=== PATIENT | male | born 1955 | race Hispanic/Latino ===

== ENCOUNTER 2018-09-14 20:15 | Emergency (ER) | payer OTHER ==
[2018-09-14 21:08] LABS: Absolute Lymphocytes (CBC) 1.1 K/uL (0.7-4.9); Basophils % 2.2 % (0-1.3); Eosinophils % 5.8 % (0-4.4); Hematocrit 33.6 % (39.6-49.0); MPV 9.9 fL (7.6-11.3); Monocytes % 9.2 % (3.3-12.3); Protime INR 1.03; RBC Red Blood Cell Count 3.63 M/uL (4.33-5.43)
[2018-09-14 21:27] LABS: Albumin 3.8 g/dL (3.4-5.0); Bilirubin Direct 0.2 mg/dL (0-0.2); Bilirubin Total 0.5 mg/dL (0.2-1.0); Magnesium 2.3 mg/dL (1.8-2.4); Potassium 3.6 mmol/L (3.5-5.1); Troponin (Emerg Dept Use Only) 0.02 ng/mL (0.0-0.045)
--- NOTE | 2018-09-14 23:00 | ER ---
Nurse's Notes [facility] Name: Alexis Urbano Age: 63 yrs Sex: Male : 1955 Arrival Date: 09/14/2018 Time: 20:16 Bed 2 Private MD: Rajendra Montoya E Diagnosis: Chest pain, unspecified;Weakness;Chronic kidney disease, stage 4 (severe) Presentation: 09/14 20:30 Presenting complaint: Patient states: My blood pressure was running high and my chest tl1 has been feeling heavy for approx 1 week. I took all my blood pressure medications before coming and some hydrocodone. Transition of care: patient was not received from another setting of care. Onset of symptoms was September 14, 2018 at 20:31. Risk Assessment: Do you want to hurt yourself or someone else? Patient reports no desire to harm self or others. Initial Sepsis Screen: Does the patient meet any 2 criteria? No. Patient's initial sepsis screen is negative. Does the patient have a suspected source of infection? No. Patient's initial sepsis screen is negative. Care prior to arrival:. 20:30 Method Of Arrival: Wheelchair tl1 20:30 Acuity: JOEL 2 tl1 Historical: - Allergies: 20:36 No Known Allergies; tl1 - Home Meds: 20:36 clonidine HCl Oral [Active]; Hydralazine Oral [Active]; Hydrocodone-Acetaminophen Oral tl1 [Active]; Zanaflex Oral [Active]; aspirin 81 mg Oral chew 1 tab once daily [Active]; Plavix Oral [Active]; - PMHx: 20:36 Diabetes - IDDM; Dialysis; ESRD; GERD; Hypertension; tl1 - Immunization history:: Adult Immunizations up to date. - Social history:: Smoking status: Patient/guardian denies using tobacco, Patient/guardian denies using alcohol, street drugs. - Ebola Screening: : Patient negative for fever greater than or equal to 101.5 degrees Fahrenheit, and additional compatible Ebola Virus Disease symptoms Patient denies exposure to infectious person Patient denies travel to an Ebola-affected area in the 21 days before illness onset. Screenin:29 Abuse screen: Denies threats or abuse. Denies injuries from another. Nutritional tl1 screening: No deficits noted. Tuberculosis screening: No symptoms or risk factors identified. Fall Risk IV access (20 points). Assessment: 20:45 General: Appears in no apparent distress. Behavior is calm, cooperative, appropriate tl1 for age. Pain: Complains of pain in back Pain does not radiate. Pain currently is 7 out of 10 on a pain scale. Quality of pain is described as aching, pressure, Pain began years ago. Is continuous. Neuro: Level of Consciousness is awake, alert, obeys commands, Oriented to person, place, time, situation. Cardiovascular: Reports chest pressure Capillary refill < 3 seconds JVD is absent Patient's skin is warm and dry. Rhythm is sinus rhythm. Respiratory: Airway is patent Trachea midline Respiratory effort is even, unlabored, Respiratory pattern is regular, Breath sounds are clear bilaterally. GI: Abdomen is non-distended, Bowel sounds present X 4 quads. Abd is soft and non tender X 4 quads. : No signs and/or symptoms were reported regarding the genitourinary system. EENT: No signs and/or symptoms were reported regarding the EENT system. 23:10 Reassessment: Patient appears in no apparent distress at this time. Patient is alert, rr5 oriented x 3, equal unlabored respirations, skin warm/dry/pink. discharge instruction given and explained without complaints made. Patient denies pain at this time. Patient states feeling better. Patient states symptoms have improved. Vital Signs: 20:32 BP 142 / 61; Pulse 51; Resp 17; Temp 98.6; Pulse Ox 97% ; Weight 77.11 kg; Height 5 ft. tl1 6 in. (167.64 cm); Pain 7/10; 21:33 BP 162 / 66; Pulse 55; Resp 14; Pulse Ox 96% on R/A; tl1 22:28 BP 157 / 60; Pulse 53; Resp 17; Pulse Ox 94% on R/A; tl1 22:55 BP 149 / 61; Pulse 53; Resp 16; Pulse Ox 94% on R/A; tl1 23:14 BP 158 / 58; Pulse 53; Resp 13; Temp 98.5; Pulse Ox 98% on R/A; Pain 0/10; rr5 20:32 Body Mass Index 27.44 (77.11 kg, 167.64 cm) tl1 ED Course: 20:16 Patient arrived in ED. do 20:16 Rajendra Montoya MD is Private Physician. do 20:30 Ksenia Nguyen, RN is Primary Nurse. tl1 20:30 Germain Trujillo MD is Attending Physician. gs 20:32 Triage completed. tl1 20:37 Arm band placed on right wrist. EKG completed in triage. Results shown to MD. tl1 20:40 surveillance monitor on. Pulse ox on. NIBP on. rr5 20:40 Patient has correct armband on for positive identification. Placed in gown. Bed in low rr5 position. Call light in reach. Side rails up X2. 20:45 Missed attempt(s): 20 gauge in right forearm. lp1 20:50 Inserted saline lock: 20 gauge in right antecubital area, using aseptic technique. lp1 Blood collected. 21:00 XRAY Chest (1 view) In Process Unspecified. EDMS 22:59 Jimmy Zuniga MD is Referral Physician. gs 23:15 No provider procedures requiring assistance completed. IV discontinued, intact, rr5 bleeding controlled, No redness/swelling at site. Pressure dressing applied. Patient maintains SpO2 saturation greater than 95% on room air. Administered Medications: No medications were administered Outcome: 22:59 Discharge ordered by . gs 23:15 Discharged to home ambulatory, with crutches. rr5 23:15 Condition: stable 23:15 Discharge instructions given to patient, Instructed on discharge instructions, follow up and referral plans. Demonstrated understanding of instructions, follow-up care. 23:18 Patient left the ED. rr5 Signatures: Dispatcher [employer] EDW[place] Wendy Smith, ABBIE LEIVA lp1 Ksenia Nguyen, RN RN tl1 Amy Cutler Gregory, MD MD Ryan Reynolds, RN RN rr5
--- NOTE | 2018-09-14 23:00 | EDPHYS ---
Physician Documentation [facility] Name: Alexis Urbano Age: 63 yrs Sex: Male : 1955 Arrival Date: 09/14/2018 Time: 20:16 Bed 2 Private MD: Rajendra Montoya E ED Physician Germain Trujillo HPI: 09/14 22:31 This 63 yrs old Male presents to ER via Wheelchair with complaints of Chest gs Pain, High Blood Pressure. 22:31 The patient or guardian reports chest pain that is located primarily in the anterior gs chest wall. Onset: gradually, 2 week(s) ago. The pain does not radiate. Associated signs and symptoms: Pertinent negatives: shortness of breath. The chest pain is described as dull. Duration: The patient or guardian reports multiple episodes, that wax and wane, with no pattern. Modifying factors: The symptoms are alleviated by nothing. the symptoms are aggravated by nothing. Severity of pain: At its worst the pain was mild in the emergency department the pain has resolved. The patient has experienced similar episodes in the past, several times. Historical: - Allergies: 20:36 No Known Allergies; tl1 - Home Meds: 20:36 clonidine HCl Oral [Active]; Hydralazine Oral [Active]; Hydrocodone-Acetaminophen Oral tl1 [Active]; Zanaflex Oral [Active]; aspirin 81 mg Oral chew 1 tab once daily [Active]; Plavix Oral [Active]; - PMHx: 20:36 Diabetes - IDDM; Dialysis; ESRD; GERD; Hypertension; tl1 - Immunization history:: Adult Immunizations up to date. - Social history:: Smoking status: Patient/guardian denies using tobacco, Patient/guardian denies using alcohol, street drugs. - Ebola Screening: : Patient negative for fever greater than or equal to 101.5 degrees Fahrenheit, and additional compatible Ebola Virus Disease symptoms Patient denies exposure to infectious person Patient denies travel to an Ebola-affected area in the 21 days before illness onset. ROS: 22:31 All other systems are negative. gs Exam: 22:31 Head/Face: Normocephalic, atraumatic. Eyes: Pupils equal round and reactive to light, gs extra-ocular motions intact. Lids and lashes normal. Conjunctiva and sclera are non-icteric and not injected. Cornea within normal limits. Periorbital areas with no swelling, redness, or edema. ENT: Nares patent. No nasal discharge, no septal abnormalities noted. Tympanic membranes are normal and external auditory canals are clear. Oropharynx with no redness, swelling, or masses, exudates, or evidence of obstruction, uvula midline. Mucous membranes moist. Neck: Trachea midline, no thyromegaly or masses palpated, and no cervical lymphadenopathy. Supple, full range of motion without nuchal rigidity, or vertebral point tenderness. No Meningismus. Chest/axilla: Normal chest wall appearance and motion. Nontender with no deformity. No lesions are appreciated. Cardiovascular: Regular rate and rhythm with a normal S1 and S2. No gallops, murmurs, or rubs. Normal PMI, no JVD. No pulse deficits. Respiratory: Lungs have equal breath sounds bilaterally, clear to auscultation and percussion. No rales, rhonchi or wheezes noted. No increased work of breathing, no retractions or nasal flaring. Abdomen/GI: Soft, non-tender, with normal bowel sounds. No distension or tympany. No guarding or rebound. No evidence of tenderness throughout. Back: No spinal tenderness. No costovertebral tenderness. Full range of motion. Skin: Warm, dry with normal turgor. Normal color with no rashes, no lesions, and no evidence of cellulitis. MS/ Extremity: Pulses equal, no cyanosis. Neurovascular intact. Full, normal range of motion. Neuro: Awake and alert, GCS 15, oriented to person, place, time, and situation. Cranial nerves II-XII grossly intact. Motor strength 5/5 in all extremities. Sensory grossly intact. Cerebellar exam normal. Normal gait. 22:31 Constitutional: The patient appears alert, awake. 22:31 ECG was reviewed by the Attending Physician. Vital Signs: 20:32 BP 142 / 61; Pulse 51; Resp 17; Temp 98.6; Pulse Ox 97% ; Weight 77.11 kg; Height 5 ft. tl1 6 in. (167.64 cm); Pain 7/10; 21:33 BP 162 / 66; Pulse 55; Resp 14; Pulse Ox 96% on R/A; tl1 22:28 BP 157 / 60; Pulse 53; Resp 17; Pulse Ox 94% on R/A; tl1 22:55 BP 149 / 61; Pulse 53; Resp 16; Pulse Ox 94% on R/A; tl1 23:14 BP 158 / 58; Pulse 53; Resp 13; Temp 98.5; Pulse Ox 98% on R/A; Pain 0/10; rr5 20:32 Body Mass Index 27.44 (77.11 kg, 167.64 cm) tl1 MDM: 20:39 Patient medically screened. 22:31 Differential diagnosis: abnormal EKG, acute myocardial infarction, coronary artery gs disease. Data reviewed: vital signs, nurses notes, old medical records, lab test result(s), EKG, radiologic studies. 09/14 20:39 Order name: Basic Metabolic Panel; Complete Time: 22:00 09/14 20:39 Order name: CBC with Diff; Complete Time: 22:00 09/14 20:39 Order name: LFT's; Complete Time: 22:00 09/14 20:39 Order name: Magnesium; Complete Time: 22:00 09/14 20:39 Order name: NT PRO-BNP; Complete Time: 22:00 09/14 20:39 Order name: PT-INR; Complete Time: 22:00 09/14 20:39 Order name: Troponin (emerg Dept Use Only); Complete Time: 22:00 09/14 20:39 Order name: XRAY Chest (1 view) 07 20:39 Order name: EKG; Complete Time: 20:40 09/14 20:39 Order name: Cardiac monitoring; Complete Time: 20:58 09/14 20:39 Order name: EKG - Nurse/Tech; Complete Time: 20:58 09/14 20:39 Order name: IV Saline Lock; Complete Time: 20:58 09/14 20:39 Order name: Labs collected and sent; Complete Time: 20:58 09/14 20:39 Order name: O2 Per Protocol; Complete Time: 20:58 09/14 20:39 Order name: O2 Sat Monitoring; Complete Time: 20:58 gs EC:31 Rate is 52 beats/min. Rhythm is regular. MN interval is normal. QRS interval is normal. T waves are Inverted in leads I, aVL, V6. Clinical impression: Abnormal EKG without significant change. Interpreted by me. Administered Medications: No medications were administered Disposition: 09/14/18 22:59 Discharged to Home. Impression: Chest pain, unspecified, Weakness, Chronic kidney disease, stage 4 (severe). - Condition is Stable. - Discharge Instructions: Nonspecific Chest Pain. - Medication Reconciliation Form, Thank You Letter, Antibiotic Education, Prescription Opioid Use form. - Follow up: Private Physician; When: 2 - 3 days; Reason: Re-evaluation by your physician. Follow up: Jimmy Zuniga MD; When: 2 - 3 days; Reason: Re-evaluation by your physician. Signatures: Dispatcher [employer] EDMS Ksenia Nguyen RN RN tl1 Germain Trujillo MD MD Ryan Reynolds RN RN rr5 Corrections: (The following items were deleted from the chart) 23:18 22:59 09/14/2018 22:59 Discharged to Home. Impression: Chest pain, unspecified; rr5 Weakness; Chronic kidney disease, stage 4 (severe). Condition is Stable. Forms are Medication Reconciliation Form, Thank You Letter, Antibiotic Education, Prescription Opioid Use. Follow up: Private Physician; When: 2 - 3 days; Reason: Re-evaluation by your physician. Follow up: Jimmy Zuniga; When: 2 - 3 days; Reason: Re-evaluation by your physician. john
[2018-09-14 23:29] VITALS: TEMP 98.6
[2018-09-14 23:32] VITALS: O2SAT 94
[2018-09-14 23:35] VITALS: BP 149/61
--- NOTE | 2018-09-15 09:58 | EKG ---
Test Date: 2018-09-14 Test Time: 20:22:58 Rd Project Manager: [place] MEASUREMENT RESULTS: Intervals: Rate: 52 IL: 178 QRSD: 88 QT: 486 QTc: 451 Sawyer: P: 19 IL: 178 QRS: -16 T: 174 INTERPRETIVE STATEMENTS: Sinus bradycardia Possible Left atrial enlargement ST & T wave abnormality, consider lateral ischemia Abnormal ECG Compared to ECG 08/31/2015 16:57:25 ST (T wave) deviation now present Possible ischemia now present Sinus rhythm no longer present Electronically Signed On 09-15-18 09:56:50 CDT by Jimmy Znuiga
--- NOTE | 2018-09-15 11:21 | RAD REPORT ---
EXAM DESCRIPTION: RAD - Chest Single View - 09/14/2018 9:03 pm CLINICAL HISTORY: CHEST PAIN Chest pain. COMPARISON: <Comparisons> FINDINGS: Portable technique limits examination quality. The lungs are grossly clear. The heart is mildly enlarged in size. No displaced fractures. IMPRESSION: No acute intrathoracic process suspected.
== END 2018-09-14 23:18 | disposition home or self-care (01) ==
LOC: ER 20:15
DX: N18.4 Chronic kidney disease, stage 4 (severe) (principal); R53.1 Weakness; E11.9 Type 2 diabetes mellitus without complications; I10 Essential (primary) hypertension; Z99.2 Dependence on renal dialysis
CPT/HCPCS: 36415; 71045; 80048; 80076; 83735; 83880; 84484; 85025; 85610; 93005; 99285

== ENCOUNTER 2018-09-25 19:05 | Observation (INO) | payer OTHER ==
--- OUTSIDE RECORDS SUMMARY | 2018-09-25 19:08 | XMS REPORT | Clinical Summary ---
:1955 Author Organization [facility] Address [address] [place] [address] Care Team Providers Name Role Phone Rajendra Montoya Primary Care Provider Allergies Active Allergy Reactions Severity Noted Date Comments Crab Itching 03/31/2015 Itching in mouth, pt states okay with shrimp/crawfish Medications Medication Sig Dispensed Refills Start Date End Date Status cloNIDine HCl Take 0.2 mg by 0 Active (CATAPRES) 0.2 MG mouth 2 (two) tablet times daily . HYDROcodone-acetaminoph Take 1 tablet by 0 Active en (NORCO 10-325) mouth every 6 10-325 mg per tablet (six) hours as needed for Pain. tiZANidine (ZANAFLEX) 4 Take 4 mg by 0 Active MG tablet mouth 2 (two) times daily. gabapentin (NEURONTIN) Take 100 mg by 0 Active 300 MG capsule mouth 2 (two) times daily . hydrALAZINE Take 2 tablets 0 04/11/2016 Active (APRESOLINE) 25 MG (50 mg total) by tablet mouth 3 (three) times daily. pantoprazole (PROTONIX) Take 1 tablet (40 30 tablet 1 04/11/2016 Active 40 MG tablet mg total) by mouth daily. clopidogrel (PLAVIX) 75 Take 75 mg by 0 Active mg tablet mouth daily. atorvastatin (LIPITOR) Take 20 mg by 0 06/29/2017 Active 20 MG tablet mouth. amLODIPine (NORVASC) 10 Take 10 mg by 0 Active MG tablet mouth. lactulose (CHRONULAC) TAKE 20 GRAM 2 05/29/2018 Active 10 gram/15 mL solution (30ML) BY MOUTH ONCE A DAY NEEDED zolpidem (AMBIEN) 10 mg TAKE 1 TABLET 2 04/26/2018 Active tablet ORALLY AT BEDTIME NEEDED aspirin 81 MG EC tablet Take 81 mg by 0 Active mouth daily. Active Problems Patient Care Coordination Note PCP- Rajendra ALONZO- Dr. Linares [phone] Problem Noted Date Acute respiratory failure with hypoxia 04/03/2016 Pneumonia, unspecified organism 04/03/2016 Uncontrolled hypertension 04/03/2016 Cranial neuropathies, multiple 04/02/2016 Diplopia 03/29/2016 Hypertension 03/29/2016 Type 2 diabetes mellitus with renal complication 03/29/2016 Chronic hepatitis C virus infection 07/23/2015 Last Assessment & Plan: Lab studies confirm that he has hepatitis C. Genotype is unknown and he is treatment-naive. Review of his labs and imaging suggest that he does not have advanced liver disease. Decision to treat will be based on his genotype. Zepatier has been approved for treatment of GT 1 and 4 HCV in patients with ESRD/HD. Will check genotype and NS5A reflex resistance testing today. Will obtain liver biopsy for our review. No further imaging needed at this time. Immunity status testing 07/23/2015 Last Assessment & Plan: CDC recommends that all patients with chronic liver disease, regardless of etiology, should be immunized to prevent hepatitis A and hepatitis B if they are not already immune. This should be done in ad dition to other age-appropriate vaccines. He is not immune to hepatitis B- the complete hepatitis B vaccination series is recommended. Unknown immunity to hepatitis A- will test for immunity today. ESRD (end stage renal disease) 07/23/2015 Last Assessment & Plan: He has ESRD on HD secondary to diabetic nephropathy. He is listed for renal transplant. He does not have findings consistent with advanced liver disease- no indication for dual organ transplant at this time. He continues to follow with nephrology. Metabolic syndrome 07/23/2015 Last Assessment & Plan: With T2DM and hypertension, he meets criteria for metabolic syndrome. Management per his PCP. Encounters Date Type Specialty Care Team Description 08/15/2018 Documentation Transplant Belinda Leal 08/15/2018 Telephone Transplant Belinda Leal Appointment 06/05/2018 Evaluation Transplant Vanessa Tinoco Awaiting transplantation of MD Rayne kidney (Primary Dx) 06/05/2018 Follow-Up Transplant Vanessa Tinoco MD 05/29/2018 Documentation Transplant Sangita Hartman RN 05/10/2018 Telephone Transplant Sangita Hartman RN Waitlist Maintenance 03/10/2018 Orders Only Transplant Sangita Hartman RN Awaiting transplantation of kidney (Primary Dx) 02/16/2018 Documentation Transplant Sangita Hartman RN 01/09/2018 Evaluation Transplant SondraRaymondLazaroSalVanessa ESRD (end stage renal Rayne, disease) (HCC) (Primary Dx) Antoine Garza II, MD 01/07/2018 Orders Only Hepatology Bertha Ramirez PA-C 01/06/2018 Orders Only Hepatology Jak Canales Chronic hepatitis C without hepatic coma (HCC) 01/03/2018 Orders Only Hepatology Bean Morales Chronic hepatitis C without MD hepatic coma (HCC) (Primary Dx) 12/29/2017 Telephone Transplant Sangita Hartman RN Waitlist Maintenance; Appointment 12/20/2017 Telephone Transplant Sangita Hartman RN Waitlist Maintenance 12/19/2017 Documentation Transplant Sangita Hartman RN ESRD (end stage renal disease) (HCC) (Primary Dx); Patient awaiting renal transplant 12/19/2017 Orders Only Transplant Wayne Jhaveri MD 12/19/2017 Telephone Transplant Sangita Hartman RN Waitlist Maintenance 10/23/2017 Telephone Transplant Sangita Hartman RN Waitlist Maintenance 10/17/2017 Telephone Transplant Belinda Leal Appointment after 09/24/2017 Immunizations Name Dates Previously Given Next Due PPD Test 04/03/2016 Social History Tobacco Use Types Packs/Day Years Used Date Former Smoker Tobacco Cessation: Counseling Given: Yes Comments: Quit 2005 Alcohol Use Drinks/Week oz/Week Comments No Quit drinking 2005; social drinker Sex Assigned at Date Recorded Not on file Job Start Date Occupation Industry Not on file Not on file Not on file Travel History Travel Start Travel End No recent travel history available. Last Filed Vital Signs Vital Sign Reading Time Taken Blood Pressure 193/87 06/05/2018 10:08 AM CDT Pulse 72 06/05/2018 10:08 AM CDT Temperature 37.1 C (98.7 F) 06/05/2018 10:08 AM CDT Respiratory Rate 20 06/05/2018 10:08 AM CDT Oxygen Saturation - - Inhaled Oxygen Concentration - - Weight 78.8 kg (173 lb 12.8 oz) 06/05/2018 10:08 AM CDT Height 167.6 cm (5' 6") 06/05/2018 10:08 AM CDT Body Mass Index 28.05 06/05/2018 10:08 AM CDT Plan of Treatment Not on file Procedures Procedure Name Priority Date/Time Associated Diagnosis Comments FLOW PRA CLASS II Routine 06/19/2018 11:17 Awaiting Results for this WITH REFLEX TO AM CDT transplantation of procedure are in ANTIBODY SPECIFICITY kidney the results section. FLOW PRA CLASS I Routine 06/19/2018 11:17 Awaiting Results for this WITH REFLEX TO AM CDT transplantation of procedure are in ANTIBODY SPECIFICITY kidney the results section. BASIC METABOLIC Routine 01/15/2018 12:50 Chronic hepatitis C Results for this PANEL (7) PM SENIOR ELECTRICAL ENGINEER without hepatic coma procedure are in (HCC) the results section. HEPATIC FUNCTION Routine 01/15/2018 12:50 Chronic hepatitis C Results for this PANEL PM SENIOR ELECTRICAL ENGINEER without hepatic coma procedure are in (HCC) the results section. CBC W/PLT COUNT & Routine 01/15/2018 12:50 Chronic hepatitis C Results for this AUTO DIFFERENTIAL PM SENIOR ELECTRICAL ENGINEER without hepatic coma procedure are in (HCC) the results section. PROTHROMBIN TIME/INR Routine 01/15/2018 12:50 Chronic hepatitis C Results for this PM SENIOR ELECTRICAL ENGINEER without hepatic coma procedure are in (HCC) the results section. ALPHA FETOPROTEIN Routine 01/15/2018 12:50 Chronic hepatitis C Results for this (AFP), TUMOR MARKER PM SENIOR ELECTRICAL ENGINEER without hepatic coma procedure are in (HCC) the results section. HEPATITIS C PCR, Routine 01/15/2018 12:50 Chronic hepatitis C Results for this QUANTITATIVE PM SENIOR ELECTRICAL ENGINEER without hepatic coma procedure are in (HCC) the results section. PSA Routine 01/09/2018 2:35 ESRD (end stage renal Results for this PM SENIOR ELECTRICAL ENGINEER disease) (HCC) procedure are in Patient awaiting renal the results transplant section. HEPATITIS B SURFACE Routine 01/09/2018 2:35 ESRD (end stage renal Results for this ANTIBODY PM SENIOR ELECTRICAL ENGINEER disease) (HCC) procedure are in Patient awaiting renal the results transplant section. FLOW PRA CLASS II Routine 12/19/2017 2:22 ESRD (end stage renal Results for this WITH REFLEX TO PM CDT disease) (HCC) procedure are in ANTIBODY SPECIFICITY Patient awaiting renal the results transplant section. FLOW PRA CLASS I Routine 12/19/2017 2:22 ESRD (end stage renal Results for this WITH REFLEX TO PM CDT disease) (HCC) procedure are in ANTIBODY SPECIFICITY Patient awaiting renal the results transplant section. 2D ECHO W/ DOPPLER Routine 11/23/2017 (CW/PW/COLOR) NM MYOCARDIAL Routine 11/23/2017 PERFUSION SPECT, PHARM([facility]) after 09/24/2017 Results FLOW PRA CLASS II WITH REFLEX TO ANTIBODY SPECIFICITY (06/19/2018 11:17 AM CDT) Only the most recent of2 resultswithin the time period is included. Flow Class II Percent Positive 0 [facility] Flow Class Report Comments [facility] Specimen Blood Narrative Performed At Disclaimer: [facility] This test was developed and its performance characteristics determined by the [facility]. It has not been cleared or approved by the U.S. Food and Drug Administration. The FDA has determined that such clearance or approval is not necessary. This test is used for clinical purposes. It should not be regarded as investigational or for research. This laboratory is certified under the Clinical Laboratory Improvement Amendments of 1988 (CLIA-88) as qualified to perform high complexity clinical laboratory testing. Performing Organization Address City/[facility] Phone Number [facility] ONE Tian Bhatt, MS: [place] [address] [id number], CLIA#[id number] CAP#[id number] UNOS#[id number] FLOW PRA CLASS I WITH REFLEX TO ANTIBODY SPECIFICITY (06/19/2018 11:17 AM CDT) Only the most recent of2 resultswithin the time period is included. Flow Class I Percent Positive 0 [facility] Flow Class Report Comments [facility] Specimen Blood Narrative Performed At Disclaimer: [facility] This test was developed and its performance characteristics determined by the [facility]. It has not been cleared or approved by the U.S. Food and Drug Administration. The FDA has determined that such clearance or approval is not necessary. This test is used for clinical purposes. It should not be regarded as investigational or for research. This laboratory is certified under the Clinical Laboratory Improvement Amendments of 1988 (CLIA-88) as qualified to perform high complexity clinical laboratory testing. Performing Organization Address City/State/[facility] Phone Number [facility] ONE Tian Nova, [place]: [place] [address] [id number], CLIA#[id number] CAP#[id number] UNOS#[id number] Alpha fetoprotein (AFP), tumor marker (01/15/2018 12:50 PM SENIOR ELECTRICAL ENGINEER) Alpha-Fetoprotein 3.0 <6.1 ng/mL [facility] Comment: This test was performed using the [place] chemiluminescent method. Values obtained from different assay methods cannot be used interchangeably. AFP levels, regardless of value, should not be interpreted as absolute evidence of the presence or absence of disease. Specimen Blood Narrative Performed At FASTING:NO [facility] FASTING: NO Resulting Agency Comment Performing Organization Information: Site ID: [id number] Name: [facility] Address: [address] [place] [phone] Director: Dr. Stephen Juarez Performing Organization Address [facility] Hospitalconv Phone Number [facility] [address] [place] [address] [facility] Hepatitis C RNA, Quantitative (01/15/2018 12:50 PM SENIOR ELECTRICAL ENGINEER) Hep C Pcr, Quant <15 NOT DETECTED NOT DETECTED IU/mL [facility] HCV RNA, QUANTITATIVE <1.18 NOT DETECTED NOT DETECTED Log [facility] REAL TIME PCR ([facility]) IU/mL Comment: [facility] Comment: This test was performed using Real-Time Polymerase Chain Reaction. Reportable Range: 15 IU/mL to 100,000,000 IU/mL (1.18 Log IU/mL to 8.00 Log IU/mL). The analytical performance characteristics of this assay have been determined by [facility]. The modifications have not been cleared or approved by the FDA. This assay has been validated pursuant to the CLIA regulations and is used for clinical purposes. For more information on this test, go to: http://education.[employer]/faq/UJB14g0 (This link is being provided for informational/ educational purposes only.) Specimen Blood Narrative Performed At FASTING:NO [facility] FASTING: NO Resulting Agency Comment Performing Organization Information: Site ID: [id number] Name: [facility] Address: [address] [place] [phone] Director: Dr. Stephen Juarez Performing Organization Address [facility] Phone Number [facility] [address] [place] [address] [facility] Pro-time/INR (01/15/2018 12:50 PM SENIOR ELECTRICAL ENGINEER) INR 1.0 [facility] Comment: Reference Range 0.9-1.1 Moderate-intensity Warfarin Therapy 2.0-3.0 Higher-intensity Warfarin Therapy 3.0-4.0 PT 10.4 9.0 - 11.5 sec [facility] Comment: For more information on this test, go to: http://education.[employer]/faq/ORS970 Specimen Blood Narrative Performed At FASTING:NO [facility] FASTING: NO Resulting Agency Comment Performing Organization Information: Site ID: [id number] Name: [facility] Address: [address] [place] [phone] Director: Natali Jesus Performing Organization Address City/State/Zipcode Phone Number [facility] [address] [place] [address] [facility] CBC with platelet count + automated diff (01/15/2018 12:50 PM SENIOR ELECTRICAL ENGINEER) WBC 5.2 3.8 - 10.8 Thousand/uL [facility] RBC 3.33 (L) 4.20 - 5.80 Million/uL [facility] Hemoglobin 10.1 (L) 13.2 - 17.1 g/dL [facility] Hematocrit 30.6 (L) 38.5 - 50.0 % [facility] MCV 91.9 80.0 - 100.0 fL [facility] MCH 30.3 27.0 - 33.0 pg [facility] MCHC 33.0 32.0 - 36.0 g/dL [facility] RDW 13.1 11.0 - 15.0 % [facility] Platelets 155 140 - 400 Thousand/uL [facility] MPV 11.8 7.5 - 12.5 fL [facility] # Neutros 3,396 1,500 - 7,800 cells/uL [facility] # Lymphs 1,201 850 - 3,900 cells/uL [facility] # Monos 348 200 - 950 cells/uL [facility] # Eos 198 15 - 500 cells/uL [facility] # Baso 57 0 - 200 cells/uL [facility] % Neutros 65.3 % [facility] % Lymphs 23.1 % [facility] % Monos 6.7 % [facility] % Eos 3.8 % [facility] % Baso 1.1 % [facility] Specimen Blood Narrative Performed At FASTING:NO [facility] FASTING: NO Resulting Agency Comment Performing Organization Information: Site ID: [id number] Name: [facility] Address: [address] [place] [phone] Director: Natali Jesus Performing Organization Address [facility] Phone Number [facility] [address] [place] [address] [facility] Hepatic function panel (01/15/2018 12:50 PM SENIOR ELECTRICAL ENGINEER) Protein, Total, Serum 7.7 6.1 - 8.1 g/dL [facility] Albumin 4.4 3.6 - 5.1 g/dL [facility] GLOBULIN (QUEST) 3.3 1.9 - 3.7 g/dL (calc) [facility] Albumin Globulin Ratio 1.3 1.0 - 2.5 (calc) [facility] Bilirubin, Total 0.5 0.2 - 1.2 mg/dL [facility] Bilirubin, Direct 0.1 < OR=0.2 mg/dL [facility] Bilirubin, Indirect 0.4 0.2 - 1.2 mg/dL (calc) [facility] Alkaline Phosphatase, S 194 (H) 40 - 115 U/L [facility] AST (SGOT) 14 10 - 35 U/L [facility] ALT (SGPT) 14 9 - 46 U/L [facility] Specimen Blood Narrative Performed At FASTING:NO [facility] FASTING: NO Resulting Agency Comment Performing Organization Information: Site ID: [id number] Name: [facility] Address: [address] [place] [phone] Director: Natali Jesus Performing Organization Address [facility] Phone Number [facility] [address] [place] [address] [facility] Basic Metabolic Panel (01/15/2018 12:50 PM SENIOR ELECTRICAL ENGINEER) Glucose 190 (H) 65 - 139 mg/dL [facility] Comment: Non-fasting reference interval BUN 14 7 - 25 mg/dL [facility] Creatinine 3.24 (H) 0.70 - 1.25 mg/dL [facility] Comment: For patients >49 years of age, the reference limit for Creatinine is approximately 13% higher for people identified as -Somali. eGFR If NonAfricn Am 20 (L) > OR=60 mL/min/1.73m2 [facility] eGFR If Africn Am 23 (L) > OR=60 mL/min/1.73m2 [facility] BUN/Creatinine Ratio 4 (L) 6 - 22 (calc) [facility] Sodium 143 135 - 146 mmol/L [facility] Potassium, Serum 4.1 3.5 - 5.3 mmol/L [facility] Chloride 98 98 - 110 mmol/L [facility] Carbon Dioxide, Total 34 (H) 20 - 32 mmol/L [facility] Calcium, Serum 8.8 8.6 - 10.3 mg/dL [facility] Specimen Blood Narrative Performed At FASTING:NO [facility] FASTING: NO Resulting Agency Comment Performing Organization Information: Site ID: [id number] Name: [facility] Address: [address] [place] [phone] Director: Naatli Jesus Performing Organization Address [facility] Phone Number [facility] [address] [place] [address] [facility] Hepatitis B surface antibody (01/09/2018 2:35 PM SENIOR ELECTRICAL ENGINEER) Hep B S Ab 612.9 (H) <8.0 mIU/mL [facility] Specimen Blood Performing Organization Address [facility] Phone Number [address] [address] [place] PSA (01/09/2018 2:35 PM SENIOR ELECTRICAL ENGINEER) PSA 0.8 0.0 - 4.0 ng/mL [facility] Specimen Blood Performing Organization Address [facility] Phone Number [address] [address] [place] 2D Echo W/Doppler(CW/PW/Color) (11/23/2017) Narrative Performed At NM myocardial perfusion SPECT,pharm(LEXISCAN) (11/23/2017) Narrative Performed At after 09/24/2017 Insurance Payer Benefit Plan / Group Subscriber ID Type Phone Address [employer] O ALL xxxxxxxxx Maps Contracted Advance Directives For more information, please contact:[address] [phone] Code Status Date Activated Date Inactivated Comments Full Code 03/30/2016 2:10 AM 04/11/2016 8:24 PM This code status was determined by: Patient Full Code 03/31/2015 10:13 AM 04/01/2015 12:55 AM This code status was determined by: Patient
--- OUTSIDE RECORDS SUMMARY | 2018-09-25 19:08 | XMS REPORT ---
:1955 [facility] Address [address] [place] [address] Care Team Providers Name Role Phone JOHN RUSSELL Unavailable Unavailable GIGI PISANO Unavailable Unavailable ENRRIQUE KHALIL Unavailable Unavailable COLE DANIELSON Unavailable Unavailable BENNY KERN Unavailable Unavailable Problems This patient has no known problems. Allergies, Adverse Reactions, Alerts This patient has no known allergies or adverse reactions. Medications This patient has no known medications. Results Test Description Test Time Test Comments Text Results Atomic Results Result Comments PSA 2018-01-09 17:11:00 Test Item Value Reference Range Comments PROSTATE SPECIFIC ANTIGEN (BEAKER) (test jxzk=011) 0.8 ng/mL 0.0-4.0 HEPATITIS B SURFACE [id number] 17:11:00 Test Item Value Reference Range Comments HEPATITIS B SURFACE ANTIBODY (BEAKER) (test 612.9 mIU/mL <8.0 rftb=209) PROTHROMBIN TIME/[id number] 14:59:00 Test Item Value Reference Range Comments PROTIME (BEAKER) (test ogle=459) 15.6 seconds 11.7-14.7 INR (BEAKER) (test rnvd=870) 1.2 <=5.9 RECOMMENDED COUMADIN/WARFARIN INR THERAPY RANGESSTANDARD DOSE: 2.0 - 3.0 Includes: PROPHYLAXIS forvenous thrombosis, systemic embolization; TREATMENT for venous thrombosis and/or pulmonary embolus.HIGH RISK: Target INR is 2.5-3.5 for patients with mechanical heart valves.BASIC METABOLIC [id number] 14:58: 00 Test Item Value Reference Range Comments SODIUM (BEAKER) (test 137 meq/L 136-145 hwrt=300) POTASSIUM (BEAKER) (test 4.7 meq/L 3.5-5.1 izcr=534) CHLORIDE (BEAKER) (test 97 meq/L 98-107 otxi=899) CO2 (BEAKER) (test 30 meq/L 22-29 wlrh=623) BLOOD UREA NITROGEN 31 mg/dL 7-21 (BEAKER) (test xmbj=110) CREATININE (BEAKER) (test 5.68 mg/dL 0.57-1.25 rhrb=843) GLUCOSE RANDOM (BEAKER) 343 mg/dL 70-105 (test gkjb=363) CALCIUM (BEAKER) (test 8.5 mg/dL 8.4-10.2 nqxg=749) EGFR (BEAKER) (test 10 mL/min/1.73 sq m ESTIMATED GFR IS NOT vngf=3517) ACCURATE CREATININE CLEARANCE IN PREDICTING GLOMERULAR FILTRATION RATE. ESTIMATED GFR IS NOT APPLICABLE FOR DIALYSIS PATIENTS. HEPATIC FUNCTION [id number] 14:53:00 Test Item Value Reference Range Comments TOTAL PROTEIN (BEAKER) (test zsgm=222) 7.1 gm/dL 6.0-8.3 ALBUMIN (BEAKER) (test lync=4489) 3.2 g/dL 3.5-5.0 BILIRUBIN TOTAL (BEAKER) (test vhoi=692) 0.5 mg/dL 0.2-1.2 BILIRUBIN DIRECT (BEAKER) (test oong=159) 0.2 mg/dL 0.1-0.5 ALKALINE PHOSPHATASE (BEAKER) (test gpda=174) 124 U/L 40-150 AST (SGOT) (BEAKER) (test eruv=300) 13 U/L 5-34 ALT (SGPT) (BEAKER) (test xugt=685) 7 U/L 6-55 CBC W/PLT COUNT & AUTO [id number] 14:19:00 Test Item Value Reference Range Comments WHITE BLOOD CELL COUNT (BEAKER) (test qvml=155) 8.1 K/ L 3.5-10.5 RED BLOOD CELL COUNT (BEAKER) (test uxzi=447) 3.54 M/ L 4.63-6.08 HEMOGLOBIN (BEAKER) (test ohuh=293) 10.2 GM/DL 13.7-17.5 HEMATOCRIT (BEAKER) (test vqzf=683) 33.2 % 40.1-51.0 MEAN CORPUSCULAR VOLUME (BEAKER) (test aboh=010) 93.8 fL 79.0-92.2 MEAN CORPUSCULAR HEMOGLOBIN (BEAKER) (test 28.8 pg 25.7-32.2 robp=194) MEAN CORPUSCULAR HEMOGLOBIN CONC (BEAKER) (test 30.7 GM/DL 32.3-36.5 puaz=625) RED CELL DISTRIBUTION WIDTH (BEAKER) (test 14.4 % 11.6-14.4 bjoo=281) PLATELET COUNT (BEAKER) (test axhs=875) 253 K/CU MM 150-450 MEAN PLATELET VOLUME (BEAKER) (test hksc=525) 10.5 fL 9.4-12.4 NUCLEATED RED BLOOD CELLS (BEAKER) (test 0 /100 WBC 0-0 ravq=665) NEUTROPHILS RELATIVE PERCENT (BEAKER) (test 64 % cvbr=831) LYMPHOCYTES RELATIVE PERCENT (BEAKER) (test 25 % vfdd=060) MONOCYTES RELATIVE PERCENT (BEAKER) (test 8 % iysx=479) EOSINOPHILS RELATIVE PERCENT (BEAKER) (test 2 % spaf=516) BASOPHILS RELATIVE PERCENT (BEAKER) (test 1 % rpzd=830) NEUTROPHILS ABSOLUTE COUNT (BEAKER) (test 5.20 K/ L 1.78-5.38 rxpu=175) LYMPHOCYTES ABSOLUTE COUNT (BEAKER) (test 1.98 K/ L 1.32-3.57 otrh=944) MONOCYTES ABSOLUTE COUNT (BEAKER) (test 0.62 K/ L 0.30-0.82 mwue=703) EOSINOPHILS ABSOLUTE COUNT (BEAKER) (test 0.12 K/ L 0.04-0.54 hgbc=170) BASOPHILS ABSOLUTE COUNT (BEAKER) (test 0.11 K/ L 0.01-0.08 wokm=040) IMMATURE GRANULOCYTES-RELATIVE PERCENT (BEAKER) 1 % 0-1 (test inqk=5689) FLOW PRA CLASS I AND [id number] 12:02:00 Test Item Value Reference Range Comments DATE OF SERUM (BEAKER) (test tlby=0837) [id number] SERUM # (BEAKER) (test pkfw=1223) [id number] FLOW PRA CLASS I AND II (test arge=1341) See Scanned Report HEPATITIS B SURFACE [id number] 13:18:00 Test Item Value Reference Range Comments HEPATITIS B SURFACE ANTIBODY (BEAKER) (test < mIU/mL <8.0 bbsn=585) [id number] 13:08:00 Test Item Value Reference Range Comments PROSTATE SPECIFIC ANTIGEN (BEAKER) (test yqae=701) 0.9 ng/mL 0.0-4.0 FLOW PRA CLASS I AND [id number] 16:00:00 Test Item Value Reference Range Comments DATE OF SERUM (BEAKER) (test oprn=3611) [id number] SERUM # (BEAKER) (test oqdu=1130) [id number] FLOW PRA CLASS I AND II (test ozgm=4239) See Scanned Report BASIC METABOLIC [id number] 15:51:00 Test Item Value Reference Range Comments SODIUM (BEAKER) (test 135 meq/L 136-145 sbdq=316) POTASSIUM (BEAKER) (test 4.5 meq/L 3.5-5.1 jfkn=719) CHLORIDE (BEAKER) (test 92 meq/L 98-107 cxvg=995) CO2 (BEAKER) (test 27 meq/L 22-29 slfw=429) BLOOD UREA NITROGEN 26 mg/dL 7-21 (BEAKER) (test kpwl=914) CREATININE (BEAKER) (test 5.08 mg/dL 0.57-1.25 wyhb=253) GLUCOSE RANDOM (BEAKER) 296 mg/dL 70-105 (test sczh=192) CALCIUM (BEAKER) (test 8.7 mg/dL 8.4-10.2 dumg=888) EGFR (BEAKER) (test 12 mL/min/1.73 sq m ESTIMATED GFR IS NOT zhoi=1995) ACCURATE CREATININE CLEARANCE IN PREDICTING GLOMERULAR FILTRATION RATE. ESTIMATED GFR IS NOT APPLICABLE FOR DIALYSIS PATIENTS. HEPATIC FUNCTION [id number] 15:48:00 Test Item Value Reference Range Comments TOTAL PROTEIN (BEAKER) (test hlvr=926) 7.3 gm/dL 6.0-8.3 ALBUMIN (BEAKER) (test uojl=5773) 3.6 g/dL 3.5-5.0 BILIRUBIN TOTAL (BEAKER) (test octm=268) 0.6 mg/dL 0.2-1.2 BILIRUBIN DIRECT (BEAKER) (test mtyb=409) 0.2 mg/dL 0.1-0.5 ALKALINE PHOSPHATASE (BEAKER) (test rozc=084) 203 U/L 40-150 AST (SGOT) (BEAKER) (test jbku=198) 17 U/L 5-34 ALT (SGPT) (BEAKER) (test advh=308) 14 U/L 6-55 CBC W/PLT COUNT & AUTO [id number] 15:11:00 Test Item Value Reference Range Comments WHITE BLOOD CELL COUNT (BEAKER) (test xomq=085) 8.0 K/ L 4.0-10.0 RED BLOOD CELL COUNT (BEAKER) (test laef=784) 3.27 M/ L 4.20-5.80 HEMOGLOBIN (BEAKER) (test clgo=720) 10.2 GM/DL 13.0-16.8 HEMATOCRIT (BEAKER) (test kgip=846) 30.3 % 40.0-50.0 MEAN CORPUSCULAR VOLUME (BEAKER) (test irkp=829) 92.6 fL 82.0-98.0 MEAN CORPUSCULAR HEMOGLOBIN (BEAKER) (test 31.2 pg 27.0-33.0 dflz=776) MEAN CORPUSCULAR HEMOGLOBIN CONC (BEAKER) (test 33.7 GM/DL 32.0-36.0 dwbv=232) RED CELL DISTRIBUTION WIDTH (BEAKER) (test 12.9 % 10.3-14.2 xwyu=290) PLATELET COUNT (BEAKER) (test kwco=507) 248 K/CU MM 150-430 MEAN PLATELET VOLUME (BEAKER) (test tdqf=501) 7.3 fL 6.5-10.5 NUCLEATED RED BLOOD CELLS (BEAKER) (test 0 /100 WBC 0-0 mvqq=031) NEUTROPHILS RELATIVE PERCENT (BEAKER) (test 65 % kyza=962) LYMPHOCYTES RELATIVE PERCENT (BEAKER) (test 24 % wwsc=631) MONOCYTES RELATIVE PERCENT (BEAKER) (test 8 % echz=834) EOSINOPHILS RELATIVE PERCENT (BEAKER) (test 3 % fonp=148) BASOPHILS RELATIVE PERCENT (BEAKER) (test 1 % buxx=609) NEUTROPHILS ABSOLUTE COUNT (BEAKER) (test 5.16 K/ L 1.80-8.00 owvp=049) LYMPHOCYTES ABSOLUTE COUNT (BEAKER) (test 1.89 K/ L 1.48-4.50 ejns=112) MONOCYTES ABSOLUTE COUNT (BEAKER) (test 0.67 K/ L 0.00-1.30 uxhj=333) EOSINOPHILS ABSOLUTE COUNT (BEAKER) (test 0.20 K/ L 0.00-0.50 dext=754) BASOPHILS ABSOLUTE COUNT (BEAKER) (test 0.07 K/ L 0.00-0.20 juts=575) 0.00AFB CULTURE + [id number] 19:58:00 Test Item Value Reference Range Comments CULTURE (BEAKER) (test No acid-fast bacilli isolated thxx=4211) in 42 days AFB SMEAR (BEAKER) (test No acid fast bacilli seen cqrs=011) AFB CULTURE + [id number] 19:58:00 Test Item Value Reference Range Comments CULTURE (BEAKER) (test No acid-fast bacilli isolated jazn=1691) in 42 days AFB SMEAR (BEAKER) (test No acid fast bacilli seen hemw=644) AFB CULTURE + [id number] 18:21:00 Test Item Value Reference Range Comments CULTURE (BEAKER) (test No acid-fast bacilli isolated ljuk=3999) in 42 days AFB SMEAR (BEAKER) (test No acid fast bacilli seen zegb=614) POCT-GLUCOSE [id number] 10:30:00 Test Item Value Reference Range Comments POC-GLUCOSE METER (BEAKER) 468 mg/dL 70-[address] [facility] [address] [facility] (test unld=3390) [facility] [address] CREATINE KINASE (CK), TOTAL AND [id number] 08:31:00 Test Item Value Reference Range Comments CREATINE KINASE TOTAL (BEAKER) (test vpsw=093) 42 U/L 29-200 CREATINE KINASE-MB (BEAKER) (test gflc=025) 2.3 ng/mL 0.0-6.6 CREATINE KINASE-MB INDEX (BEAKER) (test mlmh=695) 5.5 % Effective 01/21/2014: CK-MB Reference Range ChangeNew: 0.0-6.6 Previous: 0.0- 4.9CK-MB Reference Range:<6.7 Normal6.7-10.0 Borderline>10.0 AbnormalTROPONIN [id number] 08:31:00 Test Item Value Reference Range Comments TROPONIN I (BEAKER) (test wouf=367) 0.05 ng/mL 0.00-0.03 Effective 01/21/2014: Reference Range ChangeNew: 0.00-0.03 Previous 0.00- 0.15Troponin I (TnI) levels must be interpreted in the context of the presenting symptoms and the clinical findings. Elevated TnI levels indicate myocardial damage, but are not specific for ischemic heart disease. Elevated TnI levels are seen in patients with other cardiac conditions (including myocarditis and congestive heartfailure), and slight TnI elevations occur in patients with other conditions, including sepsis, renalfailure, acidosis, acute neurological disease, and persistent tachyarrhythmia.BASIC METABOLIC [id number] 08:27:00 Test Item Value Reference Range Comments SODIUM (BEAKER) (test 128 meq/L 136-145 jhmh=969) POTASSIUM (BEAKER) (test 4.2 meq/L 3.5-5.1 qzes=205) CHLORIDE (BEAKER) (test 91 meq/L 98-107 hvqr=906) CO2 (BEAKER) (test 20 meq/L 22-29 yjlr=213) BLOOD UREA NITROGEN 49 mg/dL 7-21 (BEAKER) (test zdkf=256) CREATININE (BEAKER) (test 6.84 mg/dL 0.57-1.25 otdg=208) GLUCOSE RANDOM (BEAKER) 655 mg/dL 70-105 (test jayu=609) CALCIUM (BEAKER) (test 7.7 mg/dL 8.4-10.2 vxhj=620) EGFR (BEAKER) (test 8 mL/min/1.73 sq m ESTIMATED GFR IS NOT pctb=8179) ACCURATE CREATININE CLEARANCE IN PREDICTING GLOMERULAR FILTRATION RATE. ESTIMATED GFR IS NOT APPLICABLE FOR DIALYSIS PATIENTS. [id number] 08:24:00 Test Item Value Reference Range Comments MAGNESIUM (BEAKER) (test txdx=156) 2.4 mg/dL 1.6-2.6 CBC W/PLT COUNT & AUTO [id number] 08:17:00 Test Item Value Reference Range Comments WHITE BLOOD CELL COUNT (BEAKER) (test rvvd=918) 8.9 K/ L 4.0-10.0 RED BLOOD CELL COUNT (BEAKER) (test gnoe=078) 3.08 M/ L 4.20-5.80 HEMOGLOBIN (BEAKER) (test skyo=792) 9.7 GM/DL 13.0-16.8 HEMATOCRIT (BEAKER) (test mcei=313) 28.6 % 40.0-50.0 MEAN CORPUSCULAR VOLUME (BEAKER) (test fdbk=043) 92.9 fL 82.0-98.0 MEAN CORPUSCULAR HEMOGLOBIN (BEAKER) (test 31.5 pg 27.0-33.0 ixev=328) MEAN CORPUSCULAR HEMOGLOBIN CONC (BEAKER) (test 33.9 GM/DL 32.0-36.0 chhd=938) RED CELL DISTRIBUTION WIDTH (BEAKER) (test 14.3 % 10.3-14.2 ngzu=194) PLATELET COUNT (BEAKER) (test auzh=955) 159 K/CU MM 150-430 MEAN PLATELET VOLUME (BEAKER) (test qlws=505) 8.7 fL 6.5-10.5 NUCLEATED RED BLOOD CELLS (BEAKER) (test 0 /100 WBC 0-0 lkls=897) NEUTROPHILS RELATIVE PERCENT (BEAKER) (test 82 % jusq=258) LYMPHOCYTES RELATIVE PERCENT (BEAKER) (test 12 % fidl=174) MONOCYTES RELATIVE PERCENT (BEAKER) (test 6 % zvnb=740) EOSINOPHILS RELATIVE PERCENT (BEAKER) (test 1 % outh=475) BASOPHILS RELATIVE PERCENT (BEAKER) (test 0 % uhse=690) NEUTROPHILS ABSOLUTE COUNT (BEAKER) (test 7.31 K/ L 1.80-8.00 nkvf=984) LYMPHOCYTES ABSOLUTE COUNT (BEAKER) (test 1.06 K/ L 1.48-4.50 esyx=928) MONOCYTES ABSOLUTE COUNT (BEAKER) (test 0.51 K/ L 0.00-1.30 adll=920) EOSINOPHILS ABSOLUTE COUNT (BEAKER) (test 0.05 K/ L 0.00-0.50 fevl=781) BASOPHILS ABSOLUTE COUNT (BEAKER) (test 0.01 K/ L 0.00-0.20 bqmd=835) 0.00
[2018-09-25 20:23] LABS: Absolute Lymphocytes (CBC) 0.8 K/uL (0.7-4.9); Basophils % 1.8 % (0-1.3); Lymphocytes % 12.2 % (15.3-44.8); MPV 9.3 fL (7.6-11.3); RBC Red Blood Cell Count 3.32 M/uL (4.33-5.43)
[2018-09-25 20:27] LABS: Protime INR 1.1
--- NOTE | 2018-09-25 20:45 | RAD REPORT ---
EXAM DESCRIPTION: RAD - Chest Single View - 09/25/2018 7:52 pm CLINICAL HISTORY: Chest pain, shortness of breath COMPARISON: September 14, 2018 TECHNIQUE: AP portable chest image was obtained 1949 hours . FINDINGS: Interstitial opacification is present throughout both lung clark. There is focal airspace disease in the right base with obscuring of the right heart border and right hemidiaphragm. Right ba se pneumonia with concurrent interstitial infiltrate or edema suspected. Upper lobe vasculature withi n normal limits. Cardiomegaly is present, mild. No pneumothorax or large pleural effusion. No acute b annette abnormality seen. No acute aortic findings suspected. IMPRESSION: Right base pneumonia. Interstitial opacification in both lung clark from concurrent interstitial edema or infiltrate. Mild cardiomegaly.
[2018-09-25 21:10] LABS: ALT/SGPT 10 U/L (12-78); AST/SGOT 13 U/L (15-37); Albumin 3.5 g/dL (3.4-5.0); Alkaline Phosphatase 141 U/L (45-117); BUN Blood Urea Nitrogen 43 mg/dL (7-18); Bicarbonate 26 mmol/L (21-32); Bilirubin Direct 0.3 mg/dL (0-0.2); Bilirubin Total 0.6 mg/dL (0.2-1.0); CKMB Creatine Kinase MB 3.2 ng/mL (0.3-3.6); Creatine Phosphokinase 151 U/L (39-308); Glucose Level 105 mg/dL (74-106); Lipase 60 U/L (73-393); Magnesium 2.5 mg/dL (1.8-2.4); NT PRO-BNP > 175000 pg/mL (<125); Potassium 3.7 mmol/L (3.5-5.1); Protein, Total 7.6 g/dL (6.4-8.2); Sodium Level 136 mmol/L (136-145); Troponin (Emerg Dept Use Only) < 0.02 ng/mL (0.0-0.045)
--- NOTE | 2018-09-25 22:01 | EDPHYS ---
Physician Documentation [facility] Name: Alexis Urbano Age: 63 yrs Sex: Male : 1955 Arrival Date: 09/25/2018 Time: 19:08 Bed 7 Private MD: Rajendra Montoya E ED Physician Ronnie Dent HPI: 09/25 20:37 This 63 yrs old Male presents to ER via Ambulatory with complaints of tw4 Breathing Difficulty. 20:37 The patient has shortness of breath at rest. Duration: The symptoms are continuous, and tw4 are unchanged since they started. Severity of symptoms: At their worst the symptoms were moderate in the emergency department the symptoms are unchanged. The patient has not experienced similar symptoms in the past. 20:37 Onset: The symptoms/episode began/occurred 3 day(s) ago. The patient's shortness of tw4 breath is aggravated by exertion, is alleviated by rest. The patient has been recently seen at the [facility] Emergency Department, this week. Historical: - Allergies: 19:15 No Known Allergies; aj - Home Meds: 19:15 amlodipine oral [Active]; aspirin 81 mg Oral chew 1 tab once daily [Active]; clonidine aj HCl Oral [Active]; gerd med [Active]; Hydralazine Oral [Active]; Hydrocodone-Acetaminophen Oral [Active]; levamir [Active]; Metoprolol Tartrate Oral [Active]; Plavix Oral [Active]; Zanaflex Oral [Active]; - PMHx: 19:15 Diabetes - IDDM; Dialysis; ESRD; GERD; Hypertension; aj - Immunization history:: Adult Immunizations up to date. - Social history:: Smoking status: Patient/guardian denies using tobacco. - Ebola Screening: : Patient negative for fever greater than or equal to 101.5 degrees Fahrenheit, and additional compatible Ebola Virus Disease symptoms Patient denies exposure to infectious person Patient denies travel to an Ebola-affected area in the 21 days before illness onset No symptoms or risks identified at this time. ROS: 20:37 Constitutional: Negative for fever, chills, and weight loss, Cardiovascular: Negative tw4 for chest pain, palpitations, and edema, MS/Extremity: Negative for injury and deformity, Skin: Negative for injury, rash, and discoloration. 20:37 Neuro: Negative for headache, weakness, numbness, tingling, and seizure. 20:37 Respiratory: Positive for shortness of breath. Exam: 20:38 Constitutional: This is a well developed, well nourished patient who is awake, alert, tw4 and in no acute distress. Head/Face: Normocephalic, atraumatic. Chest/axilla: Normal chest wall appearance and motion. Nontender with no deformity. No lesions are appreciated. Cardiovascular: Regular rate and rhythm with a normal S1 and S2. No gallops, murmurs, or rubs. Normal PMI, no JVD. No pulse deficits. Respiratory: Lungs have equal breath sounds bilaterally, clear to auscultation and percussion. No rales, rhonchi or wheezes noted. No increased work of breathing, no retractions or nasal flaring. Abdomen/GI: Soft, non-tender, with normal bowel sounds. No distension or tympany. No guarding or rebound. No evidence of tenderness throughout. MS/ Extremity: Pulses equal, no cyanosis. Neurovascular intact. Full, normal range of motion. Neuro: Awake and alert, GCS 15, oriented to person, place, time, and situation. Cranial nerves II-XII grossly intact. Motor strength 5/5 in all extremities. Sensory grossly intact. Cerebellar exam normal. Normal gait. Vital Signs: 19:15 BP 189 / 70; Pulse 67; Resp 20; Temp 98.8; Pulse Ox 94% on R/A; Weight 77.11 kg; Height aj 5 ft. 6 in. (167.64 cm); 20:56 BP 180 / 74; Pulse 62; Resp 22; Pulse Ox 98% on R/A; ao 22:34 BP 174 / 70; Pulse 64; Resp 16; Pulse Ox 98% on R/A; Pain 0/10; ao 19:15 Body Mass Index 27.44 (77.11 kg, 167.64 cm) aj [facility]: 19:22 Patient medically screened. tw4 22:02 Data reviewed: vital signs, nurses notes. 09/25 19:24 Order name: Blood Culture Adult (2) 09/25 19:24 Order name: BMP; Complete Time: 21:49 09/25 21:48 Interpretation: Normal except: BUN 43; GFR 8. 09/25 19:24 Order name: CBC with Diff; Complete Time: 21:50 09/25 21:49 Interpretation: Normal except: WBC 6.8; RBC 3.32; HGB 10.0; HCT 31.0. 09/25 19:24 Order name: Ckmb 09/25 19:24 Order name: CPK 09/25 19:24 Order name: D-Dimer; Complete Time: 21:50 09/25 21:49 Interpretation: Normal except: D-DIMER 2439. 09/25 19:24 Order name: XRAY CXR (1 view); Complete Time: 21:51 09/25 19:24 Order name: Hepatic Function; Complete Time: 21:50 09/25 21:49 Interpretation: Normal except: AST 13; ALT 10; ALK 141; BILID 0.3; GLOB 4.1; A/G 0.9. 09/25 19:24 Order name: Lipase; Complete Time: 21:50 09/25 19:24 Order name: Magnesium 09/25 19:24 Order name: NT PRO-BNP; Complete Time: 21:51 09/25 21:50 Interpretation: Abnormal. 09/25 19:24 Order name: PT-INR; Complete Time: 21:51 09/25 21:50 Interpretation: Abnormal: PT 12.9. 09/25 19:24 Order name: Ptt, Activated 09/25 19:24 Order name: Troponin (emerg Dept Use Only) 09/25 19:24 Order name: Call for Old EKG 09/25 19:24 Order name: EKG; Complete Time: 19:28 09/25 19:24 Order name: Cardiac monitoring; Complete Time: 20:03 09/25 19:24 Order name: EKG - Nurse/Tech; Complete Time: 20:04 09/25 19:24 Order name: IV Saline Lock; Complete Time: 20:04 09/25 19:24 Order name: Labs collected and sent; Complete Time: 20:04 09/25 19:24 Order name: O2 Per Protocol; Complete Time: 20:04 09/25 19:24 Order name: O2 Sat Monitoring; Complete Time: 20:04 tw4 Administered Medications: 22:20 Drug: Rocephin - (cefTRIAXone) 1 grams Route: IVPB; Infused Over: 30 mins; Site: right ao antecubital; 22:49 Follow up: IV Status: Infusion continued upon admission ao 22:27 Drug: AZITHromycin 500 mg Route: IVPB; Infused Over: 1 hrs; Site: right antecubital; ao 22:49 Follow up: IV Status: Completed infusion; IV Intake: 10ml ao Disposition: 09/25/18 22:00 Hospitalization ordered by Yeyo Carreon for Inpatient Admission. Preliminary diagnosis are Pneumonia due to other specified infectious organisms, Hypoxemia. - Bed requested for Telemetry/MedSurg (Inpatient). - Status is Inpatient Admission. ao - Condition is Stable. - Problem is new. - Symptoms have improved. UTI on Admission? No Signatures: Dispatcher [employer] EDMS Lissett Osman RN RN aj Krenek, Amber, RN RN ak1 Hua Sawant RN RN ao Wadley, Terrence, MD MD tw4 Corrections: (The following items were deleted from the chart) 20:38 20:37 Onset: The symptoms/episode began/occurred today, tw4 tw4 22:02 22:00 Hospitalization Ordered by Yeyo Carreon DO for Inpatient Admission. Preliminary ak1 diagnosis is Pneumonia due to other specified infectious organisms; Hypoxemia. Bed requested for Telemetry/MedSurg (Inpatient). Status is Inpatient Admission. Condition is Stable. Problem is new. Symptoms have improved. UTI on Admission? No. tw4 23:10 22:02 09/25/2018 22:00 Hospitalization Ordered by Yeyo Carreon DO for Inpatient ao Admission. Preliminary diagnosis is Pneumonia due to other specified infectious organisms; Hypoxemia. Bed requested for Telemetry/MedSurg (Inpatient). Status is Inpatient Admission. Condition is Stable. Problem is new. Symptoms have improved. UTI on Admission? No. ak1
--- NOTE | 2018-09-25 22:01 | ER ---
Nurse's Notes [facility] Name: Alexis Urbano Age: 63 yrs Sex: Male : 1955 Arrival Date: 09/25/2018 Time: 19:08 Bed 7 Private MD: Rajendra Montoya E Diagnosis: Pneumonia due to other specified infectious organisms;Hypoxemia Presentation: 09/25 19:13 Presenting complaint: Patient states: Reports SOB with exacerbation and bright red aj blood in stool for the past 2 days. Transition of care: patient was not received from another setting of care. Onset of symptoms was September 23, 2018. Risk Assessment: Do you want to hurt yourself or someone else? Patient reports no desire to harm self or others. Initial Sepsis Screen: Does the patient meet any 2 criteria? No. Patient's initial sepsis screen is negative. Does the patient have a suspected source of infection? No. Patient's initial sepsis screen is negative. Care prior to arrival: None. 19:13 Method Of Arrival: Ambulatory aj 19:13 Acuity: JOEL 2 aj Triage Assessment: 19:15 General: Appears in no apparent distress. comfortable, Behavior is calm, cooperative, aj appropriate for age. Pain: Denies pain. Neuro: Level of Consciousness is awake, alert, obeys commands, Oriented to person, place, time, situation, Appropriate for age. Respiratory: Reports shortness of breath on exertion. Respiratory: Airway is patent Respiratory effort is even, unlabored, Respiratory pattern is regular, symmetrical, the patient has mild shortness of breath. GI: Abdomen is non-distended, obese. GI: Reports bloody stool. Derm: Skin is intact, is healthy with good turgor, Skin is pink, warm \T\ dry. normal. 20:05 Respiratory: Onset: The symptoms/episode began/occurred at an unknown time. ao Historical: - Allergies: 19:15 No Known Allergies; aj - Home Meds: 19:15 amlodipine oral [Active]; aspirin 81 mg Oral chew 1 tab once daily [Active]; clonidine aj HCl Oral [Active]; gerd med [Active]; Hydralazine Oral [Active]; Hydrocodone-Acetaminophen Oral [Active]; levamir [Active]; Metoprolol Tartrate Oral [Active]; Plavix Oral [Active]; Zanaflex Oral [Active]; - PMHx: 19:15 Diabetes - IDDM; Dialysis; ESRD; GERD; Hypertension; aj - Immunization history:: Adult Immunizations up to date. - Social history:: Smoking status: Patient/guardian denies using tobacco. - Ebola Screening: : Patient negative for fever greater than or equal to 101.5 degrees Fahrenheit, and additional compatible Ebola Virus Disease symptoms Patient denies exposure to infectious person Patient denies travel to an Ebola-affected area in the 21 days before illness onset No symptoms or risks identified at this time. Screenin:05 Abuse screen: Denies threats or abuse. Denies injuries from another. Nutritional ao screening: No deficits noted. Tuberculosis screening: No symptoms or risk factors identified. Fall Risk None identified. Assessment: 19:31 General: Appears in no apparent distress. comfortable. Pain: Complains of pain in ao chest. Neuro: Level of Consciousness is awake, alert, obeys commands, Oriented to person, place, time, situation, Appropriate for age Moves all extremities. Full function Speech is normal. Cardiovascular: Heart tones S1 S2 Rhythm is sinus bradycardia. Respiratory: Airway is patent Trachea midline Respiratory effort is even, unlabored, Breath sounds are clear bilaterally. GI: Abdomen is round obese. : No signs and/or symptoms were reported regarding the genitourinary system. EENT: No signs and/or symptoms were reported regarding the EENT system. Derm: No signs and/or symptoms reported regarding the dermatologic system. Skin is intact, Skin is pink, warm \T\ dry. normal, Skin temperature is warm. Musculoskeletal: Circulation, motion, and sensation intact. 20:05 Respiratory:. Respiratory: Reports shortness of breath at rest. ao 20:56 Reassessment: Patient appears in no apparent distress at this time. Patient and/or ao family updated on plan of care and expected duration. Pain level reassessed. Patient is alert, oriented x 3, equal unlabored respirations, skin warm/dry/pink. 21:50 Reassessment: Patient appears in no apparent distress at this time. Patient and/or ao family updated on plan of care and expected duration. Pain level reassessed. Patient is alert, oriented x 3, equal unlabored respirations, skin warm/dry/pink. Waiting on Dispo orders. 22:47 Reassessment: Report given to ABBIE Alicea Charge Nurse. Patient to be taken to his room. ao Vital Signs: 19:15 BP 189 / 70; Pulse 67; Resp 20; Temp 98.8; Pulse Ox 94% on R/A; Weight 77.11 kg; Height aj 5 ft. 6 in. (167.64 cm); 20:56 BP 180 / 74; Pulse 62; Resp 22; Pulse Ox 98% on R/A; ao 22:34 BP 174 / 70; Pulse 64; Resp 16; Pulse Ox 98% on R/A; Pain 0/10; ao 19:15 Body Mass Index 27.44 (77.11 kg, 167.64 cm) aj ED Course: 19:08 Patient arrived in ED. dl4 19:08 Rajendra Montoya MD is Private Physician. dl4 19:14 Triage completed. aj 19:15 Arm band placed on left wrist. Patient placed in an exam room. aj 19:22 Ronnie Dent MD is Attending Physician. tw4 19:31 Hua Sawant, ABBIE is Primary Nurse. ao 19:53 XRAY CXR (1 view) In Process Unspecified. EDMS 20:00 First set of blood cultures drawn EKG done, by ED staff, reviewed by Ronnie Dent MD.ao 20:04 Inserted saline lock: 20 gauge in right antecubital area, using aseptic technique. ao Blood collected. 20:05 Patient has correct armband on for positive identification. Placed in gown. Bed in low ao position. Call light in reach. Side rails up X 1. border patrol officer on. Pulse ox on. NIBP on. 20:30 Notified ED physician of a critical lab result(s). d-dimer 2439. ak1 21:11 Notified ED physician of a critical lab result(s). creatinine 7.12. lp1 21:58 Yeyo Carreon DO is Hospitalizing Provider. tw4 22:46 No provider procedures requiring assistance completed. Patient admitted, IV remains in ao place. Administered Medications: 22:20 Drug: Rocephin - (cefTRIAXone) 1 grams Route: IVPB; Infused Over: 30 mins; Site: right ao antecubital; 22:49 Follow up: IV Status: Infusion continued upon admission ao 22:27 Drug: AZITHromycin 500 mg Route: IVPB; Infused Over: 1 hrs; Site: right antecubital; ao 22:49 Follow up: IV Status: Completed infusion; IV Intake: 10ml ao Intake: 22:49 IV: 10ml; Total: 10ml. ao Outcome: 22:00 Decision to Hospitalize by Provider. tw4 22:47 Discharged to home ambulatory. ao 22:47 Condition: stable 22:47 Instructed on the need for admit. 23:10 Patient left the ED. ao Signatures: Dispatcher [employer] EDLissett Malave RN RN aj Pena, Laura, RN RN 1 Karen Vega RN RN ak1 Hua Sawant RN RN ao Wadley, Terrence, MD MD tw4 Manuel Dodd dl4
[2018-09-25] MEDS ORDERED: AZITHROMYCIN 500 MG INJ IVPB ONE (22:23)
[2018-09-25] MEDS ORDERED: CEFTRIAXONE/SWI 1gm 1 GM/10 ML SYR ONE (22:23)
[2018-09-25] MEDS ORDERED: NA CHLORIDE 0.9% 250 ML ONE (22:23)
--- NOTE | 2018-09-25 22:50 | P.HP ---
Certification for Inpatient Patient admitted to: Observation With expected LOS: <2 Midnights Patient will require the following post-hospital care: None Practitioner: I am a practitioner with admitting privileges, knowledge of patient current condition, hospital course, and medical plan of care. Services: Services provided to patient in accordance with Admission requirements found in Title 42 Section 412.3 of the Code of Federal Regulations Patient History Date of Service: 09/25/18 Primary Care Provider: Dr. Montoya; Nephrology-Dr. Rand Reason for admission: Shortness of breath, cough History of Present Illness: 63-year-old male presented to emergency room with increasing shortness of breath and cough over the last 3 days. Patient with multiple medical problems including end-stage renal disease on hemodialysis, chronic back pain, diabetes mellitus type 2, hypertension, chronic anemia, GERD. Over the past several days patient has increasing cough with congestion. He denied any significant fever. Was seen earlier in the week in the emergency room. He came back due to increasing shortness of breath. In the ER patient found to have right base pneumonia on chest x-ray. Hemoglobin 10.0, white count 6.8. Sodium 136, potassium 3.7, BUN of 43, creatinine 7.1 with a GFR of 8. Glucose 105. Patient was admitted for observation due to his chronic medical problems. When I saw the patient the ER, the patient appeared stable. He was not tachypneic. He did report some increasing shortness of breath. Otherwise stable. Patient mentions intermittent rectal bleeding. His last colonoscopy was 4-5 years ago. He has a history of colon polyps. He is seen by GI. He also mentions a history of chronic pain. He is to see chronic pain management later this week. Allergies No Known Drug Allergies Allergy (Mild, Unverified 07/15/16 23:29) Unknown NKDA Allergy (Uncoded 08/05/13 22:22) Unknown No Known Aller Allergy (Uncoded 09/01/15 01:42) Unknown Home medications list reviewed: Yes Home Medications: Tizanidine [Zanaflex*] 4 mg PO BEDTIME 08/02/13 Hydrocodone 10/APAP 325 [Robbins 10/325*] 1 tab PO Q4H PRN #30 tab 08/04/13 cloNIDine HCl [Catapres*] 0.2 mg PO TID #90 tab 08/04/13 Aspirin Chewable [Aspirin Chewable*] 81 mg PO DAILY 11/06/14 Insulin Detemir [Levemir Flextouch] 20 units SUBQ DAILY WITH BREAKFAST 11/06/14 Omeprazole 40 mg PO DAILY 11/06/14 Hydralazine HCl [Apresoline] 100 mg PO TID #90 tablet 11/18/14 Metoclopramide HCl [Reglan] 5 mg PO TID #30 tablet 11/18/14 Metoprolol Tartrate [Lopressor] 100 mg PO BID #60 tablet 11/18/14 Cefdinir [Omnicef] 300 mg PO DAILY #7 capsule 09/02/15 Guaifen W/Codeine Syrup [ROBITUSSIN A-C Syrup] 5 ml PO BID PRN #100 ml 09/02/15 predniSONE [Deltasone] 20 mg PO DAILY #5 tab 09/02/15 - Past Medical/Surgical History Diabetic: Yes -: Hepatitis-C -: HTN -: Hyperlipidemia -: History of atrial flutter in the past -: TENS unit 4 mts ago. turned it off c magnet tues -: End-stage renal disease on hemodialysis -: Diabetes mellitus type 2 -: Chronic pain -: Chronic anemia -: knee replacement 2 years ago -: ankle heel spur removed -: ankle surgery -: toe surgery -: back surgery 2006 from car [employer] Psychosocial/ Personal History: Patient is . He has 2 children - Family History Sister -: Cancer Notes: colon cx Brother -: Diabetes dad -: Hypertension mom -: Hypertension - Social History Smoking Status: Former smoker Alcohol use: No CD- Drugs: No Caffeine use: Yes Place of Residence: Home Review of Systems General: As per HPI Eyes: Unremarkable ENT: Nose Congestion, As per HPI Respiratory: Cough, Shortness of Breath, Sputum, As per HPI Cardiovascular: Unremarkable Gastrointestinal: As per HPI Genitourinary: Unremarkable Musculoskeletal: Unremarkable Integumentary: Unremarkable Neurological: Unremarkable Lymphatics: Unremarkable Physical Examination - Physical Exam General: Alert, In no apparent distress, Oriented x3, Cooperative HEENT: Atraumatic, Normocephalic, PERRLA, Mucous membr. moist/pink Neck: Supple, No Thyromegaly Respiratory: Crackles/rales (To the right base) Cardiovascular: Normal pulses, Regular rate/rhythm Gastrointestinal: Normal bowel sounds, Soft and benign, Non-distended, No tenderness, No masses, No rebound, No guarding Musculoskeletal: No erythema, No tenderness, No warmth Integumentary: No tenderness/swelling, No erythema, No warmth, No cyanosis Neurological: Normal speech, Normal strength at 5/5 x4 extr, Normal tone, Normal affect - Studies Laboratory Data (last 24 hrs) 09/25/18 20:00: PT 12.9 H, INR 1.10, APTT 32.8 09/25/18 20:00: WBC 6.8 D, Hgb 10.0 L, Hct 31.0 L, Plt Count 179 09/25/18 20:00: Sodium 136, Potassium 3.7, BUN 43 H D, Creatinine 7.12 H* D, Glucose 105, Magnesium 2.5 H, Total Bilirubin 0.6, AST 13 L, ALT 10 L, Alkaline Phosphatase 141 H, Lipase 60 L Assessment and Plan - Plan Impression: Shortness of breath, cough secondary to right lower lobe pneumonia End-stage renal disease on hemodialysis Hypertension Diabetes mellitus type 2, [id number] Anemia of chronic disease Intermittent rectal bleeding likely internal hemorrhoids with history of colon polyps Chronic back pain with prior surgeries Plan: Shortness of breath, cough secondary to right lower lobe pneumonia: Patient was admitted for observation due to his multiple medical problems. Will start Rocephin and Zithromax. Will check strep test and influenza test. Will provide medication for cough and congestion. Anticipate discharge tomorrow with clinical improvement. Recommend to recheck chest x-ray in 2-4 weeks to follow up resolution. End-stage renal disease on hemodialysis: Will consult Nephrology so that patient can get dialysis tomorrow. Patient likely to be discharged after dialysis. Hypertension: Will need to obtain and restart home medication. Diabetes mellitus type 2, [id number]: Will provide Accu-Cheks and sliding scale. Anemia of chronic disease: Will check iron and B12 studies. Patient with chronic anemia. Patient mentions history of intermittent rectal bleeding likely from internal hemorrhoids. Patient has had a colonoscopy 4-6 years ago. Will recommend that he follow up with GI as an outpatient to further assess. Will monitor hemoglobin closely. Intermittent rectal bleeding likely internal hemorrhoids with history of colon polyps: Recommend as above. Monitor hemoglobin. Check for iron and B12 studies. Recommend GI evaluation as an outpatient. Chronic back pain with prior surgeries: Will provide medication for pain. Patient to see chronic pain management on . Discharge Plan: Home Plan to discharge in: 24 Hours - Advance Directives Does patient have a Living Will: No Does patient have a Durable POA for Healthcare: No - Code Status/Comfort Care Code Status Assessed: Yes (Patient full code) Time Spent Managing Pts Care (In Minutes): 55
[2018-09-25] MEDS ORDERED: IPRATROPIUM BROM 0.5MG/2.5ML NEB PRN (23:22)
[2018-09-25] MEDS ORDERED: ALBUTEROL 2.5 MG/3 ML NEB SOL NEB PRN (23:22)
[2018-09-25] MEDS ORDERED: ONDANSETRON 4 MG/2 ML VIAL IV PRN (23:22)
[2018-09-25] MEDS ORDERED: HYDRALAZINE HCL 20 MG/ML VIAL IV PRN (23:22)
[2018-09-25] MEDS ORDERED: ACETAMINOPHEN 500 MG TAB PO PRN (23:22)
[2018-09-25 23:34] VITALS: BMI 28.0
[2018-09-26 00:30] LABS: Ferritin 598.7 ng/mL (26-388)
[2018-09-26] MEDS: BENZONATATE 100 MG CAP PO PRN ×2 (00:55→06:48)
[2018-09-26] MEDS: HYDROCODONE/APAP 7.5/325 MG TAB PO PRN ×4 (00:55→17:32)
[2018-09-26 04:41] LABS: Absolute Lymphocytes (CBC) 1.2 K/uL (0.7-4.9); Hematocrit 28.5 % (39.6-49.0); Lymphocytes % 19.4 % (15.3-44.8); RBC Red Blood Cell Count 3.07 M/uL (4.33-5.43)
[2018-09-26 05:21] LABS: Magnesium 2.5 mg/dL (1.8-2.4); Potassium 3.8 mmol/L (3.5-5.1)
[2018-09-26] MEDS: METOPROLOL TAR 25 MG TAB PO SCH ×2 (05:47→17:31)
[2018-09-26] MEDS: INSULIN -REGULAR HUMAN 50 UNIT/0.5 ML ML SQ SCH ×3 (07:30→16:30)
[2018-09-26] MEDS ORDERED: AZITHROMYCIN IV 500 MG in NA CHLORIDE 0.9% 250 ML IVPB SCH (09:00)
[2018-09-26] MEDS ORDERED: CEFTRIAXONE/SWI 1gm 1 GM/10 ML SYR IV SCH (09:00)
[2018-09-26] MEDS ORDERED: AMLODIPINE 5 MG TAB PO SCH (09:00)
[2018-09-26] MEDS ORDERED: CEFTRIAXONE 1 GM/NS 50 ML 1 GM/50 ML BAG IV SCH (09:00)
[2018-09-26] MEDS ORDERED: ASPIRIN EC 81 MG TAB PO SCH (09:00)
[2018-09-26] MEDS ORDERED: CLOPIDOGREL 75 MG TABLET PO SCH (09:00)
[2018-09-26] MEDS ORDERED: HEPARIN 5000 UNIT/ML 1 ML VIAL SQ SCH (09:00)
[2018-09-26 09:25] VITALS: TEMP 98.3
--- NOTE | 2018-09-26 10:36 | EKG ---
Test Date: 2018-09-25 Test Time: 19:35:05 Environmental Lawyer: CHARLOTTE MEASUREMENT RESULTS: Intervals: Rate: 62 [place]: 144 QRSD: 88 QT: 494 QTc: 501 [place]: P: 45 [place]: 144 QRS: 8 T: 138 INTERPRETIVE STATEMENTS: Sinus rhythm with premature atrial complexes Possible Left atrial enlargement Nonspecific ST and T wave abnormality Prolonged QT Abnormal ECG Compared to ECG 09/14/2018 20:22:58 Atrial premature complex(es) now present Prolonged QT interval now present Sinus bradycardia no longer present Possible ischemia no longer present ST (T wave) deviation still present Electronically Signed On 09-26-18 10:35:22 CDT by Jimmy Zuniga
--- NOTE | 2018-09-26 13:22 | P.SSS ---
Patient History Date of Service: 09/26/18 Primary Care Provider: Dr. Montoya; Nephrology-Dr. Rand Reason for admission: Shortness of breath, cough History of Present Illness: 63-year-old male presented to emergency room with increasing shortness of breath and cough over the last 3 days. Patient with multiple medical problems including end-stage renal disease on hemodialysis, chronic back pain, diabetes mellitus type 2, hypertension, chronic anemia, GERD. Over the past several days patient has increasing cough with congestion. He denied any significant fever. Was seen earlier in the week in the emergency room. He came back due to increasing shortness of breath. In the ER patient found to have right base pneumonia on chest x-ray. Hemoglobin 10.0, white count 6.8. Sodium 136, potassium 3.7, BUN of 43, creatinine 7.1 with a GFR of 8. Glucose 105. Patient was admitted for observation due to his chronic medical problems. When I saw the patient the ER, the patient appeared stable. He was not tachypneic. He did report some increasing shortness of breath. Otherwise stable. Patient mentions intermittent rectal bleeding. His last colonoscopy was 4-5 years ago. He has a history of colon polyps. He is seen by GI. He also mentions a history of chronic pain. He is to see chronic pain management later this week. Allergies No Known Drug Allergies Allergy (Mild, Verified 09/26/18 00:15) Unknown Home Medications: Clopidogrel Bisulfate [Plavix*] 1 tab PO DAILY 09/26/18 Gabapentin [Neurontin*] 1 tab PO TID 09/26/18 Hydralazine [Apresoline*] 50 mg PO TID 09/26/18 Hydrocodone Bit/Acetaminophen [Hydrocodon-Acetaminophn 10-325] 1 tab PO Q6HP PRN 09/26/18 Lactulose 30 ml PO DAILY PRN 09/26/18 Lisinopril [Prinivil*] 1 tab PO DAILY 09/26/18 Pravastatin Sodium 1 tab PO BEDTIME 09/26/18 Tizanidine [Zanaflex*] 1 tab PO BID 09/26/18 Tobramycin/Dexamethasone [Tobramycin-Dexameth Ophth Susp] 2 drops OPTH BID 09/26 Zolpidem Tartrate [Ambien*] 1 tab PO BEDTIME PRN 09/26/18 cloNIDine HCl [Clonidine HCl] 1 tab PO TID 09/26/18 - Past Medical/Surgical History Has patient received pneumonia vaccine in the past: Yes Diabetic: Yes -: Hepatitis-C (cured) -: HTN -: Hyperlipidemia -: Chronic pain -: Chronic anemia -: End-stage renal disease on hemodialysis (MWF) -: Diabetes mellitus type 2 -: Chronic pain -: Chronic anemia -: knee replacement -: ankle heel spur removed -: ankle surgery -: toe surgery -: back surgery -: TENS implant Psychosocial/ Personal History: Patient is . He has 2 children - Family History Sister -: Diabetes, Cancer Notes: colon ca Brother -: Hypertension, Diabetes dad -: Hypertension mom -: Hypertension Notes: dementia - Social History Smoking Status: Former smoker Alcohol use: No CD- Drugs: No Caffeine use: Yes Place of Residence: Home Review of Systems 10-point ROS is otherwise unremarkable Physical Examination - Vital Signs Temperature: 98.3 F Blood Pressure: 185/89 Pulse: 61 Respirations: 19 Pulse Ox (%): 92 - Physical Exam General: Alert, In no apparent distress HEENT: Atraumatic, PERRLA, Mucous membr. moist/pink, EOMI, Sclerae nonicteric Neck: Supple, 2+ carotid pulse no bruit, No LAD, Without JVD or thyroid abnormality Respiratory: Clear to auscultation bilaterally, Normal air movement Cardiovascular: Regular rate/rhythm, Normal S1 S2 Gastrointestinal: Normal bowel sounds, No tenderness Musculoskeletal: No tenderness Integumentary: No rashes Neurological: Normal gait, Normal speech, Normal strength at 5/5 x4 extr, Normal tone, Normal affect Lymphatics: No axilla or inguinal lymphadenopathy - Studies Laboratory Data (last 24 hrs) 09/25/18 20:00: PT 12.9 H, INR 1.10, APTT 32.8 09/25/18 20:00: WBC 6.8 D, Hgb 10.0 L, Hct 31.0 L, Plt Count 179 09/25/18 20:00: Sodium 136, Potassium 3.7, BUN 43 H D, Creatinine 7.12 H* D, Glucose 105, Magnesium 2.5 H, Total Bilirubin 0.6, AST 13 L, ALT 10 L, Alkaline Phosphatase 141 H, Lipase 60 L - Diagnosis (Problem(s)) (1) Pneumonia Onset Date: 09/01/15 Current Visit: No Status: Acute Qualifiers: Pneumonia type: aspiration pneumonia (2) End stage renal disease Current Visit: Yes Status: Chronic (3) Hypertension Current Visit: No Status: Chronic Qualifiers: Hypertension type: essential hypertension Qualified Code(s): I10 - Essential (primary) hypertension (4) Uncontrolled diabetes mellitus Current Visit: No Status: Chronic Qualifiers: Diabetes mellitus type: type 2 Treatment Summary: Overall during the hospital stay patient remained stable Patient was initially admitted to the hospital for dyspnea most likely secondary to volume overload versus R lower lobe pneumonia. Patient is end- stage renal disease is nephrology was consulted. Patient missed hemodialysis and thus he was given hemodialysis here in the hospital. Had marked improvement in his dyspnea after hemodialysis and thus was discharged home under stable condition. Patient also was found to have some opacity on the x- ray on the right lower lobe consistent with pneumonia and thus was given a prescription for azithromycin. Once patient was doing well able to be weaned off of oxygen he was discharged home under stable condition - Disposition Disposition: ROUTINE DISCHARGE
[2018-09-26] MEDS ORDERED: ENOXAPARIN 40 MG/0.4 ML SQ SCH (17:00)
[2018-09-26 17:31] VITALS: BP 177/70
[2018-09-26 17:47] VITALS: O2SAT 87
--- NOTE | 2018-09-26 20:38 | CON ---
Date of Consultation: 09/26/2018 Reason For Consultation: Hypertension, over volume. History Of Present Illness: This is a pleasant 63-year-old gentleman well known to me from dialysis with significant past medical history of diabetes complicated with neuropathy and nephropathy; end-st age renal disease, on hemodialysis Monday, Monday, Monday at [facility]; hyper lipidemia. Patient came to the hospital complaining of chest tightness, shortness of breath. He was found to have over volume. For that reason, admitted. We have been consulted. Primary workup show ed over volume. We took the patient for urgent dialysis. Past Medical History: 1.Hypertension. 2.Hyperlipidemia. 3.Diabetes complicated with neuropathy and nephropathy. 4.End-stage renal disease, on hemodialysis Monday, Monday, Monday at [facility] it through the left arm AV fistula. 5.Hepatitis C complicated with cirrhosis. Allergies: NO KNOWN DRUG ALLERGIES. Social History: Active smoker. Denied drinking. Denied drug abuse. Family History: Positive for diabetes and cancer. Past Surgical History: AV fistula, tonsillectomy, multiple orthopedic surgeries. Review of Systems: Head and Neck: No red eye. No ear pain. GI: No nausea, no vomiting. : No polyuria, no dysuria, no hematuria. MANAGER PEOPLE: Not applicable. Respiratory: Has shortness of breath. Cardiovascular: Has chest tightness. Endocrine: No polydipsia. Skin: No rash. Neuro: Has neuropathy. Musculoskeletal: No joint pain. Home Medications: Clonidine 0.1 t.i.d., Ambien, lisinopril, lactulose, hydrocodone, hydralazine, kulwant apentin, and Plavix. Current Medications: In the hospital include amlodipine, aspirin, Zithromax, ceftriaxone, Plavix, Z- Brian, hydralazine, azithromycin, breathing treatment, Zofran. Physical Examination: General: When I saw the patient, the patient was lying in bed, slightly short of breath. Vital Signs: Blood pressure 141/68, pulse of . Chest: Faint crackles, bilateral bases. Heart: S1, S2. Regular. Systolic murmur. Abdomen: Soft, nontender. Extremities: No edema. Neurologic: Alert, oriented x3. Nonfocal. Laboratory Data: WBC 6.1, H and H 9.5/28.5, and platelets 162. Sodium 136, potassium 3.8, bicarb 25 , BUN 47, creatinine 7.5, calcium 7.3. Magnesium 2.5. TSAT of 12. Assessment And Plan: 1.End-stage renal disease, over volume. I the patient for dialysis. We will challenge t he patient, and we will try to do another session of dialysis tomorrow. 2.Hypertension, not controlled. We will utilize the blood pressure for ultrafiltration and challeng ing. Continue current blood pressure medications. 3.Congestive heart failure with over volume as above. We will challenge the patient. 4.Anemia. Continue DEXTER. 5.Diabetes, as by primary. Thank you, Dr. Saenz, for allowing us to participate in the care of your patient. COURTNEY Voice ID: [id number] Report ID: [id number]
[2018-09-27] MEDS ORDERED: AZITHROMYCIN 250 MG TAB PO SCH (09:00)
== END 2018-09-26 18:23 | disposition home or self-care (01) ==
LOC: ER 19:05 → 4TH 22:55
PROVIDERS: ADMIT Family Medicine; ATTEND Family Medicine
DX: J18.9 Pneumonia, unspecified organism (principal); E11.22 Type 2 diabetes mellitus with diabetic chronic kidney disease; I13.2 Hypertensive heart and chronic kidney disease with heart failure and with stage 5 chronic kidney disease, or end stage renal disease; I50.9 Heart failure, unspecified; N18.6 End stage renal disease; Z99.2 Dependence on renal dialysis; D63.1 Anemia in chronic kidney disease; E11.21 Type 2 diabetes mellitus with diabetic nephropathy; E11.40 Type 2 diabetes mellitus with diabetic neuropathy, unspecified; E78.5 Hyperlipidemia, unspecified; K62.5 Hemorrhage of anus and rectum; K74.60 Unspecified cirrhosis of liver; K21.9 Gastro-esophageal reflux disease without esophagitis; G89.29 Other chronic pain; M54.9 Dorsalgia, unspecified; Z79.4 Long term (current) use of insulin; Z79.02 Long term (current) use of antithrombotics/antiplatelets; Z79.82 Long term (current) use of aspirin; Z79.899 Other long term (current) drug therapy; Z87.891 Personal history of nicotine dependence; Z86.19 Personal history of other infectious and parasitic diseases; Z86.010 Personal history of colon polyps
CPT/HCPCS: 96365; 93005; 87040 ×2; 87070 ×2; 85025 ×2; 80048 ×2; 36415; 83735 ×2; 82550; 87205; 85610; 82962 ×4; 85379; 80076; 87081; 85730; 84484; 82553; 82728; 82607; 83690; 83540; 84145; 83880; 84466; 87804 ×2; 71045; 90935; 94640; 99284; J0360; J0456 ×2; J1644; J0696 ×2; J2405; G0378 ×2; 87077; 87186

== ENCOUNTER 2019-01-02 15:24 | Inpatient (IN) | payer OTHER ==
[2019-01-02] MEDS ORDERED: METHYLPREDNISOLONE 125 MG INJ ONE (16:25)
[2019-01-02] MEDS ORDERED: AZITHROMYCIN 250 MG TAB ONE (16:25)
[2019-01-02] MEDS ORDERED: IPRATROPIUM BROM 0.5MG/2.5ML ONE (16:26)
[2019-01-02] MEDS ORDERED: CEFTRIAXONE/SWI 1gm 1 GM/10 ML SYR ONE (16:26)
[2019-01-02] MEDS ORDERED: LEVALBUTEROL 1.25 MG/3 ML NEB ONE (16:26)
--- NOTE | 2019-01-02 16:49 | ER ---
Nurse's Notes [facility] Name: Alexis Urbano Age: 63 yrs Sex: Male : 1955 Arrival Date: 01/02/2019 Time: 15:27 Bed 23 Private MD: Diagnosis: Cough;Hemoptysis;End stage renal disease;Tobacco abuse counseling;Tobacco use;Type 1 diabetes mellitus;Pneumonia due to other specified bacteria Presentation: 01/02 15:32 Presenting complaint: Patient states: productive cough that began yesterday and today aa5 coughing up blood. Pt reports last dialysis was today. Transition of care: patient was not received from another setting of care. Onset of symptoms was December 2018. Risk Assessment: Do you want to hurt yourself or someone else? Patient reports no desire to harm self or others. Initial Sepsis Screen: Does the patient meet any 2 criteria? No. Patient's initial sepsis screen is negative. Does the patient have a suspected source of infection? No. Patient's initial sepsis screen is negative. Care prior to arrival: None. 15:32 Acuity: JOEL 3 aa5 15:32 Method Of Arrival: Ambulatory aa5 Historical: - Allergies: 15:34 No Known Allergies; aa5 - PMHx: 15:34 Diabetes - IDDM; Dialysis; ESRD; GERD; Hypertension; aa5 - Immunization history:: Flu vaccine is up to date. - Social history:: Smoking status: Patient uses tobacco products, smokes one-half pack cigarettes per day. - Ebola Screening: : No symptoms or risks identified at this time. Screenin:39 Abuse screen: Denies threats or abuse. Denies injuries from another. Nutritional mg2 screening: No deficits noted. Tuberculosis screening: No symptoms or risk factors identified. Fall Risk IV access (20 points). Assessment: 16:41 General: Appears in no apparent distress. comfortable, Behavior is calm, cooperative. mg2 Pain: Complains of pain in back Pain does not radiate. Pain currently is 5 out of 10 on a pain scale. Quality of pain is described as aching. Neuro: Level of Consciousness is awake, alert, obeys commands, Oriented to person, place, time, situation. Cardiovascular: Capillary refill < 3 seconds Patient's skin is warm and dry. Respiratory: Airway is patent Respiratory effort is even, unlabored, Respiratory pattern is regular, symmetrical. Respiratory: Reports cough that is. GI: No signs and/or symptoms were reported involving the gastrointestinal system. : No signs and/or symptoms were reported regarding the genitourinary system. EENT: No signs and/or symptoms were reported regarding the EENT system. Derm: Skin is intact, is healthy with good turgor, Skin is pink, warm \T\ dry. normal. Musculoskeletal: Circulation, motion, and sensation intact. Capillary refill < 3 seconds, Reports pain in back. 17:30 Reassessment: Patient appears in no apparent distress at this time. Patient and/or mg2 family updated on plan of care and expected duration. Pain level reassessed. Patient is alert, oriented x 3, equal unlabored respirations, skin warm/dry/pink. dr landry came and advised for admission. Vital Signs: 15:34 BP 179 / 67; Pulse 54; Resp 16 S; Temp 98.1(TE); Pulse Ox 96% on R/A; aa5 16:30 BP 172 / 70; Pulse 62; Resp 18; Temp 98; Pulse Ox 98% on R/A; mg2 18:00 BP 170 / 70; Pulse 78; Resp 18; Temp 98.2(O); Pulse Ox 98% ; mg2 ED Course: 15:27 Patient arrived in ED. rg4 15:32 Arm band placed on. aa5 15:33 Triage completed. aa5 15:37 Jose Lloyd, ABBIE is Primary Nurse. rv 15:40 Homar Munoz MD is Attending Physician. chris 16:29 EKG done, by manufacturing lab technician. reviewed by Homar Munoz MD. sm3 16:40 Patient has correct armband on for positive identification. Pulse ox on. NIBP on. Door mg2 closed. Warm blanket given. 16:40 No provider procedures requiring assistance completed. Inserted saline lock: 20 gauge mg2 in right antecubital area, using aseptic technique. Blood collected. 16:42 Lorena Saenz MD is Hospitalizing Provider. chris 16:47 XRAY Chest (1 view) In Process Unspecified. EDMS 18:09 Patient admitted, IV remains in place. mg2 Administered Medications: 16:36 Drug: SOLU-Medrol 125 mg Route: IVP; Site: right antecubital; mg2 18:05 Follow up: Response: No adverse reaction; Marked relief of symptoms mg2 16:37 Drug: Rocephin 1 grams Route: IV; Rate: per protocol; Site: right antecubital; mg2 18:06 Follow up: Response: No adverse reaction; IV Status: Completed infusion mg2 16:37 Drug: Zithromax 500 mg Route: PO; mg2 18:06 Follow up: Response: No adverse reaction mg2 16:38 Drug: AtroVENT Aerosol 0.5 mg Route: Inhalation; mg2 18:06 Follow up: Response: No adverse reaction mg2 16:39 Drug: Xopenex 2.5 mg Route: Inhalation; mg2 18:07 Follow up: Response: No adverse reaction mg2 Outcome: 16:48 Decision to Hospitalize by Provider. chris 18:09 Admitted to Med/surg accompanied by tech, via wheelchair, room 212, with chart, Report mg2 called to ABBIE López 18:09 Condition: stable 18:09 Instructed on the need for admit, Demonstrated understanding of instructions. 18:09 Patient left the ED. mg2 Signatures: Dispatcher [employer] EDMS Homar Munoz MD MD cha Calderon, Audri, RN RN aa5 Cally Cordova rg4 Maciel High RN RN mg2 Melissa Montague sm3 Jose Lloyd, RN RN rv Corrections: (The following items were deleted from the chart) 15:35 15:34 BP 186 / 63; Pulse 54bpm; Resp 16bpm; Spontaneous; Pulse Ox 96% RA; Temp 98.1F aa5 Temporal; aa5 15:35 15:34 BP 186 / 63; Pulse 54bpm; Resp 16bpm; Spontaneous; Pulse Ox 96% RA; Temp 98.1F aa5 Temporal; aa5
--- NOTE | 2019-01-02 16:49 | EDPHYS ---
Physician Documentation [facility] Name: Alexis Urbano Age: 63 yrs Sex: Male : 1955 Arrival Date: 01/02/2019 Time: 15:27 Bed 23 Private MD: ED Physician Homar Munoz HPI: 01/02 16:14 This 63 yrs old Male presents to ER via Ambulatory with complaints of Cough. chris 16:14 The patient or guardian reports cough, difficulty breathing. Onset: The chris symptoms/episode began/occurred. Severity of symptoms: At their worst the symptoms were mild, in the emergency department the symptoms are unchanged. Modifying factors: The symptoms are alleviated by nothing. Associated signs and symptoms: The patient has no apparent associated signs or symptoms. The patient has not experienced similar symptoms in the past. Historical: - Allergies: 15:34 No Known Allergies; aa5 - PMHx: 15:34 Diabetes - IDDM; Dialysis; ESRD; GERD; Hypertension; aa5 - Immunization history:: Flu vaccine is up to date. - Social history:: Smoking status: Patient uses tobacco products, smokes one-half pack cigarettes per day. - Ebola Screening: : No symptoms or risks identified at this time. ROS: 16:15 Constitutional: Negative for fever, chills, and weight loss, Eyes: Negative for injury, chris pain, redness, and discharge, ENT: Negative for injury, pain, and discharge, Neck: Negative for injury, pain, and swelling, Cardiovascular: Negative for chest pain, palpitations, and edema, Abdomen/GI: Negative for abdominal pain, nausea, vomiting, diarrhea, and constipation, Back: Negative for injury and pain, : Negative for injury, bleeding, discharge, and swelling, MS/Extremity: Negative for injury and deformity, Skin: Negative for injury, rash, and discoloration, Neuro: Negative for headache, weakness, numbness, tingling, and seizure, Psych: Negative for depression, anxiety, suicide ideation, homicidal ideation, and hallucinations, Allergy/Immunology: Negative for hives, rash, and allergies, Endocrine: Negative for neck swelling, polydipsia, polyuria, polyphagia, and marked weight changes. 16:15 Respiratory: Positive for cough, wheezing, inspiratory, expiratory. Exam: 16:15 Constitutional: This is a well developed, well nourished patient who is awake, alert, chris and in no acute distress. Head/Face: Normocephalic, atraumatic. Eyes: Pupils equal round and reactive to light, extra-ocular motions intact. Lids and lashes normal. Conjunctiva and sclera are non-icteric and not injected. Cornea within normal limits. Periorbital areas with no swelling, redness, or edema. ENT: Nares patent. No nasal discharge, no septal abnormalities noted. Tympanic membranes are normal and external auditory canals are clear. Oropharynx with no redness, swelling, or masses, exudates, or evidence of obstruction, uvula midline. Mucous membranes moist. Neck: Trachea midline, no thyromegaly or masses palpated, and no cervical lymphadenopathy. Supple, full range of motion without nuchal rigidity, or vertebral point tenderness. No Meningismus. Chest/axilla: Normal chest wall appearance and motion. Nontender with no deformity. No lesions are appreciated. Cardiovascular: Regular rate and rhythm with a normal S1 and S2. No gallops, murmurs, or rubs. Normal PMI, no JVD. No pulse deficits. Abdomen/GI: Soft, non-tender, with normal bowel sounds. No distension or tympany. No guarding or rebound. No evidence of tenderness throughout. Back: No spinal tenderness. No costovertebral tenderness. Full range of motion. Skin: Warm, dry with normal turgor. Normal color with no rashes, no lesions, and no evidence of cellulitis. MS/ Extremity: Pulses equal, no cyanosis. Neurovascular intact. Full, normal range of motion. Neuro: Awake and alert, GCS 15, oriented to person, place, time, and situation. Cranial nerves II-XII grossly intact. Motor strength 5/5 in all extremities. Sensory grossly intact. Cerebellar exam normal. Normal gait. Psych: Awake, alert, with orientation to person, place and time. Behavior, mood, and affect are within normal limits. 16:15 Respiratory: the patient does not display signs of respiratory distress, Respirations: no acute changes, Breath sounds: decreased breath sounds, that are mild, rhonchi, + upper airway congestion. wheezing: Respiratory rate: 54 Vital Signs: 15:34 BP 179 / 67; Pulse 54; Resp 16 S; Temp 98.1(TE); Pulse Ox 96% on R/A; aa5 16:30 BP 172 / 70; Pulse 62; Resp 18; Temp 98; Pulse Ox 98% on R/A; mg2 18:00 BP 170 / 70; Pulse 78; Resp 18; Temp 98.2(O); Pulse Ox 98% ; mg2 MDM: 15:40 Patient medically screened. [facility] 16:16 Data reviewed: vital signs, nurses notes, lab test result(s), EKG, radiologic studies, chris plain films. 01/02 16:14 Order name: Basic Metabolic Panel; Complete Time: 17:49 [facility] 01/02 16:14 Order name: CBC with Diff; Complete Time: 17:49 [facility] 01/02 16:14 Order name: LFT's; Complete Time: 17:49 [facility] 01/02 16:14 Order name: Magnesium; Complete Time: 17:49 [facility] 01/02 16:14 Order name: NT PRO-BNP; Complete Time: 17:49 [facility] 01/02 16:14 Order name: PT-INR; Complete Time: 17:49 [facility] 01/02 16:14 Order name: Troponin (emerg Dept Use Only); Complete Time: 17:49 [facility] 01/02 16:14 Order name: XRAY Chest (1 view); Complete Time: 17:49 [facility] 01/02 16:14 Order name: Ptt, Activated; Complete Time: 17:49 [facility] 01/02 16:41 Order name: CT Chest Wo Con 01/02 17:45 Order name: CT; Complete Time: 17:49 EDME 01/02 16:14 Order name: EKG; Complete Time: 16:15 [facility] 01/02 16:14 Order name: Cardiac monitoring; Complete Time: 16:38 [facility] 01/02 16:14 Order name: EKG - Nurse/Tech; Complete Time: 16:38 [facility] 01/02 16:14 Order name: IV Saline Lock; Complete Time: 16:38 [facility] 01/02 16:14 Order name: Labs collected and sent; Complete Time: 16:38 [facility] 01/02 16:14 Order name: O2 Per Protocol; Complete Time: 16:38 [facility] 01/02 16:14 Order name: O2 Sat Monitoring; Complete Time: 16:38 [facility] Administered Medications: 16:36 Drug: SOLU-Medrol 125 mg Route: IVP; Site: right antecubital; mg2 18:05 Follow up: Response: No adverse reaction; Marked relief of symptoms mg2 16:37 Drug: Rocephin 1 grams Route: IV; Rate: per protocol; Site: right antecubital; mg2 18:06 Follow up: Response: No adverse reaction; IV Status: Completed infusion mg2 16:37 Drug: Zithromax 500 mg Route: PO; mg2 18:06 Follow up: Response: No adverse reaction mg2 16:38 Drug: AtroVENT Aerosol 0.5 mg Route: Inhalation; mg2 18:06 Follow up: Response: No adverse reaction mg2 16:39 Drug: Xopenex 2.5 mg Route: Inhalation; mg2 18:07 Follow up: Response: No adverse reaction mg2 Disposition: 01/02/19 16:48 Hospitalization ordered by Lorena Saenz for Inpatient Admission. Preliminary diagnosis are Cough, Hemoptysis, End stage renal disease, Tobacco abuse counseling, Tobacco use, Type 1 diabetes mellitus, Pneumonia due to other specified bacteria. - Bed requested for Telemetry/MedSurg (Inpatient). - Status is Inpatient Admission. mg2 - Condition is Stable. - Problem is new. - Symptoms are unchanged. UTI on Admission? No Signatures: Dispatcher [employer] EDME Jeniffer Joseph Corey, MD MD cha Calderon, Audri, RN RN aa5 Maciel High RN RN mg2 Corrections: (The following items were deleted from the chart) 16:44 16:14 Chest Pa And Lat (2 Views)+[email or web address] ordered. [facility] EDME 17:31 16:48 Hospitalization Ordered by Lorena Saenz MD for Inpatient Admission. Preliminary bd diagnosis is Cough; Hemoptysis; End stage renal disease; Tobacco abuse counseling; Tobacco use; Type 1 diabetes mellitus. Bed requested for Telemetry/MedSurg (Inpatient). Status is Inpatient Admission. Condition is Stable. Problem is new. Symptoms are unchanged. UTI on Admission? No. chris 17:50 17:31 01/02/2019 16:48 Hospitalization Ordered by Lorena Saenz MD for Inpatient chris Admission. Preliminary diagnosis is Cough; Hemoptysis; End stage renal disease; Tobacco abuse counseling; Tobacco use; Type 1 diabetes mellitus. Bed requested for Telemetry/MedSurg (Inpatient). Status is Inpatient Admission. Condition is Stable. Problem is new. Symptoms are unchanged. UTI on Admission? No. bd 18:09 17:50 01/02/2019 16:48 Hospitalization Ordered by Lorena Saenz MD for Inpatient mg2 Admission. Preliminary diagnosis is Cough; Hemoptysis; End stage renal disease; Tobacco abuse counseling; Tobacco use; Type 1 diabetes mellitus; Pneumonia due to other specified bacteria. Bed requested for Telemetry/MedSurg (Inpatient). Status is Inpatient Admission. Condition is Stable. Problem is new. Symptoms are unchanged. UTI on Admission? No. chris
[2019-01-02 16:58] LABS: Absolute Lymphocytes (CBC) 0.6 K/uL (0.7-4.9); Basophils % 2.4 % (0-1.3); Hematocrit 34.6 % (39.6-49.0); Lymphocytes % 14.8 % (15.3-44.8); MPV 8.9 fL (7.6-11.3); Protime INR 0.96; RBC Red Blood Cell Count 3.72 M/uL (4.33-5.43)
--- NOTE | 2019-01-02 17:07 | RAD REPORT ---
EXAM DESCRIPTION: RAD - Chest Single View - 01/02/2019 4:47 pm CLINICAL HISTORY: Cough, COPD COMPARISON: September 25 TECHNIQUE: AP portable chest image was obtained 1634 hours . FINDINGS: Focal density has developed in the left midlung field. In the acute clinical setting this is most likely an pneumonia. Mass lesion is unlikely but follow-up is recommended after medical manag ement. Right upper lobe markings are somewhat prominent but not clearly different from comparison. St able cardiomegaly is present. Vasculature is mildly prominent. Significant acute failure is doubtful. No measurable pleural effusion and no pneumothorax. No acute bony abnormality seen. No acute aortic findings suspected. IMPRESSION: Small left midlung field pneumonia. Follow-up 4-6 weeks after medical management recommended to assure complete clearing.
--- NOTE | 2019-01-02 17:41 | RAD REPORT ---
EXAM DESCRIPTION: CT - Thorax Wo Con - 01/02/2019 5:17 pm CLINICAL HISTORY: Hemoptysis, productive cough COMPARISON: Portable chest January 02, 2019, CT chest 2011 TECHNIQUE: Axial 5 mm thick images of the chest were obtained without IV contrast. All CT scans are performed using dose optimization technique as appropriate and may include automated exposure control or mA/KV adjustment according to patient size. FINDINGS: Substernal thyroid tissue is present similar to comparison. In the anterior mid left lung field there is a 4 centimeter area of irregular opacification present. Air bronchograms are present. Bronchial dilatation is seen in this region. This is the correlate to the chest film finding. In the acute clinical setting, pneumonia is still favored. Continued close follow-up is needed to assure remington aring. A 2.5 centimeter fall a cystic cavity is present in the lower left lung field. A few small areas of n odularity are present in the right upper lobe along with calcifications. Scarring changes are present . No pleural thickening or pleural effusion. No pneumothorax. Multiple pretracheal lymph nodes are present. Lymph node is present along the lateral margin of the a ortic arch on the left. No gross aortic or pulmonary artery finding suspected. Assessment is limited in the absence of IV contrast. No pericardial effusion. No chest wall mass or abnormal axillary lymphadenopathy. Limited upper abdomen imaging shows nodularity to the liver capsule with a prominent left lobe. Splee n is prominent. No adrenal abnormality. IMPRESSION: A 4 centimeter area of irregular parenchyma is present in the anterior mid left lung fie ld. In the acute clinical setting, pneumonia remains favored but continued close follow-up is needed to a ssure complete clearing. Mediastinal lymph nodes are probably reactive but can be monitored as well. Repeat CT imaging in 4-6 weeks could be performed to evaluate for any resolution. Cirrhotic liver changes are suspected and can be correlated with liver function.
[2019-01-02 17:46] LABS: ALT/SGPT 12 U/L (12-78); AST/SGOT 13 U/L (15-37); Albumin 3.5 g/dL (3.4-5.0); Alkaline Phosphatase 114 U/L (45-117); BUN Blood Urea Nitrogen 22 mg/dL (7-18); Bicarbonate 28 mmol/L (21-32); Bilirubin Direct 0.2 mg/dL (0-0.2); Bilirubin Total 0.4 mg/dL (0.2-1.0); Glucose Level 152 mg/dL (74-106); Magnesium 2.5 mg/dL (1.8-2.4); NT PRO-BNP > 35000 pg/mL (<125); Potassium 3.8 mmol/L (3.5-5.1); Protein, Total 7.4 g/dL (6.4-8.2); Sodium Level 133 mmol/L (136-145); Troponin (Emerg Dept Use Only) < 0.02 ng/mL (0.0-0.045)
[2019-01-02] MEDS ORDERED: D50W 25 GM/50 ML SYRINGE IV PRN (18:15)
[2019-01-02] MEDS ORDERED: IPRATROPIUM BROM 0.5MG/2.5ML NEB PRN (18:15)
[2019-01-02] MEDS ORDERED: ACETAMINOPHEN 500 MG TAB PO PRN (18:15)
[2019-01-02] MEDS ORDERED: GLUCAGON 1 MG/VIAL IM PRN (18:15)
[2019-01-02] MEDS ORDERED: ALBUTEROL 2.5 MG/3 ML NEB SOL NEB PRN (18:15)
[2019-01-02] MEDS ORDERED: ONDANSETRON 4 MG/2 ML VIAL IV PRN (18:15)
[2019-01-02] MEDS: HYDRALAZINE HCL 20 MG/ML VIAL IV PRN (20:01)
[2019-01-02] MEDS: HYDROCODONE/APAP 10/325 TAB PO PRN (20:26)
[2019-01-02] MEDS: INSULIN -REGULAR HUMAN 50 UNIT/0.5 ML ML SQ SCH (20:28)
[2019-01-02] MEDS ORDERED: CEFTRIAXONE/SWI 1gm 1 GM/10 ML SYR IVP SCH (21:00)
[2019-01-02] MEDS ORDERED: ZOLPIDEM TARTRATE 10 MG TABLET PO PRN (21:24)
[2019-01-02] MEDS: LISINOPRIL 20 MG TAB PO SCH (22:09)
[2019-01-02] MEDS: GABAPENTIN 100 MG CAP PO SCH (22:09)
[2019-01-02] MEDS ORDERED: LACTULOSE 20 GM/30 ML UCUP PO PRN (23:00)
[2019-01-02] MEDS: HYDRALAZINE HCL 25 MG TABLET PO SCH (23:32)
[2019-01-02] MEDS: ATORVASTATIN 10 MG TAB PO SCH (23:33)
[2019-01-02] MEDS: TIZANIDINE 4 MG TABLET PO PRN (23:33)
[2019-01-02] MEDS: cloNIDine HCl 0.1 MG TAB PO SCH (23:33)
[2019-01-03] MEDS: HYDRALAZINE HCL 20 MG/ML VIAL IV PRN (01:38)
[2019-01-03] MEDS: HYDROCODONE/APAP 10/325 TAB PO PRN ×4 (01:39→20:31)
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
[2019-01-03] MEDS ORDERED: HYDRALAZINE HCL 20 MG/ML VIAL IV PRN (04:48)
[2019-01-03 06:47] LABS: Absolute Lymphocytes (CBC) 0.3 K/uL (0.7-4.9); Basophils % 0.2 % (0-1.3); Hematocrit 34.4 % (39.6-49.0); Lymphocytes % 7.5 % (15.3-44.8); MPV 9.2 fL (7.6-11.3)
[2019-01-03 07:03] LABS: Albumin 3.7 g/dL (3.4-5.0); Bilirubin Total 0.4 mg/dL (0.2-1.0); Magnesium 2.5 mg/dL (1.8-2.4); Phosphorus 5.2 mg/dL (2.5-4.9); Potassium 4.6 mmol/L (3.5-5.1); Protein, Total 7.9 g/dL (6.4-8.2)
[2019-01-03] MEDS: INSULIN -REGULAR HUMAN 50 UNIT/0.5 ML ML SQ SCH ×4 (07:30→20:31)
[2019-01-03] MEDS ORDERED: NICARDIPINE HCL 25 MG in NA CHLORIDE 0.9% 240 ML IV PRN (08:17)
[2019-01-03] MEDS: cloNIDine HCl 0.1 MG TAB PO SCH ×2 (08:23→20:28)
[2019-01-03] MEDS: GABAPENTIN 100 MG CAP PO SCH ×3 (08:24→20:30)
[2019-01-03] MEDS: LIDOCAINE 4% PATCH TOP SCH (08:25)
[2019-01-03] MEDS: LISINOPRIL 20 MG TAB PO SCH ×2 (08:25→20:30)
[2019-01-03] MEDS: HYDRALAZINE HCL 25 MG TABLET PO SCH ×3 (08:26→20:30)
[2019-01-03 08:57] LABS: Blood Morphology Comment NOT SEEN (NOT SEEN); Platelet Estimate ADEQ
[2019-01-03] MEDS ORDERED: CEFTRIAXONE/SWI 1gm 1 GM/10 ML SYR IVP SCH (09:00)
[2019-01-03] MEDS: TOBRADEX 0.3-0.1% OPTH SUSP OPTH SCH ×2 (09:00→20:31)
--- NOTE | 2019-01-03 09:59 | EKG ---
Test Date: 2019-01-02 Test Time: 16:21:15 [employer] Salesperson: ALDO MEASUREMENT RESULTS: Intervals: Rate: 52 WI: 164 QRSD: 94 QT: 526 QTc: 489 Crocker: P: 47 WI: 164 QRS: 23 T: 141 INTERPRETIVE STATEMENTS: Sinus bradycardia Possible Left atrial enlargement ST & T wave abnormality, consider inferolateral ischemia Prolonged QT Abnormal ECG Compared to ECG 09/25/2018 19:35:05 Possible ischemia now present Sinus rhythm no longer present Atrial premature complex(es) no longer present ST (T wave) deviation still present Electronically Signed On 01-03-19 09:57:24 CDT by Jose Francisco Mckeon
[2019-01-03] MEDS: AZITHROMYCIN IV 500 MG in NA CHLORIDE 0.9% 250 ML IVPB SCH ×2 (10:09→10:32)
--- NOTE | 2019-01-03 12:33 | RAD REPORT ---
EXAM DESCRIPTION: CT - Head Brain Wo Cont - 01/03/2019 12:26 pm CLINICAL HISTORY: Headache COMPARISON: August 2013 CT head TECHNIQUE: Axial 5 mm thick images of the head were obtained without IV contrast. All CT scans are performed using dose optimization technique as appropriate and may include automated exposure control or mA/KV adjustment according to patient size. FINDINGS: No intracranial hemorrhage, mass, edema or shift of mid-line structures. No acute infarcti on changes seen. No abnormal extra-axial fluid collections. Ventricles are normal. No significant atr ophy changes. Chronic ischemic changes are evident but appear mild. Mastoid air cells and visualized portions of the paranasal sinuses are clear. No acute bony findings. IMPRESSION: Negative non-contrast CT head examination for acute finding.
--- NOTE | 2019-01-03 13:27 | P.CNS ---
Date of Consult: 01/03/19 Chief Complaint: Hemoptysis History of Present Illness: Patient is 63 years of age admitted with acute hemoptysis is an active heavy smoker and stage renal disease found to have a pneumonia in his lungs pleural hypertension still short of breath no prior history of obstructive airways disease denies any fever or weight Allergies No Known Drug Allergies Allergy (Mild, Verified 09/26/18 00:15) Unknown Home Medications: Clonidine HCl [Catapres] 0.2 mg PO BID 01/02/19 Gabapentin [Neurontin] 100 mg PO TID 01/02/19 Hydralazine HCl [Apresoline] 100 mg PO TID 01/02/19 Hydrocodone 10/APAP 325 [[place] 103[address]] 1 tab PO Q6H PRN 01/02/19 Lactulose 20 gm PO DAILYPRN PRN 01/02/19 Lisinopril [Prinivil] 20 mg PO BID 01/02/19 Pravastatin Sodium [Pravachol] 40 mg PO BEDTIME 01/02/19 Tizanidine HCl 4 mg PO BID 01/02/19 Tobramycin/Dexamethasone [Tobramycin-Dexameth Ophth Susp] 2 gtt OP BID 01/02/19 Zolpidem Tartrate [Ambien] 10 mg PO BEDTIME 01/02/19 Fluticasone/Salmeterol [Advair 250-50 Diskus] 1 each IH BID #1 blst.w.dev - Past Medical/Surgical History Diabetic: Yes -: Hepatitis-C (cured) -: HTN -: Hyperlipidemia -: Chronic pain -: Chronic anemia -: End-stage renal disease on hemodialysis (MWF) -: Diabetes mellitus type 2 -: Chronic pain -: Chronic anemia -: knee replacement -: ankle heel spur removed -: ankle surgery -: toe surgery -: back surgery -: TENS implant Psychosocial/ Personal History: Patient is . He has 2 children - Family History Sister Medical History: Diabetes, Cancer Notes: colon ca Brother Medical History: Hypertension, Diabetes dad Medical History: Hypertension mom Medical History: Hypertension Notes: dementia - Social History Smoking Status: Current every day smoker Alcohol use: No CD- Drugs: No Caffeine use: Yes Place of Residence: Home Review of Systems 10-point ROS is otherwise unremarkable General: Weakness Respiratory: Cough, Shortness of Breath, Hemoptysis Physical Examination Temp Pulse Resp BP Pulse Ox 97.4 F 75 15 156/63 H 98 01/03/19 09:05 01/03/19 11:00 01/03/19 11:00 01/03/19 11:00 01/03/19 11:00 General: Alert, In no apparent distress, Oriented x3 Respiratory: Expiratory wheezes Cardiovascular: No edema, Regular rate/rhythm, Normal S1 S2 Gastrointestinal: Normal bowel sounds, Soft and benign Musculoskeletal: No clubbing, No swelling Integumentary: No rashes, No breakdown Neurological: Normal gait, Normal speech, Normal strength at 5/5 x4 extr Laboratory Data (last 24 hrs) 01/02/19 16:30: PT 11.3, INR 0.96, APTT 30.6 01/02/19 16:30: WBC 3.9 L, Hgb 11.4 L, Hct 34.6 L, Plt Count 137 L 01/02/19 16:30: Sodium 133 L, Potassium 3.8, BUN 22 H, Creatinine 4.76 H, Glucose 152 H, Magnesium 2.5 H, Total Bilirubin 0.4, AST 13 L, ALT 12, Alkaline Phosphatase 114 - Problems (1) COPD exacerbation Current Visit: Yes Status: Acute Plan: That the patient has COPD has a pneumonia in the left lung left lower lobe in addition to a very thin wall cavity with no associated inflammatory changes of the left lower lobe CBCs unremarkable he has end-stage renal disease is compliant with his dialysis blood pressure was elevated patient has been console not to smoke he probably has underlying obstructive airways disease E can be discharged home on a cephalosporin and and bronchodilator to follow up with me in 2 weeks will follow up with chest x-ray infiltrate is prominent on the x-ray CT scan reviewed there is known lung mass
[2019-01-03] MEDS: IPRATROPIUM BROM 0.5MG/2.5ML NEB SCH ×2 (14:29→21:00)
[2019-01-03] MEDS: predniSONE 20 MG TAB PO SCH ×2 (14:34→20:30)
[2019-01-03] MEDS: TIZANIDINE 4 MG TABLET PO PRN (14:49)
--- NOTE | 2019-01-03 15:41 | PN ---
Date of Progress Note: 01/03/2019 Subjective: Patient seen and examined. Chart reviewed and case discussed with RN. Medications list reviewed. Patient has uncontrolled blood pressure throughout the night, not responding to IV hydral azine. Case also discussed with Dr. Soler. No need for bronchoscopy as CT scan does not show any mass. Physical Examination: Vital Signs: Temperature 97.6, heart rate 68, blood pressure 230/92, respirations 16, O2 91% on room air. General: Awake, alert and oriented x3, in some mild distress, ill-appearing male. CV: S1, S2. Regular rate and rhythm. Peripheral pulses present. Respiratory: Diminished breath sounds at the bases. No wheezing or stridor. No use of accessory mu scles. Gastrointestinal: Abdomen is soft, nontender, nondistended. Positive bowel sounds. Extremities: No clubbing, cyanosis, pedal edema. Neurologic: Nonfocal. Cranial nerves 2 through 12 intact grossly. Laboratory Data: Sodium 133, potassium 4.6, chloride 97, CO2 26, BUN 31, creatinine 6.53, glucose 18 7, calcium 7.8, phosphorus 5.2, magnesium 2.5. WBC 4, H and H 11.3 and 34.4, platelets 151, neutroph ils 89%. Blood cultures and sputum cultures pending. Assessment/plan: A 63-year-old male with hemoptysis, likely secondary to pneumonia. CT scan of the chest did not show any mass. Appreciate Pulmonology input. Recommend outpatient followup for him. 1.Pneumonia, left middle lobe. We will continue with IV antibiotics. We will follow up with blood cultures and sputum cultures. 2.End-stage renal disease, on hemodialysis. We will continue with dialysis as scheduled. Appreciate Nephrology input. Avoid NSAIDs and nephrotoxins. 3.Leukopenia, stable. No neutropenia. 4.Anemia of chronic disease, likely due to chronic kidney disease. We will monitor H and H, stable. 5.Diabetes mellitus type 2, insulin requiring with hyperglycemia and end-stage renal disease. We wi ll continue sliding scale insulin and monitor Accu-Cheks. 6.Hypermagnesemia, stable. 7.Accelerated hypertension, not well controlled, not responding to IV hydralazine. We will switch t o ICU and start on Cardene drip for systolic between 160-180. Do not want to drop blood pressure acu tely by more than 40. 8.History of hepatitis C, chronic without coma, currently with liver cirrhosis. Patient states, he was treated for hepatitis C in the past. 9.Mixed hyperlipidemia, stable. 10.Chronic back pain, midline, without sciatica. Patient has TENS unit, however does not have a rem ote. We will continue with pain medications orally. 11.Deep venous thrombosis prophylaxis. We will continue with SCDs. No chemical anticoagulation due to hemoptysis. 12.Hyperphosphatemia. Plan, likely discharge in the 24-48 hours depending on clinical response. /DHRUV Voice ID: [id number] Report ID: [id number]
--- NOTE | 2019-01-03 17:48 | CON ---
Date of Consultation: 01/03/2019 Reason Of Consultation: Elevated BUN, creatinine, over volume, uncontrolled hypertension. History Of Present Illness: This is a pleasant 63-year-old gentleman, well known to me from dialysis with significant past medical history of end-stage renal disease, on dialysis Monday, Monday, Mon at [facility], diabetes complicated with neuropathy and nephropathy, hepatitis C c omplicated with cirrhosis, hyperlipidemia, hypertension, patient's poor compliant with fluid restrict ion. Yesterday, came to the dialysis. Apparently during the dialysis, his blood pressure had droppe d down for that reason, could not remove more than 1 L. The patient started complaining of cough wit h think of blood in it. For that reason, he was sent to the emergency room and the emergency room CT show with question of lobe cavitary lesion with pneumonia, over volume, over the night, patient admi tted to the floor apparently. He did receive his blood pressure medication at night. His blood pres sure was elevated above 200. For that reason, he was been receiving hydralazine p.r.n. to control hi s blood pressure, but was not controlled. The patient transferred to the ICU. In the ICU, placed on Cardene drip for 30 minute. His blood pressure started to stabilize on the 150-160. Cardene drip h as been discontinued. The patient complaining from blurry vision and headache with nausea. He still have shortness of breath. Past Medical History: Include, 1.Hypertension. 2.Hyperlipidemia. 3.Diabetes complicated with neuropathy and nephropathy. 4.End-stage renal disease, on hemodialysis, Monday, Monday, Monday at [facility]. 5.Hepatitis C complicated with cirrhosis. Allergies: NO KNOWN DRUG ALLERGIES. Social History: Active smoker. Denied alcohol. Denied drug abuse. Family History: Positive for diabetes and cancer. Past Surgical History: Include, AV fistula creation, tonsillectomy, multiple orthopedic surgeries. Review of Systems: Head and Neck: Has headache, has blurred vision. GI: Has nausea. : No polyuria, no dysuria, no hematuria. EPIC BEACON ANALYST: Not applicable. Respiratory: Has cough, has hemoptysis. Cardiovascular: Has shortness of breath. No edema. Endocrine: No polydipsia. Skin: No rash. Neuro: Has headache. Musculoskeletal: No joint pain. Physical Examination: Vital Signs: When I saw the patient, the patient lying in bed, slightly in pain. Blood pressure 156 /63, pulse of 73, afebrile. Chest: Wheezing bilateral with crackles on the right base. Heart: S1, S2. Systolic murmur. Abdomen: Soft. Nontender. Extremity: No edema. Neuro: Pupil reactive. Eye movement within normal limit. Patient moving 4 extremities without any focal. No neck stiffness. Medications: Home medications include, hydralazine, lisinopril 20 b.i.d., hydrocodone, lactulose, ga bapentin, clonidine 0.2 b.i.d., pravastatin, tizanidine. Current medication in the hospital includes, breathing treatment, Z-Brian, ceftriaxone, gabapentin, lis inopril 20 b.i.d., Cardene drip, Zofran, and Ambien. Laboratory Data: WBC 4, H and H 11.3/34.4, platelet 151. Sodium 133, potassium 4.6, bicarb 26, BUN 31, creatinine 6.1, calcium 7.8, magnesium 2.5. BNP above 35,000. Procalcitonin not done. CT chest done yesterday that showing 4 cm of irregular parenchyma may represent anterior middle left lung fie ld, possible pneumonia, 2 cm cystic cavitary in the lower left lung with nodularity on the right uppe r lung with calcification. Chest x-ray; cardiomegaly with congestion. Assessment And Plan: 1.End-stage renal disease with over volume and hypertension. No hyperkalemia or acidosis. I am goi ng to do 2 hour of dialysis today for sequential to relieve over volume status for the patient. Then , we will do another session of full dialysis tomorrow. 2.I am not going to use any heparin until we clear up the finding on the CT. 3.Urgent hypertension with symptomatic headache. I agree with current treatment. We will hold Card arnel drip, if the blood pressure below 160. I again resume home medication. We will utilize the bloo d pressure for more ultrafiltration today and we will monitor given the headache and uncontrolled blo od pressure over the night. We will go ahead and to rule out any intracranial complication. We will get CT brain. 4.Headache as above. 5.Diabetes as by primary. 6.Cirrhosis, stable. We will follow up with the primary. 7.Over volume. The patient is going to be challenged today. Thank you Dr. Reinoso, for allowing us to participate in the care of your patient. COURTNEY Voice ID: [id number] Report ID: [id number]
[2019-01-03 18:15] VITALS: BMI 27.2
[2019-01-03] MEDS: CEFUROXIME 250 MG TAB PO SCH (20:24)
[2019-01-03] MEDS: ATORVASTATIN 10 MG TAB PO SCH (20:30)
[2019-01-03] MEDS: ARFORMOTEROL TARTRATE 15 MCG/2 ML VIAL.NEB NEB SCH (21:00)
[2019-01-04] MEDS: IPRATROPIUM BROM 0.5MG/2.5ML NEB SCH ×3 (01:55→13:50)
[2019-01-04] MEDS: HYDROCODONE/APAP 10/325 TAB PO PRN ×2 (02:37→14:06)
[2019-01-04] MEDS: TIZANIDINE 4 MG TABLET PO PRN (02:37)
[2019-01-04 05:16] LABS: Absolute Lymphocytes (CBC) 0.1 K/uL (0.7-4.9); Basophils % 0.2 % (0-1.3); Hematocrit 36.2 % (39.6-49.0); Lymphocytes % 1.6 % (15.3-44.8); MPV 9.1 fL (7.6-11.3); RBC Red Blood Cell Count 3.89 M/uL (4.33-5.43)
[2019-01-04 05:43] LABS: Albumin 3.5 g/dL (3.4-5.0); Bilirubin Total 0.4 mg/dL (0.2-1.0); Protein, Total 7.6 g/dL (6.4-8.2)
[2019-01-04] MEDS: INSULIN -REGULAR HUMAN 50 UNIT/0.5 ML ML SQ SCH ×3 (07:30→15:15)
[2019-01-04] MEDS: CEFUROXIME 250 MG TAB PO SCH (08:25)
[2019-01-04] MEDS: HYDRALAZINE HCL 25 MG TABLET PO SCH ×2 (08:25→14:04)
[2019-01-04] MEDS: cloNIDine HCl 0.1 MG TAB PO SCH (08:25)
[2019-01-04] MEDS: predniSONE 20 MG TAB PO SCH (08:25)
[2019-01-04] MEDS: GABAPENTIN 100 MG CAP PO SCH ×2 (08:25→14:05)
[2019-01-04] MEDS: LISINOPRIL 20 MG TAB PO SCH (08:26)
[2019-01-04] MEDS: LIDOCAINE 4% PATCH TOP SCH (08:26)
[2019-01-04] MEDS: TOBRADEX 0.3-0.1% OPTH SUSP OPTH SCH (08:26)
[2019-01-04] MEDS: ARFORMOTEROL TARTRATE 15 MCG/2 ML VIAL.NEB NEB SCH (09:12)
--- NOTE | 2019-01-04 10:52 | P.PN ---
Subjective Date of Service: 01/04/19 Chief Complaint: Hemoptysis Subjective: Improving Pt with ESRD presented with SOB and Hemoptysis Today seen and examined during HD no new complaints feels better Pt can be discharged from nephrology point of view after HD if O2 saturation is good Physical Examination - Vital Signs Temperature: 97.3 F Blood Pressure: 155/57 Pulse: 68 Respirations: 14 Pulse Ox (%): 99 - Physical Exam General: In no apparent distress, Oriented x3 HEENT: Atraumatic Neck: Supple, 2+ carotid pulse no bruit Respiratory: Clear to auscultation bilaterally, Normal air movement Cardiovascular: No edema, Regular rate/rhythm, Normal S1 S2, No gallops, No rubs , No murmurs Gastrointestinal: Soft and benign Assessment And Plan - Plan ESRd on HD MWF HD today renal dose meds Hempoptysisi resolved now F/U with pulmonary as an OP HTN controlled now Anemia of chronic disease nio need for DEXTER at this time
[2019-01-04 11:02] VITALS: O2SAT 96
[2019-01-04 16:07] VITALS: BP 166/62; TEMP 97.9
--- NOTE | 2019-01-04 17:16 | PN ---
Date of Progress Note: 01/04/2019 Subjective: Patient is seen and examined. Chart reviewed and case discussed with RN and Dr. Saida harrington. Patient has been doing well. Requiring supplemental oxygen. States his breathing is better. Medication List: Reviewed. Physical Examination: Vital Signs: Temperature 97.3, heart rate 68, blood pressure 155/57, respirations 14, O2 of 99% on 2 L via nasal cannula. GENERAL: Awake, alert, oriented x3, not in any acute distress. CV: S1, S2. Regular rate and rhythm. Peripheral pulses present. Respiratory: Moving air well bilaterally except at the bases, some diminished breath sounds, worse o n the right. Mild crackles present. Gastrointestinal: Abdomen is soft, nontender, nondistended. Positive bowel sounds. No guarding or rigidity. Extremities: No clubbing, cyanosis, or edema. Neurologic: Nonfocal. Cranial nerves 2 through 12 intact grossly. No focal neurological deficit. Speech is normal. Skin: No rashes. Normal skin turgor. Psych: Mood is okay. Affect is full. Insight and judgment are good. Laboratory Data: Sodium 131, potassium 5, chloride 95, CO2 of 25, BUN 44, creatinine 8, glucose 172, calcium 8. WBC 7.3, H and H 12.2 and 36.2, platelets 146, neutrophils 95%. Blood cultures, no grow th to date. Sputum cultures, no growth to date. Assessment: A 63-year-old male with. 1.Hemoptysis, likely secondary to pneumonia. We will repeat CT scan in 2 to 3 months for resolution . 2.Pneumonia, left middle lobe. We will continue with IV antibiotics. Cultures are negative to date . Appreciate Pulmonology input. 3.End-stage renal disease, on hemodialysis. We will continue dialysis as scheduled. Patient will b e going for session today. We will avoid NSAIDs and nephrotoxins. Monitor creatinine level. Patien t's potassium is somewhat borderline at 5. We will monitor. 4.Leukopenia, improved. 5.Anemia of chronic disease, likely due to chronic kidney disease. We will continue to monitor H an d H, stable. No need for transfusion at this time. 6.Hypermagnesemia, improved. 7.Accelerated hypertension, now off Cardene drip. Blood pressure is stable. Continue to monitor cl osely. 8.History of hepatitis C, chronic without coma with liver cirrhosis, stable. 9.Mixed hyperlipidemia, stable. Continue medications. 10.Chronic back pain, midline, without sciatica. Continue pain medications. 11.Hyperphosphatemia, corrected. 12.Deep venous thrombosis prophylaxis with SCDs. No chemical anticoagulation due to hemoptysis. Li julissa discharge in the next 24 hours depending on clinical response. Patient is requiring oxygenation currently. 13.Acute respiratory distress. SA/MODL Voice ID: [id number] Report ID: [id number]
--- NOTE | 2019-01-05 22:43 | DS ---
Date of Discharge: 01/04/2019 Consultants: Dr. Rand, Nephrology; Dr. Soelr with Pulmonology. Admitting Diagnoses: 1.Hemoptysis. 2.Left middle lobe pneumonia. 3.End-stage renal disease, on hemodialysis. 4.Leukopenia. 5.Anemia of chronic disease secondary to chronic kidney disease. 6.Diabetes mellitus type 2, insulin requiring with hyperglycemia. 7.Hypermagnesemia. 8.Essential hypertension. 9.History of hepatitis C, chronic without coma. 10.Mixed hyperlipidemia. 11.Chronic back pain, midline, without sciatica. Discharge Diagnoses: 1.Hemoptysis, resolved, likely secondary to pneumonia. 2.Left middle lobe pneumonia, improving. 3.End-stage renal disease, on hemodialysis. Stable. 4.Leukopenia, improved. 5.Anemia of chronic disease due to chronic kidney disease, stable. 6.Hypermagnesemia, corrected. 7.Accelerated hypertension, improved. 8.History of hepatitis C, chronic without coma. 9.Mixed hyperlipidemia, stable. 10.Chronic back pain, midline, without sciatica. 11.Hyperphosphatemia, corrected. 12.Acute respiratory distress, resolved. Hospital Course: Patient is a 63-year-old male with end-stage renal disease, diabetes, hypertension, comes in with hemoptysis. Patient was found to have right lower lobe pneumonia. CT scan had shown 4 cm irregular parenchyma in the anterior mid left lung field, favors pneumonia, but will need close followup to ensure complete clearing. Also, showed 2.5 cm area of cystic cavity present in the lower left lung field. Patient was seen by Pulmonology. Pulmonology did not recommend any bronchoscopy. This was not felt to be any mass likely related to the pneumonia. Patient will need outpatient foll owup with Pulmonology and repeat CT scan for resolution of the cystic area. Patient did well. He re sponded well to IV antibiotics and IV fluids. His blood culture showed no growth. His sputum cultur e showed respiratory ghassan. He was not septic, did not have any fevers. He was somewhat leukopenic, but white blood cell count came up to 7.3. He also has low platelets due to his liver disease. Ove rall, patient did well over the course of the hospital stay. He was able to be weaned off supplement al oxygen. His dialysis therapy was resumed as scheduled. He was seen by his editor index. Patient was then cleared for discharge and was sent home to finish up course of antibiotics and steroids. Followup: Patient needs to follow up with his primary care physician in 2 to 3 days. Follow up with director translation, Dr. Soler in 2 weeks. Return to ER for worsening condition. Diet: Renal. Activity: As tolerated. Medications: As per medication reconciliation list. Time Spent: Total time spent discharging the patient was 34 minutes. For physical exam findings, please see progress note dictated on the day of discharge. /DHRUV Voice ID: [id number] Report ID: [id number]
--- OUTSIDE RECORDS SUMMARY | 2019-01-13 17:10 | XMS REPORT ---
:1955 [facility] Address [address] [place] [address] Dr. Meadows [address] [place] [id number] Care Team Providers Name Role Phone JOHN [...] Range Comments PROSTATE SPECIFIC ANTIGEN (BEAKER) (test dqpz=993) 0.8 ng/mL 0.0-4.0 HEPATITIS B SURFACE [id number] 17:11:00 Test Item Value Reference Range Comments HEPATITIS B SURFACE ANTIBODY (BEAKER) (test 612.9 mIU/mL <8.0 muyn=544) PROTHROMBIN [id number] 14:59:00 Test Item Value Reference Range Comments PROTIME (BEAKER) (test gsur=547) 15.6 seconds 11.7-14.7 INR (BEAKER) (test zeuf=490) 1.2 <=5.9 RECOMMENDED COUMADIN/WARFARIN INR THERAPY RANGESSTANDARD DOSE: 2.0 - 3.0 Includes: PROPHYLAXIS forvenous thrombosis, systemic embolization; TREATMENT for venous thrombosis and/or pulmonary embolus.HIGH RISK: Target INR is 2.5-3.5 for patients with mechanical heart valves.BASIC METABOLIC [id number] 14:58: 00 Test Item Value Reference Range Comments SODIUM (BEAKER) (test 137 meq/L 136-145 lovm=791) POTASSIUM (BEAKER) (test 4.7 meq/L 3.5-5.1 kzio=509) CHLORIDE (BEAKER) (test 97 meq/L 98-107 aipl=325) CO2 (BEAKER) (test 30 meq/L 22-29 ddae=958) BLOOD UREA NITROGEN 31 mg/dL 7-21 (BEAKER) (test vphh=626) CREATININE (BEAKER) (test 5.68 mg/dL 0.57-1.25 gupu=090) GLUCOSE RANDOM (BEAKER) 343 mg/dL 70-105 (test wqio=658) CALCIUM (BEAKER) (test 8.5 mg/dL 8.4-10.2 qoas=305) EGFR (BEAKER) (test 10 mL/min/1.73 sq m ESTIMATED GFR IS NOT diou=4887) ACCURATE CREATININE CLEARANCE IN PREDICTING GLOMERULAR FILTRATION RATE. ESTIMATED GFR IS NOT APPLICABLE FOR DIALYSIS PATIENTS. HEPATIC FUNCTION [id number] 14:53:00 Test Item Value Reference Range Comments TOTAL PROTEIN (BEAKER) (test thiy=982) 7.1 gm/dL 6.0-8.3 ALBUMIN (BEAKER) (test uhhs=7039) 3.2 g/dL 3.5-5.0 BILIRUBIN TOTAL (BEAKER) (test gyda=015) 0.5 mg/dL 0.2-1.2 BILIRUBIN DIRECT (BEAKER) (test cuil=832) 0.2 mg/dL 0.1-0.5 ALKALINE PHOSPHATASE (BEAKER) (test xwkt=188) 124 U/L 40-150 AST (SGOT) (BEAKER) (test xojp=142) 13 U/L 5-34 ALT (SGPT) (BEAKER) (test hflf=911) 7 U/L 6-55 CBC W/PLT COUNT & AUTO [id number] 14:19:00 Test Item Value Reference Range Comments WHITE BLOOD CELL COUNT (BEAKER) (test clmm=900) 8.1 K/ L 3.5-10.5 RED BLOOD CELL COUNT (BEAKER) (test ouko=223) 3.54 M/ L 4.63-6.08 HEMOGLOBIN (BEAKER) (test svaf=526) 10.2 GM/DL 13.7-17.5 HEMATOCRIT (BEAKER) (test lasf=286) 33.2 % 40.1-51.0 MEAN CORPUSCULAR VOLUME (BEAKER) (test dekz=416) 93.8 fL 79.0-92.2 MEAN CORPUSCULAR HEMOGLOBIN (BEAKER) (test 28.8 pg 25.7-32.2 szqa=523) MEAN CORPUSCULAR HEMOGLOBIN CONC (BEAKER) (test 30.7 GM/DL 32.3-36.5 pilu=577) RED CELL DISTRIBUTION WIDTH (BEAKER) (test 14.4 % 11.6-14.4 xdvs=956) PLATELET COUNT (BEAKER) (test muhg=369) 253 K/CU MM 150-450 MEAN PLATELET VOLUME (BEAKER) (test tpqc=102) 10.5 fL 9.4-12.4 NUCLEATED RED BLOOD CELLS (BEAKER) (test 0 /100 WBC 0-0 sfyi=933) NEUTROPHILS RELATIVE PERCENT (BEAKER) (test 64 % wupg=416) LYMPHOCYTES RELATIVE PERCENT (BEAKER) (test 25 % nyuv=852) MONOCYTES RELATIVE PERCENT (BEAKER) (test 8 % rqcq=637) EOSINOPHILS RELATIVE PERCENT (BEAKER) (test 2 % jxdv=125) BASOPHILS RELATIVE PERCENT (BEAKER) (test 1 % lpiz=267) NEUTROPHILS ABSOLUTE COUNT (BEAKER) (test 5.20 K/ L 1.78-5.38 rzdi=473) LYMPHOCYTES ABSOLUTE COUNT (BEAKER) (test 1.98 K/ L 1.32-3.57 jibv=499) MONOCYTES ABSOLUTE COUNT (BEAKER) (test 0.62 K/ L 0.30-0.82 pvwe=065) EOSINOPHILS ABSOLUTE COUNT (BEAKER) (test 0.12 K/ L 0.04-0.54 apkh=862) BASOPHILS ABSOLUTE COUNT (BEAKER) (test 0.11 K/ L 0.01-0.08 ilex=065) IMMATURE GRANULOCYTES-RELATIVE PERCENT (BEAKER) 1 % 0-1 (test pmwk=1363) FLOW PRA CLASS I AND [id number] 12:02:00 Test Item Value Reference Range Comments DATE OF SERUM (BEAKER) (test crbq=5717) [id number] SERUM # (BEAKER) (test iexs=3236) 802138 FLOW PRA CLASS I AND II (test ubsa=6221) See Scanned Report HEPATITIS B SURFACE [id number] 13:18:00 Test Item Value Reference Range Comments HEPATITIS B SURFACE ANTIBODY (BEAKER) (test < mIU/mL <8.0 zlhz=188) [id number] 13:08:00 Test Item Value Reference Range Comments PROSTATE SPECIFIC ANTIGEN (BEAKER) (test fadd=065) 0.9 ng/mL 0.0-4.0 FLOW PRA CLASS I AND [id number] 16:00:00 Test Item Value Reference Range Comments DATE OF SERUM (BEAKER) (test egae=2077) [id number] SERUM # (BEAKER) (test ruft=3694) [id number] FLOW PRA CLASS I AND II (test ckyd=7192) See Scanned Report BASIC METABOLIC [id number] 15:51:00 Test Item Value Reference Range Comments SODIUM (BEAKER) (test 135 meq/L 136-145 ogvd=480) POTASSIUM (BEAKER) (test 4.5 meq/L 3.5-5.1 poge=621) CHLORIDE (BEAKER) (test 92 meq/L 98-107 vqku=591) CO2 (BEAKER) (test 27 meq/L 22-29 osso=587) BLOOD UREA NITROGEN 26 mg/dL 7-21 (BEAKER) (test mwas=732) CREATININE (BEAKER) (test 5.08 mg/dL 0.57-1.25 qdna=862) GLUCOSE RANDOM (BEAKER) 296 mg/dL 70-105 (test udkm=010) CALCIUM (BEAKER) (test 8.7 mg/dL 8.4-10.2 tulk=135) EGFR (BEAKER) (test 12 mL/min/1.73 sq m ESTIMATED GFR IS NOT itmb=5296) ACCURATE CREATININE CLEARANCE IN PREDICTING GLOMERULAR FILTRATION RATE. ESTIMATED GFR IS NOT APPLICABLE FOR DIALYSIS PATIENTS. HEPATIC FUNCTION [id number] 15:48:00 Test Item Value Reference Range Comments TOTAL PROTEIN (BEAKER) (test dwlm=970) 7.3 gm/dL 6.0-8.3 ALBUMIN (BEAKER) (test hsxp=1865) 3.6 g/dL 3.5-5.0 BILIRUBIN TOTAL (BEAKER) (test nbaq=569) 0.6 mg/dL 0.2-1.2 BILIRUBIN DIRECT (BEAKER) (test eurw=198) 0.2 mg/dL 0.1-0.5 ALKALINE PHOSPHATASE (BEAKER) (test hnch=246) 203 U/L 40-150 AST (SGOT) (BEAKER) (test fzcu=226) 17 U/L 5-34 ALT (SGPT) (BEAKER) (test bgfu=515) 14 U/L 6-55 CBC W/PLT COUNT & AUTO [id number] 15:11:00 Test Item Value Reference Range Comments WHITE BLOOD CELL COUNT (BEAKER) (test vcsw=039) 8.0 K/ L 4.0-10.0 RED BLOOD CELL COUNT (BEAKER) (test qozg=660) 3.27 M/ L 4.20-5.80 HEMOGLOBIN (BEAKER) (test crjs=921) 10.2 GM/DL 13.0-16.8 HEMATOCRIT (BEAKER) (test ighm=713) 30.3 % 40.0-50.0 MEAN CORPUSCULAR VOLUME (BEAKER) (test quya=022) 92.6 fL 82.0-98.0 MEAN CORPUSCULAR HEMOGLOBIN (BEAKER) (test 31.2 pg 27.0-33.0 erha=729) MEAN CORPUSCULAR HEMOGLOBIN CONC (BEAKER) (test 33.7 GM/DL 32.0-36.0 jfot=250) RED CELL DISTRIBUTION WIDTH (BEAKER) (test 12.9 % 10.3-14.2 flnv=671) PLATELET COUNT (BEAKER) (test aiaf=570) 248 K/CU MM 150-430 MEAN PLATELET VOLUME (BEAKER) (test hpcq=194) 7.3 fL 6.5-10.5 NUCLEATED RED BLOOD CELLS (BEAKER) (test 0 /100 WBC 0-0 vihy=857) NEUTROPHILS RELATIVE PERCENT (BEAKER) (test 65 % osxl=378) LYMPHOCYTES RELATIVE PERCENT (BEAKER) (test 24 % fncj=416) MONOCYTES RELATIVE PERCENT (BEAKER) (test 8 % cytd=913) EOSINOPHILS RELATIVE PERCENT (BEAKER) (test 3 % iebz=002) BASOPHILS RELATIVE PERCENT (BEAKER) (test 1 % xuyz=823) NEUTROPHILS ABSOLUTE COUNT (BEAKER) (test 5.16 K/ L 1.80-8.00 vhin=655) LYMPHOCYTES ABSOLUTE COUNT (BEAKER) (test 1.89 K/ L 1.48-4.50 hthg=371) MONOCYTES ABSOLUTE COUNT (BEAKER) (test 0.67 K/ L 0.00-1.30 yarl=289) EOSINOPHILS ABSOLUTE COUNT (BEAKER) (test 0.20 K/ L 0.00-0.50 pkjz=548) BASOPHILS ABSOLUTE COUNT (BEAKER) (test 0.07 K/ L 0.00-0.20 ylis=958) 0.00AFB CULTURE + [id number] 19:58:00 Test Item Value Reference Range Comments CULTURE (BEAKER) (test No acid-fast bacilli isolated yemf=3799) in 42 days AFB SMEAR (BEAKER) (test No acid fast bacilli seen zyba=943) AFB CULTURE + [id number] 19:58:00 Test Item Value Reference Range Comments CULTURE (BEAKER) (test No acid-fast bacilli isolated bsha=6999) in 42 days AFB SMEAR (BEAKER) (test No acid fast bacilli seen vqfi=574) AFB CULTURE + [id number] 18:21:00 Test Item Value Reference Range Comments CULTURE (BEAKER) (test No acid-fast bacilli isolated rupy=5510) in 42 days AFB SMEAR (BEAKER) (test No acid fast bacilli seen mfjt=242) POCT-GLUCOSE [id number] 10:30:00 Test Item Value Reference Range Comments POC-GLUCOSE METER (BEAKER) 468 mg/dL 70-110 TESTED AT [facility] [address] [facility] (test xasn=8290) [facility] [address] CREATINE KINASE (CK), TOTAL AND [id number] 08:31:00 Test Item Value Reference Range Comments CREATINE KINASE TOTAL (BEAKER) (test hlaz=693) 42 U/L 29-200 CREATINE KINASE-MB (BEAKER) (test zfna=847) 2.3 ng/mL 0.0-6.6 CREATINE KINASE-MB INDEX (BEAKER) (test rsmz=806) 5.5 % Effective 01/21/2014: CK-MB Reference Range ChangeNew: 0.0-6.6 Previous: 0.0- 4.9CK-MB Reference Range:<6.7 Normal6.7-10.0 Borderline>10.0 AbnormalTROPONIN [id number] 08:31:00 Test Item Value Reference Range Comments TROPONIN I (BEAKER) (test fwkd=600) 0.05 ng/mL 0.00-0.03 Effective 01/21/2014: Reference Range [...] acute neurological disease, and persistent tachyarrhythmia.BASIC METABOLIC [id number] 08:27:00 Test Item Value Reference Range Comments SODIUM (BEAKER) (test 128 meq/L 136-145 rpge=725) POTASSIUM (BEAKER) (test 4.2 meq/L 3.5-5.1 vtvu=130) CHLORIDE (BEAKER) (test 91 meq/L 98-107 bkqh=366) CO2 (BEAKER) (test 20 meq/L 22-29 jvod=570) BLOOD UREA NITROGEN 49 mg/dL 7-21 (BEAKER) (test amrc=314) CREATININE (BEAKER) (test 6.84 mg/dL 0.57-1.25 raur=675) GLUCOSE RANDOM (BEAKER) 655 mg/dL 70-105 (test rbfj=483) CALCIUM (BEAKER) (test 7.7 mg/dL 8.4-10.2 xymq=205) EGFR (BEAKER) (test 8 mL/min/1.73 sq m ESTIMATED GFR IS NOT cxqm=0268) ACCURATE CREATININE CLEARANCE IN PREDICTING GLOMERULAR FILTRATION RATE. ESTIMATED GFR IS NOT APPLICABLE FOR DIALYSIS PATIENTS. [id number] 08:24:00 Test Item Value Reference Range Comments MAGNESIUM (BEAKER) (test bywp=577) 2.4 mg/dL 1.6-2.6 CBC W/PLT COUNT & AUTO [id number] 08:17:00 Test Item Value Reference Range Comments WHITE BLOOD CELL COUNT (BEAKER) (test lzrn=361) 8.9 K/ L 4.0-10.0 RED BLOOD CELL COUNT (BEAKER) (test xphj=408) 3.08 M/ L 4.20-5.80 HEMOGLOBIN (BEAKER) (test fhob=031) 9.7 GM/DL 13.0-16.8 HEMATOCRIT (BEAKER) (test uezy=129) 28.6 % 40.0-50.0 MEAN CORPUSCULAR VOLUME (BEAKER) (test qniv=156) 92.9 fL 82.0-98.0 MEAN CORPUSCULAR HEMOGLOBIN (BEAKER) (test 31.5 pg 27.0-33.0 pxqy=312) MEAN CORPUSCULAR HEMOGLOBIN CONC (BEAKER) (test 33.9 GM/DL 32.0-36.0 fujk=041) RED CELL DISTRIBUTION WIDTH (BEAKER) (test 14.3 % 10.3-14.2 vugh=098) PLATELET COUNT (BEAKER) (test zmob=196) 159 K/CU MM 150-430 MEAN PLATELET VOLUME (BEAKER) (test vsaz=382) 8.7 fL 6.5-10.5 NUCLEATED RED BLOOD CELLS (BEAKER) (test 0 /100 WBC 0-0 awer=472) NEUTROPHILS RELATIVE PERCENT (BEAKER) (test 82 % lvlt=625) LYMPHOCYTES RELATIVE PERCENT (BEAKER) (test 12 % fudd=667) MONOCYTES RELATIVE PERCENT (BEAKER) (test 6 % prwz=660) EOSINOPHILS RELATIVE PERCENT (BEAKER) (test 1 % nrfh=285) BASOPHILS RELATIVE PERCENT (BEAKER) (test 0 % ydgd=913) NEUTROPHILS ABSOLUTE COUNT (BEAKER) (test 7.31 K/ L 1.80-8.00 vuou=533) LYMPHOCYTES ABSOLUTE COUNT (BEAKER) (test 1.06 K/ L 1.48-4.50 sizg=792) MONOCYTES ABSOLUTE COUNT (BEAKER) (test 0.51 K/ L 0.00-1.30 idhy=718) EOSINOPHILS ABSOLUTE COUNT (BEAKER) (test 0.05 K/ L 0.00-0.50 izjb=485) BASOPHILS ABSOLUTE COUNT (BEAKER) (test 0.01 K/ L 0.00-0.20 xqlm=422) 0.00
== END 2019-01-04 17:35 | disposition home or self-care (01) | DRG 193 ==
LOC: ER 15:24 → ERHOLD 17:14 → 2ND 17:57 → 3RD-ICU 01-03 09:05 → 4TH 01-04 12:48
PROVIDERS: ADMIT Family Medicine; ATTEND Family Medicine
DX: J18.9 Pneumonia, unspecified organism (principal); N18.6 End stage renal disease; R04.2 Hemoptysis; I12.0 Hypertensive chronic kidney disease with stage 5 chronic kidney disease or end stage renal disease; E11.22 Type 2 diabetes mellitus with diabetic chronic kidney disease; E11.65 Type 2 diabetes mellitus with hyperglycemia; D72.819 Decreased white blood cell count, unspecified; D63.1 Anemia in chronic kidney disease; E83.41 Hypermagnesemia; Z86.19 Personal history of other infectious and parasitic diseases; E78.2 Mixed hyperlipidemia; M54.9 Dorsalgia, unspecified; E83.39 Other disorders of phosphorus metabolism; R06.03 Acute respiratory distress; Z99.2 Dependence on renal dialysis; K74.60 Unspecified cirrhosis of liver; F17.210 Nicotine dependence, cigarettes, uncomplicated; Z96.659 Presence of unspecified artificial knee joint
CPT/HCPCS: 36415; 70450; 71045; 71250; 80048; 80053; 80076; 82947; 83735; 83880; 84100; 84484; 85025; 85610; 85730; 87040; 87070; 87205; 90935; 93005; 94640; 94760; 96365; 96375; 99285; J0360; J0456; J0696; J2405; J2930; J7030; J7512; J7605

== ENCOUNTER 2019-01-07 19:56 | Observation (INO) | payer OTHER ==
[2019-01-07] MEDS ORDERED: ALBUTEROL 2.5 MG/3 ML NEB SOL ONE (20:52)
[2019-01-07] MEDS ORDERED: IPRATROPIUM BROM 0.5MG/2.5ML ONE (20:52)
[2019-01-07 21:14] LABS: Absolute Lymphocytes (CBC) 0.7 K/uL (0.7-4.9); Basophils % 0.4 % (0-1.3); Hematocrit 38.7 % (39.6-49.0); Lymphocytes % 6.6 % (15.3-44.8); RBC Red Blood Cell Count 4.13 M/uL (4.33-5.43)
[2019-01-07 21:19] LABS: Protime INR 1.02
--- NOTE | 2019-01-07 21:20 | RAD REPORT ---
EXAM DESCRIPTION: RAD - Chest Single View - 01/07/2019 8:22 pm CLINICAL HISTORY: Dyspnea COMPARISON: January 02 TECHNIQUE: AP portable chest image was obtained 2017 hours . FINDINGS: No focal consolidation or mass. Interstitial opacification has increased from comparison. Focal infiltrate left midlung field on the prior study has resolved. Heart and vasculature are normal . No measurable pleural effusion and no pneumothorax. No acute bony abnormality seen. No acute aortic findings suspected. IMPRESSION: Suspected interstitial edema or infiltrate. Resolution of the left midlung field pneumonia since January 02.
[2019-01-07 22:07] LABS: ALT/SGPT 14 U/L (12-78); AST/SGOT 14 U/L (15-37); Albumin 3.6 g/dL (3.4-5.0); Alkaline Phosphatase 118 U/L (45-117); BUN Blood Urea Nitrogen 48 mg/dL (7-18); Bicarbonate 26 mmol/L (21-32); Bilirubin Direct 0.2 mg/dL (0-0.2); Bilirubin Total 0.5 mg/dL (0.2-1.0); CKMB Creatine Kinase MB 3.6 ng/mL (0.3-3.6); Creatine Phosphokinase 65 U/L (39-308); Glucose Level 268 mg/dL (74-106); Lipase 106 U/L (73-393); Magnesium 2.6 mg/dL (1.8-2.4); Potassium 4.9 mmol/L (3.5-5.1); Protein, Total 7.8 g/dL (6.4-8.2); Sodium Level 133 mmol/L (136-145); Troponin (Emerg Dept Use Only) 0.03 ng/mL (0.0-0.045)
[2019-01-07 22:08] LABS: NT PRO-BNP > 175000 pg/mL (<125)
[2019-01-07 22:25] LABS: Blood Morphology Comment NOT SEEN (NOT SEEN); Platelet Estimate ADEQ
--- NOTE | 2019-01-07 23:49 | EDPHYS ---
Physician Documentation [facility] Name: Alexis Urbano Age: 63 yrs Sex: Male : 1955 Arrival Date: 01/07/2019 Time: 20:06 Bed 17 Private MD: ED Physician Ronnie Dent HPI: 01/07 20:32 This 63 yrs old Male presents to ER via Wheelchair with complaints of SOB. tw4 20:32 The patient has shortness of breath at rest. Onset: The symptoms/episode began/occurred tw4 today. Duration: The symptoms are continuous, and are unchanged since they started. The patient's shortness of breath is aggravated by coughing. Associated signs and symptoms: Pertinent positives: productive cough, hemoptysis, Pertinent negatives:. Severity of symptoms: At their worst the symptoms were moderate in the emergency department the symptoms are unchanged. The patient has not experienced similar symptoms in the past. Historical: - Allergies: 20:10 No Known Allergies; ak1 - Home Meds: 20:10 amlodipine oral [Active]; aspirin 81 mg Oral chew 1 tab once daily [Active]; clonidine ak1 HCl Oral [Active]; gerd med [Active]; Hydralazine Oral [Active]; Hydrocodone-Acetaminophen Oral [Active]; levamir [Active]; Metoprolol Tartrate Oral [Active]; Plavix Oral [Active]; Unknown blood thinner [Active]; Zanaflex Oral [Active]; - PMHx: 20:10 Diabetes - IDDM; Dialysis; ESRD; GERD; Hypertension; ak1 - PSHx: 20:10 left arm dialysis shunt; ak1 - Immunization history:: Adult Immunizations unknown. - Social history:: Smoking status: Patient uses tobacco products, smokes one-half pack cigarettes per day. - Ebola Screening: : No symptoms or risks identified at this time. ROS: 20:32 Constitutional: Negative for fever, chills, and weight loss, Eyes: Negative for injury, tw4 pain, redness, and discharge, Cardiovascular: Negative for chest pain, palpitations, and edema, Abdomen/GI: Negative for abdominal pain, nausea, vomiting, diarrhea, and constipation. 20:32 Back: Negative for injury and pain, MS/Extremity: Negative for injury and deformity, Skin: Negative for injury, rash, and discoloration, Neuro: Negative for headache, weakness, numbness, tingling, and seizure. 20:32 Respiratory: Positive for cough, hemoptysis, shortness of breath, Negative for dyspnea on exertion, wheezing. Exam: 20:32 Constitutional: This is a well developed, well nourished patient who is awake, alert, tw4 and in no acute distress. Head/Face: Normocephalic, atraumatic. Chest/axilla: Normal chest wall appearance and motion. Nontender with no deformity. No lesions are appreciated. Cardiovascular: Regular rate and rhythm with a normal S1 and S2. No gallops, murmurs, or rubs. Normal PMI, no JVD. No pulse deficits. 20:32 Abdomen/GI: Soft, non-tender, with normal bowel sounds. No distension or tympany. No guarding or rebound. No evidence of tenderness throughout. Back: No spinal tenderness. No costovertebral tenderness. Full range of motion. MS/ Extremity: Pulses equal, no cyanosis. Neurovascular intact. Full, normal range of motion. Neuro: Awake and alert, GCS 15, oriented to person, place, time, and situation. Cranial nerves II-XII grossly intact. Motor strength 5/5 in all extremities. Sensory grossly intact. Cerebellar exam normal. Normal gait. 20:32 Respiratory: the patient does not display signs of respiratory distress, Respirations: normal, Breath sounds: wheezing: is scattered. Vital Signs: 20:10 Pulse 77; Resp 20; Temp 97.8; Pulse Ox 95% on R/A; Weight 77.11 kg (R); Height 5 ft. 6 ak1 in. (167.64 cm) (R); Pain 7/10; 20:10 BP 165 / 69; rr5 21:00 BP 141 / 89; Pulse 85; Resp 17; Temp 97.9; Pulse Ox 95% ; rr5 22:00 BP 122 / 79; Pulse 76; Resp 19; Pulse Ox 96% on R/A; rr5 23:00 BP 105 / 42; Pulse 80; Resp 17; Pulse Ox 93% on 2 lpm NC; rr5 23:10 Pulse Ox 97% on 2 lpm NC; rr5 05 00:00 BP 110 / 51; Pulse 73; Resp 19; Pulse Ox 97% on 2 lpm NC; rr5 01:00 BP 121 / 50; Pulse 75; Resp 19; Pulse Ox 97% on 2 lpm NC; ea 01/07 20:10 Body Mass Index 27.44 (77.11 kg, 167.64 cm) ak1 01/07 23:00 hooked to oxygen rr5 MDM: 20:09 Patient medically screened. tw4 01/08 01:26 Differential diagnosis: Anemia Anxiety Reaction Myocardial Infarction pneumonia, tw4 reactive airway disease, Sepsis. Antibiotic administration: Zithromax is given. Data reviewed: vital signs, nurses notes. Counseling: I had a detailed discussion with the patient and/or guardian regarding: the historical points, exam findings, and any diagnostic results supporting the discharge/admit diagnosis. Physician consultation: Sen Lagos MD regarding admission, to the telemetry unit. and will see patient in inpatient room. 01/07 20:12 Order name: Blood Culture Adult (2) [facility] 01/07 20:12 Order name: BMP [facility] 01/07 20:12 Order name: CBC with Diff [facility] 01/07 20:12 Order name: Ckmb; Complete Time: 22:47 [facility] 01/07 20:12 Order name: CPK; Complete Time: 22:47 [facility] 01/07 20:12 Order name: D-Dimer; Complete Time: 22:47 [facility] 01/07 22:47 Interpretation: Normal except: D-DIMER 701. tw 01/07 20:12 Order name: Hepatic Function; Complete Time: 22:47 [facility] 01/07 22:47 Interpretation: Normal except: AST 14; ALK 118; GLOB 4.2; A/G 0.9. [facility] 01/07 20:12 Order name: Lipase; Complete Time: 22:47 [facility] 01/07 20:12 Order name: Magnesium; Complete Time: 22:47 [facility] 01/07 22:47 Interpretation: Normal except: MG 2.6. [facility] 01/07 20:12 Order name: NT PRO-BNP; Complete Time: 22:47 [facility] 01/07 22:47 Interpretation: Normal except: NT PRO-BNP > [id number]. [facility] 01/07 20:12 Order name: PT-INR; Complete Time: 22:47 [facility] 01/07 20:12 Order name: Ptt, Activated; Complete Time: 22:47 [facility] 01/07 20:12 Order name: Troponin (emerg Dept Use Only); Complete Time: 22:47 tw4 01/07 20:13 Order name: Alcohol Level; Complete Time: 22:47 tw4 01/07 20:12 Order name: XRAY CXR (1 view); Complete Time: 22:47 tw4 01/07 20:13 Order name: Blood Culture [facility] 01/07 20:13 Order name: Urine Drug Screen tw4 01/07 20:13 Order name: Basic Metabolic Panel; Complete Time: 22:47 EDMS 01/07 22:48 Interpretation: Normal except: NA 133; CL 96; GLUC 268; BUN 48; GFR 8. tw4 01/07 20:13 Order name: CBC with Automated Diff; Complete Time: 22:47 EDMS 01/07 22:48 Interpretation: Normal except: WBC 9.9; RBC 4.13; HGB 12.7; HCT 38.7; PLT 145; LYM% tw4 6.6; CELINA% 87.3; NEUT A 8.6. 01/07 21:17 Order name: Manual Differential; Complete Time: 22:47 [facility] 01/07 22:48 Interpretation: Normal except: SEGS 90; LYM 5. tw4 01/07 22:18 Order name: Thorax Wo Con [facility] 01/08 01:06 Order name: CBC with Automated Diff [facility]MS 01/08 01:06 Order name: CBC with Automated Diff [facility]MS 01/08 01:06 Order name: Comprehensive Metabolic Panel [facility] 01/08 01:06 Order name: Comprehensive Metabolic Panel [facility] 01/08 01:06 Order name: Lipid Profile [facility] 01/08 01:06 Order name: Lipid Profile [facility] 01/07 20:12 Order name: EKG; Complete Time: 20:14 tw4 01/07 20:12 Order name: Cardiac monitoring; Complete Time: 21:20 tw4 01/07 20:12 Order name: EKG - Nurse/Tech; Complete Time: 21:49 tw4 01/07 20:12 Order name: IV Saline Lock; Complete Time: 21:20 tw4 01/07 20:12 Order name: Labs collected and sent; Complete Time: 21:20 tw4 01/07 20:12 Order name: O2 Per Protocol; Complete Time: 21:20 tw4 01/07 20:12 Order name: O2 Sat Monitoring; Complete Time: 21:20 tw4 01/08 01:06 Order name: CONS Physician Consult [facility] 01/08 01:06 Order name: Renal [facility] EC:32 Rate is 79 beats/min. Rhythm is regular. QRS [place] is Normal. [place] interval is normal. QT tw4 interval is normal. No Q waves. No ST changes noted. Clinical impression: NSR w/ Non-specific ST/T Changes. Interpreted by me. Reviewed by me. Administered Medications: 01/07 21:00 Drug: DuoNeb (3:1) (2.5 mg - 0.5 mg) 3 ml Route: Nebulizer; rr5 22:00 Follow up: Response: No adverse reaction; Marked relief of symptoms rr5 01/08 01:43 Drug: Zithromax 500 mg Route: IVPB; Infused Over: 1 hrs; Site: right antecubital; ea 01:45 Follow up: Response: No adverse reaction; IV Status: Infusion continued upon admission ea Disposition: 01/07/19 23:48 Hospitalization ordered by Sen Lagos for Inpatient Admission. Preliminary diagnosis are Other specified interstitial pulmonary diseases, Mycobacterial infection, unspecified. - Bed requested for Telemetry/MedSurg (Inpatient). - Status is Inpatient Admission. ea - Condition is Stable. - Problem is new. - Symptoms have improved. UTI on Admission? No Signatures: Dispatcher [employer] [facility] Karen Vega, RN RN ak1 Jean-Pierre [facility] Adeline Rosas RN RN ea Wadley, Terrence, MD MD tw4 Ryan Reynolds RN RN rr5 Corrections: (The following items were deleted from the chart) 01/07 22:18 21:38 Chest For PE Angio+CT.RAD.BRZ ordered. [facility]RI 01/08 01:18 01/07 23:48 Hospitalization Ordered by Sen Lagos MD for Inpatient Admission. nd Preliminary diagnosis is Other specified interstitial pulmonary diseases; Mycobacterial infection, unspecified. Bed requested for Telemetry/MedSurg (Inpatient). Status is Inpatient Admission. Condition is Stable. Problem is new. Symptoms have improved. UTI on Admission? No. tw4 01/08 01:50 01:18 01/07/2019 23:48 Hospitalization Ordered by Sen Lagos MD for Inpatient ea Admission. Preliminary diagnosis is Other specified interstitial pulmonary diseases; Mycobacterial infection, unspecified. Bed requested for Telemetry/MedSurg (Inpatient). Status is Inpatient Admission. Condition is Stable. Problem is new. Symptoms have improved. UTI on Admission? No. mt
--- NOTE | 2019-01-07 23:49 | ER ---
Nurse's Notes [facility] Name: Alexis Urbano Age: 63 yrs Sex: Male : 1955 Arrival Date: 01/07/2019 Time: 20:06 Bed 17 Private MD: Diagnosis: Other specified interstitial pulmonary diseases;Mycobacterial infection, unspecified Presentation: 01/07 20:07 Presenting complaint: Patient states: he was seen on Monday dx pneumonia. pt c/o ak1 coughing up blood and chest pain. pt with left arm shunt for dialysis. Transition of care: patient was not received from another setting of care. Onset of symptoms is unknown. Risk Assessment: Do you want to hurt yourself or someone else? Patient reports no desire to harm self or others. Initial Sepsis Screen: Does the patient meet any 2 criteria? No. Patient's initial sepsis screen is negative. Does the patient have a suspected source of infection? No. Patient's initial sepsis screen is negative. Care prior to arrival: None. 20:07 Method Of Arrival: Wheelchair ak1 20:07 Acuity: JOEL 3 ak1 Triage Assessment: 20:10 General: Appears in no apparent distress. Behavior is calm, cooperative. ak1 Historical: - Allergies: 20:10 No Known Allergies; ak1 - Home Meds: 20:10 amlodipine oral [Active]; aspirin 81 mg Oral chew 1 tab once daily [Active]; clonidine ak1 HCl Oral [Active]; gerd med [Active]; Hydralazine Oral [Active]; Hydrocodone-Acetaminophen Oral [Active]; levamir [Active]; Metoprolol Tartrate Oral [Active]; Plavix Oral [Active]; Unknown blood thinner [Active]; Zanaflex Oral [Active]; - PMHx: 20:10 Diabetes - IDDM; Dialysis; ESRD; GERD; Hypertension; ak1 - PSHx: 20:10 left arm dialysis shunt; ak1 - Immunization history:: Adult Immunizations unknown. - Social history:: Smoking status: Patient uses tobacco products, smokes one-half pack cigarettes per day. - Ebola Screening: : No symptoms or risks identified at this time. Screenin:23 Abuse screen: Denies threats or abuse. Denies injuries from another. Nutritional rr5 screening: No deficits noted. Tuberculosis screening: No symptoms or risk factors identified. Fall Risk IV access (20 points). Total Gray Fall Scale indicates No Risk (0-24 pts). Assessment: 20:10 General: Appears in no apparent distress. comfortable, Behavior is calm, cooperative, rr5 drowsy. 20:10 Pain: Complains of pain in chest Pain does not radiate. Pain currently is 7 out of 10 rr5 on a pain scale. Quality of pain is described as aching, Pain began gradually, Is intermittent. Neuro: Level of Consciousness is awake, alert, obeys commands, Oriented to person, place, time, situation, Appropriate for age. Cardiovascular: Reports chest pain, Capillary refill < 3 seconds Patient's skin is warm and dry. Dialysis shunt: in the left arm, with palpable thrill, with no erythema, with no edema, no bleeding noted. Respiratory: Reports cough that is blood he reported diagnose with pneumonia Airway is patent Respiratory effort is even, unlabored, Respiratory pattern is regular, symmetrical. GI: No signs and/or symptoms were reported involving the gastrointestinal system. : No signs and/or symptoms were reported regarding the genitourinary system. EENT: No signs and/or symptoms were reported regarding the EENT system. Derm: Skin is intact, is healthy with good turgor, Skin temperature is warm. Musculoskeletal: Circulation, motion, and sensation intact. Capillary refill < 3 seconds. 21:00 Reassessment: Patient appears in no apparent distress at this time. No changes from rr5 previously documented assessment. Patient and/or family updated on plan of care and expected duration. Pain level reassessed. Patient states symptoms have improved. 21:20 Reassessment: mel laboratory staff called for the D dimer 701. ED provider aware. rr5 22:00 Reassessment: Patient appears in no apparent distress at this time. Patient and/or rr5 family updated on plan of care and expected duration. Pain level reassessed. no complaints made, awaiting for review. Patient states feeling better. Patient states symptoms have improved. 22:10 Reassessment: creatinine 6.96 laboratory staff called to tessa. ED provider aware. rr5 23:05 Reassessment: Patient appears in no apparent distress at this time. Patient is alert, rr5 oriented x 3, equal unlabored respirations, skin warm/dry/pink. ED provider reassess the patient and advised for admission. patient agreed for the plan of care. Patient states feeling better. Patient states symptoms have improved. 01/08 00:00 Reassessment: Patient appears in no apparent distress at this time. Patient is alert, rr5 oriented x 3, equal unlabored respirations, skin warm/dry/pink. patient verbalized I feel fine now, no more cough. awaiting for room assignment. Patient states feeling better. Patient states symptoms have improved. 01:00 Reassessment: Patient and/or family updated on plan of care and expected duration. Pain ea level reassessed. Patient is alert, oriented x 3, equal unlabored respirations, skin warm/dry/pink. 01:47 Reassessment: Patient and/or family updated on plan of care and expected duration. Pain ea level reassessed. Patient is alert, oriented x 3, equal unlabored respirations, skin warm/dry/pink. Pt admitted to second floor, left ED via wheelchair per tech. Pt tolerating well. Vital Signs: 01/07 20:10 Pulse 77; Resp 20; Temp 97.8; Pulse Ox 95% on R/A; Weight 77.11 kg (R); Height 5 ft. 6 ak1 in. (167.64 cm) (R); Pain 7/10; 20:10 BP 165 / 69; rr5 21:00 BP 141 / 89; Pulse 85; Resp 17; Temp 97.9; Pulse Ox 95% ; rr5 22:00 BP 122 / 79; Pulse 76; Resp 19; Pulse Ox 96% on R/A; rr5 23:00 BP 105 / 42; Pulse 80; Resp 17; Pulse Ox 93% on 2 lpm NC; rr5 23:10 Pulse Ox 97% on 2 lpm NC; rr5 01/08 00:00 BP 110 / 51; Pulse 73; Resp 19; Pulse Ox 97% on 2 lpm NC; rr5 01:00 BP 121 / 50; Pulse 75; Resp 19; Pulse Ox 97% on 2 lpm NC; ea 01/07 20:10 Body Mass Index 27.44 (77.11 kg, 167.64 cm) ak1 01/07 23:00 hooked to oxygen rr5 ED Course: 20:06 Patient arrived in ED. ak1 20:08 Triage completed. ak1 20:09 Ronnie Dent MD is Attending Physician. tw4 20:10 Arm band placed on Patient placed in an exam room, on a stretcher, on pulse oximetry, ak1 Patient notified of wait time. 20:15 Patient has correct armband on for positive identification. Bed in low position. ea 20:23 XRAY CXR (1 view) In Process Unspecified. EDMS 20:47 Ryan Reynolds, RN is Primary Nurse. rr5 21:05 Inserted saline lock: 18 gauge in right forearm, using aseptic technique. Blood rr5 collected. 21:05 First set of blood cultures drawn by me. rr5 21:20 EKG done, by ED staff, reviewed by Ronnie Dent MD. rr5 22:40 Thorax Wo Con In Process Unspecified. EDMS 23:46 Sen Lagos MD is Hospitalizing Provider. tw4 01/08 01:48 No provider procedures requiring assistance completed. Patient admitted, IV remains in ea place. Administered Medications: 01/07 21:00 Drug: DuoNeb (3:1) (2.5 mg - 0.5 mg) 3 ml Route: Nebulizer; rr5 22:00 Follow up: Response: No adverse reaction; Marked relief of symptoms rr5 01/08 01:43 Drug: Zithromax 500 mg Route: IVPB; Infused Over: 1 hrs; Site: right antecubital; ea 01:45 Follow up: Response: No adverse reaction; IV Status: Infusion continued upon admission ea Outcome: 01/07 23:48 Decision to Hospitalize by Provider. tw4 01/08 00:00 Instructed on the need for admit, Demonstrated understanding of instructions. ea 01:49 Admitted to Med/surg accompanied by tech, via wheelchair, room 213, with oxygen, with ea chart, Report called to Patsy LEIVA 01:49 Condition: stable 01:50 Patient left the ED. ea Signatures: Dispatcher [employer] EDMS Karen Vega RN RN ak1 Tessa Rosas, RN Ronnie Gusman ea, MD MD tw4 Ryan Reynolds, RN RN rr5
[2019-01-08] MEDS ORDERED: ONDANSETRON 4 MG/2 ML VIAL IV PRN (00:59)
[2019-01-08] MEDS ORDERED: NA CHLORIDE 0.9% 250 ML ONE (01:39)
[2019-01-08] MEDS ORDERED: AZITHROMYCIN 500 MG INJ IVPB ONE (01:39)
[2019-01-08 02:05] VITALS: BMI 25.4
[2019-01-08] MEDS: ALBUTEROL 2.5 MG/3 ML NEB SOL NEB SCH ×4 (02:30→19:45)
[2019-01-08] MEDS: IPRATROPIUM BROM 0.5MG/2.5ML NEB SCH ×4 (02:30→19:45)
[2019-01-08] MEDS ORDERED: METOPROLOL TARTRATE 5 MG/5 ML INJ IV STA (02:56)
[2019-01-08] MEDS: Levofloxacin 250mg IV 250 MG/50 ML BAG IV SCH ×2 (03:18→23:55)
[2019-01-08] MEDS: METHYLPREDNISOLONE 40 MG INJ IV SCH ×2 (03:18→08:10)
[2019-01-08] MEDS: HYDROCODONE/APAP 10/325 TAB PO PRN ×3 (05:20→20:44)
[2019-01-08] MEDS: TIZANIDINE 4 MG TABLET PO SCH ×2 (05:20→17:29)
[2019-01-08] MEDS ORDERED: CLONIDINE HCL 0.3 MG TAB PO ONE (06:15)
[2019-01-08] MEDS ORDERED: HYDROCODONE/APAP 10/325 TAB PO PRN (06:15)
[2019-01-08] MEDS: HYDRALAZINE HCL 25 MG TABLET PO SCH ×3 (08:06→20:45)
[2019-01-08] MEDS: cloNIDine HCL 0.1 MG TAB PO SCH ×3 (08:07→20:45)
[2019-01-08] MEDS: HEPARIN 5000 UNIT/ML 1 ML VIAL SQ SCH ×2 (08:09→20:46)
[2019-01-08] MEDS: GABAPENTIN 100 MG CAP PO SCH ×3 (08:10→20:44)
[2019-01-08 08:53] LABS: Urine Appearance CLEAR; Urine Bilirubin NEGATIVE (NEG); Urine Blood NEGATIVE (NEG); Urine Color YELLOW; Urine Glucose 1+ (NEG); Urine Protein 3+ (NEG); Urine Urobilinogen 0.2 mg/dL (0.2-1.0); Urine pH 6.5 (5.0-7.0)
--- NOTE | 2019-01-08 08:56 | P.HP ---
Certification for Inpatient Patient admitted to: Observation With expected LOS: <2 Midnights Patient will require the following post-hospital care: None Practitioner: I am a practitioner with admitting privileges, knowledge of patient current condition, hospital course, and medical plan of care. Services: Services provided to patient in accordance with Admission requirements found in Title 42 Section 412.3 of the Code of Federal Regulations Patient History Date of Service: 01/08/19 Reason for admission: Cough and hemoptysis History of Present Illness: Patient is 63-year-old gentleman who has history of end-stage renal disease as well as chronic lung disease, and he returns to the ER with persistent cough and hemoptysis. Patient was discharged recently with a pneumonia. Patient felt like he was doing better so he was discharged home. After getting home he was starting to get worse. Her he was coughing and really congested. He just noted that he had some hemoptysis today. He decided to come into the hospital for further evaluation. In the emergency room he had labs and diagnostic studies. CT scan reveals worsening pneumonia. Patient will be admitted to the hospital for further evaluation. Allergies No Known Drug Allergies Allergy (Mild, Verified 01/08/19 02:05) Unknown Home Medications: Clonidine HCl [Catapres] 0.2 mg PO BID 01/02/19 Gabapentin [Neurontin*] 100 mg PO TID 01/02/19 Hydralazine HCl [Apresoline] 100 mg PO TID 01/02/19 Hydrocodone 10/APAP 325 [[place] 10325*] 1 tab PO Q6H PRN 01/02/19 Lactulose 20 gm PO DAILYPRN PRN 01/02/19 Lisinopril [Prinivil*] 20 mg PO BID 01/02/19 Pravastatin Sodium [Pravachol] 40 mg PO BEDTIME 01/02/19 Tizanidine HCl 4 mg PO BID 01/02/19 Tobramycin/Dexamethasone [Tobramycin-Dexameth Ophth Susp] 2 gtt OP BID 01/02/19 Zolpidem Tartrate [Ambien*] 10 mg PO BEDTIME 01/02/19 Fluticasone/Salmeterol [Advair 250-50 Diskus] 1 each IH BID #1 blst.w.dev Cefuroxime Axetil [Cefuroxime] 500 mg PO BID #10 tab 01/04/19 predniSONE [Deltasone] 10 mg PO BID #14 tab 01/04/19 - Past Medical/Surgical History Has patient received pneumonia vaccine in the past: Yes Diabetic: Yes -: Hepatitis-C (cured) -: HTN -: Hyperlipidemia -: Chronic pain -: Chronic anemia -: End-stage renal disease on hemodialysis (MWF) -: Diabetes mellitus type 2 -: Chronic pain -: Chronic anemia -: knee replacement -: ankle heel spur removed -: ankle surgery -: toe surgery -: back surgery -: TENS implant Psychosocial/ Personal History: Patient is . He has 2 children - Family History Sister Medical History: Diabetes, Cancer Notes: colon ca Brother Medical History: Hypertension, Diabetes dad Medical History: Hypertension mom Medical History: Hypertension Notes: dementia - Social History Smoking Status: Former smoker Alcohol use: No CD- Drugs: No Caffeine use: Yes Place of Residence: Home Review of Systems 10-point ROS is otherwise unremarkable Physical Examination - Vital Signs Temperature: 97.9 F Blood Pressure: 160/90 Pulse: 75 Respirations: 19 Pulse Ox (%): 95 - Physical Exam General: Alert, In no apparent distress, Oriented x3 HEENT: Atraumatic, PERRLA, Mucous membr. moist/pink, EOMI, Sclerae nonicteric Neck: Supple, 2+ carotid pulse no bruit, No LAD, Without JVD or thyroid abnormality Respiratory: Diminished, Expiratory wheezes, Rhonchi/gurgles Cardiovascular: Regular rate/rhythm, Normal S1 S2, Systolic murmur Gastrointestinal: Normal bowel sounds, Soft and benign, Non-distended, No tenderness Musculoskeletal: No clubbing, No swelling, No tenderness Integumentary: No rashes Neurological: Normal gait, Normal speech, Normal strength at 5/5 x4 extr, Normal tone, Sensation intact, Cranial nerves 3-12 intact, Normal affect Lymphatics: No axilla or inguinal lymphadenopathy - Studies Laboratory Data (last 24 hrs) 01/07/19 21:05: PT 12.0, INR 1.02, APTT 30.2 01/07/19 21:05: WBC 9.9 D, Hgb 12.7 L, Hct 38.7 L, Plt Count 145 L 01/07/19 21:05: Sodium 133 L, Potassium 4.9, BUN 48 H, Creatinine 6.96 H* D, Glucose 268 H, Magnesium 2.6 H, Total Bilirubin 0.5, AST 14 L, ALT 14, Alkaline Phosphatase 118 H, Lipase 106 Assessment & Plan - Problems (Diagnosis) (1) Hemoptysis Current Visit: Yes Status: Acute (2) COPD exacerbation Current Visit: No Status: Acute (3) Pneumonia Onset Date: 09/01/15 Current Visit: No Status: Acute Qualifiers: Pneumonia type: due to unspecified organism (4) End stage renal disease Current Visit: No Status: Chronic (5) Hypertension Current Visit: No Status: Chronic Qualifiers: Hypertension type: essential hypertension Qualified Code(s): I10 - Essential (primary) hypertension (6) Uncontrolled diabetes mellitus Current Visit: No Status: Chronic Qualifiers: Diabetes mellitus type: type 2 - Plan Plan: 1. Continue with IV antibiotics 2. Awaiting sputum and blood culture; procalcitonin level 3. Repeat chest x-ray in AM 4. Nephrology consultation for hemodialysis 5. patient may have bronchiectasis and this may be mycobacterium avium. We will discuss with Pulmonary. Patient did recently have Pseudomonas in the sputum 6. Continue with nebs as needed 7. O2 per protocol 8. Hep-Lock IV 9. Repeat labs including CBC and renal function in a.m. 10. Outpt follow-up with Pulmonary 11. GI and DVT prophylaxis Discharge Plan: Home Plan to discharge in: Greater than 2 days - Advance Directives Does patient have a Living Will: No Does patient have a Durable POA for Healthcare: No - Code Status/Comfort Care Code Status Assessed: Yes Code Status: Full Code Critical Care: No Time Spent Managing PTS Care (In Minutes): 45
[2019-01-08] MEDS ORDERED: ENOXAPARIN 40 MG/0.4 ML SQ SCH (09:00)
[2019-01-08] MEDS ORDERED: HOME MED 1 EA UNK (Tizanidine Hcl [Tizanidine Hcl] 4 MG) PO SCH (09:00)
[2019-01-08] MEDS ORDERED: CLONIDINE HCL 0.2 MG PO SCH (09:00)
[2019-01-08] MEDS ORDERED: TOBRADEX 0.3-0.1% OPTH SUSP OPTH SCH (09:00)
[2019-01-08 09:47] LABS: Urine Microscopic Reflex ORDER UMIC
[2019-01-08 09:48] LABS: Urine Amorphous Sediment 1+ /HPF (NONE SEEN); Urine Bacteria <20 /HPF (NONE SEEN); Urine Culture Reflex Order REFLEXED; Urine Sperm PRESENT (NONE SEEN)
[2019-01-08 09:59] LABS: Barbiturates NEGATIVE (NEGATIVE); Benzodiazepines NEGATIVE (NEGATIVE); Cocaine NEGATIVE (NEGATIVE); METHAMPHETAM NEGATIVE (NEGATIVE); Methadone NEGATIVE (NEGATIVE); Opiates NEGATIVE (NEGATIVE); Phencyclidine NEGATIVE (NEGATIVE); THC Cannibis NEGATIVE (NEGATIVE)
--- NOTE | 2019-01-08 10:40 | RAD REPORT ---
EXAM DESCRIPTION: CT - Thorax Wo Con - 01/08/2019 3:38 am CLINICAL HISTORY: Hemoptysis. Chest pain. Shortness of breath. TECHNIQUE: 5 mm axial images of the thorax were obtained without intravenous contrast. Coronal and s agittal reformatted images were obtained. DOSE OPTIMIZATION: This facility uses dose optimization techniques as appropriate to perform exams, including at least one of the following techniques: 1. Automated exposure control. 2. Adjustment of the mA and/or kV according to patient size (this includes techniques or standardized protocols for targeted exams where dose is matched to the indication/reason for exam, i.e. extremiti es or head). 3. Use of iterative reconstructive technique. INTRAVENOUS CONTRAST: None. COMPARISON: None. FINDINGS: Lung Clark: There is moderately severe cylindrical bronchiectasis within the upper and lower lung clark bilatera lly. There are associated mild peribronchial infiltrates demonstrated. There are innumerable small 2 to 3 mm micronodular infiltrates throughout the lung clark bilaterally . Calcified granulomas are noted on the left. Mediastinal Structures: There is extensive atherosclerotic disease about the thoracic aorta and coronary arteries. There is no pericardial effusion. There are prominent mediastinal lymph nodes which may be reactive to the bilateral pulmonary infiltra elton. Pleural Space: Normal. Axillae: Normal. Upper Abdomen: There is evidence of hepatic cirrhosis. Bony Structures: There are prominent Schmorl's node deformities throughout multiple vertebral and low er thoracic spine.. IMPRESSION: 1. Diffuse bilateral pulmonary infiltrates as described above. Mycobacterial pulmonary d isease should be considered. 2. Mildly prominent mediastinal lymph nodes which are likely reactive to the pulmonary infiltrates. 3. Atherosclerotic disease. 4. Hepatic cirrhosis. Electronically signed by: Sujit Flores MD 01/07/2019 10:59 PM LOADER Due to temporary technical issues with the PACS/Fluency reporting system, reports are being signed by the in house radiologist as a courtesy to ensure prompt reporting. The interpreting radiologist is f ully responsible for the content of the report.
--- NOTE | 2019-01-08 11:42 | P.CNS ---
Date of Consult: 01/08/19 Chief Complaint: Cough and hemoptysis History of Present Illness: Patient is 63 years of age was recently discharged 3 admitted again complaining of worsening shortness of breath hemoptysis in the slight fever patient was last discharged on cefuroxime. Failure off outpatient therapy Allergies No Known Drug Allergies Allergy (Mild, Verified 01/08/19 02:05) Unknown Home Medications: Clonidine HCl [Catapres] 0.2 mg PO BID 01/02/19 Gabapentin [Neurontin*] 100 mg PO TID 01/02/19 Hydralazine HCl [Apresoline] 100 mg PO TID 01/02/19 Hydrocodone 10APAP 325 [[place] 10325*] 1 tab PO Q6H PRN 01/02/19 Lactulose 20 gm PO DAILYPRN PRN 01/02/19 Lisinopril [Prinivil*] 20 mg PO BID 01/02/19 Pravastatin Sodium [Pravachol] 40 mg PO BEDTIME 01/02/19 Tizanidine HCl 4 mg PO BID 01/02/19 Tobramycin/Dexamethasone [Tobramycin-Dexameth Ophth Susp] 2 gtt OP BID 01/02/19 Zolpidem Tartrate [Ambien*] 10 mg PO BEDTIME 01/02/19 Fluticasone/Salmeterol [Advair 250-50 Diskus] 1 each IH BID #1 blst.w.dev Cefuroxime Axetil [Cefuroxime] 500 mg PO BID #10 tab 01/04/19 predniSONE [Deltasone] 10 mg PO BID #14 tab 01/04/19 - Past Medical/Surgical History Diabetic: Yes -: Hepatitis-C (cured) -: HTN -: Hyperlipidemia -: Chronic pain -: Chronic anemia -: End-stage renal disease on hemodialysis (MWF) -: Diabetes mellitus type 2 -: Chronic pain -: Chronic anemia -: Cirrhosis of liver on the CT scan -: knee replacement -: ankle heel spur removed -: ankle surgery -: toe surgery -: back surgery -: TENS implant Psychosocial/ Personal History: Patient is . He has 2 children - Family History Sister Medical History: Diabetes, Cancer Notes: colon ca Brother Medical History: Hypertension, Diabetes dad Medical History: Hypertension mom Medical History: Hypertension Notes: dementia - Social History Smoking Status: Current every day smoker Alcohol use: No CD- Drugs: No Caffeine use: Yes Place of Residence: Home Review of Systems 10-point ROS is otherwise unremarkable Respiratory: Cough, Shortness of Breath, Hemoptysis Physical Examination Temp Pulse Resp BP Pulse Ox 97.9 F 75 19 140/60 95 01/08/19 08:56 01/08/19 08:56 01/08/19 08:56 01/08/19 10:35 01/08/19 08:56 General: Alert, Oriented x3, Mild distress Neck: Supple Respiratory: Clear to auscultation bilaterally Cardiovascular: No edema, Regular rate/rhythm, Normal S1 S2 Gastrointestinal: Normal bowel sounds, Soft and benign Laboratory Data (last 24 hrs) 01/07/19 21:05: PT 12.0, INR 1.02, APTT 30.2 01/07/19 21:05: WBC 9.9 D, Hgb 12.7 L, Hct 38.7 L, Plt Count 145 L 01/07/19 21:05: Sodium 133 L, Potassium 4.9, BUN 48 H, Creatinine 6.96 H* D, Glucose 268 H, Magnesium 2.6 H, Total Bilirubin 0.5, AST 14 L, ALT 14, Alkaline Phosphatase 118 H, Lipase 106 - Problems (1) Pneumonia Onset Date: 09/01/15 Current Visit: No Status: Acute Plan: Patient is 63 years of age admitted with cough fever hemoptysis is a CT scan shows bilateral patchy change for trade seems to have improved chronic renal failure vital signs oxygenation satisfactory normal white count evidence of previous bronchiectasis sees as Pseudomonas isolated in the past agree with levofloxacin he will need to be treated with 7-10 days of levofloxacin was 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
[2019-01-08] MEDS: INSULIN -REGULAR HUMAN 50 UNIT/0.5 ML ML SQ SCH ×3 (12:17→20:46)
[2019-01-08] MEDS ORDERED: GLUCAGON 1 MG/VIAL IM PRN (12:17)
[2019-01-08] MEDS ORDERED: D50W 25 GM/50 ML SYRINGE/VIAL IV PRN (12:17)
--- NOTE | 2019-01-08 12:21 | EKG ---
Test Date: 2019-01-07 Test Time: 21:25:59 Master Dyer: LUISANA MEASUREMENT RESULTS: Intervals: Rate: 79 CA: 132 QRSD: 90 QT: 412 QTc: 472 [place]: P: 40 CA: 132 QRS: -6 T: 96 INTERPRETIVE STATEMENTS: Normal sinus rhythm Possible Left atrial enlargement Possible Anterior infarct, age undetermined Abnormal ECG Compared to ECG 01/02/2019 16:21:15 Myocardial infarct finding now present Sinus bradycardia no longer present ST (T wave) deviation no longer present Possible ischemia no longer present Prolonged QT interval no longer present Electronically Signed On 01-08-19 12:19:22 SMALL EQUIPMENT OPERATOR by Jose Francisco Mckeon
[2019-01-08] MEDS: DULERA 200/5 (MOMETASONE/FORMOTEROL) INHALER IH SCH ×2 (12:46→20:44)
--- NOTE | 2019-01-08 15:46 | CON ---
Date of Consultation: 01/08/2019 Reason For Consultation: Elevated BUN and creatinine. End-stage renal disease. Hypertension, uncon trolled. History Of Present Illness: This is a pleasant 63-year-old gentleman, well known to me from dialysis with significant past medical history of end-stage renal disease, on dialysis, Monday, Monday, [facility] at [facility]; hypertension; hyperlipidemia; diabetes, complicated with neur opathy and nephropathy; hep C, complicated with cirrhosis. Patient was in his regular state of healt h, recently admitted to the hospital with hemoptysis treated and discharged. Apparently, patient aft er discharge continued to have hemoptysis. For that reason, came to the hospital. Patient, during t he hospitalization, blood pressure being elevated above 200. Over the night, patient was medicated w ith his clonidine and hydralazine. Blood pressure still elevated. We just started the patient on p. r.n. hydralazine and increase his carvedilol. Past Medical History: 1.Hypertension. 2.Hyperlipidemia. 3.Diabetes, complicated with neuropathy and nephropathy. 4.End-stage renal disease, on hemodialysis, Monday, Monday, Monday at [facility]. 5.Hep C, complicated with cirrhosis. Allergies: NO KNOWN DRUG ALLERGIES. Social History: Active smoker. Denied alcohol. Denied drug abuse. Family History: Positive for diabetes and cancer. Past Surgical History: AV fistula creation, tonsillectomy, multiple orthopedic surgeries. Review of Systems: Head and neck: Headache. GI: No nausea. No vomiting. : No polyuria. No dysuria. No hematuria. FRAMEMAN: Not applicable. Respiratory: Has cough. Has shortness of breath. Has hemoptysis. Cardiovascular: Has no leg swelling. Endocrine: No polydipsia. Skin: No rash. Neurologic: Has neuropathy. Musculoskeletal: No joint pain. Physical Examination: Vital Signs: Blood pressure of 160/90, pulse of 75, afebrile. Chest: Crackles bilateral with wheezing. Heart: S1, S2. Regular. Abdomen: Soft, nontender. Extremities: No edema. Laboratory Data: WBC 9.9, H and H 12.7/38.7, platelet 145. Sodium 133, potassium 4.9, bicarb 26, BU N 48, creatinine 6.9, calcium 8.4, magnesium 2.6. Ferritin 598. BNP 175,000. Medications: Current medications the patient on, its include; 1.Carvedilol. 2.Clonidine 0.3 t.i.d. 3.Hydralazine. 4.Ambien. 5.Gabapentin. 6.Zofran. 7.Hydrocodone. Laboratory Data: As above. Assessment And Plan: 1.End-stage renal disease. Normal volume. I am going to arrange for dialysis tomorrow. We will tr y to challenge the patient. 2.Hypertension. Continue current medication. We will add carvedilol. 3.Anemia of chronic kidney disease. No need for DEXTER. 4.Pneumonia, failed on outpatient treatment. We will consult ID and we will follow up the recommendation of Pulmonary. 5.Diabetes, as by primary. YOUNG/DHRUV Voice ID: [id number] Report ID: [id number]
[2019-01-08] MEDS: carvediloL 6.25 MG TAB PO SCH (20:45)
[2019-01-08] MEDS: ATORVASTATIN 10 MG TAB PO SCH (20:45)
[2019-01-08] MEDS: ZOLPIDEM TARTRATE 10 MG TABLET PO SCH (20:45)
[2019-01-09] MEDS: IPRATROPIUM BROM 0.5MG/2.5ML NEB SCH ×4 (01:35→20:20)
[2019-01-09] MEDS: ALBUTEROL 2.5 MG/3 ML NEB SOL NEB SCH ×4 (01:35→20:20)
[2019-01-09] MEDS: HYDROCODONE/APAP 10/325 TAB PO PRN ×4 (02:06→23:27)
[2019-01-09] MEDS: TIZANIDINE 4 MG TABLET PO SCH ×2 (05:15→17:26)
[2019-01-09 05:39] LABS: Absolute Lymphocytes (CBC) 0.8 K/uL (0.7-4.9); Basophils % 0.1 % (0-1.3); Hematocrit 37.1 % (39.6-49.0); Lymphocytes % 9.6 % (15.3-44.8); MPV 9.2 fL (7.6-11.3); RBC Red Blood Cell Count 3.97 M/uL (4.33-5.43)
[2019-01-09 07:28] LABS: Albumin 3.3 g/dL (3.4-5.0); Bilirubin Total 0.5 mg/dL (0.2-1.0); Phosphorus 6.6 mg/dL (2.5-4.9); Protein, Total 7.8 g/dL (6.4-8.2)
[2019-01-09 08:05] LABS: Potassium 5.9 mmol/L (3.5-5.1)
[2019-01-09] MEDS: INSULIN -REGULAR HUMAN 50 UNIT/0.5 ML ML SQ SCH ×4 (09:02→21:00)
[2019-01-09] MEDS: DULERA 200/5 (MOMETASONE/FORMOTEROL) INHALER IH SCH ×2 (09:02→21:00)
[2019-01-09] MEDS: cloNIDine HCL 0.1 MG TAB PO SCH ×3 (09:03→21:24)
[2019-01-09] MEDS: HYDRALAZINE HCL 25 MG TABLET PO SCH ×3 (09:03→21:23)
[2019-01-09] MEDS: carvediloL 6.25 MG TAB PO SCH ×2 (09:04→21:24)
[2019-01-09] MEDS: GABAPENTIN 100 MG CAP PO SCH ×3 (09:05→21:23)
[2019-01-09] MEDS: HEPARIN 5000 UNIT/ML 1 ML VIAL SQ SCH ×2 (09:05→21:23)
--- NOTE | 2019-01-09 12:31 | P.PN ---
Subjective Date of Service: 01/09/19 Chief Complaint: Cough and hemoptysis Pt with ESRd , HTN , admitted for SOB and hemoptysis recently admitted for similar symptoms , didint improve on Po Abx Today feels better Hemoptysis resolved seen and examined during HD HD better now will aim for 4lietrs fluid removal high k and Low sodium , will normalize with DH Physical Examination - Vital Signs Temperature: 99.1 F Blood Pressure: 201/81 Pulse: 72 Respirations: 18 Pulse Ox (%): 94 - Physical Exam General: In no apparent distress, Oriented x3 HEENT: Atraumatic Neck: Supple, Without JVD or thyroid abnormality Respiratory: Clear to auscultation bilaterally, Normal air movement Cardiovascular: No edema, Regular rate/rhythm, Normal S1 S2, No gallops, No rubs , No murmurs Gastrointestinal: Soft and benign, Non-distended Musculoskeletal: No swelling Integumentary: No rashes Assessment And Plan - Plan ESRD on HD MWF HD today renal dose meds Anemia no need for epogen HTN cont current meds Will aim for 4 liters fluid removal and likely BP will improve after HD Hemoptysis on levaquin Pulmonary on board hyponatremia will correct with HD Hyperkalemia will correct with HD PNA Conrt Levaquin
--- NOTE | 2019-01-09 13:02 | P.PN ---
Subjective Date of Service: 01/09/19 Primary Care Provider: Dr. Montoya; Nephrology-Dr. Rand Chief Complaint: Cough and hemoptysis Subjective: Other (Feeling better. Due to get dialysis.) Physical Examination - Vital Signs Temperature: 99.1 F Blood Pressure: 201/81 Pulse: 72 Respirations: 18 Pulse Ox (%): 94 - Physical Exam General: Alert, In no apparent distress, Oriented x3, Cooperative HEENT: Atraumatic Neck: Supple Respiratory: Crackles/rales (Bilateral), Expiratory wheezes (Bilateral) Cardiovascular: Normal pulses, Regular rate/rhythm Gastrointestinal: Normal bowel sounds, Soft and benign, Non-distended Neurological: Normal speech, Normal strength at 5/5 x4 extr, Normal tone - Studies Medications List Reviewed: Yes Assessment & Plan Discharge Plan: Home Plan to discharge in: 24 Hours Physician Review Additional Text: Impression: Dyspnea secondary to bilateral pneumonia, failed outpatient therapy, complicated with COPD exacerbation Hypertension, uncontrolled End-stage renal disease on hemodialysis with hyperkalemia and hyponatremia Diabetes mellitus type 2, non insulin-dependent with hyperglycemia Hyperlipidemia Plan: Dyspnea secondary to bilateral pneumonia, failed outpatient therapy, complicated with COPD exacerbation: Patient seen by pulmonology. Will continue with antibiotic therapy. Sputum cultures obtained. Will send sputum for AFB. Patient continues on COPD medication. Will need to monitor oxygen level. Patient may require oxygen at discharge. Spoke with nephrology. Anticipate discharge likely tomorrow if clinically stable. Hypertension, uncontrolled: Blood pressures improved. Will continue with medication. Patient to have dialysis again today. Should see some improvement with dialysis. End-stage renal disease on hemodialysis with hyperkalemia and hyponatremia: Case discussed with nephrology. Patient to get dialysis today. Possible removal of 4 L expected. Diabetes mellitus type 2, non insulin-dependent with hyperglycemia: Will check A1c. Will monitor Accu-Cheks and continue sliding scale. Patient may require medication at discharge Hyperlipidemia: Continue home medication. Time Spent Managing Pts Care (In Minutes): 55
[2019-01-09] MEDS ORDERED: BENZONATATE 100 MG CAP PO PRN (13:13)
[2019-01-09] MEDS: ATORVASTATIN 10 MG TAB PO SCH (21:23)
[2019-01-09] MEDS: GUAIFENESIN 600 MG SA TAB PO SCH (21:23)
[2019-01-09] MEDS: ZOLPIDEM TARTRATE 10 MG TABLET PO SCH (21:24)
[2019-01-10] MEDS: IPRATROPIUM BROM 0.5MG/2.5ML NEB SCH ×3 (01:40→15:30)
[2019-01-10] MEDS: ALBUTEROL 2.5 MG/3 ML NEB SOL NEB SCH ×3 (01:40→15:30)
[2019-01-10] MEDS: TIZANIDINE 4 MG TABLET PO SCH ×2 (05:54→17:56)
[2019-01-10] MEDS: INSULIN -REGULAR HUMAN 50 UNIT/0.5 ML ML SQ SCH ×3 (07:30→17:55)
[2019-01-10 07:37] LABS: Potassium 5.8 mmol/L (3.5-5.1)
[2019-01-10] MEDS: cloNIDine HCL 0.1 MG TAB PO SCH ×2 (08:19→15:11)
[2019-01-10] MEDS: GUAIFENESIN 600 MG SA TAB PO SCH (08:20)
[2019-01-10] MEDS: carvediloL 6.25 MG TAB PO SCH (08:20)
[2019-01-10] MEDS: GABAPENTIN 100 MG CAP PO SCH ×2 (08:20→14:38)
[2019-01-10] MEDS: HYDROCODONE/APAP 10/325 TAB PO PRN ×2 (08:20→15:16)
[2019-01-10] MEDS: HYDRALAZINE HCL 25 MG TABLET PO SCH ×2 (08:21→15:11)
[2019-01-10] MEDS: DULERA 200/5 (MOMETASONE/FORMOTEROL) INHALER IH SCH (08:22)
[2019-01-10] MEDS: HEPARIN 5000 UNIT/ML 1 ML VIAL SQ SCH (08:23)
--- NOTE | 2019-01-10 08:40 | P.DS ---
Admission Date: 01/08/19 Discharge Date: 01/10/19 Primary Care Provider: Dr. Montoya; Nephrology-Dr. Rand Disposition: ROUTINE DISCHARGE Discharge Condition: GOOD Reason for Admission: Cough and hemoptysis Consultations: Pulmonary-Dr. Soler Nephrology-Dr. Loaiza Procedures: CT chest: FINDINGS: Lung Strange: There is moderately severe cylindrical bronchiectasis within the upper and lower lung strange bilaterally. There are associated mild peribronchial infiltrates demonstrated. There are innumerable small 2 to 3 mm micronodular infiltrates throughout the lung strange bilaterally. Calcified granulomas are noted on the left. Mediastinal Structures: There is extensive atherosclerotic disease about the thoracic aorta and coronary arteries. There is no pericardial effusion. There are prominent mediastinal lymph nodes which may be reactive to the bilateral pulmonary infiltrates. Pleural Space: Normal. Axillae: Normal. Upper Abdomen: There is evidence of hepatic cirrhosis. Bony Structures: There are prominent Schmorl's node deformities throughout multiple vertebral and lower thoracic spine.. IMPRESSION: 1. Diffuse bilateral pulmonary infiltrates as described above. Mycobacterial pulmonary disease should be considered. 2. Mildly prominent mediastinal lymph nodes which are likely reactive to the pulmonary infiltrates. 3. Atherosclerotic disease. 4. Hepatic cirrhosis. Follow up CXR: COMPARISON: Chest Single View dated 01/07/2019; Chest Single View dated 2018; Chest Single View dated 09/25/2018; Chest Single View dated 09/14/2018; Thorax Wo Con dated 01/07/2019 FINDINGS: The lungs appear mildly emphysematous but clear of acute infiltrate. Previously noted reticular opacities have improved. The heart is normal in size. No displaced fractures. IMPRESSION: Moderate improvement in lung aeration is seen since comparative examination. Medical Problem List: Dyspnea secondary to bilateral pneumonia, failed outpatient therapy, complicated with COPD exacerbation Hypertension, uncontrolled End-stage renal disease on hemodialysis with hyperkalemia and hyponatremia Diabetes mellitus type 2, non insulin-dependent with hyperglycemia Hyperlipidemia Chronic liver cirrhosis Diabetic neuropathy with chronic pain Brief History of Present Illness: 63-year-old male with history of end-stage renal disease on hemodialysis, hypertension. Patient recently evaluated and discharge home for pneumonia. Patient continued to have persistent cough, congestion. Patient returned to the hospital for failed outpatient therapy. CT scan revealed worsening bilateral pneumonia. Patient was admitted for treatment. Hospital Course: Patient presented with shortness of breath secondary to bilateral pneumonia failed outpatient therapy. This was complicated with COPD exacerbation. Patient was admitted and given IV antibiotic therapy. Patient seen and evaluated by pulmonology. Previous sputum culture done in September showed Pseudomonas. Current sputum cultures, blood cultures and urine cultures unremarkable. Culture sent for AFB. Patient has significantly improved. Patient has been weaned off oxygen. At discharge patient will continue with Levaquin 250 mg 1 pill every 48 hr for 3 more doses. Patient will be provided medication-Tessalon Perles 100 mg 3 times a day as needed for cough and Mucinex 600 mg twice daily as needed for congestion. Patient will also continue with prednisone 10 mg 1 pill twice daily for 5 days then 1 pill once daily for 5 days. COPD medication adjusted. Patient will no longer take Advair, this was replaced with Dulera. Patient will continue with COPD medication Dulera 2 puffs twice daily and albuterol 2 puffs 3 times a day as needed for shortness of breath. Recommend follow up with pulmonology in 1-2 weeks to follow up this hospitalization. Patient will follow up with pulmonology and go over sputum results. Recommend recheck chest x-ray in 2-4 weeks to monitor resolution. Patient with hypertension. This improved with dialysis. Medications were adjusted during the course of the stay. Lisinopril was discontinued. Clonidine was increased. New medication includes carvedilol. At discharge he will continue with clonidine 0.2 mg 1 pill 3 times a day, hydralazine 100 mg 3 times a day, and carvedilol 6.25 mg 1 pill twice daily. Recommend to maintain blood pressures less 150/80. Further adjustment can be done of by nephrology. Patient with end-stage renal disease on hemodialysis. Patient presented with hyperkalemia and hyponatremia. This improved. Patient received dialysis during the course of his stay. Patient seen and evaluated by nephrology. Patient will continue with his hemodialysis regimen of every Monday, Monday and Monday. Recommend no further use of nonsteroidal anti-inflammatories. Future medications will need to be renally dosed. Recommend follow up with nephrology in 1-2 weeks. Patient with diabetes mellitus type 2 [id number] with hyperglycemia. This improved during the course of his stay. A1c 5.9. At discharge he will continue with diet control. Will recommend to continue to monitor hemoglobin A1c every 3 months. Recommend to maintain blood sugars less 140 fasting and less than 200 after meals. If blood sugar remains elevated then the patient may require medication in the future. This can be further monitored by his PCP. Patient with diabetic neuropathy and chronic pain. At discharge patient will continue with hydrocodone 10/325 mg every 6 hr as needed for pain and gabapentin 100 mg 3 times a day. Patient would benefit with pain management referral. This can be done with the help of his PCP. Patient with hyperlipidemia. At discharge he will continue with his medication- pravastatin 40 mg daily. Patient with chronic liver cirrhosis. At discharge he will continue with lactulose 20 g daily as needed. Recommend to maintain at least 2-3 bowel movements per day. Recommend follow up with GI to further monitor and address. Vital Signs/Physical Exam: Temp Pulse Resp BP Pulse Ox 98.4 F 62 18 179/76 H 96 01/10/19 04:00 01/10/19 08:20 01/10/19 08:20 01/10/19 08:20 01/10/19 04:00 General: Alert, In no apparent distress, Oriented x3, Cooperative HEENT: Atraumatic Neck: Supple Respiratory: Clear to auscultation bilaterally, Normal air movement Cardiovascular: Normal pulses, Regular rate/rhythm Gastrointestinal: Normal bowel sounds, Soft and benign, Non-distended Neurological: Normal speech, Normal strength at 5/5 x4 extr, Normal tone, Normal affect Laboratory Data at Discharge: WBC 8.8 K/uL (4.3-10.9) 01/09/19 05:12 Hgb 12.3 g/dL (13.6-17.9) L 01/09/19 05:12 Hct 37.1 % (39.6-49.0) L 01/09/19 05:12 Plt Count 182 K/uL (152-406) D 01/09/19 05:12 PT 12.0 SECONDS (9.5-12.5) 01/07/19 21:05 INR 1.02 01/07/19 21:05 APTT 30.2 SECONDS (24.3-36.9) 01/07/19 21:05 Sodium 134 mmol/L (136-145) L 01/10/19 07:08 Potassium 5.8 mmol/L (3.5-5.1) H* 01/10/19 07:08 BUN 58 mg/dL (7-18) H D 01/10/19 07:08 Creatinine 6.92 mg/dL (0.55-1.3) H* D 01/10/19 07:08 Glucose 121 mg/dL (74-106) H 01/10/19 07:08 Phosphorus 6.6 mg/dL (2.5-4.9) H 01/09/19 05:12 Magnesium 2.6 mg/dL (1.8-2.4) H 01/07/19 21:05 Total Bilirubin 0.5 mg/dL (0.2-1.0) 01/09/19 05:12 AST 11 U/L (15-37) L 01/09/19 05:12 ALT 11 U/L (12-78) L 01/09/19 05:12 Alkaline Phosphatase 104 U/L (45-117) 01/09/19 05:12 Triglycerides 89 mg/dL (<150) 01/09/19 05:12 Cholesterol 121 mg/dL (<200) 01/09/19 05:12 HDL Cholesterol 62 mg/dL (40-60) H 01/09/19 05:12 Cholesterol/HDL Ratio 1.95 01/09/19 05:12 Lipase 106 U/L (73-393) 01/07/19 21:05 Home Medications: Gabapentin [Neurontin*] 100 mg PO TID 01/02/19 Hydralazine HCl [Apresoline] 100 mg PO TID 01/02/19 Hydrocodone 10/APAP 325 [[place] 10/325*] 1 tab PO Q6H PRN 01/02/19 Lactulose 20 gm PO DAILYPRN PRN 01/02/19 Pravastatin Sodium [Pravachol] 40 mg PO BEDTIME 01/02/19 Tobramycin/Dexamethasone [Tobramycin-Dexameth Ophth Susp] 2 gtt OP BID 01/02/19 Zolpidem Tartrate [Ambien*] 10 mg PO BEDTIME 01/02/19 Albuterol Sulfate [Proair Hfa] 2 puff IH TID PRN #1 hfa.aer.ad 01/10/19 Benzonatate [Tessalon Perle*] 100 mg PO TID PRN #15 cap 01/10/19 Carvedilol [Coreg*] 6.25 mg PO BID #60 tab 01/10/19 Guaifenesin [Mucinex] 600 mg PO BID #15 tab.er.12h 01/10/19 Mometasone/Formoterol [Dulera 200 Mcg/5 Mcg Inhaler] 2 puff IH BID #1 inhaler cloNIDine HCl [Catapres*] 0.2 mg PO TID #180 tab 01/10/19 levoFLOXacin [Levaquin*] 250 mg PO Q48H #3 tab 01/10/19 predniSONE [Deltasone*] 10 mg PO SEECOM #15 tab 01/10/19 New Medications: Albuterol Sulfate [Proair Hfa] 2 puff IH TID PRN #1 hfa.aer.ad PRN Reason: Shortness Of Breath Benzonatate [Tessalon Perle*] 100 mg PO TID PRN #15 cap PRN Reason: Cough Carvedilol [Coreg*] 6.25 mg PO BID #60 tab cloNIDine HCl [Catapres*] 0.2 mg PO TID #180 tab Guaifenesin [Mucinex] 600 mg PO BID #15 tab.er.12h levoFLOXacin [Levaquin*] 250 mg PO Q48H #3 tab Mometasone/Formoterol [Dulera 200 Mcg/5 Mcg Inhaler] 2 puff IH BID #1 inhaler predniSONE [Deltasone*] 10 mg PO SEECOM #15 tab Patient Discharge Instructions: 1. Recommend follow up with his PCP in 1 week to follow up this hospitalization. 2. Patient presented with shortness of breath secondary to bilateral pneumonia failed outpatient therapy. This was complicated with COPD exacerbation. Patient was admitted and given IV antibiotic therapy. Patient seen and evaluated by pulmonology. Previous sputum culture done in September showed Pseudomonas. Current sputum cultures, blood cultures and urine cultures unremarkable. Culture sent for AFB. Patient has significantly improved. Patient has been weaned off oxygen. At discharge patient will continue with Levaquin 250 mg 1 pill every 48 hr for 3 more doses. Patient will be provided medication-Tessalon Perles 100 mg 3 times a day as needed for cough and Mucinex 600 mg twice daily as needed for congestion. Patient will also continue with prednisone 10 mg 1 pill twice daily for 5 days then 1 pill once daily for 5 days. COPD medication adjusted. Patient will no longer take Advair, this was replaced with Dulera. Patient will continue with COPD medication Dulera 2 puffs twice daily and albuterol 2 puffs 3 times a day as needed for shortness of breath. Recommend follow up with pulmonology in 1-2 weeks to follow up this hospitalization. Patient will follow up with pulmonology and go over sputum results. Recommend recheck chest x-ray in 2-4 weeks to monitor resolution. 3. Patient with hypertension. This improved with dialysis. Medications were adjusted during the course of the stay. Lisinopril was discontinued. Clonidine was increased. New medication includes carvedilol. At discharge he will continue with clonidine 0.2 mg 1 pill 3 times a day, hydralazine 100 mg 3 times a day, and carvedilol 6.25 mg 1 pill twice daily. Recommend to maintain blood pressures less 150/80. Further adjustment can be done of by nephrology. 4. Patient with end-stage renal disease on hemodialysis. Patient presented with hyperkalemia and hyponatremia. This improved. Patient received dialysis during the course of his stay. Patient seen and evaluated by nephrology. Patient will continue with his hemodialysis regimen of every Monday, Monday and Monday. Recommend no further use of nonsteroidal anti-inflammatories. Future medications will need to be renally dosed. Recommend follow up with nephrology in 1-2 weeks. 5. Patient with diabetes mellitus type 2 [id number] with hyperglycemia. This improved during the course of his stay. A1c 5.9. At discharge he will continue with diet control. Will recommend to continue to monitor hemoglobin A1c every 3 months. Recommend to maintain blood sugars less 140 fasting and less than 200 after meals. If blood sugar remains elevated then the patient may require medication in the future. This can be further monitored by his PCP. 6. Patient with diabetic neuropathy and chronic pain. At discharge patient will continue with hydrocodone 10/325 mg every 6 hr as needed for pain and gabapentin 100 mg 3 times a day. Patient would benefit with pain management referral. This can be done with the help of his PCP. 7. Patient with hyperlipidemia. At discharge he will continue with his medication- pravastatin 40 mg daily. 8. Patient with chronic liver cirrhosis. At discharge he will continue with lactulose 20 g daily as needed. Recommend to maintain at least 2-3 bowel movements per day. Recommend follow up with GI to further monitor and address. Diet: ADA Activity: Ad wu Time spent managing pt's care (in minutes): 55
[2019-01-10] MEDS ORDERED: levoFLOXacin 250 MG TAB PO SCH (09:00)
--- NOTE | 2019-01-10 09:28 | RAD REPORT ---
EXAM DESCRIPTION: RAD - Chest Pa And Lat (2 Views) - 01/10/2019 9:14 am CLINICAL HISTORY: Follow up pneumonia Chest pain. COMPARISON: Chest Single View dated 01/07/2019; Chest Single View dated 01/02/2019; Chest Single View dated 09/25/2018; Chest Single View dated 09/14/2018; Thorax Wo Con dated 01/07/2019 FINDINGS: The lungs appear mildly emphysematous but clear of acute infiltrate. Previously noted reti cular opacities have improved. The heart is normal in size. No displaced fractures. IMPRESSION: Moderate improvement in lung aeration is seen since comparative examination.
[2019-01-10 14:59] LABS: Potassium 4.5 mmol/L (3.5-5.1)
[2019-01-10] MEDS ORDERED: LACTULOSE 20 GM/30 ML UCUP PO ONE (15:05)
[2019-01-10 15:52] VITALS: O2SAT 95
[2019-01-10 17:53] VITALS: BP 181/77; TEMP 97.8
--- NOTE | 2019-01-11 01:58 | PN ---
Date of Progress Note: 01/10/2019 Chief Complaint: End-stage renal disease, hyperkalemia. History Of Present Illness: Patient has end-stage renal disease. He received dialysis yesterday. D espite dialysis, potassium level today was elevated and the patient underwent additional dialysis ses robina. After dialysis, potassium level improved, normalized. Patient was instructed about low-potass ium diet. Patient presented to the hospital because of dyspnea and he was found to have bilateral pneumonia. Kareem castellanos has history of COPD and was found to have COPD exacerbation and he was treated for uncontrolled hyp ertension. Review of Systems: Denies PND, orthopnea. Physical Examination: Lungs: Coarse breath sounds bilaterally at bases. Heart: S1, S2. Abdomen: Soft, benign. Extremities: No edema. Impression And Plan: 1.End-stage renal disease. Continue p.o. fluid restriction. Monitor fluid balance. Advance ultraf iltration to treat fluid overload. 2.Hyperkalemia, resolved. Dialysis was ordered with urgent procedure to treat hyperkalemia. 3.Diabetes mellitus. Continue insulin. 4.Anemia, chronic kidney disease, continue DEXTER. 5.Renal osteodystrophy, continue renal diet. EB/MODL Voice ID: [id number] Report ID: [id number]
[2019-01-12] MEDS ORDERED: levoFLOXacin 250 MG TAB PO SCH (09:00)
--- OUTSIDE RECORDS SUMMARY | 2019-01-13 21:52 | XMS REPORT ---
:1955 [facility] Address [address] [place] [address] Dr. Meadows [address] [place] [address] Care Team Providers Name Role Phone JOHN [...] Range Comments PROSTATE SPECIFIC ANTIGEN (BEAKER) (test zajr=727) 0.8 ng/mL 0.0-4.0 HEPATITIS B SURFACE [id number] 17:11:00 Test Item Value Reference Range Comments HEPATITIS B SURFACE ANTIBODY (BEAKER) (test 612.9 mIU/mL <8.0 reky=933) PROTHROMBIN [id number] 14:59:00 Test Item Value Reference Range Comments PROTIME (BEAKER) (test mhod=189) 15.6 seconds 11.7-14.7 INR (BEAKER) (test xtni=323) 1.2 <=5.9 RECOMMENDED COUMADIN/WARFARIN INR THERAPY RANGESSTANDARD DOSE: 2.0 - 3.0 Includes: PROPHYLAXIS forvenous thrombosis, systemic embolization; TREATMENT for venous thrombosis and/or pulmonary embolus.HIGH RISK: Target INR is 2.5-3.5 for patients with mechanical heart valves.BASIC METABOLIC [id number] 14:58: 00 Test Item Value Reference Range Comments SODIUM (BEAKER) (test 137 meq/L 136-145 zwgw=159) POTASSIUM (BEAKER) (test 4.7 meq/L 3.5-5.1 tvtp=340) CHLORIDE (BEAKER) (test 97 meq/L 98-107 nurp=717) CO2 (BEAKER) (test 30 meq/L 22-29 xwxv=112) BLOOD UREA NITROGEN 31 mg/dL 7-21 (BEAKER) (test ivqf=365) CREATININE (BEAKER) (test 5.68 mg/dL 0.57-1.25 euum=151) GLUCOSE RANDOM (BEAKER) 343 mg/dL 70-105 (test jjjj=992) CALCIUM (BEAKER) (test 8.5 mg/dL 8.4-10.2 qnmp=972) EGFR (BEAKER) (test 10 mL/min/1.73 sq m ESTIMATED GFR IS NOT oirj=9804) ACCURATE CREATININE CLEARANCE IN PREDICTING GLOMERULAR FILTRATION RATE. ESTIMATED GFR IS NOT APPLICABLE FOR DIALYSIS PATIENTS. HEPATIC FUNCTION [id number] 14:53:00 Test Item Value Reference Range Comments TOTAL PROTEIN (BEAKER) (test tejs=865) 7.1 gm/dL 6.0-8.3 ALBUMIN (BEAKER) (test cosa=7417) 3.2 g/dL 3.5-5.0 BILIRUBIN TOTAL (BEAKER) (test iztv=062) 0.5 mg/dL 0.2-1.2 BILIRUBIN DIRECT (BEAKER) (test jutu=212) 0.2 mg/dL 0.1-0.5 ALKALINE PHOSPHATASE (BEAKER) (test tewo=997) 124 U/L 40-150 AST (SGOT) (BEAKER) (test baju=147) 13 U/L 5-34 ALT (SGPT) (BEAKER) (test wunr=242) 7 U/L 6-55 CBC W/PLT COUNT & AUTO [id number] 14:19:00 Test Item Value Reference Range Comments WHITE BLOOD CELL COUNT (BEAKER) (test rrtf=255) 8.1 K/ L 3.5-10.5 RED BLOOD CELL COUNT (BEAKER) (test nedv=853) 3.54 M/ L 4.63-6.08 HEMOGLOBIN (BEAKER) (test zbzn=179) 10.2 GM/DL 13.7-17.5 HEMATOCRIT (BEAKER) (test tznv=170) 33.2 % 40.1-51.0 MEAN CORPUSCULAR VOLUME (BEAKER) (test rwce=572) 93.8 fL 79.0-92.2 MEAN CORPUSCULAR HEMOGLOBIN (BEAKER) (test 28.8 pg 25.7-32.2 zanp=123) MEAN CORPUSCULAR HEMOGLOBIN CONC (BEAKER) (test 30.7 GM/DL 32.3-36.5 zqpn=185) RED CELL DISTRIBUTION WIDTH (BEAKER) (test 14.4 % 11.6-14.4 zuhr=113) PLATELET COUNT (BEAKER) (test bwzy=076) 253 K/CU MM 150-450 MEAN PLATELET VOLUME (BEAKER) (test whxs=639) 10.5 fL 9.4-12.4 NUCLEATED RED BLOOD CELLS (BEAKER) (test 0 /100 WBC 0-0 xvrl=126) NEUTROPHILS RELATIVE PERCENT (BEAKER) (test 64 % prjz=408) LYMPHOCYTES RELATIVE PERCENT (BEAKER) (test 25 % naut=613) MONOCYTES RELATIVE PERCENT (BEAKER) (test 8 % tcne=512) EOSINOPHILS RELATIVE PERCENT (BEAKER) (test 2 % flog=848) BASOPHILS RELATIVE PERCENT (BEAKER) (test 1 % wqlw=591) NEUTROPHILS ABSOLUTE COUNT (BEAKER) (test 5.20 K/ L 1.78-5.38 bodt=509) LYMPHOCYTES ABSOLUTE COUNT (BEAKER) (test 1.98 K/ L 1.32-3.57 ltvi=579) MONOCYTES ABSOLUTE COUNT (BEAKER) (test 0.62 K/ L 0.30-0.82 nuxp=845) EOSINOPHILS ABSOLUTE COUNT (BEAKER) (test 0.12 K/ L 0.04-0.54 icga=792) BASOPHILS ABSOLUTE COUNT (BEAKER) (test 0.11 K/ L 0.01-0.08 knet=323) IMMATURE GRANULOCYTES-RELATIVE PERCENT (BEAKER) 1 % 0-1 (test cefq=4756) FLOW PRA CLASS I AND [id number] 12:02:00 Test Item Value Reference Range Comments DATE OF SERUM (BEAKER) (test jowd=3085) [id number] SERUM # (BEAKER) (test zncu=7325) [id number] FLOW PRA CLASS I AND II (test wvpm=9173) See Scanned Report HEPATITIS B SURFACE [id number] 13:18:00 Test Item Value Reference Range Comments HEPATITIS B SURFACE ANTIBODY (BEAKER) (test < mIU/mL <8.0 hweh=496) [id number] 13:08:00 Test Item Value Reference Range Comments PROSTATE SPECIFIC ANTIGEN (BEAKER) (test zteb=831) 0.9 ng/mL 0.0-4.0 FLOW PRA CLASS I AND [id number] 16:00:00 Test Item Value Reference Range Comments DATE OF SERUM (BEAKER) (test xsls=4260) [id number] SERUM # (BEAKER) (test iotg=0200) [id number] FLOW PRA CLASS I AND II (test glaw=8439) See Scanned Report BASIC METABOLIC [id number] 15:51:00 Test Item Value Reference Range Comments SODIUM (BEAKER) (test 135 meq/L 136-145 lejp=761) POTASSIUM (BEAKER) (test 4.5 meq/L 3.5-5.1 exix=752) CHLORIDE (BEAKER) (test 92 meq/L 98-107 lniu=165) CO2 (BEAKER) (test 27 meq/L 22-29 lvse=602) BLOOD UREA NITROGEN 26 mg/dL 7-21 (BEAKER) (test xmpl=603) CREATININE (BEAKER) (test 5.08 mg/dL 0.57-1.25 vvmi=564) GLUCOSE RANDOM (BEAKER) 296 mg/dL 70-105 (test ktxp=241) CALCIUM (BEAKER) (test 8.7 mg/dL 8.4-10.2 xvco=020) EGFR (BEAKER) (test 12 mL/min/1.73 sq m ESTIMATED GFR IS NOT hgvp=1170) ACCURATE CREATININE CLEARANCE IN PREDICTING GLOMERULAR FILTRATION RATE. ESTIMATED GFR IS NOT APPLICABLE FOR DIALYSIS PATIENTS. HEPATIC FUNCTION [id number] 15:48:00 Test Item Value Reference Range Comments TOTAL PROTEIN (BEAKER) (test comg=665) 7.3 gm/dL 6.0-8.3 ALBUMIN (BEAKER) (test lgds=9381) 3.6 g/dL 3.5-5.0 BILIRUBIN TOTAL (BEAKER) (test rdtb=863) 0.6 mg/dL 0.2-1.2 BILIRUBIN DIRECT (BEAKER) (test hisn=019) 0.2 mg/dL 0.1-0.5 ALKALINE PHOSPHATASE (BEAKER) (test lyph=203) 203 U/L 40-150 AST (SGOT) (BEAKER) (test ilwb=753) 17 U/L 5-34 ALT (SGPT) (BEAKER) (test wiwc=401) 14 U/L 6-55 CBC W/PLT COUNT & AUTO [id number] 15:11:00 Test Item Value Reference Range Comments WHITE BLOOD CELL COUNT (BEAKER) (test kkrl=038) 8.0 K/ L 4.0-10.0 RED BLOOD CELL COUNT (BEAKER) (test shju=825) 3.27 M/ L 4.20-5.80 HEMOGLOBIN (BEAKER) (test oqlv=887) 10.2 GM/DL 13.0-16.8 HEMATOCRIT (BEAKER) (test jwlc=598) 30.3 % 40.0-50.0 MEAN CORPUSCULAR VOLUME (BEAKER) (test upzp=164) 92.6 fL 82.0-98.0 MEAN CORPUSCULAR HEMOGLOBIN (BEAKER) (test 31.2 pg 27.0-33.0 czpx=972) MEAN CORPUSCULAR HEMOGLOBIN CONC (BEAKER) (test 33.7 GM/DL 32.0-36.0 xnfz=504) RED CELL DISTRIBUTION WIDTH (BEAKER) (test 12.9 % 10.3-14.2 onfz=607) PLATELET COUNT (BEAKER) (test imxs=278) 248 K/CU MM 150-430 MEAN PLATELET VOLUME (BEAKER) (test xbkg=946) 7.3 fL 6.5-10.5 NUCLEATED RED BLOOD CELLS (BEAKER) (test 0 /100 WBC 0-0 njvt=164) NEUTROPHILS RELATIVE PERCENT (BEAKER) (test 65 % dsau=191) LYMPHOCYTES RELATIVE PERCENT (BEAKER) (test 24 % brvb=501) MONOCYTES RELATIVE PERCENT (BEAKER) (test 8 % wvne=027) EOSINOPHILS RELATIVE PERCENT (BEAKER) (test 3 % qmts=218) BASOPHILS RELATIVE PERCENT (BEAKER) (test 1 % diyr=071) NEUTROPHILS ABSOLUTE COUNT (BEAKER) (test 5.16 K/ L 1.80-8.00 yolq=771) LYMPHOCYTES ABSOLUTE COUNT (BEAKER) (test 1.89 K/ L 1.48-4.50 wbpp=339) MONOCYTES ABSOLUTE COUNT (BEAKER) (test 0.67 K/ L 0.00-1.30 jouk=796) EOSINOPHILS ABSOLUTE COUNT (BEAKER) (test 0.20 K/ L 0.00-0.50 haga=787) BASOPHILS ABSOLUTE COUNT (BEAKER) (test 0.07 K/ L 0.00-0.20 dcdz=876) 0.00AFB CULTURE + [id number] 19:58:00 Test Item Value Reference Range Comments CULTURE (BEAKER) (test No acid-fast bacilli isolated wtpo=0536) in 42 days AFB SMEAR (BEAKER) (test No acid fast bacilli seen vkrx=069) AFB CULTURE + [id number] 19:58:00 Test Item Value Reference Range Comments CULTURE (BEAKER) (test No acid-fast bacilli isolated tiok=7684) in 42 days AFB SMEAR (BEAKER) (test No acid fast bacilli seen fsdi=078) AFB CULTURE + [id number] 18:21:00 Test Item Value Reference Range Comments CULTURE (BEAKER) (test No acid-fast bacilli isolated vseu=9202) in 42 days AFB SMEAR (BEAKER) (test No acid fast bacilli seen dgep=083) POCT-GLUCOSE [id number] 10:30:00 Test Item Value Reference Range Comments POC-GLUCOSE METER (BEAKER) 468 mg/dL 70-110 TESTED AT [facility] [address] [facility] (test clfj=3950) [facility] [address] CREATINE KINASE (CK), TOTAL AND [id number] 08:31:00 Test Item Value Reference Range Comments CREATINE KINASE TOTAL (BEAKER) (test waqf=149) 42 U/L 29-200 CREATINE KINASE-MB (BEAKER) (test ssqb=798) 2.3 ng/mL 0.0-6.6 CREATINE KINASE-MB INDEX (BEAKER) (test newn=547) 5.5 % Effective 01/21/2014: CK-MB Reference Range ChangeNew: 0.0-6.6 Previous: 0.0- 4.9CK-MB Reference Range:<6.7 Normal6.7-10.0 Borderline>10.0 AbnormalTROPONIN [id number] 08:31:00 Test Item Value Reference Range Comments TROPONIN I (BEAKER) (test ybda=837) 0.05 ng/mL 0.00-0.03 Effective 01/21/2014: Reference Range [...] acute neurological disease, and persistent tachyarrhythmia.BASIC METABOLIC [id number] 08:27:00 Test Item Value Reference Range Comments SODIUM (BEAKER) (test 128 meq/L 136-145 rztc=647) POTASSIUM (BEAKER) (test 4.2 meq/L 3.5-5.1 utth=439) CHLORIDE (BEAKER) (test 91 meq/L 98-107 clxu=088) CO2 (BEAKER) (test 20 meq/L 22-29 hsgy=177) BLOOD UREA NITROGEN 49 mg/dL 7-21 (BEAKER) (test eyfu=277) CREATININE (BEAKER) (test 6.84 mg/dL 0.57-1.25 vcfj=858) GLUCOSE RANDOM (BEAKER) 655 mg/dL 70-105 (test clnc=685) CALCIUM (BEAKER) (test 7.7 mg/dL 8.4-10.2 bubj=084) EGFR (BEAKER) (test 8 mL/min/1.73 sq m ESTIMATED GFR IS NOT xewq=3106) ACCURATE CREATININE CLEARANCE IN PREDICTING GLOMERULAR FILTRATION RATE. ESTIMATED GFR IS NOT APPLICABLE FOR DIALYSIS PATIENTS. [id number] 08:24:00 Test Item Value Reference Range Comments MAGNESIUM (BEAKER) (test ukni=135) 2.4 mg/dL 1.6-2.6 CBC W/PLT COUNT & AUTO [id number] 08:17:00 Test Item Value Reference Range Comments WHITE BLOOD CELL COUNT (BEAKER) (test nymn=912) 8.9 K/ L 4.0-10.0 RED BLOOD CELL COUNT (BEAKER) (test gwmv=458) 3.08 M/ L 4.20-5.80 HEMOGLOBIN (BEAKER) (test mydn=517) 9.7 GM/DL 13.0-16.8 HEMATOCRIT (BEAKER) (test ramt=682) 28.6 % 40.0-50.0 MEAN CORPUSCULAR VOLUME (BEAKER) (test poao=232) 92.9 fL 82.0-98.0 MEAN CORPUSCULAR HEMOGLOBIN (BEAKER) (test 31.5 pg 27.0-33.0 uqls=361) MEAN CORPUSCULAR HEMOGLOBIN CONC (BEAKER) (test 33.9 GM/DL 32.0-36.0 dadd=504) RED CELL DISTRIBUTION WIDTH (BEAKER) (test 14.3 % 10.3-14.2 bhiy=739) PLATELET COUNT (BEAKER) (test mtmo=259) 159 K/CU MM 150-430 MEAN PLATELET VOLUME (BEAKER) (test ejet=030) 8.7 fL 6.5-10.5 NUCLEATED RED BLOOD CELLS (BEAKER) (test 0 /100 WBC 0-0 hoxb=338) NEUTROPHILS RELATIVE PERCENT (BEAKER) (test 82 % litf=908) LYMPHOCYTES RELATIVE PERCENT (BEAKER) (test 12 % fbpo=566) MONOCYTES RELATIVE PERCENT (BEAKER) (test 6 % wysx=274) EOSINOPHILS RELATIVE PERCENT (BEAKER) (test 1 % xajr=068) BASOPHILS RELATIVE PERCENT (BEAKER) (test 0 % soxs=108) NEUTROPHILS ABSOLUTE COUNT (BEAKER) (test 7.31 K/ L 1.80-8.00 bpyt=518) LYMPHOCYTES ABSOLUTE COUNT (BEAKER) (test 1.06 K/ L 1.48-4.50 yrdj=935) MONOCYTES ABSOLUTE COUNT (BEAKER) (test 0.51 K/ L 0.00-1.30 gkrn=232) EOSINOPHILS ABSOLUTE COUNT (BEAKER) (test 0.05 K/ L 0.00-0.50 iydc=310) BASOPHILS ABSOLUTE COUNT (BEAKER) (test 0.01 K/ L 0.00-0.20 hytw=773) 0.00
== END 2019-01-10 18:16 | disposition home or self-care (01) ==
LOC: ER 19:56 → ERHOLD 01-08 01:05 → 2ND 01-08 01:35
PROVIDERS: ADMIT Hospitalist; ATTEND Family Medicine
PROC: 5A1D70Z Performance of Urinary Filtration, Intermittent, Less than 6 Hours Per Day (ICD-10-PCS; principal; 2019-01-09)
PROC: 5A1D70Z Performance of Urinary Filtration, Intermittent, Less than 6 Hours Per Day (ICD-10-PCS; 2019-01-10)
DX: J18.9 Pneumonia, unspecified organism (principal); J44.1 Chronic obstructive pulmonary disease with (acute) exacerbation; E11.22 Type 2 diabetes mellitus with diabetic chronic kidney disease; I12.0 Hypertensive chronic kidney disease with stage 5 chronic kidney disease or end stage renal disease; N18.6 End stage renal disease; E87.5 Hyperkalemia; E87.1 Hypo-osmolality and hyponatremia; E78.5 Hyperlipidemia, unspecified; G89.29 Other chronic pain; J44.0 Chronic obstructive pulmonary disease with (acute) lower respiratory infection; N25.0 Renal osteodystrophy; D63.1 Anemia in chronic kidney disease; E11.65 Type 2 diabetes mellitus with hyperglycemia; E11.40 Type 2 diabetes mellitus with diabetic neuropathy, unspecified; Z87.891 Personal history of nicotine dependence; Z99.2 Dependence on renal dialysis
CPT/HCPCS: 93005; 87040 ×2; 87088; 85025 ×2; 80048 ×3; 36415 ×3; 80320; 83735; 82550; 87205; 84100; 85610; 80061; 82947 ×12; 85379; 80076; 80307 ×8; 85730; 83036; 84484; 82553; 83690; 80053; 83880; 71250; 71045; 71046; 90935 ×2; 97116; 97161; 94640 ×2; 94760 ×8; 96374; 99285; J1644 ×7; J0456; G0378 ×5; J7030; J2405; J2920 ×2; G0257; 81003; 81015; 87086; J7606

== ENCOUNTER 2019-09-30 12:56 | Observation (INO) | payer OTHER ==
[2019-09-30 13:54] LABS: Absolute Lymphocytes (CBC) 0.8 K/uL (0.7-4.9); Lymphocytes % 10.7 % (15.3-44.8); MPV 9.5 fL (7.6-11.3)
[2019-09-30 14:00] LABS: Basophils % 1.4 % (0-1.3); RBC Red Blood Cell Count 3.19 M/uL (4.33-5.43)
[2019-09-30 14:01] LABS: Protime INR 1.33
[2019-09-30 14:28] LABS: ALT/SGPT 289 U/L (12-78); Albumin 3.2 g/dL (3.4-5.0); Alkaline Phosphatase 158 U/L (45-117); BUN Blood Urea Nitrogen 21 mg/dL (7-18); Bicarbonate 29 mmol/L (21-32); Bilirubin Direct 0.7 mg/dL (0-0.2); Bilirubin Total 1.3 mg/dL (0.2-1.0); Glucose Level 176 mg/dL (74-106); Magnesium 2.2 mg/dL (1.8-2.4); Potassium 3.1 mmol/L (3.5-5.1); Protein, Total 7.2 g/dL (6.4-8.2); Sodium Level 135 mmol/L (136-145); Troponin (Emerg Dept Use Only) 0.07 ng/mL (0.0-0.045)
[2019-09-30 14:29] LABS: NT PRO-BNP > 175000 pg/mL (<125)
[2019-09-30 14:31] LABS: AST/SGOT 429 U/L (15-37)
[2019-09-30] MEDS ORDERED: ALBUTEROL INHALER 60 PUFF/8 GM IH ONE (15:41)
[2019-09-30] MEDS ORDERED: HYDROCODONE/APAP 10/325 TAB ONE (16:40)
[2019-09-30] MEDS: INSULIN -REGULAR HUMAN 50 UNIT/0.5 ML ML SQ SCH ×2 (19:56→21:00)
[2019-09-30] MEDS ORDERED: ONDANSETRON 4 MG/2 ML VIAL IV PRN (19:56)
[2019-09-30] MEDS: DULERA 100/5 (MOMETASONE/FORMOTEROL) INHALER IH SCH (21:00)
--- NOTE | 2019-09-30 21:11 | P.HP ---
Certification for Inpatient Patient admitted to: Observation With expected LOS: <2 Midnights Patient will require the following post-hospital care: None Practitioner: I am a practitioner with admitting privileges, knowledge of patient current condition, hospital course, and medical plan of care. Services: Services provided to patient in accordance with Admission requirements found in Title 42 Section 412.3 of the Code of Federal Regulations Patient History Date of Service: 09/30/19 Primary Care Provider: dmitriy Reason for admission: Chest pain, shortness of breath History of Present Illness: 64-year-old male with history of diabetes mellitus type 2, hypertension, chronic pain, end-stage renal disease on chronic hemodialysis, tobacco abuse presents emergency department for shortness of breath and chest pain from approximately 2 weeks. Patient reports he sees a astronomy professor in [place] is unsure the name of the doctor. Patient reports that he thinks he may have an echocardiogram earlier this year but cannot be completely sure. Patient does report that he failed a stress test approximately 6 months ago. Patient has not since been re-evaluated. Patient states he has never had a heart catheterization. During his evaluation in the emergency department was found to have a slightly elevated troponin 0.05, BNP is extremely elevated. Patient also is a heavy smoker and does sound like he is having some expiratory wheezing. Also possible he has underlying COPD undiagnosed. ED provider wishes to admit patient for further evaluation management. When I saw the patient in the emergency department he appeared stable, respirations even and labored. Will admit for further evaluation management. Allergies No Known Drug Allergies Allergy (Mild, Verified 01/08/19 02:05) Unknown Home Medications: Gabapentin [Neurontin*] 100 mg PO TID 01/02/19 Hydralazine HCl [Apresoline] 100 mg PO TID 01/02/19 Hydrocodone 10/APAP 325 [[place] 10/325*] 1 tab PO Q6H PRN 01/02/19 Lactulose 20 gm PO DAILYPRN PRN 01/02/19 Pravastatin Sodium [Pravachol] 40 mg PO BEDTIME 01/02/19 Tobramycin/Dexamethasone [Tobramycin-Dexameth Ophth Susp] 2 gtt OP BID 01/02/19 Zolpidem Tartrate [Ambien*] 10 mg PO BEDTIME 01/02/19 Albuterol Sulfate [Proair Hfa] 2 puff IH TID PRN #1 hfa.aer.ad 01/10/19 Benzonatate [Tessalon Perle*] 100 mg PO TID PRN #15 cap 01/10/19 Guaifenesin [Mucinex] 600 mg PO BID #15 tab.er.12h 01/10/19 Levofloxacin [Levaquin] 250 mg PO SEECOM #6 tablet 01/10/19 Mometasone/Formoterol [Dulera 200 Mcg/5 Mcg Inhaler] 2 puff IH BID #1 inhaler 01/10/19 carvediloL [Coreg*] 6.25 mg PO BID #60 tab 01/10/19 cloNIDine HCL [Catapres*] 0.2 mg PO TID #180 tab 01/10/19 predniSONE [Deltasone*] 10 mg PO SEECOM #15 tab 01/10/19 - Past Medical/Surgical History Diabetic: Yes -: Hepatitis-C (cured) -: HTN -: Hyperlipidemia -: Chronic pain -: Chronic anemia -: End-stage renal disease on hemodialysis (MWF) -: Diabetes mellitus type 2 -: Chronic pain -: Chronic anemia -: Cirrhosis of liver on the CT scan -: knee replacement -: ankle heel spur removed -: ankle surgery -: toe surgery -: back surgery -: TENS implant Psychosocial/ Personal History: Patient is . He has 2 children - Family History Sister -: Diabetes, Cancer Notes: colon ca Brother -: Hypertension, Diabetes dad -: Hypertension mom -: Hypertension Notes: dementia - Social History Smoking Status: Former smoker Alcohol use: No CD- Drugs: No Caffeine use: Yes Place of Residence: Home Review of Systems 10-point ROS is otherwise unremarkable Respiratory: Cough, Shortness of Breath Cardiovascular: Chest Pain Physical Examination - Physical Exam General: Alert, In no apparent distress HEENT: Atraumatic, PERRLA, Mucous membr. moist/pink, EOMI, Sclerae nonicteric Neck: Supple, 2+ carotid pulse no bruit, No LAD, Without JVD or thyroid abnormality Respiratory: Normal air movement, Crackles/rales, Expiratory wheezes Cardiovascular: Regular rate/rhythm, Normal S1 S2 Capillary refill: <2 Seconds Gastrointestinal: Normal bowel sounds, No tenderness Musculoskeletal: No tenderness Integumentary: No rashes Neurological: Normal gait, Normal speech, Normal strength at 5/5 x4 extr, Normal tone, Normal affect Lymphatics: No axilla or inguinal lymphadenopathy - Studies Laboratory Data (last 24 hrs) 09/30/19 13:40: PT 15.6 H, INR 1.33 09/30/19 13:40: WBC 7.4, Hgb 10.0 L, Hct 30.0 L, Plt Count 158 09/30/19 13:40: Sodium 135 L, Potassium 3.1 L, BUN 21 H, Creatinine 4.61 H, Glucose 176 H, Magnesium 2.2, Total Bilirubin 1.3 H, AST 429 H*, ALT 289 H, Alkaline Phosphatase 158 H Assessment and Plan - Plan Assessment Chest pain and shortness of breath with slightly elevated troponin complicated with end-stage renal disease on chronic hemodialysis End-stage renal disease on chronic hemodialysis Diabetes mellitus type 3-[id number] Hypertension Elevated liver enzymes likely secondary to cirrhosis, history of hepatitis-C Chronic pain Plan Chest pain and shortness of breath with slightly elevated troponin complicated with end-stage renal disease on chronic hemodialysis: Cardiology has been consulted on this case. Will trend troponins, echocardiogram ordered. Patient reports that he had a stress test that he was told he flunked approximately 6 months ago. Patient has not had further workup from that time. Patient states he may have had echocardiogram within the past year but he is not sure. Appreciate further input from cardiology. End-stage renal disease on chronic hemodialysis: Have consulted Nephrology. Patient is a Monday dialysis patient and he did complete dialysis today. Diabetes mellitus type 0-[id number]: Patient is diet controlled. Will still continue a.c. HS Accuchecks and mild sliding scale insulin therapy. Will also obtain A1c level. Hypertension: Will obtain and continue patient's home medications. In the meantime p.r.n. orders for blood pressure medication placed. Elevated liver enzymes likely secondary to cirrhosis, history of hepatitis-C: Will repeat liver enzymes with morning labs. Ultrasound of the liver also order. This can be further evaluated on an outpatient basis as patient is asymptomatic. Chronic pain: Had continue patient's home medications for pain. Discharge Plan: Home Plan to discharge in: 24 Hours - Advance Directives Does patient have a Living Will: No Does patient have a Durable POA for Healthcare: No - Code Status/Comfort Care Code Status Assessed: Yes (Patient is full code) Critical Care: No Time Spent Managing Pts Care (In Minutes): 55
--- NOTE | 2019-09-30 21:32 | ER ---
Nurse's Notes [facility] Name: Alexis Urbano Age: 64 yrs Sex: Male : 1955 Arrival Date: 09/30/2019 Time: 13:03 Bed 5 Private MD: Diagnosis: Acute upper respiratory infection, unspecified;Shortness of breath;Elevated troponin Presentation: 09/29 13:14 Chief complaint: Patient states: Cough and SOB with exertion for 5-6 days. No known ll1 fever. Had covid test at dialysis today, result pending. Coronavirus screen: Patient reports a cough. Patient reports shortness of breath or difficulty breathing. Patient denies measured and/or subjective temperature greater than 100.4F prior to today's visit. Patient denies travel on a cruise ship or to a country the [facility] currently lists as an affected area. Patient denies contact with known and/or suspected case of COVID-19. Patient instructed to continue to wear a mask when interacting with others. Patient moved to private room, placed in contact and droplet isolation with eye protection until further assessment. Ebola Screen: Patient denies travel to an Ebola-affected area in the 21 days before illness onset. Initial Sepsis Screen: Does the patient meet any 2 criteria? No. Patient's initial sepsis screen is negative. Risk Assessment: Do you want to hurt yourself or someone else? Patient reports no desire to harm self or others. Onset of symptoms was September 24, 2019. 13:14 Method Of Arrival: Wheelchair ll1 13:14 Acuity: JOEL 3 ll1 15:00 Initial Sepsis Screen: Does the patient have a suspected source of infection? No. vc Patient's initial sepsis screen is negative. Triage Assessment: 15:00 General: Appears in no apparent distress. uncomfortable, ill, obese, Behavior is calm, vc cooperative, appropriate for age. Respiratory: Onset: The symptoms/episode began/occurred 4-5 days ago, the patient has mild shortness of breath. Historical: - Allergies: 13:16 No Known Drug Allergies; ll1 - Home Meds: 20:29 amlodipine oral [Active]; aspirin 81 mg Oral chew 1 tab once daily [Active]; clonidine lp1 HCl Oral [Active]; Hydralazine Oral [Active]; Hydrocodone-Acetaminophen Oral [Active]; levamir [Active]; Metoprolol Tartrate Oral [Active]; Plavix Oral [Active]; Zanaflex Oral [Active]; Unknown blood thinner [Active]; - PMHx: 13:16 ESRD; Diabetes - IDDM; Hypertension; Dialysis; GERD; ll1 - PSHx: 13:16 left arm dialysis shunt; ll1 - Immunization history:: Adult Immunizations up to date. - Social history:: Smoking status: Patient/guardian denies using tobacco, Stopped _ months ago 1 Patient/guardian denies using street drugs. Screenin:37 Abuse screen: Denies threats or abuse. Denies injuries from another. Nutritional iw screening: No deficits noted. Tuberculosis screening: No symptoms or risk factors identified. Fall Risk IV access (20 points). Assessment: 13:35 General: Appears in no apparent distress. Behavior is calm, cooperative. General: iw Denies fever, feeling ill. Pain: Complains of pain in back. Neuro: Level of Consciousness is awake, alert, obeys commands, Oriented to person, place, time, situation, Moves all extremities. Full function. Cardiovascular: Rhythm is regular. Cardiovascular: Dialysis shunt: in the left bicep, with palpable thrill, with no erythema, with no edema, no bleeding noted. Respiratory: Reports shortness of breath on exertion cough that is non-productive, Airway is patent Respiratory effort is even, unlabored, Breath sounds are clear bilaterally. GI: Abdomen is flat, non-distended. Derm: Skin is intact, is healthy with good turgor. Musculoskeletal: Range of motion: intact in all extremities. 14:40 Reassessment: Assumed care of patient from ABBIE Peres. vc 14:41 Reassessment: Patient appears in no apparent distress at this time. Patient states he vc is having trouble breathing, Oxygen Saturation at 97%, patient placed on 2L O2 for comfort. Will continue to monitor. 15:00 Reassessment: Patient appears in no apparent distress at this time. Patient and/or vc family updated on plan of care and expected duration. Pain level reassessed. 16:00 Reassessment: Patient appears in no apparent distress at this time. Patient and/or vc family updated on plan of care and expected duration. Pain level reassessed. Patient states feeling better. 16:00 Respiratory: Reports cough that is productive, Sputum is thick, green. vc 17:00 Reassessment: Patient appears in no apparent distress at this time. Patient and/or vc family updated on plan of care and expected duration. Pain level reassessed. Patient is alert, oriented x 3, equal unlabored respirations, skin warm/dry/pink. 18:00 Reassessment: Patient appears in no apparent distress at this time. Patient and/or vc family updated on plan of care and expected duration. Pain level reassessed. Patient is alert, oriented x 3, equal unlabored respirations, skin warm/dry/pink. 19:00 Reassessment: Patient appears in no apparent distress at this time. Patient and/or vc family updated on plan of care and expected duration. Pain level reassessed. Patient is alert, oriented x 3, equal unlabored respirations, skin warm/dry/pink. 20:00 Reassessment: Patient appears in no apparent distress at this time. Patient aware of lp1 pending admission; states feeling short of breath; O2 at 96% on 2L. Respiratory: Airway is patent Respiratory effort is even. 20:53 Reassessment: report called to Deanne LEIVA for room 405. bb Vital Signs: 13:14 BP 154 / 55; Pulse 71; Resp 18; Temp 97.8; Pain 0/10; ll1 13:16 Pulse Ox 96% on R/A; ll1 15:12 BP 185 / 59; Pulse 70; Resp 18; Pulse Ox 99% on 2 lpm NC; sv 16:15 BP 184 / 56; Pulse 65; Resp 19; Pulse Ox 98% on 2 lpm NC; vc 18:30 BP 196 / 73; Pulse 59; Resp 16; Pulse Ox 96% on R/A; vc 20:00 BP 189 / 62; Pulse 60; Resp 17; Pulse Ox 96% on 2 lpm NC; lp1 21:06 BP 186 / 60; Pulse 58; Resp 18 S; Temp 97.9; Pulse Ox 98% on 2 lpm NC; bb ED Course: 13:03 Patient arrived in ED. mr 13:13 Jefferson Vasquez, MILTON is PHCP. pm1 13:13 Fito Ward MD is Attending Physician. pm1 13:15 Triage completed. ll1 13:16 Arm band placed on Patient placed in an exam room, on a stretcher. ll1 13:42 Larisa Walker, RN is Primary Nurse. iw 13:43 Initial lab(s) drawn, by me, sent to lab. Inserted saline lock: 20 gauge in right iw antecubital area, using aseptic technique. Blood collected. 13:58 XRAY Chest (1 view) In Process Unspecified. EDMS 14:53 Primary Nurse role handed off by Larisa Walker, ABBIE vc 14:53 Krupa Boyle, RN is Primary Nurse. vc 15:00 Patient has correct armband on for positive identification. Bed in low position. Call vc light in reach. Side rails up X2. dry goods inspector on. Pulse ox on. NIBP on. 15:29 Nicolas Farr MD is Hospitalizing Provider. pm1 19:30 No provider procedures requiring assistance completed. Patient admitted, IV remains in lp1 place. Administered Medications: 15:40 Drug: Albuterol HFA Inhaler 2 puffs Route: Inhalation; vc 16:41 Drug: [place] 10 mg-325 mg 1 tabs Route: PO; vc 19:03 Follow up: Response: No adverse reaction vc Outcome: 15:31 Decision to Hospitalize by Provider. pm1 20:00 Condition: stable lp1 20:00 Instructed on the need for admit. 21:07 Admitted to Tele accompanied by tech, via stretcher, room 405, with oxygen, with chart, bb Report called to Deanne LEIVA 21:07 Patient left the ED. bb Signatures: Dispatcher [employer] EDMS Ban Acevedo, RN Virginia Samaniego mr Chen, ABBIE Cade RN bb Larisa Walker, ABBIE LEIVA iw Wendy Smith, RN RN lp1 Jefferson Vasquez, BLOW MOLD TECHNICIAN BLOW MOLD TECHNICIAN pm1 Krupa Boyle RN RN vc Lewis, Lynsay, RN RN ll1
--- NOTE | 2019-09-30 21:32 | EDPHYS ---
Physician Documentation [facility] Name: Alexis Urbano Age: 64 yrs Sex: Male : 1955 Arrival Date: 09/30/2019 Time: 13:03 Bed 5 Private MD: ED Physician Fito Ward HPI: 09/29 13:26 This 64 yrs old Male presents to ER via Wheelchair with complaints of pm1 Breathing Difficulty. 13:26 The patient has shortness of breath at rest. Onset: The symptoms/episode began/occurred pm1 6 day(s) ago, chest pain for 2 weeks. Duration: The symptoms are continuous. The patient's shortness of breath is aggravated by smoking, is alleviated by nothing. Associated signs and symptoms: Pertinent positives: productive cough, Pertinent negatives: fever, nausea, vomiting. Severity of symptoms: in the emergency department the symptoms are worse. Patient with dialysis treatment today. Patient was screened for covid today at the dialysis center. Patient is a chain smoker, smoking more than 1 pack per day. He has not smoked in 6 days because he gets too short of breath with smoking. Starting 2 weeks ago, he has had chest pain that has been worsened with smoking. Historical: - Allergies: 13:16 No Known Drug Allergies; ll1 - Home Meds: 20:29 amlodipine oral [Active]; aspirin 81 mg Oral chew 1 tab once daily [Active]; clonidine lp1 HCl Oral [Active]; Hydralazine Oral [Active]; Hydrocodone-Acetaminophen Oral [Active]; levamir [Active]; Metoprolol Tartrate Oral [Active]; Plavix Oral [Active]; Zanaflex Oral [Active]; Unknown blood thinner [Active]; - PMHx: 13:16 ESRD; Diabetes - IDDM; Hypertension; Dialysis; GERD; ll1 - PSHx: 13:16 left arm dialysis shunt; ll1 - Immunization history:: Adult Immunizations up to date. - Social history:: Smoking status: Patient/guardian denies using tobacco, Stopped _ months ago 1 Patient/guardian denies using street drugs. ROS: 13:26 Constitutional: Negative for fever, chills, and weight loss. pm1 13:26 Abdomen/GI: Negative for abdominal pain, nausea, vomiting, diarrhea, and constipation, Back: Negative for injury and pain, : Negative for injury, bleeding, discharge, and swelling, MS/Extremity: Negative for injury and deformity, Skin: Negative for injury, rash, and discoloration, Neuro: Negative for headache, weakness, numbness, tingling, and seizure. 13:26 Cardiovascular: Positive for chest pain, Negative for edema, palpitations. 13:26 Respiratory: Positive for cough, with white sputum, shortness of breath. Exam: 13:26 Constitutional: This is a well developed, well nourished patient who is awake, alert, pm1 and in no acute distress. Head/Face: Normocephalic, atraumatic. Neck: Trachea midline, no thyromegaly or masses palpated, and no cervical lymphadenopathy. Supple, full range of motion without nuchal rigidity, or vertebral point tenderness. No Meningismus. 13:26 Back: No spinal tenderness. No costovertebral tenderness. Full range of motion. Skin: Warm, dry with normal turgor. Normal color with no rashes, no lesions, and no evidence of cellulitis. MS/ Extremity: Pulses equal, no cyanosis. Neurovascular intact. Full, normal range of motion. 13:26 Chest/axilla: Exam negative for acute changes, Inspection: normal, Palpation: is normal. 13:26 Cardiovascular: Exam negative for acute changes, Rate: normal, Rhythm: regular, Pulses: no pulse deficits are appreciated, Edema: is not appreciated. 13:26 Respiratory: the patient does not display signs of respiratory distress, Respirations: normal. 13:26 Abdomen/GI: Inspection: abdomen appears normal, Palpation: abdomen is soft and non-tender, in all quadrants. 13:26 Neuro: Orientation: is normal, Mentation: is normal, Motor: moves all fours. Vital Signs: 13:14 BP 154 / 55; Pulse 71; Resp 18; Temp 97.8; Pain 0/10; ll1 13:16 Pulse Ox 96% on R/A; ll1 15:12 BP 185 / 59; Pulse 70; Resp 18; Pulse Ox 99% on 2 lpm NC; sv 16:15 BP 184 / 56; Pulse 65; Resp 19; Pulse Ox 98% on 2 lpm NC; vc 18:30 BP 196 / 73; Pulse 59; Resp 16; Pulse Ox 96% on R/A; vc 20:00 BP 189 / 62; Pulse 60; Resp 17; Pulse Ox 96% on 2 lpm NC; lp1 21:06 BP 186 / 60; Pulse 58; Resp 18 S; Temp 97.9; Pulse Ox 98% on 2 lpm NC; bb MDM: 13:14 Patient medically screened. pm1 13:59 ED course: No ECG changes from 01/07/2019. pm1 15:25 Data reviewed: vital signs. pm1 15:25 Data interpreted: Pulse oximetry: on room air is 99 %. Interpretation: normal. pm1 Counseling: I had a detailed discussion with the patient and/or guardian regarding: the historical points, exam findings, and any diagnostic results supporting the discharge/admit diagnosis, lab results, radiology results, the need for further work-up and treatment in the hospital. 15:48 Physician consultation: Sixto MATHIS was called at 15:48, was contacted at 15:48, pm1 regarding admission, patient's condition, and will see patient in ED. 09/29 13:23 Order name: Basic Metabolic Panel; Complete Time: 14:54 pm1 09/29 13:23 Order name: CBC with Diff; Complete Time: 14:15 pm1 09/29 13:23 Order name: LFT's; Complete Time: 14:54 pm1 09/29 13:23 Order name: Magnesium; Complete Time: 14:54 pm1 09/29 13:23 Order name: NT PRO-BNP; Complete Time: 14:54 pm1 09/29 13:23 Order name: PT-INR; Complete Time: 14:15 pm1 09/29 13:23 Order name: Troponin (emerg Dept Use Only); Complete Time: 14:54 pm1 09/29 13:23 Order name: XRAY Chest (1 view) pm1 09/29 13:23 Order name: EKG; Complete Time: 13:24 pm1 09/29 13:23 Order name: Cardiac monitoring; Complete Time: 13:43 pm1 09/29 20:29 Order name: Glucose, Ancillary Testing; Complete Time: 15:33 EDMS 09/29 21:07 Order name: Troponin I; Complete Time: 15:33 EDMS 09/29 13:23 Order name: EKG - Nurse/Tech; Complete Time: 13:43 pm1 09/29 13:23 Order name: IV Saline Lock; Complete Time: 13:43 pm1 09/29 13:23 Order name: Labs collected and sent; Complete Time: 13:43 pm1 09/29 13:23 Order name: O2 Per Protocol; Complete Time: 13:43 pm1 09/29 13:23 Order name: O2 Sat Monitoring; Complete Time: 13:43 pm1 Administered Medications: 15:40 Drug: Albuterol HFA Inhaler 2 puffs Route: Inhalation; vc 16:41 Drug: [place] 10 mg-325 mg 1 tabs Route: PO; vc 19:03 Follow up: Response: No adverse reaction vc Disposition: 09/30/19 15:31 Hospitalization ordered by Nicolas Farr for Observation. Preliminary diagnosis are Elevated troponin, Acute upper respiratory infection, unspecified, Shortness of breath. - Bed requested for Telemetry/MedSurg (observation). - Status is Observation. bb - Condition is Stable. - Problem is new. - Symptoms have improved. Addendum: 10/02/2019 23:06 Co-signature as Attending Physician, Fito Ward MD. r n Signatures: Dispatcher [employer] EDMS Alyssia Chen RN RN Fito Osborne MD MD rn Pena, Laura RN RN lp1 Stacia Cordova RN RN cg Jefferson Vasquez, MILTON CLOUD SOFTWARE ENGINEER pm1 Krupa Boyle RN RN vc Lewis, Lynsay RN RN ll1 Corrections: (The following items were deleted from the chart) 09/29 15:31 15:31 Hospitalization Ordered by Nicolas Farr MD for Observation. Preliminary pm1 diagnosis is Acute upper respiratory infection, unspecified; Shortness of breath; Elevated troponin. Bed requested for Telemetry/MedSurg (observation). Status is Observation. Condition is Stable. Problem is new. Symptoms have improved. pm1 20:11 15:31 09/30/2019 15:31 Hospitalization Ordered by Nicolas Farr MD for Observation. cg Preliminary diagnosis is Elevated troponinAcute upper respiratory infection, unspecified; Shortness of breath. Bed requested for Telemetry/MedSurg (observation). Status is Observation. Condition is Stable. Problem is new. Symptoms have improved. pm1 21:07 20:11 09/30/2019 15:31 Hospitalization Ordered by Nicolas Farr MD for Observation. bb Preliminary diagnosis is Elevated troponinAcute upper respiratory infection, unspecified; Shortness of breath. Bed requested for Telemetry/MedSurg (observation). Status is Observation. Condition is Stable. Problem is new. Symptoms have improved. cg
--- OUTSIDE RECORDS SUMMARY | 2019-09-30 21:39 | XMS REPORT | Clinical Summary ---
:1955 Author Organization [facility] Address [address] [place] [address] Care Team Providers Name Role Phone Moiz Montoya MD Primary Care Provider Allergies Active Allergy Reactions Severity Noted Date Comments Crab Itching 03/31/2015 Itching in mout h, pt states okay with shrimp/crawfish Medications Medication Sig Dispensed Refills Start Date End Date Status cloNIDine HCl Take 0.2 mg by 0 A ctive (CATAPRES) 0.2 MG mouth 2 (two) tablet [...] . hydrALAZINE Take 2 tablets 0 04/11/2016 Ac tive (APRESOLINE) 25 MG (50 mg total) by tablet mouth 3 (three) times daily. pantoprazole (PROTONIX) Take 1 tablet (40 30 tablet 1 04/11/19 17 Active 40 MG tablet mg total) by [...] Coordination Note PCP- Rajendra ALONZO- Dr. Linares [phone] Problem Noted Date Acute respiratory failure with hypoxia 04/03/2016 Pneumonia, unspecified organism 04/03/2016 Uncontrolled hypertension 04/03/2016 Cranial neuropathies, multiple 04/02/2016 Diplopia 03/29/2016 Hypertension 03/29/2016 Type 2 diabetes mellitus with renal complication 03/29 Chronic hepatitis C virus infection 07/23/2015 Last Assessment & Plan: Lab studies confirm that he has hepatiti s C. Genotype is unknown and he is treatment-naive. Review of his labs and imaging suggest that he does not have advanced liver disease. Decision to keena t will be based on his genotype. Zepatier has been approved for treatment of GT 1 and 4 HCV in patients with ESRD/HD. Will check genotype and NS5A reflex resistance test ing today. Will obtain liver biopsy for our review. No further imaging needed at thi s time. Immunity status testing 07/23/2015 Last Assessment & Plan: CDC recommends that all patients with chronic liver disease, regardless of etiology, should be immunized to prevent hepatitis A and hepatitis B if they are not already immune. This should be done in ad dition to other age-appropriate vaccines . He is not immune to hepatitis B- the complete hepatitis B vaccination series is recommended. Unknown immunity to hepatitis A- will test for immunity today. ESRD (end stage renal disease) 07/23/2015 Last Assessment & Plan: He has ESRD on HD secondary to diabetic nephropathy. He is listed for renal transplant. He does not have findings co nsistent with advanced liver disease- no indication for dual organ transplant at this time. He continues to follow with nephrology. Metabolic syndrome 07/23/2015 Last Assessment & Plan: With T2DM and hypertension, he meets mainor wilks for metabolic syndrome. Management per his PCP. Encounters Date Type Specialty Care Team Description 05/22/2019 Documentation Transplant Sangita Hartman, ABBIE 04/24/2019 Telephone Transplant Sangita Hartman, Waitlist Maint young LEIVA 04/15/2019 Telephone Transplant Belinda Leal Appointment 04/15/2019 Telephone Central Scheduling Belinda Leal other 04/12/2019 Social Work Transplant Marian Faust, MEDICAL LAB SCIENTIST 04/08/2019 Telephone Transplant Belinda Leal Appointment 03/22/2019 Telephone Transplant Belinda Leal Appointment (reschedule mis sed apt. on 03/21/19 , annual updates) 03/20/2019 Outside Orders Radiology Rajendra Montoya Jr., MD 03/20/2019 Orders Only Transplant Sangita Hartman, Awaiting RN transplantation of kidney (Primary Dx) 02/25/2019 Telephone Transplant Belinda Leal Appointment 02/25/2019 Documentation Transplant Sangita Hartman, RN 02/25/2019 Telephone Transplant Belinda Leal Appointment 02/21/2019 Hospital Encounter Radiology Wayne Jhaveri, Pre-silva splant evaluation for ESRD (end stage renal disease); Essential hyper tension; Bilateral carot id artery occlusion; Diastolic dysfu nction, left ventricle 02/21/2019 Hospital Encounter Cardiology Wayne Jhaveri, Pre-silva splant evaluation for ESRD (end stage renal disease); Essential hyper tension; Bilateral carot id artery occlusion; Diastolic dysfu nction, left ventricle 02/21/2019 Hospital Encounter Cardiology Wayne Jhaveri, Pre-silva splant evaluation for ESRD (end stage renal disease); Essential hyper tension; Bilateral carot id artery occlusion; Diastolic dysfu nction, left ventricle 02/21/2019 Orders Only General Internal Medicine 02/20/2019 Telephone Transplant Belinda Leal Appointment 02/13/2019 Documentation Transplant Sangita Hartman, ABBIE 01/08/2019 Telephone Transplant Belinda Leal Appointment 01/07/2019 Telephone Transplant LealBelinda salgado Appointment 01/04/2019 Telephone Transplant LealBelinda salgado Appointment 01/02/2019 Orders Only Cardiology Wayne Jhaveri, Pre-transplant evaluation for ESRD (end stage renal disease) (Primary Dx); Essential hyper tension; Bilateral carot id artery occlusion; Diastolic dysfu nction, left ventricle 01/01/2019 Documentation Transplant Sangita Hartman, Awaiting silva splantation of kidney (Primary Dx); RN History of hepa titis C virus infection after 09/29/2018 Immunizations Name Dates Previously Given Next Due PPD Test 04/03/2016 Social History Tobacco Use Types Packs/Day Years Used Date Former Smoker Tobacco Cessation: Counseling Given: Yes Comments: Quit 2006 Alcohol Use Drinks/Week oz/Week Comments No Quit drinking 20 06; social drinker Sex Assigned at Date Recorded Not on file Job Start Date Occupation Industry Not on file Not on file Not on file Travel History Travel Start Travel End No recent travel history available. Last Filed Vital Signs Vital Sign Reading Time Taken Blood Pressure 140/42 02/21/2019 1:35 PM [employer] Pulse 74 02/21/2019 1:35 PM IND[employer]RIAL [employer]IGER[employer] MECH[employer]IC Temperature - - Respiratory Rate 20 02/21/2019 1:35 PM [employer]IGERATION MECH[employer]IC Oxygen Saturation - - Inhaled Oxygen Concentration - - Weight 74.8 kg (165 lb) 02/21/2019 11:19 AM IND[employer]RIAL RE[employer]IGERATION MECH[employer]IC Height 167.6 cm (5' 6") 02/21/2019 11:19 AM IND[employer]RIAL RE[employer]IGERATION ME[employer]IC Body Mass Index 26.63 02/21/2019 11:19 AM INDUSTRIAL REFRIGERATION MECHANIC Plan of Treatment Health Maintenance Due Date Last Done Comments PNEUMOCOCCAL VACCINE 2-64 YEARS AT RISK (1 08/29/1963 of 3 - PCV13) DIABETIC EYE EXAM 08/29/1967 DIABETIC FOOT EXAM 08/29/1967 URINE MICROALBUMIN 08/29/1967 MEDICARE ANNUAL WELLNESS (YEAR 2 or FIRST 03/07/2015 YEAR if no IPPE) COLON CANCER SCREENING ANNUAL FOBT 06/11/2016 06/12/2015, 0 06/12/2015 HEMOGLOBIN A1C 09/27/2016 03/30/2016, 01/20/2015 INFLUENZA VACCINE (#1) 2019 Procedures Procedure Name Priority Date/Time Associated Comments Diagnosis PERIPHERAL VASCULAR 02/22/2019 9:22 REPORT - SCAN PM [employer]IC ECHOCARDIOGRAM REPORT - 02/21/2019 9:21 SCAN PM [employer]IGERATION MECH[employer]IC NM MYOCARDIAL PERFUSION Routine 02/21/2019 2:47 Pre-transplan t Results for this SPECT, PHARM(LEXISCAN) PM IND[employer]ERATION MECH[employer]IC evaluation for pro cedure are in ESRD (end stage the results renal disease) section. Essential hypertension Bilateral carotid artery occlusion Diastolic dysfunction, left ventricle TREADMILL Routine 02/21/2019 1:28 Results for this TOLERANCE(NON-NUCLEAR PM IND[employer]AL [employer]IGER[employer] MECH[employer]IC proced ure are in TREADMILL) the results section. ECG 12-LEAD Routine 02/21/2019 1:04 Results for this PM [employer]CH[employer]IC procedure are i n the results section. ECG 12-LEAD Routine 02/21/2019 1:04 PM INDUSTRIAL REFRIGERATION MECH[employer]IC Procedure Note - Interface, External Ris In - 02/21/2019 1:56 PM INDUSTRIAL REFRIGERATION MECH[employer]IC Ventricular Rate 60 BPM Atrial Rate 60 BPM P-R Interval 158 ms QRS Duration 92 ms Q-T Interval 474 ms QTC Calculation(Bazett) 474 ms P [place] 54 degrees R [place] 24 degrees T [place] -74 degrees Normal sinus rhythm Possible Left atrial enlarge ment T wave abnormality, consider inferolateral ischemia Prolonged QT Abnormal ECG ECG 12-LEAD Routine 02/21/2019 1:03 PM IND[employer]RIAL RE[employer]IGERATION MECH[employer]IC Resu lts for this procedure are in the results section . ECG 12-LEAD Routine 02/21/2019 1:03 PM IND[employer]RIAL RE[employer]IGERATION MECH[employer]IC Procedure Note - Interface, External Ris In - 02/21/2019 1:56 PM INDUSTRIAL RE[employer]IGERATION MECH[employer]IC Ventricular Rate 61 BPM Atrial Rate 61 BPM P-R Interval 156 ms QRS Duration 100 ms Q-T Interval 478 ms QTC Calculation(Bazett) 481 ms P [place] 59 degrees R [place] 33 degrees T [place] -80 degrees Normal sinus rhythm Possible Left atrial enlarge ment T wave abnormality, consider inferolateral ischemia Prolonged QT Abnormal ECG 2D ECHO W/ DOPPLER Routine 02/21/2019 10:02 Pre-transplant britany luation Results for (CW/PW/COLOR) AM IND[employer]IC for ESRD (end stage renal t his procedure disease) are in the Essential hypert ension results Bilateral carotid artery sec tion. occlusion Diastolic dysfunction, left ventricle CAROTID DOPPLER Routine 02/21/2019 9:30 Pre-transplant evalua tion Results for BILATERAL AM IND[employer]ER[employer] MECH[employer]IC for ESRD (end stage renal th is procedure disease) are in the Essential hypert ension results Bilateral carotid artery sec tion. occlusion Diastolic dysfunction, left ventricle after 09/29/2018 Results PERIPHERAL VASCULAR REPORT - SCAN (02/22/2019 9:22 PM INDUSTRIAL REFRIGERATION MECH[employer]IC) Narrative Performed At This result has an attachment that is no t available. ECHOCARDIOGRAM REPORT - SCAN (02/21/2019 9:21 PM INDUSTRIAL REFRIGERATION MECHANIC) Narrative Performed At This result has an attachment that is no t available. NM myocardial perfusion SPECT,pharm(Lexiscan) (02/21/2019 2:47 PM INDUSTRIAL REFRIGERATION MECHANIC) Specimen Narrative Performed At FINAL REPORT [facility] PROCEDURE: MYOCARDIAL PERFUSION SPECT IM AGING (Rest/Stress) CPT CODE: 51650 INDICATION: Renal transplant evaluation, hypertension, shortness of breath CARDIOVASCULAR PROFILE: CAD History: Known CAD Symptoms: Shortness of breath Risk Factors: Diabetes, hypertension, dy slipidemia, tobacco use, early family history CAD BMI: 27.9 Medications: Hydralazine, clonidine, Cor eg, pravastatin, lisinopril STRESS PROTOCOL: Pharmacologic stress was achieved with a 10-second intravenous infusion of regadenoson 0.4 mg. The radi opharmaceutical was administered 30 seconds after the start of the regadenoson infusion. IMAGING PROTOCOL: 10.2 mCi of Tc-99m sestamibi was injecte d intravenously at rest, and non-gated SPECT images were obtained. Th en, 32.7 mCi of Tc-99m sestamibi was injected intravenously at peak stress, and gated SPECT images were obtained. Image quality is g ood. REST FINDINGS: HR: 60/min BP: 171/70 mmHg Prelim. EKG: Normal sinus rhythm. Perfusion: Mild inferior wall perfusion defect. LV Volume: Normal. RV Volume: Normal. STRESS FINDINGS: HR: 65/min (65% of MPHR) BP: 154/38 mmHg Prelim. EKG: No ischemic changes. Symptoms: Dyspnea, nausea and vomiting, headache, flushing, dry mouth (treatment not required). Perfusion: Mild, fixed inferior wall per fusion defect. Wall Motion: Normal LV Volume: Not significantly changed fro m rest. IMPRESSION: 1. Abnormal study. 2. Abnormal myocardial perfusion. Mild, fixed inferior wall perfusion defect. 3. Normal stress LVEF. 4. Normal extracardiac tracer distributi on. 5. There is no prior study for compariso n. Signed: Jefferson Darnell MD Report Verified Date/Time:02/21/2019 15:54:30 Reading Location: [address] Reading Room Procedure Note Interface, External Ris In - 02/21/2019 3:56 PM INDUSTRIAL RE[employer]IGERATION MECH[employer]IC FINAL REPORT PROCEDURE: MYOCARDIAL PERFUSION SPECT IM AGING (Rest/Stress) CPT CODE: 41178 INDICATION: Renal transplant evaluation, hypertension, shortness of breath CARDIOVASCULAR PROFILE: CAD History: Known CAD Symptoms: Shortness of breath Risk Factors: Diabetes, hypertension, dy slipidemia, tobacco use, early family history CAD BMI: 27.9 Medications: Hydralazine, clonidine, Cor eg, pravastatin, lisinopril STRESS PROTOCOL: Pharmacologic stress was achieved with a 10-second intravenous infusion of regadenoson 0.4 mg. The radi opharmaceutical was administered 30 seconds after the start of the regadenoson infusion. IMAGING PROTOCOL: 10.2 mCi of Tc-99m sestamibi was injecte d intravenously at rest, and non-gated SPECT images were obtained. Th en, 32.7 mCi of Tc-99m sestamibi was injected intravenously at peak stress, and gated SPECT images were obtained. Image quality is g ood. REST FINDINGS: HR: 60/min BP: 171/70 mmHg Prelim. EKG: Normal sinus rhythm. Perfusion: Mild inferior wall perfusion defect. LV Volume: Normal. RV Volume: Normal. STRESS FINDINGS: HR: 65/min (65% of MPHR) BP: 154/38 mmHg Prelim. EKG: No ischemic changes. Symptoms: Dyspnea, nausea and vomiting, headache, flushing, dry mouth (treatment not required). Perfusion: Mild, fixed inferior wall per fusion defect. Wall Motion: Normal LV Volume: Not significantly changed fro m rest. IMPRESSION: 1. Abnormal study. 2. Abnormal myocardial perfusion. Mild, fixed inferior wall perfusion defect. 3. Normal stress LVEF. 4. Normal extracardiac tracer distributi on. 5. There is no prior study for compariso n. Signed: Jefferson Darnell MD Report Verified Date/Time: 02/21/2019 1 5:54:30 Reading Location: [address] Reading Room Performing Organization Address City/State/Zipcode Phone Number [employer] Treadmill tolerance(Non-Nuclear Treadmill) (02/21/2019 1:28 PM INDUSTRIAL REFRIGERATION MECHANIC) Specimen Narrative Performed At Protocol Name CM [place] Time In Exercise Phase 00:01:00 Max. Systolic BP 154 mmHg Max Diastolic BP 38 mmHg Max Heart Rate 65 BPM Max Predicted Heart Rate 159 BPM Reason For Termination Predetermined end point Reason for Test RENAL TRANSPLANT EVAL Target HR Formula (220 - Age)*100% Arrhythmias none Resting ECG Normal sinus rhythm ST Changes Inferior Lateral ST Depressio n ST Depression 1mm Overall Impression Abnormal stress ECG Chest Pain 6/10 HR Response To Exercise BP Response To Exercise Hydralazine, Clonidine, Coreg, Pravastatin, Lisinopri Confirmed by fellow Dario Helton ([id number] ) on 02/21/2019 2:42:47 PM Confirmed by MD GONZALEZ JORGE ([id number]) on 03/18/2019 12: 21:22 PM Procedure Note Interface, External Ris In - 03/18/2019 12:21 PM INDUSTRIAL RE[employer]IGERATION MECH[employer]IC Protocol Name CM Time In Exercise Phase 00:01:00 Max. Systolic BP 154 mmHg Max Diastolic BP 38 mmHg Max Heart Rate 65 BPM Max Predicted Heart Rate 159 BPM Reason For Termination Predetermined end point Reason for Test RENAL TRANSPLANT EVAL Target HR Formula (220 - Age)*100% Arrhythmias none Resting ECG Normal sinus rhythm ST Changes Inferior Lateral ST Depressio n ST Depression 1mm Overall Impression Abnormal stress ECG Chest Pain 6/10 HR Response To Exercise BP Response To Exercise Hydralazine, Clonidine, Coreg, Pravastatin, Lisinopri Confirmed by fellow Dario Helton ([id number] ) on 02/21/2019 2:42:47 PM Confirmed by MD GONZALEZ JORGE ([id number]) on 03/18/2019 12:21:22 PM Performing Organization Address City/State/[facility] Phone Number GE MUSE ECG 12 lead (02/21/2019 1:04 PM INDUSTRIAL REFRIGERATION MECHANIC)Only the most recent of2 resultswithin the time period is included. Specimen Narrative Performed At Ventricular Rate 60 BPM GE MUSE Atrial Rate 60 BPM P-R Interval 158 ms QRS Duration 92 ms Q-T Interval 474 ms QTC Calculation(Bazett) 474 ms P [place] 54 degrees R [place] 24 degrees T [place] -74 degrees Normal sinus rhythm Left atrial enlargement T wave abnormality, consider inferolater al ischemia Prolonged QT Abnormal ECG Confirmed by MD Lyons Roberto ([id number]) on 02/03 2:27:14 PM Procedure Note Interface, External Ris In - 02/21/2019 2:27 PM INDUSTRIAL REFRIGERATION MECHANIC Ventricular Rate 60 BPM Atrial Rate 60 BPM P-R Interval 158 ms QRS Duration 92 ms Q-T Interval 474 ms QTC Calculation(Bazett) 474 ms P [place] 54 degrees R [place] 24 degrees T [place] -74 degrees Normal sinus rhythm Left atrial enlargement T wave abnormality, consider inferolater al ischemia Prolonged QT Abnormal ECG Confirmed by MD Lyons Roberto ([id number]) on 02/21/2019 2:27:14 PM Performing Organization Address [facility]/State[facility] Phone Number [employer] MUSE 2D Echo W/Doppler(CW/PW/Color) (02/21/2019 10:02 AM INDUSTRIAL REFRIGERATION MECHANIC) Ejection Fraction SLEH ECHO HEAR TLAB MKCKESSON CPACS Specimen Narrative Performed At Transthoracic Echocardiography Report (T TE) [facility] ECHO HEARTLAB MKCKESSON [facility] Demographics Patient Name Maury URBANO of Study 02/21/2019 SHO [id number] Gender Male Visit Number [id number] Marissa sy [id number] Room Number Number Date of Birth1955 Referring Physician Emilio Black MD Age63 year(s) Partner Cco Dariel Patel [facility] InterpretingBry issa MD Physician Procedure Type of Study TTE procedure:2DECHO W DOPPLER(CW/PW/COLOR) (Routine) Indications:Pre-surgical evaluation of organ transplant. Clinical History AOV CALCIFICATION DM ESRD HLD HEPATITIS C PNEUMONIA Height: 66 inches Weight: 74.84 kg (165 lbs) BSA: 1.84 m^2 BMI: 26.63 kg/m^2 HR: 65 bpm BP: 177/74 mmHg Summary 1. The left ventricle is chamber size (by vol index) is mildly enlarged. No evidence of LV hypertrophy. All of the LV segments contract normally. LVEF by Jhaveri's method of disk assessment is normal (>60%). Grade 1 diastolic dysfunction (impaired relaxation and low-normal LA pressure). LA size is moderately enlarged (42-48 ml/m 2) . 2. The right ventricular chamber size and systolic function are within normal limits. RA size is normal. Unable to estimate peak systolic PA pressure; inadequate TR velocity signal . 3. Bicuspid aortic valve with fusion of right and left coronary cusps. There is mild to moderate calcification of the cusp. Mild aortic regurgitation. AoV area at rest by continuity equation is in the range of 1.72 cm2. Previous Study In comparison with the prior exam on 03/30/2016 there are no significant changes. Signature Findings Technical Quality: Technically adequate exam. Left Ventricle The left ventricle is chamber size (by vol index) is mildly enlarged (male - LVED 75-89ml/m2) . No ev idence of LV hypertrophy. All of the LV segments co ntract normally . Global LV systolic fun ction no rmal . LVEF by Jhaveri's method of disk as sessment is normal (>60%) . Grade 1 lr tolic dy sfunction (impaired relaxation and low-n ormal LA pr essure). Left AtriumLA size is moderately enlarged (42-48 ml/m2) . Right VentricleThe right ventricular chamber size and systolic fu nction are within normal limits. Right Atrium RA size is normal. Aortic Valve Bicuspid aortic valve with fusion of right and left co ronary cusps. There is mild to moderate ca lcification of the cusp. Mild aortic re gurgitation. Ao V area at rest by continuity equation is in the ra nge of 1.72 cm2. Mitral Valve Mild MV leaflet thickening. Tr rui mitral regurgitation. Tricuspid ValveTV structure is normal. A trace of tricuspid regurgitation. Un able to estimate peak systolic PA pressu re; in adequate TR velocity signal. Pulmonic Valve Normal PV structure and function by limited views an d Doppler. AortaAortic root size (SInus of Valsalva diameter) i s no rmal. Proximal ascending aorta size norm al . 3.6 cm PericardiumNo pericardial effusion is visualized. IVC/SVC/PA/PV/PleuralThe estimated RA pressure by IVC dynamics 5-10mmHg . Chambers/Structures Left Atrium LA Volume: 82.04 ml LA Area: 22.92 cm^2 LA Vol. Index: 45 ml/m^2 Left Ventricle LVIDd: 5.03 cm LV Septum Diastolic: 1.03 cm LV Septum Systolic: 1.4 cm LV PW Diastolic: 1.02 cm LV PW Systolic: 1.46 cm LVEDV Jhaveri's:148.09 ml LVEDVI: 80 ml/m^2 LVESV Jhaveri's:47.32 mlLVESVI: 26 ml/m^2 LVEF Jhaveri's: 68 % LVOT Diameter: 2.44 cm Aorta Ao Root S of Phyllis.: 3.73 cmAscending Aorta: 3.02 cm Doppler/Quantitative Measurements Mitral Valve MV Peak E-Wave: 0.85 m/sMV Peak A-Wave: 1.23 m/s E/A Ratio: 0. 69 Peak Gradient: 2.87 mmHg Deceleration Time: 302.9 msec MV Jordin. Peak: Tissue Doppler E' Lateral Velocity: 0.07 m/s E/E': 12 Aortic Valve Peak Velocity: 1.91 m/sMean Velocity: 1.24 m/s Peak Gradient: 14.57 mmHgMean Gradient: 7.06 mmHg AV Area (continuity): 1.74 cm^2 AV VTI: 53.04 cm AV DVI: 0.37 LVOT Peak Velocity: 0.83 m/s Peak Gradient: 2.76 mmHg Mean Velocity: 0.51 m/s Mean Gradient: 1.26 mmHg LVOT Diameter: 2.44 cmLVOT VTI: 19.71 cm LVOT Area: 4.68 cm^2LVOT SV:92.12 ml LVOT CO: 5.99 l/min LVOT CI: 3.26 l/min/m^2 Procedure Note Interface, External Ris In - 02/21/2019 12:49 PM INDUSTRIAL REFRIGERATION MECHANIC Transthoracic Echocardiography Report (TTE) Demographics Patient Name FIDEL URBANO Date of Study 02/21/2019 SHO Gende r Male Visit Number [id number] Race Other Room Number Number Date of 1955 Refer ring Physician Emilio Black MD Age 63 year(s) Sonog paramjit [facility] Falguni Patel RDCS [facility] Bry Pendleton MD Physi joshua Procedure Type of Study TTE procedure:2DECHO W DOPPLE R(CW/PW/COLOR) (Routine) Indications:Pre-surgical evaluation of o rgan transplant. Clinical History AOV CALCIFICATION DM ESRD HLD HEPATITIS C PNEUMONIA Height: 66 inches Weight: 74.84 kg (165 lbs) BSA: 1.84 m^2 BMI: 26.63 kg/m^2 HR: 65 bpm BP: 177/74 mmHg Summary 1. The left ventricle is chamber size ( by vol index) is mildly enlarged. No evidence of LV hypertrophy. All of t he LV segments contract normally. LVEF by Jhaveri's method of disk assess ment is normal (>60%). Grade 1 diastolic dysfunction (impaired relaxat ion and low-normal LA pressure). LA size is moderately enlarged (42-48 ml/m 2) . 2. The right ventricular chamber size a nd systolic function are within normal limits. RA size is normal. Unabl e to estimate peak systolic PA pressure; inadequate TR velocity signal . 3. Bicuspid aortic valve with fusion of right and left coronary cusps. There is mild to moderate calcification of the cusp. Mild aortic regurgitation. AoV area at rest by cont inuity equation is in the range of 1.72 cm2. Previous Study In comparison with the prior exam on there are no significant changes. Signature Findings Technical Quality: Technically adequate exam. Left Ventricle The left ventric le is chamber size (by vol index) is mildly enlarg ed (male - LVED 75-89ml/m2). No evidence of LV h ypertrophy. All of the LV segments contract normall y . Global LV systolic function normal . LVEF by Jhaveri's method of disk assessment is no rmal (>60%) . Grade 1 diastolic dysfunction (imp aired relaxation and low-normal LA pressure). Left Atrium LA size is moder ately enlarged (42-48 ml/m2) . Right Ventricle The right ventri cular chamber size and systolic function are wit hin normal limits. Right Atrium RA size is liya l. Aortic Valve Bicuspid aortic valve with fusion of right and left coronary cusps. There is mild to moderate calcification of the cusp. Mild aortic regurgitation. AoV area at rest by continuity equation is in the range of 1.72 cm 2. Mitral Valve Mild MV leaflet thickening. Trace mitral reg urgitation. Tricuspid Valve TV structure is normal. A trace of tricu spid regurgitation. Unable to estima te peak systolic PA pressure; inadequate TR ve locity signal. Pulmonic Valve Normal PV struct ure and function by limited views and Doppler. Aorta Aortic root size (SInus of Valsalva diameter) is normal. Proximal ascending aorta size normal . 3.6 cm Pericardium No pericardial e ffusion is visualized. IVC/SVC/PA/PV/Pleural The estimated RA pressure by IVC dynamics 5-10mmHg . Chambers/Structures Left Atrium LA Volume: 82.04 ml LA Area: 22.92 cm^2 LA Vol. Index: 45 ml/m^2 Left Ventricle LVIDd: 5.03 cm LV Septum Diastolic: 1.03 cm LV Septum Systolic: 1.4 cm LV PW Diastolic: 1.02 cm LV PW Systolic: 1.46 cm LVEDV Jhaveri's:148.09 ml LVEDVI: 80 ml/m^2 LVESV Jhaveri's:47.32 ml LVESVI: 26 ml/m^2 LVEF Jhaveri's: 68 % LVOT Diameter: 2.44 cm Aorta Ao Root S of Phyllis.: 3.73 cm Ascending Aorta: 3.02 cm Doppler/Quantitative Measurements Mitral Valve MV Peak E-Wave: 0.85 m/s M V Peak A-Wave: 1.23 m/s E /A Ratio: 0.69 P eak Gradient: 2.87 mmHg D eceleration Time: 302.9 msec MV Jordin. Peak: Tissue Doppler E' Lateral Velocity: 0.07 m/s E /E': 12 Aortic Valve Peak Velocity: 1.91 m/s Mean Velocity: 1.24 m/s Peak Gradient: 14.57 mmHg Mean Gradient: 7.06 mmHg AV Area (continuity): 1.74 cm^2 AV VTI: 53.04 cm AV DVI: 0.37 LVOT Peak Velocity: 0.83 m/s Pea k Gradient: 2.76 mmHg Mean Velocity: 0.51 m/s Jeri n Gradient: 1.26 mmHg LVOT Diameter: 2.44 cm LVO T VTI: 19.71 cm LVOT Area: 4.68 cm^2 LVO T SV:92.12 ml LVOT CO: 5.99 l/min LVO T CI: 3.26 l/min/m^2 Performing Organization Address City/State/Zipcode Phone Number [facility] Carotid doppler bilateral (02/21/2019 9:30 AM 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 There is <50% diameter reduction (approximately 21% by 2-D measurement) in the internal carotid artery with a peak velocity of 116/21 cm/sec and heterogeneous plaque. 2. There is no stenosis in the external carotid artery. 3. There is non-occluding plaque in the common carotid artery. 4. The vertebral artery flow is antegrad e . 5. The subclavian artery is within normal limits where visualized. Left Impression 1. There is 50% or greater diameter reduction (approximately 40% by 2-D measurement) in the internal carotid artery with a peak velocity of 192/52 cm/sec and heterogeneous plaque. 2. Technically difficult to measure plaque due to calcification however velocity measurements suggest a 50-69% diameter reduction. 3. There is no stenosis in the external carotid artery. 3. There is non-occluding plaque in the common carotid artery. 4. The vertebral artery flow is antegrad e . 5. The subclavian artery is within normal limits where visualized. Conclusions Summary Carotid duplex scanning and color flow imaging were performed bilaterally. The arteries were adequately visualized. The right internal carotid artery had <50% hemodynamically insignificant stenosis (approximately 21% by 2-D measurement) with heterogeneous plaque. The left internal carotid artery had 50% or greater diameter reduction with calcified plaque. The velocity measurement indicates a 50-69% diameter reduction. The vertebral artery flow was antegrade bilaterally. Signature Velocities are measured in cm/s ; Diameters are measured in cm Carotid Right Measurements + +----+----+-----+ +---- + + !Location !PSV !EDV !Angle!%Stenosis 2D!%Stenosis Doppler!Tortuosity ! + +----+----+-----+ +---- + + !Prox CCA !83.8!16.4!60 !! ! ! + +----+----+-----+ +---- + + !Dist CCA !94.4!21.1!60 !! ! ! + +----+----+-----+ +---- + + !Prox ICA !116 !21.2!60 !% !<50% ! ! + +----+----+-----+ +---- + + !Dist ICA !154 !36.9!36 !! ! ! + +----+----+-----+ +---- + + !Prox ECA !219 !48.5!60 !! ! ! + +----+----+-----+ +---- + + !Vertebral!45.1!12.3!48 !! ! ! + +----+----+-----+ +---- + + !Prox Subclavian!145 !21.5!48 !! ! ! + +----+----+-----+ +---- + + - There is antegrade vertebral flow noted on the right side. - Additional Measurements:ICAPSV/CCAPSV 1.63.ICAEDV/CCAEDV 2.25. Carotid Left Measurements + +----+----+-----+ +---- + + !Location !PSV !EDV !Angle!%Stenosis 2D!%Stenosis Doppler!Tortuosity ! + +----+----+-----+ +---- + + !Prox CCA !96.1!17.6!48 !! ! ! + +----+----+-----+ +---- + + !Dist CCA !126 !26.5!60 !! ! ! + +----+----+-----+ +---- + + !Prox ICA !191 !55!60 !40% !50-69% ! ! + +----+----+-----+ +---- + + !Dist ICA !128 !39.3!60 !! ! ! + +----+----+-----+ +---- + + !Prox ECA !165 !33.4!60 !! ! ! + +----+----+-----+ +---- + + !Vertebral!48.3!16.1!60 !! ! ! + +----+----+-----+ +---- + + !Prox Subclavian!170 !54.8!48 !! ! ! + +----+----+-----+ +---- + + - There is antegrade vertebral flow noted on the left side. - Additional Measurements:ICAPSV/CCAPSV 1.52.ICAEDV/CCAEDV 3.12. Narrative Performed At [facility] - Carotid Duplex Study [facility] Demographics Patient Name Maury URBANO of Study02/21/2019 ULYSSES STEWART [id number] Visit Number [id number] Gender Male Accession Number [id number] Date of Birth1955 Jason Black MD Room Number Physician SonographerKatelyn Morejon Interpreting Savanah Vegas RN, Kelli CABALLERO Procedure Type of Study: Cerebral: Carotid, CAROTID DOPPLER, NOHEMI ATERAL. Indications for Study:Pre-op for renal t ransplant. Patient Status:Routine. Study Location:Vascular Lab. Technical Quality:Adequate visualization . Risk Factors History of Disease +---------+----+ + !Diagnosis!Date!Comments ! +---------+----+ + !Other!!Former Smoker, Chronic HEP-C, ESRD, HTN, DM! +---------+----+ + !Other!!Left Arm AVF ! 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 Indications for Study:Pre-op for renal t ransplant. Patient Status:Routine. Study Location:Vascular Lab. Technical Quality:Adequate visualization . Risk Factors History of Disease +---------+----+ + !Diagnosis!Date!Comments ! +---------+----+ + !Other ! !Former Smoker, Chronic H EP-C, ESRD, HTN, DM ! +---------+----+ + !Other ! !Left Arm AVF ! +---------+----+ + Impressions Right Impression 1. There is <50% diameter reduction (yon roximately 21% by 2-D measurement) in the internal carotid artery with a pe ak velocity of 116/21 cm/sec and heterogeneous plaque. 2. There is no stenosis in the external carotid artery. 3. There is non-occluding plaque in the common carotid artery. 4. The vertebral artery flow is antegrad e . 5. The subclavian artery is within liya l limits where visualized. Left Impression 1. There is 50% or greater diameter redu ction (approximately 40% by 2-D measurement) in the internal carotid art [place] with a peak velocity of 192/52 cm/sec and heterogeneous plaque. 2. Technically difficult to measure plaq ue due to calcification however velocity measurements suggest a 50-69% d iameter reduction. 3. There is no stenosis in the external carotid artery. 3. There is non-occluding plaque in the common carotid artery. 4. The vertebral artery flow is antegrad e . 5. The subclavian artery is within liya l limits where visualized. Conclusions Summary Carotid duplex scanning and color flow imaging were performed bilaterally. The arteries were adequately visualized . The right internal carotid artery had <50% hemodynamically insignificant stenosis (approximately 21% by 2-D measurement) with heterogeneous plaque. The left internal carotid artery had 50% or greater diameter reduction w ith calcified plaque. The velocity measurement indicates a 50-69% diameter reduction. The vertebral artery flow was antegrade bilaterally. Signature Velocities are measured in cm/s ; Diamet ers are measured in cm Carotid Right Measurements + +----+----+-----+------- -----+ + + !Location !PSV !EDV !Angle!%Stenos is 2D!%Stenosis Doppler!Tortuosity ! + +----+----+-----+------- -----+ + + !Prox CCA !83.8!16.4!60 ! ! ! ! + +----+----+-----+------- -----+ + + !Dist CCA !94.4!21.1!60 ! ! ! ! + +----+----+-----+------- -----+ + + !Prox ICA !116 !21.2!60 !% !<50% ! ! + +----+----+-----+------- -----+ + + !Dist ICA !154 !36.9!36 ! ! ! ! + +----+----+-----+------- -----+ + + !Prox ECA !219 !48.5!60 ! ! ! ! + +----+----+-----+------- -----+ + + !Vertebral !45.1!12.3!48 ! ! ! ! + +----+----+-----+------- -----+ + + !Prox Subclavian!145 !21.5!48 ! ! ! ! + +----+----+-----+------- -----+ + + - There is antegrade vertebral flow no svetlana on the right side. - Additional Measurements:ICAPSV/CCAPS V 1.63.ICAEDV/CCAEDV 2.25. Carotid Left Measurements + +----+----+-----+------- -----+ + + !Location !PSV !EDV !Angle!%Stenos is 2D!%Stenosis Doppler!Tortuosity ! + +----+----+-----+------- -----+ + + !Prox CCA !96.1!17.6!48 ! ! ! ! + +----+----+-----+------- -----+ + + !Dist CCA !126 !26.5!60 ! ! ! ! + +----+----+-----+------- -----+ + + !Prox ICA !191 !55 !60 !40% !50-69% ! ! + +----+----+-----+------- -----+ + + !Dist ICA !128 !39.3!60 ! ! ! ! + +----+----+-----+------- -----+ + + !Prox ECA !165 !33.4!60 ! ! ! ! + +----+----+-----+------- -----+ + + !Vertebral !48.3!16.1!60 ! ! ! ! + +----+----+-----+------- -----+ + + !Prox Subclavian!170 !54.8!48 ! ! ! ! + +----+----+-----+------- -----+ + + - There is antegrade vertebral flow no svetlana on the left side. - Additional Measurements:ICAPSV/CCAPS V 1.52.ICAEDV/CCAEDV 3.12. Performing Organization Address City/State/Zipcode Phone Number [facility] after 09/29/2018 Insurance Payer Benefit Plan / Group Subscriber ID Type Phone A ddress [employer] NON-UNITED MCR xxxxxxxxx Transplants [facility] - MEDICARE MGD REPL CARE [employer] HMO ALL xxxxxxxxx Maps Contracted [employer] MEDICARE MGD [employer] MAPS xxxxxxxxx CARE (Home) [place] [address] Advance Directives For more information, please contact:[address] [phone] Code Status Date Activated Date Inactivated Comments Full Code 03/30/2016 2:10 AM 04/11/2016 8:24 PM This code status was determined by: Patient Full Code 03/31/2015 10:13 AM 04/01/2015 12:55 AM This code status was determined by: Patient
--- OUTSIDE RECORDS SUMMARY | 2019-09-30 21:39 | XMS REPORT | Continuity of Care Document ---
:1955 Author Organization [facility] t Address [address] [place] [address] Care Team Providers Name Role Phone Moiz Montoya MD Primary Care Physician Minnie LEIVA Attending Clinician Unavailable Elvis Attending Clinician Unavailable Christianne BOYD Attending Clinician Unavailable Moiz Montoya MD Attending Clinician Emilio CABALLERO Attending Clinician SALENA RUSSELL Attending Clinician Unavailable SWETHA PISANO Attending Clinician Unavailable LEANA KHALIL Attending Clinician Unavailable INGRIS DANIELSON Attending Clinician Unavailable ESMER KERN Attending Clinician Unavailable THEODORE WEIR Admitting Clinician Unavailable Payers Payer Name Policy Policy Effective Expiration Source Type Number Date Date [facility] - xxxxxxxxx [facility] MEDICARE MGD CAREOPTUM [facility] NON-[facility] Medical REPLxxxxxxxxxTransplants Center TEX[facility]USTEXAN[facility]US [facility] xxxxxxxxx I St ALLxxxxxxxxxMaps Contracted [facility] WELLCARE MEDICARE MGD [facility] Problems Condition Condition Condition Status Onset Resolution Last Treating Co mments Source Name Details Category Date Date Treatment Clinician Date Arterioven Arterioven Problem Active [facility] ous shunt ous Shunt 09-01 Fami ly in situ in Situ 00:00: Practic 00 e Hypertensi Hypertensi Problem Active [facility] ve heart ve Heart -19 Family AND renal and Renal 00:00: Prac tic disease Disease 00 e Diabetic Diabetic Problem Active Dorsey ge neuropathy Neuropathy 5-18 Fa alexia 00:00: Practic 00 e Overweight Overweight Problem Active [facility] 5-18 Family 00:00: Practic 00 e Body mass Body Mass Problem Active Milo tiffanie index Index 5-18 Family 25-29 - 25-29 - 00:00: Practic overweight Overweight 00 e Iron Iron Problem Active [facility] deficiency Deficiency 5-18 Fa alexia anemia Anemia 00:00: Practic 00 e Insomnia Insomnia Problem Active Dorsey ge 5-18 Family 00:00: Practic 00 e Itching of Itching of Problem Active [facility] eye Eye 5-18 Family 00:00: Practic 00 e Constipati Constipati Problem Active [facility] on on 5-18 Family 00:00: Practic 00 e End stage End Stage Problem Active Milo tiffanie renal Renal 5-18 Family failure on Failure on 00:00: Pr actic dialysis Dialysis 00 e Hyperparat Hyperparat Problem Active [facility] hyroidism hyroidism -18 Fami ly due to Due to 00:00: Practic renal Renal 00 e insufficie Insufficie ncy ncy Osteoarthr Osteoarthr Problem Active [facility] itis itis 5-18 Family 00:00: Practic 00 e Low back Low Back Problem Active Dorsey ge pain Pain 5-18 Family 00:00: Practic 00 e Type 2 Type 2 Problem Active [facility] diabetes Diabetes 5-18 Family mellitus Mellitus 00:00: Practi c with with 00 e multiple Multiple complicati Complicati ons ons Chronic Chronic Problem Active [facility] hepatitis Hepatitis 07 Fami ly C C 00:00: Practic 00 e 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 Renal -07 Family disease Disease 00:00: Practic 00 e Acute Acute Disease Active [facility] respirator respirator 04-03 Lucia kes - y failure y failure 00:00: Medi nataly with with 00 Center hypoxia hypoxia Pneumonia, Pneumonia, Disease Active [facility] unspecifie unspecifie 04-03 Lucia kes - d organism d organism 00:00: Me dical 00 Center Uncontroll Uncontroll Disease Active [facility] ed ed 04-03 [facility] hypertensi hypertensi 00:00: Me dical on on 00 Center Cranial Cranial Disease Active [facility] neuropathi neuropathi 04-02 Lucia kes - es, es, 00:00: Medical multiple multiple 00 Center Diplopia Diplopia Disease Active [facility] 03[facility]29 [facility] - 00:00: Medical 00 Center Hypertensi Hypertensi Disease Active [facility] on on 03-29 [facility] - 00:00: Medical 00 Center Type 2 Type [address] [facility] diabetes diabetes 03-29 [facility] - mellitus mellitus 00:00: Medica l with renal with renal 00 Ce nter complicati complicati on on Chronic Chronic Disease Active [facility] hepatitis hepatitis 5-19 Assessguillaume Moreno ukes - C virus C virus 00:00: t & Plan: Medic al infection infection 00 Lab Cent er studies confirm that he has hepatitis C. Genotype is unknown and he is treatment -naive. Review of his labs and imaging suggest that he does not have advanced liver disease. Decision to treat will be based on his genotype. Zepatier has been approved for treatment of GT 1 and 4 HCV in patients with ESRD/HD. Will check genotype and NS5A reflex resistanc e testing today. Will obtain liver biopsy for our review. No further imaging needed at this time. Immunity Immunity Disease Active [facility] S t status status 5-19 Assessguillaume Muñiz - testing testing 00:00: t & Plan: Medic al 00 CDC Center recommend s that all patients with chronic liver disease, regardles s of etiology, should be immunized to prevent hepatitis A and hepatitis B if they are not already immune. This should be done in addition to other age-appro priate vaccines. He is not immune to hepatitis B- the complete hepatitis B vaccinati on series is recommend ed. Unknown immunity to hepatitis A- will test for immunity today. 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 He is listed for renal transplan t. He does not have findings consisten t with advanced liver disease- no indicatio n for dual organ transplan t at this time. He continues to follow with nephrolog y. Metabolic Metabolic Disease Active Last [facility] syndrome syndrome 5-19 Assessmen Susei es - 00:00: t & Plan: Medical 00 With T2DM Center and hypertens ion, he meets criteria for metabolic syndrome. Managemen t per his PCP. Allergies, Adverse Reactions, Alerts Allergy Allergy Status Severity Reaction(s) Onset Inactive Treating Comm ents Source Name Type Date Date Clinician Crab Drug Active Itching Itching [facility] Allergy - in mouth, [facility] - 00:00: [facility] Medical 00 okay with Center shrimp/cr awfish Social History Social Habit Start Date Stop Date Quantity Comments Source Sex Assigned At [facility] Alcohol Comment 2015-07-23 2015-07-23 Quit drinking [facility] - 00:00:00 00:00:00 2005; social Medical [facility] er drinker Tobacco Comment 2015-03-31 2015-03-31 Quit 2006 [facility] - 00:00:00 00:00:00 [facility] Smoking Status Start Date Stop Date Source Light Tobacco Smoker [facility] Practice Former smoker 2018-06-05 00:00:00 2018-06-05 00:00:00 [facility] Medications Ordered Filled Start Stop Current Ordering Indication Dosage Frequency Signature Comments Components Source Medication Medication Date Date Medication? Clinician (SIG) Name Name aspirin 81 Yes 81mg QD Take [address] MG EC -02 by mouth [facility] - tablet 10:20: daily. Medical 33 [place] amLODIPine Yes 10mg Take [address] (NORVASC) 402 by mouth. [facility] - 10 MG 10:19: Medical tablet 56 [place] lactulose Yes TAKE 20 [facility] (CHRONULAC) 3-26 GRAM [facility] - 10 gram/15 00:00: (30ML) BY Or dical mL solution 00 MOUTH ONCE Ce nter A DAY NEEDED zolpidem Yes TAKE [address] (AMBIEN) 10 2-21 TABLET [facility] - mg tablet 00:00: ORALLY AT Med ical 00 BEDTIME Center NEEDED clopidogrel 2017-03 Yes 75mg QD Take [address] (PLAVIX) 75 06 by mouth Luke s - mg tablet 15:17: daily. Medica l 31 [place] gabapentin 2017-03 Yes 100mg Q.5D Take [address] (NEURONTIN) 1-06 mg by [facility] - 300 MG 15:14: mouth 2 Medical capsule 37 (two) Center times daily . atorvastati 2017-0 Yes 20mg Take [address] n (LIPITOR) 4-26 by mouth. Susie es - 20 MG 00:00: Medical tablet 00 Center hydrALAZINE 2016-0 Yes 50mg Q.[id number] Take [address] (APRESOLINE 2-06 [id number] tablets [facility] - ) 25 MG 00:00: 3D (50 mg Medical tablet 00 total) by Center mouth 3 (three) times daily. pantoprazol Yes 40mg QD Take [address] e 2-06 tablet (40 [facility] - (PROTONIX) 00:00: mg total) Me dical 40 MG 00 by mouth Center tablet daily. cloNIDine 2015- Yes .2mg Q.5D Take 0.[address] HCl 3-10 mg by [facility] - (CATAPRES) 14:06: mouth 2 Medi nataly 0.2 MG 28 (two) Center tablet times daily . tiZANidine 0 Yes 4mg Q.5D Take [address] (ZANAFLEX) 1-26 by mouth 2 Susie es - 4 MG tablet 13:32: (two) Medic al 46 times Center daily. HYDROcodone Yes 1{tbl} Take [address] -acetaminop 1-26 tablet by Susie es - hen (NORCO 13:32: mouth Medica l 10-325) 45 every 6 Center 10-325 mg (six) per tablet hours as needed for Pain. Aspir-81 mg Aspir-81 mg No 1 Q1D Aspir-81 [place] tablet,divina tablet,divina mg F amily yed release yed release tablet,del Practic Take 1 Take 1 ayed e tablet tablet release every day every day Take 1 by oral by oral tablet route. route. every day by oral route. Auryxia 210 Auryxia 210 No 2 TID Auryxia [place] mg iron mg iron 210 mg Family tablet Take tablet Take iron P ractic 2 tablets 3 2 tablets 3 tablet e times a day times a day Take 2 by oral by oral tablets 3 route. route. times a day by oral route. carvedilol carvedilol No 1 BID carvedilol [facility] 6.25 mg 6.25 mg 6.25 mg Family tablet Take tablet Take tablet Practic 1 tablet 1 tablet Take 1 e twice a day twice a day tablet by oral by oral twice a route. route. day by oral route. clonidine clonidine No 1 BID clonidine [facility] HCl 0.2 mg HCl 0.2 mg HCl 0.2 mg Family tablet Take tablet Take tablet Practic 1 tablet 1 tablet Take 1 e twice a day twice a day tablet by oral by oral twice a route. route. day by oral route. gabapentin gabapentin No 1capsul TID gabapentin [facility] 100 mg 100 mg e(s) 100 mg Family capsule capsule capsule Practi c Take 1 Take 1 Take 1 e capsule 3 capsule 3 capsule 3 times a day times a day times a by oral by oral day by route. route. oral route. lactulose lactulose No 15mL Q1D lactulose [facility] 10 gram/15 10 gram/15 10 gram/15 Family mL (15 mL) mL (15 mL) mL (15 mL) Practic oral oral oral e solution solution solution Take 15 mL Take 15 mL Take 15 mL every day every day every day by oral by oral by oral route as route as route as directed. directed. directed. Pelion 10 Pelion 10 No 1 Q4H [place] 10 Milo tiffanie mg-325 mg mg-325 mg mg-325 mg Family tablet Take tablet Take tablet Practic 1 tablet 1 tablet Take 1 e every 4 every 4 tablet hours by hours by every 4 oral route oral route hours by as needed. as needed. oral route as needed. pravastatin pravastatin No 1 Q1D pravastati [facility] 40 mg 40 mg n 40 mg Family tablet Take tablet Take tablet Practic 1 tablet 1 tablet Take 1 e every day every day tablet by oral by oral every day route. route. by oral route. Renvela 800 Renvela 800 No 1 TID Renvela [facility] mg tablet mg tablet 800 mg Fam traci Take 1 Take 1 tablet Practic tablet 3 tablet 3 Take 1 e times a day times a day tablet 3 by oral by oral times a route. route. day by oral route. Sensipar 30 Sensipar 30 No 1 Q1D Sensipar [facility] mg tablet mg tablet 30 mg Fami ly Take 1 Take 1 tablet Practic tablet tablet Take 1 e every day every day tablet by oral by oral every day route. route. by oral route. sildenafil sildenafil No 1 Q1D sildenafil [facility] 100 mg 100 mg 100 mg Family tablet Take tablet Take tablet Practic 1 tablet 1 tablet Take 1 e every day every day tablet by oral by oral every day route. route. by oral route. tizanidine tizanidine No 1 Q6H tizanidine [facility] 4 mg tablet 4 mg tablet 4 mg F amily Take 1 Take 1 tablet Practic tablet tablet Take 1 e every 6 every 6 tablet hours by hours by every 6 oral route oral route hours by as as oral route directed. directed. as directed. zolpidem 10 zolpidem 10 No 1 Q1D zolpidem [place] mg tablet mg tablet 10 mg Fami ly Take 1 Take 1 tablet Practic tablet tablet Take 1 e every day every day tablet by oral by oral every day route at route at by oral bedtime. bedtime. route at bedtime. Immunizations Ordered Immunization Filled Immunization Date Status Commen ts Source Name Name pneumococcal pneumococcal 2019-01-04 Completed [facility] alexia conjugate PCV 13 conjugate PCV 13 00:00:00 Pr actice influenza, influenza, 2019-01-04 Completed [facility] injectable, injectable, 00:00:00 Practice quadrivalent quadrivalent PPD Test 2016-04-03 Completed [facility] - 00:00:00 [facility] Vital Signs Vital Name Observation Time Observation Value Comments Source Height 2019-09-03 00:00:00 66 [in_i] [facility] Height 2019-07-23 00:00:00 66 [in_i] [facility] BMI (Body Mass Index) 2019-07-23 00:00:00 25.8 kg/m2 [facility] Body Weight 2019-07-23 00:00:00 160 [lb_av] [facility] Systolic blood 2019-02-21 13:35:00 140 mm[Hg] [facility] Diastolic blood 2019-02-21 13:35:00 42 mm[Hg] [facility] S [facility] Heart rate 2019-02-21 13:35:00 74 /min [facility] Respiratory rate 2019-02-21 13:35:00 20 /min [facility] Body height 2019-02-21 11:19:00 167.6 cm [facility] Body weight Measured 2019-02-21 11:19:00 74.844 kg [facility] BMI 2019-02-21 11:19:00 26.63 kg/m2 [facility] St Tiffanie kike [facility] Procedures Procedure Date / Time Performing Clinician Source Performed PERIPHERAL VASCULAR REPORT 2019-02-22 21:22:39 Provider, Default IRMA St Muñiz - - SCAN Scanning [facility] ECHOCARDIOGRAM REPORT - 2019-02-21 21:21:31 Provider, Default PATTIE I St Lumaurizio - SCAN Scanning [facility] NM MYOCARDIAL PERFUSION 2019-02-21 14:47:[address] [address] [facility] - SPECT, PHARM(LEXISCAN) Medical C enter TREADMILL 2019-02-21 13:28:08 Unknown, Hl7 Doctor [facility] Tiffanie [facility] - TOLERANCE(NON-NUCLEAR Medical Ce nter TREADMILL) ECG 12-LEAD 2019-02-21 13:04:33 Unknown, Hl7 Doctor [facility] St L kike [facility] ECG 12-LEAD 2019-02-21 13:03:22 Unknown, 7 [facility] [address] L kike [facility] 2D ECHO W/ DOPPLER 2019-02-21 10:02:[address] [facility] (CW/PW/COLOR) [facility] CAROTID DOPPLER BILATERAL 2019-02-21 09:30:00 Wayne Jhaveri I [facility] Plan of Care Planned Activity Planned Date Details Comments Source Future Scheduled Test 2019-11-[address] [facility] - 00:00:00 (#1) [code = [facility] INFLUENZA VACCINE (#1)] Future Scheduled Test 2016-09-[address] [facility] - 00:00:00 measurement [facility] Center (procedure) [code = 91957590] Future Scheduled Test 2016-06-11 [facility] - 00[facility] colon (procedure) [code = 987882165] Future Scheduled Test 2015-03-[address] [facility] - 00:00:00 WELLNESS (YEAR 2 or Medical Center FIRST YEAR if no IPPE) [code = MEDICARE ANNUAL WELLNESS (YEAR 2 or FIRST YEAR if no IPPE)] Future Scheduled Test 1967-08-29 DIABETIC EYE EXAM [facility] - 00:00:00 [code = DIABETIC EYE Medical Center EXAM] Future Scheduled Test 1967-08-29 Diabetic foot [facility] - 00:[facility]:00 examination Medical Center (regime/therapy) [code = 010599777] Future Scheduled Test 1967-08-29 Urine screening for IRMA Sanchez - 00:00:00 protein (procedure) Medical Center [code = 645974175] Future Scheduled Test 1963-08-29 PNEUMOCOCCAL VACCINE IRMA Sanchez - 00:00:00 2-64 YEARS AT RISK (1 Medica l Center of 3 - PCV13) [code = PNEUMOCOCCAL VACCINE 2-64 YEARS AT RISK (1 of 3 - PCV13)] Future Appointment 2019-11-03 Veronica Bigg, [facility] ill[facility] Family 00:00:00 [address]; [address] [place] [id number] Encounters Start End Encounter Admission Attending Care Care Encounter Source Date/Time Date/Time Type Type Clinicians Facility Department ID 2019-09-03 2019-09-03 Veronica [facility] [place] - [id number] V illage 00:00:00 00:00:00 Bigg Rachael elkins 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 2019-07-23 2019-07-23 Veronica [facility] [place] - [id number] V illage 00:00:00 00:00:00 BriseydaPriscilatha Rachael elkins BENCH SHEAR OPERATOR: Medical - Pracjonathan crowley [email or web address], [address] [place] [address], [place] [address] , Ph. Results Test Test Test Results Result Source Description Time Comments Comments Treadmill 2019-03 Interface, External Ris In - [facility] tolerance(Non- -13 03/18/2019 12:21 PM CSTProtocol [facility] - Nuclear 12:21:2 Name REGADENOSON Time In Exercise Medical Treadmill) 7 Phase 00:01:00 Max. Systolic BP Center 154 mmHgMax Diastolic BP 38 mmHgMax Heart Rate 65 BPMMax Predicted Heart Rate 159 BPMReason For Termination Predetermined end point Reason for Test RENAL TRANSPLANT EVAL Target HR Formula (220 - Age)*100% Arrhythmias none Resting ECG Normal sinus rhythm ST Changes Inferior Lateral ST Depression ST Depression 1mmOverall Impression Abnormal stress ECG Chest Pain 6/10 HR Response To Exercise BP Response To Exercise Hydralazine, Clonidine, Coreg,Pravastatin, LisinopriConfirmed by fellow Dario Helton ([id number]) on 02/21/2019 2:42:47 PMConfirmed by MD GONZALEZ JORGE ([id number]) on 03/18/2019 12:21:22 PM Carotid 2019-02 E[address] F[address]SLEH ECHO [facility] doppler -20 [facility] MKCKETHAN [facility] - bilateral 11:08:1 Impression1. There is <50% Medical 8 diameter reduction (approximately Center 21% by 2-D measurement)in the internal carotid artery with a peak velocity of 116/21 cm/sec andheterogeneous plaque.2. There is no stenosis in the external carotid artery.3. There is non-occluding plaque in the common carotid artery.4. The vertebral artery flow is antegrade .5. The subclavian artery is within normal limits where visualized.Left Impression1. There is 50% or greater diameter reduction (approximately 40% by 2-Dmeasurement) in the internal carotid artery with a peak velocity of 192/52cm/sec and heterogeneous plaque.2. Technically difficult to measure plaque due to calcification howevervelocity measurements suggest a 50-69% diameter reduction.3. There is no stenosis in the external carotid artery.3. There is non-occluding plaque in the common carotid artery.4. The vertebral artery flow is antegrade .5. The subclavian artery is within normal limits [...] Diameters are measured in cm Carotid Right Measurements+ +---- +----+-----+ +-------- ---------+ +!Location !PSV !EDV !Angle!%Stenosis 2D!%Stenosis Doppler!Tortuosity !+ +----+----+----- + + +- +!Prox CCA !83.8!16.4!60 ! ! ! !+ +----+----+----- + + +- +!Dist CCA !94.4!21.1!60 ! ! ! !+ +----+----+----- + + +- +!Prox ICA !116 !21.2!60 !% !<50% ! !+ +----+----+----- + + +- +!Dist ICA !154 !36.9!36 ! ! ! !+ +----+----+----- + + +- +!Prox ECA !219 !48.5!60 ! ! ! !+ +----+----+----- + + +- +!Vertebral !45.1!12.3!48 ! ! ! !+ +----+----+----- + + +- +!Prox Subclavian!145 !21.5!48 ! ! ! !+ +----+----+----- + + +- + - There is antegrade vertebral flow noted on the right side. - Additional Measurements:ICAPSV/CCAPSV 1.63.ICAEDV/CCAEDV 2.25. Carotid Left Measurements+ +---- +----+-----+ +-------- ---------+ +!Location !PSV !EDV !Angle!%Stenosis 2D!%Stenosis Doppler!Tortuosity !+ +----+----+----- + + +- +!Prox CCA !96.1!17.6!48 ! ! ! !+ +----+----+----- + + +- +!Dist CCA !126 !26.5!60 ! ! ! !+ +----+----+----- + + +- +!Prox ICA !191 !55 !60 !40% !50-69% ! !+ +----+----+----- + + +- +!Dist ICA !128 !39.3!60 ! ! ! !+ +----+----+----- + + +- +!Prox ECA !165 !33.4!60 ! ! ! !+ +----+----+----- + + +- +!Vertebral !48.3!16.1!60 ! ! ! !+ +----+----+----- + + +- +!Prox Subclavian!170 !54.8!48 ! ! ! !+ +----+----+----- + + +- + - There is antegrade vertebral flow noted on the left side. - Additional Measurements:ICAPSV/CCAPSV 1.52.ICAEDV/CCAEDV 3.12. 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 Indications for Study:Pre-op for renal transplant.Patient Status:Routine.Study Location:Vascular Lab.Technical Quality:Adequate visualization.Risk FactorsHistory of Disease+---------+----+ +!Diagnosis!Date! Comments !+---------+----+ +!Other ! !Former Smoker, Chronic HEP-C, ESRD, HTN, DM !+---------+----+ +!Other ! !Left Arm AVF !+---------+----+ +ImpressionsRight Impression1. There is <50% diameter reduction (approximately 21% by 2-D measurement)in the internal carotid artery with a peak velocity of 116/21 cm/sec andheterogeneous plaque.2. There is no stenosis in the external carotid artery.3. There is non-occluding plaque in the common carotid artery.4. The vertebral artery flow is antegrade .5. The subclavian artery is within normal limits where visualized.Left Impression1. There is 50% or greater diameter reduction (approximately 40% by 2-Dmeasurement) in the internal carotid artery with a peak velocity of 192/52cm/sec and heterogeneous plaque.2. Technically difficult to measure plaque due to calcification howevervelocity measurements suggest a 50-69% diameter reduction.3. There is no stenosis in the external carotid artery.3. There is non-occluding plaque in the common carotid artery.4. The vertebral artery flow is antegrade .5. The subclavian artery is within normal limits [...] in cm/s ; Diameters are measured in cmCarotid Right Measurements+ +---- +----+-----+ +-------- ---------+ +!Location !PSV !EDV !Angle!%Stenosis 2D!%Stenosis Doppler!Tortuosity !+ +----+----+----- + + +- +!Prox CCA !83.8!16.4!60 ! ! ! !+ +----+----+----- + + +- +!Dist CCA !94.4!21.1!60 ! ! ! !+ +----+----+----- + + +- +!Prox ICA !116 !21.2!60 !% !<50% ! !+ +----+----+----- + + +- +!Dist ICA !154 !36.9!36 ! ! ! !+ +----+----+----- + + +- +!Prox ECA !219 !48.5!60 ! ! ! !+ +----+----+----- + + +- +!Vertebral !45.1!12.3!48 ! ! ! !+ +----+----+----- + + +- +!Prox Subclavian!145 !21.5!48 ! ! ! !+ +----+----+----- + + +- + - There is antegrade vertebral flow noted on the right side. - Additional Measurements:ICAPSV/CCAPSV 1.63.ICAEDV/CCAEDV 2.25.Carotid Left Measurements+ +---- +----+-----+ +-------- ---------+ +!Location !PSV !EDV !Angle!%Stenosis 2D!%Stenosis Doppler!Tortuosity !+ +----+----+----- + + +- +!Prox CCA !96.1!17.6!48 ! ! ! !+ +----+----+----- + + +- +!Dist CCA !126 !26.5!60 ! ! ! !+ +----+----+----- + + +- +!Prox ICA !191 !55 !60 !40% !50-69% ! !+ +----+----+----- + + +- +!Dist ICA !128 !39.3!60 ! ! ! !+ +----+----+----- + + +- +!Prox ECA !165 !33.4!60 ! ! ! !+ +----+----+----- + + +- +!Vertebral !48.3!16.1!60 ! ! ! !+ +----+----+----- + + +- +!Prox Subclavian!170 !54.8!48 ! ! ! !+ +----+----+----- + + +- + - There is antegrade vertebral flow noted on the left side. - Additional Measurements:ICAPSV/CCAPSV 1.52.ICAEDV/CCAEDV 3.12. MYOCARD 2019-02 Referring: FINAL REPORT PATIENT ID: IMAGING, -19 Dr. Schultz [id number] PROCEDURE: MYOCARDIAL MULTI, PHARM, 15:54:0 Kayla PERFUSION SPECT IMAGING SPECT 0 (Rest/Stress)CPT CODE: [id number] INDICATION: Renal transplant evaluation, hypertension, shortness of breath CARDIOVASCULAR PROFILE:CAD History: Known CADSymptoms: Shortness of breathRisk Factors: Diabetes, hypertension, dyslipidemia, tobacco use, early family history CADBMI: 27.9Medications: Hydralazine, clonidine, Coreg, pravastatin, lisinopril STRESS PROTOCOL:Pharmacologic stress was achieved with a 10-second intravenous infusion of regadenoson 0.4 mg. The radiopharmaceutical was administered 30 seconds after the start of the regadenoson infusion. IMAGING PROTOCOL:10.2 mCi of Tc-99m sestamibi was injected intravenously at rest, and non-gated SPECT images were obtained. Then, 32.7 mCi of Tc-99m sestamibi was injected intravenously at peak stress, and gated SPECT images were obtained. Image quality is good. REST FINDINGS:HR: 60/minBP: 171/70 mmHgPrelim. EKG: Normal sinus rhythm.Perfusion: Mild inferior wall perfusion defect.LV Volume: Normal.RV Volume: Normal. STRESS FINDINGS:HR: 65/min (65% of MPHR)BP: 154/38 mmHgPrelim. EKG: No ischemic changes.Symptoms: Dyspnea, nausea and vomiting, headache, flushing, dry mouth (treatment not required).Perfusion: Mild, fixed inferior wall perfusion defect.Wall Motion: Normal LV Volume: Not significantly changed from rest. IMPRESSION:1. Abnormal study.2. Abnormal myocardial perfusion. Mild, fixed inferior wall perfusion defect.3. Normal stress LVEF.4. Normal extracardiac tracer distribution.5. There is no prior study for comparison. Signed: Jefferson Darnell MDReport Verified Date/Time: 02/21/2019 15:54:30 Reading Location: [address] Reading Room myocardial 2019-02 Interface, External Ris In - [facility] perfusion -02/21/2019 3:56 PM CSTFINAL [facility] - SPECT,pharm(Le 15:54:0 REPORT [facility]) 0 PROCEDURE: MYOCARDIAL PERFUSION Center SPECT IMAGING (Rest/Stress)CPT CODE: 10903 INDICATION: Renal transplant evaluation, hypertension, shortness of breath CARDIOVASCULAR PROFILE:CAD History: Known CADSymptoms: Shortness of breathRisk Factors: Diabetes, hypertension, dyslipidemia, tobacco use, early family history CADBMI: 27.9Medications: Hydralazine, clonidine, Coreg, pravastatin, lisinopril STRESS PROTOCOL:Pharmacologic stress was achieved with a 10-second intravenous infusion of regadenoson 0.4 mg. The radiopharmaceutical was administered 30 seconds after the start of the regadenoson infusion. IMAGING PROTOCOL:10.2 mCi of Tc-99m sestamibi was injected intravenously at rest, and non-gated SPECT images were obtained. Then, 32.7 mCi of Tc-99m sestamibi was injected intravenously at peak stress, and gated SPECT images were obtained. Image quality is good. REST FINDINGS:HR: 60/minBP: 171/70 mmHgPrelim. EKG: Normal sinus rhythm.Perfusion: Mild inferior wall perfusion defect.LV Volume: Normal.RV Volume: Normal. STRESS FINDINGS:HR: 65/min (65% of MPHR)BP: 154/38 mmHgPrelim. EKG: No ischemic changes.Symptoms: Dyspnea, nausea and vomiting, headache, flushing, dry mouth (treatment not required).Perfusion: Mild, fixed inferior wall perfusion defect.Wall Motion: Normal LV Volume: Not significantly changed from rest. IMPRESSION:1. Abnormal study.2. Abnormal myocardial perfusion. Mild, fixed inferior wall perfusion defect.3. Normal stress LVEF.4. Normal extracardiac tracer distribution.5. There is no prior study for comparison. Signed: Jefferson Darnell MDReport Verified Date/Time: 02/21/2019 15:54:30 Reading Location: [address] Reading Room 12 lead 2019-02 Interface, External Ris In - [facility] St -02/21/2019 2:27 PM [facility] - 14:27:1 CSTVentricular Rate 60 BPMAtrial Medical 5 Rate 60 BPMP-R Interval 158 msQRS Center Duration 92 msQ-T Interval 474 msQTC Calculation(Bazett) 474 msP Butler 54 degreesR Butler 24 degreesT Butler -74 degreesNormal sinus rhythmLeft atrial enlargementT wave abnormality, consider inferolateral ischemiaProlonged QTAbnormal ECGConfirmed by MD Serena, Ronni ([id number]) on 02/21/2019 2:27:14 PM 2D Echo 2018- Ejection FractionSLEH ECHO [facility] W/Doppler(CW/P -19 HEART[facility] MKCKESSON Lucia kes - W/Color) 12:49:0 CPACSInterface, External Ris In - Medical 6 02/21/2019 12:49 PM Cente r CSTTransthoracic Echocardiography Report (TTE) Demographics Patient Name FIDEL LYNCH Date of Study 02/21/2019 SHO Gender Male Visit Number [id number] Race Other Room Number Number Date of 1955 Referring Physician Emilio Black MD Age 63 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 The left ventricle is chamber size (by vol index) is mildly enlarged. No evidence of LV hypertrophy. All of the LV segments contract normally. LVEF by Jhaveri's method of disk assessment is normal (>60%). Grade 1 diastolic dysfunction (impaired relaxation and low-normal LA pressure). LA size is moderately enlarged (42-48 ml/m2) . 2. The right ventricular chamber size and systolic function are within normal limits. RA size is normal. Unable to estimate peak systolic PA pressure; inadequate TR velocity signal. 3. Bicuspid aortic valve with fusion of [...] index) is mildly enlarged (male - LVED 75-89ml/m2). No evidence of LV hypertrophy. All of the LV segments contract normally . Global LV systolic function normal . LVEF by Jhaveri's method of disk assessment is normal (>60%) . Grade 1 diastolic dysfunction (impaired relaxation and low-normal LA pressure). Left Atrium LA size is moderately enlarged (42-48 ml/m2) . Right Ventricle The right ventricular chamber size and systolic function are within normal limits. Right Atrium RA size is normal. Aortic Valve Bicuspid aortic valve with fusion of right and left coronary cusps. There is mild to moderate calcification of the cusp. Mild aortic regurgitation. AoV area at rest by continuity equation is in the range of 1.72 cm2. Mitral Valve Mild MV leaflet thickening. Trace mitral regurgitation. Tricuspid Valve TV structure is normal. A trace of tricuspid regurgitation. Unable to estimate peak systolic PA pressure; inadequate TR velocity signal. Pulmonic Valve Normal PV structure and function by limited views and Doppler. Aorta Aortic root size (SInus of Valsalva diameter) is normal. Proximal ascending aorta size normal . 3.6 cm Pericardium No pericardial effusion is visualized. IVC/SVC/PA/PV/Pleural The estimated RA pressure [...] Mitral Valve MV Peak E-Wave: 0.85 m/s MV Peak A-Wave: 1.23 m/s E/A Ratio: 0.69 Peak Gradient: 2.87 mmHg Deceleration Time: 302.9 msec MV Jordin. Peak: Tissue Doppler E' Lateral Velocity: 0.07 m/s E/E': 12 Aortic Valve Peak Velocity: 1.91 m/s Mean Velocity: 1.24 m/s Peak Gradient: 14.57 mmHg Mean Gradient: 7.06 mmHg AV Area (continuity): 1.74 cm^2 AV VTI: 53.04 cm AV DVI: 0.37 LVOT Peak Velocity: 0.83 m/s Peak Gradient: 2.76 mmHg Mean Velocity: 0.51 m/s Mean Gradient: 1.26 mmHg LVOT Diameter: 2.44 cm LVOT VTI: 19.71 cm LVOT Area: 4.68 cm^2 LVOT SV:92.12 ml LVOT CO: 5.99 l/min LVOT CI: 3.26 l/min/m^2 PSA 2018-01-09 17:11:00 Test Item Value Reference Range Interpretation Comme nts PROSTATE SPECIFIC ANTIGEN ([employer]AKER) (test code = 844) 0.8 ng/mL 0 .0-4.0 HEPATITIS B SURFACE [id number] 17:11:00 Test Item Value Reference Range Interpretation Comments HEPATITIS B SURFACE ANTIBODY 612.9 mIU/mL <8.0 H (BEAKER) (test code = 647) PROTHROMBIN TIME/[id number] 14:59:00 Test Item Value Reference Range Interpretation Comments PROTIME (BEAKER) (test code = 15.6 seconds 11.7-14.7 H 759) INR (BEAKER) (test code = 370) 1.2 <=5.9 RECOMMENDED COUMADIN/WARFARIN INR THERAPY RANGESSTANDARD DOSE: 2.0 - 3.0 Includes: PROPHYLAXIS forvenous thrombosis, systemic embolization; TREATMENT for venous thrombosis and/or pulmonary embolus.HIGH RISK: Target INR is 2.5-3.5 for patients with mechanical heart valves.BASIC METABOLIC [id number] 14:58:00 Test Item Value Reference Range Interpretation Comments SODIUM (BEAKER) 137 meq/L 136-145 (test code = 381) POTASSIUM (BEAKER) 4.7 meq/L 3.5-5.1 (test code = 379) CHLORIDE (BEAKER) 97 meq/L 98-107 L (test code = 382) CO2 (BEAKER) (test 30 meq/L 22-29 H code = 355) BLOOD UREA NITROGEN 31 mg/dL 7-21 H (BEAKER) (test code = 354) CREATININE (BEAKER) 5.68 mg/dL 0.57-1.25 H (test code = 358) GLUCOSE RANDOM 343 mg/dL 70-105 H (BEAKER) (test code = 652) CALCIUM (BEAKER) 8.5 mg/dL 8.4-10.2 (test code = 697) EGFR (BEAKER) (test 10 mL/min/1.73 ESTIMA TORI GFR IS code = 1092) sq m NOT ACCURATE CREATININE CLEARANCE IN PREDICTING GLOMERULAR FILTRATION RATE . ESTIMATED GFR I S NOT APPLICABLE FOR DIALYSIS PATIEN TS. HEPATIC FUNCTION [id number] 14:53:00 Test Item Value Reference Range Interpretation Comments TOTAL PROTEIN (BEAKER) (test code = 7.1 gm/dL 6.0-8.3 770) ALBUMIN (BEAKER) (test code = 1145) 3.2 g/dL 3.5-5.0 L BILIRUBIN TOTAL (BEAKER) (test code 0.5 mg/dL 0.2-1.2 = 377) BILIRUBIN DIRECT (BEAKER) (test 0.2 mg/dL 0.1-0.5 code = 706) ALKALINE PHOSPHATASE (BEAKER) (test 124 U/L 40-150 code = 346) AST (SGOT) (BEAKER) (test code = 13 U/L 5-34 353) ALT (SGPT) (BEAKER) (test code = 7 U/L 6-55 347) CBC W/PLT COUNT & AUTO [id number] 14:19:00 Test Item Value Reference Range Interpretation Comments WHITE BLOOD CELL COUNT (BEAKER) 8.1 K/ L 3.5-10.5 (test code = 775) RED BLOOD CELL COUNT (BEAKER) 3.54 M/ L 4.63-6.08 L (test code = 761) HEMOGLOBIN (BEAKER) (test code = 10.2 GM/DL 13.7-17.5 L 410) HEMATOCRIT (BEAKER) (test code = 33.2 % 40.1-51.0 L 411) MEAN CORPUSCULAR VOLUME (BEAKER) 93.8 fL 79.0-92.2 H (test code = 753) MEAN CORPUSCULAR HEMOGLOBIN 28.8 pg 25.7-32.2 (BEAKER) (test code = 751) MEAN CORPUSCULAR HEMOGLOBIN CONC 30.7 GM/DL 32.3-36.5 L (BEAKER) (test code = 752) RED CELL DISTRIBUTION WIDTH 14.4 % 11.6-14.4 (BEAKER) (test code = 412) PLATELET COUNT (BEAKER) (test 253 K/CU MM 150-450 code = 756) MEAN PLATELET VOLUME (BEAKER) 10.5 fL 9.4-12.4 (test code = 754) NUCLEATED RED BLOOD CELLS 0 /100 WBC 0-0 (BEAKER) (test code = 413) NEUTROPHILS RELATIVE PERCENT 64 % (BEAKER) (test code = 429) LYMPHOCYTES RELATIVE PERCENT 25 % (BEAKER) (test code = 430) MONOCYTES RELATIVE PERCENT 8 % (BEAKER) (test code = 431) EOSINOPHILS RELATIVE PERCENT 2 % (BEAKER) (test code = 432) BASOPHILS RELATIVE PERCENT 1 % (BEAKER) (test code = 437) NEUTROPHILS ABSOLUTE COUNT 5.20 K/ L 1.78-5.38 (BEAKER) (test code = 670) LYMPHOCYTES ABSOLUTE COUNT 1.98 K/ L 1.32-3.57 (BEAKER) (test code = 414) MONOCYTES ABSOLUTE COUNT (BEAKER) 0.62 K/ L 0.30-0.82 (test code = 415) EOSINOPHILS ABSOLUTE COUNT 0.12 K/ L 0.04-0.54 (BEAKER) (test code = 416) BASOPHILS ABSOLUTE COUNT (BEAKER) 0.11 K/ L 0.01-0.08 H (test code = 417) IMMATURE GRANULOCYTES-RELATIVE 1 % 0-1 PERCENT (BEAKER) (test code = 2801) FLOW PRA CLASS I AND [id number] 12:02:00 Test Item Value Reference Range Interpretation Comments DATE OF SERUM (BEAKER) 698952 (test code = 2289) SERUM # (BEAKER) (test 488507 code = 2290) FLOW PRA CLASS I AND II See Scanned Report (test code = 2421) HEPATITIS B SURFACE [id number] 13:18:00 Test Item Value Reference Range Interpretation Comments HEPATITIS B SURFACE ANTIBODY < mIU/mL <8.0 (BEAKER) (test code = 647) [id number] 13:08:00 Test Item Value Reference Range Interpretation Comments PROSTATE SPECIFIC ANTIGEN (BEAKER) 0.9 ng/mL 0.0-4.0 (test code = 844) FLOW PRA CLASS I AND [id number] 16:00:00 Test Item Value Reference Range Interpretation Comments DATE OF SERUM (BEAKER) 958855 (test code = 2289) SERUM # (BEAKER) (test 467359 code = 2290) FLOW PRA CLASS I AND II See Scanned Report (test code = 2421) BASIC METABOLIC [id number] 15:51:00 Test Item Value Reference Range Interpretation Comments SODIUM (BEAKER) 135 meq/L 136-145 L (test code = 381) POTASSIUM (BEAKER) 4.5 meq/L 3.5-5.1 (test code = 379) CHLORIDE (BEAKER) 92 meq/L 98-107 L (test code = 382) CO2 (BEAKER) (test 27 meq/L 22-29 code = 355) BLOOD UREA NITROGEN 26 mg/dL 7-21 H (BEAKER) (test code = 354) CREATININE (BEAKER) 5.08 mg/dL 0.57-1.25 H (test code = 358) GLUCOSE RANDOM 296 mg/dL 70-105 H (BEAKER) (test code = 652) CALCIUM (BEAKER) 8.7 mg/dL 8.4-10.2 (test code = 697) EGFR (BEAKER) (test 12 mL/min/1.73 ESTIMA TORI GFR IS code = 1092) sq m NOT ACCURATE CREATININE CLEARANCE IN PREDICTING GLOMERULAR FILTRATION RATE . ESTIMATED GFR I S NOT APPLICABLE FOR DIALYSIS PATIEN TS. HEPATIC FUNCTION [id number] 15:48:00 Test Item Value Reference Range Interpretation Comments TOTAL PROTEIN (BEAKER) (test code = 7.3 gm/dL 6.0-8.3 770) ALBUMIN (BEAKER) (test code = 1145) 3.6 g/dL 3.5-5.0 BILIRUBIN TOTAL (BEAKER) (test code 0.6 mg/dL 0.2-1.2 = 377) BILIRUBIN DIRECT (BEAKER) (test 0.2 mg/dL 0.1-0.5 code = 706) ALKALINE PHOSPHATASE (BEAKER) (test 203 U/L 40-150 H code = 346) AST (SGOT) (BEAKER) (test code = 17 U/L 5-34 353) ALT (SGPT) (BEAKER) (test code = 14 U/L 6-55 347) CBC W/PLT COUNT & AUTO [id number] 15:11:00 Test Item Value Reference Range Interpretation Comments WHITE BLOOD CELL COUNT (BEAKER) 8.0 K/ L 4.0-10.0 (test code = 775) RED BLOOD CELL COUNT (BEAKER) 3.27 M/ L 4.20-5.80 L (test code = 761) HEMOGLOBIN (BEAKER) (test code = 10.2 GM/DL 13.0-16.8 L 410) HEMATOCRIT (BEAKER) (test code = 30.3 % 40.0-50.0 L 411) MEAN CORPUSCULAR VOLUME (BEAKER) 92.6 fL 82.0-98.0 (test code = 753) MEAN CORPUSCULAR HEMOGLOBIN 31.2 pg 27.0-33.0 (BEAKER) (test code = 751) MEAN CORPUSCULAR HEMOGLOBIN CONC 33.7 GM/DL 32.0-36.0 (BEAKER) (test code = 752) RED CELL DISTRIBUTION WIDTH 12.9 % 10.3-14.2 (BEAKER) (test code = 412) PLATELET COUNT (BEAKER) (test 248 K/CU MM 150-430 code = 756) MEAN PLATELET VOLUME (BEAKER) 7.3 fL 6.5-10.5 (test code = 754) NUCLEATED RED BLOOD CELLS 0 /100 WBC 0-0 (BEAKER) (test code = 413) NEUTROPHILS RELATIVE PERCENT 65 % (BEAKER) (test code = 429) LYMPHOCYTES RELATIVE PERCENT 24 % (BEAKER) (test code = 430) MONOCYTES RELATIVE PERCENT 8 % (BEAKER) (test code = 431) EOSINOPHILS RELATIVE PERCENT 3 % (BEAKER) (test code = 432) BASOPHILS RELATIVE PERCENT 1 % (BEAKER) (test code = 437) NEUTROPHILS ABSOLUTE COUNT 5.16 K/ L 1.80-8.00 (BEAKER) (test code = 670) LYMPHOCYTES ABSOLUTE COUNT 1.89 K/ L 1.48-4.50 (BEAKER) (test code = 414) MONOCYTES ABSOLUTE COUNT (BEAKER) 0.67 K/ L 0.00-1.30 (test code = 415) EOSINOPHILS ABSOLUTE COUNT 0.20 K/ L 0.00-0.50 (BEAKER) (test code = 416) BASOPHILS ABSOLUTE COUNT (BEAKER) 0.07 K/ L 0.00-0.20 (test code = 417) 0.00AFB CULTURE + [id number] 19:58:00 Test Item Value Reference Range Interpretation Comments CULTURE (BEAKER) (test No acid-fast bacilli code = 1095) isolated in 42 days AFB SMEAR (BEAKER) No acid fast bacilli (test code = 994) seen AFB CULTURE + [id number] 19:58:00 Test Item Value Reference Range Interpretation Comments CULTURE (BEAKER) (test No acid-fast bacilli code = 1095) isolated in 42 days AFB SMEAR (BEAKER) No acid fast bacilli (test code = 994) seen AFB CULTURE + [id number] 18:21:00 Test Item Value Reference Range Interpretation Comments CULTURE (BEAKER) (test No acid-fast bacilli code = 1095) isolated in 42 days AFB SMEAR (BEAKER) No acid fast bacilli (test code = 994) seen POCT-GLUCOSE [id number] 10:30:00 Test Item Value Reference Range Interpretation Comments POC-GLUCOSE METER 468 mg/dL 70-110 HH TESTED AT [facility] 6720 (BEAKER) (test code = JANICE STATON 1538) [address] CREATINE KINASE (CK), TOTAL AND [id number] 08:31:00 Test Item Value Reference Range Interpretation Comments CREATINE KINASE TOTAL (BEAKER) 42 U/L 29-200 (test code = 380) CREATINE KINASE-MB (BEAKER) (test 2.3 ng/mL 0.0-6.6 code = 750) CREATINE KINASE-MB INDEX (BEAKER) 5.5 % (test code = 395) Effective 01/21/2014: CK-MB Reference Range ChangeNew: 0.0-6.6 Previous: 0.0-4.9CK-MB Reference Range:<6.7 Normal6.7-10.0 Borderline>10.0 AbnormalTROPONIN [id number] 08:31:00 Test Item Value Reference Range Interpretation Comments TROPONIN I (BEAKER) (test code = 0.05 ng/mL 0.00-0.03 H 397) Effective 01/21/2014: Reference Range ChangeNew: 0.00-0.03 Previous [...] acute neurological disease, and persistent tachyarrhythmia.BASIC METABOLIC [id number] 08:27:00 Test Item Value Reference Range Interpretation Comments SODIUM (BEAKER) 128 meq/L 136-145 L (test code = 381) POTASSIUM (BEAKER) 4.2 meq/L 3.5-5.1 (test code = 379) CHLORIDE (BEAKER) 91 meq/L 98-107 L (test code = 382) CO2 (BEAKER) (test 20 meq/L 22-29 L code = 355) BLOOD UREA NITROGEN 49 mg/dL 7-21 H (BEAKER) (test code = 354) CREATININE (BEAKER) 6.84 mg/dL 0.57-1.25 H (test code = 358) GLUCOSE RANDOM 655 mg/dL 70-105 HH (BEAKER) (test code = 652) CALCIUM (BEAKER) 7.7 mg/dL 8.4-10.2 L (test code = 697) EGFR (BEAKER) (test 8 mL/min/1.73 ESTIMAT ED GFR IS code = 1092) sq m NOT ACCURATE CREATININE CLEARANCE IN PREDICTING GLOMERULAR FILTRATION RATE . ESTIMATED GFR I S NOT APPLICABLE FOR DIALYSIS PATIEN TS. [id number] 08:24:00 Test Item Value Reference Range Interpretation Comments MAGNESIUM (BEAKER) (test code = 2.4 mg/dL 1.6-2.6 627) CBC W/PLT COUNT & AUTO [id number] 08:17:00 Test Item Value Reference Range Interpretation Comments WHITE BLOOD CELL COUNT (BEAKER) 8.9 K/ L 4.0-10.0 (test code = 775) RED BLOOD CELL COUNT (BEAKER) 3.08 M/ L 4.20-5.80 L (test code = 761) HEMOGLOBIN (BEAKER) (test code = 9.7 GM/DL 13.0-16.8 L 410) HEMATOCRIT (BEAKER) (test code = 28.6 % 40.0-50.0 L 411) MEAN CORPUSCULAR VOLUME (BEAKER) 92.9 fL 82.0-98.0 (test code = 753) MEAN CORPUSCULAR HEMOGLOBIN 31.5 pg 27.0-33.0 (BEAKER) (test code = 751) MEAN CORPUSCULAR HEMOGLOBIN CONC 33.9 GM/DL 32.0-36.0 (BEAKER) (test code = 752) RED CELL DISTRIBUTION WIDTH 14.3 % 10.3-14.2 H (BEAKER) (test code = 412) PLATELET COUNT (BEAKER) (test 159 K/CU MM 150-430 code = 756) MEAN PLATELET VOLUME (BEAKER) 8.7 fL 6.5-10.5 (test code = 754) NUCLEATED RED BLOOD CELLS 0 /100 WBC 0-0 (BEAKER) (test code = 413) NEUTROPHILS RELATIVE PERCENT 82 % (BEAKER) (test code = 429) LYMPHOCYTES RELATIVE PERCENT 12 % (BEAKER) (test code = 430) MONOCYTES RELATIVE PERCENT 6 % (BEAKER) (test code = 431) EOSINOPHILS RELATIVE PERCENT 1 % (BEAKER) (test code = 432) BASOPHILS RELATIVE PERCENT 0 % (BEAKER) (test code = 437) NEUTROPHILS ABSOLUTE COUNT 7.31 K/ L 1.80-8.00 (BEAKER) (test code = 670) LYMPHOCYTES ABSOLUTE COUNT 1.06 K/ L 1.48-4.50 L (BEAKER) (test code = 414) MONOCYTES ABSOLUTE COUNT (BEAKER) 0.51 K/ L 0.00-1.30 (test code = 415) EOSINOPHILS ABSOLUTE COUNT 0.05 K/ L 0.00-0.50 (BEAKER) (test code = 416) BASOPHILS ABSOLUTE COUNT (BEAKER) 0.01 K/ L 0.00-0.20 (test code = 417) 0.00
--- OUTSIDE RECORDS SUMMARY | 2019-09-30 21:40 | XMS REPORT | Encounter Summary ---
:1955 Author Care Team Providers Name Role Phone Dr. Philippe Paez Primary Care Provider Unavailable Rajendra Montoya Jr, MD Primary Care Provider [phone] Sen James MD Primary Care Provider [phone] Reason for Visit Constipation; Low back pain; Hypertensiv e heart AND renal disease; Type 2 diabetes mellitus with multiple complications; Te lemedicine Visit Instructions 1. Hypertensive heart AND renal disease 2. Constipation 3. Type 2 diabetes mellitus with multiple complications 4. Low back pain Discussion Note Completed a telephone visit with ramiro bales. Patient c/o of pain and generalized weakness after dialysis. Patient report he lives by himself. Will call Dr Montoya office and see if pateint can get a homehealth services in place. Patient report he has enough meds curre ntly and does not need any refills. Patient encouraged to wash hands frequently for 20 seconds, practice social distancing by stay home and maintaining physical s pace in public. Patient encouraged to se ek medical care if he starts having continues cough, fever and sob. Patient verbalized understanding. Patient educational handouts: No information available. Plan of Care Reminders Provider Appointments Telemedicine on or around 11/03/2019 [facility] None recorded. Referral None recorded. Procedures None recorded. Surgeries None recorded. Imaging None recorded. Medications Name Start Date Aspir-81 mg tablet,delayed release Take 1 tablet every day by oral route. Auryxia 210 mg iron tablet Take 2 tablets 3 times a day by oral route. carvedilol 6.25 mg tablet Take 1 tablet twice a day by oral route. clonidine HCl 0.2 mg tablet Take 1 tablet twice a day by oral route. gabapentin 100 mg capsule Take 1 capsule 3 times a day by oral route. lactulose 10 gram/15 mL (15 mL) oral solution Take 15 mL every day by oral route as directed. [place] 10 mg-325 mg tablet Take 1 tablet every 4 hours by oral route as needed. pravastatin 40 mg tablet Take 1 tablet every day by oral route. Renvela 800 mg tablet Take 1 tablet 3 times a day by oral route. Sensipar 30 mg tablet Take 1 tablet every day by oral route. sildenafil 100 mg tablet Take 1 tablet every day by oral route. tizanidine 4 mg tablet Take 1 tablet every 6 hours by oral route as directed . zolpidem 10 mg tablet Take 1 tablet every day by oral route at bedtime. Medications Administered None recorded. Vitals Height 5 ft 6 in Results Lab Results None recorded. Allergies Code Code System Name Reaction Severity Status Onset NKDA Problems Name Status Onset Date Source Chronic Hepatitis C Active 03/12/2019 End-stage Renal Disease Active 03/12/2019 Diabetic Neuropathy Active 07/22/2019 Overweight Active 07/22/2019 Body Mass Index 25-29 - Overweight Active 07/22/2019 Iron Deficiency Anemia Active 07/22/2019 Insomnia Active 07/22/2019 Itching of Eye Active 07/22/2019 Constipation Active 07/22/2019 End Stage Renal Failure on Dialysis Active 07/22/2019 Hyperparathyroidism Due to Renal Insufficiency Active 0 07/22/2019 Osteoarthritis Active 07/22/2019 Low Back Pain Active 07/22/2019 Type 2 Diabetes Mellitus with Multiple Active 0 Complications Hypertensive Heart and Renal Disease Active 07/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 History of Present Illness Diabetes F/U Reported By: Patient HPI: Review finger sticks: monito ring glucose 2 times per day. Context: seeing eye doctor regularly, checking feet regularly. Associated Symptoms: no weight gain, no weight loss, no dizziness, no sweats, no headaches Tobacco Cessation Reported By: Patient HPI: Duration: 15 years. Timing: intermittent thorughout the day. Context: during stress. Associated Sy mptoms: no weight loss, no fatigue, no hoarseness or change in voic e, no throat pain, no pain or difficulty swallowing, no cough. Treatm ents tried: none Note: I confirm that I received verbal consent from the patient for the virtual visit.
This telemedicine encounter was performed using live {{video and audio|audio only because either patient did not have technology or unable to connect due to technical problems*}}.
<strong>(for a udio only)</strong> Total time spent with patient: {{30#| }} minutes. Review of Systems Comprehensive General Adult ROS Reported By: Patient Constitutional: Constitutional: no fever, no night sweats, no significant weight gain, no significant weight loss, no exercise intolerance Eyes: Eyes: no dry eyes, no vision change, no irritation ENMT: Ears: no difficulty hearing, no ear pain. Nose: no frequent nosebleeds, no nose problems , no sinus problems. Mouth/Throat: no sore throat, no bleeding gums, no snoring, no dry mouth, no mouth ulcers, no oral abnorm alities, no teeth problems Cardiovascular: Cardiovascular: no chest yue n, no arm pain on exertion, no shortness of breath when wal beatriz, no shortness of breath when lying down, no palpitations, no known heart murmur, no lightheadedness Respiratory: Respiratory: no cough, no wh eezing, no shortness of breath, no coughing up blood, no sleep apnea Gastrointestinal: Gastrointestinal: no abdomin al pain, no nausea, no vomiting, no constipation, normal appe tite, no diarrhea, not vomiting blood, no dyspepsia, no GERD Genitourinary: Genitourinary: no incontinen ce, no difficulty urinating, no hematuria, no increased freq uency Musculoskeletal: Musculoskeletal: no muscle a ches, no muscle weakness, no arthralgias/joint pain, no b ack pain, no swelling in the extremities Integumentary: Skin: no abnormal mole, no j aundice, no rashes, no laceration Neurologic: Neurologic: no loss of consc iousness, no weakness, no numbness, no seizures, no di zziness, no migraines, no headaches, no tremor Psychiatric: Psych: no depression, no sle ep disturbances, feeling safe in a relationship, no alcohol abu se, no anxiety, no hallucinations, no suicidal thoughts Endocrine: Endocrine: no fatigue Hematologic/Lymphatic: Hematologic/Lymphatic no swo llen glands, no bruising, no excessive bleeding Allergic/Immunologic: Allergy/Immunologic: no runn y nose, no sinus pressure, no itching, no hives, no freque nt sneezing Physical Exam Telemedicine/Virtual Visit Reported By: Patient Constitutional: Level of Distress: NAD Psychiatric: Insight: good judgement. Men mónica Status: active and alert, normal mood, normal affect. Orienta tion: to time, to place, to person. Memory: recent memory normal"
[2019-09-30] MEDS: HEPARIN 5000 UNIT/ML 1 ML VIAL SQ SCH (22:10)
[2019-09-30] MEDS: HYDRALAZINE HCL 20 MG/ML VIAL IV PRN (22:10)
[2019-09-30] MEDS: predniSONE 20 MG TAB PO SCH (22:11)
[2019-09-30] MEDS: TIZANIDINE 4 MG TABLET PO SCH (22:11)
[2019-09-30] MEDS: HYDROCODONE/APAP 10/325 TAB PO PRN (22:37)
[2019-09-30] MEDS: ALBUTEROL INHALER 60 PUFF/8 GM IH PRN (22:51)
[2019-10-01] MEDS ORDERED: cloNIDine HCL 0.1 MG TAB PO ONE (00:59)
[2019-10-01] MEDS ORDERED: NITROGLYCERIN 1 GM PKT TD ONE (00:59)
[2019-10-01 03:21] VITALS: BMI 26.2
[2019-10-01] MEDS: HYDROCODONE/APAP 10/325 TAB PO PRN ×2 (04:21→12:15)
[2019-10-01] MEDS: HYDRALAZINE HCL 20 MG/ML VIAL IV PRN ×2 (04:40→12:16)
[2019-10-01] MEDS: ALBUTEROL INHALER 60 PUFF/8 GM IH PRN (04:49)
[2019-10-01 07:00] LABS: Absolute Lymphocytes (CBC) 0.3 K/uL (0.7-4.9); Basophils % 0.6 % (0-1.3); Hematocrit 31.1 % (39.6-49.0); Lymphocytes % 4.7 % (15.3-44.8); MPV 9.6 fL (7.6-11.3); RBC Red Blood Cell Count 3.21 M/uL (4.33-5.43)
[2019-10-01 07:04] LABS: Albumin 3.3 g/dL (3.4-5.0); Bilirubin Total 1.4 mg/dL (0.2-1.0); Potassium 3.9 mmol/L (3.5-5.1); Protein, Total 7.1 g/dL (6.4-8.2); Troponin I 0.05 ng/mL (0.0-0.045)
[2019-10-01] MEDS: INSULIN -REGULAR HUMAN 50 UNIT/0.5 ML ML SQ SCH ×2 (07:30→12:36)
[2019-10-01 07:58] VITALS: O2SAT 99
[2019-10-01] MEDS: TIZANIDINE 4 MG TABLET PO SCH (08:02)
[2019-10-01] MEDS: cloNIDine HCL 0.1 MG TAB PO SCH ×2 (08:02→14:16)
[2019-10-01] MEDS: predniSONE 20 MG TAB PO SCH (08:02)
[2019-10-01] MEDS: HEPARIN 5000 UNIT/ML 1 ML VIAL SQ SCH (08:02)
[2019-10-01] MEDS: DULERA 100/5 (MOMETASONE/FORMOTEROL) INHALER IH SCH (09:00)
[2019-10-01] MEDS ORDERED: LABETALOL 20 MG/4ML SYRINGE IV ONE (09:14)
--- NOTE | 2019-10-01 10:47 | RAD REPORT ---
EXAM DESCRIPTION: US - Abdomen Exam Limited - 10/01/2019 9:49 am CLINICAL HISTORY: Elevated LTS's Abdominal pain COMPARISON: BIOPSY RENAL dated 11/12/2014; Abdomen Angio dated 08/15/2019 FINDINGS: The gallbladder demonstrates no gallstones. No pericholecystic fluid or gallbladder wall t hickening. The common bile duct is mildly enlarged measuring 8 mm. The liver demonstrates no findings of intrahepatic biliary dilatation. IMPRESSION: No gallstones are identified. Mildly prominent common bile duct noted measuring 8 mm.
[2019-10-01 10:54] LABS: Anisocytosis 1+; Blood Morphology Comment NOTED (NOT SEEN); Platelet Estimate ADEQ; White Blood Cell Scan OK
[2019-10-01 11:54] VITALS: TEMP 96.6
--- NOTE | 2019-10-01 12:15 | ECHO ---
HEIGHT: 5 ft 6 in WEIGHT: 159 lb 12.8 oz DATE OF STUDY: 10/01/[address]: Sixto Kramer NP 2-DIMENSIONAL: YES M.MODE: YES DOPPLER: YES COLOR FLOW: YES TDS: NO PORTABLE: NO DEFINITY: NO BUBBLE STUDY: NO DIAGNOSIS: CHEST PAIN CARDIAC HISTORY: CATHERIZATION: NO SURGERY: NO PROSTHETIC VALVE: NO PACEMAKER: NO MEASUREMENTS (cm) DIASTOLIC (NORMALS) SYSTOLIC (NORMALS) IVSd 1.4 (0.6-1.2) LA Diam 4.5 (1.9-4.0) LVEF 54% LVIDd 5.0 (3.5-5.7) LVIDs 3.6 (2.0-3.5) %FS 28% LVPWd 1.5 (0.6-1.2) Ao Diam 2.9 (2.0-3.7) 2 DIMENSIONAL ASSESSMENT: RIGHT ATRIUM: NORMAL LEFT ATRIUM: DILATED RIGHT VENTRICLE: NORMAL LEFT VENTRICLE: LEFT VENTRICULAR HYPERTROPHY TRICUSPID VALVE: NORMAL MITRAL VALVE: MITRAL ANNULAR CALCIFICATION PULMONIC VALVE: NORMAL AORTIC VALVE: SCLEROSIS PERICARDIAL EFFUSION: NONE AORTIC ROOT: NORMAL LEFT VENTRICULAR WALL MOTION: NORMAL. DOPPLER/COLOR FLOW: MILD TRICUSPID AND AORTIC REGURGITATION. COMMENTS: LEFT VENTRICULAR HYPERTROPHY - NORMAL EJECTION FRACTION. MITRAL ANNULAR CALCIFICATION. MILD TRICUSPID REGURGITATION. AORTIC SCLEROSIS - NO STENOSIS. NO WALL MOTION ABNORMALITY. TECHNOLOGIST: DUONG OROURKE
[2019-10-01 12:50] VITALS: BP 150/70
--- NOTE | 2019-10-01 13:02 | P.DS ---
Admission Date: 09/30/19 Discharge Date: 10/02/19 Primary Care Provider: dmitriy Disposition: ROUTINE DISCHARGE Discharge Condition: GOOD Reason for Admission: Chest pain, shortness of breath Brief History of Present Illness: 64-year-old male with history of diabetes mellitus type 2, hypertension, chronic pain, end-stage renal disease on chronic hemodialysis, tobacco abuse presents emergency department for shortness of breath and chest pain from approximately 2 weeks. Patient reports he sees a technical designer in [place] is unsure the name of the doctor. Patient reports that he thinks he may have an echocardiogram earlier this year but cannot be completely sure. Patient does report that he failed a stress test approximately 6 months ago. Patient has not since been re-evaluated. Patient states he has never had a heart catheterization. During his evaluation in the emergency department was found to have a slightly elevated troponin 0.05, BNP is extremely elevated. Patient also is a heavy smoker and does sound like he is having some expiratory wheezing. Also possible he has underlying COPD undiagnosed. ED provider wishes to admit patient for further evaluation management.. Hospital Course: Chest pain and shortness of breath with slightly elevated troponin complicated with end-stage renal disease on chronic hemodialysis End-stage renal disease on chronic hemodialysis Diabetes mellitus type [id number] Hypertension Elevated liver enzymes likely secondary to cirrhosis, history of hepatitis-C Chronic pain Course Chest pain and shortness of breath with slightly elevated troponin complicated with end-stage renal disease on chronic hemodialysis: Cardiology has been consulted on this case. Will trend troponins, echocardiogram ordered. Patient reports that he had a stress test that he was told he flunked approximately 6 months ago. Patient has not had further workup from that time. Patient states he may have had echocardiogram within the past year but he is not sure. Appreciate further input from cardiology. End-stage renal disease on chronic hemodialysis: Have consulted Nephrology. Patient is a Monday dialysis patient and he did complete dialysis today. Diabetes mellitus type [id number]: Patient is diet controlled. Will still continue a.c. HS Accuchecks and mild sliding scale insulin therapy. Will also obtain A1c level. Hypertension: Will obtain and continue patient's home medications. In the meantime p.r.n. orders for blood pressure medication placed. Elevated liver enzymes likely secondary to cirrhosis, history of hepatitis-C: Will repeat liver enzymes with morning labs. Ultrasound of the liver also order. This can be further evaluated on an outpatient basis as patient is asymptomatic. Chronic pain: Had continue patient's home medications for pain. He was monitored under telemetry and troponins were monitored and trended. patient was chest pain-free, she wanted to go home and wanted to follow up as an outpatient for further workup from a technical designer. The patient is being discharged home today in a stable condition with advice to follow up with PCP in 1 week and also with nephrology and cardiology in 1-2 weeks Vital Signs/Physical Exam: Temp Pulse Resp BP Pulse Ox 96.6 F L 63 16 150/70 H 94 10/01/19 11:53 10/01/19 11:53 10/01/19 11:53 10/01/19 12:49 10/01/19 11:53 General: Alert, In no apparent distress HEENT: Atraumatic, Normocephalic Neck: Supple Respiratory: Normal air movement Cardiovascular: Regular rate/rhythm, Normal S1 S2 Capillary refill: <2 Seconds Gastrointestinal: Soft and benign, W/out hepatosplenomegaly Musculoskeletal: No clubbing Integumentary: No rashes Neurological: Other (Alert, Awake ) Laboratory Data at Discharge: WBC 5.7 K/uL (4.3-10.9) D 10/01/19 06:00 Hgb 10.3 g/dL (13.6-17.9) L 10/01/19 06:00 Hct 31.1 % (39.6-49.0) L 10/01/19 06:00 Plt Count 159 K/uL (152-406) 10/01/19 06:00 PT 15.6 SECONDS (9.5-12.5) H 09/30/19 13:40 INR 1.33 09/30/19 13:40 Sodium 135 mmol/L (136-145) L 10/01/19 06:00 Potassium 3.9 mmol/L (3.5-5.1) 10/01/19 06:00 BUN 33 mg/dL (7-18) H 10/01/19 06:00 Creatinine 6.02 mg/dL (0.55-1.3) H* D 10/01/19 06:00 Glucose 165 mg/dL (74-106) H 10/01/19 06:00 Magnesium 2.2 mg/dL (1.8-2.4) 09/30/19 13:40 Total Bilirubin 1.4 mg/dL (0.2-1.0) H 10/01/19 06:00 AST 235 U/L (15-37) H D 10/01/19 06:00 ALT 241 U/L (12-78) H 10/01/19 06:00 Alkaline Phosphatase 140 U/L (45-117) H 10/01/19 06:00 Troponin I 0.05 ng/mL (0.0-0.045) H 10/01/19 06:00 Home Medications: Gabapentin [Neurontin*] 100 mg PO TID 01/02/19 Hydralazine HCl [Apresoline] 100 mg PO TID 01/02/19 Hydrocodone 10/APAP 325 [[place] *] 1 tab PO Q6H PRN 01/02/19 Lactulose 20 gm PO DAILYPRN PRN 01/02/19 Pravastatin Sodium [Pravachol] 40 mg PO BEDTIME 01/02/19 Tobramycin/Dexamethasone [Tobramycin-Dexameth Ophth Susp] 2 gtt OP BID 01/02/19 Zolpidem Tartrate [Ambien*] 10 mg PO BEDTIME 01/02/19 Albuterol Sulfate [Proair Hfa] 2 puff IH TID PRN #1 hfa.aer.ad 01/10/19 Benzonatate [Tessalon Perle*] 100 mg PO TID PRN #15 cap 01/10/19 Guaifenesin [Mucinex] 600 mg PO BID #15 tab.er.12h 01/10/19 Mometasone/Formoterol [Dulera 200 Mcg/5 Mcg Inhaler] 2 puff IH BID #1 inhaler 01/10/19 carvediloL [Coreg*] 6.25 mg PO BID #60 tab 01/10/19 cloNIDine HCL [Catapres*] 0.2 mg PO TID #180 tab 01/10/19 predniSONE [Deltasone*] 10 mg PO SEECOM #15 tab 01/10/19 Mometasone/Formoterol [Dulera 100 Mcg/5 Mcg Inhaler] 2 puff IH BID #1 inhaler 10/01/19 predniSONE [Prednisone*] 20 mg PO BID #14 tab 10/01/19 New Medications: Mometasone/Formoterol [Dulera 100 Mcg/5 Mcg Inhaler] 2 puff IH BID #1 inhaler predniSONE [Prednisone*] 20 mg PO BID #14 tab Followup: Jose Francisco Mckeon MD [ACTIVE - CAN ADMIT] - Time spent managing pt's care (in minutes): 40
--- NOTE | 2019-10-02 01:23 | PN ---
Date of Progress Note: 10/01/2019 Subjective: The patient was admitted with chest pain, atypical and COPD exacerbation. The patient h ad dialysis yesterday. Physical Examination: Vital Signs: Blood pressure 150/70, pulse of 63. Chest: Clear on the upper zone. Mild rales on the right lower. Heart: S1, S2. Systolic murmur. Abdomen: Soft, nontender. Extremities: No edema. Laboratory Data: H and H 10.3/31.1. Sodium 135, potassium 3.9, bicarb 25, BUN 33, creatinine 6, nataly cium 8.2. Current Medications: The patient on include clonidine, labetalol, hydralazine, Zofran, nitroglycerin , Zanaflex. Assessment And Plan: 1.End-stage renal disease, mild over volume, renal artery stenosis. We will arrange for dialysis to [facility]. 2.Hyperkalemia, resolved. 3.Over volume, status post dialysis, recovered. 4.Renal artery stenosis. Plan for outpatient surgery. 5.Diabetes as by primary. 6.Chronic obstructive pulmonary disease exacerbation as by Pulmonary and Primary. The patient is cl eared from the renal standpoint for discharge planning. YOUNG/DHRUV Voice ID: [id number] Report ID: [id number]
--- NOTE | 2019-10-02 01:37 | CON ---
Date of Consultation: 10/01/2019 Reason For Consultation: Shortness of breath. History Of Present Illness: Mr. Urbano is a 64-year-old male, who came into the emergency ro om complaining of shortness of breath. He does have a history of end-stage renal disease. He is on hemodialysis. He has diabetes, hypertension, gastroesophageal reflux disease. He came in with chest pain, shortness of breath, irregular heartbeat, palpitation. He was found to have a troponin of 0.0 5. He had an echocardiogram when I saw him, that was basically normal with a normal ejection fractio n and no pericardial effusion. His chest pain was atypical, it was sharp. His palpitations were eloy rt lasting without any syncope. He denied nausea, vomiting, diaphoresis, PND, orthopnea. Denied any fever or chills. Apparently at one point, he was on the transplant list for kidney, has had a negat davin cardiac workup including catheterization. Apparently, there was an attempt to do a stent of his renal artery, but that did not work out. I do not have the details for that. He does have nephrolog ist in the [place] area. He is also followed here by Dr. Rand. Past Medical History: As stated above. Allergies: NONE. Review of Systems: Negative. Social History: Negative. Family History: Negative. Medications: At home include Norvasc, clonidine, hydralazine, metoprolol, and Zanaflex as well as Pl avix. Physical Examination: Vital Signs: Stable. He was afebrile. HEENT: Negative. Neck: Supple without any bruit, lymphadenopathy, JVD, or thyromegaly. Chest: Clear to auscultation and percussion. Cardiac: Regular rhythm and rate. No murmurs, gallops, or rubs. Abdomen: Benign. Extremities: No clubbing, cyanosis, or edema. Diagnostic Data: Basically, his last blood pressure is 150/70. He had an O2 saturation of 99% on ro om air. His creatinine was 6, hemoglobin of 10.3, his white count was 5.7. His glucose was 278. Hi s AST and ALT were elevated. His troponin was 0.05. His BNP was more than 175,000. Impression And Plan: Atypical chest pain. Normal echocardiogram. Troponin elevation and BNP elevat ion are secondary to renal failure. The patient has had negative cardiac workup in the past when the y were trying to do a kidney transplantation and listing. Apparently, he has a renal artery stenosis with unsuccessful stent. Followed by network services project manager locally and out of town. I am comfortable with Natacha Urbano going home and follow up with his network services project manager as usual. His blood pressure may need to be addressed down the road as it is borderline controlled. His diabetes is borderline controlled. I am not so sure what to make out of his elevated liver function tests, but those should be definitely fo llowed as an outpatient as well. ALEJANDRO/MODL Voice ID: [id number] Report ID: [id number]
--- NOTE | 2019-10-05 22:41 | CON ---
Date of Consultation: 09/30/2019 Chief Complaint: End-stage renal dialysis, on dialysis. History Of Present Illness: The patient has history of end-stage renal disease due to the diabetes and hypertension. He came to the emergency room because of shortness of breath and chest pain. He is 64-year-old man with history of diabetes mellitus, hypertension, chronic pain. The patient has been dialysis dependent, has been dialyzed 3 times per week. He came to the hospital because of shortness of breath and chest pain. Cardiology consultation is requested for a possible acute coronary syndrome. Previous echo did not show significant systolic dysfunction. The patient was admitted to the hospital for possible cardiac catheterization and management of chest pain. BNP was extremely elevated and concern was that the patient has fluid overload and dialysis will be requested as soon as possible. Review of Systems: Constitutional: Denies fever, chills. Respiratory: Is complaining of shortness of breath. Denies PND or orthopnea. Has shortness of breath with light activity. GI: Denies nausea or vomiting. : Denies dysuria or hematuria. Musculoskeletal: Denies muscle aches or joint swelling. All other systems reviewed and all are negative. Past Medical History: Hepatitis C, cured; hypertension; hyperlipidemia; chronic pain; chronic anemia; end-stage renal disease, on hemodialysis on Monday, Monday, Monday; diabetes mellitus with renal manifestations; peripheral neuropathy; liver cirrhosis visualized on CT scan; knee replacement; ankle heel spur removal; ankle surgery; back surgery. Family History: Sister, diabetes, cancer. Brother, hypertension, diabetes. Father, hypertension and mother, dementia, hypertension. Physical Examination: General: Not in acute distress. Eyes: Anicteric sclerae. EOMI. Ears, Nose, Mouth, and Throat: Oral mucosa moist. No pallor. Neck: Supple. No bruits. Lungs: Crackles few at bases, expiratory wheezes. Cardiovascular: Regular rate and there is no pericardial friction rub. Abdomen: Soft, benign. No rebound. No guarding. Extremities: Normal strength and normal tone. No tremor. Laboratory Work: Potassium 3.1, sodium 135, BUN 21, creatinine 4.61, glucose 176, magnesium 2.2. Total bilirubin 1.3. AST 429, ALT 289. Impression And Plan: 1. Shortness of breath, likely cardiorenal syndrome. The patient has end- stage renal disease. We will have dialysis with daily treatment to control volemia. Advance fluid removal. Obtain negative fluid balance. Monitor fluid intake and continue p.o. fluid restriction. 2. Hypertension. Continue blood pressure medication. 3. Chest pain. The patient may need cardiac catheterization and dialysis will be done after catheterization to alleviate potassium drip and control hyperkalemia, which might occur secondary to IV contrast. 4. Chronic pain. Continue pain medication. Avoid nonsteroidal anti- inflammatory medication due to high risk of gastrointestinal bleeding. 5. Diabetes mellitus. Continue insulin. 6. Anemia due to chronic kidney disease. Monitor hemoglobin level. Adjust DEXTER. CYNDI/DHRUV Voice ID: [id number] Report ID: [id number]
--- NOTE | 2019-10-18 09:20 | RAD REPORT ---
EXAM DESCRIPTION: RAD - Chest Single View - 09/30/2019 1:58 pm CLINICAL HISTORY: Chest pain;SOB Chest pain. COMPARISON: Chest Pa And Lat (2 Views) dated 01/10/2019; Chest Single View dated 01/07/2019; Chest Single View dated 01/02/2019; Chest Single View dated 09/25/2018 FINDINGS: Portable technique limits examination quality. Interstitial lung markings are mildly prominent likely representing mild interstitial pneumonia. Heart is mildly to moderately enlarged. No displaced fractures.
== END 2019-10-01 14:29 | disposition home or self-care (01) ==
LOC: ER 12:56 → ERHOLD 16:24 → 4TH 20:55 → 2ND 10-01 09:07
PROVIDERS: ADMIT Family Medicine; ATTEND Family Medicine
DX: R07.89 Other chest pain (principal); E87.5 Hyperkalemia; I70.1 Atherosclerosis of renal artery; J44.1 Chronic obstructive pulmonary disease with (acute) exacerbation; E11.22 Type 2 diabetes mellitus with diabetic chronic kidney disease; I12.0 Hypertensive chronic kidney disease with stage 5 chronic kidney disease or end stage renal disease; N18.6 End stage renal disease; D63.1 Anemia in chronic kidney disease; R74.8 Abnormal levels of other serum enzymes; G89.29 Other chronic pain; R06.02 Shortness of breath; R05 Cough; Z20.828 Contact with and (suspected) exposure to other viral communicable diseases; I07.1 Rheumatic tricuspid insufficiency; I35.1 Nonrheumatic aortic (valve) insufficiency; I70.0 Atherosclerosis of aorta; E78.5 Hyperlipidemia, unspecified; K21.9 Gastro-esophageal reflux disease without esophagitis; Z79.4 Long term (current) use of insulin; Z79.82 Long term (current) use of aspirin; Z79.02 Long term (current) use of antithrombotics/antiplatelets; Z79.899 Other long term (current) drug therapy; Z99.2 Dependence on renal dialysis; Z86.19 Personal history of other infectious and parasitic diseases; Z87.891 Personal history of nicotine dependence
CPT/HCPCS: 93005; 93306; 85025 ×2; 80048; 36415; 83735; 85610; 82947 ×4; 80076; 83036; 84484 ×3; 80053; 83880; 71045; 76705; 99285; U0002; J0360 ×3; J1644 ×2; G0378 ×3; J7512; J7606

== ENCOUNTER 2019-10-04 09:11 | Observation (INO) | payer OTHER ==
[2019-10-04 10:17] LABS: Absolute Lymphocytes (CBC) 0.2 K/uL (0.7-4.9); Basophils % 0.1 % (0-1.3); Hematocrit 27.8 % (39.6-49.0); Lymphocytes % 3.9 % (15.3-44.8); MPV 9.1 fL (7.6-11.3); RBC Red Blood Cell Count 2.58 M/uL (4.33-5.43)
--- NOTE | 2019-10-04 10:18 | RAD REPORT ---
EXAM DESCRIPTION: Krissyt Single View10/04/2019 10:09 am CLINICAL HISTORY: Cough COMPARISON: September 29 FINDINGS: Patchy opacities are present within the upper lobes and right lung base The heart is mildly enlarged IMPRESSION: Bilateral patchy lung opacities probably pneumonia
--- OUTSIDE RECORDS SUMMARY | 2019-10-04 10:23 | XMS REPORT | Clinical Summary ---
:1955 Author Organization [facility] Address [address] [place] [address] Care Team Providers Name Role Phone Moiz [...] Coordination Note PCP- Rajendra ALONZO- Dr. Linares [phone] Problem Noted Date Acute respiratory failure with [...] Encounters Date Type Specialty Care Team Description 10/01/2019 Lab Requisition Lab 05/22/2019 Documentation Transplant Sangita Hartman RN 04/24/2019 Telephone Transplant Sangita Hartman, Waitlist Maint young LEIVA 04/15/2019 Telephone Transplant Belinda Leal Appointment 04/15/2019 Telephone Central Scheduling Belinda Leal other 04/12/2019 Social Work Transplant Marian Faust, SENIOR ELECTRICAL ENGINEER 04/08/2019 Telephone Transplant LealBelinda salgado Appointment 03/22/2019 Telephone Transplant LealBelinda salgado Appointment (reschedule mis sed apt. on 03/21/19 , annual updates) 03/20/2019 Outside Orders Radiology Rajendra Montoya Jr., MD 03/20/2019 Orders Only Transplant Sangita Hartman, Awaiting RN transplantation of kidney (Primary Dx) 02/25/2019 Telephone Transplant Belinda Leal Appointment 02/25/2019 Documentation Transplant Sangita Hartman RN 02/25/2019 Telephone Transplant LealBelinda salgado Appointment 02/21/2019 Hospital Encounter Radiology Wayne Jhaveri, [...] Leal Appointment 02/13/2019 Documentation Transplant Sangita Hartman, RN 01/08/2019 Telephone Transplant Belinda Leal Appointment 01/07/2019 Telephone Transplant LealBelinda salgado Appointment 01/04/2019 Telephone Transplant LealMax salgadom Appointment 01/02/2019 Orders Only Cardiology Wayne Jhaveri, Pre-transplant evaluation for ESRD (end stage renal disease) (Primary Dx); Essential hyper tension; Bilateral carot id artery occlusion; Diastolic dysfu nction, left ventricle 01/01/2019 Documentation Transplant Sangita Hartman, Awaiting silva splantation of kidney (Primary Dx); RN History of hepa titis C virus infection after 10/03/2018 Immunizations Name Dates Previously Given Next Due PPD Test 04/03/2016 Social History Tobacco Use Types Packs/Day Years Used Date Former Smoker Tobacco Cessation: Counseling Given: Yes Comments: Quit 2006 Alcohol Use Drinks/Week oz/Week Comments No Quit drinking 23 08; social drinker Sex Assigned at Date Recorded Not on file Job Start Date Occupation Industry Not on file Not on file Not on file Travel History Travel Start Travel End No recent travel history available. Last Filed Vital Signs Vital Sign Reading Time Taken Blood Pressure 140/42 02/21/2019 1:35 PM [employer]AX SENIOR ASSOCIATE Pulse 74 02/21/2019 1:35 PM TAX SENIOR ASSOCIATE Temperature - - Respiratory Rate 20 02/21/2019 1:35 PM TAX SENIOR ASSOCIATE Oxygen Saturation - - Inhaled Oxygen Concentration - - Weight 74.8 kg (165 lb) 02/21/2019 11:19 AM TAX SENIOR ASSOCIATE Height 167.6 cm (5' 6") 02/21/2019 11:19 AM TAX SENIOR ASSOCIATE Body Mass Index 26.63 02/21/2019 11:19 AM TAX SENIOR ASSOCIATE Plan of Treatment Health Maintenance Due Date Last Done Comments PNEUMOCOCCAL VACCINE 2-64 YEARS AT RISK (1 08/29/1963 of 3 - PCV13) DIABETIC EYE EXAM 08/29/1967 DIABETIC FOOT EXAM 08/29/1967 URINE MICROALBUMIN 08/29/1967 MEDICARE ANNUAL WELLNESS (YEAR 2 or FIRST 03/07/2015 YEAR if no IPPE) COLON CANCER SCREENING ANNUAL FOBT 06/11/2016 06/12/2015, 0 06/12/2015 HEMOGLOBIN A1C 09/27/2016 03/30/2016, 01/20/2015 LIPID PANEL 03/30/2019 03/30/2016, 04/30/2015 INFLUENZA VACCINE (#1) 2019 Procedures Procedure Name Priority Date/Time Associated Comments Diagnosis SARS-COV2/RT-PCR ([facility] Routine 09/30/2019 8:00 R esults for this & REF LABS) PM CDT procedure are i n the results section. PERIPHERAL VASCULAR 02/22/2019 9:22 REPORT - SCAN PM TAX SENIOR ASSOCIATE ECHOCARDIOGRAM REPORT - 02/21/2019 9:21 SCAN PM TAX SENIOR ASSOCIATE NM MYOCARDIAL PERFUSION Routine 02/21/2019 2:47 Pre-transplan t Results for this SPECT, PHARM(LEXISCAN) PM TAX SENIOR ASSOCIATE evaluation for pro cedure are in ESRD (end stage the results renal disease) section. Essential hypertension Bilateral carotid artery occlusion Diastolic dysfunction, left ventricle TREADMILL Routine 02/21/2019 1:28 Results for this TOLERANCE(NON-NUCLEAR PM TAX SENIOR ASSOCIATE proced ure are in TREADMILL) the results section. ECG 12-LEAD Routine 02/21/2019 1:04 Results for this PM [employer]AX SENIOR ASSOCIATE procedure are i n the results section. ECG 12-LEAD Routine 02/21/2019 1:04 PM TAX SENIOR ASSOCIATE Procedure Note - Interface, External Ris In - 02/21/2019 1:56 PM TAX SENIOR ASSOCIATE Ventricular Rate 60 BPM Atrial Rate 60 BPM P-R Interval 158 ms QRS Duration 92 ms Q-T Interval 474 ms QTC Calculation(Bazett) 474 ms P [place] 54 degrees R [place] 24 degrees T [place] -74 degrees Normal sinus rhythm Possible Left atrial enlarge ment T wave abnormality, consider inferolateral ischemia Prolonged QT Abnormal ECG ECG 12-LEAD Routine 02/21/2019 1:03 PM TAX SENIOR ASSOCIATE Resu lts for this procedure are in the results section . ECG 12-LEAD Routine 02/21/2019 1:03 PM TAX SENIOR ASSOCIATE Procedure Note - Interface, External Ris In - 02/21/2019 1:56 PM TAX SENIOR ASSOCIATE Ventricular Rate 61 BPM Atrial Rate 61 BPM P-R Interval 156 ms QRS Duration 100 ms Q-T Interval 478 ms QTC Calculation(Bazett) 481 ms P [place] 59 degrees R [place] 33 degrees T [place] -80 degrees Normal sinus rhythm Possible Left atrial enlarge ment T wave abnormality, consider inferolateral ischemia Prolonged QT Abnormal ECG 2D ECHO W/ DOPPLER Routine 02/21/2019 10:02 Pre-transplant britany luation Results for (CW/PW/COLOR) AM TAX SENIOR ASSOCIATE for ESRD (end stage renal t his procedure disease) are in the Essential hypert ension results Bilateral carotid artery sec tion. occlusion Diastolic dysfunction, left ventricle CAROTID DOPPLER Routine 02/21/2019 9:30 Pre-transplant evalua tion Results for BILATERAL AM [employer]AX SENIOR ASSOCIATE for ESRD (end stage renal th is procedure disease) are in the Essential hypert ension results Bilateral carotid artery sec tion. occlusion Diastolic dysfunction, left ventricle after 10/03/2018 Results SARS-CoV2/RT-PCR ([facility] & Ref Labs) (09/30/2019 8:00 PM CDT) SARS-COV2/RT-PCR Negative Not Detected, Negative, [facility] See external report for MEDICAL CENTER linked test SARS-COV-2 PERFORMING LAB [facility] Specimen Other Narrative Performed At Negative results do not preclude SARS-CoV-2 [facility] infection and should not be used as the sole basis for patient management decisions. Negative results must be combined with clinical observations, patient history, and epidemiological information. A false negative result may occur if a specimen is improperly collected, transported or handled. The limit of detection for this assay is 250 copies/mL. This SARS CoV-2 test is a rapid, real-time RT-PCR test intended for the qualitative detection of nucleic acid from SARS-CoV-2 in a nasopharyngeal swab specimen collected from individuals suspected of COVID-19 by their healthcare provider. This test has not been Food and Drug Administration (FDA) cleared or approved and has been authorized by FDA under an Emergency Use Authorization (EUA). This EUA will be effective until the declaration that circumstances exist justifying the authorization of the emergency use of in vitro diagnostic tests for detection and/or diagnosis of COVID-19 is terminated under Section 564(b)(2) of the Act or the EUA is revoked under Section 564(g) of the Act. Fact Sheet for Healthcare Providers: https://www.[employer].com/Documents/Xpert%20Xpre ss%20SARS%20CoV-2/Fact%20Sheets/3023802%20SAR S-COV-2%20HEALTHCARE%20PROVIDERS%20FACT%20SHEE T.pdf Fact Sheet for Healthcare Patients: https://www.[employer]Now.com/Documents/Xpert%20Xpre ss%20SARS%20CoV-2/Fact%20Sheets/3023801%20SAR S-COV-2%20PATIENT%20FACT%20SHEET.pdf Performing Laboratory: [address] [place] [address] Performing Organization Address City/State/Zipcode Phone Number [facility] [address] [place] [address] CENTER PERIPHERAL VASCULAR REPORT - SCAN (02/22/2019 9:22 PM TAX SENIOR ASSOCIATE) Narrative Performed At This result has an attachment that is no t available. ECHOCARDIOGRAM REPORT - SCAN (02/21/2019 9:21 PM TAX SENIOR ASSOCIATE) Narrative Performed At This result has an attachment that is no t available. NM myocardial perfusion SPECT,pharm(Lexiscan) (02/21/2019 2:47 PM TAX SENIOR ASSOCIATE) Specimen Narrative Performed At FINAL REPORT GE RIS PROCEDURE: MYOCARDIAL PERFUSION SPECT IM AGING (Rest/Stress) CPT CODE: 40599 INDICATION: Renal transplant evaluation, hypertension, shortness of [...] prior study for compariso n. Signed: Jefferson aDrnell MD Report Verified Date/Time:02/21/2019 15:54:30 Reading Location: [address] Reading Room Procedure Note Interface, External Ris In - 02/21/2019 3:56 PM TAX SENIOR ASSOCIATE FINAL REPORT PROCEDURE: MYOCARDIAL PERFUSION SPECT IM AGING (Rest/Stress) CPT CODE: 31487 INDICATION: Renal transplant evaluation, hypertension, shortness of [...] Verified Date/Time: 02/21/2019 1 5:54:30 Reading Location: [address] Reading Room Performing Organization Address City/State/Zipcode Phone Number [facility] Treadmill tolerance(Non-Nuclear Treadmill) (02/21/2019 1:28 PM TAX SENIOR ASSOCIATE) Specimen Narrative Performed At Protocol Name CM GORDILLO Time In Exercise Phase 00:01:00 Max. Systolic [...] 2:42:47 PM Confirmed by MD GONZALEZ JORGE ([id number]) on 03/18/2019 12: 21:22 PM Procedure Note Interface, External Ris In - 03/18/2019 12:21 PM TAX SENIOR ASSOCIATE Protocol Name CM Time In Exercise Phase [...] 2:42:47 PM Confirmed by MD GONZALEZ JORGE ([id number]) on 03/18/2019 12:21:22 PM Performing Organization Address City/State/[facility] Phone Number GE MUSE ECG 12 lead (02/21/2019 1:04 PM TAX SENIOR ASSOCIATE)Only the most recent of2 resultswithin the time period is included. Specimen Narrative Performed At Ventricular Rate 60 BPM GE MUSE Atrial Rate 60 BPM P-R Interval 158 ms QRS Duration 92 ms Q-T Interval 474 ms QTC Calculation(Bazett) 474 ms P [place] 54 degrees R [place] 24 degrees T [place] -74 degrees Normal sinus rhythm Left atrial enlargement T wave abnormality, consider inferolater al ischemia Prolonged QT Abnormal ECG Confirmed by MD Lyons Roberto ([id number]) on 02/03 2:27:14 PM Procedure Note Interface, External Ris In - 02/21/2019 2:27 PM TAX SENIOR ASSOCIATE Ventricular Rate 60 BPM Atrial Rate 60 BPM P-R Interval 158 ms QRS Duration 92 ms Q-T Interval 474 ms QTC Calculation(Bazett) 474 ms P [place] 54 degrees R [place] 24 degrees T [place] -74 degrees Normal sinus rhythm Left atrial enlargement T wave abnormality, consider inferolater al ischemia Prolonged QT Abnormal ECG Confirmed by MD Serena, Ronni ([id number]) on 02/21/2019 2:27:14 PM Performing Organization Address City/State/Zipcode Phone Number [facility] 2D Echo W/Doppler(CW/PW/Color) (02/21/2019 10:02 AM TAX SENIOR ASSOCIATE) Ejection Fraction [facility] ECHO HEAR TLAB [facility] Specimen Narrative Performed At Transthoracic Echocardiography Report (T TE) [facility] Demographics Patient Name Maury URBANO of Study 02/21/2019 SHO [id number] Gender Male Visit Number [id number] Marissa sy [id number] Room Number Number Date of Birth1955 Referring Physician Emilio Black MD Age63 year(s) Biomedical Engineering Internship Dariel Patel, CS Savanna issa MD Physician Procedure Type of Study [...] External Ris In - 02/21/2019 12:49 PM TAX SENIOR ASSOCIATE Transthoracic Echocardiography Report (TTE) Demographics Patient Name FIDEL URBANO Date of Study 02/21/2019 SHO Gende r Male Visit Number [id number] Race Other Room Number Number Date of 1955 Refer ring Physician Emilio Black MD Age 63 year(s) Sonog paramjit Avila Quality Assurance Project Manager Falguni Patel, GISSELLE Inter arpan Pendleton MD Physi joshua Procedure Type of [...] l/min/m^2 Performing Organization Address City/State/Zipcode Phone Number [facility] ECHO HEARTLAB [facility] Carotid doppler bilateral (02/21/2019 9:30 AM TAX SENIOR ASSOCIATE) Ejection Fraction [facility] ECHO HEAR TLAB [facility] Specimen Impressions Performed At Right Impression [facility] ECHO HEARTLAB [facility] 1. There is <50% diameter reduction (approximately [...] Additional Measurements:ICAPSV/CCAPSV 1.52.ICAEDV/CCAEDV 3.12. Narrative Performed At LAB - Carotid Duplex Study [facility] ECHO HEARTLAB [facility] Demographics Patient Name Maury URBANO of Study02/21/2019 ULYSSES STEWART [id number] Visit Number [id number] Gender Male Accession Number [id number] Date of Birth1955 Jason Black MD Room Number Physician SonographerKatelyn Morejon Interpreting Savanah Vegas , RN, Kelli CABALLERO Procedure Type of Study: [...] External Ris In - 02/22/2019 11:08 AM TAX SENIOR ASSOCIATE PV LAB - Carotid Duplex Study Demographics Patient Name FIDEL URBANO ate of Study 02/21/2019 SHO A ge 63 Visit Number [id number] G moira Male Accession Number [id number] D ate of 1955 Referring Emilio Black MD R olexie Number Physician Biomedical Engineering Internship Katelyn Morejon I nterpreting Savanah Vegas, RN, RVT Vianey del real MD Procedure Type of Study: Cerebral: Carotid, CAROTID [...] Measurements:ICAPSV/CCAPS V 1.52.ICAEDV/CCAEDV 3.12. Performing Organization Address City/State/[facility] Phone Number [facility] ECHO HEARTLAB [facility] after 10/03/2018 Insurance Payer Benefit Plan / Group Subscriber ID Type Phone A ddress [employer] NON-UNITED [facility] xxxxxxxxx Transplants NETWK - MEDICARE MGD REPL CARE TEXANPLUS TEXANPLUS HMO ALL xxxxxxxxx Maps Contracted [employer] MEDICARE MGD WELL[employer] MAPS xxxxxxxxx CARE (Home) [place] [address] Advance Directives For more information, please contact:[address] [phone] Code Status Date Activated Date Inactivated Comments Full Code 03/30/2016 2:10 AM 04/11/2016 8:24 PM This code status was determined by: Patient Full Code 03/31/2015 10:13 AM 04/01/2015 12:55 AM This code status was determined by: Patient
--- OUTSIDE RECORDS SUMMARY | 2019-10-04 10:25 | XMS REPORT | Continuity of Care Document ---
:1955 Author Organization [facility] t Address [address] [place] [address] Care Team Providers Name Role Phone Moiz [...] Effective Expiration Source Type Number Date Date [facility] NETWK - xxxxxxxxx [facility] MEDICARE MGD CAREOPTUM [facility] Medical REPLxxxxxxxxxTransplants Center TEXANPLUSTEXANPLUS [facility] xxxxxxxxx I St ALLxxxxxxxxxMaps Contracted [facility] WELLCARE MEDICARE MGD xxxxxxxxx [facility] Problems Condition Condition Condition Status Onset Resolution [...] Overweight 00 e Iron Iron Problem Active [facility] deficiency Deficiency 5-18 Fa alexia anemia [...] e Type 2 Type 2 Problem Active [facility] diabetes Diabetes 5-18 Family mellitus Mellitus 00:00: Practi c with with 00 e multiple Multiple complicati Complicati ons ons Chronic Chronic Problem Active [facility] hepatitis Hepatitis 07 Fami ly C [...] Disease Active [facility] diabetes diabetes 03-29 [facility] - mellitus mellitus 00:00: Medica l with renal with renal 00 Ce nter complicati complicati on on Chronic Chronic Disease Active [facility] hepatitis hepatitis 5-19 Assessguillaume Moreno ukes - [...] at this time. Immunity Immunity Disease Active [facility] S t status status 5-19 Assessguillaume Muñiz [...] today. ESRD (end ESRD (end Disease Active [facility] stage stage 5-19 Assessmen Mary Kay [...] Last [facility] syndrome syndrome 5-19 Assessmen Susie es - 00:00: t & Plan: Medical 00 With T2DM Center and hypertens ion, he meets criteria for metabolic syndrome. Managemen t per his PCP. Allergies, Adverse Reactions, Alerts Allergy Allergy Status Severity Reaction(s) Onset Inactive Treating Comm ents Source Name Type Date Date Clinician Crab Drug Active Itching Itching [facility] Allergy - [facility] mouth, [facility] - 00:00: [facility] Medical 00 okay with Center shrimp/cr awfish Social History Social Habit Start Date Stop Date Quantity Comments Source Sex Assigned At [facility] Alcohol Comment 2015-07-23 2015-07-23 Quit drinking [facility] - 00:00:00 00:00:00 2005; social Medical [facility] er drinker Tobacco Comment 2015-03-31 2015-03-31 Quit 2006 [facility] - 00:00:00 00:00:00 [facility] Smoking Status Start Date Stop Date Source Light Tobacco Smoker [facility] Practice Former smoker 2018-06-05 00:00:00 2018-06-05 00:00:00 [facility] Medications Ordered Filled Start Stop Current Ordering Indication Dosage Frequency Signature Comments Components Source Medication Medication Date Date Medication? Clinician (SIG) Name Name aspirin 81 Yes 81mg QD Take [address] MG EC -02 by mouth [facility] - tablet 10:20: daily. Medical [address] [place] amLODIPine Yes 10mg Take [address] (NORVASC) 402 by mouth. [facility] - 10 MG 10:19: Medical tablet [place] lactulose Yes TAKE 20 [facility] t (CHRONULAC) 3-26 GRAM [facility] - 10 gram/15 00:00: (30ML) BY Tn dical mL solution 00 MOUTH ONCE Ce nter A DAY NEEDED zolpidem Yes TAKE [address] (AMBIEN) 10 2-21 TABLET [facility] - mg tablet 00:00: ORALLY AT Med ical 00 BEDTIME Center NEEDED clopidogrel 2017-03 Yes 75mg QD Take [address] (PLAVIX) 75 06 by mouth Luke s - mg tablet 15:17: daily. Medica l [address] [place] gabapentin 2017-03 Yes 100mg Q.5D Take [address] (NEURONTIN) 1-06 mg by [facility] - 300 MG 15:14: mouth 2 Medical capsule 37 (two) Center times daily . atorvastati 2017-0 Yes 20mg Take [address] n (LIPITOR) 4-26 by mouth. Susie es - 20 MG 00:00: Medical tablet 00 Center hydrALAZINE 2016-0 Yes 50mg Q.[id number] Take [address] (APRESOLINE 2-06 [id number] tablets [facility] - ) 25 MG 00:00: [...] route. carvedilol carvedilol No 1 BID carvedilol [facility] 6.25 mg 6.25 mg 6.25 mg Family tablet Take tablet Take tablet Practic 1 tablet 1 tablet Take 1 e twice a day twice a day tablet by oral by oral twice a route. route. day by oral route. clonidine clonidine No 1 BID clonidine [facility] HCl 0.2 mg HCl 0.2 mg HCl 0.2 mg Family tablet Take tablet Take tablet Practic 1 tablet 1 tablet Take 1 e twice a day twice a day tablet by oral by oral twice a route. route. day by oral route. gabapentin gabapentin No 1capsul TID gabapentin [facility] 100 mg 100 mg e(s) 100 mg Family capsule capsule capsule Practi c Take 1 Take 1 Take 1 e capsule 3 capsule 3 capsule 3 times a day times a day times a by oral by oral day by route. route. oral route. lactulose lactulose No 15mL Q1D lactulose [facility] 10 gram/15 10 gram/15 10 gram/15 Family mL (15 mL) mL (15 mL) mL (15 mL) Practic oral oral oral e solution solution solution Take 15 mL Take 15 mL Take 15 mL every day every day every day by oral by oral by oral route as route as route as directed. directed. directed. Raysal 10 Raysal 10 No 1 Q4H Raysal 10 Milo tiffanie mg-325 mg mg-325 mg mg-325 mg Family tablet Take tablet Take tablet Practic 1 tablet 1 tablet Take 1 e every 4 every 4 tablet hours by hours by every 4 oral route oral route hours by as needed. as needed. oral route as needed. pravastatin pravastatin No 1 Q1D pravastati [facility] 40 mg 40 mg n 40 mg Family tablet Take tablet Take tablet Practic 1 tablet 1 tablet Take 1 e every day every day tablet by oral by oral every day route. route. by oral route. Renvela 800 Renvela 800 No 1 TID Renvela [facility] mg tablet mg tablet 800 mg Fam traci Take 1 Take 1 tablet Practic tablet 3 tablet 3 Take 1 e times a day times a day tablet 3 by oral by oral times a route. route. day by oral route. Sensipar 30 Sensipar 30 No 1 Q1D Sensipar [facility] mg tablet mg tablet 30 mg Fami ly Take 1 Take 1 tablet Practic tablet tablet Take 1 e every day every day tablet by oral by oral every day route. route. by oral route. sildenafil sildenafil No 1 Q1D sildenafil [facility] 100 mg 100 mg 100 mg Family tablet Take tablet Take tablet Practic 1 tablet 1 tablet Take 1 e every day every day tablet by oral by oral every day route. route. by oral route. tizanidine tizanidine No 1 Q6H tizanidine [facility] 4 mg tablet 4 mg tablet [...] Source Name Name pneumococcal pneumococcal 2019-01-04 Completed [facility] alexia conjugate PCV 13 conjugate PCV 13 00:00:00 Pr actice influenza, influenza, 2019-01-04 Completed [facility] injectable, injectable, 00:00:00 Practice quadrivalent quadrivalent PPD Test 2016-04-03 Completed [facility] - 00:00:00 [facility] Vital Signs Vital Name Observation Time Observation Value Comments Source Height 2019-09-03 00:00:00 66 [in_i] [facility] Height 2019-07-23 00:00:00 66 [in_i] [facility] BMI (Body Mass Index) 2019-07-23 00:00:00 25.8 kg/m2 [facility] Body Weight 2019-07-23 00:00:00 160 [lb_av] [facility] Systolic blood 2019-02-21 13:35:00 140 mm[Hg] [facility] Diastolic blood 2019-02-21 13:35:00 42 mm[Hg] [facility] Heart rate 2019-02-21 13:35:00 74 /min [facility] Respiratory rate 2019-02-21 13:35:00 20 /min [facility] Body height 2019-02-21 11:19:00 167.6 cm [facility] Body weight Measured 2019-02-21 11:19:00 74.844 kg [facility] BMI 2019-02-21 11:19:00 26.63 kg/m2 [facility] St Tiffanie kike [facility] Procedures Procedure Date / Time Performing Clinician Source Performed SARS-COV2/RT-PCR ([facility] & 2019-09-30 20:00:[address] Lumaurizio - REF LABS) [facility] PERIPHERAL VASCULAR REPORT 2019-02-22 21:22:39 Provider, Default IRMA Valdes Luciakes - - SCAN Scanning [facility] ECHOCARDIOGRAM REPORT - 2019-02-21 21:21:31 Provider, Default [facility] - SCAN Scanning [facility] NM MYOCARDIAL PERFUSION 2019-02-21 14:47:[address] [facility] - SPECT, PHARM(LEXISCAN) Medical C enter TREADMILL 2019-02-21 13:28:08 Unknown, Hl7 Doctor [facility] Tiffanie rust - TOLERANCE(NON-NUCLEAR Medical Ce nter TREADMILL) ECG 12-LEAD 2019-02-21 13:04:33 Unknown, 7 Doctor [facility] St L kike - [facility] ECG 12-LEAD 2019-02-21 13:03:22 Unknown, 7 [facility] [address] L [facility] 2D ECHO W/ DOPPLER 2019-02-21 10:02:[address] [facility] - (CW/PW/COLOR) [facility] CAROTID DOPPLER BILATERAL 2019-02-21 09:30:00 Wayne Jhaveri [facility] maurizio [facility] Plan of Care Planned Activity Planned Date Details Comments Source Future Scheduled Test 2019-11-[address] [facility] - 00:00:00 (#1) [code = [facility] INFLUENZA VACCINE (#1)] Future Scheduled Test 2019-03-30 Lipid panel [facility] - 00:00:00 (procedure) [code = [facility] 42270537] Future Scheduled Test 2016-09-[address] [facility] - 00:00:00 [facility] (procedure) [code = 26880498] Future Scheduled Test 2016-06-11 [facility] - 00[facility]00 [facility] colon (procedure) [code = 473866864] Future Scheduled Test 2015-03-[address] [facility] - 00:00:00 WELLNESS (YEAR 2 or Medical Center FIRST YEAR if no IPPE) [code = MEDICARE ANNUAL WELLNESS (YEAR 2 or FIRST YEAR if no IPPE)] Future Scheduled Test 1967-08-29 DIABETIC EYE EXAM [facility] - 00:00:00 [code = DIABETIC EYE Medical Center EXAM] Future Scheduled Test 1967-08-29 Diabetic foot IRMA S milan Muñiz - 00:00:00 examination Medical Center (regime/therapy) [code = 740423750] Future Scheduled Test 1967-08-29 Urine screening for IRMA Sanchez - 00:00:00 protein (procedure) Medical Center [code = 486482766] Future Scheduled Test 1963-08-29 PNEUMOCOCCAL VACCINE IRMA Sanchez - 00:00:00 2-64 YEARS AT RISK (1 Medica l Center of 3 - PCV13) [code = PNEUMOCOCCAL VACCINE 2-64 YEARS AT RISK (1 of 3 - PCV13)] Future Appointment 2019-11-03 Veronica RosaJoe, V illage Family 00:00:00 Sj Madera; [address] [address] Encounters Start End Encounter Admission Attending Care Care Encounter Source Date/Time Date/Time Type Type Clinicians Facility Department ID 2019-09-03 2019-09-03 Veronica [facility] [place] - [id number] V illage 00:00:00 00:00:00 BriseydaEvette [facility] Clayton elkins POOLROOM/POOLHALL MANAGER: Medical - Pracjonathan crowley 92Sarah [email or web address] e [facility], [place] [address], [place] [address] , Ph. 2019-07-23 2019-07-23 Veronica [facility] [place] - [id number] V illage 00:00:00 00:00:00 BriseydaJoe [facility] POOLROOM/POOLHALL MANAGER: Medical - Practi keo [address]Sarah [email or web address], [place] [address], [place] [address] , Ph. Results Test Description Test Time Test Comments Results Result Comments Source SARS-CoV2/RT-PCR ([facility] & Ref Labs) 2019-10-01 04:23:00 Test Item Value Reference Range Interpretation Comme nts SARS-COV2/RT-PCR (test code = Negative Not Detected, 52322-0) Negative, See external report for linked test SARS-COV-2 [facility] (test code = 48831-8) STEVEN (test code = STEVEN) Negative results do not preclude SARS-CoV-2 infection and should not be used as [...] of the Act. Fact Sheet for Healthcare Providers:https://www.[employer]/Documents/Xpert%20Xpress %20SARS%20CoV-2/Fact%20Sheets /302-3802%54POGN-ZXD-5%20HEAL THCARE%20PROVIDERS%20FACT%20S HEET.pdf Fact Sheet for Healthcare Patients:https://www.[employer]/Documents/Xpert%20Xpress% 20SARS%20CoV-2/Fact%20Sheets/ 302-3801%71RNNK-JOQ-3%20PATIE NT%20FACT%20SHEET.pdf Performing Laboratory:[facility], [place] [address] [place], [place] [address]ARS-COV2/RT-PCR ([facility] & REF LABS)2019-10-01 04:23:00 Test Item Value Reference Range Interpretation Comments SARS-COV2/RT-PCR (test code Negative Not Detected, Negative, = [id number]) See external report for linked test SARS-COV-[address] [facility] (test code = 9304952) Negative results do not preclude SARS-CoV-2 infection and should not be used as the sole basis for patient management decisions. Negative results must be combined with clinical observations, patient history, and epidemiological information. A false negative result may occur if a specimen is improperly collected, transported or handled.The limit of detection for this assay is 250 copies/mL.This SARS CoV-2 test is a rapid, real-time RT-PCR test intended for the qualitative detection of nucleic acid from SARS-CoV-2 in a nasopharyngeal swab specimen collected from individuals suspected of COVID-19 by their healthcare provider.This test has not been Food and Drug [...] is revoked under Section 564(g) of the Act.Fact Sheet for Healthcare Pro viders:https://www.[employer]/Documents/Xpert%20Xpress%20SARS%20CoV-2/Fact%20Sh eets/3023802%65WMFF-JTS-6%20HEALTHCARE%20PROVIDERS%20FACT%20SHEET.pdfFact Sheet for Healthcare Patients:https://www.[employer]/Documents/Xpert%20Xpress%20SARS%20CoV-2/Fact%20Sheets/3023801%20SARS-COV -2%20PATIENT%20FACT%20SHEET.pdfPerforming Laboratory:[facility] [place], [place] [address]Edhyjlovx tolerance(Non-Nuclear Treadmill)2019-03-18 12:21:27Interface, External Ris In - 03/18/2019 12:21 PM CSTProtocol Name REGADENOSON Time In Exercise Phase00:01:00 Max. Systolic BP 154 mmHgMax Diastolic BP 38 mmHgMax Heart [...] MD GONZALEZ JORGE ([id number]) on 03/18/2019 12:21:22 [facility] [id number] 11:08:18Ejection FractionSLEH ECHO HEARTLAB MKCKESSON CPACSRight Impression1. There is <50% diameter reduc tion (approximately 21% by 2-D measurement)in the internal carotid artery with a peak velocity of 116/21 cm/sec andheterogeneous plaque.2. There is no stenosis in the external carotid artery.3. There is non-occluding plaque in the common carotid artery.4. The vertebral artery flow is antegrade .5. Thesubclavian artery is within normal limits where visualized.Left Impression1. There is 50% or greaterdiameter reduction (approximately 40% by 2-Dmeasurement) in the internal carotid artery with a peak velocity of 192/52cm/sec and heterogeneous plaque.2. Technically difficult to measure plaque due to calcification howevervelocity measurements suggest a 50-69% diameter reduction.3. There is no stenosisin the external carotid artery.3. There is non-occluding plaque in the common carotid artery.4. The vertebral artery flow is antegrade .5. The subclavian artery is within normal limits where visualized. Conclusions Summary Carotid duplex scanning and color flow imaging were performed bilaterally. The arteries were adequately visualized. The right internal carotid artery had <50% hemodynamicallyinsignificant stenosis (approximately 21% by 2-D measurement) with heterogeneous plaque. The left internal carotid artery had 50% or greater diameter reduction with calcified plaque. The velocity measur ement indicates a 50-69% diameter reduction. The vertebral artery flow was antegrade bilaterally. Signature Velocities are measured in cm/s ; Diameters are measured in cm Carotid Right Measurements+ +----+----+-----+ + +---- -------+!Location !PSV !EDV !Angle!%Stenosis 2D!%Stenosis Doppler!Tortuosity !+ +----+----+-----+ + + +!Prox CCA !83.8!16.4!60 ! ! ! !+ +----+----+-----+ + + +!Di st CCA !94.4!21.1!60 ! ! ! !+ +----+----+----- + + + +!Prox ICA !116 !21.2!60 !% !<50% ! !+ +----+----+-----+ + + +!Di st ICA !154 !36.9!36 ! ! ! !+ +----+----+- ----+ + + +!Prox ECA !219 !48.5!60 ! ! ! !+ +----+----+-----+ + + +!V ertebral !45.1!12.3!48 ! ! ! !+ +----+----+ -----+ + + +!Prox Subclavian!145 !21.5!48 ! ! ! !+ +----+----+-----+ + + + - There is antegrade vertebral flow noted on the right side. - Additional Measurements:ICAPSV/CCAPSV 1.63.ICAEDV/CCAEDV 2.25. Carotid Left Measurements+ +----+----+-----+ +- + +!Location !PSV !EDV !Angle!%Stenosis 2D!%Stenosis Doppler!Tortuosity !+ +----+----+-----+ + + +!Pr ox CCA !96.1!17.6!48 ! ! ! !+ +----+----+-----+ + + +!Dist CCA !126 !26.5!60 ! ! ! !+ +----+----+-----+ + + +!Pr ox ICA !191 !55 !60 !40% !50-69% ! !+ +----+----+-----+ + + +!Dist ICA !128 !39.3!60 ! ! ! !+ +----+----+-----+ + + +!Pr ox ECA !165 !33.4!60 ! ! ! !+ +----+----+-----+ -+ + +!Vertebral !48.3!16.1!60 ! ! ! !+ +----+----+-----+ + + +!Pr ox Subclavian!170 !54.8!48 ! ! ! !+ +----+----+-----+ + + + - There is antegrade vertebral flow noted on the left side. - Additional Measurements:ICAPSV/CCAPSV 1.52.ICAEDV/CCAEDV 3.12. Interface, External Ris In - 02/22/2019 11:08 AM CSTPV LAB - Carotid Duplex Study Demographics Patient Name FIDEL LYNCH Date of Study 02/21/2019 SHO Age 63 Visit Number [id number] Gender Male Accession Number [id number] Date of 1955 Referring Emilio Black MD Room Number Physician Shank Cutter Katelyn Morejon Interpreting Savanah Vegas, RN, RVT Physician ProcedureType of Study: Cerebral: Carotid, CAROTID DOPPLER, BILATERAL. Indications for Study:Pre-op for renal transplant.Patient Status:Routine.Study Location:Vascular Lab.Technical Quality:Adequate visualization.Risk FactorsHistory of Disease+---------+----+--------- +!Diagnosis!Date!Comments !+---------+----+ +!Other ! !Former Smoker, Chronic HEP-C, ESRD, HTN, DM !+---------+----+-------- +!Other ! !Left Arm AVF !+---------+----+ +ImpressionsRight Impression1. There is <50% diameter reduction (approximately 21% by 2-D measurement)in the internal carotid artery with a peak velocity of 116/21 cm/sec andheterogeneous plaque.2.There is no stenosis in the external carotid artery.3. There is non-occluding plaque in the common carotid artery.4. The vertebral artery flow is antegrade .5. The subclavian artery is within normal limits where visualized.Left Impression1. There is 50% or greater diameter reduction (approximately 40%by 2-Dmeasurement) in the internal carotid artery with a peak velocity of 192/52cm/sec and heterogeneous plaque.2. Technically difficult to measure plaque due to calcification howevervelocity measurements suggest a 50-69% diameter reduction.3. There is no stenosis in the external carotid artery.3. There is non-occluding plaque in the common carotid artery.4. The vertebral artery flow is antegrade .5.The subclavian artery is within normal limits where visualized. Conclusions Summary Carotid duplex scanning and color flow imaging were performed bilaterally. The arteries were adequately visualized.The right internal carotid artery had <50% hemodynamically insignificant stenosis (approximately 21% by 2-D measurement) with heterogeneous plaque. The left internal carotid artery had 50% or greater diameter reduction with calcified plaque. The velocity measurement indicates a 50-69% diameter reduction. The vertebral artery flow was antegrade bilaterally. Signature Velocities are measured in cm/s ; Diameters are measured in cmCarotid Right Measurements+ +----+- ---+-----+ + + +!Location !PSV !EDV !Angle!%Stenosis 2D!%Stenosis Doppler!Tortuosity !+ +----+----+-----+ + +--------- --+!Prox CCA !83.8!16.4!60 ! ! ! !+ +----+ ----+-----+ + + +!Dist CCA !94.4!21.1!60 ! ! ! !+ +----+----+-----+ + +-------- ---+!Prox ICA !116 !21.2!60 !% !<50% ! !+ +- ---+----+-----+ + + +!Dist ICA !154 !36.9!36 ! ! ! !+ +----+----+-----+ + +---- -------+!Prox ECA !219 !48.5!60 ! ! ! !+ + ----+----+-----+ + + +!Vertebral !45.1!12.3!48 ! ! ! !+ +----+----+-----+ + +--- --------+!Prox Subclavian!145 !21.5!48 ! ! ! !+ +----+----+-----+ + + + - There is antegrade vertebral flow noted on the right side. - Additional Measurements:ICAPSV/CCAPSV 1.63.ICAEDV/CCAEDV 2.25.Carotid Left M easurements+ +----+----+-----+ + +----- ------+!Location !PSV !EDV !Angle!%Stenosis 2D!%Stenosis Doppler!Tortuosity !+ +----+----+-----+------ ------+ + +!Prox CCA !96.1!17.6!48 ! ! ! !+ +----+----+-----+ + + +!Di st CCA !126 !26.5!60 ! ! ! !+ +----+----+-----+----- -------+ + +!Prox ICA !191 !55 !60 !40% !50-69%! !+ +----+----+-----+ + + +!Di st ICA !128 !39.3!60 ! ! ! !+ +----+----+-----+---- --------+ + +!Prox ECA !165 !33.4!60 ! ! ! !+ +----+----+-----+ + + +!Ve rtebral !48.3!16.1!60 ! ! ! !+ +----+----+-----+--- ---------+ + +!Prox Subclavian!170 !54.8!48 ! ! ! !+ +----+----+-----+ + + + - Thereis antegrade vertebral flow noted on the left side. - Additional Measurements:ICAPSV/CCAPSV 1.52.ICAEDV/CCAEDV 3.12.[facility] MYOCARD IMAGING, MULTI, PHARM, [id number] 15:54:00Referring: Dr. Schultz [facility]EDURE: MYOCARDIAL PERFUSION SPECT IMAGING (Rest/Stress)CPT CODE: 97994 INDICATION: Renal transplant evaluation, hypertension, shortness of breath CARDIOVASCULAR PROFILE:CAD History: Known CADSymptoms: Shortness of breathRisk Factors: Diabetes, hypertension, dyslipidemia, tobacco use, early family history CADBMI: 27.9Medications: Hydralazine, clonidine, Coreg, pravastatin, lisinopril STRESS PROTOCOL:Pharmacologic stress was achieved with a 10-second intravenousinfusion of regadenoson 0.4 mg. The radiopharmaceutical was administered 30 seconds after the start of the regadenoson infusion. IMAGING PROTOCOL:10.2 mCi of Tc-99m sestamibi was injected intravenouslyat rest, and non-gated SPECT images were obtained. [...] nausea and vomiting, headache, flushing, dry mouth ( treatment not required).Perfusion: Mild, fixed inferior wall perfusion defect.Wall Motion: Normal LVVolume: Not significantly changed from rest. IMPRESSION:1. Abnormal study.2. Abnormal myocardial perfusion. Mild, fixed inferior wall perfusion defect.3. Normal stress LVEF.4. Normal extracardiac tracer distribution.5. There is no prior study for comparison. Signed: Jefferson Darnell Verified Date/Time: 02/21/2019 15:54:30 Reading Location: [address] Reading Room NM myocardial perfusion SPECT,pharm(Lexiscan) 2019-02-21 15:54:00Interface, External Ris In - 02/21/2019 3:56 PM CSTFINAL REPORT PROCEDURE: MYOCARDIAL PERFUSION SPECT IMAGING (Rest/Stress)CPT CODE: 75327 INDICATION: Renal transplant evaluation, hypertension, shortness of breath CARDIOVASCULAR PROFILE:CAD History: Known CADSymptoms: Shortnessof breathRisk Factors: Diabetes, hypertension, dyslipidemia, tobacco use, [...] MPHR)BP: 154/38 mmHgPrelim. EKG: No ischemic changes.Symptoms: Dyspnea,nausea and vomiting, headache, flushing, dry mouth (treatment not required).Perfusion: Mild, fixed inferior wall perfusion defect.Wall Motion: Normal LV Volume: Not significantly changed from rest. IMPR ESSION:1. Abnormal study.2. Abnormal myocardial perfusion. Mild, fixed inferior wall perfusion defect.3. Normal stress LVEF.4. Normal extracardiac tracer distribution.5. There is no prior study for comparison. Signed: Jefferson Darnell Verified Date/Time: 02/21/2019 15:54:30 Reading Location: [address] Reading Room [facility] 12 [id number] 14:27:15Interface, External Ris In - 02/21/2019 2:27 PM CSTVentricular Rate 60 BPMAtrial Rate 60 BPMP-R Interval 158 msQRS Duration 92 msQ-T Interval 474 msQTC Calculation(Bazett) 474 msP [place] 54 degreesR [place] 24 degreesT [place] -74 degreesNormal sinus rhythmLeft atrial enlargementT wave abnormality, consider i nferolateral ischemiaProlonged QTAbnormal ECGConfirmed by MD Serena, Ronni ([id number]) on 02/21/2019 2:27:14 [facility] W/Doppler(CW/PW/Color)2019-02-21 12:49:06Ejection FractionSLEH ECHO HEARTLAB MKCKESSON CPACSInterface, External Ris In - 02/21/2019 12:49 PM CSTTransthoracic Echocardiography Report (TTE) Demographics Patient Name FIDEL LYNCH Date of Study 02/21/2019 SHO Gender Male Visit Number [id number] Race Other Room Number Number Date of 1955 Referring Physician Emilio Black MD Age 63 year(s) Shank Cutter Dariel Avila Para Operator Falguni Patel, [facility] Interpreting Bry Pendleton MD Physician Procedure Type [...] chamber size and systolic function are within normallimits. RA size is normal. Unable to estimate [...] left ventricle is chamber size (by vol index)is mildly enlarged (male - LVED 75- 89ml/m2). No evidence of LV hypertrophy. All of [...] of right and left coronary cusps. There ismild to moderate calcification of the cusp. Mild [...] LVOT CO: 5.99 l/min LVOT CI: 3.26 l/min/m^2[id number]:11:00 Test Item Value Reference Range Interpretation Comments PROSTATE SPECIFIC ANTIGEN (BEAKER) 0.8 ng/mL 0.0-4.0 (test code = 844) HEPATITIS B SURFACE [id number] 17:11:00 Test Item Value Reference Range Interpretation Comments HEPATITIS B SURFACE ANTIBODY 612.9 mIU/mL <8.0 H (BEAKER) (test code = 647) PROTHROMBIN [id number] 14:59:00 Test Item Value Reference Range Interpretation Comments PROTIME (BEAKER) (test code = 15.6 seconds 11.7-14.7 H 759) INR (BEAKER) (test code = 370) 1.2 <=5.9 RECOMMENDED COUMADIN/WARFARIN INR THERAPY RANGESSTANDARD DOSE: 2.0 - 3.0 Includes: PROPHYLAXIS forvenous thrombosis, systemic embolization; TREATMENT for venous thrombosis and/or pulmonary embolus.HIGH RISK: Target INR is 2.5-3.5 for patients with mechanical heart valves.BASIC METABOLIC [id number] 14:58:00 Test Item Value Reference Range Interpretation [...] APPLICABLE FOR DIALYSIS PATIEN TS. HEPATIC FUNCTION [id number] 14:53:00 Test Item Value Reference Range Interpretation [...] 6-55 347) CBC W/PLT COUNT & AUTO [id number] 14:19:00 Test Item Value Reference Range Interpretation [...] = 2801) FLOW PRA CLASS I AND [id number] 12:02:00 Test Item Value Reference Range Interpretation Comments DATE OF SERUM (BEAKER) 9110312 (test code = 2289) SERUM # (BEAKER) (test 237396 code = 2290) FLOW PRA CLASS I AND II See Scanned Report (test code = 2421) HEPATITIS B SURFACE [id number] 13:18:00 Test Item Value Reference Range Interpretation Comments HEPATITIS B SURFACE ANTIBODY < mIU/mL <8.0 (BEAKER) (test code = 647) [id number] 13:08:00 Test Item Value Reference Range Interpretation Comments PROSTATE SPECIFIC ANTIGEN (BEAKER) 0.9 ng/mL 0.0-4.0 (test code = 844) FLOW PRA CLASS I AND [id number] 16:00:00 Test Item Value Reference Range Interpretation Comments DATE OF SERUM (BEAKER) 507699 (test code = 2289) SERUM # (BEAKER) (test 352516 code = 2290) FLOW PRA CLASS I AND II See Scanned Report (test code = 2421) BASIC METABOLIC [id number] 15:51:00 Test Item Value Reference Range Interpretation [...] APPLICABLE FOR DIALYSIS PATIEN TS. HEPATIC FUNCTION [id number] 15:48:00 Test Item Value Reference Range Interpretation [...] 6-55 347) CBC W/PLT COUNT & AUTO [id number] 15:11:00 Test Item Value Reference Range Interpretation [...] (test code = 417) 0.00AFB CULTURE + [id number] 19:58:00 Test Item Value Reference Range Interpretation Comments CULTURE (BEAKER) (test No acid-fast bacilli code = 1095) isolated in 42 days AFB SMEAR (BEAKER) No acid fast bacilli (test code = 994) seen AFB CULTURE + [id number] 19:58:00 Test Item Value Reference Range Interpretation Comments CULTURE (BEAKER) (test No acid-fast bacilli code = 1095) isolated in 42 days AFB SMEAR (BEAKER) No acid fast bacilli (test code = 994) seen AFB CULTURE + [id number] 18:21:00 Test Item Value Reference Range Interpretation Comments CULTURE (BEAKER) (test No acid-fast bacilli code = 1095) isolated in 42 days AFB SMEAR (BEAKER) No acid fast bacilli (test code = 994) seen POCT-GLUCOSE [id number] 10:30:00 Test Item Value Reference Range Interpretation Comments POC-GLUCOSE METER 468 mg/dL 70-110 HH TESTED AT [place] [address] (BEAKER) (test code = [place] 1538) [address] CREATINE KINASE (CK), TOTAL AND [id number] 08:31:00 Test Item Value Reference Range Interpretation Comments CREATINE KINASE TOTAL (BEAKER) 42 U/L 29-200 (test code = 380) CREATINE KINASE-MB (BEAKER) (test 2.3 ng/mL 0.0-6.6 code = 750) CREATINE KINASE-MB INDEX (BEAKER) 5.5 % (test code = 395) Effective 01/21/2014: CK-MB Reference Range ChangeNew: 0.0-6.6 Previous: 0.0-4.9CK-MB Reference Range:<6.7 Normal6.7-10.0 Borderline>10.0 AbnormalTROPONIN [id number] 08:31:00 Test Item Value Reference Range Interpretation [...] acute neurological disease, and persistent tachyarrhythmia.BASIC METABOLIC [id number] 08:27:00 Test Item Value Reference Range Interpretation [...] S NOT APPLICABLE FOR DIALYSIS PATIEN TS. [id number] 08:24:00 Test Item Value Reference Range Interpretation Comments MAGNESIUM (BEAKER) (test code = 2.4 mg/dL 1.6-2.6 627) CBC W/PLT COUNT & AUTO [id number] 08:17:00 Test Item Value Reference Range Interpretation [...]
--- NOTE | 2019-10-04 10:31 | ER ---
Nurse's Notes [facility] Name: Alexis Urbano Age: 64 yrs Sex: Male : 1955 Arrival Date: 10/04/2019 Time: 09:12 Bed 5 Private MD: Diagnosis: Pneumonia due to other specified bacteria-bilateral;Dyspnea;Chest pain on breathing;End stage renal disease- on HD M,W, F;Type 1 diabetes mellitus;Anemia, unspecified;Hypokalemia Presentation: 10/03 09:24 Chief complaint: Patient states: has been SOB since being d/c from hospital earlier iw this week, was at dialysis today and had increasing SOB and chest pain , pt also has a cough, denies fever, tested negative for COVID when admitted, states he still felt very SOB when he was d/c, pt has been sleeping sitting up, had half od his dialysis today, staff stated pt did not have a lot of fluid to take off. Coronavirus screen: Client denies travel out of the [place] in the last 14 days. cough unrelated to allergies, shortness of breath, The client reports previous COVID testing was negative. Ebola Screen: Patient negative for fever greater than or equal to 101.5 degrees Fahrenheit, and additional compatible Ebola Virus Disease symptoms Patient denies exposure to infectious person. Patient denies travel to an Ebola-affected area in the 21 days before illness onset. No symptoms or risks identified at this time. Initial Sepsis Screen: Does the patient meet any 2 criteria? No. Patient's initial sepsis screen is negative. Does the patient have a suspected source of infection? No. Patient's initial sepsis screen is negative. Risk Assessment: Do you want to hurt yourself or someone else? Patient reports no desire to harm self or others. Onset of symptoms was October 04, 2019. 09:24 Method Of Arrival: EMS: [facility] iw 09:24 Acuity: JOEL 3 iw Triage Assessment: 10:20 Respiratory: Reports shortness of breath cough that is Onset: The symptoms/episode iw began/occurred the patient has moderate shortness of breath. Historical: - Allergies: 09:30 No Known Allergies; iw - Home Meds: 10:16 gabapentin 100 mg oral cap 3 times per day [Active]; pravastatin 40 mg oral tab 1 tab iw once daily [Active]; bumetanide 2 mg Oral tab 1 tab once daily [Active]; hydrocodone-acetaminophen 10-325 mg oral tab every 6 hours [Active]; doxazosin 2 mg oral tab 1 tab once daily [Active]; hydralazine 100 mg oral tab 3 times per day [Active]; clonidine HCl 0.2 mg oral tab 2 times per day [Active]; tizanidine 4 mg oral tab twice a day [Active]; 10:20 Albuterol Inhl every 4-6 hours [Active]; iw - PMHx: 09:29 Dialysis; ESRD; GERD; Hypertension; iw - PSHx: 09:29 left arm dialysis shunt; iw - Immunization history:: Adult Immunizations up to date. - Social history:: Smoking status: Patient/guardian denies using tobacco. Screenin:18 Abuse screen: Denies threats or abuse. Denies injuries from another. Nutritional iw screening: No deficits noted. Tuberculosis screening: No symptoms or risk factors identified. Fall Risk None identified. Assessment: 10:16 General: Appears in no apparent distress. Behavior is calm. Pain: Complains of pain in iw left breast. Neuro: Level of Consciousness is awake, alert, obeys commands, Oriented to person, place, time, situation, Moves all extremities. Full function. Cardiovascular: Patient's skin is warm and dry. Rhythm is regular. Cardiovascular: Reports chest pain, nausea, shortness of breath. Cardiovascular: Dialysis shunt: in the left bicep, with palpable thrill, with no erythema, with no edema, no bleeding noted. Respiratory: Airway is patent Respiratory effort is even, unlabored, Breath sounds are diminished in right upper lobe, right middle lobe, right posterior upper lobe and right posterior middle lobe. GI: Abdomen is flat, non-distended. Derm: Skin is intact, is healthy with good turgor. Musculoskeletal: Range of motion: intact in all extremities. 10:51 Reassessment: Patient appears in no apparent distress at this time. Patient and/or iw family updated on plan of care and expected duration. Pain level reassessed. Patient is alert, oriented x 3, equal unlabored respirations, skin warm/dry/pink. pt c/o chest pain, Dr. Munoz notified, order for morphine 2 mg, pt medicated, requesting something to eat and a blanket. 12:17 Reassessment: Patient appears in no apparent distress at this time. pt given second iw dose of morphine 2 mg, pt states he is still nauseous, hydralazine 50 mg PO given, BP down to 168/68. Vital Signs: 09:27 BP 182 / 61; Pulse 70; Resp 20 S; Temp 98.3; Pulse Ox 98% on R/A; Weight 76 kg; iw 10:51 BP 181 / 68; Pulse 62; Resp 20 S; Pulse Ox 97% on R/A; Pain 7/10; iw 12:19 BP 168 / 68; Pulse 62; Resp 16; Pulse Ox 98% on 2 lpm NC; iw 13:01 BP 136 / 60; Pulse 62; Resp 18 S; Pulse Ox 98% on 2 lpm NC; iw ED Course: 09:12 Patient arrived in ED. iw 09:17 Homar Munoz MD is Attending Physician. chris 09:27 Triage completed. iw 09:28 Arm band placed on. iw 09:37 Larisa Walker, ABBIE is Primary Nurse. iw 09:58 Initial lab(s) drawn, by co, sent to lab. First set of blood cultures drawn. Inserted iw saline lock: 20 gauge in right antecubital area, using aseptic technique. 10:00 Flu and/or RSV swab sent to lab. COVID swab sent to lab. iw 10:09 XRAY Chest (1 view) In Process Unspecified. EDMS 10:15 Patient has correct armband on for positive identification. compliance monitor on. Pulse iw ox on. NIBP on. 10:29 Yeyo Carreon DO is Hospitalizing Provider. chris 10:50 Nicolas Farr MD is Hospitalizing Provider. chris 12:19 No provider procedures requiring assistance completed. Patient admitted, IV remains in iw place. Administered Medications: 10:38 Not Given (given STONE ROUGHER): Aspirin 162 mg PO once iw 10:42 Drug: Decadron - Dexamethasone 6 mg Route: IVP; Site: right antecubital; iw 13:01 Follow up: Response: No adverse reaction iw 10:45 Drug: Rocephin 1 grams Route: IV; Rate: per protocol; Site: right antecubital; iw 10:50 Follow up: IV Status: Completed infusion iw 10:45 Drug: Pepcid 20 mg Route: IVP; Site: right antecubital; iw 13:02 Follow up: Response: No adverse reaction iw 10:50 Drug: morphine 2 mg Route: IVP; Site: right antecubital; iw 10:50 Drug: Zofran (Ondansetron) 4 mg Route: IVP; Site: right antecubital; iw 13:01 Follow up: Response: No adverse reaction iw 11:18 Drug: Zithromax 500 mg Route: IVPB; Infused Over: 1 hrs; Site: right antecubital; iw 12:20 Follow up: IV Status: Completed infusion iw 12:18 Drug: morphine 2 mg Route: IVP; Site: right antecubital; iw 13:01 Follow up: Response: No adverse reaction; Pain is decreased iw 12:19 Drug: HydrALAZINE 50 mg Route: PO; iw 13:01 Follow up: Response: No adverse reaction; Blood pressure is lowered iw 12:50 Not Given (Hemodynamic Parameters): cloNIDine 0.2 mg PO once iw Outcome: 10:31 Decision to Hospitalize by Provider. chris 13:00 Admitted to Med/surg accompanied by tech, via wheelchair, room 429, with oxygen, with iw chart, Report called to ABBIE Scott 13:00 Condition: good 13:00 Discharge instructions given to patient, Instructed on the need for admit, Demonstrated understanding of instructions. 13:22 Patient left the ED. hb Signatures: Dispatcher [employer] EDMS Homar Munoz MD MD cha Williams, Irene, ABBIE LEIVA Renay Arvizu RN RN hb Corrections: (The following items were deleted from the chart) 10:12 09:27 BP 182 / 61; Pulse 70bpm; Resp 20bpm; Spontaneous; Pulse Ox 98% RA; iw iw 10:54 09:29 PMHx: Diabetes - IDDM; iw iw
--- NOTE | 2019-10-04 10:31 | EDPHYS ---
Physician Documentation [facility] Name: Alexis Urbano Age: 64 yrs Sex: Male : 1955 Arrival Date: 10/04/2019 Time: 09:12 Bed 5 Private MD: ED Physician Homar Munoz HPI: 10/03 09:35 This 64 yrs old Male presents to ER via EMS with complaints of Shortness Of chris Breath, Chest Pain. 09:35 The patient has shortness of breath at rest, with light activity. Onset: The chris symptoms/episode began/occurred 4 day(s) ago. Duration: The symptoms are continuous, and are steadily getting worse. The patient's shortness of breath is aggravated by nothing, is alleviated by nothing. Associated signs and symptoms: Pertinent positives: non-productive cough. Severity of symptoms: At their worst the symptoms were moderate in the emergency department the symptoms are unchanged. The patient has experienced similar episodes in the past, a few times. Historical: - Allergies: 09:30 No Known Allergies; iw - Home Meds: 10:16 gabapentin 100 mg oral cap 3 times per day [Active]; pravastatin 40 mg oral tab 1 tab iw once daily [Active]; bumetanide 2 mg Oral tab 1 tab once daily [Active]; hydrocodone-acetaminophen 10-325 mg oral tab every 6 hours [Active]; doxazosin 2 mg oral tab 1 tab once daily [Active]; hydralazine 100 mg oral tab 3 times per day [Active]; clonidine HCl 0.2 mg oral tab 2 times per day [Active]; tizanidine 4 mg oral tab twice a day [Active]; 10:20 Albuterol Inhl every 4-6 hours [Active]; iw - PMHx: 09:29 Dialysis; ESRD; GERD; Hypertension; iw - PSHx: 09:29 left arm dialysis shunt; iw - Immunization history:: Adult Immunizations up to date. - Social history:: Smoking status: Patient/guardian denies using tobacco. ROS: 09:36 Constitutional: Negative for fever, chills, and weight loss, Eyes: Negative for injury, chris pain, redness, and discharge, ENT: Negative for injury, pain, and discharge, Neck: Negative for injury, pain, and swelling, Abdomen/GI: Negative for abdominal pain, nausea, vomiting, diarrhea, and constipation, Back: Negative for injury and pain, : Negative for injury, bleeding, discharge, and swelling, MS/Extremity: Negative for injury and deformity, Skin: Negative for injury, rash, and discoloration, Neuro: Negative for headache, weakness, numbness, tingling, and seizure, Psych: Negative for depression, anxiety, suicide ideation, homicidal ideation, and hallucinations, Allergy/Immunology: Negative for hives, rash, and allergies, Endocrine: Negative for neck swelling, polydipsia, polyuria, polyphagia, and marked weight changes, Hematologic/Lymphatic: Negative for swollen nodes, abnormal bleeding, and unusual bruising. 09:36 Cardiovascular: Positive for chest pain. 09:36 Respiratory: Positive for cough, shortness of breath, wheezing, expiratory. Exam: 09:36 Constitutional: This is a well developed, well nourished patient who is awake, alert, chris and in no acute distress. Head/Face: Normocephalic, atraumatic. Eyes: Pupils equal round and reactive to light, extra-ocular motions intact. Lids and lashes normal. Conjunctiva and sclera are non-icteric and not injected. Cornea within normal limits. Periorbital areas with no swelling, redness, or edema. ENT: Nares patent. No nasal discharge, no septal abnormalities noted. Tympanic membranes are normal and external auditory canals are clear. Oropharynx with no redness, swelling, or masses, exudates, or evidence of obstruction, uvula midline. Mucous membranes moist. Neck: Trachea midline, no thyromegaly or masses palpated, and no cervical lymphadenopathy. Supple, full range of motion without nuchal rigidity, or vertebral point tenderness. No Meningismus. Chest/axilla: Normal chest wall appearance and motion. Nontender with no deformity. No lesions are appreciated. Cardiovascular: Regular rate and rhythm with a normal S1 and S2. No gallops, murmurs, or rubs. Normal PMI, no JVD. No pulse deficits. Abdomen/GI: Soft, non-tender, with normal bowel sounds. No distension or tympany. No guarding or rebound. No evidence of tenderness throughout. Back: No spinal tenderness. No costovertebral tenderness. Full range of motion. Male : Normal genitalia with no discharge or lesions. Skin: Warm, dry with normal turgor. Normal color with no rashes, no lesions, and no evidence of cellulitis. Neuro: Awake and alert, GCS 15, oriented to person, place, time, and situation. Cranial nerves II-XII grossly intact. Motor strength 5/5 in all extremities. Sensory grossly intact. Cerebellar exam normal. Normal gait. Psych: Awake, alert, with orientation to person, place and time. Behavior, mood, and affect are within normal limits. 09:36 Cardiovascular: Rate: normal, Rhythm: regular, Pulses: Pulses are 4+ in bilateral radial, brachial, femoral, popliteal, posterior tibial and and dorsalis pedis arteries.. Heart sounds: normal, normal S1and S2, no S3 or S4, no murmur, no rub, no gallop, Edema: 1+ edema to level of left midcalf and right midcalf, JVD: is noted bilaterally, to 3 cm. 09:36 Respiratory: mild respiratory distress is noted, Respirations: labored breathing, that is mild, Breath sounds: bronchial sounds, decreased breath sounds, rhonchi, wheezing: expiratory right sided bs diminished, exp wheezing. 09:36 Musculoskeletal/extremity: Extremities: pain, swelling, 1 plus edema, bilaterally, Circulation is intact in all extremities. Sensation intact. Compartment Syndrome exam of affected extremity: is normal. Joints: All joints appear normal with full range of motion. Weight bearing: able to fully bear weight, without difficulty, DVT Exam: negative Homans' sign noted on exam, no appreciated bluish discoloration, no erythema, no increased warmth, pain, swelling, tenderness. 10:27 ECG was reviewed by the Attending Physician. chris Vital Signs: 09:27 BP 182 / 61; Pulse 70; Resp 20 S; Temp 98.3; Pulse Ox 98% on R/A; Weight 76 kg; iw 10:51 BP 181 / 68; Pulse 62; Resp 20 S; Pulse Ox 97% on R/A; Pain 7/10; iw 12:19 BP 168 / 68; Pulse 62; Resp 16; Pulse Ox 98% on 2 lpm NC; iw 13:01 BP 136 / 60; Pulse 62; Resp 18 S; Pulse Ox 98% on 2 lpm NC; iw MDM: 09:17 Patient medically screened. chris 09:39 Differential diagnosis: CHF exacerbation, Chronic Obstructive Pulmonary Disease chris reactive airway, CHF, URI, pulmonary edema, Sepsis. Data reviewed: vital signs, nurses notes, lab test result(s), EKG, radiologic studies, plain films. 10:16 Antibiotic administration: Rocephin and Zithromax given. HEART Score: History: chris Moderately Suspicious (1), ECG: Non specific repolarization disturbance / LBTB / PM (1), Age: > 45 and < 65 years (1), Risk Factors: > or = 3 Risk factors for atherosclerotic disease (2), [Hypercholesterolemia] [Hypertension] [DM] [+ Family HX]. The patient was given aspirin in the Emergency Department. The patient's Wells Deep Vein Thrombosis Score was calculated as follows: Total Score: 0. This patient was found to be at low risk for a deep vein thrombosis by using the Well's assessment criteria Total Score: 0-2 Pts- Low Risk. The patient's pulmonary embolism risk score was calculated as follows: Total Score: 0-2 points. This patient was found to be at low risk for a pulmonary embolism by using the Well's assessment criteria Total Score: 0-2 points. This patient was found to be at low risk for a pulmonary embolism by using the Well's assessment criteria. RAHEL Risk Score: 1 - Three or more CAD risk factors, 1- Known CAD, 1 - Recent [<24hrs] Severe Angina, TOTAL SCORE = 3. 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 Test interpretation: by ED physician or midlevel provider: ECG, plain radiologic studies. Counseling: I had a detailed discussion with the patient and/or guardian regarding: the historical points, exam findings, and any diagnostic results supporting the discharge/admit diagnosis, the presence of at least one elevated blood pressure reading (>120/80) during this emergency department visit, lab results, radiology results, the need for further work-up and treatment in the hospital. ED course: chest xray with progressive pna changes, right greater than left. ED course: worsening of pna, chest pain , pna bilaterally, will admit and treat, dr nichols and dr dennis involved. 10/03 09:35 Order name: Basic Metabolic Panel [facility] 10/03 09:35 Order name: CBC with Diff [facility] 10/03 09:35 Order name: LFT's; Complete Time: 10:[address] [facility] 10/03 09:35 Order name: Magnesium; Complete Time: 10:[address] [facility] 10/03 09:35 Order name: NT PRO-BNP; Complete Time: 10:[address] [facility] 10/03 09:35 Order name: Troponin (emerg Dept Use Only); Complete Time: 10:[address] [facility] 10/03 09:35 Order name: Flu; Complete Time: 10:[address] [facility] 10/03 09:35 Order name: COVID-[address] [facility] 10/03 09:35 Order name: Blood Culture Adult (2) [facility] 10/03 09:35 Order name: Lactate; Complete Time: 10:[address] [facility] 10/03 09:36 Order name: Basic Metabolic Panel; Complete Time: 10:51 [facility] 10/03 09:36 Order name: CBC with Automated Diff [facility] 10/03 10:19 Order name: CBC Smear Scan [facility] 10/03 11:31 Order name: D-Dimer [facility] 10/03 09:35 Order name: XRAY Chest (1 view); Complete Time: 10:[address] [facility] 10/03 09:35 Order name: EKG; Complete Time: 09:[address] [facility] 10/03 09:35 Order name: Cardiac monitoring; Complete Time: 10:[address] [facility] 10/03 09:35 Order name: EKG - Nurse/Tech; Complete Time: 10:[address] [facility] 10/03 11:02 Order name: Diet Renal; Complete Time: 11:03 10/03 11:31 Order name: CRP [facility] 10/03 11:59 Order name: CONS Physician Consult [facility] 10/03 09:35 Order name: IV Saline Lock; Complete Time: 10:[address] [facility] 10/03 09:35 Order name: Labs collected and sent; Complete Time: 10:[address] [facility] 10/03 09:35 Order name: O2 Per Protocol; Complete Time: 10:[address] [facility] 10/03 09:35 Order name: O2 Sat Monitoring; Complete Time: 10:[address] [facility] EC:27 Rate is 69 beats/min. Rhythm is regular. QRS Star is Normal. WV interval is normal. QRS chris interval is normal. QT interval is normal. No Q waves. T waves are Normal. ST Segment is depressed in leads V5, V6. Clinical impression: Abnormal EKG without significant change. Interpreted by me. Reviewed by me. :31 Rate is 69 beats/min. Rhythm is regular. QRS Star is Normal. WV interval is normal. QRS chris interval is normal. QT interval is normal. No Q waves. T waves are Normal. Clinical impression: Abnormal EKG without significant change. Interpreted by me. Reviewed by me. 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 PROFESSOR): Aspirin 162 mg PO once iw 10:42 Drug: Decadron - Dexamethasone 6 mg Route: IVP; Site: right antecubital; iw 13:01 Follow up: Response: No adverse reaction iw 10:45 Drug: Rocephin 1 grams Route: IV; Rate: per protocol; Site: right antecubital; iw 10:50 Follow up: IV Status: Completed infusion iw 10:45 Drug: Pepcid 20 mg Route: IVP; Site: right antecubital; iw 13:02 Follow up: Response: No adverse reaction iw 10:50 Drug: morphine 2 mg Route: IVP; Site: right antecubital; iw 10:50 Drug: Zofran (Ondansetron) 4 mg Route: IVP; Site: right antecubital; iw 13:01 Follow up: Response: No adverse reaction iw 11:18 Drug: Zithromax 500 mg Route: IVPB; Infused Over: 1 hrs; Site: right antecubital; iw 12:20 Follow up: IV Status: Completed infusion iw 12:18 Drug: morphine 2 mg Route: IVP; Site: right antecubital; iw 13:01 Follow up: Response: No adverse reaction; Pain is decreased iw 12:19 Drug: HydrALAZINE 50 mg Route: PO; iw 13:01 Follow up: Response: No adverse reaction; Blood pressure is lowered iw 12:50 Not Given (Hemodynamic Parameters): cloNIDine 0.2 mg PO once iw Disposition: Critical Care:. chris Disposition: 10/04/19 10:31 Hospitalization ordered by Nicolas Farr for Inpatient Admission. Preliminary diagnosis are Pneumonia due to other specified bacteria - bilateral, Dyspnea, Chest pain on breathing, End stage renal disease - on HD M,W, F, Type 1 diabetes mellitus, Anemia, unspecified, Hypokalemia. - Bed requested for Telemetry/MedSurg (Inpatient). - Status is Inpatient Admission. hb - Condition is Fair. - Problem is new. - Symptoms have improved. Critical care time excluding procedures: : Critical care time: Bedside Care: 20 minutes, Consultation: 5 minutes. Total time: 25 chris minutes Signatures: Dispatcher [employer] EDDeanne Enrique RN RN dw Anderson, Corey, MD MD cha Williams, Irene, RN RN iw Baxter, Heather, RN RN hb Corrections: (The following items were deleted from the chart) 10:32 10:31 Hospitalization Ordered by Yeyo Nichols DO for Inpatient Admission. Preliminary chris diagnosis is Pneumonia due to other specified bacteria - bilateral; Dyspnea; Chest pain on breathing; End stage renal disease - on HD M,W, F. Bed requested for Telemetry/MedSurg (Inpatient). Status is Inpatient Admission. Condition is Fair. Problem is new. Symptoms have improved. chris 10:50 10:32 10/04/2019 10:31 Hospitalization Ordered by Yeyo Nichols DO for Inpatient chris Admission. Preliminary diagnosis is Pneumonia due to other specified bacteria - bilateral; Dyspnea; Chest pain on breathing; End stage renal disease - on HD M,W, F; Type 1 diabetes mellitus. Bed requested for Telemetry/MedSurg (Inpatient). Status is Inpatient Admission. Condition is Fair. Problem is new. Symptoms have improved. chris 10:54 09:29 PMHx: Diabetes - IDDM; iw iw 10:56 10:50 10/04/2019 10:31 Hospitalization Ordered by Nicolas Farr MD for Inpatient chris Admission. Preliminary diagnosis is Pneumonia due to other specified bacteria - bilateral; Dyspnea; Chest pain on breathing; End stage renal disease - on HD M,W, F; Type 1 diabetes mellitus. Bed requested for Telemetry/MedSurg (Inpatient). Status is Inpatient Admission. Condition is Fair. Problem is new. Symptoms have improved. chris 10:57 10:56 10/04/2019 10:31 Hospitalization Ordered by Nicolas Farr MD for Inpatient chris Admission. Preliminary diagnosis is Pneumonia due to other specified bacteria - bilateral; Dyspnea; Chest pain on breathing; End stage renal disease - on HD M,W, F; Type 1 diabetes mellitus; Anemia, unspecified. Bed requested for Telemetry/MedSurg (Inpatient). Status is Inpatient Admission. Condition is Fair. Problem is new. Symptoms have improved. chris 12:08 10:57 10/04/2019 10:31 Hospitalization Ordered by Nicolas Farr MD for Inpatient dw Admission. Preliminary diagnosis is Pneumonia due to other specified bacteria - bilateral; Dyspnea; Chest pain on breathing; End stage renal disease - on HD M,W, F; Type 1 diabetes mellitus; Anemia, unspecified; Hypokalemia. Bed requested for Telemetry/MedSurg (Inpatient). Status is Inpatient Admission. Condition is Fair. Problem is new. Symptoms have improved. chris 13:22 12:08 10/04/2019 10:31 Hospitalization Ordered by Nicolas Farr MD for Inpatient hb Admission. Preliminary diagnosis is Pneumonia due to other specified bacteria - bilateral; Dyspnea; Chest pain on breathing; End stage renal disease - on HD M,W, F; Type 1 diabetes mellitus; Anemia, unspecified; Hypokalemia. Bed requested for Telemetry/MedSurg (Inpatient). Status is Inpatient Admission. Condition is Fair. Problem is new. Symptoms have improved. dw
[2019-10-04] MEDS ORDERED: ONDANSETRON 4 MG/2 ML VIAL ONE (10:44)
[2019-10-04] MEDS ORDERED: MORPHINE 2 MG/ML SYR ONE ×2 (10:44→11:36)
[2019-10-04] MEDS ORDERED: dexAMETHasone 10 MG/ML VIAL ONE (10:44)
[2019-10-04] MEDS ORDERED: CEFTRIAXONE/SWI 1gm 1 GM/10 ML SYR ONE (10:44)
[2019-10-04] MEDS ORDERED: FAMOTIDINE 20 MG/2 ML VIAL IV ONE (10:44)
[2019-10-04 10:50] LABS: ALT/SGPT 121 U/L (12-78); AST/SGOT 44 U/L (15-37); Albumin 3.4 g/dL (3.4-5.0); Alkaline Phosphatase 136 U/L (45-117); BUN Blood Urea Nitrogen 28 mg/dL (7-18); Bicarbonate 27 mmol/L (21-32); Bilirubin Direct 0.9 mg/dL (0-0.2); Bilirubin Total 1.5 mg/dL (0.2-1.0); Glucose Level 232 mg/dL (74-106); Magnesium 2.6 mg/dL (1.8-2.4); NT PRO-BNP > 175000 pg/mL (<125); Potassium 3.3 mmol/L (3.5-5.1); Protein, Total 7.5 g/dL (6.4-8.2); Sodium Level 133 mmol/L (136-145); Troponin (Emerg Dept Use Only) 0.04 ng/mL (0.0-0.045)
[2019-10-04] MEDS ORDERED: AZITHROMYCIN IV 500 MG in NA CHLORIDE 0.9% 250 ML IVPB ONE (11:00)
[2019-10-04 11:32] LABS: Blood Morphology Comment NOTED (NOT SEEN); Macrocytosis 1+; Platelet Estimate ADEQ; Urine White Blood Cell Casts OK
[2019-10-04 11:33] LABS: Rouleau NOTED
[2019-10-04] MEDS ORDERED: cloNIDine HCL 0.1 MG TAB ONE (11:36)
[2019-10-04] MEDS ORDERED: HYDRALAZINE HCL 10 MG TABLET ONE ×2 (11:36)
--- NOTE | 2019-10-04 11:54 | P.HP ---
Certification for Inpatient With expected LOS: <2 Midnights Patient will require the following post-hospital care: None Practitioner: I am a practitioner with admitting privileges, knowledge of patient current condition, hospital course, and medical plan of care. Services: Services provided to patient in accordance with Admission requirements found in Title 42 Section 412.3 of the Code of Federal Regulations <Radu Benton - Last Filed: 10/04/19 11:49> Patient History Date of Service: 10/04/19 Reason for admission: COPD Exacerbation History of Present Illness: 64-year-old male with a past medical history of COPD, end-stage renal disease on dialysis MWF, hypertension and type 2 diabetes mellitus who was recently discharged from the hospital 2 days ago presents back to the emergency room complaining of worsening shortness of breath, labored breathing and dyspnea on exertion. Patient states that since discharge on Monday patient has progressively had more difficulty breathing. Patient states that he gets winded with any minimal effort and it takes him a long time to recover were he is not having labored breathing. Today patient feels his symptoms are worsened and came to the ER. In the emergency room CRP is pending, D-dimer pending. Chest x-ray shows worsening infiltrate. Patient was negative for Covid on prior admission. Has been Re screened again. Denies being around any positive family members. States he has been isolated since discharge. His pro BNP is 175,000 that has a chronic history of high BNP being back to 09/2018. Patient had an echocardiogram on 09/30 which showed a normal EF. His white cell count is normal, troponin negative x1 and his vitals are normal. His room air saturations are 95%. On physical exam patient is sitting straight up. He has mildly labored breathing. Despite having normal oxygen concentrations at room air. He is somewhat wheezy. States that he has only tolerated an hr and a half of dialysis before having chest pain that he describes as a pressure in the midsternum. States he has had chest pain in the past but adding the difficulty breathing he was concerned came to ED. Hospitalist will place in observation and further evaluate P Home medications list reviewed: Yes - Past Medical/Surgical History Has patient received pneumonia vaccine in the past: No Diabetic: Yes -: Hepatitis-C (cured) -: HTN -: Hyperlipidemia -: Chronic pain -: Chronic anemia -: End-stage renal disease on hemodialysis (MWF) -: Diabetes mellitus type 2 -: Chronic pain -: Chronic anemia -: Cirrhosis of liver on the CT scan -: Left knee replacement -: ankle heel spur removed -: Leftankle surgery -: toe surgery -: back surgery -: TENS implant Psychosocial/ Personal History: Patient is . He has 2 children - Family History Sister -: Diabetes, Cancer Notes: colon ca Brother -: Hypertension, Diabetes dad -: Hypertension Notes: Colostomy mom -: Hypertension, Cancer Notes: dementia, Breast Cancer - Social History Smoking Status: Current every day smoker Counseled patient to stop smoking for: more than 10 minutes Smoking therapy provided: No (Refused) Alcohol use: No CD- Drugs: No Caffeine use: Yes Place of Residence: Home <Radu Benton - Last Filed: 10/04/19 11:49> Date of Service: 10/04/19 <Amor Farr - Last Filed: 10/04/19 12:46> Allergies No Known Drug Allergies Allergy (Mild, Verified 01/08/19 02:05) Unknown Home Medications: Gabapentin [Neurontin*] 100 mg PO TID 01/02/19 Hydralazine HCl [Apresoline] 100 mg PO TID 01/02/19 Hydrocodone 10/APAP 325 [[place] 103[address]*] 1 tab PO Q6H PRN 01/02/19 Lactulose 20 gm PO DAILYPRN PRN 01/02/19 Pravastatin Sodium [Pravachol] 40 mg PO BEDTIME 01/02/19 Tobramycin/Dexamethasone [Tobramycin-Dexameth Ophth Susp] 2 gtt OP BID 01/02/19 Zolpidem Tartrate [Ambien*] 10 mg PO BEDTIME 01/02/19 Albuterol Sulfate [Proair Hfa] 2 puff IH TID PRN #1 hfa.aer.ad 01/10/19 Benzonatate [Tessalon Perle*] 100 mg PO TID PRN #15 cap 01/10/19 Guaifenesin [Mucinex] 600 mg PO BID #15 tab.er.12h 01/10/19 Mometasone/Formoterol [Dulera 200 Mcg/5 Mcg Inhaler] 2 puff IH BID #1 inhaler 01/10/19 carvediloL [Coreg*] 6.25 mg PO BID #60 tab 01/10/19 cloNIDine HCL [Catapres*] 0.2 mg PO TID #180 tab 01/10/19 predniSONE [Deltasone*] 10 mg PO SEECOM #15 tab 01/10/19 Mometasone/Formoterol [Dulera 100 Mcg/5 Mcg Inhaler] 2 puff IH BID #1 inhaler 10/01/19 predniSONE [Prednisone*] 20 mg PO BID #14 tab 10/01/19 Review of Systems General: As per HPI Eyes: Unremarkable ENT: Unremarkable Respiratory: Shortness of Breath, SOB with Excertion, Wheezing Cardiovascular: Chest Pain Gastrointestinal: Unremarkable Genitourinary: Unremarkable Musculoskeletal: Unremarkable Integumentary: Unremarkable Neurological: Unremarkable <Radu Benton - Last Filed: 10/04/19 11:49> Physical Examination - Vital Signs Temperature: 98.3 F Blood Pressure: 182/61 Pulse: 70 Respirations: 20 Pulse Ox (%): 98 (RA) - Physical Exam General: Alert, Oriented x3, Mild distress HEENT: Atraumatic, Normocephalic, PERRLA Neck: Supple, No Thyromegaly Respiratory: Clear to auscultation bilaterally, Diminished, Expiratory wheezes, Other (Mildly labored breathing) Capillary refill: <2 Seconds Gastrointestinal: Normal bowel sounds, Soft and benign, Non-distended Musculoskeletal: No swelling, No contractures, No erythema Integumentary: No breakdown, No tenderness/swelling, No erythema Neurological: Normal gait, Normal speech, Normal strength at 5/5 x4 extr, Normal tone - Studies Laboratory Data (last 24 hrs) 10/04/19 09:58: WBC 5.9, Hgb 9.9 L, Hct 27.8 L, Plt Count 149 L 10/04/19 09:58: Sodium 133 L, Potassium 3.3 L, BUN 28 H, Creatinine 4.98 H D, Glucose 232 H, Magnesium 2.6 H, Total Bilirubin 1.5 H, AST 44 H D, ALT 121 H D, Alkaline Phosphatase 136 H Microbiology Data (last 24 hrs): 10/04/19 09:58 Nasopharnyx Coronavirus COVID-19 PCR - Final 10/04/19 09:58 Nasopharnyx Influenza Type A Antigen Screen - Final 10/04/19 09:58 Nasopharnyx Influenza Type B Antigen Screen - Final <Radu Benton - Last Filed: 10/04/19 11:49> - Studies Laboratory Data (last 24 hrs) 10/04/19 09:58: WBC 5.9, Hgb 9.9 L, Hct 27.8 L, Plt Count 149 L 10/04/19 09:58: Sodium 133 L, Potassium 3.3 L, BUN 28 H, Creatinine 4.98 H D, Glucose 232 H, Magnesium 2.6 H, Total Bilirubin 1.5 H, AST 44 H D, ALT 121 H D, Alkaline Phosphatase 136 H Microbiology Data (last 24 hrs): 10/04/19 09:58 Nasopharnyx Coronavirus COVID-19 PCR - Final 10/04/19 09:58 Nasopharnyx Influenza Type A Antigen Screen - Final 10/04/19 09:58 Nasopharnyx Influenza Type B Antigen Screen - Final <Amor Farr - Last Filed: 10/04/19 12:46> Assessment and Plan - Plan Impression: COPD exacerbation with mildly labored breathing and room air saturations of 95% on admission: Possible developing pneumonia: Chest pain: End-stage renal disease on dialysis Monday: Type 2 diabetes mellitus: Essential hypertension: Nicotine abuse without dependence: Plan: COPD exacerbation with mildly labored breathing and room air saturations of 95% on admission: Patient was recently discharged on Monday10/01/19 from the hospital. He tested negative for Covid at that time. He has been Re screened in the ED. Patient has a history of a pack-a-day smoker for many years. States he quit smoking 2 weeks ago. He has mild liver breathing on admission and expiratory wheezing. Patient be started on Atrovent, Brovana, O2 support if necessary. Pulmonology consulted. Will also start patient on methylprednisone 40 mg q.8 hr. CRP is order an D-dimer is ordered both results pending. Patient has an elevated pro BNP but his proBNP has been in the same range since 09/2018. Echocardiogram from 10/01/2019 shows a normal ejection fraction, left ventricular hypertrophy and normal wall motion. No significant valvular stenosis or regurgitation. Possible developing pneumonia: Chest x-ray on admission when compared to prior chest x-ray from 3 days ago shows worsening infiltrations. Patient does have a normal white cell count, vitals did not show fever. Patient received 1 dose of azithromycin in the ED. Will continue to monitor daily labs and vitals. If necessary will continue antibiotic therapy. Will discuss with pulmonology as well. Chest pain: Emergency room troponins negative x1. Will continue trending. Will place patient on telemetry and monitor. Reason echocardiogram showed normal EF, normal wall motion and no significant valvular abnormalities. End-stage renal disease on dialysis Monday: Patient only tolerated 1 1/2 hrs of dialysis before having significant shortness of breath and chest pain. Will continue dialysis if necessary on this admission. Creatinine is 4.98 on admission. Type 2 diabetes mellitus: Will place patient on sliding scale insulin. Will continue ADA diet. Will monitor blood glucose daily. Accu-Cheks a.c. HS. Essential hypertension: Will resume home medications once verified. Nicotine abuse without dependence: Patient refused nicotine patch. States he quit smoking 2 weeks ago and does not plan to smoke again. Discharge Plan: Home Plan to discharge in: 48 Hours - Advance Directives Does patient have a Living Will: No Does patient have a Durable POA for Healthcare: Yes - Code Status/Comfort Care Code Status Assessed: Yes Time Spent Managing Pts Care (In Minutes): 55 <Radu Benton - Last Filed: 10/04/19 11:49> Physician Review: Patient Assessed, Agree with Above Assessment and Plan Physician Review Additional Text: Patient was seen and examined and findings were discussed Agree with the assessment and plan as documented by the YVONNE <Amor Farr - Last Filed: 10/04/19 12:46>
[2019-10-04] MEDS ORDERED: ONDANSETRON 4 MG/2 ML VIAL IV PRN (12:00)
[2019-10-04] MEDS ORDERED: ACETAMINOPHEN 500 MG TAB PO PRN (12:00)
[2019-10-04] MEDS ORDERED: POTASSIUM 25 MEQ EFFERV TAB PO ONE (12:57)
[2019-10-04] MEDS ORDERED: HYDRALAZINE HCL 20 MG/ML VIAL IV PRN (13:23)
[2019-10-04] MEDS ORDERED: HYDROCODONE/APAP 10/325 TAB PO PRN (13:24)
[2019-10-04] MEDS ORDERED: LACTULOSE 20 GM PO PRN (13:24)
[2019-10-04] MEDS ORDERED: BENZONATATE 100 MG CAP PO PRN (13:24)
[2019-10-04] MEDS ORDERED: LACTULOSE 20 GM/30 ML UCUP PO PRN (13:49)
[2019-10-04 13:54] VITALS: BMI 26.6
[2019-10-04] MEDS: HYDRALAZINE HCL 25 MG TABLET PO SCH ×2 (14:00→21:02)
[2019-10-04] MEDS ORDERED: HOME MED 1 EA UNK (Hydralazine Hcl [Apresoline] 100 MG) PO SCH (14:00)
[2019-10-04] MEDS: cloNIDine HCL 0.1 MG TAB PO SCH ×2 (14:26→21:03)
[2019-10-04] MEDS: GABAPENTIN 100 MG CAP PO SCH ×2 (14:26→21:01)
[2019-10-04] MEDS: IPRATROPIUM BROM 0.5MG/2.5ML NEB SCH ×2 (14:55→20:20)
[2019-10-04] MEDS: INSULIN -REGULAR HUMAN 50 UNIT/0.5 ML ML SQ SCH ×2 (16:00→21:00)
[2019-10-04] MEDS: FUROSEMIDE 40 MG/4 ML VIAL IV SCH (16:00)
[2019-10-04] MEDS: HEPARIN 5000 UNIT/ML 1 ML VIAL SQ SCH (16:00)
[2019-10-04] MEDS: METHYLPREDNISOLONE 40 MG INJ IV SCH (16:01)
[2019-10-04] MEDS: ARFORMOTEROL TARTRATE 15 MCG/2 ML VIAL.NEB NEB SCH (20:20)
[2019-10-04] MEDS ORDERED: MOMETASONE IH SCH (21:00)
[2019-10-04] MEDS ORDERED: HOME MED 1 EA UNK (Pravastatin Sodium [Pravachol] 40 MG) PO SCH (21:00)
[2019-10-04] MEDS ORDERED: ATORVASTATIN 10 MG TAB PO SCH (21:00)
[2019-10-04] MEDS ORDERED: FORMOTEROL IH SCH (21:00)
[2019-10-04] MEDS ORDERED: DULERA IH SCH (21:00)
[2019-10-04] MEDS ORDERED: ZOLPIDEM TARTRATE 10 MG TABLET PO SCH (21:00)
[2019-10-04] MEDS ORDERED: DULERA 200/5 (MOMETASONE/FORMOTEROL) INHALER IH SCH (21:00)
[2019-10-04] MEDS: GUAIFENESIN 600 MG SA TAB PO SCH (21:01)
[2019-10-04] MEDS: carvediloL 6.25 MG TAB PO SCH (21:01)
[2019-10-04] MEDS: HYDROCODONE/APAP 10/325 TAB PO PRN (21:04)
[2019-10-05] MEDS: METHYLPREDNISOLONE 40 MG INJ IV SCH ×3 (00:08→17:00)
[2019-10-05] MEDS: HEPARIN 5000 UNIT/ML 1 ML VIAL SQ SCH ×3 (00:08→17:00)
[2019-10-05] MEDS: HYDROCODONE/APAP 10/325 TAB PO PRN ×3 (00:35→14:30)
[2019-10-05] MEDS: IPRATROPIUM BROM 0.5MG/2.5ML NEB SCH ×3 (02:20→14:00)
[2019-10-05] MEDS: ARFORMOTEROL TARTRATE 15 MCG/2 ML VIAL.NEB NEB SCH (07:49)
[2019-10-05] MEDS: INSULIN -REGULAR HUMAN 50 UNIT/0.5 ML ML SQ SCH ×3 (08:18→16:30)
[2019-10-05] MEDS: HYDRALAZINE HCL 25 MG TABLET PO SCH ×2 (08:19→14:00)
[2019-10-05] MEDS: GUAIFENESIN 600 MG SA TAB PO SCH (08:20)
[2019-10-05] MEDS: cloNIDine HCL 0.1 MG TAB PO SCH ×2 (08:20→14:00)
[2019-10-05] MEDS: carvediloL 6.25 MG TAB PO SCH (08:22)
[2019-10-05] MEDS: GABAPENTIN 100 MG CAP PO SCH ×2 (08:22→14:00)
[2019-10-05] MEDS: FUROSEMIDE 40 MG/4 ML VIAL IV SCH ×2 (08:23→17:00)
[2019-10-05] MEDS ORDERED: CEFTRIAXONE 1 GM/NS 50 ML 1 GM/50 ML BAG IV SCH (09:00)
[2019-10-05] MEDS ORDERED: CEFTRIAXONE/SWI 1gm 1 GM/10 ML SYR IV SCH (09:00)
--- NOTE | 2019-10-05 13:05 | P.DS ---
Admission Date: 10/05/19 Discharge Date: 10/05/19 Reason for Admission: COPD Exacerbation Procedures: Chest x-ray Brief History of Present Illness: 64-year-old male with a past medical history of COPD, end-stage renal disease on dialysis MWF, hypertension and type 2 diabetes mellitus who was recently discharged from the hospital 2 days ago presents back to the emergency room complaining of worsening shortness of breath, labored breathing and dyspnea on exertion. Patient states that since discharge on Monday patient has progressively had more difficulty breathing. Patient states that he gets winded with any minimal effort and it takes him a long time to recover were he is not having labored breathing. Today patient feels his symptoms are worsened and came to the ER. In the emergency room CRP is pending, D-dimer pending. Chest x-ray shows worsening infiltrate. Patient was negative for Covid on prior admission. Has been Re screened again. Denies being around any positive family members. States he has been isolated since discharge. His pro BNP is 175,000 that has a chronic history of high BNP being back to 09/2018. Patient had an echocardiogram on 09/30 which showed a normal EF. His white cell count is normal, troponin negative x1 and his vitals are normal. His room air saturations are 95%. On physical exam patient is sitting straight up. He has mildly labored breathing. Despite having normal oxygen concentrations at room air. He is somewhat wheezy. States that he has only tolerated an hr and a half of dialysis before having chest pain that he describes as a pressure in the midsternum. States he has had chest pain in the past but adding the difficulty breathing he was concerned came to ED. Hospitalist will place in observation and further evaluate P Hospital Course: During this hospital course patient was admitted for complaints of shortness of breath and chest pain. Patient was placed on telemetry and no acute rhythms were noted Overnite. His shortness of breath is likely a COPD exacerbation but was not requiring O2 support. Troponin was negative. An patient is not complaining of chest pain any more. He is at his baseline with breathing. Patient has a history of noncompliance with medications including his inhalers for COPD. Patient was started on his of Brovana, Lasix, IV steroids and Coreg. Patient tolerated therapy well and at this time is at his baseline. Discussed extensively with patient the need for compliance with his home medications. Patient verbalized understanding but states that he still smokes a pack of cigarettes a day and does not plan on quitting. He was also instructed to be compliant with drinking 1-1/2 L of fluid at home. Patient had an echocardiogram on 10/01/2019 which showed left ventricular hypertrophy, normal ejection fraction and no wall motion abnormality. Patient had been recently discharged on 10/01/2019 with similar complaints. At the time he was instructed to follow up with his medical administrative specialist and carton lettering machine operator as an outpatient. Patient was agreeable. Discussed with patient following up with his carton lettering machine operator in [place] if he continues having chest pain. CT of the abdomen pelvis shows extensive cardiovascular disease. Would recommend if patient continues with similar symptoms that he be transferred to [facility] were he can follow up with his multiple specialists including Cardiology to address his multiple needs for possible renal stents and CAD. <Radu Benton - Last Filed: 10/05/19 13:17> Admission Date: 10/04/19 Discharge Date: 10/05/19 Hospital Course: Patient seen and examined. Agree with evaluation, assessment and plan of care by physician health education assistant. Case also discuss with pulmonology. Patient likely with COPD exacerbation. Recommend prednisone at discharge. Will also start Symbicort 2 puffs 3 times a day for COPD and add albuterol 2 puffs 3 times a day as needed for shortness of breath. Patient was given steroids and Dulera at the last visit. There may be some indication of noncompliance. Compliance was addressed in detail. Patient also with underlying CAD and CHF. Fluid restric tion address in detail. Recommend follow up with his multiple specialists at [facility]. Patient needs follow up with cardiovascular surgery to address multiple issues. <Yeyo Carreon - Last Filed: 10/05/19 17:17> Discharge Condition: GOOD Vital Signs/Physical Exam: Temp Pulse Resp BP Pulse Ox 97.9 F 58 16 184/84 H 99 10/05/19 08:00 10/05/19 08:20 10/05/19 08:00 10/05/19 08:20 10/05/19 08:00 General: Alert, In no apparent distress, Oriented x3 HEENT: Atraumatic, Normocephalic, PERRLA Neck: Supple, No Thyromegaly Respiratory: Clear to auscultation bilaterally, Normal air movement Cardiovascular: Normal pulses, Normal S1 S2, No murmurs Capillary refill: <2 Seconds Gastrointestinal: Normal bowel sounds, Soft and benign, Non-distended Musculoskeletal: No clubbing, No swelling, No erythema, No tenderness Integumentary: No rashes, No tenderness/swelling, No erythema Neurological: Normal gait, Normal speech, Normal strength at 5/5 x4 extr, Normal tone Laboratory Data at Discharge: WBC 5.9 K/uL (4.3-10.9) 10/04/19 09:58 Hgb 9.9 g/dL (13.6-17.9) L 10/04/19 09:58 Hct 27.8 % (39.6-49.0) L 10/04/19 09:58 Plt Count 149 K/uL (152-406) L 10/04/19 09:58 Sodium 133 mmol/L (136-145) L 10/04/19 09:58 Potassium 4.2 mmol/L (3.5-5.1) 10/04/19 19:40 BUN 28 mg/dL (7-18) H 10/04/19 09:58 Creatinine 4.98 mg/dL (0.55-1.3) H D 10/04/19 09:58 Glucose 232 mg/dL (74-106) H 10/04/19 09:58 Magnesium 2.6 mg/dL (1.8-2.4) H 10/04/19 09:58 Total Bilirubin 1.5 mg/dL (0.2-1.0) H 10/04/19 09:58 AST 44 U/L (15-37) H D 10/04/19 09:58 ALT 121 U/L (12-78) H D 10/04/19 09:58 Alkaline Phosphatase 136 U/L (45-117) H 10/04/19 09:58 Troponin I Cancelled 10/05/19 01:58 <Radu Benton - Last Filed: 10/05/19 13:17> Vital Signs/Physical Exam: Temp Pulse Resp BP Pulse Ox 97.7 F 58 16 169/73 H 98 10/05/19 12:00 10/05/19 14:00 10/05/19 14:30 10/05/19 14:00 10/05/19 14:30 Laboratory Data at Discharge: WBC 5.9 K/uL (4.3-10.9) 10/04/19 09:58 Hgb 9.9 g/dL (13.6-17.9) L 10/04/19 09:58 Hct 27.8 % (39.6-49.0) L 10/04/19 09:58 Plt Count 149 K/uL (152-406) L 10/04/19 09:58 Sodium 133 mmol/L (136-145) L 10/04/19 09:58 Potassium 4.2 mmol/L (3.5-5.1) 10/04/19 19:40 BUN 28 mg/dL (7-18) H 10/04/19 09:58 Creatinine 4.98 mg/dL (0.55-1.3) H D 10/04/19 09:58 Glucose 232 mg/dL (74-106) H 10/04/19 09:58 Magnesium 2.6 mg/dL (1.8-2.4) H 10/04/19 09:58 Total Bilirubin 1.5 mg/dL (0.2-1.0) H 10/04/19 09:58 AST 44 U/L (15-37) H D 10/04/19 09:58 ALT 121 U/L (12-78) H D 10/04/19 09:58 Alkaline Phosphatase 136 U/L (45-117) H 10/04/19 09:58 Troponin I Cancelled 10/05/19 01:58 <Yeyo Carreon - Last Filed: 10/05/19 17:17> Diet: ADA Activity: Ad wu Time spent managing pt's care (in minutes): 55 <Radu Benton - Last Filed: 10/05/19 13:17> <Yeyo Carreon - Last Filed: 10/05/19 17:17> Home Medications: Gabapentin [Neurontin*] 100 mg PO TID 01/02/19 Hydrocodone 10/APAP 325 [[place] 103[address]*] 1 tab PO QID 01/02/19 Lactulose 20 gm PO DAILYPRN PRN 01/02/19 Tobramycin/Dexamethasone [Tobramycin-Dexameth Ophth Susp] 2 gtt OP BID 01/02/19 Zolpidem Tartrate [Ambien*] 10 mg PO BEDTIME 01/02/19 Guaifenesin [Mucinex] 600 mg PO BID #15 tab.er.12h 01/10/19 cloNIDine HCL [Catapres*] 0.2 mg PO TID #180 tab 01/10/19 Tizanidine [Zanaflex*] 1 tab PO BID 10/04/19 Albuterol Sulfate [Proair Hfa] 2 puff IH TID PRN #1 hfa.aer.ad 10/05/19 Arformoterol Tartrate [Brovana] 15 mcg NEB BIDRESP 30 Days #30 vial.neb 10/05/19 Benzonatate [Tessalon Perle*] 100 mg PO TID PRN 5 Days #15 cap 10/05/19 Doxazosin [Cardura*] 1 tab PO DAILY 30 Days #30 tab 10/05/19 Hydralazine HCl [Apresoline] 100 mg PO TID 30 Days #90 tablet 10/05/19 Ipratropium Neb [Atrovent*] 0.5 mg NEB [id number] 30 Days #1 box 10/05/19 Mometasone/Formoterol [Dulera 100 Mcg/5 Mcg Inhaler] 2 puff IH BID #1 inhaler 10/05/19 Mometasone/Formoterol [Dulera 200 Mcg/5 Mcg Inhaler] 2 puff IH BID #1 inhaler 10/05/19 Pravastatin Sodium [Pravachol] 40 mg PO BEDTIME 30 Days #30 tablet 10/05/19 carvediloL [Coreg*] 6.25 mg PO BID 30 Days #60 tab 10/05/19 predniSONE [Prednisone*] 20 mg PO BID #14 tab 10/05/19 New Medications: Hydralazine HCl [Apresoline] 100 mg PO TID 30 Days #90 tablet Ipratropium Neb [Atrovent*] 0.5 mg NEB [id number] 30 Days #1 box Arformoterol Tartrate [Brovana] 15 mcg NEB BIDRESP 30 Days #30 vial.neb Doxazosin [Cardura*] 1 tab PO DAILY 30 Days #30 tab carvediloL [Coreg*] 6.25 mg PO BID 30 Days #60 tab Mometasone/Formoterol [Dulera 100 Mcg/5 Mcg Inhaler] 2 puff IH BID #1 inhaler Mometasone/Formoterol [Dulera 200 Mcg/5 Mcg Inhaler] 2 puff IH BID #1 inhaler Pravastatin Sodium [Pravachol] 40 mg PO BEDTIME 30 Days #30 tablet predniSONE [Prednisone*] 20 mg PO BID #14 tab Albuterol Sulfate [Proair Hfa] 2 puff IH TID PRN #1 hfa.aer.ad PRN Reason: Shortness Of Breath Benzonatate [Tessalon Perle*] 100 mg PO TID PRN 5 Days #15 cap PRN Reason: Cough Followup: Jose Francisco Mckeon MD [ACTIVE - CAN ADMIT] - (Call to make an appointment. )
[2019-10-05 13:06] VITALS: BP 169/73; TEMP 97.7
[2019-10-05 19:28] VITALS: O2SAT 98
== END 2019-10-05 17:15 | disposition home or self-care (01) ==
LOC: ER 09:11 → ERHOLD 12:02 → 4TH 12:51 → INTOOBSV 10-05 10:32 → OBSVTOIN 10-05 10:32
PROVIDERS: ADMIT Family Medicine; ATTEND Family Medicine
DX: J44.1 Chronic obstructive pulmonary disease with (acute) exacerbation (principal); R07.9 Chest pain, unspecified; I13.2 Hypertensive heart and chronic kidney disease with heart failure and with stage 5 chronic kidney disease, or end stage renal disease; I50.9 Heart failure, unspecified; N18.6 End stage renal disease; E11.22 Type 2 diabetes mellitus with diabetic chronic kidney disease; Z99.2 Dependence on renal dialysis; B96.20 Unspecified Escherichia coli [E. coli] as the cause of diseases classified elsewhere; G89.29 Other chronic pain; E78.5 Hyperlipidemia, unspecified; D64.9 Anemia, unspecified; E87.6 Hypokalemia; I25.10 Atherosclerotic heart disease of native coronary artery without angina pectoris; K74.60 Unspecified cirrhosis of liver; Z20.828 Contact with and (suspected) exposure to other viral communicable diseases; F17.210 Nicotine dependence, cigarettes, uncomplicated; Z71.6 Tobacco abuse counseling; Z91.19 Patient's noncompliance with other medical treatment and regimen; Z86.19 Personal history of other infectious and parasitic diseases; Z83.3 Family history of diabetes mellitus; Z82.49 Family history of ischemic heart disease and other diseases of the circulatory system; Z80.0 Family history of malignant neoplasm of digestive organs; Z80.3 Family history of malignant neoplasm of breast
CPT/HCPCS: 96365; 93005; 87040 ×2; 87070; 85025; 80048; 36415; 83735; 87205; 84132; 82947 ×4; 85379; 80076; 83605; 87077; 87186; 84484; 83880; 86140; 87804 ×2; 71045; 94760 ×4; 96375; 99285; U0002; J0360; J1940; J1644 ×3; J0456; J1100; J2270 ×2; J7605 ×2; J0696 ×2; J7050; J2405 ×2; J2920 ×3; G0378 ×3

== ENCOUNTER 2019-10-27 23:19 | Emergency (ER) | payer OTHER ==
--- OUTSIDE RECORDS SUMMARY | 2019-10-27 23:21 | XMS REPORT | Clinical Summary ---
:1955 Author Organization [facility] Address [address] [place] [address] Care Team Providers Name Role Phone Moiz [...] Coordination Note PCP- Rajendra ALONZO- Dr. Linares [phone] Problem Noted Date Acute respiratory failure with [...] Plan: With T2DM and hypertension, he meets aminor wilks for metabolic syndrome. Management per his PCP. Encounters Date Type Specialty Care Team Description 10/04/2019 Lab Requisition Lab 10/01/2019 Lab Requisition Lab 05/22/2019 Documentation Transplant Sangita Hartman RN 04/24/2019 Telephone Transplant Sangita Hartman, Waitlist Maint young LEIVA 04/15/2019 Telephone Transplant Leal, Meriam Appointment 04/15/2019 Telephone Central Scheduling LealMinalshinem other 04/12/2019 Social Work Transplant Marian Faust, OLIVER 04/08/2019 Telephone Transplant Leal, Meriam Appointment 03/22/2019 Telephone Transplant Leal, Meriam Appointment (reschedule mis sed apt. on 03/21/19 , annual updates) 03/20/2019 Outside Orders Radiology Rajendra Montoya Jr., MD 03/20/2019 Orders Only Transplant Sangita Hartman, Awaiting RN transplantation of kidney (Primary Dx) 02/25/2019 Telephone Transplant Leal Meriam Appointment 02/25/2019 Documentation Transplant Sangita Hartman RN 02/25/2019 Telephone Transplant Leal, Meriam Appointment 02/21/2019 Hospital Encounter Radiology Wayne Jhaveri, [...] Only General Internal Medicine 02/20/2019 Telephone Transplant Leal, Minaliam Appointment 02/13/2019 Documentation Transplant Sangita Hartman RN 01/08/2019 Telephone Transplant Leal, Meriam Appointment 01/07/2019 Telephone Transplant Leal, Meriam Appointment 01/04/2019 Telephone Transplant Leal, Meriam Appointment 01/02/2019 Orders Only Cardiology Wayne Jhaveri, Pre-transplant evaluation for ESRD (end stage renal disease) (Primary Dx); Essential hyper tension; Bilateral carot id artery occlusion; Diastolic dysfu nction, left ventricle 01/01/2019 Documentation Transplant Sangita Hartman, Awaiting silva splantation of kidney (Primary Dx); RN History of hepa titis C virus infection after 10/26/2018 Immunizations Name Dates Previously Given Next Due [...] Taken Blood Pressure 140/42 02/21/2019 1:35 PM SHIPPING AND RECEIVING ASSOCIATE Pulse 74 02/21/2019 1:35 PM SHIPPING AND RECEIVING ASSOCIATE Temperature - - Respiratory Rate 20 02/21/2019 1:35 PM SHIPPING AND RECEIVING ASSOCIATE Oxygen Saturation - - Inhaled Oxygen Concentration - - Weight 74.8 kg (165 lb) 02/21/2019 11:19 AM SHIPPING AND RECEIVING ASSOCIATE Height 167.6 cm (5' 6") 02/21/2019 11:19 AM SHIPPING AND RECEIVING ASSOCIATE Body Mass Index 26.63 02/21/2019 11:19 AM SHIPPING AND RECEIVING ASSOCIATE Plan of Treatment Health Maintenance Due [...] Name Priority Date/Time Associated Comments Diagnosis SARS-COV2/RT-PCR ([facility] Routine 10/04/2019 9:58 R esults for this & REF LABS) AM CDT procedure are i n the results section. SARS-COV2/RT-PCR ([facility] Routine 09/30/2019 8:00 R esults for this & REF LABS) PM CDT procedure are i n the results section. PERIPHERAL VASCULAR 02/22/2019 9:22 REPORT - SCAN PM SHIPPING AND RECEIVING ASSOCIATE ECHOCARDIOGRAM REPORT - 02/21/2019 9:21 SCAN PM SHIPPING AND RECEIVING ASSOCIATE NM MYOCARDIAL PERFUSION Routine 02/21/2019 2:47 Pre-transplan t Results for this SPECT, PHARM(LEXISCAN) PM SHIPPING AND RECEIVING ASSOCIATE evaluation for pro cedure are in ESRD (end stage the results renal disease) section. Essential hypertension Bilateral carotid artery occlusion Diastolic dysfunction, left ventricle TREADMILL Routine 02/21/2019 1:28 Results for this TOLERANCE(NON-NUCLEAR PM SHIPPING AND RECEIVING ASSOCIATE proced ure are in TREADMILL) the results section. ECG 12-LEAD Routine 02/21/2019 1:04 Results for this PM SHIPPING AND RECEIVING ASSOCIATE procedure are i n the results section. ECG 12-LEAD Routine 02/21/2019 1:04 PM SHIPPING AND RECEIVING ASSOCIATE Procedure Note - Interface, External Ris In - 02/21/2019 1:56 PM SHIPPING AND RECEIVING ASSOCIATE Ventricular Rate 60 BPM Atrial Rate 60 BPM P-R Interval 158 ms QRS Duration 92 ms Q-T Interval 474 ms QTC Calculation(Bazett) 474 ms P [place] 54 degrees R [place] 24 degrees T [place] -74 degrees Normal sinus rhythm Possible Left atrial enlarge ment T wave abnormality, consider inferolateral ischemia Prolonged QT Abnormal ECG ECG 12-LEAD Routine 02/21/2019 1:03 PM SHIPPING AND RECEIVING ASSOCIATE Resu lts for this procedure are in the results section . ECG 12-LEAD Routine 02/21/2019 1:03 PM SHIPPING AND RECEIVING ASSOCIATE Procedure Note - Interface, External Ris In - 02/21/2019 1:56 PM SHIPPING AND RECEIVING ASSOCIATE Ventricular Rate 61 BPM Atrial Rate 61 BPM P-R Interval 156 ms QRS Duration 100 ms Q-T Interval 478 ms QTC Calculation(Bazett) 481 ms P [place] 59 degrees R [place] 33 degrees T [place] -80 degrees Normal sinus rhythm Possible Left atrial enlarge ment T wave abnormality, consider inferolateral ischemia Prolonged QT Abnormal ECG 2D ECHO W/ DOPPLER Routine 02/21/2019 10:02 Pre-transplant britany luation Results for (CW/PW/COLOR) AM SHIPPING AND RECEIVING ASSOCIATE for ESRD (end stage renal t his procedure disease) are in the Essential hypert ension results Bilateral carotid artery sec tion. occlusion Diastolic dysfunction, left ventricle CAROTID DOPPLER Routine 02/21/2019 9:30 Pre-transplant evalua tion Results for BILATERAL AM SHIPPING AND RECEIVING ASSOCIATE for ESRD (end stage renal th is procedure disease) are in the Essential hypert ension results Bilateral carotid artery sec tion. occlusion Diastolic dysfunction, left ventricle after 10/26/2018 Results SARS-CoV2/RT-PCR ([facility] & Ref Labs) (10/04/2019 9:58 AM CDT)Only the most recent of2 resultswithin the time period is included. SARS-COV2/RT-PCR Negative Not Detected, Negative, [facility] See external report for MEDICAL CENTER linked test SARS-COV-2 PERFORMING LAB [facility] Specimen Other Narrative Performed At Negative result for this test determines that [facility] SARS-CoV-2 RNA was not present in the specimen above the Limit of Detection (LOD).However, Negative results do not preclude SARS-CoV-2 infection and should not be used as the sole basis for treatment or patient management decisions. Negative results must be combined with clinical observations, patient history, and epidemiological information. A false negative result may occur if a specimen is improperly collected, transported or handled.A false negative result should be considered if patient's recent exposures or clinical presentation indicate that COVID-19 (SARS-CoV-2) is likely and diagnostic tests for other causes of illness are negative.Re-testing should be considered in cases of suspected false negatives. The limit of detection for this assay is 800 copies/mL. This SARS CoV-2 test is a real-time RT-PCR test intended for the qualitative detection of nucleic acid from SARS-CoV-2 in a nasopharyngeal swab specimen collected from individuals suspected of COVID-19 by their healthcare provider. This test has not been Food and Drug Administration (FDA) cleared or approved.This is a modified version of an approved Emergency Use Authorization (EUA) and is in the process of review by the FDA. Once authorized by the FDA, the issued EUA will be effective until the declaration that circumstances exist justifying the authorization of the emergency use of in vitro diagnostic tests for detection and/or diagnosis of COVID-19 is terminated under Section 564(b)(2) of the Act or the EUA is revoked under Section 564(g) of the Act. Fact Sheet for Healthcare Providers: https://www.eASIC.com/sites/default/files/pro duct/documents/Fact_Sheet_HC_Providers_Lyra_SA RS-CoV-2.pdf Fact Sheet for Healthcare Patients: https://www.eASIC.com/sites/default/files/pro duct/documents/Fact_Sheet_Patients_Lyra_SARS-C oV-2.pdf Performing Laboratory: [facility] [address] [place] [address] Performing Organization Address City/State/Zipcode Phone Number [facility] [address] [place] [address] CENTER PERIPHERAL VASCULAR REPORT - SCAN (02/22/2019 9:22 PM SHIPPING AND RECEIVING ASSOCIATE) Narrative Performed At This result has an attachment that is no t available. ECHOCARDIOGRAM REPORT - SCAN (02/21/2019 9:21 PM SHIPPING AND RECEIVING ASSOCIATE) Narrative Performed At This result has an attachment that is no t available. NM myocardial perfusion SPECT,pharm(Lexiscan) (02/21/2019 2:47 PM SHIPPING AND RECEIVING ASSOCIATE) Specimen Narrative Performed At FINAL REPORT [facility] PROCEDURE: MYOCARDIAL PERFUSION SPECT IM AGING (Rest/Stress) CPT CODE: 73176 INDICATION: Renal transplant evaluation, hypertension, shortness of [...] MD Report Verified Date/Time:02/21/2019 15:54:30 Reading Location: [address] Nuc Med Reading Room Procedure Note Interface, External Ris In - 02/21/2019 3:56 PM SHIPPING AND RECEIVING ASSOCIATE FINAL REPORT PROCEDURE: MYOCARDIAL PERFUSION SPECT IM AGING (Rest/Stress) CPT CODE: 83137 INDICATION: Renal transplant evaluation, hypertension, shortness of [...] Verified Date/Time: 02/21/2019 1 5:54:30 Reading Location: [address] Nuc Med Reading Room Performing Organization Address City/State/Zipcode Phone Number GE RIS Treadmill tolerance(Non-Nuclear Treadmill) (02/21/2019 1:28 PM SHIPPING AND RECEIVING ASSOCIATE) Specimen Narrative Performed At Protocol Name REGADENOSON GE MUSE Time In Exercise Phase 00:01:00 Max. Systolic [...] 2:42:47 PM Confirmed by MD GONZALEZ JORGE ([id number]) on 03/18/2019 12: 21:22 PM Procedure Note Interface, External Ris In - 03/18/2019 12:21 PM SHIPPING AND RECEIVING ASSOCIATE Protocol Name REGADENOSON Time In Exercise Phase 00:01:00 Max. Systolic [...] 2:42:47 PM Confirmed by MD GONZALEZ JORGE ([id number]) on 03/18/2019 12:21:22 PM Performing Organization Address City/State/Zipcode Phone Number GE MUSE ECG 12 lead (02/21/2019 1:04 PM SHIPPING AND RECEIVING ASSOCIATE)Only the most recent of2 resultswithin the time period is included. Specimen Narrative Performed At Ventricular Rate 60 BPM GE MUSE Atrial Rate 60 BPM P-R Interval 158 ms QRS Duration 92 ms Q-T Interval 474 ms QTC Calculation(Bazett) 474 ms P Dallas 54 degrees R [place] 24 degrees T Dallas -74 degrees Normal sinus rhythm Left atrial enlargement T wave abnormality, consider inferolater al ischemia Prolonged QT Abnormal ECG Confirmed by MD Lyons Roberto ([id number]) on 02/03 2:27:14 PM Procedure Note Interface, External Ris In - 02/21/2019 2:27 PM SHIPPING AND RECEIVING ASSOCIATE Ventricular Rate 60 BPM Atrial Rate 60 BPM P-R Interval 158 ms QRS Duration 92 ms Q-T Interval 474 ms QTC Calculation(Bazett) 474 ms P [place] 54 degrees R [place] 24 degrees T [place] -74 degrees Normal sinus rhythm Left atrial enlargement T wave abnormality, consider inferolater al ischemia Prolonged QT Abnormal ECG Confirmed by MD Lyons Roberto ([id number]) on 02/21/2019 2:27:14 PM Performing Organization Address City/State/Zipcode Phone Number [employer] 2D Echo W/Doppler(CW/PW/Color) (02/21/2019 10:02 AM SHIPPING AND RECEIVING ASSOCIATE) Ejection Fraction [facility] [employer] Specimen Narrative Performed At Transthoracic Echocardiography Report (T TE) [facility] [employer] [facility] Demographics Patient Name Maury URBANO of Study 02/21/2019 SHO [id number] Gender Male Visit Number [id number] Marissa [id number] Room Number Number Date of Birth1955 Referring Physician Emilio Black MD Age63 year(s) International Trade Teacher Dariel Patel CS Savanna issa MD Physician Procedure Type [...] External Ris In - 02/21/2019 12:49 PM SHIPPING AND RECEIVING ASSOCIATE Transthoracic Echocardiography Report (TTE) Demographics Patient Name FIDEL URBANO Date of Study 02/21/2019 SHO Genjúnior r Male Visit Number [id number] Race Other Room Number Number Date of 1955 Refer ring Physician Emilio Black MD Age 63 year(s) Sonog paramjit Avila International Trade Teacher Falguni Patel, [facility] Inter [facility] Bry Pendleton MD Physi joshua Procedure Type [...] mmHg D eceleration Time: 302.9 msec MV Jordni. Peak: Tissue Doppler E' Lateral Velocity: 0.07 [...] l/min/m^2 Performing Organization Address City/State/Zipcode Phone Number [facility] [employer] [facility] Carotid doppler bilateral (02/21/2019 9:30 AM SHIPPING AND RECEIVING ASSOCIATE) Ejection Fraction [facility] [employer] [facility] Specimen Impressions Performed At Right Impression [facility] [employer] [facility] 1. There is <50% diameter reduction [...] At PV LAB - Carotid Duplex Study [facility] [employer] [facility] Demographics Patient Name Maury URBANO of Study02/21/2019 ULYSSES STEWART [id number] Visit Number [id number] Gender Male Accession Number [id number] Date of Birth1955 Jason Black MD Room [...] External Ris In - 02/22/2019 11:08 AM SHIPPING AND RECEIVING ASSOCIATE PV LAB - Carotid Duplex Study Demographics Patient Name FIDEL URBANO ate of Study 02/21/2019 SHO A ge 63 Visit Number [id number] G moira Male Accession Number [id number] D ate of 1955 Referring Emilio Black MD R oom Number Physician International Trade Teacher Katelyn Morejon I nterpreting [place]ah [place], RN, [...] Measurements:ICAPSV/CCAPS V 1.52.ICAEDV/CCAEDV 3.12. Performing Organization Address [facility] Phone Number [facility] [employer] after 10/26/2018 Insurance Payer Benefit Plan / Group Subscriber ID Type Phone A ddress [employer]UM NON-UNITED MCR xxxxxxxxx [facility] NETWK - MEDICARE MGD REPL CARE TEXANPLUS TEXANPLUS HMO ALL xxxxxxxxx Maps Contracted WELLCARE MEDICARE MGD WELLCARE MAPS xxxxxxxxx CARE (Home) [place] [address] Advance Directives For more information, please contact:[address] [phone] Code Status Date Activated Date Inactivated Comments Full Code 03/30/2016 2:10 AM 04/11/2016 8:24 PM This code status was determined by: Patient Full Code 03/31/2015 10:13 AM 04/01/2015 12:55 AM This code status was determined by: Patient
--- OUTSIDE RECORDS SUMMARY | 2019-10-27 23:22 | XMS REPORT | Continuity of Care Document ---
:1955 Author Organization [facility] t Address [address] [place] [address] [address] [place] [address] Care Team Providers Name Role Phone Moiz Montoya MD Primary Care Physician Radiology Attending Clinician Unavailable Pob, Lab Main Attending Clinician Unavailable Minnie LEIVA Attending Clinician Unavailable Elvis Attending Clinician Unavailable Christianne PURSE FRAMER Attending Clinician Unavailable Moiz Montoya MD Attending Clinician Emilio CABALLERO Attending Clinician SALENA RUSSELL Attending Clinician Unavailable SWETHA PISANO Attending Clinician Unavailable LEANA KHALIL Attending Clinician Unavailable INGRIS DANIELSON Attending Clinician Unavailable ESMER KERN Attending Clinician Unavailable THEODORE WEIR Admitting Clinician Unavailable Payers Payer Name Policy Policy Effective Expiration Source Type Number Date Date [facility] NETWK - xxxxxxxxx [facility] MEDICARE MGD CAREOPTUM [facility] NON-[facility] Medical REPLxxxxxxxxxTransplants Center TEXANPLUSTEXANPLUS O xxxxxxxxx [facility] ALLxxxxxxxxxMaps Contracted [facility] WELLCARE MEDICARE MGD xxxxxxxxx [facility] MAPSxxxxxxxxx [facility] Problems Condition Condition Condition Status Onset Resolution Last Treating Co mments Source Name Details Category Date Date Treatment Clinician Date Arterioven Arterioven Problem Active [facility] ous shunt ous Shunt 6-29 Fami ly in situ in Situ 00:00: Practic 00 e Hypertensi Hypertensi Problem Active [facility] ve heart ve Heart 5-19 Family AND renal and Renal 00:00: Prac [...] Overweight 00 e Iron Iron Problem Active [facility] deficiency Deficiency 5-18 Fa alexia anemia Anemia [...] e Type 2 Type 2 Problem Active [facility] diabetes Diabetes 5-18 Family mellitus Mellitus 00:00: Practi c with with 00 e multiple Multiple complicati Complicati ons ons Chronic Chronic Problem Active [facility] hepatitis Hepatitis -07 Fami ly C C 00:00: Practic 00 [...] Active C [facility] ed ed 04-03 [facility] - hypertensi hypertensi 00:00: Me dical on on 00 Center Cranial Cranial Disease Active [facility] St neuropathi neuropathi 04-02 Lucia kes - es, es, 00:00: Medical multiple multiple 00 Center Diplopia Diplopia Disease [facility] Center Hypertensi Hypertensi Disease Active C [facility] on on 03-29 [facility] - 00:[facility]: Medical 00 Center Type 2 Type 2 Disease Active [facility] diabetes diabetes 03-29 [facility] - mellitus mellitus 00:00: Medica l with renal with renal 00 Ce nter complicati complicati on on Chronic Chronic Disease Active [facility] hepatitis hepatitis 5-19 Assessmen Tiffanie ukes - C virus C virus 00:00: [...] at this time. Immunity Immunity Disease Active [facility] t status status 5-19 [facility] - testing testing 00:00: t & Plan: [...] today. ESRD (end ESRD (end Disease Active [facility] stage stage 5-19 [facility] - renal renal 00:00: t & Plan: [...] Drug Active Itching Itching [facility] Allergy -26 in mouth, [facility] - 00:00: states Medical 00 okay with Center shrimp/cr awfish Social History Social Habit Start Date Stop Date Quantity Comments Source Sex Assigned At [facility] Alcohol Comment 2015-07-23 2015-07-23 Quit drinking [facility] - 00:00:00 00:00:00 2005; social Medical [facility] er drinker Tobacco Comment 2015-03-31 2015-03-31 Quit 2006 [facility] - 00:00:00 00:00:00 [facility] Smoking Status Start Date Stop Date Source Light Tobacco Smoker [facility] Practice Former smoker 2018-06-05 00:00:00 2018-06-05 00:00:00 [facility] Medications Ordered Filled Start Stop Current Ordering Indication Dosage Frequency Signature Comments Components Source Medication Medication Date Date Medication? Clinician (SIG) Name Name aspirin 81 Yes 81mg QD Take [address] MG EC 4-02 by mouth [facility] - tablet 10:20: daily. Medical 33 Delta amLODIPine Yes 10mg Take [address] (NORVASC) 4-02 by mouth. [facility] - 10 MG 10:19: Medical tablet 56 Delta lactulose Yes TAKE 20 [facility] (CHRONULAC) 3-26 GRAM [facility] - 10 gram/15 00:00: (30ML) BY Al dical mL solution 00 MOUTH ONCE Ce nter A DAY NEEDED zolpidem Yes TAKE [address] (AMBIEN) 10 2-21 TABLET [facility] - mg tablet 00:00: ORALLY AT Med ical 00 BEDTIME Center NEEDED clopidogrel 2017-03 Yes 75mg QD Take [address] (PLAVIX) 75 1-06 by mouth Luke s - mg tablet 15:17: daily. Medica l 31 Delta gabapentin 2017-03 Yes 100mg Q.5D Take [address] (NEURONTIN) 1-06 mg by [facility] - 300 MG 15:14: mouth 2 Medical capsule 37 (two) Center times daily . atorvastati Yes 20mg Take [address] n (LIPITOR) 4-26 by mouth. Susie es - 20 MG 00:00: Medical tablet 00 Center hydrALAZINE 2016- Yes 50mg Q.[id number] Take [address] (APRESOLINE 2-06 [id number] tablets [facility] - ) 25 MG 00:00: [...] (two) Center tablet times daily . tiZANidine Yes 4mg Q.5D Take [address] (ZANAFLEX) 1-26 by mouth 2 Susie es - 4 MG tablet 13:32: (two) Medic al 46 times Center daily. HYDROcodone 2015- Yes 1{tbl} Take [address] [...] route. carvedilol carvedilol No 1 BID carvedilol [facility] 6.25 mg 6.25 mg 6.25 mg Family tablet Take tablet Take tablet Practic 1 tablet 1 tablet Take 1 e twice a day twice a day tablet by oral by oral twice a route. route. day by oral route. clonidine clonidine No 1 BID clonidine [facility] HCl 0.2 mg HCl 0.2 mg HCl 0.2 mg Family tablet Take tablet Take tablet Practic 1 tablet 1 tablet Take 1 e twice a day twice a day tablet by oral by oral twice a route. route. day by oral route. gabapentin gabapentin No 1capsul TID gabapentin [facility] 100 mg 100 mg e(s) 100 mg Family capsule capsule capsule Practi c Take 1 Take 1 Take 1 e capsule 3 capsule 3 capsule 3 times a day times a day times a by oral by oral day by route. route. oral route. lactulose lactulose No 15mL Q1D lactulose [facility] 10 gram/15 10 gram/15 10 gram/15 Family mL (15 mL) mL (15 mL) mL (15 mL) Practic oral oral oral e solution solution solution Take 15 mL Take 15 mL Take 15 mL every day every day every day by oral by oral by oral route as route as route as directed. directed. directed. [place] 10 Denver 10 No 1 Q4H [place] 10 Milo tiffanie mg-325 mg mg-325 mg mg-325 mg Family tablet Take tablet Take tablet Practic 1 tablet 1 tablet Take 1 e every 4 every 4 tablet hours by hours by every 4 oral route oral route hours by as needed. as needed. oral route as needed. pravastatin pravastatin No 1 Q1D pravastati [facility] 40 mg 40 mg n 40 mg Family tablet Take tablet Take tablet Practic 1 tablet 1 tablet Take 1 e every day every day tablet by oral by oral every day route. route. by oral route. Renvela 800 Renvela 800 No 1 TID Renvela [facility] mg tablet mg tablet 800 mg Fam traci Take 1 Take 1 tablet Practic tablet 3 tablet 3 Take 1 e times a day times a day tablet 3 by oral by oral times a route. route. day by oral route. Sensipar 30 Sensipar 30 No 1 Q1D Sensipar [facility] mg tablet mg tablet 30 mg Fami ly Take 1 Take 1 tablet Practic tablet tablet Take 1 e every day every day tablet by oral by oral every day route. route. by oral route. sildenafil sildenafil No 1 Q1D sildenafil [facility] 100 mg 100 mg 100 mg Family tablet Take tablet Take tablet Practic 1 tablet 1 tablet Take 1 e every day every day tablet by oral by oral every day route. route. by oral route. tizanidine tizanidine No 1 Q6H tizanidine [facility] 4 mg tablet 4 mg tablet 4 mg F amily Take 1 Take 1 tablet Practic tablet tablet Take 1 e every 6 every 6 tablet hours by hours by every 6 oral route oral route hours by as as oral route directed. directed. as directed. zolpidem 10 zolpidem 10 No 1 Q1D zolpidem [facility] mg tablet mg tablet 10 mg Fami ly Take 1 Take 1 tablet Practic tablet tablet Take 1 e every day every day tablet by oral by oral every day route at route at by oral bedtime. bedtime. route at bedtime. Immunizations Ordered Immunization Filled Immunization Date Status Commen ts Source Name Name pneumococcal pneumococcal 2019-01-04 Completed [facility] alexia conjugate PCV 13 conjugate PCV 13 00:00:00 Pr actice influenza, influenza, 2019-01-04 [facility] injectable, injectable, 00:00:00 Practice quadrivalent quadrivalent PPD Test 2016-04-03 [address]pleted [facility] 00:00:00 [facility] Vital Signs Vital Name Observation Time Observation Value Comments Source Height 2019-09-03 00:00:00 66 [in_i] [facility] Height 2019-07-23 00:00:00 66 [in_i] [facility] BMI (Body Mass Index) 2019-07-23 00:00:00 25.8 kg/m2 [facility] Body Weight 2019-07-23 00:00:00 160 [lb_av] [facility] Systolic blood 2019-02-21 13:35:00 140 mm[Hg] [facility] Diastolic blood 2019-02-21 13:35:00 42 mm[Hg] [facility] S t [facility] Heart rate 2019-02-21 13:35:00 74 /min [facility] Respiratory rate 2019-02-21 13:35:00 20 /min [facility] Body height 2019-02-21 11:19:00 167.6 cm [facility] Body weight Measured 2019-02-21 11:19:00 74.844 kg [facility] BMI 2019-02-21 11:19:00 26.63 kg/m2 [facility] Procedures Procedure Date / Time Performing Clinician Source Performed SARS-COV2/RT-PCR ([facility] & 2019-10-04 09:58:[address] [facility] SARS-COV2/RT-PCR ([facility] & 2019-09-30 20:00:[address] [facility] PERIPHERAL VASCULAR REPORT 2019-02-22 21:22:39 Provider, Default [facility] - - SCAN Scanning [facility] ECHOCARDIOGRAM REPORT - 2019-02-21 21:21:31 Provider, Default [facility] SCAN Scanning [facility] NM MYOCARDIAL PERFUSION 2019-02-21 14:47:00 Wayne Jhvaeri [facility] - SPECT, PHARM(LEXISCAN) Medical C enter TREADMILL 2019-02-21 13:28:08 Unknown, 7 Doctor [facility] TOLERANCE(NON-NUCLEAR Medical Ce nter TREADMILL) ECG 12-LEAD 2019-02-21 13:04:33 Unknown, 7 Doctor [facility] ECG 12-LEAD 2019-02-21 13:03:22 Unknown, [address] [facility] [address] [facility] 2D ECHO W/ DOPPLER 2019-02-21 10:02:[address] [facility] (CW/PW/COLOR) [facility] CAROTID DOPPLER BILATERAL 2019-02-21 09:30:00 Wayne Jhaveri [facility] Plan of Care Planned Activity Planned Date Details Comments Source Future Scheduled Test 2019-11-[address] [facility] - 00:00:00 (#1) [code = [facility] INFLUENZA VACCINE (#1)] Future Scheduled Test 2019-03-30 Lipid panel [facility] - 00:00:00 (procedure) [code = [facility] 72019332] Future Scheduled Test 2016-09-[address] [facility] - 00:00:00 measurement [facility] (procedure) [code = 33051706] Future Scheduled Test 2016-06-11 [facility] - 00:[facility]00 malignant neoplasm of [facility] colon (procedure) [code = 708080598] Future Scheduled Test 2015-03-07 MEDICARE ANNUAL [facility] [...] 00:00:00 examination Medical Center (regime/therapy) [code = 980277579] Future Scheduled Test 1967-08-29 Urine screening for [facility] - 00:00:00 protein (procedure) Medical Center [code = 403496542] Future Scheduled Test 1963-08-[address] [facility] - 00:00:00 2-64 YEARS AT RISK (1 Medica l Center of 3 - PCV13) [code = PNEUMOCOCCAL VACCINE 2-64 YEARS AT RISK (1 of 3 - PCV13)] Future Appointment 2019-11-03 Veronica Trimble, V illage Family 00:00:00 [address]; [address] [address], [place] [address] Encounters Start End Encounter Admission Attending Care Care Encounter Source Date/Time Date/Time Type Type Clinicians Facility Department ID 2019-10-10 2019-10-10 Hospital Radiology [facility] [id number] 12:34:44 23:59:00 Encounter [place] [id number] [place] [id number] [place] [id number] 2019-10-10 2019-10-10 Academic Interventionist Rodney Steen [facility] [id number] 12:38:05 12:53:05 Visit Lab Main [place] [id number] [place] [id number] Professio [id number] nal 353 Building 2019-09-03 2019-09-03 Veronica [facility] - [id number] V illage 00:00:00 00:00:00 Bigg elkins HYDROBLASTER: Medical - Practi keo [address] VM_HOU_V@ e [facility], [address] [address], [place] [address] , Ph. 2019-07-23 2019-07-23 [facility] [place] - [id number] V illage 00:00:00 00:00:00 [facility] traci elkins HYDROBLASTER: Medical - Practi c [address]_V@_ e [facility], [address], [place] [address] , Ph. Results Test Description Test Time Test Comments Results Result Comments Source SARS-CoV2/RT-PCR ([facility] & Ref Labs) 2019-10-04 22:28:00 Test Item Value Reference Range Interpretation Comme nts SARS-COV2/RT-PCR (test code = Negative Not Detected, 39423-4) Negative, See external report for linked test SARS-COV-2 PERFORMING LAB [facility] SUZI (test code = 53080-9) STEVEN (test code = STEVEN) Negative result for this test determines that SARS-CoV-2 RNA was not present in the specimen above the Limit of Detection (LOD). However, Negative results do not preclude SARS-CoV-2 infection and should not be used as the sole basis for treatment or patient management decisions. Negative results must be combined with clinical observations, patient history, and epidemiological information. A false negative result may occur if a specimen is improperly collected, transported or handled. A false negative result should be considered if patient's recent exposures or clinical presentation indicate that COVID-19 (SARS-CoV-2) is likely and diagnostic tests for other causes of illness are negative. Re-testing should be considered in cases of suspected [...] Food and Drug Administration (FDA) cleared or approved. This is a modified version of an approved [...] of the Act. Fact Sheet for Healthcare Providers:https://www.Veosearch. com/sites/default/files/produ ct/documents/Fact_Sheet_HC_Danny bradshawfauklph_Kcqr_PMNX-PjG-2.pdf Fact Sheet for Healthcare Patients:https://www.Veosearch.PrestaShop om/sites/default/files/produc t/documents/Fact_Sheet_Hayden bm_Bodu_ZNYX-IyW-7.pdf Performing Laboratory:[facility] [place] [address] [facility] & REF LABS)2019-10-04 22:28:00 Test Item Value Reference Range Interpretation Comments SARS-COV2/RT-PCR (test Negative Not Detected, Negative, code = 8158003) See external report for linked test SARS-COV-2 PERFORMING LAB [facility] SUZI (test code = 7757553) Negative result for this test determines that SARS-CoV-2 RNA was not present in the specimen above the Limit of Detection (LOD). However, Negative results do not preclude SARS-CoV-2 infection and should not be used as the sole basis for treatment or patient management decisions. Negative results mustbe combined with clinical observations, patient history, and epidemiological information. A false negative result may occur if a specimen is improperly collected, transported or handled. A false negative result should be considered if patient's recent exposures or clinical presentation indicate that COVID-19 (SARS-CoV-2) is likely and diagnostic tests for other causes of illness are negative. Re-testing should be considered in cases of suspected false negatives.The limit of detection for this assay is 800 copies/mL.This SARS CoV-2 test is a real-time RT-PCR test intended for the qualitative detection of nucleic acid from SARS-CoV-2 in a nasopharyngeal swab specimen collected from individuals susp ected of COVID-19 by their healthcare provider.This test has not been Food and Drug Administration (FDA) cleared or approved. This is a modified version of an approved [...] 564(g) of the Act.Fact Sheet for Healthcare Providers:https://www.Moment.me/sites/default/files/product/documents/Fact_Shee p_GP_Tfmhjfebc_Onlj_MGJS-VpT-4.pdfFact Sheet for Healthcare Patients:https://www.Moment.me/sites/default/files/product/ documents/Seel_Gkvek_Gasfacce_Zykb_FJMX-CaQ-1.pdfPerforming Laboratory:[facility], [place] [address]TPFY-VPP2/RT-PCR ([facility] & REF LABS)2019-10-01 04:23:00 Test Item Value Reference Range Interpretation Comments SARS-COV2/RT-PCR (test code Negative Not Detected, Negative, = 3055462) See external report for linked test SARS-COV-2 PERFORMING LAB [facility] (test code = 1323291) Negative results do not preclude SARS-CoV-2 infection [...] of the Act.Fact Sheet for Healthcare Pro viders:https://www.SeptRx/Documents/Xpert%20Xpress%20SARS%20CoV-2/Fact%20Sh eets/302-3802%74GHUF-BIB-0%20HEALTHCARE%20PROVIDERS%20FACT%20SHEET.pdfFact Sheet for Healthcare Patients:https://www.Geewa/Documents/Xpert%20Xpress%20SARS%20CoV-2/Fact%20Sheets/302-3801%20SARS-COV -2%20PATIENT%20FACT%20SHEET.pdfPerforming Laboratory:[facility], [place] [address]Hohjvoybe tolerance(Non-Nuclear Treadmill)2019-03-18 12:21:27Interface, External Ris In - [...] MD GONZALEZ JORGE ([id number]) on 03/18/2019 12:21:22 [facility] Center[facility]otid doppler [id number] 11:08:18Ejection FractionSLEH ECHO HEARTLAB MKCKESSON CPACSRight Impression1. [...] Study 02/21/2019 SHO Age 63 Visit Number [id number] Gender Male Accession Number [id number] Date of 1955 Referring Emilio Black MD Room Number Physician Youth Pastor Katelyn Morejon Interpreting Savanah Vegas RN, RVT Physician ProcedureType of Study: Cerebral: [...] the left side. - Additional Measurements:ICAPSV/CCAPSV 1.52.ICAEDV/CCAEDV 3.12.[facility] MYOCARD IMAGING, MULTI, PHARM, [id number] 15:54:00Referring: Dr. Schultz EtheridgeFINAL REPORT PROCEDURE: MYOCARDIAL PERFUSION SPECT IMAGING (Rest/Stress)CPT CODE: 45764 INDICATION: Renal transplant evaluation, hypertension, shortness of [...] MDReport Verified Date/Time: 02/21/2019 15:54:30 Reading Location: [place] [id number] Reading Room NM myocardial perfusion SPECT,pharm(Lexiscan) 2019-02-21 15:54:00Interface, External Ris In - 02/21/2019 3:56 PM CSTFINAL REPORT PROCEDURE: MYOCARDIAL PERFUSION SPECT IMAGING (Rest/Stress)CPT CODE: 24126 INDICATION: Renal transplant evaluation, hypertension, shortness of [...] Darnell Verified Date/Time: 02/21/2019 15:54:30 Reading Location: [address] Reading Room [facility] Center[facility] 12 [id number] 14:27:15Interface, External Ris In - 02/21/2019 2:27 PM CSTVentricular Rate 60 BPMAtrial Rate 60 BPMP-R Interval 158 msQRS Duration 92 msQ-T Interval 474 msQTC Calculation(Bazett) 474 msP Stearns 54 degreesR Stearns 24 degreesT Stearns -74 degreesNormal sinus rhythmLeft atrial enlargementT wave abnormality, consider i nferolateral ischemiaProlonged QTAbnormal ECGConfirmed by MD Lyons Roberto ([id number]) on 02/21/2019 2:27:14 [facility]2D Echo W/Doppler(CW/PW/Color)2019-02-21 12:49:06Ejection FractionSLEH ECHO HEARTLAB MKCKESSON CPACSInterface, External Ris In - 02/21/2019 12:49 PM CSTTransthoracic Echocardiography Report (TTE) Demographics Patient Name FIDEL LYNCH Date of Study 02/21/2019 SHO Gender Male Visit Number [id number] Race Other Room Number Number Date of 1955 Referring Physician Emilio Black MD Age 63 year(s) Youth Pastor Dariel Avila Agile Developer Falguni Patel [facility] Interpreting Bry Pendleton MD Physician Procedure Type [...] CO: 5.99 l/min LVOT CI: 3.26 l/min/m^2[facility]2018-[facility] 17:11:00 Test Item Value Reference Range Interpretation Comments PROSTATE SPECIFIC ANTIGEN (BEAKER) 0.8 ng/mL 0.0-4.0 (test code = 844) HEPATITIS B SURFACE [id number] 17:11:00 Test Item Value Reference Range Interpretation Comments HEPATITIS B SURFACE ANTIBODY 612.9 mIU/mL <8.0 H (BEAKER) (test code = 647) PROTHROMBIN [id number] 14:59:00 Test Item Value Reference Range Interpretation Comments PROTIME (BEAKER) (test code = 15.6 seconds 11.7-14.7 H 759) INR (BEAKER) (test code = 370) 1.2 <=5.9 RECOMMENDED COUMADIN/WARFARIN INR THERAPY RANGESSTANDARD DOSE: 2.0 - 3.0 Includes: PROPHYLAXIS forvenous thrombosis, systemic embolization; TREATMENT for venous thrombosis and/or pulmonary embolus.HIGH RISK: Target INR is 2.5-3.5 for patients with mechanical heart valves.BASIC METABOLIC [id number] 14:58:00 Test Item Value Reference Range Interpretation [...] APPLICABLE FOR DIALYSIS PATIEN TS. HEPATIC FUNCTION [id number] 14:53:00 Test Item Value Reference Range Interpretation [...] 6-55 347) CBC W/PLT COUNT & AUTO [id number] 14:19:00 Test Item Value Reference Range Interpretation [...] = 2801) FLOW PRA CLASS I AND [id number] 12:02:00 Test Item Value Reference Range Interpretation Comments DATE OF SERUM (BEAKER) 526343 (test code = 2289) SERUM # (BEAKER) (test 067219 code = 2290) FLOW PRA CLASS I AND II See Scanned Report (test code = 2421) HEPATITIS B SURFACE [id number] 13:18:00 Test Item Value Reference Range Interpretation Comments HEPATITIS B SURFACE ANTIBODY < mIU/mL <8.0 (BEAKER) (test code = 647) [id number] 13:08:00 Test Item Value Reference Range Interpretation Comments PROSTATE SPECIFIC ANTIGEN (BEAKER) 0.9 ng/mL 0.0-4.0 (test code = 844) FLOW PRA CLASS I AND [id number] 16:00:00 Test Item Value Reference Range Interpretation Comments DATE OF SERUM (BEAKER) 6040312 (test code = 2289) SERUM # (BEAKER) (test 10290705 code = 2290) FLOW PRA CLASS I AND II See Scanned Report (test code = 2421) BASIC METABOLIC [id number] 15:51:00 Test Item Value Reference Range Interpretation [...] APPLICABLE FOR DIALYSIS PATIEN TS. HEPATIC FUNCTION [id number] 15:48:00 Test Item Value Reference Range Interpretation [...] 6-55 347) CBC W/PLT COUNT & AUTO [id number] 15:11:00 Test Item Value Reference Range Interpretation [...] (test code = 417) 0.00AFB CULTURE + [id number] 19:58:00 Test Item Value Reference Range Interpretation Comments CULTURE (BEAKER) (test No acid-fast bacilli code = 1095) isolated in 42 days AFB SMEAR (BEAKER) No acid fast bacilli (test code = 994) seen AFB CULTURE + [id number] 19:58:00 Test Item Value Reference Range Interpretation Comments CULTURE (BEAKER) (test No acid-fast bacilli code = 1095) isolated in 42 days AFB SMEAR (BEAKER) No acid fast bacilli (test code = 994) seen AFB CULTURE + [id number] 18:21:00 Test Item Value Reference Range Interpretation Comments CULTURE (BEAKER) (test No acid-fast bacilli code = 1095) isolated in 42 days AFB SMEAR (BEAKER) No acid fast bacilli (test code = 994) seen POCT-GLUCOSE [id number] 10:30:00 Test Item Value Reference Range Interpretation Comments POC-GLUCOSE METER 468 mg/dL 70-110 HH TESTED AT [facility] 6720 ([facility]) (test code = SHELTONCONY NUÑEZ SC 1538) [address] CREATINE KINASE (CK), TOTAL AND [id number] 08:31:00 Test Item Value Reference Range Interpretation Comments CREATINE KINASE TOTAL (BEAKER) 42 U/L 29-200 (test code = 380) CREATINE KINASE-MB (BEAKER) (test 2.3 ng/mL 0.0-6.6 code = 750) CREATINE KINASE-MB INDEX (BEAKER) 5.5 % (test code = 395) Effective 01/21/2014: CK-MB Reference Range ChangeNew: 0.0-6.6 Previous: 0.0-4.9CK-MB Reference Range:<6.7 Normal6.7-10.0 Borderline>10.0 AbnormalTROPONIN [id number] 08:31:00 Test Item Value Reference Range Interpretation [...] acute neurological disease, and persistent tachyarrhythmia.BASIC METABOLIC [id number] 08:27:00 Test Item Value Reference Range Interpretation [...] S NOT APPLICABLE FOR DIALYSIS PATIEN TS. [id number] 08:24:00 Test Item Value Reference Range Interpretation Comments MAGNESIUM (BEAKER) (test code = 2.4 mg/dL 1.6-2.6 627) CBC W/PLT COUNT & AUTO [id number] 08:17:00 Test Item Value Reference Range Interpretation [...]
[2019-10-27] MEDS ORDERED: FENTANYL CITR 100 MCG/2 ML ONE (23:33)
[2019-10-27] MEDS ORDERED: DIAZEPAM 10 MG/2 ML INJ SYRINGE ONE (23:34)
--- NOTE | 2019-10-28 00:33 | EDPHYS ---
Physician Documentation [facility] Name: Alexis Urbano Age: 64 yrs Sex: Male : 1955 Arrival Date: 10/27/2019 Time: 23:20 Bed 8 Private MD: ED Physician Fito Ward HPI: 10/27 00:02 This 64 yrs old Male presents to ER via Ambulatory with complaints of left jmm knee pain. 00:02 Details of fall: The patient fell from an upright position, while walking. Onset: The jmm symptoms/episode began/occurred acutely, just prior to arrival. This is a 64 year old male with a history of htn, ESRD, GERD that presents to the ED with complaints of left knee pain which radiates up and down his left leg. Patient states he slipped, hyperflexing his left knee and landing directly on his left knee. Patient states he felt a pop. . Historical: - Allergies: 10/26 23:28 No Known Allergies; jd3 - Home Meds: 23:28 Albuterol Inhl every 4-6 hours [Active]; amlodipine oral [Active]; aspirin 81 mg Oral jd3 chew 1 tab once daily [Active]; bumetanide 2 mg Oral tab 1 tab once daily [Active]; clonidine HCl 0.2 mg Oral tab 2 times per day [Active]; doxazosin 2 mg Oral tab 1 tab once daily [Active]; gabapentin 100 mg Oral cap 3 times per day [Active]; hydralazine 100 mg Oral tab 3 times per day [Active]; hydrocodone-acetaminophen 10-325 mg Oral tab every 6 hours [Active]; levamir [Active]; Metoprolol Tartrate Oral [Active]; Plavix Oral [Active]; pravastatin 40 mg Oral tab 1 tab once daily [Active]; tizanidine 4 mg Oral tab twice a day [Active]; Unknown blood thinner [Active]; Zanaflex Oral [Active]; - PMHx: 23:28 Hypertension; ESRD; Dialysis; M,W,F; GERD; jd3 - PSHx: 23:28 left arm dialysis shunt; jd3 - Immunization history:: Adult Immunizations unknown. - Social history:: Smoking status: unknown. ROS: 10/27 00:02 Constitutional: Negative for fever, chills, and weight loss, Cardiovascular: Negative [facility] for chest pain, palpitations, and edema, Respiratory: Negative for shortness of breath, cough, wheezing, and pleuritic chest pain. MS/extremity: Positive for injury or acute deformity, pain. All other systems are negative. Exam: 00:02 Constitutional: This is a well developed, well nourished patient who is awake, alert, jmm and in no acute distress. Head/Face: atraumatic. Eyes: EOMI, no conjunctival erythema appreciated ENT: Moist Mucus Membranes Neck: Trachea midline, Supple Chest/axilla: Normal chest wall appearance and motion. Cardiovascular: Regular rate and rhythm. No edema appreciated Respiratory: Normal respirations, no respiratory distress appreciated Abdomen/GI: Non distended, soft Back: Normal ROM Skin: General appearance color normal 00:02 Musculoskeletal/extremity: left anterior knee pain on palpation, compartments are soft, full dorsalis pulse, NVI. 00:02 Skin: Appearance: Color: normal in color. 00:02 Neuro: Orientation: is normal, Mentation: is normal, Memory: is normal. 00:02 Psych: Behavior/mood is pleasant, cooperative. Vital Signs: 10/26 23:28 Temp 98.2; mg2 23:28 BP 153 / 68; Pulse 57; Resp 17 S; Temp 98.2(O); Pulse Ox 98% on R/A; Weight 78.02 kg jd3 (R); Height 5 ft. 6 in. (167.64 cm) (R); Pain 10/10; 08 00:53 BP 157 / 63; Pulse 60; Resp 18; Pulse Ox 98% on R/A; ea 01:30 BP 162 / 77; Pulse 64; Resp 19; Pulse Ox 100% on R/A; ea 02:00 BP 180 / 76; Pulse 65; Resp 19; Temp 98.6; Pulse Ox 100% on R/A; ea 10/26 23:28 Body Mass Index 27.76 (78.02 kg, 167.64 cm) jd3 MDM: 10/26 23:25 Patient medically screened. [facility] 10/27 00:28 ED course: Unable to contact Dr. Pierre whom performed original total knee jmm replacement. I discussed the patient with Dr. Gary whom advised to transfer the patient.. 00:31 Data reviewed: vital signs, nurses notes. Counseling: I had a detailed discussion with vicki the patient and/or guardian regarding: the historical points, exam findings, and any diagnostic results supporting the discharge/admit diagnosis, radiology results, the need to transfer to another facility. 10/26 23:22 Order name: Knee Left 3 View XRAY [facility] 10/26 23:22 Order name: Femur Left XRAY [facility] 10/26 23:22 Order name: Tib Fib Left XRAY [facility] 10/26 23:24 Order name: Saline Lock; Complete Time: 23:28 [facility] 10/27 02:12 Order name: Knee Immobilizer; Complete Time: 02:12 ea Administered Medications: 10/26 23:30 Drug: fentaNYL (PF) 50 mcg {Note: RASS 1 .} Route: IVP; Site: right antecubital; ea 10/27 00:49 Follow up: Response: No adverse reaction; RASS: Alert and Calm (0) [facility] 10/26 23:30 Drug: Valium 2 mg Route: IVP; Site: right antecubital; ea 10/27 00:49 Follow up: Response: No adverse reaction [facility] 10/26 23:54 Drug: Dilaudid 1 mg {Note: RASS 0.} Route: IVP; Site: right antecubital; bb 10/27 00:49 Follow up: Response: No adverse reaction; Pain is unchanged, physician notified mg2 00:50 Drug: Dilaudid 1 mg Route: IVP; Site: right antecubital; mg2 01:09 Follow up: Response: Pain is decreased; RASS: Alert and Calm (0) mg2 02:10 Drug: Dilaudid 1 mg {Note: RASS 1.} Route: IVP; Site: right antecubital; ea 02:12 Follow up: Response: medication adminsitered at transfer ea Disposition: 03:36 Co-signature as Attending Physician, Fito Ward MD. rn Disposition: 10/28/19 00:33 Transfer ordered to [facility]. Diagnosis is Distal Femur Fracture. - Reason for transfer: Higher level of care. - Accepting physician is Betsy. - Condition is Stable. - Problem is new. - Symptoms are unchanged. Signatures: Dispatcher [employer] EDJim Barrios PA PA jmm Ballard, Brenda RN RN Fito Osborne MD MD rn Antunez, Elena RN RN Bright Archer RN RN jd3 Maciel High RN RN mg2 Corrections: (The following items were deleted from the chart) 02:15 00:33 10/28/2019 00:33 Transfer ordered to [facility]. Diagnosis is Distal ea Femur Fracture. Reason for transfer: Higher level of care. Accepting physician is Betsy. Condition is Stable. Problem is new. Symptoms are unchanged. [facility]
--- NOTE | 2019-10-28 00:33 | ER ---
Nurse's Notes [facility] Name: Aelxis Urbano Age: 64 yrs Sex: Male : 1955 Arrival Date: 10/27/2019 Time: 23:20 Bed 8 Private MD: Diagnosis: Distal Femur Fracture Presentation: 10/26 23:21 Chief complaint: EMS states: "He slipped on his drink that he dropped. no LOC, but he jd3 heard a pop.". Coronavirus screen: At this time, the client does not indicate any symptoms associated with coronavirus-19. Ebola Screen: Patient negative for fever greater than or equal to 101.5 degrees Fahrenheit, and additional compatible Ebola Virus Disease symptoms. Initial Sepsis Screen: Does the patient meet any 2 criteria? No. Patient's initial sepsis screen is negative. Does the patient have a suspected source of infection? No. Patient's initial sepsis screen is negative. Risk Assessment: Do you want to hurt yourself or someone else? Patient reports no desire to harm self or others. Onset of symptoms was October 27, 2019. 23:21 Method Of Arrival: Ambulatory jd3 23:21 Acuity: JOEL 3 jd3 Historical: - Allergies: 23:28 No Known Allergies; jd3 - Home Meds: 23:28 Albuterol Inhl every 4-6 hours [Active]; amlodipine oral [Active]; aspirin 81 mg Oral jd3 chew 1 tab once daily [Active]; bumetanide 2 mg Oral tab 1 tab once daily [Active]; clonidine HCl 0.2 mg Oral tab 2 times per day [Active]; doxazosin 2 mg Oral tab 1 tab once daily [Active]; gabapentin 100 mg Oral cap 3 times per day [Active]; hydralazine 100 mg Oral tab 3 times per day [Active]; hydrocodone-acetaminophen 10-325 mg Oral tab every 6 hours [Active]; levamir [Active]; Metoprolol Tartrate Oral [Active]; Plavix Oral [Active]; pravastatin 40 mg Oral tab 1 tab once daily [Active]; tizanidine 4 mg Oral tab twice a day [Active]; Unknown blood thinner [Active]; Zanaflex Oral [Active]; - PMHx: 23:28 Hypertension; ESRD; Dialysis; M,W,F; GERD; jd3 - PSHx: 23:28 left arm dialysis shunt; jd3 - Immunization history:: Adult Immunizations unknown. - Social history:: Smoking status: unknown. Screenin:29 Abuse screen: Denies threats or abuse. Denies injuries from another. Nutritional mg2 screening: No deficits noted. Tuberculosis screening: No symptoms or risk factors identified. Fall Risk IV access (20 points). Assessment: 23:28 General: Appears uncomfortable, Behavior is cooperative. Pain: Complains of pain in mg2 left leg. Neuro: Level of Consciousness is awake, alert, obeys commands, Oriented to person, place, time, situation. Cardiovascular: Capillary refill < 3 seconds Patient's skin is warm and dry. Respiratory: Airway is patent Respiratory effort is even, unlabored, Respiratory pattern is regular, symmetrical. GI: No signs and/or symptoms were reported involving the gastrointestinal system. : No signs and/or symptoms were reported regarding the genitourinary system. EENT: No signs and/or symptoms were reported regarding the EENT system. Derm: Skin is intact, is healthy with good turgor, Skin is pink, warm \\T\\ dry. normal. Musculoskeletal: Circulation, motion, and sensation intact. Capillary refill < 3 seconds, Reports pain in left leg. 23:53 Reassessment: X-ray at bedside pt groaning loudly states pain medication is not working bb notified Jim ROSA new orders received pt medicated see MAY. 10/27 00:50 Reassessment: patient in pain. medication given. mg2 00:55 Reassessment: report given to ABBIE Jackson of [facility] ED. mg2 01:08 Reassessment: Lulu Mata (sister) [phone]. mg2 02:13 Reassessment: Patient and/or family updated on plan of care and expected duration. Pain ea level reassessed. Patient is alert, oriented x 3, equal unlabored respirations, skin warm/dry/pink. [facility] at facility for transfer. Report given to EMS. PT left ED via stretcher per EMS. Pt tolerating well. Vital Signs: 10/26 23:28 Temp 98.2; mg2 23:28 BP 153 / 68; Pulse 57; Resp 17 S; Temp 98.2(O); Pulse Ox 98% on R/A; Weight 78.02 kg jd3 (R); Height 5 ft. 6 in. (167.64 cm) (R); Pain 10/10; 10/27 00:53 BP 157 / 63; Pulse 60; Resp 18; Pulse Ox 98% on R/A; ea 01:30 BP 162 / 77; Pulse 64; Resp 19; Pulse Ox 100% on R/A; ea 02:00 BP 180 / 76; Pulse 65; Resp 19; Temp 98.6; Pulse Ox 100% on R/A; ea 10/26 23:28 Body Mass Index 27.76 (78.02 kg, 167.64 cm) jd3 ED Course: 10/26 23:20 Patient arrived in ED. jd3 23:21 Jim Fuentes PA is PHCP. [facility] 23:21 Fito Ward MD is Attending Physician. [facility] 23:23 Maciel High, ABBIE is Primary Nurse. mg2 23:23 No provider procedures requiring assistance completed. Inserted saline lock: 20 gauge mg2 in right antecubital area, using aseptic technique. 23:24 Triage completed. jd3 23:28 Arm band placed on. mg2 23:29 Patient has correct armband on for positive identification. Pulse ox on. NIBP on. Door mg2 closed. Warm blanket given. 10/27 00:13 called [facility] and left a voicemail for Dr. Jin Sanchez MD. mw2 00:48 called [facility] spoke to [place] ETA will be 1 hour to 1 hour 30 minutes. mw2 00:53 Knee Left 3 View XRAY In Process Unspecified. EDMS 00:55 Femur Left XRAY In Process Unspecified. EDMS 00:55 Tib Fib Left XRAY In Process Unspecified. EDMS 02:13 Patient transferred, IV remains in place. ea Administered Medications: 10/26 23:30 Drug: fentaNYL (PF) 50 mcg {Note: RASS 1 .} Route: IVP; Site: right antecubital; ea 10/27 00:49 Follow up: Response: No adverse reaction; RASS: Alert and Calm (0) mg2 10/26 23:30 Drug: Valium 2 mg Route: IVP; Site: right antecubital; ea 10/27 00:49 Follow up: Response: No adverse reaction mg2 10/26 23:54 Drug: Dilaudid 1 mg {Note: RASS 0.} Route: IVP; Site: right antecubital; bb 10/27 00:49 Follow up: Response: No adverse reaction; Pain is unchanged, physician notified mg2 00:50 Drug: Dilaudid 1 mg Route: IVP; Site: right antecubital; mg2 01:09 Follow up: Response: Pain is decreased; RASS: Alert and Calm (0) mg2 02:10 Drug: Dilaudid 1 mg {Note: RASS 1.} Route: IVP; Site: right antecubital; ea 02:12 Follow up: Response: medication adminsitered at transfer ea Outcome: 00:33 ER care complete, transfer ordered by . vicki 02:13 Transferred by ground EMS to [facility]. ea 02:13 Condition: stable 02:13 Instructed on the need for transfer. 02:15 Patient left the ED. ea Signatures: Dispatcher [employer] EDMS Jim Fuentes PA PA jmm Ballard, Brenda RN RN Adeline Adrian RN RN ea Davies, Jonathon, RN RN Kourtney Ferrell [facility] Maciel High RN RN mg2
[2019-10-28] MEDS ORDERED: HYDROMORPHONE HCL 1 MG/ML INJ ONE ×3 (01:00→02:14)
--- NOTE | 2019-10-28 08:33 | RAD REPORT ---
EXAM DESCRIPTION: RAD - Femur Left - 10/28/2019 12:54 am CLINICAL HISTORY: fall Fall, pain COMPARISON: Knee Left 3 View dated 10/28/2019; Tib Fib Left dated 10/28/2019 FINDINGS: Left femur, knee and tibia/ fibula- multiple projections are submitted The bones are osteopenic. Oblique fracture of the distal fibula is seen proximal to femoral total kne e arthroplasty component. Moderate soft tissue swelling. Prominent vascular calcifications seen.
--- NOTE | 2019-10-29 09:45 | RAD REPORT ---
EXAM DESCRIPTION: RAD - Knee Left 3 View - 10/28/2019 12:53 am CLINICAL HISTORY: Fall Fall, pain COMPARISON: Knee Left 3 View dated 10/28/2019; Tib Fib Left dated 10/28/2019 FINDINGS: Left femur, knee and tibia/ fibula- multiple projections are submitted The bones are osteopenic. Oblique fracture of the distal fibula is seen proximal to femoral total kne e arthroplasty component. Moderate soft tissue swelling. Prominent vascular calcifications seen.
--- NOTE | 2019-10-29 09:46 | RAD REPORT ---
EXAM DESCRIPTION: RAD - Tib Fib Left - 10/28/2019 12:55 am CLINICAL HISTORY: Fall Fall, pain COMPARISON: Knee Left 3 View dated 10/28/2019; Tib Fib Left dated 10/28/2019 FINDINGS: Left femur, knee and tibia/ fibula- multiple projections are submitted The bones are osteopenic. Oblique fracture of the distal fibula is seen proximal to femoral total kne e arthroplasty component. Moderate soft tissue swelling. Prominent vascular calcifications seen.
[2019-11-01 20:59] VITALS: TEMP 98.2; O2SAT 98
[2019-11-01 21:00] VITALS: BP 157/63
== END 2019-10-28 02:15 | disposition short-term general hospital (02) ==
LOC: ER 23:19
DX: S72.402A Unspecified fracture of lower end of left femur, initial encounter for closed fracture (principal); W01.0XXA Fall on same level from slipping, tripping and stumbling without subsequent striking against object, initial encounter; Y93.01 Activity, walking, marching and hiking; Y92.9 Unspecified place or not applicable; I12.0 Hypertensive chronic kidney disease with stage 5 chronic kidney disease or end stage renal disease; N18.6 End stage renal disease; Z79.01 Long term (current) use of anticoagulants; Z79.82 Long term (current) use of aspirin; Z99.2 Dependence on renal dialysis
CPT/HCPCS: 73562; 73552; 73590; 96375; 96374; 99285; J3360; J3010; J1170 ×2

== ENCOUNTER 2019-11-08 19:29 | Inpatient (IN) | payer OTHER ==
--- OUTSIDE RECORDS SUMMARY | 2019-11-08 19:32 | XMS REPORT | Clinical Summary ---
:1955 Author Organization [facility] Address [address] [place] [address] Care Team Providers Name Role Phone Moiz [...] Coordination Note PCP- Rajendra ALONZO- Dr. Linares [phone] Problem Noted Date Acute respiratory failure with [...] of hepa titis C virus infection after 11/07/2018 Immunizations Name Dates Previously Given Next Due [...] Taken Blood Pressure 140/42 02/21/2019 1:35 PM MAKING MACHINE OPERATOR Pulse 74 02/21/2019 1:35 PM MAKING MACHINE OPERATOR Temperature - - Respiratory Rate 20 02/21/2019 1:35 PM MAKING MACHINE OPERATOR Oxygen Saturation - - Inhaled Oxygen Concentration - - Weight 74.8 kg (165 lb) 02/21/2019 11:19 AM MAKING MACHINE OPERATOR Height 167.6 cm (5' 6") 02/21/2019 11:19 AM MAKING MACHINE OPERATOR Body Mass Index 26.63 02/21/2019 11:19 AM MAKING MACHINE OPERATOR Plan of Treatment Health Maintenance Due Date [...] Name Priority Date/Time Associated Comments Diagnosis SARS-COV2/RT-PCR ([facility] Routine 10/04/2019 9:58 R esults for this & REF LABS) AM CDT procedure are i n the results section. SARS-COV2/RT-PCR ([facility] Routine 09/30/2019 8:00 R esults for this & REF LABS) PM CDT procedure are i n the results section. PERIPHERAL VASCULAR 02/22/2019 9:22 REPORT - SCAN PM MAKING MACHINE OPERATOR ECHOCARDIOGRAM REPORT - 02/21/2019 9:21 SCAN PM MAKING MACHINE OPERATOR NM MYOCARDIAL PERFUSION Routine 02/21/2019 2:47 Pre-transplan t Results for this SPECT, PHARM(LEXISCAN) PM MAKING MACHINE OPERATOR evaluation for pro cedure are in ESRD (end stage the results renal disease) section. Essential hypertension Bilateral carotid artery occlusion Diastolic dysfunction, left ventricle TREADMILL Routine 02/21/2019 1:28 Results for this TOLERANCE(NON-NUCLEAR PM MAKING MACHINE OPERATOR proced ure are in TREADMILL) the results section. ECG 12-LEAD Routine 02/21/2019 1:04 Results for this PM MAKING MACHINE OPERATOR procedure are i n the results section. ECG 12-LEAD Routine 02/21/2019 1:04 PM MAKING MACHINE OPERATOR Procedure Note - Interface, External Ris In - 02/21/2019 1:56 PM MAKING MACHINE OPERATOR Ventricular Rate 60 BPM Atrial Rate 60 BPM P-R Interval 158 ms QRS Duration 92 ms Q-T Interval 474 ms QTC Calculation(Bazett) 474 ms P [place] 54 degrees R [place] 24 degrees T [place] -74 degrees Normal sinus rhythm Possible Left atrial enlarge ment T wave abnormality, consider inferolateral ischemia Prolonged QT Abnormal ECG ECG 12-LEAD Routine 02/21/2019 1:03 PM MAKING MACHINE OPERATOR Resu lts for this procedure are in the results section . ECG 12-LEAD Routine 02/21/2019 1:03 PM MAKING MACHINE OPERATOR Procedure Note - Interface, External Ris In - 02/21/2019 1:56 PM MAKING MACHINE OPERATOR Ventricular Rate 61 BPM Atrial Rate 61 BPM P-R Interval 156 ms QRS Duration 100 ms Q-T Interval 478 ms QTC Calculation(Bazett) 481 ms P [place] 59 degrees R [place] 33 degrees T [place] -80 degrees Normal sinus rhythm Possible Left atrial enlarge ment T wave abnormality, consider inferolateral ischemia Prolonged QT Abnormal ECG 2D ECHO W/ DOPPLER Routine 02/21/2019 10:02 Pre-transplant britany luation Results for (CW/PW/COLOR) AM MAKING MACHINE OPERATOR for ESRD (end stage renal t his procedure disease) are in the Essential hypert ension results Bilateral carotid artery sec tion. occlusion Diastolic dysfunction, left ventricle CAROTID DOPPLER Routine 02/21/2019 9:30 Pre-transplant evalua tion Results for BILATERAL AM MAKING MACHINE OPERATOR for ESRD (end stage renal th is procedure disease) are in the Essential hypert ension results Bilateral carotid artery sec tion. occlusion Diastolic dysfunction, left ventricle after 11/07/2018 Results SARS-CoV2/RT-PCR ([facility] & Ref Labs) (10/04/2019 9:58 AM CDT)Only the most recent of2 resultswithin the time period is included. SARS-COV2/RT-PCR Negative Not Detected, Negative, [facility] See external report for MEDICAL CENTER linked test SARS-COV-2 PERFORMING LAB [facility] SUZI [facility] Specimen Other Narrative Performed At Negative result for this test determines that [facility] [place] SARS-CoV-2 RNA was not present in the [...] the Act. Fact Sheet for Healthcare Providers: https://www.[employer].com/sites/default/files/pro duct/documents/Fact_Sheet_HC_Providers_Lyra_SA RS-CoV-2.pdf Fact Sheet for Healthcare Patients: https://www.[employer].com/sites/default/files/pro duct/documents/Fact_Sheet_Patients_Lyra_SARS-C oV-2.pdf Performing Laboratory: [facility] [address] [place] [address] Performing Organization Address City/State/Zipcode Phone Number [facility] MEDICAL [address] [place] [address] CENTER PERIPHERAL VASCULAR REPORT - SCAN (02/22/2019 9:22 PM MAKING MACHINE OPERATOR) Narrative Performed At This result has an attachment that is no t available. ECHOCARDIOGRAM REPORT - SCAN (02/21/2019 9:21 PM MAKING MACHINE OPERATOR) Narrative Performed At This result has an attachment that is no t available. NM myocardial perfusion SPECT,pharm(Lexiscan) (02/21/2019 2:47 PM MAKING MACHINE OPERATOR) Specimen Narrative Performed At FINAL REPORT [employer] PROCEDURE: MYOCARDIAL PERFUSION SPECT IM AGING (Rest/Stress) CPT CODE: 91462 INDICATION: Renal transplant evaluation, hypertension, shortness of [...] MD Report Verified Date/Time:02/21/2019 15:54:30 Reading Location: [address] Nuc Med Reading Room Procedure Note Interface, External Ris In - 02/21/2019 3:56 PM MAKING MACHINE OPERATOR FINAL REPORT PROCEDURE: MYOCARDIAL PERFUSION SPECT IM AGING (Rest/Stress) CPT CODE: 18108 INDICATION: Renal transplant evaluation, hypertension, shortness of [...] Verified Date/Time: 02/21/2019 1 5:54:30 Reading Location: [address] Nuc Med Reading Room Performing Organization Address City/State/Zipcode Phone Number GE RIS Treadmill tolerance(Non-Nuclear Treadmill) (02/21/2019 1:28 PM MAKING MACHINE OPERATOR) Specimen Narrative Performed At Protocol Name REGADENOSON [...] 2:42:47 PM Confirmed by MD GONZALEZ JORGE ([id number]) on 03/18/2019 12: 21:22 PM Procedure Note Interface, External Ris In - 03/18/2019 12:21 PM MAKING MACHINE OPERATOR Protocol Name REGADENOSON Time In Exercise Phase [...] 2:42:47 PM Confirmed by MD GONZALEZ JORGE ([id number]) on 03/18/2019 12:21:22 PM Performing Organization Address City/State/Zipcode Phone Number GE MUSE ECG 12 lead (02/21/2019 1:04 PM MAKING MACHINE OPERATOR)Only the most recent of2 resultswithin the time period is included. Specimen Narrative Performed At Ventricular Rate 60 BPM GE MUSE Atrial Rate 60 BPM P-R Interval 158 ms QRS Duration 92 ms Q-T Interval 474 ms QTC Calculation(Bazett) 474 ms P [place] 54 degrees R [place] 24 degrees T [place] -74 degrees Normal sinus rhythm Left atrial enlargement T wave abnormality, consider inferolater al ischemia Prolonged QT Abnormal ECG Confirmed by MD Lyons Roberto ([id number]) on 02/03 2:27:14 PM Procedure Note Interface, External Ris In - 02/21/2019 2:27 PM MAKING MACHINE OPERATOR Ventricular Rate 60 BPM Atrial Rate 60 BPM P-R Interval 158 ms QRS Duration 92 ms Q-T Interval 474 ms QTC Calculation(Bazett) 474 ms P [place] 54 degrees R [place] 24 degrees T [place] -74 degrees Normal sinus rhythm Left atrial enlargement T wave abnormality, consider inferolater al ischemia Prolonged QT Abnormal ECG Confirmed by MD Lyons Roberto ([id number]) on 02/21/2019 2:27:14 PM Performing Organization Address City/State/Zipcode Phone Number Retrace 2D Echo W/Doppler(CW/PW/Color) (02/21/2019 10:02 AM MAKING MACHINE OPERATOR) Ejection Fraction [facility] TLAB Tus reQRdosON [facility] Specimen Narrative Performed At Transthoracic Echocardiography Report (T TE) [facility]ART[facility] Tangler [facility] Demographics Patient Name Maury URBANO of Study 02/21/2019 SHO [id number] Gender Male Visit Number [id number] Marissa [id number] Room Number Number Date of Birth1955 Referring Physician Emilio Black MD Age63 year(s) Linoleum Layer Helper Dariel Patel CS Savanna issa MD Physician [...] External Ris In - 02/21/2019 12:49 PM MAKING MACHINE OPERATOR Transthoracic Echocardiography Report (TTE) Demographics Patient Name FIDEL URBANO Date of Study 02/21/2019 SHO Genjúnior r Male Visit Number [id number] Race Other Room Number Number Date of 1955 Refer ring Physician Emilio Black MD Age 63 year(s) Sonog paramjit [employer]ila Storage Administrator Falguni Patel, [facility] Bry Pendleton MD Physi joshua Procedure Type [...] l/min/m^2 Performing Organization Address City/State/Zipcode Phone Number [facility]ART[facility] BetKlubESSON [facility] Carotid doppler bilateral (02/21/2019 9:30 AM MAKING MACHINE OPERATOR) Ejection Fraction [facility] TLAB MKCKESSON [facility] Specimen Impressions Performed At Right Impression [facility] MKCKESSON [facility] 1. There is <50% diameter reduction [...] At PV LAB - Carotid Duplex Study [facility] MKCKESSON [facility] Demographics Patient Name Maury URBANO of Study02/21/2019 ULYSSES STEWART [id number] Visit Number [id number] Gender Male Accession Number [id number] Date of Birth1955 Jason Black MD Room [...] External Ris In - 02/22/2019 11:08 AM MAKING MACHINE OPERATOR PV LAB - Carotid Duplex Study Demographics Patient Name FIDEL URBANO ate of Study 02/21/2019 SHO A ge 63 Visit Number [id number] G moira Male Accession Number [id number] D ate of 1955 Referring Emilio Black MD R oom Number Physician Linoleum Layer Helper Katelyn Morejon I nterpreting Savanah [place], RN, [...] V 1.52.ICAEDV/CCAEDV 3.12. Performing Organization Address City[facility] Phone Number [facility] E[facility]ART[facility] MKCKESSON [facility] after 11/07/2018 Insurance Payer Benefit Plan / Group Subscriber ID Type Phone A ddress [employer] OPTUM NON-UNITED MCR xxxxxxxxx [facility] NETWK - MEDICARE MGD REPL CARE TEXANPLUS TEXANPLUS HMO ALL xxxxxxxxx Maps Contracted WELL[employer]ARE MEDICARE MGD WELLCARE MAPS xxxxxxxxx CARE (Home) [place] [address] Advance Directives For more information, please contact:[address] [phone] Code Status Date Activated Date Inactivated Comments Full Code 03/30/2016 2:10 AM 04/11/2016 8:24 PM This code status was determined by: Patient Full Code 03/31/2015 10:13 AM 04/01/2015 12:55 AM This code status was determined by: Patient
--- OUTSIDE RECORDS SUMMARY | 2019-11-08 19:33 | XMS REPORT | Continuity of Care Document ---
:1955 Author Organization [facility] t Address [address] [place] [address] [address] [place] [address] Care Team Providers Name Role Phone Moiz Montoya MD Primary Care Physician Radiology Attending Clinician Unavailable Pob, Lab Main Attending Clinician Unavailable Minnie LEIVA Attending Clinician Unavailable Elvis Attending Clinician Unavailable Christianne BLOCKMAN Attending Clinician Unavailable Moiz Montoya MD Attending Clinician Emilio CABALLERO Attending Clinician SALENA RUSSELL Attending Clinician Unavailable SWETHA PISANO Attending Clinician Unavailable LEANA KHALIL Attending Clinician Unavailable INGRIS DANIELSON Attending Clinician Unavailable ESMER KERN Attending Clinician Unavailable THEODORE WEIR Admitting Clinician Unavailable Payers Payer Name Policy Policy Effective Expiration Source Type Number Date Date [facility] NETWK - xxxxxxxxx [facility] MEDICARE MGD CAREOPTUM [facility] Medical REPLxxxxxxxxxTransplants Center TEXANPLUSTEXANPLUS O xxxxxxxxx [facility] ALLxxxxxxxxxMaps Contracted [facility] WELLCARE MEDICARE MGD xxxxxxxxx [facility] MAPSxxxxxxxxx [facility] Problems Condition Condition Condition Status Onset Resolution [...] Overweight 00 e Iron Iron Problem Active [facility] deficiency Deficiency 5-18 Fa alexia anemia [...] e Type 2 Type 2 Problem Active [facility] diabetes Diabetes 5-18 Family mellitus Mellitus 00:00: Practi c with with 00 e multiple Multiple complicati Complicati ons ons Chronic Chronic Problem Active [facility] hepatitis Hepatitis -07 Fami ly C C [...] Active [facility] hypert[facility]i 00:00: Me dical on on 00 Center Cranial Cranial Disease Active [facility] St neuropathi neuropathi 04-02 Lucia kes - es, es, 00:00: Medical multiple multiple 00 Center Diplopia Diplopia Disease [facility] Center Hypertensi Hypertensi Disease Active [facility] - 00[facility] Medical 00 Center Type 2 Type 2 Disease Active [facility] diabetes diabetes 03-29 [facility] - mellitus mellitus 00:00: Medica l with renal with renal 00 Ce nter complicati complicati on on Chronic Chronic Disease Active [facility] hepatitis hepatitis 5-19 Assessmen Tiffanie ukes - [...] at this time. Immunity Immunity Disease Active [facility] t status [facility] 5[facility] - testing testing 00:00: t [...] today. ESRD (end ESRD (end Disease Active [facility] stage stage 5-19 [facility] renal 00:00: t [...] Date Quantity Comments Source Sex Assigned At [facility] Alcohol Comment 2015-07-23 2015-07-23 Quit drinking [facility] - 00:00:00 00:00:00 2005; social Medical [facility] er drinker Tobacco Comment 2015-03-31 2015-03-31 Quit 2006 [facility] - 00:00:00 00:00:00 [facility] Smoking Status Start Date Stop Date Source Light Tobacco Smoker [facility] Practice Former smoker 2018-06-05 00:00:00 2018-06-05 00:00:00 [facility] Medications Ordered Filled Start Stop Current Ordering Indication Dosage Frequency Signature Comments Components Source Medication Medication Date Date Medication? Clinician (SIG) Name Name aspirin 81 Yes 81mg QD Take [address] MG EC 4-02 by mouth [facility] - tablet 10:20: daily. Medical [place] amLODIPine Yes 10mg Take [address] (NORVASC) 4-02 by mouth. [facility] - 10 MG 10:19: Medical tablet 56 [place] lactulose Yes TAKE 20 [facility] (CHRONULAC) 3-26 GRAM [facility] - 10 gram/15 00:00: (30ML) BY Wi dical mL solution 00 MOUTH ONCE Ce nter A DAY NEEDED zolpidem Yes TAKE [address] (AMBIEN) 10 2-21 TABLET [facility] - mg tablet 00:00: ORALLY AT Med ical 00 BEDTIME Center NEEDED clopidogrel 2017-03 Yes 75mg QD Take [address] (PLAVIX) 75 1-06 by mouth Luke s - mg tablet 15:17: daily. Medica l [address] [place] gabapentin 2017-03 Yes 100mg Q.5D Take [address] (NEURONTIN) 1-06 mg by [facility] - 300 MG 15:14: mouth 2 Medical capsule 37 (two) Center times daily . atorvastati Yes 20mg Take [address] n (LIPITOR) 4-26 by mouth. Susie es - 20 MG 00:00: Medical tablet 00 Center hydrALAZINE 2016- Yes 50mg [id number] Take [address] (APRESOLINE 2-06 [id number] tablets [facility] - ) 25 MG 00:00: [...] route. carvedilol carvedilol No 1 BID carvedilol [facility] 6.25 mg 6.25 mg 6.25 mg Family tablet Take tablet Take tablet Practic 1 tablet 1 tablet Take 1 e twice a day twice a day tablet by oral by oral twice a route. route. day by oral route. clonidine clonidine No 1 BID clonidine [facility] HCl 0.2 mg HCl 0.2 mg HCl 0.2 mg Family tablet Take tablet Take tablet Practic 1 tablet 1 tablet Take 1 e twice a day twice a day tablet by oral by oral twice a route. route. day by oral route. gabapentin gabapentin No 1capsul TID gabapentin [facility] 100 mg 100 mg e(s) 100 mg Family capsule capsule capsule Practi c Take 1 Take 1 Take 1 e capsule 3 capsule 3 capsule 3 times a day times a day times a by oral by oral day by route. route. oral route. lactulose lactulose No 15mL Q1D lactulose [facility] 10 gram/15 10 gram/15 10 gram/15 Family mL (15 mL) mL (15 mL) mL (15 mL) Practic oral oral oral e solution solution solution Take 15 mL Take 15 mL Take 15 mL every day every day every day by oral by oral by oral route as route as route as directed. directed. directed. [place] 10 [place] 10 No 1 Q4H [place] 10 Milo tiffanie mg-325 mg mg-325 mg mg-325 mg Family tablet Take tablet Take tablet Practic 1 tablet 1 tablet Take 1 e every 4 every 4 tablet hours by hours by every 4 oral route oral route hours by as needed. as needed. oral route as needed. pravastatin pravastatin No 1 Q1D pravastati [facility] 40 mg 40 mg n 40 mg Family tablet Take tablet Take tablet Practic 1 tablet 1 tablet Take 1 e every day every day tablet by oral by oral every day route. route. by oral route. Renvela 800 Renvela 800 No 1 TID Renvela [facility] mg tablet mg tablet 800 mg Fam traci Take 1 Take 1 tablet Practic tablet 3 tablet 3 Take 1 e times a day times a day tablet 3 by oral by oral times a route. route. day by oral route. Sensipar 30 Sensipar 30 No 1 Q1D Sensipar [facility] mg tablet mg tablet 30 mg Fami ly Take 1 Take 1 tablet Practic tablet tablet Take 1 e every day every day tablet by oral by oral every day route. route. by oral route. sildenafil sildenafil No 1 Q1D sildenafil [facility] 100 mg 100 mg 100 mg Family tablet Take tablet Take tablet Practic 1 tablet 1 tablet Take 1 e every day every day tablet by oral by oral every day route. route. by oral route. tizanidine tizanidine No 1 Q6H tizanidine [facility] 4 mg tablet 4 mg tablet 4 mg F amily Take 1 Take 1 tablet Practic tablet tablet Take 1 e every 6 every 6 tablet hours by hours by every 6 oral route oral route hours by as as oral route directed. directed. as directed. zolpidem 10 zolpidem 10 No 1 Q1D zolpidem [facility] mg tablet mg tablet 10 mg Fami ly Take 1 Take 1 tablet Practic tablet tablet Take 1 e every day every day tablet by oral by oral every day route at route at by oral bedtime. bedtime. route at bedtime. Immunizations Ordered Immunization Filled Immunization Date Status Commen ts Source Name Name pneumococcal pneumococcal 2019-01-04 Completed [facility] alexia conjugate PCV 13 conjugate PCV 13 00:00:00 Pr actice influenza, influenza, 2019-01-04 [facility] injectable, injectable, 00:00:00 Practice quadrivalent quadrivalent PPD Test 2016-04-[address] [facility] 00:00:00 [facility] Vital Signs Vital Name Observation Time Observation Value Comments Source Height 2019-09-03 00:00:00 66 [in_i] [facility] Height 2019-07-23 00:00:00 66 [in_i] [facility] BMI (Body Mass Index) 2019-07-23 00:00:00 25.8 kg/m2 [facility] Body Weight 2019-07-23 00:00:00 160 [lb_av] [facility] Systolic blood 2019-02-21 13:35:00 140 mm[Hg] [facility] Diastolic blood 2019-02-21 13:35:00 42 mm[Hg] [facility] S t [facility] Heart rate 2019-02-21 13:35:00 74 /min [facility] Respiratory rate 2019-02-21 13:35:00 20 /min [facility] Body height 2019-02-21 11:19:00 167.6 cm [facility] Body weight Measured 2019-02-21 11:19:00 74.844 kg [facility] Center BMI 2019-02-21 11:19:00 26.63 kg/m2 [facility] Procedures Procedure Date / Time Performing Clinician Source Performed SARS-COV2/RT-PCR ([facility] & 2019-10-04 09:58:[address] [facility] SARS-COV2/RT-PCR ([facility] & 2019-09-30 20:00:[address] [facility] PERIPHERAL VASCULAR REPORT 2019-02-22 21:22:39 Provider, Default [facility] - - SCAN Scanning [facility] ECHOCARDIOGRAM REPORT - 2019-02-21 21:21:31 Provider, Default [facility] - SCAN Scanning [facility] NM MYOCARDIAL PERFUSION 2019-02-21 14:47:00 Wayne Jhaveri [facility] - SPECT, PHARM(LEXISCAN) Medical C enter TREADMILL 2019-02-21 13:28:08 Unknown, 7 Doctor [facility] St L es TOLERANCE(NON-NUCLEAR Medical Ce nter T[place]MI[place]) ECG 12-LEAD 2019-02-21 13:04:33 Unknown, 7 Doctor [facility] St L es [facility] ECG 12-LEAD 2019-02-21 13:03:22 Unknown, 7 [facility] St L ukes [facility] 2D ECHO W/ DOPPLER 2019-02-21 10:02:56 Wayne Jhaveri [facility] St Lucia kes (CW/PW/COLOR) [facility] CAROTID DOPPLER BILATERAL 2019-02-21 09:30:00 Wayne Jhaveri [facility] Plan of Care Planned Activity Planned Date Details Comments Source Future Scheduled 2019-11-05 INFLUENZA VACCINE (#1) [facility] - Test 00:00:00 [code = INFLUENZA Medical Ce nter VACCINE (#1)] Future Scheduled 2019-03-[address] [facility] - Test 00:00:00 (procedure) [code = Medical Center 18260130] Future Scheduled 2016-09-[address] Lucia kes - Test 00:00:00 measurement [facility] (procedure) [code = 32167552] Future Scheduled 2016-06-[address] Susie es - Test 00:00:00 malignant neoplasm of [facility] colon (procedure) [code = 956464338] Future Scheduled 2015-03-[address] [facility] - Test 00:00:00 WELLNESS (YEAR 2 or Medical Center FIRST YEAR if no IPPE) [code = MEDICARE ANNUAL WELLNESS (YEAR 2 or FIRST YEAR if no IPPE)] Future Scheduled 1967-08-29 DIABETIC EYE EXAM [facility] - Test 00:00:00 [code = DIABETIC EYE Medical Center EXAM] Future Scheduled 1967-08-[address] Susie es - Test 00:00:00 examination Medical Center (regime/therapy) [code = 923380384] Future Scheduled 1967-08-29 Urine screening for [facility] - Test 00:00:00 protein (procedure) Medical Center [code = 795134623] Future Scheduled 1963-08-[address] [facility] - Test 00:00:00 2-64 YEARS AT RISK (1 Medica l Center of 3 - PCV13) [code = PNEUMOCOCCAL VACCINE 2-64 YEARS AT RISK (1 of 3 - PCV13)] Encounters Start End Encounter Admission Attending Care Care Encounter Source Date/Time Date/Time Type Type Clinicians Facility Department ID 2019-10-10 2019-10-10 Hospital Radiology [facility] [id number] 12:34:44 23:59:00 Encounter [place] [id number] [place] [id number] [place] [id number] 2019-10-10 2019-10-10 Graduate 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 2019-07-23 2019-07-23 Veronica [facility] [place] - [id number] V ill[place] 00:00:00 00:00:00 [facility] Clayton elkins DEFLECTOR OPERATOR: Medical - Practi c [address] [email or web address] [facility], [address], [place] [address] , Ph. Results Test Description Test Time Test Comments Results Result Comments Source SARS-CoV2/RT-PCR ([facility] & Ref Labs) 2019-10-04 22:28:00 Test Item Value Reference Range Interpretation Comme nts SARS-COV2/RT-PCR (test code = Negative Not Detected, 10021-9) Negative, See external report for linked test SARS-COV-2 PERFORMING LAB [facility] SUZI (test code = 66028-3) STEVEN (test code = STEVEN) Negative result [...] of the Act. Fact Sheet for Healthcare Providers:https://www.XGIMI. com/sites/default/files/produ ct/documents/Fact_Sheet_HC_Pr jrcsmfk_Ofbi_NOPE-BvV-5.pdf Fact Sheet for Healthcare Patients:https://www.quidel.c om/sites/default/files/produc t/documents/Fact_Sheet_Hayden adamsonmd_Vfaa_WJLD-HjD-7.pdf Performing Laboratory:[facility] [place] [address] [facility] ([facility] REF LABS)2019-10-04 22:28:00 Test Item Value Reference Range Interpretation Comments SARS-COV2/RT-PCR (test Negative Not Detected, Negative, code = 6238572) See external report for linked test SARS-COV-2 PERFORMING LAB [facility] SUZI (test code = 5344291) Negative result for this test determines that [...] 564(g) of the Act.Fact Sheet for Healthcare Providers:https://www.gifted2you/sites/default/files/product/documents/Fact_Shejasmin yatesc_XV_Bvonocqmj_Ideg_FMXN-FwI-7.pdfFact Sheet for Healthcare Patients:https://www.gifted2you/sites/default/files/product/ documents/Zxat_Nlsbu_Djzrdusg_Eqwl_LGIV-DlX-4.pdfPerforming Laboratory:[facility], [place] [address]LSIT-VRH3/RT-PCR ([facility] & REF LABS)2019-10-01 04:23:00 Test Item Value Reference Range Interpretation Comments SARS-COV2/RT-PCR (test code Negative Not Detected, Negative, = 3775244) See external report for linked test SARS-COV-2 PERFORMING LAB [facility] (test code = 7685302) Negative results do not preclude SARS-CoV-2 infection [...] of the Act.Fact Sheet for Healthcare Pro viders:https://www.Quividi.ClearAccess/Documents/Xpert%20Xpress%20SARS%20CoV-2/Fact%20Sh eets/302-3802%82OXYZ-ESA-3%20HEALTHCARE%20PROVIDERS%20FACT%20SHEET.pdfFact Sheet for Healthcare Patients:https://www.JAB Broadband.com/Documents/Xpert%20Xpress%20SARS%20CoV-2/Fact%20Sheets/3023801%20SARS-COV -2%20PATIENT%20FACT%20SHEET.pdfPerforming Laboratory:[facility] Christie[place], [place] [address]Zxyewdjsq tolerance(Non-Nuclear Treadmill)2019-03-18 12:21:27Interface, External Ris In - [...] MD GONZALEZ JORGE ([id number]) on 03/18/2019 12:21:22 [facility] doppler [id number] 11:08:18Ejection FractionSLEH ECHO HEARTLAB MKCKESSON CPACSRight Impression1. 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 - Additional Measurements:ICAPSV/CCAPSV 1.52.ICAEDV/CCAEDV 3.12.[facility] MYOCARD IMAGING, MULTI, PHARM, [id number] 15:54:00Referring: Dr. Schultz [facility] PROCEDURE: MYOCARDIAL PERFUSION SPECT IMAGING (Rest/Stress)CPT CODE: 18521 INDICATION: Renal transplant evaluation, hypertension, shortness of [...] Verified Date/Time: 02/21/2019 15:54:30 Reading Location: [address] Reading Room NM myocardial perfusion SPECT,pharm(Lexiscan) 2019-02-21 15:54:00Interface, External Ris In - 02/21/2019 3:56 PM CSTFINAL REPORT PROCEDURE: MYOCARDIAL PERFUSION SPECT IMAGING (Rest/Stress)CPT CODE: 06437 INDICATION: Renal transplant evaluation, hypertension, shortness of [...] MDReport Verified Date/Time: 02/21/2019 15:54:30 Reading Location: [address] Reading Room [facility] CenterECG 12 [id number] 14:27:15Interface, External Ris In - 02/21/2019 2:27 PM CSTVentricular Rate 60 BPMAtrial Rate 60 BPMP-R Interval 158 msQRS Duration 92 msQ-T Interval 474 msQTC Calculation(Bazett) 474 msP [place] 54 degreesR [place] 24 degreesT [place] -74 degreesNormal sinus rhythmLeft atrial enlargementT wave abnormality, consider i nferolateral ischemiaProlonged QTAbnormal ECGConfirmed by MD Lyons Roberto ([id number]) on 02/21/2019 2:27:14 [facility]2D Echo W/Doppler(CW/PW/Color)2019-02-21 12:49:06Ejection FractionSLEH ECHO HEARTLAB MKCKESSON CPACSInterface, External Ris In - 02/21/2019 12:49 PM CSTTransthoracic Echocardiography Report (TTE) Demographics Patient Name FIDEL LYNCH Date of Study 02/21/2019 SHO Gender Male Visit Number [id number] Race Other Room Number Number Date of 1955 Referring Physician Emilio Black MD Age 63 year(s) Octave Board Assembler Dariel Avila Waist Presser Falguni Patel [facility] Interpreting Bry Pendleton MD Physician Procedure Type [...] CO: 5.99 l/min LVOT CI: 3.26 l/min/m^2[facility]2018-[facility] 17:11:00 Test Item Value Reference Range Interpretation Comments PROSTATE SPECIFIC ANTIGEN (BEAKER) 0.8 ng/mL 0.0-4.0 (test code = 844) HEPATITIS B SURFACE [id number] 17:11:00 Test Item Value Reference Range Interpretation Comments HEPATITIS B SURFACE ANTIBODY 612.9 mIU/mL <8.0 H (BEAKER) (test code = 647) PROTHROMBIN TIME/[id number] 14:59:00 Test Item Value Reference Range Interpretation Comments PROTIME (BEAKER) (test code = 15.6 seconds 11.7-14.7 H 759) INR (BEAKER) (test code = 370) 1.2 <=5.9 RECOMMENDED COUMADIN/WARFARIN INR THERAPY RANGESSTANDARD DOSE: 2.0 - 3.0 Includes: PROPHYLAXIS forvenous thrombosis, systemic embolization; TREATMENT for venous thrombosis and/or pulmonary embolus.HIGH RISK: Target INR is 2.5-3.5 for patients with mechanical heart valves.BASIC METABOLIC [id number] 14:58:00 Test Item Value Reference Range Interpretation [...] APPLICABLE FOR DIALYSIS PATIEN TS. HEPATIC FUNCTION [id number] 14:53:00 Test Item Value Reference Range Interpretation [...] 6-55 347) CBC W/PLT COUNT & AUTO [id number] 14:19:00 Test Item Value Reference Range Interpretation [...] = 2801) FLOW PRA CLASS I AND [id number] 12:02:00 Test Item Value Reference Range Interpretation Comments DATE OF SERUM (BEAKER) 9110312 (test code = 2289) SERUM # (BEAKER) (test 943150 code = 2290) FLOW PRA CLASS I AND II See Scanned Report (test code = 2421) HEPATITIS B SURFACE [id number] 13:18:00 Test Item Value Reference Range Interpretation Comments HEPATITIS B SURFACE ANTIBODY < mIU/mL <8.0 (BEAKER) (test code = 647) [id number] 13:08:00 Test Item Value Reference Range Interpretation Comments PROSTATE SPECIFIC ANTIGEN (BEAKER) 0.9 ng/mL 0.0-4.0 (test code = 844) FLOW PRA CLASS I AND [id number] 16:00:00 Test Item Value Reference Range Interpretation Comments DATE OF SERUM (BEAKER) 6040312 (test code = 2289) SERUM # (BEAKER) (test 10290705 code = 2290) FLOW PRA CLASS I AND II See Scanned Report (test code = 2421) BASIC METABOLIC [id number] 15:51:00 Test Item Value Reference Range Interpretation [...] APPLICABLE FOR DIALYSIS PATIEN TS. HEPATIC FUNCTION [id number] 15:48:00 Test Item Value Reference Range Interpretation [...] 6-55 347) CBC W/PLT COUNT & AUTO [id number] 15:11:00 Test Item Value Reference Range Interpretation [...] (test code = 417) 0.00AFB CULTURE + [id number] 19:58:00 Test Item Value Reference Range Interpretation Comments CULTURE (BEAKER) (test No acid-fast bacilli code = 1095) isolated in 42 days AFB SMEAR (BEAKER) No acid fast bacilli (test code = 994) seen AFB CULTURE + [id number] 19:58:00 Test Item Value Reference Range Interpretation Comments CULTURE (BEAKER) (test No acid-fast bacilli code = 1095) isolated in 42 days [facility] No acid fast bacilli (test code = 994) seen AFB CULTURE + [id number] 18:21:00 Test Item Value Reference Range Interpretation Comments CULTURE (BEAKER) (test No acid-fast bacilli code = 1095) isolated in 42 days AFB SMEAR ([facility]) No acid fast bacilli (test code = 994) seen POCT-GLUCOSE [id number] 10:30:00 Test Item Value Reference Range Interpretation Comments POC-GLUCOSE METER 468 mg/dL 70-110 HH TESTED AT [facility] 67 ([facility]) (test code = JANICE NUÑEZ [place] 1538) [address] CREATINE KINASE (CK), TOTAL AND [id number] 08:31:00 Test Item Value Reference Range Interpretation Comments CREATINE KINASE TOTAL ([facility]) 42 U/L 29-200 (test code = 380) CREATINE KINASE-MB ([facility]) (test 2.3 ng/mL 0.0-6.6 code = 750) CREATINE KINASE-MB INDEX ([facility]) 5.5 % (test code = 395) Effective 01/21/2014: CK-MB Reference Range ChangeNew: 0.0-6.6 Previous: 0.0-4.9CK-MB Reference Range:<6.7 Normal6.7-10.0 Borderline>10.0 AbnormalTROPONIN [id number] 08:31:00 Test Item Value Reference Range Interpretation [...] acute neurological disease, and persistent tachyarrhythmia.BASIC METABOLIC [id number] 08:27:00 Test Item Value Reference Range Interpretation [...] S NOT APPLICABLE FOR DIALYSIS PATIEN TS. [id number] 08:24:00 Test Item Value Reference Range Interpretation Comments MAGNESIUM (BEAKER) (test code = 2.4 mg/dL 1.6-2.6 627) CBC W/PLT COUNT & AUTO [id number] 08:17:00 Test Item Value Reference Range Interpretation [...]
--- NOTE | 2019-11-08 20:40 | RAD REPORT ---
EXAM DESCRIPTION: Kiana Single View11/08/2019 8:10 pm CLINICAL HISTORY: Cough COMPARISON: October 2019 FINDINGS: Upper lobe vessels are prominent indicative of pulmonary venous hypertension The lungs appear clear of acute infiltrate. The heart is borderline enlarged
[2019-11-08 21:01] LABS: Absolute Lymphocytes (CBC) 0.8 K/uL (0.7-4.9); Basophils % 0.9 % (0-1.3); Hematocrit 24.9 % (39.6-49.0); Lymphocytes % 12.6 % (15.3-44.8); MPV 9.3 fL (7.6-11.3); RBC Red Blood Cell Count 2.62 M/uL (4.33-5.43)
[2019-11-08 21:02] LABS: Protime INR 1.05
[2019-11-08] MEDS ORDERED: MORPHINE 2 MG/ML SYR ONE (21:29)
--- NOTE | 2019-11-08 23:08 | ER ---
Nurse's Notes [facility] Name: Alexis Urbano Age: 64 yrs Sex: Male : 1955 Arrival Date: 11/08/2019 Time: 19:31 Bed 14 Private MD: Diagnosis: Low back pain-from fall;Pain in left leg;Fall on same level from slipping, tripping and stumbling Presentation: 11/07 19:31 Chief complaint: Patient states: "I fell out of my wheel chair on my tailbone and it vc hurts really bad." EMS states: "Patient fell out of his wheelchair and hit his tailbone, he also fell yesterday and hit his head.". Care prior to arrival: None. Care prior to arrival: Glucose check: 233. Mechanism of Injury: Fall out of chair. 19:31 Acuity: JOEL 3 vc 19:31 Method Of Arrival: EMS: [facility] vc 19:34 Coronavirus screen: Client denies travel out of the [place] in the last 14 days. At this vc time, the client does not indicate any symptoms associated with coronavirus-19. Ebola Screen: No symptoms or risks identified at this time. Initial Sepsis Screen: Does the patient meet any 2 criteria? No. Patient's initial sepsis screen is negative. Does the patient have a suspected source of infection? No. Patient's initial sepsis screen is negative. Risk Assessment: Do you want to hurt yourself or someone else? Patient reports no desire to harm self or others. Onset of symptoms was November 08, 2019. Historical: - Allergies: 19:43 No Known Allergies; vc - Home Meds: 19:43 tizanidine 4 mg oral cap bid [Active]; aspirin 81 mg Oral chew 1 tab once daily vc [Active]; gabapentin 100 mg oral cap 1 caps 3 times per day [Active]; doxazosin 2 mg oral tab [Active]; pravastatin 40 mg oral tab 1 tab once daily [Active]; DIALYVITE 800 0.8 mg oral tab daily [Active]; clonidine HCl 0.2 mg Oral tab 1 tab 2 times per day [Active]; hydralazine 100 mg Oral tab 1 tab 3 times per day [Active]; carvedilol 6.25 mg oral tab 1 tab 2 times per day [Active]; hydrocodone-acetaminophen 10-325 mg Oral tab 1 tab every 4-6 hours [Active]; bumetanide 2 mg Oral tab 1 tab once daily [Active]; tobramycin 0.3 % Opht drop 1 drop every 4 hours [Active]; - PMHx: 19:43 Hypertension; Dialysis; ESRD; Hyperlipidemia; fractured left femur; vc - Immunization history:: Adult Immunizations up to date. - Social history:: Smoking status: Patient/guardian denies using tobacco, but has a distant history of tobacco abuse. Screenin:35 Abuse screen: Denies threats or abuse. Nutritional screening: No deficits noted. vc Tuberculosis screening: No symptoms or risk factors identified. Fall Risk None identified. Assessment: 20:18 General: Appears in no apparent distress. uncomfortable, Behavior is cooperative. Pain: vc Complains of pain in "tail bone" Pain does not radiate. Pain currently is 10 out of 10 on a pain scale. Quality of pain is described as sharp, Pain began suddenly, Is continuous. Neuro: Level of Consciousness is awake, alert, obeys commands, Oriented to person, place, time, situation, Appropriate for age. Cardiovascular: Capillary refill < 3 seconds Patient's skin is warm and dry. Respiratory: No deficits noted. GI: No signs and/or symptoms were reported involving the gastrointestinal system. : No signs and/or symptoms were reported regarding the genitourinary system. Derm: Bruising that is dark purple, on left leg. Musculoskeletal: Range of motion: limited in left knee. 21:00 Reassessment: Pillow placed under left leg. vc 22:00 Reassessment: Patient and/or family updated on plan of care and expected duration. Pain vc level reassessed. Patient is alert, oriented x 3, equal unlabored respirations, skin warm/dry/pink. 23:20 Reassessment: Provider at bedside. vc 11/08 00:00 Reassessment: Patient and/or family updated on plan of care and expected duration. Pain vc level reassessed. Patient is alert, oriented x 3, equal unlabored respirations, skin warm/dry/pink. Patient states symptoms have improved. 01:00 Reassessment: Patient and/or family updated on plan of care and expected duration. Pain vc level reassessed. Patient is alert, oriented x 3, equal unlabored respirations, skin warm/dry/pink. Patient states feeling better. Vital Signs: 11/07 19:34 BP 157 / 31; Pulse 77; Resp 17; Temp 99.3; Pulse Ox 100% on R/A; Weight 77.56 kg; vc Height 5 ft. 6 in. (167.64 cm); Pain 10/10; 20:30 BP 167 / 52; Pulse 65; Resp 14; Pulse Ox 100% on R/A; vc 22:00 BP 171 / 50; Pulse 64; Resp 15; Pulse Ox 99% on R/A; vc 23:00 BP 179 / 55; Pulse 64; Resp 16; Pulse Ox 99% on R/A; vc 11/08 00:32 BP 150 / 55; Pulse 68; Resp 13; Temp 98.0(O); Pulse Ox 100% on R/A; vc 11/07 19:34 Body Mass Index 27.60 (77.56 kg, 167.64 cm) vc ED Course: 11/07 19:31 Patient arrived in ED. vc 19:32 Homar Beck PA is PHCP. cp 19:33 Ronnie Dent MD is Attending Physician. cp 19:34 Triage completed. vc 19:35 Arm band placed on right wrist. vc 19:44 Krupa Boyle, RN is Primary Nurse. vc 20:21 Patient has correct armband on for positive identification. Bed in low position. Call vc light in reach. nurse ob on. Pulse ox on. NIBP on. 20:39 Inserted saline lock: 20 gauge in right forearm, using aseptic technique. lp1 22:23 Extrem Venous W Compress Fer In Process Unspecified. EDMS 22:23 Pelvis In Process Unspecified. EDMS 22:23 Lumbar Spine 3 Views In Process Unspecified. EDMS 22:27 Femur Left In Process Unspecified. EDMS 22:28 US Extremity Venous W Compression Fer In Process Unspecified. EDMS 23:06 Yeyo Carreon DO is Hospitalizing Provider. cp 11/08 01:01 No provider procedures requiring assistance completed. Patient admitted, IV remains in vc place. 01:02 Nick Ayala MD is Hospitalizing Provider. cp Administered Medications: 11/07 21:41 Drug: morphine 2 mg {Note: RASS-1.} Route: IVP; Site: right forearm; vc 11/08 01:00 Follow up: Response: No adverse reaction; Pain is decreased vc Outcome: 11/07 23:08 Decision to Hospitalize by Provider. rita 11/08 01:02 Admitted to Med/surg accompanied by nurse, via stretcher, room 217, with chart, Report vc called to ABBIE Malcolm Condition: good Instructed on the need for admit. 01:08 Patient left the ED. vc Signatures: Dispatcher [employer] EDMS Wendy Smith RN RN lp1 Homar Beck PA PA Krupa Conklin RN RN vc
--- NOTE | 2019-11-08 23:08 | EDPHYS ---
Physician Documentation [facility] Name: Alexis Urbano Age: 64 yrs Sex: Male : 1955 Arrival Date: 11/08/2019 Time: 19:31 Bed 14 Private MD: ED Physician Ronnie Dent HPI: 11/07 19:50 This 64 yrs old Male presents to ER via EMS with complaints of Fall Injury. cp 19:50 Details of fall: The patient fell from an upright position, while walking. cp 19:50 Onset: The symptoms/episode began/occurred 2 day(s) ago. Associated injuries: The cp patient sustained injury to the low back, pain. Patient reports recent discharge from [facility] after having intermedullary radha placed for left distal femur fracture sustained from fall last month. Patient reports he lives by himself and unable to care for himself. Patient reports several fall, with most recent 2 days ago in home while attempting to get to restroom. Reports no family to assist. Historical: - Allergies: 19:43 No Known Allergies; vc - Home Meds: 19:43 tizanidine 4 mg oral cap bid [Active]; aspirin 81 mg Oral chew 1 tab once daily vc [Active]; gabapentin 100 mg oral cap 1 caps 3 times per day [Active]; doxazosin 2 mg oral tab [Active]; pravastatin 40 mg oral tab 1 tab once daily [Active]; DIALYVITE 800 0.8 mg oral tab daily [Active]; clonidine HCl 0.2 mg Oral tab 1 tab 2 times per day [Active]; hydralazine 100 mg Oral tab 1 tab 3 times per day [Active]; carvedilol 6.25 mg oral tab 1 tab 2 times per day [Active]; hydrocodone-acetaminophen 10-325 mg Oral tab 1 tab every 4-6 hours [Active]; bumetanide 2 mg Oral tab 1 tab once daily [Active]; tobramycin 0.3 % Opht drop 1 drop every 4 hours [Active]; - PMHx: 19:43 Hypertension; Dialysis; ESRD; Hyperlipidemia; fractured left femur; vc - Immunization history:: Adult Immunizations up to date. - Social history:: Smoking status: Patient/guardian denies using tobacco, but has a distant history of tobacco abuse. ROS: 19:55 Constitutional: Negative for body aches, chills, fever, poor PO intake. cp 19:55 Neck: Negative for pain with movement, pain at rest, stiffness. cp 19:55 Cardiovascular: Negative for chest pain. 19:55 Respiratory: Negative for cough, shortness of breath, wheezing. 19:55 Abdomen/GI: Negative for abdominal pain, nausea, vomiting, and diarrhea. 19:55 Back: Positive for pain at rest, pain with movement. 19:55 MS/extremity: Positive for pain, swelling, tenderness, of the left leg. 19:55 Neuro: Negative for altered mental status, headache, loss of consciousness, syncope, weakness. 19:55 All other systems are negative. Exam: 20:00 Constitutional: The patient appears in no acute distress, alert, awake, cp non-diaphoretic, non-toxic, well developed, well nourished. 20:00 Head/Face: Normocephalic, atraumatic. cp 20:00 Chest/axilla: Inspection: normal, Palpation: is normal, no crepitus, no tenderness. 20:00 Cardiovascular: Rate: normal, Rhythm: regular, Edema: ankle edema, that is moderate, worse left lower extremity than right, JVD: is not appreciated. 20:00 Respiratory: the patient does not display signs of respiratory distress, Respirations: normal, no use of accessory muscles, no retractions, labored breathing, is not present, Breath sounds: decreased breath sounds, are not appreciated, stridor, is not appreciated, wheezing: is not appreciated. 20:00 Abdomen/GI: Inspection: abdomen appears normal, Palpation: abdomen is soft and non-tender, in all quadrants. 20:00 Back: pain, that is moderate, of the lumbar area and sacrum, ROM is painful. 20:00 Skin: cellulitis, is not appreciated, no rash present. 20:00 Neuro: Orientation: to person, place \T\ time. Mentation: is normal, Motor: moves all fours, strength is normal. 20:00 Musculoskeletal/extremity: Extremities: noted in the left leg: pain, swelling, cp tenderness, sutures intact, no signs of cellulitis. 20:25 ECG was reviewed by the Attending Physician. cp Vital Signs: 19:34 BP 157 / 31; Pulse 77; Resp 17; Temp 99.3; Pulse Ox 100% on R/A; Weight 77.56 kg; vc Height 5 ft. 6 in. (167.64 cm); Pain 10/10; 20:30 BP 167 / 52; Pulse 65; Resp 14; Pulse Ox 100% on R/A; vc 22:00 BP 171 / 50; Pulse 64; Resp 15; Pulse Ox 99% on R/A; vc 23:00 BP 179 / 55; Pulse 64; Resp 16; Pulse Ox 99% on R/A; vc 11/08 00:32 BP 150 / 55; Pulse 68; Resp 13; Temp 98.0(O); Pulse Ox 100% on R/A; vc 11/07 19:34 Body Mass Index 27.60 (77.56 kg, 167.64 cm) vc MDM: 11/07 19:40 Patient medically screened. cp 21:16 ED course: US tech reports patient negative for DVT. cp 23:00 Data reviewed: vital signs, nurses notes, lab test result(s), radiologic studies, plain cp films, I have discussed the patient's presentation/case with the attending Emergency Department Physician; and as a result, I will admit patient. 23:00 Test interpretation: by ED physician or midlevel provider: xrays of lumbar spine cp negative for acute fracture, xrays of pelvis negative for fracture and xrays of left femur show left femur intermedullary hardware intact. Physician consultation: Sixto MATHIS was called at 23:00, was contacted at 23:00, regarding patient's condition, need for medical social consultant, and will see patient in ED, shortly. 11/07 22:21 Order name: Basic Metabolic Panel EDMS 11/07 22:21 Order name: CBC with Automated Diff EDMS 11/07 22:21 Order name: Protime (+INR) EDMS 11/07 19:40 Order name: US Extremity Venous W Compression Fer cp 11/07 19:42 Order name: XRAY Chest (1 view) cp 11/07 20:37 Order name: XRAY Pelvis cp 11/07 20:37 Order name: XRAY Lumbar Spine (3 Views) cp 11/07 20:42 Order name: XRAY Femur LEFT cp 11/07 22:15 Order name: RAD; Complete Time: 22:55 EDMS 11/07 22:20 Order name: Extrem Venous W Compress Fer EDMS 11/07 22:20 Order name: Pelvis EDMS 11/07 19:42 Order name: EKG; Complete Time: 22:16 cp 11/07 19:42 Order name: Cardiac monitoring; Complete Time: 20:17 cp 11/07 19:42 Order name: EKG - Nurse/Tech; Complete Time: 20:17 cp 11/07 19:42 Order name: IV Saline Lock; Complete Time: 20:39 cp 11/07 19:42 Order name: Labs collected and sent; Complete Time: 20:39 cp 11/07 19:42 Order name: O2 Per Protocol; Complete Time: 20:17 cp 11/07 19:42 Order name: O2 Sat Monitoring; Complete Time: 20:17 cp 11/07 22:20 Order name: Lumbar Spine 3 Views EDDC 11/07 22:26 Order name: Femur Left EDDC 11/07 23:56 Order name: CONS Physician Consult EDMS EC:25 Rate is 65 beats/min. Rhythm is regular. NH interval is normal. QRS interval is normal. cp QT interval is normal. Interpreted by me. Reviewed by me. Administered Medications: 21:41 Drug: morphine 2 mg {Note: RASS-1.} Route: IVP; Site: right forearm; vc 11/08 01:00 Follow up: Response: No adverse reaction; Pain is decreased vc Disposition: 11/07 23:20 Chart complete. 11/08 06:07 Co-signature as Attending Physician, Ronnie Dent MD I agree with the assessment and tw4 plan of care. Disposition: 11/08/19 23:08 Hospitalization ordered by Nick Ayala for Observation. Preliminary diagnosis are Low back pain - from fall, Pain in left leg, Fall on same level from slipping, tripping and stumbling. - Bed requested for Telemetry/MedSurg (observation). - Status is Observation. vc - Condition is Stable. - Problem is new. - Symptoms have improved. Signatures: Dispatcher [employer] EDDC Sixto Kramer FNP-C DREDGE PUMP OPERATOR-Cla1 Homar Beck PA PA cp Garcia, Cindy, Ronnie Marr RN, MD MD tw4 Krupa Boyle RN RN vc Corrections: (The following items were deleted from the chart) 11/07 22:37 22:16 BASIC METABOLIC PANEL+C.LAB.BRZ ordered. EDDC EDMS 22:37 22:16 CBC+H.LAB.BRZ ordered. EDDC EDMS 22:37 22:16 PROTIME (+INR)+COAG.LAB.BRZ ordered. EDDC EDMS 11/08 00:23 09 23:08 Hospitalization Ordered by Yeyo Carreon DO for Observation. Preliminary cg diagnosis is Low back pain - from fall; Pain in left leg; Fall on same level from slipping, tripping and stumbling. Bed requested for Telemetry/MedSurg (observation). Status is Observation. Condition is Stable. Problem is new. Symptoms have improved. cp 11/08 01:02 00:23 11/08/2019 23:08 Hospitalization Ordered by Yeyo Carreon DO for Observation. cp Preliminary diagnosis is Low back pain - from fall; Pain in left leg; Fall on same level from slipping, tripping and stumbling. Bed requested for Telemetry/MedSurg (observation). Status is Observation. Condition is Stable. Problem is new. Symptoms have improved. cg 01:08 01:02 11/08/2019 23:08 Hospitalization Ordered by Nick Ayala MD for Observation. vc Preliminary diagnosis is Low back pain - from fall; Pain in left leg; Fall on same level from slipping, tripping and stumbling. Bed requested for Telemetry/MedSurg (observation). Status is Observation. Condition is Stable. Problem is new. Symptoms have improved. cp
--- NOTE | 2019-11-09 00:07 | P.HP ---
Certification for Inpatient Patient admitted to: Observation With expected LOS: <2 Midnights Patient will require the following post-hospital care: Home Health Services Practitioner: I am a practitioner with admitting privileges, knowledge of patient current condition, hospital course, and medical plan of care. Services: Services provided to patient in accordance with Admission requirements found in Title 42 Section 412.3 of the Code of Federal Regulations Patient History Date of Service: 11/08/19 Primary Care Provider: Dr. Montoya, nephrology Dr. Mera Reason for admission: Multiple falls History of Present Illness: 64-year-old male presents emergency department with chief complaint of left leg pain and tailbone pain after falling today. Approximately 2 weeks ago patient was transferred to [facility] after having a fall which caused a distal left femur fracture. Patient was admitted at [facility] and had surgical fixation of distal left femur fracture. Patient stayed in the hospital approximately 3 days and worked with physical therapy at that time. Patient was discharged and supposed to have home health and physical therapy at home but he was discharged last week and and has yet to have somebody come out his house to provide him with assistance. Patient reports that he has also a Monday dialysis patient he has been unable to arrange for transportation to get to dialysis. Patient was evaluated in the emergency department and ED provider wishes to admit patient for observation due to high risk of repeated falls and inability to take care of himself and gain transport to dialysis. Allergies No Known Drug Allergies Allergy (Mild, Verified 01/08/19 02:05) Unknown Home Medications: Gabapentin [Neurontin*] 100 mg PO TID 01/02/19 Hydrocodone 10/APAP 325 [[place] 10/325*] 1 tab PO QID 01/02/19 Lactulose 20 gm PO DAILYPRN PRN 01/02/19 Tobramycin/Dexamethasone [Tobramycin-Dexameth Ophth Susp] 2 gtt OP BID 01/02/19 Zolpidem Tartrate [Ambien*] 10 mg PO BEDTIME 01/02/19 Guaifenesin [Mucinex] 600 mg PO BID #15 tab.er.12h 01/10/19 cloNIDine HCL [Catapres*] 0.2 mg PO TID #180 tab 01/10/19 Tizanidine [Zanaflex*] 1 tab PO BID 10/04/19 Albuterol Sulfate [Proair Hfa] 2 puff IH TID PRN #1 hfa.aer.ad 10/05/19 Arformoterol Tartrate [Brovana] 15 mcg NEB BIDRESP 30 Days #30 vial.neb 10/05/19 Benzonatate [Tessalon Perle*] 100 mg PO TID PRN 5 Days #15 cap 10/05/19 Doxazosin [Cardura*] 1 tab PO DAILY 30 Days #30 tab 10/05/19 Hydralazine HCl [Apresoline] 100 mg PO TID 30 Days #90 tablet 10/05/19 Ipratropium Neb [Atrovent*] 0.5 mg NEB [id number] 30 Days #1 box 10/05/19 Mometasone/Formoterol [Dulera 100 Mcg/5 Mcg Inhaler] 2 puff IH BID #1 inhaler 10/05/19 Mometasone/Formoterol [Dulera 200 Mcg/5 Mcg Inhaler] 2 puff IH BID #1 inhaler 10/05/19 Pravastatin Sodium [Pravachol] 40 mg PO BEDTIME 30 Days #30 tablet 10/05/19 carvediloL [Coreg*] 6.25 mg PO BID 30 Days #60 tab 10/05/19 predniSONE [Prednisone*] 20 mg PO BID #14 tab 10/05/19 Levofloxacin [Levaquin] 250 mg PO Q48H #4 tablet 10/06/19 - Past Medical/Surgical History Diabetic: Yes -: Hepatitis-C (cured) -: HTN -: Hyperlipidemia -: Chronic pain -: Chronic anemia -: End-stage renal disease on hemodialysis (MWF) -: Diabetes mellitus type 2 -: Chronic pain -: Chronic anemia -: Cirrhosis of liver on the CT scan -: Left knee replacement -: ankle heel spur removed -: Leftankle surgery -: toe surgery -: back surgery -: TENS implant -: Left femur Psychosocial/ Personal History: Patient is . He has 2 children - Family History Sister -: Diabetes, Cancer Notes: colon ca Brother -: Hypertension, Diabetes dad -: Hypertension Notes: Colostomy mom -: Hypertension, Cancer Notes: dementia, Breast Cancer - Social History Alcohol use: No CD- Drugs: No Caffeine use: Yes Place of Residence: Home Review of Systems 10-point ROS is otherwise unremarkable General: Weakness Musculoskeletal: Leg Pain, As per HPI Physical Examination - Physical Exam General: Alert, In no apparent distress HEENT: Atraumatic, PERRLA, Mucous membr. moist/pink Neck: Supple, 2+ carotid pulse no bruit, Without JVD or thyroid abnormality Respiratory: Clear to auscultation bilaterally, Normal air movement Cardiovascular: Regular rate/rhythm, Normal S1 S2 Gastrointestinal: Normal bowel sounds, No tenderness Musculoskeletal: No tenderness Integumentary: No rashes Neurological: Normal gait, Normal speech, Normal strength at 5/5 x4 extr, Normal tone, Normal affect Lymphatics: No axilla or inguinal lymphadenopathy - Studies Laboratory Data (last 24 hrs) 11/08/19 20:37: PT 12.4, INR 1.05 11/08/19 20:37: WBC 6.2, Hgb 8.3 L, Hct 24.9 L, Plt Count 169 11/08/19 20:37: Sodium 135 L, Potassium 4.0, BUN 36 H, Creatinine 5.69 H*, Glucose 282 H 11/08/19 19:42: PT Cancelled, INR Cancelled 11/08/19 19:42: WBC Cancelled, Hgb Cancelled, Hct Cancelled, Plt Count Cancelled 11/08/19 19:42: Sodium Cancelled, Potassium Cancelled, BUN Cancelled, Creatinine Cancelled, Glucose Cancelled Assessment and Plan - Plan Assessment Generalized weakness, multiple falls, high fall risk: Status post surgical intervention left distal femur fracture End-stage renal disease on hemodialysis Diabetes mellitus type 2 Hypertension Hyperlipidemia Anemia of chronic disease Plan Generalized weakness, multiple falls, high fall risk: Patient reports he is unable to take care of himself at home without assistance. Patient reports that he is supposed to have home health physical therapy set up from [facility] but this has not been set up yet, he reports he has was supposed to receive a phone call on Monday of next week to have this set up. Patient reports multiple falls since he has been home last weekend after his admission for distal left femur fracture. Patient reports his family is unwilling and unable to assist in taking care of him. Has walker and wheelchair at home but having difficulty getting around the following and also cannot drive and having difficulty arranging for transportation to dialysis. Patient admitted under observation, will have physical therapy see patient tomorrow. If physical therapy can offer patient some advice to decrease fall risk patient could potentially be discharged tomorrow as it is unlikely he will be able to speak with social organization professor given that it is the weekend. DVT prophylaxis. Heparin 5000 units subcutaneous twice daily. Status post surgical intervention left distal femur fracture: Physical therapy consult in place, pain medication as needed. End-stage renal disease on hemodialysis: Nephrology consult in place. Patient did miss dialysis yesterday and will likely need additional support arranging for transportation to and from dialysis due to his current inability to drive. Diabetes mellitus type 2: A.c. HS Accu-Cheks, sliding scale insulin therapy. Hypertension: Obtain and continue patient's home medications. P.r.n. medicatio ns in the meantime Hyperlipidemia: Obtain and continue patient's home medications. Anemia of chronic disease: Hemoglobin currently greater than 8, will continue to monitor. Transfuse as necessary. No signs of active bleeding. Discharge Plan: Home Plan to discharge in: 24 Hours - Advance Directives Does patient have a Living Will: No Does patient have a Durable POA for Healthcare: Yes - Code Status/Comfort Care Code Status Assessed: Yes (Patient is full code) Critical Care: No Time Spent Managing Pts Care (In Minutes): 55
[2019-11-09] MEDS ORDERED: MORPHINE 2 MG/ML SYR ONE (00:18)
[2019-11-09] MEDS ORDERED: ACETAMINOPHEN 500 MG TAB PO PRN (00:41)
[2019-11-09] MEDS ORDERED: ONDANSETRON 4 MG/2 ML VIAL IV PRN (00:41)
[2019-11-09] MEDS: HYDROCODONE/APAP 7.5/325 MG TAB PO PRN ×3 (01:46→14:11)
[2019-11-09 05:40] LABS: Absolute Lymphocytes (CBC) 1.1 K/uL (0.7-4.9); Basophils % 0.8 % (0-1.3); MPV 8.9 fL (7.6-11.3); RBC Red Blood Cell Count 2.52 M/uL (4.33-5.43)
--- NOTE | 2019-11-09 09:00 | EKG ---
Test Date: 2019-11-08 Test Time: 20:15:18 Php Architect: LEX MEASUREMENT RESULTS: Intervals: Rate: 65 NH: 144 QRSD: 92 QT: 432 QTc: 449 [place]: P: 57 NH: 144 QRS: 12 T: 98 INTERPRETIVE STATEMENTS: Normal sinus rhythm Possible Left atrial enlargement Nonspecific ST and T wave abnormality Abnormal ECG Compared to ECG 10/04/2019 09:24:29 Left-axis deviation no longer present Prolonged QT interval no longer present ST (T wave) deviation still present Electronically Signed On 11-09-19 08:59:55 CDT by Jose Francisco Mckeon
--- NOTE | 2019-11-09 09:15 | RAD REPORT ---
EXAM DESCRIPTION: US - Extrem Venous W Compress Fer - 11/08/2019 9:23 pm CLINICAL HISTORY: PAIN, SWELLILNG Bilateral leg edema and swelling. COMPARISON: EXT VENOUS UNI LTD dated 11/17/2014 TECHNIQUE: Real-time sonographic interrogation of the left and right lower extremity deep venous sys tems was performed. FINDINGS: Normal compressibility, flow augmentation, phasic flow and spontaneous flow is identified in both the left and right lower extremity deep venous systems. IMPRESSION: No sonographic evidence of left or right lower extremity deep venous thrombosis.
--- NOTE | 2019-11-09 09:16 | RAD REPORT ---
EXAM DESCRIPTION: RAD - Pelvis - 11/08/2019 9:26 pm CLINICAL HISTORY: PAIN COMPARISON: No comparisons FINDINGS: Surgical hardware is present in the lower lumbar spine. Bones are osteopenic. 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 Hardware is noted proximal left femur.
--- NOTE | 2019-11-09 09:17 | RAD REPORT ---
EXAM DESCRIPTION: RAD - Lumbar Spine 3 Views - 11/08/2019 9:28 pm CLINICAL HISTORY: PAIN Radiculopathy COMPARISON: No comparisons FINDINGS: Advanced degenerative change with postsurgical hardware in place in the lumbar spine. Dege nerative changes most notable at L2-3. Heavy aortic atherosclerosis. No acute fracture or subluxation seen.
--- NOTE | 2019-11-09 09:18 | RAD REPORT ---
EXAM DESCRIPTION: RAD - Femur Left - 11/08/2019 10:25 pm CLINICAL HISTORY: PAIN COMPARISON: Femur Left dated 10/27/2019 FINDINGS: Intramedullary radha with multiple screws is present within the left femur. Distal femoral s haft fracture lucency persists. Left total knee arthroplasty hardware is present. Moderate soft tissu e swelling is seen about the knee. Mild atherosclerosis.
[2019-11-09] MEDS: carvediloL 6.25 MG TAB PO SCH ×2 (09:29→17:00)
[2019-11-09] MEDS: DOXAZOSIN 2 MG TAB PO SCH (09:29)
[2019-11-09] MEDS: cloNIDine HCL 0.1 MG TAB PO SCH ×2 (09:29→21:00)
[2019-11-09] MEDS: HYDRALAZINE HCL 25 MG TABLET PO SCH ×4 (09:29→21:00)
[2019-11-09] MEDS: BUMETANIDE 1 MG TABLET PO SCH (09:30)
[2019-11-09] MEDS: HEPARIN 5000 UNIT/ML 1 ML VIAL SQ SCH ×2 (09:30→21:08)
[2019-11-09] MEDS: ASPIRIN 81 MG CHEWABLE TABLET PO SCH (09:30)
[2019-11-09] MEDS: INSULIN -REGULAR HUMAN 50 UNIT/0.5 ML ML SQ SCH ×4 (09:36→21:00)
--- NOTE | 2019-11-09 11:00 | P.PN ---
Subjective Date of Service: 11/09/19 Primary Care Provider: Dr. Montoya, nephrology Dr. Mera Chief Complaint: Multiple falls Subjective: No new changes, C/O voiced (-complain of pain over the lower back and over the left lower extremity -State poor mobility of the left lower extremity post surgery due to pain -admits to following with pain clinic as outpatient prior to fall and fracture -patient requesting inpatient SNF if possible) Physical Examination - Vital Signs Temperature: 97.4 F Blood Pressure: 197/60 Pulse: 60 Respirations: 20 Pulse Ox (%): 96 - Physical Exam General: Alert, In no apparent distress, Oriented x3 HEENT: Atraumatic, Normocephalic, PERRLA, Mucous membr. moist/pink Neck: Supple, 2+ carotid pulse no bruit, JVD not distended Respiratory: Clear to auscultation bilaterally, Normal air movement Cardiovascular: No edema, Normal pulses, Regular rate/rhythm, Normal S1 S2, Other (left AVF ), Edema Gastrointestinal: Normal bowel sounds, Soft and benign, Non-distended, No tenderness Musculoskeletal: Swelling Integumentary: No erythema, No warmth, Rash(es), Other (sutures over distal left thigh , mutiple post surgery ecchymosis , circular ulcer over anterior foot ) Neurological: Normal speech, Normal strength at 5/5 x4 extr, Normal tone - Studies Laboratory Data (last 24 hrs) 11/08/19 20:37: PT 12.4, INR 1.05 11/08/19 20:37: WBC 6.2, Hgb 8.3 L, Hct 24.9 L, Plt Count 169 11/08/19 20:37: Sodium 135 L, Potassium 4.0, BUN 36 H, Creatinine 5.69 H*, Glucose 282 H 11/08/19 19:42: PT Cancelled, INR Cancelled 11/08/19 19:42: WBC Cancelled, Hgb Cancelled, Hct Cancelled, Plt Count Cancelled 11/08/19 19:42: Sodium Cancelled, Potassium Cancelled, BUN Cancelled, Creatinine Cancelled, Glucose Cancelled Assessment & Plan - Problems (Diagnosis) (1) Foot ulcer, left Current Visit: Yes Status: Acute (2) Closed left femoral fracture Current Visit: Yes Status: Acute (3) Asthenia Current Visit: Yes Status: Acute (4) Diabetes Current Visit: No Status: Acute (5) Renal failure Onset Date: 11/12/14 Current Visit: No Status: Acute (6) End stage renal disease Current Visit: No Status: Chronic (7) Hypertension Current Visit: No Status: Chronic Qualifiers: Hypertension type: essential hypertension Qualified Code(s): I10 - Essential (primary) hypertension (8) Uncontrolled diabetes mellitus Current Visit: No Status: Chronic Qualifiers: Diabetes mellitus type: type 2 Physician Review: Patient Assessed, Agree with Above Assessment and Plan Physician Review Additional Text: Generalized weakness/Asthenia - due to post op status and muscle weakness Recurrent falls s/p Recent left distal femoral fracture ORIF Missed HD sessions End-stage renal disease on hemodialysis Diabetes mellitus type 2 Hypertension Hyperlipidemia Anemia of chronic disease Chronic pain syndrome Plan Generalized weakness, multiple falls, high fall risk: with progressive debility post surgery in with chronic back pain Follow PT and OT evaluation today As per patient request will consult social Work for possibility of acute rehab placement Continue pain medication with p.r.n. hydroxycodone-APAP while inpatient Patient follows at pain clinic in the outpatient c/w Heparin 5000 units subcutaneous twice daily. Status post surgical intervention left distal femur fracture: c/w pain meds prn End-stage renal disease on hemodialysis: s/p missed HD , follow with renal team for HD today Diabetes mellitus type 2: A.c. HS Accu-Cheks, sliding scale insulin therapy. Hypertension: uncontrolled , restart home meds, follow post dialysis Hyperlipidemia: Obtain and continue patient's home medications. Anemia of chronic disease: still low but stable h/h , c/w Epogen Discharge Plan: Home Time Spent Managing Pts Care (In Minutes): 30
[2019-11-09] MEDS: LIDOCAINE 4% PATCH TOP SCH (11:18)
[2019-11-09] MEDS: HYDRALAZINE HCL 20 MG/ML VIAL IV PRN (11:19)
[2019-11-09] MEDS: GABAPENTIN 100 MG CAP PO SCH ×2 (14:11→21:00)
--- NOTE | 2019-11-09 15:40 | P.CNS ---
Date of Consult: 11/09/19 Reason for Consult: ESRD , fluid and electrolytes managment Primary Care Provider: Dr. Montoya, nephrology Dr. Mera Chief Complaint: Multiple falls History of Present Illness: 64-year-old gentleman, past medical history of end-stage renal disease, on dialysis Monday, Monday, Monday at [place] hemodialysis via Lt AVF , diabetes complicated with neuropathy and nephropathy, hepatitis C pt presneted for Leg pain and falls pt was recently discharged from [facility] for Lt leg fracture required ORIF, now presented for recurrent falls deneid chest pain, palpitation, fever , chills nausea or vomiting pt missed HD on Monday Physical exam general: AAOX3, NAD , obese Neck; Supple, No elevated JVD hear: RRR, normal S1,2 no murmur or rub Chest: CTAB, no rlaes or wheezes Abdomen: Soft , Nt Extremities Lt leg edema, with bruising and ankle pressure ulcer, Rt leg edema ESRD on HD MWF HD today then MWF renal dose meds Anemia of chronic disease will start epogen will send for anemia W/U MBD jeevan lcheck PTH and Phos level HTN cont current meds hyponatremia will correct with HD recurrent falls S/p recet lt lower extremity ORIF PT/OT will hold on heparin with HD Allergies No Known Drug Allergies Allergy (Mild, Verified 01/08/19 02:05) Unknown Home Medications: Aspirin Chewable [Aspirin Chewable*] 81 mg PO DAILY 11/09/19 Bumetanide [Bumex] 2 mg PO DAILY 11/09/19 Clonidine HCl [Catapres*] 0.2 mg PO BID 11/09/19 Doxazosin Mesylate [Cardura] 2 mg PO DAILY 11/09/19 Folic Acid/Vit B Complex and C [Dialyvite 800 Chewable Wafer] 800 mcg PO DAILY 11/09/19 Gabapentin [Neurontin*] 100 mg PO TID 11/09/19 Hydralazine [Apresoline] 100 mg PO QID 11/09/19 Hydrocodone Bit/Acetaminophen [Hydrocodon-Acetaminophn 10-325] 1 tab PO QIDP PRN 11/09/19 Pravastatin Sodium [Pravachol] 40 mg PO DAILY 11/09/19 Tizanidine HCl [Zanaflex] 4 mg PO BID 11/09/19 carvediloL [Coreg] 6.25 mg PO BID 11/09/19 - Past Medical/Surgical History Diabetic: Yes -: Hepatitis-C (cured) -: HTN -: Hyperlipidemia -: Chronic pain -: Chronic anemia -: End-stage renal disease on hemodialysis (MWF) -: Diabetes mellitus type 2 -: Chronic pain -: Chronic anemia -: Cirrhosis of liver on the CT scan -: Left knee replacement -: ankle heel spur removed -: Leftankle surgery -: toe surgery -: back surgery -: TENS implant -: Left femur Psychosocial/ Personal History: Patient is . He has 2 children - Family History Sister Medical History: Diabetes, Cancer Notes: colon ca Brother Medical History: Hypertension, Diabetes dad Medical History: Hypertension Notes: Colostomy mom Medical History: Hypertension, Cancer Notes: dementia, Breast Cancer - Social History Smoking Status: Unknown if ever smoked Alcohol use: No CD- Drugs: No Caffeine use: Yes Place of Residence: Home Physical Examination Temp Pulse Resp BP Pulse Ox 97.7 F 56 19 165/70 H 95 11/09/19 12:00 11/09/19 12:00 11/09/19 14:11 11/09/19 12:00 11/09/19 14:11 Laboratory Data (last 24 hrs) 11/08/19 20:37: PT 12.4, INR 1.05 11/08/19 20:37: WBC 6.2, Hgb 8.3 L, Hct 24.9 L, Plt Count 169 11/08/19 20:37: Sodium 135 L, Potassium 4.0, BUN 36 H, Creatinine 5.69 H*, Glucose 282 H 11/08/19 19:42: PT Cancelled, INR Cancelled 11/08/19 19:42: WBC Cancelled, Hgb Cancelled, Hct Cancelled, Plt Count Cancelled 11/08/19 19:42: Sodium Cancelled, Potassium Cancelled, BUN Cancelled, Creatinine Cancelled, Glucose Cancelled
[2019-11-09] MEDS ORDERED: EPOETIN 4,000 UNIT/ML VIAL IV SCH (15:45)
[2019-11-09] MEDS ORDERED: HYDROCODONE/APAP 7.5/325 MG TAB PO ONE (16:54)
[2019-11-09] MEDS: ATORVASTATIN 10 MG TAB PO SCH (21:00)
[2019-11-09] MEDS: TIZANIDINE 4 MG TABLET PO SCH (21:00)
[2019-11-10] MEDS: HYDROCODONE/APAP 7.5/325 MG TAB PO PRN ×4 (03:04→16:39)
[2019-11-10] MEDS: HYDRALAZINE HCL 20 MG/ML VIAL IV PRN (04:35)
[2019-11-10] MEDS: INSULIN -REGULAR HUMAN 50 UNIT/0.5 ML ML SQ SCH ×4 (07:30→20:26)
[2019-11-10 08:36] LABS: Ferritin 864.9 ng/mL (26-388); Folic Acid, (Folate) 12.3 ng/mL (3.1-17.5); Phosphorus 3.6 mg/dL (2.5-4.9)
[2019-11-10] MEDS: GABAPENTIN 100 MG CAP PO SCH ×3 (08:36→20:24)
[2019-11-10] MEDS: HYDRALAZINE HCL 25 MG TABLET PO SCH ×4 (08:36→21:13)
[2019-11-10] MEDS: cloNIDine HCL 0.1 MG TAB PO SCH ×2 (08:37→20:24)
[2019-11-10] MEDS: DOXAZOSIN 2 MG TAB PO SCH (08:37)
[2019-11-10] MEDS: BUMETANIDE 1 MG TABLET PO SCH (08:38)
[2019-11-10] MEDS: ASPIRIN 81 MG CHEWABLE TABLET PO SCH (08:38)
[2019-11-10] MEDS: TIZANIDINE 4 MG TABLET PO SCH ×2 (08:38→20:24)
[2019-11-10] MEDS: carvediloL 6.25 MG TAB PO SCH ×2 (08:38→16:27)
[2019-11-10] MEDS: LIDOCAINE 4% PATCH TOP SCH (08:39)
[2019-11-10] MEDS: HEPARIN 5000 UNIT/ML 1 ML VIAL SQ SCH ×2 (08:39→20:23)
--- NOTE | 2019-11-10 10:17 | P.PN ---
Subjective Date of Service: 11/10/19 Primary Care Provider: Dr. Montoya, nephrology Dr. Mera Chief Complaint: Multiple falls Subjective: No new changes, No C/O voiced (- states still pain with moving left lower extremity - worreid about lack of care at home s/p tolerated dialysis well yesterday) Physical Examination - Vital Signs Temperature: 97.5 F Blood Pressure: 181/85 Pulse: 66 Respirations: 16 Pulse Ox (%): 96 - Physical Exam General: Alert, In no apparent distress HEENT: Atraumatic, Normocephalic, PERRLA Neck: Supple, 2+ carotid pulse no bruit Respiratory: Clear to auscultation bilaterally, Normal air movement, Diminished Cardiovascular: Normal pulses, Regular rate/rhythm, Normal S1 S2 Gastrointestinal: Normal bowel sounds, Soft and benign, Non-distended Musculoskeletal: No clubbing, No swelling, No contractures, Swelling, Erythema (sutures over left knee ) Neurological: Normal speech, Normal tone Assessment & Plan - Problems (Diagnosis) (1) Foot ulcer, left Current Visit: Yes Status: Acute (2) Closed left femoral fracture Current Visit: Yes Status: Acute (3) Asthenia Current Visit: Yes Status: Acute (4) Diabetes Current Visit: No Status: Acute (5) Renal failure Onset Date: 11/12/14 Current Visit: No Status: Acute (6) End stage renal disease Current Visit: No Status: Chronic (7) Hypertension Current Visit: No Status: Chronic Qualifiers: Hypertension type: essential hypertension Qualified Code(s): I10 - Essential (primary) hypertension (8) Uncontrolled diabetes mellitus Current Visit: No Status: Chronic Qualifiers: Diabetes mellitus type: type 2 Physician Review: Patient Assessed, Agree with Above Assessment and Plan Physician Review Additional Text: Generalized weakness/Asthenia - due to post op status and muscle weakness Recurrent falls s/p Recent left distal femoral fracture ORIF Missed HD sessions End-stage renal disease on hemodialysis Diabetes mellitus type 2 Hypertension Hyperlipidemia Anemia of chronic disease Chronic pain syndrome Plan Generalized weakness, multiple falls, high fall risk: with progressive debility post surgery in with chronic back pain awaiting PT and OT evaluation Patienty requesting for SNF or acute rehab , follow case mgt and social work Continue pain medication with p.r.n. hydroxycodone-APAP while inpatient Patient follows at pain clinic in the outpatient c/w Heparin sq for DVT prop Status post surgical intervention left distal femur fracture: c/w pain meds prn End-stage renal disease on hemodialysis: s/p missed HD , restarted on MWF -follow with renal team Diabetes mellitus type 2: Mark JAVIER Accu-Cheks, sliding scale insulin therapy. Hypertension: uncontrolled , adjust Cardura to 4 mg bid , c/w clonidine /hydralazine/coreg Hyperlipidemia: Obtain and continue patient's home medications. Anemia of chronic disease: still low at 8.1 but stable h/h , c/w Epogen Discharge Plan: Home Time Spent Managing Pts Care (In Minutes): 35
--- NOTE | 2019-11-10 11:40 | P.PN ---
Subjective Date of Service: 11/10/19 Primary Care Provider: Dr. Montoya, nephrology Dr. Mera Chief Complaint: Multiple falls Subjective 64-year-old gentleman, past medical history of end-stage renal disease, on dialysis Monday, Monday, Monday at [place] hemodialysis via Lt AVF , diabetes complicated with neuropathy and nephropathy, hepatitis C pt presented for Leg pain and falls, had recent ORIF today no overnight events BP elevated , will add nifedipine HD tomorrow PT/OT Physical exam general: AAOX3, NAD , obese Neck; Supple, No elevated JVD hear: RRR, normal S1,2 no murmur or rub Chest: CTAB, no rlaes or wheezes Abdomen: Soft , Nt Extremities Lt leg edema, with bruising and ankle pressure ulcer, Rt leg edema ESRD on HD MWF HD today then MWF renal dose meds Anemia of chronic disease cont epogen will start IV dejon MBD Phos controlled HTN cont current meds will add nifedipine hyponatremia will correct with HD recurrent falls S/p recet lt lower extremity ORIF PT/OT will hold on heparin with HD Physical Examination - Vital Signs Temperature: 97.5 F Blood Pressure: 181/85 Pulse: 66 Respirations: 16 Pulse Ox (%): 96 Assessment And Plan Physician Review: Patient Assessed, Agree with Above Assessment and Plan
[2019-11-10] MEDS: NIFEDIPINE XL 30 MG TABLET PO SCH (12:56)
[2019-11-10] MEDS: DOXAZOSIN 4 MG TAB PO SCH (20:23)
[2019-11-10] MEDS: ATORVASTATIN 10 MG TAB PO SCH (20:24)
[2019-11-11] MEDS: HYDROCODONE/APAP 7.5/325 MG TAB PO PRN ×4 (00:41→21:09)
[2019-11-11 05:38] LABS: Absolute Lymphocytes (CBC) 1.2 K/uL (0.7-4.9); Basophils % 1.1 % (0-1.3); Hematocrit 23.7 % (39.6-49.0); Lymphocytes % 15.9 % (15.3-44.8); MPV 9.1 fL (7.6-11.3); RBC Red Blood Cell Count 2.46 M/uL (4.33-5.43)
[2019-11-11 05:54] LABS: ALT/SGPT < 6 U/L (12-78); AST/SGOT 15 U/L (15-37); Albumin 2.4 g/dL (3.4-5.0); Alkaline Phosphatase 136 U/L (45-117); BUN Blood Urea Nitrogen 39 mg/dL (7-18); Bicarbonate 28 mmol/L (21-32); Bilirubin Total 1.2 mg/dL (0.2-1.0); Glucose Level 137 mg/dL (74-106); Potassium 5.5 mmol/L (3.5-5.1); Protein, Total 5.7 g/dL (6.4-8.2); Sodium Level 134 mmol/L (136-145)
[2019-11-11] MEDS: INSULIN -REGULAR HUMAN 50 UNIT/0.5 ML ML SQ SCH ×4 (07:30→21:00)
[2019-11-11] MEDS ORDERED: DOXAZOSIN 2 MG TAB ONE (07:47)
[2019-11-11] MEDS: HEPARIN 5000 UNIT/ML 1 ML VIAL SQ SCH ×2 (08:39→21:00)
[2019-11-11] MEDS: LIDOCAINE 4% PATCH TOP SCH (08:39)
[2019-11-11] MEDS: carvediloL 6.25 MG TAB PO SCH ×2 (08:40→16:09)
[2019-11-11] MEDS: HYDRALAZINE HCL 25 MG TABLET PO SCH ×3 (08:40→16:08)
[2019-11-11] MEDS: BUMETANIDE 1 MG TABLET PO SCH (08:41)
[2019-11-11] MEDS: ASPIRIN 81 MG CHEWABLE TABLET PO SCH (08:41)
[2019-11-11] MEDS: TIZANIDINE 4 MG TABLET PO SCH ×2 (08:41→21:19)
[2019-11-11] MEDS: cloNIDine HCL 0.1 MG TAB PO SCH (08:42)
[2019-11-11] MEDS: GABAPENTIN 100 MG CAP PO SCH ×2 (08:42→13:29)
[2019-11-11] MEDS: DOXAZOSIN 4 MG TAB PO SCH ×2 (08:43→21:00)
[2019-11-11] MEDS: NIFEDIPINE XL 30 MG TABLET PO SCH (08:44)
[2019-11-11] MEDS: IRON SUCROSE 100 MG in NA CHLORIDE 0.9% 100 ML IV SCH (08:58)
[2019-11-11] MEDS ORDERED: SOD FERRIC GLUC COMPLX/SUCROSE 125 MG in NA CHLORIDE 0.9% 100 ML IV SCH (09:00)
[2019-11-11] MEDS ORDERED: EPOETIN ALFA 10,000 UNIT/ML VIAL IV SCH (11:00)
--- NOTE | 2019-11-11 14:15 | P.PN ---
Subjective Date of Service: 11/11/19 Patient presents after knee replacement surgery a week and half ago. Patient is having severe pain in that leg. Patient also has a necrotic wound on the left ankle over the medial malleolus. This looks like it needs to be debrided as there are areas of erythema around the necrotic ulcer. Patient is having numbness and tingling and has significant neuropathy. Patient has severe peripheral arterial disease and has been told that he will need stents placed in the left common femoral as well as 1 of his renal arteries. Patient would benefit from inpatient rehab or senior care facility placement. He has had a hard time recovering after his knee replacement surgery. His strength is still has not improved adequately. Patient also has severe anemia which is probably making it harder for the wounds to heal. Continue iron transfusions. Will have wound healing consultation performed and patient may need general surgery consultation as well. Review of Systems 10-point ROS is otherwise unremarkable Physical Examination - Vital Signs Temperature: 97.8 F Blood Pressure: 135/62 Pulse: 50 Respirations: 16 Pulse Ox (%): 97 - Physical Exam General: Alert, In no apparent distress, Oriented x3 Respiratory: Clear to auscultation bilaterally, Normal air movement Cardiovascular: Regular rate/rhythm, Normal S1 S2, Systolic murmur Gastrointestinal: Normal bowel sounds, No tenderness Musculoskeletal: Swelling, Tenderness Integumentary: Tenderness/swelling, Erythema, Warmth, Arterial ulcer, Other (eschar over the left medial malleolus) Neurological: Normal speech, Normal tone, Normal affect Lymphatics: No axilla or inguinal lymphadenopathy - Studies Medications List Reviewed: Yes Assessment & Plan - Problems (Diagnosis) (1) Status post left knee replacement Current Visit: Yes Status: Acute (2) Necrotic eschar Current Visit: Yes Status: Acute (3) Wound of left ankle Current Visit: Yes Status: Acute (4) Peripheral arterial disease Current Visit: Yes Status: Acute (5) Neuropathy Current Visit: No Status: Acute (6) COPD exacerbation Current Visit: No Status: Acute (7) CVA (cerebrovascular accident) Current Visit: No Status: Acute (8) Diabetes Current Visit: No Status: Acute (9) COPD (chronic obstructive pulmonary disease) Current Visit: No Status: Chronic (10) End stage renal disease Current Visit: No Status: Chronic (11) Hypertension Current Visit: No Status: Chronic Qualifiers: Hypertension type: essential hypertension Qualified Code(s): I10 - Essential (primary) hypertension - Plan Plan: 1. Surgery consultation 2. IV antibiotic therapy 3. Wound healing consultation 4. Monitor H&H as patient may need blood transfusion; currently getting iron transfusion 5. Hemodialysis per Nephrology on Monday 6. Strict blood pressure and blood sugar control; patient w/ neuropathy and needs to be monitor 7. Continue with physical therapy evaluation 8. Generalized weakness and patient may benefit from senior care as patient with wound on the same side as the left knee replacement; patient has a eschar and wound that looks necrotic. General surgery has been consulted. 9. GI and DVT prophylaxis Discharge Plan: Home Plan to discharge in: Greater than 2 days - Advance Directives Does patient have a Living Will: No Does patient have a Durable POA for Healthcare: No - Code Status/Comfort Care Code Status Assessed: Yes Code Status: Full Code Physician Review: Patient Assessed, Agree with Above Assessment and Plan Critical Care: No Time Spent Managing PTS Care (In Minutes): 35
[2019-11-11] MEDS: PIPER/TAZO/NS 2.25gm 2.25 GM/50 ML BAG IVPB SCH (16:08)
[2019-11-11] MEDS: JUVEN PACKET PO SCH (21:00)
[2019-11-12] MEDS: cloNIDine HCL 0.1 MG TAB PO SCH ×3 (02:19→21:34)
[2019-11-12] MEDS: ATORVASTATIN 10 MG TAB PO SCH ×2 (02:20→21:36)
[2019-11-12] MEDS: HYDRALAZINE HCL 25 MG TABLET PO SCH ×5 (02:21→21:35)
[2019-11-12] MEDS: HYDROCODONE/APAP 7.5/325 MG TAB PO PRN ×3 (02:22→16:47)
[2019-11-12] MEDS: PIPER/TAZO/NS 2.25gm 2.25 GM/50 ML BAG IVPB SCH ×3 (02:22→16:00)
[2019-11-12] MEDS: GABAPENTIN 100 MG CAP PO SCH ×5 (02:22→21:36)
[2019-11-12] MEDS ORDERED: DOXAZOSIN 2 MG TAB ONE ×3 (02:30→20:16)
[2019-11-12 05:47] LABS: AST/SGOT 14 U/L (15-37); Albumin 2.3 g/dL (3.4-5.0); Alkaline Phosphatase 146 U/L (45-117); BUN Blood Urea Nitrogen 27 mg/dL (7-18); Bicarbonate 32 mmol/L (21-32); Bilirubin Total 1.1 mg/dL (0.2-1.0); Glucose Level 116 mg/dL (74-106); Potassium 4.4 mmol/L (3.5-5.1); Protein, Total 5.9 g/dL (6.4-8.2); Sodium Level 135 mmol/L (136-145)
[2019-11-12 05:50] LABS: Absolute Lymphocytes (CBC) 1.1 K/uL (0.7-4.9); Basophils % 1.2 % (0-1.3); Hematocrit 23.8 % (39.6-49.0); Lymphocytes % 18.7 % (15.3-44.8)
[2019-11-12 05:58] LABS: ALT/SGPT < 6 U/L (12-78)
[2019-11-12] MEDS: INSULIN -REGULAR HUMAN 50 UNIT/0.5 ML ML SQ SCH ×4 (07:30→21:00)
[2019-11-12] MEDS: IRON SUCROSE 100 MG in NA CHLORIDE 0.9% 100 ML IV SCH (08:00)
[2019-11-12] MEDS: carvediloL 6.25 MG TAB PO SCH ×2 (08:00→16:36)
[2019-11-12] MEDS: ASPIRIN 81 MG CHEWABLE TABLET PO SCH (09:00)
[2019-11-12] MEDS: JUVEN PACKET PO SCH ×2 (09:00→21:40)
[2019-11-12] MEDS: HEPARIN 5000 UNIT/ML 1 ML VIAL SQ SCH ×3 (09:00→21:00)
[2019-11-12] MEDS: DOXAZOSIN 4 MG TAB PO SCH ×2 (09:00→21:00)
[2019-11-12] MEDS: NIFEDIPINE XL 30 MG TABLET PO SCH (09:13)
[2019-11-12] MEDS: LIDOCAINE 4% PATCH TOP SCH (09:16)
--- NOTE | 2019-11-12 09:17 | RAD REPORT ---
EXAM DESCRIPTION: RAD - Foot Left 3 View - 11/12/2019 9:06 am CLINICAL HISTORY: cellulitis Pain and swelling COMPARISON: FOOT AP LAT dated 06/11/2011; Chest Single View dated 11/08/2019 FINDINGS: Heavy vascular atherosclerotic calcification noted. No soft tissue gas. Moderate soft tiss ue swelling is seen about the foot. Small calcaneal spur is present. No plain radiographic evidence o f osteomyelitis identified. If osteomyelitis remains a clinical concern, follow-up MR imaging could b e performed.
--- NOTE | 2019-11-12 09:40 | PN ---
Date of Progress Note: 11/11/2019 Chief Complaint: End-stage renal disease, on dialysis. History Of Present Illness: The patient has history of end-stage renal disease, on dialysis Monday, Monday, Monday via the left upper extremity AV fistula, has history of diabetes mellitus, complicated by diabetic nephropathy, neuropathy as well as hepatitis C. The patient underwent ORIF, fracture of the femur. Today, he denies PND or orthopnea. Physical Examination: LUNGS: Diminished breath bases at bases. HEART: S1 and S2. ABDOMEN: Soft, benign. EXTREMITIES: Slight edema. Laboratory Data: Hemoglobin 7.6, WBC 7.3, platelet count 200,000. Chemistry show sodium 134, potassium 5.5, chloride 99, CO2 29, BUN 39, creatinine 6.18, glucose 137, calcium 7.9, albumin 2.4. Impression And Plan: 1. End-stage renal disease. Dialysis will be done today with ultrafiltration. Monitor electrolytes, adjust dialysis parameters. 2. Hyperkalemia, mild. The patient will have dialysis with 2 potassium dialysate. 3. Hyponatremia due to fluid overload. Dilutional effect of volume overload causing the hyponatremia. Continue low-sodium diet and p.o. fluid restriction. The patient will have dialysis with ultrafiltration today. 4. Hypertension. Blood pressure controlled. 5. Renal osteodystrophy. Continue renal diet and binders. 6. The patient will be evaluated by Ortho Service. Further recommendation appreciated. EFRAIN Voice ID: [id number] Report ID: [id number] [email or web address]
[2019-11-12] MEDS: TIZANIDINE 4 MG TABLET PO SCH ×2 (10:00→21:36)
[2019-11-12] MEDS: FOLIC ACID 1 MG TABLET PO SCH (10:00)
[2019-11-12] MEDS: BUMETANIDE 1 MG TABLET PO SCH (10:00)
[2019-11-12] MEDS ORDERED: VANCOMYCIN 1 GM in NA CHLORIDE 0.9% 250 ML IVPB ONE (11:00)
[2019-11-12] MEDS: MUPIROCIN 2% OINT 22GM TUBE TOP SCH (11:16)
[2019-11-12] MEDS ORDERED: EPOETIN 4,000 UNIT/ML VIAL IV SCH (14:15)
--- NOTE | 2019-11-12 14:52 | PN ---
Date of Progress Note: 11/12/2019 Subjective: The patient was admitted with recurrent fall. The patient feeling okay. Physical Examination: Vital Signs: Blood pressure 154/59, pulse of 60, afebrile. Chest: Clear to auscultation. Heart: S1, S2 regular. Abdomen: Soft, nontender. Extremity: No edema. Neurologic: Alert. Nonfocal. Laboratory Data: H and H 7.9/23.8. Sodium 135, potassium 4.4, bicarb 32, BUN 27, creatinine 4.5, calcium 8.2. Current Medications: The patient on its include; 1. Zosyn. 2. Vancomycin. 3. Zanaflex. 4. IV iron. 5. Epogen. 6. Carvedilol 6.25 b.i.d. 7. Clonidine 0.2 b.i.d. 8. Hydralazine. 9. Nifedipine. 10. Bumex. 11. Morphine. Assessment And Plan: 1. End-stage renal disease. We will continue the patient on dialysis Monday, Monday, Monday. The patient is scheduled for dialysis tomorrow. 2. Hypertension, controlled, optimal. Continue current treatment. 3. Secondary hyperparathyroidism. We will continue the patient on his binder. 4. Anemia of chronic kidney disease. I am going to resume DEXTER. 5. Renal artery stenosis. We will follow up with Vascular. 6. Recurrent fall as by primary. Continue PT, OT. 7. Diabetes as by primary. time spend to coordinate the care , speaking with other Physician and team staff , face to face with the patient and placing order 35 min COURTNEY Voice ID: [id number] Report ID: [id number] [email or web address]
--- NOTE | 2019-11-12 16:31 | CON ---
Date of Consultation: 11/12/2019 Brief History Of Present Illness: The patient is a 64-year-old male, who presented to the e mergency department on 11/08/2019 after having multiple falls. His chief complaint was leg pain on t he left side and tailbone pain after falling earlier in the day. Two weeks ago, the patient was silva sferred to [facility] after having a fall, which caused a distal femur fraction. He at [facility] has surgical fixation of his distal left femur fracture. At that point, he stayed in the ospital for 3 days and worked with Physical Therapy. He was discharged and was supposed to have home health and physical therapy at home, but had not had any followup with any assistance as an outpatie nt. He has been getting Monday, Monday, Monday dialysis and unable to arrange for transportation to get dialysis and he was evaluated in the emergency department and he was brought in to evaluate hi s recent history of falls as well as his dialysis, which has not been completed recently. Past Medical History: Significant for hypertension; hepatitis C; hyperlipidemia; chronic pain; chron ic anemia; end-stage renal disease, on hemodialysis Monday, Monday, Monday; diabetes type 2; cirrh osis of the liver. Past Surgical History: Includes a left knee replacement, ankle heel spur removed, left ankle surgery , toe surgery, back surgery, TENS implant, and left femur repair. Social History: The patient is . He has 2 children. He denies smoking, alcohol, or recreat ional drug use. Family History: His sister had diabetes and colon cancer. His stepbrother had hypertension and diab etes. His father had hypertension. Allergies: NO KNOWN DRUG ALLERGIES. Home Medications: Include Neurontin, hydrocodone, lactulose, tobramycin/dexamethasone ophthalmic joanne ution, Ambien, Mucinex, Catapres, Zanaflex, ProAir, , Tessalon Perles, Cardura, hydralazine , Atrovent, Dulera, Pravachol, Coreg, prednisone, Levaquin. Review of Systems: Ten-point review of systems other than HPI, denies. Physical Examination: Vital Signs: During my exam, his BMI was 28.3. His vital signs were a temperature of 97.5, respirat ory rate 16, pulse 60, blood pressure 154/57, SpO2 95% on room air. General: He is awake, alert, oriented. Psychiatric: Appropriate, conversive. HEENT: Normocephalic. Sclerae anicteric. Mucous membranes are moist. Oropharynx is clear. Neck: Supple. No JVD. Chest: Normal expansion and excursion. Cardiovascular: Regular rate and rhythm. Pulmonary: Clear to auscultation bilaterally. Abdomen: Soft. Extremities: Focal examination of the extremities; his left ankle area has a large dark eschar overl giorgi with a small rim of hyperemia. It is not tender to palpation. There is no ascending cellulitic changes or streaking, although the left lower extremity appears more swollen than the right. Laboratory Data: Reveals a white blood cell count of 5.8, hemoglobin 7.9, hematocrit 23.8, his plate let count was 192. His sodium was 135, potassium 4.4, chloride 98, carbon dioxide 32, BUN 27, creati nine 4.5, his glucose is 116. Total bilirubin 1.1, AST 14, ALT less than 6, alkaline phosphatase 146 . He had some imaging performed, which included a foot x-ray performed today, officially read as lef t foot three-view x-ray shows heavy vascular atherosclerotic calcification noted. No soft tissue gas . Moderate soft tissue swelling is seen about the foot. Small calcaneal spur is present. No radiog raphic evidence of osteomyelitis identified. He additionally had an extremity venous study on 11/07, which was officially read as no sonographic evidence of left or right lower extremity DVT. Assessment And Plan: This is a 64-year-old male, who comes in with cellulitis and eschar and signifi cant atherosclerotic changes to the lower extremities with dark eschar on the left foot as described. 1.Place Xeroform and Bactroban ointment about the wound and wrap, elevate the wound, and serial exam s. 2.Continue antibiotic coverage. 3.Continue medical management. 4.The patient would likely benefit from an arterial endovascular examination to see if flow can be i mproved to this lower extremity and as such give significant improvement in his healing. As such, I recommend Endovascular consultation as soon as possible. The patient does not require surgical debri anne this time; however, we will re-evaluate in the a.m. to see if any change should the wound occu rs or this can be treated as an outpatient. I have explained the risks, benefits, and alternatives o f the above stated plan. The patient agrees to proceed as indicated. Thank you for this interesting consult. CESIA/DHRUV Voice ID: [id number] Report ID: [id number]
[2019-11-12] MEDS: DOCUSATE NA 100 MG CAP PO SCH (21:36)
[2019-11-13] MEDS: PIPER/TAZO/NS 2.25gm 2.25 GM/50 ML BAG IVPB SCH ×4 (01:05→17:43)
[2019-11-13] MEDS: MUPIROCIN 2% OINT 22GM TUBE TOP SCH ×3 (01:06→21:23)
[2019-11-13] MEDS ORDERED: NA CHLORIDE 0.9% 250 ML ONE (01:28)
[2019-11-13 06:18] LABS: Basophils % 1.3 % (0-1.3); Hematocrit 24.4 % (39.6-49.0); Lymphocytes % 14.9 % (15.3-44.8); MPV 8.8 fL (7.6-11.3); RBC Red Blood Cell Count 2.56 M/uL (4.33-5.43)
[2019-11-13 06:30] LABS: AST/SGOT 13 U/L (15-37); Albumin 2.3 g/dL (3.4-5.0); Alkaline Phosphatase 134 U/L (45-117); BUN Blood Urea Nitrogen 44 mg/dL (7-18); Bicarbonate 26 mmol/L (21-32); Bilirubin Total 1.3 mg/dL (0.2-1.0); Glucose Level 102 mg/dL (74-106); Potassium 4.9 mmol/L (3.5-5.1); Protein, Total 5.9 g/dL (6.4-8.2); Sodium Level 131 mmol/L (136-145)
[2019-11-13 06:32] LABS: ALT/SGPT < 6 U/L (12-78)
[2019-11-13] MEDS: INSULIN -REGULAR HUMAN 50 UNIT/0.5 ML ML SQ SCH ×4 (07:30→21:00)
[2019-11-13] MEDS: HYDROCODONE/APAP 7.5/325 MG TAB PO PRN ×3 (07:31→21:22)
--- NOTE | 2019-11-13 09:43 | P.PN ---
Subjective Date of Service: 11/12/19 THE PATIENT WAS SEEN BY GENERAL SURGERY. PATIENT WILL NEED DEBRIDEMENT IN THE MORNING. X-RAYS ARE PENDING. CONTINUE WITH IV ANTIBIOTIC THERAPY. ALSO CONTINUE WITH PHYSICAL THERAPY. PATIENT IS VERY WEAK AND WITH HIS NEUROPATHY HE HAS A HARD TIME AMBULATING. NO NEED CONTINUED INPATIENT FOR ASSISTED FACILITY PLACEMENT. Review of Systems 10-point ROS is otherwise unremarkable Physical Examination - Vital Signs Temperature: 98.3 F Blood Pressure: 188/78 Pulse: 64 Respirations: 18 Pulse Ox (%): 97 - Physical Exam General: Alert, In no apparent distress, Oriented x3 Respiratory: Clear to auscultation bilaterally, Normal air movement Cardiovascular: Regular rate/rhythm, Normal S1 S2, No murmurs Gastrointestinal: Normal bowel sounds, Soft and benign, Non-distended, No tenderness Musculoskeletal: No clubbing, No swelling, No tenderness Neurological: Normal tone, Sensation intact, Cranial nerves 3-12 intact - Studies Laboratory Data (last 24 hrs) 11/13/19 05:18: Sodium 131 L, Potassium 4.9, BUN 44 H, Creatinine 6.56 H* D, Glucose 102, Total Bilirubin 1.3 H, AST 13 L, ALT < 6 L, Alkaline Phosphatase 134 H 11/13/19 05:18: WBC 6.8 D, Hgb 8.1 L, Hct 24.4 L, Plt Count 190 Medications List Reviewed: Yes Assessment & Plan - Problems (Diagnosis) (1) Status post left knee replacement Current Visit: Yes Status: Acute (2) Necrotic eschar Current Visit: Yes Status: Acute (3) Wound of left ankle Current Visit: Yes Status: Acute (4) Peripheral arterial disease Current Visit: Yes Status: Acute (5) Neuropathy Current Visit: No Status: Acute (6) COPD exacerbation Current Visit: No Status: Acute (7) CVA (cerebrovascular accident) Current Visit: No Status: Acute (8) Diabetes Current Visit: No Status: Acute (9) COPD (chronic obstructive pulmonary disease) Current Visit: No Status: Chronic (10) End stage renal disease Current Visit: No Status: Chronic (11) Hypertension Current Visit: No Status: Chronic Qualifiers: Hypertension type: essential hypertension Qualified Code(s): I10 - Essential (primary) hypertension - Plan Plan: Continue with plan of care as mentioned below 1. Surgery consultation appreciated 2. IV antibiotic therapy 3. Wound healing consultation 4. Monitor H&H as patient may need blood transfusion; currently getting iron transfusion 5. Hemodialysis per Nephrology on Monday 6. Strict blood pressure and blood sugar control; patient w/ neuropathy and needs to be monitor 7. Continue with physical therapy evaluation 8. Generalized weakness; continue with physical therapy;patient may benefit from correction as patient with wound on the same side as the left knee replacement; patient has a eschar and wound that looks necrotic. This is most likely related to severe PAD as patient was told by his clerk guide he needs a stent placed in his common femoral per his clerk guide. 9. GI and DVT prophylaxis Discharge Plan: Home Plan to discharge in: Greater than 2 days - Advance Directives Does patient have a Living Will: No Does patient have a Durable POA for Healthcare: No - Code Status/Comfort Care Code Status: Full Code Physician Review: Patient Assessed, Agree with Above Assessment and Plan Critical Care: No Time Spent Managing PTS Care (In Minutes): 35
[2019-11-13] MEDS: NIFEDIPINE XL 30 MG TABLET PO SCH (12:36)
[2019-11-13] MEDS: GABAPENTIN 100 MG CAP PO SCH ×3 (12:36→21:22)
[2019-11-13] MEDS: DOXAZOSIN 4 MG TAB PO SCH ×2 (12:37→21:00)
[2019-11-13] MEDS: FOLIC ACID 1 MG TABLET PO SCH (12:37)
[2019-11-13] MEDS: BUMETANIDE 1 MG TABLET PO SCH (12:37)
[2019-11-13] MEDS: HYDRALAZINE HCL 25 MG TABLET PO SCH ×4 (12:37→21:23)
[2019-11-13] MEDS: TIZANIDINE 4 MG TABLET PO SCH ×2 (12:37→21:23)
[2019-11-13] MEDS: cloNIDine HCL 0.1 MG TAB PO SCH ×2 (12:38→21:23)
[2019-11-13] MEDS: ASPIRIN 81 MG CHEWABLE TABLET PO SCH (12:38)
[2019-11-13] MEDS: HEPARIN 5000 UNIT/ML 1 ML VIAL SQ SCH ×2 (12:39→21:00)
[2019-11-13] MEDS: JUVEN PACKET PO SCH ×2 (12:41→21:00)
[2019-11-13] MEDS: DOCUSATE NA 100 MG CAP PO SCH ×2 (12:48→21:22)
[2019-11-13] MEDS: carvediloL 6.25 MG TAB PO SCH ×3 (12:48→17:42)
[2019-11-13] MEDS: LIDOCAINE 4% PATCH TOP SCH (12:49)
[2019-11-13] MEDS: IRON SUCROSE 100 MG in NA CHLORIDE 0.9% 100 ML IV SCH (12:51)
--- NOTE | 2019-11-13 13:46 | P.PN ---
Subjective Date of Service: 11/13/19 Primary Care Provider: Dr. Montoya, nephrology Dr. Mera Chief Complaint: Multiple falls Subjective 64-year-old gentleman, past medical history of end-stage renal disease, on dialysis Monday, Monday, Monday at [place] hemodialysis via Lt AVF , diabetes complicated with neuropathy and nephropathy, hepatitis C pt presented for Leg pain and falls, had recent ORIF today no overnight events seen and examined during HD PT/OT discharge plan as per primary team Physical exam general: AAOX3, NAD , obese Neck; Supple, No elevated JVD hear: RRR, normal S1,2 no murmur or rub Chest: CTAB, no rlaes or wheezes Abdomen: Soft , Nt Extremities Lt leg edema, with bruising and ankle pressure ulcer, Rt leg edema ESRD on HD MWF HD today then MWF renal dose meds Anemia of chronic disease cont epogen and IV iron MBD Phos controlled HTN cont current meds hyponatremia will correct with HD recurrent falls S/p recent lt lower extremity ORIF PT/OT Physical Examination - Vital Signs Temperature: 98.3 F Blood Pressure: 189/62 Pulse: 83 Respirations: 18 Pulse Ox (%): 95 - Studies Laboratory Data (last 24 hrs) 11/13/19 05:18: Sodium 131 L, Potassium 4.9, BUN 44 H, Creatinine 6.56 H* D, Glucose 102, Total Bilirubin 1.3 H, AST 13 L, ALT < 6 L, Alkaline Phosphatase 134 H 11/13/19 05:18: WBC 6.8 D, Hgb 8.1 L, Hct 24.4 L, Plt Count 190 Medications List Reviewed: Yes Assessment And Plan Physician Review: Patient Assessed, Agree with Above Assessment and Plan
[2019-11-13] MEDS: ATORVASTATIN 10 MG TAB PO SCH (21:23)
[2019-11-14] MEDS: PIPER/TAZO/NS 2.25gm 2.25 GM/50 ML BAG IVPB SCH ×3 (01:09→17:36)
[2019-11-14 05:31] LABS: Basophils % 1.3 % (0-1.3); Hematocrit 23.6 % (39.6-49.0); Lymphocytes % 16.4 % (15.3-44.8); MPV 8.7 fL (7.6-11.3); RBC Red Blood Cell Count 2.51 M/uL (4.33-5.43)
[2019-11-14 05:41] LABS: Albumin 2.2 g/dL (3.4-5.0); Bilirubin Total 1.1 mg/dL (0.2-1.0); Potassium 5.1 mmol/L (3.5-5.1); Protein, Total 5.8 g/dL (6.4-8.2)
[2019-11-14] MEDS: INSULIN -REGULAR HUMAN 50 UNIT/0.5 ML ML SQ SCH ×4 (07:30→22:33)
[2019-11-14] MEDS ORDERED: DOXAZOSIN 2 MG TAB ONE (08:16)
[2019-11-14] MEDS: NIFEDIPINE XL 30 MG TABLET PO SCH (08:45)
[2019-11-14] MEDS: LIDOCAINE 4% PATCH TOP SCH (08:46)
[2019-11-14] MEDS: cloNIDine HCL 0.1 MG TAB PO SCH ×2 (08:47→20:48)
[2019-11-14] MEDS: ASPIRIN 81 MG CHEWABLE TABLET PO SCH (08:47)
[2019-11-14] MEDS: BUMETANIDE 1 MG TABLET PO SCH (08:47)
[2019-11-14] MEDS: MUPIROCIN 2% OINT 22GM TUBE TOP SCH ×2 (08:48→21:00)
[2019-11-14] MEDS: HYDRALAZINE HCL 25 MG TABLET PO SCH ×4 (08:48→20:49)
[2019-11-14] MEDS: carvediloL 6.25 MG TAB PO SCH ×2 (08:48→17:36)
[2019-11-14] MEDS: TIZANIDINE 4 MG TABLET PO SCH ×2 (08:49→20:49)
[2019-11-14] MEDS: GABAPENTIN 100 MG CAP PO SCH ×3 (08:49→20:47)
[2019-11-14] MEDS: DOXAZOSIN 4 MG TAB PO SCH ×2 (08:50→20:49)
[2019-11-14] MEDS: HEPARIN 5000 UNIT/ML 1 ML VIAL SQ SCH ×3 (08:50→21:00)
[2019-11-14] MEDS: HYDROCODONE/APAP 7.5/325 MG TAB PO PRN ×2 (08:53→14:59)
[2019-11-14] MEDS: IRON SUCROSE 100 MG in NA CHLORIDE 0.9% 100 ML IV SCH (10:59)
--- NOTE | 2019-11-14 11:07 | PN ---
Date of Progress Note: 11/14/2019 Subjective: The patient was admitted with fall. The patient had a laceration and ulcer on his left ankle. Physical Examination: Vital Signs: Blood pressure 171/79, pulse of 62. Chest: Clear to auscultation. Heart: S1, S2. Systolic murmur. Abdomen: Soft, nontender. Extremities: No edema. Stitch on the left knee and ulcer, grade 1 with good granulation on the left ankle medial aspect. Neurologic: Alert and oriented x3. Nonfocal. Laboratory Data: WBC 6.3, H and H 7.9/23.6, platelets 155. Sodium 135, potassium 5.1, bicarb 30, BU N 37, creatinine 4.9, calcium of 8. Current Medications: The patient on its include; 1.Aspirin. 2.Zosyn 2.25 every 8. 3.Zanaflex. 4.IV iron. 5.Epogen. 6.Atorvastatin. 7.Carvedilol 6.25. 8.Clonidine 0.2 b.i.d. 9.Cardura 4 mg b.i.d. 10.Hydralazine 100 q.i.d. 11.Nifedipine 30 daily. 12.Gabapentin. 13.Folic acid. 14.Insulin. Assessment And Plan: 1.End-stage renal disease. Normal volume. I am going to continue the patient on dialysis Monday, W , Monday. The patient is going to be due for dialysis tomorrow. 2.Secondary hyperparathyroidism. Continue current binder regimen. 3.Anemia of chronic kidney disease. Continue DEXTER. 4.Fall. Follow up with primary. 5.Ulcer on the leg. Continue current wound care. 6.Hyperkalemia. The patient is going to be dialyzed on low-potassium bath. 7.Renal artery stenosis with hypertension, not controlled. We will increase nifedipine to 60. The patient had workup as outpatient. Could not angioplasty the renal artery. We will follow up with Yuli drake as outpatient. 8.Recurrent fall. Continue PT/OT. YOUNG/DHRUV Voice ID: [id number] Report ID: [id number]
[2019-11-14] MEDS ORDERED: NA CHLORIDE 0.9% 500 ML ONE (11:23)
[2019-11-14] MEDS ORDERED: BUPIVACAINE 0.25% PF 10 ML VIAL ONE (12:32)
[2019-11-14] MEDS ORDERED: FENTANYL CITR 100 MCG/2 ML ONE (12:33)
[2019-11-14] MEDS ORDERED: propofoL 200 MG/20 ML VIAL IV ONE (12:33)
[2019-11-14] MEDS ORDERED: LIDOCAINE 1% MPF 5 ML VIAL ONE (12:34)
[2019-11-14] MEDS: BUPIVACA 0.25%/EPI 0.0005%/PF 30 ML VIAL ONE ×2 (12:57→12:58)
--- NOTE | 2019-11-14 13:04 | P.OP ---
Preoperative diagnosis: LEFT Medial Ankle Necrotic Wound Postoperative diagnosis: LEFT Medial Ankle Necrotic Wound Primary procedure: Excisional Debridement of LEFT Medial Ankle Necrotic Wound Anesthesia: GETA + Local Estimated blood loss: <10cc Specimen: Debridement tissue Findings: 7cm round wound Complications: None Transferred to: Recovery Room Condition: Good
[2019-11-14] MEDS ORDERED: dexAMETHasone 10 MG/ML VIAL ONE (13:05)
[2019-11-14] MEDS ORDERED: ONDANSETRON 4 MG/2 ML VIAL ONE ×2 (13:14→13:55)
--- NOTE | 2019-11-14 13:37 | OP ---
Date of Procedure: 11/14/2019 Surgeon: Kenji Clarke MD, Preoperative Diagnosis: Left medial ankle necrotic wound. Postoperative Diagnosis: Left medial ankle necrotic wound. Procedure Performed: Incisional debridement of left medial ankle necrotic wound. Anesthesia: General endotracheal plus local with 0.25% Marcaine. Estimated Blood Loss: Less than 10 mL. Specimen: Debridement tissue. Findings: A 7 cm round wound, left medial ankle. Complications: None. Transferred to the recovery room in good condition. Procedure In Detail: After informed was obtained, the patient was brought to the operating room, pre pped and draped in the usual sterile fashion. After adequate anesthesia was achieved, a 15 blade was used to dissect down through subcutaneous tissues in a circumferential area of approximately 7 cm ro und around the medial aspect of the left ankle where a necrotic wound was appreciated. This extended to the full layer of the dermis down to subcutaneous fat. This whole area was unroofed and removed in its entirety and sent off for pathologic examination. The area was copiously irrigated. Hemostas is was achieved with electrocautery. The wound was then packed with Adaptic dry dressings and a ster ile dressing placed over top. The patient tolerated the procedure well without evidence of complicat ions and transparent to PACU in good condition. All counts were correct at the end of the case. CESIA/DHRUV Voice ID: [id number] Report ID: [id number]
[2019-11-14] MEDS: HYDROMORPHONE HCL 1 MG/ML INJ ONE ×2 (13:40→13:46)
[2019-11-14] MEDS: JUVEN PACKET PO SCH ×2 (14:43→23:05)
[2019-11-14] MEDS: FOLIC ACID 1 MG TABLET PO SCH (14:44)
[2019-11-14] MEDS: DOCUSATE NA 100 MG CAP PO SCH ×2 (14:44→20:48)
--- NOTE | 2019-11-14 15:14 | P.PN ---
Subjective Date of Service: 11/13/19 Patient had a necrotic wounds that needed to be debrided. However, patient had to be dialyzed. Unable to these surgical debridement today. Will schedule it for in the morning. Review of Systems 10-point ROS is otherwise unremarkable Physical Examination - Vital Signs Temperature: 97.2 F Blood Pressure: 139/45 Pulse: 54 Respirations: 18 Pulse Ox (%): 98 - Physical Exam General: Alert, In no apparent distress, Oriented x3 Respiratory: Clear to auscultation bilaterally, Normal air movement Cardiovascular: Regular rate/rhythm, Normal S1 S2, No murmurs Gastrointestinal: Normal bowel sounds, Soft and benign, Non-distended, No tenderness Musculoskeletal: No clubbing, No swelling, No tenderness Integumentary: Tenderness/swelling, Erythema, Other (Necrotic skin ulcer) Neurological: Sensation intact, Cranial nerves 3-12 intact - Studies Medications List Reviewed: Yes Assessment & Plan - Problems (Diagnosis) (1) Status post left knee replacement Current Visit: Yes Status: Acute (2) Necrotic eschar Current Visit: Yes Status: Acute (3) Wound of left ankle Current Visit: Yes Status: Acute (4) Peripheral arterial disease Current Visit: Yes Status: Acute (5) Neuropathy Current Visit: No Status: Acute (6) COPD exacerbation Current Visit: No Status: Acute (7) CVA (cerebrovascular accident) Current Visit: No Status: Acute (8) Diabetes Current Visit: No Status: Acute (9) COPD (chronic obstructive pulmonary disease) Current Visit: No Status: Chronic (10) End stage renal disease Current Visit: No Status: Chronic (11) Hypertension Current Visit: No Status: Chronic Qualifiers: Hypertension type: essential hypertension Qualified Code(s): I10 - Essential (primary) hypertension - Plan Plan: Continue with plan of care as mentioned below 1. Surgery consultation appreciated-surgery in the morning 2. IV antibiotic therapy; continuing therapy at this time 3. Wound healing consultation appreciated 4. Monitor H&H; hemoglobin remaining stable 5. Hemodialysis per Nephrology on Monday 6. Strict blood pressure and blood sugar control; patient w/ neuropathy and needs to be monitor 7. Continue with physical therapy 8. Generalized weakness; awaiting assisted facility placement 9. GI and DVT prophylaxis Discharge Plan: Home Plan to discharge in: Greater than 2 days - Advance Directives Does patient have a Living Will: No Does patient have a Durable POA for Healthcare: No - Code Status/Comfort Care Code Status: Full Code Physician Review: Patient Assessed, Agree with Above Assessment and Plan Critical Care: No Time Spent Managing PTS Care (In Minutes): 35
--- NOTE | 2019-11-14 15:23 | P.PN ---
Subjective Date of Service: 11/14/19 The patient taken to the operating room today. The patient had debridement of the necrotic wound. Continue with wound care and awaiting placement. Review of Systems 10-point ROS is otherwise unremarkable Physical Examination - Vital Signs Temperature: 97.2 F Blood Pressure: 139/45 Pulse: 54 Respirations: 18 Pulse Ox (%): 98 - Physical Exam General: Alert, In no apparent distress, Oriented x3 Respiratory: Clear to auscultation bilaterally, Normal air movement Cardiovascular: Regular rate/rhythm, Normal S1 S2, No murmurs Gastrointestinal: Normal bowel sounds, Soft and benign, Non-distended, No t enderness, No rebound, No guarding Musculoskeletal: No clubbing, No swelling Integumentary: Tenderness/swelling, Erythema, Warmth, Other (wound on left medial malleolus) - Studies Medications List Reviewed: Yes Assessment & Plan - Problems (Diagnosis) (1) Status post left knee replacement Current Visit: Yes Status: Acute (2) Necrotic eschar Current Visit: Yes Status: Acute (3) Wound of left ankle Current Visit: Yes Status: Acute (4) Peripheral arterial disease Current Visit: Yes Status: Acute (5) Neuropathy Current Visit: No Status: Acute (6) COPD exacerbation Current Visit: No Status: Acute (7) CVA (cerebrovascular accident) Current Visit: No Status: Acute (8) Diabetes Current Visit: No Status: Acute (9) COPD (chronic obstructive pulmonary disease) Current Visit: No Status: Chronic (10) End stage renal disease Current Visit: No Status: Chronic (11) Hypertension Current Visit: No Status: Chronic Qualifiers: Hypertension type: essential hypertension Qualified Code(s): I10 - Essential (primary) hypertension - Plan Plan: Continue with plan of care as mentioned below 1. Status post surgery. Patient clinically improving somewhat. Still very weak and physical therapy recommended halfway facility placement as well. 2. IV antibiotic therapy; continuing therapy at this time 3. Wound healing consultation appreciated 4. Monitor H&H; hemoglobin remaining stable 5. Hemodialysis per Nephrology on Monday 6. Strict blood pressure and blood sugar control; patient w/ neuropathy and needs to be monitor 7. Continue with physical therapy 8. Generalized weakness; awaiting halfway facility placement 9. GI and DVT prophylaxis - Advance Directives Does patient have a Living Will: No Does patient have a Durable POA for Healthcare: No - Code Status/Comfort Care Code Status: Full Code Physician Review: Patient Assessed, Agree with Above Assessment and Plan
[2019-11-14] MEDS: MORPHINE 2 MG/ML SYR IV PRN (19:56)
[2019-11-14] MEDS: ATORVASTATIN 10 MG TAB PO SCH (20:47)
[2019-11-14] MEDS: HYDROCODONE/APAP 10/325 TAB PO PRN (20:48)
[2019-11-15] MEDS: MORPHINE 2 MG/ML SYR IV PRN ×2 (01:29→08:13)
[2019-11-15] MEDS: PIPER/TAZO/NS 2.25gm 2.25 GM/50 ML BAG IVPB SCH ×2 (01:29→08:12)
[2019-11-15] MEDS: HYDROCODONE/APAP 10/325 TAB PO PRN ×2 (02:27→09:20)
[2019-11-15 06:05] LABS: Absolute Lymphocytes (CBC) 0.9 K/uL (0.7-4.9); Basophils % 0.2 % (0-1.3); Hematocrit 21.3 % (39.6-49.0); Lymphocytes % 17.5 % (15.3-44.8); MPV 8.7 fL (7.6-11.3)
[2019-11-15 06:13] LABS: Potassium 5.4 mmol/L (3.5-5.1)
[2019-11-15 06:22] VITALS: BMI 28.0
[2019-11-15] MEDS: INSULIN -REGULAR HUMAN 50 UNIT/0.5 ML ML SQ SCH ×2 (07:30→11:30)
[2019-11-15] MEDS: carvediloL 6.25 MG TAB PO SCH (08:00)
[2019-11-15] MEDS: FOLIC ACID 1 MG TABLET PO SCH (08:11)
[2019-11-15] MEDS: DOCUSATE NA 100 MG CAP PO SCH (08:11)
[2019-11-15] MEDS: GABAPENTIN 100 MG CAP PO SCH ×2 (08:11→14:52)
[2019-11-15] MEDS: ASPIRIN 81 MG CHEWABLE TABLET PO SCH (08:12)
[2019-11-15] MEDS: MUPIROCIN 2% OINT 22GM TUBE TOP SCH (08:12)
[2019-11-15] MEDS: JUVEN PACKET PO SCH (08:12)
[2019-11-15] MEDS: TIZANIDINE 4 MG TABLET PO SCH (08:26)
[2019-11-15] MEDS: LIDOCAINE 4% PATCH TOP SCH (08:27)
[2019-11-15] MEDS: IRON SUCROSE 100 MG in NA CHLORIDE 0.9% 100 ML IV SCH (08:27)
--- NOTE | 2019-11-15 08:29 | P.PN ---
Subjective Date of Service: 11/15/19 Primary Care Provider: Dr. Montoya, nephrology Dr. Mera Chief Complaint: Multiple falls Subjective: Improving (minimal skin bleeding with dressing changes) Physical Examination - Vital Signs Temperature: 97.8 F Blood Pressure: 191/77 Pulse: 62 Respirations: 17 Pulse Ox (%): 96 - Physical Exam General: Alert, In no apparent distress, Cooperative HEENT: Mucous membr. moist/pink Integumentary: Other (wound is clean and dry, minimal skin level bleeding with dressing change, easily controlled wtih pressure) - Studies Medications List Reviewed: Yes Assessment And Plan - Current Problems (Diagnosis) (1) Wound of left ankle Current Visit: Yes Status: Acute - Plan - daily wound care with damp to dry dressings,santyl saline - wrap and elevate Physician Review: Patient Assessed, Agree with Above Assessment and Plan Physician Review Additional Text: Generalized weakness/Asthenia - due to post op status and muscle weakness Recurrent falls s/p Recent left distal femoral fracture ORIF Missed HD sessions End-stage renal disease on hemodialysis Diabetes mellitus type 2 Hypertension Hyperlipidemia Anemia of chronic disease Chronic pain syndrome Plan Generalized weakness, multiple falls, high fall risk: with progressive debility post surgery in with chronic back pain awaiting PT and OT evaluation Patienty requesting for SNF or acute rehab , follow case mgt and social work Continue pain medication with p.r.n. hydroxycodone-APAP while inpatient Patient follows at pain clinic in the outpatient c/w Heparin sq for DVT prop Status post surgical intervention left distal femur fracture: c/w pain meds prn End-stage renal disease on hemodialysis: s/p missed HD , restarted on MWF -follow with renal team Diabetes mellitus type 2: A.c. HS Accu-Cheks, sliding scale insulin therapy. Hypertension: uncontrolled , adjust Cardura to 4 mg bid , c/w clonidine /hydralazine/coreg Hyperlipidemia: Obtain and continue patient's home medications. Anemia of chronic disease: still low at 8.1 but stable h/h , c/w Epogen Discharge Plan: Home
[2019-11-15] MEDS ORDERED: NIFEDIPINE XL 60 MG TABLET PO SCH (09:00)
[2019-11-15] MEDS: DOXAZOSIN 4 MG TAB PO SCH (09:00)
[2019-11-15] MEDS: HEPARIN 5000 UNIT/ML 1 ML VIAL SQ SCH (09:00)
[2019-11-15] MEDS ORDERED: EPOETIN ALFA 10,000 UNIT/ML VIAL IV SCH (09:15)
[2019-11-15 09:43] VITALS: O2SAT 96
[2019-11-15] MEDS: HYDRALAZINE HCL 25 MG TABLET PO SCH ×3 (11:59→15:22)
[2019-11-15] MEDS: cloNIDine HCL 0.1 MG TAB PO SCH (12:00)
[2019-11-15] MEDS: BUMETANIDE 1 MG TABLET PO SCH (12:00)
[2019-11-15] MEDS ORDERED: DOXAZOSIN 2 MG TAB ONE (12:06)
--- NOTE | 2019-11-15 12:33 | P.PN ---
Subjective Date of Service: 11/15/19 Primary Care Provider: Dr. Montoya, nephrology Dr. Mera Chief Complaint: Multiple falls Subjective 64-year-old gentleman, past medical history of end-stage renal disease, on dialysis Monday, Monday, Monday at [place] hemodialysis via Lt AVF , diabetes complicated with neuropathy and nephropathy, hepatitis C pt presented for Leg pain and falls, had recent ORIF today no overnight events seen and examined during HD refusing rehab placement , stated that he will be missing his pain management and [facility] appointment , I counseled pt about risk of falls if gping home discharge plan as per primary team Physical exam general: AAOX3, NAD , obese Neck; Supple, No elevated JVD hear: RRR, normal S1,2 no murmur or rub Chest: CTAB, no rlaes or wheezes Abdomen: Soft , Nt Extremities Lt leg edema, with bruising and ankle pressure ulcer, Rt leg edema ESRD on HD MWF HD MWF renal dose meds Anemia of chronic disease cont epogen and IV iron MBD Phos controlled HTN cont current meds hyponatremia will correct with HD recurrent falls S/p recent lt lower extremity ORIF PT/OT Physical Examination - Vital Signs Temperature: 97.8 F Blood Pressure: 193/78 Pulse: 67 Respirations: 17 Pulse Ox (%): 96 - Studies Medications List Reviewed: Yes Assessment And Plan Physician Review: Patient Assessed, Agree with Above Assessment and Plan
[2019-11-15 15:44] LABS: Hematocrit 25.2 % (39.6-49.0)
[2019-11-21 15:49] VITALS: BP 139/45; TEMP 97.2
--- NOTE | 2019-11-21 15:51 | P.DS ---
Discharge Date: 11/15/19 Primary Care Provider: Dr. Montoya, nephrology Dr. Mera Disposition: DC HOME/HOME HEALTH CARE Discharge Condition: GOOD Reason for Admission: Multiple falls Consultations: Nephrology General surgery - Problems (1) Status post left knee replacement Status: Acute (2) Necrotic eschar Status: Acute (3) Wound of left ankle Status: Acute (4) Peripheral arterial disease Status: Acute (5) Neuropathy Status: Acute (6) COPD exacerbation Status: Acute (7) CVA (cerebrovascular accident) Status: Acute (8) Diabetes Status: Acute (9) COPD (chronic obstructive pulmonary disease) Status: Chronic (10) End stage renal disease Status: Chronic (11) Hypertension Status: Chronic Qualifiers: Hypertension type: essential hypertension Qualified Code(s): I10 - Essential (primary) hypertension Brief History of Present Illness: Patient is a 64-year-old male presents emergency department with chief complaint of left leg pain and tailbone pain after falling today. Approximately 2 weeks ago patient was transferred to [facility] after having a fall which caused a distal left femur fracture. Patient was admitted at [facility] and had surgical fixation of distal left femur fracture. Patient stayed in the hospital approximately 3 days and worked with physical therapy at that time. Patient was discharged and supposed to have home health and physical therapy at home but he was discharged last week and and has yet to have somebody come out his house to provide him with assistance. Patient reports that he has also a Monday dialysis patient he has been unable to arrange for transportation to get to dialysis. Patient was evaluated in the emergency department and ED provider wishes to admit patient for observation due to high risk of repeated falls and inability to take care of himself and gain transport to dialysis. Hospital Course: Clinically, the patient has done well. Patient had debridement is clinically doing okay for discharge with followup with home health Wound Care nurse as well as general surgeon as an outpatient. Continue outpatient follow up with nephrology. At this time: Patient is stable for discharge to home per his request with continued outpatient follow up. Vital Signs/Physical Exam: Temp Pulse Resp BP Pulse Ox 97.2 F 54 18 139/45 L 98 11/21/19 15:49 11/21/19 15:49 11/21/19 15:49 11/21/19 15:49 11/21/19 15:49 General: Alert, In no apparent distress, Oriented x3 Laboratory Data at Discharge: WBC 5.0 K/uL (4.3-10.9) D 11/15/19 05:31 Hgb 8.4 g/dL (13.6-17.9) L 11/15/19 15:25 Hct 25.2 % (39.6-49.0) L D 11/15/19 15:25 Plt Count 152 K/uL (152-406) 11/15/19 05:31 PT 12.4 SECONDS (9.5-12.5) 11/08/19 20:37 INR 1.05 11/08/19 20:37 Sodium 134 mmol/L (136-145) L 11/15/19 05:31 Potassium 5.4 mmol/L (3.5-5.1) H 11/15/19 05:31 BUN 62 mg/dL (7-18) H D 11/15/19 05:31 Creatinine 6.46 mg/dL (0.55-1.3) H* D 11/15/19 05:31 Glucose 205 mg/dL (74-106) H 11/15/19 05:31 Phosphorus 3.6 mg/dL (2.5-4.9) 11/10/19 07:20 Total Bilirubin 1.1 mg/dL (0.2-1.0) H 11/14/19 04:45 AST 14 U/L (15-37) L 11/14/19 04:45 ALT 7 U/L (12-78) L 11/14/19 04:45 Alkaline Phosphatase 184 U/L (45-117) H 11/14/19 04:45 Home Medications: Aspirin Chewable [Aspirin Chewable*] 81 mg PO DAILY 11/09/19 Bumetanide [Bumex*] 2 mg PO DAILY 11/09/19 Clonidine HCl [Catapres*] 0.2 mg PO BID 11/09/19 Doxazosin Mesylate [Cardura] 2 mg PO DAILY 11/09/19 Folic Acid/Vit B Complex and C [Dialyvite 800 Chewable Wafer] 800 mcg PO DAILY 11/09/19 Gabapentin [Neurontin*] 100 mg PO TID 11/09/19 Hydralazine [Apresoline*] 100 mg PO QID 11/09/19 Hydrocodone Bit/Acetaminophen [Hydrocodon-Acetaminophn 10-325] 1 tab PO QIDP PRN 11/09/19 Pravastatin Sodium [Pravachol] 40 mg PO DAILY 11/09/19 Tizanidine HCl [Zanaflex] 4 mg PO BID 11/09/19 carvediloL [Coreg*] 6.25 mg PO BID 11/09/19 Amoxicillin/Potassium Clav [Augmentin 500-125 Tablet] 1 each PO BID #14 tablet 11/15/19 Jarrett [Jarrett*] 1 pkt PO BID #60 powd.pack 11/15/19 New Medications: Amoxicillin/Potassium Clav [Augmentin 500-125 Tablet] 1 each PO BID #14 tablet Jarrett [Jarrett*] 1 pkt PO BID #60 powd.pack Patient Discharge Instructions: -OK TO DC IV AND DC HOME; PATIENT IS A FALL RISK AND WAS ADVISED THAT HE WOULD BE BEST SUITED TO GO TO A LONGTERM FACILITY. HOWEVER, HE HAS REFUSED. -FOLLOW-UP WITH PRIMARY CARE PROVIDER IN 1- 2 WEEKS. -FOLLOW-UP WITH NEPHROLOGY IN 1-2 WEEKS. -RETURN TO THE ER IF SYMPTOMS WORSEN. -CALL or TEXT DR. HAND AT [phone] IF ANY QUESTIONS REGARDING HOSPITAL STAY. -PLEASE CALL THE FLOOR AT [phone] IF ANY MEDICATION OR NURSING QUESTIONS. -PLEASE HAVE HOME HEALTH PROVIDE WOUND CARE AT DISCHARGE Diet: Renal Activity: Fall precautions Followup: Skyler Rand MD [ACTIVE - CAN ADMIT] - Time spent managing pt's care (in minutes): 35
== END 2019-11-15 17:17 | disposition home health service (06) | DRG 264 ==
LOC: ER 19:29 → ERHOLD 23:57 → 2ND 11-09 00:40 → OBSVTOIN 11-13 08:59
PROVIDERS: ADMIT Internal Medicine; ATTEND Hospitalist
PROC: 5A1D70Z Performance of Urinary Filtration, Intermittent, Less than 6 Hours Per Day (ICD-10-PCS; 2019-11-11)
PROC: 0JBR0ZZ Excision of Left Foot Subcutaneous Tissue and Fascia, Open Approach (ICD-10-PCS; principal; 2019-11-14 14:15)
PROC: 30233N1 Transfusion of Nonautologous Red Blood Cells into Peripheral Vein, Percutaneous Approach (ICD-10-PCS; 2019-11-15)
DX: E11.52 Type 2 diabetes mellitus with diabetic peripheral angiopathy with gangrene (principal); N18.6 End stage renal disease; I12.0 Hypertensive chronic kidney disease with stage 5 chronic kidney disease or end stage renal disease; E44.1 Mild protein-calorie malnutrition; N17.9 Acute kidney failure, unspecified; E87.1 Hypo-osmolality and hyponatremia; J44.1 Chronic obstructive pulmonary disease with (acute) exacerbation; L03.116 Cellulitis of left lower limb; I70.262 Atherosclerosis of native arteries of extremities with gangrene, left leg; L97.929 Non-pressure chronic ulcer of unspecified part of left lower leg with unspecified severity; Z99.2 Dependence on renal dialysis; Z91.15 Patient's noncompliance with renal dialysis; Z79.899 Other long term (current) drug therapy; Z79.52 Long term (current) use of systemic steroids; E78.5 Hyperlipidemia, unspecified; E11.22 Type 2 diabetes mellitus with diabetic chronic kidney disease; Z96.652 Presence of left artificial knee joint; K74.60 Unspecified cirrhosis of liver; Z91.81 History of falling; D63.8 Anemia in other chronic diseases classified elsewhere; W18.30XA Fall on same level, unspecified, initial encounter; E11.621 Type 2 diabetes mellitus with foot ulcer; L97.529 Non-pressure chronic ulcer of other part of left foot with unspecified severity; Z68.28 Body mass index [BMI] 28.0-28.9, adult; R53.1 Weakness; G89.4 Chronic pain syndrome; M54.9 Dorsalgia, unspecified; Z79.82 Long term (current) use of aspirin; E87.5 Hyperkalemia; E87.70 Fluid overload, unspecified; N25.0 Renal osteodystrophy; D63.1 Anemia in chronic kidney disease; I70.1 Atherosclerosis of renal artery; S72.402D Unspecified fracture of lower end of left femur, subsequent encounter for closed fracture with routine healing; E11.40 Type 2 diabetes mellitus with diabetic neuropathy, unspecified; Z20.828 Contact with and (suspected) exposure to other viral communicable diseases
CPT/HCPCS: 36415; 71045; 72100; 72170; 80048; 80053; 82607; 82728; 82746; 82947; 83540; 83970; 84100; 84466; 85014; 85018; 85025; 85610; 86850; 86900; 86901; 88304; 90935; 93005; 93970; 96374; 97110; 97116; 97161; 97530; 99285; G0378; J0360; J1100; J1170; J1644; J2270; J2405; J2704; J2916; J3010; J3370; J7040; J7050; P9016; Q5105; U0002

== ENCOUNTER 2020-02-24 23:44 | Observation (INO) | payer OTHER ==
--- OUTSIDE RECORDS SUMMARY | 2020-02-24 23:48 | XMS REPORT | Clinical Summary ---
:1955 Author Organization [facility] Address [address] [place] [address] Care Team Providers Name Role Phone Asked, Pcp Primary Care Provider Unavailable Allergies No Known Active Allergies Medications Medication Sig Dispensed Refills Start Date End Date Status HYDROcodone-acetam Take 1 tablet 0 Active inophen (NORCO) by mouth every 10-325 mg per 6 (six) hours tabletIndications: as needed for acute pain moderate pain .acute pain. ferric citrate Take by mouth. 0 Active (AURYXIA ORAL) doxazosin Take 2 mg by 0 Active (CARDURA) 2 MG mouth nightly. tablet carvediloL (COREG) Take 6.25 mg by 0 Active 6.25 MG tablet mouth 2 (two) times a day with meals. cinacalcet Take 30 mg by 0 Activ e (SENSIPAR) 30 MG mouth daily. tablet clonIDINE HCl Take 0.2 mg by 0 A ctive (CATAPRES) 0.2 MG mouth 2 (two) tablet times a day. gabapentin Take 100 mg by 0 Acti ve (NEURONTIN) 100 mg mouth 3 (three) capsule times a day. calcium acetate Take by mouth. 0 Active (PHOSLO ORAL) pravastatin Take 40 mg by 0 Acti ve (PRAVACHOL) 40 mg mouth daily. tablet folic acid/vit B Take by mouth. 0 Active complex and C (CORAL-HAMIDA ORAL) tiZANidine Take 4 mg by 0 Active (ZANAFLEX) 4 MG mouth every 8 tablet (eight) hours as needed for muscle spasms. calcium carbonate Take by mouth. 0 Active (TUMS ORAL) zolpidem (AMBIEN) Take 10 mg by 0 Active 10 mg tablet mouth nightly as needed for sleep. tiZANidine Take 2 mg by 0 12/05/2019 Disco ntinued (ZANAFLEX) 2 MG mouth every 8 tablet (eight) hours as needed for muscle spasms. tamsulosin Take 0.4 mg by 0 12/05/2019 Dis continued (FLOMAX) 0.4 mg mouth daily. capsule finasteride Take 5 mg by 0 12/05/2019 Disc ontinued (PROSCAR) 5 mg mouth daily. tablet aspirin 81 mg Chew 1 tablet 30 tablet 0 12/11/2019 01/10/2020 chewable tablet (81 mg total) daily for 30 days. clopidogreL Take 1 tablet 30 tablet 0 12/11/2019 12/10/2019 Di scontinued (PLAVIX) 75 mg (75 mg total) tablet by mouth daily for 30 days. clopidogreL Take 1 tablet 30 tablet 0 12/11/2019 01/10/2020 Ex pired (PLAVIX) 75 mg (75 mg total) tablet by mouth daily for 30 days. Active Problems Problem Noted Date PVD (peripheral vascular disease) 12/10/2019 Bilateral atherosclerotic renal artery stenosis 2019 Encounters Date Type Specialty Care Team Description 12/09/2019 Anesthesia Event General Surgery Sameer Donohue MD Cheema, Ivelisse, MANAGER SIX SIGMA 12/09/2019 Surgery General Surgery Shayna, AORTOGRAM, L EFT RENAL MD Martita ARTERY STENT PL ACEMENT AND BALLOON ANGIOPLASTY. 12/09/2019 - Hospital Encounter General Internal Lamberto Corral 12/10/2019 Medicine MD Martita atherosclerotic renal Kayode, Sallinda artery stenosis (HCC) MD Chiara (Primary Dx) 12/05/2019 Hospital Encounter Radiology Shayna, Pre-op te sting MD Martita 12/05/2019 Pre-Admission Pre-Admission Shayna, Pre-op testin g (Primary Testing Testing MD Martita Dx) 12/05/2019 Travel 11/29/2019 Travel 11/05/2019 Travel 10/25/2019 Travel 10/21/2019 Travel 10/17/2019 Transcribe Orders Access Shayna, Hypertensi ve chronic kidney disease with stage 1 through stage 4 chronic kidney disease, or unspecified chronic kidney disease (Primary Dx); MD Martita End stage renal disease (HCC) after 02/23/2019 Surgical History Surgery Date Site/Laterality Comments CREATION, AV FISTULA Left BACK SURGERY ANKLE SURGERY Left JOINT REPLACEMENT Left TKA LEFT FEMUR SURGERY Left SPINAL CORD STIMULATOR IMPLANT COLONOSCOPY AORTOGRAPHY, POSSIBLE 12/09/2019 Left Procedure: AORTOGRAM, LEFT ANGIOPLASTY RENAL ARTERY SHAYNA NT PLACEMENT AND BALLOON DAKSHA OPLASTY.; Surgeon: Martita Head MD; Location: [facility] Main OR; Service: Cardio thoracic; Laterality: Left ; Medical devices from this surgery are in t he Implants section. Medical History Medical History Date Comments ESRD (end stage renal disease) ([facility]) Prediabetes Hypercholesteremia Hypertension Dialysis patient ([facility]) MWF FISTULA L-ARM Limb alert care status LEFT ARM PER PT Need for immunization follow-up NEED NEW FLU SHOT PER PT Exercise tolerance finding NO FORMAL EXE RCISE WALKS AROUND THE HOUSE DENIES CP OR SOB DOES PT FOR BROKEN FEMUR PER PT COPD (chronic obstructive pulmonary disease) (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 made a gonzalez PM CDT Pulse 69 12/10/2019 2:40 PM CDT Temperature 37.1 C (98.8 F) 12/10/2019 12:15 PM CDT Respiratory Rate 16 12/10/2019 12:15 PM CDT Oxygen Saturation 96% 12/10/2019 12:15 PM CDT Inhaled Oxygen - - Concentration Weight 72.8 kg (160 lb 9.6 12/10/2019 6:00 oz) AM CDT Height 167.6 cm (5' 6") 12/09/2019 4:00 PM CDT Body Mass Index 25.92 12/09/2019 4:00 PM CDT Plan of Treatment Health Maintenance Due Date Last Done Comments DIABETES: RETINAL EYE EXAM 08/29/1967 DIABETIC FOOT EXAM 08/29/1967 COVID-19 VACCINE (#1) 1973 COLONOSCOPY SCREENING 08/29/2007 SHINGLES VACCINES (#1) 08/29/2007 INFLUENZA VACCINE 10/05/2019 Implants Implanted Type Area Manufactured Buildings Repairer Device Shelf Model / Identifier Expiration Serial / Date Lot Stent Renal Express Sd Prmntd Андрей 5x15mm Metal - [id number] Amy pheral or Left: BSC PERIPHERAL 01/13/2022 [id number] / Implanted: Qty: 1 on 12/09/2019 by Martita Corral MD at [facility] Biliary Artery, INTERVENTION / Stents Renal VASCULAR DRISS [id number] Device Vascular Closure Vascade 6/7fr - [id number] Surgical N/A: N/A [employer] 09/02/2021 [id number] / Implanted: Qty: 1 on 12/09/2019 at [facility] Implants; I NC / Expanders; [id number] Extenders; Surgical Wires Procedures Procedure Name Priority Date/Time Associated Comments Diagnosis ECG 12-LEAD STAT 12/10/2019 2:01 Results for this PM CDT procedure are i n the results section. TROPONIN STAT 12/10/2019 12:50 Results for this PM CDT procedure are i n the results section. ESTIMATED GFR Routine 12/10/2019 5:33 Results fo r this AM CDT procedure are i n the results section. BASIC METABOLIC PANEL Routine 12/10/2019 5:33 Re sults for this AM CDT procedure are i n the results section. HEMODIALYSIS Routine 12/09/2019 8:17 PM CDT OR FL < 1 HOUR Routine 12/09/2019 7:26 Results f or this PM CDT procedure are i n the results section. HEPATITIS B SURFACE Routine 12/09/2019 7:13 Resu lts for this ANTIBODY PM CDT procedure are i n the results section. HEPATITIS B SURFACE AB, Routine 12/09/2019 7:13 Results for this QUANTITATIVE PM CDT procedure are i n the results section. HEPATITIS B SURFACE Routine 12/09/2019 7:13 Resu lts for this ANTIGEN PM CDT procedure are i n the results section. HEMODIALYSIS Routine 12/09/2019 4:51 PM CDT HEMODIALYSIS Routine 12/09/2019 4:09 PM CDT POC GLUCOSE Routine 12/09/2019 4:02 Results for this PM CDT procedure are i n the results section. NM AN ELECTIVE Routine 12/09/2019 1:56 Results f or this SUPRAGLOTTIC AIRWAY PM CDT procedur e are in the results section. POC GLUCOSE Routine 12/09/2019 12:42 Results for this PM CDT procedure are i n the results section. POC PANEL Routine 12/09/2019 10:37 Results for this AM CDT procedure are i n the results section. ESTIMATED GFR STAT 12/09/2019 10:32 Results fo r this AM CDT procedure are i n the results section. TYPE AND SCREEN STAT 12/09/2019 10:32 Results for this AM CDT procedure are i n the results section. COMPREHENSIVE METABOLIC STAT 12/09/2019 10:32 Results for this PANEL AM CDT procedure are i n the results section. XR CHEST 2 VW Routine 12/05/2019 1:38 Pre-op testing Results for this PM CDT procedure are i n the results section. ECG PRE/POST OP Routine 12/05/2019 1:07 Pre-op testing Result s for this PM CDT procedure are i n the results section. PARTIAL THROMBOPLASTIN Routine 12/05/2019 12:45 Pre-op testing Results for this TIME (PTT) PM CDT procedure are i n the results section. PROTHROMBIN TIME WITH Routine 12/05/2019 12:45 Pre-op testing Results for this INR PM CDT procedure are i n the results section. COVID-19 QUALITATIVE Routine 12/05/2019 12:37 Pre-op testing R esults for this PCR PM CDT procedure are i n the results section. HEMOGLOBIN A1C Routine 12/05/2019 12:36 Pre-op testing Results for this PM CDT procedure are i n the results section. HC COMPLETE BLD COUNT Routine 12/05/2019 12:36 Pre-op testing Results for this W/AUTO DIFF PM CDT procedure are i n the results section. after 02/23/2019 Results ECG 12 lead (12/10/2019 2:01 PM CDT) Pathologist Sig nature Ventricular rate 70 [facility] Atrial rate 70 [facility] NM interval 144 [facility] QRSD interval 92 [facility] QT interval 450 [facility] QTC interval 486 [facility] P axis 1 47 [facility] QRS axis 1 -10 [facility] T wave axis 147 [facility] EKG impression Normal sinus rhythm-Nonspeci fic ST and T wave abnormality- Prolonged QT-Abnormal ECG-In automated comparison with ECG of 05-DEC-2019 13:07,-Nonspecific T wave abnormality, worse in Lateral leads-Electronically Signed By Ector Alatorre MD (2016) on [facility] MUSE 12/10/2019 4:17:44 PM Specimen Narrative Performed At This result has an attachment that is no t available. Performing Organization Address City/State/ZIP Code Phon e Number [facility] MUSE [address] [place] [address] Troponin (12/10/2019 12:50 PM CDT) Troponin 0.045 (H) 0.000 - 0.040 [facility] Comment: ng/mL [facility] In patients suspected of having a myocardial infarctio n, along with all other appropriate clinical measures and actions includ ing ECG and other diagnostics as appropriate, measure Ultra TnI at 0 hrs and at 3 hrs. Myocardial infarction VERY LIKELY The 0 hr TnI level is > 0.10 ng/mL Myocardial infarction LIKELY The 0 hr TnI level is > 0.04 ng/mL and 3 hr level is i ncreased or decreased by at least 0.020 ng/mL Myocardial infarction VERY UNLIKELY Both the 0 hr and 3 hr TnI levels <= 0.04 ng/mL(within normal limits) OR 0 hr is > 0.04 ng/mL and 3 hr is increased OR decreased by less than 0.020 ng/mL Specimen Blood Performing Organization Address City/State/ZIP Code Phon e Number [facility] DEPARTMENT OF PATHOLOGY [address] [facility], [place] [address] AND GENOMIC MEDICINE [facility] [address] [facility] [place] [address] HOSPITAL Estimated GFR (12/10/2019 5:33 AM CDT)Only the most recent of2 resultswithin the time period is included. Pathologist [facility] Estimated GFR 10 (A) mL/min/1.73 [facility] Comment: m2 [facility] Catergory Units Interpretation HOS PITAL G1 >=90 Normal or high G2 60-89 Mildly decreased G3a 45-59 Mildly to moderately decreas ed G3b 30-44 Moderately to severely decre ased G4 15-29 Severely decreased G5 <15 Kidney failure The eGFR was calculated using the Chronic Kidney Disea se Epidemiology Collaboration (CKD-EPI) equation. Interpretation is based on recommendations of the National Kidney Foundation-Kidney Disease Outcomes Hector lity Initiative (NKF-KDOQI) published in 2014. Specimen Performing Organization Address [facility] Phon e Number [facility] DEPARTMENT OF PATHOLOGY [address] [facility] [address] AND [facility] [id number] [place] [address] Basic metabolic panel (12/10/2019 5:33 AM CDT) Pathologist Sig nature Sodium 135 135 - 148 mEq/L [facility] Potassium 4.6 3.5 - 5.0 mEq/L [facility] Chloride 97 (L) 98 - 112 mEq/L [facility] CO2 25 24 - 31 mEq/L [facility] Anion gap 13@ANIO 7 - 15 mEq/L [facility] BUN 33 (H) 8 - 23 mg/dL [facility] Creatinine 5.39 (H) 0.70 - 1.20 mg/dL [facility] Glucose 182 (H) 65 - 99 mg/dL [facility] Calcium 9.0 8.8 - 10.2 mg/dL [facility] Specimen Blood Performing Organization Address [facility] Phon e Number [facility] DEPARTMENT OF PATHOLOGY [address] [facility] [address] AND [facility] [id number] [place] [address] HOSPITAL OR [place] < 1 Hour (12/09/2019 7:26 PM CDT) Specimen Narrative Performed At EXAMINATION: OR FL < 1 HOUR [facility] CLINICAL HISTORY: None provided. IMPRESSION: 1. Fluoroscopy was provided in the operating. I was no t present during the procedure. 2. Please refer to the operative report for findings. 3. Total Dose: 114 fluoroscopic images. 27.1 minutes of fluoroscopy time. Procedure Note Interface, Radiology Results Incoming - 12/09/2019 7:41 PM CDT EXAMINATION: OR FL < 1 HOUR CLINICAL HISTORY: None provided. IMPRESSION: 1. Fluoroscopy was provided in the opera ting. I was not present during the procedure. 2. Please refer to the operative report for findings. 3. Total Dose: 114 fluoroscopic images. 27.1 minutes of fluoroscopy time. Performing Organization Address City/State/ZIP Code Phon e Number [facility] [address] [place] [address] Hepatitis B surface Ab, quantitative (12/09/2019 7:13 PM CDT) Hepatitis B 49.10 IU/L [facility] surface Ab Comment: The anti-HBs is greater than or equal to 10 IU/L. This patient has either had an antibody response to HBV vaccination, re ceived a transfusion, or has recovered from HBV infection. This patient should be considered immune to hepatitis B. An anti-HBs result greater than or equal to 10 IU/L im plies immunity. For post-vaccination antibody testing guidel ruchi for the general public refer to MMWR February 25, 2005/Vol. 54 (No. 16);03-28, and for healthcare workers refer to MMWR Feb/Vol. 62(No. 10);-. Reference Interval: anti-HBs 9.99 IU/L or less ....... Negative 10.00 IU/L or greater .... Positive Results greater than 1,000.00 IU/L are reported as gre ater than 1,000.00 IU/L. This assay should not be used for blood donor screenin g, associated re-entry protocols, or for screening Human Cell, Tissues and Cellular and Tissue-Based Products (HCT/P) . Performed By: [facility] [address] [place] [address] [employer]x Visual Designer: Tania Raymond MD Specimen Serum Performing Organization Address City/[facility]/ZIP Code Phon e Number [facility] [address] [place] [address] [facility] [address] [place] [address] Hepatitis B surface antibody (12/09/2019 7:13 PM CDT) Pathologist Sig nature Hepatitis B surface Reactive (A) Non-reactive [facility] Specimen Performing Organization Address City/[facility]/ZIP Code Phon e Number [facility] DEPARTMENT OF PATHOLOGY AND [address] [place], [place] [address] [facility] [address] [place] [address] Hepatitis B surface antigen (12/09/2019 7:13 PM CDT) Pathologist Sig nature Hepatitis B surface Non-reactive Non-reactive [facility] Ag [facility] Specimen Blood Performing Organization Address City/[facility] Phon e Number [facility] DEPARTMENT OF PATHOLOGY [id number] [place] [address] AND [facility] [address] [place] [address] X [address] [facility] POC glucose (12/09/2019 4:02 PM CDT)Only the most recent of2 resultswithin the time period is included. Pathologist Sig nature POC glucose 128 (H) 65 - 99 mg/dL [facility] Comment: [facility] Environmental Sampling Technician Name: Rovillos Ray Device ID: [id number] Specimen Blood Performing Organization Address [facility] Phon e Number [facility] DEPARTMENT OF PATHOLOGY [address] [place] [address] AND [facility] [id number] [place] [address] X [address] [facility] Airway (12/09/2019 1:56 PM CDT) Narrative Performed At Antonieta [place] CRNA 12/09/2019 1:57 PM Airway Date/Time: 12/09/2019 1:57 PM Performed by: Antonieta [place] CRNA Authorized by: Sameer Donohue MD Location: OR Urgency: Elective Difficult Airway: No Anesthesiologist: Sameer Donohue MD Resident/HOST/AA: Antonieta [place] CRNA Performed by: resident/HOST/AA Preoxygenated with 100% O2: Yes C-spine Precautions Maintained Throughou t: Yes Mask Ventilation: Not attempted Final Airway Type: Supraglottic airway Final LMA: I-Gel LMA Size: 4 Number of Attempts at Approach: 1 POC panel (12/09/2019 10:37 AM CDT) POC sodium 134 (L) 135 - 148 [facility] mmol/L [facility] POC potassium 5.7 (H) 3.5 - 5.0 [facility] mmol/L [facility] POC glucose 121 (H) 65 - 99 mg/dL [facility] Comment: [facility] Environmental Sampling Technician Name: [facility] Device ID: [id number] POC hemoglobin 10.2 (L) 14.0 - 18.0 [facility] g/dL [facility] POC hematocrit 30 (L) 41 - 51 % [facility] Specimen Blood Performing Organization Address City/[facility] Code Phon e Number [facility] DEPARTMENT OF PATHOLOGY [address] [place] [address] [address] [place] [address] HOSPITAL Type and screen (12/09/2019 10:32 AM CDT) Pathologist Sig nature ABO grouping O [facility] Rh type POS [facility] Antibody screen (gel) NEG [facility] Specimen Blood Performing Organization Address [facility] Phon e Number [facility] DEPARTMENT OF PATHOLOGY [address] [place] [address] [address] [place] [address] [facility] Comprehensive metabolic panel (12/09/2019 10:32 AM CDT) Sodium 134 (L) 135 - 148 [facility] mEq/L [facility] Potassium 6.0 (HH) 3.5 - 5.0 [facility] Comment: mEq/L [facility] Final results called to and read back by Albin Mason o/RIGO. [facility] 12/09/2019 11:07 CBJ No hemolysis. Chloride 97 (L) 98 - 112 [facility] mEq/L [facility] CO2 22 (L) 24 - 31 mEq/L [facility] Anion gap 15@ANIO 7 - 15 mEq/L [facility] BUN 56 (H) 8 - 23 mg/dL [facility] Creatinine 8.57 (H) 0.70 - 1.20 [facility] mg/dL [facility] Glucose 130 (H) 65 - 99 mg/dL [facility] Calcium 9.0 8.8 - 10.2 [facility] mg/dL [facility] Protein 6.7 6.3 - 8.3 [facility] g/dL [facility] Albumin 3.7 3.5 - 5.0 [facility] g/dL [facility] A/G ratio 1.2 0.7 - 3.8 [facility] Alkaline phosphatase 215 (H) 40 - 129 U/L [facility] AST 25 10 - 50 U/L [facility] ALT 13 5 - 50 U/L [facility] Total bilirubin 0.8 0.2 - 1.2 [facility] mg/dL [facility] Specimen Blood Performing Organization Address City/State/ZIP Code Phon e Number [facility] DEPARTMENT OF PATHOLOGY [address] [facility] [address] AND [facility]OM[facility]IC[facility] [address] [facility] [place] [address] HOSPITAL XR Chest 2 Vw (12/05/2019 1:38 PM CDT) Specimen Narrative Performed At EXAMINATION: XR CHEST 2 VW [facility] CLINICAL HISTORY: Z01.818 Encounter for other prepro cedural examination, PRE OP COMPARISON: None. IMPRESSION: Heart and mediastinum: Cardiomediastinal silhouette is prominent. Atherosclerotic calcifications of the ao rtic arch. Lungs and pleura: There is no focal airspace disease, pleural effusion or pneumothorax. Bones: No acute abnormality. Spinal cord stimulator device seen overl giorgi the thoracic spine. [facility]-[id number] Dictated and approved by regional vice president life sales/fellow: Geovanny Malik M.D. I, Daniel Abbott, personally reviewed the images and res ident's/fellow's findings and agree with the final report. Procedure Note Interface, Radiology Results Incoming - 12/05/2019 4:59 PM CDT EXAMINATION: XR CHEST 2 VW CLINICAL HISTORY: Z01.818 Encounter for other preprocedural examination, PRE OP COMPARISON: None. IMPRESSION: Heart and mediastinum: Cardiomediastinal silhouette is prominent. Atherosclerotic calcifications of the aortic arch. Lungs and pleura: There is no focal airs pace disease, pleural effusion or pneumothorax. Bones: No acute abnormality. Spinal cord stimulator device seen overl giorgi the thoracic spine. [facility]-[id number] Dictated and approved by radiology resid ent/fellow: Joseph Malik M.D. I, Daniel Abbott, personally reviewed the images and resident's/fellow's findings and agree with the final report. Performing Organization Address [facility] Phon e Number [facility] [address] [place] [address] ECG Pre/Post Op (12/05/2019 1:07 PM CDT) Pathologist Sig nature Ventricular rate 70 [facility] Atrial rate 70 [facility] NM interval 136 [facility] QRSD interval 88 [facility] QT interval 434 [facility] QTC interval 468 [facility] P axis 1 29 [facility] QRS axis 1 -31 [facility] T wave axis 135 [facility] EKG impression Normal sinus [facility] rhythm-Possible Left atrial enlargement-Left axis deviation-Anterior infarct , age undetermined-Abnormal ECG-No previous ECGs available-Electronicall y Signed By Samuel CABALLERO, Httatyana ([id number]) on 12/06/2019 12:44:11 AM Specimen Narrative Performed At This result has an attachment that is no t available. Performing Organization Address [facility] Phon e Number [facility] MUSE [address] [place] [address] Partial thromboplastin time, activated (12/05/2019 12:45 PM CDT) PTT 31.4 23.0 - 36.0 [facility] Comment: [facility] PTT therapeutic range for unfractionated heparin is HOSPITAL 61.0-112.0 seconds which corresponds to Anti-Xa 0.3-0.7 U/ml. Specimen Blood Performing Organization Address [facility] Phon e Number [facility] DEPARTMENT OF PATHOLOGY [address] [place] [address], [place] [address] [place] [address] HOSPITAL Prothrombin time with INR (12/05/2019 12:45 PM CDT) Prothrombin time 14.5 11.5 - 14.5 [facility] sec [facility] INR 1.1 [facility] Comment: [facility] International Normalized Ratio (INR) is a therapeu [facility] monitoring tool for patients who are stable on oral anticoagulant therapy. An INR of 2.0-3.0 is suggested for deep vein thrombosis/pulmonary embolism. Specimen Blood Performing Organization Address City/[facility] Phon e Number [facility] DEPARTMENT OF PATHOLOGY [address] [place] [address], [place] [address] [place] [address] [facility] COVID-19 qualitative PCR (12/05/2019 12:37 PM CDT) Interpretation Negative results do not prec lude 2019-nCoV infection and should not be used as the sole basis for treatment or other patient management decisions. Negative results must be combined with clinical observations, patient history, and epidemiological [facility] information. [facility] COVID-19 qualitative Not-Detected Not-Detecte [facility] PCR result d [facility] COVID-19 qualitative See link below for [facility] PCR PDF Lab [facility] ReportComment: Case HOSPITAL Number: [id number] Specimen Nasopharyngeal swab Performing Organization Address City/State/ZIP Code Phon e Number [facility] DEPARTMENT OF PATHOLOGY AND [address] [place], [place] [address] [facility] [address] [place] [address] [facility] CBC with platelet and differential (12/05/2019 12:36 PM CDT) WBC 6.3 4.5 - 11.0 k/uL [facility] RBC 2.77 (L) 4.40 - 6.00 [facility] m/uL [facility] HGB 8.6 (L) 14.0 - 18.0 [facility] g/dL [facility] HCT 27.9 (L) 41.0 - 51.0 % [facility] MCV 100.7 (H) 82.0 - 100.0 fL [facility] MCH 31.0 27.0 - 34.0 pg [facility] MCHC 30.8 (L) 31.0 - 37.0 [facility] g/dL [facility] RDW - SD 56.1 (H) 37.0 - 55.0 fL [facility] MPV 10.0 6.9 - 11.0 fL [facility] Platelet count 165 150 - 400 K/uL [facility] Nucleated RBC 0.00 /100 WBC [facility] Neutrophils 59.6 39.0 - 69.0 % [facility] Lymphocytes 21.4 (L) 25.0 - 45.0 % [facility] Monocytes 8.7 0.0 - 10.0 % [facility] Eosinophils 8.5 (H) 0.0 - 5.0 % [facility] Basophils 1.3 (H) 0.0 - 1.0 % [facility] Immature granulocytes 0.5 0.0 - 1.0 % [facility] Specimen Blood Performing Organization Address City/State/ZIP Code Phon e Number [facility] DEPARTMENT OF PATHOLOGY [address] [facility] [address] AND [facility] [id number] [place] [address] Hemoglobin A1c (12/05/2019 12:36 PM CDT) Hemoglobin A1C 5.6 4.0 - 5.6 % [facility] Comment: [facility] HbA1c cutoffs for diagnosing diabetes: [facility]ITAL 4.0% - 5.6% = normal 5.7% - 6.4% = increased risk for diabetes (prediabetes )9 >=6.5% = diabetes9 Goals for glycemic control (ADA 2016) < 7.0% Target for non adults with diabetes. More or less stringent targets may be appropriate for individual patients. <7.5% Target for Children and adolescents with type 1 diabetes. Specimen Blood Performing Organization Address City/State/ZIP Code Phon e Number [facility] DEPARTMENT OF PATHOLOGY [address] [facility] [address] AND [facility] [id number] [place] [id number] HOSPITAL after 02/23/2019 Advance Directives For more information, please contact: [phone] Type Date Recorded Patient Guest Service Aide Explanati on Advance Directives, Living Will 12/05/2019 11:57 AM and Medical Power of Shoemaker Custom
--- OUTSIDE RECORDS SUMMARY | 2020-02-24 23:48 | XMS REPORT | Clinical Summary ---
:1955 Author Organization [facility] Address [address] [place] [address] Care Team Providers Name Role Phone Moiz [...] Coordination Note PCP- Rajendra ALONZO- Dr. Linares [phone] Problem Noted Date Acute respiratory failure with [...] Sangita Hartman RN 04/24/2019 Telephone Transplant Sangita Hartman RN Waitlist Nikhil toledo 04/15/2019 Telephone Transplant Belinda Leal Appointment 04/15/2019 Telephone Central Scheduling Belinda Leal other 04/12/2019 Social Work Transplant Marian Faust, [place] 04/08/2019 Telephone Transplant Belinda Leal Appointment 03/22/2019 Telephone Transplant Belinda Leal Appointment (r eschedule missed apt. on 03/21/19, annual updates) 03/20/2019 Outside Orders Radiology Rajendra Montoya Jr., MD 03/20/2019 Orders Only Transplant Sangita Hartman RN Awaiting transplantation of kidney (Primary Dx) 02/25/2019 Telephone Transplant Belinda Leal Appointment 02/25/2019 Documentation Transplant Sangita Hartman RN 02/25/2019 Telephone Transplant Belinda Leal Appointment after 02/23/2019 Immunizations Name Administration Dates Next Due PPD Test 04/03/2016 Social History Tobacco Use Types Packs/Day Years Used Date Former Smoker Tobacco Cessation: Counseling Given: Yes Comments: Quit 2005 Alcohol Use Drinks/Week oz/Week Comments No Quit drinking 23 08; social drinker Sex Assigned at Date Recorded Not on file Last Filed Vital Signs Not on file Plan of Treatment Health Maintenance Due Date Last Done Comments PNEUMOCOCCAL VACCINE 0-64 YRS (1 of 1 - 08[birth year]29/1963 PPSV23) DIABETIC EYE EXAM 08/29/1967 DIABETIC FOOT EXAM 08/29/1967 URINE MICROALBUMIN 08/29/1967 MEDICARE ANNUAL WELLNESS (YEAR 2 or FIRST 03/07/2015 YEAR if no IPPE) COLON CANCER SCREENING ANNUAL FOBT 06/11/2016 06/12/2015, 0 06/12/2015 HEMOGLOBIN A1C 09/27/2016 03/30/2016, 01/20/2015 DEPRESSION SCREENING (12+) 03/06/2019 LIPID PANEL 03/30/2019 03/30/2016, 04/30/2015 INFLUENZA VACCINE (#1) 2019 Procedures Procedure Name Priority Date/Time Associated Diagnosis Comme nts SARS-COV2/RT-PCR Routine 10/04/2019 9:58 AM Resu lts for this ([facility] & REF LABS) CDT procedure are in the results section. SARS-COV2/RT-PCR Routine 09/30/2019 8:00 PM Resu lts for this (HS & REF LABS) CDT procedure are in the results section. after 02/23/2019 Results SARS-CoV2/RT-PCR ([facility]) (10/04/2019 9:58 AM CDT)Only the most recent of2 resultswithin the time period is included. SARS-COV2/RT-PCR Negative Not Detected, [facility] Negative, See [facility] external report CENTER for linked test SARS-COV-2 [facility] PERFORMING LAB [facility] Specimen Other - Nasopharyngeal wall structure (b lexus structure) Narrative Performed At Negative result for this test determines that [facility]ONZALEZK[facility] SARS-CoV-2 RNA was not present in the [...] the Act. Fact Sheet for Healthcare Providers: https://www.Practice Management e-Tools.vArmour/sites/default/files/pro duct/documents/Fact_Sheet_HC_Providers_Suzi_SA RS-CoV-2.pdf Fact Sheet for Healthcare Patients: https://www.Practice Management e-Tools.com/sites/default/files/pro duct/documents/Fact_Sheet_Patients_Lyra_SARS-C oV-2.pdf Performing Laboratory: [facility] [address] [facility] [place] [address] Performing Organization Address City/State/Zipcode Phone Number [facility] [address] [place], [place] [phone] CENTER after 02/23/2019 Insurance Payer Benefit Plan / Subscriber ID Effective Phone Address T ype Group Dates UNITED OPT[employer] [id number] Effective for Transp [facility] RESOURCES NON-UNITED MCR all dates NETWK - REPL MEDICARE MGD CARE TEXANPLUS TEXANPLUS HMO [id number] 2014-Prese M aps Contracted ALL nt WELLCARE WELLCARE MAPS [id number] 2018-Prese MEDICARE MGD nt CARE (Home) [place] [address] Advance Directives For more information, please contact: [phone] Code Status Date Activated Date Inactivated Comments Full Code 03/30/2016 2:10 AM 04/11/2016 8:24 PM This code status was determined by: Patient Full Code 03/31/2015 10:13 AM 04/01/2015 12:55 AM This code status was determined by: Patient
--- OUTSIDE RECORDS SUMMARY | 2020-02-24 23:49 | XMS REPORT | Continuity of Care Document ---
:1955 Author Organization [facility] t Address [address] [place] [address] Care Team Providers Name Role Phone Moiz Montoya MD Primary Care Physician Jeannine CABALLERO Attending Clinician Kayode CABALLERO, Chiara Attending Clinician Chetan Donohue MD Attending Clinician Trae BERNAL Attending Clinician Radiology Attending Clinician Unavailable Pob, Lab Main Attending Clinician Unavailable Minnie LEIVA Attending Clinician Unavailable Elvis Attending Clinician Unavailable Christianne BOYD Attending Clinician Unavailable Moiz Montoya MD Attending Clinician SALENA RUSSELL Attending Clinician Unavailable SWETHA PISANO Attending Clinician Unavailable LEANA KHALIL Attending Clinician Unavailable INGRIS DANIELSON Attending Clinician Unavailable ESMER KERN Attending Clinician Unavailable KAYODE Admitting Clinician Unavailable THEODORE WEIR Admitting Clinician Unavailable Payers Payer Name Policy Type Policy Effective Expiration Source Number Date Date TEXANPLUSTEXANPLUS [id number] 2019 Chriss n [id number] 2020-Pr 00:00:00 M ethodist esentHMO [place] [employer] NETWK [id number] [facility] MGD - Medical CAREOPTUM NON-[facility] er MCR [id number] for all datesTransplants TEXANPLUSTEXANPLUS HMO [id number] [facility] [id number] 2015-Pr 00:00:00 - Medical esentMaps Contracted [facility] er WELLCARE MEDICARE MGD [id number] [address] [facility] [address] [facility] CAREWELLCARE 00:00:00 - Medical [id number] 2019-P C enter resent Problems Condition Condition Condition Status Onset Resolution Last Treating Co mments Source Name Details Category Date Date Treatment Clinician Date PVD PVD Disease Active 2019-03 Lange (periphera (periphera 0-06 Me thodi l vascular l vascular 00:00: st disease) disease) 00 Bilateral Bilateral Disease Active 2019-03 Willie ston atheroscle atheroscle 0-05 Me thodi rotic rotic 00:00: st renal renal 00 artery artery stenosis stenosis Arterioven Arterioven Problem Active [facility] ous [...] Overweight 00 e [place] Problem Active [place] deficiency Deficiency 5-18 Fa alexia anemia Anemia [...] Hyperparat Problem Active [facility] hyroidism hyroidism 5-18 Fami ly due to Due to 00:00: Practic renal Renal 00 e insufficie Insufficie ncy ncy Osteoarthr Osteoarthr Problem Active [facility] itis itis 5-18 Family 00:00: Practic 00 e Low back Low Back Problem Active Willian ge pain Pain 5-18 Family 00:00: Practic 00 e Type 2 Type 2 Problem Active [facility] diabetes Diabetes 5-18 Family mellitus Mellitus 00:00: Practi c with with 00 e multiple Multiple complicati Complicati ons ons Chronic Chronic Problem Active [facility] hepatitis Hepatitis 03-12 Fami ly C C 00:00: Practic 00 e 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 Renal 03-12 Family disease Disease 00:00: Practic 00 e [...] Disease Active [facility] diabetes diabetes 03-29 [facility] - mellitus mellitus 00:00: Medica l with renal with renal 00 Ce nter complicati complicati on on Chronic Chronic Disease Active Last [facility] hepatitis hepatitis 19 Assessmen L ukes - C virus C virus 00:00: t & Plan: Medic al infection infection 00 Lab Cent er studies confirm that he has hepatitis C. Genotype is unknown and he is treatment -naive. Review of his labs and imaging suggest that he does not have advanced liver disease. Decision to treat will be based on his genotype. Dottieer has been approved for treatment of GT 1 and 4 HCV in patients with ESRD/HD. Will check genotype and NS5A reflex resistanc e testing today. Will obtain liver biopsy for our review. No further imaging needed at this time. Immunity Immunity Disease Active Last [facility] status status 5-19 [facility] - testing testing 00:00: t & [...] today. ESRD (end ESRD (end Disease Active Last [facility] stage stage 5-19 [facility] - renal renal 00:00: t & Plan: [...] Disease Active Last [facility] syndrome syndrome - Assessguillaume Richards es - 00:00: t & Plan: Medical 00 With T2DM Center and hypertens ion, he meets criteria for metabolic syndrome. Managemen t per his PCP. Allergies, Adverse Reactions, Alerts Allergy Allergy Status Severity Reaction(s) Onset Inactive Treating Comm ents Source Name Type Date Date Clinician Crab Drug Active Itching Itching [facility] Allergy 1-26 in mouth, [facility] - 00:00: [facility] Medical 00 okay with Center shrimp/cr awfish Family History Family Member Diagnosis Comments Start Date Stop Date Source Natural father Other [place] [facility] Natural mother Dementia [place] [facility] Social History Social Habit Start Date Stop Date Quantity Comments Source History of tobacco Cigarette Smoker [place] use [facility] Sex Assigned At [place] [facility] Cigarettes smoked 2019-12-10 2019-12-10 [place] current (pack per 00:00:00 00:00:[address] day) - Reported Tobacco use and 2019-12-10 2019-12-10 Never used [place] exposure 00:00:00 00:00:00 [facility] Alcohol intake 2019-12-10 2019-12-10 Ex-drinker [place] 00:00:00 00:00:00 (finding) [facility] Alcohol Comment 2015-07-23 2015-07-23 Quit drinking [facility] Mazakes - 00:00:00 00:00:00 2005; social Medical Cent er drinker Tobacco Comment 2015-03-31 2015-03-31 Quit 2006 [facility] Maza kes - 00:00:00 00:00:00 [facility] Smoking Status Start Date Stop Date Source Light Tobacco Smoker [facility] Current every day 2019-12-10 00:00:00 [place] [facility] smoker Former smoker 2018-06-05 00:00:00 2018-06-05 00:00:00 [facility] Medications Ordered Filled Start Stop Current Ordering Indication Dosage Frequency Signature Comments Components Source Medication Medication Date Date Medication? Clinician (SIG) Name Name aspirin 81 2019-03- No 81mg QD Chew 1 [place] mg chewable 0-07 11-06 tablet (81 M ethodi tablet 00:00: 23:59 mg total) st 00 :00 daily for 30 days. clopidogreL 2019-03 2020- No 75mg QD Take 1 Willie ston (PLAVIX) 75 0-07 11-06 tablet (75 M ethodi mg tablet 00:00: 23:59 mg total) st 00 :00 by mouth daily for 30 days. clopidogreL 2019-03 2020- No 75mg QD Take 1 Willie ston (PLAVIX) 75 0-07 10-06 tablet (75 M ethodi mg tablet 00:00: 00:00 mg total) st 00 :00 by mouth daily for 30 days. HYDROcodone 2019-03 Yes acute pain 1{tbl} Q6H Take 1 Lange -acetaminop 0-06 tablet by Met salo martínez (NORCO) 16:07: mouth st 10-325 mg 01 every 6 per tablet (six) hours as needed for moderate pain .acute pain. ferric 2019-03 Yes Take by [facility] citrate 0-06 mouth. Methodi (AURYXIA 16:07: st ORAL) 01 doxazosin 2019-03 Yes 2mg QD Take 2 mg Willie ston (CARDURA) 2 0-06 by mouth Meth michelle MG tablet 16:07: nightly. st 01 carvediloL 2019-03 Yes 6.25mg Q.5D Take 6.25 [facility] (COREG) 0-06 mg by Methodi 6.25 MG 16:07: mouth 2 st tablet 01 (two) times a day with meals. cinacalcet 2019-03 Yes 30mg QD Take 30 mg [place] (SENSIPAR) 0-06 by mouth Metho di 30 MG 16:07: daily. st tablet clonIDINE 2019-03 Yes .2mg Q.5D Take 0.2 [place] HCl 0-06 mg by Methodi (CATAPRES) 16:07: mouth 2 st 0.2 MG 01 (two) tablet times a day. gabapentin 2019-03 Yes 100mg Q.[id number] Take 100 [facility] (NEURONTIN) 0-06 [id number] mg by Harriet ethodi 100 mg 16:07: 3D mouth 3 st capsule 01 (three) times a day. calcium 2019-03 Yes Take by Lange acetate 0-06 mouth. Methodi (PHOSLO 16:07: st ORAL) 01 pravastatin 2019-03 Yes 40mg QD Take 40 mg Nazario (PRAVACHOL) 0-06 by mouth Meth michelle 40 mg 16:07: daily. st tablet folic 2019-03 Yes Take by Lange acid/vit B 0-06 mouth. Methodi complex and 16:07: st C 01 (CORAL-HAMIDA ORAL) tiZANidine 2019-03 Yes 4mg Q8H Take 4 mg [place] (ZANAFLEX) 0-06 by mouth Metho di 4 MG tablet 16:07: every 8 st 01 (eight) hours as needed for muscle spasms. calcium 2019-03 Yes Take by Lange carbonate 0-06 mouth. Methodi (TUMS ORAL) 16:07: st 01 zolpidem 2019-03 Yes 10mg QD Take 10 mg Willie ston (AMBIEN) 10 0-06 by mouth Meth michelle mg tablet 16:07: nightly as st 01 needed for sleep. tamsulosin 2019-03 2020- No .4mg QD Take 0.4 [place] (FLOMAX) 0-01 10-01 mg by Methodi 0.4 mg 12:44: 00:[address] capsule 24 :00 daily. finasteride 2019- 2020- No 5mg QD Take 5 mg Lange (PROSCAR) 5 0-01 10-01 by mouth Met hodi mg tablet 12:44: 00:[address] 21 :00 tiZANidine 2019-03 2020- No 2mg Q8H Take 2 mg [place] (ZANAFLEX) 0-01 10-01 by mouth Meth michelle 2 MG tablet 12:43: 00:[address] 54 :00 (eight) hours as needed for muscle spasms. aspirin 81 2019- Yes 81mg QD Take [address] MG EC 4-02 by mouth [facility] - tablet 10:20: daily. Medical 33 Center amLODIPine 2019-0 Yes 10mg Take [address] (NORVASC) 4-02 by mouth. [facility] - 10 MG 10:19: Medical tablet 56 Center cloNIDine 2019-0 Yes .2mg Q.5D Take 0.[address] HCl 4-02 mg by [facility] - (CATAPRES) 10:18: mouth 2 Medi nataly 0.2 MG 27 (two) Center tablet times daily . HYDROcodone 2018- Yes 1{tbl} Take [address] -acetaminop 4-02 tablet by Susie es - hen (NORCO 10:18: mouth Medica l 10-325) 27 every 6 Center 10-325 mg (six) per tablet hours as needed for Pain. tiZANidine 2019- Yes 4mg Q.5D Take [address] (ZANAFLEX) 4-02 by mouth 2 Susie es - 4 MG tablet 10:18: (two) Medic al 27 times Center daily. gabapentin 2019-0 Yes 100mg Q.5D Take [address] (NEURONTIN) 4-02 mg by [facility] - 300 MG 10:18: mouth 2 Medical capsule 27 (two) Center times daily . clopidogrel 2019- Yes 75mg QD Take [address] (PLAVIX) 75 4-02 by mouth Luke s - mg tablet 10:18: daily. Medica l 27 Center lactulose 2018-0 Yes TAKE 20 [facility] (CHRONULAC) 3-26 GRAM [facility] - 10 gram/15 00:00: (30ML) BY Me dical mL solution 00 MOUTH ONCE Ce nter A DAY NEEDED zolpidem 2018-0 Yes TAKE [address] (AMBIEN) 10 2-21 TABLET [facility] - mg tablet 00:00: ORALLY AT Med ical 00 BEDTIME Center NEEDED atorvastati 2017-0 Yes 20mg Take [address] n (LIPITOR) 4-26 by mouth. Susie es - 20 MG 00:00: Medical tablet 00 Center hydrALAZINE 2017-0 Yes 50mg Q.[id number] Take [address] (APRESOLINE 2-06 [id number] tablets [facility] - ) 25 MG 00:00: 3D (50 mg Medical tablet 00 total) by Center mouth 3 (three) times daily. pantoprazol 2017-0 Yes 40mg QD Take [address] e 2-06 tablet (40 [facility] - (PROTONIX) 00:00: mg total) Me dical 40 MG 00 by mouth Center tablet daily. Aspir-81 mg Aspir-81 mg No 1 Q1D [...] route. carvedilol carvedilol No 1 BID carvedilol [facility] 6.25 mg 6.25 mg 6.25 mg Family tablet Take tablet Take tablet Practic 1 tablet 1 tablet Take 1 e twice a day twice a day tablet by oral by oral twice a route. route. day by oral route. clonidine clonidine No 1 BID clonidine [facility] HCl 0.2 mg HCl 0.2 mg HCl 0.2 mg Family tablet Take tablet Take tablet Practic 1 tablet 1 tablet Take 1 e twice a day twice a day tablet by oral by oral twice a route. route. day by oral route. gabapentin gabapentin No 1capsul TID gabapentin [facility] 100 mg 100 mg e(s) 100 mg Family capsule capsule capsule Practi c Take 1 Take 1 Take 1 e capsule 3 capsule 3 capsule 3 times a day times a day times a by oral by oral day by route. route. oral route. lactulose lactulose No 15mL Q1D lactulose [facility] 10 gram/15 10 gram/15 10 gram/15 Family mL (15 mL) mL (15 mL) mL (15 mL) Practic oral oral oral e solution solution solution Take 15 mL Take 15 mL Take 15 mL every day every day every day by oral by oral by oral route as route as route as directed. directed. directed. [place] 10 [place] 10 No 1 Q4H [place] 10 Milo tiffanie mg-325 mg mg-325 mg mg-325 mg Family tablet Take tablet Take tablet Practic 1 tablet 1 tablet Take 1 e every 4 every 4 tablet hours by hours by every 4 oral route oral route hours by as needed. as needed. oral route as needed. pravastatin pravastatin No 1 Q1D pravastati [facility] 40 mg 40 mg n 40 mg Family tablet Take tablet Take tablet Practic 1 tablet 1 tablet Take 1 e every day every day tablet by oral by oral every day route. route. by oral route. Renvela 800 Renvela 800 No 1 TID Renvela [place] mg tablet mg tablet 800 mg Fam traci Take 1 Take 1 tablet Practic tablet 3 tablet 3 Take 1 e times a day times a day tablet 3 by oral by oral times a route. route. day by oral route. Sensipar 30 Sensipar 30 No 1 Q1D Sensipar [facility] mg tablet mg tablet 30 mg Fami ly Take 1 Take 1 tablet Practic tablet tablet Take 1 e every day every day tablet by oral by oral every day route. route. by oral route. sildenafil sildenafil No 1 Q1D sildenafil [facility] 100 mg 100 mg 100 mg Family tablet Take tablet Take tablet Practic 1 tablet 1 tablet Take 1 e every day every day tablet by oral by oral every day route. route. by oral route. tizanidine tizanidine No 1 Q6H tizanidine [facility] 4 mg tablet 4 mg tablet 4 mg F amily Take 1 Take 1 tablet Practic tablet tablet Take 1 e every 6 every 6 tablet hours by hours by every 6 oral route oral route hours by as as oral route directed. directed. as directed. zolpidem 10 zolpidem 10 No 1 Q1D zolpidem [facility] mg tablet mg tablet 10 mg Fami ly Take 1 Take 1 tablet Practic tablet tablet Take 1 e every day every day tablet by oral by oral every day route at route at by oral bedtime. bedtime. route at bedtime. Immunizations Ordered Immunization Filled Immunization Date Status Commen ts Source Name Name pneumococcal pneumococcal 2019-01-04 [facility] Fa alexia conjugate PCV 13 conjugate PCV 13 00:00:00 Pr actice influenza, influenza, 2019-01-04 [facility] Family injectable, injectable, 00:00:00 Practice quadrivalent quadrivalent PPD Test 2016-04-[address] [facility] - 00:[facility] Center Vital Signs Vital Name Observation Time Observation Value Comments Source Height 2019-09-03 66 [in_i] [place] [facility] 00:00:00 Practice Height 2019-07-23 66 [in_i] [place] [facility] 00:00:00 Practice BMI (Body Mass 2019-07-23 25.8 kg/m2 [place] Famil y Index) 00:00:00 Practice Body Weight 2019-07-23 160 [lb_av] [place] [facility] 00:00:00 Practice Systolic blood 2019-12-10 206 mm[Hg] CHECK WEIGHER Thaooliver leigha [place] pressure 14:40:00 aware [facility] Diastolic blood 2019-12-10 88 mm[Hg] CHECK WEIGHER Clarkeoliver ahuja [place] pressure 14:40:00 aware [facility] Heart rate 2019-12-10 69 /min [place] 14:40:00 [facility] Body temperature 2019-12-10 37.11 Idalia [place] 12:15:24 [facility] Respiratory rate 2019-12-10 16 /min [place] 12:15:24 [facility] Oxygen saturation 2019-12-10 96 /min [place] in Arterial blood 12:15:24 [facility] by Pulse oximetry Body weight 2019-12-10 72.848 kg [place] 06:00:00 [facility] BMI 2019-12-10 25.92 kg/m2 [place] 06:00:00 [facility] Body height 2019-12-09 167.6 cm [place] 16:00:00 [facility] Procedures Procedure Date / Time Performing Clinician Source Performed ECG 12-LEAD 2019-12-10 14:01:00 Lisandro Romo [facility] TROPONIN 2019-12-10 12:50:00 Lisandro Romo [facility] BASIC METABOLIC PANEL 2019-12-10 05:33:00 Natalie Headley ton [facility] ESTIMATED GFR 2019-12-10 05:33:00 Natalie Headley Me thodist HEMODIALYSIS 2019-12-09 20:17:14 Skyler Rand Meth odist OR [place] < 1 HOUR 2019-12-09 19:26:47 JeannnieMartita todd Meth odist HEPATITIS B SURFACE 2019-12-09 19:13:00 Skyler Rand [facility] ANTIGEN HEPATITIS B SURFACE 2019-12-09 19:13:00 Skyler Rand [facility] ANTIBODY HEMODIALYSIS 2019-12-09 16:51:41 Skyler Rand Meth odist HEMODIALYSIS 2019-12-09 16:09:37 Skyler Rand Meth odist POC GLUCOSE 2019-12-09 16:02:00 Martita Corral Meth odist [place] AN ELECTIVE 2019-12-09 13:56:58 Antonieta Lawrence Nazario Harriet ethodist SUPRAGLOTTIC AIRWAY POC GLUCOSE 2019-12-09 12:42:00 Martita Corral odist POC PANEL 2019-12-09 10:37:00 Martita Corral odist COMPREHENSIVE METABOLIC 2019-12-09 10:32:00 Jeannine Nazmachelle bailey [facility] PANEL TYPE AND SCREEN 2019-12-09 10:32:00 Nazario Wilson odist Behzad Christine ESTIMATED GFR 2019-12-09 10:32:00 JeannineMartita odist XR CHEST 2 VW 2019-12-05 13:38:59 JeannineMartita Meth odist ECG PRE/POST OP 2019-12-05 13:07:15 JeannineMartita Meth odist PROTHROMBIN TIME WITH INR 2019-12-05 12:45:00 Jeannine Martita Junior ngton [facility]ism PARTIAL THROMBOPLASTIN 2019-12-05 12:45:00 Jeannine Nazmachelle Rehman on [facility]ism TIME (PTT) COVID-19 QUALITATIVE PCR 2019-12-05 12:37:00 Jeannine Nazethanharriet Willie haney [facility] HC COMPLETE BLD COUNT 2019-12-05 12:36:00 Martita Corral n [facility] W/AUTO DIFF HEMOGLOBIN A1C 2019-12-05 12:36:00 Nazario Wilson odist Behzad Christine SARS-COV2/RT-PCR ([facility] & 2019-10-04 09:58:[address] [facility]F [facility] SARS-COV2/RT-PCR ([facility] & 2019-09-30 20:00:[address] [facility] Plan of Care Planned Activity Planned Date Details Comments Source Future Scheduled 2019-11-05 INFLUENZA VACCINE (#1) [facility] Test 00:00:00 [code = INFLUENZA Medical Ce nter VACCINE (#1)] Future Scheduled 2019-10-05 INFLUENZA VACCINE [place] [facility] Test 00:00:00 [code = INFLUENZA VACCINE] Future Scheduled 2019-03-[address] - Test 00:00:00 (procedure) [code = Medical Center 46515799] Future Scheduled 2019-03-[address] [facility] - Test 00:00:00 (12+) [code = Medical Center DEPRESSION SCREENING (12+)] Future Scheduled 2016-09-[address] [facility] - Test 00:00:00 measurement Medical Center (procedure) [code = 05263465] Future Scheduled 2016-06-[address] [facility] - Test 00:00:00 malignant neoplasm of Medica Center colon (procedure) [code = 982423696] Future Scheduled 2015-03-[address] [facility] - Test 00:00:00 WELLNESS (YEAR 2 or Medical Center FIRST YEAR if no IPPE) [code = MEDICARE ANNUAL WELLNESS (YEAR 2 or FIRST YEAR if no IPPE)] Future Scheduled 2007-08-29 COLONOSCOPY SCREENING [place] [facility] Test 00:00:00 [code = COLONOSCOPY SCREENING] Future Scheduled 2007-08-29 SHINGLES VACCINES (#1) [place] [facility] Test 00:00:00 [code = SHINGLES VACCINES (#1)] Future Scheduled 1973 COVID-19 VACCINE (#1) [place] [facility] Test 00:00:00 [code = COVID-19 VACCINE (#1)] Future Scheduled 1967-08-[address] E[address] EXAM [facility] - Test 00:00:00 [code = DIABETIC EYE Medical Center EXAM] Future Scheduled 1967-08-[address] [facility] - Test 00:00:00 examination Medical Center (regime/therapy) [code = 581400099] Future Scheduled 1967-08-29 Urine screening for [facility] - Test 00:00:00 protein (procedure) Medical Center [code = 833096803] Future Scheduled 1967-08-29 DIABETES: RETINAL EYE [place] [facility] Test 00:00:00 EXAM [code = DIABETES: RETINAL EYE EXAM] Future Scheduled 1967-08-29 DIABETIC FOOT EXAM [place] [facility] Test 00:00:00 [code = DIABETIC FOOT EXAM] Future Scheduled 1963-08-[address] [facility] - Test 00:00:00 0-64 YRS (1 of 1 - Medical C enter PPSV23) [code = PNEUMOCOCCAL VACCINE 0-64 YRS (1 of 1 - PPSV23)] Encounters Start End Encounter Admission Attending Care Care Encounter Source Date/Time Date/Time Type Type Clinicians Facility Department ID 2019-12-09 2019-12-10 Outpatient NATALIE HEADLEY [facility] [id number] [place] 00:00:00 00:00:00 276 Method i 2019-12-05 2019-12-05 Outpatient JEANNINE, [facility] [id number] [place] 00:00:00 00:00:00 UTTAM 188 Method i 2019-12-05 2019-12-05 Outpatient JEANNINE, [facility] [id number] [place] 00:00:00 00:00:00 UTTAM 476 Method i 2019-10-10 2019-10-10 Hospital Radiology [facility] [id number] 12:34:44 23:59:00 Encounter [place] [id number] [place] [id number] [place] [id number] 2019-10-10 2019-10-10 Case Supervisor Rodney Steen [facility] [id number] 12:38:05 12:53:05 Visit Lab Main [place] [id number] [place] [id number] Professio [id number] [address] 2019-09-03 2019-09-03 Veronica VFP [place] - [id number] [place] 00:00:00 00:00:00 [facility] [place] [facility] CHECK WEIGHER: Medical - Pracjonathan crowley [address] [email or web address], [email or web address] [address], [place] [address] , Ph. 2019-07-23 2019-07-23 Veronica VFP [place] - [id number] V illage 00:00:00 00:00:00 [facility] [place] [facility] CHECK WEIGHER: Medical - Practi c [address] [email or web address], [address], [place] [address] , Ph. Results Test Description Test Time Test Comments Results Result Comments Source Hepatitis B surface Ab, quantitative 2019-12-12 08:49:45 Test Item Value Reference Range Interpretation Comme nts Hepatitis B surface Ab (test 49.10 IU/L The anti-HBs is greater than or equal to code = 5193-8) 10 IU/L. This patient has either had an antibody respon se to HBV vaccination, received a silva sfusion, or has recovered from HBV infect ion. This patient should be considered i mmune to hepatitis B.An anti-HBs result greater than or equal to 10 IU/L implies immunity. For post-vaccinatio n antibody testing guidelines for the general public refer to MMWR Decembe r 2004/Vol. 54(No. 16);1-, and f or healthcare workers refer to MMWR D ec2012/Vol. 62(No. 10);1-19 .Reference Interval: anti-HBs 9.99 I U/L or less ....... Twskkcph70.00 I U/L or greater .... PositiveResults greater than 1,000.00 IU/L are report ed as greater than 1,000.00 IU/L. This assay should not be used for blood donor screening, associated re-e ntry protocols, or for screening Human Cell, Tissues and Cellular and Ti ssue-Based Products (HCT/P).Perform ed By: [employer] [place] [id number] aboratory Director: Tania Raymond MD [place] [facility] 12 [id number] 16:17:46 Test Item Value Reference Range Interpretation Comments Ventricular rate (test 70 code = 253) Atrial rate (test code 70 = 255) [place] interval (test code 144 = 266) QRSD interval (test 92 code = 260) QT interval (test code 450 = 264) QTC interval (test code 486 = 265) P axis 1 (test code = 47 267) QRS axis 1 (test code = -10 268) T wave axis (test code 147 = 270) EKG impression (test Normal sinus code = 273) rhythm-Nonspecific ST and T wave abnormality-Prolonged QT-Abnormal ECG-In automated comparison with ECG of 05-DEC-2019 13:07,-Nonspecific T wave abnormality, worse in Lateral leads- Nazario [id number] 13:27:03 Test Item Value Reference Range Interpretation Comments Troponin (test code = 0.045 ng/mL 0-0.04 H In pat ients 23248-7) suspected of orozco ving a myocardial infarction, topher ng with all other appropriate cli nical measures and ac tions including ECG a nd other diagnosti cs as appropriate, me asure Ultra TnI at 0 hrs and at 3 hrs.Myocardial infarction VERY LIKELYThe 0 hr TnI level is > 0.10 ng/mL ----- ----- ----- --Vipul cardial infarct ion LIKELYThe 0 hr TnI level is > 0.04 ng/mL and 3 hr level is increased or decreased by at least 0.020 ng/ mL ----- ----- ----- Vipul cardi al infarction V GINNA UNLIKELYBoth th e 0 hr and 3 hr TnI levels <= 0.04 ng/mL(within no rmal limits) OR 0 hr is > 0.04 ng/mL and 3 hr is increased OR decreased by le ss than 0.020 ng/m L Lab Interpretation Abnormal (test code = 75460-5) Nazario [facility] [id number] 07:02:28 Test Item Value Reference Range Interpretation Comments Sodium (test code = 2951-2) 135 135- 148 mEq/L Potassium (test code = 2823-3) 4.6 3.5- 5.0 mEq/L Chloride (test code = 2075-0) 97 98- 112 mEq/L L CO2 (test code = 2027-9) 25 24- 31 mEq/L Anion gap (test code = 47709-2) 13@ANIO 7- 15 mEq/L BUN (test code = 3094-0) 33 mg/dL 8-23 H Creatinine (test code = 2160-0) 5.39 mg/dL 0.7-1.2 H Glucose (test code = 2345-7) 182 mg/dL 65-99 H Calcium (test code = 47306-5) 9.0 mg/dL 8.8-10.2 Lab Interpretation (test code = Abnormal 45187-8) Nazario MethodistEstimated [id number] 07:02:28 Test Item Value Reference Range Interpretation Comments Estimated GFR (test 10 mL/min/1.73 m2 A Timoteo reidissac Units code = 5488) InterpretationG 1 >=90 Sheri l or highG2 60-89 Mildly decrease dG3a 45-59 Mil dly to moderately decr crujoV5g 30-44 Moderately to s everely decreasedG4 15-29 Severe ly decreasedG5 <15 Kidney elizabeth lureThe eGFR was calcul ated using the Chron ic Kidney Disease Epidemiology Collaboration ( CKD-EPI) equation. Interpretation is based on recommendati ons of the National Ki dney Foundation-Kidn ey Disease Outcome s Quality Initiat davin (NKF-KDOQI) pub lished in 2013. Lab Interpretation Abnormal (test code = 89545-9) [facility] MethodistHepatitis B surface [id number] 22:55:46 Test Item Value Reference Range Interpretation Comments Hepatitis B surface Ab (test code = Reactive Non-reactive A 24144-6) Lab Interpretation (test code = Abnormal 85378-1) [facility] MethodistHepatitis B surface [id number] 20:22:34 Test Item Value Reference Range Interpretation Comments Hepatitis B surface Ag (test Non-reactive Non-reactive code = 5195-3) Nazario MethodistOR [place] < 1 [id number] 19:38:18Hm Interface, Radiology Results - 12/09/2019 7:41 PM CDTEXAMINATION: OR [place] < 1 HOURCLIN ICAL HISTORY: None provided.IMPRESSION:1. Fluoroscopy was provided in the operating. I was not present during the procedure.2. Please refer to the operative report for findings.3. Total Dose: 114 fluoroscopic images. 27.1 minutes of fluoroscopy time.[facility] [id number] 16:09:09 Test Item Value Reference Range Interpretation Comments POC glucose (test code = 128 mg/dL 65-99 H Ope rator Name: 24625-0) Gwendolyn Oviedo ice ID: [id number] Lab Interpretation (test Abnormal code = 02630-2) [facility] [id number] 15:33:52 Test Item Value Reference Range Interpretation Comments POC sodium (test code = 134 mmol/L 135-148 L 2947-0) POC potassium (test 5.7 mmol/L 3.5-5 H code = 6298-4) POC glucose (test code 121 mg/dL 65-99 H Opera tor Name: = 2339-0) Papa Baileyice ID : [id number] POC hemoglobin (test 10.2 g/dL 14-18 L code = 718-7) POC hematocrit (test 30 % 41-51 L code = 4544-3) Lab Interpretation Abnormal (test code = 36662-1) [facility]398[facility]-10 13:56:58Antonieta Lawrence CRNA 12/09/2019 1:57 PMAirway Date/Time: 12/09/2019 1:57 PMPerformed by: Antonieta Lawrence CRNAAuthorized by: Sameer Donohue MD Location: ORUrgency: ElectiveDifficult Airway: No Anesthesiologist: Sameer Donohue MDResident/AVTAR/AA: Antonieta Lawrence CRNAPerformed by: resident/BEAN SORTER/AAPreoxygenated with 100% O2: Yes C-spine Precautions Maintained Throughout: Yes Mask Ventilation: Not attemptedFinal Airway Type: Supraglottic airwayFinal LMA: I-GelLMA Size: 4Number of Attempts at Approach: 1Houston MethodistType and [id number] 12:06:00 Test Item Value Reference Range Interpretation Comments ABO grouping (test code = 883-9) O Rh type (test code = 28796-6) POS Antibody screen (gel) (test code = NEG 890-4) Lange MethodistComprehensive metabolic [id number] 11:08:24 Test Item Value Reference Range Interpretation Comments Sodium (test code = 134 135- 148 mEq/L L 2951-2) Potassium (test code = 6.0 3.5- 5.0 mEq/L HH Fin al results 2823-3) called to and r ead back by Albin Carney/RIGO. 12/09/2019 11:0 7 CBJ No hemolysi s. Chloride (test code = 97 98- 112 mEq/L L 2075-0) CO2 (test code = 2027-9) 22 24- 31 mEq/L L Anion gap (test code = 15@ANIO 7- 15 mEq/L 57193-3) BUN (test code = 3094-0) 56 mg/dL 8-23 H Creatinine (test code = 8.57 mg/dL 0.7-1.2 H 2160-0) Glucose (test code = 130 mg/dL 65-99 H 2345-7) Calcium (test code = 9.0 mg/dL 8.8-10.2 73840-9) Protein (test code = 6.7 g/dL 6.3-8.3 2885-2) Albumin (test code = 3.7 g/dL 3.5-5 1751-7) A/G ratio (test code = 1.2 0.7-3.8 1759-0) Alkaline phosphatase 215 U/L 40-129 H (test code = 6768-6) AST (test code = 1920-8) 25 U/L 10-50 ALT (test code = 1742-6) 13 U/L 5-50 Total bilirubin (test 0.8 mg/dL 0.2-1.2 code = 1975-2) Lab Interpretation (test Abnormal code = 22843-9) Nazario Torres Pre/Post [id number] 00:44:14 Test Item Value Reference Range Interpretation Comments Ventricular rate (test 70 code = 253) Atrial rate (test code = 70 255) [place] interval (test code = 136 266) QRSD interval (test code 88 = 260) QT interval (test code = 434 264) QTC interval (test code 468 = 265) P axis 1 (test code = 29 267) QRS axis 1 (test code = -31 268) T wave axis (test code = 135 270) EKG impression (test Normal sinus code = 273) rhythm-Possible Left atrial enlargement-Left axis deviation-Anterior infarct , age undetermined-Abnormal ECG-No previous ECGs available-Electronica lly Signed By Evelyn Baker MD ([id number]) on 12/06/2019 12:44:11 AM Nazario SchmidCOVID-19 qualitative [id number] 21:14:16 Test Item Value Reference Range Interpretation Comments Interpretation (test Negative results do code = 7210672) not preclude 2019-nCoV infection and should not be used as the sole basis for treatment or other patient management decisions. Negative results must be combined with clinical observations, patient history, and epidemiological information. COVID-19 qualitative Not-Detected Not-Detected PCR result (test code = 67331-1) COVID-19 qualitative See link below for C ase Number: PCR (test code = PDF Lab Report [id number]) Nazario SchmidXR Chest 2 [id number] 16:56:18Hm Interface, Radiology Results Incoming - 12/05/2019 4:59 PM CDTEXAMINATION: XR CHEST 2 VWCLINICAL HISTORY: Z01.818 Encounter for other preprocedural examination, PRE OPCOMPARISON: None.IMPRESSION:Heart and mediastinum: Cardiomediastinal silhouette is prominent. Atherosclerotic calcifications of the aortic arch.Lungs and pleura: There is no focal airspace disease, pleural effusion or pneumothorax.Bones: No acute abnormality.Spinal cord stimulator device seen overlying the thoracic spine.[facility]-[id number] and approved by college president/fellow: Joseph Malik M.D.I, Daniel Abbott, personally reviewed the images and resident's/fellow's findings and agree with the final report.Nazario Schmid Hemoglobin [id number] 13:43:59 Test Item Value Reference Range Interpretation Comments Hemoglobin A1C (test 5.6 % 4-5.6 HbA1c c utoffs for code = 73159-0) diagnosing d iabetes:4.0% - 5.6% = normal 5.7% - 6.4% = increase d risk for diabetes (prediabetes)9> =6.5% = rwagljqu9Zzbid for glycemic contro l (ADA 2016)< 7.0% Ta rget for non susie lts with diabetes. More or less stringent targe ts may be appropriate for individual shashi ents. <7.5% Target for Children and ad olescents with type 1 aryan betes. Lange MethodistPartial thromboplastin time, [id number] 13:35:33 Test Item Value Reference Range Interpretation Comments PTT (test code = 31.4 23.0- 36.0 sec PTT thera peutic range for 3173-2) unfractionated heparin is61.0-112.0 se conds which corresponds to Anti-Xa0.3-0.7 U/ml. [place] MethodistProthrombin time with [id number] 13:34:44 Test Item Value Reference Range Interpretation Comments Prothrombin time (test 14.5 11.5- 14.5 sec code = 5902-2) INR (test code = 1.1 [facility] Normalized Rati o (INR) is a therapeutic m onitoring tool for patien ts who are stable on oral anticoagulant t herapy. An INR of 2.0-3.0 is suggested for d eep vein thrombosis/pulm onary embolism. [place] MethodistCBC with platelet and [id number] 13:28:57 Test Item Value Reference Range Interpretation Comments WBC (test code = 26729-9) 6.3 4.5- 11.0 k/uL RBC (test code = 81408-8) 2.77 m/uL 4.4-6 L HGB (test code = 718-7) 8.6 g/dL 14-18 L HCT (test code = 4544-3) 27.9 % 41-51 L MCV (test code = 787-2) 100.7 fL 82-100 H MCH (test code = 785-6) 31.0 pg 27-34 MCHC (test code = 786-4) 30.8 g/dL 31-37 L RDW - SD (test code = 71302-3) 56.1 fL 37-55 H MPV (test code = 03430-7) 10.0 fL 6.9-11 Platelet count (test code = 165 K/uL 150-400 28796-2) Nucleated RBC (test code = 93305-4) 0.00 /100 WBC Neutrophils (test code = 88638-6) 59.6 % 39-69 Lymphocytes (test code = 82579-9) 21.4 % 25-45 L Monocytes (test code = 79716-2) 8.7 % 0-10 Eosinophils (test code = 97983-8) 8.5 % 0-5 H Basophils (test code = 78624-9) 1.3 % 0-1 H Immature granulocytes (test code = 0.5 % 0-1 53154-8) Lab Interpretation (test code = Abnormal 86770-2) Nazario ShahARS-CoV2/RT-PCR ([facility])2019-10-04 22:28:00 Test Item Value Reference Range Interpretation Comments SARS-COV2/RT-PCR Negative Not Detected, (test code = Negative, See 49866-5) external report for linked test SARS-COV-2 [facility] PERFORMING LAB (test code = 59678-8) STEVEN (test code = Negative result for this STEVEN) test determines that SARS-CoV-2 RNA was not [...] of the Act. Fact Sheet for Healthcare Providers:https://www.SecureAuth/sites/default/f eunice/product/documents/F act_Sheet_HC_Providers_L has_PEGB-AwD-1.pdf Fact Sheet for Healthcare Patients:https://www.Rewind Me/sites/default/fi les/product/documents/Fa ct_Sheet_Patients_Lyra_S ARS-CoV-2.pdf Performing Laboratory:[facility], [place] [id number] [place], [place] [address]ARS-COV2/RT-PCR ([facility])2019-10-04 22:28:00 Test Item Value Reference Range Interpretation Comments SARS-COV2/RT-PCR (test Negative Not Detected, Negative, code = 6334868) See external report for linked test SARS-COV-2 PERFORMING LAB [facility] (test code = 9758601) Negative result for this test determines that [...] 564(g) of the Act.Fact Sheet for Healthcare Providers:https://www.SocialStay/sites/default/files/product/documents/Fact_Shee s_OW_Xnxpdnwlc_Xjei_LUJC-CtJ-3.pdfFact Sheet for Healthcare Patients:https://www.SocialStay/sites/default/files/product/ documents/Bdrh_Capwr_Vmeffzlk_Kwec_ALWT-FjC-2.pdfPerforming Laboratory:[facility], [place] [address]CUMT-SKZ1/RT-PCR ([facility])2019-10-01 04:23:00 Test Item Value Reference Range Interpretation Comments SARS-COV2/RT-PCR (test code Negative Not Detected, Negative, = 8825117) See external report for linked test SARS-COV-2 PERFORMING LAB [facility] (test code = 4584713) Negative results do not preclude SARS-CoV-2 infection [...] of the Act.Fact Sheet for Healthcare Pro viders:https://www.Tapgage/Documents/Xpert%20Xpress%20SARS%20CoV-2/Fact%20Sh eets/302-3802%22KHSM-ASL-9%20HEALTHCARE%20PROVIDERS%20FACT%20SHEET.pdfFact Sheet for Healthcare Patients:https://www.Modern Boutique/Documents/Xpert%20Xpress%20SARS%20CoV-2/Fact%20Sheets/302-3801%20SARS-COV -2%20PATIENT%20FACT%20SHEET.pdfPerforming Laboratory:[facility], [place] [address]SIGDJLL IMAGING, MULTI, PHARM, SPECT 2019-02-21 15:54:00Referring: Dr. Schultz EtheridgeFINAL REPORT PROCEDURE: MYOCARDIAL PERFUSION SPECT IMAGING (Rest/Stress)CPT CODE: 19986 INDICATION: Renal transplant evaluation, hypertension, shortness of [...] 32.7 mCi of Tc-99m sestamibi was injected in travenously at peak stress, and gated SPECT images [...] is no prior study for comparison. Signed: Romie Darnell MDReport Verified Date/Time: 02/21/2019 15:54:30 Reading Location: [address] Reading Room [id number] 17:11:00 Test Item Value Reference Range Interpretation Comments PROSTATE SPECIFIC ANTIGEN (BEAKER) 0.8 ng/mL 0.0-4.0 (test code = 844) HEPATITIS B SURFACE [id number] 17:11:00 Test Item Value Reference Range Interpretation Comments HEPATITIS B SURFACE ANTIBODY 612.9 mIU/mL <8.0 H (BEAKER) (test code = 647) PROTHROMBIN TIME/[id number] 14:59:00 Test Item Value Reference Range Interpretation Comments PROTIME (BEAKER) (test code = 15.6 seconds 11.7-14.7 H 759) INR (BEAKER) (test code = 370) 1.2 <=5.9 RECOMMENDED COUMADIN/WARFARIN INR THERAPY RANGESSTANDARD DOSE: 2.0 - 3.0 Includes: PROPHYLAXIS forvenous thrombosis, systemic embolization; TREATMENT for venous thrombosis and/or pulmonary embolus.HIGH RISK: Target INR is 2.5-3.5 for patients with mechanical heart valves.BASIC METABOLIC [id number] 14:58:00 Test Item Value Reference Range Interpretation [...] APPLICABLE FOR DIALYSIS PATIEN TS. HEPATIC FUNCTION [id number] 14:53:00 Test Item Value Reference Range Interpretation [...] 6-55 347) CBC W/PLT COUNT & AUTO [id number] 14:19:00 Test Item Value Reference Range Interpretation [...] = 2801) FLOW PRA CLASS I AND [id number] 12:02:00 Test Item Value Reference Range Interpretation Comments DATE OF SERUM (BEAKER) 001090 (test code = 2289) SERUM # (BEAKER) (test 068706 code = 2290) FLOW PRA CLASS I AND II See Scanned Report (test code = 2421) HEPATITIS B SURFACE [id number] 13:18:00 Test Item Value Reference Range Interpretation Comments HEPATITIS B SURFACE ANTIBODY < mIU/mL <8.0 (BEAKER) (test code = 647) [id number] 13:08:00 Test Item Value Reference Range Interpretation Comments PROSTATE SPECIFIC ANTIGEN (BEAKER) 0.9 ng/mL 0.0-4.0 (test code = 844) FLOW PRA CLASS I AND [id number] 16:00:00 Test Item Value Reference Range Interpretation Comments DATE OF SERUM (BEAKER) 6040312 (test code = 2289) SERUM # (BEAKER) (test 10290705 code = 2290) FLOW PRA CLASS I AND II See Scanned Report (test code = 2421) BASIC METABOLIC [id number] 15:51:00 Test Item Value Reference Range Interpretation [...] APPLICABLE FOR DIALYSIS PATIEN TS. HEPATIC FUNCTION [id number] 15:48:00 Test Item Value Reference Range Interpretation [...] 6-55 347) CBC W/PLT COUNT & AUTO [id number] 15:11:00 Test Item Value Reference Range Interpretation [...] (test code = 417) 0.00AFB CULTURE + [id number] 19:58:00 Test Item Value Reference Range Interpretation Comments CULTURE (BEAKER) (test No acid-fast bacilli code = 1095) isolated in 42 days AFB SMEAR (BEAKER) No acid fast bacilli (test code = 994) seen AFB CULTURE + [id number] 19:58:00 Test Item Value Reference Range Interpretation Comments CULTURE (BEAKER) (test No acid-fast bacilli code = 1095) isolated in 42 days AFB SMEAR (BEAKER) No acid fast bacilli (test code = 994) seen AFB CULTURE + [id number] 18:21:00 Test Item Value Reference Range Interpretation Comments CULTURE (BEAKER) (test No acid-fast bacilli code = 1095) isolated in 42 days AFB SMEAR (BEAKER) No acid fast bacilli (test code = 994) seen POCT-GLUCOSE [id number] 10:30:00 Test Item Value Reference Range Interpretation Comments POC-GLUCOSE METER 468 mg/dL 70-110 HH TESTED AT [facility] [address] ([facility]) (test code = [place] [address]) [address] CREATINE KINASE (CK), TOTAL AND [id number] 08:31:00 Test Item Value Reference Range Interpretation Comments CREATINE KINASE TOTAL (BEAKER) 42 U/L 29-200 (test code = 380) CREATINE KINASE-MB (BEAKER) (test 2.3 ng/mL 0.0-6.6 code = 750) CREATINE KINASE-MB INDEX (BEAKER) 5.5 % (test code = 395) Effective 01/21/2014: CK-MB Reference Range ChangeNew: 0.0-6.6 Previous: 0.0-4.9CK-MB Reference Range:<6.7 Normal6.7-10.0 Borderline>10.0 AbnormalTROPONIN [id number] 08:31:00 Test Item Value Reference Range Interpretation [...] acute neurological disease, and persistent tachyarrhythmia.BASIC METABOLIC [id number] 08:27:00 Test Item Value Reference Range Interpretation [...] S NOT APPLICABLE FOR DIALYSIS PATIEN TS. [id number] 08:24:00 Test Item Value Reference Range Interpretation Comments MAGNESIUM (BEAKER) (test code = 2.4 mg/dL 1.6-2.6 627) CBC W/PLT COUNT & AUTO [id number] 08:17:00 Test Item Value Reference Range Interpretation [...]
[2020-02-25 00:56] LABS: Absolute Lymphocytes (CBC) 0.9 K/uL (0.7-4.9); Basophils % 1.3 % (0-1.3); Hematocrit 33.9 % (39.6-49.0); Lymphocytes % 12.4 % (15.3-44.8); MPV 9.1 fL (7.6-11.3); RBC Red Blood Cell Count 3.65 M/uL (4.33-5.43)
[2020-02-25] MEDS ORDERED: LABETALOL 20 MG/4ML SYRINGE IV ONE (00:56)
[2020-02-25 00:57] LABS: Protime INR 0.97
[2020-02-25 01:24] LABS: Potassium 6.3 mmol/L (3.5-5.1)
--- NOTE | 2020-02-25 01:48 | EDPHYS ---
Physician Documentation [facility] Name: Alexis Urbano Age: 64 yrs Sex: Male : 1955 Arrival Date: 02/24/2020 Time: 23:46 Bed 17 Private MD: Rajendra Montoya E ED Physician Sen Bear HPI: 02/24 00:44 This 64 yrs old Male presents to ER via Ambulatory with complaints of ma2 Breathing Difficulty, Cough, poss fluid overload. 00:44 The patient has shortness of breath at rest. Onset: The symptoms/episode began/occurred ma2 gradually, 1 day(s) ago. Associated signs and symptoms: Pertinent negatives: non-productive cough, diaphoresis, fever, loss of consciousness, nausea. Severity of symptoms: At their worst the symptoms were moderate in the emergency department the symptoms are unchanged. The patient has experienced similar episodes in the past. he missed his HD today.. . Historical: - PMHx: 00:16 Hypertension; Diabetes - NIDDM; Dialysis; rv - PSHx: 00:16 None; rv - Immunization history:: Adult Immunizations up to date. - Social history:: Smoking status: Patient reports the use of cigarette tobacco products, smokes one-half pack cigarettes per day, Patient/guardian denies using alcohol, street drugs, The patient lives with family. - Family history:: not pertinent. ROS: 00:44 Constitutional: Negative for fever, chills, and weight loss. ma2 00:44 All other systems are negative. Exam: 00:44 Constitutional: This is a well developed, well nourished patient who is awake, alert, ma2 and in no acute distress. Eyes: Pupils equal round and reactive to light, extra-ocular motions intact. Lids and lashes normal. Conjunctiva and sclera are non-icteric and not injected. Cornea within normal limits. Periorbital areas with no swelling, redness, or edema. ENT: Nares patent. No nasal discharge, no septal abnormalities noted. Tympanic membranes are normal and external auditory canals are clear. Oropharynx with no redness, swelling, or masses, exudates, or evidence of obstruction, uvula midline. Mucous membranes moist. Neck: Trachea midline, no thyromegaly or masses palpated, and no cervical lymphadenopathy. Supple, full range of motion without nuchal rigidity, or vertebral point tenderness. No Meningismus. Chest/axilla: Normal chest wall appearance and motion. Nontender with no deformity. No lesions are appreciated. Cardiovascular: Regular rate and rhythm with a normal S1 and S2. No gallops, murmurs, or rubs. Normal PMI, no JVD. No pulse deficits. Abdomen/GI: Soft, non-tender, with normal bowel sounds. No distension or tympany. No guarding or rebound. No evidence of tenderness throughout. Skin: Warm, dry with normal turgor. Normal color with no rashes, no lesions, and no evidence of cellulitis. MS/ Extremity: Pulses equal, no cyanosis. Neurovascular intact. Full, normal range of motion. Psych: Awake, alert, with orientation to person, place and time. Behavior, mood, and affect are within normal limits. 00:44 Respiratory: moderate respiratory distress is noted, Respirations: labored breathing, Breath sounds: rales, that are moderate, are located in both bases. Vital Signs: 00:13 BP 228 / 96; Pulse 87; Resp 21; Temp 98.2; Pulse Ox 97% on R/A; Weight 76 kg; rv 03:41 BP 198 / 85; Pulse 74; Resp 18; Pulse Ox 99% on R/A; rv 04:00 BP 221 / 92; Pulse 80; Resp 17; Pulse Ox 96% on R/A; rv 05:00 BP 198 / 77; Pulse 76; Resp 20; Pulse Ox 95% on R/A; rv 05:30 BP 201 / 75; Pulse 74; Resp 20; Pulse Ox 96% on R/A; rv 06:01 BP 188 / 75; Pulse 73; Resp 20; Pulse Ox 96% on R/A; rv MDM: 00:12 Patient medically screened. ma2 00:44 Differential diagnosis: Anemia Anxiety Reaction asthma, Chronic Obstructive Pulmonary ma2 Disease pulmonary edema, reactive airway disease. Data reviewed: vital signs, nurses notes, EMS record, skilled nursing records. 01:45 ED course: discussed with dr. corrigan recommends emergent hd. ma2 02/24 00:15 Order name: COVID-19 ma2 02/24 00:15 Order name: Basic Metabolic Panel ma2 02/24 00:15 Order name: CBC with Diff ma2 02/24 00:15 Order name: PT-INR [facility] 02/24 00:58 Order name: CBC with Automated Diff; Complete Time: 01:04 EDMS 02/24 01:16 Interpretation: Abnormal. la1 02/24 00:58 Order name: Protime (+INR); Complete Time: 01:04 EDMS 02/24 00:15 Order name: XRAY Chest (1 view) nh2 02/24 01:25 Order name: Basic Metabolic Panel; Complete Time: 01:34 EDMS 02/24 02:15 Order name: CORONAVIRUS EDMS 02/24 02:23 Order name: SARS-COV-2 RT PCR; Complete Time: 03:39 EDMS 02/24 00:15 Order name: EKG; Complete Time: 02:04 nh2 02/24 00:15 Order name: Cardiac monitoring; Complete Time: 00:44 ma2 02/24 00:15 Order name: EKG - Nurse/Tech; Complete Time: 00:45 ma2 02/24 00:15 Order name: IV Saline Lock; Complete Time: 00:45 ma2 02/24 00:15 Order name: Labs collected and sent; Complete Time: 00:45 ma2 02/24 00:15 Order name: O2 Per Protocol; Complete Time: 00:45 ma2 02/24 00:15 Order name: O2 Sat Monitoring; Complete Time: 00:45 ma2 Administered Medications: 00:44 Drug: Labetalol 10 mg Route: IVP; Infused Over: 2 mins; Site: right forearm; rv 04:13 Follow up: Response: Blood pressure is unchanged rv 01:46 CANCELLED (Physician Discretion): Albuterol 2.5 mg Inhalation every 20 minutes x3 rv 01:58 Drug: Lyman 10 mg-325 mg 1 tabs Route: PO; rv 04:14 Follow up: Response: No adverse reaction rv 01:59 Drug: Calcium Gluconate 1 grams Route: IVPB; Infused Over: 60 mins; Site: right forearm;rv 02:30 Follow up: IV Status: Completed infusion; IV Intake: 100ml rv 01:59 Drug: Gabapentin 300 mg Route: PO; rv 04:13 Follow up: Response: No adverse reaction rv 02:30 Drug: Insulin Regular Human 10 units {Co-Signature: ovidio (Adeline Rosas RN).} Route: IVP; rv Site: right forearm; 04:13 Follow up: Response: No adverse reaction rv 02:30 Drug: D50W 50 ml Route: IVP; Site: right forearm; rv 04:13 Follow up: Response: No adverse reaction rv 02:44 Drug: Kayexalate 45 grams Route: PO; rv 04:13 Follow up: Response: No adverse reaction rv 03:41 Drug: hydrALAZINE 10 mg Route: IV; Rate: calculated rate; Site: right forearm; rv 06:03 Follow up: Response: Blood pressure is lowered; IV Status: Completed infusion rv 05:03 Drug: cloNIDine 0.2 mg Route: PO; rv 06:03 Follow up: Response: Blood pressure is lowered rv 05:04 Drug: carvedilol 6.25 mg Route: PO; rv 06:03 Follow up: Response: Blood pressure is lowered rv Disposition: 02/25/20 01:46 Hospitalization ordered by Ryan Ward for Inpatient Admission. Preliminary diagnosis are Hyperkalemia, Hypertension secondary to other renal disorders. - Bed requested for Telemetry/MedSurg (Inpatient). - Status is Inpatient Admission. rv - Condition is Stable. - Problem is new. - Symptoms are unchanged. Signatures: Dispatcher [employer] EDMS Priscilla Lawrence RN RN Sixto Kramer, CARE MANAGER CNA-C CARE MANAGER CNA-Cla1 Sen Bear MD MD ma2 Vicente, Ronaldo, RN RN Adeline Rosas RN, ea Corrections: (The following items were deleted from the chart) 01:46 01:34 Albuterol 2.5 mg Inhalation every 20 minutes x3 ordered. la1 rv 02:31 01:46 Hospitalization Ordered by Ryan Ward MD for Inpatient Admission. Preliminary mw diagnosis is Hyperkalemia; Hypertension secondary to other renal disorders. Bed requested for Telemetry/MedSurg (Inpatient). Status is Inpatient Admission. Condition is Stable. Problem is new. Symptoms are unchanged. ma2 06:03 02:31 02/25/2020 01:46 Hospitalization Ordered by Ryan Ward MD for Inpatient rv Admission. Preliminary diagnosis is Hyperkalemia; Hypertension secondary to other renal disorders. Bed requested for Telemetry/MedSurg (Inpatient). Status is Inpatient Admission. Condition is Stable. Problem is new. Symptoms are unchanged. mw
--- NOTE | 2020-02-25 01:48 | ER ---
Nurse's Notes [facility] Name: Alexis Urbano Age: 64 yrs Sex: Male : 1955 Arrival Date: 02/24/2020 Time: 23:46 Bed 17 Private MD: Rajendra Montoya E Diagnosis: Hyperkalemia;Hypertension secondary to other renal disorders Presentation: 02/24 00:13 Chief complaint: Patient states: I FEEL LIKE I HAVE FLUID OVERLOAD. THEY ONLY TOOK 1 rv KILO FROM MY DIALYSIS. Coronavirus screen: Client presents with at least one sign or symptom that may indicate coronavirus-19. Standard/surgical mask placed on the client. Provider contacted for isolation considerations. Client reports previous positive COVID test result. TEST ONE WEEK AGO. Ebola Screen: No symptoms or risks identified at this time. Initial Sepsis Screen: Does the patient meet any 2 criteria? No. Patient's initial sepsis screen is negative. Does the patient have a suspected source of infection? No. Patient's initial sepsis screen is negative. Risk Assessment: Do you want to hurt yourself or someone else? Patient reports no desire to harm self or others. Onset of symptoms is unknown. 00:13 Method Of Arrival: Ambulatory rv 00:13 Acuity: JOEL 3 rv Triage Assessment: 00:16 General: Appears uncomfortable, Behavior is calm, cooperative. Pain: Denies pain. EENT: rv No signs and/or symptoms were reported regarding the EENT system. Neuro: Level of Consciousness is awake, alert, obeys commands, Oriented to person, place, time, situation. Cardiovascular: Patient's skin is warm and dry. Respiratory: Reports shortness of breath on exertion Airway is patent Onset: The symptoms/episode began/occurred gradually, the patient has mild shortness of breath. Respiratory: Breath sounds are coarse bilaterally. Derm: Skin is intact. Historical: - PMHx: 00:16 Hypertension; Diabetes - NIDDM; Dialysis; rv - PSHx: 00:16 None; rv - Immunization history:: Adult Immunizations up to date. - Social history:: Smoking status: Patient reports the use of cigarette tobacco products, smokes one-half pack cigarettes per day, Patient/guardian denies using alcohol, street drugs, The patient lives with family. - Family history:: not pertinent. Screenin:17 Abuse screen: Denies threats or abuse. Denies injuries from another. Nutritional rv screening: No deficits noted. Tuberculosis screening: No symptoms or risk factors identified. Fall Risk None identified. Assessment: 00:18 Respiratory: Respiratory effort is even, unlabored. rv 06:02 Cardiovascular: Rhythm is regular. rv Vital Signs: 00:13 BP 228 / 96; Pulse 87; Resp 21; Temp 98.2; Pulse Ox 97% on R/A; Weight 76 kg; rv 03:41 BP 198 / 85; Pulse 74; Resp 18; Pulse Ox 99% on R/A; rv 04:00 BP 221 / 92; Pulse 80; Resp 17; Pulse Ox 96% on R/A; rv 05:00 BP 198 / 77; Pulse 76; Resp 20; Pulse Ox 95% on R/A; rv 05:30 BP 201 / 75; Pulse 74; Resp 20; Pulse Ox 96% on R/A; rv 06:01 BP 188 / 75; Pulse 73; Resp 20; Pulse Ox 96% on R/A; rv ED Course: 02/23 23:46 Patient arrived in ED. am2 23:46 Rajendra Montoya MD is Private Physician. am2 23:48 Jose Lloyd RN is Primary Nurse. rv 12 00:12 Sen Bear MD is Attending Physician. ma2 00:15 Triage completed. rv 00:17 Arm band placed on right wrist. Patient placed in the treatment room, on a stretcher, rv Patient notified of wait time. 00:18 Patient has correct armband on for positive identification. Pulse ox on. NIBP on. rv 00:38 Initial lab(s) drawn, by tx, sent to lab. Inserted saline lock: 20 gauge in right rv forearm, using aseptic technique. Blood collected. 01:46 Ryan Ward MD is Hospitalizing Provider. ma2 05:59 No provider procedures requiring assistance completed. IV is patent, with fluids rv infusing freely, Patient admitted, IV remains in place. Administered Medications: 00:44 Drug: Labetalol 10 mg Route: IVP; Infused Over: 2 mins; Site: right forearm; rv 04:13 Follow up: Response: Blood pressure is unchanged rv 01:46 CANCELLED (Physician Discretion): Albuterol 2.5 mg Inhalation every 20 minutes x3 rv 01:58 Drug: Dodge 10 mg-325 mg 1 tabs Route: PO; rv 04:14 Follow up: Response: No adverse reaction rv 01:59 Drug: Calcium Gluconate 1 grams Route: IVPB; Infused Over: 60 mins; Site: right forearm;rv 02:30 Follow up: IV Status: Completed infusion; IV Intake: 100ml rv 01:59 Drug: Gabapentin 300 mg Route: PO; rv 04:13 Follow up: Response: No adverse reaction rv 02:30 Drug: Insulin Regular Human 10 units {Co-Signature: ovidio (Adeline Rosas RN).} Route: IVP; rv Site: right forearm; 04:13 Follow up: Response: No adverse reaction rv 02:30 Drug: D50W 50 ml Route: IVP; Site: right forearm; rv 04:13 Follow up: Response: No adverse reaction rv 02:44 Drug: Kayexalate 45 grams Route: PO; rv 04:13 Follow up: Response: No adverse reaction rv 03:41 Drug: hydrALAZINE 10 mg Route: IV; Rate: calculated rate; Site: right forearm; rv 06:03 Follow up: Response: Blood pressure is lowered; IV Status: Completed infusion rv 05:03 Drug: cloNIDine 0.2 mg Route: PO; rv 06:03 Follow up: Response: Blood pressure is lowered rv 05:04 Drug: carvedilol 6.25 mg Route: PO; rv 06:03 Follow up: Response: Blood pressure is lowered rv Intake: 02:30 IV: 100ml; Total: 100ml. rv Outcome: 01:46 Decision to Hospitalize by Provider. ma2 06:02 Admitted to Tele accompanied by nurse, via wheelchair, room 407, Other sbar, ekg rv 06:02 Condition: good 06:02 Instructed on the need for admit, Demonstrated understanding of instructions. 06:03 Patient left the ED. rv Signatures: Lissett Car Mohammad, MD MD ma2 Vicente, Ronaldo, RN RN rv Adeline Rosas RN, ea
[2020-02-25] MEDS ORDERED: HYDROCODONE/APAP 10/325 TAB ONE (02:03)
[2020-02-25] MEDS ORDERED: INSULIN -REGULAR HUMAN 50 UNIT/0.5 ML ML ONE (02:04)
[2020-02-25] MEDS ORDERED: GABAPENTIN 300 MG CAP ONE (02:04)
[2020-02-25] MEDS ORDERED: D50W 50 ML IV ONE (02:05)
[2020-02-25] MEDS ORDERED: CALCIUM GLUCONATE 1 GM IVPB 1 GM/50 ML BAG IV ONE (02:05)
[2020-02-25] MEDS ORDERED: SOD POLYSTYREN SUL 15 GM/60 ML UCUP ONE (02:05)
--- NOTE | 2020-02-25 02:36 | P.HP ---
Certification for Inpatient Patient admitted to: Observation With expected LOS: <2 Midnights Patient will require the following post-hospital care: None Practitioner: I am a practitioner with admitting privileges, knowledge of patient current condition, hospital course, and medical plan of care. Services: Services provided to patient in accordance with Admission requirements found in Title 42 Section 412.3 of the Code of Federal Regulations <Sixto Kramer - Last Filed: 02/25/20 02:37> Patient History Date of Service: 02/25/20 Primary Care Provider: Dr. Montoya, Dr. Rand Reason for admission: Hyperkalemia History of Present Illness: 64-year-old male with history of end-stage renal disease on hemodialysis Monday, diabetes mellitus type 2, hypertension, COPD presents the emergency department for shortness of breath and hypertension. Patient reports that he has recently switched to Monday dialysis and when he went on Monday he only completed 1 hour or due to having restless legs. Patient was initially hypertensive with blood pressure systolic greater than 200 and tachypneic, serum potassium also noted to be elevated at 6.3. ED provider called nephrology Dr. Frank will arrange for patient to receive dialysis in the morning. Patient not hypoxic or requiring oxygen at this time. Hemoglobin 10.9 hematocrit 33.9 potassium 6.3 no significant EKG changes noted patient given Kayexalate, insulin, dextrose, calcium in the emergency department . Albuterol was deferred due to patient's positive COVID status. Patient reports that he had routine screening testing performed approximately 1 week prior in tested positive for COVID at that time. Patient denies any symptoms of COVID. Patient also noted to have diabetic ulcer to the left medial ankle that is being followed by wound healing Center. When I saw the patient in the ER he was awake, alert, oriented x3. Mildly tachypneic but much more concerned with his back and leg pain at this time. Patient was hypertensive even after labetalol that he received a blood pressure around 180 systolic. Patient will be admitted for further evaluation and management. - Past Medical/Surgical History Diabetic: Yes -: Hepatitis-C (cured) -: HTN -: Hyperlipidemia -: Chronic pain -: Chronic anemia -: End-stage renal disease on hemodialysis (TTS) -: Diabetes mellitus type 2 -: Left knee replacement -: ankle heel spur removed -: Leftankle surgery -: toe surgery -: back surgery -: TENS implant -: Left femur Psychosocial/ Personal History: Patient is . He has 2 children - Family History Sister -: Diabetes, Cancer Notes: colon ca Brother -: Hypertension, Diabetes dad -: Hypertension Notes: Colostomy mom -: Hypertension, Cancer Notes: dementia, Breast Cancer - Social History Smoking Status: Current every day smoker Counseled patient to stop smoking for: less than 10 minutes Smoking therapy provided: Yes Alcohol use: No CD- Drugs: No Caffeine use: Yes <Sixto Kramer - Last Filed: 02/25/20 02:37> Date of Service: 02/25/20 <Ryan Ward - Last Filed: 02/25/20 21:11> Allergies No Known Drug Allergies Allergy (Mild, Verified 02/25/20 07:41) Unknown Home Medications: RX: Aspirin Chewable [Aspirin Chewable*] 81 mg PO DAILY 11/09/19 RX: Bumetanide [Bumex*] 2 mg PO DAILY 11/09/19 RX: Clonidine HCl [Catapres*] 0.2 mg PO BID 11/09/19 RX: Doxazosin Mesylate [Cardura] 2 mg PO DAILY 11/09/19 RX: Gabapentin [Neurontin*] 300 mg PO DAILY 11/09/19 RX: Hydrocodone Bit/Acetaminophen [Hydrocodon-Acetaminophn 10-325] 1 tab PO QIDP PRN 11/09/19 RX: Pravastatin Sodium [Pravachol] 40 mg PO DAILY 11/09/19 RX: Tizanidine HCl [Zanaflex] 4 mg PO BID 11/09/19 RX: carvediloL [Coreg*] 6.25 mg PO BID 11/09/19 RX: Clopidogrel Bisulfate [Plavix*] 1 tab PO DAILY 02/25/20 RX: Lactulose [Cephulac*] 20 ml PO DAILY 02/25/20 RX: levoFLOXacin [Levofloxacin] 1 tab PO SEECOM 02/25/20 Review of Systems 10-point ROS is otherwise unremarkable Respiratory: Cough, Shortness of Breath Musculoskeletal: Leg Pain <Sixto Kramer - Last Filed: 02/25/20 02:37> Physical Examination - Physical Exam General: Alert, In no apparent distress, Oriented x3 HEENT: Atraumatic, Normocephalic, Mucous membr. moist/pink Neck: Supple Respiratory: Crackles/rales Cardiovascular: Normal pulses, Regular rate/rhythm, Normal S1 S2 Capillary refill: <2 Seconds Gastrointestinal: Normal bowel sounds, No ascites, No tenderness, No masses Musculoskeletal: No contractures, No erythema, No tenderness Integumentary: Diabetic ulcer (Left medial ankle) Neurological: Normal speech, Normal strength at 5/5 x4 extr, Normal tone, Sensation intact - Studies Laboratory Data (last 24 hrs) 02/25/20 00:38: PT 11.5, INR 0.97 02/25/20 00:38: WBC 7.3, Hgb 10.9 L, Hct 33.9 L, Plt Count 179 02/25/20 00:38: Sodium 138, Potassium 6.3 H*, BUN 76 H, Creatinine 10.60 H*, Glucose 142 H 02/25/20 00:15: PT Cancelled, INR Cancelled 02/25/20 00:15: WBC Cancelled, Hgb Cancelled, Hct Cancelled, Plt Count Cancelled 02/25/20 00:15: Sodium Cancelled, Potassium Cancelled, BUN Cancelled, Creatinine Cancelled, Glucose Cancelled <Sixto Kramer - Last Filed: 02/25/20 02:37> - Studies Laboratory Data (last 24 hrs) 02/25/20 00:38: PT 11.5, INR 0.97 02/25/20 00:38: WBC 7.3, Hgb 10.9 L, Hct 33.9 L, Plt Count 179 02/25/20 00:38: Sodium 138, Potassium 6.3 H*, BUN 76 H, Creatinine 10.60 H*, Glucose 142 H 02/25/20 00:15: PT Cancelled, INR Cancelled 02/25/20 00:15: WBC Cancelled, Hgb Cancelled, Hct Cancelled, Plt Count Cancelled 02/25/20 00:15: Sodium Cancelled, Potassium Cancelled, BUN Cancelled, Creatinine Cancelled, Glucose Cancelled <Ryan Ward - Last Filed: 02/25/20 21:11> Assessment and Plan - Plan Assessment Hyperkalemia and volume overload secondary to ESRD on HD TTS with noncompliance Hypertension-uncontrolled Diabetes mellitus type 2 COPD Chronic pain Diabetic ulcer left medial ankle COVID + Plan Hyperkalemia and volume overload secondary to ESRD on HD TTS with noncompliance: Nephrology contacted while patient was in the emergency department, potassium 6.3 patient given potassium cocktail. Plan for dialysis in the morning. Cat santos does not make urine and therefore cannot be diuresed. Appreciate further input from nephrology. Repeat BMP with morning labs. Hypertension-uncontrolled: Obtain and continue home medications, p.r.n. medications at this time. Diabetes mellitus type 2: A.c. HS Accu-Cheks, sliding scale insulin therapy. COPD: Obtain and continue home medications. Patient is COVID positive at this time so no nebulizers. Chronic pain: Home medication hydrocodone continued. Diabetic ulcer left medial ankle: Nothing acute, continue to follow with wound healing. COVID +: Appears to be in still finding during routine screening. Patient without any COVID symptoms at this time. Continue to monitor. Place on 4th floor. Patient already has arrangements with dialysis. Discharge Plan: Home Plan to discharge in: 24 Hours - Advance Directives Does patient have a Living Will: No Does patient have a Durable POA for Healthcare: No - Code Status/Comfort Care Code Status Assessed: Yes (Full code) Critical Care: No Time Spent Managing Pts Care (In Minutes): 55 <Sixto Kramer - Last Filed: 02/25/20 02:37> - Plan Plan of care reviewed and agree with plan as noted by Sixto Kramer above. Likely dc after dialysis, nephrology consulted SW/ CM consulted to ensure COVID+ chair time for patient <Ryan Ward - Last Filed: 02/25/20 21:11>
[2020-02-25] MEDS ORDERED: cloNIDine HCL 0.1 MG TAB ONE (05:11)
[2020-02-25] MEDS ORDERED: carvediloL 6.25 MG TAB ONE (05:11)
[2020-02-25] MEDS ORDERED: HYDRALAZINE HCL 25 MG TABLET ONE (05:19)
[2020-02-25] MEDS ORDERED: ONDANSETRON 4 MG/2 ML VIAL IV PRN (06:27)
[2020-02-25] MEDS ORDERED: TIZANIDINE 4 MG TABLET PO PRN (06:27)
[2020-02-25] MEDS ORDERED: HYDROCODONE/APAP 10/325 TAB PO PRN (06:27)
[2020-02-25] MEDS ORDERED: SOD POLYSTYREN SUL 15 GM/60 ML UCUP PO ONE (06:28)
[2020-02-25 06:37] VITALS: BMI 28.7
[2020-02-25] MEDS: INSULIN -REGULAR HUMAN 50 UNIT/0.5 ML ML SQ SCH ×3 (07:30→16:14)
--- NOTE | 2020-02-25 07:55 | RAD REPORT ---
EXAM DESCRIPTION: Kiana Single View02/25/2020 2:58 am CLINICAL HISTORY: Congestion COMPARISON: November 2019 FINDINGS: The lungs appear clear of acute infiltrate. The heart is mildly to moderately enlarged. Upper lobe vessels are prominent indicative of pulmonary venous hypertension
[2020-02-25 08:12] LABS: Potassium 5.4 mmol/L (3.5-5.1)
[2020-02-25] MEDS ORDERED: GABAPENTIN 300 MG CAP PO SCH (09:00)
[2020-02-25] MEDS: HYDRALAZINE HCL 20 MG/ML VIAL IV PRN ×2 (11:59→12:44)
--- NOTE | 2020-02-25 12:04 | P.CNS ---
Date of Consult: 02/25/20 Reason for Consult: ESRD , hyperkalemia Primary Care Provider: Dr. Montoya, Dr. Rand Chief Complaint: Hyperkalemia History of Present Illness: 64-year-old gentleman, past medical history of end-stage renal disease, on dialysis Monday, Monday, Monday at [facility] hemod[facility] via Lt AVF , diabetes complicated with neuropathy and nephropathy, hepatitis C pt presneted for SOB pt was recently diagnosed with COVID change his schedule to TTSat last HD , he did treatment for only one hour and left AMA due to leg pain Review of Systems: Head and Neck: No red eye. No ear pain. GI: No nausea, no vomiting. : No polyuria, no dysuria, no hematuria. Ditch Rider: Not applicable. Respiratory: No shortness of breath. Cardiovascular: No chest pain. Endocrine: No polydipsia. Skin: No rash. Neuro: Has neuropathy. Musculoskeletal: chronic back pain . Physical exam general: AAOX3, NAD , obese Neck; Supple, No elevated JVD hear: RRR, normal S1,2 no murmur or rub Chest: CTAB, no raaes or wheezes Abdomen: Soft , Nt Extremities trace edema A/P ESRD on HD MWF HD today then MWF renal dose meds fluid overload HD today not on oxygen Anemia of chronic disease no need for epogen HTN cont current meds hypernatremia JOHNNIE today total time spent 35min Allergies No Known Drug Allergies Allergy (Mild, Verified 02/25/20 07:41) Unknown Home Medications: Aspirin Chewable [Aspirin Chewable*] 81 mg PO DAILY 11/09/19 Bumetanide [Bumex*] 2 mg PO DAILY 11/09/19 Clonidine HCl [Catapres*] 0.2 mg PO BID 11/09/19 Doxazosin Mesylate [Cardura] 2 mg PO DAILY 11/09/19 Gabapentin [Neurontin*] 300 mg PO DAILY 11/09/19 Hydrocodone Bit/Acetaminophen [Hydrocodon-Acetaminophn 10-325] 1 tab PO QIDP PRN 11/09/19 Pravastatin Sodium [Pravachol] 40 mg PO DAILY 11/09/19 Tizanidine HCl [Zanaflex] 4 mg PO BID 11/09/19 carvediloL [Coreg*] 6.25 mg PO BID 11/09/19 Clopidogrel Bisulfate [Plavix*] 1 tab PO DAILY 02/25/20 Lactulose [Cephulac] 20 ml PO DAILY 02/25/20 levoFLOXacin [Levofloxacin] 1 tab PO SEECOM 02/25/20 - Past Medical/Surgical History Diabetic: Yes -: Hepatitis-C (cured) -: HTN -: Hyperlipidemia -: Chronic pain -: Chronic anemia -: End-stage renal disease on hemodialysis (TTS) -: Diabetes mellitus type 2 -: Left knee replacement -: ankle heel spur removed -: Leftankle surgery -: toe surgery -: back surgery -: TENS implant -: Left femur Psychosocial/ Personal History: Patient is . He has 2 children - Family History Sister Medical History: Diabetes, Cancer Notes: colon ca Brother Medical History: Hypertension, Diabetes dad Medical History: Hypertension Notes: Colostomy mom Medical History: Hypertension, Cancer Notes: dementia, Breast Cancer - Social History Smoking Status: Unknown if ever smoked Alcohol use: No CD- Drugs: No Caffeine use: No Place of Residence: Home Physical Examination Temp Pulse Resp BP Pulse Ox 97.1 F 74 16 138/65 93 02/25/20 08:00 02/25/20 08:00 02/25/20 08:00 02/25/20 08:00 02/25/20 08:00 Laboratory Data (last 24 hrs) 02/25/20 00:38: PT 11.5, INR 0.97 02/25/20 00:38: WBC 7.3, Hgb 10.9 L, Hct 33.9 L, Plt Count 179 02/25/20 00:38: Sodium 138, Potassium 6.3 H*, BUN 76 H, Creatinine 10.60 H*, Glucose 142 H 02/25/20 00:15: PT Cancelled, INR Cancelled 02/25/20 00:15: WBC Cancelled, Hgb Cancelled, Hct Cancelled, Plt Count Cancelled 02/25/20 00:15: Sodium Cancelled, Potassium Cancelled, BUN Cancelled, Creatinine Cancelled, Glucose Cancelled
--- NOTE | 2020-02-25 12:41 | EKG ---
Test Date: 2020-02-25 Test Time: 00:27:11 Repairer Pump: RV MEASUREMENT RESULTS: Intervals: Rate: 81 MN: 144 QRSD: 94 QT: 412 QTc: 478 [place]: P: 63 MN: 144 QRS: -23 T: 104 INTERPRETIVE STATEMENTS: Sinus rhythm with premature atrial complexes Nonspecific ST and T wave abnormality Prolonged QT Abnormal ECG Compared to ECG 11/08/2019 20:15:18 Atrial premature complex(es) now present Prolonged QT interval now present ST (T wave) deviation still present Electronically Signed On 02-25-20 12:39:30 MID TEACHER by Jose Francisco Mckeon
[2020-02-25 12:43] VITALS: O2SAT 96
[2020-02-25 16:45] VITALS: BP 158/67; TEMP 97.6
--- NOTE | 2020-03-02 06:09 | PN ---
Date of Progress Note: 01/16/2020 The patient returned to wound clinic for evaluation of the left medial ankle grade 4 diabetic ulcer, which measures 3.9 x 3.6 x 0.2 cm, actually had decreased slightly in size from his last visit. He a lso had a grade 2 diabetic ulcer of the left lateral great toe, which has now healed. His left media l ankle wound was debrided using a curette down to subcutaneous tissue. Bleeding was moderate, contr olled with pressure, he tolerated it well, and a bioengineered skin substitute TheraSkin was applied, anticipate using 10 applications. This was the first one, amount used is 23 mm, amount wasted was 1 6. The treatment to be accompanied by adjunctive wound care including dressing changes and compressi on dressings and TheraSkin remains in place for a week, covered by foam, Kerlix, and Coban, and he is to return to clinic for evaluation in 1 week. HR/MODL Voice ID: [id number] Report ID: [id number]
== END 2020-02-25 17:43 | disposition home or self-care (01) ==
LOC: ER 23:44 → ERHOLD 02-25 02:06 → 4TH 02-25 05:41
PROVIDERS: ADMIT Hospitalist; ATTEND Hospitalist
DX: U07.1 COVID-19 (principal); E11.22 Type 2 diabetes mellitus with diabetic chronic kidney disease; N18.6 End stage renal disease; Z99.2 Dependence on renal dialysis; E11.40 Type 2 diabetes mellitus with diabetic neuropathy, unspecified; E87.5 Hyperkalemia; D63.1 Anemia in chronic kidney disease; I12.0 Hypertensive chronic kidney disease with stage 5 chronic kidney disease or end stage renal disease; E87.0 Hyperosmolality and hypernatremia; Z79.02 Long term (current) use of antithrombotics/antiplatelets; E78.5 Hyperlipidemia, unspecified; G89.29 Other chronic pain; Z96.652 Presence of left artificial knee joint; E11.621 Type 2 diabetes mellitus with foot ulcer; E11.622 Type 2 diabetes mellitus with other skin ulcer; L97.329 Non-pressure chronic ulcer of left ankle with unspecified severity; L97.529 Non-pressure chronic ulcer of other part of left foot with unspecified severity; E66.9 Obesity, unspecified; J44.9 Chronic obstructive pulmonary disease, unspecified; Z91.19 Patient's noncompliance with other medical treatment and regimen; F17.210 Nicotine dependence, cigarettes, uncomplicated; R94.31 Abnormal electrocardiogram [ECG] [EKG]
CPT/HCPCS: 96365; 96367; 93005; 87070; 85025; 80048 ×2; 36415; 87205; 85610; 82947 ×3; 71045; 90935; 96375; 99285; 96366; U0003; J0360; J0610

== ENCOUNTER 2020-03-23 14:36 | Emergency (ER) | payer OTHER ==
--- OUTSIDE RECORDS SUMMARY | 2020-03-23 14:48 | XMS REPORT | Clinical Summary ---
:1955 Author Organization [facility] Address [address] [place] [address] Care Team Providers Name Role Phone Asked, [...] General Surgery Sameer Donohue MD Cheema, Ivelisse, OFFICE MANAGER EXECUTIVE ASSISTANT 12/09/2019 Surgery General Surgery Shayna, AORTOGRAM, L EFT RENAL MD Martita ARTERY STENT PL ACEMENT AND BALLOON ANGIOPLASTY. 12/09/2019 - Hospital Encounter General Internal Lamberto Corral 12/10/2019 Medicine MD Martita atherosclerotic renal Kayode Sallinda artery stenosis (HCC) MD Chiara (Primary [...] Martita End stage renal disease (HCC) after 03/23/2019 Surgical History Surgery Date Site/Laterality Comments CREATION, AV FISTULA Left BACK SURGERY ANKLE SURGERY Left JOINT REPLACEMENT Left TKA LEFT FEMUR SURGERY Left SPINAL CORD STIMULATOR IMPLANT COLONOSCOPY AORTOGRAPHY, POSSIBLE 12/09/2019 Left Procedure: AORTOGRAM, LEFT ANGIOPLASTY RENAL ARTERY SHAYNA NT PLACEMENT AND BALLOON DAKSHA OPLASTY.; Surgeon: Martita Head MD; Location: [facility] Main OR; Service: Cardio thoracic; Laterality: Left ; Medical devices from this surgery are in t he Implants section. Medical History Medical History Date Comments ESRD (end stage renal disease) ([facility]) Prediabetes Hypercholesteremia Hypertension Dialysis patient ([facility]) MWF FISTULA L-ARM Limb alert care status LEFT ARM PER PT Need for immunization follow-up NEED NEW FLU SHOT PER PT Exercise tolerance finding NO FORMAL EXE RCISE WALKS AROUND THE HOUSE DENIES CP OR SOB DOES PT FOR BROKEN FEMUR PER PT COPD (chronic obstructive pulmonary disease) (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 gonzalez PM CDT Pulse 69 [...] 08/29/1967 DIABETIC FOOT EXAM 08/29/1967 COVID-19 VACCINE (1 of 2) 1973 COLONOSCOPY SCREENING 08/29/2007 SHINGLES VACCINES (#1) 08/29/2007 INFLUENZA VACCINE 10/05/2019 Implants Implanted Type Area [employer] Justice Device Shelf Model / Identifier Expiration Serial / Date Lot Stent Renal Express Sd Prmntd Андрей 5x15mm Metal - [id number] Amy pheral or Left: BSC PERIPHERAL 01/13/2022 [id number] / Implanted: Qty: 1 on 12/09/2019 by Martita Corral MD at [facility] Biliary Artery, INTERVENTION / Stents Renal VASCULAR DRISS [id number] Device Vascular Closure Vascade 6/7fr - [id number] Surgical N/A: N/A [employer] 09/02/2021 [id number] / Implanted: Qty: 1 on 12/09/2019 at [facility] Implants; I NC / Expanders; [id number] Extenders; Surgical Wires Procedures Procedure Name [...] procedure are i n the results section. OR AN ELECTIVE Routine 12/09/2019 1:56 Results f [...] are i n the results section. after 03/23/2019 Results ECG 12 lead (12/10/2019 2:01 PM CDT) Pathologist Sig nature Ventricular rate 70 [facility] Atrial rate 70 [facility] M[facility] OR interval 144 [facility] QRSD interval 92 [...] Signed By Ector Alatorre MD ([id number]) on H MUSE 12/10/2019 4:17:44 PM Specimen Narrative Performed At This result has an attachment that is no t available. Performing Organization Address City/State/ZIP Code Phon e Number [facility] MUSE [address] [place] [address] Troponin (12/10/2019 12:50 PM CDT) Troponin 0.045 (H) 0.000 - 0.040 [facility] Comment: ng/mL [facility] In patients suspected of having a [...] Organization Address City/State/ZIP Code Phon e Number [facility] DEPARTMENT OF PATHOLOGY [address] [facility] [address] AND GENOMIC MEDICINE [facility] [address] [facility] [address] HOSPITAL Estimated GFR (12/10/2019 5:33 AM CDT)Only the most recent of2 resultswithin the time period is included. Estimated GFR 10 (A) mL/min/1.73 [facility] Comment: m2 [place] Catergory Units Interpretation HOS PITAL G1 >=90 [...] published in 2014. Specimen Performing Organization Address [facility] Phon e Number [facility] DEPARTMENT OF PATHOLOGY [address] [facility] [address] [address] [facility] [id number] [place] [id number] [place] [address] Basic metabolic panel (12/10/2019 5:33 AM CDT) Pathologist Sig nature Sodium 135 135 - 148 mEq/L [facility] Potassium 4.6 3.5 - 5.0 mEq/L [facility] Chloride 97 (L) 98 - 112 mEq/L [facility] CO2 25 24 - 31 mEq/L [facility] Anion gap 13@ANIO 7 - 15 mEq/L [facility] BUN 33 (H) 8 - 23 mg/dL [facility] Creatinine 5.39 (H) 0.70 - 1.20 mg/dL [facility] Glucose 182 (H) 65 - 99 mg/dL [facility] Calcium 9.0 8.8 - 10.2 mg/dL [facility] Specimen Blood Performing Organization Address [facility] Phon e Number [facility] DEPARTMENT OF PATHOLOGY [address] [facility] [address] AND [facility] [address] [facility] [address] HOSPITAL [place] < 1 Hour (12/09/2019 [...] Address City/State/ZIP Code Phon e Number [facility] [address] [place] [address] Hepatitis B surface Ab, quantitative (12/09/2019 7:13 [...] to MMWR February 25, 2005/Vol. 54 (No. 16);-, and for healthcare workers refer to MMWR [...] and Tissue-Based Products (HCT/P) . Performed By: [employer] [address] [place] [address] Certified Lactation Counselor: Tania Raymond MD Specimen Serum Performing Organization Address City/[facility]/ZIP Code Phon e Number [facility] [address] [place] [address] [facility] [address] [place] [address] Hepatitis B surface antibody (12/09/2019 7:13 PM CDT) Pathologist Sig nature Hepatitis B surface Reactive (A) Non-reactive [facility] Specimen Performing Organization Address City/[facility]/ZIP Code Phon e Number [facility] DEPARTMENT OF PATHOLOGY AND [address] [place], [place] [address] [facility] [address] [place] [address] Hepatitis B surface antigen (12/09/2019 7:13 PM CDT) Pathologist Sig nature Hepatitis B surface Non-reactive Non-reactive [facility] Ag [facility] Specimen Blood Performing Organization Address City/[facility]/ZIP [facility] Phon e Number [facility] DEPARTMENT OF PATHOLOGY [id number] [place] [address] AND [facility] [id number] [place] [address] X [address] [facility] POC glucose (12/09/2019 4:02 PM CDT)Only the most recent of2 resultswithin the time period is included. Pathologist Sig nature POC glucose 128 (H) 65 - 99 mg/dL [facility] Comment: [facility] Insurance Biller Name: [employer]ovill[employer] Ray Device ID: [id number] Specimen Blood Performing Organization Address [facility] Phon e Number [facility] DEPARTMENT OF PATHOLOGY [id number] [place] [address] AND [facility] [address] [place] [address] [facility] Airway (12/09/2019 1:56 PM CDT) Narrative Performed At Antonieta Lawrence CRNA 12/09/2019 1:57 PM Airway Date/Time: 12/09/2019 1:57 PM Performed by: Antonieta Lawrence CRNA Authorized by: Sameer Donohue MD Location: OR Urgency: Elective Difficult Airway: No Anesthesiologist: Sameer Donohue MD Resident/SIGN LANGUAGE INTERPRETER/AA: Antonieta Lawrence CRNA Performed by: resident/SIGN LANGUAGE INTERPRETER/AA Preoxygenated with 100% O2: Yes C-spine Precautions Maintained Throughou t: Yes Mask Ventilation: Not attempted Final Airway Type: Supraglottic airway Final LMA: I-Gel LMA Size: 4 Number of Attempts at Approach: 1 POC panel (12/09/2019 10:37 AM CDT) POC sodium 134 (L) 135 - 148 [facility] mmol/L [facility] POC potassium 5.7 (H) 3.5 - 5.0 [facility] mmol/L [facility] POC glucose 121 (H) 65 - 99 mg/dL [facility] Comment: [place] Insurance Biller Name: [facility] Device ID: [id number] POC hemoglobin 10.2 (L) 14.0 - 18.0 [facility] g/dL [facility] POC hematocrit 30 (L) 41 - 51 % [facility] Specimen Blood Performing Organization Address City/[facility] Code Phon e Number [facility] DEPARTMENT OF PATHOLOGY [id number] [place] [address] [place] [address] HOSPITAL Type and screen (12/09/2019 10:32 AM CDT) Pathologist Sig nature ABO grouping O [facility] Rh type POS [facility] Antibody screen (gel) NEG [facility] Specimen Blood Performing Organization Address [facility] Phon e Number [facility] DEPARTMENT OF PATHOLOGY [address] [place] [address] [address] [place] [address] [facility] Comprehensive metabolic panel (12/09/2019 10:32 AM CDT) Sodium 134 (L) 135 - 148 [facility] mEq/L [facility] Potassium 6.0 (HH) 3.5 - 5.0 [facility] Comment: mEq/L [place] Final results called to and read back by Albin Mason o/RIGO. [facility] 12/09/2019 11:07 CBJ No hemolysis. Chloride 97 (L) 98 - 112 [facility] mEq/L [facility] CO2 22 (L) 24 - 31 mEq/L [facility] Anion gap 15@ANIO 7 - 15 mEq/L [facility] BUN 56 (H) 8 - 23 mg/dL [facility] Creatinine 8.57 (H) 0.70 - 1.20 [facility] mg/dL [facility] Glucose 130 (H) 65 - 99 mg/dL [facility] Calcium 9.0 8.8 - 10.2 [facility] mg/dL [facility] Protein 6.7 6.3 - 8.3 [facility] g/dL [facility] Albumin 3.7 3.5 - 5.0 [facility] g/dL [facility] A/G ratio 1.2 0.7 - 3.8 [facility] Alkaline phosphatase 215 (H) 40 - 129 U/L [facility] AST 25 10 - 50 U/L [facility] ALT 13 5 - 50 U/L [facility] Total bilirubin 0.8 0.2 - 1.2 [facility] mg/dL [facility] Specimen Blood Performing Organization Address City/State/ZIP Code Phon e Number [facility] DEPARTMENT OF PATHOLOGY [address] [facility] [address] AND GENOMIC MEDICINE [facility] [address] [facility] [place] [address] HOSPITAL XR Chest 2 Vw (12/05/2019 1:38 [...] device seen overl giorgi the thoracic spine. [facility]-[id number] Dictated and approved by residential pest control technician/fellow: Geovanny Malik M.D. I, Daniel Abbott, personally [...] device seen overl giorgi the thoracic spine. [facility]-[id number] Dictated and approved by radiology resid ent/fellow: Joseph Malik M.D. I, Daniel Abbott, personally reviewed the images and resident's/fellow's findings and agree with the final report. Performing Organization Address [facility]/ZIP Code Phon e Number [facility] [address] [place] [address] ECG Pre/Post Op (12/05/2019 1:07 PM CDT) Pathologist Sig nature Ventricular rate 70 [facility] Atrial rate 70 [facility] M[facility] OR interval 136 [facility] QRSD interval 88 [facility] QT interval 434 [facility] QTC interval 468 [facility] P axis 1 29 [facility] QRS axis 1 -31 [facility] T wave axis 135 [facility] EKG impression Normal sinus [facility] rhythm-Possible Left atrial enlargement-Left axis deviation-Anterior infarct , age undetermined-Abnormal ECG-No previous ECGs available-Electronicall y Signed By Evelny Baker MD ([id number]) on 12/06/2019 12:44:11 AM Specimen Narrative Performed At This result has an attachment that is no t available. Performing Organization Address [facility] Phon e Number [facility] MUSE [address] [place] [address] Partial thromboplastin time, activated (12/05/2019 12:45 PM CDT) PTT 31.4 23.0 - 36.0 [facility] Comment: [facility] PTT therapeutic range for unfractionated heparin is HOSPITAL 61.0-112.0 seconds which corresponds to Anti-Xa 0.3-0.7 U/ml. Specimen Blood Performing Organization Address [facility] Phon e Number [facility] DEPARTMENT OF PATHOLOGY [address] [place] [address], X [address] AND [facility] [address] [facility] [place] [address] HOSPITAL Prothrombin time with INR (12/05/2019 12:45 PM CDT) Prothrombin time 14.5 11.5 - 14.5 [facility] sec [facility] INR 1.1 [facility] Comment: [facility] International Normalized Ratio (INR) is a therapeu [facility] monitoring tool for patients who are stable on oral anticoagulant therapy. An INR of 2.0-3.0 is suggested for deep vein thrombosis/pulmonary embolism. Specimen Blood Performing Organization Address [facility] Phon e Number [facility] DEPARTMENT OF PATHOLOGY [address] [place] [address], X [address] AND [facility] [address] [facility] [place] [address] [facility] COVID-19 qualitative PCR (12/05/2019 12:37 PM CDT) Interpretation Negative results do not prec lude 2019-nCoV infection and should not be used as the sole basis for treatment or other patient management decisions. Negative results must be combined with clinical observations, patient history, and epidemiological [facility] information. [facility] COVID-19 qualitative Not-Detected Not-Detecte [facility] PCR result d [facility] COVID-19 qualitative See link below for [facility] PCR PDF Lab [facility] ReportComment: Case HOSPITAL Number: [id number] Specimen Nasopharyngeal swab Performing Organization Address City/State/ZIP Code Phon e Number [facility] DEPARTMENT OF PATHOLOGY AND [address] [place] [address] [facility] [address] [place] [address] [facility] CBC with platelet and differential (12/05/2019 12:36 PM CDT) WBC 6.3 4.5 - 11.0 k/uL [facility] RBC 2.77 (L) 4.40 - 6.00 [facility] m/uL [facility] HGB 8.6 (L) 14.0 - 18.0 [facility] g/dL [facility] HCT 27.9 (L) 41.0 - 51.0 % [facility] MCV 100.7 (H) 82.0 - 100.0 fL [facility] MCH 31.0 27.0 - 34.0 pg [facility] MCHC 30.8 (L) 31.0 - 37.0 [facility] g/dL [facility] RDW - SD 56.1 (H) 37.0 - 55.0 fL [facility] MPV 10.0 6.9 - 11.0 fL [facility] Platelet count 165 150 - 400 K/uL [facility] Nucleated RBC 0.00 /100 WBC [facility] Neutrophils 59.6 39.0 - 69.0 % [facility] Lymphocytes 21.4 (L) 25.0 - 45.0 % [facility] Monocytes 8.7 0.0 - 10.0 % [facility] Eosinophils 8.5 (H) 0.0 - 5.0 % [facility] Basophils 1.3 (H) 0.0 - 1.0 % [facility] Immature granulocytes 0.5 0.0 - 1.0 % [facility] Specimen Blood Performing Organization Address City/State/ZIP Code Phon e Number [facility] DEPARTMENT OF PATHOLOGY [address] [facility] [address] AND [facility] [id number] [place] [id number] [place] [address] Hemoglobin A1c (12/05/2019 12:36 PM CDT) Hemoglobin A1C 5.6 4.0 - 5.6 % [facility] Comment: [place] HbA1c cutoffs for diagnosing diabetes: HO SPITAL [...] 1 diabetes. 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
--- OUTSIDE RECORDS SUMMARY | 2020-03-23 14:48 | XMS REPORT | Clinical Summary ---
:1955 Author Organization [facility] Address [address] [place] [address] Care Team Providers Name Role Phone Moiz [...] Coordination Note PCP- Rajendra ALONZO- Dr. Linares [phone] Problem Noted Date Acute respiratory failure with [...] OLIVER 04/08/2019 Telephone Transplant Belinda Leal Appointment after 03/23/2019 Immunizations Name Administration Dates Next Due PPD [...] Comments PNEUMOCOCCAL VACCINE 0-64 YRS (1 of - 08/29/1961 PPSV23) DIABETIC EYE EXAM 08/29/1967 DIABETIC FOOT EXAM 08/29/1967 URINE MICROALBUMIN 08/29/1967 MEDICARE ANNUAL WELLNESS (YEAR 2 or FIRST 03/07/2015 YEAR if no IPPE) COLON CANCER SCREENING ANNUAL FOBT 06/11/2016 06/12/2015, 0 06/12/2015 HEMOGLOBIN A1C 09/27/2016 03/30/2016, 01/20/2015 LIPID PANEL 03/30/2019 03/30/2016, 04/30/2015 INFLUENZA VACCINE (#1) 2019 DEPRESSION SCREENING (12+) 03/06/2020 Procedures Procedure Name Priority Date/Time Associated Diagnosis Comme nts SARS-COV2/RT-PCR Routine 10/04/2019 9:58 AM Resu lts for this ([facility]) CDT procedure are in the results section. SARS-COV2/RT-PCR Routine 09/30/2019 8:00 PM Resu lts for this ([facility]) CDT procedure are in the results section. after 03/23/2019 Results SARS-CoV2/RT-PCR ([facility]) (10/04/2019 9:58 AM CDT)Only the most recent of2 resultswithin the time period is included. SARS-COV2/RT-PCR Negative Not Detected, [facility] Negative, See [facility] external report CENTER for linked test SARS-COV-2 [facility] SUZI SENIOR PERFORMING LAB [facility] CENTER Specimen Other - Nasopharyngeal wall structure (b lexus structure) Narrative Performed At Negative result for this test determines that [facility] SARS-CoV-2 RNA was not present in the [...] the Act. Fact Sheet for Healthcare Providers: https://www.[employer].com/sites/default/files/pro duct/documents/Fact_Sheet_HC_Providers_Lyra_SA RS-CoV-2.pdf Fact Sheet for Healthcare Patients: https://www.[employer].com/sites/default/files/pro duct/documents/Fact_Sheet_Patients_Lyra_SARS-C oV-2.pdf Performing Laboratory: [address] [place] [address] Performing Organization Address City/State/Zipcode Phone Number [address] [address] CENTER after 03/23/2019 Insurance Payer Benefit Plan / Subscriber ID Effective Phone Address T ype Group Dates UNITED OPTUM [id number] Effective for Transp lants [facility] RESOURCES NON-UNITED MCR all dates NETWK - REPL MEDICARE MGD CARE TEXANPLUS TEXANPLUS HMO [id number] 2014-Cheo M viri Contracted ALL nt WELLCARE WELLCARE MAPS [id number] 2018-Prese MEDICARE MGD nt CARE (Home) [place] [address] Advance Directives For more information, please contact: [phone] Code Status Date Activated Date Inactivated Comments Full Code 03/30/2016 2:10 AM 04/11/2016 8:24 PM This code status was determined by: Patient Full Code 03/31/2015 10:13 AM 04/01/2015 12:55 AM This code status was determined by: Patient
--- OUTSIDE RECORDS SUMMARY | 2020-03-23 14:49 | XMS REPORT | Continuity of Care Document ---
:1955 Author Organization [facility] t Address [address] [place] [address] Care Team Providers Name Role Phone Moiz Montoya MD Primary Care Physician Jeannine CABALLERO Attending Clinician Chiara Headley MD Attending Clinician Chetan Donohue MD Attending Clinician Trae BERNAL Attending Clinician Radiology Attending Clinician Unavailable Pob, Lab Main Attending Clinician Unavailable Minnie LEIVA Attending Clinician Unavailable Elvis Attending Clinician Unavailable Christianne BOYD Attending Clinician Unavailable SALENA RUSSELL Attending Clinician Unavailable SWETHA PISANO Attending Clinician Unavailable LEANA KHALIL Attending Clinician Unavailable INGRIS DANIELSON Attending Clinician Unavailable ESMER KERN Attending Clinician Unavailable AIMEE Admitting Clinician Unavailable THEODORE WEIR Admitting Clinician Unavailable Payers Payer Name Policy Type Policy Effective Expiration Source Number Date Date TEXANPLUSTEXANPLUS [id number] 2019 [place] [id number] 2020-Pr 00:00:00 M ethodist esentHMO [facility] NETWK [id number] [facility] - MEDICARE MGD - Medical CAREOPTUM NON-[facility] MCR [id number] for all datesTransplants TEXANPLUSTEXANPLUS O [id number] [facility] [id number] 2015-Pr 00:00:00 - Medical esentMaps Contracted Cent er WELLCARE MEDICARE MGD [id number] [facility] CAREWELLCARE 00:00:00 - Medical [id number] 2019-P C enter resent Problems Condition Condition [...] ge pain Pain 5-18 Family 00:00: Practic e Type 2 Type 2 Problem Active [facility] diabetes Diabetes 5-18 Family mellitus Mellitus 00:00: Practi c with with 00 e multiple Multiple complicati Complicati ons ons Chronic Chronic Problem Active [facility] hepatitis Hepatitis 07 Fami ly C C 00:00: Practic 00 e 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 Renal - Family disease Disease 00:00: Practic 00 e [...] Disease Active Last [facility] hepatitis hepatitis -19 Assessmen L ukes - C virus C [...] Active Last [facility] syndrome syndrome 5-19 Assessguillaume Richards es - 00:00: t & Plan: Medical 00 With T2DM Center and hypertens ion, he meets criteria for metabolic syndrome. Managemen t per his PCP. Allergies, Adverse Reactions, Alerts Allergy Allergy Status Severity Reaction(s) Onset Inactive Treating Comm ents Source Name Type Date Date Clinician Crab Drug Active Itching Itching [facility] 1-26 [facility] mouth, [facility] - 00:[facility]: [facility] Medical 00 okay with Center shrimp/cr awfish Family History Family Member Diagnosis Comments Start Date Stop Date Source Natural father Other [place] [facility] Natural mother Dementia [place] [facility] Social History Social Habit Start Date Stop Date Quantity Comments Source History of tobacco Cigarette Smoker [place] use [facility] Sex Assigned At [place] [facility] Cigarettes smoked 2019-12-10 2019-12-10 [place] current (pack per 00:00:00 00:00:[address] day) - Reported Tobacco use and 2019-12-10 2019-12-10 Never used [place] exposure 00:00:00 00:00:00 [facility] Alcohol intake 2019-12-10 2019-12-10 Ex-drinker [place] 00:00:00 00:00:00 (finding) [facility] Alcohol Comment 2015-07-23 2015-07-23 Quit drinking [facility] Mazakes - 00:00:00 00:00:00 2005; social Medical Cent er drinker Tobacco Comment 2015-03-31 2015-03-31 Quit 2006 [facility] Maza kes - 00:00:00 00:00:00 [facility] Smoking Status Start Date Stop Date Source Light Tobacco Smoker R[facility] Current every day 2019-12-10 00:00:00 [facility] thodist smoker Former smoker 2018-06-05 00:00:00 2018-06-05 00:00:00 [facility] Tiffanie [facility] Medications Ordered Filled Start Stop Current [...] .acute pain. ferric 2019-03 Yes Take by Nazario citrate 0-06 mouth. Methodi (AURYXIA 16:07: st [...] 30 MG 16:07: daily. st tablet clonIDINE 2019- Yes .2mg Q.5D Take 0.2 [place] HCl 0-06 mg by Methodi (CATAPRES) 16:07: mouth 2 st 0.2 MG 01 (two) tablet times a day. gabapentin 2019-03 Yes 100mg Q.[id number] Take 100 Lange (NEURONTIN) 0-06 [id number] mg by Harriet ethodi 100 mg 16:07: 3D mouth 3 st capsule 01 (three) times a day. calcium 2019-03 Yes Take by Nazario acetate 0-06 mouth. Methodi (PHOSLO 16:07: st ORAL) 01 pravastatin 2019-03 Yes 40mg QD Take 40 mg Nazario (PRAVACHOL) 0-06 by mouth Meth michelle 40 mg 16:07: daily. st tablet folic 2019-03 Yes Take by Nazario acid/vit B 0-06 mouth. Methodi complex and 16:07: st C 01 (CORAL-HAMIDA ORAL) tiZANidine 2019-03 Yes 4mg Q8H Take 4 mg [place] (ZANAFLEX) 0-06 by mouth Metho di 4 MG tablet 16:07: every 8 st 01 (eight) hours as needed for muscle spasms. calcium 2019-03 Yes Take by Nazario carbonate 0-06 mouth. Methodi (TUMS ORAL) 16:07: st 01 zolpidem 2019-03 Yes 10mg QD Take 10 mg Willie ston (AMBIEN) 10 0-06 by mouth Meth michelle mg tablet 16:07: nightly as st 01 needed for sleep. tamsulosin 2019-03 2020- No .4mg QD Take 0.4 [place] (FLOMAX) 0-01 10-01 mg by Methodi 0.4 mg 12:44: 00:[address] capsule 24 :00 daily. finasteride 2019-03 2020- No 5mg QD Take 5 mg Nazario (PROSCAR) 5 0-01 10-01 by mouth Met hodi mg tablet 12:44: 00:[address] 21 :00 tiZANidine 2019-03 2020- No 2mg Q8H Take 2 mg [place] (ZANAFLEX) 0-01 10-01 by mouth Meth michelle 2 MG tablet 12:43: 00:[address] 54 :00 (eight) hours as needed for muscle spasms. aspirin 81 2018- Yes 81mg QD Take [address] MG EC 4-02 by mouth [facility] - tablet 10:20: daily. Medical 33 Center amLODIPine Yes 10mg Take 10 mg C [...] tablet hours as needed for Pain. tiZANidine Yes 4mg Q.5D Take [address] (ZANAFLEX) 4-02 by mouth 2 Susie es - 4 MG tablet 10:18: (two) Medic al 27 times Center daily. gabapentin Yes 100mg Q.5D Take [address] (NEURONTIN) 4-02 mg by [facility] - 300 MG 10:18: mouth 2 Medical capsule 27 (two) Center times daily . clopidogrel Yes 75mg QD Take [address] (PLAVIX) 75 4-02 by mouth Luke s - mg tablet 10:18: daily. Medica l 27 Center lactulose Yes TAKE 20 [facility] (CHRONULAC) 3-26 GRAM [facility] - 10 gram/15 00:00: (30ML) BY Me dical mL solution 00 MOUTH ONCE Ce nter A DAY NEEDED zolpidem 0 Yes TAKE [address] [facility] (AMBIEN) 10 2-21 TABLET [facility] - mg tablet 00:00: ORALLY AT Med ical 00 BEDTIME Center NEEDED atorvastati Yes 20mg Take [address] n (LIPITOR) 4-26 by mouth. Susie es - 20 MG 00:00: Medical tablet 00 Center hydrALAZINE 2017-0 Yes 50mg Q.[id number] Take [address] (APRESOLINE 2-06 [id number] tablets [facility] - ) 25 MG 00:00: [...] route. carvedilol carvedilol No 1 BID carvedilol [facility] 6.25 mg 6.25 mg 6.25 mg Family tablet Take tablet Take tablet Practic 1 tablet 1 tablet Take 1 e twice a day twice a day tablet by oral by oral twice a route. route. day by oral route. clonidine clonidine No 1 BID clonidine [facility] HCl 0.2 mg HCl 0.2 mg HCl 0.2 mg Family tablet Take tablet Take tablet Practic 1 tablet 1 tablet Take 1 e twice a day twice a day tablet by oral by oral twice a route. route. day by oral route. gabapentin gabapentin No 1capsul TID gabapentin [facility] 100 mg 100 mg e(s) 100 mg Family capsule capsule capsule Practi c Take 1 Take 1 Take 1 e capsule 3 capsule 3 capsule 3 times a day times a day times a by oral by oral day by route. route. oral route. lactulose lactulose No 15mL Q1D lactulose [facility] 10 gram/15 10 gram/15 10 gram/15 Family mL (15 mL) mL (15 mL) mL (15 mL) Practic oral oral oral e solution solution solution Take 15 mL Take 15 mL Take 15 mL every day every day every day by oral by oral by oral route as route as route as directed. directed. directed. [place] 10 [place] 10 No 1 Q4H [place] 10 Milo tiffanie mg-325 mg mg-325 mg mg-325 mg Family tablet Take tablet Take tablet Practic 1 tablet 1 tablet Take 1 e every 4 every 4 tablet hours by hours by every 4 oral route oral route hours by as needed. as needed. oral route as needed. pravastatin pravastatin No 1 Q1D pravastati [facility] 40 mg 40 mg n 40 mg Family tablet Take tablet Take tablet Practic 1 tablet 1 tablet Take 1 e every day every day tablet by oral by oral every day route. route. by oral route. Renvela 800 Renvela 800 No 1 TID [place]a [place] mg tablet mg tablet 800 mg Fam traic Take 1 Take 1 tablet Practic tablet 3 tablet 3 Take 1 e times a day times a day tablet 3 by oral by oral times a route. route. day by oral route. Sensipar 30 Sensipar 30 No 1 Q1D Sensipar [facility] mg tablet mg tablet 30 mg Fami ly Take 1 Take 1 tablet Practic tablet tablet Take 1 e every day every day tablet by oral by oral every day route. route. by oral route. sildenafil sildenafil No 1 Q1D sildenafil [facility] 100 mg 100 mg 100 mg Family tablet Take tablet Take tablet Practic 1 tablet 1 tablet Take 1 e every day every day tablet by oral by oral every day route. route. by oral route. tizanidine tizanidine No 1 Q6H tizanidine [facility] 4 mg tablet 4 mg tablet 4 mg F amily Take 1 Take 1 tablet Practic tablet tablet Take 1 e every 6 every 6 tablet hours by hours by every 6 oral route oral route hours by as as oral route directed. directed. as directed. zolpidem 10 zolpidem 10 No 1 Q1D zolpidem [facility] mg tablet mg tablet 10 mg Fami ly Take 1 Take 1 tablet Practic tablet tablet Take 1 e every day every day tablet by oral by oral every day route at route at by oral bedtime. bedtime. route at bedtime. Immunizations Ordered Immunization Filled Immunization Date Status Commen ts Source Name Name pneumococcal pneumococcal 2019-01-04 Completed [facility] Fa alexia conjugate PCV 13 conjugate PCV 13 00:00:00 Pr actice influenza, influenza, 2019-01-04 [facility] Family injectable, injectable, 00:00:00 Practice quadrivalent quadrivalent PPD Test 2016-04-[address] [facility] 00:[facility] Center Vital Signs Vital Name Observation Time Observation Value Comments Source Height 2019-09-03 66 [in_i] [place] [facility] 00:00:00 Practice Height 2019-07-23 66 [in_i] [place] [facility] 00:00:00 Practice BMI (Body Mass 2019-07-23 25.8 kg/m2 [place] Famil y Index) 00:00:00 Practice Body Weight 2019-07-23 160 [lb_av] [place] [facility] 00:00:00 Practice Systolic blood 2019-12-10 206 mm[Hg] 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 Lisandro Lange pressure 14:40:00 aware [facility] Diastolic blood 2019-12-10 88 mm[Hg] 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 Thaoa leigha Lange pressure 14:40:00 aware [facility] Heart rate 2019-12-10 69 /min [place] 14:40:00 [facility] Body temperature 2019-12-10 37.11 Idalia [place] 12:15:24 [facility] Respiratory rate 2019-12-10 16 /min [place] 12:15:24 [facility] Oxygen saturation 2019-12-10 96 /min [place] in Arterial blood 12:15:24 [facility] by Pulse oximetry Body weight 2019-12-10 72.848 kg [place] 06:00:00 [facility] BMI 2019-12-10 25.92 kg/m2 [place] 06:00:00 [facility] Body height 2019-12-09 167.6 cm [place] 16:00:00 [facility] Procedures Procedure Date / Time Performing Clinician Source Performed ECG 12-LEAD 2019-12-10 14:01:00 Lisandro Romo [facility] TROPONIN 2019-12-10 12:50:00 Lisandro Romo [facility] BASIC METABOLIC PANEL 2019-12-10 05:33:00 Natalie Headley ton [facility] ESTIMATED GFR 2019-12-10 05:33:00 Natalie Headley [facility]odist HEMODIALYSIS 2019-12-09 20:17:14 Skyler Rand Meth odist [place] < 1 HOUR 2019-12-09 19:26:47 Martita Corral Meth odist HEPATITIS B SURFACE 2019-12-09 19:13:00 Skyler Rand [facility] ANTIGEN HEPATITIS B SURFACE 2019-12-09 19:13:00 Skyler Rand [facility] ANTIBODY HEMODIALYSIS 2019-12-09 16:51:41 Skyler Rand Meth odist HEMODIALYSIS 2019-12-09 16:09:37 Skyler Rand Meth odist POC GLUCOSE 2019-12-09 16:02:00 Martita Corral odist OR AN ELECTIVE 2019-12-09 13:56:58 Antonieta Lawrence Lange Harriet ethodist SUPRAGLOTTIC AIRWAY POC GLUCOSE 2019-12-09 12:42:00 Martita Corral odist POC PANEL 2019-12-09 10:37:00 Martita Corral Meth odist COMPREHENSIVE METABOLIC 2019-12-09 10:32:00 Jeannine Nazmachelle bailey [facility] PANEL TYPE AND SCREEN 2019-12-09 10:32:00 Nazario Wilson odist Behzad Christine ESTIMATED GFR 2019-12-09 10:32:00 JeannineMartita odist XR CHEST 2 VW 2019-12-05 13:38:59 Jeannine Martita Lange Meth odist ECG PRE/POST OP 2019-12-05 13:07:15 JeannineMartita odist PROTHROMBIN TIME WITH INR 2019-12-05 12:45:00 Jeannine Martita Junior ngton [facility] PARTIAL THROMBOPLASTIN 2019-12-05 12:45:00 Jeannine Nazmachelle Rehman on [facility] TIME (PTT) COVID-19 QUALITATIVE PCR 2019-12-05 12:37:00 Jeannine Nazethanharriet Willie haney [facility] HC COMPLETE BLD COUNT 2019-12-05 12:36:00 Martita Corral n [facility] W/AUTO DIFF HEMOGLOBIN A1C 2019-12-05 12:36:00 Nazario Wilson SARS-COV2/RT-PCR ([facility] & 2019-10-04 09:58:[address] [facility] - REF LABS) [facility] SARS-COV2/RT-PCR ([facility] & 2019-09-30 20:00:[address] [facility] REF LAB[facility]) [facility] Plan of Care Planned Activity Planned Date Details Comments Source Future Scheduled 2020-03-[address] [facility] - Test 00:00:00 (12+) [code = Medical Center DEPRESSION SCREENING (12+)] Future Scheduled 2019-11-05 INFLUENZA VACCINE (#1) [facility] Test 00:00:00 [code = INFLUENZA Medical Ce nter VACCINE (#1)] Future Scheduled 2019-10-05 INFLUENZA VACCINE [place] [facility] Test 00:00:00 [code = INFLUENZA VACCINE] Future Scheduled 2019-03-[address] [facility] - Test 00:00:00 (procedure) [code = Medical Center 37515166] Future Scheduled 2016-09-[address] [facility] - Test 00:00:00 measurement Medical Center (procedure) [code = 00344712] Future Scheduled 2016-06-[address] Susie es - Test 00:00:00 [facility] colon (procedure) [code = 641836600] Future Scheduled 2015-03-[address] [facility] - Test 00:00:00 WELLNESS (YEAR 2 or Medical Center FIRST YEAR if no IPPE) [code = MEDICARE ANNUAL WELLNESS (YEAR 2 or FIRST YEAR if no IPPE)] Future Scheduled 2007-08-29 COLONOSCOPY SCREENING [place] [facility] Test 00:00:00 [code = COLONOSCOPY SCREENING] Future Scheduled 2007-08-29 SHINGLES VACCINES (#1) [place] [facility] Test 00:00:00 [code = SHINGLES VACCINES (#1)] Future Scheduled 1973 COVID-19 VACCINE (1 of [place] [facility] Test 00:00:00 2) [code = COVID-19 VACCINE (1 of 2)] Future Scheduled 1967-08-[address] EXAM [facility] - Test 00:00:00 [code = DIABETIC EYE Medical Center EXAM] Future Scheduled 1967-08-[address] Sus[facility] - Test 00:00:00 examination Medical Center (regime/therapy) [code = 958151320] Future Scheduled 1967-08-29 Urine screening for [facility] - Test 00:00:00 protein (procedure) Medical Center [code = 991230040] Future Scheduled 1967-08-29 DIABETES: RETINAL EYE [place] [facility] Test 00:00:00 EXAM [code = DIABETES: RETINAL EYE EXAM] Future Scheduled 1967-08-29 DIABETIC FOOT EXAM [place] [facility] Test 00:00:00 [code = DIABETIC FOOT EXAM] Future Scheduled 1963-08-[address] [facility] - Test 00:00:00 0-64 YRS (1 of 1 - Medical C enter PPSV23) [code = PNEUMOCOCCAL VACCINE 0-64 YRS (1 of 1 - PPSV23)] Encounters Start End Encounter Admission Attending Care Care Encounter Source Date/Time Date/Time Type Type Clinicians Facility Department ID 2019-12-09 2019-12-10 Outpatient NATALIE HEADLEY [facility] [id number] [place] 00:00:00 00:00:00 276 Method i 2019-12-05 2019-12-05 Outpatient JEANNINE, [facility] [id number] [place] 00:00:00 00:00:00 UTTAM 188 Method i 2019-12-05 2019-12-05 Outpatient JEANNINE, [facility] [id number] [place] 00:00:00 00:00:00 UTTAM 476 Method i 2019-10-10 2019-10-10 Hospital Radiology [facility] [id number] 12:34:44 23:59:00 Encounter Melvin [id number] [place] [id number] [place] [id number] 2019-10-10 2019-10-10 Animal Nutritionist Rodney Steen [facility] [id number] 12:38:05 12:53:05 Visit Lab Main Melvin [id number] [place] [id number] Professio [id number] [address] 2019-09-03 2019-09-03 Veronica V[facility] [place] - [id number] [place] 00:00:00 00:00:00 [facility] Clayton elkins 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: Medical - Practi c [address] VM_[email or web address]_V@_ [facility], [place] [address] [address], [place] [address] , Ph. 2019-07-23 2019-07-23 Veronica [facility] [place] - [id number] [place] ill[place] 00:00:00 00:00:00 [facility] Fam traci o, 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: Medical - Practi c [address] VM_[email or web address]_V@_ e [facility], [address], [place] [address] , Ph. Results Test Description Test Time [...] refer to MMWR Decembe r 2004/Vol. 54(No. 16);1-23, and f or healthcare workers refer to MMWR D ec2012/Vol. 62(No. 10);1-19 .Reference Interval: anti-HBs 9.99 I U/L or less ....... Tpnodhlm86.00 I U/L or greater .... PositiveResults greater than 1,000.00 IU/L are report ed as greater than 1,000.00 IU/L. This assay should not be used for blood donor screening, associated re-e ntry protocols, or for screening Human Cell, Tissues and Cellular and Ti ssue-Based Products (HCT/P).Perform ed By: [address] [address]T aboratory Director: Tania Raymond MD [place] [facility] 12 [id number] 16:17:46 Test Item Value Reference Range Interpretation Comments Ventricular rate (test 70 code = 253) Atrial rate (test code 70 = 255) OR interval (test code 144 = 266) QRSD [...] wave abnormality, worse in Lateral leads- Nazario SchmidGahjeeurtIoxdgokc6666-31-13 13:27:03 Test Item Value Reference Range Interpretation Comments Troponin (test code = 0.045 ng/mL 0-0.04 H In pat ients 77887-8) suspected of orozco ving a myocardial infarction, topher ng with all other appropriate cli nical measures and ac tions including ECG a nd other diagnosti cs as appropriate, sc asure Ultra TnI at 0 hrs and [...] L Lab Interpretation Abnormal (test code = 38838-0) Nazario MethodistBasic metabolic [id number] 07:02:28 Test Item Value Reference Range Interpretation Comments Sodium (test code = 2951-2) 135 135- 148 mEq/L Potassium (test code = 2823-3) 4.6 3.5- 5.0 mEq/L Chloride (test code = 2075-0) 97 98- 112 mEq/L L CO2 (test code = 2027-9) 25 24- 31 mEq/L Anion gap (test code = 33696-5) 13@ANIO 7- 15 mEq/L BUN (test code = 3094-0) 33 mg/dL 8-23 H Creatinine (test code = 2160-0) 5.39 mg/dL 0.7-1.2 H Glucose (test code = 2345-7) 182 mg/dL 65-99 H Calcium (test code = 63766-7) 9.0 mg/dL 8.8-10.2 Lab Interpretation (test code = Abnormal 90872-3) Nazario MethodistEstimated [id number] 07:02:28 Test Item Value Reference Range Interpretation Comments Estimated GFR (test 10 mL/min/1.73 m2 Sara Mahmood franklinissac Units code = 5488) InterpretationG 1 >=90 Sheri l or highG2 60-89 Mildly decrease dG3a 45-59 Mil dly to moderately decr wpmcuH0m 30-44 Moderately to s everely decreasedG4 15-29 Severe ly decreasedG5 <15 Kidney elizabeth lureThe eGFR was calcul ated using the Chron ic Kidney Disease Epidemiology Collaboration ( CKD-EPI) equation. Interpretation is based on recommendati ons of the National Ki dney Foundation-Kidn ey Disease Outcome s Quality Initiat davin (NKF-KDOQI) pub lished in 2013. Lab Interpretation Abnormal (test code = 31712-8) Nazario MethodistHepatitis B surface [id number] 22:55:46 Test Item Value Reference Range Interpretation Comments Hepatitis B surface Ab (test code = Reactive Non-reactive A 40134-9) Lab Interpretation (test code = Abnormal 80776-7) Nazario MethodistHepatitis B surface [id number] 20:22:34 Test Item Value Reference Range Interpretation Comments Hepatitis B surface Ag (test Non-reactive Non-reactive code = 5195-3) Nazario MethodistOR [place] < 1 [id number] 19:38:18Hm Interface, Radiology Results - 12/09/2019 7:41 PM CDTEXAMINATION: OR [place] < 1 HOURCLIN ICAL HISTORY: None provided.IMPRESSION:1. Fluoroscopy was provided in the operating. I was not present during the procedure.2. Please refer to the operative report for findings.3. Total Dose: 114 fluoroscopic images. 27.1 minutes of fluoroscopy time.[facility] [id number] 16:09:09 Test Item Value Reference Range Interpretation Comments POC glucose (test code = 128 mg/dL 65-99 H Ope rator Name: 76139-6) Gwendolyn Oviedo ice ID: [id number] Lab Interpretation (test Abnormal code = 84399-1) [facility] [id number] 15:33:52 Test Item Value Reference Range Interpretation Comments POC sodium (test code = 134 mmol/L 135-148 L 2947-0) POC potassium (test 5.7 mmol/L 3.5-5 H code = 6298-4) POC glucose (test code 121 mg/dL 65-99 H Opera tor Name: = 2339-0) Papa Salazarice ID : [id number] POC hemoglobin (test 10.2 g/dL 14-18 L code = 718-7) POC hematocrit (test 30 % 41-51 L code = 4544-3) Lab Interpretation Abnormal (test code = 89336-0) [place] [id number] 13:56:58Antonieta Lawrence CRNA 12/09/2019 1:57 PMAirway Date/Time: 12/09/2019 1:57 PMPerformed by: Antonieta Lawrence CRNAAuthorized by: Sameer Donohue MD Location: ORUrgency: ElectiveDifficult Airway: No Anesthesiologist: Sameer Donohue MDResident/AVTAR/AA: Antonieta Lawrence CRNAPerformed by: resident/AVTAR/AAPreoxygenated with 100% O2: Yes C-spine Precautions Maintained Throughout: Yes Mask Ventilation: Not attemptedFinal Airway Type: Supraglottic airwayFinal LMA: I-GelLMA Size: 4Number of Attempts at Approach: 1Houston MethodistType and [id number] 12:06:00 Test Item Value Reference Range Interpretation Comments ABO grouping (test code = 883-9) O Rh type (test code = 13564-4) POS Antibody screen (gel) (test code = NEG 890-4) [place] MethodistComprehensive metabolic [id number] 11:08:24 Test Item Value Reference Range Interpretation Comments Sodium (test code = 134 135- 148 mEq/L L 2951-2) Potassium (test code = 6.0 3.5- 5.0 mEq/L HH Fin al results 2823-3) called to and r ead back by Albin Carney/RIGO. 12/09/2019 11:0 7 CBJ No hemolysi s. Chloride (test code = 97 98- 112 mEq/L L 5-0) CO2 (test code = 2027-9) 22 24- 31 mEq/L L Anion gap (test code = 15@ANIO 7- 15 mEq/L 87294-1) BUN (test code = 3094-0) 56 mg/dL 8-23 H Creatinine (test code = 8.57 mg/dL 0.7-1.2 H 2160-0) Glucose (test code = 130 mg/dL 65-99 H 2345-7) Calcium (test code = 9.0 mg/dL 8.8-10.2 02133-1) Protein (test code = 6.7 g/dL 6.3-8.3 [...] 1975-2) Lab Interpretation (test Abnormal code = 71741-0) Nazario MethodistECG Pre/Post [id number] 00:44:14 Test Item Value Reference Range Interpretation Comments Ventricular rate (test 70 code = 253) Atrial rate (test code = 70 255) OR interval (test code = 136 266) QRSD [...] on 12/06/2019 12:44:11 AM Nazario SchmidCOVID-19 qualitative [id number] 21:14:16 Test Item Value Reference Range Interpretation Comments Interpretation (test Negative results do code = 5367466) not preclude 2019-nCoV infection and should not be used as the sole basis for treatment or other patient management decisions. Negative results must be combined with clinical observations, patient history, and epidemiological information. COVID-19 qualitative Not-Detected Not-Detected PCR result (test code = 51029-0) COVID-19 qualitative See link below for C ase Number: PCR (test code = PDF Lab Report [id number]) Nazario SchmidXR Chest 2 [id number] 16:56:18Hm Interface, Radiology Results Incoming - 12/05/2019 4:59 PM CDTEXAMINATION: XR CHEST 2 VWCLINICAL HISTORY: Z01.818 Encounter for other preprocedural examination, PRE OPCOMPARISON: None.IMPRESSION:Heart and mediastinum: Cardiomediastinal silhouette is prominent. Atherosclerotic calcifications of the aortic arch.Lungs and pleura: There is no focal airspace disease, pleural effusion or pneumothorax.Bones: No acute abnormality.Spinal cord stimulator device seen overlying the thoracic spine.[facility]-[id number] and approved by dental resident/fellow: Nate Schmitz, Daniel Abbott, personally reviewed the images and resident's/fellow's findings and agree with the final report.Nazario Schmid Hemoglobin [id number] 13:43:59 Test Item Value Reference Range Interpretation Comments Hemoglobin A1C (test 5.6 % 4-5.6 HbA1c c utoffs for code = 88681-5) diagnosing d iabetes:4.0% - 5.6% = normal 5.7% - 6.4% = increase d risk for diabetes (prediabetes)9> =6.5% = muwwseul2Asuos for glycemic contro l (ADA 2016)< 7.0% Ta rget for non susie lts with diabetes. More or less stringent targe ts may be appropriate for individual shashi ents. <7.5% Target for Children and ad olescents with type 1 aryan betes. [facility] MethodistPartial thromboplastin time, [id number] 13:35:33 Test Item Value Reference Range Interpretation Comments PTT (test code = 31.4 23.0- 36.0 sec PTT thera peutic range for 3173-2) unfractionated heparin is61.0-112.0 se conds which corresponds to Anti-Xa0.3-0.7 U/ml. [place] MethodistProthrombin time with [id number] 13:34:44 Test Item Value Reference Range Interpretation Comments Prothrombin time (test 14.5 11.5- 14.5 sec code = 5902-2) INR (test code = 1.1 [facility] 45386-9) Normalized Rati o (INR) is a therapeutic m onitoring tool for patien ts who are stable on oral anticoagulant t herapy. An INR of 2.0-3.0 is suggested for d eep vein thrombosis/pulm onary embolism. [place] MethodistCBC with platelet and [id number] 13:28:57 Test Item Value Reference Range Interpretation Comments WBC (test code = 47922-7) 6.3 4.5- 11.0 k/uL RBC (test code = 36157-6) 2.77 m/uL 4.4-6 L HGB (test code = 718-7) 8.6 g/dL 14-18 L HCT (test code = 4544-3) 27.9 % 41-51 L MCV (test code = 787-2) 100.7 fL 82-100 H MCH (test code = 785-6) 31.0 pg 27-34 MCHC (test code = 786-4) 30.8 g/dL 31-37 L RDW - SD (test code = 27744-8) 56.1 fL 37-55 H MPV (test code = 69096-6) 10.0 fL 6.9-11 Platelet count (test code = 165 K/uL 150-400 37208-7) Nucleated RBC (test code = 83564-5) 0.00 /100 WBC Neutrophils (test code = 08662-9) 59.6 % 39-69 Lymphocytes (test code = 15931-4) 21.4 % 25-45 L Monocytes (test code = 71390-8) 8.7 % 0-10 Eosinophils (test code = 48197-1) 8.5 % 0-5 H Basophils (test code = 28779-2) 1.3 % 0-1 H Immature granulocytes (test code = 0.5 % 0-1 07928-5) Lab Interpretation (test code = Abnormal 01535-4) Nazario ShahARS-CoV2/RT-PCR ([facility])2019-10-04 22:28:00 Test Item Value Reference Range Interpretation Comments SARS-COV2/RT-PCR Negative Not Detected, (test code = Negative, See 56632-4) external report for linked test SARS-COV-2 [facility] PERFORMING LAB (test code = 29820-5) STEVEN (test code = Negative result for [...] of the Act. Fact Sheet for Healthcare Providers:https://www.[employer]/sites/default/f eunice/product/documents/F act_Sheet_HC_Providers_L plo_VQFF-DgZ-1.pdf Fact Sheet for Healthcare Patients:https://www.[employer]/sites/default/fi les/product/documents/Fa ct_Sheet_Patients_Lyra_S ARS-CoV-2.pdf Performing Laboratory:[facility], [place] [id number] [place], [place] [address]ARS-COV2/RT-PCR ([facility])2019-10-04 22:28:00 Test Item Value Reference Range Interpretation Comments SARS-COV2/RT-PCR (test Negative Not Detected, Negative, code = 8902224) See external report for linked test SARS-COV-2 PERFORMING LAB [facility] (test code = 6405001) Negative result for this test determines that [...] 564(g) of the Act.Fact Sheet for Healthcare Providers:https://www.[employer]/sites/default/files/product/documents/Fact_Shee y_LW_Wtrlbwxaq_Kzrq_YFVU-XdA-5.pdfFact Sheet for Healthcare Patients:https://www.[employer]/sites/default/files/product/ documents/Kebn_Ztplh_Ddjqeqhg_Ovjx_JAJA-UdC-2.pdfPerforming Laboratory:[facility], [place] [address]BADF-YEX7/RT-PCR ([facility])2019-10-01 04:23:00 Test Item Value Reference Range Interpretation Comments SARS-COV2/RT-PCR (test code Negative Not Detected, Negative, = 8151417) See external report for linked test SARS-COV-2 PERFORMING LAB [facility] (test code = 2367155) Negative results do not preclude SARS-CoV-2 infection [...] of the Act.Fact Sheet for Healthcare Pro viders:https://www.[employer]/Documents/Xpert%20Xpress%20SARS%20CoV-2/Fact%20Sh eets/302-3802%71EEDO-JZO-0%20HEALTHCARE%20PROVIDERS%20FACT%20SHEET.pdfFact Sheet for Healthcare Patients:https://www.[employer]/Documents/Xpert%20Xpress%20SARS%20CoV-2/Fact%20Sheets/302-3801%20SARS-COV -2%20PATIENT%20FACT%20SHEET.pdfPerforming Laboratory:[facility], [place] [address]GAJROZG IMAGING, MULTI, PHARM, SPECT 2019-02-21 15:54:00Referring: Dr. Schultz [facility] HealthFINAL REPORT PROCEDURE: MYOCARDIAL PERFUSION SPECT IMAGING (Rest/Stress)CPT CODE: 37777 INDICATION: Renal transplant evaluation, hypertension, shortness of [...] MDReport Verified Date/Time: 02/21/2019 15:54:30 Reading Location: [place] [id number] Reading Room [id number] 17:11:00 Test Item Value Reference Range Interpretation Comments PROSTATE SPECIFIC ANTIGEN (BEAKER) 0.8 ng/mL 0.0-4.0 (test code = 844) HEPATITIS B SURFACE [id number] 17:11:00 Test Item Value Reference Range Interpretation Comments HEPATITIS B SURFACE ANTIBODY 612.9 mIU/mL <8.0 H (BEAKER) (test code = 647) PROTHROMBIN TIME/[id number] 14:59:00 Test Item Value Reference Range Interpretation Comments PROTIME (BEAKER) (test code = 15.6 seconds 11.7-14.7 H 759) INR (BEAKER) (test code = 370) 1.2 <=5.9 RECOMMENDED COUMADIN/WARFARIN INR THERAPY RANGESSTANDARD DOSE: 2.0 - 3.0 Includes: PROPHYLAXIS forvenous thrombosis, systemic embolization; TREATMENT for venous thrombosis and/or pulmonary embolus.HIGH RISK: Target INR is 2.5-3.5 for patients with mechanical heart valves.BASIC METABOLIC [id number] 14:58:00 Test Item Value Reference Range Interpretation [...] APPLICABLE FOR DIALYSIS PATIEN TS. HEPATIC FUNCTION [id number] 14:53:00 Test Item Value Reference Range Interpretation [...] 6-55 347) CBC W/PLT COUNT & AUTO [id number] 14:19:00 Test Item Value Reference Range Interpretation [...] = 2801) FLOW PRA CLASS I AND [id number] 12:02:00 Test Item Value Reference Range Interpretation Comments DATE OF SERUM (BEAKER) 388432 (test code = 2289) SERUM # (BEAKER) (test 435564 code = 2293) FLOW PRA CLASS I AND II See Scanned Report (test code = 2421) HEPATITIS B SURFACE [id number] 13:18:00 Test Item Value Reference Range Interpretation Comments HEPATITIS B SURFACE ANTIBODY < mIU/mL <8.0 (BEAKER) (test code = 647) [id number] 13:08:00 Test Item Value Reference Range Interpretation Comments PROSTATE SPECIFIC ANTIGEN (BEAKER) 0.9 ng/mL 0.0-4.0 (test code = 844) FLOW PRA CLASS I AND [id number] 16:00:00 Test Item Value Reference Range Interpretation Comments DATE OF SERUM (BEAKER) 6040312 (test code = 2289) SERUM # (BEAKER) (test 10290705 code = 2290) FLOW PRA CLASS I AND II See Scanned Report (test code = 2421) BASIC METABOLIC [id number] 15:51:00 Test Item Value Reference Range Interpretation [...] APPLICABLE FOR DIALYSIS PATIEN TS. HEPATIC FUNCTION [id number] 15:48:00 Test Item Value Reference Range Interpretation [...] 6-55 347) CBC W/PLT COUNT & AUTO [id number] 15:11:00 Test Item Value Reference Range Interpretation [...] (test code = 417) 0.00AFB CULTURE + [id number] 19:58:00 Test Item Value Reference Range Interpretation Comments CULTURE (BEAKER) (test No acid-fast bacilli code = 1095) isolated in 42 days AFB SMEAR (BEAKER) No acid fast bacilli (test code = 994) seen AFB CULTURE + [id number] 19:58:00 Test Item Value Reference Range Interpretation Comments CULTURE (BEAKER) (test No acid-fast bacilli code = 1095) isolated in 42 days AFB SMEAR (BEAKER) No acid fast bacilli (test code = 994) seen AFB CULTURE + [id number] 18:21:00 Test Item Value Reference Range Interpretation Comments CULTURE (BEAKER) (test No acid-fast bacilli code = 1095) isolated in 42 days AFB SMEAR (BEAKER) No acid fast bacilli (test code = 994) seen POCT-GLUCOSE [id number] 10:30:00 Test Item Value Reference Range Interpretation Comments POC-GLUCOSE METER 468 mg/dL 70-110 HH TESTED AT [facility] [address] ([facility]) (test code = JANICE LANGE BRIONNA 1538) [address] CREATINE KINASE (CK), TOTAL AND [id number] 08:31:00 Test Item Value Reference Range Interpretation Comments CREATINE KINASE TOTAL (BEAKER) 42 U/L 29-200 (test code = 380) CREATINE KINASE-MB (BEAKER) (test 2.3 ng/mL 0.0-6.6 code = 750) CREATINE KINASE-MB INDEX (BEAKER) 5.5 % (test code = 395) Effective 01/21/2014: CK-MB Reference Range ChangeNew: 0.0-6.6 Previous: 0.0-4.9CK-MB Reference Range:<6.7 Normal6.7-10.0 Borderline>10.0 AbnormalTROPONIN [id number] 08:31:00 Test Item Value Reference Range Interpretation [...] acute neurological disease, and persistent tachyarrhythmia.BASIC METABOLIC [id number] 08:27:00 Test Item Value Reference Range Interpretation [...] S NOT APPLICABLE FOR DIALYSIS PATIEN TS. [id number] 08:24:00 Test Item Value Reference Range Interpretation Comments MAGNESIUM (BEAKER) (test code = 2.4 mg/dL 1.6-2.6 627) CBC W/PLT COUNT & AUTO [id number] 08:17:00 Test Item Value Reference Range Interpretation [...]
--- NOTE | 2020-03-23 16:49 | RAD REPORT ---
EXAM DESCRIPTION: CT - Stone Protocol - 03/23/2020 4:29 pm CLINICAL HISTORY: Abdominal pain. COMPARISON: August 2019 TECHNIQUE: Computed axial tomography of the abdomen pelvis was obtained without oral or IV contrast. Lack of IV and oral contrast limits evaluation of solid organs, bowel, and vessels. Coronal reformat svetlana images were obtained and reviewed. All CT scans are performed using dose optimization technique as appropriate and may include automated exposure control or mA/KV adjustment according to patient size. FINDINGS: A renal calculus is not seen. An ureteral calculus is not noted. A bladder calculus is not present. Renal vascular calcifications. No hydronephrosis Cirrhotic liver. Extensive vascular calcifications are present. The spleen, pancreas and adrenals yon ear grossly normal There is no evidence of diverticulitis. A neurostimulator device in place Postsurgical changes involve the spine. Disc space narrowing and cortical regularity involves L2-3. L 3-4 disc is obliterated. Posterior subluxation L3 on L4 is present. Anterior subluxation L5 on S1. Ne urostimulator device in place Asymmetric prostatic tissue abuts the right posterior aspect of the bladder IMPRESSION: Negative for a genitourinary calculus Asymmetric prostatic tissue abuts the right posterior aspect of the bladder. This could indicate pros tatic neoplasm or hypertrophy
[2020-03-23 16:56] LABS: Absolute Lymphocytes (CBC) 0.8 K/uL (0.7-4.9); Basophils % 1.3 % (0-1.3); Hematocrit 36.4 % (39.6-49.0); MPV 8.9 fL (7.6-11.3); RBC Red Blood Cell Count 3.91 M/uL (4.33-5.43)
[2020-03-23] MEDS ORDERED: MORPHINE 4 MG/ML SYR ONE (17:04)
[2020-03-23] MEDS ORDERED: ONDANSETRON 4 MG/2 ML VIAL ONE (17:05)
[2020-03-23 17:09] LABS: Potassium 4.4 mmol/L (3.5-5.1)
--- NOTE | 2020-03-23 18:13 | RAD REPORT ---
EXAM DESCRIPTION: US - Scrotum Testicles - 03/23/2020 5:15 pm CLINICAL HISTORY: Testicular pain COMPARISON: None FINDINGS: Right testicle measures 4.1 x 1.6 x 2 point centimeters. Echotexture is mildly inhomogeneo us. Normal blood flow Left testicle measures 4.4 x 1.7 x 2.8 centimeters. Echotexture is mildly inhomogeneous. Normal blood flow The epididymides are normal in size and echotexture. Normal blood flow is seen. Left varicocele IMPRESSION: Left varicocele
--- NOTE | 2020-03-23 19:01 | ER ---
Nurse's Notes [facility] Name: Alexis Urbano Age: 64 yrs Sex: Male : 1955 Arrival Date: 03/23/2020 Time: 14:39 Bed 19 Private MD: Diagnosis: Scrotal varices;Low back pain Presentation: 03/23 15:02 Chief complaint: Patient states: Bilateral flank pain, worse on the L since a month ca1 ago. Comes and goes, some days worse than the others. Been getting worse since last week. Also has pain on the L side scrotum, denies swelling. Coronavirus screen: Client denies travel out of the [place] in the last 14 days. At this time, the client does not indicate any symptoms associated with coronavirus-19. Ebola Screen: Patient negative for fever greater than or equal to 101.5 degrees Fahrenheit, and additional compatible Ebola Virus Disease symptoms Patient denies exposure to infectious person. Patient denies travel to an Ebola-affected area in the 21 days before illness onset. No symptoms or risks identified at this time. Initial Sepsis Screen: Does the patient meet any 2 criteria? No. Patient's initial sepsis screen is negative. Does the patient have a suspected source of infection? No. Patient's initial sepsis screen is negative. Risk Assessment: Do you want to hurt yourself or someone else? Patient reports no desire to harm self or others. Onset of symptoms was March 23, 2020. 15:02 Method Of Arrival: Wheelchair ca1 15:02 Acuity: JOEL 3 ca1 Historical: - Allergies: 15:07 No Known Allergies; ca1 - PMHx: 15:07 Diabetes - NIDDM; Dialysis; M,W,F; ESRD; GERD; Hypertension; ca1 - PSHx: 15:07 back surgery; ca1 15:07 Knee surgery; ca1 - Immunization history:: Pneumococcal vaccine is up to date, Flu vaccine is not up to date. - Social history:: Smoking status: Patient reports the use of cigarette tobacco products, denies chronic smoking, but will smoke occasionally. Screenin:45 Abuse screen: Denies threats or abuse. Denies injuries from another. Nutritional ss screening: No deficits noted. Tuberculosis screening: Never had TB. Fall Risk None identified. Assessment: 16:00 General: Appears in no apparent distress. comfortable, Behavior is calm, cooperative, ss Denies fever, feeling ill, fatigue, chills. Pain: Complains of pain in right flank and left flank Pain currently is 9 out of 10 on a pain scale. Quality of pain is described as aching, Pain began 1 month ago Is continuous. Neuro: Level of Consciousness is awake, alert, obeys commands, Oriented to person, place, time, situation, Speech is normal, Facial symmetry appears normal. Cardiovascular: Chest pain is denied Dialysis shunt: in the left bicep, with palpable thrill, with auscultated bruit, with no erythema, with no edema, no bleeding noted. Respiratory: Airway is patent Respiratory effort is even, unlabored, Respiratory pattern is regular, symmetrical. GI: Patient currently denies diarrhea, nausea, vomiting. : Reports Pt reports he only produces very scant amount of urine in the mornings. Squeezing pain to L testicle that began "a while ago". EENT: Oral mucosa is moist. Throat is clear. Derm: Skin is intact, is healthy with good turgor, Skin is dry, Skin is pink, warm \\T\\ dry. normal. 17:07 Reassessment: ultrasound at bedside. ss 17:33 Reassessment: Patient appears in no apparent distress at this time. Patient and/or ss family updated on plan of care and expected duration. Pain level reassessed. Patient is alert, oriented x 3, equal unlabored respirations, skin warm/dry/pink. 6/10 Patient states feeling better. Patient states symptoms have improved. 17:47 Reassessment: Pt is resting at this time. Eyes closed. Respirations remain even and ss unlabored. Call light within reach. 19:15 Reassessment: Patient appears in no apparent distress at this time. Patient and/or iw family updated on plan of care and expected duration. Pain level reassessed. Patient is alert, oriented x 3, equal unlabored respirations, skin warm/dry/pink. pt does not have a ride at this time, has to drive himself home, will wait for 4 hours after IV pain med to discharge home. 20:05 Reassessment: Patient appears in no apparent distress at this time. Patient and/or iw family updated on plan of care and expected duration. Pain level reassessed. Patient is alert, oriented x 3, equal unlabored respirations, skin warm/dry/pink. pt given sandwich and diet soda while he waits. 20:30 Reassessment: Patient appears in no apparent distress at this time. Patient and/or jb4 family updated on plan of care and expected duration. Pain level reassessed. Patient is alert, oriented x 3, equal unlabored respirations, skin warm/dry/pink. Report received form ABBIE Peres. 21:25 Reassessment: Patient appears in no apparent distress at this time. Patient and/or jb4 family updated on plan of care and expected duration. Pain level reassessed. Patient is alert, oriented x 3, equal unlabored respirations, skin warm/dry/pink. Vital Signs: 15:02 BP 154 / 45; Pulse 58; Resp 18 S; Temp 97.6(TE); Pulse Ox 98% on R/A; Weight 81.65 kg ca1 (R); Height 5 ft. 6 in. (167.64 cm) (R); Pain 9/10; 17:31 BP 151 / 51; Pulse 53; Resp 15; Pulse Ox 98% on R/A; Pain 6/10; ss 19:16 BP 165 / 52; Pulse 60; Resp 16; Pulse Ox 97% on R/A; iw 21:15 BP 163 / 58; Pulse 58; Resp 16; Pulse Ox 99% on R/A; jb4 15:02 Body Mass Index 29.05 (81.65 kg, 167.64 cm) ca1 ED Course: 14:39 Patient arrived in ED. as 15:05 Triage completed. ca1 15:07 Arm band placed on right wrist. ca1 15:39 Anabell Schneider RN is Primary Nurse. ss 15:45 Patient has correct armband on for positive identification. Bed in low position. Call ss light in reach. 15:56 Jim Fuentes PA is PHCP. jmm 15:56 Homar Munoz MD is Attending Physician. jmm 16:28 CT Stone Protocol In Process Unspecified. EDMS 16:45 Inserted saline lock: 20 gauge in right antecubital area, using aseptic technique. ss Blood collected. 17:16 US Scrotum Testicles In Process Unspecified. EDMS 18:57 Elijah Anderson MD is Referral Physician. jmm 19:15 Primary Nurse role handed off by Anabell Schneider, ABBIE iw 19:15 Larisa Walker, RN is Primary Nurse. iw 20:06 No provider procedures requiring assistance completed. IV discontinued, intact, iw bleeding controlled, No redness/swelling at site. Pressure dressing applied. 20:25 Primary Nurse role handed off by Larisa Walker RN jb4 20:25 Finesse Malave, RN is Primary Nurse. jb4 Administered Medications: 16:56 Drug: morphine 4 mg Route: IVP; Site: right antecubital; ss 16:56 Drug: Zofran (Ondansetron) 4 mg Route: IVP; Site: right antecubital; ss Outcome: 18:59 Discharge ordered by MD. vicki 21:25 Discharged to home via wheelchair. carmela 21:25 Condition: stable 21:25 Discharge instructions given to patient, Instructed on discharge instructions, follow up and referral plans. Demonstrated understanding of instructions, follow-up care. 21:28 Patient left the ED. [email or web address] Signatures: Dispatcher [employer] EDMS Jim Fuentes PA PA jmm Martinez, Amelia as Larisa Walker RN RN Anabell Schneider RN RN Finesse Malave RN RN [facility] Madie Carrillo RN RN ca1 Corrections: (The following items were deleted from the chart) 18:18 16:00 : No signs and/or symptoms were reported regarding the genitourinary system. ss Reports Pt reports he only produces very scant amount of urine in the mornings ss
--- NOTE | 2020-03-23 19:01 | EDPHYS ---
Physician Documentation [facility] Name: Alexis Urbano Age: 64 yrs Sex: Male : 1955 Arrival Date: 03/23/2020 Time: 14:39 Bed 19 Private MD: ED Physician Homar Munoz HPI: 03/23 16:10 This 64 yrs old Male presents to ER via Wheelchair with complaints of Flank jmm Pain. 16:10 The patient complains of pain in the left flank and right flank. Onset: The jmm symptoms/episode began/occurred gradually, 1 month(s) ago. Modifying factors: The symptoms are alleviated by nothing. the symptoms are aggravated by movement. Associated signs and symptoms: Pertinent negatives: dysuria, fever. This is a 64 year old male with a history of DM, ESRD, GERD, HTN that presents to the ED with complaints of ongoing bilateral flank pain beginning approx 1 month ago along with left sided scrotal pain. Denies fever. Last dialysis was today. . Historical: - Allergies: 15:07 No Known Allergies; ca1 - PMHx: 15:07 Diabetes - NIDDM; Dialysis; M,W,F; ESRD; GERD; Hypertension; ca1 - PSHx: 15:07 back surgery; ca1 15:07 Knee surgery; ca1 - Immunization history:: Pneumococcal vaccine is up to date, Flu vaccine is not up to date. - Social history:: Smoking status: Patient reports the use of cigarette tobacco products, denies chronic smoking, but will smoke occasionally. ROS: 16:10 Constitutional: Negative for fever, chills, and weight loss, Cardiovascular: Negative jmm for chest pain, palpitations, and edema, Respiratory: Negative for shortness of breath, cough, wheezing, and pleuritic chest pain. 16:10 Back: Positive for flank pain. 16:10 : Positive for testicular pain 16:10 All other systems are negative. Exam: 16:10 Constitutional: This is a well developed, well nourished patient who is awake, alert, jmm and in no acute distress. Head/Face: atraumatic. Eyes: EOMI, no conjunctival erythema appreciated ENT: Moist Mucus Membranes Neck: Trachea midline, Supple Chest/axilla: Normal chest wall appearance and motion. Cardiovascular: Regular rate and rhythm. No edema appreciated Respiratory: Normal respirations, no respiratory distress appreciated Abdomen/GI: Non distended, soft Back: Normal ROM Skin: General appearance color normal MS/ Extremity: Moves all extremities, no obvious deformities appreciated, no edema noted to the lower extremities Neuro: Awake and alert, normal gait Psych: Behavior is normal, Mood is normal, Patient is cooperative and pleasant Vital Signs: 15:02 BP 154 / 45; Pulse 58; Resp 18 S; Temp 97.6(TE); Pulse Ox 98% on R/A; Weight 81.65 kg ca1 (R); Height 5 ft. 6 in. (167.64 cm) (R); Pain 9/10; 17:31 BP 151 / 51; Pulse 53; Resp 15; Pulse Ox 98% on R/A; Pain 6/10; ss 19:16 BP 165 / 52; Pulse 60; Resp 16; Pulse Ox 97% on R/A; iw 21:15 BP 163 / 58; Pulse 58; Resp 16; Pulse Ox 99% on R/A; jb4 15:02 Body Mass Index 29.05 (81.65 kg, 167.64 cm) ca1 MDM: 15:59 Patient medically screened. chris 18:50 Data reviewed: vital signs, nurses notes. Counseling: I had a detailed discussion with [facility] the patient and/or guardian regarding: the historical points, exam findings, and any diagnostic results supporting the discharge/admit diagnosis, the need for outpatient follow up, to return to the emergency department if symptoms worsen or persist or if there are any questions or concerns that arise at home. 03/23 16:10 Order name: CBC with Diff; Complete Time: 17:03 [facility] 03/23 16:10 Order name: BMP; Complete Time: 17:24 [facility] 03/23 16:10 Order name: CT Stone Protocol; Complete Time: 17:02 [facility] 03/23 16:10 Order name: US Scrotum Testicles; Complete Time: 18:17 [facility] 03/23 16:10 Order name: Saline Lock; Complete Time: 16:46 [facility] Administered Medications: 16:56 Drug: morphine 4 mg Route: IVP; Site: right antecubital; ss 16:56 Drug: Zofran (Ondansetron) 4 mg Route: IVP; Site: right antecubital; ss Disposition: 03/24 06:38 Co-signature as Attending Physician, Homar Munoz MD I agree with the assessment and chris plan of care. Disposition: 03/23/20 18:59 Discharged to Home. Impression: Scrotal varices, Low back pain. - Condition is Stable. - Discharge Instructions: Back Pain, Adult, Varicocele. - Medication Reconciliation Form, Thank You Letter, Antibiotic Education, Prescription Opioid Use form. - Follow up: Elijah Anderson MD; When: 2 - 3 days; Reason: Recheck today's complaints, Continuance of care, Re-evaluation by your physician. Signatures: Dispatcher [employer] EDHomar Mukherjee MD MD cha Mickail, Joel, PA PA jmm Smirch, Shelby, RN RN Finesse Malave RN RN jb4 Madie Carrillo RN RN ca1 Corrections: (The following items were deleted from the chart) 03/23 21:28 18:59 03/23/2020 18:59 Discharged to Home. Impression: Scrotal varices; Low back pain. jb4 Condition is Stable. Forms are Medication Reconciliation Form, Thank You Letter, Antibiotic Education, Prescription Opioid Use. Follow up: Elijah Anderson; When: 2 - 3 days; Reason: Recheck today's complaints, Continuance of care, Re-evaluation by your physician. vicki
[2020-03-23 21:47] VITALS: TEMP 97.6
[2020-03-23 21:50] VITALS: BP 165/52; O2SAT 97
== END 2020-03-23 21:28 | disposition home or self-care (01) ==
LOC: ER 14:36
DX: I86.1 Scrotal varices (principal); M54.5 Low back pain; E11.22 Type 2 diabetes mellitus with diabetic chronic kidney disease; I12.0 Hypertensive chronic kidney disease with stage 5 chronic kidney disease or end stage renal disease; N18.6 End stage renal disease; Z99.2 Dependence on renal dialysis; F17.210 Nicotine dependence, cigarettes, uncomplicated
CPT/HCPCS: 85025; 80048; 36415; 76377; 74176; 76870; 96375; 96374; 99284; J2405

== ENCOUNTER 2020-04-22 01:53 | Emergency (ER) | payer OTHER ==
[2020-04-22] MEDS ORDERED: HYDROCODONE/APAP 10/325 TAB ONE (02:26)
--- NOTE | 2020-04-22 03:33 | ER ---
Nurse's Notes [facility] Name: Alexis Urbano Age: 64 yrs Sex: Male : 1955 Arrival Date: 04/22/2020 Time: 01:58 Bed 19 Private MD: Diagnosis: Nondisplaced fracture of lateral malleolus of right fibula Presentation: 04/22 02:01 Chief complaint: EMS states: EMS toned out for a fall, states he slipped on ice, fell ll2 and landed on his back and hurt RT ankle. Coronavirus screen: Client denies travel out of the [place] in the last 14 days. At this time, the client does not indicate any symptoms associated with coronavirus-19. Ebola Screen: Patient negative for fever greater than or equal to 101.5 degrees Fahrenheit, and additional compatible Ebola Virus Disease symptoms. Initial Sepsis Screen: Does the patient meet any 2 criteria? No. Patient's initial sepsis screen is negative. Does the patient have a suspected source of infection? No. Patient's initial sepsis screen is negative. Risk Assessment: Do you want to hurt yourself or someone else? Patient reports no desire to harm self or others. Onset of symptoms was April 22, 2020. 02:01 Acuity: JOEL 3 ll2 02:01 Method Of Arrival: EMS: [facility] ll2 Triage Assessment: 02:06 General: Appears in no apparent distress. uncomfortable, Behavior is calm, cooperative, ll2 appropriate for age. Pain: Complains of pain in back and right leg. EENT: No signs and/or symptoms were reported regarding the EENT system. Neuro: Level of Consciousness is awake, alert, obeys commands, Oriented to person, place, time, situation. Cardiovascular: Patient's skin is warm and dry. Respiratory: Airway is patent Respiratory effort is even, unlabored, Respiratory pattern is regular, symmetrical. Derm: Skin is intact, is healthy with good turgor, Skin is dry, Skin is pink, warm \T\ dry. Musculoskeletal: Circulation, motion, and sensation intact. Range of motion: limited in back and right leg. Historical: - Home Meds: 02:06 Albuterol Inhl every 4-6 hours [Active]; amlodipine oral [Active]; aspirin 81 mg Oral ll2 chew 1 tab once daily [Active]; bumetanide 2 mg Oral tab 1 tab once daily [Active]; clonidine HCl 0.2 mg Oral tab 2 times per day [Active]; doxazosin 2 mg Oral tab 1 tab once daily [Active]; gabapentin 100 mg Oral cap 3 times per day [Active]; hydralazine 100 mg Oral tab 3 times per day [Active]; hydrocodone-acetaminophen 10-325 mg Oral tab every 6 hours [Active]; levamir [Active]; Metoprolol Tartrate Oral [Active]; Plavix Oral [Active]; pravastatin 40 mg Oral tab 1 tab once daily [Active]; tizanidine 4 mg Oral tab twice a day [Active]; Zanaflex Oral [Active]; - PMHx: 02:06 Diabetes - NIDDM; Dialysis; M,W,F; ESRD; Hypertension; GERD; ll2 - Immunization history:: Adult Immunizations unknown. - Social history:: Smoking status: unknown. - Family history:: not pertinent. - Hospitalizations: : No recent hospitalization is reported. Screenin:08 Abuse screen: Denies threats or abuse. Nutritional screening: No deficits noted. ll2 Tuberculosis screening: No symptoms or risk factors identified. Fall Risk Fall in past 12 months (25 points). Assessment: 02:08 Reassessment: see triage assessment. ll2 03:30 Reassessment: Patient and/or family updated on plan of care and expected duration. Pain ll2 level reassessed. Patient is alert, oriented x 3, equal unlabored respirations, skin warm/dry/pink. Vital Signs: 02:01 BP 145 / 47; Pulse 55; Resp 20; Temp 98.5; Pulse Ox 97% ; Weight 74.84 kg; Height 5 ft. ll2 6 in. (167.64 cm); 02:15 BP 137 / 68; Pulse 55; Resp 20; Pulse Ox 98% on R/A; ll2 02:01 Body Mass Index 26.63 (74.84 kg, 167.64 cm) ll2 ED Course: 01:58 Patient arrived in ED. rn 01:58 Fito Ward MD is Attending Physician. rn 02:01 Sara Samuels RN is Primary Nurse. ll2 02:03 Triage completed. ll2 02:32 XRAY Ankle RIGHT 3 view In Process Unspecified. EDMS 02:36 XRAY Tib Fib RIGHT In Process Unspecified. EDMS 03:53 Patient has correct armband on for positive identification. Bed in low position. Call ll2 light in reach. Side rails up X2. surveillance monitor on. Pulse ox on. NIBP on. Administered Medications: 02:13 Drug: [place] 10 mg-325 mg 1 tabs Route: PO; ll2 03:52 Follow up: Response: No adverse reaction ll2 Outcome: 03:32 Discharge ordered by . rn 03:57 Patient left the ED. ll2 Signatures: Dispatcher [employer] EDMS Fiot Ward MD MD rn Sara Samuels, RN RN ll2
--- NOTE | 2020-04-22 03:33 | EDPHYS ---
Physician Documentation [facility] Name: Alexis Urbano Age: 64 yrs Sex: Male : 1955 Arrival Date: 04/22/2020 Time: 01:58 Bed 19 Private MD: ED Physician Fito Ward HPI: 04/22 02:07 This 64 yrs old Male presents to ER via EMS with complaints of fall, ankle rn injury. 02:07 The patient presents with decreased range of motion, an injury, pain. The complaints rn affect the right ankle. Onset: The symptoms/episode began/occurred yesterday. Context: The problem was sustained at home, The mechanism of injury involved eversion of the affected ankle. The patient can partially bear weight on the affected extremity. can ambulate using a cane. Modifying factors: The symptoms are alleviated by nothing, the symptoms are aggravated by weight bearing, movement. Severity of symptoms: At their worst the symptoms were moderate, in the emergency department the symptoms are unchanged. The patient has not experienced similar symptoms in the past. Reports slipped on ice, hurt right ankle with eversion injury, reports chronic back pain but does not feel like new injury to back from fall. Reports pain below right knee and right ankle. Took norco at home and didn't take pain away. . Historical: - Home Meds: 02:06 Albuterol Inhl every 4-6 hours [Active]; amlodipine oral [Active]; aspirin 81 mg Oral ll2 chew 1 tab once daily [Active]; bumetanide 2 mg Oral tab 1 tab once daily [Active]; clonidine HCl 0.2 mg Oral tab 2 times per day [Active]; doxazosin 2 mg Oral tab 1 tab once daily [Active]; gabapentin 100 mg Oral cap 3 times per day [Active]; hydralazine 100 mg Oral tab 3 times per day [Active]; hydrocodone-acetaminophen 10-325 mg Oral tab every 6 hours [Active]; levamir [Active]; Metoprolol Tartrate Oral [Active]; Plavix Oral [Active]; pravastatin 40 mg Oral tab 1 tab once daily [Active]; tizanidine 4 mg Oral tab twice a day [Active]; Zanaflex Oral [Active]; - PMHx: 02:06 Diabetes - NIDDM; Dialysis; M,W,F; ESRD; Hypertension; GERD; ll2 - Immunization history:: Adult Immunizations unknown. - Social history:: Smoking status: unknown. - Family history:: not pertinent. - Hospitalizations: : No recent hospitalization is reported. ROS: 02:07 Constitutional: Negative for fever, chills, and weight loss, Eyes: Negative for injury, rn pain, redness, and discharge, Neck: Negative for injury, pain, and swelling, Cardiovascular: Negative for chest pain, palpitations, and edema, Respiratory: Negative for shortness of breath, cough, wheezing, and pleuritic chest pain, Abdomen/GI: Negative for abdominal pain, nausea, vomiting, diarrhea, and constipation, Back: + chronic back pain MS/Extremity: + right ankle pain and injury Skin: Negative for injury, rash, and discoloration, Neuro: Negative for headache, weakness, numbness, tingling, and seizure. Exam: 02:07 Constitutional: This is a well developed, well nourished patient who is awake, alert, rn appears in pain. Head/Face: Normocephalic, atraumatic. Cardiovascular: Bradycardic, regular Respiratory: No increased work of breathing, no retractions or nasal flaring. Abdomen/GI: soft, non-tender Back: No spinal tenderness. MS/ Extremity: Pulses equal, no cyanosis. NV intact, moving ankle back and forth, mild tenderness lateral malleolus and proximal tib-fib region. No knee tenderness or swelling. Neuro: Awake and alert, GCS 15 Vital Signs: 02:01 BP 145 / 47; Pulse 55; Resp 20; Temp 98.5; Pulse Ox 97% ; Weight 74.84 kg; Height 5 ft. ll2 6 in. (167.64 cm); 02:15 BP 137 / 68; Pulse 55; Resp 20; Pulse Ox 98% on R/A; ll2 02:01 Body Mass Index 26.63 (74.84 kg, 167.64 cm) ll2 MDM: 01:58 Patient medically screened. rn 03:30 Differential diagnosis: fracture, sprain, arthritis. Data reviewed: vital signs, nurses rn notes, radiologic studies, plain films, and as a result, I will discharge patient. Counseling: I had a detailed discussion with the patient and/or guardian regarding: the historical points, exam findings, and any diagnostic results supporting the discharge/admit diagnosis, radiology results, the need for outpatient follow up, to return to the emergency department if symptoms worsen or persist or if there are any questions or concerns that arise at home. Response to treatment: the patient's symptoms have mildly improved after treatment, and as a result, I will discharge patient. Special discussion: I discussed with the patient/guardian in detail that at this point there is no indication for admission to the hospital. It is understood, however, that if the symptoms persist or worsen the patient needs to return immediately for re-evaluation. Based on the history and exam findings, there is no indication for further emergent testing or inpatient evaluation. I discussed with the patient/guardian the need to see the orthopedic surgeon for further evaluation of the symptoms. ED course: Pt with stable non-operative distal right fibular fracture, will put in walking boot as pt does not want splint, and dc home with ortho f/u. Has hydrocodone at home.. 04/22 01:59 Order name: XRAY Ankle RIGHT 3 view rn 04/22 01:59 Order name: XRAY Tib Fib RIGHT rn 04/22 03:27 Order name: Splint: walking boot; Complete Time: 03:52 rn Administered Medications: 02:13 Drug: [place] 10 mg-325 mg 1 tabs Route: PO; ll2 03:52 Follow up: Response: No adverse reaction ll2 Disposition: 04/22/20 03:32 Discharged to Home. Impression: Nondisplaced fracture of lateral malleolus of right fibula. - Condition is Stable. - Discharge Instructions: Ankle Fracture, Undisplaced Fibular Ankle Fracture Treated With Immobilization, Adult. - Medication Reconciliation Form, Thank You Letter, Antibiotic Education, Prescription Opioid Use form. - Follow up: Private Physician; When: As needed; Reason: Recheck today's complaints, Re-evaluation by your physician. - Problem is new. - Symptoms have improved. Signatures: Dispatcher [employer] EDFito St MD MD rn [place], Lacie, RN RN ll2 Corrections: (The following items were deleted from the chart) 03:57 03:32 04/22/2020 03:32 Discharged to Home. Impression: Nondisplaced fracture of lateral ll2 malleolus of right fibula. Condition is Stable. Forms are Medication Reconciliation Form, Thank You Letter, Antibiotic Education, Prescription Opioid Use. Follow up: Private Physician; When: As needed; Reason: Recheck today's complaints, Re-evaluation by your physician. Problem is new. Symptoms have improved. rn
[2020-04-22 04:02] VITALS: TEMP 98.5
[2020-04-22 04:03] VITALS: BP 137/68; O2SAT 98
--- NOTE | 2020-04-22 09:23 | RAD REPORT ---
EXAM DESCRIPTION: RAD - Ankle Right 3 View - 04/22/2020 2:32 am CLINICAL HISTORY: PAIN COMPARISON: None. TECHNIQUE: XR ANKLE 3 OR MORE VIEWS 04/22/2020 1:59 AM SENIOR ENGINEERING MANAGER FINDINGS: There is a suspected fracture of the distal tip of the fibula. Joint spaces are preserved. There is moderate lateral soft tissue swelling. There are heavy vascular calcifications throughout the ankle. IMPRESSION: Suspected distal fibular fracture. Electronically signed by: Rey Rea MD 04/22/2020 3:09 AM SENIOR ENGINEERING MANAGER Due to temporary technical issues with the PACS/Fluency reporting system, reports are being signed b y the in house radiologists without review as a courtesy to insure prompt reporting. The interpreting radiologist is fully responsible for the content of the report.
--- NOTE | 2020-04-22 09:48 | RAD REPORT ---
EXAM DESCRIPTION: RAD - Tib Fib Right - 04/22/2020 2:36 am CLINICAL HISTORY: PAIN COMPARISON: None. TECHNIQUE: XR TIBIA FIBULA 04/22/2020 1:59 AM ELA TEACHER FINDINGS: There is an old proximal fibular fracture. Joint spaces are preserved. There are heavy v ascular calcifications throughout. IMPRESSION: No acute osseous findings. Electronically signed by: Rey Rea MD 04/22/2020 3:09 AM ELA TEACHER Due to temporary technical issues with the PACS/Fluency reporting system, reports are being signed by the in house radiologists without review as a courtesy to insure prompt reporting. The interpreting radiologist is fully responsible for the content of the report.
== END 2020-04-22 03:57 | disposition home or self-care (01) ==
LOC: ER 01:53
DX: S82.64XA Nondisplaced fracture of lateral malleolus of right fibula, initial encounter for closed fracture (principal); W00.0XXA Fall on same level due to ice and snow, initial encounter; Y93.9 Activity, unspecified; Y92.9 Unspecified place or not applicable
CPT/HCPCS: 99284

== ENCOUNTER 2020-07-05 22:49 | Emergency (ER) | payer OTHER ==
--- OUTSIDE RECORDS SUMMARY | 2020-07-05 22:52 | XMS REPORT | Continuity of Care Document ---
:1955 Author Organization [facility] t Address [address] [place] [address] Care Team Providers Name Role Phone Moiz Montoya MD Primary Care Physician Brian Vega MD Attending Clinician Shayna CABALLERO Attending Clinician Kayode CABALLERO, Sirahenri Attending Clinician Chetan Donohue MD Attending Clinician Trae BERNAL Attending Clinician Radiology Attending Clinician Unavailable Pob, Lab Main Attending Clinician Unavailable SALENA RUSSELL Attending Clinician Unavailable SWETHA PISANO Attending Clinician Unavailable LEANA KHALIL Attending Clinician Unavailable INGRIS DANIELSON Attending Clinician Unavailable ESMER KERN Attending Clinician Unavailable KAYODE Admitting Clinician Unavailable THEODORE WEIR Admitting Clinician Unavailable Payers Payer Name Policy Type Policy Effective Expiration Source Number Date Date TEXANPLUSTEXANPLUS [id number] 2019 Rachelto n [id number] 2020-Pr 00:00:00 M ethodist esentHMO [facility] NETWK [id number] I [facility] - MEDICARE MGD - Medical CAREOPTUM NON-[facility] MCR [id number] for all datesTransplants TEXANPLUSTEXANPLUS O [id number] 2014 [facility] I [facility] [id number] 2015-Pr 00:00:00 - Medical esentMaps Contracted Cent er WELLCARE MEDICARE MGD [id number] [address] [facility] 00:00:00 - Medical [id number] 2019-P C enter resent Problems Condition Condition [...] ncy ncy Osteoarthr Osteoarthr Problem Active V waqarage itis itis 5-18 Family 00:00: Practic 00 e Low back Low Back Problem Active Willian ge pain Pain 5-18 Family 00:00: Practic e Type 2 Type 2 Problem Active [facility] diabetes Diabetes -18 Family mellitus Mellitus 00:00: Practi c with with 00 e multiple Multiple complicati Complicati ons ons Chronic Chronic Problem Active [facility] hepatitis Hepatitis 03-12 Fami ly C [...] Allergy 1-26 in mouth, [facility] - 00:[facility]: [facility] Medical 00 okay with Center shrimp/cr awfish Family History Family Member Diagnosis Comments Start Date Stop Date Source Natural father Other [place] [facility] Natural mother Dementia [place] [facility] Social History Social Habit Start Date Stop Date Quantity Comments Source History of tobacco Cigarette Smoker [place] use [facility] Cigarettes smoked 2019-12-10 2019-12-10 [place] current (pack per 00:00:00 00:00:[address] day) - Reported Tobacco use and 2019-12-10 2019-12-10 Never used [place] exposure 00:00:00 00:00:00 [facility] Alcohol intake 2019-12-10 2019-12-10 Ex-drinker [place] 00:00:00 00:00:00 (finding) [facility] Alcohol Comment 2015-07-23 2015-07-23 Quit drinking IRMA Mazakes - 00:00:00 00:00:00 2005; social Medical [facility] er drinker Tobacco Comment 2015-03-31 2015-03-[address] [facility] kes - 00:00:00 00:00:00 [facility] Sex Ass[birth year] At [birth year] [place] 00:00:00 00:00:00 [facility] Smoking Status Start Date Stop Date Source Light Tobacco Smoker [facility] Current every day 2019-12-10 00:00:00 [place] [facility] smoker Former smoker 2018-06-05 00:00:00 2018-06-05 00:00:00 [facility] Medications Ordered Filled Start Stop [...] by mouth daily for 30 days. clopidogreL 2019- 2020- No 75mg QD Take 1 Willie [...] times a day. gabapentin 2019-03 Yes 100mg [id number] Take 100 [facility] (NEURONTIN) 0-06 [id number] mg by Natacha virk 100 mg 16:07: 3D mouth 3 st capsule 01 (three) times a day. calcium 2019-03 Yes Take by [place] acetate 0-06 mouth. Methodi (PHOSLO 16:07: st ORAL) 01 pravastatin 2019-03 Yes 40mg QD Take 40 mg [place] (PRAVACHOL) 0-06 by mouth Meth michelle 40 [...] 12:44: 00:[address] 21 :00 tiZANidine 2019- 2020- No 2mg Q8H Take 2 mg [place] (ZANAFLEX) 0-01 01 by mouth Meth michelle 2 MG tablet 12:43: 00:[address] 54 :00 (eight) hours as needed for muscle spasms. aspirin 81 2019-0 Yes 81mg QD Take 81 mg C [...] (two) Center tablet times daily . HYDROcodone 2019-0 Yes 1{tbl} Take [address] -acetaminop 4-02 tablet by Susie es - hen (NORCO 10:18: mouth Medica l 10-325) 27 every 6 Center 10-325 mg (six) per tablet hours as needed for Pain. tiZANidine 2019-0 Yes 4mg Q.5D Take [address] (ZANAFLEX) 4-02 by mouth 2 Susie es - 4 MG tablet 10:18: (two) Medic al 27 times Center daily. gabapentin 2019-0 Yes 100mg Q.5D Take [address] (NEURONTIN) 4-02 mg by [facility] - 300 MG 10:18: mouth 2 Medical capsule 27 (two) Center times daily . clopidogrel 2019-0 Yes 75mg QD Take [address] (PLAVIX) 75 4-02 by mouth Luke s - mg tablet 10:18: daily. Medica l 27 Center lactulose 2018-0 Yes TAKE 20 [facility] (CHRONULAC) 3-26 GRAM [facility] - 10 gram/15 00:00: (30ML) BY Wy dical mL solution 00 MOUTH ONCE Ce nter A DAY NEEDED zolpidem 2019-0 Yes TAKE [address] (AMBIEN) 10 2-21 TABLET [facility] - mg tablet 00:00: ORALLY AT Med ical 00 BEDTIME Center NEEDED atorvastati 2018-0 Yes 20mg Take [address] n (LIPITOR) 4-26 by mouth. Susie es - 20 MG 00:00: Medical tablet 00 Center hydrALAZINE 2017-0 Yes 50mg Q.[id number] Take [address] (APRESOLINE 2-06 [id number] tablets [facility] - ) 25 MG 00:00: [...] route. carvedilol carvedilol No 1 BID carvedilol [facility] 6.25 mg 6.25 mg 6.25 mg Family tablet Take tablet Take tablet Practic 1 tablet 1 tablet Take 1 e twice a day twice a day tablet by oral by oral twice a route. route. day by oral route. clonidine clonidine No 1 BID clonidine [facility] HCl 0.2 mg HCl 0.2 mg HCl 0.2 mg Family tablet Take tablet Take tablet Practic 1 tablet 1 tablet Take 1 e twice a day twice a day tablet by oral by oral twice a route. route. day by oral route. gabapentin gabapentin No 1capsul TID gabapentin [facility] 100 mg 100 mg e(s) 100 mg Family capsule capsule capsule Practi c Take 1 Take 1 Take 1 e capsule 3 capsule 3 capsule 3 times a day times a day times a by oral by oral day by route. route. oral route. lactulose lactulose No 15mL Q1D lactulose [facility] 10 gram/15 10 gram/15 10 gram/15 Family mL (15 mL) mL (15 mL) mL (15 mL) Practic oral oral oral e solution solution solution Take 15 mL Take 15 mL Take 15 mL every day every day every day by oral by oral by oral route as route as route as directed. directed. directed. [place] 10 [place] 10 No 1 Q4H [place] 10 Milo tiffanie mg-325 mg mg-325 mg mg-325 mg Family tablet Take tablet Take tablet Practic 1 tablet 1 tablet Take 1 e every 4 every 4 tablet hours by hours by every 4 oral route oral route hours by as needed. as needed. oral route as needed. pravastatin pravastatin No 1 Q1D pravastati [facility] 40 mg 40 mg n 40 [...] 30 Sensipar 30 No 1 Q1D Sensipar [facility] mg tablet mg tablet 30 mg Fami ly Take 1 Take 1 tablet Practic tablet tablet Take 1 e every day every day tablet by oral by oral every day route. route. by oral route. sildenafil sildenafil No 1 Q1D sildenafil [facility] 100 mg 100 mg 100 mg Family tablet Take tablet Take tablet Practic 1 tablet 1 tablet Take 1 e every day every day tablet by oral by oral every day route. route. by oral route. tizanidine tizanidine No 1 Q6H tizanidine [facility] 4 mg tablet 4 mg tablet [...] Date Status Commen ts Source Name Name influenza, influenza, 2019-01-04 Completed [facility] injectable, injectable, 00:00:00 Practice quadrivalent quadrivalent pneumococcal pneumococcal 2019-01-04 Completed [facility] Chris hale conjugate PCV 13 conjugate PCV 13 00:00:00 Pr actice PPD Test 2016-04-03 Completed [facility] - 00:[facility]:00 Medical Center Vital Signs Vital Name Observation Time Observation Value Comments Source Height 2019-09-03 66 [in_i] [facility] Family 00:00:00 Practice Height 2019-07-23 66 [in_i] [facility] 00:00:00 Practice BMI (Body Mass 2019-07-23 25.8 kg/m2 [facility] Famil y Index) 00:00:00 Practice Body Weight 2019-07-23 160 [lb_av] [facility] Family 00:00:00 Practice Systolic blood 2019-12-10 206 mm[Hg] CARE ADVOCATE Lisandro ahuja [place] pressure 14:40:00 aware [facility] Diastolic blood 2019-12-10 88 mm[Hg] CARE ADVOCATE Lisandro ahuja [place] pressure 14:40:00 aware [facility] Heart rate 2019-12-10 69 /min [place] 14:40:00 [facility] Body temperature 2019-12-10 37.11 Idalia [place] 12:15:24 [facility] Respiratory rate 2019-12-10 16 /min [place] 12:15:24 [facility] Oxygen saturation 2019-12-10 96 /min [place] in Arterial blood 12:15:24 [facility] by Pulse oximetry Body weight 2019-12-10 72.848 kg [place] 06:00:00 [facility] BMI 2019-12-10 25.92 kg/m2 [place] 06:00:00 [facility] Body height 2019-12-09 167.6 cm [place] 16:00:00 [facility] Procedures Procedure Date / Time Performing Clinician Source Performed ECG 12-LEAD 2019-12-10 14:01:00 Lisandro Romo [facility] TROPONIN 2019-12-10 12:50:00 Lisandro Romo [facility] BASIC METABOLIC PANEL 2019-12-10 05:33:00 Solange Headley [facility] ESTIMATED GFR 2019-12-10 05:33:00 Solange Headley [facility]odist HEMODIALYSIS 2019-12-09 20:17:14 Skyler Rand Meth odist [place] < 1 HOUR 2019-12-09 19:26:47 Martita Corral Meth odist HEPATITIS B SURFACE 2019-12-09 19:13:00 Skyler Rand [facility] ANTIGEN HEPATITIS B SURFACE AB, 2019-12-09 19:13:00 Skyler Rand [facility] QUANTITATIVE HEMODIALYSIS 2019-12-09 16:51:41 Skyler Rand Meth odist HEMODIALYSIS 2019-12-09 16:09:37 Skyler Rand Meth odist POC GLUCOSE 2019-12-09 16:02:00 ShaynaMartita odist UT AN ELECTIVE 2019-12-09 13:56:58 LawrenceAntonieta finn Nazario Natacha ethodist SUPRAGLOTTIC AIRWAY AORTOGRAPHY, POSSIBLE 2019-12-09 13:47:00 Martita Corral [facility] ANGIOPLASTY POC GLUCOSE 2019-12-09 12:42:00 ShaynaMartita Meth odist POC PANEL 2019-12-09 10:37:00 ShaynaMartita odist COMPREHENSIVE METABOLIC 2019-12-09 10:32:00 Martita Corral [facility] PANEL TYPE AND SCREEN 2019-12-09 10:32:00 Nazario Wilson ESTIMATED GFR 2019-12-09 10:32:00 ShaynaMartita odist XR CHEST 2 VW 2019-12-05 13:38:59 ShaynaMartita Meth odist ECG PRE/POST OP 2019-12-05 13:07:15 ShaynaMartita odist PROTHROMBIN TIME WITH INR 2019-12-05 12:45:00 Shayna Nazmachelle chaparro [facility] PARTIAL THROMBOPLASTIN 2019-12-05 12:45:00 Martita Corral on [facility] TIME (PTT) COVID-19 QUALITATIVE PCR 2019-12-05 12:37:00 Martita Corral [facility] HC COMPLETE BLD COUNT 2019-12-05 12:36:00 Martita Corral [facility] W/AUTO DIFF HEMOGLOBIN A1C 2019-12-05 12:36:00 Nazario Wilson odist Behzad Christine SARS-COV2/RT-PCR ([facility] & 2019-10-04 09:58:[address] [facility] Medical Center SARS-COV2/RT-PCR ([facility] & 2019-09-30 20:00:[address] [facility] Plan of Care Planned Activity Planned Date Details Comments Source Future Scheduled 2020-10-04 INFLUENZA VACCINE [place] [facility] Test 00:00:00 [code = INFLUENZA VACCINE] Future Scheduled 2020-03-[address] [facility] - Test 00:00:00 (12+) [code = Medical Center DEPRESSION SCREENING (12+)] Future Scheduled 2019-11-05 INFLUENZA VACCINE (#1) [facility] Test 00:00:00 [code = INFLUENZA Medical Ce nter VACCINE (#1)] Future Scheduled 2019-03-[address] [facility] - Test 00:00:00 (procedure) [code = [facility] 83347709] Future Scheduled 2016-09-[address] [facility] - Test 00:00:00 measurement [facility] (procedure) [code = 51256238] Future Scheduled 2016-06-[address] [facility] - Test 00:00:00 malignant neoplasm of Medica Center colon (procedure) [code = 434320592] Future Scheduled 2015-03-[address] [facility] - Test 00:00:00 WELLNESS (YEAR 2 or Medical Center FIRST YEAR if no IPPE) [code = MEDICARE ANNUAL WELLNESS (YEAR 2 or FIRST YEAR if no IPPE)] Future Scheduled 2007-08-29 COLONOSCOPY SCREENING [place] [facility] Test 00:00:00 [code = COLONOSCOPY SCREENING] Future Scheduled 2007-08-29 SHINGLES VACCINES (#1) [place] [facility] Test 00:00:00 [code = SHINGLES VACCINES (#1)] Future Scheduled 1973 COVID-19 VACCINE (1) [place] [facility] Test 00:00:00 [code = COVID-19 VACCINE (1)] Future Scheduled 1967-08-[address] DI[address] EYE EXAM [facility] - Test 00:00:00 [code = DIABETIC EYE Medical Center EXAM] Future Scheduled 1967-08-[address] [facility] - Test 00:00:00 examination Medical Center (regime/therapy) [code = 316762605] Future Scheduled 1967-08-29 Urine screening for [facility] - Test 00:00:00 protein (procedure) [facility] [code = 192421025] Future Scheduled 1967-08-29 DIABETES: RETINAL EYE [place] [facility] Test 00:00:00 EXAM [code = DIABETES: RETINAL EYE EXAM] Future Scheduled 1967-08-29 DIABETIC FOOT EXAM [place] [facility] Test 00:00:00 [code = DIABETIC FOOT EXAM] Future Scheduled 1963-08-[address] [facility] - Test 00:00:00 0-64 YRS (1 of 1 - Medical C enter PPSV23) [code = PNEUMOCOCCAL VACCINE 0-64 YRS (1 of 1 - PPSV23)] Encounters Start End Encounter Admission Attending Care Care Encounter Source Date/Time Date/Time Type Type Clinicians Facility Department ID 2019-12-09 2019-12-10 Outpatient SOLANGE HEADLEY [facility] [id number] [place] 00:00:00 00:00:00 276 Method i 2019-12-05 2019-12-05 Outpatient SHAYNA, [facility] [id number] [place] 00:00:00 00:00:00 UTTAM 188 Method i 2019-12-05 2019-12-05 Outpatient SHAYNA, [facility] [id number] [place] 00:00:00 00:00:00 UTTAM 476 Method i 2019-10-10 2019-10-10 Hospital Radiology [facility] [id number] 12:34:44 23:59:00 Encounter [place] [id number] [place] [id number] [place] [id number] 2019-10-10 2019-10-10 [place] [address] Cutter Rodney Steen [facility] [id number] 12:38:05 12:53:05 Visit Lab Main [place] [id number] [place] [id number] Professio [id number] [address] 2019-09-03 2019-09-03 Veronica [facility] [place] - [id number] [place] 00:00:00 00:00:00 [facility] traci elkins, CARE ADVOCATE: Medical - Practi c [address] [email or web address]_V@H_ e [facility], [address] [address], [place] [address] , Ph. 2019-07-23 2019-07-23 Veronica [facility] [place] - [id number] [place] 00:00:00 00:00:00 [facility] traci elkins, CARE ADVOCATE: Medical - Practi c [address]_[email or web address]_V@H_ e [facility], [address], [place] [address] , Ph. Results Test Description Test Time Test Comments Results Result Comments Source ECG 12 lead 2019-12-10 16:17:46 Test Item Value Reference Range Interpretation Comme nts Ventricular rate (test code = 253) 70 Atrial rate (test code = 255) 70 UT interval (test code = 266) 144 QRSD interval (test code = 260) 92 QT interval (test code = 264) 450 QTC interval (test code = 265) 486 P axis 1 (test code = 267) 47 QRS axis 1 (test code = 268) -10 T wave axis (test code = 270) 147 EKG impression (test code = 273) Normal sinus rhythm-Nonspecific ST and T wave abnormality-Prolonged QT-Abnormal ECG-In automated comparison with ECG of 05-DEC-2019 13:07,-Nonspecific T wave abnormality, worse in Lateral leads- Nazario Methodist[facility] [place] < 1 [id number] 19:38:18Hm Interface, Radiology Results Incoming - 12/09/2019 7:41 PM CDTFormatting of this note might be di fferent from the original.EXAMINATION: [place] < 1 HOURCLINICAL HISTORY: None provided.IMPRESSION:1. Fluoroscopy was provided in the operating. I was not present during the procedure.2. Please refer to the operative report for findings.3. Total Dose: 114 fluoroscopic images. 27.1 minutes of fluoroscopy time.Nazario [id number] 13:56:58WeAntonieta kingsley CRNA 12/09/2019 1:57 PMAirway Date/Time: 12/09/2019 1:57 PMPerformed by: Antonieta Lawrence CRNAAuthorized by: Sameer Donohue MD Location: ORUrgency: ElectiveDifficult Airway: No Anesthesiologist: Sameer Donohue MDResident/AIRCRAFT ASSEMBLER/AA: Antonieta Lawrence, CRNAPerformed by: resident/AIRCRAFT ASSEMBLER/AAPreoxygenated with 100% O2: Yes C-spine Precautions Maintained Throughout: Yes Mask Ventilation: Not attemptedFinal Airway Type: Supraglottic airwayFinal LMA: I-GelLMA Size: 4Number of Attempts at Approach: 1[facility] MethodistECG Pre/Post [id number] 00:44:14 Test Item Value Reference Range Interpretation Comments Ventricular rate (test 70 code = 253) Atrial rate (test code = 70 255) UT interval (test code = 136 266) QRSD [...] ECG-No previous ECGs available-Electronica lly Signed By Samuel CABALLERO, Htut ([id number]) on 12/06/2019 12:44:11 AM Nazario SchmidXR Chest 2 [id number] 16:56:18Hm Interface, Radiology Results Incoming - 12/05/2019 4:59 PM CDT EXAMINATION: XR CHEST 2 VWCLINICAL HISTORY: Z01.818 Encounter for other preprocedural examination, PRE OPCOMPARISON: None.IMPRESSION:Heart and mediastinum: Cardiomediastinal silhouette is prominent. Atherosclerotic calcifications of the aortic arch.Lungs and pleura: There is no focal airspace disease, pleural effusion or pneumothorax.Bones: No acute abnormality.Spinal cord stimulator device seen overlying the thoracic spine.[facility]-[id number] and approved by resident surgeon/fellow: Nate Schmitz, Daniel Abbott, personally reviewed the images and resident's/ fellow's findings and agree with the final report.Nazario Schmid SARS-CoV2/RT-PCR ([facility] Ref Labs)2019-10-04 22:28:00 Test Item Value Reference Range Interpretation Comments SARS-COV2/RT-PCR Negative Not Detected, (test code = Negative, See 26535-2) external report for linked test SARS-COV-2 [facility] PERFORMING LAB (test code = 84023-5) STEVEN (test code = Negative result for [...] of the Act. Fact Sheet for Healthcare Providers:https://www.[employer] idel.[facility]/sites/default/f eunice/product/documents/F act_Sheet_HC_Providers_L mmz_TNYX-XiV-0.pdf Fact Sheet for Healthcare Patients:https://www.CodeHS.[facility]/sites/default/fi les/product/documents/Fa ct_Sheet_Patients_Lyra_S ARS-CoV-2.pdf Performing Laboratory:[facility] [place] [address] [facility])2019-10-04 22:28:00 Test Item Value Reference Range Interpretation Comments SARS-COV2/RT-PCR (test Negative Not Detected, Negative, code = 7540615) See external report for linked test SARS-COV-2 PERFORMING LAB [facility] (test code = 7668153) Negative result for this test determines that [...] 564(g) of the Act.Fact Sheet for Healthcare Providers:https://www.[employer].[facility]/sites/default/files/product/documents/Fact_Shee u_WO_Xtzmchbom_Puem_MYXK-DfZ-4.pdfFact Sheet for Healthcare Patients:https://www.quidel.com/sites/default/files/product/ documents/Etlg_Fjzsg_Ggtrkeyr_Lukr_UPCA-EnH-2.pdfPerforming Laboratory:[facility], [place] [address]CMGW-NJH4/RT-PCR ([facility])2019-10-01 04:23:00 Test Item Value Reference Range Interpretation Comments SARS-COV2/RT-PCR (test code Negative Not Detected, Negative, = 7474027) See external report for linked test SARS-COV-2 PERFORMING LAB [facility] (test code = 7480600) Negative results do not preclude SARS-CoV-2 infection [...] of the Act.Fact Sheet for Healthcare Pro viders:https://www.[employer].[facility]/Documents/Xpert%20Xpress%20SARS%20CoV-2/Fact%20Sh eets/823-1842%86VZYN-YSU-4%20HEALTHCARE%20PROVIDERS%20FACT%20SHEET.pdfFact Sheet for Healthcare Patients:https://www.[employer].[facility]/Documents/Xpert%20Xpress%20SARS%20CoV-2/Fact%20Sheets/210-3801%20SARS-COV -2%20PATIENT%20FACT%20SHEET.pdfPerforming Laboratory:[facility], [place] [address]OXSPMHE IMAGING, MULTI, PHARM, SPECT 2019-02-21 15:54:00Referring: Dr. Schultz [facility] PROCEDURE: MYOCARDIAL PERFUSION SPECT IMAGING (Rest/Stress)CPT CODE: 66914 INDICATION: Renal transplant evaluation, hypertension, shortness of [...] Darnell Verified Date/Time: 02/21/2019 15:54:30 Reading Location: [address] Reading Room [id number] 17:11:00 Test Item Value Reference Range Interpretation Comments PROSTATE SPECIFIC ANTIGEN (BEAKER) 0.8 ng/mL 0.0-4.0 (test code = 844) HEPATITIS B SURFACE [id number] 17:11:00 Test Item Value Reference Range Interpretation Comments HEPATITIS B SURFACE ANTIBODY 612.9 mIU/mL <8.0 H (BEAKER) (test code = 647) PROTHROMBIN TIME/[id number] 14:59:00 Test Item Value Reference Range Interpretation Comments PROTIME (BEAKER) (test code = 15.6 seconds 11.7-14.7 H 759) INR (BEAKER) (test code = 370) 1.2 <=5.9 RECOMMENDED COUMADIN/WARFARIN INR THERAPY RANGESSTANDARD DOSE: 2.0 - 3.0 Includes: PROPHYLAXIS forvenous thrombosis, systemic embolization; TREATMENT for venous thrombosis and/or pulmonary embolus.HIGH RISK: Target INR is 2.5-3.5 for patients with mechanical heart valves.BASIC METABOLIC [id number] 14:58:00 Test Item Value Reference Range Interpretation [...] APPLICABLE FOR DIALYSIS PATIEN TS. HEPATIC FUNCTION [id number] 14:53:00 Test Item Value Reference Range Interpretation [...] 6-55 347) CBC W/PLT COUNT & AUTO [id number] 14:19:00 Test Item Value Reference Range Interpretation [...] = 2801) FLOW PRA CLASS I AND [id number] 12:02:00 Test Item Value Reference Range Interpretation Comments DATE OF SERUM (BEAKER) 9110312 (test code = 228) SERUM # (BEAKER) (test 866079 code = 2290) FLOW PRA CLASS I AND II See Scanned Report (test code = 2421) HEPATITIS B SURFACE [id number] 13:18:00 Test Item Value Reference Range Interpretation Comments HEPATITIS B SURFACE ANTIBODY < mIU/mL <8.0 (BEAKER) (test code = 647) [id number] 13:08:00 Test Item Value Reference Range Interpretation Comments PROSTATE SPECIFIC ANTIGEN (BEAKER) 0.9 ng/mL 0.0-4.0 (test code = 844) FLOW PRA CLASS I AND [id number] 16:00:00 Test Item Value Reference Range Interpretation Comments DATE OF SERUM (BEAKER) 225964 (test code = 2289) SERUM # (BEAKER) (test 321080 code = 2290) FLOW PRA CLASS I AND II See Scanned Report (test code = 2421) BASIC METABOLIC [id number] 15:51:00 Test Item Value Reference Range Interpretation [...] APPLICABLE FOR DIALYSIS PATIEN TS. HEPATIC FUNCTION [id number] 15:48:00 Test Item Value Reference Range Interpretation [...] 6-55 347) CBC W/PLT COUNT & AUTO [id number] 15:11:00 Test Item Value Reference Range Interpretation [...] (test code = 417) 0.00AFB CULTURE + [id number] 19:58:00 Test Item Value Reference Range Interpretation Comments CULTURE (BEAKER) (test No acid-fast bacilli code = 1095) isolated in 42 days AFB SMEAR (BEAKER) No acid fast bacilli (test code = 994) seen AFB CULTURE + [id number] 19:58:00 Test Item Value Reference Range Interpretation Comments CULTURE (BEAKER) (test No acid-fast bacilli code = 1095) isolated in 42 days AFB SMEAR (BEAKER) No acid fast bacilli (test code = 994) seen AFB CULTURE + [id number] 18:21:00 Test Item Value Reference Range Interpretation Comments CULTURE ([facility]) (test No acid-fast bacilli code = 1095) isolated in 42 days AFB SMEAR ([facility]) No acid fast bacilli (test code = 994) seen POCT-GLUCOSE [id number] 10:30:00 Test Item Value Reference Range Interpretation Comments POC-GLUCOSE METER 468 mg/dL 70-110 HH TESTED AT [facility] 6720 ([facility]) (test code = JANICE [place] 1538) [address] CREATINE KINASE (CK), TOTAL AND [id number] 08:31:00 Test Item Value Reference Range Interpretation Comments CREATINE KINASE TOTAL ([facility]) 42 U/L 29-200 (test code = 380) CREATINE KINASE-MB ([facility]) (test 2.3 ng/mL 0.0-6.6 code = 750) CREATINE KINASE-MB INDEX ([facility]) 5.5 % (test code = 395) Effective 01/21/2014: CK-MB Reference Range ChangeNew: 0.0-6.6 Previous: 0.0-4.9CK-MB Reference Range:<6.7 Normal6.7-10.0 Borderline>10.0 AbnormalTROPONIN [id number] 08:31:00 Test Item Value Reference Range Interpretation Comments TROPONIN I (AKER) (test code = 0.05 ng/mL 0.00-0.03 H [...] acute neurological disease, and persistent tachyarrhythmia.BASIC METABOLIC [id number] 08:27:00 Test Item Value Reference Range Interpretation [...] S NOT APPLICABLE FOR DIALYSIS PATIEN TS. [id number] 08:24:00 Test Item Value Reference Range Interpretation Comments MAGNESIUM (BEAKER) (test code = 2.4 mg/dL 1.6-2.6 627) CBC W/PLT COUNT & AUTO [id number] 08:17:00 Test Item Value Reference Range Interpretation [...]
[2020-07-06] MEDS ORDERED: ONDANSETRON 4 MG/2 ML VIAL ONE (01:05)
[2020-07-06] MEDS ORDERED: FUROSEMIDE 40 MG/4 ML VIAL ONE (01:05)
[2020-07-06] MEDS ORDERED: MORPHINE 2 MG/ML SYR ONE ×2 (01:05→03:33)
[2020-07-06] MEDS ORDERED: FUROSEMIDE 20 MG/ 2ML VIAL ONE (01:05)
[2020-07-06 01:50] LABS: Absolute Lymphocytes (CBC) 0.9 K/uL (0.7-4.9); Hematocrit 37.5 % (39.6-49.0); Lymphocytes % 15.1 % (15.3-44.8); MPV 9.5 fL (7.6-11.3); RBC Red Blood Cell Count 3.92 M/uL (4.33-5.43)
[2020-07-06 02:01] LABS: Protime INR 1.04
[2020-07-06 02:37] LABS: ALT/SGPT 28 U/L (12-78); AST/SGOT 33 U/L (15-37); Albumin 3.7 g/dL (3.4-5.0); Alkaline Phosphatase 204 U/L (45-117); BUN Blood Urea Nitrogen 66 mg/dL (7-18); Bicarbonate 21 mmol/L (21-32); Bilirubin Direct 0.5 mg/dL (0-0.2); Bilirubin Total 0.8 mg/dL (0.2-1.0); Glucose Level 127 mg/dL (74-106); Magnesium 2.7 mg/dL (1.8-2.4); Potassium 5.5 mmol/L (3.5-5.1); Protein, Total 7.8 g/dL (6.4-8.2); Sodium Level 131 mmol/L (136-145); Troponin (Emerg Dept Use Only) < 0.02 ng/mL (0.0-0.045)
[2020-07-06 02:38] LABS: NT PRO-BNP > 175000 pg/mL (<125)
--- NOTE | 2020-07-06 04:37 | EDPHYS ---
Physician Documentation [facility] Name: Alexis Urbano Age: 64 yrs Sex: Male : 1955 Arrival Date: 07/05/2020 Time: 22:50 Bed 13 Private MD: ED Physician Hardik Flannery HPI: 07/06 01:32 This 64 yrs old Male presents to ER via Wheelchair with complaints of mh7 Breathing Difficulty. 01:32 The patient has shortness of breath at rest, with light activity. Onset: The mh7 symptoms/episode began/occurred yesterday. Duration: The symptoms are continuous, and are unchanged since they started. The patient's shortness of breath is aggravated by light activity, is alleviated by nothing. Associated signs and symptoms: Pertinent positives: nausea, Pertinent negatives: chest pain, non-productive cough, productive cough, diaphoresis, dizziness, fever, hemoptysis, loss of consciousness, numbness in extremities, visual changes, vomiting. Severity of symptoms: At their worst the symptoms were moderate yesterday, in the emergency department the symptoms are unchanged. Historical: - Allergies: 07/05 23:02 No Known Allergies; iw - Home Meds: 23:02 Albuterol Inhl every 4-6 hours [Active]; amlodipine oral [Active]; aspirin 81 mg Oral iw chew 1 tab once daily [Active]; bumetanide 2 mg Oral tab 1 tab once daily [Active]; clonidine HCl 0.2 mg Oral tab 2 times per day [Active]; doxazosin 2 mg Oral tab 1 tab once daily [Active]; gabapentin 100 mg Oral cap 3 times per day [Active]; hydralazine 100 mg Oral tab 3 times per day [Active]; hydrocodone-acetaminophen 10-325 mg Oral tab every 6 hours [Active]; Metoprolol Tartrate Oral [Active]; Plavix Oral [Active]; pravastatin 40 mg Oral tab 1 tab once daily [Active]; tizanidine 4 mg Oral tab twice a day [Active]; Zanaflex Oral [Active]; levamir [Active]; Plavix 75 mg Oral tab 1 tab once daily [Active]; - PMHx: 22:59 Diabetes - NIDDM; Dialysis; M,W,F; ESRD; Hypertension; iw - PSHx: 23:02 back; nerve stimulator in back; femur; iw - Immunization history:: Client reports receiving the 2nd dose of the Covid vaccine. - Social history:: Smoking status: Patient reports the use of cigarette tobacco products, smokes one-half pack cigarettes per day. ROS: 07/06 01:32 Constitutional: Negative for fever, chills, and weight loss, Eyes: Negative for injury, mh7 pain, redness, and discharge, ENT: Negative for injury, pain, and discharge, Neck: Negative for injury, pain, and swelling, Cardiovascular: Negative for chest pain, palpitations, and edema, Abdomen/GI: Negative for abdominal pain, nausea, vomiting, diarrhea, and constipation, : Negative for injury, bleeding, discharge, and swelling, MS/Extremity: Negative for injury and deformity, Skin: Negative for injury, rash, and discoloration, Neuro: Negative for headache, weakness, numbness, tingling, and seizure, Psych: Negative for depression, anxiety, suicide ideation, homicidal ideation, and hallucinations, Allergy/Immunology: Negative for hives, rash, and allergies, Endocrine: Negative for neck swelling, polydipsia, polyuria, polyphagia, and marked weight changes, Hematologic/Lymphatic: Negative for swollen nodes, abnormal bleeding, and unusual bruising. Back: Positive for chronic low back pain. Exam: 01:36 Constitutional: This is a well developed, well nourished patient who is awake, alert, mh7 and in no acute distress. Head/Face: Normocephalic, atraumatic. Eyes: Pupils equal round and reactive to light, extra-ocular motions intact. Lids and lashes normal. Conjunctiva and sclera are non-icteric and not injected. Cornea within normal limits. Periorbital areas with no swelling, redness, or edema. Neck: Trachea midline, no thyromegaly or masses palpated, and no cervical lymphadenopathy. Supple, full range of motion without nuchal rigidity, or vertebral point tenderness. No Meningismus. Chest/axilla: Normal chest wall appearance and motion. Nontender with no deformity. No lesions are appreciated. 01:36 Abdomen/GI: Soft, non-tender, with normal bowel sounds. No distension or tympany. No guarding or rebound. No evidence of tenderness throughout. 01:36 Skin: Warm, dry with normal turgor. Normal color with no rashes, no lesions, and no evidence of cellulitis. MS/ Extremity: Pulses equal, no cyanosis. Neurovascular intact. Full, normal range of motion. Neuro: Awake and alert, GCS 15, oriented to person, place, time, and situation. Cranial nerves II-XII grossly intact. Motor strength 5/5 in all extremities. Sensory grossly intact. Cerebellar exam normal. Normal gait. Psych: Awake, alert, with orientation to person, place and time. Behavior, mood, and affect are within normal limits. 01:36 Cardiovascular: Rate: bradycardic, Rhythm: regular, Pulses: no pulse deficits are appreciated, Heart sounds: normal, normal S1and S2, Edema: pedal edema, that is mild, JVD: is not appreciated. 01:36 Respiratory: the patient does not display signs of respiratory distress, Respirations: normal, Breath sounds: rales, that are mild, are scattered, rhonchi, that are mild, are scattered, Respiratory rate: 16 01:36 Back: pain, that is moderate, of the lumbar area, ROM is normal, normal spinal alignment noted, CVA tenderness, is absent, vertebral tenderness, is not appreciated, muscle spasm, is not present, Straight leg raises: of both lower extremities does not illicit pain. Vital Signs: 07/05 22:56 BP 165 / 55; Pulse 51; Resp 16 S; Temp 98.4; Pulse Ox 100% on R/A; Weight 77.11 kg; iw Height 5 ft. 6 in. (167.64 cm); 07/06 01:20 BP 191 / 64; Pulse 56; Resp 17; Pulse Ox 98% on R/A; Pain 9/10; lp1 01:56 BP 167 / 61; Pulse 54; Resp 14; Pulse Ox 97% on R/A; lp1 02:22 BP 181 / 60; Pulse 56; Resp 19; Pulse Ox 98% ; rr5 03:30 BP 165 / 89; Pulse 53; Resp 16; Pulse Ox 99% ; rr5 04:42 BP 171 / 85; Pulse 59; Resp 16; Pulse Ox 98% ; rr5 07/05 22:56 Body Mass Index 27.44 (77.11 kg, 167.64 cm) iw MDM: 04:32 Differential diagnosis: Anemia Anxiety Reaction asthma, Bronchitis CHF exacerbation, mh7 Chronic Obstructive Pulmonary Disease Myocardial Infarction pneumonia, Pneumothorax Psychogenic pulmonary edema. Data reviewed: vital signs, nurses notes, lab test result(s), cardiac enzymes, CBC, electrolytes, EKG, radiologic studies, plain films. Data interpreted: Pulse oximetry: on room air is 98 %. Interpretation: normal. Counseling: I had a detailed discussion with the patient and/or guardian regarding: the historical points, exam findings, and any diagnostic results supporting the discharge/admit diagnosis, the presence of at least one elevated blood pressure reading (>120/80) during this emergency department visit, lab results, radiology results. Response to treatment: the patient's symptoms have markedly improved after treatment. 04:36 Patient medically screened. [facility] 07/06 00:37 Order name: Basic Metabolic Panel [facility] 07/06 00:37 Order name: CBC with Diff; Complete Time: 02:07 [facility] 07/06 00:37 Order name: LFT's; Complete Time: 02:54 [facility] 07/06 00:37 Order name: Magnesium; Complete Time: 02:54 [facility] 07/06 00:37 Order name: NT PRO-BNP; Complete Time: 02:54 [facility] 07/06 00:37 Order name: PT-INR; Complete Time: 02:54 [facility] 07/06 00:37 Order name: Troponin (emerg Dept Use Only); Complete Time: 02:54 [facility] 07/06 00:37 Order name: XRAY Chest (1 view) [facility] 07/06 00:37 Order name: Basic Metabolic Panel; Complete Time: 02:54 [facility] 07/06 04:18 Order name: SARS-COV-2 RT PCR; Complete Time: 04:31 [facility] 07/06 00:37 Order name: EKG; Complete Time: 00:38 07/06 00:37 Order name: Cardiac monitoring; Complete Time: 01:35 [facility] 07/06 00:37 Order name: EKG - Nurse/Tech; Complete Time: 01:55 [facility] 07/06 00:37 Order name: IV Saline Lock; Complete Time: 01:35 [facility] 07/06 00:37 Order name: Labs collected and sent; Complete Time: 01:35 [facility] 07/06 00:37 Order name: O2 Per Protocol; Complete Time: 01:35 [facility] 07/06 00:37 Order name: O2 Sat Monitoring; Complete Time: 01:35 [facility] Administered Medications: 01:30 Drug: morphine 2 mg {Note: RASS 0.} Route: IVP; Site: right forearm; lp1 01:30 Drug: Zofran (Ondansetron) 4 mg Route: IVP; Site: right forearm; lp1 02:30 Follow up: Response: No adverse reaction rr5 01:45 Drug: Lasix (furosemide) 60 mg Route: IVP; Site: right forearm; lp1 02:45 Follow up: Response: No adverse reaction rr5 03:18 Drug: morphine 2 mg {Note: rass 0.} Route: IVP; Site: right forearm; rr5 04:18 Follow up: Response: No adverse reaction; RASS: Alert and Calm (0) rr5 Disposition: 07/06/20 04:36 Patient has left against medical advice. Impression: ESRD on Hemodialysis, Mild Pulmonary Edema. - Patients states they are going to Home. - Condition is Stable. - Discharge Instructions: Chronic Kidney Disease, Adult, Xkur-rh-Kiqo, Pulmonary Edema, Ommw-Dc-Cgip. Follow up: Private Physician; When: 1 - 2 days; Reason: Worsening of condition, Recheck today's complaints, Continuance of care, Re-evaluation by your physician. - Problem is an acute exacerbation. - Symptoms have improved. Signatures: Dispatcher [employer] [facility] Larisa Walker RN RN Wendy Smith RN RN lp1 Sixto Kramer, ELECTRONIC TECH-C ELECTRONIC TECH-Cla1 Ryan Reynolds RN RN rr5 Hardik Flannery MD MD 7 Corrections: (The following items were deleted from the chart) 03:13 02:58 CORONAVIRUS+MR.LAB.BRZ ordered. [facility] 04:44 04:36 07/06/2020 04:36 Patients has left against medical advice. Impression: ESRD on rr5 Hemodialysis, Mild Pulmonary Edema. Patient states they are going to Home. Condition is Stable. Follow up: Private Physician; When: 1 - 2 days; Reason: Worsening of condition, Recheck today's complaints, Continuance of care, Re-evaluation by your physician. Problem is an acute exacerbation. Symptoms have improved. [facility]
--- NOTE | 2020-07-06 04:37 | ER ---
Nurse's Notes [facility] Name: Alexis Urbano Age: 64 yrs Sex: Male : 1955 Arrival Date: 07/05/2020 Time: 22:50 Bed 13 Private MD: Diagnosis: ESRD on Hemodialysis, Mild Pulmonary Edema Presentation: 07/05 22:56 Chief complaint: EMS states: pt c/o difficulty , had dialysis on Monday but feels like iw they didn't take off enough fluid, is due for dialysis tomorrow , pt states he felt like he was going to pass out earlier , also is having a lot of low back pain, did not take his home pain medication because he didn't want to drink more fluid and he was nauseous. Coronavirus screen: At this time, the client does not indicate any symptoms associated with coronavirus-19. Ebola Screen: Patient negative for fever greater than or equal to 101.5 degrees Fahrenheit, and additional compatible Ebola Virus Disease symptoms Patient denies exposure to infectious person. Patient denies travel to an Ebola-affected area in the 21 days before illness onset. No symptoms or risks identified at this time. Initial Sepsis Screen: Does the patient meet any 2 criteria? No. Patient's initial sepsis screen is negative. Does the patient have a suspected source of infection? No. Patient's initial sepsis screen is negative. Risk Assessment: Do you want to hurt yourself or someone else? Patient reports no desire to harm self or others. Onset of symptoms was July 05, 2020. 22:56 Method Of Arrival: Wheelchair iw 22:56 Acuity: JOEL 3 iw Historical: - Allergies: 23:02 No Known Allergies; iw - Home Meds: 23:02 Albuterol Inhl every 4-6 hours [Active]; amlodipine oral [Active]; aspirin 81 mg Oral iw chew 1 tab once daily [Active]; bumetanide 2 mg Oral tab 1 tab once daily [Active]; clonidine HCl 0.2 mg Oral tab 2 times per day [Active]; doxazosin 2 mg Oral tab 1 tab once daily [Active]; gabapentin 100 mg Oral cap 3 times per day [Active]; hydralazine 100 mg Oral tab 3 times per day [Active]; hydrocodone-acetaminophen 10-325 mg Oral tab every 6 hours [Active]; Metoprolol Tartrate Oral [Active]; Plavix Oral [Active]; pravastatin 40 mg Oral tab 1 tab once daily [Active]; tizanidine 4 mg Oral tab twice a day [Active]; Zanaflex Oral [Active]; levamir [Active]; Plavix 75 mg Oral tab 1 tab once daily [Active]; - PMHx: 22:59 Diabetes - NIDDM; Dialysis; M,W,F; ESRD; Hypertension; iw - PSHx: 23:02 back; nerve stimulator in back; femur; iw - Immunization history:: Client reports receiving the 2nd dose of the Covid vaccine. - Social history:: Smoking status: Patient reports the use of cigarette tobacco products, smokes one-half pack cigarettes per day. Screenin/03 00:30 Abuse screen: Denies threats or abuse. Denies injuries from another. Nutritional rr5 screening: No deficits noted. Tuberculosis screening: No symptoms or risk factors identified. Fall Risk IV access (20 points). Total Gray Fall Scale indicates No Risk (0-24 pts). Assessment: 01:15 General: Appears uncomfortable, Behavior is restless. Pain: Complains of pain in lumbar lp1 area Pain currently is 9 out of 10 on a pain scale. Quality of pain is described as stabbing. Neuro: Level of Consciousness is awake, alert, obeys commands, Oriented to person, place, time, situation, Gait is steady, Intact. Cardiovascular: Patient's skin is warm and dry. Rhythm is sinus bradycardia Dialysis shunt: in the left bicep. Respiratory: Reports shortness of breath when lying flat Airway is patent Respiratory effort is even, unlabored, Breath sounds are diminished bilaterally. GI: Abdomen is non-distended. : No signs and/or symptoms were reported regarding the genitourinary system. EENT: No signs and/or symptoms were reported regarding the EENT system. Derm: Skin is intact, Skin is dry, Skin is normal. Musculoskeletal: No deficits noted. 02:22 Reassessment: Patient appears in no apparent distress at this time. Patient is alert, rr5 oriented x 3, equal unlabored respirations, skin warm/dry/pink. awaiting for results. 03:47 Reassessment: Patient appears in no apparent distress at this time. hospitalist at rr5 bedside. 04:15 Reassessment: Patient reports readiness for discharge due to ride home arriving soon; lp1 Provider notified; Patient agrees to wait for COVID result; Requesting to have IV removed. 04:42 Reassessment: Patient appears in no apparent distress at this time. Patient is alert, rr5 oriented x 3, equal unlabored respirations, skin warm/dry/pink. discharge instruction given and explained without complaints made Patient states symptoms have improved. Vital Signs: 07/05 22:56 BP 165 / 55; Pulse 51; Resp 16 S; Temp 98.4; Pulse Ox 100% on R/A; Weight 77.11 kg; iw Height 5 ft. 6 in. (167.64 cm); 07/06 01:20 BP 191 / 64; Pulse 56; Resp 17; Pulse Ox 98% on R/A; Pain 9/10; lp1 01:56 BP 167 / 61; Pulse 54; Resp 14; Pulse Ox 97% on R/A; lp1 02:22 BP 181 / 60; Pulse 56; Resp 19; Pulse Ox 98% ; rr5 03:30 BP 165 / 89; Pulse 53; Resp 16; Pulse Ox 99% ; rr5 04:42 BP 171 / 85; Pulse 59; Resp 16; Pulse Ox 98% ; rr5 07/05 22:56 Body Mass Index 27.44 (77.11 kg, 167.64 cm) iw ED Course: 07/05 22:50 Patient arrived in ED. am4 22:58 Triage completed. iw 23:02 Arm band placed on. iw 23:38 Ryan Reynolds RN is Primary Nurse. rr5 07/06 00:08 Hardik Flannery MD is Attending Physician. mh7 00:30 Patient has correct armband on for positive identification. Bed in low position. Call rr5 light in reach. Pulse ox on. NIBP on. 01:30 Inserted saline lock: 20 gauge in right forearm, using aseptic technique. Blood lp1 collected. 02:24 XRAY Chest (1 view) In Process Unspecified. EDMS 03:02 COVID swab sent to lab. rr5 04:22 IV discontinued, No redness/swelling at site. Pressure dressing applied. lp1 04:43 No provider procedures requiring assistance completed. rr5 Administered Medications: 01:30 Drug: morphine 2 mg {Note: RASS 0.} Route: IVP; Site: right forearm; lp1 01:30 Drug: Zofran (Ondansetron) 4 mg Route: IVP; Site: right forearm; lp1 02:30 Follow up: Response: No adverse reaction rr5 01:45 Drug: Lasix (furosemide) 60 mg Route: IVP; Site: right forearm; lp1 02:45 Follow up: Response: No adverse reaction rr5 03:18 Drug: morphine 2 mg {Note: rass 0.} Route: IVP; Site: right forearm; rr5 04:18 Follow up: Response: No adverse reaction; RASS: Alert and Calm (0) rr5 Outcome: 04:43 AMA AMA form signed rr5 04:43 Condition: stable 04:43 Discharge instructions given to patient, Instructed on discharge instructions, follow up and referral plans. Demonstrated understanding of instructions, follow-up care. 04:44 Patient left the ED. rr5 Signatures: Dispatcher [employer] ED[facility] Larisa Walker RN RN iw Wendy Smith RN RN lp1 Ryan Reynolds RN RN rr5 Hardik Flannery MD MD 7 Leanne Newton am4 Corrections: (The following items were deleted from the chart) 07/05 23:00 22:56 Chief complaint: EMS states: pt c/o difficulty , had dialysis on Monday but feels iw like they didn't take off enough fluid, is due for dialysis tomorrow , pt states he felt like he was going to pass out earlier iw 07/06 04:44 04:43 Discharged to home via wheelchair, with family, rr5 rr5
[2020-07-06 04:52] VITALS: TEMP 98.4
[2020-07-06 04:59] VITALS: BP 171/85; O2SAT 98
--- NOTE | 2020-07-06 09:17 | EKG ---
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
--- NOTE | 2020-07-06 16:12 | RAD REPORT ---
EXAM DESCRIPTION: Chest Radiography COMPARISON: Chest radiograph February 25, 2020 report only CLINICAL HISTORY: [facility] MA[facility] SOB FINDINGS: A single AP view of the chest demonstrates a mildly enlarged cardiomediastinal silhouette. No pneumothorax or pleural effusion. Mild bilateral groundglass opacities are present. Scattered calc ified granulomas are noted. Osseous structures are intact. Spinal stimulator leads project over the mediastinum. IMPRESSION: Mild bilateral groundglass opacities may represent edema or pneumonia. Electronically signed by: Sree Duncan MD 07/06/2020 2:29 AM CDT Due to temporary technical issues with the PACS/Fluency reporting system, reports are being signed by the in house radiologists without review as a courtesy to insure prompt reporting. The interpreting radiologist is fully responsible for the content of the report.
== END 2020-07-06 04:44 | disposition left against medical advice (07) ==
LOC: ER 22:49
DX: J81.1 Chronic pulmonary edema (principal); E11.22 Type 2 diabetes mellitus with diabetic chronic kidney disease; I12.0 Hypertensive chronic kidney disease with stage 5 chronic kidney disease or end stage renal disease; N18.6 End stage renal disease; F17.210 Nicotine dependence, cigarettes, uncomplicated; Z99.2 Dependence on renal dialysis; Z20.822 Contact with and (suspected) exposure to COVID-19; Z79.01 Long term (current) use of anticoagulants; Z79.82 Long term (current) use of aspirin
CPT/HCPCS: 93005; 85025; 80048; 36415; 83735; 85610; 80076; 84484; 83880; 71045; U0003; J1940 ×2; J2270 ×2; J2405; 96374; 96375; 99284

== ENCOUNTER 2020-07-11 00:15 | Emergency (ER) | payer OTHER ==
--- OUTSIDE RECORDS SUMMARY | 2020-07-11 00:21 | XMS REPORT | Continuity of Care Document ---
:1955 Author Organization [facility] t Address [address] [place] [address] Care Team Providers Name Role Phone Moiz Montoya MD Primary Care Physician Brian Vega MD Attending Clinician Shayna CABALLERO Attending Clinician Kayode CABALLERO, Siraj Attending Clinician Chetan Donohue MD Attending Clinician [...] Effective Expiration Source Number Date Date TEXANPLUSTEXANPLUS [id number] 2019 [place] [id number]/1/2020-Pr 00:00:00 M ethodist esentHMO [facility] NETWK [id number] [facility] - MEDICARE MGD - Medical CAREOPTUM NON-[facility] MCR [id number] for all datesTransplants TEXANPLUSTEXANPLUS O [id number] [address] [facility] [address] [facility] [id number] 2015-Pr 00:00:00 - Medical esentMaps Contracted Cent er WELLCARE MEDICARE MGD [id number] [address] [facility] [facility] - Medical [id number] 2019-P C enter resent Problems Condition Condition [...] e Type 2 Type 2 Problem Active [facility] diabetes Diabetes 5-18 Family mellitus Mellitus 00:00: Practi c with with 00 e multiple Multiple complicati Complicati ons ons Chronic Chronic Problem Active [facility] hepatitis Hepatitis -07 Fami ly [...] Last [facility] status status 5-19 Assessguillaume Muñiz [...] Active Last [facility] stage stage 5-19 Assessguillaume Muñiz - renal renal 00:00: t & [...] Allergy 1-26 in mouth, [facility] - 00:[facility]: [facility] Medical 00 okay with Center shrimp/cr awfish Family History Family Member Diagnosis Comments Start Date Stop Date Source Natural father Other [facility] Natural mother Dementia [facility] thodist Social History Social Habit Start Date Stop Date Quantity Comments Source History of tobacco Cigarette Smoker [facility] use [facility] Cigarettes smoked 2019-12-10 2019-12-10 [facility] current (pack per 00:00:00 00:00:[address] day) - Reported Tobacco use and 2019-12-10 2019-12-10 Never used [facility] exposure 00:00:00 00:00:00 [facility] Alcohol intake 2019-12-10 2019-12-10 Ex-drinker [facility] 00:00:00 00:00:00 (finding) [facility] Alcohol Comment 2015-07-23 2015-07-23 Quit drinking IRMA Mazakes - 00:00:00 00:00:00 2005; social Medical [facility] er drinker Tobacco Comment 2015-03-31 2015-03-31 Quit 2006 IRMA Maza kes - 00:00:00 00:00:00 [facility] Sex Ass[birth year] At [birth year] [place] 00:00:00 00:00:00 [facility] Smoking Status Start Date Stop Date Source Light Tobacco Smoker [place] [facility] Current every day 2019-12-10 00:00:00 [facility] smoker Former smoker 2018-06-05 00:00:00 2018-06-05 00:00:00 IRMA Galdamez [facility] Medications Ordered Filled Start Stop Current [...] di 30 MG 16:07: daily. st tablet 01 clonIDINE 2019- Yes .2mg Q.5D Take 0.2 [place] HCl 0-06 mg by Methodi (CATAPRES) 16:07: mouth 2 st 0.2 MG 01 (two) tablet times a day. gabapentin 2019-03 Yes 100mg Q.[id number] Take 100 [place] (NEURONTIN) 0-06 [id number] mg by M ethodi 100 mg 16:07: 3D mouth 3 st capsule 01 (three) times a day. calcium 2019-03 Yes Take by [place] acetate 0-06 mouth. Methodi (PHOSLO 16:07: st ORAL) 01 pravastatin 2019-03 Yes 40mg QD Take 40 mg Nazario (PRAVACHOL) 0-06 by mouth Meth michelle 40 mg 16:07: daily. st tablet folic 2019-03 Yes Take by [facility] acid/vit B 0-06 mouth. Methodi complex and [...] mouth st capsule 24 :00 daily. finasteride 2020- 2020- No 5mg QD Take 5 mg [...] (two) Center tablet times daily . HYDROcodone 2018-0 Yes 1{tbl} Take [address] [...] 10:18: daily. Medica l 27 Center lactulose 2018- Yes TAKE 20 [facility] (CHRONULAC) 3-26 GRAM [facility] - 10 gram/15 00:00: (30ML) BY Me dical mL solution 00 MOUTH ONCE Ce nter A DAY NEEDED zolpidem 2018-0 Yes TAKE [address] [facility] (AMBIEN) 10 2-21 TABLET [facility] - mg tablet 00:00: ORALLY AT Med ical 00 BEDTIME Center NEEDED atorvastati 2017- Yes 20mg Take [address] n (LIPITOR) 4-26 by mouth. Susie es - 20 MG 00:00: Medical tablet 00 Center hydrALAZINE 2017-0 Yes 50mg Q.[id number] Take [address] (APRESOLINE 2-06 [id number] tablets [facility] - ) 25 MG 00:00: [...] route. carvedilol carvedilol No 1 BID carvedilol [facility] 6.25 mg 6.25 mg 6.25 mg Family tablet Take tablet Take tablet Practic 1 tablet 1 tablet Take 1 e twice a day twice a day tablet by oral by oral twice a route. route. day by oral route. clonidine clonidine No 1 BID clonidine [facility] HCl 0.2 mg HCl 0.2 mg HCl 0.2 mg Family tablet Take tablet Take tablet Practic 1 tablet 1 tablet Take 1 e twice a day twice a day tablet by oral by oral twice a route. route. day by oral route. gabapentin gabapentin No 1capsul TID gabapentin [facility] 100 mg 100 mg e(s) 100 mg Family capsule capsule capsule Practi c Take 1 Take 1 Take 1 e capsule 3 capsule 3 capsule 3 times a day times a day times a by oral by oral day by route. route. oral route. lactulose lactulose No 15mL Q1D lactulose [facility] 10 gram/15 10 gram/15 10 gram/15 Family mL (15 mL) mL (15 mL) mL (15 mL) Practic oral oral oral e solution solution solution Take 15 mL Take 15 mL Take 15 mL every day every day every day by oral by oral by oral route as route as route as directed. directed. directed. [place] 10 [place] 10 No 1 Q4H [place] 10 Milo tiffanie mg-325 mg mg-325 mg mg-325 mg Family tablet Take tablet Take tablet Practic 1 tablet 1 tablet Take 1 e every 4 every 4 tablet hours by hours by every 4 oral route oral route hours by as needed. as needed. oral route as needed. pravastatin pravastatin No 1 Q1D pravastati [facility] 40 mg 40 mg n [...] 30 Sensipar 30 No 1 Q1D Sensipar [facility] mg tablet mg tablet 30 mg Fami ly Take 1 Take 1 tablet Practic tablet tablet Take 1 e every day every day tablet by oral by oral every day route. route. by oral route. sildenafil sildenafil No 1 Q1D sildenafil [facility] 100 mg 100 mg 100 mg Family tablet Take tablet Take tablet Practic 1 tablet 1 tablet Take 1 e every day every day tablet by oral by oral every day route. route. by oral route. tizanidine tizanidine No 1 Q6H tizanidine [facility] 4 mg tablet 4 mg tablet 4 mg F amily Take 1 Take 1 tablet Practic tablet tablet Take 1 e every 6 every 6 tablet hours by hours by every 6 oral route oral route hours by as as oral route directed. directed. as directed. zolpidem 10 zolpidem 10 No 1 Q1D zolpidem [facility] mg tablet mg tablet 10 mg Fami ly Take 1 Take 1 tablet Practic tablet tablet Take 1 e every day every day tablet by oral by oral every day route at route at by oral bedtime. bedtime. route at bedtime. Immunizations Ordered Immunization Filled Immunization Date Status Commen ts Source Name Name influenza, influenza, 2019-01-04 Completed [facility] Family injectable, injectable, 00:00:00 Practice quadrivalent quadrivalent pneumococcal pneumococcal 2019-01-04 [facility] conjugate PCV 13 conjugate PCV 13 00:00:00 Pr actice PPD Test 2016-04-[address] [facility] Vital Signs Vital Name Observation Time Observation Value Comments Source Height 2019-09-03 66 [in_i] [facility] 00:00:00 Practice Height 2019-07-23 66 [in_i] [facility] 00:00:00 Practice BMI (Body Mass 2019-07-23 25.8 kg/m2 [facility] Famil y Index) 00:00:00 Practice Body Weight 2019-07-23 160 [lb_av] [facility] 00:00:00 Practice Systolic blood 2019-12-10 206 mm[Hg] SHEET ROCKER Thaoa leigha [facility] pressure 14:40:00 aware [facility] Diastolic blood 2019-12-10 88 mm[Hg] SHEET ROCKER Thaoa leigha [facility] pressure 14:40:00 aware [facility] Heart rate 2019-12-10 69 /min [facility] 14:40:00 [facility] Body temperature 2019-12-10 37.11 Idalia [facility] 12:15:24 [facility] Respiratory rate 2019-12-10 16 /min [facility] 12:15:24 [facility] Oxygen saturation 2019-12-10 96 /min [facility] in Arterial blood 12:15:24 [facility] by Pulse oximetry Body weight 2019-12-10 72.848 kg [facility] 06:00:00 [facility] BMI 2019-12-10 25.92 kg/m2 [facility] 06:00:00 [facility] Body height 2019-12-09 167.6 cm [facility] 16:00:00 [facility] Procedures Procedure Date / Time Performing Clinician Source Performed ECG 12-LEAD 2019-12-10 14:01:00 Lisandro Romo [facility] TROPONIN 2019-12-10 12:50:00 Lisandro Romo [facility] BASIC METABOLIC PANEL 2019-12-10 05:33:00 Solange Headley ton [facility] ESTIMATED GFR 2019-12-10 05:33:00 Solange Headley Me thodist HEMODIALYSIS 2019-12-09 20:17:14 Skyler Rand Meth odist [place] < 1 HOUR 2019-12-09 19:26:47 ShaynaMartita todd Meth odist HEPATITIS B SURFACE 2019-12-09 19:13:00 Skyler Rand [facility] ANTIGEN HEPATITIS B SURFACE AB, 2019-12-09 19:13:00 Skyler Rand [facility] QUANTITATIVE HEMODIALYSIS 2019-12-09 16:51:41 Skyler Rand Meth odist HEMODIALYSIS 2019-12-09 16:09:37 Skyler Rand Meth odist POC GLUCOSE 2019-12-09 16:02:00 ShaynaMartita todd odist [place] AN ELECTIVE 2019-12-09 13:56:58 Antonieta Lawrence ethodist SUPRAGLOTTIC AIRWAY AORTOGRAPHY, POSSIBLE 2019-12-09 13:47:00 Martita Corral n [facility] ANGIOPLASTY POC GLUCOSE 2019-12-09 12:42:00 Martita Corral Meth odist POC PANEL 2019-12-09 10:37:00 ShaynaLiliana Lange Meth odist COMPREHENSIVE METABOLIC 2019-12-09 10:32:00 Martita Corral [facility] PANEL TYPE AND SCREEN 2019-12-09 10:32:00 Nazario Wilson Meth odist Behzad Christine ESTIMATED GFR 2019-12-09 10:32:00 ShaynaLiliana Lange Meth odist XR CHEST 2 VW 2019-12-05 13:38:59 Liliana Corral [place] Meth odist ECG PRE/POST OP 2019-12-05 13:07:15 Shayna Liliana Lange Meth odist PROTHROMBIN TIME WITH INR 2019-12-05 12:45:00 Shayna Nazethanharriet Junior chaparro [facility] PARTIAL THROMBOPLASTIN 2019-12-05 12:45:00 Shayna Nazethanharriet Ori on [facility] TIME (PTT) COVID-19 QUALITATIVE PCR 2019-12-05 12:37:00 Shayna Nazethanharriet Willie haney [facility] HC COMPLETE BLD COUNT 2019-12-05 12:36:00 Martita Corral n [facility] W/AUTO DIFF HEMOGLOBIN A1C 2019-12-05 12:36:00 Nazario Wilson Meth odist Behzad Christine SARS-COV2/RT-PCR ([facility] & 2019-10-04 09:58:00 [facility] SARS-COV2/RT-PCR ([facility] & 2019-09-30 20:00:[address] [facility] - REF LABS[facility] Medical Center Plan of Care Planned Activity Planned Date Details Comments Source Future Scheduled 2020-10-04 INFLUENZA VACCINE [place] [facility] Test 00:00:00 [code = INFLUENZA VACCINE] Future Scheduled 2020-03-[address] [facility] - Test 00:00:00 (12+) [code = Medical Center DEPRESSION SCREENING (12+)] Future Scheduled 2019-11-05 INFLUENZA VACCINE (#1) [facility] Test 00:00:00 [code = INFLUENZA Medical Ce nter VACCINE (#1)] Future Scheduled 2019-03-[address] [facility] - Test 00:00:00 (procedure) [code = [facility] 70400860] Future Scheduled 2016-09-[address] [facility] - Test 00:00:00 measurement [facility] (procedure) [code = 67633043] Future Scheduled 2016-06-[address] [facility] - Test 00:00:00 malignant neoplasm of Medica l Center colon (procedure) [code = 007085533] Future Scheduled 2015-03-[address] [facility] - Test 00:00:00 WELLNESS (YEAR 2 or Medical Center FIRST YEAR if no IPPE) [code = MEDICARE ANNUAL WELLNESS (YEAR 2 or FIRST YEAR if no IPPE)] Future Scheduled 2007-08-29 COLONOSCOPY SCREENING [place] [facility] Test 00:00:00 [code = COLONOSCOPY SCREENING] Future Scheduled 2007-08-29 SHINGLES VACCINES (#1) [place] [facility] Test 00:00:00 [code = SHINGLES VACCINES (#1)] Future Scheduled 1973 COVID-19 VACCINE (1) [place] [facility] Test 00:00:00 [code = COVID-19 VACCINE (1)] Future Scheduled 1967-08-[address] EXAM [facility] - Test 00:00:00 [code = DIABETIC EYE Medical Center EXAM] Future Scheduled 1967-08-[address] [facility] - Test 00:00:00 examination Medical Center (regime/therapy) [code = 493783932] Future Scheduled 1967-08-29 Urine screening for [facility] - Test 00:00:00 protein (procedure) Medical Center [code = 818807185] Future Scheduled 1967-08-29 DIABETES: RETINAL EYE [place] [facility] Test 00:00:00 EXAM [code = DIABETES: RETINAL EYE EXAM] Future Scheduled 1967-08-29 DIABETIC FOOT EXAM [place] [facility] Test 00:00:00 [code = DIABETIC FOOT EXAM] Future Scheduled 1963-08-[address] [facility] - Test 00:00:00 0-64 YRS (1 of 1 - Medical C enter PPSV23) [code = PNEUMOCOCCAL VACCINE 0-64 YRS (1 of 1 - PPSV23)] Encounters Start End Encounter Admission Attending Care Care Encounter Source Date/Time Date/Time Type Type Clinicians Facility Department ID 2019-12-09 2019-12-10 Outpatient SOLANGE HEADLEY [facility] 021 [id number] [place] 00:00:00 00:00:00 276 Method i 2019-12-05 2019-12-05 Outpatient SHAYNA, [facility] [id number] [place] 00:00:00 00:00:00 UTTAM 188 Method i 2019-12-05 2019-12-05 Outpatient SHAYNA, [facility] [id number] [place] 00:00:00 00:00:00 UTTAM 476 Method i 2019-10-10 2019-10-10 Hospital Radiology [facility] [id number] 12:34:44 23:59:00 Encounter [place] [id number] [place] [id number] [place] [id number] 2019-10-10 2019-10-10 Polisher Dial Rodney Steen [facility] [id number] 12:38:05 12:53:05 Visit Lab Main [place] [id number] [place] [id number] Professio [id number] [address] 2019-09-03 2019-09-03 Veronica [facility] [place] - [id number] V illage 00:00:00 00:00:00 [facility] traci elkins SHEET ROCKER: Medical - Practi keo [email or web address]_V@H_ e [facility], [address] [address], [place] [address] , Ph. 2019-07-23 2019-07-23 Veronica [facility] [place] - [id number] V illage 00:00:00 00:00:00 [facility] traci o, SHEET ROCKER: Medical - Practi c [email or web address]_V@H_ e [facility], [address], [place] [address] , Ph. Results Test Description Test Time Test Comments Results Result Comments Source ECG 12 lead 2019-12-10 16:17:46 Test Item Value Reference Range Interpretation Comme nts Ventricular rate (test code = 253) 70 Atrial rate (test code = 255) 70 [place] interval (test code = 266) 144 QRSD [...] Lateral leads- [facility] [place] < 1 [id number] 19:38:18Hm Interface, Radiology Results Incoming - 12/09/2019 7:41 PM CDTFormatting of this note might be di fferent from the original.EXAMINATION: [place] < 1 HOURCLINICAL HISTORY: None provided.IMPRESSION:1. Fluoroscopy was provided in the operating. I was not present during the procedure.2. Please refer to the operative report for findings.3. Total Dose: 114 fluoroscopic images. 27.1 minutes of fluoroscopy time.Nazario BlakePmhcgmkguDeynsm4836-28-95 13:56:58Antonieta Lawrence CRNA 12/09/2019 1:57 PMAirway Date/Time: 12/09/2019 1:57 PMPerformed by: Antonieta Lawrence CRNAAuthorized by: Sameer Donohue MD Location: ORUrgency: ElectiveDifficult Airway: No Anesthesiologist: Sameer Donohue, SKYesident/LAMP SHADE ASSEMBLER/AA: Antonieta Lawrence, CRNAPerformed by: resident/LAMP SHADE ASSEMBLER/AAPreoxygenated with 100% O2: Yes C-spine Precautions Maintained Throughout: Yes Mask Ventilation: Not attemptedFinal Airway Type: Supraglottic airwayFinal LMA: I-GelLMA Size: 4Number of Attempts at Approach: 1[facility] [id number] 00:44:14 Test Item Value Reference Range Interpretation Comments Ventricular rate (test 70 code = 253) Atrial rate (test code = 70 255) [place] interval (test code = 136 266) QRSD [...] MD (2056) on 12/06/2019 12:44:11 AM Nazario SchmidXR Chest 2 [id number] 16:56:18Hm Interface, Radiology Results - 12/05/2019 4:59 PM CDT EXAMINATION: XR CHEST 2 VWCLINICAL HISTORY: Z01.818 Encounter for other preprocedural examination, PRE OPCOMPARISON: None.IMPRESSION:Heart and mediastinum: Cardiomediastinal silhouette is prominent. Atherosclerotic calcifications of the aortic arch.Lungs and pleura: There is no focal airspace disease, pleural effusion or pneumothorax.Bones: No acute abnormality.Spinal cord stimulator device seen overlying the thoracic spine.[facility]-[id number] and approved by vice president financial/fellow: Joseph Malik M.D.I, Daniel Abbott, personally reviewed the images and resident's/ fellow's findings and agree with the final report.Nazario Schmid SARS-CoV2/RT-PCR ([facility] & Ref Labs)2019-10-04 22:28:00 Test Item Value Reference Range Interpretation Comments SARS-COV2/RT-PCR Negative Not Detected, (test code = Negative, See 62741-6) external report for linked test SARS-COV-2 [facility] PERFORMING LAB (test code = 69933-9) STEVEN (test code = Negative result for [...] of the Act. Fact Sheet for Healthcare Providers:https://www.NakedRoom idel.TwoFish/sites/default/f eunice/product/documents/F act_Sheet_HC_Providers_L gbx_PKTJ-OkD-0.pdf Fact Sheet for Healthcare Patients:https://www.[employer].TwoFish/sites/default/fi les/product/documents/Fa ct_Sheet_Patients_Lyra_S ARS-CoV-2.pdf Performing Laboratory:[place] [address] [place] [address] [facility] & REF LABS)2019-10-04 22:28:00 Test Item Value Reference Range Interpretation Comments SARS-COV2/RT-PCR (test Negative Not Detected, Negative, code = 2911968) See external report for linked test SARS-COV-2 PERFORMING LAB [facility]I (test code = 3291091) Negative result for this test determines that [...] 564(g) of the Act.Fact Sheet for Healthcare Providers:https://www.Kickserv.TwoFish/sites/default/files/product/documents/Fact_Shee l_ZD_Yqdxbeqbk_Xjmw_KFUP-DsK-1.pdfFact Sheet for Healthcare Patients:https://www.Kickserv.com/sites/default/files/product/ documents/Cpel_Fosct_Xjrvajxb_Nvrx_ZYPI-MbC-2.pdfPerforming Laboratory:[facility], [place] [address]URDT-BAM5/RT-PCR ([facility] & REF LABS)2019-10-01 04:23:00 Test Item Value Reference Range Interpretation Comments SARS-COV2/RT-PCR (test code Negative Not Detected, Negative, = 8504070) See external report for linked test SARS-COV-2 PERFORMING LAB [facility] (test code = 9042856) Negative results do not preclude SARS-CoV-2 infection [...] of the Act.Fact Sheet for Healthcare Pro viders:https://www.Trust Mico.TwoFish/Documents/Xpert%20Xpress%20SARS%20CoV-2/Fact%20Sh eets/3023802%20PFPX-ANG-7%20HEALTHCARE%20PROVIDERS%20FACT%20SHEET.pdfFact Sheet for Healthcare Patients:https://www.Everypoint id.TwoFish/Documents/Xpert%20Xpress%20SARS%20CoV-2/Fact%20Sheets/3023801%20SARS-COV -2%20PATIENT%20FACT%20SHEET.pdfPerforming Laboratory:[facility], [place] [address]DNYZEXZ IMAGING, MULTI, PHARM, SPECT 2019-02-21 15:54:00Referring: Dr. Schultz [facility]ED[facility]: MYOCARDIAL PERFUSION SPECT IMAGING (Rest/Stress)CPT CODE: 64876 INDICATION: Renal transplant evaluation, hypertension, shortness of [...] Darnell Verified Date/Time: 02/21/2019 15:54:30 Reading Location: [address] P327[facility] [id number] 17:11:00 Test Item Value Reference Range Interpretation Comments PROSTATE SPECIFIC ANTIGEN (BEAKER) 0.8 ng/mL 0.0-4.0 (test code = 844) HEPATITIS B SURFACE [id number] 17:11:00 Test Item Value Reference Range Interpretation Comments HEPATITIS B SURFACE ANTIBODY 612.9 mIU/mL <8.0 H (BEAKER) (test code = 647) PROTHROMBIN TIME/[id number] 14:59:00 Test Item Value Reference Range Interpretation Comments PROTIME (BEAKER) (test code = 15.6 seconds 11.7-14.7 H 759) INR (BEAKER) (test code = 370) 1.2 <=5.9 RECOMMENDED COUMADIN/WARFARIN INR THERAPY RANGESSTANDARD DOSE: 2.0 - 3.0 Includes: PROPHYLAXIS forvenous thrombosis, systemic embolization; TREATMENT for venous thrombosis and/or pulmonary embolus.HIGH RISK: Target INR is 2.5-3.5 for patients with mechanical heart valves.BASIC METABOLIC [id number] 14:58:00 Test Item Value Reference Range Interpretation [...] APPLICABLE FOR DIALYSIS PATIEN TS. HEPATIC FUNCTION [id number] 14:53:00 Test Item Value Reference Range Interpretation [...] 6-55 347) CBC W/PLT COUNT & AUTO [id number] 14:19:00 Test Item Value Reference Range Interpretation [...] = 2801) FLOW PRA CLASS I AND [id number] 12:02:00 Test Item Value Reference Range Interpretation Comments DATE OF SERUM (BEAKER) 9110312 (test code = 228) SERUM # (BEAKER) (test 446128 code = 2290) FLOW PRA CLASS I AND II See Scanned Report (test code = 2421) HEPATITIS B SURFACE [id number] 13:18:00 Test Item Value Reference Range Interpretation Comments HEPATITIS B SURFACE ANTIBODY < mIU/mL <8.0 (BEAKER) (test code = 647) [id number] 13:08:00 Test Item Value Reference Range Interpretation Comments PROSTATE SPECIFIC ANTIGEN (BEAKER) 0.9 ng/mL 0.0-4.0 (test code = 844) FLOW PRA CLASS I AND [id number] 16:00:00 Test Item Value Reference Range Interpretation Comments DATE OF SERUM (BEAKER) 6040312 (test code = 228) SERUM # (BEAKER) (test 624372 code = 2290) FLOW PRA CLASS I AND II See Scanned Report (test code = 2421) BASIC METABOLIC [id number] 15:51:00 Test Item Value Reference Range Interpretation [...] APPLICABLE FOR DIALYSIS PATIEN TS. HEPATIC FUNCTION [id number] 15:48:00 Test Item Value Reference Range Interpretation [...] 6-55 347) CBC W/PLT COUNT & AUTO [id number] 15:11:00 Test Item Value Reference Range Interpretation [...] (test code = 417) 0.00AFB CULTURE + [id number] 19:58:00 Test Item Value Reference Range Interpretation Comments CULTURE (BEAKER) (test No acid-fast bacilli code = 1095) isolated in 42 days AFB SMEAR (BEAKER) No acid fast bacilli (test code = 994) seen AFB CULTURE + [id number] 19:58:00 Test Item Value Reference Range Interpretation Comments CULTURE (BEAKER) (test No acid-fast bacilli code = 1095) isolated in 42 days AFB SMEAR (BEAKER) No acid fast bacilli (test code = 994) seen AFB CULTURE + [id number] 18:21:00 Test Item Value Reference Range Interpretation Comments CULTURE (BEAKER) (test No acid-fast bacilli code = 1095) isolated in 42 days AFB SMEAR (BEAKER) No acid fast bacilli (test code = 994) seen POCT-GLUCOSE [id number] 10:30:00 Test Item Value Reference Range Interpretation Comments POC-GLUCOSE METER 468 mg/dL 70-110 HH TESTED AT [facility] 6720 ([facility]) (test code = [place] 1538) [address] CREATINE KINASE (CK), TOTAL AND [id number] 08:31:00 Test Item Value Reference Range Interpretation Comments CREATINE KINASE TOTAL (BEAKER) 42 U/L 29-200 (test code = 380) CREATINE KINASE-MB (BEAKER) (test 2.3 ng/mL 0.0-6.6 code = 750) CREATINE KINASE-MB INDEX (BEAKER) 5.5 % (test code = 395) Effective 01/21/2014: CK-MB Reference Range ChangeNew: 0.0-6.6 Previous: 0.0-4.9CK-MB Reference Range:<6.7 Normal6.7-10.0 Borderline>10.0 AbnormalTROPONIN [id number] 08:31:00 Test Item Value Reference Range Interpretation [...] acute neurological disease, and persistent tachyarrhythmia.BASIC METABOLIC [id number] 08:27:00 Test Item Value Reference Range Interpretation [...] S NOT APPLICABLE FOR DIALYSIS PATIEN TS. [id number] 08:24:00 Test Item Value Reference Range Interpretation Comments MAGNESIUM (BEAKER) (test code = 2.4 mg/dL 1.6-2.6 627) CBC W/PLT COUNT & AUTO [id number] 08:17:00 Test Item Value Reference Range Interpretation [...]
[2020-07-11] MEDS ORDERED: MORPHINE 4 MG/ML SYR ONE ×2 (01:55→03:41)
[2020-07-11] MEDS ORDERED: ONDANSETRON 4 MG/2 ML VIAL ONE (01:55)
[2020-07-11 02:18] LABS: Absolute Lymphocytes (CBC) 0.9 K/uL (0.7-4.9); Basophils % 1.2 % (0-1.3); Hematocrit 35.6 % (39.6-49.0); Lymphocytes % 15.3 % (15.3-44.8); MPV 9.3 fL (7.6-11.3); RBC Red Blood Cell Count 3.77 M/uL (4.33-5.43)
[2020-07-11 02:33] LABS: Albumin 3.6 g/dL (3.4-5.0); Bilirubin Direct 0.5 mg/dL (0-0.2); Bilirubin Total 0.9 mg/dL (0.2-1.0); Potassium 4.5 mmol/L (3.5-5.1); Protein, Total 7.5 g/dL (6.4-8.2)
--- NOTE | 2020-07-11 03:37 | ER ---
Nurse's Notes [facility] Name: Alexis Urbano Age: 64 yrs Sex: Male : 1955 Arrival Date: 07/11/2020 Time: : Bed 6 Private MD: Diagnosis: Flank Pain Presentation: 07/11 01:26 Chief complaint: Patient states: Reports he started having kidney pain Monday in the AM ea in Dialysis , reports he was prescribed an antibiotic and went home. Pt states the pain has become unbearable. Coronavirus screen: At this time, the client does not indicate any symptoms associated with coronavirus-19. Ebola Screen: No symptoms or risks identified at this time. Initial Sepsis Screen: Does the patient meet any 2 criteria? No. Patient's initial sepsis screen is negative. Does the patient have a suspected source of infection? No. Patient's initial sepsis screen is negative. Risk Assessment: Do you want to hurt yourself or someone else? Patient reports no desire to harm self or others. Onset of symptoms was July 11, 2020. 01:26 Method Of Arrival: Wheelchair ea 01:26 Acuity: JOEL 3 ea Triage Assessment: 01:32 General: Appears uncomfortable, Behavior is appropriate for age. Pain: Complains of ea pain in right flank. Historical: - Home Meds: : Albuterol Inhl every 4-6 hours [Active]; amlodipine oral [Active]; aspirin 81 mg Oral ea chew 1 tab once daily [Active]; bumetanide 2 mg Oral tab 1 tab once daily [Active]; clonidine HCl 0.2 mg Oral tab 2 times per day [Active]; doxazosin 2 mg Oral tab 1 tab once daily [Active]; gabapentin 100 mg Oral cap 3 times per day [Active]; hydralazine 100 mg Oral tab 3 times per day [Active]; hydrocodone-acetaminophen 10-325 mg Oral tab every 6 hours [Active]; levamir [Active]; Plavix Oral [Active]; Metoprolol Tartrate Oral [Active]; pravastatin 40 mg Oral tab 1 tab once daily [Active]; tizanidine 4 mg Oral tab twice a day [Active]; Plavix 75 mg Oral tab 1 tab once daily [Active]; Unknown blood thinner [Active]; Zanaflex Oral [Active]; - PMHx: 01:31 Hypertension; GERD; ESRD; Dialysis; Diabetes - NIDDM; ea - PSHx: 01:31 femur; nerve stimulator in back; back; ea - Immunization history:: Adult Immunizations unknown. - Social history:: Smoking status: Patient denies any tobacco usage or history of. Screenin:28 Abuse screen: Denies threats or abuse. Nutritional screening: No deficits noted. ea Tuberculosis screening: No symptoms or risk factors identified. Fall Risk None identified. Assessment: 01:32 General: Appears uncomfortable, Behavior is appropriate for age. Pain: Complains of ea pain in right flank. Neuro: Level of Consciousness is awake, alert, obeys commands, Oriented to person, place, time. Cardiovascular: Patient's skin is warm and dry. Respiratory: Airway is patent Respiratory effort is even, unlabored, Respiratory pattern is regular, symmetrical. Derm: Skin is dry, Skin is jaundiced, Skin temperature is warm. 03:26 Reassessment: Patient and/or family updated on plan of care and expected duration. Pain ea level reassessed. Pt alert and oriented x 3. Respirations even and unlabored, chest expansions even and symmetrical. Awaiting on CT results. 03:37 Reassessment: Patient and/or family updated on plan of care and expected duration. Pain ea level reassessed. Pt awaiting on ride home. 04:04 Reassessment: Patient and/or family updated on plan of care and expected duration. Pain ea level reassessed. Discharge instruction given to patient verbalized the understanding of instruction. Vital Signs: 01:26 BP 180 / 75; Pulse 51; Resp 18; Temp 98.4; Pulse Ox 98% ; Weight 73 kg; Height 5 ft. 6 ea in. (167.64 cm); 03:29 BP 174 / 53; Pulse 51; Resp 16; Pulse Ox 97% ; ea 01:26 Body Mass Index 25.98 (73.00 kg, 167.64 cm) ED Course: 01:01 Patient arrived in ED. cf2 01:18 Hardik Flannery MD is Attending Physician. mh7 01:26 Adeline Rosas, ABBIE is Primary Nurse. ea :28 Triage completed. ea 01:28 Arm band placed on right wrist. Patient placed in an exam room, on a stretcher, on ea pulse oximetry. 01:28 Patient has correct armband on for positive identification. Bed in low position. Call ea light in reach. Side rails up X2. 01:56 CT Stone Protocol In Process Unspecified. EDMS 02:05 Inserted saline lock: 22 gauge in right forearm, using aseptic technique. Blood ea collected. 03:37 No provider procedures requiring assistance completed. IV discontinued, intact, ea bleeding controlled, No redness/swelling at site. Pressure dressing applied. Administered Medications: 02:04 Drug: morphine 4 mg Route: IVP; Site: right forearm; ea 03:00 Follow up: Response: No adverse reaction; Pain is decreased ea 02:04 Drug: Zofran (Ondansetron) 4 mg Route: IVP; Site: right forearm; ea 03:26 Follow up: Response: No adverse reaction ea 03:25 Drug: morphine 4 mg Route: IVP; Site: right forearm; ea 03:55 Follow up: Response: No adverse reaction ea Outcome: 03:36 Discharge ordered by mhEstefani 04:03 Discharged to home via wheelchair, with family. ea 04:03 Condition: stable 04:03 Discharge instructions given to patient, Instructed on discharge instructions, follow up and referral plans. Demonstrated understanding of instructions, follow-up care. 04:04 Patient left the ED. ea Signatures: Dispatcher [employer] Adeline Hastings RN RN Samy Olivares cf2 Hardik Flannery MD MD mh7
--- NOTE | 2020-07-11 03:37 | EDPHYS ---
Physician Documentation [facility] Name: Alexis Urbano Age: 64 yrs Sex: Male : 1955 Arrival Date: 07/11/2020 Time: : Bed 6 Private MD: ED Physician Hardik Flannery HPI: 07/11 01:29 This 64 yrs old Male presents to ER via Wheelchair with complaints of kidney mh7 pain. 01:29 The patient complains of pain in the right flank. The pain does not radiate. Onset: The mh7 symptoms/episode began/occurred yesterday. Modifying factors: The symptoms are alleviated by nothing. the symptoms are aggravated by movement, palpation/percussion. 01:30 Associated signs and symptoms: Pertinent positives: nausea, vomiting, Pertinent mh7 negatives: diarrhea, dizziness, dysuria, fever, urinary frequency, headache, hematuria, pain radiating to the lower extremities. Severity of pain: At its worst the pain was moderate last night, in the emergency department the pain is unchanged. Historical: - Home Meds: 01:31 Albuterol Inhl every 4-6 hours [Active]; amlodipine oral [Active]; aspirin 81 mg Oral ea chew 1 tab once daily [Active]; bumetanide 2 mg Oral tab 1 tab once daily [Active]; clonidine HCl 0.2 mg Oral tab 2 times per day [Active]; doxazosin 2 mg Oral tab 1 tab once daily [Active]; gabapentin 100 mg Oral cap 3 times per day [Active]; hydralazine 100 mg Oral tab 3 times per day [Active]; hydrocodone-acetaminophen 10-325 mg Oral tab every 6 hours [Active]; levamir [Active]; Plavix Oral [Active]; Metoprolol Tartrate Oral [Active]; pravastatin 40 mg Oral tab 1 tab once daily [Active]; tizanidine 4 mg Oral tab twice a day [Active]; Plavix 75 mg Oral tab 1 tab once daily [Active]; Unknown blood thinner [Active]; Zanaflex Oral [Active]; - PMHx: 01:31 Hypertension; GERD; ESRD; Dialysis; Diabetes - NIDDM; ea - PSHx: 01:31 femur; nerve stimulator in back; back; ea - Immunization history:: Adult Immunizations unknown. - Social history:: Smoking status: Patient denies any tobacco usage or history of. ROS: 01:30 Constitutional: Negative for fever, chills, and weight loss, Eyes: Negative for injury, mh7 pain, redness, and discharge, ENT: Negative for injury, pain, and discharge, Neck: Negative for injury, pain, and swelling, Cardiovascular: Negative for chest pain, palpitations, and edema, Respiratory: Negative for shortness of breath, cough, wheezing, and pleuritic chest pain, : Negative for injury, bleeding, discharge, and swelling, MS/Extremity: Negative for injury and deformity, Skin: Negative for injury, rash, and discoloration, Neuro: Negative for headache, weakness, numbness, tingling, and seizure, Psych: Negative for depression, anxiety, suicide ideation, homicidal ideation, and hallucinations, Allergy/Immunology: Negative for hives, rash, and allergies, Endocrine: Negative for neck swelling, polydipsia, polyuria, polyphagia, and marked weight changes, Hematologic/Lymphatic: Negative for swollen nodes, abnormal bleeding, and unusual bruising. Exam: 01:30 Head/Face: Normocephalic, atraumatic. Eyes: Pupils equal round and reactive to light, mh7 extra-ocular motions intact. Lids and lashes normal. Conjunctiva and sclera are non-icteric and not injected. Cornea within normal limits. Periorbital areas with no swelling, redness, or edema. Neck: Trachea midline, no thyromegaly or masses palpated, and no cervical lymphadenopathy. Supple, full range of motion without nuchal rigidity, or vertebral point tenderness. No Meningismus. Chest/axilla: Normal chest wall appearance and motion. Nontender with no deformity. No lesions are appreciated. Cardiovascular: Regular rate and rhythm with a normal S1 and S2. No gallops, murmurs, or rubs. Normal PMI, no JVD. No pulse deficits. Respiratory: Lungs have equal breath sounds bilaterally, clear to auscultation and percussion. No rales, rhonchi or wheezes noted. No increased work of breathing, no retractions or nasal flaring. Abdomen/GI: Soft, non-tender, with normal bowel sounds. No distension or tympany. No guarding or rebound. No evidence of tenderness throughout. Skin: Warm, dry with normal turgor. Normal color with no rashes, no lesions, and no evidence of cellulitis. MS/ Extremity: Pulses equal, no cyanosis. Neurovascular intact. Full, normal range of motion. Neuro: Awake and alert, GCS 15, oriented to person, place, time, and situation. Cranial nerves II-XII grossly intact. Motor strength 5/5 in all extremities. Sensory grossly intact. Cerebellar exam normal. Normal gait. Psych: Awake, alert, with orientation to person, place and time. Behavior, mood, and affect are within normal limits. 01:30 Constitutional: The patient appears in no acute distress, alert, awake, uncomfortable. 03:48 Back: normal spinal alignment noted, CVA tenderness, that is moderate, is noted on the [facility] right, vertebral tenderness, is not appreciated, muscle spasm, is not present. Vital Signs: 01:26 BP 180 / 75; Pulse 51; Resp 18; Temp 98.4; Pulse Ox 98% ; Weight 73 kg; Height 5 ft. 6 ea in. (167.64 cm); 03:29 BP 174 / 53; Pulse 51; Resp 16; Pulse Ox 97% ; ea 01:26 Body Mass Index 25.98 (73.00 kg, 167.64 cm) ea MDM: 03:34 Differential diagnosis: nephrolithiasis, pyelonephritis, Flank pain. Data reviewed: [facility] vital signs, nurses notes, old medical records, lab test result(s), CBC, electrolytes, radiologic studies, CT scan. Data interpreted: Pulse oximetry: on room air is 97 %. Interpretation: normal. Counseling: I had a detailed discussion with the patient and/or guardian regarding: the historical points, exam findings, and any diagnostic results supporting the discharge/admit diagnosis, the presence of at least one elevated blood pressure reading (>120/80) during this emergency department visit, lab results, radiology results, the need for outpatient follow up, to return to the emergency department if symptoms worsen or persist or if there are any questions or concerns that arise at home. Response to treatment: the patient's symptoms have markedly improved after treatment. 03:36 Patient medically screened. [facility] 07/11 01:28 Order name: Basic Metabolic Panel; Complete Time: 02:38 [facility] 07/11 01:28 Order name: CBC with Diff; Complete Time: 38 [facility] 07/11 01:28 Order name: Hepatic Function; Complete Time: 02:38 [facility] 07/11 01:28 Order name: Lipase; Complete Time: 02:38 [facility] 07/11 01:28 Order name: CT Stone Protocol [facility] 07/11 01:28 Order name: IV Saline Lock; Complete Time: 02:05 [facility] 07/11 01:28 Order name: Labs collected and sent; Complete Time: 02:05 [facility] Administered Medications: 02:04 Drug: morphine 4 mg Route: IVP; Site: right forearm; ea 03:00 Follow up: Response: No adverse reaction; Pain is decreased ea 02:04 Drug: Zofran (Ondansetron) 4 mg Route: IVP; Site: right forearm; ea 03:26 Follow up: Response: No adverse reaction ea 03:25 Drug: morphine 4 mg Route: IVP; Site: right forearm; ea 03:55 Follow up: Response: No adverse reaction ea Disposition: 07/11/20 03:36 Discharged to Home. Impression: Flank Pain. - Condition is Stable. - Discharge Instructions: Flank Pain, [id number]. - Medication Reconciliation Form, Thank You Letter, Antibiotic Education, Prescription Opioid Use form. - Follow up: Private Physician; When: 1 - 2 days; Reason: Worsening of condition, Recheck today's complaints, Continuance of care, Re-evaluation by your physician. - Problem is an acute exacerbation. - Symptoms have improved. Signatures: Dispatcher [employer] EDMS Adeline Rosas RN RN ea Holmes, Maurice, MD MD mh7 Corrections: (The following items were deleted from the chart) 04:04 03:36 07/11/2020 03:36 Discharged to Home. Impression: Flank Pain. Condition is Stable. ea Forms are Medication Reconciliation Form, Thank You Letter, Antibiotic Education, Prescription Opioid Use. Follow up: Private Physician; When: 1 - 2 days; Reason: Worsening of condition, Recheck today's complaints, Continuance of care, Re-evaluation by your physician. Problem is an acute exacerbation. Symptoms have improved. [facility]
[2020-07-11 04:11] VITALS: TEMP 98.4
[2020-07-11 04:13] VITALS: BP 174/53; O2SAT 97
--- NOTE | 2020-07-11 14:53 | RAD REPORT ---
EXAM DESCRIPTION: CT Abdomen and Pelvis Without Intravenous Contrast CLINICAL HISTORY: The patient is 64 years old and is Male; FLANK PAIN TECHNIQUE: Axial computed tomography images of the abdomen and pelvis without intravenous contrast. Sagittal and coronal reformatted images were created and reviewed. This CT exam was performed usi ng one or more of the following dose reduction techniques: automated exposure control, adjustment o f the mA and/or kV according to patient size, and/or use of iterative reconstruction technique. COMPARISON: CT abdomen and pelvis 03/23/2020. FINDINGS: Lung bases: Unremarkable. No mass. No consolidation. ABDOMEN: Liver: Cirrhotic appearance to the liver. Gallbladder and bile ducts: Unremarkable. No calcified stones. No ductal dilation. Pancreas: Unremarkable. No ductal dilation. Spleen: Unremarkable. No splenomegaly. Adrenals: Unremarkable. No mass. Kidneys and ureters: Unremarkable. No obstructing stones. No hydronephrosis. Stomach and bowel: Unremarkable. No obstruction. No mucosal thickening. PELVIS: Appendix: No findings to suggest acute appendicitis. Bladder: Unremarkable. No stones. Reproductive: Unremarkable as visualized. ABDOMEN and PELVIS: Intraperitoneal space: Unremarkable. No free air. No significant fluid collection. Bones/joints: Postsurgical changes to the spine. 8 mm of anterolisthesis of L5 on S1. Disc space narrowing with degenerative endplate changes at L2-3 and L3-4. Obliteration of the L3-4 disc. Retrolisthesis of L3 on L4. Intramedullary nail in the left proximal femur. No acute fracture. No dislocation. Soft tissues: Unremarkable. Vasculature: Extensive atherosclerotic vascular calcifications. No abdominal aortic aneurysm. Lymph nodes: Unremarkable. No enlarged lymph nodes. Tubes, lines and devices: Spinal stimulator in place. IMPRESSION: No acute findings in the abdomen or pelvis. Electronically signed by: Dario Salazar MD 07/11/2020 2:39 AM CDT Due to temporary technical issues with the PACS/Fluency reporting system, reports are being signed by the in house radiologists without review as a courtesy to insure prompt reporting. The interpreting radiologist is fully responsible for the content of the report.
== END 2020-07-11 04:04 | disposition home or self-care (01) ==
LOC: ER 00:15
DX: R10.9 Unspecified abdominal pain (principal); I12.0 Hypertensive chronic kidney disease with stage 5 chronic kidney disease or end stage renal disease; E11.22 Type 2 diabetes mellitus with diabetic chronic kidney disease; N18.6 End stage renal disease; Z99.2 Dependence on renal dialysis; K21.9 Gastro-esophageal reflux disease without esophagitis
CPT/HCPCS: 85025; 80048; 36415; 80076; 83690; 76377; 74176; 96375; 96374; 99284; J2405

== ENCOUNTER 2020-08-28 13:06 | Observation (INO) | payer OTHER ==
--- OUTSIDE RECORDS SUMMARY | 2020-08-28 13:10 | XMS REPORT | Continuity of Care Document ---
:1955 Author Organization [facility] t Address [address] [place] [address] Care Team Providers Name Role Phone Moiz Montoya MD Primary Care Physician Brian Vega MD Attending Clinician Shayna CABALLERO Attending Clinician Kayode CABALLERO, Sira Attending Clinician Chetan Donohue MD Attending Clinician Trae BERNAL Attending Clinician MD SHAYNA Attending Clinician Unavailable Radiology Attending Clinician Unavailable Pob, Lab Main Attending Clinician Unavailable SALENA RUSSELL Attending Clinician Unavailable SWETHA PISANO Attending Clinician Unavailable LEANA KHALIL Attending Clinician Unavailable INGRIS DANIELSON Attending Clinician Unavailable ESMER KERN Attending Clinician Unavailable KAYODE Admitting Clinician Unavailable MD SHAYNA Admitting Clinician Unavailable THEODORE WEIR Admitting Clinician Unavailable Payers Payer Name Policy Type Policy Effective Expiration Source Number Date Date TEXANPLUSTEXANPLUS [id number] 2019 [place] [id number] 2020-Pr 00:00:00 M ethodist esentHMO UNITED RES[employer] NETWK [id number] [facility] - MEDICARE MGD - Medical CAREOPTUM NON-[facility] er MCR [id number] for all datesTransplants TEXANPLUSTEXANPLUS HMO [id number] [facility] [id number] 2015-Pr 00:00:00 - Medical esentMaps Contracted Cent er WELLCARE MEDICARE MGD [id number] [facility] CAREWELLCARE 00:00:00 - Medical [id number] 2019-P C enter resent Problems Condition Condition [...] e Type 2 Type 2 Problem Active [facility] diabetes Diabetes -18 Family mellitus Mellitus 00:00: Practi c with with 00 e multiple Multiple complicati Complicati ons ons Chronic Chronic Problem Active [facility] hepatitis Hepatitis 03-12 Fami ly C C 00:00: Practic 00 e 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 Renal 03-12 Family disease Disease 00:00: Practic e Acute Acute Disease Active [facility] [...] Allergy 1-26 in mouth, [facility] 00:[facility] Medical 00 okay with Center shrimp/cr awfish Family History Family Member Diagnosis Comments Start Date Stop Date Source Natural father Other [facility] Natural mother Dementia [facility] Social History Social Habit Start Date Stop Date Quantity Comments Source History of tobacco Cigarette Smoker [place] use [facility] Cigarettes smoked 2019-12-10 2019-12-10 [place] current (pack per 00:00:00 00:00:[address] day) - Reported Tobacco use and 2019-12-10 2019-12-10 Never used [place] exposure 00:00:00 00:00:00 [facility] Alcohol intake 2019-12-10 2019-12-10 Ex-drinker [place] 00:00:00 00:00:00 (finding) [facility] Alcohol Comment 2015-07-23 2015-07-23 Quit drinking [facility] - 00:00:00 00:00:00 2005; social [facility] er drinker Tobacco Comment 2015-03-31 2015-03-[address] [facility] kes - 00:00:00 00:00:00 [facility] Sex Assigned At [birth year] [place] 00:00:00 00:00:00 [facility] Smoking Status Start Date Stop Date Source Light Tobacco Smoker [facility] Current every day 2019-12-10 00:00:00 [facility] smoker Former smoker 2018-06-05 00:00:00 2018-06-05 00:00:00 [facility] Medications Ordered Filled Start Stop Current Ordering Indication Dosage Frequency Signature Comments Components Source Medication Medication Date Date Medication? Clinician (SIG) Name Name aspirin 81 2019-03 2020- No 81mg QD Chew 1 [place] [...] MG 16:07: daily. st tablet 01 clonIDINE 2019-03 Yes .2mg Q.5D Take 0.2 [place] HCl 0-06 mg by Methodi (CATAPRES) 16:07: mouth 2 st 0.2 MG 01 (two) tablet times a day. gabapentin 2019-03 Yes 100mg Q.[id number] Take 100 Lange (NEURONTIN) 0-06 [id number] mg by Natacha virk 100 mg 16:07: [...] tablet 00 Center hydrALAZINE 2016-0 Yes 50mg Q.16394842 Take [address] (APRESOLINE 2-06 [id number] tablets [facility] - ) 25 MG 00:00: 3D (50 mg Medical tablet 00 total) by Center mouth 3 (three) times daily. pantoprazol 2016-0 Yes 40mg QD Take [address] [...] 210 Auryxia 210 No 2 TID Auryxia [facility] mg iron mg iron 210 mg Family tablet Take tablet Take iron P ractic 2 tablets 3 2 tablets 3 tablet e times a day times a day Take 2 by oral by oral tablets 3 route. route. times a day by oral route. carvedilol carvedilol No 1 BID carvedilol [facility] 6.25 mg 6.25 mg 6.25 mg Family tablet Take tablet Take tablet Practic 1 tablet 1 tablet Take 1 e twice a day twice a day tablet by oral by oral twice a route. route. day by oral route. clonidine clonidine No 1 BID clonidine [facility] HCl 0.2 mg HCl 0.2 mg HCl 0.2 mg Family tablet Take tablet Take tablet Practic 1 tablet 1 tablet Take 1 e twice a day twice a day tablet by oral by oral twice a route. route. day by oral route. gabapentin gabapentin No 1capsul TID gabapentin [facility] 100 mg 100 mg e(s) 100 mg Family capsule capsule capsule Practi c Take 1 Take 1 Take 1 e capsule 3 capsule 3 capsule 3 times a day times a day times a by oral by oral day by route. route. oral route. lactulose lactulose No 15mL Q1D lactulose [facility] 10 gram/15 10 gram/15 10 gram/15 Family mL (15 mL) mL (15 mL) mL (15 mL) Practic oral oral oral e solution solution solution Take 15 mL Take 15 mL Take 15 mL every day every day every day by oral by oral by oral route as route as route as directed. directed. directed. Economy 10 Economy 10 No 1 Q4H Economy 10 [place]anie mg-325 mg mg-325 mg mg-325 mg Family tablet Take tablet Take tablet Practic 1 tablet 1 tablet Take 1 e every 4 every 4 tablet hours by hours by every 4 oral route oral route hours by as needed. as needed. oral route as needed. pravastatin pravastatin No 1 Q1D pravastati [facility] 40 mg 40 mg n [...] 30 Sensipar 30 No 1 Q1D Sensipar [facility] mg tablet mg tablet 30 mg Fami ly Take 1 Take 1 tablet Practic tablet tablet Take 1 e every day every day tablet by oral by oral every day route. route. by oral route. sildenafil sildenafil No 1 Q1D sildenafil [facility] 100 mg 100 mg 100 mg Family tablet Take tablet Take tablet Practic 1 tablet 1 tablet Take 1 e every day every day tablet by oral by oral every day route. route. by oral route. tizanidine tizanidine No 1 Q6H tizanidine [facility] 4 mg tablet 4 mg [...] Source Name Name pneumococcal pneumococcal 2019-01-04 Completed [facility] a[facility] conjugate PCV 13 conjugate PCV 13 00:00:00 Pr actice influenza, influenza, 2019-01-04 Completed [facility] injectable, injectable, 00:00:00 Practice quadrivalent quadrivalent PPD Test 2016-04-03 Completed [facility] - 00:00:00 Medical Center Vital Signs Vital Name Observation Time Observation Value Comments Source Height 2019-09-03 66 [in_i] [facility] 00:00:00 Practice Height 2019-07-23 66 [in_i] [facility] 00:00:00 Practice BMI (Body Mass 2019-07-23 25.8 kg/m2 [facility]amil y Index) 00:00:00 Practice Body Weight 2019-07-23 160 [lb_av] [facility] 00:00:00 Practice Systolic blood 2019-12-10 206 mm[Hg] PASTORAL WORKER Lisandro ahuja [place] pressure 14:40:00 aware [facility] Diastolic blood 2019-12-10 88 mm[Hg] PASTORAL WORKER Lisandro ahuja [place] pressure 14:40:00 aware [facility] Heart rate 2019-12-10 69 /min [place] 14:40:00 [facility] Body temperature 2019-12-10 37.11 Idalia [place] 12:15:24 [facility] Respiratory rate 2019-12-10 16 /min [place] 12:15:24 [facility] Oxygen saturation 2019-12-10 96 /min [place] in Arterial blood 12:15:24 [facility] by Pulse oximetry Body weight 2019-12-10 72.848 kg [place] 06:00:00 [facility] BMI 2019-12-10 25.92 kg/m2 [place] 06:00:00 [facility] Body height 2019-12-09 167.6 cm [place] 16:00:00 [facility] Procedures Procedure Date / Time Performing Clinician Source Performed ECG 12-LEAD 2019-12-10 14:01:00 Lisandro Romo [facility] TROPONIN 2019-12-10 12:50:00 Lisandro Romo [facility] BASIC METABOLIC PANEL 2019-12-10 05:33:00 Solange Headley [facility] ESTIMATED GFR 2019-12-10 05:33:00 Solange Headley [facility] HEMODIALYSIS 2019-12-09 20:17:14 Carlos EnriqueroumohSkyler Meth odist [place] < 1 HOUR 2019-12-09 19:26:47 ShaynaMartita todd Meth odist HEPATITIS B SURFACE 2019-12-09 19:13:00 Skyler Rand [facility] ANTIGEN HEPATITIS B SURFACE AB, 2019-12-09 19:13:00 Skyler Rand [facility] QUANTITATIVE HEMODIALYSIS 2019-12-09 16:51:41 Skyler Rand Meth odist HEMODIALYSIS 2019-12-09 16:09:37 Skyler Rand Meth odist POC GLUCOSE 2019-12-09 16:02:00 ShaynaMartita Meth odist [place] AN ELECTIVE 2019-12-09 13:56:58 Antonieta Lawrence Lange Natacha ethodist SUPRAGLOTTIC AIRWAY AORTOGRAPHY, POSSIBLE 2019-12-09 13:47:00 Martita Corral [facility] ANGIOPLASTY POC GLUCOSE 2019-12-09 12:42:00 ShaynaMartita Wei odist POC PANEL 2019-12-09 10:37:00 ShaynaLiliana Nazario Carvajal odist COMPREHENSIVE METABOLIC 2019-12-09 10:32:00 Shayna Nazmachelle bailey [facility] PANEL TYPE AND SCREEN 2019-12-09 10:32:00 Nazario Wilson odist Behzad Christine ESTIMATED GFR 2019-12-09 10:32:00 ShaynaMartita odist XR CHEST 2 VW 2019-12-05 13:38:59 ShaynaMartita Wei odist ECG PRE/POST OP 2019-12-05 13:07:15 Shayna Liliana Nazario Carvajal odist PROTHROMBIN TIME WITH INR 2019-12-05 12:45:00 Martita Corral [facility] PARTIAL THROMBOPLASTIN 2019-12-05 12:45:00 Martita Corral on [facility] TIME (PTT) COVID-19 QUALITATIVE PCR 2019-12-05 12:37:00 Shayna Nazmachelle haney [facility] HC COMPLETE BLD COUNT 2019-12-05 12:36:00 Martita Corral [facility] W/AUTO DIFF HEMOGLOBIN A1C 2019-12-05 12:36:00 Nazario Wilson odist Behzad Christine SARS-COV2/RT-PCR ([facility] & 2019-10-04 09:58:[address] [facility] Medical Center SARS-COV2/RT-PCR ([facility] & 2019-09-30 20:00:[address] [facility] Medical Center Plan of Care Planned Activity Planned Date Details Comments Source Future Scheduled 2020-11-[address] [facility] - Test 00:00:00 (Season Ended) [code = Medic al Center INFLUENZA VACCINE (Season Ended)] Future Scheduled 2020-10-04 INFLUENZA VACCINE [place] [facility] Test 00:00:00 [code = INFLUENZA VACCINE] Future Scheduled 2020-03-[address] [facility] - Test 00:00:00 (12+) [code = [facility] Center DEPRESSION SCREENING (12+)] Future Scheduled 2019-03-[address] [facility] - Test 00:00:00 (procedure) [code = [facility] Center 75952398] Future Scheduled 2016-09-[address] [facility] - Test 00:00:00 measurement [facility] (procedure) [code = 86027019] Future Scheduled 2016-06-[address] [facility] - Test 00:00:00 malignant neoplasm of [facility] colon (procedure) [code = 059335296] Future Scheduled 2015-03-[address] [facility] - Test 00:00:00 WELLNESS (YEAR 2 or Medical Center FIRST YEAR if no IPPE) [code = MEDICARE ANNUAL WELLNESS (YEAR 2 or FIRST YEAR if no IPPE)] Future Scheduled 2007-08-29 SHINGLES VACCINES ([address] [facility] - Test 00:00:00 of 2) [code = SHINGLES [facility] al Center VACCINES (1 of 2)] Future Scheduled 2007-08-29 COLONOSCOPY SCREENING [place] [facility] Test 00:00:00 [code = COLONOSCOPY SCREENING] Future Scheduled 2007-08-29 SHINGLES VACCINES (#1) [place] [facility] Test 00:00:00 [code = SHINGLES VACCINES (#1)] Future Scheduled 1976 DTAP/TDAP/TD VACCINES [facility] Test 00:00:00 (1 - Tdap) [code = Medical C enter DTAP/TDAP/TD VACCINES (1 - Tdap)] Future Scheduled 1969 COVID-19 VACCINE (1) [facility] - Test 00:00:00 [code = COVID-[address] VACCINE (1)] Future Scheduled 1969 COVID-19 VACCINE (1) [place] [facility] Test 00:00:00 [code = COVID-19 VACCINE (1)] Future Scheduled 1967-08-[address] DI[address] EYE EXAM [facility] - Test 00:00:00 [code = DIABETIC EYE Medical Center EXAM] Future Scheduled 1967-08-[address] [facility] - Test 00:00:00 examination Medical Center (regime/therapy) [code = 895602303] Future Scheduled 1967-08-29 Urine screening for [facility] - Test 00:00:00 protein (procedure) Medical Center [code = 914278487] Future Scheduled 1967-08-29 DIABETES: RETINAL EYE [place] [facility] Test 00:00:00 EXAM [code = DIABETES: RETINAL EYE EXAM] Future Scheduled 1967-08-29 DIABETIC FOOT EXAM [place] [facility] Test 00:00:00 [code = DIABETIC FOOT EXAM] [...] 2019-12-09 2019-12-10 Outpatient SOLANGE HEADLEY [facility] [id number] [place] 00:00:00 00:00:[address] 2019-12-05 2019-12-05 Outpatient SHAYNA, [facility] [id number] [place] 00:00:00 00:00:00 UTTAM [address] 2019-12-05 2019-12-05 Outpatient SHAYNA, [facility] [id number] [place] 00:00:00 00:00:00 UTTAM [address] 2019-10-10 2019-10-[address] [facility] [id number] 12:34:44 23:59:00 Encounter [place] [id number] [place] [id number] [place] [id number] 2019-10-10 2019-10-10 French Drawer Rodney Steen [facility] [id number] 12:38:05 12:53:05 Visit Lab Main [place] [id number] [place] [id number] leandro [id number] formerly [facility] 353 [facility] 2019-09-03 2019-09-03 Veronica [facility] [place] - [id number] V ill[place] 00:00:00 00:00:00 [facility] traci elkins, PASTORAL WORKER: Medical - Practi c [email or web address]_V@H_ e [facility], [place] [address], [place] [address] , Ph. 2019-07-23 2019-07-23 Veronica [facility] [place] - [id number] V illage 00:00:00 00:00:00 [facility] traci elkins, PASTORAL WORKER: Medical - Practi c [address] VM_[email or web address]_V@H_ e [facility], [place] [address], [place] [address] , Ph. Results Test Description Test Time Test Comments Results Result Comments Source ECG 12 lead 2019-12-10 16:17:46 Test Item Value Reference Range Interpretation Comme nts Ventricular rate (test code = 253) 70 Atrial rate (test code = 255) 70 WI interval (test code = 266) 144 QRSD [...] Lateral leads- [facility] [place] < 1 [id number] 19:38:18Hm Interface, Radiology Results Incoming - 12/09/2019 7:41 PM CDTFormatting of this note might be di fferent from the original.EXAMINATION: [place] < 1 HOURCLINICAL HISTORY: None provided.IMPRESSION:1. Fluoroscopy was provided in the operating. I was not present during the procedure.2. Please refer to the operative report for findings.3. Total Dose: 114 fluoroscopic images. 27.1 minutes of fluoroscopy time.Nazario BlakeDrrtfgyrzRofwxg3759-30-87 13:56:58WeAntonieta kingsley CRNA 12/09/2019 1:57 PMAirway Date/Time: 12/09/2019 1:57 PMPerformed by: Antonieta Lawrence CRNAAuthorized by: Sameer Donohue MD Location: ORUrgency: ElectiveDifficult Airway: No Anesthesiologist: Sameer Donohue MDResident/TRANSPORTATION ENGINEERING TECHNICIAN/AA: Antonieta Lawrence CRNAPerformed by: resident/TRANSPORTATION ENGINEERING TECHNICIAN/AAPreoxygenated with 100% O2: Yes C-spine Precautions Maintained Throughout: Yes Mask Ventilation: Not attemptedFinal Airway Type: Supraglottic airwayFinal LMA: I-GelLMA Size: 4Number of Attempts at Approach: 1[facility] MethodistEC[facility] Pre/Post [id number] 00:44:14 Test Item Value Reference Range Interpretation Comments Ventricular rate (test 70 code = 253) Atrial rate (test code = 70 255) WI interval (test code = 136 266) QRSD [...] ECGs available-Electronica lly Signed By Samuel CABALLERO, Evelyn ([id number]) on 12/06/2019 12:44:11 AM Nazario ShahLjqdwtpreACUN-TdJ-2 (COVID-19) RNA [Presence] in Respiratory specimen by DELMI with probe [id number] 21:13:34 Test Item Value Reference Range Interpretation Comments SARS-CoV-2 (COVID-19) RNA Not detected Not-Detected [Presence] in Respiratory specimen by DELMI with probe detection (test code = 54758-4) XR Chest 2 [id number] 16:56:18Hm Interface, Radiology Results - 12/05/2019 4:59 PM CDT EXAMINATION: XR CHEST 2 VWCLINICAL HISTORY: Z01.818 Encounter for other preprocedural examination, PRE OPCOMPARISON: None.IMPRESSION:Heart and mediastinum: Cardiomediastinal silhouette is prominent. Atherosclerotic calcifications of the aortic arch.Lungs and pleura: There is no focal airspace disease, pleural effusion or pneumothorax.Bones: No acute abnormality.Spinal cord stimulator device seen overlying the thoracic spine.[facility]-[id number] and approved by vice president lending/fellow: Joseph Malik M.D.I, Daniel Abbott, personally reviewed the images and resident's/fellow's findings and agree with the final report.Nazario ShahARS-CoV2/RT-PCR ([facility]) 2019-10-04 22:28:00 Test Item Value Reference Range Interpretation Comments SARS-COV2/RT-PCR Negative Not Detected, (test code = Negative, See 60430-2) external report for linked test SARS-COV-2 [facility] SUZI PERFORMING LAB (test code = 49158-9) STEVEN (test code = Negative result for [...] of the Act. Fact Sheet for Healthcare Providers:https://www.[employer]/sites/default/f eunice/product/documents/F act_Sheet_HC_Providers_L zbg_CMUF-SlY-7.pdf Fact Sheet for Healthcare Patients:https://www.Prism [employer]/sites/default/fi les/product/documents/Fa ct_Sheet_Patients_Lyra_S ARS-CoV-2.pdf Performing Laboratory:[place] [address] [address] Chandra.[address]ARS-COV2/RT-PCR ([facility])2019-10-04 22:28:00 Test Item Value Reference Range Interpretation Comments SARS-COV2/RT-PCR (test Negative Not Detected, Negative, code = 4121026) See external report for linked test SARS-COV-[address] [facility] SUZI (test code = 4289320) Negative result for this test determines that [...] 564(g) of the Act.Fact Sheet for Healthcare Providers:https://www.[employer]/sites/default/files/product/documents/Fact_Shee k_UX_Gnjymlopr_Xnjy_RAJL-EvO-8.pdfFact Sheet for Healthcare Patients:https://www.[employer]/sites/default/files/product/ documents/Qinx_Qmgpd_Nljabpfd_Omdn_PMIU-QcQ-4.pdfPerforming Laboratory:[facility], [place] [address]RQKF-ANB4/RT-PCR ([facility])2019-10-01 04:23:00 Test Item Value Reference Range Interpretation Comments SARS-COV2/RT-PCR (test code Negative Not Detected, Negative, = 9401761) See external report for linked test SARS-COV-[address] [facility] (test code = 0252949) Negative results do not preclude SARS-CoV-2 infection [...] of the Act.Fact Sheet for Healthcare Pro viders:https://www.Kyield/Documents/Xpert%20Xpress%20SARS%20CoV-2/Fact%20Sh eets/302-3802%78SIRL-BBO-4%20HEALTHCARE%20PROVIDERS%20FACT%20SHEET.pdfFact Sheet for Healthcare Patients:https://www.Healcerion/Documents/Xpert%20Xpress%20SARS%20CoV-2/Fact%20Sheets/302-3801%20SARS-COV -2%20PATIENT%20FACT%20SHEET.pdfPerforming Laboratory:[address]pamela [place], [place] [address]LQIXHHP IMAGING, MULTI, PHARM, SPECT 2019-02-21 15:54:00Referring: Dr. Schultz EtheridgeFINAL REPORT PROCEDURE: MYOCARDIAL PERFUSION SPECT IMAGING (Rest/Stress)CPT CODE: 70359 INDICATION: Renal transplant evaluation, hypertension, shortness of [...] MDReport Verified Date/Time: 02/21/2019 15:54:30 Reading Location: [address] Reading Room [id number] 17:11:00 Test Item Value Reference Range Interpretation Comments PROSTATE SPECIFIC ANTIGEN (BEAKER) 0.8 ng/mL 0.0-4.0 (test code = 844) HEPATITIS B SURFACE [id number] 17:11:00 Test Item Value Reference Range Interpretation Comments HEPATITIS B SURFACE ANTIBODY 612.9 mIU/mL <8.0 H (BEAKER) (test code = 647) PROTHROMBIN [id number] 14:59:00 Test Item Value Reference Range Interpretation Comments PROTIME (BEAKER) (test code = 15.6 seconds 11.7-14.7 H 759) INR (BEAKER) (test code = 370) 1.2 <=5.9 RECOMMENDED COUMADIN/WARFARIN INR THERAPY RANGESSTANDARD DOSE: 2.0 - 3.0 Includes: PROPHYLAXIS forvenous thrombosis, systemic embolization; TREATMENT for venous thrombosis and/or pulmonary embolus.HIGH RISK: Target INR is 2.5-3.5 for patients with mechanical heart valves.BASIC METABOLIC [id number] 14:58:00 Test Item Value Reference Range Interpretation [...] APPLICABLE FOR DIALYSIS PATIEN TS. HEPATIC FUNCTION [id number] 14:53:00 Test Item Value Reference Range Interpretation [...] 6-55 347) CBC W/PLT COUNT & AUTO [id number] 14:19:00 Test Item Value Reference Range Interpretation [...] = 2801) FLOW PRA CLASS I AND [id number] 12:02:00 Test Item Value Reference Range Interpretation Comments DATE OF SERUM (BEAKER) 9110312 (test code = 2289) SERUM # (BEAKER) (test 299648 code = 7814) FLOW PRA CLASS I AND II See Scanned Report (test code = 2421) HEPATITIS B SURFACE [id number] 13:18:00 Test Item Value Reference Range Interpretation Comments HEPATITIS B SURFACE ANTIBODY < mIU/mL <8.0 (BEAKER) (test code = 647) [id number] 13:08:00 Test Item Value Reference Range Interpretation Comments PROSTATE SPECIFIC ANTIGEN (BEAKER) 0.9 ng/mL 0.0-4.0 (test code = 844) FLOW PRA CLASS I AND [id number] 16:00:00 Test Item Value Reference Range Interpretation Comments DATE OF SERUM (BEAKER) 6040312 (test code = 2289) SERUM # (BEAKER) (test 10290705 code = 2290) FLOW PRA CLASS I AND II See Scanned Report (test code = 2421) BASIC METABOLIC [id number] 15:51:00 Test Item Value Reference Range Interpretation [...] APPLICABLE FOR DIALYSIS PATIEN TS. HEPATIC FUNCTION [id number] 15:48:00 Test Item Value Reference Range Interpretation [...] 6-55 347) CBC W/PLT COUNT & AUTO [id number] 15:11:00 Test Item Value Reference Range Interpretation [...] (test code = 417) 0.00AFB CULTURE + [id number] 19:58:00 Test Item Value Reference Range Interpretation Comments CULTURE (BEAKER) (test No acid-fast bacilli code = 1095) isolated in 42 days AFB SMEAR (BEAKER) No acid fast bacilli (test code = 994) seen AFB CULTURE + [id number] 19:58:00 Test Item Value Reference Range Interpretation Comments CULTURE (BEAKER) (test No acid-fast bacilli code = 1095) isolated in 42 days AFB SMEAR (BEAKER) No acid fast bacilli (test code = 994) seen AFB CULTURE + [id number] 18:21:00 Test Item Value Reference Range Interpretation Comments CULTURE (BEAKER) (test No acid-fast bacilli code = 1095) isolated in 42 days AFB SMEAR (BEAKER) No acid fast bacilli (test code = 994) seen POCT-GLUCOSE [id number] 10:30:00 Test Item Value Reference Range Interpretation Comments POC-GLUCOSE METER 468 mg/dL 70-[address] [facility] 6720 ([facility]) (test code = [place] 1538) [address] CREATINE KINASE (CK), TOTAL AND [id number] 08:31:00 Test Item Value Reference Range Interpretation Comments CREATINE KINASE TOTAL (BEAKER) 42 U/L 29-200 (test code = 380) CREATINE KINASE-MB (BEAKER) (test 2.3 ng/mL 0.0-6.6 code = 750) CREATINE KINASE-MB INDEX (BEAKER) 5.5 % (test code = 395) Effective 01/21/2014: CK-MB Reference Range ChangeNew: 0.0-6.6 Previous: 0.0-4.9CK-MB Reference Range:<6.7 Normal6.7-10.0 Borderline>10.0 AbnormalTROPONIN [id number] 08:31:00 Test Item Value Reference Range Interpretation [...] acute neurological disease, and persistent tachyarrhythmia.BASIC METABOLIC [id number] 08:27:00 Test Item Value Reference Range Interpretation [...] S NOT APPLICABLE FOR DIALYSIS PATIEN TS. [id number] 08:24:00 Test Item Value Reference Range Interpretation Comments MAGNESIUM (BEAKER) (test code = 2.4 mg/dL 1.6-2.6 627) CBC W/PLT COUNT & AUTO [id number] 08:17:00 Test Item Value Reference Range Interpretation [...]
--- NOTE | 2020-08-28 17:41 | RAD REPORT ---
EXAM DESCRIPTION: RAD - Chest Single View - 08/28/2020 5:33 pm CLINICAL HISTORY: left side rib pain Chest pain. COMPARISON: Chest Single View dated 07/06/2020; Chest Single View dated 02/25/2020; Chest Single View dated 11/08/2019; Chest Single View dated 10/04/2019; CHEST SINGLE VIEW dated 11/14/2014; Stone Protocol dated 07/11/2020 FINDINGS: Portable technique limits examination quality. Mild interstitial pulmonary edema is noted. The heart is mildly to moderately enlarged. No displaced fractures. IMPRESSION: Mild CHF versus volume overload pattern.
[2020-08-28] MEDS ORDERED: FENTANYL CITR 100 MCG/2 ML ONE ×2 (17:42→19:01)
[2020-08-28 18:00] LABS: Basophils % 1.2 % (0-1.3); Hematocrit 33.2 % (39.6-49.0); Lymphocytes % 16.1 % (15.3-44.8); MPV 9.5 fL (7.6-11.3); RBC Red Blood Cell Count 3.43 M/uL (4.33-5.43)
[2020-08-28 18:07] LABS: Protime INR 1.09
[2020-08-28 18:29] LABS: ALT/SGPT 37 U/L (12-78); AST/SGOT 48 U/L (15-37); Albumin 3.3 g/dL (3.4-5.0); Alkaline Phosphatase 261 U/L (45-117); BUN Blood Urea Nitrogen 60 mg/dL (7-18); Bicarbonate 22 mmol/L (21-32); Bilirubin Direct 0.9 mg/dL (0-0.2); Bilirubin Total 1.3 mg/dL (0.2-1.0); Glucose Level 227 mg/dL (74-106); Magnesium 2.7 mg/dL (1.8-2.4); Potassium 4.6 mmol/L (3.5-5.1); Protein, Total 7.3 g/dL (6.4-8.2); Sodium Level 134 mmol/L (136-145); Troponin (Emerg Dept Use Only) 0.25 ng/mL (0.0-0.045)
[2020-08-28 18:38] LABS: NT PRO-BNP > 175000 pg/mL (<125)
--- NOTE | 2020-08-28 18:50 | RAD REPORT ---
EXAM DESCRIPTION: CT - Chest Abd Pelvis Wo Con - 08/28/2020 5:58 pm CLINICAL HISTORY: Chest and abdomen pain. fall COMPARISON: Thorax Wo Con dated 01/07/2019 TECHNIQUE: A limited noncontrast study was performed. All CT scans are performed using dose optimization technique as appropriate and may include automated exposure control or mA/KV adjustment according to patient size. FINDINGS: 12-13 mm noncalcified pulmonary nodule has developed in the left upper lobe since 2019 com parative study. A few small adjacent nodules are also present. .Trace right pleural effusion.Mildly e nlarged lymph nodes are seen in the mediastinum, including AP window measuring 13 mm and pretracheal space measuring 12 mm. Liver size is prominent with mild liver contour nodularity suggesting mild cirrhosis. The spleen, adr enal glands are normal. [place] kidneys appear small in size. No gross acute pancreatic finding. No bowel obstruction, free air, free fluid or abscess. Prominent stool is present throughout the colo n. Aortoiliac atherosclerosis. No pathologic lymphadenopathy in the abdomen or pelvis. Degenerative change with extensive postsurgical change of the lumbar spine. Minimally displaced fract ure of the left lateral eighth, ninth and tenth rib suspected. IMPRESSION: Several minimally displaced left lateral inferior rib fractures without pneumothorax or evidence of solid organ injury. 12-13 mm noncalcified pulmonary nodule has developed in the left upper lobe since 2019. Recommend fol low-up interval CT chest in 3 months or PET-CT follow-up. Liver size is prominent with mild cirrhotic pattern suspected.
--- NOTE | 2020-08-28 20:10 | EDPHYS ---
Physician Documentation [facility] Name: Alexis Urbano Age: 65 yrs Sex: Male : 1955 Arrival Date: 08/28/2020 Time: 13:12 Bed 13 Private MD: ED Physician Homar Munoz HPI: 08/28 17:20 This 65 yrs old Male presents to ER via EMS with complaints of Fall Injury, cp Hand Pain - twitching. 17:20 Details of fall: The patient fell from an upright position, while standing, and struck cp a tile surface. Onset: The symptoms/episode began/occurred yesterday. 17:20 Associated injuries: The patient sustained injury to the chest, specifically the left cp lateral rib area, pain with breathing, pain with movement. Severity of symptoms: in the emergency department the symptoms are unchanged, despite home interventions. Patient also c/o bilateral hand tremor, ankle swelling. Patient reports missing dialysis today and last appointment for dialysis was Monday. Historical: - Allergies: 13:51 No Known Allergies; kg - Home Meds: 13:51 Albuterol Inhl [Active]; Bumetanide Oral [Active]; carvedilol oral oral [Active]; kg Clonidine Oral [Active]; doxazosin oral oral [Active]; gabapentin oral oral [Active]; Hydralazine Oral [Active]; Plavix Oral [Active]; pravastatin oral oral [Active]; - PMHx: 13:53 Diabetes - NIDDM; ESRD; Hypertension; Dialysis; M/W/F; COPD; High Cholesterol; kg - PSHx: 13:53 Cage in back placed in 06; kg - Immunization history:: Adult Immunizations up to date. - Social history:: Smoking status: unknown. ROS: 17:25 Constitutional: Negative for body aches, chills, fever, poor PO intake. cp 17:25 Eyes: Negative for injury, pain, redness, and discharge. cp 17:25 Cardiovascular: Positive for chest pain, of the left lateral rib area, edema. 17:25 Respiratory: Negative for shortness of breath, wheezing. 17:25 Abdomen/GI: Negative for vomiting, diarrhea, constipation. 17:25 Back: Negative for radiated pain. 17:25 Neuro: Positive for tremor, Negative for altered mental status, dizziness, headache, loss of consciousness, syncope. 17:25 All other systems are negative. Exam: 17:30 Constitutional: The patient appears in no acute distress, alert, awake, cp non-diaphoretic, non-toxic, well developed, well nourished, uncomfortable. 17:30 Head/Face: Normocephalic, atraumatic. cp 17:30 Eyes: Periorbital structures: appear normal, Conjunctiva: normal, no exudate, no injection, Sclera: no appreciated abnormality, Lids and lashes: appear normal, bilaterally. 17:30 ENT: External ear(s): are unremarkable, Nose: is normal, Posterior pharynx: Airway: no evidence of obstruction, patent. 17:30 Neck: C-spine: vertebral tenderness, is not appreciated, crepitus, is not appreciated. 17:30 Chest/axilla: Inspection: normal, Palpation: crepitus, is not appreciated, tenderness, that is severe, of the left lateral anterior chest and left lateral posterior chest. 17:30 Cardiovascular: Rate: bradycardic, Rhythm: regular, Edema: ankle edema, that is mild, JVD: is not appreciated. 17:30 Respiratory: the patient does not display signs of respiratory distress, Respirations: shallow respirations, that is mild, Breath sounds: bronchial sounds, that are mild, are heard diffusely. 17:30 Abdomen/GI: Inspection: bruising, left lower flank, distension, is not seen, Bowel sounds: active, all quadrants, Palpation: soft, in all quadrants, moderate abdominal tenderness, in the left lower flank, rebound tenderness, is not appreciated, involuntary guarding, is not appreciated. 17:30 Back: vertebral tenderness, is not appreciated. 17:30 Musculoskeletal/extremity: Exam is negative for decreased range of motion, deformity, injury. 17:30 Neuro: Orientation: to person, place \T\ time. Mentation: is normal, Motor: moves all fours, strength is normal. 18:22 ECG was reviewed by the Attending Physician. cp Vital Signs: 16:08 BP 161 / 63; Pulse 53; Resp 20; Temp 97.7(TE); Pulse Ox 97% on R/A; Weight 77.11 kg kg (R); Height 5 ft. 6 in. (167.64 cm) (R); Pain 9/10; 18:30 BP 158 / 62; Pulse 48; Resp 18; Pulse Ox 100% on R/A; zb 19:30 BP 162 / 62; Pulse 47; Resp 18; Pulse Ox 97% on R/A; zb 20:30 BP 163 / 86; Pulse 46; Resp 18; Pulse Ox 96% on R/A; zb 21:00 BP 166 / 70; Pulse 46; Resp 16; Pulse Ox 97% on R/A; zb 22:44 BP 163 / 56; Pulse 45; Resp 16; Pulse Ox 97% on R/A; zb 16:08 Body Mass Index 27.44 (77.11 kg, 167.64 cm) kg MDM: 17:05 Patient medically screened. [facility] 19:00 Data reviewed: vital signs, nurses notes, lab test result(s), EKG, radiologic studies, cp CT scan. 19:00 Test interpretation: by ED physician or midlevel provider: ECG, plain radiologic cp studies. 20:00 Physician consultation: Sixto MATHIS was called at 20:00, was contacted at 20:00, regarding admission, to the telemetry unit. patient's condition. 08/28 17:15 Order name: Basic Metabolic Panel; Complete Time: 18:39 08/28 18:39 Interpretation: Normal except: NA 134; GLUC 227; BUN 60; CRE 8.06; GFR 7; CA 6.7. cp 08/28 17:15 Order name: CBC with Diff; Complete Time: 18:33 08/28 18:33 Interpretation: Normal except: RBC 3.43; HGB 10.6; HCT 33.2; PLT 125; RDW 15.8. 08/28 17:15 Order name: LFT's; Complete Time: 18:39 cp 08/28 18:40 Interpretation: Normal except: AST 48; ALK 261; BILIT 1.3; BILID 0.9; ALB 3.3; GLOB cp 4.0; A/G 0.8. 08/28 17:15 Order name: Magnesium; Complete Time: 18:39 cp 08/28 18:40 Interpretation: Abnormal: MG 2.7. 08/28 17:15 Order name: NT PRO-BNP; Complete Time: 18:39 cp 08/28 18:40 Interpretation: Abnormal: NT PRO-BNP > [id number]. cp / 17:15 Order name: PT-INR; Complete Time: 18:33 cp 08/28 17:15 Order name: Troponin (emerg Dept Use Only); Complete Time: 18:39 cp 08/28 18:40 Interpretation: Abnormal: TROPED 0.25. cp / 17:15 Order name: XRAY Chest (1 view); Complete Time: 18:33 cp 08/28 17:15 Order name: CT Chest Abdomen Pelvis W/O Contrast; Complete Time: 18:51 cp 08/28 18:53 Order name: INCENTIVE SPIROMETRY cp 08/28 17:15 Order name: EKG; Complete Time: 17:16 cp 08/28 17:15 Order name: Cardiac monitoring; Complete Time: 18:48 cp 08/28 17:15 Order name: EKG - Nurse/Tech; Complete Time: 18:48 cp 08/28 17:15 Order name: IV Saline Lock; Complete Time: 17:52 cp 08/28 17:15 Order name: Labs collected and sent; Complete Time: 17:19 cp 08/28 17:15 Order name: O2 Per Protocol; Complete Time: 17:53 cp 08/28 17:15 Order name: O2 Sat Monitoring; Complete Time: 17:53 cp EC:22 Rate is 51 beats/min. Rhythm is regular. NM interval is normal. QRS interval is normal. cp QT interval is prolonged at 564 msec. T waves are Inverted in lead aVR. Interpreted by me. Reviewed by me. Administered Medications: 17:53 Drug: fentaNYL (PF) 25 mcg {Note: RASS +1.} Route: IVP; Site: right antecubital; zb 18:20 Follow up: Response: No adverse reaction; No change in condition; Pain is unchanged, zb physician notified; RASS: Alert and Calm (0) 18:47 Drug: fentaNYL (PF) 25 mcg Route: IVP; Site: right forearm; zb 19:20 Follow up: Response: No adverse reaction; Pain is unchanged, physician notified; RASS: zb Alert and Calm (0) 20:10 Drug: morphine 4 mg {Note: RASS 1.} Route: IVP; Site: right antecubital; zb 20:30 Follow up: Response: No adverse reaction; Pain is decreased; RASS: Alert and Calm (0) zb 22:43 Drug: morphine 2 mg Route: IVP; Site: right forearm; zb 22:48 Follow up: Response: No adverse reaction; Marked relief of symptoms; Pain is decreased; zb RASS: Alert and Calm (0) Disposition: 08/29 21:14 Co-signature as Attending Physician, Homar CABALLERO I agree with the assessment and chris plan of care. Disposition: 08/28/20 20:10 Hospitalization ordered by Yeyo Carreon for Inpatient Admission. Preliminary diagnosis are End stage renal disease, Fall on same level from slipping, tripping and stumbling, Elevated Troponin, Multiple fractures of ribs, left side. - Bed requested for Telemetry/MedSurg (Inpatient). - Status is Inpatient Admission. zb - Condition is Stable. - Problem is new. - Symptoms have improved. Signatures: Dispatcher [employer] EDHomar Mukherjee MD MD cha Page, Corey, [place] cp, RN RN rd1 Candice Nixon RN RN zNadya Saldivar RN RN kg Corrections: (The following items were deleted from the chart) 08/28 18:39 18:39 Normal except: NA 134; GLUC 227; BUN 60; CRE 8.06; GFR 7. cp cp 18:40 18:39 Normal except: AST 48; ALK 261; BILIT 1.3; BILID 0.9; ALB 3.3; GLOB 4.0. cp cp 21:00 20:10 Hospitalization Ordered by Yeyo Carreon DO for Inpatient Admission. Preliminary rd1 diagnosis is End stage renal disease; Fall on same level from slipping, tripping and stumbling; Elevated Troponin; Multiple fractures of ribs, left side. Bed requested for Telemetry/MedSurg (Inpatient). Status is Inpatient Admission. Condition is Stable. Problem is new. Symptoms have improved. cp 22:49 21:00 08/28/2020 20:10 Hospitalization Ordered by Yeyo Carreon DO for Inpatient zb Admission. Preliminary diagnosis is End stage renal disease; Fall on same level from slipping, tripping and stumbling; Elevated Troponin; Multiple fractures of ribs, left side. Bed requested for Telemetry/MedSurg (Inpatient). Status is Inpatient Admission. Condition is Stable. Problem is new. Symptoms have improved. rd1
--- NOTE | 2020-08-28 20:10 | ER ---
Nurse's Notes [facility] Name: Alexis Urbano Age: 65 yrs Sex: Male : 1955 Arrival Date: 08/28/2020 Time: 13:12 Bed 13 Private MD: Diagnosis: End stage renal disease;Fall on same level from slipping, tripping and stumbling;Elevated Troponin;Multiple fractures of ribs, left side Presentation: 08/28 13:41 Chief complaint: EMS states: Pt stated he fell yesterday 08/27 and broke two ribs, also kg complaining of hand twitching which his dialysis Dr. stated he wanted him to get checked out to make sure he isnt having a heart attack. Coronavirus screen: Client denies travel out of the [place] in the last 14 days. At this time, unable to obtain information related to travel outside the [place] At this time, the client does not indicate any symptoms associated with coronavirus-19. Ebola Screen: Patient negative for fever greater than or equal to 101.5 degrees Fahrenheit, and additional compatible Ebola Virus Disease symptoms Patient denies exposure to infectious person. Patient denies travel to an Ebola-affected area in the 21 days before illness onset. Initial Sepsis Screen:. Onset of symptoms was August 27, 2020. 13:41 Method Of Arrival: EMS: [facility] kg 13:41 Acuity: JOEL 3 kg 17:56 Initial Sepsis Screen: Does the patient meet any 2 criteria? No. Patient's initial zb sepsis screen is negative. Does the patient have a suspected source of infection? No. Patient's initial sepsis screen is negative. Risk Assessment: Do you want to hurt yourself or someone else? Patient reports no desire to harm self or others. Triage Assessment: 13:54 General: Appears in no apparent distress. Behavior is calm, cooperative, appropriate kg for age, quiet. 17:30 General: Appears in no apparent distress. Behavior is calm, cooperative, appropriate zb for age. Pain: Complains of pain in chest. EENT: No deficits noted. Neuro: Level of Consciousness is awake, alert, obeys commands, Oriented to person, place, time, situation. Cardiovascular: Patient's skin is warm and dry. Respiratory: Airway is patent Respiratory effort is even, unlabored, Respiratory pattern is regular, symmetrical. GI: Abdomen is flat. Derm: Skin is intact, is healthy with good turgor, Skin is normal. Musculoskeletal: Range of motion: intact in all extremities. Historical: - Allergies: 13:51 No Known Allergies; kg - Home Meds: 13:51 Albuterol Inhl [Active]; Bumetanide Oral [Active]; carvedilol oral oral [Active]; kg Clonidine Oral [Active]; doxazosin oral oral [Active]; gabapentin oral oral [Active]; Hydralazine Oral [Active]; Plavix Oral [Active]; pravastatin oral oral [Active]; - PMHx: 13:53 Diabetes - NIDDM; ESRD; Hypertension; Dialysis; M/W/F; COPD; High Cholesterol; kg - PSHx: 13:53 Cage in back placed in 06; kg - Immunization history:: Adult Immunizations up to date. - Social history:: Smoking status: unknown. Screenin:53 Abuse screen: Denies threats or abuse. Denies injuries from another. Nutritional kg screening: No deficits noted. Tuberculosis screening: No symptoms or risk factors identified. Fall Risk Fall in past 12 months (25 points). No secondary diagnosis (0 pts). IV access (20 points). Ambulatory Aid- Crutches/Cane/Walker (15 pts). Gait- Weak (10 pts.). Mental Status- Oriented to own ability (0 pts). Total Gray Fall Scale indicates Low Risk Score (25-44 pts). Fall prevention measures have been instituted. Side Rails Up X 2 Placed close to Nursing Station Frequent Obs/Assesments occuring As available Patient and Family Educated on Fall Prevention Program and strategies. Primary Survey: 13:54 NO uncontrolled hemorrhage observed. A: The patient is alert. Airway: patent. kg Breathing/Chest: Respiratory pattern: regular, Respiratory effort: spontaneous, unlabored, Breath sounds: clear, bilaterally. Chest inspection: symmetrical rise and fall of the chest. Circulation: Cardiac rhythm: sinus rhythm Heart tones present. Pulses: palpable right radial artery and left radial artery. Skin color: pink, Skin temperature: warm. Disability Alert. Assessment: 18:30 General: Appears in no apparent distress. uncomfortable, Behavior is calm, cooperative, zb anxious. Pain: Complains of pain in diaphragm, left breast, left hip and back Pain does not radiate. Pain currently is 9 out of 10 on a pain scale. Quality of pain is described as aching, sharp, Pain began 1 day ago. Is continuous, Alleviated by nothing. Aggravated by increased activity, repositioning, weight bearing. Neuro: Level of Consciousness is awake, alert, obeys commands, Oriented to person, place, time, situation. Cardiovascular: Capillary refill < 3 seconds Patient's skin is warm and dry. Cardiovascular: Rhythm is sinus bradycardia. Respiratory: Airway is patent Respiratory effort is even, unlabored, Respiratory pattern is regular, symmetrical. GI: No signs and/or symptoms were reported involving the gastrointestinal system. Derm: Skin is intact, is healthy with good turgor. Musculoskeletal: Range of motion: intact in all extremities. 20:00 Reassessment: Patient appears in no apparent distress at this time. Patient and/or zb family updated on plan of care and expected duration. Pain level reassessed. Patient is alert, oriented x 3, equal unlabored respirations, skin warm/dry/pink. c/o pain notified ecp medication ordered. 21:30 Reassessment: Patient appears in no apparent distress at this time. Patient and/or zb family updated on plan of care and expected duration. Pain level reassessed. Patient is alert, oriented x 3, equal unlabored respirations, skin warm/dry/pink. pain decreased. 21:54 Reassessment: attempted to call report. RN will call back. Vital Signs: 16:08 BP 161 / 63; Pulse 53; Resp 20; Temp 97.7(TE); Pulse Ox 97% on R/A; Weight 77.11 kg kg (R); Height 5 ft. 6 in. (167.64 cm) (R); Pain 9/10; 18:30 BP 158 / 62; Pulse 48; Resp 18; Pulse Ox 100% on R/A; zb 19:30 BP 162 / 62; Pulse 47; Resp 18; Pulse Ox 97% on R/A; zb 20:30 BP 163 / 86; Pulse 46; Resp 18; Pulse Ox 96% on R/A; zb 21:00 BP 166 / 70; Pulse 46; Resp 16; Pulse Ox 97% on R/A; zb 22:44 BP 163 / 56; Pulse 45; Resp 16; Pulse Ox 97% on R/A; zb 16:08 Body Mass Index 27.44 (77.11 kg, 167.64 cm) kg ED Course: 13:12 Patient arrived in ED. am2 13:48 Triage completed. kg 17:05 Homar Beck PA is PHCP. cp 17:05 Homar Munoz MD is Attending Physician. cp 17:18 Candice Nxion, RN is Primary Nurse. zb 17:33 XRAY Chest (1 view) In Process Unspecified. EDMS 17:53 Initial lab(s) drawn, by me, sent to lab. Inserted saline lock: 20 gauge in right em1 antecubital area, using aseptic technique. Blood collected. 17:58 CT Chest Abdomen Pelvis W/O Contrast In Process Unspecified. EDMS 18:30 Patient has correct armband on for positive identification. Placed in gown. Bed in low zb position. Call light in reach. monitoring engineer on. Pulse ox on. NIBP on. 18:50 Arm band placed on. zb 20:08 Yeyo Carreon DO is Hospitalizing Provider. cp 22:31 INCENTIVE SPIROMETRY Sent. zb 22:40 No provider procedures requiring assistance completed. Patient admitted, IV remains in zb place. Administered Medications: 17:53 Drug: fentaNYL (PF) 25 mcg {Note: RASS +1.} Route: IVP; Site: right antecubital; zb 18:20 Follow up: Response: No adverse reaction; No change in condition; Pain is unchanged, zb physician notified; RASS: Alert and Calm (0) 18:47 Drug: fentaNYL (PF) 25 mcg Route: IVP; Site: right forearm; zb 19:20 Follow up: Response: No adverse reaction; Pain is unchanged, physician notified; RASS: zb Alert and Calm (0) 20:10 Drug: morphine 4 mg {Note: RASS 1.} Route: IVP; Site: right antecubital; zb 20:30 Follow up: Response: No adverse reaction; Pain is decreased; RASS: Alert and Calm (0) zb 22:43 Drug: morphine 2 mg Route: IVP; Site: right forearm; zb 22:48 Follow up: Response: No adverse reaction; Marked relief of symptoms; Pain is decreased; zb RASS: Alert and Calm (0) Outcome: 20:10 Decision to Hospitalize by Provider. cp 22:40 Admitted to Med/surg accompanied by tech, room 231, with chart, Report called to seble Mock RN 22:40 Condition: stable 22:40 Instructed on the need for admit. 22:49 Patient left the ED. seble Signatures: Dispatcher [employer] EDKannan Oliver em1 Homar Beck PA PA rita Car, Lissett am2 Candice Nixon RN RN zb Graham, Kristen, RN RN kg Corrections: (The following items were deleted from the chart) 21:56 20:00 Reassessment: Patient appears in no apparent distress at this time. Patient zb and/or family updated on plan of care and expected duration. Pain level reassessed. Patient is alert, oriented x 3, equal unlabored respirations, skin warm/dry/pink. c/o pain notified ecp seble
[2020-08-28] MEDS ORDERED: MORPHINE 4 MG/ML SYR ONE (20:17)
--- NOTE | 2020-08-28 20:59 | P.HP ---
Certification for Inpatient Patient admitted to: Inpatient With expected LOS: >2 Midnights Patient will require the following post-hospital care: None Practitioner: I am a practitioner with admitting privileges, knowledge of patient current condition, hospital course, and medical plan of care. Services: Services provided to patient in accordance with Admission requirements found in Title 42 Section 412.3 of the Code of Federal Regulations Patient History Date of Service: 08/28/20 Primary Care Provider: Dr. izaguirre Reason for admission: NSTEMI, ESRD/HD History of Present Illness: 65-year-old male with history of ESRD on HD MWF, diabetes mellitus type 2, hypertension, COPD presents emergency department for shortness of breath, lower extremity edema. Patient reports that he did not go to dialysis today and only partially completed dialysis on Monday. Patient also reports that he had a mechanical fall yesterday with injury to the left side/fractured ribs. 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 Patient evaluated in the emergency department, labs significant for sodium 134 creatinine 8.06 GFR 7 glucose 227 calcium 6.7 magnesium 2.7 troponin 0.25 BNP greater than 175,000 albumin 3.3, EKG without acute changes, chest x-ray shows mild overload pattern, CT chest abdomen pelvis not contrast demonstrates several minimally displaced left lateral inferior rib fractures without pneumothorax or evidence of solid organ injury, 12-13 mm noncalcified pulmonary nodule has developed in left upper lobe since [address] in 3 months or PET, liver with prominent/chronic pattern. ED provider wishes to admit for further evaluation and management. Allergies No Known Drug Allergies Allergy (Mild, Verified 02/25/20 07:41) Unknown Home Medications: Aspirin Chewable [Aspirin Chewable*] 81 mg PO DAILY 11/09/19 Bumetanide [Bumex*] 2 mg PO DAILY 11/09/19 Clonidine HCl [Catapres*] 0.2 mg PO BID 11/09/19 Doxazosin Mesylate [Cardura] 2 mg PO DAILY 11/09/19 Gabapentin [Neurontin*] 300 mg PO DAILY 11/09/19 Hydrocodone Bit/Acetaminophen [Hydrocodon-Acetaminophn 10-325] 1 tab PO QIDP PRN 11/09/19 Pravastatin Sodium [Pravachol] 40 mg PO DAILY 11/09/19 Tizanidine HCl [Zanaflex] 4 mg PO BID 11/09/19 carvediloL [Coreg*] 6.25 mg PO BID 11/09/19 Clopidogrel Bisulfate [Plavix*] 1 tab PO DAILY 02/25/20 Lactulose [Cephulac*] 20 ml PO DAILY 02/25/20 levoFLOXacin [Levofloxacin] 1 tab PO SEECOM 02/25/20 - Past Medical/Surgical History Diabetic: Yes -: Hepatitis-C (cured) -: HTN -: Hyperlipidemia -: Chronic pain -: Chronic anemia -: End-stage renal disease on hemodialysis (MWF) -: Diabetes mellitus type 2 -: Cirrhosis of liver on the CT scan -: COPD -: Left knee replacement -: ankle heel spur removed -: Leftankle surgery -: toe surgery -: back surgery -: TENS implant -: Left femur Psychosocial/ Personal History: Patient is . He has 2 children - Family History Sister -: Diabetes, Cancer Notes: colon ca Brother -: Hypertension, Diabetes dad -: Hypertension Notes: Colostomy mom -: Hypertension, Cancer Notes: dementia, Breast Cancer - Social History Smoking Status: Current every day smoker Alcohol use: No CD- Drugs: No Caffeine use: No Place of Residence: Home Review of Systems 10-point ROS is otherwise unremarkable Respiratory: Cough, Shortness of Breath, SOB with Excertion, Wheezing Physical Examination - Physical Exam General: Alert, In no apparent distress, Oriented x3 HEENT: Atraumatic, PERRLA, Mucous membr. moist/pink Neck: Supple, 2+ carotid pulse no bruit, No LAD Respiratory: Clear to auscultation bilaterally, Crackles/rales (Bibasal) Cardiovascular: Regular rate/rhythm, Normal S1 S2, Edema (Lower extremity edema) Capillary refill: <2 Seconds Gastrointestinal: Normal bowel sounds, No tenderness Musculoskeletal: No tenderness Integumentary: No rashes Neurological: Normal speech, Normal strength at 5/5 x4 extr, Normal tone, Normal affect Lymphatics: No axilla or inguinal lymphadenopathy - Studies Laboratory Data (last 24 hrs) 08/28/20 17:45: PT 12.5, INR 1.09 08/28/20 17:45: WBC 5.90, Hgb 10.6 L, Hct 33.2 L, Plt Count 125 L 08/28/20 17:45: Sodium 134 L, Potassium 4.6, BUN 60 H, Creatinine 8.06 H*, G lucose 227 H, Magnesium 2.7 H, Total Bilirubin 1.3 H, AST 48 H, ALT 37, Alkaline Phosphatase 261 H Assessment and Plan - Plan Assessment NSTEMI likely demand ischemia related to ESRD on HD MWF with noncompliance and volume overload Diabetes mellitus type 2 COPD Hypertension Anemia of chronic disease 12-13 mm noncalcified pulmonary nodule Tobacco abuse Plan NSTEMI likely demand ischemia related to ESRD on HD MWF with noncompliance and volume overload: Cardiology, nephrology consulted. EKG without acute changes, will trend troponin. Patient with recent trauma/rib fractures and elevated troponin likely related to demand ischemia. Patient without chest pain at this time. Will hold off on full anticoagulation therapy at this time. Continue heparin 5000 subcutaneous twice daily for DVT prophylaxis. Aspirin, statin therapy. Obtain and continue home medications. Diabetes mellitus type 2: A.c. HS Accu-Cheks, sliding scale insulin therapy. A1c with morning lab. COPD: P.r.n. nebs, continue home meds. Stable. Hypertension: Continue medications adjust as necessary Anemia of chronic disease: Stable, monitor daily. Transfuse to maintain hemoglobin greater than 7. 12-13 mm noncalcified pulmonary nodule : Recommend follow CT in 3 months or PET scan. This was discussed with patient. Tobacco abuse: Counseled on need for tobacco cessation, will provide with Nicoderm patch. Discharge Plan: Home Plan to discharge in: 48 Hours - Advance Directives Does patient have a Living Will: No Does patient have a Durable POA for Healthcare: No - Code Status/Comfort Care Code Status Assessed: Yes (Full code) Critical Care: No Time Spent Managing Pts Care (In Minutes): 55
[2020-08-28] MEDS: INSULIN -REGULAR HUMAN 50 UNIT/0.5 ML ML SQ SCH (22:21)
[2020-08-28] MEDS ORDERED: ALBUTEROL 2.5 MG/3 ML NEB SOL NEB PRN (22:21)
[2020-08-28] MEDS: HEPARIN 5000 UNIT/ML 1 ML VIAL SQ SCH ×2 (22:21→23:38)
[2020-08-28] MEDS ORDERED: ONDANSETRON 4 MG/2 ML VIAL IV PRN (22:21)
[2020-08-28] MEDS ORDERED: ATORVASTATIN 20 MG TAB PO SCH (22:21)
[2020-08-28] MEDS ORDERED: IPRATROPIUM BROM 0.5MG/2.5ML NEB PRN (22:21)
[2020-08-28] MEDS ORDERED: MORPHINE 2 MG/ML SYR ONE (22:56)
[2020-08-28 23:33] VITALS: BMI 24.3
[2020-08-29] MEDS: MORPHINE 2 MG/ML SYR IV PRN ×4 (00:05→16:54)
[2020-08-29] MEDS: HYDROCODONE/APAP 5/325 MG TAB PO PRN ×2 (02:15→12:37)
[2020-08-29] MEDS: HYDRALAZINE HCL 20 MG/ML VIAL IV PRN ×3 (02:15→16:56)
[2020-08-29 05:38] LABS: Absolute Lymphocytes (CBC) 0.9 K/uL (0.7-4.9); Basophils % 1.4 % (0-1.3); Hematocrit 33.6 % (39.6-49.0); Lymphocytes % 15.6 % (15.3-44.8); MPV 9.7 fL (7.6-11.3); RBC Red Blood Cell Count 3.46 M/uL (4.33-5.43)
[2020-08-29 06:02] LABS: Albumin 3.3 g/dL (3.4-5.0); Bilirubin Total 1.3 mg/dL (0.2-1.0); Magnesium 2.8 mg/dL (1.8-2.4); Potassium 5.5 mmol/L (3.5-5.1); Protein, Total 7.4 g/dL (6.4-8.2); Thyroid Stimulating Hormone 1.89 uIU/mL (0.360-3.740); Troponin I 0.12 ng/mL (0.0-0.045)
--- NOTE | 2020-08-29 06:15 | P.PN ---
Subjective Date of Service: 08/29/20 Primary Care Provider: Dr. izaguirre Chief Complaint: NSTEMI, ESRD/HD Subjective: Other (Missed dialysis on Monday due to truck being down. He had arranged for transportation but they did not arrive. He wants to go home.) Physical Examination - Vital Signs Temperature: 97.9 F Blood Pressure: 171/76 Pulse: 46 Respirations: 16 Pulse Ox (%): 92 - Studies Laboratory Data (last 24 hrs) 08/28/20 17:45: PT 12.5, INR 1.09 08/28/20 17:45: WBC 5.90, Hgb 10.6 L, Hct 33.2 L, Plt Count 125 L 08/28/20 17:45: Sodium 134 L, Potassium 4.6, BUN 60 H, Creatinine 8.06 H*, Glucose 227 H, Magnesium 2.7 H, Total Bilirubin 1.3 H, AST 48 H, ALT 37, Alkaline Phosphatase 261 H Assessment & Plan Discharge Plan: Home Plan to discharge in: 24 Hours Physician Review Additional Text: Physical exam: General: Alert, In no apparent distress, Oriented x3 HEENT: Atraumatic, PERRLA, Mucous membr. moist/pink Neck: Supple, 2+ carotid pulse no bruit, No LAD Respiratory: Clear to auscultation bilaterally, Crackles/rales (Bibasal) Cardiovascular: Regular rate/rhythm, Normal S1 S2, Edema (Lower extremity edema) Capillary refill: <2 Seconds Gastrointestinal: Normal bowel sounds, No tenderness Musculoskeletal: No tenderness Integumentary: No rashes Neurological: Normal speech, Normal strength at 5/5 x4 extr, Normal tone, Normal affect Lymphatics: No axilla or inguinal lymphadenopathy Impression: Elevated Troponin likely demand ischemia related to ESRD on HD MWF with noncompliance and volume overload likely with acute on chronic diastolic CHF Diabetes mellitus type 2 COPD Hypertension Anemia of chronic disease 12-13 mm noncalcified pulmonary nodule Tobacco abuse Plan Elevated Troponin likely demand ischemia related to ESRD on HD MWF with noncompliance and volume overload likely with acute on chronic diastolic CHF: Did not have transportation yesterday for dialysis. Will need dialysis today. Desires to go home today after dialysis. Will check room air sats before and after dialysis. May need home oxygen at [place]. Respiratory consulted to obtain possible need for home oxygen. Spoke with cardiology. No intervention planned at this time. Patient should have outpatient cardiac stress test and ec hocardiogram as an outpatient. Will discuss with nephrology today. Likely discharge after dialysis as the patient is desiring to go home. But will need to determine if patient requires home oxygen at discharge. Will discuss further with nephrology. Patient remains on DVT prophylaxis. Need to obtain and verify home medication. Diabetes mellitus type 2: Continue Accu-Cheks. Sliding scale in place. A1c 5.8. Diabetes well controlled. COPD: Continue with COPD medication. Hypertension: Continue medications adjust as necessary Anemia of chronic disease: Stable, monitor daily. Transfuse to maintain hemoglobin greater than 7. 12-13 mm noncalcified pulmonary nodule : Patient will benefit with pulmonology evaluation as an outpatient to follow this nodule. Recommend recheck CT scan as an outpatient to further monitor stability. Tobacco abuse: Tobacco cessation provided Code Status: Full code DVT prophylaxis: Heparin Advanced care planning: Home at [place] Time Spent Managing Pts Care (In Minutes): 55
--- NOTE | 2020-08-29 06:57 | EKG ---
Test Date: 2020-08-28 Test Time: 18:14:41 Director Of Business Systems: SUSHMA MEASUREMENT RESULTS: Intervals: Rate: 51 AL: 166 QRSD: 86 QT: 564 QTc: 519 [place]: P: 36 AL: 166 QRS: -10 T: 86 INTERPRETIVE STATEMENTS: Sinus bradycardia Cannot rule out Anterior infarct, age undetermined Prolonged QT Abnormal ECG Compared to ECG 07/06/2020 01:47:40 Myocardial infarct finding now present ST (T wave) deviation no longer present Possible ischemia no longer present Electronically Signed On 08-29-20 06:56:18 CDT by Jose Francisco Mckeon
[2020-08-29] MEDS: INSULIN -REGULAR HUMAN 50 UNIT/0.5 ML ML SQ SCH ×3 (07:30→16:30)
[2020-08-29] MEDS: HEPARIN 5000 UNIT/ML 1 ML VIAL SQ SCH (07:44)
[2020-08-29] MEDS ORDERED: ASPIRIN EC 81 MG TAB PO SCH (09:00)
[2020-08-29] MEDS ORDERED: NICOTINE 14 MG/PAT TD SCH (09:00)
[2020-08-29 10:15] VITALS: O2SAT 92
[2020-08-29] MEDS ORDERED: CALCITROL 0.25 MCG CAP PO SCH (11:00)
[2020-08-29] MEDS: CALCIUM CARBONATE CHEW 500MG TAB PO SCH ×2 (12:36→16:41)
--- NOTE | 2020-08-29 13:02 | CON ---
Date of Consultation: 08/29/2020 Reason For Consultation: Elevated BUN and creatinine over volume. History Of Present Illness: This is a pleasant 65-year-old gentleman, well known to me from dialysis with significant past medical history of end-stage renal disease on hemodialysis Monday, Monday, Monday, last dialysis was Monday. Apparently, the patient had full. Missed dialysis on Monday. The patient came complaining from back pain and shortness of breath, found to be over volume. For th at reason, we have been consulted to maintain his dialysis. Past Medical History: Include, 1.Hypertension. 2.Hyperlipidemia. 3.Hep C complicated with cirrhosis. 4.End-stage renal disease on Monday, Monday, Monday. 5.Diabetes complicated with neuropathy and nephropathy. 6.Peripheral vascular disease with ischemia. 7.Renal artery stenosis. 8.Low back pain. Allergies: NO KNOWN DRUG ALLERGIES. Social History: Denies smoking. Denies drinking. Denied drugs abuse. Family History: Positive for diabetes and cancer. Home Medications: Include, 1.Aspirin. 2.Bumex 2 mg daily. 3.Clonidine. 4.Cardura. 5.Gabapentin. 6.Hydrocodone. 7.Pravastatin. 8.Carvedilol 6.25. 9.Plavix. 10.Levaquin. Past Surgical History: Include left femoral surgery, low back injection and surgery, AV fistula crea tion, and tonsillectomy. Review of Systems: Head and Neck: No red eye. No ear pain. GI: No nausea. No vomiting. : No polyuria. No dysuria. No hematuria. 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 Respiratory: Has shortness of breath. Cardiovascular: No chest pain. Endocrine: No polydipsia. Skin: No rash. Neuro: Has neuropathy, has low back pain. Musculoskeletal: Low back pain. Endocrine: No polydipsia. Physical Examination: Vital Signs: When I saw the patient, blood pressure of 137/65, pulse of 48, afebrile. Chest: Crackles bilateral. Heart: S1, S2. Systolic murmur. Abdomen: Soft, nontender. Extremities: Trace edema. Neurologic: Alert. No focality. Laboratory Data: WBC of 6, H and H 11/33.6. Sodium 134, potassium 5.5, bicarb 25, BUN 66, creatinin e 8.6, calcium 6.9, magnesium 2.8, albumin 3.3, corrected calcium is 7.4. Chest x-ray; cardiomegaly with congestion. CT abdomen and chest showing severe minimal displaced left lateral inferior rib fra cture, 13 mm non classify pulmonary nodules. Cirrhotic change. Assessment And Plan: 1.End-stage renal disease with hyperkalemia and over volume. We will arrange for the patient to hav e dialysis today. We will dialyze the patient on low-potassium bath and high calcium bath given the hypocalcemia and hyperkalemia and we will monitor the patient. 2.Hypertension. Keep holding blood pressure medication. We will try to utilize the blood pressure for more ultrafiltration. 3.Anemia of chronic kidney disease. I do not see the need for any DEXTER for the time being as hemoglo bin is 11. 4.Hyperkalemia. The patient is going to be dialyzed on low-potassium bath. 5.Hypocalcemia, possible secondary to hyperparathyroidism. I am going to send for PTH, vitamin D. The patient is going to be dialyzed on high calcium bath and we will monitor. No need for supplement for the time being except I am going to start the patient on oral calcium carbonate and calcitriol. We will follow up lab. 6.Fall and rib fracture as by primary. 7.Diabetes as by primary. 8.Renal artery stenosis. The patient is going to need workup as outpatient. The patient was schedu led for angioplasty. The patient still need to make it to the vascular surgeon. COURTNEY Voice ID: [id number] Report ID: [id number]
--- NOTE | 2020-08-29 15:08 | P.DS ---
Admission Date: 08/28/20 Discharge Date: 08/29/20 Primary Care Provider: Dr. Montoya; Nephrology-Dr. Rand Disposition: ROUTINE DISCHARGE Discharge Condition: GOOD Reason for Admission: Shortness of breath Consultations: Nephrology-Dr. Rand Procedures: CT Scan: FINDINGS: 12-13 mm noncalcified pulmonary nodule has developed in the left upp er lobe since 2019 comparative study. A few small adjacent nodules are also present. .Trace right pleural effusion.Mildly enlarged lymph nodes are seen in the mediastinum, including AP window measuring 13 mm and pretracheal space measuring 12 mm. Liver size is prominent with mild liver contour nodularity suggesting mild cirrhosis. The spleen, adrenal glands are normal. [place] kidneys appear small in size. No gross acute pancreatic finding. No bowel obstruction, free air, free fluid or abscess. Prominent stool is present throughout the colon. Aortoiliac atherosclerosis. No pathologic lymphad enopathy in the abdomen or pelvis. Degenerative change with extensive postsurgical change of the lumbar spine. Minimally displaced fracture of the left lateral eighth, ninth and tenth rib suspected. IMPRESSION: Several minimally displaced left lateral inferior rib fractures without pneumothorax or evidence of solid organ injury. 12-13 mm noncalcified pulmonary nodule has developed in the left upper lobe since 2019. Recommend follow-up interval CT chest in 3 months or PET-CT follow- up. Liver size is prominent with mild cirrhotic pattern suspected. CXR: COMPARISON: Chest Single View dated 07/06/2020; Chest Single View dated 02/25/2020; Chest Single View dated 11/08/2019; Chest Single View dated 10/04/2019; CHEST SINGLE VIEW dated 11/14/2014; [place] Protocol dated 07/11/2020 FINDINGS: Portable technique limits examination quality. Mild interstitial pulmonary edema is noted. The heart is mildly to moderately enlarged. No displaced fractures. IMPRESSION: Mild CHF versus volume overload pattern. Medical Problem List: Dyspnea secondary to pulmonary edema with Elevated Troponin likely demand ischemia related to ESRD on HD MWF with noncompliance and acute on chronic diastolic CHF Recent fall with noted several minimally displaced left lateral inferior rib fractures without pneumothorax COPD Hypertension Anemia of chronic disease Hyperlipidemia 12-13 mm noncalcified pulmonary nodule new since 2019 Chronic cirrhosis Chronic pain Tobacco abuse Brief History of Present Illness: 65-year-old male with history of ESRD on HD MWF, hypertension, CHF presents emergency department for shortness of breath, lower extremity edema. Patient reports that he did not go to dialysis today and only partially completed dialysis on Monday. Patient also reports that he had a mechanical fall yesterday with injury to the left side/fractured ribs. Patient reports that he told his primary care doctor and robotics technician about the spasms in his hands and was told that they could be related to his electrolytes which why he came to the emergency department. Patient evaluated in the emergency department, labs significant for sodium 134 creatinine 8.06 GFR 7 glucose 227 calcium 6.7 magnesium 2.7 troponin 0.25 BNP greater than 175,000 albumin 3.3, EKG without acute changes, chest x-ray shows mild overload pattern, CT chest abdomen pelvis not contrast demonstrates several minimally displaced left lateral inferior rib fractures without pneumothorax or evidence of solid organ injury, 12-13 mm noncalcified pulmonary nodule has developed in left upper lobe since [address] in 3 months or PET, liver with prominent/chronic pattern. Patient was admitted for further evaluation and treatment. Hospital Course: Patient presented with dyspnea. Patient also of failed to get dialysis yesterday due to lack of transportation. Patient found to have pulmonary edema with elevated troponin likely ischemic demand related to end-stage renal disease and acute on chronic diastolic CHF. The patient was admitted for further evaluation and treatment. Patient received dialysis with improvement. Patient qualified for home oxygen. Patient was seen and evaluated by nephrology and cardiology. Cardiology recommends no intervention at this time. Cardiology recommends outpatient cardiac stress tests and echocardiogram. Patient should follow up with cardiology in one to this done. Patient will continue with oxygen to maintain sats above 93%. Currently on 2 L. Patient will continue with a 1500 cc per day fluid restriction and low-salt diet. Recommend to monitor his weight daily. If his weight increases by more than five nephrology for further recommendation. At discharge patient will continue with Bumex 2 mg daily. Patient will continue with dialysis every Monday, Monday and Monday. Transportation is to be arranged to prevent noncompliance. Further adjustment in medication can be done by nephrology. Patient will continue with his dialysis medications including ran fell a a hundred mg three pills three times a day, calcitriol 0.25 mcg every 48 hours and vitamin-D as directed. Recommend follow up with nephrology within 1 week. Patient reports recent fall. Several minimally displaced left lateral in fear rib fractures noted patient will continue with fall precautions. Patient may benefit with home health and physical therapy as an outpatient. This can be done with the help of his PCP or nephrology. Patient with CAD and hypertension. This appears stable. At discharge patient will continue with current medications-clonidine 0.2 mg 1 pill twice daily and Plavix 75 mg daily. Recommend to maintain blood pressure less than 130/80. Further adjustment in medication can be done by his PCP. If weight increases by more than 5 lb he is to contact nephrology or his PCP for recommendations. Patient with COPD. At discharge, he will continue with COPD medication-Symbicort 2 puffs twice daily and albuterol two puffs three times a day as needed for shortness of breath. He will continue with home oxygen to maintain sats above 93%. Recommend follow up with pulmonary as outpatient to further address. Patient with anemia chronic disease. This appears stable. This can be followed by nephrology as an outpatient. Patient with hyperlipidemia. At discharge patient will continue with pravastatin 40 mg daily. Patient with chronic pain. At discharge patient will continue Neurontin 300 mg at bedtime and [place] as directed. Patient with chronic cirrhosis. At discharge patient will continue with lactulose once daily. Continue with 1500 cc per day fluid restriction. Continue with Bumex as directed above. Recommend follow up with GI to further monitor and address. Patient with 12-13 mm noncalcified pulmonary nodule. This is new since 2019. Recommend to follow up with pulmonology for further recommendation. May need to repeat in 3-6 months to monitor stability. Patient with tobacco abuse. Tobacco cessation addressed in detail. Vital Signs/Physical Exam: Temp Pulse Resp BP Pulse Ox 97.9 F 48 L 95 H 137/65 18 L 08/29/20 08:59 08/29/20 09:38 08/29/20 12:37 08/29/20 09:38 08/29/20 12:37 General: Alert, In no apparent distress, Oriented x3, Cooperative HEENT: Atraumatic Neck: Supple Respiratory: Clear to auscultation bilaterally, Normal air movement Cardiovascular: Normal pulses, Regular rate/rhythm Gastrointestinal: Normal bowel sounds, No tenderness, No masses, No rebound, No guarding Musculoskeletal: No erythema, No tenderness, No warmth Integumentary: No tenderness/swelling Neurological: Normal speech, Normal strength at 5/5 x4 extr, Normal tone Laboratory Data at Discharge: WBC 6.00 K/uL (4.3-10.9) 08/29/20 04:37 Hgb 11.0 g/dL (13.6-17.9) L 08/29/20 04:37 Hct 33.6 % (39.6-49.0) L 08/29/20 04:37 Plt Count 123 K/uL (152-406) L 08/29/20 04:37 PT 12.5 SECONDS (9.5-12.5) 08/28/20 17:45 INR 1.09 08/28/20 17:45 Sodium 134 mmol/L (136-145) L 08/29/20 04:37 Potassium 5.5 mmol/L (3.5-5.1) H 08/29/20 04:37 BUN 66 mg/dL (7-18) H 08/29/20 04:37 Creatinine 8.64 mg/dL (0.55-1.3) H* 08/29/20 04:37 Glucose 108 mg/dL (74-106) H 08/29/20 04:37 Magnesium 2.8 mg/dL (1.8-2.4) H 08/29/20 04:37 Total Bilirubin 1.3 mg/dL (0.2-1.0) H 08/29/20 04:37 AST 38 U/L (15-37) H 08/29/20 04:37 ALT 34 U/L (12-78) 08/29/20 04:37 Alkaline Phosphatase 244 U/L (45-117) H 08/29/20 04:37 Troponin I 0.12 ng/mL (0.0-0.045) H 08/29/20 04:37 Triglycerides 65 mg/dL (<150) 08/29/20 04:37 Cholesterol 135 mg/dL (<200) 08/29/20 04:37 HDL Cholesterol 40 mg/dL (40-60) 08/29/20 04:37 Cholesterol/HDL Ratio 3.38 08/29/20 04:37 Home Medications: Bumetanide [Bumex*] 2 mg PO DAILY 11/09/19 Clonidine HCl [Catapres*] 0.2 mg PO BID 11/09/19 Gabapentin [Neurontin*] 300 mg PO BEDTIME 11/09/19 Hydrocodone Bit/Acetaminophen [Hydrocodon-Acetaminophn 10-325] 1 tab PO QIDP PRN 11/09/19 Pravastatin Sodium [Pravachol] 40 mg PO BEDTIME 11/09/19 Clopidogrel Bisulfate [Plavix*] 1 tab PO DAILY 02/25/20 Lactulose [Cephulac*] 20 ml PO DAILY 02/25/20 Albuterol Sulfate [Proair Hfa] 2 puff IH Q6H PRN #1 08/29/20 Budesonide/Formoterol Fumarate [Symbicort 160-4.5 Mcg Inhaler] 2 puff IH BID #1 hfa.aer.ad 08/29/20 Calcitrol [Rocaltrol*] 0.25 mcg PO Q48H #30 cap 08/29/20 Calcium Carbonate [Tums Regular*] 1,000 mg PO AC #120 tab 08/29/20 Nicotine [Nicoderm*] 14 mg TD DAILY #30 patch.td24 08/29/20 Sevelamer Carbonate [Renvela*] 3 tab PO TID 08/29/20 New Medications: Nicotine [Nicoderm*] 14 mg TD DAILY #30 patch.td24 Albuterol Sulfate [Proair Hfa] 2 puff IH Q6H PRN #1 PRN Reason: Shortness Of Breath Calcitrol [Rocaltrol*] 0.25 mcg PO Q48H #30 cap Budesonide/Formoterol Fumarate [Symbicort 160-4.5 Mcg Inhaler] 2 puff IH BID #1 hfa.aer.ad Calcium Carbonate [Tums Regular*] 1,000 mg PO AC #120 tab Physician Discharge Instructions: Patient presented with dyspnea. Patient also of failed to get dialysis yester day due to lack of transportation. Patient found to have pulmonary edema with elevated troponin likely ischemic demand related to end-stage renal disease and acute on chronic diastolic CHF. The patient was admitted for further evaluation and treatment. Patient received dialysis with improvement. Patient qualified for home oxygen. Patient was seen and evaluated by nephrology and cardiology. Cardiology recommends no intervention at this time. Cardiology recommends outpatient cardiac stress tests and echocardiogram. Patient should follow up with cardiology in one to this done. Patient will continue with oxygen to maintain sats above 93%. Currently on 2 L. Patient will continue with a 1500 cc per day fluid restriction and low-salt diet. Recommend to monitor his weight daily. If his weight increases by more than five nephrology for further recommendation. At discharge patient will continue with Bumex 2 mg daily. Patient will continue with dialysis every Monday, Monday and Monday. Transportation is to be arranged to prevent noncompliance. Further adjustment in medication can be done by nephrology. Patient will continue with his dialysis medications including ran fell a a hundred mg three pills three times a day, calcitriol 0.25 mcg every 48 hours and vitamin-D as directed. Recommend follow up with nephrology within 1 week. Patient reports recent fall. Several minimally displaced left lateral in fear rib fractures noted patient will continue with fall precautions. Patient may benefit with home health and physical therapy as an outpatient. This can be done with the help of his PCP or nephrology. Patient with CAD and hypertension. This appears stable. At discharge patient will continue with current medications-clonidine 0.2 mg 1 pill twice daily and P lavix 75 mg daily. Recommend to maintain blood pressure less than 130/80. Further adjustment in medication can be done by his PCP. If weight increases by more than 5 lb he is to contact nephrology or his PCP for recommendations. Patient with COPD. At discharge, he will continue with COPD medication-Symbicort 2 puffs twice daily and albuterol two puffs three times a day as needed for shortness of breath. He will continue with home oxygen to maintain sats above 93%. Recommend follow up with pulmonary as outpatient to further address. Patient with anemia chronic disease. This appears stable. This can be followed by nephrology as an outpatient. Patient with hyperlipidemia. At discharge patient will continue with pravastatin 40 mg daily. Patient with chronic pain. At discharge patient will continue Neurontin 300 mg at bedtime and [place] as directed. Patient with chronic cirrhosis. At discharge patient will continue with lactulose once daily. Continue with 1500 cc per day fluid restriction. Continue with Bumex as directed above. Recommend follow up with GI to further monitor and address. Patient with 12-13 mm noncalcified pulmonary nodule. This is new since 2019. Recommend to follow up with pulmonology for further recommendation. May need to repeat in 3-6 months to monitor stability. Patient with tobacco abuse. Tobacco cessation addressed in detail. Diet: Renal Activity: Fall precautions Followup: NONE,NONE [Primary Care Provider] - Time spent managing pt's care (in minutes): 55
[2020-08-29] MEDS ORDERED: SEVELAMER CARBONATE 800 MG TABLET PO SCH (17:00)
[2020-08-29 17:57] VITALS: TEMP 98.3
[2020-08-29 18:06] VITALS: BP 181/79
[2020-08-29] MEDS ORDERED: cloNIDine HCL 0.1 MG TAB PO SCH (21:00)
[2020-08-29] MEDS ORDERED: GABAPENTIN 300 MG CAP PO SCH (21:00)
[2020-08-29] MEDS ORDERED: ATORVASTATIN 10 MG TAB PO SCH (21:00)
[2020-08-30] MEDS ORDERED: BUMETANIDE 1 MG TABLET PO SCH (09:00)
[2020-08-30] MEDS ORDERED: CLOPIDOGREL 75 MG TABLET PO SCH (09:00)
[2020-08-30] MEDS ORDERED: LACTULOSE 20 GM/30 ML UCUP PO SCH (09:00)
--- NOTE | 2020-08-31 10:37 | CON ---
Date of Consultation: 08/28/2020 History Of Present Illness: Shortness of breath and fall. History Of Present Illness: Mr. Urbano is a 65-year-old patient, who has end-stage renal disease, on hemodialysis. He had missed 1 session. He has a history of diabetes, hypertension, dyslipidemia. Kareem castellanos came in with an episode of fall, hand injury, shortness of breath. He was found to have volume ove rload. Denied any nausea, vomiting, diaphoresis, PND, orthopnea, pedal edema, chest pain, or syncope . Denied any fever, chills, or cough. Past Medical History: As stated above. Allergies: NONE. Review of Systems: Negative. Social History: Negative. Family History: Noncontributory. Medications: At home include aspirin, Plavix, Bumex, clonidine, Cardura, Neurontin, Coreg, and Prava chol. Physical Examination: Vital Signs: Stable. He was afebrile. He was in a sinus rhythm. HEENT: Negative. Neck: Supple without any lymphadenopathy, JVD, thyromegaly, or bruit. Chest: Some rales at both bases. Cardiac: Regular rhythm and rate with S4 gallops. No murmurs or rubs. Abdomen: Benign. Extremities: 2+ edema. Pulses were present distally bilaterally. Neurologic: He was nonfocal. Skin: Dry and intact. Diagnostic Data: EKG showed left ventricular hypertrophy. Troponin was 0.12. BNP was 17,5000. Cre atinine is 8.6. Chest x-ray shows CHF. CT of the chest, abdomen, and pelvis showed a pulmonary nodu le that needs to be followed up in 6 months. Impression And Plan: 1.Acute diastolic congestive heart failure. 2.Renal failure, on hemodialysis. 3.Hypertension. 4.Dyslipidemia. 5.Diabetes. 6.Elevated troponin and BNP secondary to renal failure and congestive heart failure. 7.Left ventricular hypertrophy. 8.Pulmonary nodule that needs to be followed up. I agree with the patient's present regimen including his aspirin, Plavix, Bumex, clonidine, Cardura, Neurontin, Coreg, and Pravachol. I think he needs to have an outpatient Lexiscan eventually. I will make an arrangement for that. I think he needs to be dialyzed. I will continue to follow him. ALEJANDRO/TESSL Voice ID: [id number] Report ID: [id number]
--- NOTE | 2020-08-31 11:15 | PN ---
Date of Progress Note: 08/29/2020 Mr. Urbano is 65 with a history of hemodialysis, diabetes, hypertension, dyslipidemia. He came in wit h volume overload, congestive heart failure by x-ray, elevated troponin, BNP and creatinine. He had missed a session of hemodialysis. Yesterday, he was diuresed and received hemodialysis and this morn ing he is feeling much better. He still had a CT scan that showed a pulmonary nodule that need to be followed up in 6 months. He is not having any further chest pain. His vital signs are stable. He is afebrile. His chest is clear this morning, still have trace edema. Nevertheless, I am comfortable with him going home whenever i t is okay with Dr. Carreon. He will need an outpatient echocardiogram and Lexiscan. I will make arra ngements for that in the near future. ALEJANDRO/DHRUV Voice ID: [id number] Report ID: [id number]
== END 2020-08-29 18:25 | disposition home or self-care (01) ==
LOC: ER 13:06 → INTOOBSV 20:31 → ERHOLD 20:31 → 4TH 22:35
PROVIDERS: ADMIT Family Medicine; ATTEND Family Medicine
DX: I13.2 Hypertensive heart and chronic kidney disease with heart failure and with stage 5 chronic kidney disease, or end stage renal disease (principal); I50.33 Acute on chronic diastolic (congestive) heart failure; N18.6 End stage renal disease; Z99.2 Dependence on renal dialysis; E78.5 Hyperlipidemia, unspecified; E11.22 Type 2 diabetes mellitus with diabetic chronic kidney disease; R91.1 Solitary pulmonary nodule; S22.42XA Multiple fractures of ribs, left side, initial encounter for closed fracture; W19.XXXA Unspecified fall, initial encounter; J44.9 Chronic obstructive pulmonary disease, unspecified; D63.1 Anemia in chronic kidney disease; K74.60 Unspecified cirrhosis of liver; G89.29 Other chronic pain; Z91.15 Patient's noncompliance with renal dialysis; E11.40 Type 2 diabetes mellitus with diabetic neuropathy, unspecified; E11.51 Type 2 diabetes mellitus with diabetic peripheral angiopathy without gangrene; B19.20 Unspecified viral hepatitis C without hepatic coma; E87.5 Hyperkalemia; E83.51 Hypocalcemia; I70.1 Atherosclerosis of renal artery; F17.200 Nicotine dependence, unspecified, uncomplicated
CPT/HCPCS: 93005; 85025 ×2; 80048; 36415; 83735 ×2; 85610; 80061; 82947 ×4; 80076; 84443; 83036; 84484 ×3; 84439; 80053; 83880; 71250; 74176; 71045; 90935; 94010; 99285; J0360 ×3; J1644 ×2; J3010 ×2; J2270 ×5; G0378 ×3

== ENCOUNTER 2020-08-31 20:42 | Inpatient (IN) | payer OTHER ==
--- OUTSIDE RECORDS SUMMARY | 2020-08-31 20:46 | XMS REPORT | Continuity of Care Document ---
:1955 Author Organization [facility] t Address [address] [place] [address] Care Team Providers Name Role Phone Moiz Montoya MD Primary Care Physician Brian Vega MD Attending Clinician Jeannine CABALLERO Attending Clinician Kayode CABALLERO, Sira Attending Clinician Chetan Donohue MD Attending Clinician Trae BERNAL Attending Clinician MD JEANNINE Attending Clinician Unavailable Radiology Attending Clinician Unavailable Pob, Lab Main Attending Clinician Unavailable SALENA RUSSELL Attending Clinician Unavailable SWETHA PISANO Attending Clinician Unavailable LEANA KHALIL Attending Clinician Unavailable INGRIS DANIELSON Attending Clinician Unavailable ESMER KERN Attending Clinician Unavailable KAYODE Admitting Clinician Unavailable MD JEANNINE Admitting Clinician Unavailable THEODORE WEIR Admitting Clinician Unavailable Payers Payer Name Policy Type Policy Effective Expiration Source Number Date Date TEXANPLUSTEXANPLUS [id number] 2019 [place] [id number] 2020-Pr 00:00:00 M ethodist esentHMO [employer] NETWK [id number] [facility] - MEDICARE MGD - Medical CAREOPTUM NON-[facility] er MCR [id number] for all datesTransplants TEXANPLUSTEXANPLUS HMO [id number] [facility] [id number] 2015-Pr 00:00:00 - Medical esentMaps Contracted Cent er WELLCARE MEDICARE MGD [id number] [address] [facility] [facility] CAREWELLCARE 00:00:00 - Medical [id number] 2019-P C enter resent Problems Condition Condition [...] e Type 2 Type 2 Problem Active [facility] diabetes Diabetes -18 Family mellitus Mellitus 00:00: Practi c with with 00 e multiple Multiple complicati Complicati ons ons Chronic Chronic Problem Active [facility] hepatitis Hepatitis 03-12 Fami ly C [...] Allergy 1-26 in mouth, [facility] - 00:[facility]: [facility] Medical 00 okay with Center shrimp/cr awfish Family History Family Member Diagnosis Comments Start Date Stop Date Source Natural father Other [facility] Natural mother Dementia [facility] Social History Social Habit Start Date Stop Date Quantity Comments Source History of tobacco Cigarette Smoker [place] use [facility] Cigarettes smoked 2019-12-10 2019-12-10 [place] current (pack per 00:00:00 00:00:[address] day) - Reported Tobacco use and 2019-12-10 2019-12-10 Never used [place] exposure 00:00:00 00:00:00 [facility] Alcohol intake 2019-12-10 2019-12-10 Ex-drinker [place] 00:00:00 00:00:00 (finding) [facility] Alcohol Comment 2015-07-23 2015-07-23 Quit drinking [facility] - 00:00:00 00:00:00 2005; [facility] drinker Tobacco Comment 2015-03-31 2015-03-[address] [facility] [address] [facility] - 00:00:00 00:00:00 [facility] Sex Ass[birth year] At [birth year] [place] 00:00:00 00:00:00 [facility] Smoking Status Start Date Stop Date Source Light Tobacco Smoker [facility] Current every day 2019-12-10 00:00:00 [facility] smoker Former smoker 2018-06-05 00:00:00 2018-06-05 00:00:00 [facility] Medications Ordered Filled Start Stop Current Ordering [...] ston (CARDURA) 2 0-06 by mouth Meth michelel MG tablet 16:07: nightly. st 01 carvediloL [...] times a day. gabapentin 2019-03 Yes 100mg Q.[id number] Take 100 [facility] (NEURONTIN) 0-06 [id number] mg by Harriet virk 100 mg 16:07: 3D mouth 3 [...] [facility] - 10 gram/15 00:00: (30ML) BY Dc dical mL solution 00 MOUTH ONCE Ce nter A DAY NEEDED zolpidem 2019-0 Yes TAKE [address] [facility] (AMBIEN) 10 2-21 TABLET [facility] - mg tablet 00:00: ORALLY AT Med ical 00 BEDTIME Center NEEDED atorvastati 2018-0 Yes 20mg Take [address] [facility] (LIPITOR) 4-26 by mouth. Susie es - 20 MG 00:00: Medical tablet 00 Center hydrALAZINE 2016-0 Yes 50mg Q.[id number] Take [address] (APRESOLINE 2-06 [id number] tablets [facility] - ) 25 MG 00:00: [...] 210 Auryxia 210 No 2 TID Auryxia [facility] mg iron mg iron 210 mg Family tablet Take tablet Take iron P ractic 2 tablets 3 2 tablets 3 tablet e times a day times a day Take 2 by oral by oral tablets 3 route. route. times a day by oral route. carvedilol carvedilol No 1 BID carvedilol [facility] 6.25 mg 6.25 mg 6.25 mg Family tablet Take tablet Take tablet Practic 1 tablet 1 tablet Take 1 e twice a day twice a day tablet by oral by oral twice a route. route. day by oral route. clonidine clonidine No 1 BID clonidine [facility] HCl 0.2 mg HCl 0.2 mg HCl 0.2 mg Family tablet Take tablet Take tablet Practic 1 tablet 1 tablet Take 1 e twice a day twice a day tablet by oral by oral twice a route. route. day by oral route. gabapentin gabapentin No 1capsul TID gabapentin [facility] 100 mg 100 mg e(s) 100 mg Family capsule capsule capsule Practi c Take 1 Take 1 Take 1 e capsule 3 capsule 3 capsule 3 times a day times a day times a by oral by oral day by route. route. oral route. lactulose lactulose No 15mL Q1D lactulose [facility] 10 gram/15 10 gram/15 10 gram/15 Family mL (15 mL) mL (15 mL) mL (15 mL) Practic oral oral oral e solution solution solution Take 15 mL Take 15 mL Take 15 mL every day every day every day by oral by oral by oral route as route as route as directed. directed. directed. [place] 10 [place] 10 No 1 Q4H [place] 10 Milo tiffanie mg-325 mg mg-325 mg mg-325 mg Family tablet Take tablet Take tablet Practic 1 tablet 1 tablet Take 1 e every 4 every 4 tablet hours by hours by every 4 oral route oral route hours by as needed. as needed. oral route as needed. pravastatin pravastatin No 1 Q1D pravastati [facility] 40 mg 40 mg n 40 [...] 30 Sensipar 30 No 1 Q1D Sensipar [facility] mg tablet mg tablet 30 mg Fami ly Take 1 Take 1 tablet Practic tablet tablet Take 1 e every day every day tablet by oral by oral every day route. route. by oral route. sildenafil sildenafil No 1 Q1D sildenafil [facility] 100 mg 100 mg 100 mg Family tablet Take tablet Take tablet Practic 1 tablet 1 tablet Take 1 e every day every day tablet by oral by oral every day route. route. by oral route. tizanidine tizanidine No 1 Q6H tizanidine [facility] 4 mg tablet 4 mg tablet [...] quadrivalent quadrivalent PPD Test 2016-04-[address] [facility] Vital Signs Vital Name Observation Time Observation Value Comments Source Height 2019-09-03 66 [in_i] [facility] 00:[facility]00 Practice Height 2019-07-23 66 [in_i] [facility] 00:[facility]:00 Practice BMI (Body Mass 2019-07-23 25.8 kg/m2 [facility]amil y Index) 00:00:00 Practice Body Weight 2019-07-23 160 [lb_av] [facility] 00:00:00 Practice Systolic blood 2019-12-10 206 mm[Hg] TELECOM ANALYST Lisandro ahuja [place] pressure 14:40:00 aware [facility] Diastolic blood 2019-12-10 88 mm[Hg] TELECOM ANALYST Lisandro ahuja [place] pressure 14:40:00 aware [facility] Heart rate 2019-12-10 69 /min [place] 14:40:00 [facility] Body temperature 2019-12-10 37.11 Idalia [place] 12:15:24 [facility] Respiratory rate 2019-12-10 16 /min [place] 12:15:24 [facility] Oxygen saturation 2019-12-10 96 /min [place] in Arterial blood 12:15:24 [facility] by Pulse oximetry Body weight 2019-12-10 72.848 kg [place] 06:00:00 [facility] BMI 2019-12-10 25.92 kg/m2 [place] 06:00:00 [facility] Body height 2019-12-09 167.6 cm [place] 16:00:00 [facility] Procedures Procedure Date / Time Performing Clinician Source Performed ECG 12-LEAD 2019-12-10 14:01:00 Lisandro Romo [facility] TROPONIN 2019-12-10 12:50:00 Lisandro Romo [facility] BASIC METABOLIC PANEL 2019-12-10 05:33:00 Natalie Headley [facility] ESTIMATED GFR 2019-12-10 05:33:00 Natalie Headley [facility] HEMODIALYSIS 2019-12-09 20:17:14 Carlos EnriqueroumohSkyler Meth odist [place] < 1 HOUR 2019-12-09 19:26:47 JeannineMartita todd Meth odist HEPATITIS B SURFACE 2019-12-09 19:13:00 Skyler Rand [facility] ANTIGEN HEPATITIS B SURFACE AB, 2019-12-09 19:13:00 Skyler Rand [facility] QUANTITATIVE HEMODIALYSIS 2019-12-09 16:51:41 Skyler Rand Meth odist HEMODIALYSIS 2019-12-09 16:09:37 Skyler Rand Meth odist POC GLUCOSE 2019-12-09 16:02:00 Martita Corral Meth odist OR AN ELECTIVE 2019-12-09 13:56:58 Antonieta Lawrence [place] Harriet ethodist SUPRAGLOTTIC AIRWAY AORTOGRAPHY, POSSIBLE 2019-12-09 13:47:00 Jeannine Nazmachelle rosas [facility] ANGIOPLASTY POC GLUCOSE 2019-12-09 12:42:00 JeannineMartita Wei odist POC PANEL 2019-12-09 10:37:00 JeannineMartita odist COMPREHENSIVE METABOLIC 2019-12-09 10:32:00 Jeannine Nazethanharriet Rachel bailey [facility] PANEL TYPE AND SCREEN 2019-12-09 10:32:00 Nazario Wilson odist Behzad Christine ESTIMATED GFR 2019-12-09 10:32:00 JeannineMartita odist XR CHEST 2 VW 2019-12-05 13:38:59 JeannineMartita Wei odist ECG PRE/POST OP 2019-12-05 13:07:15 JeannineLiliana Nazario Carvajal odist PROTHROMBIN TIME WITH INR 2019-12-05 12:45:00 Jeannine Martita Junior chaparro [facility] PARTIAL THROMBOPLASTIN 2019-12-05 12:45:00 Jeannine Nazmachelle Rehman on [facility] TIME (PTT) COVID-19 QUALITATIVE 2019-12-05 12:37:00 JeannineMartita Nazario Schmid RT-PCR HC COMPLETE BLD COUNT 2019-12-05 12:36:00 Martita Corral [facility] W/AUTO DIFF HEMOGLOBIN A1C 2019-12-05 12:36:00 Nazario Wilson odist Behzad Christine SARS-COV2/RT-PCR ([facility] & 2019-10-04 09:58:[address] [facility] Center SARS-COV2/RT-PCR ([facility] & 2019-09-30 20:00:[address] [facility] Center Plan of Care Planned Activity Planned Date Details Comments Source Future Scheduled 2020-11-[address] [facility] - Test 00:00:00 (Season Ended) [code = Medic al Center INFLUENZA VACCINE (Season Ended)] Future Scheduled 2020-10-04 INFLUENZA VACCINE [place] [facility] Test 00:00:00 [code = INFLUENZA VACCINE] Future Scheduled 2020-03-[address] [facility] - Test 00:00:00 (12+) [code = [facility] Center DEPRESSION SCREENING (12+)] Future Scheduled 2019-03-[address] [facility] - Test 00:00:00 (procedure) [code = [facility] Center 21367564] Future Scheduled 2016-09-[address] [facility] - Test 00:00:00 measurement [facility] (procedure) [code = 02126666] Future Scheduled 2016-06-[address] [facility] - Test 00:00:00 [facility] colon (procedure) [code = 225258719] Future Scheduled 2015-03-[address] [facility] - Test 00:00:00 WELLNESS (YEAR 2 or Medical Center FIRST YEAR if no IPPE) [code = MEDICARE ANNUAL WELLNESS (YEAR 2 or FIRST YEAR if no IPPE)] Future Scheduled 2007-08-29 SHINGLES VACCINES ([address] [facility] - Test 00:00:00 of 2) [code = SHINGLES [facility] VACCINES (1 of 2)] Future Scheduled 2007-08-29 COLONOSCOPY SCREENING [place] [facility] Test 00:00:00 [code = COLONOSCOPY SCREENING] Future Scheduled 2007-08-29 SHINGLES VACCINES (#1) [place] [facility] Test 00:00:00 [code = SHINGLES VACCINES (#1)] Future Scheduled 1976 DTAP/TDAP/TD VACCINES [facility] Test 00:00:00 (1 - Tdap) [code = Medical C enter DTAP/TDAP/TD VACCINES (1 - Tdap)] Future Scheduled 1969 COVID-19 VACCINE (1) [facility] - Test 00:00:00 [code = COVID-[address] VACCINE (1)] Future Scheduled 1969 COVID-19 VACCINE (1) [facility] Test 00:00:00 [code = COVID-19 VACCINE (1)] Future Scheduled 1967-08-[address] DI[address] EYE EXAM [facility] - Test 00:00:00 [code = DIABETIC EYE Medical Center EXAM] Future Scheduled 1967-08-[address] [facility] - Test 00:00:00 examination Medical Center (regime/therapy) [code = 687437331] Future Scheduled 1967-08-29 Urine screening for [facility] - Test 00:00:00 protein (procedure) Medical Center [code = 681301009] Future Scheduled 1967-08-29 DIABETES: RETINAL EYE [place] [facility] Test 00:00:00 EXAM [code = DIABETES: RETINAL EYE EXAM] Future Scheduled 1967-08-29 DIABETIC FOOT EXAM [place] [facility] Test 00:00:00 [code = DIABETIC FOOT EXAM] Future Scheduled 1963-08-[address] [facility] - Test 00:00:00 0-64 YRS (1 of 1 - Medical C enter PPSV23) [code = PNEUMOCOCCAL VACCINE 0-64 YRS (1 of 1 - PPSV23)] Encounters Start End Encounter Admission Attending Care Care Encounter Source Date/Time Date/Time Type Type Clinicians Facility Department ID 2019-12-09 2019-12-10 Outpatient NATALIE HEADLEY [facility] [id number] [place] 00:00:00 00:00:00 276 Method i 2019-12-05 2019-12-05 Outpatient JEANNINE, [facility] [id number] [place] 00:00:00 00:00:00 UTTAM 188 Method i 2019-12-05 2019-12-05 Outpatient JEANNINE, [facility] [id number] [place] 00:00:00 00:00:00 UTTAM [address] 2019-10-10 2019-10-10 Hospital Radiology [facility] [id number] 12:34:44 23:59:00 Encounter [place] [id number] [place] [id number] [place] [id number] 2019-10-10 2019-10-10 Air Hammer Stripper Rodney Steen [facility] [id number] 12:38:05 12:53:05 Visit Lab Main [place] [id number] [place] [id number] leandro [id number] [facility] 2019-09-03 2019-09-03 Veronica VFP [place] - [id number] [place] 00:00:00 00:00:00 [facility] traci elkins, TELECOM ANALYST: Medical - Practi c [address]_[email or web address]_V@H_ e [facility], [place] [address], [place] [address] , Ph. 2019-07-23 2019-07-23 Veronica VFP [place] - [id number] [place] 00:00:00 00:00:00 [facility] traci elkins, TELECOM ANALYST: Medical - Practi c [email or web address]_V@H_ e [facility], [place] [address], [place] [address] , Ph. Results Test Description Test Time Test Comments Results Result Comments Source ECG 12 lead 2019-12-10 16:17:46 Test Item Value Reference Range Interpretation Comme nts Ventricular rate (test code = 253) 70 Atrial rate (test code = 255) 70 OR interval (test code = 266) 144 QRSD [...] Lateral leads- Nazario Methodist[facility] [place] < 1 [id number] 19:38:18Hm Interface, Radiology Results - 12/09/2019 7:41 PM CDTFormatting of this note might be di fferent from the original.EXAMINATION: [place] < 1 HOURCLINICAL HISTORY: None provided.IMPRESSION:1. Fluoroscopy was provided in the operating. I was not present during the procedure.2. Please refer to the operative report for findings.3. Total Dose: 114 fluoroscopic images. 27.1 minutes of fluoroscopy time.Nazario BlakeIzhnhjqndCpblhv7586-78-58 13:56:58WeAntonieta kingsley CRNA 12/09/2019 1:57 PMAirway Date/Time: 12/09/2019 1:57 PMPerformed by: Antonieta Lawrence CRNAAuthorized by: Sameer Donohue MD Location: ORUrgency: ElectiveDifficult Airway: No Anesthesiologist: Sameer Donohue MDResident/SLAB CONDITIONER SUPERVISOR/AA: Antonieta Lawrence CRNAPerformed by: resident/SLAB CONDITIONER SUPERVISOR/AAPreoxygenated with 100% O2: Yes C-spine Precautions Maintained Throughout: Yes Mask Ventilation: Not attemptedFinal Airway Type: Supraglottic airwayFinal LMA: I-GelLMA Size: 4Number of Attempts at Approach: 1[facility] MethodistEC[facility] Pre/Post [id number] 00:44:14 Test Item Value Reference Range Interpretation [...] Evelyn (2056) on 12/06/2019 12:44:11 AM Nazario ShahXjdjyjgofVTEN-KjB-1 (COVID-19) RNA [Presence] in Respiratory specimen by DELMI with probe [id number] 21:13:34 Test Item Value Reference Range Interpretation Comments SARS-CoV-2 (COVID-19) RNA Not detected Not-Detected [Presence] in Respiratory specimen by DELMI with probe detection (test code = 77000-9) XR Chest 2 [id number] 16:56:18Hm Interface, Radiology Results - 12/05/2019 4:59 PM CDT EXAMINATION: XR CHEST 2 VWCLINICAL HISTORY: Z01.818 Encounter for other preprocedural examination, PRE OPCOMPARISON: None.IMPRESSION:Heart and mediastinum: Cardiomediastinal silhouette is prominent. Atherosclerotic calcifications of the aortic arch.Lungs and pleura: There is no focal airspace disease, pleural effusion or pneumothorax.Bones: No acute abnormality.Spinal cord stimulator device seen overlying the thoracic spine.[facility]-[id number] and approved by chief radiology/fellow: Joseph Malik M.D.I, Daniel Abbott, personally reviewed the images and resident's/fellow's findings and agree with the final report.Nazario ShahARS-CoV2/RT-PCR ([facility] & Ref Labs) 2019-10-04 22:28:00 Test Item Value Reference Range Interpretation Comments SARS-COV2/RT-PCR Negative Not Detected, (test code = Negative, See 39028-9) external report for linked test SARS-COV-2 [facility] SUZI PERFORMING LAB (test code = 44123-6) STEVEN (test code = Negative result for [...] of the Act. Fact Sheet for Healthcare Providers:https://www.[employer]/sites/default/f eunice/product/documents/F act_Sheet_HC_Providers_L png_WZJW-EcZ-8.pdf Fact Sheet for Healthcare Patients:https://www.YOUnite/sites/default/fi les/product/documents/Fa ct_Sheet_Patients_Lyra_S ARS-CoV-2.pdf Performing Laboratory:[place] [address] [address] Chandra[address]ARS-COV2/RT-PCR ([facility] REF LABS)2019-10-04 22:28:00 Test Item Value Reference Range Interpretation Comments SARS-COV2/RT-PCR (test Negative Not Detected, Negative, code = 0411053) See external report for linked test SARS-COV-2 PERFORMING LAB [facility] SUZI (test code = 1011947) Negative result for this test determines that [...] 564(g) of the Act.Fact Sheet for Healthcare Providers:https://www.[employer]/sites/default/files/product/documents/Fact_Shee q_JE_Gdbfnwqax_Idux_PZUO-GbY-0.pdfFact Sheet for Healthcare Patients:https://www.[employer]/sites/default/files/product/ documents/Knif_Ivdaw_Uxrotabc_Qgzr_IAJO-JhU-6.pdfPerforming Laboratory:[facility].[place], [place] [address]NGHB-DKJ3/RT-PCR ([facility] & REF LABS)2019-10-01 04:23:00 Test Item Value Reference Range Interpretation Comments SARS-COV2/RT-PCR (test code Negative Not Detected, Negative, = 5908123) See external report for linked test SARS-COV-2 PERFORMING LAB [facility] (test code = 3439586) Negative results do not preclude SARS-CoV-2 infection [...] of the Act.Fact Sheet for Healthcare Pro viders:https://www.Sumavision/Documents/Xpert%20Xpress%20SARS%20CoV-2/Fact%20Sh eets/302-3802%85QOGJ-BVF-7%20HEALTHCARE%20PROVIDERS%20FACT%20SHEET.pdfFact Sheet for Healthcare Patients:https://www.Dropmysite/Documents/Xpert%20Xpress%20SARS%20CoV-2/Fact%20Sheets/302-3801%20SARS-COV -2%20PATIENT%20FACT%20SHEET.pdfPerforming Laboratory:[place] [address] [address] [place], [place] [address]CBLULJK IMAGING, MULTI, PHARM, SPECT 2019-02-21 15:54:00Referring: Dr. Schultz [facility] HospitalFINAL REPORT PROCEDURE: MYOCARDIAL PERFUSION SPECT IMAGING (Rest/Stress)CPT CODE: 87898 INDICATION: Renal transplant evaluation, hypertension, shortness of [...] MDReport Verified Date/Time: 02/21/2019 15:54:30 Reading Location: [address] Reading Room [id number] 17:11:00 Test Item Value Reference Range Interpretation Comments PROSTATE SPECIFIC ANTIGEN (BEAKER) 0.8 ng/mL 0.0-4.0 (test code = 844) HEPATITIS B SURFACE [id number] 17:11:00 Test Item Value Reference Range Interpretation Comments HEPATITIS B SURFACE ANTIBODY 612.9 mIU/mL <8.0 H (BEAKER) (test code = 647) PROTHROMBIN TIME/[id number] 14:59:00 Test Item Value Reference Range Interpretation Comments PROTIME (BEAKER) (test code = 15.6 seconds 11.7-14.7 H 759) INR (BEAKER) (test code = 370) 1.2 <=5.9 RECOMMENDED COUMADIN/WARFARIN INR THERAPY RANGESSTANDARD DOSE: 2.0 - 3.0 Includes: PROPHYLAXIS forvenous thrombosis, systemic embolization; TREATMENT for venous thrombosis and/or pulmonary embolus.HIGH RISK: Target INR is 2.5-3.5 for patients with mechanical heart valves.BASIC METABOLIC [id number] 14:58:00 Test Item Value Reference Range Interpretation [...] APPLICABLE FOR DIALYSIS PATIEN TS. HEPATIC FUNCTION [id number] 14:53:00 Test Item Value Reference Range Interpretation [...] 6-55 347) CBC W/PLT COUNT & AUTO [id number] 14:19:00 Test Item Value Reference Range Interpretation [...] = 2801) FLOW PRA CLASS I AND [id number] 12:02:00 Test Item Value Reference Range Interpretation Comments DATE OF SERUM (BEAKER) 9110312 (test code = 2289) SERUM # (BEAKER) (test 830184 code = 6790) FLOW PRA CLASS I AND II See Scanned Report (test code = 2421) HEPATITIS B SURFACE [id number] 13:18:00 Test Item Value Reference Range Interpretation Comments HEPATITIS B SURFACE ANTIBODY < mIU/mL <8.0 (BEAKER) (test code = 647) [id number] 13:08:00 Test Item Value Reference Range Interpretation Comments PROSTATE SPECIFIC ANTIGEN (BEAKER) 0.9 ng/mL 0.0-4.0 (test code = 844) FLOW PRA CLASS I AND [id number] 16:00:00 Test Item Value Reference Range Interpretation Comments DATE OF SERUM (BEAKER) 6040312 (test code = 2289) SERUM # (BEAKER) (test 10290705 code = 2290) FLOW PRA CLASS I AND II See Scanned Report (test code = 2421) BASIC METABOLIC [id number] 15:51:00 Test Item Value Reference Range Interpretation [...] APPLICABLE FOR DIALYSIS PATIEN TS. HEPATIC FUNCTION [id number] 15:48:00 Test Item Value Reference Range Interpretation [...] 6-55 347) CBC W/PLT COUNT & AUTO [id number] 15:11:00 Test Item Value Reference Range Interpretation [...] (test code = 417) 0.00AFB CULTURE + [id number] 19:58:00 Test Item Value Reference Range Interpretation Comments CULTURE (BEAKER) (test No acid-fast bacilli code = 1095) isolated in 42 days AFB SMEAR (BEAKER) No acid fast bacilli (test code = 994) seen AFB CULTURE + [id number] 19:58:00 Test Item Value Reference Range Interpretation Comments CULTURE (BEAKER) (test No acid-fast bacilli code = 1095) isolated in 42 days AFB SMEAR (BEAKER) No acid fast bacilli (test code = 994) seen AFB CULTURE + [id number] 18:21:00 Test Item Value Reference Range Interpretation Comments CULTURE (BEAKER) (test No acid-fast bacilli code = 1095) isolated in 42 days AFB SMEAR (BEAKER) No acid fast bacilli (test code = 994) seen POCT-GLUCOSE [id number] 10:30:00 Test Item Value Reference Range Interpretation Comments POC-GLUCOSE METER 468 mg/dL 70-110 HH TESTED AT [facility] 6720 ([facility]) (test code = JANICE LANGE ID 1538) [address] CREATINE KINASE (CK), TOTAL AND [id number] 08:31:00 Test Item Value Reference Range Interpretation Comments CREATINE KINASE TOTAL (BEAKER) 42 U/L 29-200 (test code = 380) CREATINE KINASE-MB (BEAKER) (test 2.3 ng/mL 0.0-6.6 code = 750) CREATINE KINASE-MB INDEX (BEAKER) 5.5 % (test code = 395) Effective 01/21/2014: CK-MB Reference Range ChangeNew: 0.0-6.6 Previous: 0.0-4.9CK-MB Reference Range:<6.7 Normal6.7-10.0 Borderline>10.0 AbnormalTROPONIN [id number] 08:31:00 Test Item Value Reference Range Interpretation [...] acute neurological disease, and persistent tachyarrhythmia.BASIC METABOLIC [id number] 08:27:00 Test Item Value Reference Range Interpretation [...] S NOT APPLICABLE FOR DIALYSIS PATIEN TS. [id number] 08:24:00 Test Item Value Reference Range Interpretation Comments MAGNESIUM (BEAKER) (test code = 2.4 mg/dL 1.6-2.6 627) CBC W/PLT COUNT & AUTO [id number] 08:17:00 Test Item Value Reference Range Interpretation [...]
[2020-08-31 22:51] LABS: Arterial Blood Carboxyhemoglob 1.3 % (0-1.5); Blood Gas Oxyhemoglobin 95.7 % (94-97); Blood O2 Saturation 98.3 % (92-98.5)
[2020-08-31 23:00] LABS: Protime INR 1.28
[2020-08-31 23:02] LABS: Absolute Lymphocytes (CBC) 0.5 K/uL (0.7-4.9); Basophils % 0.3 % (0-1.3); Hematocrit 31.2 % (39.6-49.0); Lymphocytes % 6.2 % (15.3-44.8); MPV 9.3 fL (7.6-11.3); RBC Red Blood Cell Count 3.28 M/uL (4.33-5.43)
[2020-08-31 23:35] LABS: ALT/SGPT 23 U/L (12-78); AST/SGOT 28 U/L (15-37); Albumin 3.3 g/dL (3.4-5.0); Alkaline Phosphatase 237 U/L (45-117); BUN Blood Urea Nitrogen 73 mg/dL (7-18); Bicarbonate 21 mmol/L (21-32); Bilirubin Direct 1.5 mg/dL (0-0.2); Glucose Level 216 mg/dL (74-106); Magnesium 2.6 mg/dL (1.8-2.4); NT PRO-BNP > 175000 pg/mL (<125); Potassium 4.6 mmol/L (3.5-5.1); Protein, Total 7.6 g/dL (6.4-8.2); Sodium Level 134 mmol/L (136-145); Troponin (Emerg Dept Use Only) 0.16 ng/mL (0.0-0.045)
[2020-09-01 00:11] LABS: Blood Morphology Comment NOT SEEN (NOT SEEN); Platelet Estimate ADEQ
--- NOTE | 2020-09-01 00:40 | EDPHYS ---
Physician Documentation [facility] Name: Alexis Urbano Age: 65 yrs Sex: Male : 1955 Arrival Date: 08/31/2020 Time: 20:56 Bed 6 Private MD: ED Physician Torrey Storey HPI: 08/31 22:27 This 65 yrs old Male presents to ER via Wheelchair with complaints of pkl Breathing Difficulty. 22:27 The patient has shortness of breath at rest. Onset: The symptoms/episode began/occurred pkl last night. Associated signs and symptoms: Pertinent positives: chest pain. Patient fell 3 days ago and sustained several minimally displaced left lateral inferior rib fractures. Historical: - Allergies: 21:10 No Known Allergies; em - PMHx: 21:10 COPD; Diabetes - NIDDM; Dialysis; M,W,F; ESRD; GERD; High Cholesterol; Hypertension; em - PSHx: 21:10 Cage in back placed in 06; em - Immunization history:: Adult Immunizations up to date, Client reports receiving the 2nd dose of the Covid vaccine. - Social history:: Smoking status: Patient reports the use of cigarette tobacco products, smokes one-half pack cigarettes per day. ROS: 22:27 Eyes: Negative for injury, pain, redness, and discharge, ENT: Negative for injury, pkl pain, and discharge, Neck: Negative for injury, pain, and swelling. 22:27 Cardiovascular: Positive for chest pain. 22:27 Respiratory: Positive for cough, with no reported sputum, shortness of breath. 22:27 Abdomen/GI: Negative for abdominal pain, nausea, vomiting, and diarrhea. 22:27 Back: Negative for acute changes. 22:27 : Negative for urinary symptoms. 22:27 MS/extremity: Negative for acute changes. 22:27 Skin: Negative for rash. 22:27 Neuro: Negative for altered mental status, loss of consciousness. Exam: 22:27 Head/Face: Normocephalic, atraumatic. Eyes: Pupils equal round and reactive to light, pkl extra-ocular motions intact. Lids and lashes normal. Conjunctiva and sclera are non-icteric and not injected. Cornea within normal limits. Periorbital areas with no swelling, redness, or edema. ENT: Nares patent. No nasal discharge, no septal abnormalities noted. Tympanic membranes are normal and external auditory canals are clear. Oropharynx with no redness, swelling, or masses, exudates, or evidence of obstruction, uvula midline. Mucous membranes moist. Neck: Trachea midline, no thyromegaly or masses palpated, and no cervical lymphadenopathy. Supple, full range of motion without nuchal rigidity, or vertebral point tenderness. No Meningismus. Chest/axilla: Normal chest wall appearance and motion. Nontender with no deformity. No lesions are appreciated. 22:27 Cardiovascular: Rate: normal, Rhythm: regular. 22:27 Respiratory: mild respiratory distress is noted, Respirations: labored breathing, Breath sounds: rales, that are mild, are scattered. 22:27 Abdomen/GI: Exam negative for acute changes. 22:27 Back: Exam negative for acute changes. 22:27 : Exam negative for acute changes. 22:27 Musculoskeletal/extremity: Exam is negative for acute changes. 22:27 Skin: Exam negative for rash. 22:27 Neuro: Orientation: is normal, Mentation: is normal, Cranial nerves: grossly normal, Motor: is normal. Vital Signs: 21:07 BP 149 / 59; Pulse 54; Resp 18; Temp 98.6; Pulse Ox 99% on R/A; Weight 68.04 kg; Height em 5 ft. 6 in. (167.64 cm); Pain 8/10; 23:08 BP 146 / 56; Pulse 55; Resp 21 S; Pulse Ox 96% ; ad5 23:56 BP 133 / 98; Pulse 55; Resp 22 S; Pulse Ox 99% ; ad5 21:07 Body Mass Index 24.21 (68.04 kg, 167.64 cm) em MDM: 21:58 Patient medically screened. pkl 09/01 00:35 Data reviewed: vital signs, nurses notes, lab test result(s), EKG, radiologic studies, pkl CT scan, plain films. ED course: Talked to Mark ROSA ) Admit to Dr. Mix. 08/31 22:03 Order name: Basic Metabolic Panel pkl 08/31 22:03 Order name: CBC with Diff; Complete Time: 00:22 pkl 08/31 22:03 Order name: LFT's; Complete Time: 00:22 pkl 08/31 22:03 Order name: Magnesium; Complete Time: 00:22 pkl 08/31 22:03 Order name: NT PRO-BNP; Complete Time: 00:22 pkl 08/31 22:03 Order name: PT-INR; Complete Time: 00:22 pkl 08/31 22:03 Order name: Troponin (emerg Dept Use Only); Complete Time: 00:22 pkl 08/31 22:05 Order name: Blood Culture Adult (2) pkl 08/31 22:05 Order name: Lactate; Complete Time: 00:22 pkl 08/31 22:05 Order name: Procalcitonin; Complete Time: 00:22 pkl 08/31 22:07 Order name: Basic Metabolic Panel; Complete Time: 00:22 EDMS 08/31 22:07 Order name: ABG; Complete Time: 00: pkl 08/31 23:04 Order name: Manual Differential; Complete Time: 00:22 EDMS 08/31 21:50 Order name: XRAY Chest (1 view) 08/31 22:03 Order name: EKG; Complete Time: 22:07 pk 08/31 22:03 Order name: Cardiac monitoring; Complete Time: 22:31 pkl 08/31 22:03 Order name: EKG - Nurse/Tech; Complete Time: 22:31 pkl 08/31 22:03 Order name: IV Saline Lock; Complete Time: 22:37 pkl 08/31 22:03 Order name: Labs collected and sent; Complete Time: 22:37 pkl 08/31 22:03 Order name: O2 Per Protocol; Complete Time: 22:37 pkl 08/31 22:03 Order name: O2 Sat Monitoring; Complete Time: 22:37 pkl 08/31 22:07 Order name: CT Chest Wo Con pkl Administered Medications: 01:02 Drug: morphine 4 mg Route: IVP; Site: right antecubital; ea 01:03 Drug: Zofran (Ondansetron) 4 mg Route: IVP; Site: right antecubital; ea Disposition: 09/01/20 00:40 Hospitalization ordered by Maycol Mix for Inpatient Admission. Diagnosis is Acute dyspnea. Multifocal pneuminia within the right middle lobe and upper lobes. Chronic renal disease. Multiple left rib fractures. S/P Fall. Missed dialysis. - Bed requested for Telemetry/MedSurg (Inpatient). - Status is Inpatient Admission. ea - Condition is Stable. - Problem is new. - Symptoms are unchanged. Signatures: Dispatcher [employer] [facility] Torrey Storey MD MD pkl Pradip Crowell, RN RN Adeline Rosas RN RN ea Corrections: (The following items were deleted from the chart) 00:06 08/31 22:07 CORONAVIRUS+MR.LAB.BRZ ordered. [facility] 09/01 00:58 00:40 Hospitalization Ordered by Maycol Mix for Inpatient Admission. Preliminary ea diagnosis is Acute dyspnea. Multifocal pneuminia within the right middle lobe and upper lobes. Chronic renal disease. Multiple left rib fractures. S/P Fall. Missed dialysis. Bed requested for Telemetry/MedSurg (Inpatient). Status is Inpatient Admission. Condition is Stable. Problem is new. Symptoms are unchanged. pkl 01:03 00:58 09/01/2020 00:40 Hospitalization Ordered by Maycol Mix for Inpatient ea Admission. Preliminary diagnosis is Acute dyspnea. Multifocal pneuminia within the right middle lobe and upper lobes. Chronic renal disease. Multiple left rib fractures. S/P Fall. Missed dialysis. Bed requested for Telemetry/MedSurg (Inpatient). Status is Inpatient Admission. Condition is Stable. Problem is new. Symptoms are unchanged. ea
--- NOTE | 2020-09-01 00:40 | ER ---
Nurse's Notes [facility] Name: Alexis Urbano Age: 65 yrs Sex: Male : 1955 Arrival Date: 08/31/2020 Time: 20:56 Bed 6 Private MD: Diagnosis: Acute dyspnea. Multifocal pneuminia within the right middle lobe and upper lobes. Chronic renal disease. Multiple left rib fractures. S/P Fall. Missed dialysis Presentation: 08/31 21:07 Chief complaint: Patient states: cough, subjective fever, and shortness of breath that em started last night, reports chest pain. Coronavirus screen: Client denies travel out of the [place] in the last 14 days. Ebola Screen: Patient negative for fever greater than or equal to 101.5 degrees Fahrenheit, and additional compatible Ebola Virus Disease symptoms Patient denies exposure to infectious person. Patient denies travel to an Ebola-affected area in the 21 days before illness onset. No symptoms or risks identified at this time. Initial Sepsis Screen: Does the patient meet any 2 criteria? No. Patient's initial sepsis screen is negative. Does the patient have a suspected source of infection? No. Patient's initial sepsis screen is negative. Risk Assessment: Do you want to hurt yourself or someone else? Patient reports no desire to harm self or others. Onset of symptoms was August 31, 2020. 21:07 Method Of Arrival: Wheelchair em 21:07 Acuity: JOEL 3 em Triage Assessment: 22:38 General: Appears uncomfortable, Behavior is appropriate for age. Pain: Denies pain. ea Neuro: Level of Consciousness is awake, alert, obeys commands, Oriented to person, place, time. Respiratory: Reports shortness of breath Onset: The symptoms/episode began/occurred yesterday, the patient has mild shortness of breath. Derm: Skin is jaundiced. Historical: - Allergies: 21:10 No Known Allergies; em - PMHx: 21:10 COPD; Diabetes - NIDDM; Dialysis; M,W,F; ESRD; GERD; High Cholesterol; Hypertension; em - PSHx: 21:10 Cage in back placed in 06; em - Immunization history:: Adult Immunizations up to date, Client reports receiving the 2nd dose of the Covid vaccine. - Social history:: Smoking status: Patient reports the use of cigarette tobacco products, smokes one-half pack cigarettes per day. Screenin:37 Abuse screen: Denies threats or abuse. Nutritional screening: No deficits noted. ea Tuberculosis screening: No symptoms or risk factors identified. Fall Risk IV access (20 points). Assessment: 22:38 Reassessment: see triage assessment. ea 23:55 Reassessment: Patient appears in no apparent distress at this time. Patient and/or ad5 family updated on plan of care and expected duration. Pain level reassessed. Patient is alert, oriented x 3, equal unlabored respirations, skin warm/dry/pink. Vital Signs: 21:07 BP 149 / 59; Pulse 54; Resp 18; Temp 98.6; Pulse Ox 99% on R/A; Weight 68.04 kg; Height em 5 ft. 6 in. (167.64 cm); Pain 8/10; 23:08 BP 146 / 56; Pulse 55; Resp 21 S; Pulse Ox 96% ; ad5 23:56 BP 133 / 98; Pulse 55; Resp 22 S; Pulse Ox 99% ; ad5 21:07 Body Mass Index 24.21 (68.04 kg, 167.64 cm) em ED Course: 20:56 Patient arrived in ED. cf2 21:09 Triage completed. em 21:10 Arm band placed on. em 21:38 Nico Siddiqui is Primary Nurse. ad5 21:58 Torrey Storey MD is Attending Physician. pkl 22:37 Inserted saline lock: 22 gauge in right antecubital area, using aseptic technique. ea Blood collected. 22:38 Patient has correct armband on for positive identification. Bed in low position. Call ea light in reach. Side rails up X2. potline monitor on. Pulse ox on. NIBP on. 22:50 XRAY Chest (1 view) In Process Unspecified. EDMS 23:08 CT Chest Wo Con Sent. ad5 23:19 CT Chest Wo Con In Process Unspecified. EDMS 09/01 00:36 Maycol Mix is Hospitalizing Provider. pkl Administered Medications: 01:02 Drug: morphine 4 mg Route: IVP; Site: right antecubital; ea 01:03 Drug: Zofran (Ondansetron) 4 mg Route: IVP; Site: right antecubital; ea Outcome: 00:40 Decision to Hospitalize by Provider. pkl 00:59 Admitted to Med/surg ovidio 00:59 Condition: stable 00:59 Instructed on the need for admit. 01:03 Patient left the ED. ovidio Signatures: Dispatcher [employer] Torrey Casillas MD MD pkl Munoz, Edgar, RN RN Adeline Burks RN RN Samy Olivares 2 Nico Siddiqui [facility]
[2020-09-01] MEDS ORDERED: MORPHINE 4 MG/ML SYR ONE (01:22)
[2020-09-01] MEDS ORDERED: ONDANSETRON 4 MG/2 ML VIAL ONE (01:22)
[2020-09-01] MEDS ORDERED: CEFTRIAXONE 1 GM/NS 50 ML 1 GM/50 ML BAG IV SCH (03:00)
[2020-09-01] MEDS ORDERED: ONDANSETRON 4 MG/2 ML VIAL IV PRN (03:00)
[2020-09-01] MEDS ORDERED: AZITHROMYCIN IV 500 MG in NA CHLORIDE 0.9% 250 ML IVPB SCH (03:00)
[2020-09-01] MEDS ORDERED: ACETAMINOPHEN 500 MG TAB PO PRN (03:00)
[2020-09-01] MEDS ORDERED: CEFTRIAXONE/SWI 1gm 1 GM/10 ML SYR IVP SCH (04:00)
[2020-09-01] MEDS ORDERED: AZITHROMYCIN 500 MG INJ IVPB ONE (04:11)
[2020-09-01] MEDS ORDERED: CEFTRIAXONE 1000 MG/VIAL ONE (04:23)
[2020-09-01] MEDS ORDERED: NA CHLORIDE 0.9% 100 ML ONE (04:23)
[2020-09-01] MEDS: BENZONATATE 100 MG CAP PO PRN ×3 (04:23→22:04)
[2020-09-01] MEDS ORDERED: NA CHLORIDE 0.9% 250 ML ONE ×2 (04:24→23:13)
[2020-09-01] MEDS: MORPHINE 2 MG/ML SYR IV PRN ×3 (04:28→17:33)
[2020-09-01 04:38] LABS: Absolute Lymphocytes (CBC) 0.7 K/uL (0.7-4.9); Basophils % 0.6 % (0-1.3); Hematocrit 31.6 % (39.6-49.0); Lymphocytes % 7.3 % (15.3-44.8); MPV 9.7 fL (7.6-11.3); RBC Red Blood Cell Count 3.29 M/uL (4.33-5.43)
--- NOTE | 2020-09-01 04:55 | P.HP ---
Certification for Inpatient Patient admitted to: Inpatient With expected LOS: >2 Midnights Patient will require the following post-hospital care: None Practitioner: I am a practitioner with admitting privileges, knowledge of patient current condition, hospital course, and medical plan of care. Services: Services provided to patient in accordance with Admission requirements found in Title 42 Section 412.3 of the Code of Federal Regulations Patient History Date of Service: 09/01/20 Reason for admission: pneumonia History of Present Illness: Mr. Urbano is a 65 yo M with COPD on 2L Home O2, ESRD on HD MWF, CHF, AoCD, HLD, HTN, cirrhosis and chornic pain here today with cough, SOB, and BOSE for the past 5 days. He reports cough productive of green sputum, wheezing, pleurtic pain, night sweats, chills and nausea. Denies vomiting, hemoptysis. He says he missed dialysis today. Glu 216. Trop 0.16. Tbili 2, Dbili 1.5. Procal 1.13. Pneumonia on CT scan. Allergies No Known Drug Allergies Allergy (Mild, Verified 02/25/20 07:41) Unknown Home Medications: Bumetanide [Bumex*] 2 mg PO DAILY 11/09/19 Clonidine HCl [Catapres*] 0.2 mg PO BID 11/09/19 Gabapentin [Neurontin*] 300 mg PO BEDTIME 11/09/19 Hydrocodone Bit/Acetaminophen [Hydrocodon-Acetaminophn 10-325] 1 tab PO QIDP PRN 11/09/19 Pravastatin Sodium [Pravachol] 40 mg PO BEDTIME 11/09/19 Clopidogrel Bisulfate [Plavix*] 1 tab PO DAILY 02/25/20 Lactulose [Cephulac*] 20 ml PO DAILY 02/25/20 Albuterol Sulfate [Proair Hfa] 2 puff IH Q6H PRN #1 08/29/20 Budesonide/Formoterol Fumarate [Symbicort 160-4.5 Mcg Inhaler] 2 puff IH BID #1 hfa.aer.ad 08/29/20 Calcitrol [Rocaltrol*] 0.25 mcg PO Q48H #30 cap 08/29/20 Calcium Carbonate [Tums Regular*] 1,000 mg PO AC #120 tab 08/29/20 Nicotine [Nicoderm*] 14 mg TD DAILY #30 patch.td24 08/29/20 Sevelamer Carbonate [Renvela*] 3 tab PO TID 08/29/20 - Past Medical/Surgical History Diabetic: Yes -: Hepatitis-C (cured) -: HTN -: Hyperlipidemia -: Chronic pain -: Chronic anemia -: End-stage renal disease on hemodialysis (MWF) -: Diabetes mellitus type 2 -: Chronic pain -: Chronic anemia -: Cirrhosis of liver on the CT scan -: COPD -: Left knee replacement -: ankle heel spur removed -: Leftankle surgery -: toe surgery -: back surgery -: TENS implant -: Left femur Psychosocial/ Personal History: Patient is . He has 2 children - Family History Sister -: Diabetes, Cancer Notes: colon ca Brother -: Hypertension, Diabetes dad -: Hypertension Notes: Colostomy mom -: Hypertension, Cancer Notes: dementia, Breast Cancer - Social History Smoking Status: Current every day smoker Alcohol use: No CD- Drugs: No Caffeine use: Yes Place of Residence: Home Review of Systems 10-point ROS is otherwise unremarkable General: Chills, Sweats Respiratory: Cough, Shortness of Breath, SOB with Excertion, Pleuritic Pain, Sputum, Wheezing, As per HPI Gastrointestinal: Nausea Physical Examination - Vital Signs Temperature: 98.6 F Blood Pressure: 133/98 Pulse: 55 Respirations: 22 - Physical Exam General: Alert, In no apparent distress HEENT: Atraumatic, PERRLA, Mucous membr. moist/pink, EOMI, Sclerae nonicteric Neck: Supple, 2+ carotid pulse no bruit, No LAD, Without JVD or thyroid abnormality Respiratory: Diminished, Rhonchi/gurgles Cardiovascular: Regular rate/rhythm, Normal S1 S2 Gastrointestinal: Normal bowel sounds, No tenderness Musculoskeletal: No tenderness Integumentary: No rashes Neurological: Normal speech, Normal strength at 5/5 x4 extr, Normal tone, Normal affect Lymphatics: No axilla or inguinal lymphadenopathy - Studies Laboratory Data (last 24 hrs) 08/31/20 22:27: PT 14.8 H, INR 1.28 08/31/20 22:27: WBC 8.40 D, Hgb 10.6 L, Hct 31.2 L, Plt Count 114 L 08/31/20 22:27: Sodium 134 L, Potassium 4.6, BUN 73 H, Creatinine 9.11 H*, Glucose 216 H, Magnesium 2.6 H, Total Bilirubin 2.0 H, AST 28, ALT 23, Alkaline Phosphatase 237 H Assessment and Plan - Problems (Diagnosis) (1) Cirrhosis Current Visit: Yes Status: Chronic Qualifiers: Hepatic cirrhosis type: unspecified hepatic cirrhosis Ascites presence: without ascites Qualified Code(s): K74.60 - Unspecified cirrhosis of liver (2) Chronic pain Current Visit: Yes Status: Chronic Qualifiers: Chronic pain type: other chronic pain Qualified Code(s): G89.29 - Other chronic pain (3) HLD (hyperlipidemia) Current Visit: Yes Status: Chronic Qualifiers: Hyperlipidemia type: unspecified Qualified Code(s): E78.5 - Hyperlipidemia, unspecified (4) CHF (congestive heart failure) Current Visit: Yes Status: Chronic Qualifiers: Heart failure type: unspecified Heart failure chronicity: chronic Qualified Code(s): I50.9 - Heart failure, unspecified (5) COPD exacerbation Current Visit: No Status: Acute (6) Pneumonia Onset Date: 09/01/15 Current Visit: No Status: Acute Qualifiers: Pneumonia type: due to unspecified organism Laterality: right Lung location: upper lobe of lung Qualified Code(s): J18.9 - Pneumonia, unspecified organism (7) Renal failure Onset Date: 11/12/14 Current Visit: No Status: Chronic Qualifiers: Renal failure chronicity: chronic Chronic kidney disease stage: on chronic dialysis Qualified Code(s): N18.6 - End stage renal disease; Z99.2 - Dependence on renal dialysis (8) Diabetes Current Visit: No Status: Chronic Qualifiers: Diabetes mellitus type: type 2 Diabetes mellitus nursing home insulin use: unspecified 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 insulin use status Diabetes mellitus complication status: with kidney complications Chronic kidney disease stage: on chronic dialysis (9) End stage renal disease Current Visit: No Status: Chronic (10) Hypertension Current Visit: No Status: Chronic Qualifiers: Hypertension type: essential hypertension Qualified Code(s): I10 - Essential (primary) hypertension - Plan pulmonology consulted, nephrology consulted for dialysis IV ceftriaxone and azithromycin continue O2, breathing treatments, RT consulted blood and sputum cultures pending ECHO ordered for the AM for assessment of CHF fluid restrict, low salt diet, daily weights nicotine patch pain and cough medication PRN continue to monitor rib fractures reconcile and continue other home medications SCDs Discharge Plan: Home Plan to discharge in: 72 Hours - Advance Directives Does patient have a Living Will: No Does patient have a Durable POA for Healthcare: No - Code Status/Comfort Care Code Status Assessed: Yes (full code ) Critical Care: No Time Spent Managing Pts Care (In Minutes): 70
[2020-09-01 05:00] LABS: Albumin 3.3 g/dL (3.4-5.0); Bilirubin Total 1.9 mg/dL (0.2-1.0); Magnesium 2.7 mg/dL (1.8-2.4); Potassium 4.9 mmol/L (3.5-5.1); Protein, Total 7.6 g/dL (6.4-8.2); Troponin I 0.15 ng/mL (0.0-0.045)
[2020-09-01 05:03] LABS: Phosphorus 8.8 mg/dL (2.5-4.9)
[2020-09-01 05:09] VITALS: BMI 24.2
--- NOTE | 2020-09-01 07:02 | RAD REPORT ---
EXAM DESCRIPTION: RAD - Chest Single View - 08/31/2020 10:50 pm CLINICAL HISTORY: CONGESTION COMPARISON: Portable August 28 TECHNIQUE: AP portable chest image was obtained 08/31/2020 10:50 pm . FINDINGS: Increasing airspace opacification in the right lung base. This partially obscures the righ t heart border. Patchy interstitial and alveolar opacities in the upper lung clark are not significa ntly different. Cardiomegaly remains. Vasculature is mildly prominent. Trachea remains midline. No measurable pleura l effusion and no pneumothorax. No acute bony abnormality seen. No acute aortic findings suspected. IMPRESSION: Right middle lobe pneumonia new or progressive from August 28 imaging. Cardiomegaly and prominent lung parenchyma may indicate a component of failure or volume overload.
[2020-09-01] MEDS: INSULIN -REGULAR HUMAN 50 UNIT/0.5 ML ML SQ SCH ×4 (07:30→21:00)
[2020-09-01] MEDS: NICOTINE 14 MG/PAT TD SCH (08:23)
[2020-09-01] MEDS: predniSONE 20 MG TAB PO SCH ×2 (08:24→21:58)
[2020-09-01] MEDS: IPRATROPIUM BROM 0.5MG/2.5ML NEB SCH ×3 (08:53→20:20)
[2020-09-01] MEDS: ALBUTEROL 2.5 MG/3 ML NEB SOL NEB PRN ×3 (08:53→20:20)
[2020-09-01] MEDS ORDERED: VANCOMYCIN/NS 1 gm 1 GM/250 ML BAG IVPB SCH (10:00)
--- NOTE | 2020-09-01 12:25 | P.CNS ---
Date of Consult: 09/01/20 Reason for Consult: Pneumonia Chief Complaint: pneumonia History of Present Illness: Patient is 65 years of age in metabolic syndrome end-stage renal disease cirrhosis admitted with shortness of breath and cough productive cough he has some chest pain chills admitted with right lower lobe pneumonia Allergies No Known Drug Allergies Allergy (Mild, Verified 02/25/20 07:41) Unknown Home Medications: Albuterol Inhaler [Ventolin Inhaler*] 2 puff IN QID PRN 09/01/20 Clonidine HCl [Catapres*] 0.2 mg PO BID 09/01/20 Clopidogrel Bisulfate [Plavix*] 75 mg PO DAILY 09/01/20 Gabapentin 300 mg PO BID 09/01/20 Hydralazine HCl 50 mg PO TID 09/01/20 Hydrocodone Bit/Acetaminophen [Platte 10-325 Tablet] 1 tab PO QID PRN 09/01/20 Lactulose 10 gm PO DAILY 09/01/20 Ropinirole HCl 0.5 mg PO BEDTIME 09/01/20 Sevelamer Carbonate [Renvela*] 800 mg PO TID 09/01/20 Tizanidine [Zanaflex*] 4 mg PO BID 09/01/20 - Past Medical/Surgical History Diabetic: Yes -: Hepatitis-C (cured) -: HTN -: Hyperlipidemia -: Chronic pain -: Chronic anemia -: End-stage renal disease on hemodialysis (MWF) -: Diabetes mellitus type 2 -: Chronic pain -: Chronic anemia -: Cirrhosis of liver on the CT scan -: COPD -: Left knee replacement -: ankle heel spur removed -: Leftankle surgery -: toe surgery -: back surgery -: TENS implant -: Left femur Psychosocial/ Personal History: Patient is . He has 2 children - Family History Sister Medical History: Diabetes, Cancer Notes: colon ca Brother Medical History: Hypertension, Diabetes dad Medical History: Hypertension Notes: Colostomy mom Medical History: Hypertension, Cancer Notes: dementia, Breast Cancer - Social History Smoking Status: Current every day smoker Alcohol use: No CD- Drugs: No Caffeine use: Yes Place of Residence: Home Review of Systems General: Weakness Respiratory: Cough, Shortness of Breath Gastrointestinal: Nausea Physical Examination Temp Pulse Resp BP Pulse Ox 97.1 F 49 L 20 154/67 H 98 09/01/20 12:00 09/01/20 12:00 09/01/20 12:00 09/01/20 12:00 09/01/20 12:00 General: Alert, In no apparent distress, Oriented x3 HEENT: Atraumatic Neck: Supple Respiratory: Clear to auscultation bilaterally Cardiovascular: No edema, Regular rate/rhythm, Normal S1 S2 Gastrointestinal: Normal bowel sounds, Soft and benign Laboratory Data (last 24 hrs) 08/31/20 22:27: PT 14.8 H, INR 1.28 08/31/20 22:27: WBC 8.40 D, Hgb 10.6 L, Hct 31.2 L, Plt Count 114 L 08/31/20 22:27: Sodium 134 L, Potassium 4.6, BUN 73 H, Creatinine 9.11 H*, Glucose 216 H, Magnesium 2.6 H, Total Bilirubin 2.0 H, AST 28, ALT 23, Alkaline Phosphatase 237 H - Problems (1) Pneumonia Current Visit: Yes Status: Acute Plan: Patient is 65 years of age admitted with right lower lobe pneumonia cut end stage renal disease high risk for resistant infection chronic renal failure elevated alkaline phosphatase elevated pro calcitonin white count is normal mildly anemic he is a smoker most likely has underlying significant COPD patient was started on vancomycin change to p.o. levofloxacin is very hemodynamically stable no clinical evidence of active ongoing sepsis probably has underlying COPD had a bronchodilator continue with steroid oxygenation satisfactory possible discharge on a bronchodilator Advair for a trilogy in addition to low- dose prednisone Qualifiers: Pneumonia type: due to unspecified organism Laterality: right
--- NOTE | 2020-09-01 12:56 | EKG ---
Test Date: 2020-08-31 Test Time: 22:25:44 Carton Counter Feeder: DRE MEASUREMENT RESULTS: Intervals: Rate: 56 MD: 146 QRSD: 84 QT: 520 QTc: 501 Hurley: P: 42 MD: 146 QRS: 45 T: -27 INTERPRETIVE STATEMENTS: Sinus bradycardia Possible Anterior infarct, age undetermined Abnormal ECG Compared to ECG 08/28/2020 18:14:41 Prolonged QT interval no longer present Myocardial infarct finding still present Electronically Signed On 09-01-20 12:53:49 CDT by Jose Francisco Mckeon
--- NOTE | 2020-09-01 13:07 | ECHO ---
HEIGHT: 5 ft 6 in WEIGHT: 142 lb 14.4 oz DATE OF STUDY: 09/01/[address]: Mark Fleming 2-DIMENSIONAL: YES M.MODE: YES DOPPLER: YES COLOR FLOW: YES TDS: NO PORTABLE: NO DEFINITY: NO BUBBLE STUDY: NO DIAGNOSIS: CONGESTIVE HEART FAILURE CARDIAC HISTORY: CATHERIZATION: YES SURGERY: NO PROSTHETIC VALVE: NO PACEMAKER: NO MEASUREMENTS (cm) DIASTOLIC (NORMALS) SYSTOLIC (NORMALS) IVSd 1.3 (0.6-1.2) LA Diam 4.2 (1.9-4.0) LVEF 49% LVIDd 4.7 (3.5-5.7) LVIDs 3.6 (2.0-3.5) %FS 25% LVPWd 1.4 (0.6-1.2) Ao Diam 3.0 (2.0-3.7) 2 DIMENSIONAL ASSESSMENT: RIGHT ATRIUM: NORMAL LEFT ATRIUM: DILATED RIGHT VENTRICLE: NORMAL LEFT VENTRICLE: LEFT VENTRICULAR HYPERTROPHY TRICUSPID VALVE: NORMAL MITRAL VALVE: NORMAL PULMONIC VALVE: NORMAL AORTIC VALVE: SCLEROSIS PERICARDIAL EFFUSION: NONE AORTIC ROOT: NORMAL LEFT VENTRICULAR WALL MOTION: MILD GLOBAL HYPOKINESIS. DOPPLER/COLOR FLOW: MILD AORTIC AND TRICUSPID REGURGITATION. COMMENTS: MILD GLOBAL HYPOKINESIS. LEFT VENTRICULAR EJECTION FRACTION 45-49%. MILD AORTIC AND TRICUSPID REGURGITATION. LEFT ATRIAL ENLARGEMENT. LEFT VENTRICULAR HYPERTROPHY. AORTIC SCLEROSIS WITH NO STENOSIS. TECHNOLOGIST: Park QUEVEDO
[2020-09-01] MEDS ORDERED: EPOETIN 4,000 UNIT/ML VIAL IV SCH (14:00)
--- NOTE | 2020-09-01 14:38 | RAD REPORT ---
EXAM DESCRIPTION: CT - Thorax Wo Fortino - 09/01/2020 6:49 am CLINICAL HISTORY: Cough, pain. Fever, shortness of breath. Diabetes dialysis. Gastroesophageal reflu x cholesterol, hypertension. COMPARISON: None. TECHNIQUE: Axial CT imaging of the chest performed. Reformatted coronal and sagittal images obtained . This exam was performed according to our departmental dose-optimization program which includes automa svetlana exposure control, adjustment of the mA and/or kV according to patient size and/or use of iterativ e reconstruction technique FINDINGS: HEART/VESSELS: Moderate heart enlargement. No pericardial fluid. Significant thoracic aort a atherosclerosis. Significant atherosclerosis within the origin of the right and left subclavian art [place]. Normal caliber main pulmonary artery. There are significant coronary artery calcifications. MEDIASTINUM AND ADITYA: Mildly enlarged pretracheal lymph node up to 1.5 x 1.1 x 1.9 cm. Enlarged subca rinal node is 2.7 x 1.6 x 3.1 cm. Normal appearance of the trachea and main bronchi. Normal esophagus . LUNGS/PLEURA: There are peribronchial nodular centrilobular opacities within the right middle lobe co mpatible with pneumonia. There are a few scattered faint centrilobular densities within the right upp er lobe, left upper lobe compatible with multifocal pneumonia. Several scattered calcified nodules th roughout the right and left upper lobe due to remote granulomatous disease. There is a 2.9 cm cystic collection within the left lower lobe with the cyst wall calcification compatible with a chronic pneu matocele. There is no pneumothorax. There is trace right pleural fluid. No edema. CHEST WALL/SOFT TISSUES: Unremarkable thyroid. Mild chest wall subcutaneous edema. Intact sternum. Th ere is an intrathecal catheter within the thoracic spine. Large Schmorl's nodes are present in the lo wer thoracic vertebral endplates. UPPER ABDOMEN: Unremarkable spleen. Slightly nodular liver due to cirrhosis. Included stomach appears normal. IMPRESSION: 1. Multifocal pneumonia within the right middle lobe and upper lobes. Mild associated me diastinal lymphadenopathy and trace right pleural fluid. 2. Old granulomatous disease. 3. Cardiomegaly with significant vascular disease. 4. Hepatic cirrhosis. Electronically signed by: Frannie Maya DO 08/31/2020 11:40 PM CDT Due to temporary technical issues with the PACS/Fluency reporting system, reports are being signed by the in house radiologists without review as a courtesy to insure prompt reporting. The interpreting radiologist is fully responsible for the content of the report.
--- NOTE | 2020-09-01 15:35 | CON ---
Reason For Consultation: Elevated BUN and creatinine, fluid management. History Of Present Illness: This is a 65-year-old gentleman, well known to me from dialysis with sig nificant past medical history of end-stage renal disease, on dialysis TTS at [facility], hep C, hyperlipidemia, hypertension, diabetes complicated with neuropathy and nephropathy, pe ripheral vascular disease, renal artery stenosis. The patient recently admitted to the hospital with over volume, treated and discharged. Apparently, the patient started having cough and shortness of breath, for that reason he reported back to the hospital. Primary workup including CT show right-alisha ed pneumonia. For that reason, the patient was admitted to the hospital. The patient had history of COPD, active smoker. Past Medical History: Include; 1.End-stage renal disease, on hemodialysis, TTS. 2.Secondary hyperparathyroidism. 3.Hypertension. 4.Diabetes complicated with neuropathy and nephropathy. 5.Chronic obstructive pulmonary disease. 6.Renal artery stenosis. 7.Peripheral vascular disease. 8.Hep C with cirrhosis. Allergies: NO KNOWN DRUG ALLERGIES. Social History: Active smoker. Denied alcohol. Denied drug abuse. Family History: Positive for diabetes and cancer. Home Medications: Include aspirin, Bumex, clonidine, Cardura, gabapentin, hydrocodone, pravastatin, carvedilol, Levaquin, and Plavix. Past Surgical History: Include left femoral surgery, low back injection, AV fistula creation, tonsil lectomy. Review of Systems: Head and Neck: No red eye. No ear pain. GI: Decreased intake. : No polyuria, no dysuria, no hematuria. 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 Respiratory: Has shortness of breath, has cough. Cardiovascular: Has chest tightness. Endocrine: No polydipsia. Skin: No rash. Neuro: Has neuropathy. Musculoskeletal: Has low back pain. Physical Examination: Vital Signs: When I saw the patient; blood pressure of 154/67, pulse of 49, afebrile. Chest: Crackles bilateral base, more prominent right base. Heart: S1, S2. Systolic murmur. Abdomen: Soft, nontender. Extremity: No edema. Neurologic: Alert. No focality. Laboratory Data: WBC 9.2, H and H 10.5/31.6. Sodium 135, potassium 4.9, bicarb 23, BUN 74, creatini ne 9.1, calcium 6.9, magnesium 2.7, 1.9 phosphorus 8.8. Assessment And Plan: 1.End-stage renal disease. Normal volume. We will arrange for the patient for his dialysis today a nd we will monitor the patient. 2.Hypertension, controlled, optimal. Continue current medication. We will utilize blood pressure f or more ultrafiltration. 3.Renal artery stenosis, stable. Blood pressure, acceptable control. No resistant pulmonary edema, we will continue current treatment. 4.Anemia of chronic kidney disease. We will resume DEXTER. 5.Healthcare associated pneumonia. I going to go ahead and add vancomycin and we will follow up wit h Pulmonary. 6.Secondary hyperparathyroidism. I will start the patient on Renvela and we will follow up the shashi ent. 7.Diabetes as by primary. 8.Hipatitis C, stable. Thank you Dr. Mix for allowing us to participate in the care of your patient. COURTNEY Voice ID: [id number] Report ID: [id number]
[2020-09-01] MEDS: HYDRALAZINE HCL 20 MG/ML VIAL IV PRN (15:48)
--- NOTE | 2020-09-01 16:27 | P.PN ---
Date of Service: 09/01/20 Patient seen and examined. He reports cough productive of greenish sputum and shortness of breath. CT chest shows multifocal pneumonia in the right lung. Diagnosis. Pneumonia End-stage renal disease on hemodialysis. COPD Plan: Pulmonary input appreciated. Antibiotics changed to oral Levaquin and IV vancomycin. Nephrology input appreciated. Patient to do hemodialysis today. Supportive measures. Bronchodilators and oral steroid.
[2020-09-01] MEDS: SEVELAMER CARBONATE 800 MG TABLET PO SCH (17:33)
[2020-09-01] MEDS ORDERED: HYDRALAZINE HCL 20 MG/ML VIAL IV ONE (19:15)
[2020-09-01] MEDS: GABAPENTIN 300 MG CAP PO SCH (21:58)
[2020-09-01] MEDS: DULERA 200/5 (MOMETASONE/FORMOTEROL) INHALER IH SCH (21:58)
[2020-09-01] MEDS: HYDRALAZINE HCL 25 MG TABLET PO SCH (21:58)
[2020-09-01] MEDS: cloNIDine HCL 0.1 MG TAB PO SCH (21:59)
[2020-09-01] MEDS: ROPINIROLE HCL 0.25 MG TAB PO SCH (21:59)
[2020-09-01] MEDS: HYDROCODONE/APAP 10/325 TAB PO PRN (22:10)
[2020-09-01] MEDS ORDERED: VANCOMYCIN 1 GM/VIAL ONE (23:13)
[2020-09-02] MEDS: IPRATROPIUM BROM 0.5MG/2.5ML NEB SCH ×4 (01:25→19:40)
[2020-09-02 04:26] LABS: Absolute Lymphocytes (CBC) 0.2 K/uL (0.7-4.9); Basophils % 0.5 % (0-1.3); Hematocrit 30.4 % (39.6-49.0); Lymphocytes % 4.6 % (15.3-44.8); MPV 9.3 fL (7.6-11.3)
[2020-09-02 05:04] LABS: Bilirubin Total 1.5 mg/dL (0.2-1.0); Magnesium 2.5 mg/dL (1.8-2.4); Phosphorus 7.1 mg/dL (2.5-4.9); Potassium 4.6 mmol/L (3.5-5.1); Protein, Total 7.2 g/dL (6.4-8.2); Thyroid Stimulating Hormone 0.766 uIU/mL (0.360-3.740)
[2020-09-02] MEDS: ALBUTEROL 2.5 MG/3 ML NEB SOL NEB PRN ×2 (07:50→14:25)
[2020-09-02] MEDS: NICOTINE 14 MG/PAT TD SCH (08:39)
[2020-09-02] MEDS: LACTULOSE 20 GM/30 ML UCUP PO SCH (08:39)
[2020-09-02] MEDS: SEVELAMER CARBONATE 800 MG TABLET PO SCH ×3 (08:39→16:35)
[2020-09-02] MEDS: CLOPIDOGREL 75 MG TABLET PO SCH (08:40)
[2020-09-02] MEDS: HYDRALAZINE HCL 25 MG TABLET PO SCH ×3 (08:40→20:55)
[2020-09-02] MEDS: levoFLOXacin 250 MG TAB PO SCH (08:40)
[2020-09-02] MEDS: GABAPENTIN 300 MG CAP PO SCH ×2 (08:40→20:55)
[2020-09-02] MEDS: HYDROCODONE/APAP 10/325 TAB PO PRN ×2 (08:40→20:53)
[2020-09-02] MEDS: cloNIDine HCL 0.1 MG TAB PO SCH ×2 (08:42→20:57)
[2020-09-02] MEDS: predniSONE 20 MG TAB PO SCH ×2 (08:42→20:55)
[2020-09-02] MEDS: INSULIN -REGULAR HUMAN 50 UNIT/0.5 ML ML SQ SCH ×4 (08:43→20:56)
[2020-09-02] MEDS: DULERA 200/5 (MOMETASONE/FORMOTEROL) INHALER IH SCH ×2 (08:43→20:55)
[2020-09-02] MEDS ORDERED: FENTANYL 25 MCG/PATCH TD SCH (10:30)
[2020-09-02] MEDS: MORPHINE 2 MG/ML SYR IV PRN ×2 (10:57→16:36)
--- NOTE | 2020-09-02 11:48 | PN ---
Date of Progress Note: 09/02/2020 Subjective: The patient was admitted with healthcare-associated pneumonia. The patient was started on vancomycin with breathing treatment. The patient had dialysis yesterday, tolerated the dialysis v [place] well. Physical Examination: Vital Signs: When I saw the patient; blood pressure 118/52, pulse of 68, afebrile. Chest: Faint crackles on the right base. Heart: S1, S2. Systolic murmur. Abdomen: Soft, nontender. Extremity: No edema. Vascular: Has AV fistula, brachiocephalic, good flow, good bruit. Neurologic: Alert, oriented x3. No focal. Laboratory Data: WBC 4.6, H and H 10.3/30.4. Sodium 136, potassium 4.6, bicarb 29, BUN 47, creatini ne 6.7, calcium 7.5, phosphorus 7.1 and trending down, magnesium 2.5. Current Medications: The patient on include Levaquin 250, vancomycin, breathing treatment, Plavix, c lonidine 0.2 b.i.d., hydralazine 50 t.i.d., gabapentin, fentanyl, Renvela 2400. Assessment And Plan: 1.End-stage renal disease, normal volume currently. I am going to continue the patient on dialysis. The patient is going to be scheduled for dialysis tomorrow and we will follow up. 2.Hypertension. I am going to go ahead and decrease his hydralazine to 25 mg to avoid low blood pre ssure on dialysis tomorrow as blood pressure today on the lower side. 3.Secondary hyperparathyroidism. Continue Renvela. We will follow up level. 4.Severe neuropathy with low back pain. I am going to start the patient on fentanyl patch and we wi ll continue p.r.n. pain medication. 5.Anemia of chronic kidney disease. No need for DEXTER for the time being. We will follow up. 6.Pneumonia. We will follow up culture. Continue vancomycin and Levaquin. YOUNG/DHRUV Voice ID: [id number] Report ID: [id number]
[2020-09-02] MEDS: HYDRALAZINE HCL 20 MG/ML VIAL IV PRN (12:01)
--- NOTE | 2020-09-02 14:45 | P.PN ---
Subjective Date of Service: 09/02/20 Chief Complaint: pneumonia Patient states he feels much better today. He is still requiring 3 L of oxygen. Physical Examination - Vital Signs Temperature: 98.2 F Blood Pressure: 204/88 Pulse: 66 Respirations: 18 Pulse Ox (%): 99 - Physical Exam General: Alert, In no apparent distress HEENT: Mucous membr. moist/pink Neck: JVD not distended Respiratory: Normal air movement, Crackles/rales (Bilateral) Cardiovascular: Regular rate/rhythm, Normal S1 S2 Gastrointestinal: Normal bowel sounds, Soft and benign, Non-distended, No tenderness Musculoskeletal: No swelling Integumentary: No rashes Assessment And Plan - Current Problems (Diagnosis) (1) Acute respiratory failure with hypoxia Status: Acute (2) COPD exacerbation Status: Acute (3) DM type 2 (diabetes mellitus, type 2) Status: Acute (4) Dependence on renal dialysis Status: Acute (5) Pneumonia Status: Acute Qualifiers: Pneumonia type: due to unspecified organism Laterality: right Lung location: lower lobe of lung Qualified Code(s): J18.9 - Pneumonia, unspecified organism (6) End stage renal disease Status: Chronic - Plan Continue antibiotics. Continue bronchodilators. Hemodialysis per nephrology. Wean oxygen as tolerated. Increase activity as tolerated. Follow cultures. Insulin sliding scale for glucose management.
[2020-09-02] MEDS: BENZONATATE 100 MG CAP PO PRN (16:35)
[2020-09-02] MEDS ORDERED: ALBUTEROL 2.5 MG/3 ML NEB SOL NEB PRN (17:00)
[2020-09-02] MEDS: ROPINIROLE HCL 0.25 MG TAB PO SCH (20:54)
[2020-09-02] MEDS: NEPRO SHAKE 237 ML CAN PO SCH (20:57)
[2020-09-02 23:50] VITALS: O2SAT 94
[2020-09-03] MEDS: HYDRALAZINE HCL 20 MG/ML VIAL IV PRN (00:24)
[2020-09-03] MEDS: MORPHINE 2 MG/ML SYR IV PRN ×2 (00:30→11:43)
[2020-09-03] MEDS: IPRATROPIUM BROM 0.5MG/2.5ML NEB SCH ×3 (01:40→13:47)
[2020-09-03 05:08] LABS: Albumin 3.1 g/dL (3.4-5.0); Potassium 4.9 mmol/L (3.5-5.1)
[2020-09-03] MEDS: HYDROCODONE/APAP 10/325 TAB PO PRN (06:36)
[2020-09-03] MEDS: INSULIN -REGULAR HUMAN 50 UNIT/0.5 ML ML SQ SCH ×2 (07:30→11:26)
[2020-09-03] MEDS: SEVELAMER CARBONATE 800 MG TABLET PO SCH ×2 (08:21→11:42)
[2020-09-03] MEDS: cloNIDine HCL 0.1 MG TAB PO SCH (08:22)
[2020-09-03] MEDS: predniSONE 20 MG TAB PO SCH (08:22)
[2020-09-03] MEDS: HYDRALAZINE HCL 25 MG TABLET PO SCH ×2 (08:23→13:12)
[2020-09-03] MEDS: levoFLOXacin 250 MG TAB PO SCH (08:23)
[2020-09-03] MEDS: CLOPIDOGREL 75 MG TABLET PO SCH (08:23)
[2020-09-03] MEDS: GABAPENTIN 300 MG CAP PO SCH (08:23)
[2020-09-03] MEDS: NICOTINE 14 MG/PAT TD SCH (08:24)
[2020-09-03] MEDS: BENZONATATE 100 MG CAP PO PRN (08:25)
[2020-09-03] MEDS: DULERA 200/5 (MOMETASONE/FORMOTEROL) INHALER IH SCH (08:25)
[2020-09-03] MEDS: LACTULOSE 20 GM/30 ML UCUP PO SCH (08:25)
[2020-09-03] MEDS: NEPRO SHAKE 237 ML CAN PO SCH (08:26)
--- NOTE | 2020-09-03 08:42 | P.PN ---
Subjective Date of Service: 09/03/20 Chief Complaint: pneumonia Subjective: Improving (Patient doing well no new complaints has some mild coughing) Review of Systems 10-point ROS is otherwise unremarkable Respiratory: Cough Physical Examination - Vital Signs Temperature: 98.2 F Blood Pressure: 140/80 Pulse: 69 Respirations: 16 Pulse Ox (%): 96 - Physical Exam General: Alert, In no apparent distress, Oriented x3 Respiratory: Clear to auscultation bilaterally Cardiovascular: No edema, Regular rate/rhythm Assessment & Plan - Problems (Diagnosis) (1) Pneumonia Current Visit: Yes Status: Acute Plan: Patient admitted with right lower lobe pneumonia clinically doing much better Dc vancomycin the patient on levofloxacin 250 mg dose adjusted for renal function vital signs all stable no evidence of sepsis cultures negative labs reviewed plan for discharge continue with levofloxacin for at least 10 days Qualifiers: Pneumonia type: due to unspecified organism Laterality: right Lung location: lower lobe of lung Qualified Code(s): J18.9 - Pneumonia, unspecified organism
[2020-09-03 13:16] VITALS: BP 204/88
--- NOTE | 2020-09-03 14:00 | P.DS ---
Admission Date: 09/01/20 Discharge Date: 09/03/20 Disposition: ROUTINE DISCHARGE Discharge Condition: FAIR Reason for Admission: pneumonia - Problems (1) Dependence on renal dialysis Current Visit: Yes Status: Acute (2) DM type 2 (diabetes mellitus, type 2) Current Visit: Yes Status: Acute (3) Pneumonia Current Visit: Yes Status: Acute Qualifiers: Pneumonia type: due to unspecified organism Laterality: right Lung location: lower lobe of lung Qualified Code(s): J18.9 - Pneumonia, unspecified organism (4) Cirrhosis Current Visit: Yes Status: Chronic Qualifiers: Hepatic cirrhosis type: unspecified hepatic cirrhosis Ascites presence: without ascites Qualified Code(s): K74.60 - Unspecified cirrhosis of liver (5) End stage renal disease Current Visit: No Status: Chronic (6) Hypertension Current Visit: No Status: Chronic Qualifiers: Hypertension type: essential hypertension Qualified Code(s): I10 - Essential (primary) hypertension (7) Acute respiratory failure with hypoxia Current Visit: Yes Status: Acute Brief History of Present Illness: 65 yo M with COPD on 2L Home O2, ESRD on HD MWF, CHF, AoCD, HLD, HTN, cirrhosis and chronic back pain presented to the emergency department with with cough, SOB, and BOSE of 5 days duration. Chest x-ray done in the emergency department demonstrated multifocal pneumonia in the right lung. Patient not septic. He was requiring more oxygen after 3-4 L. Patient admitted for further management. Hospital Course: Patient admitted to the medical floor and treated for pneumonia with broad- spectrum antibiotics-Rocephin and Zithromax. He was seen in consultation by pulmonary-Dr. Soler was switched his antibiotics to oral Levaquin.. He was also seen by nephrology Dr. Rand and he underwent dialysis.. He clinically improved with treatment. Oxygen has been weaned down to baseline. Patient ambulatory and now improved to baseline. Patient is clinically stable for discharge. Vital Signs/Physical Exam: Temp Pulse Resp BP Pulse Ox 97 F 70 16 204/88 H 96 09/03/20 12:00 09/03/20 12:00 09/03/20 12:13 09/03/20 12:00 09/03/20 12:13 General: Alert, In no apparent distress HEENT: Mucous membr. moist/pink Neck: JVD not distended Respiratory: Crackles/rales (Mild crackles right lower lobe) Cardiovascular: Regular rate/rhythm, Normal S1 S2 Gastrointestinal: Soft and benign, Non-distended, No tenderness Musculoskeletal: No swelling Neurological: Normal strength at 5/5 x4 extr Laboratory Data at Discharge: WBC 4.60 K/uL (4.3-10.9) D 09/02/20 03:50 Hgb 10.3 g/dL (13.6-17.9) L 09/02/20 03:50 Hct 30.4 % (39.6-49.0) L 09/02/20 03:50 Plt Count 113 K/uL (152-406) L 09/02/20 03:50 PT 14.8 SECONDS (9.5-12.5) H 08/31/20 22:27 INR 1.28 08/31/20 22:27 Sodium 134 mmol/L (136-145) L 09/03/20 03:52 Potassium 4.9 mmol/L (3.5-5.1) 09/03/20 03:52 BUN 70 mg/dL (7-18) H D 09/03/20 03:52 Creatinine 7.98 mg/dL (0.55-1.3) H* D 09/03/20 03:52 Glucose 182 mg/dL (74-106) H 09/03/20 03:52 Phosphorus 8.0 mg/dL (2.5-4.9) H 09/03/20 03:52 Magnesium 2.5 mg/dL (1.8-2.4) H 09/02/20 03:50 Total Bilirubin 1.5 mg/dL (0.2-1.0) H 09/02/20 03:50 AST 19 U/L (15-37) 09/02/20 03:50 ALT 20 U/L (12-78) 09/02/20 03:50 Alkaline Phosphatase 209 U/L (45-117) H 09/02/20 03:50 Troponin I 0.10 ng/mL (0.0-0.045) H 09/01/20 12:27 Home Medications: Albuterol Inhaler [Ventolin Inhaler*] 2 puff IN QID PRN 09/01/20 Clonidine HCl [Catapres*] 0.2 mg PO BID 09/01/20 Clopidogrel Bisulfate [Plavix*] 75 mg PO DAILY 09/01/20 Gabapentin 300 mg PO BID 09/01/20 Hydralazine HCl 50 mg PO TID 09/01/20 Hydrocodone Bit/Acetaminophen [Inlet 10-325 Tablet] 1 tab PO QID PRN 09/01/20 Lactulose 10 gm PO DAILY 09/01/20 Ropinirole HCl 0.5 mg PO BEDTIME 09/01/20 Sevelamer Carbonate [Renvela*] 800 mg PO TID 09/01/20 Benzonatate [Tessalon Perle*] 100 mg PO TID PRN #30 cap 09/03/20 Epoetin [Retacrit] 4,000 unit IV EVERY HD vial 09/03/20 Heparin [Heparin 1,000 units/mL *] 2,000 unit IV EVERY HD PRN vial 09/03/20 Mometasone/Formoterol [Dulera 200 Mcg/5 Mcg Inhaler] 2 puff IH BID #1 inhaler 09/03/20 Nepro Shake [Nepro*] 237 ml PO BID #60 can 09/03/20 Sevelamer Carbonate [Renvela*] 2,400 mg PO TIDWM #270 tablet 09/03/20 levoFLOXacin [Levaquin*] 250 mg PO DAILY #8 tab 09/03/20 predniSONE [Prednisone*] 20 mg PO BID #6 tab 09/03/20 New Medications: Mometasone/Formoterol [Dulera 200 Mcg/5 Mcg Inhaler] 2 puff IH BID #1 inhaler levoFLOXacin [Levaquin*] 250 mg PO DAILY #8 tab Nepro Shake [Nepro*] 237 ml PO BID #60 can predniSONE [Prednisone*] 20 mg PO BID #6 tab Sevelamer Carbonate [Renvela*] 2,400 mg PO TIDWM #270 tablet Benzonatate [Tessalon Perle*] 100 mg PO TID PRN #30 cap PRN Reason: Cough Diet: AHA Activity: Ad wu Followup: Rajendra Montoya MD [Primary Care Provider] - 1-2 Weeks Time spent managing pt's care (in minutes): 32
[2020-09-04 19:33] VITALS: TEMP 98.2
== END 2020-09-03 18:19 | disposition home health service (06) | DRG 871 ==
LOC: ER 20:42 → ERHOLD 09-01 01:22 → 2ND 09-01 02:48
PROVIDERS: ADMIT Internal Medicine; ATTEND Internal Medicine
PROC: 5A1D70Z Performance of Urinary Filtration, Intermittent, Less than 6 Hours Per Day (ICD-10-PCS; principal; 2020-09-01)
PROC: 5A1D70Z Performance of Urinary Filtration, Intermittent, Less than 6 Hours Per Day (ICD-10-PCS; 2020-09-03)
DX: A41.9 Sepsis, unspecified organism (principal); J96.01 Acute respiratory failure with hypoxia; N18.6 End stage renal disease; J18.9 Pneumonia, unspecified organism; I12.0 Hypertensive chronic kidney disease with stage 5 chronic kidney disease or end stage renal disease; J44.0 Chronic obstructive pulmonary disease with (acute) lower respiratory infection; E11.22 Type 2 diabetes mellitus with diabetic chronic kidney disease; K74.60 Unspecified cirrhosis of liver; R01.1 Cardiac murmur, unspecified; D63.8 Anemia in other chronic diseases classified elsewhere; E11.40 Type 2 diabetes mellitus with diabetic neuropathy, unspecified; E11.21 Type 2 diabetes mellitus with diabetic nephropathy; I70.1 Atherosclerosis of renal artery; Z99.2 Dependence on renal dialysis; Z99.81 Dependence on supplemental oxygen; Z96.652 Presence of left artificial knee joint; Z20.822 Contact with and (suspected) exposure to COVID-19
CPT/HCPCS: 36415; 71045; 71250; 80048; 80053; 80069; 80076; 80202; 82805; 82947; 83605; 83735; 83880; 84100; 84145; 84439; 84443; 84484; 85025; 85610; 85652; 87040; 90935; 93005; 93306; 94640; 94760; 96374; 96375; 99285; J0360; J0456; J1644; J2270; J2405; J3370; J7050; J7512; J7606; Q5105; U0003

== ENCOUNTER 2020-09-29 19:15 | Emergency (ER) | payer OTHER ==
--- OUTSIDE RECORDS SUMMARY | 2020-09-29 19:20 | XMS REPORT | Continuity of Care Document ---
:1955 Author Organization [facility] t Address [address] [place] [address] Care Team Providers Name Role Phone Natacha Lee DO Primary Care Physician Gary CABALLERO, Brian Attending Clinician Shayna CABALLERO Attending Clinician Chiara Headley MD Attending Clinician Chetan Dnoohue MD Attending Clinician Trae BERNAL Attending Clinician MD SHAYNA Attending Clinician Unavailable Radiology Attending Clinician Unavailable Pob, Lab Main Attending Clinician Unavailable SALENA RUSSELL Attending Clinician Unavailable SWETHA PISANO Attending Clinician Unavailable LEANA KHALIL Attending Clinician Unavailable INGRIS DANIELSON Attending Clinician Unavailable ESMER KERN Attending Clinician Unavailable AIMEE Admitting Clinician Unavailable MD SHAYNA Admitting Clinician Unavailable THEODORE WEIR Admitting Clinician Unavailable Payers Payer Name Policy Type Policy Effective Expiration Source Number Date Date TEXANPLUSTEXANPLUS [id number] 2019 [place] [id number]/1/2020-Pr 00:00:00 M ethodist esentHMO Problems Condition Condition Condition Status Onset Resolution Last Treating Co mments Source Name Details Category Date Date Treatment Clinician Date PVD PVD Disease Active 2019-03 [place] (periphera (periphera 0-06 Me thodi l vascular [...] Active Dorsey ge 5-18 Family 00:00: Practic e Itching of Itching of Problem Active [...] Type 2 Type 2 Problem Active [facility] diabetes Diabetes 5-18 Family mellitus Mellitus 00:00: Practi c with with 00 e multiple Multiple complicati Complicati ons ons Chronic Chronic Problem Active [facility] hepatitis Hepatitis 1-07 Fami ly C C 00:00: Practic 00 e 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 Family History Family Member Diagnosis Comments Start Date Stop Date Source Natural father Other [place] [facility] Natural mother Dementia [place] [facility] Social History Social Habit Start Date Stop Date Quantity Comments Source History of tobacco Cigarette Smoker [place] use [facility] Cigarettes smoked 2019-12-10 2019-12-10 [place] current (pack per 00:00:00 00:00:00 [facility] ) - Reported Tobacco use and 2019-12-10 2019-12-10 Never used [facility] exposure 00:00:00 00:00:00 [facility] Alcohol intake 2019-12-10 2019-12-10 Ex-drinker [place] 00:00:00 00:00:00 (finding) [facility] Sex [birth year] At [birth year] [place] 00:00:00 00:00:00 [facility] Smoking Status Start Date Stop Date Source Light Tobacco Smoker [facility] Current every day smoker 2019-12-10 00:00:00 [place] [facility] Medications Ordered Filled Start Stop Current Ordering Indication Dosage Frequency Signature Comments Components Source Medication Medication Date Date Medication? Clinician (SIG) Name Name aspirin 81 2019-03 2020- No 81mg QD Chew 1 [place] mg chewable 0-07 -06 tablet (81 M ethodi tablet 00:00: 23:59 [...] Yes acute pain 1{tbl} Q6H Take 1 Nazario -acetaminop 0-06 tablet by Met salo martínez [...] times a day. gabapentin 2019-03 Yes 100mg [id number] Take 100 [facility] (NEURONTIN) 0-06 [id number] mg by Natacha ethodi 100 mg 16:07: 3D mouth 3 st capsule 01 (three) times a day. calcium 2019-03 Yes Take by [place] acetate 0-06 mouth. [facility] (PHOSLO 16:07: st ORAL) 01 pravastatin 2019-03 Yes 40mg QD Take 40 mg [facility] (PRAVACHOL) 0-06 by mouth Meth michelle 40 mg 16:07: daily. st tablet folic 2019-03 Yes Take by [place] acid/vit B 0-06 mouth. [facility] complex and 16:07: st C 01 (CORAL-HAMIDA ORAL) tiZANidine 2019-03 Yes 4mg Q8H Take 4 mg [place] (ZANAFLEX) 0-06 by mouth Metho di 4 MG tablet 16:07: every 8 st 01 (eight) hours as needed for muscle spasms. calcium 2019-03 Yes Take by [place] carbonate 0-06 mouth. Methodi (TUMS ORAL) 16:07: st 01 zolpidem 2019- Yes 10mg QD Take 10 mg [place] st[place] (AMBIEN) 10 0-06 by mouth Meth michelle mg tablet 16:07: nightly as st 01 needed for sleep. tamsulosin 2019-03 2020- No .4mg QD Take 0.4 [place] (FLOMAX) 0-01 10-01 mg by Methodi 0.4 mg 12:44: 00:[address] capsule 24 :00 daily. finasteride 2019-03- No 5mg QD Take 5 mg [facility] (PROSCAR) 5 12-04 by mouth Met hodi mg tablet 12:44: 00:[address] 21 :00 tiZANidine 2019-03- No 2mg Q8H Take 2 mg H [place] (ZANAFLEX) 12-04 by mouth Meth michelle 2 MG tablet 12:43: 00:[address] 54 :00 (eight) hours as needed for muscle spasms. Aspir-81 mg Aspir-81 mg No 1 Q1D [...] carvedilol carvedilol No 1 BID carvedilol [facility] 6.25 mg 6.25 mg 6.25 mg Family tablet Take tablet Take tablet Practic 1 tablet 1 tablet Take 1 e twice a day twice a day tablet by oral by oral twice a route. route. day by oral route. clonidine clonidine No 1 BID clonidine [facility] HCl 0.2 mg HCl 0.2 mg HCl 0.2 mg Family tablet Take tablet Take tablet Practic 1 tablet 1 tablet Take 1 e twice a day twice a day tablet by oral by oral twice a route. route. day by oral route. gabapentin gabapentin No 1capsul TID gabapentin [facility] 100 mg 100 mg e(s) 100 mg Family capsule capsule capsule Practi c Take 1 Take 1 Take 1 e capsule 3 capsule 3 capsule 3 times a day times a day times a by oral by oral day by route. route. oral route. lactulose lactulose No 15mL Q1D lactulose [facility] 10 gram/15 10 gram/15 10 gram/15 Family mL (15 mL) mL (15 mL) mL (15 mL) Practic oral oral oral e solution solution solution Take 15 mL Take 15 mL Take 15 mL every day every day every day by oral by oral by oral route as route as route as directed. directed. directed. [place] 10 Al[place] 10 No 1 Q4H [place] 10 Milo tiffanie mg-325 mg mg-325 mg mg-325 mg Family tablet Take tablet Take tablet Practic 1 tablet 1 tablet Take 1 e every 4 every 4 tablet hours by hours by every 4 oral route oral route hours by as needed. as needed. oral route as needed. pravastatin pravastatin No 1 Q1D pravastati [facility] 40 mg 40 mg n 40 [...] Sensipar 30 No 1 Q1D Sensipar [facility] mg tablet mg tablet 30 mg Fami ly Take 1 Take 1 tablet Practic tablet tablet Take 1 e every day every day tablet by oral by oral every day route. route. by oral route. sildenafil sildenafil No 1 Q1D sildenafil [facility] 100 mg 100 mg 100 mg Family tablet Take tablet Take tablet Practic 1 tablet 1 tablet Take 1 e every day every day tablet by oral by oral every day route. route. by oral route. tizanidine tizanidine No 1 Q6H tizanidine [facility] 4 mg tablet 4 mg tablet 4 mg F amily Take 1 Take 1 tablet Practic tablet tablet Take 1 e every 6 every 6 tablet hours by hours by every 6 oral route oral route hours by as as oral route directed. directed. as directed. zolpidem 10 zolpidem 10 No 1 Q1D zolpidem [facility] mg tablet mg tablet 10 mg Fami ly Take 1 Take 1 tablet Practic tablet tablet Take 1 e every day every day tablet by oral by oral every day route at route at by oral bedtime. bedtime. route at bedtime. Immunizations Ordered Immunization Filled Immunization Date Status Commen ts Source Name Name pneumococcal pneumococcal 2019-01-04 [facility] Fa alexia conjugate PCV 13 conjugate PCV 13 00:00:00 Pr actice influenza, influenza, 2019-01-04 Completed [facility] injectable, injectable, 00:00:00 Practice quadrivalent quadrivalent Vital Signs Vital Name Observation Time Observation Value Comments Source Height 2019-09-03 66 [in_i] [facility] 00:00:00 Practice Height 2019-07-23 66 [in_i] [facility] 00:00:00 Practice BMI (Body Mass 2019-07-23 25.8 kg/m2 [facility] Index) 00:00:00 Practice Body Weight 2019-07-23 160 [lb_av] [facility] 00:00:00 Practice Systolic blood 2019-12-10 206 mm[Hg] STANDPIPE TENDER Thaoa made [place] pressure 14:40:00 aware [facility] Diastolic blood 2019-12-10 88 mm[Hg] STANDPIPE TENDER Clarkesha made [place] pressure 14:40:00 aware [facility] Heart rate 2019-12-10 69 /min [place] 14:40:00 [facility] Body temperature 2019-12-10 37.11 Idalia [place] 12:15:24 [facility] Respiratory rate 2019-12-10 16 /min [place] 12:15:24 [facility] Oxygen saturation 2019-12-10 96 /min [place] in Arterial blood 12:15:24 [facility] by Pulse oximetry Body weight 2019-12-10 72.848 kg [place] 06:00:00 [facility] BMI 2019-12-10 25.92 kg/m2 [place] 06:00:00 [facility] Body height 2019-12-09 167.6 cm [place] 16:00:00 [facility] Procedures Procedure Date / Time Performing Clinician Source Performed ECG 12-LEAD 2019-12-10 14:01:00 Lisandro Romo [facility] TROPONIN 2019-12-10 12:50:00 Lisandro Romo [facility] BASIC METABOLIC PANEL 2019-12-10 05:33:00 Natalie Headley ton [facility] ESTIMATED GFR 2019-12-10 05:33:00 Natalie Headley Me thodist HEMODIALYSIS 2019-12-09 20:17:14 Skyler Rand Meth odist [place] < 1 HOUR 2019-12-09 19:26:47 Martita Corral Meth odist HEPATITIS B SURFACE 2019-12-09 19:13:00 Skyler Rand [facility] ANTIGEN HEPATITIS B SURFACE AB, 2019-12-09 19:13:00 Skyler Rand ton [facility] QUANTITATIVE HEMODIALYSIS 2019-12-09 16:51:41 Skyler Rand Meth odist HEMODIALYSIS 2019-12-09 16:09:37 Skyler Rand Meth odist POC GLUCOSE 2019-12-09 16:02:00 Martita Corral odist CO AN ELECTIVE 2019-12-09 13:56:58 Lawrence, Antonieta Girish Lange Natacha ethodist SUPRAGLOTTIC AIRWAY AORTOGRAPHY, POSSIBLE 2019-12-09 13:47:00 Martita Corral n Orthodox ANGIOPLASTY POC GLUCOSE 2019-12-09 12:42:00 ShaynaMartita Meth odist POC PANEL 2019-12-09 10:37:00 Shayna Martita Carvajal odist COMPREHENSIVE METABOLIC 2019-12-09 10:32:00 Shayna Nazmachelle bailey [facility] PANEL TYPE AND SCREEN 2019-12-09 10:32:00 Nazario Wilson ESTIMATED GFR 2019-12-09 10:32:00 Shayna Martita Lange Wei oddestini XR CHEST 2 VW 2019-12-05 13:38:59 Shayna Martita Lange Wei odist ECG PRE/POST OP 2019-12-05 13:07:15 Shayna Liliana Nazario Carvajal oddestini PROTHROMBIN TIME WITH INR 2019-12-05 12:45:00 Shayna Martita Pacheco krysta Schmid PARTIAL THROMBOPLASTIN 2019-12-05 12:45:00 Shayna Nazmachelle Rehman on [facility] TIME (PTT) COVID-19 QUALITATIVE 2019-12-05 12:37:00 Shayna Martita Nazario Schmid RT-PCR HC COMPLETE BLD COUNT 2019-12-05 12:36:00 Shayna Nazmachelle rosas [facility] W/AUTO DIFF HEMOGLOBIN A1C 2019-12-05 12:36:00 Nazario Wilson Plan of Care Planned Activity Planned Date Details Comments Source Future Scheduled 2020-10-04 INFLUENZA VACCINE [facility] Test 00:00:00 [code = INFLUENZA VACCINE] Future Scheduled 2007-08-29 COLONOSCOPY SCREENING [place] [facility] Test 00:00:00 [code = COLONOSCOPY SCREENING] Future Scheduled 2007-08-29 SHINGLES VACCINES [place] [facility] Test 00:00:00 (#1) [code = SHINGLES VACCINES (#1)] Future Scheduled 1969 COVID-19 VACCINE (1) [place] [facility] Test 00:00:00 [code = COVID-19 VACCINE (1)] Future Scheduled 1967-08-29 DIABETES: RETINAL EYE [place] [facility] Test 00:00:00 EXAM [code = DIABETES: RETINAL EYE EXAM] Future Scheduled 1967-08-29 DIABETIC FOOT EXAM [place] [facility] Test 00:00:00 [code = DIABETIC FOOT EXAM] Encounters Start End Encounter Admission Attending Care Care Encounter Source Date/Time Date/Time Type Type Clinicians Facility Department ID 2019-12-09 2019-12-10 Outpatient MIKA HEADLEYCAITLYN [facility] [id number] [place] 00:00:00 00:00:00 276 Method i 2019-12-05 2019-12-05 Outpatient SHAYNA, [facility] [id number] [place] 00:00:00 00:00:00 UTTAM 188 Method i 2019-12-05 2019-12-05 Outpatient SHAYNA, [facility] [id number] [place] 00:00:00 00:00:00 UTTAM 476 Method i 2019-10-10 2019-10-10 Hospital Radiology [facility] [id number] 12:34:44 23:59:00 Encounter [place] [id number] [place] [id number] [place] [id number] 2019-10-10 2019-10-10 Dentist Private Practice Rodney Steen [facility] [id number] 12:38:05 12:53:05 Visit Lab Main [place] [id number] [place] [id number] Professio [id number] [address] 2019-09-03 2019-09-03 Veronica [facility] [place] - [id number] V illage 00:00:00 00:00:00 [facility] traci o, STANDPIPE TENDER: Medical - Practi c [address] [email or web address]_V@H_ e [facility], [address], [place] [address] , Ph. 2019-07-23 2019-07-23 Veronica [facility] [place] - [id number] [place] 00:00:00 00:00:00 [facility] traci brittni, STANDPIPE TENDER: Medical - Practi c [address] [email or web address]@H_ e [facility], [address], [place] [address] , Ph. Results Test Description Test Time Test Comments Results Result Comments Source ECG 12 lead 2019-12-10 16:17:46 Test Item Value Reference Range Interpretation Comme nts Ventricular rate (test code = 253) 70 Atrial rate (test code = 255) 70 CO interval (test code = 266) 144 QRSD [...] Lateral leads- [facility] [place] < 1 [id number] 19:38:18Hm Interface, Radiology Results - 12/09/2019 7:41 PM CDTFormatting of this note might be di fferent from the original.EXAMINATION: [place] < 1 HOURCLINICAL HISTORY: None provided.IMPRESSION:1. Fluoroscopy was provided in the operating. I was not present during the procedure.2. Please refer to the operative report for findings.3. Total Dose: 114 fluoroscopic images. 27.1 minutes of fluoroscopy time.Nazario [id number] 13:56:58Antonieta Lawrence CRNA 12/09/2019 1:57 PMAirway Date/Time: 12/09/2019 1:57 PMPerformed by: Antonieta Lawrence CRNAAuthorized by: Sameer Donohue MD Location: ORUrgency: ElectiveDifficult Airway: No Anesthesiologist: Sameer Donohue, SKYesident/SPEECH PATHOLOGIST/AA: Antonieta Lawrence CRNAPerformed by: resident/SPEECH PATHOLOGIST/AAPreoxygenated with 100% O2: Yes C-spine Precautions Maintained Throughout: Yes Mask Ventilation: Not attemptedFinal Airway Type: Supraglottic airwayFinal LMA: I-GelLMA Size: 4Number of Attempts at Approach: 1[facility] Pre/Post [id number] 00:44:14 Test Item Value Reference Range Interpretation Comments Ventricular rate (test 70 code = 253) Atrial rate (test code = 70 255) CO interval (test code = 136 266) QRSD [...] Htut (2056) on 12/06/2019 12:44:11 AM Nazario ShahMtoaklfcaJTZH-MlY-3 (COVID-19) RNA [Presence] in Respiratory specimen by DELMI with probe [id number] 21:13:34 Test Item Value Reference Range Interpretation Comments SARS-CoV-2 (COVID-19) RNA Not detected Not-Detected [Presence] in Respiratory specimen by DELMI with probe detection (test code = 23010-0) XR Chest 2 [id number] 16:56:18Hm Interface, Radiology Results Incoming - 12/05/2019 4:59 PM CDT EXAMINATION: XR CHEST 2 VWCLINICAL HISTORY: Z01.818 Encounter for other preprocedural examination, PRE OPCOMPARISON: None.IMPRESSION:Heart and mediastinum: Cardiomediastinal silhouette is prominent. Atherosclerotic calcifications of the aortic arch.Lungs and pleura: There is no focal airspace disease, pleural effusion or pneumothorax.Bones: No acute abnormality.Spinal cord stimulator device seen overlying the thoracic spine.[facility]-[id number] and approved by residential advisor/fellow: Joseph Malik M.D.I, Daniel Abbott, personally reviewed the images and resident's/fellow's findings and agree with the final report.Nazario ShahARS-COV2/RT-PCR (HS & REF LABS) 2019-10-04 22:28:00 Test Item Value Reference Range Interpretation Comments SARS-COV2/RT-PCR (test Negative Not Detected, Negative, code = 8457763) See external report for linked test SARS-COV-2 PERFORMING LAB [facility] SUZI (test code = 6034754) Negative result for this test determines that [...] 564(g) of the Act.Fact Sheet for Healthcare Providers:https://www.Donay.com/sites/default/files/product/documents/Fact_Shee s_VF_Enuvdioev_Ctvm_PRCT-WhN-9.pdfFact Sheet for Healthcare Patients:https://www.Donay.com/sites/default/files/product/ documents/Bzjs_Jkjpv_Pntvasif_Cuts_WHZF-MmW-8.pdfPerforming Laboratory:[facility], [place] [address]EKGQ-PUR7/RT-PCR ([facility] & REF LABS)2019-10-01 04:23:00 Test Item Value Reference Range Interpretation Comments SARS-COV2/RT-PCR (test code Negative Not Detected, Negative, = 4557278) See external report for linked test SARS-COV-2 PERFORMING LAB [facility] (test code = 7223302) Negative results do not preclude SARS-CoV-2 infection [...] of the Act.Fact Sheet for Healthcare Pro viders:https://www.g2One.PathDrugomics/Documents/Xpert%20Xpress%20SARS%20CoV-2/Fact%20Sh eets/302-0492%27QFJO-UKM-6%20HEALTHCARE%20PROVIDERS%20FACT%20SHEET.pdfFact Sheet for Healthcare Patients:https://www.MedCity News id.[employer]/Documents/Xpert%20Xpress%20SARS%20CoV-2/Fact%20Sheets/302-3801%20SARS-COV -2%20PATIENT%20FACT%20SHEET.pdfPerforming Laboratory:[facility], [place] [address]GJCYPHK IMAGING, MULTI, PHARM, SPECT 2019-02-21 15:54:00Referring: Dr. Schultz EtheridgeFINAL REPORT PROCEDURE: MYOCARDIAL PERFUSION SPECT IMAGING (Rest/Stress)CPT CODE: 13162 INDICATION: Renal transplant evaluation, hypertension, shortness of [...] Darnell Verified Date/Time: 02/21/2019 15:54:30 Reading Location: [address] Reading Room [id number] 17:11:00 Test Item Value Reference Range Interpretation Comments PROSTATE SPECIFIC ANTIGEN (BEAKER) 0.8 ng/mL 0.0-4.0 (test code = 844) HEPATITIS B SURFACE [id number] 17:11:00 Test Item Value Reference Range Interpretation Comments HEPATITIS B SURFACE ANTIBODY 612.9 mIU/mL <8.0 H (BEAKER) (test code = 647) PROTHROMBIN TIME/[id number] 14:59:00 Test Item Value Reference Range Interpretation Comments PROTIME (BEAKER) (test code = 15.6 seconds 11.7-14.7 H 759) INR (BEAKER) (test code = 370) 1.2 <=5.9 RECOMMENDED COUMADIN/WARFARIN INR THERAPY RANGESSTANDARD DOSE: 2.0 - 3.0 Includes: PROPHYLAXIS forvenous thrombosis, systemic embolization; TREATMENT for venous thrombosis and/or pulmonary embolus.HIGH RISK: Target INR is 2.5-3.5 for patients with mechanical heart valves.BASIC METABOLIC [id number] 14:58:00 Test Item Value Reference Range Interpretation [...] APPLICABLE FOR DIALYSIS PATIEN TS. HEPATIC FUNCTION [id number] 14:53:00 Test Item Value Reference Range Interpretation [...] 6-55 347) CBC W/PLT COUNT & AUTO [id number] 14:19:00 Test Item Value Reference Range Interpretation [...] = 2801) FLOW PRA CLASS I AND [id number] 12:02:00 Test Item Value Reference Range Interpretation Comments DATE OF SERUM (BEAKER) 9110312 (test code = 2289) SERUM # (BEAKER) (test 429723 code = 2290) FLOW PRA CLASS I AND II See Scanned Report (test code = 2421) HEPATITIS B SURFACE [id number] 13:18:00 Test Item Value Reference Range Interpretation Comments HEPATITIS B SURFACE ANTIBODY < mIU/mL <8.0 (BEAKER) (test code = 647) [id number] 13:08:00 Test Item Value Reference Range Interpretation Comments PROSTATE SPECIFIC ANTIGEN (BEAKER) 0.9 ng/mL 0.0-4.0 (test code = 844) FLOW PRA CLASS I AND [id number] 16:00:00 Test Item Value Reference Range Interpretation Comments DATE OF SERUM (BEAKER) 024856 (test code = 2289) SERUM # (BEAKER) (test 029199 code = 2290) FLOW PRA CLASS I AND II See Scanned Report (test code = 2421) BASIC METABOLIC [id number] 15:51:00 Test Item Value Reference Range Interpretation [...] APPLICABLE FOR DIALYSIS PATIEN TS. HEPATIC FUNCTION [id number] 15:48:00 Test Item Value Reference Range Interpretation [...] 6-55 347) CBC W/PLT COUNT & AUTO [id number] 15:11:00 Test Item Value Reference Range Interpretation [...] (test code = 417) 0.00AFB CULTURE + [id number] 19:58:00 Test Item Value Reference Range Interpretation Comments CULTURE (BEAKER) (test No acid-fast bacilli code = 1095) isolated in 42 days AFB SMEAR (BEAKER) No acid fast bacilli (test code = 994) seen AFB CULTURE + [id number] 19:58:00 Test Item Value Reference Range Interpretation Comments CULTURE (BEAKER) (test No acid-fast bacilli code = 1095) isolated in 42 days AFB SMEAR (BEAKER) No acid fast bacilli (test code = 994) seen AFB CULTURE + [id number] 18:21:00 Test Item Value Reference Range Interpretation Comments CULTURE (BEAKER) (test No acid-fast bacilli code = 1095) isolated in 42 days AFB SMEAR ([facility]) No acid fast bacilli (test code = 994) seen POCT-GLUCOSE [id number] 10:30:00 Test Item Value Reference Range Interpretation Comments POC-GLUCOSE METER 468 mg/dL 70-110 HH TESTED AT [facility] 6720 ([facility]) (test code = [place] 1538) [address] CREATINE KINASE (CK), TOTAL AND [id number] 08:31:00 Test Item Value Reference Range Interpretation Comments CREATINE KINASE TOTAL (AKER) 42 U/L 29-200 (test code = 380) CREATINE KINASE-MB ([facility]) (test 2.3 ng/mL 0.0-6.6 code = 750) CREATINE KINASE-MB INDEX ([facility]) 5.5 % (test code = 395) Effective 01/21/2014: CK-MB Reference Range ChangeNew: 0.0-6.6 Previous: 0.0-4.9CK-MB Reference Range:<6.7 Normal6.7-10.0 Borderline>10.0 AbnormalTROPONIN [id number] 08:31:00 Test Item Value Reference Range Interpretation [...] acute neurological disease, and persistent tachyarrhythmia.BASIC METABOLIC [id number] 08:27:00 Test Item Value Reference Range Interpretation [...] S NOT APPLICABLE FOR DIALYSIS PATIEN TS. [id number] 08:24:00 Test Item Value Reference Range Interpretation Comments MAGNESIUM (BEAKER) (test code = 2.4 mg/dL 1.6-2.6 627) CBC W/PLT COUNT & AUTO [id number] 08:17:00 Test Item Value Reference Range Interpretation [...]
--- NOTE | 2020-09-29 20:51 | RAD REPORT ---
EXAM DESCRIPTION: RAD - Shoulder Right 2 View - 09/29/2020 8:31 pm CLINICAL HISTORY: PAIN COMPARISON: Chest Single View dated 08/31/2020; Chest Single View dated 08/28/2020; Chest Single View dated 07/06/2020; Chest Single View dated 02/25/2020No comparisons FINDINGS: Mild AC joint and glenohumeral joint arthritic changes are present. Small acromial osteoph yte is seen. No acute fracture or dislocation evident.
--- NOTE | 2020-09-29 20:51 | RAD REPORT ---
EXAM DESCRIPTION: RAD - Chest Single View - 09/29/2020 8:31 pm CLINICAL HISTORY: CHEST PAIN Chest pain. COMPARISON: <Comparisons> FINDINGS: Portable technique limits examination quality. Mild to moderate pulmonary edema suspected. The heart is moderately enlarged in size. No displaced fr actures. IMPRESSION: Mild to moderate CHF.
--- NOTE | 2020-09-29 22:05 | RAD REPORT ---
EXAM DESCRIPTION: CT - Head C Spine Cap Wo Con - 09/29/2020 9:48 pm CLINICAL HISTORY: Trauma, head and neck injury. Chest, abdomen and pelvis pain. right chest pain and abdominal pain;Pain COMPARISON: Thorax Wo Con dated 08/31/2020 TECHNIQUE: CT head without contrast. CT cervical spine without contrast with coronal and sagittal reformatted images. CT chest, abdomen and pelvis without contrast with coronal and sagittal reformatted images of the spi ne. All CT scans are performed using dose optimization technique as appropriate and may include automated exposure control or mA/KV adjustment according to patient size. FINDINGS: CT HEAD WITHOUT CONTRAST: No intracranial hemorrhage, hydrocephalus or extra-axial fluid collection. Mild generalized brain atr ophy is present. No areas of brain edema or midline shift. Mild vertebral atherosclerosis. The paranasal sinuses and mastoids are clear. The calvarium is intact. CT CERVICAL SPINE WITHOUT CONTRAST: No fracture or subluxation. The prevertebral soft tissues are normal in thickness. CT CHEST, ABDOMEN, PELVIS WITHOUT CONTRAST: NOTE: Lack of contrast is a significant limitation in the assessment of trauma related findings. Spec ifically, solid organ, vascular and bowel evaluation is significantly limited. Areas of scarring seen in both upper lobes.No focal infiltrate is detected.Trace right pleural fluid is seen. No pneumothorax is present. The liver is mildly prominent in size. The spleen is also mildly prominent. The pancreas and adrenal glands are within normal limits. Atrophy of both kidneys is present. No bowel obstruction is present. No free fluid or free air seen. The skin and subcutaneous tissues of the left abdomen somewhat edematous which may represent anasarca. Moderate stool is seen retained th roughout the colon. Hardware is present in the lumbar spine with postsurgical changes present. . No acute fractures seen. Heavy atherosclerosis IMPRESSION: Mild hepatosplenomegaly. Mild anasarca. Moderate lumbar degenerative changes with hardware in place. Renal atrophy.
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
[2020-10-01 03:53] VITALS: BP 145/53; TEMP 98.1; O2SAT 96
== END 2020-09-29 22:48 | disposition home or self-care (01) ==
LOC: ER 19:15
DX: M25.511 Pain in right shoulder (principal); R07.89 Other chest pain; V53.5XXA Driver of pick-up truck or van injured in collision with car, pick-up truck or van in traffic accident, initial encounter; I12.0 Hypertensive chronic kidney disease with stage 5 chronic kidney disease or end stage renal disease; E11.22 Type 2 diabetes mellitus with diabetic chronic kidney disease; N18.6 End stage renal disease; Z99.2 Dependence on renal dialysis; J44.9 Chronic obstructive pulmonary disease, unspecified; K21.9 Gastro-esophageal reflux disease without esophagitis; E78.00 Pure hypercholesterolemia, unspecified; F17.210 Nicotine dependence, cigarettes, uncomplicated
CPT/HCPCS: 70450; 71045; 71250; 72125; 99283

== ENCOUNTER 2020-10-07 14:34 | Emergency (ER) | payer OTHER ==
--- OUTSIDE RECORDS SUMMARY | 2020-10-07 14:39 | XMS REPORT | Continuity of Care Document ---
:1955 Author Organization [facility] t Address [address] [place] [address] Care Team Providers Name Role Phone Moiz Montoya MD Primary Care Physician AIMEE Attending Clinician Unavailable MD JEANNINE Attending Clinician Unavailable JEANNINE Attending Clinician Unavailable Radiology Attending Clinician Unavailable Pob, Lab Main Attending Clinician Unavailable SALENA RUSSELL Attending Clinician Unavailable SWETHA PISANO Attending Clinician Unavailable LEANA KHALIL Attending Clinician Unavailable INGRIS DANIELSON Attending Clinician Unavailable ESMER KERN Attending Clinician Unavailable AIMEE Admitting Clinician Unavailable MD JEANNINE Admitting Clinician Unavailable THEODORE WEIR Admitting Clinician Unavailable Problems Condition Condition Condition Status Onset Resolution Last Treating Co mments Source Name Details Category Date Date Treatment Clinician Date Arterioven Arterioven Problem Active [facility] ous shunt ous Shunt 09-01 Fami ly in situ in Situ 00:00: Practic 00 e Hypertensi Hypertensi Problem Active [facility] ve heart ve Heart 07-22 Family AND renal and Renal 00:00: Prac tic disease Disease 00 e Diabetic Diabetic Problem Active Dorsey ge neuropathy Neuropathy 5-18 Fa alexia 00:00: Practic 00 e Overweight Overweight Problem Active [facility] 5-18 Family 00:00: Practic 00 e Body mass Body Mass Problem Active Milo tiffanie index Index -18 Family 25-29 - 25-29 - 00:00: Practic overweight Overweight 00 e Iron Iron Problem Active [place] deficiency Deficiency 18 Fa alexia anemia Anemia 00:00: Practic 00 e Insomnia Insomnia Problem Active Dorsey ge 5-18 Family 00:00: Practic 00 e Itching of Itching of Problem Active [facility] eye Eye 5-18 Family 00:00: Practic e Constipati Constipati Problem Active [facility] on on 5-18 Family 00:00: Practic e End stage End Stage Problem Active Milo tiffanie renal Renal 5-18 Family failure on Failure on 00:00: Pr actic dialysis Dialysis 00 e Hyperparat Hyperparat Problem Active [facility] hyroidism hyroidism 18 Fami ly due to Due to 00:00: Practic renal Renal 00 e insufficie Insufficie ncy ncy Osteoarthr Osteoarthr Problem Active [facility] itis itis -18 Family 00:00: Practic e Low back Low Back Problem Active [place] ge pain Pain 5-18 Family 00:00: Practic e Type 2 Type 2 Problem Active [facility] diabetes Diabetes 18 Family mellitus Mellitus 00:00: Practi c with with 00 e multiple Multiple complicati Complicati ons ons Chronic Chronic Problem Active [facility] hepatitis Hepatitis 1-07 Fami ly C C 00:00: Practic 00 e 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 Renal 1-07 Family disease Disease 00:00: Practic e Acute [...] hypertensi hypertensi 00:00: Me dical on on Center Cranial Cranial Disease Active [facility] neuropath[facility] neuropathi 04-02 [facility] kes - es, es, 00:00: Medical multiple multiple 00 Center Diplopia Diplopia Disease [facility] Center Hypertensi Hypertensi Disease Active [facility] on on 03-29 [facility] - 00:[facility]: Medical 00 Center Type 2 Type 2 Disease Active [facility] diabetes diabetes 1-24 Lumaurizio - mellitus mellitus 00:00: Medica l with renal with renal 00 Ce nter complicati complicati on on Immunity Immunity Disease Active Last [facility] S t status status 07-22 Assessguillaume Muñiz - testing testing 00:00: t [...] today. ESRD (end ESRD (end Disease Active [facility] St stage stage - Assessguillaume Muñiz - renal renal 00:00: t [...] with nephrolog y. Metabolic Metabolic Disease Active [facility] St syndrome syndrome 07-22 Assessguillaume Richards es - 00:00: t & Plan: Medical 00 With T2DM Center and hypertens ion, he meets criteria for metabolic syndrome. Managemen t per his PCP. Chronic Chronic Disease Active [facility] St hepatitis hepatitis 07-22 Assessguillaume Moreno ukes - C virus C [...] No further imaging needed at this time. Allergies, Adverse Reactions, Alerts Allergy Allergy Status Severity Reaction(s) Onset Inactive Treating Comm ents Source Name Type Date Date Clinician Crab Drug Active Itching Itching [facility] Allergy 1-26 in mouth, [facility] - 00:00: pt states Medical 00 okay with Center shrimp/cr awfish Social History Social Habit Start Date Stop Date Quantity Comments Source Sex Assigned At [facility] Alcohol intake 2018-06-05 2018-06-05 Current [facility] Susie es - 00:00:00 00:00:00 non-drinker of Medical Ce nter alcohol (finding) Alcohol Comment 2015-07-23 2015-07-23 [facility]; social Medical Cent er drinker Tobacco Comment 2015-03-31 2015-03-31 Quit 2006 [facility] Lucia kes - 00:00:00 00:00:00 [facility] Center Smoking Status Start Date Stop Date Source Light Tobacco Smoker [place] [facility] Practice Former smoker 2018-06-05 00:00:00 2018-06-05 00:00:00 [facility] Medications Ordered Filled Start Stop Current Ordering Indication Dosage Frequency Signature Comments Components Source Medication Medication Date Date Medication? Clinician (SIG) Name Name aspirin 81 2018- Yes 81mg QD Take [address] MG EC 4-02 by mouth [facility] - tablet 10:20: daily. [facility] 33 Center amLODIPine Yes 10mg Take [address] (NORVASC) 4-02 by mouth. [facility] - 10 MG 10:19: Medical tablet 56 Center cloNIDine 2018- Yes .2mg Q.5D Take 0.[address] [facility] [...] tablet hours as needed for Pain. tiZANidine 2018- Yes 4mg Q.5D Take [address] (ZANAFLEX) 4-02 by mouth 2 Susie es - 4 MG tablet 10:18: (two) Medic al 27 times Center daily. gabapentin 2018- Yes 100mg Q.5D Take [address] (NEURONTIN) 4-02 mg by [facility] - 300 MG 10:18: mouth 2 Medical capsule 27 (two) Center times daily . clopidogrel Yes 75mg QD Take [address] (PLAVIX) 75 4-02 by mouth Luke s - mg tablet 10:18: daily. Medica l 27 [place] lactulose Yes TAKE 20 [facility] (CHRONULAC) 3-26 GRAM [facility] - 10 gram/15 00:00: (30ML) BY Co dical mL solution 00 MOUTH ONCE Ce nter A DAY NEEDED zolpidem Yes TAKE [address] (AMBIEN) 10 2-21 TABLET [facility] - mg tablet 00:00: ORALLY AT Med ical 00 BEDTIME Center NEEDED atorvastati Yes 20mg Take [address] n (LIPITOR) 4-26 by mouth. Susie es - 20 MG 00:00: Medical tablet 00 [place] hydrALAZINE Yes 50mg Q.[id number] Take [address] (APRESOLINE 2-06 [id number] tablets [facility] - ) 25 MG 00:00: 3D (50 mg Medical tablet 00 total) by Center mouth 3 (three) times daily. pantoprazol Yes 40mg QD Take [address] e 2-06 tablet (40 [facility] - (PROTONIX) 00:00: mg total) Co dical 40 MG 00 by mouth Center [...] route. carvedilol carvedilol No 1 BID carvedilol [place] 6.25 mg 6.25 mg 6.25 mg Family tablet Take tablet Take tablet Practic 1 tablet 1 tablet Take 1 e twice a day twice a day tablet by oral by oral twice a route. route. day by oral route. clonidine clonidine No 1 BID clonidine [facility] HCl 0.2 mg HCl 0.2 mg HCl 0.2 mg Family tablet Take tablet Take tablet Practic 1 tablet 1 tablet Take 1 e twice a day twice a day tablet by oral by oral twice a route. route. day by oral route. gabapentin gabapentin No 1capsul TID gabapentin [facility] 100 mg 100 mg e(s) 100 mg Family capsule capsule capsule Practi c Take 1 Take 1 Take 1 e capsule 3 capsule 3 capsule 3 times a day times a day times a by oral by oral day by route. route. oral route. lactulose lactulose No 15mL Q1D lactulose [facility] 10 gram/15 10 gram/15 10 gram/15 Family mL (15 mL) mL (15 mL) mL (15 mL) Practic oral oral oral e solution solution solution Take 15 mL Take 15 mL Take 15 mL every day every day every day by oral by oral by oral route as route as route as directed. directed. directed. [place] 10 [place] 10 No 1 Q4H [place] 10 Milo tiffanie mg-325 mg mg-325 mg mg-325 mg Family tablet Take tablet Take tablet Practic 1 tablet 1 tablet Take 1 e every 4 every 4 tablet hours by hours by every 4 oral route oral route hours by as needed. as needed. oral route as needed. pravastatin pravastatin No 1 Q1D pravastati [facility] 40 mg 40 mg n 40 mg Family tablet Take tablet Take tablet Practic 1 tablet 1 tablet Take 1 e every day every day tablet by oral by oral every day route. route. by oral route. Renvela 800 Renvela 800 No 1 TID Renvela [facility] mg tablet mg tablet 800 mg Fam traci Take 1 Take 1 tablet Practic tablet 3 tablet 3 Take 1 e times a day times a day tablet 3 by oral by oral times a route. route. day by oral route. Sensipar 30 Sensipar 30 No 1 Q1D Sensipar [facility] mg tablet mg tablet 30 mg Fami ly Take 1 Take 1 tablet Practic tablet tablet Take 1 e every day every day tablet by oral by oral every day route. route. by oral route. sildenafil sildenafil No 1 Q1D sildenafil [facility] 100 mg 100 mg 100 mg Family tablet Take tablet Take tablet Practic 1 tablet 1 tablet Take 1 e every day every day tablet by oral by oral every day route. route. by oral route. tizanidine tizanidine No 1 Q6H tizanidine [facility] 4 mg tablet 4 mg tablet 4 [...] Source Name Name pneumococcal pneumococcal 2019-01-04 Completed [facility] Fa alexia conjugate PCV 13 conjugate PCV 13 00:00:00 Pr actice influenza, influenza, 2019-01-04 Completed [facility] injectable, injectable, 00:00:00 Practice quadrivalent quadrivalent PPD Test 2016-04-[address] [facility] - 00:00:00 [facility] Vital Signs Vital Name Observation Time Observation Value Comments Source Height 2019-09-03 00:00:00 66 [in_i] [facility] Height 2019-07-23 00:00:00 66 [in_i] [facility] BMI (Body Mass 2019-07-23 00:00:00 25.8 kg/m2 [facility] Family Index) Practice Body Weight 2019-07-23 00:00:00 160 [lb_av] [facility] Procedures This patient has no known procedures. Plan of Care Planned Activity Planned Date Details Comments Source Future Scheduled 2020-11-[address] [facility] - Test 00:00:00 (Season Ended) [code = [facility] INFLUENZA VACCINE (Season Ended)] Future Scheduled 2020-03-[address] [facility] - Test 00:00:00 (12+) [code = [facility] Center DEPRESSION SCREENING (12+)] Future Scheduled 2019-03-[address] [facility] - Test 00:00:00 (procedure) [code = [facility] 64438470] Future Scheduled 2016-09-[address] Lucia kes - Test 00:00:[address] [facility] (procedure) [code = 34870170] Future Scheduled 2016-06-[address] Susie es - Test 00:00:00 malignant neoplasm of [facility] colon (procedure) [code = 157082118] Future Scheduled 2015-03-[address] [facility] - Test 00:00:00 WELLNESS (YEAR 2 or Medical Center FIRST YEAR if no IPPE) [code = MEDICARE ANNUAL WELLNESS (YEAR 2 or FIRST YEAR if no IPPE)] Future Scheduled 2007-08-29 SHINGLES VACCINES ([address] [facility] - Test 00:00:00 of 2) [code = SHINGLES Medic al Center VACCINES (1 of 2)] Future Scheduled 1976 DTAP/TDAP/TD VACCINES [facility] - Test 00:00:00 (1 - Tdap) [code = Medical C enter DTAP/TDAP/TD VACCINES (1 - Tdap)] Future Scheduled 1969 COVID-19 VACCINE (1) [facility] - Test 00:00:00 [code = COVID-[address] VACCINE (1)] Future Scheduled 1967-08-29 DIABETIC EYE EXAM [facility] - Test 00:00:00 [code = DIABETIC EYE Medical Center EXAM] Future Scheduled 1967-08-[address] [facility] - Test 00:00:00 examination Medical Center (regime/therapy) [code = 466482988] Future Scheduled 1967-08-29 Urine screening for [facility] - Test 00:00:00 protein (procedure) Medical Center [code = 843245927] Future Scheduled 1963-08-[address] [facility] - Test 00:00:00 0-64 YRS (1 of 1 - Medical C enter PPSV23) [code = PNEUMOCOCCAL VACCINE 0-64 YRS (1 of 1 - PPSV23)] Encounters Start End Encounter Admission Attending Care Care Encounter Source Date/Time Date/Time Type Type Clinicians Facility Department ID 2019-12-09 2019-12-10 [facility] [id number] [place] 00:00:00 00:00:[address] 2019-12-05 2019-12-05 Outpatient JEANNINE, [facility] [id number] [place] 00:00:00 00:00:00 UTTAM [address] 2019-12-05 2019-12-05 Outpatient JEANNINE, [facility] [id number] [place] 00:00:00 00:00:00 UTTAM [address] 2019-10-10 2019-10-10 Hospital Radiology [facility] [id number] 12:34:44 23:59:00 Encounter Raza [id number] [place] [id number] [place] [id number] 2019-10-10 2019-10-10 Wood [employer] Rodney Steen [facility] [id number] 12:38:05 12:53:05 Visit Lab Main [place] [id number] [place] [id number] [facility] [phone] [address] 2019-09-03 2019-09-03 [facility] [place] - [id number] [place] 00:00:00 00:00:00 [facility] traci elkins, ALUMINUM MOLDER: Medical - Practi c [address] [email or web address] e [facility], [place] [address], [place] [address] , Ph. 2019-07-23 2019-07-23 [facility] [place] - [id number] [place] 00:00:00 00:00:00 [facility] traci elkins, ALUMINUM MOLDER: Medical - Practi c [address] [email or web address] e [facility], [place] [address], [place] [address] , Ph. Results Test Description Test Time Test Comments Results Result Comments Source SARS-CoV-2 (COVID-19) RNA [Presence] in Respiratory sp ecimen by 2019-12-05 21:13:34 DELMI with probe detection Test Item Value Reference Range Interpretation Comme nts SARS-CoV-2 (COVID-19) RNA [Presence] in Respiratory Not detected No t-Detected specimen by DELMI with probe detection (test code = 95419-7) SARS-COV2/RT-PCR ([facility])2019-10-04 22:28:00 Test Item Value Reference Range Interpretation Comments SARS-COV2/RT-PCR (test Negative Not Detected, Negative, code = 9428337) See external report for linked test SARS-COV-2 PERFORMING LAB [facility] SUZI (test code = 6247639) Negative result for this test determines that [...] 564(g) of the Act.Fact Sheet for Healthcare Providers:https://www.Xdynia.Embedly/sites/default/files/product/documents/Fact_Shee k_UX_Iwiulrkmn_Duji_DAGI-KtA-9.pdfFact Sheet for Healthcare Patients:https://www.Xdynia.com/sites/default/files/product/ documents/Yywr_Zobhr_Lszbeklw_Jpjx_RGNV-QeL-6.pdfPerforming Laboratory:[facility], [place] [address]DRSJ-CDS6/RT-PCR ([facility])2019-10-01 04:23:00 Test Item Value Reference Range Interpretation Comments SARS-COV2/RT-PCR (test code Negative Not Detected, Negative, = 4744479) See external report for linked test SARS-COV-2 PERFORMING LAB [facility] (test code = 2618199) Negative results do not preclude SARS-CoV-2 infection [...] of the Act.Fact Sheet for Healthcare Pro viders:https://www.IntuiLab/Documents/Xpert%20Xpress%20SARS%20CoV-2/Fact%20Sh eets/302-3802%12ZUZF-JSA-1%20HEALTHCARE%20PROVIDERS%20FACT%20SHEET.pdfFact Sheet for Healthcare Patients:https://www.fflap/Documents/Xpert%20Xpress%20SARS%20CoV-2/Fact%20Sheets/302-3801%20SARS-COV -2%20PATIENT%20FACT%20SHEET.pdfPerforming Laboratory:[facility] [place], [place] [address]pamela Chandra.[place], [place] [address]GAMYBUW IMAGING, MULTI, PHARM, SPECT 2019-02-21 15:54:00Referring: Dr. Schultz [facility]mort[facility] hospitalFINAL REPORT PROCEDURE: MYOCARDIAL PERFUSION SPECT IMAGING (Rest/Stress)CPT CODE: 01810 INDICATION: Renal transplant evaluation, hypertension, shortness of [...] MDReport Verified Date/Time: 02/21/2019 15:54:30 Reading Location: [address] Reading Room [id number] 17:11:00 Test Item Value Reference Range Interpretation Comments PROSTATE SPECIFIC ANTIGEN (BEAKER) 0.8 ng/mL 0.0-4.0 (test code = 844) HEPATITIS B SURFACE [id number] 17:11:00 Test Item Value Reference Range Interpretation Comments HEPATITIS B SURFACE ANTIBODY 612.9 mIU/mL <8.0 H (BEAKER) (test code = 647) PROTHROMBIN TIME/[id number] 14:59:00 Test Item Value Reference Range Interpretation Comments PROTIME (BEAKER) (test code = 15.6 seconds 11.7-14.7 H 759) INR (BEAKER) (test code = 370) 1.2 <=5.9 RECOMMENDED COUMADIN/WARFARIN INR THERAPY RANGESSTANDARD DOSE: 2.0 - 3.0 Includes: PROPHYLAXIS forvenous thrombosis, systemic embolization; TREATMENT for venous thrombosis and/or pulmonary embolus.HIGH RISK: Target INR is 2.5-3.5 for patients with mechanical heart valves.BASIC METABOLIC [id number] 14:58:00 Test Item Value Reference Range Interpretation [...] APPLICABLE FOR DIALYSIS PATIEN TS. HEPATIC FUNCTION [id number] 14:53:00 Test Item Value Reference Range Interpretation [...] 6-55 347) CBC W/PLT COUNT & AUTO [id number] 14:19:00 Test Item Value Reference Range Interpretation [...] = 2801) FLOW PRA CLASS I AND [id number] 12:02:00 Test Item Value Reference Range Interpretation Comments DATE OF SERUM (BEAKER) 381437 (test code = 2289) SERUM # (BEAKER) (test 307381 code = 2290) FLOW PRA CLASS I AND II See Scanned Report (test code = 2421) HEPATITIS B SURFACE [id number] 13:18:00 Test Item Value Reference Range Interpretation Comments HEPATITIS B SURFACE ANTIBODY < mIU/mL <8.0 (BEAKER) (test code = 647) [id number] 13:08:00 Test Item Value Reference Range Interpretation Comments PROSTATE SPECIFIC ANTIGEN (BEAKER) 0.9 ng/mL 0.0-4.0 (test code = 844) FLOW PRA CLASS I AND [id number] 16:00:00 Test Item Value Reference Range Interpretation Comments DATE OF SERUM (BEAKER) 476495 (test code = 2289) SERUM # (BEAKER) (test 230814 code = 2290) FLOW PRA CLASS I AND II See Scanned Report (test code = 2421) BASIC METABOLIC [id number] 15:51:00 Test Item Value Reference Range Interpretation [...] APPLICABLE FOR DIALYSIS PATIEN TS. HEPATIC FUNCTION [id number] 15:48:00 Test Item Value Reference Range Interpretation [...] 6-55 347) CBC W/PLT COUNT & AUTO [id number] 15:11:00 Test Item Value Reference Range Interpretation [...] (test code = 417) 0.00AFB CULTURE + [id number] 19:58:00 Test Item Value Reference Range Interpretation Comments CULTURE (BEAKER) (test No acid-fast bacilli code = 1095) isolated in 42 days AFB SMEAR (BEAKER) No acid fast bacilli (test code = 994) seen AFB CULTURE + [id number] 19:58:00 Test Item Value Reference Range Interpretation Comments CULTURE (BEAKER) (test No acid-fast bacilli code = 1095) isolated in 42 days AFB SMEAR (BEAKER) No acid fast bacilli (test code = 994) seen AFB CULTURE + [id number] 18:21:00 Test Item Value Reference Range Interpretation Comments CULTURE (BEAKER) (test No acid-fast bacilli code = 1095) isolated in 42 days AFB SMEAR (BEAKER) No acid fast bacilli (test code = 994) seen POCT-GLUCOSE [id number] 10:30:00 Test Item Value Reference Range Interpretation Comments POC-GLUCOSE METER 468 mg/dL 70-110 HH TESTED AT [facility] 6720 (BEAKER) (test code = JANICE STATON 1538) [address] CREATINE KINASE (CK), TOTAL AND [id number] 08:31:00 Test Item Value Reference Range Interpretation Comments CREATINE KINASE TOTAL (BEAKER) 42 U/L 29-200 (test code = 380) CREATINE KINASE-MB (BEAKER) (test 2.3 ng/mL 0.0-6.6 code = 750) CREATINE KINASE-MB INDEX (BEAKER) 5.5 % (test code = 395) Effective 01/21/2014: CK-MB Reference Range ChangeNew: 0.0-6.6 Previous: 0.0-4.9CK-MB Reference Range:<6.7 Normal6.7-10.0 Borderline>10.0 AbnormalTROPONIN [id number] 08:31:00 Test Item Value Reference Range Interpretation [...] acute neurological disease, and persistent tachyarrhythmia.BASIC METABOLIC [id number] 08:27:00 Test Item Value Reference Range Interpretation [...] S NOT APPLICABLE FOR DIALYSIS PATIEN TS. [id number] 08:24:00 Test Item Value Reference Range Interpretation Comments MAGNESIUM (BEAKER) (test code = 2.4 mg/dL 1.6-2.6 627) CBC W/PLT COUNT & AUTO [id number] 08:17:00 Test Item Value Reference Range Interpretation [...]
--- NOTE | 2020-10-07 19:14 | RAD REPORT ---
EXAM DESCRIPTION: RAD - Chest Single View - 10/07/2020 6:57 pm CLINICAL HISTORY: COUGH COMPARISON: Chest Single View dated 09/29/2020; Chest Single View dated 08/31/2020; Chest Single View dated 08/28/2020; Chest Single View dated 07/06/2020 FINDINGS: Vascular congestion suspected. No evidence of edema or pneumonia. The heart size is within normal limits.No acute osseous abnormality. No significant pleural effusions or pneumothorax. Spinal stimulator. IMPRESSION: Vascular congestion without alveolar edema.
[2020-10-07 19:18] LABS: Absolute Lymphocytes (CBC) 0.5 K/uL (0.7-4.9); Basophils % 1.2 % (0-1.3); Hematocrit 30.9 % (39.6-49.0); Lymphocytes % 10.6 % (15.3-44.8); MPV 8.9 fL (7.6-11.3); Protime INR 1.05; RBC Red Blood Cell Count 3.15 M/uL (4.33-5.43)
[2020-10-07 20:34] LABS: ALT/SGPT 20 U/L (12-78); AST/SGOT 19 U/L (15-37); Albumin 3.2 g/dL (3.4-5.0); Alkaline Phosphatase 334 U/L (45-117); BUN Blood Urea Nitrogen 26 mg/dL (7-18); Bicarbonate 27 mmol/L (21-32); Bilirubin Total 1.3 mg/dL (0.2-1.0); Glucose Level 138 mg/dL (74-106); Magnesium 2.4 mg/dL (1.8-2.4); Potassium 3.9 mmol/L (3.5-5.1); Protein, Total 7.6 g/dL (6.4-8.2); Sodium Level 137 mmol/L (136-145); Troponin (Emerg Dept Use Only) 0.03 ng/mL (0.0-0.045)
[2020-10-07 20:35] LABS: NT PRO-BNP > 175000 pg/mL (<125)
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
[2020-10-07] MEDS ORDERED: HYDRALAZINE HCL 20 MG/ML VIAL ONE (22:32)
[2020-10-07] MEDS ORDERED: HYDROCODONE/APAP 7.5/325 MG TAB ONE (22:32)
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
[2020-10-07] MEDS ORDERED: MORPHINE 4 MG/ML SYR ONE (23:26)
[2020-10-07] MEDS ORDERED: ONDANSETRON 4 MG/2 ML VIAL ONE (23:26)
[2020-10-08 01:15] VITALS: TEMP 97.2
[2020-10-08 01:19] VITALS: BP 199/84; O2SAT 95
== END 2020-10-07 23:12 | disposition home or self-care (01) ==
LOC: ER 14:34
DX: S30.1XXA Contusion of abdominal wall, initial encounter (principal); Z20.822 Contact with and (suspected) exposure to COVID-19; V49.49XA Driver injured in collision with other motor vehicles in traffic accident, initial encounter; E11.22 Type 2 diabetes mellitus with diabetic chronic kidney disease; I12.0 Hypertensive chronic kidney disease with stage 5 chronic kidney disease or end stage renal disease; N18.6 End stage renal disease; Z99.2 Dependence on renal dialysis
CPT/HCPCS: 93005; 85025; 80048; 36415; 83735; 85610; 80076; 84484; 83880; 70450; 72125; 71260; 74177; 71045; 96375; 96374; 99284; U0003; Q9967; J0360; J2405

== ENCOUNTER 2020-10-20 14:40 | Emergency (ER) | payer OTHER ==
--- OUTSIDE RECORDS SUMMARY | 2020-10-20 14:44 | XMS REPORT | Continuity of Care Document ---
:1955 Author Organization [facility] t Address [address] [place] [address] Care Team Providers Name Role Phone Moiz [...] Effective Expiration Source Number Date Date TEXANPLUSTEXANPLUS [id number] 2019 Method ist [id number] 2020-Pr 00:00:00 H ospital esentHMO Problems Condition Condition Condition Status Onset Resolution Last Treating Co mments Source Name Details Category Date Date Treatment Clinician Date PVD PVD Disease Active 2019-03 Methodi (periphera (periphera 0-06 st l vascular l vascular 00:00: Ho spita disease) disease) 00 l Bilateral Bilateral Disease Active 2019-03 Met [facility]odi atheroscle atheroscle 0-05 st rotic rotic 00:00: Hospita renal renal 00 l artery artery stenosis stenosis Arterioven Arterioven Problem [...] e Type 2 Type 2 Problem Active [facility] diabetes Diabetes 5-18 Family mellitus Mellitus 00:00: Practi c with with 00 e multiple Multiple complicati Complicati ons ons Chronic Chronic Problem Active [facility] hepatitis Hepatitis 1-07 Fami ly C [...] d organism d organism 00:00: Me dical Center Uncontroll Uncontroll Disease Active C HI [...] on on Immunity Immunity Disease [facility] [...] Active [facility] stage stage 5-19 Assessmen Mary Kay [...] per his PCP. Chronic Chronic Disease Active Last [facility] hepatitis hepatitis - Assessmen Tiffanie hernandez - C virus C virus 00:00: t [...] Drug Active Itching Itching [facility]31 [facility] Medical 00 okay with Center shrimp/cr awfish Family History Family Member Diagnosis Comments Start Date Stop Date Source Natural father Other [facility] Natural mother Dementia [facility] Social History Social Habit Start Date Stop Date Quantity Comments Source History of tobacco Cigarette Smoker [facility] Cigarettes smoked 2019-12-10 2019-12-[address] current [facility] - Reported Tobacco use and 2019-12-10 2019-12-10 Never used [facility] 00:00:00 00:00:00 Hospital Alcohol intake 2019-12-10 2019-12-10 Ex-drinker [facility] 00:00:00 00:00:00 (finding) Hospital Alcohol Comment 2015-07-23 2015-07-[address] [facility] - 00:[facility]:00 00:00:00 2005; [facility] er drinker Tobacco Comment 2015-03-31 2015-03-31 Quit 2006 [facility] 00[facility]00 [facility] Center Sex Ass[birth year] At [birth year] [facility] 00:[facility] 00:[facility]:00 Hospital Smoking Status Start Date Stop Date Source Light Tobacco [facility] Current every day 2019-12-10 00:00:00 [facility] smoker Former smoker 2018-06-05 00:00:00 2018-06-05 00:00:00 [facility] Medications Ordered Filled Start Stop Current Ordering Indication Dosage Frequency Signature Comments Components Source Medication Medication Date Date Medication? Clinician (SIG) Name Name aspirin 81 2019-03- No 81mg QD Chew 1 Meth michelle mg chewable 0-07 11-07 tablet (81 s t tablet 00:00: 05:59 mg total) Hospi ta 00 :00 daily for l 30 days. clopidogreL 2019-03- No 75mg QD Take 1 Met hodi (PLAVIX) 75 0-07 11-07 tablet (75 s t mg tablet 00:00: 05:59 mg total) Ho spita 00 :00 by mouth l daily for 30 days. clopidogreL 2019-03- No 75mg QD Take 1 Met hodi (PLAVIX) 75 0-07 10-06 tablet (75 s t mg tablet 00:00: 00:00 mg total) Ho spita 00 :00 by mouth l daily for 30 days. HYDROcodone 2019-03 Yes [id number] 1{tbl} Q6H Take 1 M ethodi -acetaminop 0-[address] hen (NORCO) 21:07: mouth Hospi ta 10-325 mg 01 every 6 l per tablet (six) hours as needed for moderate pain .acute pain. ferric 2019-03 Yes Take by Methodi citrate 0-[address] (AURYXIA 21:07: Hospita ORAL) 01 l doxazosin 2019-03 Yes 2mg QD Take 2 mg Met hodi (CARDURA) 2 0-[address] MG tablet 21:07: nightly. Hosp hector 01 l carvediloL 2019-03 Yes 6.25mg Q.5D Take 6.25 Methodi (COREG) 0-[address] 6.25 MG 21:07: mouth 2 Hospita tablet 01 (two) l times a day with meals. cinacalcet 2019-03 Yes 30mg QD Take 30 mg M ethodi (SENSIPAR) 0-[address] 30 MG 21:07: daily. Hospita tablet 01 l clonIDINE 2019-03 Yes .2mg Q.5D Take 0.2 Meth michelle HCl 0-[address] (CATAPRES) 21:07: mouth 2 Hosp hector 0.2 MG 01 (two) l tablet times a day. gabapentin 2019-03 Yes 100mg Q.[id number] Take 100 Methodi (NEURONTIN) 0-06 [id number] mg by s t 100 mg 21:07: 3D mouth 3 Hospita capsule 01 (three) l times a day. calcium 2019-03 Yes Take by Method[facility] acetate 0-[address] (PHOSLO 21:07: Hospita ORAL) 01 l pravastatin 2019-03 Yes 40mg QD Take 40 mg Methodi (PRAVACHOL) 0-[address] 40 mg 21:07: daily. Hospita tablet 01 l folic 2019-03 Yes Take by Methodi acid/vit B 0-[address] complex and 21:07: Hospit a C 01 l (CORAL-HAMIDA ORAL) tiZANidine 2019-03 Yes 4mg Q8H Take 4 mg Me thodi (ZANAFLEX) 0-[address] 4 MG tablet 21:07: every 8 Hos john 01 (eight) l hours as needed for muscle spasms. calcium 2019-03 Yes Take by Methodi carbonate 0-[address] (TUMS ORAL) 21:07: Hospit a 01 l zolpidem 2019-03 Yes 10mg QD Take 10 mg Met hodi (AMBIEN) 10 0-[address] mg tablet 21:07: nightly as Ho spita 01 needed for l sleep. tamsulosin 2019-03- No .4mg QD Take 0.4 Me thodi (FLOMAX) 0-01 10-[address] 0.4 mg 17:44: 00:00 mouth Hospita capsule 24 :00 daily. l finasteride 2019-03 2020- No 5mg QD Take 5 mg Methodi (PROSCAR) 5 0- 10- by mouth st mg tablet 17:44: 00:00 daily. Hospi ta 21 :00 l tiZANidine 2019-03 2020- No 2mg Q8H Take 2 mg M ethodi (ZANAFLEX) 0-01 10-[address] 2 MG tablet 17:43: 00:00 every 8 Ho spita 54 :00 (eight) l hours as needed for muscle spasms. aspirin 81 2018- Yes 81mg QD Take [address] MG EC 4-02 by mouth [facility] - tablet 10:20: daily. Medical 33 Center amLODIPine 2019- Yes 10mg Take [address] (NORVASC) 4-02 by mouth. [facility] - 10 MG 10:19: Medical tablet 56 Center cloNIDine 2019-0 Yes .2mg Q.5D Take 0.[address] HCl 4-02 mg by [facility] - (CATAPRES) 10:18: mouth 2 Medi nataly 0.2 MG 27 (two) Center tablet times daily . HYDROcodone 2019- Yes 1{tbl} Take [address] [...] ONCE Ce nter A DAY NEEDED zolpidem 2018- Yes TAKE [address] (AMBIEN) 10 2-21 TABLET [facility] - mg tablet 00:00: ORALLY AT Med ical 00 BEDTIME Center NEEDED atorvastati Yes 20mg Take [address] n (LIPITOR) 4-26 by mouth. Susie es - 20 MG 00:00: Medical tablet 00 Center hydrALAZINE Yes 50mg Q.[id number] Take [address] (APRESOLINE 2-06 [id number] tablets [facility] - ) 25 MG 00:00: [...] route. carvedilol carvedilol No 1 BID carvedilol [facility] 6.25 mg 6.25 mg 6.25 mg Family tablet Take tablet Take tablet Practic 1 tablet 1 tablet Take 1 e twice a day twice a day tablet by oral by oral twice a route. route. day by oral route. clonidine clonidine No 1 BID clonidine [facility] HCl 0.2 mg HCl 0.2 mg HCl 0.2 mg Family tablet Take tablet Take tablet Practic 1 tablet 1 tablet Take 1 e twice a day twice a day tablet by oral by oral twice a route. route. day by oral route. gabapentin gabapentin No 1capsul TID gabapentin [facility] 100 mg 100 mg e(s) 100 mg Family capsule capsule capsule Practi c Take 1 Take 1 Take 1 e capsule 3 capsule 3 capsule 3 times a day times a day times a by oral by oral day by route. route. oral route. lactulose lactulose No 15mL Q1D lactulose [facility] 10 gram/15 10 gram/15 10 gram/15 Family mL (15 mL) mL (15 mL) mL (15 mL) Practic oral oral oral e solution solution solution Take 15 mL Take 15 mL Take 15 mL every day every day every day by oral by oral by oral route as route as route as directed. directed. directed. Drury 10 Drury 10 No 1 Q4H Drury 10 [place] tiffanie mg-325 mg mg-325 mg mg-325 mg Family tablet Take tablet Take tablet Practic 1 tablet 1 tablet Take 1 e every 4 every 4 tablet hours by hours by every 4 oral route oral route hours by as needed. as needed. oral route as needed. pravastatin pravastatin No 1 Q1D pravastati [facility] 40 mg 40 mg n 40 mg Family tablet Take tablet Take tablet Practic 1 tablet 1 tablet Take 1 e every day every day tablet by oral by oral every day route. route. by oral route. Renvela 800 Renvela 800 No 1 TID Renvela [facility] mg tablet mg tablet 800 mg Fam traci Take 1 Take 1 tablet Practic tablet 3 tablet 3 Take 1 e times a day times a day tablet 3 by oral by oral times a route. route. day by oral route. Sensipar 30 Sensipar 30 No 1 Q1D Sensipar [facility] mg tablet mg tablet 30 mg Fami ly Take 1 Take 1 tablet Practic tablet tablet Take 1 e every day every day tablet by oral by oral every day route. route. by oral route. sildenafil sildenafil No 1 Q1D sildenafil [facility] 100 mg 100 mg 100 mg Family tablet Take tablet Take tablet Practic 1 tablet 1 tablet Take 1 e every day every day tablet by oral by oral every day route. route. by oral route. tizanidine tizanidine No 1 Q6H tizanidine [facility] 4 mg tablet 4 mg tablet 4 mg F amily Take 1 Take 1 tablet Practic tablet tablet Take 1 e every 6 every 6 tablet hours by hours by every 6 oral route oral route hours by as as oral route directed. directed. as directed. zolpidem 10 zolpidem 10 No 1 Q1D zolpidem [facility] mg tablet mg tablet 10 mg Fami ly Take 1 Take 1 tablet Practic tablet tablet Take 1 e every day every day tablet by oral by oral every day route at route at by oral bedtime. bedtime. route at bedtime. Immunizations Ordered Immunization Filled Immunization Date Status Commen ts Source Name Name pneumococcal pneumococcal 2019-01-04 Completed [facility] Fa alexia conjugate PCV 13 conjugate PCV 13 00:00:00 Pr actice influenza, influenza, 2019-01-04 Completed [facility] Family injectable, injectable, 00:00:00 Practice quadrivalent quadrivalent PPD Test 2016-04-03 Completed [facility] - 00:00:00 Medical Center Vital Signs Vital Name Observation Time Observation Value Comments Source Height 2019-09-03 00:00:00 66 [in_i] [facility] Height 2019-07-23 00:00:00 66 [in_i] [facility] BMI (Body Mass 2019-07-23 00:00:00 25.8 kg/m2 [facility]) Practice Body Weight 2019-07-23 00:00:00 160 [lb_av] [facility] Systolic blood 2019-12-10 19:40:00 206 mm[Hg] [facility] pressure Diastolic blood 2019-12-10 19:40:00 88 mm[Hg] [facility] pressure Heart rate 2019-12-10 19:40:00 69 /min [facility] Body temperature 2019-12-10 17:15:24 37.11 Idalia [facility] Respiratory rate 2019-12-10 17:15:24 16 /min [facility] Oxygen saturation in 2019-12-10 17:15:24 96 /min [facility] Arterial blood by Pulse oximetry Body weight 2019-12-10 11:00:00 72.848 kg [facility] BMI 2019-12-10 11:00:00 25.92 kg/m2 [facility] Body height 2019-12-09 21:00:00 167.6 cm [facility] Procedures Procedure Date / Time Performing Clinician Source Performed ECG 12-LEAD 2019-12-10 19:01:00 [facility] TROPONIN 2019-12-10 17:50:00 [facility] BASIC METABOLIC PANEL 2019-12-10 10:33:00 [facility] ESTIMATED GFR 2019-12-10 10:33:00 [facility] HEMODIALYSIS 2019-12-10 01:17:14 Skyler Rand Ho spital OR FL < 1 HOUR 2019-12-10 00:26:47 Martita Corral spital HEPATITIS B SURFACE 2019-12-10 00:13:00 [facility] ANTIGEN HEPATITIS B SURFACE AB, 2019-12-10 00:13:00 Skyler Rand [facility] QUANTITATIVE HEMODIALYSIS 2019-12-09 21:51:41 Skyler Rand Ho spital HEMODIALYSIS 2019-12-09 21:09:37 Skyler Rand spital POC GLUCOSE 2019-12-09 21:02:00 [facility] spital [place] AN ELECTIVE 2019-12-09 18:56:58 Antonieta Lawrence [facility] SUPRAGLOTTIC AIRWAY AORTOGRAPHY, POSSIBLE 2019-12-09 18:47:00 [facility] ANGIOPLASTY POC GLUCOSE 2019-12-09 17:42:00 Shayna Ksethan [facility] POC PANEL 2019-12-09 15:37:00 [facility] Ho spital COMPREHENSIVE METABOLIC 2019-12-09 15:32:00 [facility] PANEL TYPE AND SCREEN 2019-12-09 15:32:00 Binu Wilson ESTIMATED GFR 2019-12-09 15:32:00 [facility] XR CHEST 2 VW 2019-12-05 18:38:59 [facility] Ho spital ECG PRE/POST OP 2019-12-05 18:07:15 [facility] Ho spital PROTHROMBIN TIME WITH INR 2019-12-05 17:45:00 [facility] PARTIAL THROMBOPLASTIN 2019-12-05 17:45:00 [facility] TIME (PTT) COVID-19 QUALITATIVE 2019-12-05 17:37:00 [facility] RT-PCR HC COMPLETE BLD COUNT 2019-12-05 17:36:00 [facility] W/AUTO DIFF HEMOGLOBIN A1C 2019-12-05 17:36:00 Binu Wilson Plan of Care Planned Activity Planned Date Details Comments Source Future Scheduled 2020-11-[address] [facility] - Test 00:00:00 (Season Ended) [code = [facility] INFLUENZA VACCINE (Season Ended)] Future Scheduled 2020-03-[address] [facility] - Test 00:00:00 (12+) [code = Medical Center DEPRESSION SCREENING (12+)] Future Scheduled 2019-03-[address] [facility] - Test 00:00:00 (procedure) [code = [facility] 35665460] Future Scheduled 2016-09-[address] [facility] - Test 00:00:00 measurement Medical Center (procedure) [code = 71589418] Future Scheduled 2016-06-[address] [facility] - Test 00:00[facility]00 [facility] colon (procedure) [code = 813056163] Future Scheduled 2015-03-[address] [...] 00:00:00 examination Medical Center (regime/therapy) [code = 893042756] Future Scheduled 1967-08-29 Urine screening for [facility] - Test 00:00:00 protein (procedure) Medical Center [code = 786407292] Future Scheduled 1961-08-[address] [facility] - Test 00:00:00 0-64 YRS (1 of 1 - Medical C enter PPSV23) [code = PNEUMOCOCCAL VACCINE 0-64 YRS (1 of 1 - PPSV23)] Future Scheduled DIABETES: RETINAL EYE [facility] Test EXAM [code = DIABETES: RETINAL EYE EXAM] Future Scheduled DIABETIC FOOT EXAM [facility] Test [code = DIABETIC FOOT EXAM] Future Scheduled COVID-19 VACCINE (1) [facility] Test [code = COVID-19 VACCINE (1)] Future Scheduled COLONOSCOPY SCREENING [facility] Test [code = COLONOSCOPY SCREENING] Future Scheduled SHINGLES VACCINES (#1) [facility] [code = SHINGLES VACCINES (#1)] Future Scheduled INFLUENZA VACCINE [facility] Test [code = INFLUENZA VACCINE] Encounters Start End Encounter Admission Attending Care Care Encounter Source Date/Time Date/Time Type Type Clinicians Facility Department ID 2020-05-21 2020-05-21 Telephone Gary, 1.2.840.1 [id number] Methodi 00:00:00 00:00:[address] Brian 3.430.2.7 Hospi ta .3.175660 l .8 2019-12-09 2019-12-10 [facility] 1.2.840.1 [id number] Methodi 09:56:00 16:06:00 Encounter Solange Headley [facility] [address]7865.1.[address] 3.430.2.7 Hospit a .3.262287 l .8 2019-12-09 2019-12-10 Outpatient SOLANGE HEADLEY [facility] [id number] [place] 00:00:00 00:00:[address] 2019-12-09 2019-12-09 Anesthesia Sameer Donohue 1.2.840.1 [id number] Methodi 13:47:00 16:02:00 Event Elvie Larkin 94921.1.[address] 3.430.2.7 Hospit a .3.749064 l .8 2019-12-09 2019-12-09 Surgery [facility] 1.2.840.1 [id number] Methodi 13:10:00 14:55:[address] 3.430.2.7 Hospit a .3.281380 l .8 2019-12-05 2019-12-05 [place] [address].2.840.1 [id number] Methodi 13:17:37 23:59:00 Encounter Ksta 42038.1.[address] 3.430.2.7 Hospit a .3.451432 l .8 2019-12-05 2019-12-05 Pre-Admiss Shayna, 1.2.840.1 [id number] 2 [id number] Methodi 12:02:21 13:02:21 ion Uttam 13012.1.[address] Testing 3.430.2.7 Hospit a .3.103218 l .8 2019-12-05 2019-12-05 Outpatient SHAYNA, [facility] [id number] [place] 00:00:00 00:00:00 UTTAM [address] 2019-12-05 2019-12-05 Outpatient SHAYNA, [facility] [id number] [place] 00:00:00 00:00:00 UTTAM [address] 2019-12-05 2019-12-05 Travel 1.2.840.1 1.2.372.345 [id number] Methodi 00:00:00 00:00:[address] 3.430.2.7 0.2.7.3.698 Ho spita .3.929880 084.8 l .8 2019-11-29 2019-11-29 Travel 1.2.840.1 1.2.312.699 [id number] Methodi 00:00:00 00:00:[address] 3.430.2.7 0.2.7.3.698 Ho spita .3.055782 084.8 l .8 2019-11-05 2019-11-05 Travel 1.2.840.1 1.2.285.361 2041 [id number] Methodi 00:00:00 00:00:[address] 3.430.2.7 0.2.7.3.698 Ho spita .3.621879 084.8 l .8 2019-10-25 2019-10-25 Travel 1.2.840.1 1.2.751.998 [id number] Methodi 00:00:00 00:00:[address] 3.430.2.7 0.2.7.3.698 Ho spita .3.966350 084.8 l .8 2019-10-21 2019-10-21 Travel 1.2.840.1 1.2.953.137 [id number] Methodi 00:00:00 00:00:[address] 3.430.2.7 0.2.7.3.698 Ho spita .3.851164 084.8 l .8 2019-10-10 2019-10-10 Hospital Radiology [facility] 1.2.840.114 [id number] 12:34:44 23:59:00 Encounter Raza 350.1.13.10 [place] 4.2.7.2.686 [place] [id number] 2019-10-10 2019-10-10 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 2019-07-23 2019-07-23 Veronica [facility] [place] - [id number] [place] 00:00:00 00:00:00 [facility] traci elkins FURNITURE UPHOLSTERER: Steven crowley [email or web address] [address], [place] [address] , Ph. Results Test Description Test Time Test Comments Results Result Comments Source ECG 12 lead 2019-12-10 21:17:46 Test Item Value Reference Range Interpretation Comme nts Ventricular rate (test code = 253) Atrial rate (test code = 255) WV interval (test code = 266) QRSD interval (test code = 260) QT interval (test code = 264) QTC interval (test code = 265) P axis 1 (test code = 267) QRS axis 1 (test code = 268) T wave axis (test code = 270) EKG impression (test code = 273) [facility] 1 [id number] 00:38:18EXAMINATION: OR FL < 1 HOUR CLINICAL HISTORY: None provided. IMPRESSION: 1. Fluoroscopy was provided in the operating. I was not present during the procedure.2. Please refer to the operative reportfor findings.3. Total Dose: 114 fluoroscopic images. 27.1 minutes of fluoroscopy time. Interface,Radiology Results Incoming - 12/09/2019 7:41 PM CDT EXAMINATION: OR FL < 1 HOURCLINICAL HISTORY: None provided.IMPRESSION:1. Fluoroscopywas provided in the operating. I was not present during the procedure.2. Please refer to the operative report for findings.3. Total Dose: 114 fluoroscopic images. 27.1 minutes of fluoroscopy time.[facility]2020-10-05 18:56:58WeAntonieta kingsley CRNA 12/09/2019 1:57 PMAirway Date/Time: 12/09/2019 1:57 PMPerformed by: Antonieta Lawrence CRNAAuthorized by: Sameer Donohue MD Location: ORUrgency: ElectiveDifficult Airway: No Anesthesiologist: Sameer Donohue MDResident/GRANITE CHIP TERRAZZO FINISHER/AA: Antonieta Lawrence CRNAPerformed by: resident/GRANITE CHIP TERRAZZO FINISHER/AAPreoxygenated with 100% O2: Yes C-spine Precautions Maintained Throughout: Yes Mask Ventilation: Not attemptedFinal Airway Type: Supraglottic airwayFinal LMA: I-GelLMA Size: 4Number of Attempts at Approach: 1[facility] Pre/Post [id number] 05:44:14 Test Item Value Reference Range Interpretation Comments Ventricular rate (test code = 253) Atrial rate (test code = 255) WV interval (test code = 266) QRSD interval (test code = 260) QT interval (test code = 264) QTC interval (test code = 265) P axis 1 (test code = 267) QRS axis 1 (test code = 268) T wave axis (test code = 270) EKG impression (test Normal sinus code = 273) rhythm-Possible Left atrial enlargement-Left axis deviation-Anterior infarct , age undetermined-Abnormal ECG-No previous ECGs available-Electronica lly Signed By Evelyn Baker MD ([id number]) on 12/06/2019 12:44:11 AM [facility] 2 [id number] 21:56:18EXAMINATION: XR CHEST 2 VW CLINICAL HISTORY: Z01.818 Encounter for other preprocedural examination, PRE OP COMPARISON: None. IMPRESSION: Heart and mediastinum: Cardiomediastinal silhouette is prominent. Atherosclerotic calcifications of the aortic arch. Lungs and pleura: There is no focal airspace disease, pleural effusion or pneumothorax. Bones: No acute abnormality. Spinal cord stimulator deviceseen overlying the thoracic spine. [facility]-[id number] Dictated and approved by vice president pharmacy/fellow: Joseph Malik M.D. I, Daniel Abbott, personally reviewed the images and resident's/fellow's findings and agree with the final report.[facility], Radiology Results Incoming - 12/05/2019 4:59 PM CDT EXAMINATION: XR CHEST 2 VWCLINICAL HISTORY: Z01.818 Encounter for other preprocedural examination, PRE OPCOMPARISON: None.IMPRESSION:Heart and mediastinum: Cardiomediastinal silhouette is prominent. Atherosclerotic calcifications of the aortic arch.Lungs and pleura: There is no focal airspace disease, pleural effusion or pneumothorax.Bones: No acute abnormality.Spinal cord stimulator device seen overlying the thoracic spine.[facility]-[id number] and approved by vice president pharmacy/fellow: Nate Schmitz, Daniel Abbott, personallyreviewed the images and resident's/fellow's findings and agree with the final report. [facility] [Presence] in Respiratory specimen by DELMI with probe [id number] 21:13:34 Test Item Value Reference Range Interpretation Comments SARS-CoV-2 (COVID-19) RNA Not detected Not-Detected [Presence] in Respiratory specimen by DELMI with probe detection (test code = 92232-8) SARS-COV2/RT-PCR ([facility])2019-10-04 22:28:00 Test Item Value Reference Range Interpretation Comments SARS-COV2/RT-PCR (test Negative Not Detected, Negative, code = 6713188) See external report for linked test SARS-COV-2 PERFORMING LAB [facility] SUZI (test code = 9809695) Negative result for this test determines that [...] 564(g) of the Act.Fact Sheet for Healthcare Providers:https://www.Embrane.Click Bus/sites/default/files/product/documents/Fact_Shee i_ZL_Ntwwvzobk_Otbr_SKDR-UhH-8.pdfFact Sheet for Healthcare Patients:https://www.Embrane.Click Bus/sites/default/files/product/ documents/Kkuy_Edcgq_Oubudyid_Eqle_VWIT-AsF-3.pdfPerforming Laboratory:[facility], [place] [address]LPWN-NCM2/RT-PCR ([facility])2019-10-01 04:23:00 Test Item Value Reference Range Interpretation Comments SARS-COV2/RT-PCR (test code Negative Not Detected, Negative, = 9738609) See external report for linked test SARS-COV-2 PERFORMING LAB [facility] (test code = 2990512) Negative results do not preclude SARS-CoV-2 infection [...] of the Act.Fact Sheet for Healthcare Pro viders:https://www.HealthTeacher / GoNoodle.Click Bus/Documents/Xpert%20Xpress%20SARS%20CoV-2/Fact%20Sh eets/3023802%26TFEC-XWC-1%20HEALTHCARE%20PROVIDERS%20FACT%20SHEET.pdfFact Sheet for Healthcare Patients:https://www.QBuy id.Click Bus/Documents/Xpert%20Xpress%20SARS%20CoV-2/Fact%20Sheets/3023801%20SARS-COV -2%20PATIENT%20FACT%20SHEET.pdfPerforming Laboratory:[facility], [place] [address]HXEGDYH IMAGING, MULTI, PHARM, SPECT 2019-02-21 15:54:00Referring: [facility]. Schultz [facility]EDURE: MYOCARDIAL PERFUSION SPECT IMAGING (Rest/Stress)CPT CODE: 00747 INDICATION: Renal transplant evaluation, hypertension, shortness of [...] Darnell Verified Date/Time: 02/21/2019 15:54:30 Reading Location: [address] Reading Room [id number] 17:11:00 Test Item Value Reference Range Interpretation Comments PROSTATE SPECIFIC ANTIGEN (BEAKER) 0.8 ng/mL 0.0-4.0 (test code = 844) HEPATITIS B SURFACE [id number] 17:11:00 Test Item Value Reference Range Interpretation Comments HEPATITIS B SURFACE ANTIBODY 612.9 mIU/mL <8.0 H (BEAKER) (test code = 647) PROTHROMBIN TIME/[id number] 14:59:00 Test Item Value Reference Range Interpretation Comments PROTIME (BEAKER) (test code = 15.6 seconds 11.7-14.7 H 759) INR (BEAKER) (test code = 370) 1.2 <=5.9 RECOMMENDED COUMADIN/WARFARIN INR THERAPY RANGESSTANDARD DOSE: 2.0 - 3.0 Includes: PROPHYLAXIS forvenous thrombosis, systemic embolization; TREATMENT for venous thrombosis and/or pulmonary embolus.HIGH RISK: Target INR is 2.5-3.5 for patients with mechanical heart valves.BASIC METABOLIC [id number] 14:58:00 Test Item Value Reference Range Interpretation [...] APPLICABLE FOR DIALYSIS PATIEN TS. HEPATIC FUNCTION [id number] 14:53:00 Test Item Value Reference Range Interpretation [...] 6-55 347) CBC W/PLT COUNT & AUTO [id number] 14:19:00 Test Item Value Reference Range Interpretation [...] = 2801) FLOW PRA CLASS I AND [id number] 12:02:00 Test Item Value Reference Range Interpretation Comments DATE OF SERUM (BEAKER) 9110312 (test code = 2288) SERUM # (BEAKER) (test 426576 code = 2290) FLOW PRA CLASS I AND II See Scanned Report (test code = 2421) HEPATITIS B SURFACE [id number] 13:18:00 Test Item Value Reference Range Interpretation Comments HEPATITIS B SURFACE ANTIBODY < mIU/mL <8.0 (BEAKER) (test code = 647) [id number] 13:08:00 Test Item Value Reference Range Interpretation Comments PROSTATE SPECIFIC ANTIGEN (BEAKER) 0.9 ng/mL 0.0-4.0 (test code = 844) FLOW PRA CLASS I AND [id number] 16:00:00 Test Item Value Reference Range Interpretation Comments DATE OF SERUM (BEAKER) 6040312 (test code = 228) SERUM # (BEAKER) (test 856205 code = 2290) FLOW PRA CLASS I AND II See Scanned Report (test code = 2421) BASIC METABOLIC [id number] 15:51:00 Test Item Value Reference Range Interpretation [...] APPLICABLE FOR DIALYSIS PATIEN TS. HEPATIC FUNCTION [id number] 15:48:00 Test Item Value Reference Range Interpretation [...] 6-55 347) CBC W/PLT COUNT & AUTO [id number] 15:11:00 Test Item Value Reference Range Interpretation [...] (test code = 417) 0.00AFB CULTURE + [id number] 19:58:00 Test Item Value Reference Range Interpretation Comments CULTURE (BEAKER) (test No acid-fast bacilli code = 1095) isolated in 42 days AFB SMEAR (BEAKER) No acid fast bacilli (test code = 994) seen AFB CULTURE + [id number] 19:58:00 Test Item Value Reference Range Interpretation Comments CULTURE (BEAKER) (test No acid-fast bacilli code = 1095) isolated in 42 days AFB SMEAR (BEAKER) No acid fast bacilli (test code = 994) seen AFB CULTURE + [id number] 18:21:00 Test Item Value Reference Range Interpretation Comments CULTURE (BEAKER) (test No acid-fast bacilli code = 1095) isolated in 42 days AFB SMEAR (BEAKER) No acid fast bacilli (test code = 994) seen POCT-GLUCOSE [id number] 10:30:00 Test Item Value Reference Range Interpretation Comments POC-GLUCOSE METER 468 mg/dL 70-110 HH TESTED AT [facility] [address] ([facility]) (test code = [place] 1538) [address] CREATINE KINASE (CK), TOTAL AND [id number] 08:31:00 Test Item Value Reference Range Interpretation Comments CREATINE KINASE TOTAL (BEAKER) 42 U/L 29-200 (test code = 380) CREATINE KINASE-MB (BEAKER) (test 2.3 ng/mL 0.0-6.6 code = 750) CREATINE KINASE-MB INDEX (BEAKER) 5.5 % (test code = 395) Effective 01/21/2014: CK-MB Reference Range ChangeNew: 0.0-6.6 Previous: 0.0-4.9CK-MB Reference Range:<6.7 Normal6.7-10.0 Borderline>10.0 AbnormalTROPONIN [id number] 08:31:00 Test Item Value Reference Range Interpretation [...] acute neurological disease, and persistent tachyarrhythmia.BASIC METABOLIC [id number] 08:27:00 Test Item Value Reference Range Interpretation [...] S NOT APPLICABLE FOR DIALYSIS PATIEN TS. [id number] 08:24:00 Test Item Value Reference Range Interpretation Comments MAGNESIUM (BEAKER) (test code = 2.4 mg/dL 1.6-2.6 627) CBC W/PLT COUNT & AUTO [id number] 08:17:00 Test Item Value Reference Range Interpretation [...]
--- NOTE | 2020-10-20 20:27 | RAD REPORT ---
EXAM DESCRIPTION: RAD - Chest Single View - 10/20/2020 8:12 pm CLINICAL HISTORY: COUGH COMPARISON: Abdomen Pelvis W Contrast dated 03/23/2020; Abdomen Pelvis W Contrast dated 0; CT ABD PELVIS W CONTRAST dated 10/23/2008Chest Single View dated 10/07/2020; Chest Single View dated 09/29/2020; Chest Single View dated 08/31/2020; Chest Single View dated 08/28/2020 FINDINGS: Vascular congestion without consolidative airspace disease Similar cardiomegaly.No acute o sseous abnormality. No significant pleural effusions or pneumothorax. Spinal stimulator per IMPRESSION: Vascular congestion but no alveolar edema. No significant change compared with
[2020-10-20 20:33] LABS: Absolute Lymphocytes (CBC) 0.5 K/uL (0.7-4.9); Basophils % 1.2 % (0-1.3); Hematocrit 28.7 % (39.6-49.0); Lymphocytes % 12.7 % (15.3-44.8); MPV 9.6 fL (7.6-11.3); RBC Red Blood Cell Count 2.92 M/uL (4.33-5.43)
[2020-10-20 20:34] LABS: Protime INR 1.07
[2020-10-20 21:09] LABS: ALT/SGPT 14 U/L (12-78); AST/SGOT 20 U/L (15-37); Albumin 2.9 g/dL (3.4-5.0); Alkaline Phosphatase 290 U/L (45-117); BUN Blood Urea Nitrogen 54 mg/dL (7-18); Bicarbonate 24 mmol/L (21-32); Bilirubin Direct 1.1 mg/dL (0-0.2); Bilirubin Total 1.4 mg/dL (0.2-1.0); Glucose Level 160 mg/dL (74-106); Lipase 66 U/L (73-393); Magnesium 2.6 mg/dL (1.8-2.4); Potassium 4.1 mmol/L (3.5-5.1); Protein, Total 6.8 g/dL (6.4-8.2); Sodium Level 135 mmol/L (136-145); Troponin (Emerg Dept Use Only) 0.03 ng/mL (0.0-0.045)
[2020-10-20 21:11] LABS: NT PRO-BNP > 175000 pg/mL (<125)
--- NOTE | 2020-10-20 21:12 | RAD REPORT ---
EXAM DESCRIPTION: CT - Head C Spine Cap Wo Con - 10/20/2020 8:54 pm CLINICAL HISTORY: Trauma, head and neck injury. Chest, abdomen and pelvis pain. PAIN COMPARISON: Head C Spine Cap W Con dated 10/07/2020; Head C Spine Cap Wo Con dated 09/29/2020 TECHNIQUE: CT head without contrast. CT cervical spine without contrast with coronal and sagittal reformatted images. CT chest, abdomen and pelvis without contrast with coronal and sagittal reformatted images of the spi ne. All CT scans are performed using dose optimization technique as appropriate and may include automated exposure control or mA/KV adjustment according to patient size. FINDINGS: CT HEAD WITHOUT CONTRAST: No intracranial hemorrhage, hydrocephalus or extra-axial fluid collection. No areas of brain edema o r midline shift. The paranasal sinus thickening to The calvarium is intact. CT CERVICAL SPINE WITHOUT CONTRAST: No fracture or subluxation. The prevertebral soft tissues are normal in thickness. CT CHEST, ABDOMEN, PELVIS WITHOUT CONTRAST: NOTE: Lack of contrast is a significant limitation in the assessment of trauma related findings. Spec ifically, solid organ, vascular and bowel evaluation is significantly limited. There are some chronic calcified and non calcified pulmonary nodules which are most certainly benign. Unchanged small right pleural effusion perNo pneumothorax or pericardial/pleural fluid. Coronary [place] calcifications. Cirrhosis with ascites. Atrophic kidneys bilaterally. Gallbladder wall thickening which is presumably related underlying liver disease. Spleen is unremarkable. The pancreas is unremarkable. No bowel obs truction is seen. Bladder wall thickening is present which is chronic and nonspecific. Abdominal aort ic atherosclerosis. No concerning pelvic findings. No fractures. Intramedullary radha in left femur. Fusion hardware in the lower spine. Spinal stimulator . Remote left-sided rib fractures are identified. No acute fractures seen. Sequela of avascular necro sis in the right femoral head. Re- demonstrated degenerative changes at the L2-3 level. Schmorl's nod es noted. IMPRESSION: Negative for acute traumatic findings within the above detailed limitations.
[2020-10-20] MEDS ORDERED: NA CHLORIDE 0.9% 1,000 ML ONE (21:25)
--- NOTE | 2020-10-20 21:42 | ER ---
Nurse's Notes [facility] Name: Alexis Urbano Age: 65 yrs Sex: Male : 1955 Arrival Date: 10/20/2020 Time: 14:44 Bed 9 Private MD: Diagnosis: Weakness;End stage renal disease;Type 2 diabetes mellitus with hyperglycemia;Fall due to bumping against object;Anemia, unspecified;Other chronic pain Presentation: 10/20 15:45 Chief complaint: Patient states: I've been in here for this before and y'all don't ever [facility] do anything about it. Hands start twitching and body like jerks and twitches since Monday. Missed dialysis Monday and Monday. Coronavirus screen: Client denies travel out of the [place] in the last 14 days. At this time, the client does not indicate any symptoms associated with coronavirus-19. Ebola Screen: No symptoms or risks identified at this time. Initial Sepsis Screen: Does the patient meet any 2 criteria? No. Patient's initial sepsis screen is negative. Does the patient have a suspected source of infection? No. Patient's initial sepsis screen is negative. Risk Assessment: Do you want to hurt yourself or someone else? Patient reports no desire to harm self or others. Onset of symptoms was October 17, 2020. 15:45 Method Of Arrival: Wheelchair [facility] 15:45 Acuity: JOEL 3 jl7 Triage Assessment: 19:35 General: Appears in no apparent distress. Behavior is calm, cooperative, appropriate lh3 for age. Pain: Complains of pain in back, abdomen and pelvis. Historical: - Allergies: 15:49 No Known Allergies; jl7 - PMHx: 15:49 COPD; Diabetes - NIDDM; Dialysis; M/W/F; ESRD; GERD; High Cholesterol; Hypertension; jl7 - Immunization history:: Client reports receiving the 2nd dose of the Covid vaccine, Pfizer. - Social history:: Smoking status: Patient reports the use of cigarette tobacco products. Screenin:35 Abuse screen: Denies threats or abuse. Nutritional screening: No deficits noted. lh3 Tuberculosis screening: No symptoms or risk factors identified. Fall Risk None identified. Fall in past 12 months (25 points). Secondary diagnosis (15 points) impaired mobility, Ambulatory Aid- Crutches/Cane/Walker (15 pts). Gait- Weak (10 pts.). Mental Status- Oriented to own ability (0 pts). Assessment: 19:35 Reassessment: Patient appears in no apparent distress at this time. General: Appears in lh3 no apparent distress. Musculoskeletal: Reports weakness in right leg and left leg since Yesterday. Pain is 8 out of 10 on a pain scale. Vital Signs: 15:45 BP 155 / 52; Pulse 51; Resp 17; Temp 97.5; Pulse Ox 99% ; Weight 74.84 kg; Height 5 ft. jl7 6 in. (167.64 cm); Pain 7/10; 19:35 BP 161 / 51; Pulse 50; Resp 18; Pulse Ox 98% on R/A; lh3 15:45 Body Mass Index 26.63 (74.84 kg, 167.64 cm) jl7 ED Course: 14:44 Patient arrived in ED. mr 15:49 Triage completed. jl7 15:49 Arm band placed on right wrist. Patient placed in waiting room, Patient notified of jl7 wait time. 19:24 Homar Munoz MD is Attending Physician. chris 19:29 Larisa Walker, ABBIE is Primary Nurse. iw 19:35 No apparent distress. lh3 19:35 Patient has correct armband on for positive identification. Bed in low position. Side lh3 rails up X2. 19:35 No provider procedures requiring assistance completed. lh3 20:12 XRAY Chest (1 view) In Process Unspecified. EDMS 20:54 CT Traumagram (Head C Spine CAP wo con) In Process Unspecified. EDMS 21:53 Skyler Rand MD is Referral Physician. chris 22:22 IV discontinued, intact, bleeding controlled, No redness/swelling at site. ld1 Administered Medications: 21:00 Drug: NS 0.9% 1000 ml Route: IV; Rate: 75 ml/hr; Site: right antecubital; 3 22:22 Follow up: Response: No adverse reaction; IV Status: Completed infusion; IV Intake: lh3 1000ml 22:11 Drug: [place] (HYDROcodone-acetaminophen) 10 mg-325 mg 1 tabs Route: PO; 3 Intake: 22:22 IV: 1000ml; Total: 1000ml. 3 Outcome: 21:42 Discharge ordered by . chris 22:22 Discharged to home via wheelchair. ld1 22:22 Condition: stable 22:22 Discharge instructions given to patient, Instructed on discharge instructions, follow up and referral plans. Demonstrated understanding of instructions, follow-up care. 22:23 Patient left the ED. ld1 Signatures: Dispatcher [employer] EDWI Homar Munoz MD MD cha Rivera, [place] russo Larisa Walker, RN ABBIE iw Daniel Rahman RN RN jl7 Patti Valdivia RN RN ld1 Kindra Albright RN RN lh3 Corrections: (The following items were deleted from the chart) 15:50 15:49 PMHx: Dialysis; M,W,F; jl7 jl7 15:50 15:49 PMHx: Hypertension; jl7 jl7
--- NOTE | 2020-10-20 21:43 | EDPHYS ---
Physician Documentation [facility] Name: Alexis Urbano Age: 65 yrs Sex: Male : 1955 Arrival Date: 10/20/2020 Time: 14:44 Bed 9 Private MD: ED Physician Homar Munoz HPI: 10/20 20:06 This 65 yrs old Male presents to ER via Wheelchair with complaints of Leg hand chris weakness. 20:06 weak and falls. Onset: The symptoms/episode began/occurred 2 day(s) ago. Severity of chirs symptoms: At their worst the symptoms were mild this morning, in the emergency department the symptoms are unchanged. The patient has experienced similar episodes in the past, a few times. Historical: - Allergies: 15:49 No Known Allergies; jl7 - PMHx: 15:49 COPD; Diabetes - NIDDM; Dialysis; M/W/F; ESRD; GERD; High Cholesterol; Hypertension; jl7 - Immunization history:: Client reports receiving the 2nd dose of the Covid vaccine, Pfizer. - Social history:: Smoking status: Patient reports the use of cigarette tobacco products. ROS: 20:08 Constitutional: Negative for fever, chills, and weight loss, Eyes: Negative for injury, chris pain, redness, and discharge, ENT: Negative for injury, pain, and discharge, Neck: Negative for injury, pain, and swelling, Cardiovascular: Negative for chest pain, palpitations, and edema, Respiratory: Negative for shortness of breath, cough, wheezing, and pleuritic chest pain, Abdomen/GI: Negative for abdominal pain, nausea, vomiting, diarrhea, and constipation, : Negative for injury, bleeding, discharge, and swelling, MS/Extremity: Negative for injury and deformity, Skin: Negative for injury, rash, and discoloration, Psych: Negative for depression, anxiety, suicide ideation, homicidal ideation, and hallucinations, Allergy/Immunology: Negative for hives, rash, and allergies, Endocrine: Negative for neck swelling, polydipsia, polyuria, polyphagia, and marked weight changes, Hematologic/Lymphatic: Negative for swollen nodes, abnormal bleeding, and unusual bruising. 20:08 Back: Positive for decreased range of motion, pain with movement. Exam: 20:08 Constitutional: This is a well developed, well nourished patient who is awake, alert, chris and in no acute distress. Head/Face: Normocephalic, atraumatic. Eyes: Pupils equal round and reactive to light, extra-ocular motions intact. Lids and lashes normal. Conjunctiva and sclera are non-icteric and not injected. Cornea within normal limits. Periorbital areas with no swelling, redness, or edema. ENT: Nares patent. No nasal discharge, no septal abnormalities noted. Tympanic membranes are normal and external auditory canals are clear. Oropharynx with no redness, swelling, or masses, exudates, or evidence of obstruction, uvula midline. Mucous membranes moist. Neck: Trachea midline, no thyromegaly or masses palpated, and no cervical lymphadenopathy. Supple, full range of motion without nuchal rigidity, or vertebral point tenderness. No Meningismus. Chest/axilla: Normal chest wall appearance and motion. Nontender with no deformity. No lesions are appreciated. Cardiovascular: Regular rate and rhythm with a normal S1 and S2. No gallops, murmurs, or rubs. Normal PMI, no JVD. No pulse deficits. Respiratory: Lungs have equal breath sounds bilaterally, clear to auscultation and percussion. No rales, rhonchi or wheezes noted. No increased work of breathing, no retractions or nasal flaring. Abdomen/GI: Soft, non-tender, with normal bowel sounds. No distension or tympany. No guarding or rebound. No evidence of tenderness throughout. Male : Normal genitalia with no discharge or lesions. Skin: Warm, dry with normal turgor. Normal color with no rashes, no lesions, and no evidence of cellulitis. MS/ Extremity: Pulses equal, no cyanosis. Neurovascular intact. Full, normal range of motion. Psych: Awake, alert, with orientation to person, place and time. Behavior, mood, and affect are within normal limits. 20:08 Back: pain, that is mild, ROM is painful, normal spinal alignment noted, CVA tenderness, is absent. 21:50 ECG was reviewed by the Attending Physician. [facility] Vital Signs: 15:45 BP 155 / 52; Pulse 51; Resp 17; Temp 97.5; Pulse Ox 99% ; Weight 74.84 kg; Height 5 ft. jl7 6 in. (167.64 cm); Pain 7/10; 19:35 BP 161 / 51; Pulse 50; Resp 18; Pulse Ox 98% on R/A; lh3 15:45 Body Mass Index 26.63 (74.84 kg, 167.64 cm) jl7 MDM: 19:24 Patient medically screened. [facility] 21:40 Data reviewed: vital signs, nurses notes, lab test result(s), EKG, radiologic studies, chris CT scan, plain films. Data interpreted: monitoring specialist: rate is 50 beats/min, rhythm is regular, Pulse oximetry: on room air is 98 %. Test interpretation: by ED physician or midlevel provider: ECG, plain radiologic studies. Counseling: I had a detailed discussion with the patient and/or guardian regarding: the historical points, exam findings, and any diagnostic results supporting the discharge/admit diagnosis, lab results, radiology results, the need for outpatient follow up, for definitive care, 10/20 20:00 Order name: Basic Metabolic Panel; Complete Time: 21:12 [facility] 10/20 20:00 Order name: CBC with Diff; Complete Time: 21:08 [facility] 10/20 20:00 Order name: LFT's; Complete Time: 21:39 [facility] 10/20 20:00 Order name: Magnesium; Complete Time: 21:39 [facility] 10/20 20:00 Order name: NT PRO-BNP; Complete Time: 21:39 [facility] 10/20 20:00 Order name: PT-INR; Complete Time: 21:08 [facility] 10/20 20:00 Order name: Troponin (emerg Dept Use Only); Complete Time: 21:39 [facility] 10/20 20:00 Order name: XRAY Chest (1 view); Complete Time: 20:33 [facility] 10/20 20:00 Order name: EKG; Complete Time: 20:01 [facility] 10/20 20:00 Order name: CT Traumagram (Head C Spine CAP wo con); Complete Time: 21:39 [facility] 10/20 20:00 Order name: Lipase; Complete Time: 21:39 [facility] 10/20 20:00 Order name: Cardiac monitoring; Complete Time: 20:31 [facility] 10/20 20:00 Order name: EKG - Nurse/Tech; Complete Time: 20:31 [facility] 10/20 20:00 Order name: IV Saline Lock; Complete Time: 20:31 [facility] 10/20 20:00 Order name: Labs collected and sent; Complete Time: 20:31 [facility] 10/20 20:00 Order name: O2 Per Protocol; Complete Time: : chris 10/20 20:00 Order name: O2 Sat Monitoring; Complete Time: : chris EC:50 Rate is 51 beats/min. Rhythm is regular. QRS [place] is Normal. SC interval is normal. QRS chris interval is normal. QT interval is prolonged at [address] Q waves. [address] Segment is depressed in leads I, aVL, V5, V6. Clinical impression: Abnormal EKG without significant change and No evidence of ischemia. Interpreted by me. Reviewed by me. Administered Medications: 21:00 Drug: NS 0.9% 1000 ml Route: IV; Rate: 75 ml/hr; Site: right antecubital; 3 22:22 Follow up: Response: No adverse reaction; IV Status: Completed infusion; IV Intake: lh3 1000ml 22:11 Drug: [place] (HYDROcodone-acetaminophen) 10 mg-325 mg 1 tabs Route: PO; 3 Disposition Summary: 10/20/20 21:42 Discharge Ordered Location: Home chris Problem: new chris Symptoms: have improved chris Condition: Stable chris Diagnosis - Weakness chris - End stage renal disease chris - Type 2 diabetes mellitus with hyperglycemia chris - Fall due to bumping against object chris - Anemia, unspecified chris - Other chronic pain chris Followup: chris - With: Private Physician - When: 2 - 3 days - Reason: Recheck today's complaints, Continuance of care, Re-evaluation by your physician Followup: chris - With: Skyler Rand MD - When: Tomorrow - Reason: Recheck today's complaints, Continuance of care, Re-evaluation by your physician Discharge Instructions: - Discharge Summary Sheet chris - Anemia chris - Chronic Pain, Adult chris - Type 2 Diabetes Mellitus, Diagnosis, Adult chris - Hyperglycemia chris - Weakness chris - Fatigue chris - Dialysis chris - Blood Glucose Monitoring, Adult chris - Weakness, Zlmc-ex-Dwxi chris Forms: - Medication Reconciliation Form chris - Thank You Letter chris - Antibiotic Education chris - Prescription Opioid Use chris Signatures: Dispatcher [employer] Homar Mccain MD MD cha Attema, Lee, PRACTICE DIRECTOR-C PRACTICE DIRECTOR-Cla1 Daniel Rahman RN RN jl7 Kindra Albright RN RN lh3 Corrections: (The following items were deleted from the chart) 15:50 15:49 PMHx: Dialysis; M,W,F; jl7 jl7 15:50 15:49 PMHx: Hypertension; jl7 jl7 20:24 20:06 CORONAVIRUS+BRZ ordered. EDMS EDMS
[2020-10-20 22:28] VITALS: TEMP 97.5
[2020-10-20 22:31] VITALS: BP 161/51; O2SAT 98
[2020-10-20] MEDS ORDERED: HYDROCODONE/APAP 10/325 TAB ONE (22:33)
--- NOTE | 2020-10-21 16:27 | EKG ---
Test Date: 2020-10-20 Test Time: 20:25:23 Clergy Member: LEX MEASUREMENT RESULTS: Intervals: Rate: 51 AR: 144 QRSD: 94 QT: 532 QTc: 490 Clay: P: 36 AR: 144 QRS: -2 T: 189 INTERPRETIVE STATEMENTS: Sinus bradycardia ST & T wave abnormality, consider lateral ischemia Prolonged QT Abnormal ECG Compared to ECG 10/07/2020 18:57:26 Prolonged QT interval now present ST (T wave) deviation still present Possible ischemia still present Electronically Signed On 10-21-20 16:24:03 CDT by Jose Francisco Mckeon
== END 2020-10-20 22:23 | disposition home or self-care (01) ==
LOC: ER 14:40
DX: R53.1 Weakness (principal); E11.22 Type 2 diabetes mellitus with diabetic chronic kidney disease; E11.65 Type 2 diabetes mellitus with hyperglycemia; I12.0 Hypertensive chronic kidney disease with stage 5 chronic kidney disease or end stage renal disease; N18.6 End stage renal disease; D64.9 Anemia, unspecified; G89.29 Other chronic pain; F17.210 Nicotine dependence, cigarettes, uncomplicated; W18.00XA Striking against unspecified object with subsequent fall, initial encounter; Z99.2 Dependence on renal dialysis
CPT/HCPCS: 93005; 85025; 80048; 36415; 83735; 85610; 80076; 84484; 83690; 83880; 70450; 71250; 72125; 71045; 96360; 99283; J7030

== ENCOUNTER 2020-11-10 07:47 | Inpatient (IN) | payer OTHER ==
--- OUTSIDE RECORDS SUMMARY | 2020-11-10 07:52 | XMS REPORT | Continuity of Care Document ---
:1955 Author Organization [facility] t Address [address] [place] [address] Care Team Providers Name Role Phone Natacha Lee DO Primary Care Physician Brian Vega MD Attending Clinician Shayna CABALLERO Attending Clinician Kayode CABALLERO, Siroliverj Attending Clinician Chetan Donohue MD Attending Clinician [...] Effective Expiration Source Number Date Date TEXANPLUSTEXANPLUS [id number] 2019 Method ist [id number] 2020-Pr 00:00:00 H ospital esentHMO Problems Condition [...] e Type 2 Type [address] [facility] diabetes Diabetes 5-18 Family mellitus Mellitus 00:00: Practi c with with 00 e multiple Multiple complicati Complicati ons ons Chronic Chronic Problem Active [facility] hepatitis Hepatitis 1-07 Fami ly C [...] Active Last [facility] status status -19 Assessguillaume Muñiz - testing testing 00:00: t [...] Disease Active Last [facility] syndrome syndrome -19 Assessmen Susie es - 00:00: t & Plan: Medical 00 With T2DM Center and hypertens ion, he meets criteria for metabolic syndrome. Managemen t per his PCP. Chronic Chronic Disease Active Last [facility] hepatitis hepatitis 5-19 Assessguillaume hernandez - C virus C virus 00:00: [...] Allergy 03-31 in mouth, [facility]: [facility] Medical 00 okay with Center shrimp/cr awfish Family History Family Member Diagnosis Comments Start Date Stop Date Source Natural father Other [facility] Natural mother Dementia [facility] Social History Social Habit Start Date Stop Date Quantity Comments Source History of tobacco Cigarette Smoker Religion use [facility] Cigarettes smoked 2019-12-10 2019-12-[address] current (pack per 00:00:00 00:00:00 [facility] l ) - Reported Tobacco use and 2019-12-10 2019-12-10 Never used Religion exposure 00:00:00 00:00:00 Hospital Alcohol intake 2019-12-10 2019-12-10 Ex-drinker Religion 00:00:00 00:00:00 (finding) Hospital Alcohol Comment 2015-07-23 2015-07-[address] [facility] - 00:00:00 00:00:00 2005[facility] drink[facility] Tobacco Comment 2015-03-31 2015-03-31 [address] [facility] - 00:00[facility]00 00[facility]:00 Medical Center Sex Ass[birth year] At [birth year] Religion 00:00:00 00:00:00 Hospital Smoking Status Start Date Stop Date Source Light Tobacco Smoker [facility] Current every day 2019-12-10 00:00:00 [facility] smoker Former smoker 2018-06-05 00:00:00 2018-06-05 00:00:00 [facility] Medications Ordered Filled Start Stop Current Ordering Indication Dosage Frequency Signature Comments Components Source Medication Medication Date Date Medication? Clinician (SIG) Name Name aspirin 81 2019-03- No 81mg QD Chew 1 Meth michelle mg chewable 0-07 11-07 tablet (81 s t tablet 00:00: 05:59 mg total) Hospi ta 00 :00 daily for l 30 days. clopidogreL 2019-03 2020- No 75mg QD Take 1 Met hodi (PLAVIX) 75 0-07 11-07 tablet (75 s t mg tablet 00:00: 05:59 mg total) Ho spita 00 :00 by mouth l daily for 30 days. aspirin 81 2019-03- No 81mg QD Chew [...] mouth l daily for 30 days. clopidogreL 2019-03 2020- No 75mg QD Take 1 Met hodi [...] daily for 30 days. HYDROcodone 2019-03 Yes [id number] 1{tbl} Q6H Take 1 M ethodi -acetaminop [...] 21:07: daily. Hospita tablet 01 l clonIDINE 2020- Yes .2mg Q.5D Take 0.2 Meth michelle HCl 0-[address] (CATAPRES) 21:07: mouth 2 Hosp hector 0.2 MG 01 (two) l tablet times a day. gabapentin 2019-03 Yes 100mg Q.[id number] Take 100 Methodi (NEURONTIN) 0-06 [id number] mg by s t 100 mg 21:07: [...] hours as needed for muscle spasms. calcium 2019- Yes Take by Methodi carbonate 0-[address] (TUMS ORAL) 21:07: Hospit a 01 l zolpidem 2019-03 Yes 10mg QD Take 10 mg Met hodi (AMBIEN) 10 0-[address] mg tablet 21:07: nightly as Ho spita 01 needed for l sleep. HYDROcodone 2019-03 Yes [id number] 1{tbl} Q6H Take 1 M ethodi -acetaminop 0-[address] hen (NORCO) 21:07: mouth Hospi ta 10-325 mg 01 every 6 l per tablet (six) hours as needed for moderate pain .acute pain. ferric 2019- Yes Take by Methodi citrate 0-06 mouth. [...] 21:07: daily. Hospita tablet 01 l clonIDINE 2019- Yes .2mg Q.5D Take 0.2 Meth michelle HCl 0-[address] (CATAPRES) 21:07: mouth 2 Hosp hector 0.2 MG 01 (two) l tablet times a day. gabapentin 2019-03 Yes 100mg Q.[id number] Take 100 Methodi (NEURONTIN) 0-06 [id number] mg by s t 100 mg 21:07: 3D mouth 3 Hospita capsule 01 (three) l times a day. calcium 2019-03 Yes Take by Methodi acetate 0-[address] (PHOSLO 21:07: Hospita ORAL) 01 l pravastatin 2019-03 Yes 40mg QD Take 40 mg Methodi (PRAVACHOL) 0-[address] 40 mg 21:07: daily. Hospita tablet 01 l folic 2019- Yes Take by Methodi acid/vit B 0-[address] complex and 21:07: Hospit a C 01 l (CORAL-HAMIDA ORAL) tiZANidine 2019-03 Yes 4mg Q8H Take 4 mg Me thodi (ZANAFLEX) 0-[address] 4 MG tablet 21:07: every 8 Hos john 01 (eight) l hours as needed for muscle spasms. calcium 2019- Yes Take by Methodi carbonate 0-06 mouth. [...] mouth Hospita capsule 24 :00 daily. l tamsulosin 2019-03- No .4mg QD Take 0.4 Me thodi (FLOMAX) 0-01 10-[address] 0.4 mg 17:44: 00:00 mouth Hospita capsule 24 :00 daily. l finasteride 2019-03- No 5mg QD Take 5 mg Methodi (PROSCAR) 5 0- 10- by mouth st mg tablet 17:44: 00:00 daily. Hospi ta 21 :00 l finasteride 2019-03- No 5mg QD Take 5 mg Methodi (PROSCAR) 5 0-12-[address] mg tablet 17:44: 00:00 daily. Hospi ta 21 :00 l tiZANidine 2019-03- No 2mg Q8H Take 2 mg M ethodi (ZANAFLEX) 0-12-[address] 2 MG tablet 17:43: 00:00 every 8 Ho spita 54 :00 (eight) l hours as needed for muscle spasms. tiZANidine 2019-03- No 2mg Q8H Take 2 mg M ethodi (ZANAFLEX) 0-12-[address] 2 MG tablet 17:43: 00:00 every 8 Ho spita 54 :00 (eight) l hours as needed for muscle spasms. aspirin 81 2018- Yes 81mg QD Take [address] MG EC 4-02 by mouth [facility] - tablet 10:20: daily. [address] aspirin 81 2018-0 Yes 81mg QD Take [address] MG EC 4-02 by mouth [facility] - tablet 10:20: daily. [address] aspirin 81 2018-0 Yes 81mg QD Take [address] MG EC 4-02 by mouth [facility] - tablet 10:20: daily. [address] amLODIPine 2018- Yes 10mg Take [address] (NORVASC) 4-02 by mouth. [facility] - 10 MG 10:19: Medical tablet 56 Center amLODIPine 2019-0 Yes 10mg Take [address] (NORVASC) 4-02 by mouth. [facility] - 10 MG 10:19: Medical tablet 56 Center amLODIPine 2019-0 Yes 10mg Take 10 [...] tablet 10:18: daily. Medica l 27 Center cloNIDine 2019-0 Yes .2mg Q.5D Take [...] tablet 10:18: daily. Medica l 27 Center cloNIDine 2019-0 Yes .2mg Q.5D Take [...] 10:18: daily. Medica l 27 Center lactulose 0 Yes TAKE 20 [facility] (CHRONULAC) 3-26 GRAM [facility] - 10 gram/15 00:00: (30ML) BY Me dical mL solution 00 MOUTH ONCE Ce nter A DAY NEEDED lactulose 0 Yes TAKE 20 [facility] (CHRONULAC) 3-26 GRAM [facility] - 10 gram/15 00:00: (30ML) BY Me dical mL solution 00 MOUTH ONCE Ce nter A DAY NEEDED lactulose Yes TAKE 20 [facility] (CHRONULAC) 3-26 GRAM [facility] - 10 gram/15 00:00: (30ML) BY Me dical mL solution 00 MOUTH ONCE Ce nter A DAY NEEDED zolpidem 2019-0 Yes TAKE [address] [facility] (AMBIEN) 10 2-21 TABLET [facility] - mg tablet 00:00: ORALLY AT Med ical 00 BEDTIME Center NEEDED zolpidem 2019-0 Yes TAKE [address] (AMBIEN) 10 2-21 TABLET [facility] - mg tablet 00:00: ORALLY AT Med ical 00 BEDTIME Center NEEDED zolpidem 2019-0 Yes TAKE [address] (AMBIEN) 10 2-21 TABLET [facility] - mg tablet 00:00: ORALLY AT Med ical 00 BEDTIME Center NEEDED atorvastati 20180 Yes 20mg Take [address] n (LIPITOR) 4-26 by mouth. Susie es - 20 MG 00:00: Medical tablet [place] atorvastati 201[address] Yes 20mg Take [address] n (LIPITOR) 4-26 by mouth. Susie es - 20 MG 00:00: Medical tablet 00 [place] atorvastati 20180 Yes 20mg Take [address] n (LIPITOR) 4-26 by mouth. Susie es - 20 MG 00:00: Medical tablet [place] hydrALAZINE 2017-0 Yes 50mg Q.[id number] Take [address] (APRESOLINE 2-06 [id number] tablets [facility] - ) 25 MG 00:00: 3D (50 mg Medical tablet total) by Center mouth 3 (three) times daily. pantoprazol 2017-0 Yes 40mg QD Take [address] e 2-06 tablet (40 [facility] - (PROTONIX) 00:00: mg total) Me dical 40 MG 00 by mouth Center tablet daily. hydrALAZINE 2017-0 Yes 50mg Q.[id number] Take [address] (APRESOLINE 2-06 [id number] tablets [facility] - ) 25 MG 00:00: 3D (50 mg Medical tablet 00 total) by Center mouth 3 (three) times daily. pantoprazol 2017-0 Yes 40mg QD Take [address] e 2-06 tablet (40 [facility] - (PROTONIX) 00:00: mg total) Me dical 40 MG 00 by mouth Center tablet daily. hydrALAZINE 2017-0 Yes 50mg Q.[id number] Take [address] (APRESOLINE 2-06 [id number] tablets [facility] - ) 25 MG 00:00: [...] route. carvedilol carvedilol No [address] [facility] 6.25 mg 6.25 mg 6.25 mg Family tablet Take tablet Take tablet Practic 1 tablet 1 tablet Take 1 e twice a day twice a day tablet by oral by oral twice a route. route. day by oral route. clonidine clonidine No [address] [facility] HCl 0.2 mg HCl 0.2 mg HCl 0.2 mg Family tablet Take tablet Take tablet Practic 1 tablet 1 tablet Take 1 e twice a day twice a day tablet by oral by oral twice a route. route. day by oral route. gabapentin gabapentin No 1capsul TID gabapentin [facility] 100 mg 100 mg e(s) 100 mg Family capsule capsule capsule Practi c Take 1 Take 1 Take 1 e capsule 3 capsule 3 capsule 3 times a day times a day times a by oral by oral day by route. route. oral route. lactulose lactulose No 15mL Q1D lactulose [facility] 10 gram/15 10 gram/15 10 gram/15 Family mL (15 mL) mL (15 mL) mL (15 mL) Practic oral oral oral e solution solution solution Take 15 mL Take 15 mL Take 15 mL every day every day every day by oral by oral by oral route as route as route as directed. directed. directed. [place] 10 [place] 10 No 1 Q4H [place] 10 Milo tiffanie mg-325 mg mg-325 mg mg-325 mg Family tablet Take tablet Take tablet Practic 1 tablet 1 tablet Take 1 e every 4 every 4 tablet hours by hours by every 4 oral route oral route hours by as needed. as needed. oral route as needed. pravastatin pravastatin No [address] [facility] 40 mg 40 mg n 40 [...] 30 Sensipar 30 No [address] [facility] mg tablet mg tablet 30 mg Fami ly Take 1 Take 1 tablet Practic tablet tablet Take 1 e every day every day tablet by oral by oral every day route. route. by oral route. sildenafil sildenafil No [address] [facility] 100 mg 100 mg 100 mg Family tablet Take tablet Take tablet Practic 1 tablet 1 tablet Take 1 e every day every day tablet by oral by oral every day route. route. by oral route. tizanidine tizanidine No [address] [facility] 4 mg tablet 4 mg tablet 4 mg F amily Take 1 Take 1 tablet Practic tablet tablet Take 1 e every 6 every 6 tablet hours by hours by every 6 oral route oral route hours by as as oral route directed. directed. as directed. zolpidem 10 zolpidem 10 No [address] [facility] mg tablet mg tablet 10 mg Fami ly Take 1 Take 1 tablet Practic tablet tablet Take 1 e every day every day tablet by oral by oral every day route at route at by oral bedtime. bedtime. route at bedtime. Immunizations Ordered Immunization Filled Immunization Date Status Commen ts Source Name Name pneumococcal pneumococcal 2019-01-[address] [facility] Chris hale conjugate PCV 13 conjugate PCV 13 00:00:00 Pr actice influenza, influenza, 2019-01-[address] [facility] Family injectable, injectable, 00:00:00 Practice quadrivalent quadrivalent PPD Test 2016-04-03 Completed [facility] - 00:00:00 [facility] PPD Test 2016-04-03 Completed [facility] - 00:00:00 Medical Center PPD Test 2016-04-[address] [facility] - 00:00:00 [facility] Center Vital Signs Vital Name Observation Time Observation Value Comments Source Height 2019-09-03 66 [in_i] [facility] 00:[facility]:00 Practice Height 2019-07-23 66 [in_i] [facility] 00:[facility]:00 Practice BMI (Body Mass 2019-07-23 25.8 kg/m2 [facility] Index) 00:00:00 Practice Body Weight 2019-07-23 160 [lb_av] [facility] 00:[facility]:00 Practice Systolic blood 2019-12-10 206 mm[Hg] [facility] 19:40[facility] Diastolic blood 2019-12-10 88 mm[Hg] [facility]COTHEQUE D[facility] pressure 19:40[facility] Heart rate 2019-12-10 69 /min Religion 19:40:00 Hospital Body temperature 2019-12-10 37.11 Id[place] Religion 17:15:24 Hospital Respiratory rate 2019-12-10 16 /min Religion 17:15:24 Hospital Oxygen saturation 2019-12-10 96 /min Religion in Arterial blood 17:15:24 Hospital by Pulse oximetry Body weight 2019-12-10 72.848 kg Religion 11:00:00 Hospital BMI 2019-12-10 25.92 kg/m2 Religion 11:00:00 Hospital Body height 2019-12-09 167.6 cm Religion 21:00:00 Hospital Procedures Procedure Date / Time Performing Clinician Source Performed ECG 12-LEAD 2019-12-10 19:01:00 [facility] TROPONIN 2019-12-10 17:50:00 [facility] BASIC METABOLIC PANEL 2019-12-10 10:33:00 [facility] ESTIMATED GFR 2019-12-10 10:33:00 KayodeNatalie davenport [facility] HEMODIALYSIS 2019-12-10 01:17:14 Skyler Rand Ho spital OR FL < 1 HOUR 2019-12-10 00:26:47 Shayna, Martita Schmid Ho spital HEPATITIS B SURFACE 2019-12-10 00:13:00 [facility] SURFACE AB, 2019-12-10 00:13:00 [facility] QUANTITATIVE HEMODIALYSIS 2019-12-09 21:51:41 TanjamsSkyler fine [facility] Ho spital HEMODIALYSIS 2019-12-09 21:09:37 DoronSkyler fine [facility] Ho spital POC GLUCOSE 2019-12-09 21:02:00 Shayna Wyethan [facility] Ho spital MD AN ELECTIVE 2019-12-09 18:56:58 Antonieta Lawrence [facility] SUPRAGLOTTIC AIRWAY AORTOGRAPHY, POSSIBLE 2019-12-09 18:47:00 Shayna [facility] ANGIOPLASTY POC GLUCOSE 2019-12-09 17:42:00 Shayna Wyethan [facility] spital POC PANEL 2019-12-09 15:37:00 Shayna Wyethan [facility] COMPREHENSIVE METABOLIC 2019-12-09 15:32:00 Shayna [facility] PANEL TYPE AND SCREEN 2019-12-09 15:32:00 Binu Wilson ESTIMATED GFR 2019-12-09 15:32:00 Shayna Wyethan [facility] spital XR CHEST 2 VW 2019-12-05 18:38:59 Shayna Wyethan [facility] Ho spital ECG PRE/POST OP 2019-12-05 18:07:15 Shayna [facility] Bin[facility] P[facility]co spital PROTHROMBIN TIME WITH INR 2019-12-05 17:45:00 [facility] PARTIAL THROMBOPLASTIN 2019-12-05 17:45:00 Shayna [facility] TIME (PTT) COVID-19 QUALITATIVE 2019-12-05 17:37:00 Shayna [facility] RT-PCR HC COMPLETE BLD COUNT 2019-12-05 17:36:00 [facility] W/AUTO DIFF HEMOGLOBIN A1C 2019-12-05 17:36:00 Binu Wilson Plan of Care Planned Activity Planned Date Details Comments Source Future Scheduled 2020-11-[address] [facility] - Test 00:00:00 (Season Ended) [code = Medic pr Center INFLUENZA VACCINE (Season Ended)] Future Scheduled 2020-11-[address] [facility] - Test 00:00:00 (Season Ended) [code = Medic al Center INFLUENZA VACCINE (Season Ended)] Future Scheduled 2020-11-[address] [facility] - Test 00:00:00 (Season Ended) [code = Medic al Center INFLUENZA VACCINE (Season Ended)] Future Scheduled 2020-03-[address] [facility] - Test 00:00:00 (12+) [code = Medical Center DEPRESSION SCREENING (12+)] Future Scheduled 2020-03-[address] [facility] - Test 00:00:00 (12+) [code = Medical Center DEPRESSION SCREENING (12+)] Future Scheduled 2020-03-[address] [facility] - Test 00:00:00 (12+) [code = Medical Center DEPRESSION SCREENING (12+)] Future Scheduled 2019-03-[address] [facility] - Test 00:00:00 (procedure) [code = [facility] 75909647] Future Scheduled 2019-03-[address] [facility] - Test 00:00:00 (procedure) [code = [facility] 25990071] Future Scheduled 2019-03-[address] - Test 00:00:00 (procedure) [code = [facility] 92062732] Future Scheduled 2016-09-[address] [facility] - Test 00:00:00 measurement Medical Center (procedure) [code = 56484874] Future Scheduled 2016-09-[address] [facility] - Test 00:00:00 measurement Medical Center (procedure) [code = 21130490] Future Scheduled 2016-09-[address] - Test 00:00:00 measurement Medical Center (procedure) [code = 04403708] Future Scheduled 2016-06-[address] [facility] - Test 00:00:00 malignant neoplasm of Medica l Center colon (procedure) [code = 092475178] Future Scheduled 2016-06-[address] [facility] - Test 00:00:00 malignant neoplasm of Medica l Center colon (procedure) [code = 575580680] Future Scheduled 2016-06-[address] [facility] - Test 00:00:00 malignant neoplasm of Medica l Center colon (procedure) [code = 999146335] Future Scheduled 2015-03-[address] [facility] - Test 00:00:00 WELLNESS (YEAR 2 or Medical Center FIRST YEAR if no IPPE) [code = MEDICARE ANNUAL WELLNESS (YEAR 2 or FIRST YEAR if no IPPE)] Future Scheduled 2015-03-[address] [facility] - Test 00:00:00 WELLNESS (YEAR 2 or Medical Center FIRST YEAR if no IPPE) [code = MEDICARE ANNUAL WELLNESS (YEAR 2 or FIRST YEAR if no IPPE)] Future Scheduled 2015-03-[address] [facility] - Test 00:00:00 WELLNESS (YEAR 2 or Medical Center FIRST YEAR if no IPPE) [code = MEDICARE ANNUAL WELLNESS (YEAR 2 or FIRST YEAR if no IPPE)] Future Scheduled 2007-08-29 SHINGLES VACCINES ([address] [facility] - Test 00:00:00 of 2) [code = SHINGLES Medic al Center VACCINES (1 of 2)] Future Scheduled 2007-08-29 SHINGLES VACCINES ([address] [facility] - Test 00:00:00 of 2) [code = SHINGLES Medic al Center VACCINES (1 of 2)] Future Scheduled 2007-08-29 SHINGLES VACCINES ([address] [facility] - Test 00:00:00 of 2) [code = SHINGLES Medic al Center VACCINES (1 of 2)] Future Scheduled 1976 DTAP/TDAP/TD [facility]ACCINES [facility] Test 00:00:00 (1 - Tdap) [code = Medical C enter DTAP/TDAP/TD VACCINES (1 - Tdap)] Future Scheduled 1976 DTAP/TDAP/TD VACCINES [facility] Test 00:00:00 (1 - Tdap) [code = Medical C enter DTAP/TDAP/TD VACCINES (1 - Tdap)] Future Scheduled 1976 DTAP/TDAP/TD VACCINES [facility] Test 00:00:00 (1 - Tdap) [code = Medical C enter DTAP/TDAP/TD VACCINES (1 - Tdap)] Future Scheduled 1969 COVID-19 VACCINE (1) [facility] Test 00:00:00 [code = COVID-[address] VACCINE (1)] Future Scheduled 1969 COVID-19 VACCINE (1) [facility] Test 00:00:00 [code = COVID-[address] VACCINE (1)] Future Scheduled 1969 COVID-19 VACCINE (1) [facility] Test 00:00:00 [code = COVID-[address] VACCINE (1)] Future Scheduled 1967-08-[address] DI[address] EYE EXAM [facility] - Test 00:00:00 [code = DIABETIC EYE Medical Center EXAM] Future Scheduled 1967-08-[address] [facility] - Test 00:00:00 examination Medical Center (regime/therapy) [code = 901747452] Future Scheduled 1967-08-29 Urine screening for [facility] - Test 00:00:00 protein (procedure) Medical Center [code = 601168750] Future Scheduled 1967-08-29 DIABETIC EYE EXAM [facility] Test 00:00:00 [code = DIABETIC EYE Medical Center EXAM] Future Scheduled 1967-08-[address] [facility] - Test 00:00:00 examination Medical Center (regime/therapy) [code = 083774878] Future Scheduled 1967-08-29 Urine screening for [facility] Test 00:00:00 protein (procedure) Medical Center [code = 486379966] Future Scheduled 1967-08-29 DIABETIC EYE EXAM [facility] Test 00:00:00 [code = DIABETIC EYE Medical Center EXAM] Future Scheduled 1967-08-[address] [facility] - Test 00:00:00 examination Medical Center (regime/therapy) [code = 280039898] Future Scheduled 1967-08-29 Urine screening for [facility] Test 00:00:00 protein (procedure) Medical Center [code = 807040007] Future Scheduled 1961-08-[address] [facility] - Test 00:00:00 0-64 YRS (1 of 1 - Medical C enter PPSV23) [code = PNEUMOCOCCAL VACCINE 0-64 YRS (1 of 1 - PPSV23)] Future Scheduled 1963-08-[address] [facility] - Test 00:00:00 0-64 YRS (1 of 1 - Medical C enter PPSV23) [code = PNEUMOCOCCAL VACCINE 0-64 YRS (1 of 1 - PPSV23)] Future Scheduled 1963-08-[address] [facility] - Test 00:00:00 0-64 YRS (1 of 1 - Medical C enter PPSV23) [code = PNEUMOCOCCAL VACCINE 0-64 YRS (1 of 1 - PPSV23)] Future Scheduled DIABETES: RETINAL EYE [facility] [code = DIABETES: RETINAL EYE EXAM] Future Scheduled DIABETIC FOOT EX[facility] Test [code = DIABETIC FOOT EXAM] Future Scheduled [facility] [[facility] = [facility]-19 VACCINE (1)] Future Scheduled [facility] [code = COLONOSCOPY SCREENING] Future Scheduled SHINGLES VACCINES (#1) [facility] Test [code = SHINGLES VACCINES (#1)] Future Scheduled INFLUENZA VACCINE [facility] Test [code = INFLUENZA VACCINE] Future Scheduled [facility] [code = DIABETES: RETINAL EYE EXAM] Future Scheduled DIABETIC FOOT EXAM [facility] Test [code = DIABETIC FOOT EXAM] Future Scheduled COVID[facility]19 [facility] [code = COVID-19 VACCINE (1)] Future Sched[facility] [code = COLONOSCOPY SCREENING] Future Scheduled SHINGLES VACCINES (#1) [facility] Test [code = SHINGLES VACCINES (#1)] Future Scheduled INFLUENZA VACCINE [facility] Hospital Test [code = INFLUENZA VACCINE] Encounters Start End Encounter Admission Attending Care Care Encounter Source Date/Time Date/Time Type Type Clinicians Facility Department ID 2020-05-21 2020-05-[address]1 [id number] Methodi 00:00:00 00:00:[id number] [facility] 3.430.2.7 Hospi ta .3.584801 l .8 2020-05-21 2020-05-[address]1 [id number] Methodi 00:00:00 00:00:[id number] [facility] 3.430.2.7 Hospi ta .3.021226 l .8 2019-12-09 2019-12-[address]1 [id number] Methodi 09:56:00 16:06:00 Encounter Natalie Headley [id number] 3.430.2.7 Hospit a .3.558368 l .8 2019-12-09 2019-12-10 [facility] 1.2.840.1 [id number] Methodi 09:56:00 16:06:00 Encounter Natalie Headley [id number] 3.430.2.7 Hospit a .3.863631 l .8 2019-12-09 2019-12-09 Anesthesia Sameer Donohue 1.2.840.1 [id number] Methodi 13:47:00 16:02:00 Event Elvie Larkin [id number] 3.430.2.7 Hospit a .3.322487 l .8 2019-12-09 2019-12-09 Anesthesia Sameer Donohue 1.2.840.1 [id number] Methodi 13:47:00 16:02:00 Event Elvie Larkin [id number] 3.430.2.7 Hospit a .3.427492 l .8 2019-12-09 2019-12-09 Surgery Shayna, 1.2.840.1 [id number] Methodi 13:10:00 14:55:[address] 3.430.2.7 Hospit a .3.773990 l .8 2019-12-09 2019-12-09 Surgery Shayna, 1.2.840.1 [id number] Methodi 13:10:00 14:55:[id number] 3.430.2.7 Hospit a .3.694483 l .8 2019-12-05 2019-12-05 Hospital Shayna, 1.2.840.1 [id number] Methodi 13:17:37 23:59:00 Encounter Uttam [id number] 3.430.2.7 Hospit a .3.223441 l .8 2019-12-05 2019-12-05 Hospital Shayna, 1.2.840.1 [id number] Methodi 13:17:37 23:59:00 Encounter Uttam [id number] 3.430.2.7 Hospit a .3.720809 l .8 2019-12-05 2019-12-05 Pre-Admiss Shayna, 1.2.840.1 [id number] Methodi 12:02:21 13:02:21 ion Uttam [id number] Testing 3.430.2.7 Hospit a .3.936367 l .8 2019-12-05 2019-12-05 Pre-Admiss Shayna, 1.2.840.1 [id number] 2 [id number] Methodi 12:02:21 13:02:21 ion Uttam 33238.1.[address] Testing 3.430.2.7 Hospit a .3.151541 l .8 2019-12-05 2019-12-05 Travel 1.2.840.1 1.2.961.682 4518 434141 Methodi 00:00:00 00:00:[address] 3.430.2.7 0.2.7.3.698 Ho spita .3.171063 084.8 l .8 2019-12-05 2019-12-05 Travel 1.2.840.1 1.2.871.684 7888 867997 Methodi 00:00:00 00:00:[address] 3.430.2.7 0.2.7.3.698 Ho spita .3.174403 084.8 l .8 2019-11-29 2019-11-29 Travel 1.2.840.1 1.2.282.662 3664 626129 Methodi 00:00:00 00:00:[address] 3.430.2.7 0.2.7.3.698 Ho spita .3.603658 084.8 l .8 2019-11-29 2019-11-29 Travel 1.2.840.1 1.2.147.804 9234 597298 Methodi 00:00:00 00:00:[address] 3.430.2.7 0.2.7.3.698 Ho spita .3.702141 084.8 l .8 2019-11-05 2019-11-05 Travel 1.2.840.1 1.2.182.898 7897 392130 Methodi 00:00:00 00:00:[address] 3.430.2.7 0.2.7.3.698 Ho spita .3.938204 084.8 l .8 2019-10-25 2019-10-25 Travel 1.2.840.1 1.2.049.545 1403 574629 Methodi 00:00:00 00:00:[address] 3.430.2.7 0.2.7.3.698 Ho spita .3.397162 084.8 l .8 2019-10-21 2019-10-21 Travel 1.2.840.1 1.2.642.589 7469 863778 Methodi 00:00:00 00:00:[address] 3.430.2.7 0.2.7.3.698 Ho spita .3.823794 084.8 l .8 2019-10-10 2019-10-10 [place] 1.2.840.114 [id number] 12:34:44 23:59:00 Encounter [place] 350.1.13.10 [place] 4.2.7.2.686 [place] [id number] [id number] 2019-10-10 2019-10-10 Referral Clerk Rodney Steen [place] 1.2.840.114 [id number] 12:38:05 12:53:05 Visit Lab Main [place] 350.1.13.10 [place] 4.2.7.2.686 [place] [id number] [address] 2019-09-03 2019-09-03 Veronica [facility] [place] - [id number] V illage 00:00:00 00:00:00 [facility] traci o, DISCOTHEQUE DANCER: Medical - Practi c [address] VM_HOU_V@H_ e [facility], [place] [address], [place] [address] , Ph. 2019-07-23 2019-07-23 Veronica [facility] [place] - [id number] V illage 00:00:00 00:00:00 [facility] traci elkins, DISCOTHEQUE DANCER: Medical - Practi c [address]_HOU_V@H_ e [facility], [place] [address], [place] [address] , Ph. Results Test Description Test Time Test Comments Results Result Comments Source ECG 12 lead 2019-12-10 21:17:46 Test Item Value Reference Range Interpretation Comme nts Ventricular rate (test code = 253) Atrial rate (test code = 255) MD interval (test code = 266) QRSD interval (test code = 260) QT interval (test code = 264) QTC interval (test code = 265) P axis 1 (test code = 267) QRS axis 1 (test code = 268) T wave axis (test code = 270) EKG impression (test code = 273) Normal sinus rhythm-Nonspecific ST and T wave abnormality-Prolonged QT-Abnormal ECG-In automated comparison with ECG of 05-DEC-2019 13:07,-Nonspecific T wave abnormality, worse in Lateral leads[facility] [id number] 21:17:46 Test Item Value Reference Range Interpretation Comments Ventricular rate (test code = 253) Atrial rate (test code = 255) MD interval (test code = 266) QRSD interval (test code = 260) QT interval (test code = 264) QTC interval (test code = 265) P axis 1 (test code = 267) QRS axis 1 (test code = 268) T wave axis (test code = 270) EKG impression (test code = 273) [facility] [id number] 00:38:18EXAMINATION: OR FL < 1 HOUR CLINICAL HISTORY: None provided. IMPRESSION: 1. Fluoroscopy was provided in the operating. I was not present during the procedure.2. Please refer to the operative reportfor findings.3. Total Dose: 114 fluoroscopic images. 27.1 minutes of fluoroscopy time. Interface,Radiology Results 12/09/2019 7:41 PM CDT EXAMINATION: OR FL < 1 HOURCLINICAL HISTORY: None provided.IMPRESSION:1. Fluoroscopywas provided in the operating. I was not present during the procedure.2. Please refer to the operative report for findings.3. Total Dose: 114 fluoroscopic images. 27.1 minutes of fluoroscopy time.[facility] [place] [facility] [id number] 00:38:18EXAMINATION: OR FL < 1 HOUR CLINICAL HISTORY: None provided. IMPRESSION: 1. Fluoroscopy was provided in the operating. I was not present during the procedure.2. Please refer to the operative reportfor findings.3. Total Dose: 114 fluoroscopic images. 27.1 minutes of fluoroscopy time.[facility],Radiology Results 12/09/2019 7:41 PM CDT EXAMINATION: OR FL < 1 HOURCLINICAL HISTORY: None provided.IMPRESSION:1. Fluoroscopywas provided in the operating. I was not present during the procedure.2. Please refer to the operative report for findings.3. Total Dose: 114 fluoroscopic images. 27.1 minutes of fluoroscopy time.[facility]2020-10-05 18:56:58WeAntonieta kingsley CRNA 12/09/2019 1:57 PMAirway Date/Time: 12/09/2019 1:57 PMPerformed by: Antonieta Lawrence CRNAAuthorized by: Sameer Donohue MD Location: ORUrgency: ElectiveDifficult Airway: No Anesthesiologist: Sameer Donohue MDResident/SUPERVISOR COMPUTER OPERATIONS/AA: Antonieta Lawrence CRNAPerformed by: resident/SUPERVISOR COMPUTER OPERATIONS/AAPreoxygenated with 100% O2: Yes C-spine Precautions Maintained Throughout: Yes Mask Ventilation: Not attemptedFinal Airway Type: Supraglottic airwayFinal LMA: I-GelLMA Size: 4Number of Attempts at Approach: [address] [place], [place] [address]20-10-05 18:56:58WeAntonieta kingsley CRNA 12/09/2019 1:57 PMAirway Date/Time: 12/09/2019 1:57 PMPerformed by: Antonieta Lawrence CRNAAuthorized by: Sameer Donohue MD Location: ORUrgency: ElectiveDiffselect specialty [facility] Airway: No Anesthesiologist: Sameer Donohue, SKYesident/SUPERVISOR COMPUTER OPERATIONS/AA: Antonieta Lawrence CRNAPerformed by: resident/SUPERVISOR COMPUTER OPERATIONS/AAPreoxygenated with 100% O2: Yes C-spine Precautions Maintained Throughout: Yes Mask Ventilation: Not attemptedFinal Airway Type: Supraglottic airwayFinal LMA: I-GelLMA Size: 4Number of Attempts at Approach: [address] [place] [address] Pre/Post [id number] 05:44:14 Test Item Value Reference Range Interpretation Comments Ventricular rate (test code = 253) Atrial rate (test code = 255) MD interval (test code = 266) QRSD interval [...] CABALLERO, Htut (2056) on 12/06/2019 12:44:11 AM [facility] Pre/Post [id number] 05:44:14 Test Item Value Reference Range Interpretation Comments Ventricular rate (test code = 253) Atrial rate (test code = 255) MD interval (test code = 266) QRSD interval [...] Baker MD ([id number]) on 12/06/2019 12:44:11 AM [facility] Chest 2 [id number] 21:56:18EXAMINATION: XR CHEST 2 VW CLINICAL HISTORY: Z01.818 Encounter for other preprocedural examination, PRE OP COMPARISON: None. IMPRESSION: Heart and mediastinum: Cardiomediastinal silhouette is prominent. Atherosclerotic calcifications of the aortic arch. Lungs and pleura: There is no focal airspace disease, pleural effusion or pneumothorax. Bones: No acute abnormality. Spinal cord stimulator deviceseen overlying the thoracic spine. [facility]-[id number] Dictated and approved by residential gas heat technician/fellow: Joseph Malik M.D. I, Daniel Abbott, personally reviewed the images and resident's/fellow's findings and agree with the final report.[facility], Radiology Results Incoming - 12/05/2019 4:59 PM CDT EXAMINATION: XR CHEST 2 VWCLINICAL HISTORY: Z01.818 Encounter for other preprocedural examination, PRE OPCOMPARISON: None.IMPRESSION:Heart and mediastinum: Cardiomediastinal silhouette is prominent. Atherosclerotic calcifications of the aortic arch.Lungs and pleura: There is no focal airspace disease, pleural effusion or pneumothorax.Bones: No acute abnormality.Spinal cord stimulator device seen overlying the thoracic spine.[facility]-[id number] and approved by residential gas heat technician/fellow: Nate Schmitz, Daniel Abbott, personallyreviewed the images and resident's/fellow's findings and agree with the final report. [facility] Chest 2 [id number] 21:56:18EXAMINATION: XR CHEST 2 VW CLINICAL HISTORY: Z01.818 Encounter for other preprocedural examination, PRE OP COMPARISON: None. IMPRESSION: Heart and mediastinum: Cardiomediastinal silhouette is prominent. Atherosclerotic calcifications of the aortic arch. Lungs and pleura: There is no focal airspace disease, pleural effusion or pneumothorax. Bones: No acute abnormality. Spinal cord stimulator deviceseen overlying the thoracic spine. [facility]-[id number] Dictated and approved by residential gas heat technician/fellow: Joseph Malik M.D. I, Daniel Abbott, personally reviewed the images and resident's/fellow's findings and agree with the final report.[facility], Radiology Results Incoming - 12/05/2019 4:59 PM CDT EXAMINATION: XR CHEST 2 VWCLINICAL HISTORY: Z01.818 Encounter for other preprocedural examination, PRE OPCOMPARISON: None.IMPRESSION:Heart and mediastinum: Cardiomediastinal silhouette is prominent. Atherosclerotic calcifications of the aortic arch.Lungs and pleura: There is no focal airspace disease, pleural effusion or pneumothorax.Bones: No acute abnormality.Spinal cord stimulator device seen overlying the thoracic spine.[facility]-[id number] and approved by residential gas heat technician/fellow: Nate Schmitz, Daniel Abbott, personallyreviewed the images and resident's/fellow's findings and agree with the final report. [facility] ([facility])2019-10-04 22:28:00 Test Item Value Reference Range Interpretation Comments SARS-COV2/RT-PCR (test Negative Not Detected, Negative, code = 0150213) See external report for linked test SARS-COV-2 PERFORMING LAB [facility] (test code = 3903076) Negative result for this test determines that [...] 564(g) of the Act.Fact Sheet for Healthcare Providers:https://www.Tesaris/sites/default/files/product/documents/Fact_Shee h_OP_Syzqzxpce_Cqdj_DXAA-RxS-7.pdfFact Sheet for Healthcare Patients:https://www.Tesaris/sites/default/files/product/ documents/Qwaw_Mtjil_Avljbyfe_Gdkj_HZYS-TmM-7.pdfPerforming Laboratory:[facility], [place] [address]DJRK-AFD2/RT-PCR ([facility])2019-10-01 04:23:00 Test Item Value Reference Range Interpretation Comments SARS-COV2/RT-PCR (test code Negative Not Detected, Negative, = 6361275) See external report for linked test SARS-COV-2 PERFORMING LAB [facility] (test code = 8838278) Negative results do not preclude SARS-CoV-2 infection [...] of the Act.Fact Sheet for Healthcare Pro viders:https://www.GridBridge/Documents/Xpert%20Xpress%20SARS%20CoV-2/Fact%20Sh eets/302-3802%20KVLO-VEA-3%20HEALTHCARE%20PROVIDERS%20FACT%20SHEET.pdfFact Sheet for Healthcare Patients:https://www.DTVCast/Documents/Xpert%20Xpress%20SARS%20CoV-2/Fact%20Sheets/302-3801%20SARS-COV -2%20PATIENT%20FACT%20SHEET.pdfPerforming Laboratory:[address].[place], [place] [address]CDQXMOT IMAGING, MULTI, PHARM, SPECT 2019-02-21 15:54:00Referring: Dr. Schultz [facility]: MYOCARDIAL PERFUSION SPECT IMAGING (Rest/Stress)CPT CODE: 23968 INDICATION: Renal transplant evaluation, hypertension, shortness of [...] MDReport Verified Date/Time: 02/21/2019 15:54:30 Reading Location: [address] Reading Room [id number] 17:11:00 Test Item Value Reference Range Interpretation Comments PROSTATE SPECIFIC ANTIGEN (BEAKER) 0.8 ng/mL 0.0-4.0 (test code = 844) HEPATITIS B SURFACE [id number] 17:11:00 Test Item Value Reference Range Interpretation Comments HEPATITIS B SURFACE ANTIBODY 612.9 mIU/mL <8.0 H (BEAKER) (test code = 647) PROTHROMBIN TIME/[id number] 14:59:00 Test Item Value Reference Range Interpretation Comments PROTIME (BEAKER) (test code = 15.6 seconds 11.7-14.7 H 759) INR (BEAKER) (test code = 370) 1.2 <=5.9 RECOMMENDED COUMADIN/WARFARIN INR THERAPY RANGESSTANDARD DOSE: 2.0 - 3.0 Includes: PROPHYLAXIS forvenous thrombosis, systemic embolization; TREATMENT for venous thrombosis and/or pulmonary embolus.HIGH RISK: Target INR is 2.5-3.5 for patients with mechanical heart valves.BASIC METABOLIC [id number] 14:58:00 Test Item Value Reference Range Interpretation [...] APPLICABLE FOR DIALYSIS PATIEN TS. HEPATIC FUNCTION [id number] 14:53:00 Test Item Value Reference Range Interpretation [...] 6-55 347) CBC W/PLT COUNT & AUTO [id number] 14:19:00 Test Item Value Reference Range Interpretation [...] = 2801) FLOW PRA CLASS I AND [id number] 12:02:00 Test Item Value Reference Range Interpretation Comments DATE OF SERUM (BEAKER) 9110312 (test code = 2289) SERUM # (BEAKER) (test 970163 code = 2290) FLOW PRA CLASS I AND II See Scanned Report (test code = 2421) HEPATITIS B SURFACE [id number] 13:18:00 Test Item Value Reference Range Interpretation Comments HEPATITIS B SURFACE ANTIBODY < mIU/mL <8.0 (BEAKER) (test code = 647) [id number] 13:08:00 Test Item Value Reference Range Interpretation Comments PROSTATE SPECIFIC ANTIGEN (BEAKER) 0.9 ng/mL 0.0-4.0 (test code = 844) FLOW PRA CLASS I AND [id number] 16:00:00 Test Item Value Reference Range Interpretation Comments DATE OF SERUM (BEAKER) 6040312 (test code = 2289) SERUM # (BEAKER) (test 10290705 code = 2290) FLOW PRA CLASS I AND II See Scanned Report (test code = 2421) BASIC METABOLIC [id number] 15:51:00 Test Item Value Reference Range Interpretation [...] APPLICABLE FOR DIALYSIS PATIEN TS. HEPATIC FUNCTION [id number] 15:48:00 Test Item Value Reference Range Interpretation [...] 6-55 347) CBC W/PLT COUNT & AUTO [id number] 15:11:00 Test Item Value Reference Range Interpretation [...] (test code = 417) 0.00AFB CULTURE + [id number] 19:58:00 Test Item Value Reference Range Interpretation Comments CULTURE (BEAKER) (test No acid-fast bacilli code = 1095) isolated in 42 days AFB SMEAR (BEAKER) No acid fast bacilli (test code = 994) seen AFB CULTURE + [id number] 19:58:00 Test Item Value Reference Range Interpretation Comments CULTURE (BEAKER) (test No acid-fast bacilli code = 1095) isolated in 42 days AFB SMEAR (BEAKER) No acid fast bacilli (test code = 994) seen AFB CULTURE + [id number] 18:21:00 Test Item Value Reference Range Interpretation Comments CULTURE (BEAKER) (test No acid-fast bacilli code = 1095) isolated in 42 days AFB SMEAR (BEAKER) No acid fast bacilli (test code = 994) seen POCT-GLUCOSE [id number] 10:30:00 Test Item Value Reference Range Interpretation Comments POC-GLUCOSE METER 468 mg/dL 70-110 HH TESTED AT [facility] [address] ([facility]) (test code = JANICE NUÑEZ [place] 1538) [address] CREATINE KINASE (CK), TOTAL AND [id number] 08:31:00 Test Item Value Reference Range Interpretation Comments CREATINE KINASE TOTAL (AKER) 42 U/L 29-200 (test code = 380) CREATINE KINASE-MB (BEAKER) (test 2.3 ng/mL 0.0-6.6 code = 750) CREATINE KINASE-MB INDEX (AKER) 5.5 % (test code = 395) Effective 01/21/2014: CK-MB Reference Range ChangeNew: 0.0-6.6 Previous: 0.0-4.9CK-MB Reference Range:<6.7 Normal6.7-10.0 Borderline>10.0 AbnormalTROPONIN [id number] 08:31:00 Test Item Value Reference Range Interpretation [...] acute neurological disease, and persistent tachyarrhythmia.BASIC METABOLIC [id number] 08:27:00 Test Item Value Reference Range Interpretation [...] S NOT APPLICABLE FOR DIALYSIS PATIEN TS. [id number] 08:24:00 Test Item Value Reference Range Interpretation Comments MAGNESIUM (BEAKER) (test code = 2.4 mg/dL 1.6-2.6 627) CBC W/PLT COUNT & AUTO [id number] 08:17:00 Test Item Value Reference Range Interpretation [...]
[2020-11-10 08:21] LABS: Absolute Lymphocytes (CBC) 0.8 K/uL (0.7-4.9); Hematocrit 26.5 % (39.6-49.0); Lymphocytes % 9.4 % (15.3-44.8); MPV 8.8 fL (7.6-11.3); RBC Red Blood Cell Count 2.74 M/uL (4.33-5.43)
[2020-11-10 08:23] LABS: Protime INR 1.28
--- NOTE | 2020-11-10 08:24 | RAD REPORT ---
EXAM DESCRIPTION: RAD - Chest Single View - 11/10/2020 8:17 am CLINICAL HISTORY: PAIN COMPARISON: Chest Single View dated 10/20/2020; Chest Single View dated 10/07/2020; Chest Single View d ated 09/29/2020; Chest Single View dated 08/31/2020 FINDINGS: Lines: None. Lungs: No evidence of edema or pneumonia. Pleural: No significant pleural effusions or pneumothorax. Cardiac: Cardiomegaly. Bones: No acute fractures. Other: Spinal stimulator. IMPRESSION: No acute cardiopulmonary disease.
[2020-11-10] MEDS ORDERED: ONDANSETRON 4 MG/2 ML VIAL ONE (08:49)
[2020-11-10] MEDS ORDERED: MORPHINE 2 MG/ML SYR ONE ×2 (08:49→11:04)
[2020-11-10 08:50] LABS: ALT/SGPT 11 U/L (12-78); AST/SGOT 12 U/L (15-37); Albumin 2.8 g/dL (3.4-5.0); Alkaline Phosphatase 287 U/L (45-117); BUN Blood Urea Nitrogen 96 mg/dL (7-18); Bicarbonate 18 mmol/L (21-32); Bilirubin Direct 1.5 mg/dL (0-0.2); Bilirubin Total 1.9 mg/dL (0.2-1.0); Glucose Level 106 mg/dL (74-106); Magnesium 2.6 mg/dL (1.8-2.4); Potassium 4.5 mmol/L (3.5-5.1); Protein, Total 6.6 g/dL (6.4-8.2); Sodium Level 131 mmol/L (136-145); Troponin (Emerg Dept Use Only) < 0.02 ng/mL (0.0-0.045)
--- NOTE | 2020-11-10 08:52 | RAD REPORT ---
EXAM DESCRIPTION: CT - Spine Lumbar Wo Con - 11/10/2020 8:36 am CLINICAL HISTORY: LOWER BACK PAIN COMPARISON: [place] Protocol dated 07/11/2020 TECHNIQUE: Axial noncontrast CT imaging of the lumbar spine was performed with coronal and sagittal re-formatted images. All CT scans are performed using dose optimization technique as appropriate and may include automated exposure control or mA/KV adjustment according to patient size. FINDINGS: Status post posterior laminectomy and L4 through S1 fusion with interbody spacers. There i s similar anterolisthesis of L5 on S1. There is similar retrolisthesis of approximately 6 millimeters of L3 with respect L4. Similar advanced degenerative changes at L3-4 and even more severe degenerati ve changes are present at L2-3 where there is pronounced endplate irregularity and vacuum disc phenom enon. Spinal stimulator noted. No acute fractures identified. Severe atherosclerosis. There is free f luid in the pelvis which is nonspecific. This may be related to cirrhosis. IMPRESSION: No acute fracture of the lumbar spine. No significant change since 07/11/2020. Re- demon strated similar chronic malalignment as noted above with pronounced endplate irregularity and degener ative changes at the L2-3 level. New small volume of ascites
--- NOTE | 2020-11-10 09:22 | EDPHYS ---
Physician Documentation [facility] Name: Alexis Urbano Age: 65 yrs Sex: Male : 1955 Arrival Date: 11/10/2020 Time: 07:49 Bed 26 Private MD: ED Physician Homar Munoz HPI: 11/10 09:11 This 65 yrs old Male presents to ER via EMS with complaints of Missed Dialysis.chris 09:11 The patient has shortness of breath at rest, with light activity. Onset: The chris symptoms/episode began/occurred 2 day(s) ago. Duration: The symptoms are continuous, and are steadily getting worse. The patient's shortness of breath is aggravated by exertion, light activity, supine position, walking. missed dialysis x 2 episodes. Associated signs and symptoms: Pertinent positives: non-productive cough. Severity of symptoms: At their worst the symptoms were moderate in the emergency department the symptoms are unchanged. The patient has experienced similar episodes in the past, multiple times. Historical: - Allergies: 07:55 No Known Drug Allergies; hb - PMHx: 07:55 Diabetes - NIDDM; ESRD; Dialysis; M/W/F; COPD; GERD; High Cholesterol; Hypertension; hb - PSHx: 07:55 Fistula placed on left arm; hb - Immunization history:: Adult Immunizations up to date. - Social history:: Smoking status: Patient denies any tobacco usage or history of. - Family history:: not pertinent. ROS: 09:11 Constitutional: Negative for fever, chills, and weight loss, Eyes: Negative for injury, chris pain, redness, and discharge, ENT: Negative for injury, pain, and discharge, Neck: Negative for injury, pain, and swelling, Cardiovascular: Negative for chest pain, palpitations, and edema, Abdomen/GI: Negative for abdominal pain, nausea, vomiting, diarrhea, and constipation, : Negative for injury, bleeding, discharge, and swelling, MS/Extremity: Negative for injury and deformity, Skin: Negative for injury, rash, and discoloration, Neuro: Negative for headache, weakness, numbness, tingling, and seizure, Psych: Negative for depression, anxiety, suicide ideation, homicidal ideation, and hallucinations, Allergy/Immunology: Negative for hives, rash, and allergies, Endocrine: Negative for neck swelling, polydipsia, polyuria, polyphagia, and marked weight changes. 09:11 Respiratory: Positive for cough, with no reported sputum. 09:11 Back: Positive for decreased range of motion, pain at rest, pain with movement, of the lumbar area. Exam: 09:11 Constitutional: This is a well developed, well nourished patient who is awake, alert, chris and in no acute distress. Head/Face: Normocephalic, atraumatic. Eyes: Pupils equal round and reactive to light, extra-ocular motions intact. Lids and lashes normal. Conjunctiva and sclera are non-icteric and not injected. Cornea within normal limits. Periorbital areas with no swelling, redness, or edema. ENT: Nares patent. No nasal discharge, no septal abnormalities noted. Tympanic membranes are normal and external auditory canals are clear. Oropharynx with no redness, swelling, or masses, exudates, or evidence of obstruction, uvula midline. Mucous membranes moist. Neck: Trachea midline, no thyromegaly or masses palpated, and no cervical lymphadenopathy. Supple, full range of motion without nuchal rigidity, or vertebral point tenderness. No Meningismus. Chest/axilla: Normal chest wall appearance and motion. Nontender with no deformity. No lesions are appreciated. Respiratory: Lungs have equal breath sounds bilaterally, clear to auscultation and percussion. No rales, rhonchi or wheezes noted. No increased work of breathing, no retractions or nasal flaring. Abdomen/GI: Soft, non-tender, with normal bowel sounds. No distension or tympany. No guarding or rebound. No evidence of tenderness throughout. Back: No spinal tenderness. No costovertebral tenderness. Full range of motion. Male : Normal genitalia with no discharge or lesions. Skin: Warm, dry with normal turgor. Normal color with no rashes, no lesions, and no evidence of cellulitis. MS/ Extremity: Pulses equal, no cyanosis. Neurovascular intact. Full, normal range of motion. Neuro: Awake and alert, GCS 15, oriented to person, place, time, and situation. Cranial nerves II-XII grossly intact. Motor strength 5/5 in all extremities. Sensory grossly intact. Cerebellar exam normal. Normal gait. Psych: Awake, alert, with orientation to person, place and time. Behavior, mood, and affect are within normal limits. 09:11 Cardiovascular: Rate: normal, Rhythm: regular, Pulses: Pulses are 4+ in bilateral radial, brachial, femoral, popliteal, posterior tibial and and dorsalis pedis arteries.. Heart sounds: normal, Edema: is not appreciated, JVD: is noted bilaterally, to 3 cm. 09:22 ECG was reviewed by the Attending Physician. [facility] Vital Signs: 07:52 BP 156 / 46; Pulse 78; Resp 16; Temp 98.2; Pulse Ox 97% on R/A; Weight 74.84 kg; Height hb 5 ft. 8 in. (172.72 cm); Pain 10/10; 09:00 BP 160 / 58; Pulse 74; Resp 17; Pulse Ox 96% ; hb 07:52 Body Mass Index 25.09 (74.84 kg, 172.72 cm) hb MDM: 07:57 Patient medically screened. [facility] 09:16 Differential diagnosis: Anemia Bronchitis CHF exacerbation, Chronic Obstructive chris Pulmonary Disease pneumonia, Pneumothorax pulmonary edema, reactive airway disease. Antibiotic administration: Not indicated. The patient's Wells Deep Vein Thrombosis Score was calculated as follows: Total Score: 0-2 Pts- Low Risk. The patient's pulmonary embolism risk score was calculated as follows: Total Score: 0-2 points. This patient was found to be at low risk for a pulmonary embolism by using the Well's assessment criteria. Immunization status: Influenza vaccine:. Data reviewed: vital signs, nurses notes, lab test result(s), EKG, radiologic studies, CT scan, plain films. Data interpreted: machine tender: rate is 78 beats/min, Pulse oximetry: on room air. Test interpretation: by ED physician or midlevel provider: ECG, plain radiologic studies. Counseling: I had a detailed discussion with the patient and/or guardian regarding: the historical points, exam findings, and any diagnostic results supporting the discharge/admit diagnosis, lab results. 11/10 08:05 Order name: Basic Metabolic Panel hb 11/10 08:05 Order name: CBC with Diff; Complete Time: 08:42 hb 11/10 08:05 Order name: LFT's hb 11/10 08:05 Order name: Magnesium hb 11/10 08:05 Order name: NT PRO-BNP hb 11/10 08:05 Order name: PT-INR; Complete Time: 08:42 hb 11/10 08:05 Order name: Troponin (emerg Dept Use Only) hb 11/10 08:06 Order name: Basic Metabolic Panel EDMS 11/10 08:06 Order name: Liver (Hepatic) Function EDMS 11/10 08:06 Order name: Magnesium EDMS 11/10 09:54 Order name: SARS-COV-2 RT PCR EDMS 11/10 18:25 Order name: Glucose, Ancillary Testing EDMS 11/10 18:38 Order name: Phosphorus EDMS 11/10 08:05 Order name: XRAY Chest (1 view); Complete Time: 08:42 hb 11/10 08:05 Order name: EKG; Complete Time: 08:06 hb 11/10 08:05 Order name: EKG - Nurse/Tech; Complete Time: 08:28 hb 11/10 08:05 Order name: IV Saline Lock; Complete Time: 08:28 hb 11/10 08:23 Order name: CT Lumbar Spine Wo Con; Complete Time: 09:09 chris 11/10 18:38 Order name: Magnesium EDMS 11/10 21:15 Order name: Glucose, Ancillary Testing EDMS 11/11 02:44 Order name: CBC with Automated Diff EDMS 11/11 03:00 Order name: Renal Panel EDMS 11/11 08:37 Order name: Glucose, Ancillary Testing EDMS 11/11 09:49 Order name: Glucose, Ancillary Testing EDMS 11/11 11:52 Order name: Glucose, Ancillary Testing EDMS 11/11 16:34 Order name: Glucose, Ancillary Testing EDMS 11/10 08:05 Order name: Labs collected and sent; Complete Time: 08:28 hb 11/10 08:05 Order name: O2 Per Protocol; Complete Time: 08:05 hb 11/10 08:05 Order name: O2 Sat Monitoring; Complete Time: 08:05 hb EC:22 Rate is 50 beats/min. Rhythm is regular. QRS [place] is Normal. TN interval is normal. QRS chris interval is normal. QT interval is normal. No Q waves. T waves are Normal. ST Segment is depressed in leads I, aVL, V3, V4, V5, V6. Clinical impression: NSR w/ Non-specific ST/T Changes and Sinus bradycardia. Interpreted by me. Reviewed by me. Administered Medications: 08:29 Drug: morphine 2 mg Route: IVP; Site: right antecubital; hb 08:29 Drug: Zofran (Ondansetron) 4 mg Route: IVP; Site: right antecubital; hb 10:41 Drug: morphine 2 mg Route: IVP; Site: right antecubital; hb Disposition Summary: 11/10/20 09:20 Hospitalization Ordered Hospitalization Status: Observation chris Provider: Sen Lagos cha Condition: Stable chris Problem: new chris Symptoms: are unchanged chris Bed/Room Type: Standard chris Location: [facility] ER HOLD(11/10/20 16:15) sv Room Assignment: ERHOLD-(11/10/20 16:15) sv Diagnosis - Dyspnea, unspecified chris - End stage renal disease - on HD chris - Low back pain chris Forms: - Medication Reconciliation Form chris - SBAR form chris Signatures: Dispatcher [employer] EDMS Jeniffer Joseph Stephanie, RN RN sv Homar Munoz MD MD cha Baxter, Heather, RN RN hb Corrections: (The following items were deleted from the chart) 09:03 08:26 CORONAVIRUS+MR.LAB.BRZ ordered. EDMS EDMS 13:08 09:20 Telemetry/MedSurg (observation) chris sv 13:08 09:20 chris sv 15:23 13:08 [facility] ER HOLD sv bd 15:23 13:08 ERHOLD- sv bd 15:35 15:23 Telemetry/MedSurg (observation) bd bd 15:35 15:23 210 bd bd 15:39 15:35 [facility] ER HOLD bd sv 15:39 15:35 bd sv 15:41 15:39 210 sv sv 16:15 15:39 Telemetry/MedSurg (Inpatient) sv sv 16:15 15:41 sv sv
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
[2020-11-10 09:48] LABS: NT PRO-BNP > 175000 pg/mL (<125)
[2020-11-10] MEDS ORDERED: HYDRALAZINE HCL 20 MG/ML VIAL IV PRN (12:20)
[2020-11-10] MEDS ORDERED: ONDANSETRON 4 MG/2 ML VIAL IV PRN (12:29)
[2020-11-10] MEDS ORDERED: ACETAMINOPHEN 500 MG TAB PO PRN (12:29)
[2020-11-10] MEDS ORDERED: HYDROCODONE/APAP 5/325 MG TAB PO PRN (12:34)
--- NOTE | 2020-11-10 12:36 | P.HP ---
Certification for Inpatient Patient admitted to: Inpatient With expected LOS: >2 Midnights Patient will require the following post-hospital care: None Practitioner: I am a practitioner with admitting privileges, knowledge of patient current condition, hospital course, and medical plan of care. Services: Services provided to patient in accordance with Admission requirements found in Title 42 Section 412.3 of the Code of Federal Regulations Patient History Date of Service: 11/10/20 Reason for admission: Volume overlaod History of Present Illness: Patient is a 65-year-old male with a past medical history significant for DM 2, ESRD on MWF, COPD, GERD, HLD and hypertension who presents with complaint of shortness of breath that has been ongoing for the past 2 days. Patient reported that his last dialysis was last Monday. Patient indicated that he has not been able to go to dialysis due to worsening chronic back pain and neuropathy. Patient reports associated signs and symptoms of cough. Patient denies any other signs and symptoms. Symptoms are aggravated by exertion and relieved by nothing. Patient decided to present to the hospital due to worsening symptoms. Allergies No Known Drug Allergies Allergy (Mild, Verified 02/25/20 07:41) Unknown Home Medications: Albuterol Inhaler [Ventolin Inhaler*] 2 puff IN QID PRN 09/01/20 Clonidine HCl [Catapres*] 0.2 mg PO BID 09/01/20 Clopidogrel Bisulfate [Plavix*] 75 mg PO DAILY 09/01/20 Gabapentin 300 mg PO BID 09/01/20 Hydralazine HCl 50 mg PO TID 09/01/20 Hydrocodone Bit/Acetaminophen [[place] 10-325 Tablet] 1 tab PO QID PRN 09/01/20 Lactulose 10 gm PO DAILY 09/01/20 Ropinirole HCl 0.5 mg PO BEDTIME 09/01/20 Sevelamer Carbonate [Renvela*] 800 mg PO TID 09/01/20 Benzonatate [Tessalon Perle*] 100 mg PO TID PRN #30 cap 09/03/20 Epoetin [Retacrit] 4,000 unit IV EVERY HD vial 09/03/20 Heparin [Heparin 1,000 units/mL *] 2,000 unit IV EVERY HD PRN vial 09/03/20 Mometasone/Formoterol [Dulera 200 Mcg/5 Mcg Inhaler] 2 puff IH BID #1 inhaler 09/03/20 Nepro Shake [Nepro*] 237 ml PO BID #60 can 09/03/20 Sevelamer Carbonate [Renvela*] 2,400 mg PO TIDWM #270 tablet 09/03/20 levoFLOXacin [Levaquin*] 250 mg PO DAILY #8 tab 09/03/20 predniSONE [Prednisone*] 20 mg PO BID #6 tab 09/03/20 - Past Medical/Surgical History Diabetic: Yes -: Hepatitis-C (cured) -: HTN -: Hyperlipidemia -: Chronic pain -: Chronic anemia -: End-stage renal disease on hemodialysis (MWF) -: Diabetes mellitus type 2 -: Chronic pain -: Chronic anemia -: Cirrhosis of liver on the CT scan -: COPD -: Left knee replacement -: ankle heel spur removed -: Leftankle surgery -: toe surgery -: back surgery -: TENS implant -: Left femur Psychosocial/ Personal History: Patient is . He has 2 children - Family History Sister -: Diabetes, Cancer Notes: colon ca Brother -: Hypertension, Diabetes dad -: Hypertension Notes: Colostomy mom -: Hypertension, Cancer Notes: dementia, Breast Cancer - Social History Smoking Status: Former smoker Alcohol use: No CD- Drugs: No Caffeine use: Yes Review of Systems General: Unremarkable Eyes: Unremarkable ENT: Unremarkable Respiratory: Shortness of Breath, SOB with Excertion Cardiovascular: Unremarkable Gastrointestinal: Unremarkable Musculoskeletal: Back Pain Integumentary: Unremarkable Neurological: Other (Neuropathy ) Lymphatics: Unremarkable Physical Examination - Physical Exam General: Alert, In no apparent distress, Oriented x3 HEENT: Atraumatic, PERRLA, Mucous membr. moist/pink, EOMI, Sclerae nonicteric Neck: Supple, 2+ carotid pulse no bruit, No LAD, Without JVD or thyroid abnormality Respiratory: Diminished Cardiovascular: Regular rate/rhythm, Normal S1 S2 Capillary refill: <2 Seconds Gastrointestinal: Normal bowel sounds, No tenderness Musculoskeletal: No tenderness Integumentary: No rashes Neurological: Normal gait, Normal speech, Normal tone, Normal affect Lymphatics: No axilla or inguinal lymphadenopathy External genitalia: Deferred Rectal: Deferred - Studies Laboratory Data (last 24 hrs) 11/10/20 08:10: PT 14.7 H, INR 1.28 11/10/20 08:10: WBC 8.70, Hgb 8.8 L, Hct 26.5 L, Plt Count 116 L 11/10/20 08:10: Sodium 131 L, Potassium 4.5, BUN 96 H, Creatinine 11.10 H*, Glucose 106, Magnesium 2.6 H, Total Bilirubin 1.9 H, AST 12 L, ALT 11 L, Alkaline Phosphatase 287 H Assessment and Plan - Plan Volume overload. Secondary to missed dialysis. Nephrology consulted. Patient currently having dialysis. Will await further recommendation from scene painter. --ESRD. Patient on MWF schedule. Further management per scene painter. --Acute on chronic back pain. CT spine does not indicate any acute changes. We will manage pain with current pain medication regimen. --DM2 with neuropathy. BS monitoring with sliding scale insulin. Continue gabapentin for his neuropathy. --Acute on chronic COPD exacerbation. Continue O2 therapy, neb treatment with Atrovent\albuterol. Continue home medication. --History of PAD. Continue aspirin. --History of hep C with cirrhosis. Continue supportive care. --Thrombocytopenia. Likely secondary to liver disease. Continue supportive care. --DVT prophylaxis with SCDs. I have had discussion about advanced directives with the patient during this hospital admission. Addressed code status and /or goals of care. Spent more than 15 minutes. Case discussed withpatient and nurse. The following document was completed using voice recognition software. This can produce personnel training officer errors that can at times significantly distort words and phrases. Please interpret any aspect of the note that is nonsensical in light of this fact. Discharge Plan: Home Plan to discharge in: 24 Hours - Advance Directives Does patient have a Living Will: No Does patient have a Durable POA for Healthcare: No - Code Status/Comfort Care Code Status Assessed: Yes Code Status: Full Code Physician Review: Patient Assessed, Agree with Above Assessment and Plan Critical Care: No
[2020-11-10 12:54] VITALS: BMI 25.0
[2020-11-10] MEDS: HYDRALAZINE HCL 25 MG TABLET PO SCH ×3 (14:00→21:00)
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
[2020-11-10] MEDS: SEVELAMER CARBONATE 800 MG TABLET PO SCH (17:00)
[2020-11-10] MEDS ORDERED: GLUCAGON 1 MG/VIAL IM PRN (17:18)
[2020-11-10] MEDS ORDERED: D50W 25 GM/50 ML SYRINGE IV PRN (17:18)
[2020-11-10] MEDS: HYDROCODONE/APAP 10/325 TAB PO PRN (18:25)
[2020-11-10 18:37] LABS: Magnesium 2.4 mg/dL (1.8-2.4)
[2020-11-10] MEDS: ALBUTEROL 2.5 MG/3 ML NEB SOL NEB SCH (20:00)
[2020-11-10] MEDS: IPRATROPIUM BROM 0.5MG/2.5ML NEB SCH (20:00)
[2020-11-10] MEDS: GABAPENTIN 300 MG CAP PO SCH (21:00)
[2020-11-10] MEDS: INSULIN -REGULAR HUMAN 50 UNIT/0.5 ML ML SQ SCH (21:00)
[2020-11-10] MEDS ORDERED: GABAPENTIN 300 MG CAP ONE (21:30)
[2020-11-10] MEDS ORDERED: HYDRALAZINE HCL 25 MG TABLET ONE (23:48)
[2020-11-11] MEDS: HYDROCODONE/APAP 10/325 TAB PO PRN ×2 (01:12→06:41)
[2020-11-11] MEDS ORDERED: HYDROCODONE/APAP 10/325 TAB ONE ×3 (01:36→12:51)
[2020-11-11] MEDS: ALBUTEROL 2.5 MG/3 ML NEB SOL NEB SCH ×3 (02:00→14:00)
[2020-11-11] MEDS: IPRATROPIUM BROM 0.5MG/2.5ML NEB SCH ×3 (02:00→14:00)
[2020-11-11 02:42] LABS: Absolute Lymphocytes (CBC) 0.6 K/uL (0.7-4.9); Basophils % 0.4 % (0-1.3); Hematocrit 26.5 % (39.6-49.0); Lymphocytes % 6.1 % (15.3-44.8); MPV 8.8 fL (7.6-11.3); RBC Red Blood Cell Count 2.75 M/uL (4.33-5.43)
[2020-11-11 02:59] LABS: Albumin 2.6 g/dL (3.4-5.0); Phosphorus 8.2 mg/dL (2.5-4.9)
[2020-11-11 04:22] VITALS: TEMP 97.9
[2020-11-11] MEDS: INSULIN -REGULAR HUMAN 50 UNIT/0.5 ML ML SQ SCH ×3 (07:30→16:30)
[2020-11-11] MEDS: SEVELAMER CARBONATE 800 MG TABLET PO SCH ×2 (08:00→12:00)
[2020-11-11] MEDS ORDERED: HYDRALAZINE HCL 25 MG TABLET ONE ×2 (08:01→17:34)
[2020-11-11] MEDS ORDERED: ASPIRIN EC 81 MG TAB PO ONE (08:01)
[2020-11-11] MEDS ORDERED: GABAPENTIN 300 MG CAP ONE (08:01)
[2020-11-11] MEDS ORDERED: IPRATROPIUM BROM 0.5MG/2.5ML ONE ×2 (08:12→16:00)
[2020-11-11] MEDS ORDERED: ALBUTEROL 2.5 MG/3 ML NEB SOL ONE ×2 (08:12→16:00)
[2020-11-11] MEDS: GABAPENTIN 300 MG CAP PO SCH ×2 (08:22→14:00)
[2020-11-11] MEDS ORDERED: ASPIRIN 81 MG CHEWABLE TABLET ONE (08:44)
[2020-11-11] MEDS: HYDRALAZINE HCL 25 MG TABLET PO SCH ×2 (09:00→14:00)
[2020-11-11] MEDS ORDERED: ASPIRIN 81 MG CHEWABLE TABLET PO SCH (09:00)
[2020-11-11] MEDS ORDERED: D50W 25 GM/50 ML SYRINGE IV ONE (09:03)
[2020-11-11] MEDS ORDERED: D50W 50 ML IV ONE (09:15)
[2020-11-11 09:48] VITALS: O2SAT 92
--- NOTE | 2020-11-11 11:31 | EKG ---
Test Date: 2020-11-10 Test Time: 09:19:16 Electronic Wirer: SAM MEASUREMENT RESULTS: Intervals: Rate: 50 AR: 158 QRSD: 90 QT: 506 QTc: 461 [place]: P: 61 AR: 158 QRS: 21 T: 170 INTERPRETIVE STATEMENTS: Sinus bradycardia ST & T wave abnormality, consider lateral ischemia Prolonged QT Abnormal ECG Compared to ECG 10/20/2020 20:25:23 No significant changes Electronically Signed On 11-11-20 11:27:08 CDT by Jose Francisco Mckeon
--- NOTE | 2020-11-11 15:46 | PN ---
Date of Progress Note: 11/11/2020 Subjective: The patient missed his dialysis for a week. The patient had dialysis yesterday because of over volume and hypertension. Today, feeling slightly better. Physical Examination: Vital Signs: Blood pressure of 156/52, pulse of 60, afebrile. Chest: Crackles bilateral base. Heart: S1, S2. Systolic murmur. Abdomen: Soft, nontender. Extremities: No edema. Neuro: Alert. No focality. Laboratory Data: H and H 11/29.5. Sodium 136, potassium 4, bicarb 27, BUN 55, creatinine 7, calcium of 8, phosphorus 8.2. Current Medications: The patient on include; 1.Aspirin. 2.Albuterol. 3.Hydralazine 50 t.i.d. 4.Gabapentin 300 t.i.d. 5.Tylenol. 6.Renvela. 7.Ipratropium. Assessment And Plan: 1.End-stage renal disease, over volume. We will do another session of dialysis today. Then, the pa amairani can be discharged after. 2.Hypertension, better controlled. Continue current treatment. We will utilize the blood pressure for more ultrafiltration. 3.Secondary hyperparathyroidism, stable. Continue Renvela. 4.Anemia of chronic kidney disease, stable. 5.Low back pain. We will follow up with the primary. 6.Over volume. We will challenge the patient again with another session today. COURTNEY Voice ID: [id number] Report ID: [id number]
[2020-11-11] MEDS ORDERED: hydroCHLOROthiazide 25 MG TAB ONE (17:30)
--- NOTE | 2020-11-11 17:41 | P.DS ---
Admission Date: 11/10/20 Discharge Date: 11/11/20 Reason for Admission: Volume overlaod Consultations: Linux Admin Engineer. Procedures: None. Brief History of Present Illness: Patient is a 65-year-old male with a past medical history significant for DM 2, ESRD on MWF, COPD, GERD, HLD and hypertension who presents with complaint of shortness of breath that has been ongoing for the past 2 days. Patient reported that his last dialysis was last Monday. Patient indicated that he has not been able to go to dialysis due to worsening chronic back pain and neuropathy. Patient reports associated signs and symptoms of cough. Patient denies any other signs and symptoms. Symptoms are aggravated by exertion and relieved by nothing. Patient decided to present to the hospital due to worsening symptoms. Hospital Course: Patient is a 65-year-old male with a past medical history significant for DM 2, ESRD on MWF, COPD, GERD, HLD and hypertension who presents with complaint of eloy rtness of breath that has been ongoing for the past 2 days. Patient missed a couple of episodes of hemodialysis because of chronic back pain and diabetic neuropathy. Nephrology was consulted. Patient had dialysis yesterday and today. Patient's pain was well managed with pain medication. Patient was placed on gabapentin for his diabetic neuropathy. Patient verbalizes improvement in his chronic back pain as well as his diabetic neuropathy. Patient instructed to follow-up with his PCP as well as lens shaper grinder. Patient was cleared for discharge by lens shaper grinder after patient has completed his dialysis today. Patient verbalized understanding of discharge instructions and patient was discharged in stable condition. <Hussain Acosta - Last Filed: 11/11/20 17:41> Admission Date: 11/10/20 Discharge Date: 11/11/20 - Problems (1) DM type 2 (diabetes mellitus, type 2) Status: Acute (2) Dependence on renal dialysis Status: Acute (3) End stage renal disease Status: Chronic (4) Hypertension Status: Chronic Qualifiers: Hypertension type: essential hypertension Qualified Code(s): I10 - Essential (primary) hypertension <justine reyes - Last Filed: 11/11/20 18:23> Disposition: ROUTINE DISCHARGE Discharge Condition: GOOD Vital Signs/Physical Exam: Temp Pulse Resp BP Pulse Ox 97.9 F 60 10 L 156/52 H 94 11/11/20 04:00 11/11/20 04:00 11/11/20 06:41 11/11/20 04:00 11/11/20 06:41 Laboratory Data at Discharge: WBC 9.80 K/uL (4.3-10.9) 11/11/20 02:14 Hgb 9.0 g/dL (13.6-17.9) L 11/11/20 02:14 Hct 26.5 % (39.6-49.0) L 11/11/20 02:14 Plt Count 111 K/uL (152-406) L 11/11/20 02:14 PT 14.7 SECONDS (9.5-12.5) H 11/10/20 08:10 INR 1.28 11/10/20 08:10 Sodium 136 mmol/L (136-145) 11/11/20 02:14 Potassium 4.0 mmol/L (3.5-5.1) 11/11/20 02:14 BUN 55 mg/dL (7-18) H D 11/11/20 02:14 Creatinine 7.03 mg/dL (0.55-1.3) H* D 11/11/20 02:14 Glucose 98 mg/dL (74-106) 11/11/20 02:14 Phosphorus 8.2 mg/dL (2.5-4.9) H 11/11/20 02:14 Magnesium 2.4 mg/dL (1.8-2.4) 11/10/20 18:10 Total Bilirubin 1.9 mg/dL (0.2-1.0) H 11/10/20 08:10 AST 12 U/L (15-37) L 11/10/20 08:10 ALT 11 U/L (12-78) L 11/10/20 08:10 Alkaline Phosphatase 287 U/L (45-117) H 11/10/20 08:10 <Hussain Acosta E - Last Filed: 11/11/20 17:41> Vital Signs/Physical Exam: Temp Pulse Resp BP Pulse Ox 97.9 F 74 24 H 165/57 H 97 11/11/20 04:00 11/11/20 17:56 11/11/20 17:56 11/11/20 17:56 11/11/20 17:56 Laboratory Data at Discharge: WBC 9.80 K/uL (4.3-10.9) 11/11/20 02:14 Hgb 9.0 g/dL (13.6-17.9) L 11/11/20 02:14 Hct 26.5 % (39.6-49.0) L 11/11/20 02:14 Plt Count 111 K/uL (152-406) L 11/11/20 02:14 PT 14.7 SECONDS (9.5-12.5) H 11/10/20 08:10 INR 1.28 11/10/20 08:10 Sodium 136 mmol/L (136-145) 11/11/20 02:14 Potassium 4.0 mmol/L (3.5-5.1) 11/11/20 02:14 BUN 55 mg/dL (7-18) H D 11/11/20 02:14 Creatinine 7.03 mg/dL (0.55-1.3) H* D 11/11/20 02:14 Glucose 98 mg/dL (74-106) 11/11/20 02:14 Phosphorus 8.2 mg/dL (2.5-4.9) H 11/11/20 02:14 Magnesium 2.4 mg/dL (1.8-2.4) 11/10/20 18:10 Total Bilirubin 1.9 mg/dL (0.2-1.0) H 11/10/20 08:10 AST 12 U/L (15-37) L 11/10/20 08:10 ALT 11 U/L (12-78) L 11/10/20 08:10 Alkaline Phosphatase 287 U/L (45-117) H 11/10/20 08:10 <justine reyes - Last Filed: 11/11/20 18:23> Diet: Renal Activity: Ad wu <Hussain Acosta - Last Filed: 11/11/20 17:41> <justine reyes - Last Filed: 11/11/20 18:23> Home Medications: Albuterol Inhaler [Ventolin Inhaler*] 2 puff IN QID PRN 09/01/20 Clonidine HCl [Catapres*] 0.2 mg PO BID 09/01/20 Clopidogrel Bisulfate [Plavix*] 75 mg PO DAILY 09/01/20 Gabapentin 300 mg PO BID 09/01/20 Hydralazine HCl 50 mg PO TID 09/01/20 Hydrocodone Bit/Acetaminophen [Seneca 10-325 Tablet] 1 tab PO QID PRN 09/01/20 Lactulose 10 gm PO DAILY 09/01/20 Ropinirole HCl 0.5 mg PO BEDTIME 09/01/20 Benzonatate [Tessalon Perle*] 100 mg PO TID PRN #30 cap 09/03/20 Epoetin [Retacrit] 4,000 unit IV EVERY HD vial 09/03/20 Heparin [Heparin 1,000 units/mL *] 2,000 unit IV EVERY HD PRN vial 09/03/20 Mometasone/Formoterol [Dulera 200 Mcg/5 Mcg Inhaler] 2 puff IH BID #1 inhaler 09/03/20 Nepro Shake [Nepro*] 237 ml PO BID #60 can 09/03/20 Sevelamer Carbonate [Renvela*] 2,400 mg PO TIDWM #270 tablet 09/03/20 levoFLOXacin [Levaquin*] 250 mg PO DAILY #8 tab 09/03/20 predniSONE [Prednisone*] 20 mg PO BID #6 tab 09/03/20 Physician Discharge Instructions: F/U with PCP in 1 week and Linux Admin Engineer in 2 days Followup: NONE,NONE [Primary Care Provider] -
[2020-11-11 17:58] VITALS: BP 165/57
== END 2020-11-11 17:58 | disposition home or self-care (01) | DRG 640 ==
LOC: ER 07:47 → ERHOLD 12:11
PROVIDERS: ADMIT Internal Medicine; ATTEND Internal Medicine
PROC: 5A1D70Z Performance of Urinary Filtration, Intermittent, Less than 6 Hours Per Day (ICD-10-PCS; principal; 2020-11-10)
DX: E87.70 Fluid overload, unspecified (principal); N18.6 End stage renal disease; I12.0 Hypertensive chronic kidney disease with stage 5 chronic kidney disease or end stage renal disease; N25.81 Secondary hyperparathyroidism of renal origin; E11.22 Type 2 diabetes mellitus with diabetic chronic kidney disease; I25.10 Atherosclerotic heart disease of native coronary artery without angina pectoris; M54.5 Low back pain; G25.81 Restless legs syndrome; K74.60 Unspecified cirrhosis of liver; E11.40 Type 2 diabetes mellitus with diabetic neuropathy, unspecified; E11.21 Type 2 diabetes mellitus with diabetic nephropathy; I73.9 Peripheral vascular disease, unspecified; B19.20 Unspecified viral hepatitis C without hepatic coma; I70.1 Atherosclerosis of renal artery; J44.9 Chronic obstructive pulmonary disease, unspecified; D63.1 Anemia in chronic kidney disease; K21.9 Gastro-esophageal reflux disease without esophagitis; E78.5 Hyperlipidemia, unspecified; Z99.2 Dependence on renal dialysis; Z20.822 Contact with and (suspected) exposure to COVID-19
CPT/HCPCS: 36415; 71045; 72131; 80048; 80069; 80076; 82947; 83735; 83880; 84100; 84484; 85025; 85610; 90935; 93005; 94640; 96374; 96375; 99283; J2270; J2405; U0003

== ENCOUNTER 2020-11-25 12:06 | Emergency (ER) | payer OTHER ==
[2020-11-25 12:49] LABS: Absolute Lymphocytes (CBC) 0.6 K/uL (0.7-4.9); Hematocrit 29.6 % (39.6-49.0); Lymphocytes % 7.6 % (15.3-44.8); MPV 7.9 fL (7.6-11.3); RBC Red Blood Cell Count 3.14 M/uL (4.33-5.43)
[2020-11-25 12:53] LABS: Potassium 3.3 mmol/L (3.5-5.1)
--- NOTE | 2020-11-25 12:58 | EDPHYS ---
Physician Documentation [facility] Name: Alexis Urbano Age: 65 yrs Sex: Male : 1955 Arrival Date: 11/25/2020 Time: 12:07 Bed 2 Private MD: ED Physician Sen Bear HPI: 11/25 15:00 This 65 yrs old Male presents to ER via EMS with complaints of General jr8 Weakness. 15:00 Is a 65-year-old male patient that was brought in for general weakness after he had jr8 dialysis. Patient stated that he normally feels very fatigued and sleepy postdialysis. No other complaints at this time. Dialysis team stated that he was very hard to arouse initially which is why he was transported for further evaluation.. Severity of symptoms: At their worst the symptoms were mild in the emergency department the symptoms have resolved. The patient has experienced similar episodes in the past, a few times. The patient has not recently seen a physician. Historical: - Allergies: 12:25 No Known Drug Allergies; bp - Home Meds: 12:34 Bumetanide Oral [Active]; clonidine HCl 0.2 mg Oral tab 2 times per day [Active]; oh bumetanide 2 mg Oral tab 1 tab once daily [Active]; pravastatin Oral [Active]; Clonidine Oral [Active]; Albuterol Inhl [Active]; carvedilol Oral [Active]; doxazosin Oral [Active]; gabapentin Oral [Active]; Hydralazine Oral [Active]; Plavix Oral [Active]; 12:25 Albuterol Inhl [Active]; aspirin 81 mg Oral chew 1 tab once daily [Active]; bumetanide bp 2 mg Oral tab 1 tab once daily [Active]; amlodipine oral [Active]; hydralazine 100 mg Oral tab 3 times per day [Active]; doxazosin 2 mg Oral tab 1 tab once daily [Active]; clonidine HCl 0.2 mg Oral tab 2 times per day [Active]; tizanidine 4 mg Oral tab twice a day [Active]; hydrocodone-acetaminophen 10-325 mg Oral tab every 6 hours [Active]; gabapentin 100 mg Oral cap 3 times per day [Active]; Plavix 75 mg Oral tab 1 tab once daily [Active]; pravastatin 40 mg Oral tab 1 tab once daily [Active]; - PMHx: 12:34 COPD; Diabetes - NIDDM; Dialysis; M/W/F; ESRD; GERD; High Cholesterol; Hypertension; oh 12:25 COPD; Hypertension; High Cholesterol; GERD; ESRD; Diabetes - NIDDM; Dialysis; M/W/F; bp - PSHx: 12:34 Fistula placed on left arm; oh 12:25 Fistula placed on left arm; bp - Immunization history:: Adult Immunizations unknown. - Social history:: Smoking status: Patient denies any tobacco usage or history of. ROS: 15:00 Eyes: Negative for injury, pain, redness, and discharge, ENT: Negative for injury, jr8 pain, and discharge, Neck: Negative for injury, pain, and swelling, Cardiovascular: Negative for chest pain, palpitations, and edema, Respiratory: Negative for shortness of breath, cough, wheezing, and pleuritic chest pain, Abdomen/GI: Negative for abdominal pain, nausea, vomiting, diarrhea, and constipation, Back: Negative for injury and pain, MS/Extremity: Negative for injury and deformity, Skin: Negative for injury, rash, and discoloration, Neuro: Negative for headache, weakness, numbness, tingling, and seizure. 15:00 Constitutional: Positive for fatigue, malaise. Exam: 15:00 Constitutional: This is a well developed, well nourished patient who is awake, alert, jr8 and in no acute distress. Cardiovascular: Regular rate and rhythm with a normal S1 and S2. No gallops, murmurs, or rubs. Normal PMI, no JVD. No pulse deficits. Respiratory: Lungs have equal breath sounds bilaterally, clear to auscultation and percussion. No rales, rhonchi or wheezes noted. No increased work of breathing, no retractions or nasal flaring. Abdomen/GI: Soft, non-tender, with normal bowel sounds. No distension or tympany. No guarding or rebound. No evidence of tenderness throughout. Back: No spinal tenderness. No costovertebral tenderness. Full range of motion. Skin: Warm, dry with normal turgor. Normal color with no rashes, no lesions, and no evidence of cellulitis. MS/ Extremity: Pulses equal, no cyanosis. Neurovascular intact. Full, normal range of motion. Neuro: Awake and alert, GCS 15, oriented to person, place, time, and situation. Cranial nerves II-XII grossly intact. Motor strength 5/5 in all extremities. Sensory grossly intact. Vital Signs: 12:17 BP 183 / 60; Pulse 57; Resp 19; Temp 97.5; Pulse Ox 96% ; bp 12:41 BP 185 / 53; Pulse 55; Resp 17; Temp 97.5; Pulse Ox 98% on R/A; oh 14:24 BP 175 / 66; Pulse 55; Resp 17; Pulse Ox 97% on R/A; oh MDM: 12:08 Patient medically screened. jr8 12:56 Data reviewed: vital signs, nurses notes, lab test result(s), EKG, and as a result, I jr8 will discharge patient. Data interpreted: Pulse oximetry: on room air is 98 %. Interpretation: normal. Counseling: I had a detailed discussion with the patient and/or guardian regarding: the historical points, exam findings, and any diagnostic results supporting the discharge/admit diagnosis, lab results, the need for outpatient follow up, a family practitioner, to return to the emergency department if symptoms worsen or persist or if there are any questions or concerns that arise at home. Response to treatment: the patient's symptoms have resolved after treatment. 11/25 12:13 Order name: CBC with Diff; Complete Time: 12:51 jr8 11/25 12:13 Order name: Basic Metabolic Panel; Complete Time: 12:56 jr8 11/25 12:13 Order name: EKG - Nurse/Tech; Complete Time: 12:30 jr8 11/25 12:13 Order name: EKG; Complete Time: 12:13 jr8 Administered Medications: No medications were administered Disposition Summary: 11/25/20 12:57 Discharge Ordered Location: Home jr8 Problem: new jr8 Symptoms: have improved jr8 Condition: Stable jr8 Diagnosis - Muscle weakness (generalized) jr8 - Other malaise and fatigue jr8 Followup: jr8 - With: Private Physician - When: 1 - 2 days - Reason: Recheck today's complaints, Continuance of care, Re-evaluation by your physician Discharge Instructions: - Discharge Summary Sheet jr8 - Weakness jr8 Forms: - Medication Reconciliation Form jr8 - Thank You Letter jr8 - Antibiotic Education jr8 - Prescription Opioid Use jr8 Addendum: 11/28/2020 17:40 Co-signature as Attending Physician, Sen Bear MD. m a2 Signatures: Dispatcher [employer] Dante Ghotra PA PA jr8 Raman Espinoza, ABBIE RN Sen Avelar MD MD ma2 Herminio Calles RN RN de
--- NOTE | 2020-11-25 12:58 | ER ---
Nurse's Notes [facility] Name: Alexis Urbano Age: 65 yrs Sex: Male : 1955 Arrival Date: 11/25/2020 Time: 12:07 Bed 2 Private MD: Diagnosis: Muscle weakness (generalized);Other malaise and fatigue Presentation: 11/25 12:17 Chief complaint: EMS states: BECAME SLEEPY AT DIALYSIS, BUT DIALYSIS COMPLETED. bp Coronavirus screen: At this time, the client does not indicate any symptoms associated with coronavirus-19. Ebola Screen: No symptoms or risks identified at this time. Initial Sepsis Screen: Does the patient meet any 2 criteria? No. Patient's initial sepsis screen is negative. Does the patient have a suspected source of infection? No. Patient's initial sepsis screen is negative. Risk Assessment: Do you want to hurt yourself or someone else?. Onset of symptoms was November 25, 2020 at 11:45. Care prior to arrival: Glucose check: 130. 12:17 Method Of Arrival: EMS: [facility] bp 12:17 Acuity: JOEL 3 bp Triage Assessment: 12:20 General: Appears in no apparent distress. comfortable, Behavior is cooperative, bp appropriate for age, drowsy. Pain: Complains of pain in back. EENT: No deficits noted. Neuro: No deficits noted. Cardiovascular: No deficits noted. Respiratory: No deficits noted. GI: No signs and/or symptoms were reported involving the gastrointestinal system. : No signs and/or symptoms were reported regarding the genitourinary system. Derm: No deficits noted. Musculoskeletal: No deficits noted. Historical: - Allergies: 12:25 No Known Drug Allergies; bp - Home Meds: 12:34 Bumetanide Oral [Active]; clonidine HCl 0.2 mg Oral tab 2 times per day [Active]; oh bumetanide 2 mg Oral tab 1 tab once daily [Active]; pravastatin Oral [Active]; Clonidine Oral [Active]; Albuterol Inhl [Active]; carvedilol Oral [Active]; doxazosin Oral [Active]; gabapentin Oral [Active]; Hydralazine Oral [Active]; Plavix Oral [Active]; 12:25 Albuterol Inhl [Active]; aspirin 81 mg Oral chew 1 tab once daily [Active]; bumetanide bp 2 mg Oral tab 1 tab once daily [Active]; amlodipine oral [Active]; hydralazine 100 mg Oral tab 3 times per day [Active]; doxazosin 2 mg Oral tab 1 tab once daily [Active]; clonidine HCl 0.2 mg Oral tab 2 times per day [Active]; tizanidine 4 mg Oral tab twice a day [Active]; hydrocodone-acetaminophen 10-325 mg Oral tab every 6 hours [Active]; gabapentin 100 mg Oral cap 3 times per day [Active]; Plavix 75 mg Oral tab 1 tab once daily [Active]; pravastatin 40 mg Oral tab 1 tab once daily [Active]; - PMHx: 12:34 COPD; Diabetes - NIDDM; Dialysis; M/W/F; ESRD; GERD; High Cholesterol; Hypertension; oh 12:25 COPD; Hypertension; High Cholesterol; GERD; ESRD; Diabetes - NIDDM; Dialysis; M/W/F; bp - PSHx: 12:34 Fistula placed on left arm; oh 12:25 Fistula placed on left arm; bp - Immunization history:: Adult Immunizations unknown. - Social history:: Smoking status: Patient denies any tobacco usage or history of. Screenin:41 Abuse screen: Denies threats or abuse. Nutritional screening: No deficits noted. oh Tuberculosis screening: No symptoms or risk factors identified. Fall Risk Gait- Impaired (20 pts.). Assessment: 12:31 General: Appears in no apparent distress. uncomfortable, Behavior is calm, cooperative, oh appropriate for age, Reports back pain, states he usually doesn't feel well after dialysis. pt reports feeling better now, just suffers from chronic back pain. Pain: Complains of pain in back. Neuro: No deficits noted. Neuro: Level of Consciousness is lethargic, per dialysis center pt was lethargic after treatment. at bedside pt is alert and oriented x3. Cardiovascular: No deficits noted. Respiratory: No deficits noted. GI: No deficits noted. : No deficits noted. EENT: No deficits noted. Derm: No deficits noted. Musculoskeletal: No deficits noted. Vital Signs: 12:17 BP 183 / 60; Pulse 57; Resp 19; Temp 97.5; Pulse Ox 96% ; bp 12:41 BP 185 / 53; Pulse 55; Resp 17; Temp 97.5; Pulse Ox 98% on R/A; oh 14:24 BP 175 / 66; Pulse 55; Resp 17; Pulse Ox 97% on R/A; oh ED Course: 12:07 Patient arrived in ED. am2 12:08 Dante Mena PA is PHCP. jr8 12:08 Sen Bear MD is Attending Physician. jr8 12:20 Triage completed. bp 12:20 Arm band placed on. bp 12:21 Herminio Calles, RN is Primary Nurse. oh 12:30 CBC with Diff Sent. oh 12:30 Basic Metabolic Panel Sent. oh 12:43 Fall risk band placed. Placed in gown. Bed in low position. Call light in reach. Side oh rails up X2. 14:24 No provider procedures requiring assistance completed. oh Administered Medications: No medications were administered Outcome: 12:57 Discharge ordered by . jr8 15:19 Discharged to home ambulatory. oh 15:19 Condition: good 15:19 Discharge instructions given to patient. 15:20 Patient left the ED. oh Signatures: Dante Mena PA PA jr8 Lissett Car am2 Raman Espinoza, RN RN bp Herminio Calles, RN RN oh
[2020-11-25 16:35] VITALS: TEMP 97.5
[2020-11-25 16:38] VITALS: BP 175/66; O2SAT 97
== END 2020-11-25 15:20 | disposition home or self-care (01) ==
LOC: ER 12:06
DX: M62.81 Muscle weakness (generalized) (principal); R53.81 Other malaise; R53.83 Other fatigue; J44.9 Chronic obstructive pulmonary disease, unspecified; E11.9 Type 2 diabetes mellitus without complications; N18.6 End stage renal disease; Z99.2 Dependence on renal dialysis; E78.00 Pure hypercholesterolemia, unspecified; I10 Essential (primary) hypertension
CPT/HCPCS: 36415; 80048; 85025; 93005; 99283

== ENCOUNTER 2021-01-17 22:01 | Emergency (ER) | payer OTHER ==
--- OUTSIDE RECORDS SUMMARY | 2021-01-17 22:06 | XMS REPORT | Continuity of Care Document ---
:1955 Author Organization [facility] t Address [address] [place] [address] Care Team Providers Name Role Phone [facility] Primary Care Physician Briseyda-Joeo_A_AH Attending Clinician Unavailable Fran CABALLERO Attending Clinician Brian Vega MD Attending Clinician Shayna CABALLERO Attending Clinician Kayode CABALLERO, Chiara Attending Clinician Chetan Donohue MD Attending Clinician Trae BERNAL Attending Clinician Radiology Attending Clinician Unavailable Pob, Lab Main Attending Clinician Unavailable SALENA RUSSELL Attending Clinician Unavailable SWETHA PISANO Attending Clinician Unavailable LEANA KHALIL Attending Clinician Unavailable INGRIS DANIELSON Attending Clinician Unavailable ESMER KERN Attending Clinician Unavailable Briseyda-Mbayo_A_AH Admitting Clinician Unavailable KAYODE Admitting Clinician Unavailable THEODORE WEIR Admitting Clinician Unavailable Payers Payer Name Policy Type Policy Number Effective Date Expiration Date S alton [facility] [place] - [id number] 2019 [employer] 00:00:00 (MEDICARE REPLACEMENT/ADVANT AGE - HMO) Problems Condition Condition Condition Status Onset Resolution Last Treating Co mments Source Name Details Category Date Date Treatment Clinician Date Penis pain Penis pain Disease Active 2021-0 U nivers 9-25 ity of 00:00: [place] 00 Medical Branch Tobacco Tobacco Disease Active Univers use use 9-25 ity of 00:00: [place] [facility] Murmur Murmur Disease Active Univers 9-25 ity of 00:00: [place] [facility] PAD PAD Disease Active Overview: Univer s (periphera (periphera 9-25 Formattin ity of l artery l artery 00:00: g of this Sebastián as disease) disease) 00 note Medica l might be Branch different from the original. Added automatic ally from request for surgery [id number] PVD PVD Disease Active 2019-03 Methodi (periphera [...] Back Problem Active Dorsey ge pain Pain 18 Family 00:00: Practic 00 e Type 2 Type 2 Problem Active [facility] diabetes Diabetes 18 Family mellitus Mellitus 00:00: Practi c with with e multiple Multiple complicati Complicati ons ons Chronic Chronic Problem Active [facility] hepatitis Hepatitis 03-12 Fami ly C [...] 00 Ce nter complicati complicati on on ESRD (end ESRD (end Disease Active Last [facility] stage stage 5-19 [facility] - renal renal 00:00: t & Plan: [...] Active Last [facility] hepatitis hepatitis - Assessguillaume hernandez - C virus C virus [...] Active Last [facility] t status status 07-22 Assessguillaume Luciamaurizio - testing testing 00:00: t & Plan: [...] hepatitis A- will test for immunity today. Allergies, Adverse Reactions, Alerts Allergy Allergy Status Severity Reaction(s) Onset Inactive Treating Comm ents Source Name Type Date Date Clinician Crab Drug Active Itching Itching [facility] All[facility] 1- [facility] mouth, [facility] 00[facility]: [facility] Medical 00 okay with Center shrimp/cr awfish CRAB Allergy Active Itching [facility]- [facility] - [facility] Medical 00 Center Family History Family Member Diagnosis Comments Start Date Stop Date Source Natural father [facility] Natural mother Dementia [facility] Social History Social Habit Start Date Stop Date Quantity Comments Source History of tobacco Cigarette Smoker [facility] Exposure to Not sure University of SARS-CoV-2 (event) [facility] Tobacco use and 2020-11-28 2020-11-28 Never used Universit y of exposure 00:00:00 00:00:00 [facility] Cigarettes smoked 2019-12-10 2019-12-[address] current (pack per 00:00:00 00:00:00 [facility] l day) - Reported Alcohol intake 2019-12-10 2019-12-10 Ex-drinker [facility] 00:00:00 00:00:00 (finding) Hospital Alcohol Comment 2015-07-23 2015-07-[address] [facility] - 00:[facility]00 00:00:00 2005; [facility] er drinker Tobacco Comment 2015-03-31 2015-03-31 Quit 2006 [facility] - 00[facility]:00 00:00:00 [facility] Sex Ass[birth year] Universit y of 00:00:00 00:00:00 [facility] Smoking Status Start Date Stop Date Source Light Tobacco Smoker [facility] Practice Current every day 2020-11-28 00:00:00 [facility] smoker [facility] Former smoker 2018-06-05 00:00:00 2018-06-05 00:00:00 [facility] Medications Ordered Filled Start Stop Current Ordering Indication Dosage Frequency Signature Comments Components Source Medication Medication Date Date Medication? Clinician (SIG) Name Name clopidogreL 2020-03 Yes 75mg Take 75 mg Univers 75 mg 0-06 by mouth ity of tablet 18:59: daily. [place] [address] Medical Branch gabapentin 2020-03 Yes 100mg Take 100 Un mariella 100 mg 0-06 mg by ity of capsule 18:59: mouth 3 [place] 29 (three) Medical times Branch daily. HYDROcodone 2020-03 Yes 1{tbl} Take 1 Un mariella -acetaminop 0-06 tablet by ity of hen 10-325 18:59: mouth [place] mg tablet 29 every 6 Medical (six) Branch hours as needed for Pain (scale 4-6). zolpidem 10 2020-03 Yes 10mg Take 10 mg Univers mg tablet 0-06 by mouth ity of 18:59: at bedtime [place] [address] as needed Medical for Branch Insomnia. tiZANidine 2020-03 Yes 4mg Take 4 mg Un mariella 4 mg tablet 0-06 by mouth ity of 18:59: every 4 [place] [address] (four) Medical hours as Branch needed for Muscle Spasms. cloNIDine 2020-03 Yes [id number] .3mg Take 1 U nivers 0.3 mg 0-06 tablet by ity of tablet 00:00: mouth 2 [place] 00 (two) Medical times Branch daily. bacitracin 2020-03 Yes [id number] Apply to Univers 500 0-06 affected ity of unit/gram 00:00: area(s) 2 Sebastián as ointment 00 (two) Medical times Branch daily. lactulose 2020-03 Yes [id number] 15mL Take 15 mL Univers 10 gram/15 0-06 by mouth 3 ity of mL solution 00:00: (three) Sebasti[place] as 00 times Medical daily. Branch lisinopriL 2020-03 Yes [id number] 10mg Take 1 Univers 10 mg 0-06 tablet by ity of tablet 00:00: mouth [place] 00 daily. Medical Branch sevelamer 2020-03 Yes [id number] 800mg Take 1 Univers 800 mg 0-06 tablet by ity of tablet 00:00: mouth 3 00 (three) Medical times Branch daily with meals. aspirin 81 2019-03 2020- No 81mg QD Chew 1 Meth michelle [...] by mouth l daily for 30 days. gabapentin 2019-03 Yes 100mg Q.[id number] Take 100 Methodi (NEURONTIN) 0-06 [id number] mg by s t 100 mg 21:07: [...] needed for l sleep. HYDROcodone 2019-03 Yes [id number] 1{tbl} Q6H Take 1 M ethodi -acetaminop [...] 01 (two) l tablet times a day. tamsulosin 2019-03 2020- No .4mg QD Take 0.4 Me thodi (FLOMAX) 0-01 10-[address] 0.4 mg 17:44: 00:00 mouth Hospita capsule 24 :00 daily. l finasteride 2019-03 No 5mg QD Take 5 mg Methodi (PROSCAR) 5 12-[address] mg tablet 17:44: 00:00 daily. Hospi ta 21 :00 l tiZANidine 2019-03 No 2mg Q8H Take 2 mg M ethodi (ZANAFLEX) 12-[address] 2 MG tablet 17:43: 00:00 every 8 Ho spita 54 :00 (eight) l hours as needed for muscle spasms. aspirin 81 Yes 81mg QD Take [address] MG EC 4-02 by mouth [facility] - tablet 10:20: daily. [address] aspirin 81 Yes 81mg QD Take [address] MG EC 4-02 by mouth [facility] - tablet 10:20: daily. [address] aspirin 81 Yes 81mg QD Take [address] MG EC 4-02 by mouth [facility] - tablet 10:20: daily. [address] amLODIPine Yes 10mg Take [address] (NORVASC) 4-02 by mouth. [facility] - 10 MG 10:19: Medical tablet [address] [place] [address] amLODIPine Yes 10mg Take [address] (NORVASC) 4-02 by mouth. [facility] - 10 MG 10:19: Medical tablet [address] [place] amLODIPine Yes 10mg Take [address] (NORVASC) 4-02 by mouth. [facility] - 10 MG 10:19: Medical tablet [address] [place] cloNIDine Yes .2mg Q.5D Take 0.[address] HCl 4-02 mg by [facility] - (CATAPRES) 10:18: mouth 2 Medi nataly 0.2 MG 27 (two) Center tablet times daily . HYDROcodone Yes 1{tbl} Take [address] -acetaminop 4-02 tablet by Susie martínez (NORCO 10:18: mouth Medica l 10-325) 27 [...] 20 MG 00:00: Medical tablet 00 Center atorvastati 0 Yes 20mg Take [address] n (LIPITOR) 4-26 by mouth. Susie es - 20 MG 00:00: Medical tablet 00 [place] atorvastati 0 Yes 20mg Take [address] n (LIPITOR) 4-26 by mouth. Susie es - 20 MG 00:00: Medical tablet 00 Center hydrALAZINE 2017-0 Yes 50mg Q.[id number] Take [address] (APRESOLINE 2-06 [id number] tablets [facility] - ) 25 MG 00:00: 3D (50 mg Medical tablet 00 total) by Center mouth 3 (three) times daily. pantoprazol 2017-0 Yes 40mg QD Take [address] e 2-06 tablet (40 [facility] - (PROTONIX) 00:00: mg total) Me dical 40 MG 00 by mouth Center tablet daily. hydrALAZINE 2017-0 Yes 50mg Q.[id number] Take [address] (APRESOLINE 2-06 [id number] tablets [facility] - ) 25 MG 00:00: 3D (50 mg Medical tablet 00 total) by Center mouth 3 (three) times daily. pantoprazol 2017-0 Yes 40mg QD Take [address] e 2-06 tablet (40 [facility] - (PROTONIX) 00:00: mg total) Me dical 40 MG 00 by mouth Center tablet daily. hydrALAZINE 2017-0 Yes 50mg Q.[id number] Take [address] (APRESOLINE 2-06 [id number] tablets [facility] - ) 25 MG 00:00: 3D (50 mg Medical tablet 00 total) by Center mouth 3 (three) times daily. pantoprazol 2017-0 Yes 40mg QD Take [address] e 2-06 tablet (40 [facility] - (PROTONIX) 00:00: mg total) Me dical 40 MG 00 by mouth Center tablet daily. sildenafil sildenafil No 1 Q1D sildenafil [facility] 100 mg 100 mg 100 mg Family tablet Take tablet Take tablet Practic 1 tablet 1 tablet Take 1 e every day every day tablet by oral by oral every day route. route. by oral route. tizanidine tizanidine No 1 Q6H tizanidine [facility] 4 mg tablet 4 mg tablet [...] by oral bedtime. bedtime. route at bedtime. Aspir-81 mg Aspir-81 mg No 1 Q1D [...] route. carvedilol carvedilol No 1 BID carvedilol [facility] 6.25 mg 6.25 mg 6.25 mg Family tablet Take tablet Take tablet Practic 1 tablet 1 tablet Take 1 e twice a day twice a day tablet by oral by oral twice a route. route. day by oral route. clonidine clonidine No 1 BID clonidine [facility] HCl 0.2 mg HCl 0.2 mg HCl 0.2 mg Family tablet Take tablet Take tablet Practic 1 tablet 1 tablet Take 1 e twice a day twice a day tablet by oral by oral twice a route. route. day by oral route. gabapentin gabapentin No 1capsul TID gabapentin [facility] 100 mg 100 mg e(s) 100 mg Family capsule capsule capsule Practi c Take 1 Take 1 Take 1 e capsule 3 capsule 3 capsule 3 times a day times a day times a by oral by oral day by route. route. oral route. lactulose lactulose No 15mL Q1D lactulose [facility] 10 gram/15 10 gram/15 10 gram/15 Family mL (15 mL) mL (15 mL) mL (15 mL) Practic oral oral oral e solution solution solution Take 15 mL Take 15 mL Take 15 mL every day every day every day by oral by oral by oral route as route as route as directed. directed. directed. [place] 10 [place] 10 No 1 Q4H [place] 10 Milo tiffanie mg-325 mg mg-325 mg mg-325 mg Family tablet Take tablet Take tablet Practic 1 tablet 1 tablet Take 1 e every 4 every 4 tablet hours by hours by every 4 oral route oral route hours by as needed. as needed. oral route as needed. pravastatin pravastatin No 1 Q1D pravastati [facility] 40 mg 40 mg n 40 mg Family tablet Take tablet Take tablet Practic 1 tablet 1 tablet Take 1 e every day every day tablet by oral by oral every day route. route. by oral route. Renvela 800 Renvela 800 No 1 TID Milana Cano mg tablet mg tablet 800 mg Fam traci Take 1 Take 1 tablet Practic tablet 3 tablet 3 Take 1 e times a day times a day tablet 3 by oral by oral times a route. route. day by oral route. Sensipar 30 Sensipar 30 No 1 Q1D Sensshivr Rachael mg tablet mg tablet 30 mg Fami ly Take 1 Take 1 tablet Practic tablet tablet Take 1 e every day every day tablet by oral by oral every day route. route. by oral route. Immunizations Ordered Filled Immunization Date Status Comments [facility] e Immunization Name Name PPD () 2020-04-01 Completed University of 00:00:00 [facility] Influenza Virus 2019-12-20 Completed Universit y of Vaccine 00:00:00 [facility] PPD (TB) 2019-04-03 Completed University of 00:00:00 [facility] pneumococcal pneumococcal 2019-01-04 Completed [facility] alexia conjugate PCV 13 conjugate PCV 13 00:00:00 Pr actice influenza, influenza, 2019-01-04 Completed [facility] injectable, injectable, 00:00:00 Practice quadrivalent quadrivalent Influenza Virus 2018-12-26 Completed Universit y of Vaccine 00:00:00 [facility] PPD (TB) 2018-07-20 Completed University of 00:00:00 [facility] PPD (TB) 2018-07-04 Completed University of 00:00:00 [facility] HEP B, Adult Dosage 2018-04-18 Completed Unive rsity of 00:00:00 [facility] HEP B, Adult Dosage 2017-12-20 Completed Unive rsity of 00:00:00 [facility] HEP B, Adult Dosage 2017-11-20 Completed Unive rsity of 00:00:00 [facility] Influenza Virus 2017-11-15 Completed Universit y of Vaccine 00:00:00 [facility] HEP B, Adult Dosage 2017-10-20 Completed Unive rsity of 00:00:00 [facility] PPD (TB) 2016-08-17 Completed University of 00:00:00 [facility] PPD Test 2016-04-[address] [facility] - 00:[facility]:00 [facility] PPD Test 2016-04-[address] [facility] - 00:00:00 [facility] PPD Test 2016-04-[address] [facility] - 00:00:00 [facility] PPD (TB) 2016-04-03 Completed University 00:00:00 [facility] Influenza Virus 2015-12-02 Completed Universit y of Vaccine 00:00:00 [facility] Vital Signs Vital Name Observation Time Observation Value Comments Source Systolic blood 2021-01-12 199 mm[Hg] University of pressure 14:23:00 [facility] Diastolic blood 2021-01-12 74 mm[Hg] University o f pressure 14:23:00 [facility] Heart rate 2021-01-12 60 /min [facility] 14:23:00 [facility] Body temperature 2021-01-12 36.61 Idalia [facility] 14:23:00 [facility] Body height 2021-01-12 167.6 cm [facility] 14:23:00 [facility] Body weight 2021-01-12 64.003 kg [facility] 14:23:00 [facility] BMI 2021-01-12 22.77 kg/m2 University 14:23:00 [facility] Height 2019-09-03 66 [in_i] [facility] 00:[facility]00 [facility] Height 2019-07-23 66 [in_i] [facility] 00:[facility]:00 Practice BMI (Body Mass 2019-07-23 25.8 kg/m2 [facility] Index) 00:00:00 Practice Body Weight 2019-07-23 160 [lb_av] [facility] 00:00:00 Practice Systolic blood 2019-12-10 206 mm[Hg] [facility] HEMMER Jisha made [facility] pressure 19:40:00 [facility] Diastolic blood 2019-12-10 88 mm[Hg] [employer]EM[facility] Jisha made [facility] pressure 19:40:00 [facility] Heart rate 2019-12-10 69 /min [facility] 19:40:00 Hospital Body temperature 2019-12-10 37.11 Idalia [facility] 17:15:24 Hospital Respiratory rate 2019-12-10 16 /min [facility] 17:15:24 Hospital Oxygen saturation 2019-12-10 96 /min [facility] in Arterial blood 17:15:24 Hospital by Pulse oximetry Body weight 2019-12-10 72.848 kg [facility] 11:00:00 Hospital BMI 2019-12-10 25.92 kg/m2 [facility] 11:00:00 Hospital Body height 2019-12-09 167.6 cm [facility] 21:00:00 Hospital Procedures Procedure Date / Time Performing Clinician Source Performed ECG 12-LEAD 2019-12-10 19:01:00 [facility] TROPONIN 2019-12-10 17:50:00 [facility] BASIC METABOLIC PANEL 2019-12-10 10:33:00 [facility] ESTIMATED GFR 2019-12-10 10:33:00 [facility] HEMODIALYSIS 2019-12-10 01:17:14 Skyler Rand Ho spital OR [place] < 1 HOUR 2019-12-10 00:26:47 Martita Corral spital HEPATITIS B SURFACE 2019-12-10 00:13:00 [facility] ANTIGEN HEPATITIS B SURFACE 2019-12-10 00:13:00 [facility] ANTIBODY HEMODIALYSIS 2019-12-09 21:51:41 Skyler Rand Ho spital HEMODIALYSIS 2019-12-09 21:09:37 Skyler Rand Ho spital POC GLUCOSE 2019-12-09 21:02:00 Martita Corral spital [place] AN ELECTIVE 2019-12-09 18:56:58 Antonieta Lawrence [facility] SUPRAGLOTTIC AIRWAY AORTOGRAPHY, POSSIBLE 2019-12-09 18:47:00 Martita Corral [facility] ANGIOPLASTY POC GLUCOSE 2019-12-09 17:42:00 Martita Corral spital POC PANEL 2019-12-09 15:37:00 Martita Corral spital COMPREHENSIVE METABOLIC 2019-12-09 15:32:00 Shayna [facility] PANEL TYPE AND SCREEN 2019-12-09 15:32:00 Binu Wilson spital Behzad Christine ESTIMATED GFR 2019-12-09 15:32:00 Martita Corral spital XR CHEST 2 VW 2019-12-05 18:38:59 Shayna Nmmachelle jones ECG PRE/POST OP 2019-12-05 18:07:15 Martita Corraltal PROTHROMBIN TIME WITH INR 2019-12-05 17:45:00 [facility] PARTIAL THROMBOPLASTIN 2019-12-05 17:45:00 [facility] TIME (PTT) COVID-19 QUALITATIVE 2019-12-05 17:37:00 [facility] RT-PCR HC COMPLETE BLD COUNT 2019-12-05 17:36:00 [facility] [place] W/AUTO DIFF HEMOGLOBIN A1C 2019-12-05 17:36:00 Binu Wilsontal Behzad Christine Plan of Care Planned Activity Planned Date [...] s - Test 00:00:00 (procedure) [code = [facility] 73803575] Future Scheduled 2019-03-[address] [facility] - Test 00:00:00 (procedure) [code = [facility] 83484686] Future Scheduled 2019-03-[address] [facility] - Test 00:00:00 (procedure) [code = [facility] Center 99002883] Future Scheduled 2016-09-[address] [facility] - Test 00:00:00 measurement Medical Center (procedure) [code = 05160589] Future Scheduled 2016-09-[address] [facility] - Test 00:00:00 measurement Medical Center (procedure) [code = 22861729] Future Scheduled 2016-09-[address] [facility] - Test 00:00:00 measurement Medical Center (procedure) [code = 22390016] Future Scheduled 2016-06-[address] [facility] - Test 00:00:00 malignant neoplasm of Medica l Center colon (procedure) [code = 077280783] Future Scheduled 2016-06-[address] [facility] - Test 00:00:00 malignant neoplasm of Medica l Center colon (procedure) [code = 515981869] Future Scheduled 2016-06-[address] [facility] - Test 00:00:00 malignant neoplasm of Medica l Center colon (procedure) [code = 184644071] Future Scheduled 2015-03-[address] [...] 00:00:00 examination Medical Center (regime/therapy) [code = 146146101] Future Scheduled 1967-08-29 Urine screening [facility] - Test 00:00:00 protein (procedure) Medical Center [code = 291516111] Future Scheduled 1967-08-[address] DIABETIC EYE EXAM [facility] - Test 00:00:00 [code = DIABETIC EYE Medical Center EXAM] Future Scheduled 1967-08-[address] [facility] - Test 00:00:00 examination Medical Center (regime/therapy) [code = 750812842] Future Scheduled 1967-08-29 Urine screening [facility] - Test 00:00:00 protein (procedure) Medical Center [code = 117208632] Future Scheduled 1967-08-29 DIABETIC EYE EXAM [facility] - Test 00:00:00 [code = DIABETIC EYE Medical Center EXAM] Future Scheduled 1967-08-[address] [facility] - Test 00:00:00 examination Medical Center (regime/therapy) [code = 425775446] Future Scheduled 1967-08-29 Urine screening [facility] - Test 00:00:00 protein (procedure) Medical Center [code = 614522893] Future Scheduled 1961-08-[address] [facility] [...] PPSV23)] Future Scheduled DIABETES: RETINAL EYE [facility] EXAM [code = DIABETES: RETINAL EYE EXAM] Future Scheduled DIABETIC FOOT EXAM [facility] Test [code = DIABETIC FOOT EXAM] Future Scheduled COVID-19 VACCINE (1) [facility] Test [code = COVID-19 VACCINE (1)] Future Scheduled [facility]ING [facility] Test [code = COLONOSCOPY SCREENING] Future Scheduled SHINGLES VACCINES (#1) [facility] Test [code = SHINGLES VACCINES (#1)] Future Scheduled INFLUENZA VACCINE [facility] Test [code = INFLUENZA VACCINE] Encounters Start End Encounter Admission Attending Care Care Encounter Source Date/Time Date/Time Type Type Clinicians Facility Department ID 2021-01-17 [facility] [id number] [facility] 20:29:37 _A_ [id number] Family Practic e 2021-01-17 [facility] [id number] [facility] 17:31:00 _A_AH 15009 Family Practic e 2021-01-16 Outpatient Briseyda-Mbayo [facility] [id number] [facility] 08:27:39 _A_AH 66982 Family Practic e 2021-01-15 Outpatient Briseyda-Mbayo VFP VFP [id number] [facility] 21:20:11 _A_AH 96523 Family Practic e 2021-01-15 Outpatient Briseyda-Mbayo VFP VFP [id number] Village 20:11:24 _A_AH 58606 Family Practic e 2021-01-12 2021-01-12 Office [facility] [id number] [facility] 08:07:31 08:42:43 Visit [facility] 350.1.13.10 i ty of CLINICS 4.2.7.2.686 Deon almonte [id number] [facility] 204 Branch 2020-05-21 2020-05-21 [facility] 1.2.840.1 [id number] 2 [id number] Methodi 00:00:00 00:00:[address] [facility] 3.430.2.7 Hospi ta .3.774298 l .8 2019-12-09 2019-12-10 Hospital [facility] 1.2.840.1 [id number] Methodi 09:56:00 16:06:00 Encounter Kayode Jwlinda Hardenhenri 87973.1.[address] 3.430.2.7 Hospit a .3.192011 l .8 2019-12-09 2019-12-09 Anesthesia Sameer Donohue 1.2.840.1 [id number] Methodi 13:47:00 16:02:00 Event Elvie Larkin 78631.1.[address] 3.430.2.7 Hospit a .3.384141 l .8 2019-12-09 2019-12-[address] [facility] 1.2.840.1 [id number] Methodi 13:10:00 14:55:00 [facility] [address]91.1.[address] 3.430.2.7 Hospit a .3.367606 l .8 2019-12-05 2019-12-05 Hospital Shayna, 1.2.840.1 [id number] Methodi 13:17:37 23:59:00 Encounter Naztam 48546.1.[address] 3.430.2.7 Hospit a .3.212439 l .8 2019-12-05 2019-12-05 Pre-Admiss Shayna, 1.2.840.1 [id number] 2 [id number] Methodi 12:02:21 13:02:21 ion Naztam 02346.1.[address] Testing 3.430.2.7 Hospit a .3.526462 l .8 2019-12-05 2019-12-05 Travel 1.2.840.1 [id number] [id number] Methodi 00:00:00 00:00:[address] 3.430.2.7 0.2.7.3.698 Ho spita .3.187642 084.8 l .8 2019-11-29 2019-11-29 Travel 1.2.840.1 1.2.479.729 [id number] Methodi 00:00:00 00:00:[address] 3.430.2.7 0.2.7.3.698 Ho spita .3.899167 084.8 l .8 2019-10-10 2019-10-10 Hospital Radiology [facility] 1.2.840.114 [id number] 12:34:44 23:59:00 Encounter [place] 350.1.13.10 [place] 4.2.7.2.686 [place] [id number] 2019-10-10 2019-10-10 Garage Manager Rodney Steen [place] 1.2.840.114 [id number] 12:38:05 12:53:05 Visit Lab Main [place] 350.1.13.10 [place] 4.2.7.2.686 Professio [id number] [place] [address] Building 2019-09-03 2019-09-03 Veronica [facility] [place] - [id number] V illage 00:00:00 00:00:[address] [facility] traci elkins, CHAINSTITCH HEMMER: Medical - Practi c [address] [email or web address]_ e [facility], [address] [place] [address], [place] [address] , Ph. 2019-07-23 2019-07-23 Veronica [facility] [place] - [id number] V illage 00:00:00 00:00:[address] [facility] traci elkins, CHAINSTITCH HEMMER: Medical - Practi c [address] [email or web address]@H_ e [facility], [address] [place] [address], [place] [address] , Ph. Results Test Description Test Time Test Comments Results Result Comments Source ECG 12 lead 2019-12-10 21:17:46 Test Item Value Reference Range Interpretation Comme nts Ventricular rate (test code = 253) Atrial rate (test code = 255) UT interval (test code = 266) QRSD interval [...] T wave abnormality, worse in [facility]ateral leads[facility] [id number] 00:38:18EXAMINATION: OR FL < 1 HOUR CLINICAL HISTORY: None provided. IMPRESSION: 1. Fluoroscopy was provided in the operating. I was not present during the procedure.2. Please refer to the operative reportfor findings.3. Total Dose: 114 fluoroscopic images. 27.1 minutes of fluoroscopy time.[facility],Radiology Results Incoming - 12/09/2019 7:41 PM CDT EXAMINATION: OR FL < 1 HOURCLINICAL HISTORY: None provided.IMPRESSION:1. Fluoroscopywas provided in the operating. I was not present during the procedure.2. Please refer to the operative report for findings.3. Total Dose: 114 fluoroscopic images. 27.[address] [facility] [id number] 18:56:58WeAntonieta kingsley CRNA 12/09/2019 1:57 PMAirway Date/Time: 12/09/2019 1:57 PMPerformed by: Antonieta Lawrence CRNAAuthorized by: Sameer Donohue MD Location: ORUrgency: ElectiveDifficult Airway: No Anesthesiologist: Sameer Donohue, MDResident/OPERATIONS PROGRAM MANAGER/AA: Antonieta Lawrence CRNAPerformed by: resident/OPERATIONS PROGRAM MANAGER/AAPreoxygenated with 100% O2: Yes C-spine Precautions Maintained Throughout: Yes Mask Ventilation: Not attemptedFinal Airway Type: Supraglottic airwayFinal LMA: I-GelLMA Size: 4Number of Attempts at Approach: 1[facility] HospitalEC[facility] Pre/Post [id number] 05:44:14 Test Item Value Reference Range Interpretation Comments Ventricular rate (test code = 253) Atrial rate (test code = 255) UT interval (test code = 266) QRSD interval [...] CABALLERO, Htut ([id number]) on 12/06/2019 12:44:11 AM [facility] 2 [id number] 21:56:18EXAMINATION: XR CHEST 2 VW CLINICAL HISTORY: Z01.818 Encounter for other preprocedural examination, PRE OP COMPARISON: None. IMPRESSION: Heart and mediastinum: Cardiomediastinal silhouette is prominent. Atherosclerotic calcifications of the aortic arch. Lungs and pleura: There is no focal airspace disease, pleural effusion or pneumothorax. Bones: No acute abnormality. Spinal cord stimulator deviceseen overlying the thoracic spine. [facility]-[id number] Dictated and approved by regional vice president surgical sales/fellow: Joseph Malik M.D. I, Daniel Abbott, personally reviewed the images and resident's/fellow's findings and agree with the final report.[facility], Radiology Results Incoming - 12/05/2019 4:59 PM CDT EXAMINATION: XR CHEST 2 VWCLINICAL HISTORY: Z01.818 Encounter for other preprocedural examination, PRE OPCOMPARISON: None.IMPRESSION:Heart and mediastinum: Cardiomediastinal silhouette is prominent. Atherosclerotic calcifications of the aortic arch.Lungs and pleura: There is no focal airspace disease, pleural effusion or pneumothorax.Bones: No acute abnormality.Spinal cord stimulator device seen overlying the thoracic spine.[facility]-[id number] and approved by regional vice president surgical sales/fellow: Nate Schmitz, Daniel Abbott, personallyreviewed the images and resident's/fellow's findings and agree with the final report. [facility]OV2[facility] ([facility])2019-10-04 22:28:00 Test Item Value Reference Range Interpretation Comments SARS-COV2/RT-PCR (test Negative Not Detected, Negative, code = 2019700) See external report for linked test SARS-COV-2 PERFORMING LAB [facility] (test code = 8429250) Negative result for this test determines that [...] 564(g) of the Act.Fact Sheet for Healthcare Providers:https://www.PetroFeed/sites/default/files/product/documents/Fact_Shee y_UJ_Tdhjpgtug_Egex_ATAE-RyK-1.pdfFact Sheet for Healthcare Patients:https://www.PetroFeed/sites/default/files/product/ documents/Hqvz_Jkobr_Nwxwuiyx_Ganz_GCPJ-OhX-5.pdfPerforming Laboratory:[facility] [place] [address].[place], [place] [address]OAFV-AWQ6/RT-PCR ([facility])2019-10-01 04:23:00 Test Item Value Reference Range Interpretation Comments SARS-COV2/RT-PCR (test code Negative Not Detected, Negative, = 6450203) See external report for linked test SARS-COV-[address] [facility] (test code = 4063161) Negative results do not preclude SARS-CoV-2 infection [...] of the Act.Fact Sheet for Healthcare Pro viders:https://www.iCrimefighter/Documents/Xpert%20Xpress%20SARS%20CoV-2/Fact%20Sh eets/302-3802%37AOXG-LVB-7%20HEALTHCARE%20PROVIDERS%20FACT%20SHEET.pdfFact Sheet for Healthcare Patients:https://www.Operax/Documents/Xpert%20Xpress%20SARS%20CoV-2/Fact%20Sheets/302-3801%20SARS-COV -2%20PATIENT%20FACT%20SHEET.pdfPerforming Laboratory:[address]ela Ch[place]French [place], [place] [address]YCGDMBB IMAGING, MULTI, PHARM, SPECT 2019-02-21 15:54:00Referring: Dr. Schultz EtheridgeFINAL REPORT PROCEDURE: MYOCARDIAL PERFUSION SPECT IMAGING (Rest/Stress)CPT CODE: 03525 INDICATION: Renal transplant evaluation, hypertension, shortness of [...] MDReport Verified Date/Time: 02/21/2019 15:54:30 Reading Location: [address] Reading Room [id number] 17:11:00 Test Item Value Reference Range Interpretation Comments PROSTATE SPECIFIC ANTIGEN (BEAKER) 0.8 ng/mL 0.0-4.0 (test code = 844) HEPATITIS B SURFACE [id number] 17:11:00 Test Item Value Reference Range Interpretation Comments HEPATITIS B SURFACE ANTIBODY 612.9 mIU/mL <8.0 H (BEAKER) (test code = 647) PROTHROMBIN [id number] 14:59:00 Test Item Value Reference Range Interpretation Comments PROTIME (BEAKER) (test code = 15.6 seconds 11.7-14.7 H 759) INR (BEAKER) (test code = 370) 1.2 <=5.9 RECOMMENDED COUMADIN/WARFARIN INR THERAPY RANGESSTANDARD DOSE: 2.0 - 3.0 Includes: PROPHYLAXIS forvenous thrombosis, systemic embolization; TREATMENT for venous thrombosis and/or pulmonary embolus.HIGH RISK: Target INR is 2.5-3.5 for patients with mechanical heart valves.BASIC METABOLIC [id number] 14:58:00 Test Item Value Reference Range Interpretation [...] APPLICABLE FOR DIALYSIS PATIEN TS. HEPATIC FUNCTION [id number] 14:53:00 Test Item Value Reference Range Interpretation [...] 6-55 347) CBC W/PLT COUNT & AUTO [id number] 14:19:00 Test Item Value Reference Range Interpretation [...] = 2801) FLOW PRA CLASS I AND [id number] 12:02:00 Test Item Value Reference Range Interpretation Comments DATE OF SERUM (BEAKER) 9110312 (test code = 2289) SERUM # (BEAKER) (test 487772 code = 3702) FLOW PRA CLASS I AND II See Scanned Report (test code = 2421) HEPATITIS B SURFACE [id number] 13:18:00 Test Item Value Reference Range Interpretation Comments HEPATITIS B SURFACE ANTIBODY < mIU/mL <8.0 (BEAKER) (test code = 647) [id number] 13:08:00 Test Item Value Reference Range Interpretation Comments PROSTATE SPECIFIC ANTIGEN (BEAKER) 0.9 ng/mL 0.0-4.0 (test code = 844) FLOW PRA CLASS I AND [id number] 16:00:00 Test Item Value Reference Range Interpretation Comments DATE OF SERUM (BEAKER) 6040312 (test code = 2289) SERUM # (BEAKER) (test 10290705 code = 2290) FLOW PRA CLASS I AND II See Scanned Report (test code = 2421) BASIC METABOLIC [id number] 15:51:00 Test Item Value Reference Range Interpretation [...] APPLICABLE FOR DIALYSIS PATIEN TS. HEPATIC FUNCTION [id number] 15:48:00 Test Item Value Reference Range Interpretation [...] 6-55 347) CBC W/PLT COUNT & AUTO [id number] 15:11:00 Test Item Value Reference Range Interpretation [...] (test code = 417) 0.00AFB CULTURE + [id number] 19:58:00 Test Item Value Reference Range Interpretation Comments CULTURE (BEAKER) (test No acid-fast bacilli code = 1095) isolated in 42 days AFB SMEAR (BEAKER) No acid fast bacilli (test code = 994) seen AFB CULTURE + [id number] 19:58:00 Test Item Value Reference Range Interpretation Comments CULTURE (BEAKER) (test No acid-fast bacilli code = 1095) isolated in 42 days AFB SMEAR (BEAKER) No acid fast bacilli (test code = 994) seen AFB CULTURE + [id number] 18:21:00 Test Item Value Reference Range Interpretation Comments CULTURE (BEAKER) (test No acid-fast bacilli code = 1095) isolated in 42 days AFB SMEAR (BEAKER) No acid fast bacilli (test code = 994) seen POCT-GLUCOSE [id number] 10:30:00 Test Item Value Reference Range Interpretation Comments POC-GLUCOSE METER 468 mg/dL 70-[address] [facility] [address] ([facility]) (test code = [place]AN[place]UÑ[place] 1538) [address] CREATINE KINASE (CK), TOTAL AND [id number] 08:31:00 Test Item Value Reference Range Interpretation Comments CREATINE KINASE TOTAL (AKER) 42 U/L 29-200 (test code = 380) CREATINE KINASE-MB (AKER) (test 2.3 ng/mL 0.0-6.6 code = 750) CREATINE KINASE-MB INDEX (AKER) 5.5 % (test code = 395) Effective 01/21/2014: CK-MB Reference Range ChangeNew: 0.0-6.6 Previous: 0.0-4.9CK-MB Reference Range:<6.7 Normal6.7-10.0 Borderline>10.0 AbnormalTROPONIN [id number] 08:31:00 Test Item Value Reference Range Interpretation [...] acute neurological disease, and persistent tachyarrhythmia.BASIC METABOLIC [id number] 08:27:00 Test Item Value Reference Range Interpretation [...] S NOT APPLICABLE FOR DIALYSIS PATIEN TS. [id number] 08:24:00 Test Item Value Reference Range Interpretation Comments MAGNESIUM (BEAKER) (test code = 2.4 mg/dL 1.6-2.6 627) CBC W/PLT COUNT & AUTO [id number] 08:17:00 Test Item Value Reference Range Interpretation [...]
[2021-01-18] MEDS ORDERED: HYDROCODONE/APAP 10/325 TAB ONE (00:26)
--- NOTE | 2021-01-18 01:04 | EDPHYS ---
Physician Documentation [facility] Name: Alexis Urbano Age: 65 yrs Sex: Male : 1955 Arrival Date: 01/17/2021 Time: 22:06 Bed 19 Private MD: ED Physician Sen Bear HPI: 01/18 00:36 This 65 yrs old Male presents to ER via EMS with complaints of Hand Pain. pm1 00:36 The patient or guardian reports pain, a rash. The complaints affect the left hand and pm1 right hand. Context: The problem was sustained at an unknown location, resulted from an unknown cause. Onset: The symptoms/episode began/occurred 1 week(s) ago. Modifying factors: The symptoms are alleviated by nothing, the symptoms are aggravated by movement. Associated signs and symptoms: Pertinent negatives: cyanosis distally, decreased sensation distally, fever, numbness distally, tingling distally. Severity of symptoms: in the emergency department the symptoms are actually worse. The patient has not experienced similar symptoms in the past. The patient has not recently seen a physician. Historical: - Allergies: 01/17 23:01 No Known Allergies; vg1 - Home Meds: 23:01 Albuterol Inhl [Active]; amlodipine oral [Active]; aspirin 81 mg Oral chew 1 tab once vg1 daily [Active]; bumetanide 2 mg Oral tab 1 tab once daily [Active]; clonidine HCl 0.2 mg Oral tab 2 times per day [Active]; doxazosin 2 mg Oral tab 1 tab once daily [Active]; gabapentin 100 mg Oral cap 3 times per day [Active]; hydralazine 100 mg Oral tab 3 times per day [Active]; hydrocodone-acetaminophen 10-325 mg Oral tab every 6 hours [Active]; Plavix 75 mg Oral tab 1 tab once daily [Active]; pravastatin 40 mg Oral tab 1 tab once daily [Active]; tizanidine 4 mg Oral tab twice a day [Active]; - PMHx: 23:01 COPD; Diabetes - NIDDM; Dialysis; M/W/F; ESRD; GERD; High Cholesterol; Hypertension; vg1 Arthritis; - PSHx: 23:01 Fistula placed on left arm; vg1 - Immunization history:: Client reports receiving the 2nd dose of the Covid vaccine. - Social history:: Smoking status: Patient reports the use of cigarette tobacco products, smokes one-half pack cigarettes per day. ROS: 01/18 00:36 Constitutional: Negative for fever, chills, and weight loss, Cardiovascular: Negative pm1 for chest pain, palpitations, and edema, Respiratory: Negative for shortness of breath, cough, wheezing, and pleuritic chest pain, MS/Extremity: Negative for injury and deformity. Neuro: Negative for headache, weakness, numbness, tingling, and seizure. Back: Positive for chronic low back pain associated with sitting too long. Skin: Positive for rash, of the right hand and left hand. All other systems are negative. Exam: 00:36 Constitutional: This is a well developed, well nourished patient who is awake, alert, pm1 and in no acute distress. Head/Face: Normocephalic, atraumatic. 00:36 Cardiovascular: Exam negative for acute changes, Rate: normal, Rhythm: regular, Pulses: no pulse deficits are appreciated. 00:36 Respiratory: Exam negative for acute changes, respiratory distress, shortness of breath. 00:36 Musculoskeletal/extremity: ROM: intact in all extremities. 00:36 Skin: Appearance: normal except for affected area, consistent with impetigo, on the right hand, left hand and dorsal aspect of left forearm. 00:36 Neuro: Exam negative for acute changes, Orientation: is normal, Mentation: is normal, Motor: is normal, moves all fours. Vital Signs: 01/17 22:57 BP 200 / 74; Pulse 55; Resp 18; Temp 98.0; Pulse Ox 100% ; Weight 60 kg; Height 5 ft. 6 vg1 in. (167.64 cm); Pain 12/13; 01/18 01:35 BP 168 / 61; Pulse 59; Resp 18; Temp 97.5(O); Pulse Ox 100% on R/A; cc4 01/17 22:57 Body Mass Index 21.35 (60.00 kg, 167.64 cm) vg1 MDM: 00:04 Patient medically screened. pm1 01:02 Data reviewed: vital signs. Data interpreted: Pulse oximetry: on room air is 100 %. pm1 Interpretation: normal. Counseling: I had a detailed discussion with the patient and/or guardian regarding: the historical points, exam findings, and any diagnostic results supporting the discharge/admit diagnosis, the need for outpatient follow up, a family practitioner, to return to the emergency department if symptoms worsen or persist or if there are any questions or concerns that arise at home. Administered Medications: 00:25 Drug: [place] (HYDROcodone-acetaminophen) 10 mg-325 mg 1 tabs Route: PO; cc4 01:35 Follow up: Response: No adverse reaction; Pain is decreased cc4 01:15 Drug: morphine 4 mg Route: IM; Site: right gluteus; cc4 01:35 Follow up: Response: No adverse reaction; Pain is decreased cc4 01:15 Drug: Zofran (Ondansetron) 4 mg Route: PO; cc4 01:35 Follow up: Response: No adverse reaction cc4 Disposition Summary: 01/18/21 01:03 Discharge Ordered Location: Home pm1 Problem: new pm1 Symptoms: have improved pm1 Condition: Stable pm1 Diagnosis - Impetigo pm1 Followup: pm1 - With: Emergency Department - When: As needed - Reason: Worsening of condition Followup: pm1 - With: Private Physician - When: 2 - 3 days - Reason: Recheck today's complaints, Continuance of care, Re-evaluation by your physician Discharge Instructions: - Discharge Summary Sheet pm1 - Impetigo, Adult pm1 Forms: - Medication Reconciliation Form pm1 - Thank You Letter pm1 - Antibiotic Education pm1 - Prescription Opioid Use pm1 Prescriptions: - mupirocin 2 % Topical ointment - apply 1 application by TOPICAL route 3 times per day for 10 days; 1 tube; pm1 Refills: 0, Product Selection Permitted - Cephalexin 250 mg Oral Capsule - take 1 capsule by ORAL route every 12 hours for 10 days; 20 capsule; Refills: pm1 0, Product Selection Permitted Signatures: Jefferson Vasquez NP ESTHETICIAN MAKEUP ARTIST pm1 Leah Cordova RN RN vg1 Kavitha Hoyos RN RN cc4
--- NOTE | 2021-01-18 01:04 | ER ---
Nurse's Notes [facility] Name: Alexis Urbano Age: 65 yrs Sex: Male : 1955 Arrival Date: 01/17/2021 Time: 22:06 Bed 19 Private MD: Diagnosis: Impetigo Presentation: 01/17 22:57 Chief complaint: EMS states: Right hand pain x1 week. Pt applied a topical arthritis vg1 cream and took Benadryl around 1700. Pt states pain feels like was hit with a hammer. Pt BP was 226/83 HR 66 BS160; pt stated forgot to take BP medication. Coronavirus screen: Vaccine status: Patient reports receiving the 2nd dose of the covid vaccine. Client denies travel out of the [place] in the last 14 days. Ebola Screen: Patient negative for fever greater than or equal to 101.5 degrees Fahrenheit, and additional compatible Ebola Virus Disease symptoms. Initial Sepsis Screen: Does the patient meet any 2 criteria? No. Patient's initial sepsis screen is negative. Does the patient have a suspected source of infection? No. Patient's initial sepsis screen is negative. Risk Assessment: Do you want to hurt yourself or someone else? Patient reports no desire to harm self or others. Onset of symptoms was January 10, 2021. 22:57 Method Of Arrival: EMS: [facility] 22:57 Acuity: JOEL 3 vg1 Triage Assessment: 23:01 General: Appears in no apparent distress. uncomfortable, Behavior is calm, cooperative. vg1 Pain: Complains of pain in right hand. Historical: - Allergies: 23:01 No Known Allergies; vg1 - Home Meds: 23:01 Albuterol Inhl [Active]; amlodipine oral [Active]; aspirin 81 mg Oral chew 1 tab once vg1 daily [Active]; bumetanide 2 mg Oral tab 1 tab once daily [Active]; clonidine HCl 0.2 mg Oral tab 2 times per day [Active]; doxazosin 2 mg Oral tab 1 tab once daily [Active]; gabapentin 100 mg Oral cap 3 times per day [Active]; hydralazine 100 mg Oral tab 3 times per day [Active]; hydrocodone-acetaminophen 10-325 mg Oral tab every 6 hours [Active]; Plavix 75 mg Oral tab 1 tab once daily [Active]; pravastatin 40 mg Oral tab 1 tab once daily [Active]; tizanidine 4 mg Oral tab twice a day [Active]; - PMHx: 23:01 COPD; Diabetes - NIDDM; Dialysis; M/W/F; ESRD; GERD; High Cholesterol; Hypertension; vg1 Arthritis; - PSHx: 23:01 Fistula placed on left arm; vg1 - Immunization history:: Client reports receiving the 2nd dose of the Covid vaccine. - Social history:: Smoking status: Patient reports the use of cigarette tobacco products, smokes one-half pack cigarettes per day. Screenin:35 Abuse screen: Denies threats or abuse. Nutritional screening: No deficits noted. cc4 Tuberculosis screening: No symptoms or risk factors identified. Fall Risk Fall in past 12 months (25 points). Assessment: 23:35 General: Appears uncomfortable, Behavior is calm, cooperative. Pain: Complains of pain cc4 in right hand and low back x 1 week. Neuro: No deficits noted. Level of Consciousness is awake, alert, obeys commands, Oriented to person, place, time, situation. Cardiovascular: No deficits noted. Respiratory: No deficits noted. Airway is patent Respiratory effort is even, unlabored, Respiratory pattern is regular, symmetrical, Breath sounds are clear bilaterally. GI: No signs and/or symptoms were reported involving the gastrointestinal system. : No signs and/or symptoms were reported regarding the genitourinary system. EENT: No signs and/or symptoms were reported regarding the EENT system. Derm: Skin has lesions on Scabbed lesion noted of skin middle joint right index finger. Derm: AV fistula noted MOLLY \T\ reports receiving hemodialysis MWF. Musculoskeletal: weakness noted of gait; reports using walker and wheelchair at home; received to ER # 19 via wheelchair. Vital Signs: 22:57 BP 200 / 74; Pulse 55; Resp 18; Temp 98.0; Pulse Ox 100% ; Weight 60 kg; Height 5 ft. 6 vg1 in. (167.64 cm); Pain 12/13; 01/18 01:35 BP 168 / 61; Pulse 59; Resp 18; Temp 97.5(O); Pulse Ox 100% on R/A; cc4 01/17 22:57 Body Mass Index 21.35 (60.00 kg, 167.64 cm) vg1 ED Course: 01/17 22:06 Patient arrived in ED. bp1 23:01 Triage completed. vg1 23:01 Arm band placed on. vg1 23:31 Jefferson Vasquez NP is PHCP. pm1 23:31 Sen Bear MD is Attending Physician. pm1 23:35 Patient has correct armband on for positive identification. Bed in low position. Call cc4 light in reach. Side rails up X 1. Pulse ox on. NIBP on. 23:49 Kavitha Hoyos, RN is Primary Nurse. cc4 01/18 01:35 No provider procedures requiring assistance completed. cc4 01:35 Patient did not have IV access during this emergency room visit. cc4 Administered Medications: 00:25 Drug: [place] (HYDROcodone-acetaminophen) 10 mg-325 mg 1 tabs Route: PO; cc4 01:35 Follow up: Response: No adverse reaction; Pain is decreased cc4 01:15 Drug: morphine 4 mg Route: IM; Site: right gluteus; cc4 01:35 Follow up: Response: No adverse reaction; Pain is decreased cc4 01:15 Drug: Zofran (Ondansetron) 4 mg Route: PO; cc4 01:35 Follow up: Response: No adverse reaction cc4 Outcome: 01:03 Discharge ordered by . pm1 01:35 Discharged to home via wheelchair, with sister driving. cc4 01:35 Condition: stable 01:35 Discharge instructions given to Instructed on discharge instructions, follow up and referral plans. medication usage, Demonstrated understanding of instructions, follow-up care, medications, Prescriptions given X 2. 01:55 Patient left the ED. cc4 Signatures: Jefferson Vasquez NP DOCTOR OF NURSE ANESTHESIA PRACTICE pm1 Leah Cordova, RN RN vg1 Nancy Bhatia [facility] Kavitha Hoyos, RN RN cc4
[2021-01-18] MEDS ORDERED: ONDANSETRON 4 MG (ODT) TAB ONE (01:14)
[2021-01-18] MEDS ORDERED: MORPHINE 4 MG/ML SYR ONE (01:14)
[2021-01-18 03:17] VITALS: BP 125/83; TEMP 98.3; O2SAT 100
== END 2021-01-18 01:55 | disposition home or self-care (01) ==
LOC: ER 22:01
DX: L01.00 Impetigo, unspecified (principal); E11.22 Type 2 diabetes mellitus with diabetic chronic kidney disease; I12.0 Hypertensive chronic kidney disease with stage 5 chronic kidney disease or end stage renal disease; N18.6 End stage renal disease; Z99.2 Dependence on renal dialysis; Z79.82 Long term (current) use of aspirin; Z79.01 Long term (current) use of anticoagulants; F17.210 Nicotine dependence, cigarettes, uncomplicated
CPT/HCPCS: 96372; 99284

== ENCOUNTER 2021-01-22 14:17 | Observation (INO) | payer OTHER ==
--- OUTSIDE RECORDS SUMMARY | 2021-01-22 14:28 | XMS REPORT | Continuity of Care Document ---
:1955 Author Organization Formerly [facility] t Address [address] [place] [address] Care Team Providers Name Role Phone [facility] Primary Care Physician Briseyda-Priscilaayo_A_AH Attending Clinician Unavailable Fran CABALLERO Attending Clinician [...] Number Effective Date Expiration Date S alton [facility] [place] - [id number] 2019 [employer] 00:00:00 (MEDICARE REPLACEMENT/ADVANT AGE - HMO) Problems Condition Condition Condition Status Onset Resolution Last Treating Co mments Source Name Details Category Date Date Treatment Clinician Date Penis pain Penis pain Disease Active U nivers 9-25 ity of 00:00: [place] 00 Medical Branch Tobacco Tobacco Disease Active Univers use use 9-25 ity of 00:00: [place] [facility] Murmur Murmur Disease Active Univers 9-25 ity of 00:00: [place] [facility] PAD PAD Disease Active Overview: Univer s (periphera (periphera 925 [address] ity of l artery l artery 00:00: g of this Sebastián as disease) disease) 00 note Medica l might be Branch different from the original. Added automatic ally from request for surgery [id number] PVD PVD Disease Active 2019-03 Methodi (periphera [...] ge pain Pain 18 Family 00:00: Practic e Type 2 Type 2 Problem Active [facility] diabetes Diabetes 18 Family mellitus Mellitus 00:00: Practi c with with e multiple Multiple complicati Complicati ons ons Chronic Chronic Problem Active [facility] hepatitis Hepatitis 03-12 Fami ly C [...] Active Last [facility] syndrome syndrome -19 Assessguillaume Richards es - 00:00: t & Plan: Medical 00 With T2DM Center and hypertens ion, he meets criteria for metabolic syndrome. Managemen t per his PCP. Chronic Chronic Disease Active Last [facility] hepatitis hepatitis 5- Assessguillaume [place] - C virus C virus [...] CHI S t status status 07-22 Assessguillaume Mary Kya - testing testing 00:00: t & Plan: [...] Allergy 1-26 in mouth, [facility]: [facility] Medical 00 okay with Center shrimp/cr awfish CRAB Allergy Active Itching [facility] 1[facility]26 [facility] - 00:[facility]: Medical 00 Center Family History Family Member Diagnosis Comments Start Date Stop Date Source Natural [facility] Natural mother D[facility] Social History Social Habit Start Date Stop Date Quantity Comments Source History of tobacco Cigarette Smoker [facility] Exposure to Not sure University of SARS-CoV-2 (event) [facility] Tobacco use and 2020-11-28 2020-11-28 Never used Universit y of exposure 00:00:00 00:00:00 [facility] Cigarettes smoked 2019-12-10 2019-12-[address] current (pack per 00:00:00 00:00:00 [facility] l day) - Reported Alcohol intake 2019-12-10 2019-12-10 Ex-drinker [facility] 00:00:00 00:00:00 (finding[facility] Hospital Alcohol Comment 2015-07-23 2015-07-[address] [facility] 00:[facility]00 00:00:00 2005; [facility] Medical [facility] er drinker Tobacco Comment 2015-03-31 2015-03-31 Quit 2006 [facility] 00:[facility]00 00:00:00 [facility] Sex Assigned At [birth year] Universit y of 00:00:00 00:00:00 [facility] Smoking Status Start Date Stop Date Source Light Tobacco Smoker [facility] Practice Current every day 2020-11-28 00:00:00 [facility] smoker [facility] Former smoker 2018-06-05 00:00:00 2018-06-05 00:00:00 [facility] Medications Ordered Filled Start Stop Current Ordering Indication Dosage Frequency Signature Comments Components Source Medication Medication Date Date Medication? Clinician (SIG) Name Name clopidogreL 2020-03 Yes 75mg Take 75 mg Univers 75 mg 0-06 by mouth ity of tablet 18:59: daily. [place] [address] Medical Branch gabapentin 2020-03 Yes 100mg Take 100 Un mariella 100 mg 0-06 mg by ity of capsule 18:59: mouth 3 [place] 29 (three) Medical times Branch daily. HYDROcodone 2020-03 Yes 1{tbl} Take 1 Un mariella -acetaminop 0-06 tablet by ity of hen 10-325 18:59: mouth [place] mg tablet 29 every 6 Medical (six) Branch hours as needed for Pain (scale 4-6). zolpidem 10 2020-03 Yes 10mg Take 10 mg Univers mg tablet 0-06 by mouth ity of 18:59: at bedtime [place] 29 as needed Medical for Branch Insomnia. tiZANidine 2020-03 Yes 4mg Take 4 mg Un mariella 4 mg tablet 0-06 by mouth ity of 18:59: every 4 [place] 29 (four) Medical hours as Branch needed for Muscle Spasms. cloNIDine 2020-03 Yes [id number] .3mg Take 1 U nivers 0.3 mg 0-06 tablet by ity of tablet 00:00: mouth 2 [place] 00 (two) Medical times Branch daily. bacitracin 2020-03 Yes [id number] Apply to Univers 500 0-06 affected ity of unit/gram 00:00: area(s) 2 Sebastián as ointment 00 (two) Medical times Branch daily. lactulose 2020-03 Yes [id number] 15mL Take 15 mL Univers 10 gram/15 0-06 by mouth 3 ity of mL solution 00:00: (three) Sebastián as 00 times Medical daily. Branch lisinopriL 2020-03 Yes [id number] 10mg Take 1 Univers 10 mg 0-06 tablet by ity of tablet 00:00: mouth [place] 00 daily. Medical Branch sevelamer 2020-03 Yes [id number] 800mg Take 1 Univers 800 mg 0-06 tablet by ity of tablet 00:00: mouth 3 [place] 00 (three) Medical times Branch daily with [...] mouth l daily for 30 days. gabapentin 2019- Yes 100mg Q.[id number] Take 100 Methodi (NEURONTIN) 0-06 [id number] mg by s t 100 mg 21:07: [...] needed for l sleep. HYDROcodone 2019-03 Yes [id number] 1{tbl} Q6H Take 1 M ethodi -acetaminop [...] by mouth [facility] - tablet 10:20: daily. [address] aspirin 81 Yes 81mg QD Take [address] MG EC 4-02 by mouth [facility] - tablet 10:20: daily. [address] aspirin 81 Yes 81mg QD Take [address] MG EC 4-02 by mouth [facility] - tablet 10:20: daily. [address] amLODIPine Yes 10mg Take [address] (NORVASC) 4-02 by mouth. [facility] - 10 MG 10:19: Medical tablet [address] [place] [address] amLODIPine Yes 10mg Take [address] (NORVASC) 4-02 by mouth. [facility] - 10 MG 10:19: Medical tablet [address] amLODIPine Yes 10mg Take [address] (NORVASC) 4-02 by mouth. [facility] - 10 MG 10:19: Medical tablet [address] cloNIDine Yes .2mg Q.5D Take 0.2 CHI [...] Med ical 00 BEDTIME Center NEEDED zolpidem 20190 Yes TAKE [address] [facility] (AMBIEN) 10 2-21 TABLET [facility] - mg tablet 00:00: ORALLY AT Med ical 00 BEDTIME Center NEEDED zolpidem 20190 Yes TAKE [address] [facility] (AMBIEN) 10 [...] tablet 00 Center hydrALAZINE 2017-0 Yes 50mg Q.[id number] Take [address] (APRESOLINE 2-06 [id number] tablets [facility] - ) 25 MG 00:00: 3D (50 mg Medical tablet 00 total) by Center mouth 3 (three) times daily. pantoprazol 2017-0 Yes 40mg QD Take [address] e 2-06 tablet (40 [facility] - (PROTONIX) 00:00: mg total) Me dical 40 MG 00 by mouth Center tablet daily. hydrALAZINE 2017-0 Yes 50mg Q.[id number] Take [address] (APRESOLINE 2-06 [id number] tablets [facility] - ) 25 MG 00:00: 3D (50 mg Medical tablet 00 total) by Center mouth 3 (three) times daily. pantoprazol 2017-0 Yes 40mg QD Take [address] e 2-06 tablet (40 [facility] - (PROTONIX) 00:00: mg total) Me dical 40 MG 00 by mouth Center tablet daily. hydrALAZINE 2017-0 Yes 50mg Q.[id number] Take [address] (APRESOLINE 2-06 [id number] tablets [facility] - ) 25 MG 00:00: 3D (50 mg Medical tablet 00 total) by Center mouth 3 (three) times daily. pantoprazol 2017-0 Yes 40mg QD Take [address] e 2-06 tablet (40 [facility] - (PROTONIX) 00:00: mg total) Me dical 40 MG 00 by mouth Center tablet daily. lactulose lactulose No 15mL Q1D lactulose [facility] 10 gram/15 10 gram/15 10 gram/15 Family mL (15 mL) mL (15 mL) mL (15 mL) Practic oral oral oral e solution solution solution Take 15 mL Take 15 mL Take 15 mL every day every day every day by oral by oral by oral route as route as route as directed. directed. directed. L[place] 10 Lacon 10 No 1 Q4H [place] 10 Milo tiffanie mg-325 mg mg-325 mg mg-325 mg Family tablet Take tablet Take tablet Practic 1 tablet 1 tablet Take 1 e every 4 every 4 tablet hours by hours by every 4 oral route oral route hours by as needed. as needed. oral route as needed. pravastatin pravastatin No 1 Q1D [facility] mg 40 mg n 40 mg Family tablet Take tablet Take tablet Practic 1 tablet 1 tablet Take 1 e every day every day tablet by oral by oral every day route. route. by oral route. Renvela 800 Renvela 800 No 1 TID Renvela [facility] mg tablet mg tablet 800 mg Fam traci Take 1 Take 1 tablet Practic tablet 3 tablet 3 Take 1 e times a day times a day tablet 3 by oral by oral times a route. route. day by oral route. Sensipar 30 Sensipar 30 No 1 Q1D Sensipar [facility] mg tablet mg tablet 30 mg Fami ly Take 1 Take 1 tablet Practic tablet tablet Take 1 e every day every day tablet by oral by oral every day route. route. by oral route. sildenafil sildenafil No 1 Q1D sildenafil [facility] 100 mg 100 mg 100 mg Family tablet Take tablet Take tablet Practic 1 tablet 1 tablet Take 1 e every day every day tablet by oral by oral every day route. route. by oral route. tizanidine tizanidine No 1 Q6H tizanidine [facility] 4 mg tablet 4 mg tablet 4 mg F amily Take 1 Take 1 tablet Practic tablet tablet Take 1 e every 6 every 6 tablet hours by hours by every 6 oral route oral route hours by as as oral route directed. directed. as directed. zolpidem 10 zolpidem 10 No 1 Q1D zolpidem [facility] mg tablet mg tablet 10 mg [...] 210 Auryxia 210 No 2 TID Auryxia [facility] mg iron mg iron 210 mg Family tablet Take tablet Take iron P ractic 2 tablets 3 2 tablets 3 tablet e times a day times a day Take 2 by oral by oral tablets 3 route. route. times a day by oral route. carvedilol carvedilol No 1 BID carvedilol [facility] 6.25 mg 6.25 mg 6.25 mg Family tablet Take tablet Take tablet Practic 1 tablet 1 tablet Take 1 e twice a day twice a day tablet by oral by oral twice a route. route. day by oral route. clonidine clonidine No 1 BID clonidine [facility] HCl 0.2 mg HCl 0.2 mg HCl 0.2 mg Family tablet Take tablet Take tablet Practic 1 tablet 1 tablet Take 1 e twice a day twice a day tablet by oral by oral twice a route. route. day by oral route. gabapentin gabapentin No 1capsul TID gabapentin [facility] 100 mg 100 mg e(s) 100 mg Family capsule capsule capsule Practi c Take 1 Take 1 Take 1 e capsule 3 capsule 3 capsule 3 times a day times a day times a by oral by oral day by route. route. oral route. Immunizations Ordered Filled Immunization Date Status Comments [facility] Immunization Name Name [facility] () 2020-04-01 Completed University of 00:00:00 [facility] Influenza Virus 2019-12-20 Completed Universit y of Vaccine 00:00:00 [facility] PPD () 2019-04-03 Completed University of 00:00:00 [facility] pneumococcal pneumococcal 2019-01-04 Completed [facility] alexia conjugate PCV 13 conjugate PCV 13 00:00:00 Pr actice influenza, influenza, 2019-01-04 Completed [facility] injectable, injectable, 00:00:00 Practice quadrivalent quadrivalent Influenza Virus 2018-12-26 Completed Universit y of Vaccine 00:00:00 [facility] PPD (TB) 2018-07-20 Completed University of 00:00:00 [facility] PPD (TB) 2018-07-04 Completed University of 00:00:00 [facility] HEP B, Adult Dosage 2018-04-18 Completed Unive rsity of 00:00:00 [facility] HEP B, Adult Dosage 2017-12-20 Completed Unive rsity of 00:00:00 [facility] HEP B, Adult Dosage 2017-11-20 Completed Unive rsity of 00:00:00 [facility] Influenza Virus 2017-11-15 Completed Universit y of Vaccine 00:00:00 [facility] HEP B, Adult Dosage 2017-10-20 Completed Unive rsity of 00:00:00 [facility] PPD (TB) 2016-08-17 Completed University of 00:00:00 [facility] PPD (TB) 2016-04-03 Completed University of 00:00:00 [facility] PPD Test 2016-04-[address] [facility] - 00:[facility]:00 [facility] PPD Test 2016-04-[address] [facility] - 00:00:00 [facility] PPD Test 2016-04-[address] [facility] - 00:00:00 [facility] Influenza Virus 2015-12-02 Completed Universit y of Vaccine 00:00:00 [facility] Vital Signs Vital Name Observation Time Observation Value Comments Source Systolic blood 2021-01-12 199 mm[Hg] University of pressure 14:23:00 [facility] Diastolic blood 2021-01-12 74 mm[Hg] University o f pressure 14:23:00 [facility] Heart rate 2021-01-12 60 /min [facility] 14:23:00 [facility] Body temperature 2021-01-12 36.61 Idalia [facility] 14:23:00 [facility] Body height 2021-01-12 167.6 cm [facility] 14:23:00 [facility] Body weight 2021-01-12 64.003 kg [facility] 14:23:00 [facility] BMI 2021-01-12 22.77 kg/m2 University 14:23:00 [facility] Height 2019-09-03 66 [in_i] [facility] 00[facility] Height 2019-07-23 66 [in_i] [facility] 00:[facility]:00 Practice BMI (Body Mass 2019-07-23 25.8 kg/m2 [facility] Index) 00:00:00 Practice Body Weight 2019-07-23 160 [lb_av] [facility] 00:00:00 Practice Systolic blood 2019-12-10 206 mm[Hg] [employer] Jisha made [facility] 19:40:00 [facility] Diastolic blood 2019-12-10 88 mm[Hg] [employer]PER[employer] Jisha made [facility] 19:40:00 [facility] Heart rate 2019-12-10 69 /min [facility] 19:40:00 Hospital Body temperature 2019-12-10 37.11 Idalia [facility] 17:15:24 Hospital Respiratory rate 2019-12-10 16 /min [facility] 17:15:24 Hospital Oxygen saturation 2019-12-10 96 /min [facility] in Arterial blood 17:15:24 Hospital by Pulse oximetry Body weight 2019-12-10 72.848 kg [facility] 11:00:00 Hospital BMI 2019-12-10 25.92 kg/m2 [facility] 11:00:00 Hospital Body height 2019-12-09 167.6 cm [facility] 21:00:00 Hospital Procedures Procedure Date / Time Performing Clinician Source Performed ECG 12-LEAD 2019-12-10 19:01:[address] [facility] TROPONIN 2019-12-10 17:50:[address] [facility] BASIC METABOLIC PANEL 2019-12-10 10:33:00 [facility] ESTIMATED GFR 2019-12-10 10:33:00 [facility] HEMODIALYSIS 2019-12-10 01:17:14 AlrouSkyler calvillo Ho spital [place] < 1 HOUR 2019-12-10 00:26:47 Martita Corral Ho spital HEPATITIS B SURFACE 2019-12-10 00:13:00 [facility] ANTIGEN HEPATITIS B SURFACE 2019-12-10 00:13:00 [facility] ANTIBODY HEMODIALYSIS 2019-12-09 21:51:41 Skyler Rand [facility]ital HEMODIALYSIS 2019-12-09 21:09:37 Skyler Rand [facility] POC GLUCOSE 2019-12-09 21:02:00 Naz Corraltaharriet Schmid Ho spital FL AN ELECTIVE 2019-12-09 18:56:58 Antonieta Lawrence [facility] SUPRAGLOTTIC AIRWAY AORTOGRAPHY, POSSIBLE 2019-12-09 18:47:00 Martita Corral [facility] ANGIOPLASTY POC GLUCOSE 2019-12-09 17:42:00 Martita Corral spital POC PANEL 2019-12-09 15:37:00 Naz [facility]raltam [facility] COMPREHENSIVE METABOLIC 2019-12-09 15:32:00 [facility] TYPE AND SCREEN 2019-12-09 15:32:00 Binu Wilson spital Behzad Christine ESTIMATED GFR 2019-12-09 15:32:00 Naz Corraltam Binu Pacheco spital XR CHEST 2 VW 2019-12-05 18:38:59 Shayna, Utmachelle jones ECG PRE/POST OP 2019-12-05 18:07:15 Martita Corral PROTHROMBIN TIME WITH INR 2019-12-05 17:45:00 [facility] [place] [facility] PARTIAL THROMBOPLASTIN 2019-12-05 17:45:00 [facility] TIME (PTT) COVID-19 QUALITATIVE 2019-12-05 17:37:00 [facility] RT-PCR HC COMPLETE BLD COUNT 2019-12-05 17:36:00 [facility] W/AUTO DIFF HEMOGLOBIN A1C 2019-12-05 17:36:00 Binu [...] s - Test 00:00:00 (procedure) [code = [facility] 25001607] Future Scheduled 2019-03-[address] [facility] - Test 00:00:00 (procedure) [code = [facility] 26847669] Future Scheduled 2019-03-[address] [facility] - Test 00:00:00 (procedure) [code = [facility] 12950460] Future Scheduled 2016-09-[address] [facility] - Test 00:00:00 measurement Medical Center (procedure) [code = 52078737] Future Scheduled 2016-09-[address] [facility] - Test 00:00:00 measurement Medical Center (procedure) [code = 18220642] Future Scheduled 2016-09-[address] [facility] - Test 00:00:00 measurement Medical Center (procedure) [code = 39660468] Future Scheduled 2016-06-[address] [facility] - Test 00:00:00 malignant neoplasm of Medica l Center colon (procedure) [code = 724727648] Future Scheduled 2016-06-[address] [facility] - Test 00:00:00 malignant neoplasm of Medica l Center colon (procedure) [code = 325540472] Future Scheduled 2016-06-[address] [facility] - Test 00:00:00 malignant neoplasm of Medica l Center colon (procedure) [code = 014903984] Future Scheduled 2015-03-[address] [...] 00:00:00 examination Medical Center (regime/therapy) [code = 707656794] Future Scheduled 1967-08-29 Urine screening [facility] - Test 00:00:00 protein (procedure) Medical Center [code = 243300309] Future Scheduled 1967-08-29 DIABETIC EYE EXAM [facility] - Test 00:00:00 [code = DIABETIC EYE Medical Center EXAM] Future Scheduled 1967-08-[address] [facility] - Test 00:00:00 examination Medical Center (regime/therapy) [code = 651969888] Future Scheduled 1967-08-29 Urine screening [facility] - Test 00:00:00 protein (procedure) Medical Center [code = 631996876] Future Scheduled 1967-08-29 DIABETIC EYE EXAM [facility] - Test 00:00:00 [code = DIABETIC EYE Medical Center EXAM] Future Scheduled 1967-08-[address] [facility] - Test 00:00:00 examination Medical Center (regime/therapy) [code = 460200522] Future Scheduled 1967-08-29 Urine screening [facility] - Test 00:00:00 protein (procedure) Medical Center [code = 660174396] Future Scheduled 1961-08-[address] [...] EYE EXAM] Future Scheduled [facility] Test [code = DIABETIC FOOT EXAM] [...] Date/Time Type Type Clinicians Facility Department ID 2021-01-19 Outpatient Briseyda-Mbayo [facility] [id number] [facility] 10:34:00 _A_AH 38634 Family Practic e 2021-01-19 [facility] [id number] [facility] 07:58:24 _A_AH 28659 Family Practic e 2021-01-19 Outpatient Briseyda-Mbayo [facility] [id number] -202 [facility] 04:34:14 _A_AH 21363 Family Practic e 2021-01-18 Outpatient Briseyda-Mbayo [facility] [id number] -202 [facility] 19:52:02 _A_AH 54659 Family Practic e 2021-01-18 Outpatient Briseyda-Mbayo [facility] [id number] -202 [facility] 16:37:30 _A_AH 06407 Family Practic e 2021-01-18 Outpatient Briseyda-Mbayo [facility] [id number] -202 [facility] 13:35:20 _A_AH 92813 Family Practic e 2021-01-18 Outpatient Briseyda-Mbayo [facility] [id number] -202 [facility] 13:02:52 _A_AH 50177 Family Practic e 2021-01-17 Outpatient Briseyda-Mbayo [facility] [id number] -202 [facility] 20:29:37 _A_AH 68396 Family Practic e 2021-01-17 Outpatient Briseyda-Mbayo [facility] [id number] -202 [facility] 17:31:00 _A_AH 88782 Family Practic e 2021-01-16 Outpatient Briseyda-Mbayo [facility] [id number] -202 [facility] 08:27:39 _A_AH 03317 Family Practic e 2021-01-15 Outpatient Briseyda-Mbayo [facility] [id number] -202 [facility] 21:20:11 _A_AH 25577 Family Practic e 2021-01-15 Outpatient Briseyda-Mbayo [facility] V[facility] [id number] -202 [facility] 20:11:24 _A_AH 72197 Family Practic e 2021-01-12 2021-01-12 Office [facility] [id number] Univers 08:07:31 08:42:43 Visit [facility] 350.1.13.10 i ty of CLINICS 4.2.7.2.686 Deon almonte [id number] [facility] 204 Branch 2020-05-21 2020-05-21 Telephone Gary, 1.2.840.1 [id number] Methodi 00:00:00 00:00:[address] Brian 3.430.2.7 Hospi ta .3.406982 l .8 2019-12-09 2019-12-10 Hospital Shayna, [facility] 1.2.840.1 [id number] Methodi 09:56:00 16:06:00 Encounter Natalie Headley 57102.1.[address] 3.430.2.7 Hospit a .3.741152 l .8 2019-12-09 2019-12-09 Anesthesia Sameer Donohue 1.2.840.1 [id number] Methodi 13:47:00 16:02:00 Event Elvie Larkin 02025.1.[address] 3.430.2.7 Hospit a .3.132177 l .8 2019-12-09 2019-12-09 Surgery Shayna, 1.2.840.1 [id number] Methodi 13:10:00 14:55:00 [facility] [address]64.[address] 3.430.2.7 Hospit a .3.622566 l .8 2019-12-05 2019-12-05 Hospital Shayna, 1.2.840.1 [id number] Methodi 13:17:37 23:59:00 Encounter [facility] 36540.1.[address] 3.430.2.7 Hospit a .3.036675 l .8 2019-12-05 2019-12-05 Pre-Admiss Shayna, 1.2.840.1 [id number] 2 [id number] Methodi 12:02:21 13:02:21 ion [facility] 85381.1.[address] Testing 3.430.2.7 Hospit a .3.977388 l .8 2019-12-05 2019-12-05 Travel 1.2.840.1 1.2.363.785 [id number] Methodi 00:00:00 00:00:[address] 3.430.2.7 0.2.7.3.698 Ho spita .3.072639 084.8 l .8 2019-11-29 2019-11-29 Travel 1.2.840.1 1.2.973.918 [id number] Methodi 00:00:00 00:00:[address] 3.430.2.7 0.2.7.3.698 Ho spita .3.671981 084.8 l .8 2019-10-10 2019-10-10 Hospital Radiology [facility] 1.2.840.114 [id number] 12:34:44 23:59:00 Encounter [place] 350.1.13.10 [place] 4.2.7.2.686 [place] [id number] 2019-10-10 2019-10-10 Nut Culler Celsa, Rodney [facility] 1.2.840.114 [id number] 12:38:05 12:53:05 Visit Lab Main [place] 350.1.13.10 [place] 4.2.7.2.686 Professio [id number] [address] 2019-09-03 2019-09-03 Veronica VFP [place] - [id number] V illage 00:00:00 00:00:00 [facility] traci elkins G[employer]PECTING SUPERVISOR: Medical - Practi c [address] [email or web address]_V@[address] [address] , Ph. 2019-07-23 2019-07-23 Veronica VFP [place] - [id number] V illage 00:00:00 00:00:00 [facility] traci elkins GRAV[employer] PROSPECTING SUPERVISOR: Medical - Practi c [address] [email or web address]_ e [place] [address], [place] [address] , Ph. Results Test Description Test Time Test Comments Results Result Comments Source ECG 12 lead 2019-12-10 21:17:46 Test Item Value Reference Range Interpretation Comme nts Ventricular rate (test code = 253) Atrial rate (test code = 255) FL interval (test code = 266) QRSD interval [...] T wave abnormality, worse [facility] [place] [facility] Tqdt0312-02-55 00:38:18EXAMINATION: [place] < 1 HOUR CLINICAL [...] 114 fluoroscopic images. 27.1 minutes of fluoroscopy time.[facility]2020-10-05 18:56:58WeAntonieta kingsley CRNA 12/09/2019 1:57 PMAirway Date/Time: 12/09/2019 1:57 PMPerformed by: Antonieta Lawrence CRNAAuthorized by: Sameer Donohue MD Location: ORUrgency: ElectiveDifficult Airway: No Anesthesiologist: Sameer Donohue MDResident/LATEX CASTER/AA: Antonieta Lawrence CRNAPerformed by: resident/LATEX CASTER/AAPreoxygenated with 100% O2: Yes C-spine Precautions Maintained Throughout: Yes Mask Ventilation: Not attemptedFinal Airway Type: Supraglottic airwayFinal LMA: I-GelLMA Size: 4Number of Attempts at Approach: 1[facility] [facility] Pre[facility]Post [id number] 05:44:14 Test Item Value Reference Range Interpretation Comments Ventricular rate (test code = 253) Atrial rate (test code = 255) FL interval (test code = 266) QRSD interval [...] Baker MD ([id number]) on 12/06/2019 12:44:11 [facility] [id number] 21:56:18EXAMINATION: XR CHEST 2 VW CLINICAL HISTORY: Z01.818 Encounter for other preprocedural examination, PRE OP COMPARISON: None. IMPRESSION: Heart and mediastinum: Cardiomediastinal silhouette is prominent. Atherosclerotic calcifications of the aortic arch. Lungs and pleura: There is no focal airspace disease, pleural effusion or pneumothorax. Bones: No acute abnormality. Spinal cord stimulator deviceseen overlying the thoracic spine. [facility]-[id number] Dictated and approved by pharmacy resident/fellow: Joseph Malik M.D. I, Daniel Abbott, personally reviewed the images and resident's/fellow's findings and agree with the final report.[facility], Radiology Results Incoming - 12/05/2019 4:59 PM CDT EXAMINATION: XR CHEST 2 VWCLINICAL HISTORY: Z01.818 Encounter for other preprocedural examination, PRE OPCOMPARISON: None.IMPRESSION:Heart and mediastinum: Cardiomediastinal silhouette is prominent. Atherosclerotic calcifications of the aortic arch.Lungs and pleura: There is no focal airspace disease, pleural effusion or pneumothorax.Bones: No acute abnormality.Spinal cord stimulator device seen overlying the thoracic spine.[facility]-[id number] and approved by pharmacy resident/fellow: Nate Schmitz, Daniel Abbott, personallyreviewed the images and resident's/fellow's findings and agree with the final report. [facility]-COV2/RT-PCR ([facility] & REF LABS)2019-10-04 22:28:00 Test Item Value Reference Range Interpretation Comments SARS-COV2/RT-PCR (test Negative Not Detected, Negative, code = 8399262) See external report for linked test SARS-COV-2 PERFORMING LAB [facility] SUZI (test code = 8600026) Negative result for this test determines that [...] 564(g) of the Act.Fact Sheet for Healthcare Providers:https://www.Bawteidel.com/sites/default/files/product/documents/Fact_Shee x_BE_Gnuwyptaw_Xyvl_GVUS-RbK-2.pdfFact Sheet for Healthcare Patients:https://www.Yurbuds.com/sites/default/files/product/ documents/Hosx_Urxum_Ixrpjogc_Vitf_UGPA-GyP-6.pdfPerforming Laboratory:[facility] [facility], [place] [address]QJBZ-UAN8/RT-PCR ([facility] & REF LABS)2019-10-01 04:23:00 Test Item Value Reference Range Interpretation Comments SARS-COV2/RT-PCR (test code Negative Not Detected, Negative, = 6164475) See external report for linked test SARS-COV-2 PERFORMING LAB [facility] (test code = 2215262) Negative results do not preclude SARS-CoV-2 infection [...] of the Act.Fact Sheet for Healthcare Pro viders:https://www.Roomorama.[employer]/Documents/Xpert%20Xpress%20SARS%20CoV-2/Fact%20Sh eets/3023802%44FUUV-RWD-2%20HEALTHCARE%20PROVIDERS%20FACT%20SHEET.pdfFact Sheet for Healthcare Patients:https://www.Squeakee id.[employer]/Documents/Xpert%20Xpress%20SARS%20CoV-2/Fact%20Sheets/3023801%20SARS-COV -2%20PATIENT%20FACT%20SHEET.pdfPerforming Laboratory:[facility] [facility].[place], [place] [address]ENDEOIM IMAGING, MULTI, PHARM, SPECT 2019-02-21 15:54:00Referring: Dr. Schultz [facility] REPORT PROCEDURE: MYOCARDIAL PERFUSION SPECT IMAGING (Rest/Stress)CPT CODE: 05878 INDICATION: Renal transplant evaluation, hypertension, shortness of [...] MDReport Verified Date/Time: 02/21/2019 15:54:30 Reading Location: [address] Reading Room [id number] 17:11:00 Test Item Value Reference Range Interpretation Comments PROSTATE SPECIFIC ANTIGEN (BEAKER) 0.8 ng/mL 0.0-4.0 (test code = 844) HEPATITIS B SURFACE [id number] 17:11:00 Test Item Value Reference Range Interpretation Comments HEPATITIS B SURFACE ANTIBODY 612.9 mIU/mL <8.0 H (BEAKER) (test code = 647) PROTHROMBIN TIME/[id number] 14:59:00 Test Item Value Reference Range Interpretation Comments PROTIME (BEAKER) (test code = 15.6 seconds 11.7-14.7 H 759) INR (BEAKER) (test code = 370) 1.2 <=5.9 RECOMMENDED COUMADIN/WARFARIN INR THERAPY RANGESSTANDARD DOSE: 2.0 - 3.0 Includes: PROPHYLAXIS forvenous thrombosis, systemic embolization; TREATMENT for venous thrombosis and/or pulmonary embolus.HIGH RISK: Target INR is 2.5-3.5 for patients with mechanical heart valves.BASIC METABOLIC [id number] 14:58:00 Test Item Value Reference Range Interpretation [...] APPLICABLE FOR DIALYSIS PATIEN TS. HEPATIC FUNCTION [id number] 14:53:00 Test Item Value Reference Range Interpretation [...] 6-55 347) CBC W/PLT COUNT & AUTO [id number] 14:19:00 Test Item Value Reference Range Interpretation [...] = 2801) FLOW PRA CLASS I AND [id number] 12:02:00 Test Item Value Reference Range Interpretation Comments DATE OF SERUM (BEAKER) 9110312 (test code = 2289) SERUM # (BEAKER) (test 981509 code = 2290) FLOW PRA CLASS I AND II See Scanned Report (test code = 2421) HEPATITIS B SURFACE [id number] 13:18:00 Test Item Value Reference Range Interpretation Comments HEPATITIS B SURFACE ANTIBODY < mIU/mL <8.0 (BEAKER) (test code = 647) [id number] 13:08:00 Test Item Value Reference Range Interpretation Comments PROSTATE SPECIFIC ANTIGEN (BEAKER) 0.9 ng/mL 0.0-4.0 (test code = 844) FLOW PRA CLASS I AND [id number] 16:00:00 Test Item Value Reference Range Interpretation Comments DATE OF SERUM (BEAKER) 704353 (test code = 2289) SERUM # (BEAKER) (test 189725 code = 2290) FLOW PRA CLASS I AND II See Scanned Report (test code = 2421) BASIC METABOLIC [id number] 15:51:00 Test Item Value Reference Range Interpretation [...] APPLICABLE FOR DIALYSIS PATIEN TS. HEPATIC FUNCTION [id number] 15:48:00 Test Item Value Reference Range Interpretation [...] 6-55 347) CBC W/PLT COUNT & AUTO [id number] 15:11:00 Test Item Value Reference Range Interpretation [...] (test code = 417) 0.00AFB CULTURE + [id number] 19:58:00 Test Item Value Reference Range Interpretation Comments CULTURE (BEAKER) (test No acid-fast bacilli code = 1095) isolated in 42 days AFB SMEAR (BEAKER) No acid fast bacilli (test code = 994) seen AFB CULTURE + [id number] 19:58:00 Test Item Value Reference Range Interpretation Comments CULTURE (BEAKER) (test No acid-fast bacilli code = 1095) isolated in 42 days AFB SMEAR (BEAKER) No acid fast bacilli (test code = 994) seen AFB CULTURE + [id number] 18:21:00 Test Item Value Reference Range Interpretation Comments CULTURE (BEAKER) (test No acid-fast bacilli code = 1095) isolated in 42 days AFB SMEAR (BEAKER) No acid fast bacilli (test code = 994) seen POCT-GLUCOSE [id number] 10:30:00 Test Item Value Reference Range Interpretation Comments POC-GLUCOSE METER 468 mg/dL 70-110 HH TESTED AT [facility] [address] (BEAKER) (test code = [place] 1538) [address] CREATINE KINASE (CK), TOTAL AND [id number] 08:31:00 Test Item Value Reference Range Interpretation Comments CREATINE KINASE TOTAL (BEAKER) 42 U/L 29-200 (test code = 380) CREATINE KINASE-MB (BEAKER) (test 2.3 ng/mL 0.0-6.6 code = 750) CREATINE KINASE-MB INDEX (BEAKER) 5.5 % (test code = 395) Effective 01/21/2014: CK-MB Reference Range ChangeNew: 0.0-6.6 Previous: 0.0-4.9CK-MB Reference Range:<6.7 Normal6.7-10.0 Borderline>10.0 AbnormalTROPONIN [id number] 08:31:00 Test Item Value Reference Range Interpretation [...] acute neurological disease, and persistent tachyarrhythmia.BASIC METABOLIC [id number] 08:27:00 Test Item Value Reference Range Interpretation [...] S NOT APPLICABLE FOR DIALYSIS PATIEN TS. [id number] 08:24:00 Test Item Value Reference Range Interpretation Comments MAGNESIUM (BEAKER) (test code = 2.4 mg/dL 1.6-2.6 627) CBC W/PLT COUNT & AUTO [id number] 08:17:00 Test Item Value Reference Range Interpretation [...]
[2021-01-22] MEDS ORDERED: FENTANYL CITR 100 MCG/2 ML ONE (15:43)
[2021-01-22 15:52] LABS: Protime INR 1.14
[2021-01-22 15:57] LABS: Absolute Lymphocytes (CBC) 1.1 K/uL (0.7-4.9); Basophils % 1.3 % (0-1.3); Hematocrit 27.2 % (39.6-49.0); Lymphocytes % 13.5 % (15.3-44.8); MPV 8.3 fL (7.6-11.3); RBC Red Blood Cell Count 2.87 M/uL (4.33-5.43)
[2021-01-22 16:07] LABS: ALT/SGPT 7 U/L (12-78); AST/SGOT 13 U/L (15-37); BUN Blood Urea Nitrogen 63 mg/dL (7-18); Bicarbonate 23 mmol/L (21-32); Glucose Level 151 mg/dL (74-106); Potassium 5.2 mmol/L (3.5-5.1); Sodium Level 132 mmol/L (136-145)
[2021-01-22 16:08] LABS: Albumin 2.2 g/dL (3.4-5.0); Alkaline Phosphatase 210 U/L (45-117); Bilirubin Direct 0.7 mg/dL (0-0.2); Bilirubin Total 1.1 mg/dL (0.2-1.0); Magnesium 2.5 mg/dL (1.8-2.4); Protein, Total 6.6 g/dL (6.4-8.2); Troponin (Emerg Dept Use Only) < 0.02 ng/mL (0.0-0.045)
--- NOTE | 2021-01-22 16:33 | RAD REPORT ---
EXAM DESCRIPTION: CT - Head C Spine Mpr Wo Con - 01/22/2021 3:58 pm CLINICAL HISTORY: Right hand weakness COMPARISON: October 2020 TECHNIQUE: Computed axial tomography of the head and cervical spine was obtained. Sagittal and coronal reconstruction was performed. All CT scans are performed using dose optimization technique as appropriate and may include automated exposure control or mA/KV adjustment according to patient size. FINDINGS: An intracranial bleed is not seen. The ventricles are normal in caliber. An extra-axial fl uid collection is not noted.Fluid within the visualized sinuses and mastoids is not seen A cervical fracture is not visualized. No dislocation is noted. A high-grade central/foraminal stenosis is not seen Prominent vascular calcifications IMPRESSION: No acute intracranial abnormality is seen. A cervical fracture is not visualized. A high-grade cervical central/foraminal stenosis is not seen
[2021-01-22 16:41] LABS: NT PRO-BNP > 175000 pg/mL (<125)
--- NOTE | 2021-01-22 17:19 | RAD REPORT ---
EXAM DESCRIPTION: RAD - Hand Right 3 View - 01/22/2021 4:43 pm CLINICAL HISTORY: Right hand pain status post injury FINDINGS: No acute fracture or dislocation seen. Old fracture is noted. Prominent vascular calcifications. Osteoporosis
[2021-01-22] MEDS ORDERED: INSULIN -REGULAR HUMAN 50 UNIT/0.5 ML ML ONE (17:47)
[2021-01-22] MEDS ORDERED: FOLIC ACID 5 MG/ML VIAL ONE (17:48)
[2021-01-22] MEDS ORDERED: D50W 25 GM/50 ML SYRINGE IV ONE (17:48)
[2021-01-22] MEDS ORDERED: SOD POLYSTYREN SUL 15 GM/60 ML UCUP ONE (17:48)
--- NOTE | 2021-01-22 18:27 | RAD REPORT ---
EXAM DESCRIPTION: Kiana Single View01/22/2021 3:49 pm CLINICAL HISTORY: Leg swelling and cardiomegaly COMPARISON: none FINDINGS: The lungs appear clear of acute infiltrate. The heart is mildly to moderately enlarged. Upper lobe vessels are prominent indicative of pulmonary venous hypertension
[2021-01-22] MEDS ORDERED: MORPHINE 2 MG/ML SYR ONE ×2 (18:56→20:07)
--- NOTE | 2021-01-22 19:06 | RAD REPORT ---
EXAM DESCRIPTION: Celine Angio01/22/2021 6:49 pm CLINICAL HISTORY: Right hand weakness COMPARISON: None TECHNIQUE: 50 cc Isovue 370 was administered intravenously. 3D MIP reconstruction performed All CT scans are performed using dose optimization technique as appropriate and may include automated exposure control or mA/KV adjustment according to patient size. FINDINGS: Mild to moderate calcified plaque involves proximal subclavian and common carotid arteries . Moderate calcified plaque left carotid bulb/proximal left internal carotid artery. Mild calcified plaque right carotid bulb/ proximal right internal carotid artery. Mild calcified plaque distal internal carotid arteries. Mild calcified plaque vertebral arteries IMPRESSION: Moderate calcified plaque left carotid bulb/proximal left internal carotid artery NASCET criteria used. Mild 0-49% stenosis Moderate 50-69% stenosis Severe 70-99% stenosis
--- NOTE | 2021-01-22 19:10 | RAD REPORT ---
EXAM DESCRIPTION: CTHead angio01/22/2021 6:48 pm CLINICAL HISTORY: Right-sided weakness COMPARISON: None TECHNIQUE: CT angiogram of the head was obtained. 3D MIPS reconstruction performed. All CT scans are performed using dose optimization technique as appropriate and may include automated exposure control or mA/KV adjustment according to patient size. FINDINGS: The basilar, anterior cerebral, middle cerebral and posterior cerebral arteries are normal caliber. An aneurysm is not seen. Mild calcified plaque within the distal internal carotid arteries. A significant stenosis is not noted. IMPRESSION: No acute abnormality is displayed
--- NOTE | 2021-01-22 19:43 | ER ---
Nurse's Notes [facility] Name: Alexis Urbano Age: 65 yrs Sex: Male : 1955 Arrival Date: 01/22/2021 Time: 14:21 Bed 5 Private MD: Diagnosis: Hypertensive chronic kidney disease with stage 5 chronic kidney disease or end stage renal disease;Weakness-Right Arm and Right Leg Presentation: 01/22 14:22 Chief complaint: EMS states: right hand pain X 10 days, went to sleep at 1 am and when iw he woke up 2 hours ago his right arm was numb and is weak, can't hr specialist his walker with his right hand. 14:37 Method Of Arrival: Wheelchair iw 14:39 Coronavirus screen: At this time, the client does not indicate any symptoms associated iw with coronavirus-19. Ebola Screen: Patient negative for fever greater than or equal to 101.5 degrees Fahrenheit, and additional compatible Ebola Virus Disease symptoms Patient denies exposure to infectious person. Patient denies travel to an Ebola-affected area in the 21 days before illness onset. No symptoms or risks identified at this time. Initial Sepsis Screen: Does the patient meet any 2 criteria? No. Patient's initial sepsis screen is negative. Does the patient have a suspected source of infection? No. Patient's initial sepsis screen is negative. Risk Assessment: Do you want to hurt yourself or someone else? Patient reports no desire to harm self or others. Onset of symptoms was January 22, 2021. 14:39 Acuity: JOEL 3 iw Triage Assessment: 14:55 General: Appears in no apparent distress. Behavior is calm, cooperative, appropriate ll1 for age. Pain: Complains of pain in right arm. Musculoskeletal: Circulation, motion, and sensation intact. Capillary refill < 3 seconds, Reports weakness in right arm numbness in right arm pain in right arm. Historical: - Allergies: 14:38 No Known Allergies; iw - PMHx: 14:38 Arthritis; COPD; Diabetes - NIDDM; ESRD; Dialysis; M/W/F; GERD; High Cholesterol; iw Hypertension; - PSHx: 14:38 Fistula placed on left arm; iw - Immunization history:: Adult Immunizations up to date. - Social history:: Smoking status: Patient reports the use of cigarette tobacco products, smokes one pack cigarettes per day. Screenin:39 Fall Risk IV access (20 points). Total Gray Fall Scale indicates No Risk (0-24 pts). ll1 14:55 Abuse screen: Denies threats or abuse. Nutritional screening: No deficits noted. ll1 Tuberculosis screening: No symptoms or risk factors identified. Assessment: 16:00 Reassessment: No changes from previously documented assessment. Patient and/or family ll1 updated on plan of care and expected duration. Pain level reassessed. Patient is alert, oriented x 3, equal unlabored respirations, skin warm/dry/pink. 17:00 Reassessment: No changes from previously documented assessment. Patient and/or family ll1 updated on plan of care and expected duration. Pain level reassessed. Patient is alert, oriented x 3, equal unlabored respirations, skin warm/dry/pink. 18:00 Reassessment: No changes from previously documented assessment. Patient and/or family ll1 updated on plan of care and expected duration. Pain level reassessed. Patient is alert, oriented x 3, equal unlabored respirations, skin warm/dry/pink. 19:00 Reassessment: No changes from previously documented assessment. Patient and/or family ll1 updated on plan of care and expected duration. Pain level reassessed. Patient is alert, oriented x 3, equal unlabored respirations, skin warm/dry/pink. Vital Signs: 15:13 BP 106 / 56; Pulse 50; Resp 18; Temp 97.2; Pulse Ox 96% ; ll1 16:50 BP 173 / 47; Pulse 48; Resp 16; Pulse Ox 100% on R/A; ll1 18:07 BP 201 / 59; Pulse 51; Resp 16; Pulse Ox 97% on R/A; ll1 19:01 BP 180 / 67; Pulse 57; Resp 16; Pulse Ox 97% on R/A; ll1 20:46 BP 193 / 63; Pulse 66; Resp 18; Pulse Ox 96% on R/A; df1 21:07 BP 177 / 61; Pulse 60; Resp 18; Pulse Ox 96% on R/A; df1 ED Course: 14:21 Patient arrived in ED. ds1 14:39 Triage completed. iw 14:44 Arm band placed on Patient placed in an exam room, on a stretcher. ll1 14:50 Inserted saline lock: 22 gauge in right forearm, using aseptic technique. Blood ll1 collected. 14:55 Magdi Retana, ABBIE is Primary Nurse. ll1 14:56 Patient has correct armband on for positive identification. Bed in low position. Call ll1 light in reach. Side rails up X 1. Pulse ox on. NIBP on. 15:12 Homar Beck PA is PHCP. cp 15:12 Radu Woodward MD is Attending Physician. cp 15:49 XRAY Chest (1 view) In Process Unspecified. EDMS 15:58 CT Head C Spine In Process Unspecified. EDMS 16:10 Notified Nurse Practitioner and/or Physician Fingerprint Classifier of a critical lab result(s), ll1 creatinine 7.72. 16:13 Warm blanket given. mh5 16:13 EKG done, by ED staff, reviewed by Homar ROSA. mh5 16:43 XRAY Hand RIGHT 3 View In Process Unspecified. EDMS 18:48 CT Head Angio In Process Unspecified. EDMS 18:49 CT Neck Angio In Process Unspecified. EDMS 19:03 No provider procedures requiring assistance completed. ll1 19:04 COVID-19 SARS RT PCR (Document "Date of Onset" if Symptomatic) Sent. df1 19:39 Maycol Mix is Hospitalizing Provider. cp 21:55 Patient admitted, IV remains in place. df1 Administered Medications: 15:47 Drug: fentaNYL (PF) 25 mcg {Note: rass 0.} Route: IVP; Site: right forearm; ll1 16:30 Follow up: Response: No adverse reaction ll1 16:29 Drug: fentaNYL (PF) 25 mcg {Note: rass 0.} Route: IVP; Site: right forearm; ll1 18:06 Follow up: Response: No adverse reaction ll1 18:04 Drug: Insulin Regular Human 5 units {Co-Signature: ss (Anabell Schneider RN).} Route: IVP; ll1 Site: right forearm; 18:49 Follow up: Response: No adverse reaction ll1 18:04 Drug: D50W 50 ml Route: IVP; Site: right forearm; ll1 18:49 Follow up: Response: No adverse reaction ll1 18:04 Drug: Kayexalate (polystyrene) 30 grams Route: PO; ll1 18:49 Follow up: Response: No adverse reaction ll1 20:06 Follow up: Response: No adverse reaction df1 18:05 Drug: foLIC Acid 1 mg Route: IVPB; Site: right forearm; ll1 18:06 Follow up: Response: No adverse reaction; IV Status: Completed infusion; IV Intake: ll1 0.2ml 19:01 Drug: morphine 2 mg {Note: rass 0.} Route: IVP; Site: right forearm; ll1 20:05 Drug: hydrALAZINE 10 mg Route: IVP; Site: right forearm; df1 20:06 Drug: Albuterol 2.5 mg Route: Inhalation; df1 20:11 Drug: morphine 2 mg Route: IVP; Site: right femoral; df1 20:14 Drug: Aspirin 81 mg Route: PO; df1 20:47 Drug: Labetalol 10 mg Route: IVP; Site: right forearm; df1 Point of Care Testing: Blood Glucose: 14:50 Blood Glucose: 98 mg/dL; iw Ranges: Intake: 18:06 IV: 0ml; Total: 0ml. ll1 Outcome: 19:43 Decision to Hospitalize by Provider. cp 21:55 Admitted to Tele df1 21:55 Condition: stable 21:55 Instructed on the need for admit. 21:55 Patient left the ED. df1 Signatures: Dispatcher [employer] EDMS Naya Diaz ds1 Larisa Walker RN RN iw Homar Beck PA PA cp Martinez, Maria [facility] Magdi Retana RN RN ll1 Cristin Rizo df1 Anabell Schneider RN ss Corrections: (The following items were deleted from the chart) 14:38 14:22 Chief complaint: EMS states: right hand pain and unable to hr specialist anything, started iw today iw
--- NOTE | 2021-01-22 19:44 | EDPHYS ---
Physician Documentation [facility] Name: Alexis Urbano Age: 65 yrs Sex: Male : 1955 Arrival Date: 01/22/2021 Time: 14:21 Bed 5 Private MD: ED Physician Radu Woodward HPI: 01/22 15:20 This 65 yrs old Male presents to ER via Wheelchair with complaints of Weakness cp - right arm. 15:20 The patient or guardian reports pain, weakness. The complaints affect the right hand. cp 15:20 Context: resulted from an unknown cause. The patient presents to the emergency cp department with weakness of the right hand. 15:20 Onset: The symptoms/episode began/occurred today, noticed upon awakening approximately cp 2 hours ago. Context: occurred at home. Associated signs and symptoms: Pertinent positives: right hand pain. 15:20 Patient's baseline: Neuro: alert and fully oriented, Motor: weakness of bilateral legs cp due to chronic back pain, Ambulation: walks with assist only, uses cane, Speech: normal. Current symptoms: weakness and pain of right hand. Historical: - Allergies: 14:38 No Known Allergies; iw - PMHx: 14:38 Arthritis; COPD; Diabetes - NIDDM; ESRD; Dialysis; M/W/F; GERD; High Cholesterol; iw Hypertension; - PSHx: 14:38 Fistula placed on left arm; iw - Immunization history:: Adult Immunizations up to date. - Social history:: Smoking status: Patient reports the use of cigarette tobacco products, smokes one pack cigarettes per day. ROS: 15:25 Constitutional: Negative for body aches, chills, fever, poor PO intake. cp 15:25 Eyes: Negative for injury, pain, redness, and discharge. cp 15:25 ENT: Negative for ear pain, sore throat, difficulty swallowing, difficulty handling secretions. 15:25 Cardiovascular: Negative for chest pain, palpitations. 15:25 Respiratory: Negative for cough, shortness of breath, wheezing. 15:25 Abdomen/GI: Negative for abdominal pain, nausea, vomiting, and diarrhea. 15:25 MS/extremity: Positive for pain, of the right hand, Negative for injury or acute deformity. 15:25 Neuro: Positive for weakness, of the right hand, Negative for altered mental status, headache, syncope. 15:25 All other systems are negative. Exam: 15:30 Constitutional: The patient appears in no acute distress, alert, awake, cp non-diaphoretic, non-toxic, well developed, well nourished. 15:30 Head/Face: Normocephalic, atraumatic. cp 15:30 Eyes: Periorbital structures: appear normal, Conjunctiva: normal, no exudate, no injection, Sclera: no appreciated abnormality, Lids and lashes: appear normal, bilaterally. 15:30 ENT: External ear(s): are unremarkable, Nose: is normal, Mouth: Lips: moist, Oral mucosa: moist, Posterior pharynx: Airway: no evidence of obstruction, patent. 15:30 Neck: ROM/movement: is normal, is supple, without pain, no range of motions limitations. 15:30 Chest/axilla: Inspection: normal. 15:30 Cardiovascular: Rate: bradycardic, Rhythm: regular, Edema: ankle edema, that is mild, JVD: is not appreciated. 15:30 Respiratory: the patient does not display signs of respiratory distress, Respirations: normal, no use of accessory muscles, no retractions, labored breathing, is not present, Breath sounds: are clear throughout, no decreased breath sounds, no stridor, no wheezing. 15:30 Abdomen/GI: Inspection: abdomen appears normal, Palpation: abdomen is soft and non-tender, in all quadrants. 15:30 Back: pain, that is moderate, ROM is painful. 15:30 Musculoskeletal/extremity: Extremities: grossly normal except: noted in the right hand: pain, the right hand decreased sensation. 15:30 Skin: cellulitis, is not appreciated, no rash present. 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 16:16 ECG was reviewed by the Attending Physician. cp Vital Signs: 15:13 BP 106 / 56; Pulse 50; Resp 18; Temp 97.2; Pulse Ox 96% ; ll1 16:50 BP 173 / 47; Pulse 48; Resp 16; Pulse Ox 100% on R/A; ll1 18:07 BP 201 / 59; Pulse 51; Resp 16; Pulse Ox 97% on R/A; ll1 19:01 BP 180 / 67; Pulse 57; Resp 16; Pulse Ox 97% on R/A; ll1 20:46 BP 193 / 63; Pulse 66; Resp 18; Pulse Ox 96% on R/A; df1 21:07 BP 177 / 61; Pulse 60; Resp 18; Pulse Ox 96% on R/A; df1 MDM: 15:25 Patient medically screened. cp 15:30 Differential diagnosis: nerve palsy, CVA, electrolyte abnormality. cp 17:10 Physician consultation: Gilbert Cm MD was contacted at 17:10, regarding consult, cp patient's condition, wants CT angio of head and neck and admit to hospital services with concern for CVA. 17:21 Physician consultation: Skyler Rand MD was called at 17:21, was contacted at 17:21, cp regarding patient's condition, will be able to perform dialysis after administration of IV contrast. 19:45 Data reviewed: vital signs, nurses notes, lab test result(s), EKG, radiologic studies, cp CT scan, plain films. 19:45 Test interpretation: by ED physician or midlevel provider: ECG, plain radiologic cp studies. 01/22 15:00 Order name: Glucose, Ancillary Testing; Complete Time: 15:11 EDMS 01/22 15:26 Order name: Basic Metabolic Panel 01/22 15:26 Order name: CBC with Diff 01/22 15:26 Order name: LFT's 01/22 15:26 Order name: Magnesium; Complete Time: 16:55 01/22 15:26 Order name: NT PRO-BNP; Complete Time: 16:55 01/22 15:26 Order name: CT Head C Spine; Complete Time: 16:39 01/22 15:26 Order name: PT-INR; Complete Time: 16:03 01/22 15:26 Order name: Troponin (emerg Dept Use Only); Complete Time: 16:55 01/22 15:27 Order name: Basic Metabolic Panel; Complete Time: 16:55 EDMS 01/22 16:31 Interpretation: Normal except: NA 132; K 5.2; GLUC 151; BUN 63; CA 8.4; CRE 7.72; GFR 7.cp 01/22 15:27 Order name: CBC with Automated Diff; Complete Time: 16:03 EDMS 01/22 16:31 Interpretation: Normal except: RBC 2.87; HGB 8.9; HCT 27.2; PLT 149; RDW 16.8; LYM% cp 13.5; EOSINOPHIL % 5.0. 01/22 15:27 Order name: Liver (Hepatic) Function; Complete Time: 16:55 EDMS 01/22 16:31 Interpretation: Normal except: AST 13; ALT 7; ALK 210; BILIT 1.1; BILID 0.7; ALB 2.2; cp GLOB 4.4; A/G 0.5. 01/22 18:45 Order name: COVID-19 SARS RT PCR (Document "Date of Onset" if Symptomatic) 01/22 15:26 Order name: XRAY Chest (1 view); Complete Time: 19:28 01/22 16:04 Order name: XRAY Hand RIGHT 3 View; Complete Time: 17:47 cp 01/22 16:07 Order name: MRI - Brain Wo Cont 01/22 16:16 Order name: C Spine Wo Cont EDMS 01/22 17:21 Order name: CT Head Angio; Complete Time: 19:28 cp 01/22 17:21 Order name: CT Neck Angio; Complete Time: 19:28 cp 01/22 15:26 Order name: EKG; Complete Time: 15:27 cp 01/22 15:26 Order name: Cardiac monitoring; Complete Time: 16:06 01/22 15:26 Order name: EKG - Nurse/Tech; Complete Time: 16:06 01/22 15:26 Order name: IV Saline Lock; Complete Time: 15:31 01/22 15:26 Order name: Labs collected and sent; Complete Time: 15:31 01/22 15:26 Order name: O2 Per Protocol; Complete Time: 15:31 01/22 15:26 Order name: O2 Sat Monitoring; Complete Time: 15:31 cp EC:16 Rate is 49 beats/min. Rhythm is regular. ID interval is normal. QRS interval is normal. cp QT interval is prolonged at 552 msec. Interpreted by me. Reviewed by me. Administered Medications: 15:47 Drug: fentaNYL (PF) 25 mcg {Note: rass 0.} Route: IVP; Site: right forearm; ll1 16:30 Follow up: Response: No adverse reaction ll1 16:29 Drug: fentaNYL (PF) 25 mcg {Note: rass 0.} Route: IVP; Site: right forearm; ll1 18:06 Follow up: Response: No adverse reaction ll1 18:04 Drug: Insulin Regular Human 5 units {Co-Signature: ss (Anabell Schneider RN).} Route: IVP; ll1 Site: right forearm; 18:49 Follow up: Response: No adverse reaction ll1 18:04 Drug: D50W 50 ml Route: IVP; Site: right forearm; ll1 18:49 Follow up: Response: No adverse reaction ll1 18:04 Drug: Kayexalate (polystyrene) 30 grams Route: PO; ll1 18:49 Follow up: Response: No adverse reaction ll1 20:06 Follow up: Response: No adverse reaction df1 18:05 Drug: foLIC Acid 1 mg Route: IVPB; Site: right forearm; ll1 18:06 Follow up: Response: No adverse reaction; IV Status: Completed infusion; IV Intake: ll1 0.2ml 19:01 Drug: morphine 2 mg {Note: rass 0.} Route: IVP; Site: right forearm; ll1 20:05 Drug: hydrALAZINE 10 mg Route: IVP; Site: right forearm; df1 20:06 Drug: Albuterol 2.5 mg Route: Inhalation; df1 20:11 Drug: morphine 2 mg Route: IVP; Site: right femoral; df1 20:14 Drug: Aspirin 81 mg Route: PO; df1 20:47 Drug: Labetalol 10 mg Route: IVP; Site: right forearm; df1 Point of Care Testing: Blood Glucose: 14:50 Blood Glucose: 98 mg/dL; iw Ranges: Critical Glucose Levels:Adult <50 mg/dl or >400 mg/dl <40 mg/dl or >180 mg/dl Disposition: 01/23 08:31 Co-signature as Attending Physician, Radu Woodward MD I agree with the assessment and kdr plan of care. 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 EDMS EDMS 20:36 19:43 cp mw
[2021-01-22] MEDS ORDERED: HYDRALAZINE HCL 20 MG/ML VIAL ONE (19:53)
[2021-01-22] MEDS ORDERED: ALBUTEROL 2.5 MG/3 ML NEB SOL ONE (19:53)
[2021-01-22] MEDS ORDERED: ASPIRIN 81 MG CHEWABLE TABLET ONE (20:12)
--- NOTE | 2021-01-22 20:25 | P.HP ---
Certification for Inpatient Patient admitted to: Observation With expected LOS: <2 Midnights Patient will require the following post-hospital care: None Practitioner: I am a practitioner with admitting privileges, knowledge of patient current condition, hospital course, and medical plan of care. Services: Services provided to patient in accordance with Admission requirements found in Title 42 Section 412.3 of the Code of Federal Regulations Patient History Date of Service: 01/22/21 Reason for admission: Right hand paresthesia History of Present Illness: 65-year-old male with history of ESRD on HD, hypertension, diabetes mellitus type 2 presents emergency department for right hand pain/weakness. Patient reports that he went to bed around 1 AM and when he woke up at about noon he was having right hand weakness/numbness/pain. Patient was evaluated in the emergency department labs were significant for hemoglobin 8.9 hematocrit 27.2 platelet 149 sodium 132 potassium 5.2 creatinine 7.72 GFR 7 glucose 151 magnesium 2.5T bili 1.1D bili 1.7 AST 13 ALT 7 BNP greater than 175,000 CT head brain without contrast negative for acute findings x-ray of the right hand with no acute findings, CT head with contrast negative for acute findings neck CT angiogram demonstrates moderate stenosis of the left carotid bulb and proximal left carotid artery. Patient was unable to have MRI due to having a TENS unit. ED provider discussed case with neurology who recommended observational admission, aspirin, folic acid. When I examined the patient he reported that he was unable to move his right hand and flapped around saying he cannot control it, patient was able to move all his fingers. Patient reports pain which appears to be out of proportion to exam with simple touching of the fingernail to assess for capillary refill patient winced in pain. No sign of tenosynovitis or other acute infection white blood cell count normal at this time. Will admit under observation and have patient evaluated by neurology. We will continue patient's home pain medications including [place] 10 mg, patient requesting prescription at time of evaluation for his [place]. Allergies No Known Drug Allergies Allergy (Mild, Verified 02/25/20 07:41) Unknown Home Medications: Albuterol Inhaler [Ventolin Inhaler*] 2 puff IN QID PRN 09/01/20 Clonidine HCl [Catapres*] 0.2 mg PO BID 09/01/20 Clopidogrel Bisulfate [Plavix*] 75 mg PO DAILY 09/01/20 Gabapentin 300 mg PO BID 09/01/20 Hydralazine HCl 50 mg PO TID 09/01/20 Hydrocodone Bit/Acetaminophen [[place] 10-325 Tablet] 1 tab PO QID PRN 09/01/20 Lactulose 10 gm PO DAILY 09/01/20 Ropinirole HCl 0.5 mg PO BEDTIME 09/01/20 Benzonatate [Tessalon Perle*] 100 mg PO TID PRN #30 cap 09/03/20 Epoetin [Retacrit] 4,000 unit IV EVERY HD vial 09/03/20 Heparin [Heparin 1,000 units/mL *] 2,000 unit IV EVERY HD PRN vial 09/03/20 Mometasone/Formoterol [Dulera 200 Mcg/5 Mcg Inhaler] 2 puff IH BID #1 inhaler 09/03/20 Nepro Shake [Nepro*] 237 ml PO BID #60 can 09/03/20 Sevelamer Carbonate [Renvela*] 2,400 mg PO TIDWM #270 tablet 09/03/20 levoFLOXacin [Levaquin*] 250 mg PO DAILY #8 tab 09/03/20 predniSONE [Prednisone*] 20 mg PO BID #6 tab 09/03/20 - Past Medical/Surgical History Diabetic: Yes -: Hepatitis-C (cured) -: HTN -: Hyperlipidemia -: Chronic pain -: Chronic anemia -: End-stage renal disease on hemodialysis (MWF) -: Diabetes mellitus type 2 -: Cirrhosis of liver on the CT scan -: COPD -: Left knee replacement -: ankle heel spur removed -: Leftankle surgery -: toe surgery -: back surgery -: TENS implant -: Left femur Psychosocial/ Personal History: Patient is . He has 2 children - Family History Sister -: Diabetes, Cancer Notes: colon ca Brother -: Hypertension, Diabetes dad -: Hypertension Notes: Colostomy mom -: Hypertension, Cancer Notes: dementia, Breast Cancer - Social History Alcohol use: No CD- Drugs: No Caffeine use: Yes Place of Residence: Home Review of Systems 10-point ROS is otherwise unremarkable Respiratory: Shortness of Breath Musculoskeletal: Hand Pain, As per HPI Neurological: Weakness (Right hand), Numbness (Right hand) Physical Examination - Physical Exam General: Alert, In no apparent distress, Oriented x3 HEENT: Atraumatic, PERRLA, Mucous membr. moist/pink, EOMI, Sclerae nonicteric Neck: Supple, 2+ carotid pulse no bruit, No LAD, Without JVD or thyroid abnormality Respiratory: Clear to auscultation bilaterally, Normal air movement Cardiovascular: Regular rate/rhythm, Normal S1 S2 Gastrointestinal: Normal bowel sounds, No tenderness Musculoskeletal: Tenderness (Patient with severe tenderness to palpation of right hand ) Integumentary: No rashes Neurological: Normal speech, Normal tone, Normal affect, Abnormal strength (Right hand weakness, patient able to move right arm proximal to right wrist and also able to wiggle fingers but reports he is unable to grab with his palm) Lymphatics: No axilla or inguinal lymphadenopathy - Studies Laboratory Data (last 24 hrs) 01/22/21 15:40: PT 13.1 H, INR 1.14 01/22/21 15:40: WBC 8.30, Hgb 8.9 L, Hct 27.2 L, Plt Count 149 L 01/22/21 15:40: Sodium 132 L, Potassium 5.2 H, BUN 63 H, Creatinine 7.72 H*, Glucose 151 H, Magnesium 2.5 H, Total Bilirubin 1.1 H, AST 13 L, ALT 7 L, Alkaline Phosphatase 210 H Assessment and Plan - Plan Assessment: Right hand weakness/paresthesia/pain ESRD on HD MWF with hypervolemia and mild hyperkalemia Diabetes mellitus type 2 Anemia of chronic disease Chronic pain Hypertension Plan: Right hand weakness/paresthesia/pain: Case was discussed with neurology, CT head brain without contrast negative for acute findings CT head angio negative for acute finding CT neck significant for moderate stenosis of the left carotid. Patient unable to have MRI due to TENS unit does not appear to clinically have definitive findings suggesting CVA. Will continue with aspirin, folic acid and neurology consult. ESRD on HD MWF with hypervolemia and mild hyperkalemia: Nephrology consulted for assistance with dialysis, as needed medication for hypertension. Diabetes mellitus type 2: A [facility] Accu-Chek, sliding scale insulin. Anemia of chronic disease: Transfuse to maintain hemoglobin greater than 7 Chronic pain: As needed [place] Hypertension: As needed hydralazine DVT PPX: Heparin Code status: Full code Discharge Plan: Home Plan to discharge in: 24 Hours - Advance Directives Does patient have a Living Will: No Does patient have a Durable POA for Healthcare: No - Code Status/Comfort Care Code Status Assessed: Yes (Full code) Critical Care: No Time Spent Managing Pts Care (In Minutes): 55
[2021-01-22] MEDS ORDERED: LABETALOL 20 MG/4ML SYRINGE IV ONE (20:48)
[2021-01-22] MEDS ORDERED: D50W 25 GM/50 ML SYRINGE IV PRN (21:05)
[2021-01-22] MEDS: INSULIN -REGULAR HUMAN 50 UNIT/0.5 ML ML SQ SCH (21:05)
[2021-01-22] MEDS ORDERED: GLUCAGON 1 MG/VIAL IM PRN (21:05)
[2021-01-22] MEDS ORDERED: ONDANSETRON 4 MG/2 ML VIAL IV PRN (21:05)
[2021-01-22] MEDS ORDERED: ATORVASTATIN 40 MG TAB PO SCH (21:05)
[2021-01-22 22:21] VITALS: BMI 21.3
[2021-01-22] MEDS: HYDROCODONE/APAP 10/325 TAB PO PRN (22:26)
[2021-01-22] MEDS: HEPARIN 5000 UNIT/ML 1 ML VIAL SQ SCH (22:26)
[2021-01-22] MEDS: HYDRALAZINE HCL 20 MG/ML VIAL IV PRN (22:51)
[2021-01-22 23:28] VITALS: O2SAT 96
[2021-01-23] MEDS: HYDROCODONE/APAP 10/325 TAB PO PRN ×3 (03:26→15:35)
[2021-01-23] MEDS ORDERED: TRAMADOL HCL 50 MG TAB PO ONE (03:54)
[2021-01-23] MEDS: HYDRALAZINE HCL 20 MG/ML VIAL IV PRN ×2 (04:04→15:35)
[2021-01-23 04:23] LABS: Absolute Lymphocytes (CBC) 1.2 K/uL (0.7-4.9); Basophils % 1.2 % (0-1.3); Hematocrit 27.6 % (39.6-49.0); Lymphocytes % 15.7 % (15.3-44.8); MPV 8.3 fL (7.6-11.3)
[2021-01-23 04:49] LABS: AST/SGOT 12 U/L (15-37); Albumin 2.1 g/dL (3.4-5.0); Alkaline Phosphatase 201 U/L (45-117); BUN Blood Urea Nitrogen 65 mg/dL (7-18); Bicarbonate 22 mmol/L (21-32); Bilirubin Total 0.9 mg/dL (0.2-1.0); Glucose Level 84 mg/dL (74-106); Magnesium 2.4 mg/dL (1.8-2.4); Potassium 5.1 mmol/L (3.5-5.1); Protein, Total 6.6 g/dL (6.4-8.2); Sodium Level 132 mmol/L (136-145)
[2021-01-23 04:50] LABS: ALT/SGPT < 6 U/L (12-78)
[2021-01-23] MEDS: INSULIN -REGULAR HUMAN 50 UNIT/0.5 ML ML SQ SCH ×3 (07:30→15:36)
[2021-01-23 08:21] VITALS: BP 184/71; TEMP 98.7
[2021-01-23] MEDS ORDERED: FOLIC ACID 1 MG TABLET PO SCH (09:00)
[2021-01-23] MEDS ORDERED: ASPIRIN EC 81 MG TAB PO SCH (09:00)
[2021-01-23] MEDS: HEPARIN 5000 UNIT/ML 1 ML VIAL SQ SCH (09:10)
--- NOTE | 2021-01-23 15:13 | P.DS ---
Admission Date: 01/22/21 Discharge Date: 01/23/21 Disposition: ROUTINE DISCHARGE Discharge Condition: FAIR Reason for Admission: Right hand paresthesia - Problems (1) Right hand weakness Current Visit: Yes Status: Acute (2) DM type 2 (diabetes mellitus, type 2) Current Visit: No Status: Acute (3) Neuropathy Current Visit: No Status: Acute (4) End stage renal disease Current Visit: No Status: Chronic Brief History of Present Illness: 65-year-old male with history of ESRD on HD, hypertension, diabetes mellitus type 2 presents to the emergency department for right hand pain/weakness. Patient reports that he went to bed around 1 AM and when he woke up at about noon he was having right hand weakness/numbness/pain. Patient was evaluated in the emergency department labs were significant for hemoglobin 8.9 hematocrit 27.2 platelet 149 sodium 132 potassium 5.2 creatinine 7.72 GFR 7 glucose 151 magnesium 2.5T bili 1.1D bili 1.7 AST 13 ALT 7 BNP greater than 175,000 CT head brain without contrast negative for acute findings x-ray of the right hand with no acute findings, CT head with contrast negative for acute findings neck CT angiogram demonstrates moderate stenosis of the left carotid bulb and proximal left carotid artery. Patient was unable to have MRI due to having a TENS unit. ED provider discussed case with neurology who recommended observational admission, aspirin, folic acid. When I examined the patient he reported that he was unable to move his right hand and flapped around saying he cannot control it, patient was able to move all his fingers. Patient reports pain which appears to be out of proportion to exam with simple touching of the fingernail to assess for capillary refill patient winced in pain. No sign of tenosynovitis or other acute infection white blood cell count normal at this time. Patient placed under observation for further evaluation. Hospital Course: Patient placed under observation on the medical floor. CT cervical spine unremarkable. CT head negative for acute CVA. Patient noted to have mild weakness in extension of the hand. Case discussed with neurology and radial nerve compression in the radial groove leading to wrist drop is suspected. This was explained to the patient twice today and gave him ample time to ask questions. He had no further questions and was only interested in discharge. Patient underwent hemodialysis. Dr. Cm recommended follow-up with him in the office. Vital Signs/Physical Exam: Temp Pulse Resp BP Pulse Ox 98.7 F 64 18 184/71 H 95 01/23/21 08:00 01/23/21 08:00 01/23/21 08:00 01/23/21 08:00 01/23/21 08:00 General: Alert, In no apparent distress, Oriented x3 HEENT: PERRLA, Mucous membr. moist/pink, EOMI, Sclerae nonicteric Neck: Supple, JVD not distended Respiratory: Clear to auscultation bilaterally, Normal air movement Cardiovascular: No edema, Regular rate/rhythm, Normal S1 S2 Gastrointestinal: Normal bowel sounds, Soft and benign, Non-distended, No tenderness Musculoskeletal: No swelling, Other (Left with sutured AV fistula/graft) Integumentary: Other (Bruises on the left arm.) Neurological: Normal strength at 5/5 x4 extr, Cranial nerves 3-12 intact Laboratory Data at Discharge: WBC 7.80 K/uL (4.3-10.9) 01/23/21 04:11 Hgb 9.1 g/dL (13.6-17.9) L 01/23/21 04:11 Hct 27.6 % (39.6-49.0) L 01/23/21 04:11 Plt Count 158 K/uL (152-406) 01/23/21 04:11 PT 13.1 SECONDS (9.5-12.5) H 01/22/21 15:40 INR 1.14 01/22/21 15:40 Sodium 132 mmol/L (136-145) L 01/23/21 04:11 Potassium 5.1 mmol/L (3.5-5.1) 01/23/21 04:11 BUN 65 mg/dL (7-18) H 01/23/21 04:11 Creatinine 8.27 mg/dL (0.55-1.3) H* 01/23/21 04:11 Glucose 84 mg/dL (74-106) 01/23/21 04:11 Magnesium 2.4 mg/dL (1.8-2.4) 01/23/21 04:11 Total Bilirubin 0.9 mg/dL (0.2-1.0) 01/23/21 04:11 AST 12 U/L (15-37) L 01/23/21 04:11 ALT < 6 U/L (12-78) L 01/23/21 04:11 Alkaline Phosphatase 201 U/L (45-117) H 01/23/21 04:11 Home Medications: Folic Acid 1 mg PO DAILY #30 tablet 01/23/21 Heparin [Heparin 1,000 units/mL *] 4,000 unit IV EVERY HD PRN vial 01/23/21 New Medications: Folic Acid 1 mg PO DAILY #30 tablet Diet: Renal Activity: Fall precautions Followup: Gilbert Cm MD [ASSOCIATE-ACTIVE - CAN ADMIT] - 1-2 Weeks (Call to schedule appointment. ) Rajendra Montoya MD [Primary Care Provider] - 1-2 Weeks (Call to schedule appointment)
--- NOTE | 2021-01-23 23:14 | CON ---
Date of Consultation: 01/23/2021 Chief Complaint: End-stage renal disease, on hemodialysis 3 times per week. History Of Present Illness: The patient has a history of end-stage renal disease due to diabetes mellitus and hypertension. He presented to Emergency Department for right hand pain and weakness. The patient was evaluated in the emergency room and was found to have hemoglobin of 8.9, hematocrit 27.2, platelet count 149, sodium 142, potassium 5.2, creatinine 7.72, and magnesium 2.5. BNP was greater than 175,000. CT scan of the brain without contrast did not show any acute finding. CT scan with contrast was negative for acute findings. Next, CT angiogram demonstrated moderate stenosis of the left carotid bulb and proximal left carotid. The patient was seen by ER physician and case was discussed by ER physician with neurologist. The patient was admitted to the hospital and Nephrology consultation was requested for dialysis. Review of Systems: General: The patient denies fever or chills. Eyes: Denies vision changes. Ears, Nose, Mouth, and Throat: Denies sore throat or earache. Respiratory: Denies PND or orthopnea. Cardiovascular: Denies chest pain or palpitation. GI: Denies nausea or vomiting. MUSCULOSKELETAL: Denies any gout. All other systems reviewed and all are negative. Past Medical History: Hepatitis C treated in remission; hypertension; hyperlipidemia; chronic pain; chronic anemia; end-stage renal disease, on dialysis 3 times a week; diabetes mellitus type 2 with renal manifestation; cirrhosis of the liver; COPD; left knee replacement; toe surgery; back surgery. Family History: Sister: Diabetes and colon cancer. Brother: Hypertension and diabetes. Father: Hypertension and colostomy. Mother: Hypertension, breast cancer, and dementia. Social History: Denies tobacco, alcohol, or illicit drugs. Physical Examination: General: The patient is awake, alert. Follows commands. Eyes: Anicteric sclerae. EOMI. Ears, Nose, Mouth, and Throat: Oral mucosa moist. No pallor. Neck: Supple. No bruits. Lungs: Diminished breath sounds at bases. Heart: S1, S2. Abdomen: Soft and benign. Extremities: Slight edema. Impression And Plan: 1. End-stage renal disease. Dialysis will be done today. The patient has mild hyperkalemia and he will have dialysis to treat hyperkalemia, 2K dialyzate will be used for dialysis. 2. Diabetes mellitus, continue insulin. 3. Chronic pain. The patient is on [place]. 4. Hypertension. The patient will continue blood pressure medication and medication for pain control. 5. Right hand weakness. Neurology workup and further recommendations from primary team and neurologist. CYNDI/DHRUV Voice ID: [id number] Report ID: [id number] DIPTI
--- NOTE | 2021-01-27 08:18 | EKG ---
Test Date: 2021-01-22 Test Time: 16:11:50 Truck Rental Manager: CHARY MEASUREMENT RESULTS: Intervals: Rate: 49 AL: 158 QRSD: 92 QT: 552 QTc: 498 [place]: P: 67 AL: 158 QRS: -9 T: 228 INTERPRETIVE STATEMENTS: Marked sinus bradycardia Left ventricular hypertrophy with repolarization abnormality Prolonged QT Abnormal ECG Compared to ECG 11/25/2020 12:16:49 Left ventricular hypertrophy now present Early repolarization now present Prolonged QT interval now present Incomplete right bundle-branch block no longer present Left anterior fascicular block no longer present Myocardial infarct finding no longer present Electronically Signed On 01-27-21 08:05:03 RECORD CHANGER TESTER by Jose Francisco Mckeon
== END 2021-01-23 19:00 | disposition home or self-care (01) ==
LOC: ER 14:17 → 2ND 20:46
PROVIDERS: ADMIT Internal Medicine; ATTEND Internal Medicine
PROC: 5A1D70Z Performance of Urinary Filtration, Intermittent, Less than 6 Hours Per Day (ICD-10-PCS; principal; 2021-01-23)
DX: R53.1 Weakness (principal); E11.40 Type 2 diabetes mellitus with diabetic neuropathy, unspecified; I12.0 Hypertensive chronic kidney disease with stage 5 chronic kidney disease or end stage renal disease; E11.22 Type 2 diabetes mellitus with diabetic chronic kidney disease; N18.6 End stage renal disease; Z99.2 Dependence on renal dialysis; E87.5 Hyperkalemia; D63.8 Anemia in other chronic diseases classified elsewhere; G89.29 Other chronic pain
CPT/HCPCS: 93005; 85025 ×2; 80048; 36415; 83735 ×2; 85610; 82947 ×4; 80076; 84443; 84484; 84439; 80053; 83880; 70450; 72125; 70496; 70498; 71045; 73130; 90935 ×2; 99285; U0003; Q9967; J0360 ×4; J1644 ×3; J3010; J2270 ×2; G0378 ×3

== ENCOUNTER 2021-02-11 21:20 | Inpatient (IN) | payer OTHER ==
--- OUTSIDE RECORDS SUMMARY | 2021-02-11 21:25 | XMS REPORT | Continuity of Care Document ---
:1955 Author Organization [facility] t Address [address] [place] [address] Care Team Providers Name Role Phone Jesus DO Natacha Primary Care Physician Fran CABALLERO Attending Clinician Brian Vega MD Attending Clinician Briseyda-Mbayo_A_AH Attending Clinician Unavailable Shayna CABALLERO Attending Clinician Chiara Headley MD Attending Clinician Chetan Donohue MD Attending Clinician Trae BERNAL Attending Clinician Radiology Attending Clinician Unavailable Pob, Lab Main Attending Clinician Unavailable SALENA RUSSELL Attending Clinician Unavailable SWETHA PISANO Attending Clinician Unavailable LEANA KHALIL Attending Clinician Unavailable INGRIS DANIELSON Attending Clinician Unavailable ESMER KERN Attending Clinician Unavailable Briseyda-Mbayo_A_AH Admitting Clinician Unavailable AIMEE Admitting Clinician Unavailable THEODORE WEIR Admitting Clinician Unavailable Payers Payer Name Policy Type Policy Number Effective Date Expiration Date S alton [facility] [id number] 2021 (MEDICARE 00:00:00 REPLACEMENT HMO) [employer] [place] - [id number] 2019 [place] (MEDICARE 00:00:00 REPLACEMENT/ADVANT[place] GE - HMO) Problems Condition Condition Condition Status Onset Resolution Last Treating Co mments Source Name Details Category Date Date Treatment Clinician Date Penis pain Penis pain Disease Active U nivers 9-25 ity of 00:00: 00 Medical Branch Tobacco Tobacco Disease Active Univers use use 925 ity of 00:00: Medical Branch Murmur Murmur Disease Active Univers 9-25 ity of 00:00: [place] [facility] PAD PAD Disease Active Overview: Univer s (periphera (periphera 11-28 Formattin ity of l artery l artery 00:00: g of this Sebastián as disease) disease) 00 note Medica l might be Branch different from the original. 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 Managemen t per his PCP. Chronic Chronic Disease Active Last [facility] hepatitis hepatitis 07-22 Assessguillaume hernandez - C virus C virus [...] Allergy 03-31 in mouth, [facility]: [facility] Medical 00 okay with Center shrimp/cr awfish CRAB Allergy Active Itching [facility]- [facility] - 00:[facility]: Medical 00 Center Family History Family Member Diagnosis Comments Start Date Stop Date Source Natural [facility] Natural mother Dementia [facility] Social History Social Habit Start Date Stop Date Quantity Comments Source History of tobacco Cigarette [facility]oker [facility] Exposure to Not sure University of SARS-CoV-2 (event) [facility] Tobacco use and 2020-11-28 2020-11-28 Never used Universit y of exposure 00:00:00 00:00:00 [facility] Cigarettes smoked 2019-12-10 2019-12-[address] current [facility] - [facility] Alcohol intake 2019-12-10 2019-12-10 Ex-drinker [facility] 00:[facility] (finding[facility] Alcohol Comment 2015-07-23 2015-07-[address] [facility] - 00:00:00 00:00:00 2005; [facility] er drinker Tobacco Comment 2015-03-31 2015-03-31 [address] [facility] - 00:00:00 00:00:00 [facility] Sex Ass[birth year] At [birth year] Universit y of 00:00:00 00:00:00 [facility] Smoking Status Start Date Stop Date Source Light Tobacco Smoker [facility] Current every day 2020-11-28 00:00:00 [facility] smoker Medical Branch Former smoker 2018-06-05 00:00:00 2018-06-05 00:00:[address] [facility] Medications Ordered Filled Start Stop Current Ordering Indication Dosage Frequency Signature Comments Components Source Medication Medication Date Date Medication? Clinician (SIG) Name Name clopidogreL 2020-03 Yes 75mg Take 75 mg Univers 75 mg 0-06 by mouth ity of tablet 18:59: daily. [place] [address] Medical Branch gabapentin 2020-03 Yes 100mg Take 100 Un mariella 100 mg 0-06 mg by ity of capsule 18:59: mouth 3 [place] 29 (three) Medical times Branch daily. HYDROcodone 2020-03 Yes 1{tbl} Take 1 Un mariella -acetaminop 0-06 tablet by ity of hen 10-325 18:59: mouth [place] mg tablet 29 every 6 Medical (six) Branch hours as needed for Pain (scale 4-6). zolpidem 10 2020-03 Yes 10mg Take 10 mg Univers mg tablet 0-06 by mouth ity of 18:59: at bedtime [place] 29 as needed Medical for Branch Insomnia. tiZANidine 2020-03 Yes 4mg Take 4 mg Un mariella 4 mg tablet 0-06 by mouth ity of 18:59: every 4 [place] 29 (four) Medical hours as Branch needed for Muscle Spasms. cloNIDine 2020-03 Yes [id number] .3mg Take 1 U nivers 0.3 mg 0-06 tablet by ity of tablet 00:00: mouth 2 [place] 00 (two) Medical times Branch daily. bacitracin 2020-03 Yes [id number] Apply to Univers 500 0-06 affected ity of unit/gram 00:00: area(s) 2 Sebastián as ointment 00 (two) Medical times Branch daily. lactulose 2020-03 Yes [id number] 15mL Take 15 mL Univers 10 gram/15 0-06 by mouth 3 ity of mL solution 00:00: (three) Sebastián as 00 times Medical daily. Branch lisinopriL 2020-03 Yes [id number] 10mg Take 1 Univers 10 mg 0-06 tablet by ity of tablet 00:00: mouth [place] 00 daily. Medical Branch sevelamer 2020-03 Yes [id number] 800mg Take 1 Univers 800 mg 0-06 [...] by mouth l daily for 30 days. folic 2019-03 Yes Take by Methodi acid/vit [...] needed for l sleep. HYDROcodone 2019-03 Yes [id number] 1{tbl} Q6H Take 1 M ethodi -acetaminop [...] times a day. gabapentin 2019-03 Yes 100mg Q.[id number] Take 100 Methodi (NEURONTIN) 0-06 [id number] mg by s t 100 mg 21:07: 3D mouth 3 Hospita capsule 01 (three) l times a day. calcium 2019- Yes Take by Methodi acetate 0-[address] (PHOSLO 21:07: Hospita ORAL) 01 l pravastatin 2019-03 Yes 40mg QD Take 40 mg [facility]i (PRAVACHOL) 0-[address] 40 mg 21:07: daily. Hospita tablet 01 l tamsulosin 2019-03 No .4mg QD Take 0.4 Me thodi (FLOMAX) 0-03 15- mg by st 0.4 mg 17:44: 00:00 mouth Hospita capsule 24 :00 daily. l finasteride 2019-03 5mg QD Take 5 mg Methodi (PROSCAR) 5 12-[address] mg tablet 17:44: 00:00 daily. Hospi ta 21 :00 l tiZANidine 2019-03 2mg Q8H Take 2 mg M ethodi (ZANAFLEX) 12-[address] 2 MG tablet 17:43: 00:00 every 8 Ho spita 54 :00 (eight) l hours as needed for muscle spasms. aspirin 81 Yes 81mg QD Take [address] MG EC 4-02 by mouth [facility] - tablet 10:20: daily. [address] aspirin 81 Yes 81mg QD Take [address] MG EC 4-02 by mouth [facility] - tablet 10:20: daily. [address] aspirin 81 Yes 81mg QD Take [address] MG EC 4-02 by mouth [facility] - tablet 10:20: daily. [address] amLODIPine Yes 10mg Take [address] (NORVASC) 4-02 by mouth. [facility] - 10 MG 10:19: Medical tablet [address] [place] amLODIPine Yes 10mg Take [address] (NORVASC) 4-02 by mouth. [facility] - 10 MG 10:19: Medical tablet 56 [place] amLODIPine Yes 10mg Take [address] (NORVASC) 4-02 by mouth. [facility] - 10 MG 10:19: Medical tablet 56 [place] cloNIDine Yes .2mg Q.5D Take 0.2 CHI [...] Medic al 27 times Center daily. gabapentin 2019- Yes 100mg Q.5D Take [address] (NEURONTIN) 4-02 mg by [facility] - 300 MG 10:18: mouth 2 Medical capsule 27 (two) Center times daily . clopidogrel 2018- Yes 75mg QD Take 75 mg CHI [...] Med ical 00 BEDTIME Center NEEDED zolpidem Yes TAKE [address] (AMBIEN) 10 2-21 TABLET [facility] - mg tablet 00:00: ORALLY AT Med ical 00 BEDTIME Center NEEDED zolpidem Yes TAKE [address] (AMBIEN) 10 2-21 TABLET [facility] - mg tablet 00:00: ORALLY AT Med ical 00 BEDTIME Center NEEDED atorvastati Yes 20mg Take [address] n (LIPITOR) 4-26 by mouth. Susie es - 20 MG 00:00: Medical tablet 00 [place] atorvastati Yes 20mg Take [address] n (LIPITOR) 4-26 by mouth. Susie es - 20 MG 00:00: Medical tablet 00 [place] atorvastati 2018-0 Yes 20mg Take [address] n (LIPITOR) 4-26 by mouth. Susie es - 20 MG 00:00: Medical tablet 00 Center hydrALAZINE 2017-0 Yes 50mg Q.[id number] Take [address] (APRESOLINE 2-06 [id number] tablets [facility] - ) 25 MG 00:00: 3D (50 mg Medical tablet 00 total) by Center mouth 3 (three) times daily. pantoprazol 2017-0 Yes 40mg QD Take [address] e 2-06 tablet (40 [facility] - (PROTONIX) 00:00: mg total) Me dical 40 MG 00 by mouth Center tablet daily. hydrALAZINE 2017-0 Yes 50mg Q.[id number] Take [address] (APRESOLINE 2-06 [id number] tablets [facility] - ) 25 MG 00:00: 3D (50 mg Medical tablet 00 total) by Center mouth 3 (three) times daily. pantoprazol 2017-0 Yes 40mg QD Take [address] e 2-06 tablet (40 [facility] - (PROTONIX) 00:00: mg total) Me dical 40 MG 00 by mouth Center tablet daily. hydrALAZINE 2017-0 Yes 50mg Q.[id number] Take [address] (APRESOLINE 2-06 [id number] tablets [facility] - ) 25 MG 00:00: 3D (50 mg Medical tablet 00 total) by Center mouth 3 (three) times daily. pantoprazol 2017-0 Yes 40mg QD Take [address] e 2-06 tablet (40 [facility] - (PROTONIX) 00:00: mg total) Me dical 40 MG 00 by mouth Center tablet daily. carvedilol carvedilol No 1 BID carvedilol [facility] 6.25 mg 6.25 mg 6.25 mg Family tablet Take tablet Take tablet Practic 1 tablet 1 tablet Take 1 e twice a day twice a day tablet by oral by oral twice a route. route. day by oral route. clonidine clonidine No 1 BID clonidine [facility] HCl 0.2 mg HCl 0.2 mg HCl 0.2 mg Family tablet Take tablet Take tablet Practic 1 tablet 1 tablet Take 1 e twice a day twice a day tablet by oral by oral twice a route. route. day by oral route. gabapentin gabapentin No 1capsul TID gabapentin [facility] 100 mg 100 mg e(s) 100 mg Family capsule capsule capsule Practi c Take 1 Take 1 Take 1 e capsule 3 capsule 3 capsule 3 times a day times a day times a by oral by oral day by route. route. oral route. lactulose lactulose No 15mL Q1D lactulose [facility] 10 gram/15 10 gram/15 10 gram/15 Family mL (15 mL) mL (15 mL) mL (15 mL) Practic oral oral oral e solution solution solution Take 15 mL Take 15 mL Take 15 mL every day every day every day by oral by oral by oral route as route as route as directed. directed. directed. [place] 10 [place] 10 No 1 Q4H [place] 10 Milo tiffanie mg-325 mg mg-325 mg mg-325 mg Family tablet Take tablet Take tablet Practic 1 tablet 1 tablet Take 1 e every 4 every 4 tablet hours by hours by every 4 oral route oral route hours by as needed. as needed. oral route as needed. pravastatin pravastatin No 1 Q1D pravastati [facility] 40 mg 40 mg n 40 mg [...] 30 Sensipar 30 No 1 Q1D Sensipar [facility] mg tablet mg tablet 30 mg Fami ly Take 1 Take 1 tablet Practic tablet tablet Take 1 e every day every day tablet by oral by oral every day route. route. by oral route. sildenafil sildenafil No 1 Q1D sildenafil [facility] 100 mg 100 mg 100 mg Family tablet Take tablet Take tablet Practic 1 tablet 1 tablet Take 1 e every day every day tablet by oral by oral every day route. route. by oral route. tizanidine tizanidine No 1 Q6H tizanidine [facility] 4 mg tablet 4 mg tablet 4 [...] route. times a day by oral route. Immunizations Ordered Filled Immunization Date Status Comments [facility] e Immunization Name Name [facility] () 2020-04-01 Completed University of 00:00:00 [facility] Influenza Virus 2019-12-20 Completed Universit y of Vaccine 00:00:00 [facility] PPD (TB) 2019-04-03 Completed University of 00:00:00 [facility] pneumococcal pneumococcal 2019-01-04 Completed [facility] alexia conjugate PCV 13 conjugate PCV 13 00:00:00 Pr actice influenza, influenza, 2019-01-04 Completed [facility] injectable, injectable, 00:00:00 Practice quadrivalent quadrivalent Influenza Virus 2018-12-26 Completed Universit y of Vaccine 00:00:00 [facility] PPD (TB) 2018-07-20 Completed University of 00:00:00 [facility] PPD (TB) 2018-07-04 Completed University of 00:00:00 [facility] HEP B, Adult Dosage 2018-04-18 Completed Unive rsity of 00:00:00 [facility] HEP B, Adult Dosage 2017-12-20 Completed Unive rsity of 00:00:00 [facility] HEP B, Adult Dosage 2017-11-20 Completed Unive rsity of 00:00:00 [facility] Influenza Virus 2017-11-15 Completed Universit y of Vaccine 00:00:00 [facility] HEP B, Adult Dosage 2017-10-20 Completed Unive rsity of 00:00:00 [facility] PPD (TB) 2016-08-17 Completed University of 00:00:00 [facility] PPD (TB) 2016-04-03 Completed University of 00:00:00 [facility] PPD Test 2016-04-[address] [facility] - 00:[facility]:00 [facility] PPD Test 2016-04-[address] [facility] - 00:00:00 [facility] PPD Test 2016-04-[address] [facility] - 00:00:00 [facility] Influenza Virus 2015-12-02 Completed Universit y of Vaccine 00:00:00 [facility] Vital Signs Vital Name Observation Time Observation Value Comments Source Systolic blood 2021-01-12 199 mm[Hg] University of pressure 14:23:00 [facility] Diastolic blood 2021-01-12 74 mm[Hg] University o f pressure 14:23:00 [facility] Heart rate 2021-01-12 60 /min University 14:23:00 [facility] Body temperature 2021-01-12 36.61 Idalia University 14:23:00 [facility] Body height 2021-01-12 167.6 cm University 14:23:00 [facility] Body weight 2021-01-12 64.003 kg University 14:23:00 [facility] BMI 2021-01-12 22.77 kg/m2 University 14:23:00 [facility] Height 2019-09-03 66 [in_i] [facility] Height 2019-07-23 66 [in_i] [facility] 00:[facility] BMI (Body Mass 2019-07-23 25.8 kg/m2 [facility] Index) 00:00:00 Practice Body Weight 2019-07-23 160 [lb_av] [facility] 00:[facility] Practice Systolic blood 2019-12-10 206 mm[Hg] [employer] Jisha made [facility] 19:40[facility]00 [facility] Diastolic blood 2019-12-10 88 mm[Hg] [employer] Jisha made [facility] pressure 19:40:00 [facility] Heart rate 2019-12-10 69 /min [facility] 19:40:00 Hospital Body temperature 2019-12-10 37.11 [place]alia [facility] 17:15:24 Hospital Respiratory rate 2019-12-10 16 /min [facility] 17:15:24 Hospital Oxygen saturation 2019-12-10 96 /min [facility] in Arterial blood 17:15:24 Hospital by Pulse oximetry Body weight 2019-12-10 72.848 kg [facility] 11:00:00 Hospital BMI 2019-12-10 25.92 kg/m2 [facility] 11:00:00 [facility] Body height 2019-12-09 167.6 cm [facility] 21:00:00 Hospital Procedures Procedure Date / Time Performing Clinician Source Performed ECG 12-LEAD 2019-12-10 19:01:00 [facility] TROPONIN 2019-12-10 17:50:00 [facility] BASIC METABOLIC PANEL 2019-12-10 10:33:00 [facility] [place] ESTIMATED GFR 2019-12-10 10:33:[address] [facility] HEMODIALYSIS 2019-12-10 01:17:14 Skyler Rand spital [place] < 1 HOUR 2019-12-10 00:26:47 Martita Corral spital HEPATITIS B SURFACE 2019-12-10 00:13:00 [facility] ANTIGEN HEPATITIS B SURFACE 2019-12-10 00:13:00 [facility] ANTIBODY HEMODIALYSIS 2019-12-09 21:51:41 Skyler Rand Ho spital HEMODIALYSIS 2019-12-09 21:09:37 Skyler Rand Ho spital POC GLUCOSE 2019-12-09 21:02:00 Martita Corral spital [place] AN ELECTIVE 2019-12-09 18:56:58 Antonieta Lawrence [facility] SUPRAGLOTTIC AIRWAY AORTOGRAPHY, POSSIBLE 2019-12-09 18:47:00 Martita Corral [facility] ANGIOPLASTY POC GLUCOSE 2019-12-09 17:42:00 Martita Corral spital POC PANEL 2019-12-09 15:37:00 Martita Corral spital COMPREHENSIVE METABOLIC 2019-12-09 15:32:[address] [facility] PANEL TYPE AND SCREEN 2019-12-09 15:32:00 Binu [facility] Behzad Christine ESTIMATED GFR 2019-12-09 15:32:00 Shayna, Martita Pacheco spital XR CHEST 2 VW 2019-12-05 18:38:59 Shayna, Martita Schmid Ho spital ECG PRE/POST OP 2019-12-05 18:07:15 Shayna, Liliana Binu Pacheco spital PROTHROMBIN TIME WITH INR 2019-12-05 17:45:00 [facility] PARTIAL THROMBOPLASTIN 2019-12-05 17:45:00 Shayna [facility] TIME (PTT) COVID-19 QUALITATIVE 2019-12-05 17:37:00 [facility] RT-PCR HC COMPLETE BLD COUNT 2019-12-05 17:36:00 [facility] W/AUTO DIFF HEMOGLOBIN A1C 2019-12-05 17:36:00 Binu [facility] Behzad Christine Plan of Care Planned Activity [...] s - Test 00:00:00 (procedure) [code = [facility] 11209824] Future Scheduled 2019-03-[address] [facility] - Test 00:00:00 (procedure) [code = [facility] 35674061] Future Scheduled 2019-03-[address] [facility] - Test 00:00:00 (procedure) [code = [facility] 27710077] Future Scheduled 2016-09-[address] [facility] - Test 00:00:00 measurement Medical Center (procedure) [code = 39532850] Future Scheduled 2016-09-[address] [facility] - Test 00:00:00 measurement Medical Center (procedure) [code = 61876013] Future Scheduled 2016-09-[address] [facility] - Test 00:00:00 measurement Medical Center (procedure) [code = 64309375] Future Scheduled 2016-06-[address] [facility] - Test 00:00:00 malignant neoplasm of Medica l Center colon (procedure) [code = 080358889] Future Scheduled 2016-06-[address] [facility] - Test 00:00:00 malignant neoplasm of Medica l Center colon (procedure) [code = 767869267] Future Scheduled 2016-06-[address] [facility] - Test 00:00:00 malignant neoplasm of Medica l Center colon (procedure) [code = 962358108] Future Scheduled 2015-03-[address] [...] 00:00:00 examination Medical Center (regime/therapy) [code = 893203034] Future Scheduled 1967-08-29 Urine screening [facility] - Test 00:00:00 protein (procedure) Medical Center [code = 554726012] Future Scheduled 1967-08-29 DIABETIC EYE EXAM [facility] - Test 00:00:00 [code = DIABETIC EYE Medical Center EXAM] Future Scheduled 1967-08-[address] [facility] - Test 00:00:00 examination Medical Center (regime/therapy) [code = 521608570] Future Scheduled 1967-08-29 Urine screening [facility] - Test 00:00:00 protein (procedure) Medical Center [code = 489683542] Future Scheduled 1967-08-29 DIABETIC EYE EXAM [facility] - Test 00:00:00 [code = DIABETIC EYE Medical Center EXAM] Future Scheduled 1967-08-[address] [facility] - Test 00:00:00 examination Medical Center (regime/therapy) [code = 516212106] Future Scheduled 1967-08-29 Urine screening [facility] - Test 00:00:00 protein (procedure) Medical Center [code = 710658833] Future Scheduled 1961-08-[address] [...] EYE EXAM] Future Scheduled DIABETIC FOOT EXAM [facility] Test [code = DIABETIC FOOT EXAM] Future Scheduled COVID-19 VACCINE (1) Met [facility] Hospital Test [code = COVID-19 VACCINE (1)] Future Scheduled [facility] [code = COLONOSCOPY SCREENING] Future Scheduled SHINGLES VACCINES (#1) [facility] Test [code = SHINGLES VACCINES (#1)] Future Scheduled INFLUENZA VACCINE [facility] Test [code = INFLUENZA VACCINE] Encounters Start End Encounter Admission Attending Care Care Encounter Source Date/Time Date/Time Type Type Clinicians Facility Department ID 2021-01-12 2021-01-12 [facility] [id number] [facility] 08:07:31 08:42:43 Visit [facility] 350.1.13.10 i ty of CLINICS 4.2.7.2.686 Deon almonte [id number] [facility] 204 Branch 2021-01-10 2021-01-10 Outpatient DMG DMG [id number] [facility] 08:00:00 08:00:00 1107 Medica l Group 2020-05-21 2020-05-21 Telephone Gary, 1.2.840.1 [id number] Methodi 00:00:00 00:00:[address] Brian 3.430.2.7 Hospi ta .3.688101 l .8 2020-04-28 2020-04-28 [facility] [address] [place] [address] 04:42:00 04:42:00 _A_AH [id number] Family Practic e 2020-04-28 2020-04-28 Outpatient [facility] [address] [place] [address] 04:42:00 04:42:00 _A_AH 68928 Family Practic e 2019-12-09 2019-12-10 [facility] 1.2.840.1 [id number] Methodi 09:56:00 16:06:00 Encounter Natalie Headley [id number] 3.430.2.7 Hospit a .3.379130 l .8 2019-12-09 2019-12-09 Anesthesia Sameer Donohue 1.2.840.1 [id number] Methodi 13:47:00 16:02:00 Event TraeCynthiaElvie 40284.1.[address] 3.430.2.7 Hospit a .3.328452 l .8 2019-12-09 2019-12-09 Surgery [facility], 1.2.840.1 [id number] Methodi 13:10:00 14:55:00 [facility] [address]703[address] 3.430.2.7 Hospit a .3.920803 l .8 2019-12-05 2019-12-05 Hospital Shayna, 1.2.840.1 [id number] Methodi 13:17:37 23:59:00 Encounter Uttam 20225.1.[address] 3.430.2.7 Hospit a .3.583638 l .8 2019-12-05 2019-12-05 Pre-Admiss Shayna, 1.2.840.1 [id number] Methodi 12:02:21 13:02:21 ion Uttam 96814.1.[address] Testing 3.430.2.7 Hospit a .3.559580 l .8 2019-12-05 2019-12-05 Travel 1.2.840.1 [id number] [id number] Methodi 00:00:00 00:00:[address] 3.430.2.7 0.2.7.3.698 Ho spita .3.552349 084.8 l .8 2019-11-29 2019-11-29 Travel 1.2.840.1 [id number] [id number] Methodi 00:00:00 00:00:[address] 3.430.2.7 0.2.7.3.698 Ho spita .3.284171 084.8 l .8 2019-10-21 2019-10-21 Outpatient Briseyda-Mbayo P [facility] [address] 07:34:00 07:34:00 _A_AH 92037 Family Practic e 2019-10-16 2019-10-16 Outpatient Briseyda-Mbayo [facility] P [id number] 06:55:00 06:55:00 _A_AH 73592 Family Practic e 2019-10-10 2019-10-10 [place] [id number] 12:34:44 23:59:00 Encounter [place] 350.1.13.10 [place] 4.2.7.2.686 [place] [id number] 2019-10-10 2019-10-10 Contract Admin Celsa, Rodney [place] 1.2.840.114 [id number] 12:38:05 12:53:05 Visit Lab Main [place] 350.1.13.10 [place] 4.2.7.2.686 [place] [id number] [address] 2019-10-09 2019-10-09 Outpatient Briseyda-Mbayo VFP VFP [id number] [facility] 07:13:00 07:13:00 _A_AH 07597 Family Practic e 2019-09-23 2019-09-23 Outpatient Briseyda-Mbayo [facility]FP [facility] [id number] [facility] 04:30:00 04:30:00 _A_AH 10849 Family Practic e 2019-09-17 2019-09-17 Outpatient Briseyda-Mbayo VFP VFP [id number] [facility] 05:41:00 05:41:00 _A_AH 71050 Family Practic e 2019-09-11 2019-09-11 Outpatient Briseyda-Mbayo VFP VFP [id number] [facility] 10:02:00 10:02:00 _A_AH 21827 Family Practic e 2019-09-10 2019-09-10 Outpatient Briseyda-Mbayo VFP VFP [id number] [facility] 08:40:00 08:40:00 _A_AH 72052 Family Practic e 2019-09-03 2019-09-03 Veronica VFP [place] - [id number] V illage 00:00:00 00:00:00 BriseydaJoe [facility] Fam traci elkins MILL HOUSE SUPERVISOR: Medical - Practi c [address] [email or web address] [facility], [address] [address], [place] [address] , Ph. 2019-08-02 2019-08-02 Outpatient Briseyda-Mbayo VFP VFP [id number] [facility] 04:51:00 04:51:00 _A_AH [id number] Family Practic e 2019-07-26 2019-07-26 Outpatient Briseyda-Mbayo VFP VFP [id number] [facility] 01:22:00 01:22:00 _A_AH [id number] Family Practic e 2019-07-23 2019-07-23 Veronica VFP [place] - [id number] V illage 00:00:00 00:00:00 [facility] traci elkins, MILL HOUSE SUPERVISOR: Medical - Pracjonathan c [address] [email or web address] e [facility], [address], [place] [address] , Ph. 2019-04-24 2019-04-24 Outpatient Atilio VFP VFP [id number] [facility] 07:17:00 07:17:00 _A_ [id number] Family Practic e Results Test Description Test Time Test Comments Results Result Comments Source ECG 12 lead 2019-12-10 21:17:46 Test Item Value Reference Range Interpretation Comme nts Ventricular rate (test code = 253) Atrial rate (test code = 255) WI interval (test code = 266) QRSD interval [...] [facility] [id number] 00:38:18EXAMINATION: OR FL < 1 HOUR CLINICAL HISTORY: None provided. IMPRESSION: 1. Fluoroscopy was provided in the operating. I was not present during the procedure.2. Please refer to the operative reportfor findings.3. Total Dose: 114 fluoroscopic images. 27.1 minutes of fluoroscopy time.[facility],Radiology Results Incoming - 12/09/2019 7:41 PM CDT EXAMINATION: OR FL < 1 HOURCLINICAL HISTORY: None provided.IMPRESSION:1. Fluoroscopywas provided in the operating. I was not present during the procedure.2. Please refer to the operative report for findings.3. Total Dose: 114 fluoroscopic images. 27.1 minutes of fluoroscopy time.[facility]2020-10-05 18:56:58Antonieta Lawrence CRNA 12/09/2019 1:57 PMAirway Date/Time: 12/09/2019 1:57 PMPerformed by: Antonieta Lawrence CRNAAuthorized by: Sameer Donohue MD Location: ORUrgency: ElectiveDifficult Airway: No Anesthesiologist: Sameer Donohue, MDResident/FOOD MIXER ASSEMBLER/AA: Antonieta Lawrence CRNAPerformed by: resident/FOOD MIXER ASSEMBLER/AAPreoxygenated with 100% O2: Yes C-spine Precautions Maintained Throughout: Yes Mask Ventilation: Not attemptedFinal Airway Type: Supraglottic airwayFinal LMA: I-GelLMA Size: 4Number of Attempts at Approach: 1[facility]Post [id number] 05:44:14 Test Item Value Reference Range Interpretation Comments Ventricular rate (test code = 253) Atrial rate (test code = 255) WI interval (test code = 266) QRSD interval [...] CABALLERO, Htut (2056) on 12/06/2019 12:44:11 [facility] [id number] 21:56:18EXAMINATION: XR CHEST 2 CLINICAL HISTORY: Z01.818 Encounter for other preprocedural examination, PRE OP COMPARISON: None. IMPRESSION: Heart and mediastinum: Cardiomediastinal silhouette is prominent. Atherosclerotic calcifications of the aortic arch. Lungs and pleura: There is no focal airspace disease, pleural effusion or pneumothorax. Bones: No acute abnormality. Spinal cord stimulator deviceseen overlying the thoracic spine. [facility]-[id number] Dictated and approved by residential mortgage manager/fellow: Joseph Malik M.D. I, Daniel Abbott, personally reviewed the images and resident's/fellow's findings and agree with the final report.[facility], Radiology Results Incoming - 12/05/2019 4:59 PM CDT EXAMINATION: XR CHEST 2 VWCLINICAL HISTORY: Z01.818 Encounter for other preprocedural examination, PRE OPCOMPARISON: None.IMPRESSION:Heart and mediastinum: Cardiomediastinal silhouette is prominent. Atherosclerotic calcifications of the aortic arch.Lungs and pleura: There is no focal airspace disease, pleural effusion or pneumothorax.Bones: No acute abnormality.Spinal cord stimulator device seen overlying the thoracic spine.[facility]-[id number] and approved by residential mortgage manager/fellow: Nate Schmitz, Daniel Abbott, personallyreviewed the images and resident's/fellow's findings and agree with the final report. [facility] ([facility])2019-10-04 22:28:00 Test Item Value Reference Range Interpretation Comments SARS-COV2/RT-PCR (test Negative Not Detected, Negative, code = 2681794) See external report for linked test SARS-COV-2 PERFORMING LAB [facility] (test code = 4301032) Negative result for this test determines that [...] 564(g) of the Act.Fact Sheet for Healthcare Providers:https://www.C[employer]/sites/default/files/product/documents/Fact_Shee c_RU_Icffeljbs_Bnsy_OMEV-HbR-4.pdfFact Sheet for Healthcare Patients:https://www.[employer]/sites/default/files/product/ documents/Bwpe_Esbmn_Pnecpgtj_Sfvy_WCSH-HaK-7.pdfPerforming Laboratory:[facility], [place] [address]FNFS-CWJ3/RT-PCR ([facility])2019-10-01 04:23:00 Test Item Value Reference Range Interpretation Comments SARS-COV2/RT-PCR (test code Negative Not Detected, Negative, = 4562386) See external report for linked test SARS-COV-[address] [facility] (test code = 0841164) Negative results do not preclude SARS-CoV-2 infection [...] of the Act.Fact Sheet for Healthcare Pro viders:https://www.Turpitude/Documents/Xpert%20Xpress%20SARS%20CoV-2/Fact%20Sh eets/302-3802%83CZVL-AXA-4%20HEALTHCARE%20PROVIDERS%20FACT%20SHEET.pdfFact Sheet for Healthcare Patients:https://www.J[employer]a.[employer]/Documents/Xpert%20Xpress%20SARS%20CoV-2/Fact%20Sheets/302-3801%20SARS-COV -2%20PATIENT%20FACT%20SHEET.pdfPerforming Laboratory:[address], [place] [address]CBFTOXJ IMAGING, MULTI, PHARM, SPECT 2019-02-21 15:54:00Referring: Dr. Schultz Critical Access HospitalFINAL REPORT PROCEDURE: MYOCARDIAL PERFUSION SPECT IMAGING (Rest/Stress)CPT CODE: 71334 INDICATION: Renal transplant evaluation, hypertension, shortness of [...] MDReport Verified Date/Time: 02/21/2019 15:54:30 Reading Location: [address] Reading Room [id number] 17:11:00 Test Item Value Reference Range Interpretation Comments PROSTATE SPECIFIC ANTIGEN (BEAKER) 0.8 ng/mL 0.0-4.0 (test code = 844) HEPATITIS B SURFACE [id number] 17:11:00 Test Item Value Reference Range Interpretation Comments HEPATITIS B SURFACE ANTIBODY 612.9 mIU/mL <8.0 H (BEAKER) (test code = 647) PROTHROMBIN TIME/[id number] 14:59:00 Test Item Value Reference Range Interpretation Comments PROTIME (BEAKER) (test code = 15.6 seconds 11.7-14.7 H 759) INR (BEAKER) (test code = 370) 1.2 <=5.9 RECOMMENDED COUMADIN/WARFARIN INR THERAPY RANGESSTANDARD DOSE: 2.0 - 3.0 Includes: PROPHYLAXIS forvenous thrombosis, systemic embolization; TREATMENT for venous thrombosis and/or pulmonary embolus.HIGH RISK: Target INR is 2.5-3.5 for patients with mechanical heart valves.BASIC METABOLIC [id number] 14:58:00 Test Item Value Reference Range Interpretation [...] APPLICABLE FOR DIALYSIS PATIEN TS. HEPATIC FUNCTION [id number] 14:53:00 Test Item Value Reference Range Interpretation [...] 6-55 347) CBC W/PLT COUNT & AUTO [id number] 14:19:00 Test Item Value Reference Range Interpretation [...] = 2801) FLOW PRA CLASS I AND [id number] 12:02:00 Test Item Value Reference Range Interpretation Comments DATE OF SERUM (BEAKER) 9110312 (test code = 2289) SERUM # (BEAKER) (test 572215 code = 2291) FLOW PRA CLASS I AND II See Scanned Report (test code = 2421) HEPATITIS B SURFACE [id number] 13:18:00 Test Item Value Reference Range Interpretation Comments HEPATITIS B SURFACE ANTIBODY < mIU/mL <8.0 (BEAKER) (test code = 647) [id number] 13:08:00 Test Item Value Reference Range Interpretation Comments PROSTATE SPECIFIC ANTIGEN (BEAKER) 0.9 ng/mL 0.0-4.0 (test code = 844) FLOW PRA CLASS I AND [id number] 16:00:00 Test Item Value Reference Range Interpretation Comments DATE OF SERUM (BEAKER) 6040312 (test code = 2289) SERUM # (BEAKER) (test 10290705 code = 2290) FLOW PRA CLASS I AND II See Scanned Report (test code = 2421) BASIC METABOLIC [id number] 15:51:00 Test Item Value Reference Range Interpretation [...] APPLICABLE FOR DIALYSIS PATIEN TS. HEPATIC FUNCTION [id number] 15:48:00 Test Item Value Reference Range Interpretation [...] 6-55 347) CBC W/PLT COUNT & AUTO [id number] 15:11:00 Test Item Value Reference Range Interpretation [...] (test code = 417) 0.00AFB CULTURE + [id number] 19:58:00 Test Item Value Reference Range Interpretation Comments CULTURE (BEAKER) (test No acid-fast bacilli code = 1095) isolated in 42 days AFB SMEAR (BEAKER) No acid fast bacilli (test code = 994) seen AFB CULTURE + [id number] 19:58:00 Test Item Value Reference Range Interpretation Comments CULTURE (BEAKER) (test No acid-fast bacilli code = 1095) isolated in 42 days AFB SMEAR (BEAKER) No acid fast bacilli (test code = 994) seen AFB CULTURE + [id number] 18:21:00 Test Item Value Reference Range Interpretation Comments CULTURE (BEAKER) (test No acid-fast bacilli code = 1095) isolated in 42 days AFB SMEAR (BEAKER) No acid fast bacilli (test code = 994) seen POCT-GLUCOSE [id number] 10:30:00 Test Item Value Reference Range Interpretation Comments POC-GLUCOSE METER 468 mg/dL 70-[address] [facility] [address] ([facility]) (test code = JANICE NUÑEZ [place] 1538) [address] CREATINE KINASE (CK), TOTAL AND [id number] 08:31:00 Test Item Value Reference Range Interpretation Comments CREATINE KINASE TOTAL (BEAKER) 42 U/L 29-200 (test code = 380) CREATINE KINASE-MB (BEAKER) (test 2.3 ng/mL 0.0-6.6 code = 750) CREATINE KINASE-MB INDEX (BEAKER) 5.5 % (test code = 395) Effective 01/21/2014: CK-MB Reference Range ChangeNew: 0.0-6.6 Previous: 0.0-4.9CK-MB Reference Range:<6.7 Normal6.7-10.0 Borderline>10.0 AbnormalTROPONIN [id number] 08:31:00 Test Item Value Reference Range Interpretation [...] acute neurological disease, and persistent tachyarrhythmia.BASIC METABOLIC [id number] 08:27:00 Test Item Value Reference Range Interpretation [...] S NOT APPLICABLE FOR DIALYSIS PATIEN TS. [id number] 08:24:00 Test Item Value Reference Range Interpretation Comments MAGNESIUM (BEAKER) (test code = 2.4 mg/dL 1.6-2.6 627) CBC W/PLT COUNT & AUTO [id number] 08:17:00 Test Item Value Reference Range Interpretation [...]
[2021-02-11 21:39] LABS: Absolute Lymphocytes (CBC) 0.9 K/uL (0.7-4.9); Hematocrit 27.1 % (39.6-49.0); Lymphocytes % 13.8 % (15.3-44.8); MPV 8.9 fL (7.6-11.3); RBC Red Blood Cell Count 2.84 M/uL (4.33-5.43)
[2021-02-11] MEDS ORDERED: D50W 25 GM/50 ML SYRINGE IV ONE (21:47)
[2021-02-11 21:54] LABS: Protime INR 1.15
[2021-02-11 22:05] LABS: ALT/SGPT < 6 U/L (12-78); AST/SGOT 12 U/L (15-37); Albumin 2.4 g/dL (3.4-5.0); Alkaline Phosphatase 130 U/L (45-117); BUN Blood Urea Nitrogen 111 mg/dL (7-18); Bicarbonate 17 mmol/L (21-32); Bilirubin Direct 0.6 mg/dL (0-0.2); Bilirubin Total 0.9 mg/dL (0.2-1.0); Glucose Level 71 mg/dL (74-106); Magnesium 2.9 mg/dL (1.8-2.4); Protein, Total 6.8 g/dL (6.4-8.2); Sodium Level 125 mmol/L (136-145); Troponin (Emerg Dept Use Only) 0.03 ng/mL (0.0-0.045)
[2021-02-11 22:07] LABS: Potassium 6.9 mmol/L (3.5-5.1)
[2021-02-11 22:15] LABS: NT PRO-BNP > 175000 pg/mL (<125)
[2021-02-11] MEDS ORDERED: FENTANYL CITR 100 MCG/2 ML ONE (22:31)
[2021-02-11] MEDS ORDERED: SOD POLYSTYREN SUL 15 GM/60 ML UCUP ONE (22:32)
[2021-02-11] MEDS ORDERED: CALCIUM GLUCONATE 1 GM IVPB 2 GM/100 ML BAG IV ONE (22:33)
[2021-02-11] MEDS ORDERED: FUROSEMIDE 40 MG/4 ML VIAL ONE (22:33)
[2021-02-11] MEDS ORDERED: ALBUTEROL 2.5 MG/3 ML NEB SOL ONE (22:34)
--- NOTE | 2021-02-11 22:46 | ER ---
Nurse's Notes [facility] Name: Alexis Urbano Age: 65 yrs Sex: Male : 1955 Arrival Date: 02/11/2021 Time: 21:22 Bed 7 Private MD: Diagnosis: End stage renal disease;Hyperkalemia Presentation: 02/11 21:53 Chief complaint: EMS states: called for generalized weakness and finger pain. as6 Coronavirus screen: At this time, the client does not indicate any symptoms associated with coronavirus-19. Ebola Screen: No symptoms or risks identified at this time. Initial Sepsis Screen: Does the patient meet any 2 criteria? No. Patient's initial sepsis screen is negative. Does the patient have a suspected source of infection? No. Patient's initial sepsis screen is negative. Risk Assessment: Do you want to hurt yourself or someone else? Patient reports no desire to harm self or others. Onset of symptoms was February 2021. Care prior to arrival: Glucose check: 58. 21:53 Method Of Arrival: EMS: [facility] as6 21:53 Acuity: JOEL 3 as6 Historical: - Allergies: 21:56 No Known Allergies; as6 - Home Meds: 21:56 tizanidine 4 mg Oral tab twice a day [Active]; gabapentin 300 mg oral cap 1 cap twice a as6 day [Active]; clonidine HCl 0.3 mg oral tab 1 tab 2 times per day [Active]; carvedilol 6.25 mg oral tab 1 tab 2 times per day [Active]; ropinirole 5 mg oral tab 1 tab daily [Active]; - PMHx: 21:56 Arthritis; COPD; Diabetes - NIDDM; Dialysis; M/W/F; ESRD; GERD; High Cholesterol; as6 Hypertension; - PSHx: 21:56 Fistula placed on left arm; as6 - Immunization history:: Adult Immunizations Client reports receiving the 2nd dose of the Covid vaccine, Last tetanus immunization: < 10 years ago Pneumococcal vaccine is not up to date, Flu vaccine is not up to date. - Social history:: Smoking status: Patient reports the use of cigarette tobacco products, smokes one-half pack cigarettes per day. Screenin:15 Abuse screen: Denies threats or abuse. Nutritional screening: No deficits noted. tw5 Tuberculosis screening: No symptoms or risk factors identified. Fall Risk Fall in past 12 months (25 points). Secondary diagnosis (15 points) impaired mobility, IV access (20 points). Ambulatory Aid- Gait- Weak (10 pts.). Mental Status- Oriented to own ability (0 pts). Total Gray Fall Scale indicates High Risk Score (45 or more points). Side Rails Up X 2 Placed Close to Nursing Station Frequent Obs/Assessments Occuring As available patient and family educated on Fall Prevention Program and Strategies. Assessment: 22:10 General: Appears uncomfortable, Behavior is cooperative, anxious. Pain: Complains of tw5 pain in right hand and left hand. Pain: Quality of pain is described as sharp. Neuro: Level of Consciousness is awake, alert, obeys commands, Oriented to person, place, time, situation. Neuro: Reports weakness. Cardiovascular: Heart tones S2 present Edema is 3+ to BLE pitting to BLE Dialysis shunt: in the left bicep, with no erythema, with no edema. Respiratory: Airway is patent Trachea midline Respiratory effort is even, unlabored, Respiratory pattern is regular, symmetrical. Derm: Wound noted right hand and left hand. 23:02 General: Patients clothes removed, placed in gown and adult diapers. New warm blanket as6 provided.. Pain: Pain currently is 9 out of 10 on a pain scale. 23:02 General: Behavior is cooperative, anxious. Pain: Noted to be grimacing, moaning. as6 02/12 01:22 Reassessment: pt receiving dialysis. as6 02:25 Reassessment: Patient appears in no apparent distress at this time. dialysis nurse at as6 bedside. 03:29 Reassessment: dialysis complete, 2 liters of fluid removed. as6 Vital Signs: 02/11 21:53 BP 137 / 48; Pulse 42; Resp 16 S; Temp 98.4(O); Pulse Ox 99% on R/A; Weight 57.15 kg as6 (R); Height 5 ft. 6 in. (167.64 cm) (R); Pain 9/10; 22:14 BP 183 / 26; Pulse 42; Resp 12 S; Pulse Ox 100% on R/A; tw5 23:01 Pain 9/10; as6 23:02 BP 151 / 50; Pulse 44; Resp 10; Pulse Ox 98% on Nebulizer Mask; as6 21:53 Body Mass Index 20.34 (57.15 kg, 167.64 cm) as6 ED Course: 21:22 Patient arrived in ED. wm 21:24 Homar Beck PA is PHCP. cp 21:24 Fito Ward MD is Attending Physician. cp 21:24 Roderick Chapman, RN is Primary Nurse. as6 21:56 Triage completed. as6 22:01 Arm band placed on. as6 22:02 XRAY Chest (1 view) In Process Unspecified. EDMS 22:09 Inserted saline lock: 20 gauge in right antecubital area, using aseptic technique. tw5 Blood collected. 22:16 Placed in gown. Bed in low position. Call light in reach. Side rails up X2. Cardiac tw5 monitor on. Pulse ox on. NIBP on. Warm blanket given. 22:16 Notified Nurse Practitioner and/or Physician Mutuel Cashier of a critical lab result(s), tw5 Potassium 6.9 Creatine 15.7. 22:28 Notified Nurse Practitioner and/or Physician Mutuel Cashier of patient would like pain tw5 medication. 22:45 Yeyo Carreon DO is Hospitalizing Provider. cp 23:02 Blood Culture Adult (2) Sent. as6 23:02 Lactate Sent. as6 23:02 Procalcitonin Sent. as6 23:02 COVID swab sent to lab. as6 23:10 CORONAVIRUS Sent. as6 23:10 COVID-19 (Coronavirus) Document "Date of Onset" if Symptomatic Sent. as6 23:50 Patient transported to room with sink per dialysis nurse request. Dialysis nurse tw5 refused to help transport patient with ER nurse. 12 00:11 ER nursing staff have been unable to locate Dialysis Nurse. tw5 03:57 No provider procedures requiring assistance completed. Patient admitted, IV remains in tw5 place. 16:27 Primary Nurse role handed off by Roderick Chapman, ABBIE bp 16:27 Raman Espinoza, ABBIE is Primary Nurse. bp Administered Medications: 02/11 21:50 Drug: D50W 50 ml Route: IVP; Site: right antecubital; as6 23:02 Follow up: Response: No adverse reaction as6 22:28 CANCELLED (Other Intervention Used): Calcium Gluconate 1 grams IVPB once over 60 mins; la1 (mix in NS 100 mL) 22:42 Drug: fentaNYL (PF) 25 mcg Route: IVP; Site: right antecubital; as6 23:01 Follow up: Pain 11/13 Adult; Response: No adverse reaction; Pain is unchanged, physician as6 notified; RASS: Alert and Calm (0) 22:45 Drug: Kayexalate (polystyrene) 45 grams Route: PO; as6 23:01 Follow up: Response: No adverse reaction as6 22:48 Drug: Albuterol 2.5 mg Route: Inhalation; as 22:48 Drug: Lasix (furosemide) 80 mg Route: IVP; Site: right antecubital; as6 23:01 Follow up: Response: No adverse reaction as 23:01 Drug: Albuterol 2.5 mg Route: Inhalation; 23:01 Drug: Albuterol 2.5 mg Route: Inhalation; as6 23:10 Drug: Calcium Gluconate 2 grams Route: IVPB; Infused Over: 60 mins; Site: right as6 antecubital; 02/12 03:58 Follow up: Response: No adverse reaction; IV Status: Completed infusion tw5 Outcome: 02/11 22:46 Decision to Hospitalize by Provider. cp 02/12 03:57 Admitted to ER Hold. Please see [facility] for further documentation. tw5 Condition: improved Instructed on the need for admit. 17:36 Patient left the ED. bp Signatures: Dispatcher [employer] EDMS Homar Beck PA PA cp Raman Espinoza RN RN bp Marsh, Wendy wm Wood, Tiffany tw5 Roderick Chapman RN RN as6 Sixto Kramer FAMILY CONSUMER SCIENCE TEACHER-Cla1 Corrections: (The following items were deleted from the chart) 00:13 00:11 Patient transported to room with sink per dialysis nurse request. Nurse refused tw5 to help transport patient. tw5 00:14 00:11 Patient transported to room with sink per dialysis nurse request. Dialysis nurse tw5 refused to help transport patient with ER nurse. tw5
--- NOTE | 2021-02-11 22:46 | EDPHYS ---
Physician Documentation [facility] Name: Alexis Urbano Age: 65 yrs Sex: Male : 1955 Arrival Date: 02/11/2021 Time: 21:22 Bed 7 Private MD: ED Physician Fito Ward HPI: 02/11 21:30 This 65 yrs old Male presents to ER via EMS with complaints of General cp Weakness. 21:30 The patient has shortness of breath at rest. cp 21:30 Onset: The symptoms/episode began/occurred gradually. Duration: The symptoms are cp continuous, and are steadily getting worse. Associated signs and symptoms: Pertinent positives: general weakness, Pertinent negatives: chest pain, diaphoresis, fever. Severity of symptoms: in the emergency department the symptoms are unchanged despite home interventions. Patient reports he has not been to dialysis for the past 10 days due to chronic back pain. Historical: - Allergies: 21:56 No Known Allergies; as6 - Home Meds: 21:56 tizanidine 4 mg Oral tab twice a day [Active]; gabapentin 300 mg oral cap 1 cap twice a as6 day [Active]; clonidine HCl 0.3 mg oral tab 1 tab 2 times per day [Active]; carvedilol 6.25 mg oral tab 1 tab 2 times per day [Active]; ropinirole 5 mg oral tab 1 tab daily [Active]; - PMHx: 21:56 Arthritis; COPD; Diabetes - NIDDM; Dialysis; M/W/F; ESRD; GERD; High Cholesterol; as6 Hypertension; - PSHx: 21:56 Fistula placed on left arm; as6 - Immunization history:: Adult Immunizations Client reports receiving the 2nd dose of the Covid vaccine, Last tetanus immunization: < 10 years ago Pneumococcal vaccine is not up to date, Flu vaccine is not up to date. - Social history:: Smoking status: Patient reports the use of cigarette tobacco products, smokes one-half pack cigarettes per day. ROS: 21:35 Constitutional: Positive for poor PO intake, Negative for body aches, chills, fever. cp 21:35 Eyes: Negative for injury, pain, redness, and discharge. cp 21:35 ENT: Negative for ear pain, sore throat, difficulty swallowing, difficulty handling secretions. 21:35 Cardiovascular: Positive for edema, Negative for chest pain. 21:35 Respiratory: Positive for shortness of breath, Negative for cough. 21:35 Abdomen/GI: Negative for abdominal pain, nausea, vomiting, and diarrhea. 21:35 Back: Positive for pain at rest, pain with movement, Negative for injury or acute deformity. 21:35 Skin: Positive for of the right hand and left hand, chronic wounds. 21:35 Neuro: Positive for weakness, Negative for altered mental status. 21:35 All other systems are negative. Exam: 21:25 ECG was reviewed by the Attending Physician. cp 21:40 Constitutional: The patient appears in no acute distress, alert, awake, cp non-diaphoretic, non-toxic, well developed. 21:40 Head/Face: Normocephalic, atraumatic. cp 21:40 Eyes: Periorbital structures: appear normal, Pupils: equal, round, and reactive to light and accomodation, Extraocular movements: intact throughout, Conjunctiva: normal, no exudate, no injection, Sclera: no appreciated abnormality, Lids and lashes: appear normal, bilaterally. 21:40 ENT: External ear(s): are unremarkable, Nose: is normal, Mouth: Lips: dry, Oral mucosa: dry, Posterior pharynx: Airway: no evidence of obstruction, patent. 21:40 Neck: ROM/movement: is normal, is supple, without pain, no range of motions limitations, no meningismus. 21:40 Chest/axilla: Inspection: normal, Palpation: is normal, no crepitus, no tenderness. cp 21:40 Cardiovascular: Rate: bradycardic, Rhythm: regular, Edema: ankle edema, that is marked, cp JVD: is not appreciated. 21:40 Respiratory: the patient does not display signs of respiratory distress, Respirations: normal, no use of accessory muscles, no retractions, labored breathing, is not present, Breath sounds: decreased breath sounds, that are mild, throughout, stridor, is not appreciated, wheezing: is not appreciated. 21:40 Abdomen/GI: Inspection: abdomen appears normal, Bowel sounds: active, all quadrants, Palpation: abdomen is soft and non-tender, in all quadrants. 21:40 Back: pain, that is moderate, ROM is painful, with all movement. 21:40 Musculoskeletal/extremity: Exam is negative for deformity, injury. 21:40 Skin: multiple chronic wounds noted to multiple fingers bilaterally. 21:40 Neuro: Orientation: to person, place \\T\\ time. Mentation: is normal, Motor: moves all fours, strength is normal. Vital Signs: 21:53 BP 137 / 48; Pulse 42; Resp 16 S; Temp 98.4(O); Pulse Ox 99% on R/A; Weight 57.15 kg as6 (R); Height 5 ft. 6 in. (167.64 cm) (R); Pain 9/10; 22:14 BP 183 / 26; Pulse 42; Resp 12 S; Pulse Ox 100% on R/A; tw5 23:01 Pain 9/10; as6 23:02 BP 151 / 50; Pulse 44; Resp 10; Pulse Ox 98% on Nebulizer Mask; as6 21:53 Body Mass Index 20.34 (57.15 kg, 167.64 cm) as6 MDM: 21:36 Patient medically screened. cp 22:00 Differential diagnosis: Myocardial Infarction pneumonia, pulmonary edema, Sepsis. cp 22:50 Data reviewed: vital signs, nurses notes, lab test result(s), EKG, radiologic studies, cp plain films, and as a result, I will admit patient. 22:50 Test interpretation: by ED physician or midlevel provider: ECG, plain radiologic cp studies. 22:50 Physician consultation: Sixto Kramer was contacted at 22:45, regarding admission, to the ICU, patient's condition, and will see patient in ED, shortly. 02/11 21:24 Order name: Basic Metabolic Panel; Complete Time: 22:17 cp 02/11 22:11 Interpretation: Normal except: NA 125; K 6.9; CL 92; CO2 17; GLUC 71; BUN 111; CRE cp 15.70; GFR 3; CA 7.7. 02/11 21:24 Order name: CBC with Diff; Complete Time: 21:58 cp 02/11 22:10 Interpretation: Normal except: RBC 2.84; HGB 9.0; HCT 27.1; PLT 98; CELINA% 76.1; LYM% cp 13.8. 02/11 21:24 Order name: LFT's; Complete Time: 22:23 cp 02/11 22:23 Interpretation: Normal except: ALK 130; BILID 0.6; GLOB 4.4; A/G 0.5; ALT < 6; AST 12. cp 12/ 21:24 Order name: Magnesium; Complete Time: 22:23 cp / 22:10 Interpretation: Abnormal: MG 2.9. cp / 21:24 Order name: NT PRO-BNP; Complete Time: 22:23 cp 02/11 22:23 Interpretation: Abnormal: NT PRO-BNP > [id number]. cp / 21:24 Order name: PT-INR; Complete Time: 22:09 cp 02/11 21:24 Order name: Troponin (emerg Dept Use Only); Complete Time: 22:23 cp 02/11 21:37 Order name: Lactate; Complete Time: 04:46 cp 02/11 21:37 Order name: Procalcitonin; Complete Time: 04:46 cp 02/11 21:37 Order name: Blood Culture Adult (2) cp 02/11 21:44 Order name: Glucose, Ancillary Testing; Complete Time: 21:58 EDMS 02/11 22:48 Order name: Glucose, Ancillary Testing; Complete Time: 04:46 EDMS 02/11 22:55 Order name: COVID-19 (Coronavirus) Document "Date of Onset" if Symptomatic 02/11 22:56 Order name: CORONAVIRUS EDMS 02/11 21:24 Order name: XRAY Chest (1 view) cp 02/11 23:53 Order name: SARS-COV-2 RT PCR; Complete Time: 04:46 EDMS 02/12 05:57 Order name: CBC with Automated Diff EDMS 02/12 06:18 Order name: Comprehensive Metabolic Panel EDMS 02/12 06:18 Order name: T4 Free EDMS 02/12 06:18 Order name: Magnesium EDMS 02/12 06:18 Order name: Thyroid Stimulating Hormone EDMS 02/12 06:59 Order name: CBC Smear Scan EDMS 02/12 08:02 Order name: Glucose, Ancillary Testing EDMS 02/11 21:24 Order name: EKG; Complete Time: 21:25 cp 02/11 21:24 Order name: Cardiac monitoring; Complete Time: 21:38 cp 02/11 21:24 Order name: EKG - Nurse/Tech; Complete Time: 21:38 cp 02/11 21:24 Order name: IV Saline Lock; Complete Time: 21:38 cp 02/11 21:24 Order name: Labs collected and sent; Complete Time: 21:53 cp 02/11 21:24 Order name: O2 Per Protocol; Complete Time: 21:38 cp 02/11 21:24 Order name: O2 Sat Monitoring; Complete Time: 21:38 cp EC:25 Rate is 43 beats/min. Rhythm is regular. WI interval is normal. QRS interval is cp prolonged at 130 msec. QT interval is prolonged at 582 msec. Interpreted by me. Reviewed by me. Administered Medications: 21:50 Drug: D50W 50 ml Route: IVP; Site: right antecubital; as6 23:02 Follow up: Response: No adverse reaction as6 22:28 CANCELLED (Other Intervention Used): Calcium Gluconate 1 grams IVPB once over 60 mins; la1 (mix in NS 100 mL) 22:42 Drug: fentaNYL (PF) 25 mcg Route: IVP; Site: right antecubital; as6 23:01 Follow up: Pain 11/13 Adult; Response: No adverse reaction; Pain is unchanged, physician as6 notified; RASS: Alert and Calm (0) 22:45 Drug: Kayexalate (polystyrene) 45 grams Route: PO; as6 23:01 Follow up: Response: No adverse reaction as6 22:48 Drug: Albuterol 2.5 mg Route: Inhalation; as6 22:48 Drug: Lasix (furosemide) 80 mg Route: IVP; Site: right antecubital; as6 23:01 Follow up: Response: No adverse reaction as6 23:01 Drug: Albuterol 2.5 mg Route: Inhalation; as6 23:01 Drug: Albuterol 2.5 mg Route: Inhalation; as6 23:10 Drug: Calcium Gluconate 2 grams Route: IVPB; Infused Over: 60 mins; Site: right as6 antecubital; 02/12 03:58 Follow up: Response: No adverse reaction; IV Status: Completed infusion tw5 Disposition Summary: 02/11/21 22:46 Hospitalization Ordered Hospitalization Status: Inpatient Admission cp Provider: Yeyo Carreon cp Condition: Serious cp Problem: new cp Symptoms: are unchanged cp Bed/Room Type: Standard cp Location: Telemetry/MedSurg (Inpatient)(02/12/21 16:00) Room Assignment: [facility](02/12/21 16:57) ja1 Diagnosis - End stage renal disease cp - Hyperkalemia cp Forms: - Medication Reconciliation Form cp - SBAR form cp Addendum: 02/15/2021 06:59 Co-signature as Attending Physician, Fito Ward MD I agree with the assessment and r n plan of care. Attestation: The patient's history, exam findings, diagnostics, and a summary of any interventions or procedures was reviewed in detail with Homar ROSA. Signatures: Dispatcher [employer] Alyssia Francis RN RN bb Nieto, Roman, MD MD rn Sixto Kramer, TILE APPLICATOR-C TILE APPLICATOR-Cla1 Homar Beck PA PA cp Garcia, Cindy, RN ABBIE cg Kael Go RN RN ja1 Lynda Charlton Tiffany tw5 Roderick Chapman RN RN as6 Corrections: (The following items were deleted from the chart) 02/11 22:11 22:10 Normal except: NA 125; K 6.9; CL 92; CO2 17; GLUC 71; BUN 111; CRE 15.70; GFR 3. cp cp 22:23 22:10 Normal except: ALK 130; BILID 0.6. cp cp 22:23 22:23 Normal except: ALK 130; BILID 0.6; GLOB 4.4; A/G 0.5. cp cp 22:28 22:25 Calcium Gluconate 1 grams IVPB once over 60 mins; (mix in NS 100 mL) ordered. cp la1 22:52 22:46 Intensive Care Unit cp cg 22:52 22:46 cp cg 02/12 16:00 02/11 22:52 [facility] ER HOLD cg eb 02/12 16:00 02/11 22:52 ERHOLD- cg eb 02/12 16:57 16:00 228 eb ja1
--- NOTE | 2021-02-11 22:54 | P.HP ---
Certification for Inpatient Patient admitted to: Inpatient With expected LOS: >2 Midnights Patient will require the following post-hospital care: None Practitioner: I am a practitioner with admitting privileges, knowledge of patient current condition, hospital course, and medical plan of care. Services: Services provided to patient in accordance with Admission requirements found in Title 42 Section 412.3 of the Code of Federal Regulations Patient History Date of Service: 02/11/21 Primary Care Provider: Anabel, nephrology Dr. Rand Reason for admission: Hyperkalemia History of Present Illness: 65-year-old male with history of ESRD on HD, diabetes type 2, hypertension, hyperlipidemia, COPD, GERD, chronic back pain presents emergency department for generalized weakness. Patient reports he has missed dialysis for last 10 days as he has been having significantly worse chronic back pain and weakness, reports he has been unable to get out of bed and make his dialysis even though he has transportation arranged. Patient was evaluated in the emergency department found to be bradycardic with heart rate around 42 labs were significant for moderate hyponatremia with sodium 125 hyperkalemia 6.9 chloride 92 bicarb 17 BUN 111 creatinine 15.7 GFR 3 glucose 71 magnesium 2.9 calcium 7.7 BNP greater than 175,000 troponin 0.03 hemoglobin 9 hematocrit 27.1. Given bradycardia and hyperkalemia nephrology was contacted while patient was in the emergency department, patient will be receiving IV Lasix, calcium gluconate, albuterol nebulizer treatment, Kayexalate and dialysis will be arranged for this evening as well as tomorrow. Will admit to ICU for the time being given bradycardia and hyperkalemia. Allergies No Known Drug Allergies Allergy (Mild, Verified 01/22/21 22:30) Unknown Home Medications: Folic Acid 1 mg PO DAILY #30 tablet 01/23/21 Heparin [Heparin 1,000 units/mL *] 4,000 unit IV EVERY HD PRN vial 01/23/21 - Past Medical/Surgical History Diabetic: Yes -: Hepatitis-C (cured) -: HTN -: Hyperlipidemia -: Chronic pain -: Chronic anemia -: End-stage renal disease on hemodialysis (MWF) -: Diabetes mellitus type 2 -: Chronic pain -: Chronic anemia -: Cirrhosis of liver on the CT scan -: COPD -: Left knee replacement -: ankle heel spur removed -: Leftankle surgery -: toe surgery -: back surgery -: TENS implant -: Left femur Psychosocial/ Personal History: Patient is . He has 2 children - Family History Sister -: Diabetes, Cancer Notes: colon ca Brother -: Hypertension, Diabetes dad -: Hypertension Notes: Colostomy mom -: Hypertension, Cancer Notes: dementia, Breast Cancer - Social History Smoking Status: Current every day smoker Counseled patient to stop smoking for: less than 10 minutes Smoking therapy provided: No Alcohol use: No CD- Drugs: No Caffeine use: Yes Place of Residence: Home Review of Systems 10-point ROS is otherwise unremarkable Respiratory: Shortness of Breath Cardiovascular: Edema Musculoskeletal: Back Pain Physical Examination - Physical Exam General: Alert, In no apparent distress, Oriented x3 HEENT: Atraumatic, PERRLA, Other (MM Dry), EOMI, Sclerae nonicteric Neck: Supple, 2+ carotid pulse no bruit, No LAD, Without JVD or thyroid abnormality Respiratory: Clear to auscultation bilaterally, Normal air movement Cardiovascular: Normal S1 S2, Edema, Irregular heart rate/rhythm (Sinus bradycardia rate 42) Capillary refill: <2 Seconds Gastrointestinal: Normal bowel sounds, No tenderness Musculoskeletal: No tenderness Integumentary: No rashes Neurological: Normal speech, Normal tone, Normal affect, Abnormal strength (4/5 all extremities) - Studies Laboratory Data (last 24 hrs) 02/11/21 21:28: PT 13.2 H, INR 1.15 02/11/21 21:28: WBC 6.50, Hgb 9.0 L, Hct 27.1 L, Plt Count 98 L 02/11/21 21:28: Sodium 125 L, Potassium 6.9 H*, BUN 111 H, Creatinine 15.70 H*, Glucose 71 L, Magnesium 2.9 H D, Total Bilirubin 0.9, AST 12 L, ALT < 6 L, Alkaline Phosphatase 130 H Assessment and Plan - Plan Assessment: Bradycardia, hyperkalemia secondary to ESRD on HD with medical noncompliance Medical debility secondary to chronic back pain, generalized weakness Diabetes mellitus type 2 with hypoglycemia Hypertension Hyperlipidemia COPD GERD Plan: Bradycardia, hyperkalemia secondary to ESRD on HD with medical noncompliance: Nephrology contacted while patient was in the emergency department will arrange for urgent dialysis. Patient did receive Lasix, calcium gluconate, albuterol, Kayexalate in the emergency department. Will admit to ICU at this time given bradycardia and hyperkalemia, can likely be downgraded after potassium is corrected as long as bradycardia improves. Appreciate further input from nephrology. Medical debility secondary to chronic back pain, generalized weakness: Physical therapy consulted, case management social worker consult patient may require inpatient physical therapy versus [facility]ci facility at discharge given significant weakness and back pain limiting patient's mobility and ability to participate in his care/make it to dialysis. Await further recommendations from physical therapy. Diabetes mellitus type 2 with hypoglycemia: Currently hypoglycemia noted, patient given amp of dextrose in the emergency department will attempt to feed patient and monitor glucose closely. Mild sliding scale in place. Hypertension: Obtain and continue home medications Hyperlipidemia: Obtain and continue home medications COPD: Obtain and continue home medications, no acute exacerbation GERD: Obtain and continue home medications DVT PPX: Heparin Code status: Full code Discharge Plan: Home Plan to discharge in: 48 Hours - Advance Directives Does patient have a Living Will: No Does patient have a Durable POA for Healthcare: No - Code Status/Comfort Care Code Status Assessed: Yes (Full code) Critical Care: No Time Spent Managing Pts Care (In Minutes): 55
[2021-02-12] MEDS ORDERED: ONDANSETRON 4 MG/2 ML VIAL IV PRN (03:33)
[2021-02-12 03:35] VITALS: BMI 20.3
[2021-02-12] MEDS ORDERED: HYDROCODONE/APAP 10/325 TAB ONE ×2 (04:01→15:13)
[2021-02-12] MEDS: HYDROCODONE/APAP 10/325 TAB PO PRN ×2 (04:01→16:04)
[2021-02-12] MEDS ORDERED: MORPHINE 2 MG/ML SYR IV PRN (04:54)
[2021-02-12 05:51] LABS: Absolute Lymphocytes (CBC) 0.7 K/uL (0.7-4.9); Lymphocytes % 12.1 % (15.3-44.8); MPV 8.2 fL (7.6-11.3); RBC Red Blood Cell Count 2.97 M/uL (4.33-5.43)
--- NOTE | 2021-02-12 06:12 | P.PN ---
Subjective Date of Service: 02/12/21 Primary Care Provider: None, nephrology Dr. Rand Chief Complaint: Hyperkalemia Subjective: Improving Physical Examination - Vital Signs Temperature: 98.0 F Blood Pressure: 205/92 Pulse: 71 Respirations: 19 Pulse Ox (%): 100 - Studies Laboratory Data (last 24 hrs) 02/11/21 21:28: PT 13.2 H, INR 1.15 02/11/21 21:28: WBC 6.50, Hgb 9.0 L, Hct 27.1 L, Plt Count 98 L 02/11/21 21:28: Sodium 125 L, Potassium 6.9 H*, BUN 111 H, Creatinine 15.70 H*, Glucose 71 L, Magnesium 2.9 H D, Total Bilirubin 0.9, AST 12 L, ALT < 6 L, Alkaline Phosphatase 130 H Assessment & Plan Discharge Plan: Home Plan to discharge in: 48 Hours Physician Review Additional Text: COVID: negative CXR: COMPARISON: January 22 TECHNIQUE: AP portable chest image was obtained 02/11/2021 10:02 pm . FINDINGS: No peripheral mass or consolidation. Interstitial pattern matches comparison. Scattered granulomatous calcifications are seen. Prominent, stable cardiomegaly is present. Central vasculature is mildly prominent. No significant or progressive failure or volume overload since January 22. Trachea is in midline. Neurostimulator device in place. No measurable pleural effusion and no pneumothorax. No acute bony abnormality seen. No acute aortic findings suspected. IMPRESSION: No new or progressive lung parenchymal process. Stable cardiomegaly and mild vascular engorgement. Physical exam: General: Alert, In no apparent distress, Oriented x3 HEENT: Atraumatic, PERRLA, Other (MM Dry), EOMI, Sclerae nonicteric Neck: Supple, 2+ carotid pulse no bruit, No LAD, Without JVD or thyroid abnormality Respiratory: Clear to auscultation bilaterally, Normal air movement Cardiovascular: Normal S1 S2, Edema, Irregular heart rate/rhythm (Sinus bradycardia rate 42) Capillary refill: <2 Seconds Gastrointestinal: Normal bowel sounds, No tenderness Musculoskeletal: No tenderness Integumentary: No rashes Neurological: Normal speech, Normal tone, Normal affect, Abnormal strength (4/5 all extremities) Impression: Bradycardia, hyperkalemia secondary to ESRD on HD with medical noncompliance Medical debility secondary to chronic back pain, generalized weakness Diabetes mellitus type 2 with hypoglycemia Hypertension Hyperlipidemia COPD GERD RLS Plan: Bradycardia, hyperkalemia secondary to ESRD on HD with medical noncompliance: Nephrology contacted while patient was in the emergency department will arrange for urgent dialysis. Patient did receive Lasix, calcium gluconate, albuterol, Kayexalate in the emergency department. COntinue with nephrology recommend ations. Medical debility secondary to chronic back pain, generalized weakness: Continue with PT. Patient wants home health with PT. He does not want SNF. Diabetes mellitus type 2 with hypoglycemia: Accucheck and sliding scale Hypertension: Restart home medication Lisinopril 20 mg BID. Continue with Coreg 6.25 BID. Hyperlipidemia: Obtain and verify home meds COPD: continue with medication GERD: Protonix addressed. RLS: Restart Requip. DVT PPX: Heparin Code status: Full code Discharge Plan: Home Time Spent Managing Pts Care (In Minutes): 55
[2021-02-12 06:17] LABS: AST/SGOT 11 U/L (15-37); Albumin 2.3 g/dL (3.4-5.0); Alkaline Phosphatase 125 U/L (45-117); BUN Blood Urea Nitrogen 61 mg/dL (7-18); Bicarbonate 23 mmol/L (21-32); Bilirubin Total 0.9 mg/dL (0.2-1.0); Glucose Level 85 mg/dL (74-106); Magnesium 2.4 mg/dL (1.8-2.4); Potassium 4.1 mmol/L (3.5-5.1); Protein, Total 6.5 g/dL (6.4-8.2); Sodium Level 134 mmol/L (136-145)
[2021-02-12 06:18] LABS: ALT/SGPT < 6 U/L (12-78)
[2021-02-12] MEDS ORDERED: TRAMADOL HCL 50 MG TAB PO PRN (06:30)
[2021-02-12 06:58] LABS: Platelet Estimate DECR; White Blood Cell Scan OK (OK)
[2021-02-12 06:59] LABS: Anisocytosis 1+; Blood Morphology Comment NOTED (NOT SEEN)
[2021-02-12] MEDS ORDERED: HYDRALAZINE HCL 20 MG/ML VIAL IV ONE (07:09)
[2021-02-12] MEDS: lisinopriL 20 MG TAB PO SCH ×2 (07:19→09:00)
--- NOTE | 2021-02-12 07:21 | P.CNS ---
Date of Consult: 02/12/21 Reason for Consult: ESRD Requesting Physician: Yeyo Carreon Primary Care Provider: None, nephrology Dr. Rand Chief Complaint: Hyperkalemia History of Present Illness: 65M w/ PMHx of ESRD presumed to be 2/2 DM/Htn on HD MWF at [facility], DM2, Htn, HLD, GERD, COPD, & chronic back pain who p/w generalized weakness. He reports missing dialysis treatments for the past week and a half. He had br adycardia w/ HR 42 bpm, hyponatremia, hyperK 6.9, & super elevated BNP. He received HD yesterday w/ hyperkalemia improved. He received another HD today. Allergies No Known Drug Allergies Allergy (Mild, Verified 01/22/21 22:30) Unknown Home Medications: Folic Acid 1 mg PO DAILY #30 tablet 01/23/21 Heparin [Heparin 1,000 units/mL *] 4,000 unit IV EVERY HD PRN vial 01/23/21 Albuterol Sulfate [Albuterol Sulfate Hfa] 1 puff NEB Q6HR 02/12/21 Gabapentin 300 mg PO BID 02/12/21 Hydrocodone/Acetaminophen [Hydrocodon-Acetaminophn 10-325] 1 each PO Q4HP PRN 02/12/21 Lactulose 20 gm PO BID 02/12/21 Ropinirole HCl 5 mg PO DAILY 02/12/21 Sevelamer Carbonate 1 tab PO DAILY 02/12/21 Tizanidine [Zanaflex] 4 mg PO BID 02/12/21 cloNIDine HCL [Catapres*] 1 tab PO TID 02/12/21 lisinopriL [Prinivil] 20 mg PO DAILY 02/12/21 - Past Medical/Surgical History Diabetic: Yes -: Hepatitis-C (cured) -: HTN -: Hyperlipidemia -: Chronic pain -: Chronic anemia -: End-stage renal disease on hemodialysis (MWF) -: Diabetes mellitus type 2 -: Chronic pain -: Chronic anemia -: Cirrhosis of liver on the CT scan -: COPD -: Left knee replacement -: ankle heel spur removed -: Leftankle surgery -: toe surgery -: back surgery -: TENS implant -: Left femur Psychosocial/ Personal History: Patient is . He has 2 children - Family History Sister Medical History: Diabetes, Cancer Notes: colon ca Brother Medical History: Hypertension, Diabetes dad Medical History: Hypertension Notes: Colostomy mom Medical History: Hypertension, Cancer Notes: dementia, Breast Cancer - Social History Smoking Status: Current every day smoker Alcohol use: No CD- Drugs: No Caffeine use: Yes Place of Residence: Home Review of Systems General: Weakness Eyes: Unremarkable ENT: Unremarkable Respiratory: Unremarkable Cardiovascular: Unremarkable Gastrointestinal: Unremarkable Genitourinary: Unremarkable Musculoskeletal: Back Pain Integumentary: Unremarkable Neurological: Weakness Lymphatics: Unremarkable Physical Examination Temp Pulse Resp BP Pulse Ox 98.0 F 71 19 205/92 H 100 02/12/21 06:12 02/12/21 06:12 02/12/21 06:12 02/12/21 06:12 02/12/21 06:12 General: Other (appears chronically ill) HEENT: Atraumatic, Normocephalic Neck: Supple Respiratory: Other (symmetric chest expansion) Cardiovascular: No rubs, No murmurs Gastrointestinal: Soft and benign, No guarding Musculoskeletal: No clubbing, Swelling Integumentary: No warmth Neurological: Normal speech, Normal tone Urinary: Other (no bladder distention) External genitalia: Deferred Rectal: Deferred Laboratory Data (last 24 hrs) 02/11/21 21:28: PT 13.2 H, INR 1.15 02/11/21 21:28: WBC 6.50, Hgb 9.0 L, Hct 27.1 L, Plt Count 98 L 02/11/21 21:28: Sodium 125 L, Potassium 6.9 H*, BUN 111 H, Creatinine 15.70 H*, Glucose 71 L, Magnesium 2.9 H D, Total Bilirubin 0.9, AST 12 L, ALT < 6 L, Alkaline Phosphatase 130 H Conclusions/Impression: # ESRD presumed to be 2/2 DM/Htn on HD MWF at [facility] HD received yesterday & today PUF tomorrow, 2 hrs, 3L off HD access: LA AVG EDW: 59 kgs Renal + DM diet Nephro-yani po daily Monitor renal panel # Hyperkalemia Resolved HD + renal diet as above # Volume overload HD/PUF as above # Htn BP above goal BP meds adjusted # Anemia, thrombocytopenia Monitor CBC # COPD Per primary team # Chronic back pain Per primary team
[2021-02-12] MEDS: INSULIN -REGULAR HUMAN 50 UNIT/0.5 ML ML SQ SCH ×4 (07:30→20:58)
--- NOTE | 2021-02-12 08:10 | RAD REPORT ---
EXAM DESCRIPTION: RAD - Chest Single View - 02/11/2021 10:02 pm CLINICAL HISTORY: general weakness COMPARISON: January 22 TECHNIQUE: AP portable chest image was obtained 02/11/2021 10:02 pm . FINDINGS: No peripheral mass or consolidation. Interstitial pattern matches comparison. Scattered gr anulomatous calcifications are seen. Prominent, stable cardiomegaly is present. Central vasculature is mildly prominent. No significant o r progressive failure or volume overload since January 22. Trachea is in midline. Neurostimulator de vice in place. No measurable pleural effusion and no pneumothorax. No acute bony abnormality seen. No acute aortic findings suspected. IMPRESSION: No new or progressive lung parenchymal process. Stable cardiomegaly and mild vascular engorgement.
[2021-02-12] MEDS ORDERED: HEPARIN 5000 UNIT/ML 1 ML VIAL SQ SCH (09:00)
[2021-02-12] MEDS ORDERED: carvediloL 6.25 MG TAB PO SCH ×2 (09:00→21:00)
[2021-02-12] MEDS: GABAPENTIN 300 MG CAP PO SCH ×2 (09:00→20:55)
[2021-02-12] MEDS ORDERED: HEPARIN 5000 UNIT/ML 1 ML VIAL ONE (09:11)
[2021-02-12] MEDS ORDERED: carvediloL 6.25 MG TAB ONE (09:12)
[2021-02-12] MEDS ORDERED: HYDRALAZINE HCL 20 MG/ML VIAL ONE (09:12)
[2021-02-12] MEDS ORDERED: GABAPENTIN 300 MG CAP ONE (09:12)
[2021-02-12] MEDS ORDERED: lisinopriL 20 MG TAB ONE (09:12)
[2021-02-12] MEDS: MORPHINE 2 MG/ML SYR IV PRN ×3 (10:15→19:07)
[2021-02-12] MEDS ORDERED: MORPHINE 2 MG/ML SYR ONE (10:19)
[2021-02-12] MEDS ORDERED: ONDANSETRON 4 MG/2 ML VIAL ONE (10:19)
[2021-02-12] MEDS ORDERED: INFLUENZA VACCINE (for 6+ mo) 0.5 ML DOSE IMVAC ONE (12:00)
[2021-02-12] MEDS ORDERED: PNEUMOCOCCAL VACCINE 0.5 ML IMVAC ONE (12:00)
[2021-02-12] MEDS: HYDRALAZINE HCL 20 MG/ML VIAL IV PRN (18:13)
[2021-02-12] MEDS ORDERED: HOME MED 1 EA UNK (Lactulose [Lactulose] 10 GM/15 ML Solution) PO PRN (18:17)
[2021-02-12] MEDS ORDERED: LACTULOSE 20 GM/30 ML UCUP PO PRN (18:51)
[2021-02-12] MEDS ORDERED: MORPHINE 2 MG/ML SYR IM ONE (19:01)
[2021-02-12] MEDS: CLONIDINE HCL 0.3 MG TAB PO SCH (20:54)
--- NOTE | 2021-02-13 05:43 | P.PN ---
Subjective Date of Service: 02/13/21 Primary Care Provider: None, nephrology Dr. Rand Chief Complaint: Hyperkalemia Subjective: Improving, Doing well Physical Examination - Vital Signs Temperature: 97.1 F Blood Pressure: 196/74 Pulse: 60 Respirations: 18 Pulse Ox (%): 95 Assessment & Plan Discharge Plan: Home Plan to discharge in: 24 Hours Physician Review Additional Text: COVID: negative CXR: COMPARISON: January 22 TECHNIQUE: AP portable chest image was obtained 02/11/2021 10:02 pm . FINDINGS: No peripheral mass or consolidation. Interstitial pattern matches comparison. Scattered granulomatous calcifications are seen. Prominent, stable cardiomegaly is present. Central vasculature is mildly prominent. No significant or progressive failure or volume overload since January 22. Trachea is in midline. Neurostimulator device in place. No measurable pleural effusion and no pneumothorax. No acute bony abnormality seen. No acute aortic findings suspected. IMPRESSION: No new or progressive lung parenchymal process. Stable cardiomegaly and mild vascular engorgement. Physical exam: General: Alert, In no apparent distress, Oriented x3 HEENT: Atraumatic, PERRLA, Other (MM Dry), EOMI, Sclerae nonicteric Neck: Supple, 2+ carotid pulse no bruit, No LAD, Without JVD or thyroid abnormality Respiratory: Clear to auscultation bilaterally, Normal air movement Cardiovascular: Normal S1 S2, Edema, Irregular heart rate/rhythm (Sinus bradycardia rate 42) Capillary refill: <2 Seconds Gastrointestinal: Normal bowel sounds, No tenderness Musculoskeletal: No tenderness Integumentary: No rashes Neurological: Normal speech, Normal tone, Normal affect, Abnormal strength (4/5 all extremities) Impression: Bradycardia, hyperkalemia secondary to ESRD on HD with medical noncompliance Medical debility secondary to chronic back pain, generalized weakness Diabetes mellitus type 2 with hypoglycemia Hypertension COPD GERD RLS Plan: Bradycardia, hyperkalemia secondary to ESRD on HD with medical noncompliance: Patient received dialysis yesterday. Patient improved. Hyperkalemia resolved. Case discussed with nephrology yesterday. Patient will get dialysis again today. Medications adjusted for his blood pressure. Blood pressure improved. Patient desires home health and physical therapy at discharge. Continue with Sevelamer 800 mg daily and folic acid. Compliance with dialysis addressed in detail. Anticipate discharge later today if okay with nephrology. Medical debility secondary to chronic back pain, generalized weakness: Pain appears controlled. Patient does not want to go to a skilled facility. Patient prefers home with home health and physical therapy. Spoke with director social welfare yesterday. This will be arranged. Continue with current medication for pain. Currently on Zanaflex 4 mg twice daily as needed for muscle spasm, gabapentin 300 mg 1 pill twice daily, and hydrocodone as needed for pain. Patient is seen by pain management in [place]. Diabetes mellitus type 2 with hypoglycemia: Continue Accu-Cheks and sliding scale. Previous A1c 5.8 in July 2020. Hypertension: Blood pressure improved. Patient now on lisinopril 40 mg daily, clonidine 0.3 mg 3 times a day. Patient was started on carvedilol. This will be increased to carvedilol 12.5 mg 1 pill twice daily. If blood pressure improved consider discharge today. COPD: Continue with COPD medicationDulera and albuterol. GERD: Continue with Protonix 40 mg daily RLS: Continue with Requip 5 mg daily DVT PPX: Heparin Code status: Full code Discharge Plan: Home with home health and physical therapy Time Spent Managing Pts Care (In Minutes): 55
[2021-02-13 05:46] LABS: Absolute Lymphocytes (CBC) 0.8 K/uL (0.7-4.9); Hematocrit 27.3 % (39.6-49.0); Lymphocytes % 15.9 % (15.3-44.8); MPV 9.2 fL (7.6-11.3); RBC Red Blood Cell Count 2.85 M/uL (4.33-5.43)
[2021-02-13 05:58] LABS: ALT/SGPT < 6 U/L (12-78); AST/SGOT 11 U/L (15-37); Albumin 2.1 g/dL (3.4-5.0); Alkaline Phosphatase 116 U/L (45-117); BUN Blood Urea Nitrogen 35 mg/dL (7-18); Bicarbonate 28 mmol/L (21-32); Bilirubin Total 0.9 mg/dL (0.2-1.0); Glucose Level 84 mg/dL (74-106); Magnesium 2.4 mg/dL (1.8-2.4); Phosphorus 5.6 mg/dL (2.5-4.9); Protein, Total 6.1 g/dL (6.4-8.2); Sodium Level 139 mmol/L (136-145)
[2021-02-13] MEDS: HYDRALAZINE HCL 20 MG/ML VIAL IV PRN ×2 (06:32→16:49)
[2021-02-13] MEDS: MORPHINE 2 MG/ML SYR IV PRN (06:33)
[2021-02-13] MEDS ORDERED: ALBUTEROL INHALER 60 PUFF/8 GM IH PRN (07:26)
[2021-02-13] MEDS: INSULIN -REGULAR HUMAN 50 UNIT/0.5 ML ML SQ SCH ×4 (07:30→21:00)
[2021-02-13] MEDS ORDERED: SEVELAMER CARBONATE 800 MG TABLET PO SCH (08:00)
[2021-02-13] MEDS: HYDROCODONE/APAP 10/325 TAB PO PRN (08:39)
[2021-02-13] MEDS: ROPINIROLE HCL 1 MG TAB PO SCH (08:40)
[2021-02-13] MEDS: SEVELAMER CARBONATE 800 MG TABLET PO SCH (08:41)
[2021-02-13] MEDS: MULTIVITAMINS,THERAPEUT 1 TAB PO SCH (08:41)
[2021-02-13] MEDS: GABAPENTIN 300 MG CAP PO SCH ×2 (08:42→21:51)
[2021-02-13] MEDS: CLONIDINE HCL 0.3 MG TAB PO SCH ×3 (08:42→21:50)
[2021-02-13] MEDS: FOLIC ACID 1 MG TABLET PO SCH (08:43)
[2021-02-13] MEDS: carvediloL 6.25 MG TAB PO SCH ×2 (08:43→21:56)
[2021-02-13] MEDS: lisinopriL 20 MG TAB PO SCH (08:43)
[2021-02-13] MEDS ORDERED: ROPINIROLE HCL 5 MG PO SCH (09:00)
[2021-02-13] MEDS: DULERA 100/5 (MOMETASONE/FORMOTEROL) INHALER IH SCH ×2 (09:00→21:00)
--- NOTE | 2021-02-13 16:19 | P.DS ---
Admission Date: 02/11/21 Discharge Date: 02/13/21 Primary Care Provider: None, nephrology Dr. Rand Disposition: ROUTINE DISCHARGE Discharge Condition: GOOD Reason for Admission: Hyperkalemia Consultations: Nephrology-Dr. Rand Procedures: COVID: negative CXR: COMPARISON: January 22 TECHNIQUE: AP portable chest image was obtained 02/11/2021 10:02 pm . FINDINGS: No peripheral mass or consolidation. Interstitial pattern matches comparison. Scattered granulomatous calcifications are seen. Prominent, stable cardiomegaly is present. Central vasculature is mildly prominent. No significant or progressive failure or volume overload since January 22. Trachea is in midline. Neurostimulator device in place. No measurable pleural effusion and no pneumothorax. No acute bony abnormality seen. No acute aortic findings suspected. IMPRESSION: No new or progressive lung parenchymal process. Stable cardiomegaly and mild vascular engorgement. Medical Problem List: Bradycardia, hyperkalemia secondary to ESRD on HD with medical noncompliance Medical debility secondary to chronic back pain, degenerative disc and joint disease, history of spinal stimulator Diabetes mellitus type 2 with hypoglycemia Hypertension COPD GERD RLS Anemia of chronic disease with chronic thrombocytopenia Chronic liver cirrhosis Brief History of Present Illness: 65-year-old male with history of ESRD on HD, diabetes type 2, hypertension, hyperlipidemia, COPD, GERD, chronic back pain presents emergency department for generalized weakness. Patient reports he has missed dialysis for last 10 days as he has been having significantly worse chronic back pain patient was not able to get to dialysis. He is brought to the ER for further evaluation. Patient found to have hyponatremia with a sodium of 125. Patient hyperkalemic with potassium 6.9. Patient given treatment for his potassium. Patient admitted for treatment. Hospital Course: Patient presented with bradycardia, hyperkalemia secondary to end-stage renal disease on hemodialysis with poor compliance. Patient admitted for treatment. Patient received dialysis with improvement. Compliance with dialysis was addressed in detail. Patient reported noncompliance due to his chronic back pain. Medications restarted. Patient has significantly improved. At discharge compliance with dialysis addressed in detail. Patient will continue with dialysis every Monday, Monday and Monday. Patient will continue with Sevelamer 800 mg daily and folic acid 1 mg daily. Recommend follow-up with nephrology in 1 week to follow-up his hospitalization. Recommend to recheck labBMP in 1 week. Recommend follow-up with PCP in 1 week to follow-up this hospitalization as well. Patient reported increased back pain and generalized weakness. Patient with history of degenerative disc and joint disease. Patient with history of spinal stimulator. Home medications restarted. Pain improved. Patient was evaluated by physical therapy. Consideration for skilled placement was addressed. Patient prefers home health and physical therapy. Home health and physical therapy will be arranged at discharge. At discharge patient will continue with his current medications of Zanaflex 4 mg twice daily as needed for muscle spasm, gabapentin 300 mg 1 pill twice daily, and hydrocodone as needed for pain. Patient is seen by pain management in [place]. Recommend follow-up with pain management in 1 to 2 weeks to continue his care. Patient with diabetes mellitus type 2. Blood sugar well controlled. Previous A1c 5.8 in July 2020. Recommend to recheck hemoglobin A1c in 1 week to monitor his progress. Continue with ADA diet. Recommend to maintain blood sugar less than 140 fasting and less than 200 after meals. Recommend follow-up with PCP to further monitor and address. Patient with hypertension. Blood pressure was uncontrolled. Patient reports blood pressure is not well controlled at home. This improved with dialysis and adjustment in his medication. Lisinopril was increased for better control. Carvedilol was added. At discharge patient will continue with lisinopril 40 mg daily, clonidine 0.3 mg 3 times a day, and carvedilol 12.5 mg 1 pill twice daily. Recommend to maintain blood pressure less than 130/80. If blood pressure remains above 140/90 additional medication may be required. This can be done with the help of his PCP or nephrology. Patient with COPD. At discharge patient may continue with Dulera 2 puff twice daily and albuterol 2 puffs 3 times a day as needed for shortness of breath. Patient with underlying GERD. Patient may continue with Protonix 40 mg daily. Patient with restless leg syndrome. At discharge patient will continue with Requip 5 mg daily. Patient with anemia of chronic disease with chronic thrombocytopenia. This can be monitored closely as an outpatient. Recommend no further use of nonsteroidal anti-inflammatories. Recheck CBC in 2 to 4 weeks to monitor his progress. Patient with chronic liver cirrhosis. Overall stable. This can be monitored as an outpatient. Recommend follow-up with GI as an outpatient. No further alcohol use is recommended. At discharge patient will continue with lactulose twice daily to maintain 2-3 bowel movements per day. Vital Signs/Physical Exam: Temp Pulse Resp BP Pulse Ox 97.6 F 59 16 202/71 H 94 02/13/21 12:00 02/13/21 15:56 02/13/21 12:00 02/13/21 15:56 02/13/21 12:00 General: Alert, In no apparent distress, Oriented x3, Cooperative HEENT: Atraumatic Neck: Supple Respiratory: Clear to auscultation bilaterally, Normal air movement Cardiovascular: Normal pulses, Regular rate/rhythm Gastrointestinal: Normal bowel sounds, No tenderness, No masses, No rebound, No guarding Musculoskeletal: No erythema, No tenderness, No warmth Integumentary: No tenderness/swelling, No erythema, No warmth, No cyanosis Neurological: Normal speech, Normal strength at 5/5 x4 extr, Normal tone, Normal affect Laboratory Data at Discharge: WBC 5.10 K/uL (4.3-10.9) 02/13/21 04:32 Hgb 8.9 g/dL (13.6-17.9) L 02/13/21 04:32 Hct 27.3 % (39.6-49.0) L 02/13/21 04:32 Plt Count 85 K/uL (152-406) L 02/13/21 04:32 PT 13.2 SECONDS (9.5-12.5) H 02/11/21 21:28 INR 1.15 02/11/21 21:28 Sodium 139 mmol/L (136-145) 02/13/21 04:32 Potassium 4.0 mmol/L (3.5-5.1) 02/13/21 04:32 BUN 35 mg/dL (7-18) H D 02/13/21 04:32 Creatinine 7.37 mg/dL (0.55-1.3) H* D 02/13/21 04:32 Glucose 84 mg/dL (74-106) 02/13/21 04:32 Phosphorus Cancelled 02/13/21 Unknown Magnesium 2.4 mg/dL (1.8-2.4) 02/13/21 04:32 Total Bilirubin 0.9 mg/dL (0.2-1.0) 02/13/21 04:32 AST 11 U/L (15-37) L 02/13/21 04:32 ALT < 6 U/L (12-78) L 02/13/21 04:32 Alkaline Phosphatase 116 U/L (45-117) 02/13/21 04:32 Home Medications: Folic Acid 1 mg PO DAILY #30 tablet 01/23/21 Albuterol Sulfate [Albuterol Sulfate Hfa] 1 puff NEB Q6HR 02/12/21 Gabapentin 300 mg PO BID 02/12/21 Hydrocodone/Acetaminophen [Hydrocodone-Acetamin 10-325 mg] 1 each PO Q4HP PRN 02/12/21 Lactulose 20 gm PO BID 02/12/21 Ropinirole HCl 5 mg PO DAILY 02/12/21 Sevelamer Carbonate 1 tab PO DAILY 02/12/21 Tizanidine [Zanaflex*] 4 mg PO BID 02/12/21 cloNIDine HCL [Catapres*] 1 tab PO TID 02/12/21 Carvedilol [Coreg] 12.5 mg PO BID #60 tablet 02/13/21 Lisinopril [Zestril] 40 mg PO DAILY #30 tablet 02/13/21 Mometasone/Formoterol [Dulera 100 Mcg/5 Mcg Inhaler] 2 puff IH BID #1 inhaler 02/13/21 Pantoprazole [Protonix Tab] 40 mg PO DAILY #30 tab 02/13/21 New Medications: Carvedilol [Coreg] 12.5 mg PO BID #60 tablet Mometasone/Formoterol [Dulera 100 Mcg/5 Mcg Inhaler] 2 puff IH BID #1 inhaler Pantoprazole [Protonix Tab] 40 mg PO DAILY #30 tab Lisinopril [Zestril] 40 mg PO DAILY #30 tablet Physician Discharge Instructions: Patient presented with bradycardia, hyperkalemia secondary to end-stage renal disease on hemodialysis with poor compliance. Patient admitted for treatment. Patient received dialysis with improvement. Compliance with dialysis was addressed in detail. Patient reported noncompliance due to his chronic back pain. Medications restarted. Patient has significantly improved. At discharge compliance with dialysis addressed in detail. Patient will continue with dialysis every Monday, Monday and Monday. Patient will continue with Sevelamer 800 mg daily and folic acid 1 mg daily. Recommend follow-up with nephrology in 1 week to follow-up his hospitalization. Recommend to recheck labBMP in 1 week. Recommend follow-up with PCP in 1 week to follow-up this hospitalization as well. Patient reported increased back pain and generalized weakness. Patient with history of degenerative disc and joint disease. Patient with history of spinal stimulator. Home medications restarted. Pain improved. Patient was evaluated by physical therapy. Consideration for skilled placement was addressed. Patient prefers home health and physical therapy. Home health and physical therapy will be arranged at discharge. At discharge patient will continue with his current medications of Zanaflex 4 mg twice daily as needed for muscle spasm, gabapentin 300 mg 1 pill twice daily, and hydrocodone as needed for pain. Patient is seen by pain management in [place]. Recommend follow-up with pain management in 1 to 2 weeks to continue his care. Patient with diabetes mellitus type 2. Blood sugar well controlled. Previous A1c 5.8 in July 2020. Recommend to recheck hemoglobin A1c in 1 week to monitor h is progress. Continue with ADA diet. Recommend to maintain blood sugar less than 140 fasting and less than 200 after meals. Recommend follow-up with PCP to further monitor and address. Patient with hypertension. Blood pressure was uncontrolled. Patient reports blood pressure is not well controlled at home. This improved with dialysis and adjustment in his medication. Lisinopril was increased for better control. Carvedilol was added. At discharge patient will continue with lisinopril 40 mg daily, clonidine 0.3 mg 3 times a day, and carvedilol 12.5 mg 1 pill twice daily. Recommend to maintain blood pressure less than 130/80. If blood pressure remains above 140/90 additional medication may be required. This can be done with the help of his PCP or nephrology. Patient with COPD. At discharge patient may continue with Dulera 2 puff twice daily and albuterol 2 puffs 3 times a day as needed for shortness of breath. Patient with underlying GERD. Patient may continue with Protonix 40 mg daily. Patient with restless leg syndrome. At discharge patient will continue with Requip 5 mg daily. Patient with anemia of chronic disease with chronic thrombocytopenia. This can be monitored closely as an outpatient. Recommend no further use of nonsteroidal anti-inflammatories. Recheck CBC in 2 to 4 weeks to monitor his progress. Patient with chronic liver cirrhosis. Overall stable. This can be monitored as an outpatient. Recommend follow-up with GI as an outpatient. No further alcohol use is recommended. At discharge patient will continue with lactulose twice daily to maintain 2-3 bowel movements per day. Diet: ADA Activity: Fall precautions Followup: NONE,NONE [Primary Care Provider] - Time spent managing pt's care (in minutes): 55
--- NOTE | 2021-02-13 23:23 | PN ---
Date of Progress Note: 02/13/2021 Chief Complaint: End-stage renal disease secondary to diabetes mellitus, hypertension, on dialysis M , Monday, and Monday. Subjective: The patient has history of GERD, COPD, chronic back pain. He came to the hospital after he needs dialysis because of back pain. He received dialysis. Also hyperkalemia, potassium level h as improved today. Potassium within normal limits. Review of Systems: Denies fever or chills. Objective: Lungs: Clear to auscultation bilaterally. Heart: S1, S2. Abdomen: Soft, benign. Extremities: No edema. Impression And Plan: 1.End-stage renal disease. Continue dialysis 3 times per week. 2.Hypertension. Blood pressure controlled. Monitor blood pressure. Continue current blood pressur e medication. 3.Peripheral neuropathy. Continue gabapentin. 4.History of chronic back pain. Patient will follow up with Pain Management. 5.Anemia of chronic kidney disease. Monitor hemoglobin level. Adjust DEXTER as needed. CYNDI/TESSL Voice ID: [id number] Report ID: [id number]
[2021-02-14 05:28] LABS: Absolute Lymphocytes (CBC) 0.8 K/uL (0.7-4.9); Hematocrit 28.3 % (39.6-49.0); Lymphocytes % 17.2 % (15.3-44.8); MPV 8.4 fL (7.6-11.3); RBC Red Blood Cell Count 2.94 M/uL (4.33-5.43)
[2021-02-14] MEDS: PANTOPRAZOLE 40MG TABLET PO SCH (05:52)
[2021-02-14 05:58] LABS: AST/SGOT 9 U/L (15-37); Alkaline Phosphatase 120 U/L (45-117); BUN Blood Urea Nitrogen 42 mg/dL (7-18); Bicarbonate 27 mmol/L (21-32); Bilirubin Total 0.8 mg/dL (0.2-1.0); Glucose Level 92 mg/dL (74-106); Magnesium 2.6 mg/dL (1.8-2.4); Potassium 4.1 mmol/L (3.5-5.1); Protein, Total 6.1 g/dL (6.4-8.2); Sodium Level 138 mmol/L (136-145)
[2021-02-14 05:59] LABS: ALT/SGPT < 6 U/L (12-78)
--- NOTE | 2021-02-14 06:26 | P.PN ---
Subjective Date of Service: 02/14/21 Primary Care Provider: None, nephrology Dr. Rand Chief Complaint: Hyperkalemia Subjective: Other (Discharge was held yesterday as the patient changed his mind, instead of going home with home health and physical therapy the patient prefers to go to a skilled facility.) Physical Examination - Vital Signs Temperature: 97.2 F Blood Pressure: 124/55 Pulse: 53 Respirations: 18 Pulse Ox (%): 97 Assessment & Plan Discharge Plan: Other (penitentiary facility) Plan to discharge in: 48 Hours Physician Review Additional Text: COVID: negative CXR: COMPARISON: January 22 TECHNIQUE: AP portable chest image was obtained 02/11/2021 10:02 pm . FINDINGS: No peripheral mass or consolidation. Interstitial pattern matches comparison. Scattered granulomatous calcifications are seen. Prominent, stable cardiomegaly is present. Central vasculature is mildly prominent. No significant or progressive failure or volume overload since January 22. Trachea is in midline. Neurostimulator device in place. No measurable pleural effusion and no pneumothorax. No acute bony abnormality seen. No acute aortic findings suspected. IMPRESSION: No new or progressive lung parenchymal process. Stable cardiomegaly and mild vascular engorgement. Physical exam: General: Alert, In no apparent distress, Oriented x3 HEENT: Neck supple Respiratory: Clear to auscultation bilaterally, Normal air movement Cardiovascular: Normal sinus rhythm Capillary refill: <2 Seconds Gastrointestinal: Normal bowel sounds, No tenderness Musculoskeletal: No tenderness Integumentary: No rashes Neurological: Good strength throughout. Patient sitting in bed. Impression: Bradycardia, hyperkalemia secondary to ESRD on HD with medical noncompliance Medical debility secondary to chronic back pain, generalized weakness Diabetes mellitus type 2 with hypoglycemia Hypertension COPD GERD RLS Plan: Bradycardia, hyperkalemia secondary to ESRD on HD with medical noncompliance: Patient had dialysis yesterday. Patient doing well. Continue with dialysis every Monday, Monday and Monday. Continue with current medication Sevelamer 800 mg daily and folic acid 1 mg daily. Compliance with dialysis addressed in detail. Patient was to be discharged yesterday home with home health but patient has decided to pursue skilled placement. Will have physical therapy evaluate for skilled placement. home health care social worker consulted to help arrange this. Anticipate discharge to skilled placement in the next 1 to 2 days. I will turn the service over to the hospitalist team tomorrow. I will go plan of care with him. Medical debility secondary to chronic back pain, generalized weakness: Pain appears controlled. Continue physical therapy. Arrange for skilled placement. Continue with current medication for pain. Currently on Zanaflex 4 mg twice daily as needed for muscle spasm, gabapentin 300 mg 1 pill twice daily, and hydrocodone as needed for pain. Patient is seen by pain management in [place]. Diabetes mellitus type 2 with hypoglycemia: Continue Accu-Cheks and sliding scale. Previous A1c 5.8 in July 2020. Hypertension: Blood pressure improved. Patient now on lisinopril 40 mg daily, clonidine 0.3 mg 3 times a day, and carvedilol 12.5 mg 1 pill twice daily. Continue to adjust medication. COPD: Continue with COPD medicationDulera and albuterol. GERD: Continue with Protonix 40 mg daily RLS: Continue with Requip 5 mg daily DVT PPX: Heparin Code status: Full code Discharge Plan: Case discussed at length with patient. Will pursue skilled placement. Time Spent Managing Pts Care (In Minutes): 55
[2021-02-14] MEDS: INSULIN -REGULAR HUMAN 50 UNIT/0.5 ML ML SQ SCH ×4 (07:30→21:00)
[2021-02-14 08:01] LABS: Anisocytosis 1+; Blood Morphology Comment NOTED (NOT SEEN); Platelet Estimate DECR; White Blood Cell Scan OK (OK)
[2021-02-14] MEDS: DULERA 100/5 (MOMETASONE/FORMOTEROL) INHALER IH SCH ×2 (09:00→21:00)
[2021-02-14] MEDS: MULTIVITAMINS,THERAPEUT 1 TAB PO SCH (09:35)
[2021-02-14] MEDS: ROPINIROLE HCL 1 MG TAB PO SCH (09:35)
[2021-02-14] MEDS: carvediloL 6.25 MG TAB PO SCH (09:36)
[2021-02-14] MEDS: lisinopriL 20 MG TAB PO SCH (09:36)
[2021-02-14] MEDS: FOLIC ACID 1 MG TABLET PO SCH (09:36)
[2021-02-14] MEDS: SEVELAMER CARBONATE 800 MG TABLET PO SCH (09:36)
[2021-02-14] MEDS: CLONIDINE HCL 0.3 MG TAB PO SCH ×3 (09:37→22:02)
[2021-02-14] MEDS: GABAPENTIN 300 MG CAP PO SCH ×2 (09:37→22:01)
--- NOTE | 2021-02-14 20:30 | PN ---
Date of Progress Note: 02/14/2021 Chief Complaint: End-stage renal disease secondary to diabetes mellitus, hypertension. The patient is on dialysis on Monday, Monday, and Monday. The patient denies fever, chills. Denies nausea, vomiting. Physical Examination: Lungs: Clear to auscultation bilaterally. Heart: S1, S2. Abdomen: Soft, benign. Extremities: Slight edema. Impression And Plan: 1.End-stage renal disease. Continue dialysis 3 times per week. 2.Hypertension. Blood pressure is elevated. The patient will be medicated for accelerated hyperten robina. 3.Peripheral neuropathy. Continue gabapentin. 4.History of chronic pain. The patient may need pain management. 5.Anemia of chronic kidney disease. Continue DEXTER. Adjust treatment according to hemoglobin level. CYNDI/DHRUV Voice ID: [id number] Report ID: [id number]
[2021-02-14] MEDS: HYDRALAZINE HCL 20 MG/ML VIAL IV PRN (22:02)
[2021-02-15] MEDS: HYDROCODONE/APAP 10/325 TAB PO PRN ×2 (03:13→09:26)
[2021-02-15] MEDS: PANTOPRAZOLE 40MG TABLET PO SCH (05:50)
[2021-02-15 06:19] LABS: Absolute Lymphocytes (CBC) 0.7 K/uL (0.7-4.9); Hematocrit 28.2 % (39.6-49.0); Lymphocytes % 10.6 % (15.3-44.8); MPV 9.2 fL (7.6-11.3); RBC Red Blood Cell Count 2.94 M/uL (4.33-5.43)
[2021-02-15 06:39] LABS: AST/SGOT 9 U/L (15-37); Albumin 2.1 g/dL (3.4-5.0); Alkaline Phosphatase 113 U/L (45-117); BUN Blood Urea Nitrogen 51 mg/dL (7-18); Bicarbonate 27 mmol/L (21-32); Glucose Level 117 mg/dL (74-106); Magnesium 2.6 mg/dL (1.8-2.4); Potassium 4.3 mmol/L (3.5-5.1); Protein, Total 6.3 g/dL (6.4-8.2); Sodium Level 138 mmol/L (136-145)
[2021-02-15 06:45] LABS: ALT/SGPT < 6 U/L (12-78)
[2021-02-15] MEDS: INSULIN -REGULAR HUMAN 50 UNIT/0.5 ML ML SQ SCH ×4 (07:30→20:54)
[2021-02-15] MEDS: DULERA 100/5 (MOMETASONE/FORMOTEROL) INHALER IH SCH ×2 (09:00→20:54)
[2021-02-15] MEDS: carvediloL 6.25 MG TAB PO SCH ×2 (09:25→18:42)
[2021-02-15] MEDS: SEVELAMER CARBONATE 800 MG TABLET PO SCH (09:25)
[2021-02-15] MEDS: CLONIDINE HCL 0.3 MG TAB PO SCH ×3 (09:25→20:53)
[2021-02-15] MEDS: GABAPENTIN 300 MG CAP PO SCH ×3 (09:26→21:00)
[2021-02-15] MEDS: MULTIVITAMINS,THERAPEUT 1 TAB PO SCH (09:26)
[2021-02-15] MEDS: FOLIC ACID 1 MG TABLET PO SCH (09:26)
[2021-02-15] MEDS: ROPINIROLE HCL 1 MG TAB PO SCH (09:26)
[2021-02-15] MEDS: lisinopriL 20 MG TAB PO SCH (09:27)
[2021-02-15] MEDS: HYDRALAZINE HCL 20 MG/ML VIAL IV PRN (13:15)
--- NOTE | 2021-02-15 20:50 | PN ---
Date of Progress Note: 02/15/2021 Chief Complaint: End-stage renal disease secondary to diabetes mellitus and hypertension. Subjective: The patient is on dialysis and has been dialyzed on Monday, Monday, Monday. Review of Systems: Complains of generalized pain. Denies fever or chills. Objective: Lungs: Clear to auscultation bilaterally. Heart: S1, S2. Abdomen: Soft, benign. Extremities: Slight edema. Impression: 1.End-stage renal, dialysis today with ultrafiltration. Monitor blood pressure during dialysis. 2.Hypertension. Blood pressure is elevated. Patient will be medicated for accelerated hypertension . Medication dose adjusted. Blood pressure during dialysis although is stable. 3.Peripheral neuropathy. Continue gabapentin. 4.History of chronic pain. Patient may need pain management. 5.Anemia of chronic kidney disease. Continue DEXTER. Adjust treatment according to hemoglobin level. CYNDI/DHRUV Voice ID: [id number] Report ID: [id number]
[2021-02-16] MEDS: lisinopriL 20 MG TAB PO SCH ×2 (04:21→10:27)
[2021-02-16 05:57] LABS: Absolute Lymphocytes (CBC) 0.7 K/uL (0.7-4.9); Hematocrit 28.9 % (39.6-49.0); Lymphocytes % 11.5 % (15.3-44.8); MPV 8.8 fL (7.6-11.3); RBC Red Blood Cell Count 3.01 M/uL (4.33-5.43)
[2021-02-16 06:14] LABS: ALT/SGPT < 6 U/L (12-78); AST/SGOT 11 U/L (15-37); Albumin 2.1 g/dL (3.4-5.0); Alkaline Phosphatase 112 U/L (45-117); BUN Blood Urea Nitrogen 31 mg/dL (7-18); Bicarbonate 26 mmol/L (21-32); Bilirubin Total 0.9 mg/dL (0.2-1.0); Glucose Level 96 mg/dL (74-106); Magnesium 2.5 mg/dL (1.8-2.4); Potassium 4.1 mmol/L (3.5-5.1); Protein, Total 6.5 g/dL (6.4-8.2); Sodium Level 136 mmol/L (136-145)
[2021-02-16] MEDS: PANTOPRAZOLE 40MG TABLET PO SCH (06:42)
[2021-02-16 07:24] LABS: Blood Morphology Comment NOT SEEN (NOT SEEN); Platelet Estimate DECR; White Blood Cell Scan OK (OK)
[2021-02-16] MEDS: INSULIN -REGULAR HUMAN 50 UNIT/0.5 ML ML SQ SCH ×4 (07:30→21:00)
[2021-02-16] MEDS: SEVELAMER CARBONATE 800 MG TABLET PO SCH (08:00)
--- NOTE | 2021-02-16 08:34 | P.PN ---
Subjective Date of Service: 02/16/21 Primary Care Provider: None, nephrology Dr. Rand Chief Complaint: Hyperkalemia Subjective: No new changes Physical Examination - Vital Signs Temperature: 96.4 F Blood Pressure: 143/60 Pulse: 54 Respirations: 17 Pulse Ox (%): 96 - Physical Exam General: Other (appears chronically ill) HEENT: Atraumatic, Normocephalic Neck: Supple Respiratory: Other (symmetric chest expansion) Cardiovascular: No rubs, No murmurs Gastrointestinal: Soft and benign, No guarding Musculoskeletal: No clubbing Integumentary: No warmth Neurological: Normal tone Urinary: Other (no bladder distention) External genitalia: Deferred Rectal: Deferred Assessment And Plan - Plan # ESRD presumed to be 2/2 DM/Htn on HD MWF at [facility] HD tomorrow HD access: LA AVG EDW: 59 kgs Renal + DM diet Nephro-yani po daily Monitor renal panel # Hyperkalemia Resolved HD + renal diet as above # Htn Cont current BP med regimen # Anemia, thrombocytopenia Monitor CBC # COPD Per primary team # Chronic back pain Per primary team # Dispo Dc to [facility]
[2021-02-16] MEDS: DULERA 100/5 (MOMETASONE/FORMOTEROL) INHALER IH SCH ×2 (09:00→21:00)
[2021-02-16] MEDS: GABAPENTIN 300 MG CAP PO SCH ×2 (10:27→21:07)
[2021-02-16] MEDS: MULTIVITAMINS,THERAPEUT 1 TAB PO SCH (10:27)
[2021-02-16] MEDS: ROPINIROLE HCL 1 MG TAB PO SCH (10:27)
[2021-02-16] MEDS: FOLIC ACID 1 MG TABLET PO SCH (10:27)
[2021-02-16] MEDS: CLONIDINE HCL 0.3 MG TAB PO SCH ×3 (10:28→21:07)
[2021-02-16] MEDS: carvediloL 6.25 MG TAB PO SCH ×2 (10:30→18:55)
[2021-02-16] MEDS: HYDROCODONE/APAP 10/325 TAB PO PRN (21:06)
[2021-02-17] MEDS: PANTOPRAZOLE 40MG TABLET PO SCH (05:19)
[2021-02-17] MEDS: lisinopriL 20 MG TAB PO SCH (05:20)
[2021-02-17 06:44] LABS: Hematocrit 29.2 % (39.6-49.0); Lymphocytes % 13.5 % (15.3-44.8); MPV 9.3 fL (7.6-11.3); RBC Red Blood Cell Count 3.02 M/uL (4.33-5.43)
[2021-02-17 07:04] LABS: Magnesium 2.5 mg/dL (1.8-2.4); Phosphorus 6.3 mg/dL (2.5-4.9); Potassium 4.1 mmol/L (3.5-5.1)
[2021-02-17] MEDS: INSULIN -REGULAR HUMAN 50 UNIT/0.5 ML ML SQ SCH ×4 (07:30→21:00)
[2021-02-17] MEDS: GABAPENTIN 300 MG CAP PO SCH ×2 (08:50→21:30)
[2021-02-17] MEDS: SEVELAMER CARBONATE 800 MG TABLET PO SCH ×3 (08:50→17:00)
[2021-02-17] MEDS: MULTIVITAMINS,THERAPEUT 1 TAB PO SCH (08:50)
[2021-02-17] MEDS: ROPINIROLE HCL 1 MG TAB PO SCH (08:50)
[2021-02-17] MEDS: CLONIDINE HCL 0.3 MG TAB PO SCH ×3 (08:50→21:29)
[2021-02-17] MEDS: carvediloL 6.25 MG TAB PO SCH ×2 (08:50→18:36)
[2021-02-17] MEDS: FOLIC ACID 1 MG TABLET PO SCH (08:50)
[2021-02-17] MEDS: HYDROCODONE/APAP 10/325 TAB PO PRN (08:51)
[2021-02-17] MEDS: DULERA 100/5 (MOMETASONE/FORMOTEROL) INHALER IH SCH ×2 (09:00→21:00)
--- NOTE | 2021-02-17 11:48 | PN ---
Date of Progress Note: 02/17/2021 Subjective: The patient is complaining of low back pain. The patient came with low back pain. The patient had chronic low back pain, being treated with [facility]. Physical Examination: Vital Signs: Blood pressure 158/96, pulse of 82, afebrile. The patient had dialysis yesterday. Chest: Faint thrills on the left base. Heart: S1 and S2 systolic murmur. Abdomen: Soft and nontender. Extremities: No edema. Neuro: Alert. No focality. Tenderness on the lower spine. Laboratory Data: H and H 9.3/29.2. Sodium 139, potassium 4.1, bicarb 28, BUN 36, creatinine 7.2, calcium 8.3, phosphorus 6.3, magnesium 2.5, albumin 2, and corrected calcium 9.9. Current Medications: Include carvedilol 25 b.i.d., clonidine 0.3 t.i.d., lisinopril 40, gabapentin 300 b.i.d., Requip, Renvela 800 daily, Pantoprazole, Zofran, hydrocodone, and tramadol. Assessment And Plan: 1. End-stage renal disease. We will continue the patient on dialysis TTS. We will schedule the patient for dialysis tomorrow. 2. Hypertension, controlled, optimal. Continue current treatment. 3. Over volume, resolved. Continue back dialysis 3 times a week. 4. Hyperkalemia, status post dialysis, resolved. 5. Anemia of chronic kidney disease, resume DEXTER. 6. Secondary hyperparathyroid, increased Renvela. 7. Low back pain. We will proceed with spinal x-ray to evaluate and we will follow up. time spend exam the patient face to face , placing order , review the date lab and radiology , discussed the case with warehouse team member including nursing , and other documentum consultant and hospitalist 45 min COURTNEY Voice ID: [id number] Report ID: [id number] DIPTI
--- NOTE | 2021-02-17 12:19 | RAD REPORT ---
EXAM DESCRIPTION: RAD - Lumbar Spine 3 Views - 02/17/2021 11:27 am CLINICAL HISTORY: back pain COMPARISON: Lumbar Spine 3 Views dated 11/08/2019; Spine Lumbar Wo Con dated 11/10/2020 FINDINGS: Status post L4 through S1 radha and pedicle screw fusion. Interbody spacers are present. Re- demonstrated compression deformities at L2 and L3 with pronounced endplate irregularity. Slight incr ease compression deformity at L1 could represent an acute compression fracture. There is less than 20 % loss of height anteriorly. Spinal stimulator. Atherosclerosis. Intramedullary radha in the left femur noted. Osteopenia limits evaluation of the osseous structures. Sacrum not well evaluated due to over lying bowel contents as well. Scoliosis. IMPRESSION: 1. Increased L1 compression deformity could represent an acute compression fracture. Les s than 20% loss of height is noted anteriorly. 2. Status post L4 through S1 fusion without evidence of hardware complications. 3. Advanced degenerative changes are again noted at L2-3 with with both compression deformities insig nificant endplate irregularity.
--- NOTE | 2021-02-17 13:26 | RAD REPORT ---
EXAM DESCRIPTION: US - Upper Lower Extrem Art Multi - 02/17/2021 12:50 pm CLINICAL HISTORY: Leg pain COMPARISON: None FINDINGS: The ankle arteries could not be occluded so ankle-brachial indices could not be obtained. Arteries are heavily calcified. Marked calcified plaque right common femoral artery results in a high-grade stenosis. Calcified plaqu e involves remainder of the right lower extremity arteries. Monophasic waveform superficial femoral a nd popliteal arteries. Flow within the right posterior tibial artery not noted. Waveforms of the left common femoral and left superficial femoral artery are generally monophasic. High-grade stenosis within the left popliteal artery seen. Flow within left posterior tibial artery not noted. Diminished monophasic and waveforms left dorsalis pedis artery IMPRESSION: High-grade stenosis right common femoral artery High-grade stenosis left popliteal artery
[2021-02-17] MEDS: HYDRALAZINE HCL 20 MG/ML VIAL IV PRN (17:01)
--- NOTE | 2021-02-18 00:51 | P.PN ---
Subjective Date of Service: 02/15/21 Subjective: Improving Awaiting placement; Hyperkalemia is corrected. Fluid overload has been resolved. patient with numerous comorbidities. Patient with vasculopathy. Poorly-controlled diabetes with numerous complications. patient difficulty seeing; ESRD; will go to SNF once patient is accepted. Review of Systems 10-point ROS is otherwise unremarkable Physical Examination - Vital Signs Temperature: 97.6 F Blood Pressure: 172/73 Pulse: 60 Respirations: 16 Pulse Ox (%): 94 - Physical Exam General: Alert, In no apparent distress HEENT: Atraumatic, PERRLA, EOMI Neck: Supple, JVD not distended Respiratory: Clear to auscultation bilaterally, Normal air movement Cardiovascular: Regular rate/rhythm, Normal S1 S2, Systolic murmur Gastrointestinal: Normal bowel sounds, Soft and benign, Non-distended, No tenderness Musculoskeletal: No clubbing, No swelling Integumentary: Skin lesion, Arterial ulcer Neurological: Normal speech, Normal strength at 5/5 x4 extr, Cranial nerves 3-12 intact, Abnormal sensation - Studies Microbiology Data (last 24 hrs): 02/11/21 21:50 Blood - Blood Aerobic Blood Culture - Final No growth in 5 days. 02/11/21 21:50 Blood - Blood Anaerobic Blood Culture - Final No growth in 5 days. 02/11/21 21:35 Blood - Blood Aerobic Blood Culture - Final No growth in 5 days. 02/11/21 21:35 Blood - Blood Anaerobic Blood Culture - Final No growth in 5 days. Medications List Reviewed: Yes Assessment & Plan - Problems (Diagnosis) (1) Volume overload Current Visit: Yes Status: Acute (2) Hyperkalemia Current Visit: Yes Status: Acute (3) COPD exacerbation Current Visit: No Status: Acute (4) CVA (cerebrovascular accident) Current Visit: No Status: Acute (5) Peripheral arterial disease Current Visit: No Status: Acute (6) CHF (congestive heart failure) Current Visit: No Status: Chronic Qualifiers: Heart failure type: unspecified Heart failure chronicity: chronic Qualified Code(s): I50.9 - Heart failure, unspecified (7) COPD (chronic obstructive pulmonary disease) Current Visit: No Status: Chronic (8) End stage renal disease Current Visit: No Status: Chronic (9) HLD (hyperlipidemia) Current Visit: No Status: Chronic Qualifiers: Hyperlipidemia type: unspecified Qualified Code(s): E78.5 - Hyperlipidemia, unspecified (10) Hypertension Current Visit: No Status: Chronic Qualifiers: Hypertension type: essential hypertension (11) Foot ulcer, left Current Visit: No Status: Resolved - Plan Plan: 1. Continue hemodialysis per Nephrology 2. Awaiting for alf placement 3. Continue with antibiotic therapy 4. Strict blood pressure and blood sugar control 5. Physical therapy evaluation 6. Arterial Doppler 7. Monitor labs closely 8. GI and DVT prophylaxis Discharge Plan: Home Plan to discharge in: Greater than 2 days - Advance Directives Does patient have a Living Will: No Does patient have a Durable POA for Healthcare: No - Code Status/Comfort Care Code Status Assessed: Yes Code Status: Full Code Critical Care: No Time Spent Managing PTS Care (In Minutes): 35
[2021-02-18] MEDS: PANTOPRAZOLE 40MG TABLET PO SCH (06:30)
[2021-02-18] MEDS: INSULIN -REGULAR HUMAN 50 UNIT/0.5 ML ML SQ SCH ×4 (07:30→20:42)
--- NOTE | 2021-02-18 07:54 | P.PN ---
Date of Service: 02/16/21 Subjective Awaiting placement; Hyperkalemia is corrected. Fluid overload has been resolved. patient with numerous comorbidities. Patient with vasculopathy. Poorly-controlled diabetes with numerous complications. patient difficulty seeing; ESRD; will go to SNF once patient is accepted. Plan is to do a arterial Doppler which is pending. Review of Systems 10-point ROS is otherwise unremarkable Physical Examination - Vital Signs Reviewed - Physical Exam General: Alert, In no apparent distress Respiratory: Clear to auscultation bilaterally, Normal air movement Cardiovascular: Regular rate/rhythm, Normal S1 S2, Systolic murmur Gastrointestinal: Normal bowel sounds, Soft and benign, Non-distended, No tender ness Musculoskeletal: No clubbing, No swelling Integumentary: Skin lesion, Arterial ulcer Neurological: Normal speech, Normal strength at 5/5 x4 extr, Cranial nerves 3-12 intact, Abnormal sensation Assessment & Plan - Problems (Diagnosis) (1) Volume overload Current Visit: Yes Status: Acute (2) Hyperkalemia Current Visit: Yes Status: Acute (3) COPD exacerbation Current Visit: No Status: Acute (4) CVA (cerebrovascular accident) Current Visit: No Status: Acute (5) Peripheral arterial disease Current Visit: No Status: Acute (6) CHF (congestive heart failure) Current Visit: No Status: Chronic Qualifiers: Heart failure type: unspecified Heart failure chronicity: chronic Qualified Code(s): I50.9 - Heart failure, unspecified (7) COPD (chronic obstructive pulmonary disease) Current Visit: No Status: Chronic (8) End stage renal disease Current Visit: No Status: Chronic (9) HLD (hyperlipidemia) Current Visit: No Status: Chronic Qualifiers: Hyperlipidemia type: unspecified Qualified Code(s): E78.5 - Hyperlipidemia, unspecified (10) Hypertension Current Visit: No Status: Chronic Qualifiers: Hypertension type: essential hypertension (11) Foot ulcer, left Current Visit: No Status: Resolved - Plan Continue with plan of care as mentioned below: 1. Continue hemodialysis per Nephrology 2. Awaiting for fdc placement 3. Continue with antibiotic therapy 4. Strict blood pressure and blood sugar control 5. Physical therapy evaluation 6. Arterial Doppler pending 7. Monitor labs closely 8. GI and DVT prophylaxis Discharge Plan: Home Plan to discharge in: Greater than 2 days - Advance Directives Does patient have a Living Will: No Does patient have a Durable POA for Healthcare: No - Code Status/Comfort Care Code Status Assessed: Yes Code Status: Full Code Critical Care: No Time Spent Managing PTS Care (In Minutes): 35
--- NOTE | 2021-02-18 07:55 | P.PN ---
Date of Service: 02/17/21 Subjective Arterial Doppler with peripheral arterial disease. Revealed significant stenosis in the right femoral & the left popliteal.Patient appears to have collaterals. CT scan to evaluate for full arterial disease pending for in the morning. Cardiology aware of the patient and possible arteriogram with stent placement. Awaiting placement; Hyperkalemia is corrected. Fluid overload has been resolved. patient with numerous comorbidities. Patient with vasculopathy. Poorly-controlled diabetes with numerous complications. patient difficulty seeing; ESRD; will go to SNF once patient is accepted. Plan is to do a arterial Doppler which is pending. Review of Systems 10-point ROS is otherwise unremarkable Physical Examination - Vital Signs Reviewed - Physical Exam General: Alert, In no apparent distress Respiratory: Clear to auscultation bilaterally, Normal air movement Cardiovascular: Regular rate/rhythm, Normal S1 S2, Systolic murmur Gastrointestinal: Normal bowel sounds, Soft and benign, Non-distended, No tenderness Musculoskeletal: No clubbing, No swelling Integumentary: Skin lesion, Arterial ulcer Neurological: Normal speech, Normal strength at 5/5 x4 extr, Cranial nerves 3-12 intact, Abnormal sensation Assessment & Plan - Problems (Diagnosis) (1) Volume overload Current Visit: Yes Status: Acute (2) Hyperkalemia Current Visit: Yes Status: Acute (3) COPD exacerbation Current Visit: No Status: Acute (4) CVA (cerebrovascular accident) Current Visit: No Status: Acute (5) Peripheral arterial disease Current Visit: No Status: Acute (6) CHF (congestive heart failure) Current Visit: No Status: Chronic Qualifiers: Heart failure type: unspecified Heart failure chronicity: chronic Qualified Code(s): I50.9 - Heart failure, unspecified (7) COPD (chronic obstructive pulmonary disease) Current Visit: No Status: Chronic (8) End stage renal disease Current Visit: No Status: Chronic (9) HLD (hyperlipidemia) Current Visit: No Status: Chronic Qualifiers: Hyperlipidemia type: unspecified Qualified Code(s): E78.5 - Hyperlipidemia, unspecified (10) Hypertension Current Visit: No Status: Chronic Qualifiers: Hypertension type: essential hypertension (11) Foot ulcer, left Current Visit: No Status: Resolved - Plan Continue with plan of care as mentioned below: 1. Continue hemodialysis per Nephrology 2. Awaiting for half-way placement 3. Continue with antibiotic therapy 4. Strict blood pressure and blood sugar control 5. Physical therapy evaluation 6. Arterial Doppler pending; continue with anti coagulation 7. Monitor labs closely 8. GI and DVT prophylaxis Discharge Plan: Home Plan to discharge in: Greater than 2 days - Advance Directives Does patient have a Living Will: No Does patient have a Durable POA for Healthcare: No - Code Status/Comfort Care Code Status Assessed: Yes Code Status: Full Code Critical Care: No Time Spent Managing PTS Care (In Minutes): 35
[2021-02-18] MEDS: SEVELAMER CARBONATE 800 MG TABLET PO SCH ×3 (08:00→17:00)
[2021-02-18] MEDS: DULERA 100/5 (MOMETASONE/FORMOTEROL) INHALER IH SCH ×2 (09:00→20:42)
[2021-02-18] MEDS ORDERED: MORPHINE 2 MG/ML SYR IV ONE (09:26)
--- NOTE | 2021-02-18 10:02 | RAD REPORT ---
EXAM DESCRIPTION: CT - Lower Ext Angio - 02/18/2021 9:09 am CLINICAL HISTORY: Peripheral vascular disease TECHNIQUE: One hundred cc Isovue 370 was administered intravenously. 3D MIP reconstruction performed All CT scans are performed using dose optimization technique as appropriate and may include automated exposure control or mA/KV adjustment according to patient size. FINDINGS: Mild to moderate calcified plaque is present within the abdominal aorta. Minimal thrombus is present. No aneurysm. Calcified plaque SMA results in a high-grade stenosis. Calcified plaque proximal left renal artery results in moderate grade stenosis. Mild to moderate calcified plaque within the common, internal and external carotid arteries. No high- grade stenosis. Calcified plaque right common femoral artery results in a moderate grade stenosis. Calcified plaque throughout the right superficial femoral artery resulting in multiple areas of moder ate stenosis. Mild to moderate plaque right popliteal artery without significant stenosis. Calcified plaque present throughout right posterior tibial, peroneal and anterior tibial arteries. Po rtions of right posterior tibial artery do not contain flow. Short segment moderate stenosis involves the proximal left superficial femoral artery. Mild to moderate areas of stenosis involves portions of the remainder of the left superficial femoral artery. Artifact from a knee prosthesis obscures portions of the popliteal artery. A moderate grade stenosis is seen. The left posterior tibial, peroneal and anterior tibial arteries contain calcification but are patent . IMPRESSION: High-grade stenosis superior mesenteric artery Moderate grade stenosis proximal left renal artery Moderate stenosis right common and right superficial femoral arteries Moderate stenosis proximal left superficial femoral artery Moderate stenosis left popliteal artery
--- NOTE | 2021-02-18 10:22 | P.PN ---
Subjective Date of Service: 02/18/21 Primary Care Provider: None, nephrology Dr. Rand Chief Complaint: Hyperkalemia Subjective: No new changes Physical Examination - Vital Signs Temperature: 98.1 F Blood Pressure: 137/58 Pulse: 62 Respirations: 16 Pulse Ox (%): 97 - Physical Exam General: Alert, In no apparent distress, Oriented x3 HEENT: Atraumatic, Normocephalic, PERRLA Respiratory: Clear to auscultation bilaterally, Normal air movement Cardiovascular: Normal pulses, Regular rate/rhythm, Normal S1 S2, Abnormal pulses Gastrointestinal: Normal bowel sounds, Soft and benign, Non-distended, No guarding Musculoskeletal: No clubbing, No swelling Integumentary: Arterial ulcer Neurological: Normal gait, Normal speech, Normal strength at 5/5 x4 extr - Studies Medications List Reviewed: Yes Assessment And Plan Physician Review Additional Text: CTA lower extremity High-grade stenosis superior mesenteric artery Moderate grade stenosis proximal left renal artery Moderate stenosis right common and right superficial femoral arteries Moderate stenosis proximal left superficial femoral artery Moderate stenosis left popliteal artery Impression: Bradycardia, hyperkalemia secondary to ESRD on HD with medical noncompliance Medical debility secondary to chronic back pain, generalized weakness Diabetes mellitus type 2 with hypoglycemia Hypertension COPD GERD RLS Bilateral lower extremity vascular stenosis Plan: Lower extremity stenosisCT finding with moderate left popliteal stenosis as well as left renal artery stenosis noted We defer to cardiology for possible intervention on left popliteal artery Since no GI symptoms may not need stenosis of superior mesenteric We will continue to follow End-stage renal diseasecontinue dialysis today Follow for placement Follow renal team Bradycardia, hyperkalemia secondary to ESRD on HD with medical noncompliance: Anticipate discharge to skilled placement in the next 1 to 2 days. Medical debility secondary to chronic back pain, generalized weakness: Pain appears controlled. Continue physical therapy. Currently on Zanaflex 4 mg twice daily as needed for muscle spasm, gabapentin 300 mg 1 pill twice daily, and hydrocodone as needed for pain. Patient is seen by pain management in [facility]. Diabetes mellitus type 2 with hypoglycemia: Continue Accu-Cheks and sliding scale. Previous A1c 5.8 in July 2020. Hypertension: Blood pressure improved. Patient now on lisinopril 40 mg daily, clonidine 0.3 mg 3 times a day, and carvedilol 12.5 mg 1 pill twice daily. Continue to adjust medication. COPD: Continue with COPD medicationDulera and albuterol. GERD: Continue with Protonix 40 mg daily RLS: Continue with Requip 5 mg daily DVT PPX: Heparin Code status: Full code Discharge Plan: Case discussed at length with patient. Will pursue skilled placement.
[2021-02-18] MEDS: GABAPENTIN 300 MG CAP PO SCH ×2 (10:26→20:23)
[2021-02-18] MEDS: carvediloL 6.25 MG TAB PO SCH ×2 (10:26→17:00)
[2021-02-18] MEDS: FOLIC ACID 1 MG TABLET PO SCH (10:26)
[2021-02-18] MEDS: ROPINIROLE HCL 1 MG TAB PO SCH (10:26)
[2021-02-18] MEDS: MULTIVITAMINS,THERAPEUT 1 TAB PO SCH (10:26)
[2021-02-18] MEDS: CLONIDINE HCL 0.3 MG TAB PO SCH ×3 (10:27→20:40)
[2021-02-18] MEDS: ENOXAPARIN 60 MG/0.6 ML SQ SCH (10:29)
[2021-02-18] MEDS: AMLODIPINE 10 MG TAB PO SCH (10:30)
[2021-02-18 11:31] LABS: Absolute Lymphocytes (CBC) 0.8 K/uL (0.7-4.9); Hematocrit 29.2 % (39.6-49.0); Lymphocytes % 8.4 % (15.3-44.8); MPV 9.3 fL (7.6-11.3); RBC Red Blood Cell Count 3.03 M/uL (4.33-5.43)
[2021-02-18 12:02] LABS: AST/SGOT 8 U/L (15-37); Albumin 2.1 g/dL (3.4-5.0); Alkaline Phosphatase 108 U/L (45-117); BUN Blood Urea Nitrogen 29 mg/dL (7-18); Bicarbonate 26 mmol/L (21-32); Glucose Level 106 mg/dL (74-106); Magnesium 2.4 mg/dL (1.8-2.4); Phosphorus 4.6 mg/dL (2.5-4.9); Potassium 3.8 mmol/L (3.5-5.1); Protein, Total 6.5 g/dL (6.4-8.2); Sodium Level 138 mmol/L (136-145)
[2021-02-18 12:19] LABS: ALT/SGPT < 6 U/L (12-78)
[2021-02-18 12:51] LABS: Platelet Estimate DECR; White Blood Cell Scan OK (OK)
[2021-02-18 12:53] LABS: Anisocytosis 1+; Blood Morphology Comment NOTED (NOT SEEN)
--- NOTE | 2021-02-18 13:45 | PN ---
Date of Progress Note: 02/18/2021 Subjective: The patient was admitted with hyperkalemia, low back pain. The patient found to have is chemic on the toes. The patient planned for angiogram as by the recommendation of Cardiology. The p atient is status post dialysis yesterday, tolerated the dialysis very well. Physical Examination: Vital Signs: Blood pressure 122/49, pulse of 60, afebrile. Chest: Clear to auscultation. Heart: S1, S2. Systolic murmur. Abdomen: Soft, nontender. Extremity: No edema. Gangrenous on the middle toe on the left leg. Laboratory Data: WBC 9.7, H and H 9.4/29.2. Sodium 138, potassium 3.8, bicarb 26, BUN 29, creatinin e 5.1, calcium 8.4, phosphorus 4.6, magnesium 2.4, albumin 2.1. Current Medications: The patient on include; 1.Lovenox. 2.Amlodipine 10 mg. 3.Carvedilol 25 b.i.d. 4.Clonidine 0.3 t.i.d. 5.Lisinopril. 6.Gabapentin. 7.Renvela. 8.Folic acid. Assessment And Plan: 1.End-stage renal disease. The patient is going to be exposed to contrast with angiogram today. We will do dialysis after the angio. 2.Hypertension, controlled, optimal. Continue current treatment. 3.Anemia of chronic kidney disease. Continue DEXTER. 4.Ischemic toe. We will follow up. After angiogram, we will do a CT. 5.Hyperkalemia, status post dialysis, resolved. YOUNG/DHRUV Voice ID: [id number] Report ID: [id number]
[2021-02-18] MEDS: MORPHINE 2 MG/ML SYR IV PRN (16:39)
[2021-02-19] MEDS: HYDRALAZINE HCL 20 MG/ML VIAL IV PRN ×2 (00:57→17:12)
--- NOTE | 2021-02-19 06:01 | P.PN ---
Subjective Date of Service: 02/19/21 Primary Care Provider: None, nephrology Dr. Rand Chief Complaint: Hyperkalemia Subjective: Other (Received HD today.) Physical Examination - Vital Signs Temperature: 99.2 F Blood Pressure: 189/90 Pulse: 19 Respirations: 61 Pulse Ox (%): 92 - Physical Exam General: Other (appears chronically ill) HEENT: Atraumatic, Normocephalic Neck: Supple Respiratory: Other (symmetric chest expansion) Cardiovascular: No rubs, No murmurs Gastrointestinal: Soft and benign, Non-distended Musculoskeletal: No clubbing Integumentary: No warmth Neurological: Normal tone Urinary: Other (no bladder distention) External genitalia: Deferred Rectal: Deferred - Studies Medications List Reviewed: Yes Assessment And Plan - Plan # ESRD presumed to be 2/2 DM/Htn on HD MWF at [facility] Received HD Th; next HD tomorrow Sat HD access: LA AVG EDW: 59 kgs Renal + DM diet Nephro-ayni po daily Monitor renal panel # Hyperkalemia Resolved HD + renal diet as above # Htn Cont current BP med regimen # Anemia, thrombocytopenia Monitor CBC # COPD Per primary team # Chronic back pain Per primary team # Dispo Dc to [facility]
[2021-02-19] MEDS: PANTOPRAZOLE 40MG TABLET PO SCH (06:43)
[2021-02-19] MEDS: INSULIN -REGULAR HUMAN 50 UNIT/0.5 ML ML SQ SCH ×4 (07:30→21:00)
[2021-02-19] MEDS: ROPINIROLE HCL 1 MG TAB PO SCH (08:51)
[2021-02-19] MEDS: MULTIVITAMINS,THERAPEUT 1 TAB PO SCH (08:51)
[2021-02-19] MEDS: FOLIC ACID 1 MG TABLET PO SCH (08:52)
[2021-02-19] MEDS: CLONIDINE HCL 0.3 MG TAB PO SCH ×3 (08:52→20:58)
[2021-02-19] MEDS: lisinopriL 20 MG TAB PO SCH (08:52)
[2021-02-19] MEDS: AMLODIPINE 10 MG TAB PO SCH (08:52)
[2021-02-19] MEDS: SEVELAMER CARBONATE 800 MG TABLET PO SCH ×3 (08:52→17:11)
[2021-02-19] MEDS: GABAPENTIN 300 MG CAP PO SCH ×2 (08:52→20:58)
[2021-02-19] MEDS: ENOXAPARIN 60 MG/0.6 ML SQ SCH (08:52)
[2021-02-19] MEDS: carvediloL 6.25 MG TAB PO SCH ×2 (08:53→16:44)
[2021-02-19] MEDS: DULERA 100/5 (MOMETASONE/FORMOTEROL) INHALER IH SCH ×2 (09:00→21:00)
[2021-02-19] MEDS: MORPHINE 2 MG/ML SYR IV PRN (12:11)
--- NOTE | 2021-02-19 12:43 | P.PN ---
Subjective Date of Service: 02/19/21 Primary Care Provider: None, nephrology Dr. Rand Chief Complaint: Hyperkalemia Subjective: New changes (Complaining of diarrhea today Staff reports dark stools Black stools appears to be worsening) Physical Examination - Vital Signs Temperature: 97.6 F Blood Pressure: 123/59 Pulse: 55 Respirations: 16 Pulse Ox (%): 92 - Physical Exam General: Alert, In no apparent distress, Oriented x3 HEENT: Atraumatic, Normocephalic, PERRLA Neck: Supple, 2+ carotid pulse no bruit, JVD not distended Respiratory: Clear to auscultation bilaterally, Normal air movement Cardiovascular: No edema, Regular rate/rhythm, Normal S1 S2 Gastrointestinal: Normal bowel sounds, Soft and benign, Non-distended Musculoskeletal: No clubbing, No swelling Integumentary: No rashes, No breakdown, No significant lesion Neurological: Normal speech, Normal strength at 5/5 x4 extr - Studies Medications List Reviewed: Yes Assessment And Plan - Current Problems (Diagnosis) (1) DM type 2 (diabetes mellitus, type 2) Current Visit: No Status: Acute (2) Dependence on renal dialysis Current Visit: No Status: Acute (3) CHF (congestive heart failure) Current Visit: No Status: Chronic Qualifiers: Heart failure type: unspecified Heart failure chronicity: chronic Qualified Code(s): I50.9 - Heart failure, unspecified (4) COPD (chronic obstructive pulmonary disease) Current Visit: No Status: Chronic (5) End stage renal disease Current Visit: No Status: Chronic (6) Hypertension Current Visit: No Status: Chronic Qualifiers: Hypertension type: essential hypertension (7) Ulcer of left great toe due to diabetes mellitus Current Visit: No Status: Resolved Physician Review: Patient Assessed, Agree with Above Assessment and Plan Physician Review Additional Text: CTA lower extremity High-grade stenosis superior mesenteric artery Moderate grade stenosis proximal left renal artery Moderate stenosis right common and right superficial femoral arteries Moderate stenosis proximal left superficial femoral artery Moderate stenosis left popliteal artery Impression: Bradycardia, hyperkalemia secondary to ESRD on HD with medical noncompliance Medical debility secondary to chronic back pain, generalized weakness Diabetes mellitus type 2 with hypoglycemia Hypertension COPD GERD RLS Bilateral lower extremity vascular stenosis Right toes gangrene Abdominal pain - with superior mesenteric artery Plan: Lower extremity stenosis stable toe gangrene We discussed with interventional cardiology for need for possible intervention on left popliteal artery -CT finding with moderate left popliteal stenosis as well as left renal artery stenosis noted -still persistent symptoms may not need stenosis of superior mesenteric - continue to follow End-stage renal diseasecontinue dialysis in am Follow renal team Bradycardia, hyperkalemia secondary to ESRD on HD with medical noncompliance: resolved Anticipate discharge to adjunct faculty for medical terminology placement Medical debility secondary to chronic back pain, generalized weakness: Pain appears controlled. Continue physical therapy. Patient is seen by pain management in [place]. Diabetes mellitus type 2 with hypoglycemia: Continue Accu-Cheks and sliding scale. Previous A1c 5.8 in July 2020. Hypertension: BP improved COPD: Continue with COPD medicationDulera and albuterol. GERD: Continue with Protonix 40 mg daily RLS: Continue with Requip 5 mg daily DVT PPX: s/p heparin Code status: Full code Discharge Plan: Case discussed at length with patient. Will pursue skilled placement. Time Spent Managing PTS Care (In Minutes): 35
[2021-02-20] MEDS: HYDRALAZINE HCL 20 MG/ML VIAL IV PRN ×3 (01:14→12:20)
[2021-02-20] MEDS: TIZANIDINE 4 MG TABLET PO PRN ×2 (04:52→21:51)
--- NOTE | 2021-02-20 06:20 | P.PN ---
Subjective Date of Service: 02/21/21 Primary Care Provider: None, nephrology Dr. Rand Chief Complaint: Hyperkalemia Subjective: Other (Received HD today.) Physical Examination - Vital Signs Temperature: 98.9 F Blood Pressure: 171/79 Pulse: 59 Respirations: 16 Pulse Ox (%): 94 - Physical Exam General: Other (chronically ill looking) HEENT: Atraumatic, Normocephalic Neck: Supple Respiratory: Other (symmetric chest expansion) Cardiovascular: No rubs, No murmurs Gastrointestinal: Soft and benign Musculoskeletal: No clubbing Integumentary: No warmth Neurological: Normal tone Urinary: Other (no bladder distention) External genitalia: Deferred Rectal: Deferred - Studies Medications List Reviewed: Yes Assessment And Plan - Plan # ESRD presumed to be 2/2 DM/Htn on HD MWF at [facility] Received HD today Next HD Mon HD access: LA AVG EDW: 59 kgs Renal + DM diet Nephro-yani po daily Monitor renal panel # Hyperkalemia Resolved HD + renal diet as above # Htn Cont current BP med regimen # Anemia, thrombocytopenia Monitor CBC # COPD Per primary team # Chronic back pain Per primary team # Dispo Dc to [facility] Physician Review: Patient Assessed, Agree with Above Assessment and Plan
[2021-02-20] MEDS: INSULIN -REGULAR HUMAN 50 UNIT/0.5 ML ML SQ SCH ×4 (07:30→21:00)
[2021-02-20] MEDS: DULERA 100/5 (MOMETASONE/FORMOTEROL) INHALER IH SCH ×2 (09:00→21:00)
[2021-02-20] MEDS: ROPINIROLE HCL 1 MG TAB PO SCH (09:20)
[2021-02-20] MEDS: MULTIVITAMINS,THERAPEUT 1 TAB PO SCH (09:20)
[2021-02-20] MEDS: SEVELAMER CARBONATE 800 MG TABLET PO SCH ×3 (09:21→17:10)
[2021-02-20] MEDS: PANTOPRAZOLE 40MG TABLET PO SCH (09:21)
[2021-02-20] MEDS: carvediloL 6.25 MG TAB PO SCH ×2 (09:21→17:00)
[2021-02-20] MEDS: lisinopriL 20 MG TAB PO SCH (09:21)
[2021-02-20] MEDS: MORPHINE 2 MG/ML SYR IV PRN ×2 (09:21→19:58)
[2021-02-20] MEDS: CLONIDINE HCL 0.3 MG TAB PO SCH ×3 (09:22→21:45)
[2021-02-20] MEDS: GABAPENTIN 300 MG CAP PO SCH ×2 (09:22→21:49)
[2021-02-20] MEDS: FOLIC ACID 1 MG TABLET PO SCH (09:22)
[2021-02-20] MEDS: AMLODIPINE 10 MG TAB PO SCH (09:22)
[2021-02-20] MEDS: ENOXAPARIN 60 MG/0.6 ML SQ SCH (09:23)
--- NOTE | 2021-02-20 12:48 | P.PN ---
Subjective Date of Service: 02/20/21 Primary Care Provider: None, nephrology Dr. Rand Chief Complaint: Hyperkalemia Subjective: Tolerating diet (, States diarrhea has resolved Complain of pain over the back Staff reports a run of atrial flutter today but heart rate re mained mainly bradycardic Patient complaining of marked weakness, states he does not have help at home and would like placement), New changes Physical Examination - Vital Signs Temperature: 98.3 F Blood Pressure: 181/74 Pulse: 53 Respirations: 16 Pulse Ox (%): 94 - Physical Exam General: Alert, In no apparent distress, Oriented x3, Cooperative, Cachectic HEENT: Atraumatic, Normocephalic, PERRLA Neck: Supple, 2+ carotid pulse no bruit, JVD not distended Respiratory: Normal air movement, Diminished Cardiovascular: No edema, Regular rate/rhythm, Normal S1 S2 Gastrointestinal: Normal bowel sounds, Soft and benign, Non-distended Musculoskeletal: No clubbing, No swelling Neurological: Normal speech, Normal tone Urinary: Dialysis catheter - Studies Medications List Reviewed: Yes Assessment And Plan - Current Problems (Diagnosis) (1) DM type 2 (diabetes mellitus, type 2) Current Visit: No Status: Acute (2) Dependence on renal dialysis Current Visit: No Status: Acute (3) CHF (congestive heart failure) Current Visit: No Status: Chronic Qualifiers: Heart failure type: unspecified Heart failure chronicity: chronic Qualified Code(s): I50.9 - Heart failure, unspecified (4) COPD (chronic obstructive pulmonary disease) Current Visit: No Status: Chronic (5) End stage renal disease Current Visit: No Status: Chronic (6) Hypertension Current Visit: No Status: Chronic Qualifiers: Hypertension type: essential hypertension Physician Review: Patient Assessed, Agree with Above Assessment and Plan Physician Review Additional Text: CTA lower extremity High-grade stenosis superior mesenteric artery Moderate grade stenosis proximal left renal artery Moderate stenosis right common and right superficial femoral arteries Moderate stenosis proximal left superficial femoral artery Moderate stenosis left popliteal artery Impression: Bradycardia, hyperkalemia secondary to ESRD on HD with medical noncompliance Medical debility secondary to chronic back pain, generalized weakness Diabetes mellitus type 2 with hypoglycemia Hypertension COPD GERD RLS Bilateral lower extremity vascular stenosis Right toes gangrene Abdominal pain - with superior mesenteric artery Plan: Lower extremity stenosisslightly worsening left LE middle 2nd and 3rd digit toes gangrene Will discussed with interventional cardiology for need for possible intervention on left popliteal artery -CT finding with moderate left popliteal stenosis as well as left renal artery stenosis noted -may also need stenosis of superior mesenteric artery intervention - continue to follow End-stage renal diseasecontinue dialysis today, follow potassium and magnesium level Follow renal team Bradycardia, hyperkalemia secondary to ESRD on HD with medical noncompliance: Now with intermittent atrial flutter Follow electrolytes today If within normal range, may need cardiology for tachybradycardia syndrome evaluation Medical debility secondary to chronic back pain, generalized weakness: Continue pain regimen Previously follows at pain clinic in [place] Presence of toe gangrene may also be causing patient persistent pain symptoms Continue physical therapy, poor ambulation Given weakness and lack of home health, may need SNF but due to insurance reasons appears will need long-term placement Case management consulted Diabetes mellitus type 2 with hypoglycemia: Continue Accu-Cheks and sliding scale. Previous A1c 5.8 in July 2020. Hypertension: BP elevated this morning, will adjust meds COPD: Continue with COPD medicationDulera and albuterol. GERD: Continue with Protonix 40 mg daily RLS: Continue with Requip 5 mg daily DVT PPX: s/p heparin Code status: Full code Discharge Plan: Case discussed at length with patient. Follow with long-term placement
[2021-02-20 13:15] LABS: Absolute Lymphocytes (CBC) 1.2 K/uL (0.7-4.9); Hematocrit 29.8 % (39.6-49.0); Lymphocytes % 10.1 % (15.3-44.8); MPV 8.9 fL (7.6-11.3)
[2021-02-20 13:24] LABS: Magnesium 2.3 mg/dL (1.8-2.4); Potassium 3.7 mmol/L (3.5-5.1)
[2021-02-20] MEDS ORDERED: HYDRALAZINE HCL 25 MG TABLET PO SCH (14:00)
[2021-02-20 14:15] LABS: Blood Morphology Comment NOT SEEN (NOT SEEN); Platelet Estimate DECR; White Blood Cell Scan OK (OK)
--- NOTE | 2021-02-20 17:04 | EKG ---
Test Date: 2021-02-18 Test Time: 09:23:43 Director Of Photography: NABIL MEASUREMENT RESULTS: Intervals: Rate: 64 [place]: 136 QRSD: 98 QT: 486 QTc: 501 [place]: P: 40 [place]: 136 QRS: 25 T: 263 INTERPRETIVE STATEMENTS: Normal sinus rhythm Possible Left atrial enlargement Possible Anterior infarct, age undetermined ST & T wave abnormality, consider inferolateral ischemia Prolonged QT Abnormal ECG Compared to ECG 02/11/2021 21:19:21 Myocardial infarct finding now present ST (T wave) deviation now present Prolonged QT interval now present Sinus bradycardia no longer present T-wave abnormality no longer present Possible ischemia still present Electronically Signed On 02-20-21 17:00:20 [employer]ODUCTION ENGINE[employer] by Jose Francisco Mckeon
[2021-02-20] MEDS: HYDRALAZINE HCL 25 MG TABLET PO SCH (21:45)
[2021-02-21] MEDS: PANTOPRAZOLE 40MG TABLET PO SCH (06:04)
[2021-02-21] MEDS: HYDRALAZINE HCL 20 MG/ML VIAL IV PRN ×2 (06:39→12:18)
[2021-02-21 06:49] LABS: Albumin 1.7 g/dL (3.4-5.0); Bilirubin Total 1.5 mg/dL (0.2-1.0); Potassium 3.8 mmol/L (3.5-5.1); Protein, Total 6.2 g/dL (6.4-8.2)
[2021-02-21] MEDS: INSULIN -REGULAR HUMAN 50 UNIT/0.5 ML ML SQ SCH ×4 (07:30→21:00)
--- NOTE | 2021-02-21 07:32 | P.PN ---
Subjective Date of Service: 02/21/21 Primary Care Provider: None, nephrology Dr. Rand Chief Complaint: Hyperkalemia Subjective: No new changes Physical Examination - Vital Signs Temperature: 97.6 F Blood Pressure: 162/64 Pulse: 61 Respirations: 18 Pulse Ox (%): 97 - Physical Exam General: Other (appears chronically ill) HEENT: Atraumatic, Normocephalic Neck: Supple Respiratory: Other (symmetric chest expansion) Cardiovascular: No rubs, No murmurs Gastrointestinal: Soft and benign, No guarding Musculoskeletal: No clubbing Integumentary: No warmth Neurological: Normal tone Urinary: Other (no bladder distention) External genitalia: Deferred Rectal: Deferred - Studies Medications List Reviewed: Yes Assessment And Plan - Plan # ESRD presumed to be 2/2 DM/Htn on HD MWF at [facility] Received HD yesterday Next HD tomorrow HD access: LA AVG EDW: 59 kgs Renal + DM diet Nephro-yani po daily Monitor renal panel # Hyperkalemia Resolved HD + renal diet as above # Htn Cont current BP med regimen # Anemia, thrombocytopenia Monitor CBC # COPD Per primary team # Chronic back pain Per primary team # Dispo Dc plan to [facility] ongoing Physician Review: Patient Assessed, Agree with Above Assessment and Plan
[2021-02-21] MEDS: carvediloL 6.25 MG TAB PO SCH ×2 (08:00→15:44)
[2021-02-21] MEDS: DULERA 100/5 (MOMETASONE/FORMOTEROL) INHALER IH SCH ×2 (09:00→21:00)
[2021-02-21] MEDS: HYDRALAZINE HCL 25 MG TABLET PO SCH ×2 (09:35→21:02)
[2021-02-21] MEDS: ROPINIROLE HCL 1 MG TAB PO SCH (09:36)
[2021-02-21] MEDS: MULTIVITAMINS,THERAPEUT 1 TAB PO SCH (09:37)
[2021-02-21] MEDS: SEVELAMER CARBONATE 800 MG TABLET PO SCH ×3 (09:37→17:43)
[2021-02-21] MEDS: lisinopriL 20 MG TAB PO SCH (09:38)
[2021-02-21] MEDS: GABAPENTIN 300 MG CAP PO SCH ×2 (09:38→21:02)
[2021-02-21] MEDS: CLONIDINE HCL 0.3 MG TAB PO SCH ×3 (09:38→20:58)
[2021-02-21] MEDS: MORPHINE 2 MG/ML SYR IV PRN ×3 (09:39→23:59)
[2021-02-21] MEDS: FOLIC ACID 1 MG TABLET PO SCH (09:39)
[2021-02-21] MEDS: AMLODIPINE 10 MG TAB PO SCH (09:39)
[2021-02-21] MEDS: ENOXAPARIN 60 MG/0.6 ML SQ SCH (09:40)
--- NOTE | 2021-02-21 13:46 | P.PN ---
Subjective Date of Service: 02/21/21 Primary Care Provider: None, nephrology Dr. Rand Chief Complaint: Hyperkalemia Subjective: No new changes (still pain over foot still back pain but improved with meds seen by surgery yesterday , plan for LE angiogram in am) Physical Examination - Vital Signs Temperature: 98.9 F Blood Pressure: 187/72 Pulse: 53 Respirations: 17 Pulse Ox (%): 95 - Physical Exam General: Alert, In no apparent distress, Oriented x3 HEENT: Atraumatic, Normocephalic, PERRLA Neck: Supple, 2+ carotid pulse no bruit, JVD not distended Respiratory: Clear to auscultation bilaterally, Normal air movement Cardiovascular: Normal pulses, Regular rate/rhythm, Normal S1 S2 Gastrointestinal: Normal bowel sounds, Soft and benign, Non-distended Musculoskeletal: No clubbing, No swelling Integumentary: Arterial ulcer Neurological: Normal speech, Normal strength at 5/5 x4 extr - Studies Medications List Reviewed: Yes Assessment And Plan - Current Problems (Diagnosis) (1) DM type 2 (diabetes mellitus, type 2) Current Visit: No Status: Acute (2) Dependence on renal dialysis Current Visit: No Status: Acute (3) CHF (congestive heart failure) Current Visit: No Status: Chronic Qualifiers: Heart failure type: unspecified Heart failure chronicity: chronic Qualified Code(s): I50.9 - Heart failure, unspecified (4) COPD (chronic obstructive pulmonary disease) Current Visit: No Status: Chronic (5) End stage renal disease Current Visit: No Status: Chronic (6) Hypertension Current Visit: No Status: Chronic Qualifiers: Hypertension type: essential hypertension Physician Review: Patient Assessed, Agree with Above Assessment and Plan Physician Review Additional Text: CTA lower extremity High-grade stenosis superior mesenteric artery Moderate grade stenosis proximal left renal artery Moderate stenosis right common and right superficial femoral arteries Moderate stenosis proximal left superficial femoral artery Moderate stenosis left popliteal artery Impression: Bradycardia, hyperkalemia secondary to ESRD on HD with medical noncompliance Medical debility secondary to chronic back pain, generalized weakness Diabetes mellitus type 2 with hypoglycemia Hypertension COPD GERD RLS Bilateral lower extremity vascular stenosis Right toes gangrene Abdominal pain - with superior mesenteric artery Plan: Lower extremity stenosis seen by Surgery , possible need for left BKA - Will plan for cardiology eval in am and possible angiogram -Dr Mckeon - may proceed with BKA on Monday by Dr Clarke 02/20/21 slightly worsening left LE middle 2nd and 3rd digit toes gangrene Will discussed with interventional cardiology for need for possible intervention on left popliteal artery -CT finding with moderate left popliteal stenosis as well as left renal artery stenosis noted -may also need stenosis of superior mesenteric artery intervention - continue to follow End-stage renal diseasecontinue dialysis TTS Follow renal team Bradycardia, hyperkalemia secondary to ESRD on HD with medical noncompliance: Now with intermittent atrial flutter cardiology for possible tachybradycardia syndrome evaluation Medical debility secondary to chronic back pain, generalized weakness: Continue pain regimen Previously follows at pain clinic in [place] Presence of toe gangrene may also be causing patient persistent pain symptoms Continue physical therapy, poor ambulation Given weakness and lack of home health, may need SNF but due to insurance reasons appears will need long-term placement Case management consulted Diabetes mellitus type 2 with hypoglycemia: Continue Accu-Cheks and sliding scale. Previous A1c 5.8 in July 2020. Hypertension: BP elevated this morning, will adjust meds COPD: Continue with COPD medicationDulera and albuterol. GERD: Continue with Protonix 40 mg daily RLS: Continue with Requip 5 mg daily DVT PPX: s/p heparin Code status: Full code Discharge Plan: Case discussed at length with patient. Follow with long-term placement
--- NOTE | 2021-02-21 15:08 | CON ---
Date of Consultation: 02/20/2021 He was admitted to Dr. Carreon initially on 02/11/2021. I saw the patient on 02/20/2021. I saw him b ecause of peripheral arterial disease. History Of Present Illness: Mr. Urbano is 65, very unfortunate. Has a history of dialysis, gastroeso phageal reflux disease, high cholesterol, diabetes, COPD, anxiety and hypertension. Came in with dry gangrene, shortness of breath. He needs surgery because of severe peripheral arterial disease in th e common femoral artery and superficial femoral artery and renal artery stenosis, superior mesenteric artery stenosis. Had an echocardiogram showing ejection fraction about 45% to 50% with mild global hypokinesis. There is a plan by Dr. Clarke for amputation. I think a CT angiogram for n ow and there is really no need for abdominal angiogram with runoff at this point. I think if the janny grene comes anymore priority, I think amputation should occur first and then we can deal with the res t of the peripheral artery down the road. He really has no chest pain. No cardiac symptoms. His sh ortness of breath is rather chronic. Past Medical History: As stated above. Allergies: NONE. Review of Systems: Negative. Social History: Negative. Family History: Negative. Medications: At home include ropinirole, clonidine, gabapentin, and Coreg. Physical Examination: When I saw him, his vital signs were stable. Blood pressure of 160/60. His pulse was 61, sinus rhyt hm, afebrile, respiratory rate at 18. Diagnostic Data: Other than the angiography as mentioned above. His creatinine is 3.29. Hemoglobin 9.6, white count is 11,000. He had a C-reactive protein of 203. Impression And Plan: 1.Hypertension. 2.Severe peripheral arterial disease. 3.Renal failure, on dialysis. 4.Gastroesophageal reflux disease. 5.Mild decrease in ejection fraction consistent with mild chronic systolic congestive heart failure. I did not see Mr. Urbano had a Lexiscan done, but I think that should be done down the ro ad. If the surgery is not urgent, I will do that first and amputation. After that, we eloy uld do a Lexiscan and then after the Lexiscan, we should do an abdominal angiogram with runoff and se e if we can fix any of his stenosis. Continue present regimen. Otherwise, I will discuss the case adis salvador with Dr. Clarke. ALEJANDRO/DHRUV Voice ID: [id number] Report ID: [id number]
[2021-02-21] MEDS: TIZANIDINE 4 MG TABLET PO PRN (23:27)
[2021-02-22] MEDS: PANTOPRAZOLE 40MG TABLET PO SCH (06:15)
[2021-02-22 06:16] LABS: Absolute Lymphocytes (CBC) 1.1 K/uL (0.7-4.9); Hematocrit 29.9 % (39.6-49.0); Lymphocytes % 10.1 % (15.3-44.8); MPV 9.2 fL (7.6-11.3); RBC Red Blood Cell Count 3.12 M/uL (4.33-5.43)
[2021-02-22 07:14] LABS: Albumin 1.6 g/dL (3.4-5.0); Bilirubin Total 1.5 mg/dL (0.2-1.0); Magnesium 2.2 mg/dL (1.8-2.4); Phosphorus 2.9 mg/dL (2.5-4.9); Potassium 4.2 mmol/L (3.5-5.1)
[2021-02-22] MEDS: INSULIN -REGULAR HUMAN 50 UNIT/0.5 ML ML SQ SCH ×4 (07:30→20:29)
[2021-02-22] MEDS: carvediloL 6.25 MG TAB PO SCH ×2 (08:00→16:58)
[2021-02-22] MEDS: SEVELAMER CARBONATE 800 MG TABLET PO SCH ×3 (08:00→17:08)
[2021-02-22] MEDS: ENOXAPARIN 60 MG/0.6 ML SQ SCH (08:00)
[2021-02-22] MEDS: lisinopriL 20 MG TAB PO SCH (08:15)
[2021-02-22] MEDS: HYDRALAZINE HCL 25 MG TABLET PO SCH ×2 (08:15→20:18)
[2021-02-22] MEDS: CLONIDINE HCL 0.3 MG TAB PO SCH ×3 (08:16→20:18)
[2021-02-22] MEDS: DULERA 100/5 (MOMETASONE/FORMOTEROL) INHALER IH SCH ×2 (08:18→20:18)
[2021-02-22] MEDS: AMLODIPINE 10 MG TAB PO SCH (08:18)
[2021-02-22] MEDS: GABAPENTIN 300 MG CAP PO SCH ×2 (08:18→20:18)
[2021-02-22] MEDS: MORPHINE 2 MG/ML SYR IV PRN ×2 (08:19→16:59)
[2021-02-22] MEDS: ROPINIROLE HCL 1 MG TAB PO SCH (08:19)
[2021-02-22] MEDS: MULTIVITAMINS,THERAPEUT 1 TAB PO SCH (08:19)
[2021-02-22] MEDS: FOLIC ACID 1 MG TABLET PO SCH (08:19)
[2021-02-22] MEDS ORDERED: NA CHLORIDE 0.9% 500 ML ONE ×2 (09:45→12:16)
[2021-02-22] MEDS ORDERED: PIPER TAZO 3.375 GM in NA CHLORIDE 0.9% 100 ML IV ONE (09:45)
[2021-02-22] MEDS ORDERED: BUPIVACAINE 0.75% MPF 10 ML VIAL ONE (10:06)
[2021-02-22] MEDS ORDERED: BUPIVACAINE 0.75% (PF) 2 ML SP ONE (10:11)
[2021-02-22] MEDS ORDERED: FENTANYL CITR 100 MCG/2 ML ONE (10:19)
[2021-02-22] MEDS ORDERED: LIDOCAINE 1% MPF 2 ML AMPULE ONE (11:09)
[2021-02-22] MEDS ORDERED: propofoL 200 MG/20 ML VIAL IV ONE (11:10)
--- NOTE | 2021-02-22 11:36 | CON ---
Date of Consultation: 02/20/2021 Brief History Of Present Illness: The patient is a 65-year-old male, known to me from previous surgi nataly intervention, who presents with a past medical history of dialysis, GERD, high cholesterol, diabe elton, COPD, anxiety, depression, severe peripheral vascular disease, who came in with dry gangrene of his left lower extremity and shortness of breath. He had a workup, which showed severe peripheral va scular disease with a significant flow restriction lesion of the left SFA. As such, it was contribut ing to his severe peripheral arterial disease and gangrenous changes to his foot. His foot was black and quite painful extending up to the lower leg and distal tibia. The pain was severe and I was con sulted for possible xrnpu-hut-temp amputation. Past Medical History: Includes acute renal failure, hypertension, diabetes, peripheral vascular dise ase, GERD, chronic pain, chronic anemia, hepatitis C, ESRD on hemodialysis Monday, Monday, Monday, diabetes, chronic pain, cirrhosis, COPD. Past Surgical History: Includes left knee replacement, ankle and heel spur removed, left ankle surge ry, toe surgery, back surgery, TENS implant, left femur surgery. Social History: He is , has 2 children. Allergies: NO KNOWN DRUG ALLERGIES. Home Medications: Included folic acid, heparin. Social History: He is a current everyday smoker with a 50+ pack year history. He denies alcohol or recreational drug use. Review of Systems: Ten-point review of systems other than HPI, he admits to back pain. Physical Examination: Vital Signs: At the time of my examination, his BMI is 20.3. He appears quite thin. His blood pres sure is 143/63, heart rate 60, respiratory rate 18, temperature is 97.7, SpO2 94% on room air. General: He is awake, alert, and oriented. Psychiatric: He is appropriate, conversive. HEENT: He is normocephalic. He has what appears to be cataracts in his eyes and has very poor visio n. His oropharynx is clear and his mucous membranes are a little on the dry side. Neck: Supple without JVD. Chest: Normal expansion and excursion. Cardiovascular: Regular rate and rhythm. Pulmonary: Clear to auscultation bilaterally. Abdomen: Soft. Extremities: Focused examination of lower extremities, he has significant dry gangrenous changes ext ending up to the mid foot with ischemic changes going up beyond the ankle to the lower tibial region. He is tender in all these areas to palpation. I cannot palpate a pulse in the popliteal and his fe moral is difficult to assess and palpate. Laboratory Data: He had a laboratory exam, which shows a white blood cell count of 11.5, hemoglobin 9.6, hematocrit 29.8, platelet count was 58. His sodium was 134, potassium 3.7, chloride 97, carbon dioxide is 28, BUN 36, creatinine 4.7, glucose is 131. He had imaging performed, which included a CT angio of the lower extremity, which was officially read as zjwu-sx-rizknsmp calcified plaque within the common, internal, and external carotid arteries. No high-grade stenosis. Calcified plaque in th e SMA resulting in high-grade stenosis. Kqgg-yu-ejyziufj calcified plaque is present in the abdomina l aorta. Mild thrombus is present. No aneurysm. Calcified plaque in the proximal left renal artery and moderate grade stenosis. Calcified plaque in the right common femoral artery resulting in mild grade stenosis. Calcified plaque throughout the right SFA/superficial femoral artery resulting in mu ltiple areas of moderate stenosis. Nalo-zm-fkldcmzr right plaque in popliteal artery without signifi cant stenosis. Calcified plaque present throughout the right posterior tibial, peroneal, and anterio r tibial arteries. Portions of the right posterior tibial artery do not contain flow. Short segment moderate stenosis involved the left superficial femoral artery. Dnpo-gl-vzkprflx stenosis of all po rtions of the remaining left SFA/superficial femoral artery artifact from the knee prosthesis obscure s position of the popliteal artery. Mild grade stenosis was seen. Left posterior tibial, peroneal, anterior tibial artery skin calcifications that are patent. The impression is high-grade stenosis of the superior mesenteric artery, moderate grade stenosis of the proximal left renal artery, moderate s tenosis of right common and superficial femoral arteries, moderate stenosis of the proximal left supe rficial artery, mild stenosis of left popliteal artery. Assessment And Plan: This is a 65-year-old male, who has severe peripheral arterial disease as descr ibed, who comes in with gangrenous changes to the left foot and obvious peripheral arterial disease c ontributing to these gangrenous changes to his foot. I have explained the risks, benefits, and alter natives of left airao-jmd-uwmw amputation including, but not limited to bleeding, infection, damage t o surrounding tissue, need for further operation and procedures. The patient will likely require rev ascularization as well to assist with healing as he has significant peripheral arterial disease. Med ical management to continue as well and he will likely need ongoing care and rehabilitation. He also understands that he can get infection, damage to surrounding tissues, need for further operation and procedure. The patient agrees to proceed as indicated. Thank you for this interesting consult. CESIA/DHRUV Voice ID: [id number] Report ID: [id number]
[2021-02-22] MEDS ORDERED: EPHEDRINE SULF 50 MG/ML VIAL ONE (11:49)
--- NOTE | 2021-02-22 12:22 | P.OP ---
Preoperative diagnosis: LEFT Lower Extremity Gangrene Postoperative diagnosis: LEFT Lower Extremity Gangrene Primary procedure: LEFT Below the Knee Amputation Anesthesia: Spinal Estimated blood loss: ~100cc Specimen: LEFT lower extremity Findings: heavily calcified vessels Complications: None Transferred to: Recovery Room Condition: Good
--- NOTE | 2021-02-22 13:24 | P.PN ---
Subjective Date of Service: 02/22/21 Primary Care Provider: None, nephrology Dr. Rand Chief Complaint: Hyperkalemia Subjective: Improving, Doing well Physical Examination - Vital Signs Temperature: 98 F Blood Pressure: 92/35 Pulse: 54 Respirations: 16 Pulse Ox (%): 100 - Studies Medications List Reviewed: Yes Assessment & Plan Discharge Plan: Other (halfway facility versus long-term care facility) Plan to discharge in: Greater than 2 days Physician Review Additional Text: COVID: Negative CT scan: CLINICAL HISTORY: Peripheral vascular disease TECHNIQUE: One hundred cc Isovue 370 was administered intravenously. 3D MIP reconstruction performed All CT scans are performed using dose optimization technique as appropriate and may include automated exposure control or mA/KV adjustment according to patient size. FINDINGS: Mild to moderate calcified plaque is present within the abdominal aorta. Minimal thrombus is present. No aneurysm. Calcified plaque SMA results in a high-grade stenosis. Calcified plaque proximal left renal artery results in moderate grade stenosis. Mild to moderate calcified plaque within the common, internal and external carotid arteries. No high-grade stenosis. Calcified plaque right common femoral artery results in a moderate grade stenosis. Calcified plaque throughout the right superficial femoral artery resulting in multiple areas of moderate stenosis. Mild to moderate plaque right popliteal artery without significant stenosis. Calcified plaque present throughout right posterior tibial, peroneal and anterior tibial arteries. Portions of right posterior tibial artery do not contain flow. Short segment moderate stenosis involves the proximal left superficial femoral artery. Mild to moderate areas of stenosis involves portions of the remainder of the left superficial femoral artery. Artifact from a knee prosthesis obscures portions of the popliteal artery. A moderate grade stenosis is seen. The left posterior tibial, peroneal and anterior tibial arteries contain calcification but are patent. IMPRESSION: High-grade stenosis superior mesenteric artery Moderate grade stenosis proximal left renal artery Moderate stenosis right common and right superficial femoral arteries Moderate stenosis proximal left superficial femoral artery Moderate stenosis left popliteal artery Physical Exam: GENERAL: The patient is a well-developed, well-nourished, in no apparent distress. Alert and oriented x3. VITAL SIGNS: Reviewed HEENT: Head is normocephalic and atraumatic. Extraocular muscles are intact. Pupils are equal, round, and reactive to light and accommodation. Nares appeared normal. Mouth is well hydrated and without lesions. Mucous membranes are moist. NECK: Supple. No carotid bruits. No lymphadenopathy or thyromegaly. LUNGS: Clear to auscultation. No crackles or wheezes are heard. HEART: Regular rate and rhythm, no appreciable gallops, rubs, murmurs or extra heart sounds ABDOMEN: Soft, nontender, and nondistended. Positive bowel sounds. No hepatosplenomegaly was noted. EXTREMITIES: Bandages to the left lower extremity Impression: Left lower extremity gangrene with severe peripheral vascular disease with noted high-grade stenosis to the superior mesenteric artery, moderate grade stenosis to the proximal left renal artery, moderate stenosis to the right common/right superficial femoral artery, moderate stenosis of the proximal left superior femoral artery and moderate stenosis to the left popliteal artery Bradycardia, hyperkalemia secondary to end-stage renal disease on hemodialysis with poor medical compliance Diabetes mellitus type 2 with hypoglycemia Hypertension COPD GERD RLS Plan: Spoke with surgery today. Patient will have left below-knee amputation. Case also discussed with cardiology. No need for intervention cardiology garg at this time. Cardiology recommends proceed with amputation. Continue with end-stage renal disease on hemodialysis. We will monitor Accu-Cheks and sliding scale. Continue medication for blood pressure. Continue COPD medication Continue medication Protonix Continue Requip DVT PPX: s/p heparin Code status: Full code Discharge Plan: We will need to discuss with patient about long-term care. Time Spent Managing Pts Care (In Minutes): 55
[2021-02-22] MEDS ORDERED: NA CHLORIDE 0.9% 300 ML IV ONE ×2 (13:32→13:42)
[2021-02-22] MEDS ORDERED: ALBUMIN HUMAN 25% 100 ML IV ONE (13:36)
[2021-02-22] MEDS: D5 0.9 NS 1,000 ML IV SCH (14:51)
[2021-02-22 15:04] LABS: Hematocrit 26.7 % (39.6-49.0)
[2021-02-22 15:25] LABS: Potassium 4.3 mmol/L (3.5-5.1)
--- NOTE | 2021-02-22 16:32 | OP ---
Date of Procedure: 02/22/2021 Surgeon: Svetlana Clarke MD, Preoperative Diagnosis: Incarcerated left lower extremity gangrene. Postoperative Diagnosis: Incarcerated left lower extremity gangrene. Procedure: Left [id number] amputation. Anesthesia: Spinal anesthesia. Estimated Blood Loss: Approximately 100 cc. Specimen: Left lower extremity. Findings: Heavily calcified vessels and significant gangrenous changes to the left lower extremity a nd foot. Complications: None. Disposition: The patient was transferred to the recovery room in good condition. Procedure In Detail: After informed consent was obtained, the patient was brought to the operating r oom, prepped and draped in the usual sterile fashion after adequate anesthesia achieved. I demarcate d the area approximately 2-3 cm below the tibial plateau as the transection point of the tibia. I th en marked this in a posterior flap based on the gastrocnemius muscle posteriorly circumferentially ar ound. I demarcated this area based on the posterior flap with a marking pen. A tourniquet was appli ed at this point to 250 mmHg, which was applied on the same thigh as the BKA, which was on the left. At this point, I used the 10 blade to cut down through subcutaneous tissues on the anterior compartm ent and following and around posteriorly. The saphenous vein was encountered posteriorly, which was a small saphenous vein, directed posteriorly. This was individually suture ligated with 3-0 silk tie s. The great saphenous vein was also encountered at this point as well as the small saphenous nerve adjacent to the great saphenous vein. These were individually ligated using 2-0 nylon and cut back p roximally after pulling the nerve down into the field significantly to allow for significant retracti on. After I dissected circumferentially down, I cut through the tibia down to anterior muscles as we ll as the other anterior compartment muscles to approach the interosseous membrane, at which point, I approached the anterior tibial artery and veins as well as the deep fibular/peroneal nerve. These w ere individually ligated using stick ties for the peroneal nerve as well as the tibial artery. There found to be quite heavily calcified vessels. I used a 2-0 silk suture to suture ligate these struct ures. I then placed an additional 3-0 silk tie circumferentially and all 3 of the structures identif ied as the anterior tibial artery vein and the deep fibular nerve. The fibular nerve of course was d istracted into the field to allow retraction posteriorly. After this was performed, I cleared the os seous membrane and the periosteum from the surface of the tibia. I performed this using a periosteal elevator to push the tissue back away from the transection plane. At this point, I worked circumfer entially around through the lateral compartment muscles. The lateral compartment muscles were dissec svetlana down until the fibula was encountered at this point. I opted and demarcated an area of transecti on on the fibula, which was 2-3 cm above the transection of the tibia at this point. I then cleared the posterior membrane and posterior tissues at this point. I dissected beyond the interosseous memb elva and the tibialis posterior muscle. At this point, I encountered the posterior tibial artery, ve ins and the tibial nerve. These were all additionally individually ligated using a 2-0 silk stick ti e on the artery, and the vein and nerve were individually ligated using 2-0 silk ties. The nerve add itionally was brought in the field, distracted prior to its being tied off to allow for retraction as high as possible. After these structures were ligated in this fashion, the posterior tibial artery was additionally tied off with a 0 nylon silk tie and allowed to retract at this point. I then came toward the fibula posteriorly and encountered the fibular/peroneal artery and vein. These were indiv idually ligated as well with 3-0 silk stick tie on the artery and then individually ligated. The fib ular/peroneal artery and vein were then tied using 2-0 silk ties at this point. After this plane was cleaned and the posterior compartment swept free, I then opted to use the bone saw on the tibia. Af ter the tibia at this point using the bone saw while keeping the blade cool with hydration , I beveled the anterior surface of the tibia after taking a slightly larger higher margin at this po int. I then beveled with a rasp circumferentially around the bone. There was a single bone bleeding vessel posteriorly, which was controlled with electrocautery, which was not involving the marrow. A t this point, I turned my attention to the fibula and once again approximately 2 cm higher cut was ma de using the same said bone saw down through the tissues and I beveled the edges of this circumferent ially around as well. A periosteal elevator was used to ensure that the periosteum was far from the cut surfaces of both the tibia and fibula at this point. I then dissected the gastrocnemius muscle d own to the transection plane, transected at this point and used electrocautery to separate the remain ing connective tissues at this point. The soleus muscle was transected through this area as well and the gastrocnemius muscle was used for the flap reconstruction. After the specimen was removed, this was sent off for pathologic examination. At this time, the tourniquet was taken down for approximat danny 65 minutes of tourniquet time. I then copiously irrigated the field. No additional hemostatic m aneuvers were required with the exception of a single 3-0 Vicryl stick tie on the posterior fascial p adonis of the gastrocnemius at the plantaris tendon. At this point, after the suture ligature was perf ormed with a 3-0 Vicryl suture, the area was copiously irrigated once again. No additional hemostati c maneuvers were required. At this point, I brought the posterior flap anteriorly and secured it to the anterior fascia using a combination of 2-0 Vicryl and 2-0 silk sutures circumferentially to allow for a tension-free coverage of the tibial and fibular surfaces. At this point, the area was copious ly irrigated once again. No additional hemostatic maneuvers were required. I then brought the skin together over the top of the plane without tension using a combination of 2-0 nylon sutures and stapl es. A sterile dressing and knee immobilizer were then placed over the top of this surgical field and the procedure was completed. The patient tolerated the procedure well without evidence of complicat ion and transferred to PACU in good condition. All counts were correct at the end of the case. TK/MODL Voice ID: [id number] Report ID: [id number]
[2021-02-22] MEDS: HYDROMORPHONE HCL 0.5 MG/0.5 ML INJ IV PRN (22:29)
[2021-02-22] MEDS: TIZANIDINE 4 MG TABLET PO PRN (23:23)
--- NOTE | 2021-02-22 23:56 | PN ---
Date of Progress Note: 02/22/2021 Chief Complaint: End-stage renal disease. Dialysis is scheduled for today. Patient is on dialysis on Monday, Monday, Monday. Diabetes mellitus with renal manifestation. Patient is on insulin. Vianey jaffe has multiple medical problems including history of peripheral vascular disease, diabetic foot infection. Today, he had a surgical procedure for left lower extremity gangrene. He was found to orozco ve heavily calcified vessels and significant gangrenous changes to the left lower extremity and foot. The patient underwent left below-knee amputation. After procedure, patient was found to have borde rline hypotension and IV albumin was ordered along with IV normal saline infusion for blood pressure support. Blood pressure improved. The patient underwent dialysis, although he requested to be taken off dialysis early and dialysis was terminated after 1 hour. Potassium level was re-evaluated and w as within normal limits. Electrolytes are as follows: Sodium 133, potassium 4.3, chloride 99, CO2 2 3, BUN 42, creatinine 4.6, calcium 8.0, glucose 113. Review of Systems: Patient denies chest pain, palpitations, shortness of breath. Objective: Lungs: Clear to auscultation bilaterally. Heart: S1, S2. Abdomen: Soft, benign. Extremities: Status post amputation. Impression And Plan: 1.Chronic kidney disease, end-stage renal disease. Patient will continue dialysis 3 times per week. Monitor electrolytes today. Patient had electrolytes within acceptable ranges. There is no eviden ce of metabolic acidosis, no evidence of hypokalemia. Continue renal diet as tolerated. 2.Anemia. Continue DEXTER. Monitor hemoglobin level and plan transfusion accordingly. 3.Chronic obstructive pulmonary disease per primary team. 4.Renal osteodystrophy. Continue binders and low phosphorus diet. EB/MODL Voice ID: [id number] Report ID: [id number]
[2021-02-23] MEDS: MORPHINE 2 MG/ML SYR IV PRN ×4 (00:24→22:06)
[2021-02-23] MEDS: HYDROMORPHONE HCL 0.5 MG/0.5 ML INJ IV PRN ×3 (03:15→18:26)
[2021-02-23] MEDS: D5 0.9 NS 1,000 ML IV SCH ×2 (04:20→12:32)
[2021-02-23] MEDS: PANTOPRAZOLE 40MG TABLET PO SCH (05:29)
--- NOTE | 2021-02-23 06:05 | P.PN ---
Subjective Date of Service: 02/23/21 Primary Care Provider: None, nephrology Dr. Rand Chief Complaint: Hyperkalemia Subjective: Doing well Physical Examination - Vital Signs Temperature: 97.9 F Blood Pressure: 138/62 Pulse: 69 Respirations: 18 Pulse Ox (%): 90 - Studies Medications List Reviewed: Yes Assessment & Plan Discharge Plan: Group Home Plan to discharge in: Greater than 2 days Physician Review Additional Text: COVID: Negative CT scan: CLINICAL HISTORY: Peripheral vascular disease TECHNIQUE: One hundred cc Isovue 370 was administered intravenously. 3D MIP reconstruction performed All CT scans are performed using dose optimization technique as appropriate and may include automated exposure control or mA/KV adjustment according to patient size. FINDINGS: Mild to moderate calcified plaque is present within the abdominal aorta. Minimal thrombus is present. No aneurysm. Calcified plaque SMA results in a high-grade stenosis. Calcified plaque proximal left renal artery results in moderate grade stenosis. Mild to moderate calcified plaque within the common, internal and external carotid arteries. No high-grade stenosis. Calcified plaque right common femoral artery results in a moderate grade stenosis. Calcified plaque throughout the right superficial femoral artery resulting in multiple areas of moderate stenosis. Mild to moderate plaque right popliteal artery without significant stenosis. Calcified plaque present throughout right posterior tibial, peroneal and anterior tibial arteries. Portions of right posterior tibial artery do not contain flow. Short segment moderate stenosis involves the proximal left superficial femoral artery. Mild to moderate areas of stenosis involves portions of the remainder of the left superficial femoral artery. Artifact from a knee prosthesis obscures portions of the popliteal artery. A moderate grade stenosis is seen. The left posterior tibial, peroneal and anterior tibial arteries contain calcification but are patent. IMPRESSION: High-grade stenosis superior mesenteric artery Moderate grade stenosis proximal left renal artery Moderate stenosis right common and right superficial femoral arteries Moderate stenosis proximal left superficial femoral artery Moderate stenosis left popliteal artery Surgery: Date of Procedure: 02/22/2021 Surgeon: Kenji Clarke MD Preoperative Diagnosis: Incarcerated left lower extremity gangrene. Postoperative Diagnosis: Incarcerated left lower extremity gangrene. Procedure: Left [id number]-qrl-cjuj amputation. Anesthesia: Spinal anesthesia. Estimated Blood Loss: Approximately 100 cc. Specimen: Left lower extremity. Findings: Heavily calcified vessels and significant gangrenous changes to the left lower extremity and foot. Complications: None. Physical Exam: GENERAL: The patient is a well-developed, well-nourished, in no apparent distress. Alert and oriented x3. VITAL SIGNS: Reviewed HEENT: Head is normocephalic and atraumatic. Extraocular muscles are intact. Pupils are equal, round, and reactive to light and accommodation. Nares appeared normal. Mouth is well hydrated and without lesions. Mucous membranes are moist. NECK: Supple. No carotid bruits. No lymphadenopathy or thyromegaly. LUNGS: Clear to auscultation. No crackles or wheezes are heard. HEART: Regular rate and rhythm, no appreciable gallops, rubs, murmurs or extra heart sounds ABDOMEN: Soft, nontender, and nondistended. Positive bowel sounds. No hepatos plenomegaly was noted. EXTREMITIES: Bandages to the left lower extremity Impression: Left lower extremity gangrene with severe peripheral vascular disease with noted high-grade stenosis to the superior mesenteric artery, moderate grade stenosis to the proximal left renal artery, moderate stenosis to the right common/right superficial femoral artery, moderate stenosis of the proximal left superior femoral artery and moderate stenosis to the left popliteal artery Bradycardia, hyperkalemia secondary to end-stage renal disease on hemodialysis with poor medical compliance Diabetes mellitus type 2 with hypoglycemia Hypertension COPD GERD RLS Anemia of chronic disease with chronic thrombocytopenia Chronic liver cirrhosis Plan: Patient had left below-knee amputation. Continue wound care. Will discuss with surgery. Case also discussed with cardiology. No need for intervention cardiology garg at this time. Continue with end-stage renal disease on hemodialysis. We will monitor Accu-Cheks and sliding scale. Continue medication for blood pressure. Continue COPD medication Continue medication Protonix Continue Requip Will increase the Neurontin to TID for better control of pain. Continue with pain medication. Will change Lovenox and hold if Platelet is below 90. Will consult safe deposit attendant to address daily needs. Patient with chronic liver disease. Will monitor lab. Continue with wound care and PT. Spoke to Daughter concerning plan of care. She agrees to have patient go to [facility]. She prefers to have him near [place], [place]. will discuss with manager social services to help arrange. Also spoke to daughter who has medical power of state's attorney to discuss advanced directives with patient. DVT PPX: Lovenox. Hold if platelet count less than 90 Code status: Full code. Daughter to rediscuss this in detail. Discharge Plan: Spoke with daughter at length. We will pursue [facility] placement. Daughter prefers a place near [facility]. Time Spent Managing Pts Care (In Minutes): 55
[2021-02-23 06:12] LABS: Hematocrit 26.9 % (39.6-49.0); Lymphocytes % 8.3 % (15.3-44.8); MPV 9.9 fL (7.6-11.3); RBC Red Blood Cell Count 2.81 M/uL (4.33-5.43)
[2021-02-23 06:32] LABS: AST/SGOT 24 U/L (15-37); Albumin 1.5 g/dL (3.4-5.0); Alkaline Phosphatase 93 U/L (45-117); BUN Blood Urea Nitrogen 38 mg/dL (7-18); Bicarbonate 24 mmol/L (21-32); Bilirubin Total 1.5 mg/dL (0.2-1.0); Glucose Level 116 mg/dL (74-106); Potassium 4.1 mmol/L (3.5-5.1); Protein, Total 5.5 g/dL (6.4-8.2); Sodium Level 132 mmol/L (136-145)
[2021-02-23 06:42] LABS: ALT/SGPT < 6 U/L (12-78)
[2021-02-23] MEDS: INSULIN -REGULAR HUMAN 50 UNIT/0.5 ML ML SQ SCH ×4 (07:30→20:43)
[2021-02-23 07:50] LABS: Blood Morphology Comment NOTED (NOT SEEN); Hypochromasia 1+; Platelet Estimate DECR; White Blood Cell Scan OK (OK)
[2021-02-23] MEDS: carvediloL 6.25 MG TAB PO SCH ×2 (08:00→17:00)
[2021-02-23] MEDS: MULTIVITAMINS,THERAPEUT 1 TAB PO SCH (08:25)
[2021-02-23] MEDS: ROPINIROLE HCL 1 MG TAB PO SCH (08:26)
[2021-02-23] MEDS: GABAPENTIN 300 MG CAP PO SCH (08:27)
[2021-02-23] MEDS: ENOXAPARIN 60 MG/0.6 ML SQ SCH (08:27)
[2021-02-23] MEDS: lisinopriL 20 MG TAB PO SCH (08:28)
[2021-02-23] MEDS: HYDRALAZINE HCL 25 MG TABLET PO SCH ×2 (08:28→20:41)
[2021-02-23] MEDS: SEVELAMER CARBONATE 800 MG TABLET PO SCH ×3 (08:29→18:26)
[2021-02-23] MEDS: CLONIDINE HCL 0.3 MG TAB PO SCH ×3 (09:00→20:42)
[2021-02-23] MEDS: DULERA 100/5 (MOMETASONE/FORMOTEROL) INHALER IH SCH ×2 (09:00→20:42)
[2021-02-23] MEDS: FOLIC ACID 1 MG TABLET PO SCH (12:12)
[2021-02-23] MEDS: AMLODIPINE 10 MG TAB PO SCH (12:32)
[2021-02-23] MEDS: GABAPENTIN 100 MG CAP PO SCH ×2 (13:53→20:41)
[2021-02-23] MEDS ORDERED: GABAPENTIN 300 MG CAP PO SCH (14:00)
[2021-02-23] MEDS ORDERED: D5 0.9 NS 1,000 ML IV SCH (22:00)
--- NOTE | 2021-02-23 23:24 | PN ---
Date of Progress Note: 02/23/2021 Chief Complaint: End-stage renal disease, on hemodialysis. Subjective: He underwent hemodialysis yesterday. Electrolytes are stable. Patient underwent BKA fo r left lower extremity gangrene, nonhealing wounds. Surgery was done yesterday and he had a left bel ow-knee amputation. Review of Systems: Patient denies fever, chills. Objective: Lungs: Diminished breath sounds at bases. Heart: S1 and S2. Abdomen: Soft, benign. Extremities: Status post amputation. Impression And Plan: 1.End-stage renal disease. Patient will have dialysis tomorrow. Monitor electrolytes. Continue ul trafiltration with mild fluid removal to prevent intradialytic hypotension. 2.Anemia. Continue DEXTER. Patient may benefit from blood transfusion. Monitor hemoglobin level. 3.Renal osteodystrophy. Continue binders and low-phosphorus diet. EB/MODL Voice ID: [id number] Report ID: [id number]
[2021-02-24 04:14] LABS: Hematocrit 23.7 % (39.6-49.0); Lymphocytes % 7.5 % (15.3-44.8); MPV 9.2 fL (7.6-11.3); RBC Red Blood Cell Count 2.49 M/uL (4.33-5.43)
[2021-02-24 04:32] LABS: Albumin 1.4 g/dL (3.4-5.0); Bilirubin Total 1.5 mg/dL (0.2-1.0); Magnesium 2.1 mg/dL (1.8-2.4); Phosphorus 3.6 mg/dL (2.5-4.9); Potassium 4.2 mmol/L (3.5-5.1); Protein, Total 5.1 g/dL (6.4-8.2)
[2021-02-24] MEDS: PANTOPRAZOLE 40MG TABLET PO SCH (05:49)
--- NOTE | 2021-02-24 05:59 | P.PN ---
Subjective Date of Service: 02/24/21 Primary Care Provider: None, nephrology Dr. Rand Chief Complaint: Hyperkalemia Subjective: Other (Overall stable. Patient reports pain improved but still present) Physical Examination - Vital Signs Temperature: 98.4 F Blood Pressure: 149/50 Pulse: 55 Respirations: 17 Pulse Ox (%): 92 - Studies Medications List Reviewed: Yes Assessment & Plan Discharge Plan: Other (assisted facility) Plan to discharge in: 24 Hours Physician Review Additional Text: COVID: Negative CT scan: CLINICAL HISTORY: Peripheral vascular disease TECHNIQUE: One hundred cc Isovue 370 was administered intravenously. 3D MIP reconstruction performed All CT scans are performed using dose optimization technique as appropriate and may include automated exposure control or mA/KV adjustment according to patient size. FINDINGS: Mild to moderate calcified plaque is present within the abdominal aorta. Minimal thrombus is present. No aneurysm. Calcified plaque SMA results in a high-grade stenosis. Calcified plaque proximal left renal artery results in moderate grade stenosis. Mild to moderate calcified plaque within the common, internal and external carotid arteries. No high-grade stenosis. Calcified plaque right common femoral artery results in a moderate grade stenosis. Calcified plaque throughout the right superficial femoral artery resulting in multiple areas of moderate stenosis. Mild to moderate plaque right popliteal artery without significant stenosis. Calcified plaque present throughout right posterior tibial, peroneal and anterior tibial arteries. Portions of right posterior tibial artery do not contain flow. Short segment moderate stenosis involves the proximal left superficial femoral artery. Mild to moderate areas of stenosis involves portions of the remainder of the left superficial femoral artery. Artifact from a knee prosthesis obscures portions of the popliteal artery. A moderate grade stenosis is seen. The left posterior tibial, peroneal and anterior tibial arteries contain calcification but are patent. IMPRESSION: High-grade stenosis superior mesenteric artery Moderate grade stenosis proximal left renal artery Moderate stenosis right common and right superficial femoral arteries Moderate stenosis proximal left superficial femoral artery Moderate stenosis left popliteal artery Surgery: Date of Procedure: 02/22/2021 Surgeon: Kenji Clarke MD Preoperative Diagnosis: Incarcerated left lower extremity gangrene. Postoperative Diagnosis: Incarcerated left lower extremity gangrene. Procedure: Left jcrmr-hcz-xdrh amputation. Anesthesia: Spinal anesthesia. Estimated Blood Loss: Approximately 100 cc. Specimen: Left lower extremity. Findings: Heavily calcified vessels and significant gangrenous changes to the left lower extremity and foot. Complications: None. Physical Exam: GENERAL: The patient is a well-developed, well-nourished, in no apparent distress. Alert and oriented x3. VITAL SIGNS: Reviewed HEENT: Head is normocephalic and atraumatic. Extraocular muscles are intact. Pupils are equal, round, and reactive to light and accommodation. Nares appeared normal. Mouth is well hydrated and without lesions. Mucous membranes are moist. NECK: Supple. No carotid bruits. No lymphadenopathy or thyromegaly. LUNGS: Clear to auscultation. No crackles or wheezes are heard. HEART: Regular rate and rhythm, no appreciable gallops, rubs, murmurs or extra heart sounds ABDOMEN: Soft, nontender, and nondistended. Positive bowel sounds. No hepatosplenomegaly was noted. EXTREMITIES: Bandages to the left lower extremity Impression: Left lower extremity gangrene with severe peripheral vascular disease with noted high-grade stenosis to the superior mesenteric artery, moderate grade stenosis to the proximal left renal artery, moderate stenosis to the right common/right superficial femoral artery, moderate stenosis of the proximal left superior femoral artery and moderate stenosis to the left popliteal artery Bradycardia, hyperkalemia secondary to end-stage renal disease on hemodialysis with poor medical compliance Diabetes mellitus type 2 with hypoglycemia Hypertension COPD GERD RLS Anemia of chronic disease with chronic thrombocytopenia Chronic liver cirrhosis Plan: Patient had left below-knee amputation. Continue wound care. Case discussed with surgery. No further intervention required. Continue with current wound care. Patient being evaluated for skilled placement. Patient still reports pain. Will increase Neurontin to 300 mg 3 times a day. We will also add tramadol for mild pain and hydrocodone for moderate pain. Wean off IV pain medication. Continue Zanaflex twice daily as needed for muscle spasm. Case also discussed with cardiology. No need for cardiac intervention at this time. Patient may require intervention in the future to address his multiple stenotic areas. Continue with end-stage renal disease on hemodialysis. Patient will get 1 unit of blood during dialysis. This was discussed in detail with nephrology. Hemoglobin was 7.5. Maintain hemoglobin above 7.5. Continue to Accu-Cheks and sliding scale. Will check A1c. Continue medications for hypertension. This includes Norvasc 10 mg daily, carvedilol 25 mg 1 pill twice daily, clonidine 0.3 mg 3 times a day, hydralazine 150 mg 1 pill twice daily and lisinopril 40 mg daily Continue COPD medicationDulera, albuterol Continue medication Protonix Continue Requip 5 mg daily 40 mg daily for RLS for GERD Continue with Lovenox and hold if Platelet is below 90. Will consult senior computer specialist to address daily needs. Patient with chronic liver disease. Will monitor lab. Continue with wound care and PT. Spoke to Daughter concerning plan of care yesterday. She agrees to have [facility] to [facility]. She prefers to have him near [place], [place]. social work working to get skilled placement near [facility]. Also discussed advanced directives. Due to his multiple risk factors consider DNR. Patient currently full code. Daughter agrees but she will discuss this further initially with father. DVT PPX: Lovenox. Hold if platelet count less than 90 Code status: Full code. Daughter to rediscuss this in detail. Discharge Plan: Spoke with daughter at length. Continue to pursue skilled placement near [facility]. Time Spent Managing Pts Care (In Minutes): 55
[2021-02-24] MEDS: INSULIN -REGULAR HUMAN 50 UNIT/0.5 ML ML SQ SCH ×4 (07:30→21:00)
[2021-02-24] MEDS: SEVELAMER CARBONATE 800 MG TABLET PO SCH ×3 (08:00→17:00)
[2021-02-24] MEDS: carvediloL 6.25 MG TAB PO SCH ×2 (08:00→17:00)
[2021-02-24] MEDS: CLONIDINE HCL 0.3 MG TAB PO SCH ×3 (09:00→21:02)
[2021-02-24] MEDS: AMLODIPINE 10 MG TAB PO SCH (09:00)
[2021-02-24] MEDS: DULERA 100/5 (MOMETASONE/FORMOTEROL) INHALER IH SCH ×2 (09:00→21:00)
[2021-02-24] MEDS: NEPRO SHAKE 237 ML CAN PO SCH ×2 (09:00→21:08)
[2021-02-24] MEDS: HYDRALAZINE HCL 25 MG TABLET PO SCH ×2 (09:00→21:02)
[2021-02-24] MEDS: lisinopriL 20 MG TAB PO SCH (09:00)
[2021-02-24] MEDS: ENOXAPARIN 30 MG/0.3 ML SQ SCH (09:32)
[2021-02-24] MEDS: ROPINIROLE HCL 1 MG TAB PO SCH (09:33)
[2021-02-24] MEDS: GABAPENTIN 100 MG CAP PO SCH (09:34)
[2021-02-24] MEDS: FOLIC ACID 1 MG TABLET PO SCH (09:35)
[2021-02-24] MEDS: MULTIVITAMINS,THERAPEUT 1 TAB PO SCH (09:35)
[2021-02-24 09:39] LABS: Hematocrit 24.1 % (39.6-49.0)
[2021-02-24] MEDS: HYDROMORPHONE HCL 0.5 MG/0.5 ML INJ IV PRN ×2 (09:46→14:50)
[2021-02-24] MEDS ORDERED: TRAMADOL HCL 50 MG TAB PO PRN (10:14)
--- NOTE | 2021-02-24 12:02 | P.PN ---
Subjective Date of Service: 02/24/21 Primary Care Provider: None, nephrology Dr. Rand Chief Complaint: Hyperkalemia today S/p Lt BKA HD today with 1 PRBC prnding discharge to SNF at [place] , [place] Physical Examination: General: awkae, NAD , thin neck: supple, no elevated JVD Heart: RRR, normal S1,2 no murmur or rub chest CTAB, no rales or whezes Abdomen: soft , NT ext : lt BKA, rt no edema ESRD presumed to be 2/2 DM/Htn on HD MWF at [facility] HD access: LA AVG Renal + DM diet Nephro-yani po daily Monitor renal panel # Hyperkalemia Resolved HD + renal diet as above # Htn Cont current BP med regimen # Anemia, thrombocytopenia Monitor CBC # COPD Per primary team # Chronic back pain Per primary team Physical Examination - Vital Signs Temperature: 98.4 F Blood Pressure: 149/50 Pulse: 55 Respirations: 17 Pulse Ox (%): 92 - Studies Medications List Reviewed: Yes Assessment And Plan Physician Review: Patient Assessed, Agree with Above Assessment and Plan
[2021-02-24] MEDS: GABAPENTIN 300 MG CAP PO SCH ×2 (14:51→21:02)
[2021-02-24] MEDS ORDERED: NA CHLORIDE 0.9% 250 ML ONE (17:42)
[2021-02-24 22:25] LABS: Hematocrit 29.5 % (39.6-49.0)
[2021-02-25] MEDS: PANTOPRAZOLE 40MG TABLET PO SCH (05:44)
--- NOTE | 2021-02-25 06:01 | P.PN ---
Subjective Date of Service: 02/25/21 Primary Care Provider: None, nephrology Dr. Rand Chief Complaint: Hyperkalemia Subjective: Doing well Physical Examination - Vital Signs Temperature: 98.2 F Blood Pressure: 160/61 Pulse: 71 Respirations: 18 Pulse Ox (%): 91 - Studies Medications List Reviewed: Yes Assessment & Plan Discharge Plan: Other (nursing home facility) Plan to discharge in: 24 Hours Physician Review Additional Text: COVID: Negative CT scan: CLINICAL HISTORY: Peripheral vascular disease TECHNIQUE: One hundred cc Isovue 370 was administered intravenously. 3D MIP reconstruction performed All CT scans are performed using dose optimization technique as appropriate and may include automated exposure control or mA/KV adjustment according to patient size. FINDINGS: Mild to moderate calcified plaque is present within the abdominal aorta. Minimal thrombus is present. No aneurysm. Calcified plaque SMA results in a high-grade stenosis. Calcified plaque proximal left renal artery results in moderate grade stenosis. Mild to moderate calcified plaque within the common, internal and external alfonso tid arteries. No high-grade stenosis. Calcified plaque right common femoral artery results in a moderate grade stenosis. Calcified plaque throughout the right superficial femoral artery resulting in multiple areas of moderate stenosis. Mild to moderate plaque right popliteal artery without significant stenosis. Calcified plaque present throughout right posterior tibial, peroneal and anterior tibial arteries. Portions of right posterior tibial artery do not contain flow. Short segment moderate stenosis involves the proximal left superficial femoral artery. Mild to moderate areas of stenosis involves portions of the remainder of the left superficial femoral artery. Artifact from a knee prosthesis obscures portions of the popliteal artery. A moderate grade stenosis is seen. The left posterior tibial, peroneal and anterior tibial arteries contain calcification but are patent. IMPRESSION: High-grade stenosis superior mesenteric artery Moderate grade stenosis proximal left renal artery Moderate stenosis right common and right superficial femoral arteries Moderate stenosis proximal left superficial femoral artery Moderate stenosis left popliteal artery Surgery: Date of Procedure: 02/22/2021 Surgeon: Kenji Clarke MD Preoperative Diagnosis: Incarcerated left lower extremity gangrene. Postoperative Diagnosis: Incarcerated left lower extremity gangrene. Procedure: Left [id number] amputation. Anesthesia: Spinal anesthesia. Estimated Blood Loss: Approximately 100 cc. Specimen: Left lower extremity. Findings: Heavily calcified vessels and significant gangrenous changes to the left lower extremity and foot. Complications: None. Physical Exam: GENERAL: The patient is a well-developed, well-nourished, in no apparent distress. Alert and oriented x3. VITAL SIGNS: Reviewed HEENT: Head is normocephalic and atraumatic. Extraocular muscles are intact. Pupils are equal, round, and reactive to light and accommodation. Nares appeared normal. Mouth is well hydrated and without lesions. Mucous membranes are moist. NECK: Supple. No carotid bruits. No lymphadenopathy or thyromegaly. LUNGS: Clear to auscultation. No crackles or wheezes are heard. HEART: Regular rate and rhythm, no appreciable gallops, rubs, murmurs or extra heart sounds ABDOMEN: Soft, nontender, and nondistended. Positive bowel sounds. No hepatosplenomegaly was noted. EXTREMITIES: Bandages to the left lower extremity Impression: Left lower extremity gangrene with severe peripheral vascular disease with noted high-grade stenosis to the superior mesenteric artery, moderate grade stenosis to the proximal left renal artery, moderate stenosis to the right common/right superficial femoral artery, moderate stenosis of the proximal left superior femoral artery and moderate stenosis to the left popliteal artery Bradycardia, hyperkalemia secondary to end-stage renal disease on hemodialysis with poor medical compliance Diabetes mellitus type 2 with hypoglycemia Hypertension COPD GERD RLS Anemia of chronic disease with chronic thrombocytopenia Chronic liver cirrhosis Plan: Overall stable. Pain better controlled. Patient had left below-knee amputation. Continue wound care. Case discussed with surgery about plan of care. Surgery agrees with plan for skilled place ent. No further intervention required. Continue with Neurontin to 300 mg 3 times a day. Continue tramadol for mild pain and hydrocodone for moderate pain. Wean off IV pain medication. Continue medication twice daily as needed for muscle spasm. Case also discussed with cardiology. No need for cardiac intervention at this time. Patient may require intervention in the future to address his multiple stenotic areas. Continue with end-stage renal disease on hemodialysis. Patient received 1 unit of blood with dialysis yesterday. Hemoglobin improved to 9.5. Maintain hemoglobin above 7.5. Blood sugar stable. Continue to Accu-Cheks and sliding scale. Will check A1c. Blood pressure stable. Continue medications for hypertension. This includes Norvasc 10 mg daily, carvedilol 25 mg 1 pill twice daily, clonidine 0.3 mg 3 times a day, hydralazine 150 mg 1 pill twice daily and lisinopril 40 mg daily Continue COPD medicationDulera, albuterol Continue medication Protonix Continue Requip 5 mg daily 40 mg daily for RLS for GERD Continue with Lovenox and hold if Platelet is below 90. Continue with dietitian recommendations. Patient with chronic liver disease. Will monitor lab. Continue to discuss with daughter about plan of care. Pursue skilled placement facility near [place], [place]. Social work working to get skilled placement near [facility]. Also discussed advanced directives. Due to his multiple risk factors consider DNR. Patient currently full code. Daughter agrees but she will discuss this further initially with father. DVT PPX: Lovenox. Hold if platelet count less than 90 Code status: Full code. Daughter to rediscuss this in detail. Discharge Plan: Continue to pursue skilled placement near [facility]. Time Spent Managing Pts Care (In Minutes): 55
[2021-02-25] MEDS: INSULIN -REGULAR HUMAN 50 UNIT/0.5 ML ML SQ SCH ×4 (07:30→20:20)
[2021-02-25] MEDS: ENOXAPARIN 30 MG/0.3 ML SQ SCH (09:00)
[2021-02-25] MEDS: NEPRO SHAKE 237 ML CAN PO SCH ×2 (09:00→20:19)
[2021-02-25] MEDS: DULERA 100/5 (MOMETASONE/FORMOTEROL) INHALER IH SCH ×2 (09:00→20:19)
[2021-02-25] MEDS: HYDROCODONE/APAP 10/325 TAB PO PRN ×2 (09:57→16:57)
[2021-02-25] MEDS: ROPINIROLE HCL 1 MG TAB PO SCH (09:58)
[2021-02-25] MEDS: carvediloL 6.25 MG TAB PO SCH ×2 (09:58→16:58)
[2021-02-25] MEDS: MULTIVITAMINS,THERAPEUT 1 TAB PO SCH (09:58)
[2021-02-25] MEDS: CLONIDINE HCL 0.3 MG TAB PO SCH ×3 (09:59→20:19)
[2021-02-25] MEDS: lisinopriL 20 MG TAB PO SCH (09:59)
[2021-02-25] MEDS: AMLODIPINE 10 MG TAB PO SCH (10:00)
[2021-02-25] MEDS: FOLIC ACID 1 MG TABLET PO SCH (10:00)
[2021-02-25] MEDS: SEVELAMER CARBONATE 800 MG TABLET PO SCH ×3 (10:00→16:57)
[2021-02-25] MEDS: GABAPENTIN 300 MG CAP PO SCH ×3 (10:00→20:19)
[2021-02-25] MEDS: HYDRALAZINE HCL 25 MG TABLET PO SCH ×2 (10:45→20:18)
--- NOTE | 2021-02-25 15:24 | P.PN ---
Subjective Date of Service: 02/25/21 Primary Care Provider: None, nephrology Dr. Rand Chief Complaint: Hyperkalemia today S/p Lt BKA pending discharge to SNF at [place] , [place] HD tomorrow Hb now 9.4 after transfusion Physical Examination: General: awkae, NAD , thin neck: supple, no elevated JVD Heart: RRR, normal S1,2 no murmur or rub chest CTAB, no rales or whezes Abdomen: soft , NT ext : lt BKA, rt no edema ESRD presumed to be 2/2 DM/Htn on HD MWF at [facility] HD access: LA AVG Renal + DM diet Nephro-yani po daily Monitor renal panel # Hyperkalemia Resolved HD + renal diet as above # Htn Cont current BP med regimen # Anemia, thrombocytopenia Monitor CBC S/p PRBC cont epogen # COPD Per primary team # Chronic back pain Per primary team Physical Examination - Vital Signs Temperature: 98.9 F Blood Pressure: 164/64 Pulse: 68 Respirations: 16 Pulse Ox (%): 92 - Studies Medications List Reviewed: Yes Assessment And Plan Physician Review: Patient Assessed, Agree with Above Assessment and Plan
[2021-02-26] MEDS: PANTOPRAZOLE 40MG TABLET PO SCH (05:47)
--- NOTE | 2021-02-26 06:06 | P.PN ---
Subjective Date of Service: 02/26/21 Primary Care Provider: None, nephrology Dr. Rand Chief Complaint: Hyperkalemia Subjective: Other (Overall stable. Pain slightly better controlled.) Physical Examination - Vital Signs Temperature: 98.5 F Blood Pressure: 144/53 Pulse: 60 Respirations: 16 Pulse Ox (%): 92 - Studies Medications List Reviewed: Yes Assessment & Plan Discharge Plan: Longterm Plan to discharge in: 24 Hours Physician Review Additional Text: COVID: Negative CT scan: CLINICAL HISTORY: Peripheral vascular disease TECHNIQUE: One hundred cc Isovue 370 was administered intravenously. 3D MIP reconstruction performed All CT scans are performed using dose optimization technique as appropriate and may include automated exposure control or mA/KV adjustment according to patient size. FINDINGS: Mild to moderate calcified plaque is present within the abdominal aorta. Minimal thrombus is present. No aneurysm. Calcified plaque SMA results in a high-grade stenosis. Calcified plaque proximal left renal artery results in moderate grade stenosis. Mild to moderate calcified plaque within the common, internal and external carotid arteries. No high-grade stenosis. Calcified plaque right common femoral artery results in a moderate grade stenosis. Calcified plaque throughout the right superficial femoral artery resulting in multiple areas of moderate stenosis. Mild to moderate plaque right popliteal artery without significant stenosis. Calcified plaque present throughout right posterior tibial, peroneal and anterior tibial arteries. Portions of right posterior tibial artery do not contain flow. Short segment moderate stenosis involves the proximal left superficial femoral artery. Mild to moderate areas of stenosis involves portions of the remainder of the left superficial femoral artery. Artifact from a knee prosthesis obscures portions of the popliteal artery. A moderate grade stenosis is seen. The left posterior tibial, peroneal and anterior tibial arteries contain calcification but are patent. IMPRESSION: High-grade stenosis superior mesenteric artery Moderate grade stenosis proximal left renal artery Moderate stenosis right common and right superficial femoral arteries Moderate stenosis proximal left superficial femoral artery Moderate stenosis left popliteal artery Surgery: Date of Procedure: 02/22/2021 Surgeon: Kenji Clarke MD Preoperative Diagnosis: Incarcerated left lower extremity gangrene. Postoperative Diagnosis: Incarcerated left lower extremity gangrene. Procedure: Left [id number] amputation. Anesthesia: Spinal anesthesia. Estimated Blood Loss: Approximately 100 cc. Specimen: Left lower extremity. Findings: Heavily calcified vessels and significant gangrenous changes to the left lower extremity and foot. Complications: None. Physical Exam: GENERAL: The patient is a well-developed, well-nourished, in no apparent distress. Alert and oriented x3. VITAL SIGNS: Reviewed HEENT: Head is normocephalic and atraumatic. Extraocular muscles are intact. Pupils are equal, round, and reactive to light and accommodation. Nares appeared normal. Mouth is well hydrated and without lesions. Mucous membranes are moist. NECK: Supple. No carotid bruits. No lymphadenopathy or thyromegaly. LUNGS: Clear to auscultation. No crackles or wheezes are heard. HEART: Regular rate and rhythm, no appreciable gallops, rubs, murmurs or extra heart sounds ABDOMEN: Soft, nontender, and nondistended. Positive bowel sounds. No hepatosplenomegaly was noted. EXTREMITIES: Bandages to the left lower extremity Impression: Left lower extremity gangrene with severe peripheral vascular disease with noted high-grade stenosis to the superior mesenteric artery, moderate grade stenosis to the proximal left renal artery, moderate stenosis to the right common/right superficial femoral artery, moderate stenosis of the proximal left superior femoral artery and moderate stenosis to the left popliteal artery Bradycardia, hyperkalemia secondary to end-stage renal disease on hemodialysis with poor medical compliance Diabetes mellitus type 2 with hypoglycemia Hypertension COPD GERD RLS Anemia of chronic disease with chronic thrombocytopenia Chronic liver cirrhosis Plan: Overall stable. Pain seems to be slightly better controlled. Continue with pain medication. Patient had left below-knee amputation. Continue wound care. Case discussed with surgery yesterday. Wound was evaluated by surgery. No further intervention required. White count elevated today. Will discuss with surgery on whether patient will require antibiotic therapy. Continue with Neurontin to 300 mg 3 times a day. Continue tramadol for mild pain and hydrocodone for moderate pain. Wean off IV pain medication. Continue medication twice daily as needed for muscle spasm. Case also discussed with cardiology. No need for cardiac intervention at this time. Patient may require intervention in the future to address his multiple stenotic areas. Continue with end-stage renal disease on hemodialysis. Hemoglobin stable after transfusion of blood given during dialysis the other day. Continue to monitor hemoglobin. Maintain hemoglobin above 7.5. Blood sugar controlled. Continue to Accu-Cheks and sliding scale. Hemoglobin A1c 5.1 Hypertension better controlled. Adjustments have been made. Continue medications for hypertension. This includes Norvasc 10 mg daily, carvedilol 25 mg 1 pill twice daily, clonidine 0.3 mg 3 times a day, hydralazine 150 mg 1 pill twice daily and lisinopril 40 mg daily Continue COPD medicationDulera, albuterol Continue medication Protonix Continue Requip 5 mg daily 40 mg daily for RLS for GERD Continue with Lovenox and hold if Platelet is below 90. Continue with dietitian recommendations. Patient with chronic liver disease. Will monitor lab. Case discussed in detail with daughter and mental health social worker. Patient to be placed at skilled facility in [facility]. Awaiting approval on facility and transportation to dialysis center in [facility]. This may occur as early as today. DVT PPX: Lovenox. Hold if platelet count less than 90 Code status: Full code. Discharge Plan: Continue to pursue skilled placement near [facility]. Time Spent Managing Pts Care (In Minutes): 55
[2021-02-26 06:43] LABS: Absolute Lymphocytes (CBC) 1.1 K/uL (0.7-4.9); Hematocrit 27.4 % (39.6-49.0); Lymphocytes % 5.5 % (15.3-44.8); MPV 8.7 fL (7.6-11.3)
[2021-02-26 07:03] LABS: Magnesium 2.3 mg/dL (1.8-2.4); Potassium 4.1 mmol/L (3.5-5.1)
[2021-02-26 07:08] LABS: Blood Morphology Comment NOT SEEN (NOT SEEN); Platelet Estimate DECR; Toxic Granulation 2+
[2021-02-26] MEDS: INSULIN -REGULAR HUMAN 50 UNIT/0.5 ML ML SQ SCH ×4 (07:30→21:00)
[2021-02-26] MEDS: HYDROCODONE/APAP 10/325 TAB PO PRN ×4 (07:34→21:11)
[2021-02-26] MEDS: ENOXAPARIN 30 MG/0.3 ML SQ SCH (09:00)
[2021-02-26] MEDS: NEPRO SHAKE 237 ML CAN PO SCH ×2 (09:00→21:00)
[2021-02-26] MEDS: DULERA 100/5 (MOMETASONE/FORMOTEROL) INHALER IH SCH ×2 (09:00→21:00)
[2021-02-26] MEDS: VANCOMYCIN 1 GM in NA CHLORIDE 0.9% 250 ML IVPB ONE ×2 (10:00→10:56)
--- NOTE | 2021-02-26 10:10 | RAD REPORT ---
EXAM DESCRIPTION: RAD - Chest Single View - 02/26/2021 9:45 am CLINICAL HISTORY: Leukocytosis COMPARISON: <Comparisons> FINDINGS: Lines: None. Lungs: No evidence of edema or pneumonia. Pleural: No significant pleural effusions or pneumothorax. Cardiac: Cardiomegaly. Bones: No acute fractures. Spinal stimulator. Other: IMPRESSION: No acute cardiopulmonary disease.
[2021-02-26] MEDS ORDERED: NA CHLORIDE 0.9% 0 ML ONE (10:37)
[2021-02-26] MEDS: ROPINIROLE HCL 1 MG TAB PO SCH (10:52)
[2021-02-26] MEDS: carvediloL 6.25 MG TAB PO SCH ×2 (10:52→16:37)
[2021-02-26] MEDS: GABAPENTIN 300 MG CAP PO SCH ×3 (10:52→21:12)
[2021-02-26] MEDS: HYDRALAZINE HCL 25 MG TABLET PO SCH ×2 (10:52→21:10)
[2021-02-26] MEDS: lisinopriL 20 MG TAB PO SCH (10:53)
[2021-02-26] MEDS: CLONIDINE HCL 0.3 MG TAB PO SCH ×3 (10:53→21:10)
[2021-02-26] MEDS: MULTIVITAMINS,THERAPEUT 1 TAB PO SCH (10:53)
[2021-02-26] MEDS: SEVELAMER CARBONATE 800 MG TABLET PO SCH ×3 (10:53→17:00)
[2021-02-26] MEDS: ASPIRIN EC 81 MG TAB PO SCH (10:53)
[2021-02-26] MEDS: AMLODIPINE 10 MG TAB PO SCH (10:54)
[2021-02-26] MEDS: FOLIC ACID 1 MG TABLET PO SCH (10:54)
--- NOTE | 2021-02-26 12:44 | P.PN ---
Subjective Date of Service: 02/26/21 Primary Care Provider: None, nephrology Dr. Rand Chief Complaint: Hyperkalemia today tolerated HD with no complications WBC 19k Cont Abx Awaiting SNF approval Physical Examination: General: awkae, NAD , thin neck: supple, no elevated JVD Heart: RRR, normal S1,2 no murmur or rub chest CTAB, no rales or whezes Abdomen: soft , NT ext : lt BKA, rt no edema ESRD presumed to be 2/2 DM/Htn on HD MWF [facility] HD access: LA AVG Renal + DM diet Nephro-yani po daily Monitor renal panel # Hyperkalemia Resolved HD + renal diet as above # Htn Cont current BP med regimen # Anemia, thrombocytopenia Monitor CBC S/p PRBC cont epogen # COPD Per primary team # Chronic back pain Per primary team Physical Examination - Vital Signs Temperature: 97.5 F Blood Pressure: 174/74 Pulse: 51 Respirations: 16 Pulse Ox (%): 92 - Studies Medications List Reviewed: Yes Assessment And Plan Physician Review: Patient Assessed, Agree with Above Assessment and Plan
[2021-02-26] MEDS: LOPERAMIDE HCL 2 MG CAPSULE PO PRN (17:21)
[2021-02-26] MEDS: EPOETIN 4,000 UNIT/ML VIAL IV SCH (17:45)
[2021-02-26] MEDS: LACTOBACILLUS/ACIDOPHILUS TAB PO SCH (21:11)
[2021-02-27 05:23] LABS: Absolute Lymphocytes (CBC) 0.8 K/uL (0.7-4.9); Hematocrit 30.7 % (39.6-49.0); Lymphocytes % 4.7 % (15.3-44.8); MPV 9.2 fL (7.6-11.3); RBC Red Blood Cell Count 3.23 M/uL (4.33-5.43)
[2021-02-27 05:40] LABS: Albumin 1.2 g/dL (3.4-5.0); Bilirubin Total 1.4 mg/dL (0.2-1.0); Magnesium 2.1 mg/dL (1.8-2.4); Potassium 3.9 mmol/L (3.5-5.1); Protein, Total 5.4 g/dL (6.4-8.2)
[2021-02-27] MEDS: PANTOPRAZOLE 40MG TABLET PO SCH (05:51)
--- NOTE | 2021-02-27 05:51 | P.PN ---
Subjective Date of Service: 02/27/21 Primary Care Provider: None, nephrology Dr. Rand Chief Complaint: Hyperkalemia Subjective: Improving, Doing well (No further diarrhea noted. Patient doing well. Pain seems to be controlled) Physical Examination - Vital Signs Temperature: 97 F Blood Pressure: 100/50 Pulse: 60 Respirations: 16 Pulse Ox (%): 98 - Studies Medications List Reviewed: Yes Assessment & Plan Discharge Plan: Other (residential facility) Plan to discharge in: 48 Hours Physician Review Additional Text: COVID: Negative CT scan: CLINICAL HISTORY: Peripheral vascular disease TECHNIQUE: One hundred cc Isovue 370 was administered intravenously. 3D MIP reconstruction performed All CT scans are performed using dose optimization technique as appropriate and may include automated exposure control or mA/KV adjustment according to patient size. FINDINGS: Mild to moderate calcified plaque is present within the abdominal aorta. Minimal thrombus is present. No aneurysm. Calcified plaque SMA results in a high-grade stenosis. Calcified plaque proximal left renal artery results in moderate grade stenosis. Mild to moderate calcified plaque within the common, internal and external carotid arteries. No high-grade stenosis. Calcified plaque right common femoral artery results in a moderate grade stenosis. Calcified plaque throughout the right superficial femoral artery resulting in multiple areas of moderate stenosis. Mild to moderate plaque right popliteal artery without significant stenosis. Calcified plaque present throughout right posterior tibial, peroneal and anterior tibial arteries. Portions of right posterior tibial artery do not contain flow. Short segment moderate stenosis involves the proximal left superficial femoral artery. Mild to moderate areas of stenosis involves portions of the remainder of the left superficial femoral artery. Artifact from a knee prosthesis obscures portions of the popliteal artery. A moderate grade stenosis is seen. The left posterior tibial, peroneal and anterior tibial arteries contain calcification but are patent. IMPRESSION: High-grade stenosis superior mesenteric artery Moderate grade stenosis proximal left renal artery Moderate stenosis right common and right superficial femoral arteries Moderate stenosis proximal left superficial femoral artery Moderate stenosis left popliteal artery Surgery: Date of Procedure: 02/22/2021 Surgeon: Kenji Clarke MD Preoperative Diagnosis: Incarcerated left lower extremity gangrene. Postoperative Diagnosis: Incarcerated left lower extremity gangrene. Procedure: Left tkztm-[id number]-sxpr amputation. Anesthesia: Spinal anesthesia. Estimated Blood Loss: Approximately 100 cc. Specimen: Left lower extremity. Findings: Heavily calcified vessels and significant gangrenous changes to the left lower extremity and foot. Complications: None. CXR: COMPARISON: <Comparisons> FINDINGS: Lines: None. Lungs: No evidence of edema or pneumonia. Pleural: No significant pleural effusions or pneumothorax. Cardiac: Cardiomegaly. Bones: No acute fractures. Spinal stimulator. IMPRESSION: No acute cardiopulmonary disease. Physical Exam: GENERAL: The patient is a well-developed, well-nourished, in no apparent distress. Alert and oriented x3. VITAL SIGNS: Reviewed HEENT: Neck supple LUNGS: Clear to auscultation. No crackles or wheezes are heard. HEART: Regular rate and rhythm, no appreciable gallops, rubs, murmurs or extra heart sounds ABDOMEN: Soft, nontender, and nondistended. Positive bowel sounds. No hepatosplenomegaly was noted. EXTREMITIES: Bandages to the left lower extremity. Necrosis to the right index finger appears stable Impression: Left lower extremity gangrene with severe peripheral vascular disease with noted high-grade stenosis to the superior mesenteric artery, moderate grade stenosis to the proximal left renal artery, moderate stenosis to the right common/right superficial femoral artery, moderate stenosis of the proximal left superior femoral artery and moderate stenosis to the left popliteal artery Bradycardia, hyperkalemia secondary to end-stage renal disease on hemodialysis with poor medical compliance Diabetes mellitus type 2 with hypoglycemia Hypertension COPD GERD RLS Anemia of chronic disease with chronic thrombocytopenia Chronic liver cirrhosis Leukocytosis likely related to above Plan: Overall stable. Leukocytosis improved. Chest x-ray unremarkable. Blood cultures obtained. Case discussed in detail with surgery. Patient likely has chronic leukocytosis related to his disease. Continue IV vancomycin. If blood cultures negative will discontinue. Continue pain control. Patient had left below-knee amputation. Continue wound care. Continue with Neurontin to 300 mg 3 times a day. Continue tramadol for mild pain and hydrocodone for moderate pain. Wean off IV pain medication. Continue medication twice daily as needed for muscle spasm. Case also discussed with cardiology. No need for cardiac intervention at this time. Patient may require intervention in the future to address his multiple stenotic areas. Continue dialysis as patient with end-stage renal disease. Hemoglobin remains stable after transfusion of blood. Patient was given transfusion of blood during the course of his stay. Continue to monitor hemoglobin. Maintain hemoglobin above 7.5. Blood sugar controlled. Continue to Accu-Cheks and sliding scale. Hemoglobin A1c 5.1 Blood pressure well controlled. Will decrease hydralazine to 100 mg twice daily. Continue to make adjustments continue medications for hypertension. This includes Norvasc 10 mg daily, carvedilol 25 mg 1 pill twice daily, clonidine 0.3 mg 3 times a day, hydralazine 100 mg 1 pill twice daily and lisinopril 40 mg daily Continue COPD medicationDulera, albuterol Continue medication Protonix Continue Requip 5 mg daily 40 mg daily for RLS for GERD Continue with Lovenox and hold if Platelet is below 90. Continue with dietitian recommendations. Patient with chronic liver disease. Will monitor lab. Case discussed in detail with daughter and social work yesterday. Awaiting approval to go to skilled [facility] in [facility]. This will likely occur on Monday. DVT PPX: Lovenox. Hold if platelet count less than 90 Code status: Full code. Discharge Plan: Awaiting approval for skilled placement to facility in [facility]. Continue to discuss with daughter. Daughter was to discuss advanced directives with patient. Will check to see what his decision has been Time Spent Managing Pts Care (In Minutes): 55
[2021-02-27] MEDS: HYDROCODONE/APAP 10/325 TAB PO PRN ×3 (06:22→20:54)
[2021-02-27] MEDS: INSULIN -REGULAR HUMAN 50 UNIT/0.5 ML ML SQ SCH ×4 (07:30→20:53)
[2021-02-27] MEDS: HYDRALAZINE HCL 25 MG TABLET PO SCH ×2 (08:54→20:52)
[2021-02-27] MEDS: ENOXAPARIN 30 MG/0.3 ML SQ SCH (08:54)
[2021-02-27] MEDS: LACTOBACILLUS/ACIDOPHILUS TAB PO SCH ×3 (08:54→20:53)
[2021-02-27] MEDS: MULTIVITAMINS,THERAPEUT 1 TAB PO SCH (08:54)
[2021-02-27] MEDS: CLONIDINE HCL 0.3 MG TAB PO SCH ×3 (08:55→20:52)
[2021-02-27] MEDS: FOLIC ACID 1 MG TABLET PO SCH (08:55)
[2021-02-27] MEDS: ROPINIROLE HCL 1 MG TAB PO SCH (08:55)
[2021-02-27] MEDS: GABAPENTIN 300 MG CAP PO SCH ×3 (08:56→20:53)
[2021-02-27] MEDS: carvediloL 6.25 MG TAB PO SCH ×2 (08:56→16:04)
[2021-02-27] MEDS: SEVELAMER CARBONATE 800 MG TABLET PO SCH ×3 (08:56→16:04)
[2021-02-27] MEDS: NEPRO SHAKE 237 ML CAN PO SCH ×2 (08:57→20:53)
[2021-02-27] MEDS: AMLODIPINE 10 MG TAB PO SCH (08:57)
[2021-02-27] MEDS: DULERA 100/5 (MOMETASONE/FORMOTEROL) INHALER IH SCH ×2 (08:58→20:53)
[2021-02-27] MEDS: lisinopriL 20 MG TAB PO SCH (08:58)
--- NOTE | 2021-02-27 13:27 | P.PN ---
Subjective Date of Service: 02/27/21 Primary Care Provider: None, nephrology Dr. Rand Chief Complaint: Hyperkalemia today tolerated HD with no complications WBC 17k F/U repeated cultures Cont Abx Awaiting SNF approval HD on Monday Physical Examination: General: awkae, NAD , thin neck: supple, no elevated JVD Heart: RRR, normal S1,2 no murmur or rub chest CTAB, no rales or whezes Abdomen: soft , NT ext : lt BKA, rt no edema ESRD presumed to be 2/2 DM/Htn on HD MWF at [facility] HD access: [place] AVG Renal + DM diet Nephro-yani po daily Monitor renal panel # Hyperkalemia Resolved HD + renal diet as above # Htn Cont current BP med regimen # Anemia, thrombocytopenia Monitor CBC S/p PRBC cont epogen # COPD Per primary team # Chronic back pain Per primary team Physical Examination - Vital Signs Temperature: 96.6 F Blood Pressure: 137/62 Pulse: 55 Respirations: 16 Pulse Ox (%): 98 - Studies Medications List Reviewed: Yes
[2021-02-27] MEDS ORDERED: VANCOMYCIN 500 MG in NA CHLORIDE 0.9% 100 ML IVPB SCH (15:00)
--- NOTE | 2021-02-28 05:53 | P.PN ---
Subjective Date of Service: 02/28/21 Primary Care Provider: None, nephrology Dr. Rand Chief Complaint: Hyperkalemia Subjective: Other (Overall stable) Physical Examination - Vital Signs Temperature: 97.1 F Blood Pressure: 105/38 Pulse: 53 Respirations: 17 Pulse Ox (%): 100 - Studies Medications List Reviewed: Yes Assessment & Plan Discharge Plan: Other ([facility] in [facility]) Plan to discharge in: 24 Hours Physician Review Additional Text: COVID: Negative CT scan: CLINICAL HISTORY: Peripheral vascular disease TECHNIQUE: One hundred cc Isovue 370 was administered intravenously. 3D MIP reconstruction performed All CT scans are performed using dose optimization technique as appropriate and may include automated exposure control or mA/KV adjustment according to patient size. FINDINGS: Mild to moderate calcified plaque is present within the abdominal aorta. Minimal thrombus is present. No aneurysm. Calcified plaque SMA results in a high-grade stenosis. Calcified plaque proximal left renal artery results in moderate grade stenosis. Mild to moderate calcified plaque within the common, internal and external carotid arteries. No high-grade stenosis. Calcified plaque right common femoral artery results in a moderate grade stenosis. Calcified plaque throughout the right superficial femoral artery resulting in multiple areas of moderate stenosis. Mild to moderate plaque right popliteal artery without significant stenosis. Calcified plaque present throughout right posterior tibial, peroneal and anterior tibial arteries. Portions of right posterior tibial artery do not contain flow. Short segment moderate stenosis involves the proximal left superficial femoral artery. Mild to moderate areas of stenosis involves portions of the remainder of the left superficial femoral artery. Artifact from a knee prosthesis obscures portions of the popliteal artery. A moderate grade stenosis is seen. The left posterior tibial, peroneal and anterior tibial arteries contain calcification but are patent. IMPRESSION: High-grade stenosis superior mesenteric artery Moderate grade stenosis proximal left renal artery Moderate stenosis right common and right superficial femoral arteries Moderate stenosis proximal left superficial femoral artery Moderate stenosis left popliteal artery Surgery: Date of Procedure: 02/22/2021 Surgeon: Kenji Clarke MD Preoperative Diagnosis: Incarcerated left lower extremity gangrene. Postoperative Diagnosis: Incarcerated left lower extremity gangrene. Procedure: Left [id number] amputation. Anesthesia: Spinal anesthesia. Estimated Blood Loss: Approximately 100 cc. Specimen: Left lower extremity. Findings: Heavily calcified vessels and significant gangrenous changes to the left lower extremity and foot. Complications: None. CXR: COMPARISON: <Comparisons> FINDINGS: Lines: None. Lungs: No evidence of edema or pneumonia. Pleural: No significant pleural effusions or pneumothorax. Cardiac: Cardiomegaly. Bones: No acute fractures. Spinal stimulator. IMPRESSION: No acute cardiopulmonary disease. Physical Exam: GENERAL: The patient is a well-developed, well-nourished, in no apparent distress. Alert and oriented x3. VITAL SIGNS: Reviewed HEENT: Neck supple LUNGS: Clear to auscultation. No crackles or wheezes are heard. HEART: Regular rate and rhythm, no appreciable gallops, rubs, murmurs or extra heart sounds ABDOMEN: Soft, nontender, and nondistended. Positive bowel sounds. No hepatosplenomegaly was noted. EXTREMITIES: Bandages to the left lower extremity. Necrosis to the right index finger appears stable Impression: Left lower extremity gangrene with severe peripheral vascular disease with noted high-grade stenosis to the superior mesenteric artery, moderate grade stenosis to the proximal left renal artery, moderate stenosis to the right common/right superficial femoral artery, moderate stenosis of the proximal left superior femoral artery and moderate stenosis to the left popliteal artery Bradycardia, hyperkalemia secondary to end-stage renal disease on hemodialysis with poor medical compliance Diabetes mellitus type 2 with hypoglycemia Hypertension COPD GERD RLS Anemia of chronic disease with chronic thrombocytopenia Chronic liver cirrhosis Leukocytosis likely related to above Plan: Overall stable. Awaiting retirement facility placement. This will likely occur tomorrow. I will turn the service over to the hospitalist team tomorrow. I will go up on her care with him. Leukocytosis improved. Chest x-ray unremarkable. Blood culture negative. No need for antibiotics at this time. Vancomycin was discontinued. Case discussed in detail with surgery. Patient had left below-knee amputation. Continue wound care. Patient likely has chronic leukocytosis related to his peripheral vascular disease and recent amputation. Continue pain control. Continue with Neurontin to 300 mg 3 times a day. Continue tramadol for mild p ain and hydrocodone for moderate pain. Wean off IV pain medication. Case also discussed with cardiology. No need for cardiac intervention at this time. Patient may require intervention in the future to address his multiple stenotic areas. Continue dialysis as patient with end-stage renal disease. Hemoglobin remains stable after transfusion of blood. Patient was given transfusion of blood during the course of his stay. Continue to monitor hemoglobin. Maintain hemoglobin above 7.5. Blood sugar controlled. Continue to Accu-Cheks and sliding scale. Hemoglobin A1c 5.1 Blood pressure well controlled. Hydralazine was decreased yesterday to 100 mg twice daily. Continue to make adjustments continue medications for hypertension. This includes Norvasc 10 mg daily, carvedilol 25 mg 1 pill twice daily, clonidine 0.3 mg 3 times a day, hydralazine 100 mg 1 pill twice daily and lisinopril 40 mg daily Continue COPD medicationDulera, albuterol Continue medication Protonix Continue Requip 5 mg daily 40 mg daily for RLS for GERD Continue with Lovenox and hold if Platelet is below 90. Continue with dietitian recommendations. Patient with chronic liver disease. Will monitor lab. Continue to discuss with daughter about plan of care. [facility] This will likely occur on Monday. DVT PPX: Lovenox. Hold if platelet count less than 90 Code status: Full code. Discharge Plan: Awaiting approval for skilled placement to facility in [facility]. Continue to discuss with daughter. Daughter was to discuss advanced directives with patient. Will check to see what his decision has been Time Spent Managing Pts Care (In Minutes): 55
[2021-02-28 06:07] LABS: Albumin 1.1 g/dL (3.4-5.0); Bilirubin Total 1.2 mg/dL (0.2-1.0)
[2021-02-28 06:08] LABS: Magnesium 2.2 mg/dL (1.8-2.4); Potassium 4.4 mmol/L (3.5-5.1)
[2021-02-28 06:58] LABS: Hematocrit 31.5 % (39.6-49.0); Lymphocytes % 6.2 % (15.3-44.8); MPV 10.1 fL (7.6-11.3); RBC Red Blood Cell Count 3.32 M/uL (4.33-5.43)
[2021-02-28] MEDS: PANTOPRAZOLE 40MG TABLET PO SCH ×2 (06:58→09:57)
[2021-02-28] MEDS: INSULIN -REGULAR HUMAN 50 UNIT/0.5 ML ML SQ SCH ×5 (07:30→21:00)
[2021-02-28] MEDS: carvediloL 6.25 MG TAB PO SCH ×2 (08:00→17:00)
[2021-02-28] MEDS: SEVELAMER CARBONATE 800 MG TABLET PO SCH ×3 (08:45→17:30)
[2021-02-28] MEDS: ENOXAPARIN 30 MG/0.3 ML SQ SCH (08:45)
[2021-02-28] MEDS: HYDRALAZINE HCL 25 MG TABLET PO SCH ×2 (09:00→21:00)
[2021-02-28] MEDS: lisinopriL 20 MG TAB PO SCH (09:00)
[2021-02-28] MEDS: AMLODIPINE 10 MG TAB PO SCH (09:00)
[2021-02-28] MEDS: CLONIDINE HCL 0.3 MG TAB PO SCH ×3 (09:00→21:00)
[2021-02-28] MEDS: NEPRO SHAKE 237 ML CAN PO SCH ×2 (09:00→21:00)
[2021-02-28] MEDS: DULERA 100/5 (MOMETASONE/FORMOTEROL) INHALER IH SCH ×2 (09:00→21:00)
[2021-02-28] MEDS: LACTOBACILLUS/ACIDOPHILUS TAB PO SCH ×3 (09:58→22:25)
[2021-02-28] MEDS: FOLIC ACID 1 MG TABLET PO SCH (09:58)
[2021-02-28] MEDS: GABAPENTIN 300 MG CAP PO SCH ×3 (09:58→22:25)
[2021-02-28] MEDS: ASPIRIN EC 81 MG TAB PO SCH (09:59)
[2021-02-28] MEDS: ROPINIROLE HCL 1 MG TAB PO SCH (10:00)
[2021-02-28] MEDS: MULTIVITAMINS,THERAPEUT 1 TAB PO SCH (10:00)
[2021-02-28] MEDS: HYDROCODONE/APAP 10/325 TAB PO PRN (10:07)
[2021-02-28] MEDS: D50W 25 GM/50 ML SYRINGE IV PRN ×2 (12:03→23:02)
[2021-03-01 06:49] LABS: Albumin 1.2 g/dL (3.4-5.0); Bilirubin Total 1.1 mg/dL (0.2-1.0); Magnesium 2.2 mg/dL (1.8-2.4); Potassium 4.3 mmol/L (3.5-5.1); Protein, Total 4.8 g/dL (6.4-8.2)
[2021-03-01 06:51] LABS: Hematocrit 28.2 % (39.6-49.0); Lymphocytes % 7.6 % (15.3-44.8); MPV 9.5 fL (7.6-11.3); RBC Red Blood Cell Count 2.96 M/uL (4.33-5.43)
[2021-03-01] MEDS: INSULIN -REGULAR HUMAN 50 UNIT/0.5 ML ML SQ SCH ×4 (07:30→21:00)
--- NOTE | 2021-03-01 07:59 | P.PN ---
Subjective Date of Service: 03/02/21 Primary Care Provider: None, nephrology Dr. Rand Chief Complaint: Hyperkalemia Subjective: Other (received HD today.) Physical Examination - Vital Signs Temperature: 97 F Blood Pressure: 138/64 Pulse: 49 Respirations: 18 Pulse Ox (%): 100 - Physical Exam General: In no apparent distress HEENT: Atraumatic, Normocephalic Neck: Supple, JVD not distended Respiratory: Other (symmetric chest expansion) Cardiovascular: No rubs, No murmurs Gastrointestinal: Soft and benign, No guarding Musculoskeletal: No clubbing Integumentary: No warmth Neurological: Other (no new focal deficits) Urinary: Other (no bladder distention) External genitalia: Deferred Rectal: Deferred - Studies Medications List Reviewed: Yes Assessment And Plan - Plan # ESRD presumed to be 2/2 DM/Htn on HD MWF at [facility] HD received today HD access: [place] AVG EDW: 59 kgs Renal + DM diet Nephro-yani po daily Monitor renal panel # Hyperkalemia Resolved HD + renal diet as above # Htn Cont current BP med regimen # Anemia, thrombocytopenia S/p PRBC Cont epogen # COPD Per primary team # Chronic back pain Per primary team # Dispo Dc plan to [facility] ongoing Physician Review: Patient Assessed, Agree with Above Assessment and Plan
[2021-03-01] MEDS: carvediloL 6.25 MG TAB PO SCH ×2 (08:00→17:00)
[2021-03-01] MEDS: AMLODIPINE 10 MG TAB PO SCH (09:00)
[2021-03-01] MEDS: LACTOBACILLUS/ACIDOPHILUS TAB PO SCH ×3 (09:00→21:00)
[2021-03-01] MEDS: CLONIDINE HCL 0.3 MG TAB PO SCH ×3 (09:00→21:00)
[2021-03-01] MEDS: DULERA 100/5 (MOMETASONE/FORMOTEROL) INHALER IH SCH ×2 (09:00→21:00)
[2021-03-01] MEDS: GABAPENTIN 300 MG CAP PO SCH ×3 (09:00→21:00)
[2021-03-01] MEDS: NEPRO SHAKE 237 ML CAN PO SCH ×2 (09:00→21:00)
[2021-03-01] MEDS: ENOXAPARIN 30 MG/0.3 ML SQ SCH (09:00)
[2021-03-01] MEDS: ASPIRIN EC 81 MG TAB PO SCH (09:00)
[2021-03-01] MEDS: lisinopriL 20 MG TAB PO SCH (09:00)
[2021-03-01] MEDS: MULTIVITAMINS,THERAPEUT 1 TAB PO SCH (09:00)
[2021-03-01] MEDS: HYDRALAZINE HCL 25 MG TABLET PO SCH ×2 (09:00→21:00)
[2021-03-01] MEDS: FOLIC ACID 1 MG TABLET PO SCH (09:00)
[2021-03-01] MEDS: SEVELAMER CARBONATE 800 MG TABLET PO SCH ×3 (09:00→17:00)
[2021-03-01] MEDS: ROPINIROLE HCL 1 MG TAB PO SCH (11:00)
[2021-03-01] MEDS: HYDROCODONE/APAP 10/325 TAB PO PRN (19:54)
[2021-03-02] MEDS: EPOETIN 4,000 UNIT/ML VIAL IV SCH (00:13)
[2021-03-02] MEDS: HYDROCODONE/APAP 10/325 TAB PO PRN (02:27)
[2021-03-02] MEDS: PANTOPRAZOLE 40MG TABLET PO SCH (05:52)
--- NOTE | 2021-03-02 06:50 | P.PN ---
Subjective Date of Service: 03/02/21 Primary Care Provider: None, nephrology Dr. Rand Chief Complaint: Hyperkalemia Subjective: No new changes Physical Examination - Vital Signs Temperature: 97.3 F Blood Pressure: 157/69 Pulse: 61 Respirations: 17 Pulse Ox (%): 97 - Physical Exam General: Other (appears chronically ill) HEENT: Atraumatic, Normocephalic Neck: Supple Respiratory: Other (symmetric chest expansion) Cardiovascular: No rubs, No murmurs Gastrointestinal: Soft and benign, No guarding Musculoskeletal: No clubbing Integumentary: No warmth Neurological: Normal tone, Other (+mild lethargy) Urinary: Other (no bladder distention) External genitalia: Deferred Rectal: Deferred - Studies Medications List Reviewed: Yes Assessment And Plan - Plan # ESRD presumed to be 2/2 DM/Htn on HD MWF at [facility] HD received yesterday Next HD tomorrow HD access: [place] AVG EDW: 59 kgs Renal + DM diet Nephro-yani po daily Monitor renal panel # Hyperkalemia Resolved HD + renal diet as above # Htn Cont current BP med regimen # Anemia, thrombocytopenia S/p PRBC Cont epogen # COPD Per primary team # Chronic back pain Per primary team # Dispo Dc plan to [facility] ongoing Physician Review: Patient Assessed, Agree with Above Assessment and Plan
[2021-03-02] MEDS: INSULIN -REGULAR HUMAN 50 UNIT/0.5 ML ML SQ SCH ×4 (07:30→21:00)
[2021-03-02] MEDS: SEVELAMER CARBONATE 800 MG TABLET PO SCH ×3 (08:00→17:00)
[2021-03-02] MEDS: carvediloL 6.25 MG TAB PO SCH ×2 (08:00→17:00)
[2021-03-02] MEDS: HYDRALAZINE HCL 25 MG TABLET PO SCH ×2 (09:00→21:09)
[2021-03-02] MEDS: NEPRO SHAKE 237 ML CAN PO SCH ×2 (09:00→21:10)
[2021-03-02] MEDS: ROPINIROLE HCL 1 MG TAB PO SCH (09:00)
[2021-03-02] MEDS: CLONIDINE HCL 0.3 MG TAB PO SCH ×3 (09:00→21:09)
[2021-03-02] MEDS: ENOXAPARIN 30 MG/0.3 ML SQ SCH (09:00)
[2021-03-02] MEDS: AMLODIPINE 10 MG TAB PO SCH (09:00)
[2021-03-02] MEDS: lisinopriL 20 MG TAB PO SCH (09:00)
[2021-03-02] MEDS: MULTIVITAMINS,THERAPEUT 1 TAB PO SCH (09:00)
[2021-03-02] MEDS: FOLIC ACID 1 MG TABLET PO SCH (09:00)
[2021-03-02] MEDS: ASPIRIN EC 81 MG TAB PO SCH (09:00)
[2021-03-02] MEDS: DULERA 100/5 (MOMETASONE/FORMOTEROL) INHALER IH SCH ×2 (09:00→21:00)
[2021-03-02] MEDS: LACTOBACILLUS/ACIDOPHILUS TAB PO SCH ×3 (11:00→21:10)
[2021-03-02] MEDS: GABAPENTIN 300 MG CAP PO SCH ×3 (11:01→21:10)
[2021-03-03] MEDS: PANTOPRAZOLE 40MG TABLET PO SCH (05:07)
[2021-03-03] MEDS: HYDROCODONE/APAP 10/325 TAB PO PRN ×2 (05:47→21:56)
[2021-03-03] MEDS: INSULIN -REGULAR HUMAN 50 UNIT/0.5 ML ML SQ SCH ×4 (07:30→21:00)
[2021-03-03] MEDS: DULERA 100/5 (MOMETASONE/FORMOTEROL) INHALER IH SCH ×2 (09:00→21:00)
[2021-03-03] MEDS: NEPRO SHAKE 237 ML CAN PO SCH ×3 (09:00→21:58)
[2021-03-03] MEDS: ASPIRIN EC 81 MG TAB PO SCH (09:11)
[2021-03-03] MEDS: SEVELAMER CARBONATE 800 MG TABLET PO SCH ×3 (09:11→16:23)
[2021-03-03] MEDS: GABAPENTIN 300 MG CAP PO SCH ×3 (09:11→21:56)
[2021-03-03] MEDS: CLONIDINE HCL 0.3 MG TAB PO SCH ×3 (09:11→21:56)
[2021-03-03] MEDS: HYDRALAZINE HCL 25 MG TABLET PO SCH ×2 (09:11→21:55)
[2021-03-03] MEDS: LACTOBACILLUS/ACIDOPHILUS TAB PO SCH ×3 (09:11→21:56)
[2021-03-03] MEDS: AMLODIPINE 10 MG TAB PO SCH (09:11)
[2021-03-03] MEDS: MULTIVITAMINS,THERAPEUT 1 TAB PO SCH (09:11)
[2021-03-03] MEDS: ENOXAPARIN 30 MG/0.3 ML SQ SCH (09:12)
[2021-03-03] MEDS: lisinopriL 20 MG TAB PO SCH (09:12)
[2021-03-03] MEDS: carvediloL 6.25 MG TAB PO SCH ×2 (09:12→16:24)
[2021-03-03] MEDS: ROPINIROLE HCL 1 MG TAB PO SCH (09:12)
[2021-03-03] MEDS: FOLIC ACID 1 MG TABLET PO SCH (09:13)
--- NOTE | 2021-03-03 13:37 | P.PN ---
Subjective Date of Service: 03/03/21 Primary Care Provider: None, nephrology Dr. Rand Chief Complaint: Hyperkalemia Subjective: No new changes Physical Examination - Vital Signs Temperature: 98.4 F Blood Pressure: 118/56 Pulse: 59 Respirations: 18 Pulse Ox (%): 93 - Physical Exam General: Other (appears chronically ill) HEENT: Atraumatic Neck: Supple Respiratory: Other (symmetric chest expansion) Cardiovascular: No rubs, No murmurs Gastrointestinal: Soft and benign, No guarding Musculoskeletal: No clubbing Integumentary: No warmth Neurological: Normal tone Urinary: Other (no bladder distention) External genitalia: Deferred Rectal: Deferred - Studies Medications List Reviewed: Yes Assessment And Plan - Plan # ESRD presumed to be 2/2 DM/Htn on HD MWF at [facility] HD today HD access: LA AVG EDW: 59 kgs Renal + DM diet Nephro-yani po daily Monitor renal panel # Hyperkalemia Resolved HD + renal diet as above # Htn Cont current BP med regimen # Anemia, thrombocytopenia S/p PRBC Cont epogen # COPD Per primary team # Chronic back pain Per primary team # Dispo Dc plan to SNF ongoing Will transition outpt HD permanently to [facility] in [place] after hospital dc Physician Review: Patient Assessed, Agree with Above Assessment and Plan
--- NOTE | 2021-03-03 19:09 | P.PN ---
Subjective Date of Service: 03/01/21 Awaiting placement; continue with dialysis per Nephrology. Patient with vasculopathy. Poorly-controlled diabetes with numerous complications. patient difficulty seeing; ESRD; will go to SNF once patient is accepted. Review of Systems is unable to be obtained Physical Examination - Vital Signs Temperature: 97.9 F Blood Pressure: 134/53 Pulse: 61 Respirations: 20 Pulse Ox (%): 92 - Physical Exam General: Alert, Confused HEENT: Atraumatic, Normocephalic Respiratory: Clear to auscultation bilaterally, Normal air movement Cardiovascular: Regular rate/rhythm, Normal S1 S2, No murmurs Gastrointestinal: Normal bowel sounds, Soft and benign, Non-distended, No tenderness, No rebound, No guarding Musculoskeletal: No clubbing, No swelling Integumentary: No rashes Neurological: Normal gait - Studies Medications List Reviewed: Yes Assessment & Plan - Problems (Diagnosis) (1) Volume overload Current Visit: Yes Status: Acute (2) Hyperkalemia Current Visit: Yes Status: Acute (3) COPD exacerbation Current Visit: No Status: Acute (4) CVA (cerebrovascular accident) Current Visit: No Status: Acute (5) Peripheral arterial disease Current Visit: No Status: Acute (6) CHF (congestive heart failure) Current Visit: No Status: Chronic Qualifiers: Heart failure type: unspecified Heart failure chronicity: chronic Qualified Code(s): I50.9 - Heart failure, unspecified (7) COPD (chronic obstructive pulmonary disease) Current Visit: No Status: Chronic (8) End stage renal disease Current Visit: No Status: Chronic (9) HLD (hyperlipidemia) Current Visit: No Status: Chronic Qualifiers: Hyperlipidemia type: unspecified Qualified Code(s): E78.5 - Hyperlipidemia, unspecified (10) Hypertension Current Visit: No Status: Chronic Qualifiers: Hypertension type: essential hypertension (11) Foot ulcer, left Current Visit: No Status: Resolved - Plan Plan: 1. Continue hemodialysis per Nephrology 2. Awaiting for care home placement 3. Continue with antibiotic therapy 4. Strict blood pressure and blood sugar control 5. Physical therapy evaluation 6. Arterial Doppler; repeat Consult cardiology if significant PAD 7. Monitor labs closely 8. GI and DVT prophylaxis Discharge Plan: Home Plan to discharge in: Greater than 2 days - Advance Directives Does patient have a Living Will: No Does patient have a Durable POA for Healthcare: No - Code Status/Comfort Care Code Status: Full Code Physician Review: Patient Assessed, Agree with Above Assessment and Plan Critical Care: No Time Spent Managing PTS Care (In Minutes): 35
[2021-03-03] MEDS: LOPERAMIDE HCL 2 MG CAPSULE PO PRN (21:56)
[2021-03-04 06:02] LABS: Hematocrit 28.1 % (39.6-49.0); Lymphocytes % 7.5 % (15.3-44.8); RBC Red Blood Cell Count 2.96 M/uL (4.33-5.43)
[2021-03-04] MEDS: PANTOPRAZOLE 40MG TABLET PO SCH (06:23)
[2021-03-04 06:25] LABS: ALT/SGPT 12 U/L (12-78); AST/SGOT 26 U/L (15-37); Albumin 1.3 g/dL (3.4-5.0); Alkaline Phosphatase 251 U/L (45-117); BUN Blood Urea Nitrogen 30 mg/dL (7-18); Bicarbonate 30 mmol/L (21-32); Bilirubin Total 1.5 mg/dL (0.2-1.0); Glucose Level 96 mg/dL (74-106); Magnesium 2.2 mg/dL (1.8-2.4); Potassium 4.1 mmol/L (3.5-5.1); Protein, Total 5.6 g/dL (6.4-8.2); Sodium Level 139 mmol/L (136-145)
[2021-03-04 06:43] LABS: NT PRO-BNP > 175000 pg/mL (<125)
[2021-03-04 06:55] LABS: Blood Morphology Comment NOT SEEN (NOT SEEN); Platelet Estimate DECR; White Blood Cell Scan OK (OK)
[2021-03-04] MEDS: INSULIN -REGULAR HUMAN 50 UNIT/0.5 ML ML SQ SCH ×4 (07:30→21:00)
[2021-03-04] MEDS: DULERA 100/5 (MOMETASONE/FORMOTEROL) INHALER IH SCH ×2 (09:00→22:23)
[2021-03-04] MEDS: carvediloL 6.25 MG TAB PO SCH ×2 (09:36→17:00)
[2021-03-04] MEDS: MULTIVITAMINS,THERAPEUT 1 TAB PO SCH (09:36)
[2021-03-04] MEDS: ROPINIROLE HCL 1 MG TAB PO SCH (09:36)
[2021-03-04] MEDS: AMLODIPINE 10 MG TAB PO SCH (09:37)
[2021-03-04] MEDS: ASPIRIN EC 81 MG TAB PO SCH (09:37)
[2021-03-04] MEDS: SEVELAMER CARBONATE 800 MG TABLET PO SCH ×3 (09:37→17:00)
[2021-03-04] MEDS: LACTOBACILLUS/ACIDOPHILUS TAB PO SCH ×3 (09:37→22:24)
[2021-03-04] MEDS: ENOXAPARIN 30 MG/0.3 ML SQ SCH (09:37)
[2021-03-04] MEDS: FOLIC ACID 1 MG TABLET PO SCH (09:37)
[2021-03-04] MEDS: HYDRALAZINE HCL 25 MG TABLET PO SCH ×2 (09:37→22:25)
[2021-03-04] MEDS: lisinopriL 20 MG TAB PO SCH (09:37)
[2021-03-04] MEDS: CLONIDINE HCL 0.3 MG TAB PO SCH ×3 (09:37→22:24)
[2021-03-04] MEDS: GABAPENTIN 300 MG CAP PO SCH ×3 (09:38→22:24)
[2021-03-04] MEDS: NEPRO SHAKE 237 ML CAN PO SCH ×2 (09:38→21:00)
[2021-03-04] MEDS: LOPERAMIDE HCL 2 MG CAPSULE PO PRN (11:21)
--- NOTE | 2021-03-04 11:33 | RAD REPORT ---
EXAM DESCRIPTION: US - Upper Ext Artery Bilateral - 03/04/2021 11:01 am CLINICAL HISTORY: poor circulation Arm pain and swelling. COMPARISON: Upper Lower Extrem Art Multi dated 02/17/2021 FINDINGS: Bilateral upper extremity grayscale, color and spectral arterial Doppler was performed. There is evidence of a fistula between the left brachial and cephalic vein in the left forearm. This fistula appears patent with continuous turbulent flow. A mild steal phenomenon may be present as the left radial and ulnar arteries show widened spectral waveforms. No significant right-sided arterial flow abnormality seen. IMPRESSION: Patent left-sided fistula is present in the forearm. A mild steal phenomenon may be pres ent diminishing flow to the left wrist and hand as detailed.
--- NOTE | 2021-03-04 12:15 | P.PN ---
Subjective Date of Service: 03/04/21 Primary Care Provider: None, nephrology Dr. Rand Chief Complaint: Hyperkalemia Subjective: No new changes Physical Examination - Vital Signs Temperature: 98.5 F Blood Pressure: 149/65 Pulse: 61 Respirations: 18 Pulse Ox (%): 95 - Physical Exam General: Other (Appears chronically ill) HEENT: Atraumatic, Normocephalic Neck: Supple, JVD not distended Respiratory: Other (Symmetric chest expansion) Cardiovascular: No rubs, No murmurs Gastrointestinal: Soft and benign Musculoskeletal: No clubbing Integumentary: No warmth Neurological: Normal tone Urinary: Other (No bladder distention) External genitalia: Deferred Rectal: Deferred - Studies Medications List Reviewed: Yes Assessment And Plan - Plan # ESRD presumed to be 2/2 DM/Htn on HD MWF at [facility] HD received yesterday Next HD tomorrow HD access: [place] AVG EDW: 59 kgs Renal + DM diet Nephro-yani po daily Monitor renal panel # Hyperkalemia Resolved HD + renal diet as above # Htn BP at goal Cont current BP med regimen # Anemia, thrombocytopenia H/H below goal S/p PRBC transf Cont epogen qMWF # COPD Per primary team # Chronic back pain Per primary team # Dispo Dc plan to SNF on 03/06/21 Will transition outpt HD permanently to [facility] in [place] after hospital dc Physician Review: Patient Assessed, Agree with Above Assessment and Plan
[2021-03-04] MEDS: HYDROCODONE/APAP 10/325 TAB PO PRN (15:29)
[2021-03-04] MEDS ORDERED: EPOETIN ALFA-EPBX 4,000 UNIT/ML VIAL SQ ONE (20:00)
--- NOTE | 2021-03-05 04:46 | P.PN ---
Subjective Date of Service: 03/05/21 Primary Care Provider: None, nephrology Dr. Rand Chief Complaint: Hyperkalemia Subjective: No new changes Physical Examination - Vital Signs Temperature: 98.0 F Blood Pressure: 138/51 Pulse: 59 Respirations: 17 Pulse Ox (%): 94 - Physical Exam General: Other (appears chronically ill) HEENT: Atraumatic, Normocephalic Neck: Supple Respiratory: Clear to auscultation bilaterally Cardiovascular: No rubs, No murmurs Gastrointestinal: Soft and benign, No guarding Musculoskeletal: No clubbing Integumentary: No warmth Neurological: Normal tone Urinary: Other (no bladder distention) External genitalia: Deferred Rectal: Deferred - Studies Medications List Reviewed: Yes Assessment And Plan - Plan # ESRD presumed to be 2/2 DM/Htn on HD MWF at [facility] HD attempted today but unable due to unsuccessful cannulation HD tomorrow HD access: LA AVG EDW: 59 kgs Renal + DM diet Nephro-yani po daily Monitor renal panel # Hyperkalemia Resolved HD + renal diet as above # Htn BP at goal Cont current BP med regimen # Anemia, thrombocytopenia H/H below goal S/p PRBC transf Cont epogen qMWF # COPD Per primary team # Chronic back pain Per primary team # Dispo Goals of care discussion ongoing Dc plan to SNF on 03/06/21 Will transition outpt HD permanently to [facility] in [place] after hospital dc Physician Review: Patient Assessed, Agree with Above Assessment and Plan
[2021-03-05] MEDS: PANTOPRAZOLE 40MG TABLET PO SCH (06:00)
[2021-03-05] MEDS: HYDROCODONE/APAP 10/325 TAB PO PRN ×2 (06:20→23:36)
[2021-03-05] MEDS: INSULIN -REGULAR HUMAN 50 UNIT/0.5 ML ML SQ SCH ×4 (07:30→20:36)
[2021-03-05] MEDS: MULTIVITAMINS,THERAPEUT 1 TAB PO SCH (08:17)
[2021-03-05] MEDS: ROPINIROLE HCL 1 MG TAB PO SCH (08:17)
[2021-03-05] MEDS: ENOXAPARIN 30 MG/0.3 ML SQ SCH (08:17)
[2021-03-05] MEDS: SEVELAMER CARBONATE 800 MG TABLET PO SCH ×3 (08:18→17:12)
[2021-03-05] MEDS: carvediloL 6.25 MG TAB PO SCH ×2 (08:18→17:09)
[2021-03-05] MEDS: HYDRALAZINE HCL 25 MG TABLET PO SCH ×2 (08:18→20:34)
[2021-03-05] MEDS: GABAPENTIN 300 MG CAP PO SCH ×3 (08:18→20:34)
[2021-03-05] MEDS: DULERA 100/5 (MOMETASONE/FORMOTEROL) INHALER IH SCH ×2 (08:19→20:35)
[2021-03-05] MEDS: CLONIDINE HCL 0.3 MG TAB PO SCH ×3 (08:19→20:34)
[2021-03-05] MEDS: ASPIRIN EC 81 MG TAB PO SCH (08:19)
[2021-03-05] MEDS: SODIUM HYPOCHLORITE 0.25% 473 ML TOP SCH (08:19)
[2021-03-05] MEDS: NEPRO SHAKE 237 ML CAN PO SCH ×2 (08:20→20:42)
[2021-03-05] MEDS: LACTOBACILLUS/ACIDOPHILUS TAB PO SCH ×3 (08:20→20:34)
[2021-03-05] MEDS: FOLIC ACID 1 MG TABLET PO SCH (08:20)
[2021-03-05] MEDS: AMLODIPINE 10 MG TAB PO SCH (08:21)
[2021-03-05] MEDS: lisinopriL 20 MG TAB PO SCH (08:21)
[2021-03-05] MEDS: COLLAGENASE 30 GM OINTMENT TOP SCH (08:21)
[2021-03-06 03:00] VITALS: O2SAT 94
[2021-03-06] MEDS: PANTOPRAZOLE 40MG TABLET PO SCH (05:32)
[2021-03-06] MEDS: LOPERAMIDE HCL 2 MG CAPSULE PO PRN ×2 (05:32→10:44)
--- NOTE | 2021-03-06 06:05 | P.PN ---
Subjective Date of Service: 03/06/21 Primary Care Provider: None, nephrology Dr. Rand Chief Complaint: Hyperkalemia Subjective: Other (Received HD today.) Physical Examination - Vital Signs Temperature: 98.0 F Blood Pressure: 138/51 Pulse: 59 Respirations: 17 Pulse Ox (%): 94 - Physical Exam General: Other (chronically ill looking) HEENT: Atraumatic, Normocephalic Neck: Supple, JVD not distended Respiratory: Diminished Cardiovascular: No rubs, No murmurs Gastrointestinal: Soft and benign, No guarding Musculoskeletal: No clubbing Integumentary: No warmth Neurological: Normal speech, Normal tone Urinary: Other (No bladder distention) External genitalia: Deferred Rectal: Deferred - Studies Medications List Reviewed: Yes Assessment And Plan - Plan # ESRD presumed to be 2/2 DM/Htn on HD MWF at [facility] HD received today HD access: [place] AVG EDW: 59 kgs Renal + DM diet Nephro-yani po daily Monitor renal panel # Hyperkalemia Resolved HD + renal diet as above # Htn BP at goal Cont current BP med regimen # Anemia, thrombocytopenia H/H below goal S/p PRBC transf Cont epogen qMWF # COPD Per primary team # Chronic back pain Per primary team # Dispo Dc plan to SNF w/ hospice & no dialysis per family Physician Review: Patient Assessed, Agree with Above Assessment and Plan
[2021-03-06] MEDS: INSULIN -REGULAR HUMAN 50 UNIT/0.5 ML ML SQ SCH ×2 (07:30→11:30)
[2021-03-06] MEDS: SEVELAMER CARBONATE 800 MG TABLET PO SCH ×3 (08:00→16:12)
[2021-03-06] MEDS: carvediloL 6.25 MG TAB PO SCH ×2 (08:00→16:08)
[2021-03-06] MEDS: GABAPENTIN 300 MG CAP PO SCH ×2 (09:00→16:12)
[2021-03-06] MEDS: DULERA 100/5 (MOMETASONE/FORMOTEROL) INHALER IH SCH (09:00)
[2021-03-06] MEDS: SODIUM HYPOCHLORITE 0.25% 473 ML TOP SCH (09:00)
[2021-03-06] MEDS: NEPRO SHAKE 237 ML CAN PO SCH (09:00)
[2021-03-06] MEDS: CLONIDINE HCL 0.3 MG TAB PO SCH ×2 (09:00→16:11)
[2021-03-06] MEDS: COLLAGENASE 30 GM OINTMENT TOP SCH (09:00)
[2021-03-06] MEDS: LACTOBACILLUS/ACIDOPHILUS TAB PO SCH ×2 (09:00→16:10)
[2021-03-06] MEDS: HYDROCODONE/APAP 10/325 TAB PO PRN ×2 (10:44→16:11)
[2021-03-06] MEDS: EPOETIN 4,000 UNIT/ML VIAL IV SCH (12:45)
--- NOTE | 2021-03-06 14:17 | P.PN ---
Date of Service: 03/02/21 Subjective Patient continues to show no significant improvement. Continue with hemodialysis. strict blood pressure control. Poor prognosis long-term Review of Systems 10-point ROS is otherwise unremarkable Physical Examination - Vital Signs Reviewed - Physical Exam General: Alert, In no apparent distress Respiratory: Clear to auscultation bilaterally, Normal air movement Cardiovascular: Regular rate/rhythm, Normal S1 S2, Systolic murmur Gastrointestinal: Normal bowel sounds, Soft and benign, Non-distended, No tenderness Neurological: No focal deficits Assessment & Plan - Problems (Diagnosis) (1) Volume overload Current Visit: Yes Status: Acute (2) Hyperkalemia Current Visit: Yes Status: Acute (3) COPD exacerbation Current Visit: No Status: Acute (4) CVA (cerebrovascular accident) Current Visit: No Status: Acute (5) Peripheral arterial disease Current Visit: No Status: Acute (6) CHF (congestive heart failure) Current Visit: No Status: Chronic Qualifiers: Heart failure type: unspecified Heart failure chronicity: chronic Qualified Code(s): I50.9 - Heart failure, unspecified (7) COPD (chronic obstructive pulmonary disease) Current Visit: No Status: Chronic (8) End stage renal disease Current Visit: No Status: Chronic (9) HLD (hyperlipidemia) Current Visit: No Status: Chronic Qualifiers: Hyperlipidemia type: unspecified Qualified Code(s): E78.5 - Hyperlipidemia, unspecified (10) Hypertension Current Visit: No Status: Chronic Qualifiers: Hypertension type: essential hypertension (11) Foot ulcer, left Current Visit: No Status: Resolved - Plan Continue with plan of care as mentioned below: 1. Continue hemodialysis per Nephrology 2. Awaiting for [facility] placement; awaiting Cardiology input regarding peripheral arterial disease 3. Continue with antibiotic therapy 4. Strict blood pressure and blood sugar control 5. Physical therapy continued 6. Arterial Doppler with significant PAD; continue with anticoagulation 7. Monitor labs closely 8. GI and DVT prophylaxis
--- NOTE | 2021-03-06 14:19 | P.PN ---
Date of Service: 03/03/21 Subjective Patient with no significant improvement. [facility]ing [facility] bed placement at [facility]. Review of Systems 10-point ROS is otherwise unremarkable Physical Examination - Vital Signs Reviewed - Physical Exam General: Alert, In no apparent distress Respiratory: Clear to auscultation bilaterally, Normal air movement Cardiovascular: Regular rate/rhythm, Normal S1 S2, Systolic murmur Gastrointestinal: Normal bowel sounds, Soft and benign, Non-distended, No tenderness Neurological: No focal deficits Assessment & Plan - Problems (Diagnosis) (1) Volume overload Current Visit: Yes Status: Acute (2) Hyperkalemia Current Visit: Yes Status: Acute (3) COPD exacerbation Current Visit: No Status: Acute (4) CVA (cerebrovascular accident) Current Visit: No Status: Acute (5) Peripheral arterial disease Current Visit: No Status: Acute (6) CHF (congestive heart failure) Current Visit: No Status: Chronic Qualifiers: Heart failure type: unspecified Heart failure chronicity: chronic Qualified Code(s): I50.9 - Heart failure, unspecified (7) COPD (chronic obstructive pulmonary disease) Current Visit: No Status: Chronic (8) End stage renal disease Current Visit: No Status: Chronic (9) HLD (hyperlipidemia) Current Visit: No Status: Chronic Qualifiers: Hyperlipidemia type: unspecified Qualified Code(s): E78.5 - Hyperlipidemia, unspecified (10) Hypertension Current Visit: No Status: Chronic Qualifiers: Hypertension type: essential hypertension (11) Foot ulcer, left Current Visit: No Status: Resolved - Plan Continue with plan of care as mentioned below: 1. Continue hemodialysis per Nephrology 2. Awaiting for senior care placement; awaiting Cardiology input regarding peripheral arterial disease; multiple areas of dry gangrene; poor prognosis 3. Continue with antibiotic therapy 4. Strict blood pressure and blood sugar control 5. Physical therapy continued 6. Arterial Doppler with significant PAD; continue with anticoagulation 7. Monitor labs closely 8. GI and DVT prophylaxis
--- NOTE | 2021-03-06 14:21 | P.PN ---
Date of Service: 03/04/21 Subjective Spoke with family. They are contemplating hospice care. They are moving patient to [place], [place]. Anticipate transfer over the next 48 hr Review of Systems 10-point ROS is otherwise unremarkable Physical Examination - Vital Signs Reviewed - Physical Exam General: Alert, In no apparent distress Respiratory: Clear to auscultation bilaterally, Normal air movement Cardiovascular: Regular rate/rhythm, Normal S1 S2, Systolic murmur Gastrointestinal: Normal bowel sounds, Soft and benign, Non-distended, No t enderness Neurological: No focal deficits Assessment & Plan - Problems (Diagnosis) (1) Volume overload Current Visit: Yes Status: Acute (2) Hyperkalemia Current Visit: Yes Status: Acute (3) COPD exacerbation Current Visit: No Status: Acute (4) CVA (cerebrovascular accident) Current Visit: No Status: Acute (5) Peripheral arterial disease Current Visit: No Status: Acute (6) CHF (congestive heart failure) Current Visit: No Status: Chronic Qualifiers: Heart failure type: unspecified Heart failure chronicity: chronic Qualified Code(s): I50.9 - Heart failure, unspecified (7) COPD (chronic obstructive pulmonary disease) Current Visit: No Status: Chronic (8) End stage renal disease Current Visit: No Status: Chronic (9) HLD (hyperlipidemia) Current Visit: No Status: Chronic Qualifiers: Hyperlipidemia type: unspecified Qualified Code(s): E78.5 - Hyperlipidemia, unspecified (10) Hypertension Current Visit: No Status: Chronic Qualifiers: Hypertension type: essential hypertension (11) Foot ulcer, left Current Visit: No Status: Resolved - Plan Continue with plan of care as mentioned below: 1. Continue hemodialysis per Nephrology 2. Awaiting for detention placement; awaiting Cardiology input regarding peripheral arterial disease; multiple areas of dry gangrene; poor prognosis 3. Will start oral antibiotics 4. Strict blood pressure and blood sugar control 5. Physical therapy continued; patient not really participating well. Prognosis is poor. 6. Arterial Doppler with significant PAD; continue with anticoagulation 7. Monitor labs closely 8. GI and DVT prophylaxis
--- NOTE | 2021-03-06 14:22 | P.PN ---
Date of Service: 03/05/21 Subjective Patient clinical symptoms worsening. Poor prognosis. Family to proceed with hospice care at shelter facility if not improving. Review of Systems 10-point ROS is otherwise unremarkable Physical Examination - Vital Signs Reviewed - Physical Exam General: Alert, In no apparent distress Respiratory: Clear to auscultation bilaterally, Normal air movement Cardiovascular: Regular rate/rhythm, Normal S1 S2, Systolic murmur Gastrointestinal: Normal bowel sounds, Soft and benign, Non-distended, No t enderness Neurological: No focal deficits Assessment & Plan - Problems (Diagnosis) (1) Volume overload Current Visit: Yes Status: Acute (2) Hyperkalemia Current Visit: Yes Status: Acute (3) COPD exacerbation Current Visit: No Status: Acute (4) CVA (cerebrovascular accident) Current Visit: No Status: Acute (5) Peripheral arterial disease Current Visit: No Status: Acute (6) CHF (congestive heart failure) Current Visit: No Status: Chronic Qualifiers: Heart failure type: unspecified Heart failure chronicity: chronic Qualified Code(s): I50.9 - Heart failure, unspecified (7) COPD (chronic obstructive pulmonary disease) Current Visit: No Status: Chronic (8) End stage renal disease Current Visit: No Status: Chronic (9) HLD (hyperlipidemia) Current Visit: No Status: Chronic Qualifiers: Hyperlipidemia type: unspecified Qualified Code(s): E78.5 - Hyperlipidemia, unspecified (10) Hypertension Current Visit: No Status: Chronic Qualifiers: Hypertension type: essential hypertension (11) Foot ulcer, left Current Visit: No Status: Resolved - Plan Continue with plan of care as mentioned below: 1. Continue hemodialysis per Nephrology in a.m. 2. Awaiting for longterm placement; awaiting hospice care placement if not improving 3. Will start oral antibiotics 4. Strict blood pressure and blood sugar control 5. Physical therapy continued; patient not really participating well. Prognosis is poor. 6. Arterial Doppler with significant PAD; continue with anticoagulation 7. GI and DVT prophylaxis
--- NOTE | 2021-03-06 14:23 | P.DS ---
Discharge Date: 03/06/21 Primary Care Provider: None, nephrology Dr. Rand Disposition: TRANSFER TO HALF-WAY Discharge Condition: GOOD Reason for Admission: Hyperkalemia - Problems (1) Volume overload Current Visit: Yes Status: Acute (2) Hyperkalemia Current Visit: Yes Status: Acute (3) COPD exacerbation Current Visit: No Status: Acute (4) CVA (cerebrovascular accident) Current Visit: No Status: Acute (5) Peripheral arterial disease Current Visit: No Status: Acute (6) CHF (congestive heart failure) Current Visit: No Status: Chronic Qualifiers: Heart failure type: unspecified Heart failure chronicity: chronic Qualified Code(s): I50.9 - Heart failure, unspecified (7) COPD (chronic obstructive pulmonary disease) Current Visit: No Status: Chronic (8) End stage renal disease Current Visit: No Status: Chronic (9) HLD (hyperlipidemia) Current Visit: No Status: Chronic Qualifiers: Hyperlipidemia type: unspecified Qualified Code(s): E78.5 - Hyperlipidemia, unspecified (10) Hypertension Current Visit: No Status: Chronic Qualifiers: Hypertension type: essential hypertension (11) Foot ulcer, left Current Visit: No Status: Resolved Brief History of Present Illness: Patient was admitted for fluid overload and for hemodialysis. Patient has significant peripheral arterial disease. Patient be admitted for hemodialysis. Cardiology consultation. Hospital Course: Patient presented with bradycardia, hyperkalemia secondary to end-stage renal disease on hemodialysis with poor compliance. Patient admitted for treatment. Patient received dialysis with improvement. Compliance with dialysis was addressed in detail. Patient reported noncompliance due to his chronic back pain. Medications restarted. Patient has significantly improved. At discharge compliance with dialysis addressed in detail. Patient will continue with dialysis every Monday, Monday and Monday. Patient will continue with Sevelamer 800 mg daily and folic acid 1 mg daily. Follow-up for hemodialysis if family decides against hospice care. Patient reported increased back pain and generalized weakness. Patient with history of degenerative disc and joint disease. Patient with history of spinal stimulator. Home medications restarted. Pain improved. Patient was evaluated by physical therapy. Consideration for skilled placement was addressed. Patient will go to [facility]. At discharge patient will continue with his current medications of Zanaflex 4 mg twice daily as needed for muscle spasm, gabapentin 300 mg 1 pill twice daily, and hydrocodone as needed for pain. Patient is seen by pain management in [place]. Recommend follow-up with pain management in 1 to 2 weeks to continue his care. Patient with diabetes mellitus type 2. Blood sugar well controlled. Previous A1c 5.8 in July 2020. Recommend to recheck hemoglobin A1c in 1 week to monitor his progress. Continue with ADA diet. Recommend to maintain blood sugar less than 140 fasting and less than 200 after meals. Recommend follow-up with PCP to further monitor and address. Patient with hypertension. Blood pressure was uncontrolled. Patient reports blood pressure is not well controlled at home. This improved with dialysis and adjustment in his medication. Lisinopril was increased for better control. Carvedilol was added. At discharge patient will continue with lisinopril 40 mg daily, clonidine 0.3 mg 3 times a day, and carvedilol 12.5 mg 1 pill twice daily. Recommend to maintain blood pressure less than 130/80. If blood pressure remains above 140/90 additional medication may be required. This can be done with the help of his PCP or nephrology. Patient with COPD. At discharge patient may continue with Dulera 2 puff twice daily and albuterol 2 puffs 3 times a day as needed for shortness of breath. Patient with underlying GERD. Patient may continue with Protonix 40 mg daily. Patient with restless leg syndrome. At discharge patient will continue with Requip 5 mg daily. Patient with anemia of chronic disease with chronic thrombocytopenia. This can be monitored closely as an outpatient. Recommend no further use of nonsteroidal anti-inflammatories. Recheck CBC in 2 to 4 weeks to monitor his progress. Patient with chronic liver cirrhosis. Overall stable. This can be monitored as an outpatient. Recommend follow-up with GI as an outpatient. No further alcohol use is recommended. At discharge patient will continue with lactulose twice daily to maintain 2-3 bowel movements per day. Patient's family has decided to make patient a do not resuscitate. Patient's daughter is medical prior of senior trial attorney. Patient will be a do not resuscitate and will proceed with hospice care if he is not improving. There are agreeable with not doing hemodialysis. Vital Signs/Physical Exam: Temp Pulse Resp BP Pulse Ox 97.9 F 61 20 134/53 L 92 03/06/21 14:14 03/06/21 14:14 03/06/21 14:14 03/06/21 14:14 03/06/21 14:14 General: Confused Laboratory Data at Discharge: WBC 13.10 K/uL (4.3-10.9) H 03/04/21 05:41 Hgb 8.9 g/dL (13.6-17.9) L 03/04/21 05:41 Hct 28.1 % (39.6-49.0) L 03/04/21 05:41 Plt Count 87 K/uL (152-406) L 03/04/21 05:41 PT 13.2 SECONDS (9.5-12.5) H 02/11/21 21:28 INR 1.15 02/11/21 21:28 Sodium 139 mmol/L (136-145) 03/04/21 05:41 Potassium 4.1 mmol/L (3.5-5.1) 03/04/21 05:41 BUN 30 mg/dL (7-18) H D 03/04/21 05:41 Creatinine 3.04 mg/dL (0.55-1.3) H D 03/04/21 05:41 Glucose 96 mg/dL (74-106) 03/04/21 05:41 Phosphorus 2.0 mg/dL (2.5-4.9) L 03/04/21 05:41 Magnesium 2.2 mg/dL (1.8-2.4) 03/04/21 05:41 Total Bilirubin 1.5 mg/dL (0.2-1.0) H 03/04/21 05:41 AST 26 U/L (15-37) 03/04/21 05:41 ALT 12 U/L (12-78) 03/04/21 05:41 Alkaline Phosphatase 251 U/L (45-117) H D 03/04/21 05:41 Home Medications: Folic Acid 1 mg PO DAILY #30 tablet 01/23/21 Albuterol Sulfate [Albuterol Sulfate Hfa] 1 puff NEB Q6HR 02/12/21 Gabapentin 300 mg PO BID 02/12/21 Hydrocodone/Acetaminophen [Hydrocodone-Acetamin 10-325 mg] 1 each PO Q4HP PRN 02/12/21 Lactulose 20 gm PO BID 02/12/21 Ropinirole HCl 5 mg PO DAILY 02/12/21 Sevelamer Carbonate 1 tab PO DAILY 02/12/21 Tizanidine [Zanaflex*] 4 mg PO BID 02/12/21 cloNIDine HCL [Catapres*] 1 tab PO TID 02/12/21 Carvedilol [Coreg] 12.5 mg PO BID #60 tablet 02/13/21 Lisinopril [Zestril] 40 mg PO DAILY #30 tablet 02/13/21 Mometasone/Formoterol [Dulera 100 Mcg/5 Mcg Inhaler] 2 puff IH BID #1 inhaler 02/13/21 Pantoprazole [Protonix Tab] 40 mg PO DAILY #30 tab 02/13/21 New Medications: Carvedilol [Coreg] 12.5 mg PO BID #60 tablet Mometasone/Formoterol [Dulera 100 Mcg/5 Mcg Inhaler] 2 puff IH BID #1 inhaler Pantoprazole [Protonix Tab] 40 mg PO DAILY #30 tab Lisinopril [Zestril] 40 mg PO DAILY #30 tablet Physician Discharge Instructions: Patient presented with bradycardia, hyperkalemia secondary to end-stage renal disease on hemodialysis with poor compliance. Patient admitted for treatment. Patient received dialysis with improvement. Compliance with dialysis was addressed in detail. Patient reported noncompliance due to his chronic back pain. Medications restarted. Patient has significantly improved. At discharge compliance with dialysis addressed in detail. Patient will continue with dialysis every Monday, Monday and Monday. Patient will continue with Sevelamer 800 mg daily and folic acid 1 mg daily. Follow-up for hemodialysis if family decides against hospice care. Patient reported increased back pain and generalized weakness. Patient with history of degenerative disc and joint disease. Patient with history of spinal stimulator. Home medications restarted. Pain improved. Patient was evaluated by physical therapy. Consideration for skilled placement was addressed. Patient will go to [facility]. At discharge patient will continue with his current medications of Zanaflex 4 mg twice daily as needed for muscle spasm, gabapentin 300 mg 1 pill twice daily, and hydrocodone as needed for pain. Patient is seen by pain management in [place]. Recommend follow-up with pain management in 1 to 2 weeks to continue his care. Patient with diabetes mellitus type 2. Blood sugar well controlled. Previous A1c 5.8 in July 2020. Recommend to recheck hemoglobin A1c in 1 week to monitor his progress. Continue with ADA diet. Recommend to maintain blood sugar less than 140 fasting and less than 200 after meals. Recommend follow-up with PCP to further monitor and address. Patient with hypertension. Blood pressure was uncontrolled. Patient reports blood pressure is not well controlled at home. This improved with dialysis and adjustment in his medication. Lisinopril was increased for better control. Carvedilol was added. At discharge patient will continue with lisinopril 40 mg daily, clonidine 0.3 mg 3 times a day, and carvedilol 12.5 mg 1 pill twice daily. Recommend to maintain blood pressure less than 130/80. If blood pressur e remains above 140/90 additional medication may be required. This can be done with the help of his PCP or nephrology. Patient with COPD. At discharge patient may continue with Dulera 2 puff twice daily and albuterol 2 puffs 3 times a day as needed for shortness of breath. Patient with underlying GERD. Patient may continue with Protonix 40 mg daily. Patient with restless leg syndrome. At discharge patient will continue with Requip 5 mg daily. Patient with anemia of chronic disease with chronic thrombocytopenia. This can be monitored closely as an outpatient. Recommend no further use of nonsteroidal anti-inflammatories. Recheck CBC in 2 to 4 weeks to monitor his progress. Patient with chronic liver cirrhosis. Overall stable. This can be monitored as an outpatient. Recommend follow-up with GI as an outpatient. No further alcohol use is recommended. At discharge patient will continue with lactulose twice daily to maintain 2-3 bowel movements per day. Patient's family has decided to make patient a do not resuscitate. Patient's daughter is medical prior of senior trial attorney. Patient will be a do not resuscitate and will proceed with hospice care if he is not improving. There are agreeable with not doing hemodialysis. Diet: ADA Activity: Fall precautions Followup: NONE,NONE [Primary Care Provider] -
[2021-03-06 15:15] VITALS: BP 138/51
[2021-03-06] MEDS: lisinopriL 20 MG TAB PO SCH (16:09)
[2021-03-06] MEDS: ASPIRIN EC 81 MG TAB PO SCH (16:10)
[2021-03-06] MEDS: HYDRALAZINE HCL 25 MG TABLET PO SCH (16:10)
[2021-03-06] MEDS: AMLODIPINE 10 MG TAB PO SCH (16:11)
[2021-03-06] MEDS: FOLIC ACID 1 MG TABLET PO SCH (16:12)
[2021-03-06] MEDS: ENOXAPARIN 30 MG/0.3 ML SQ SCH (16:15)
[2021-03-06 16:55] VITALS: TEMP 98
== END 2021-03-06 17:30 | DRG 616 ==
LOC: ER 21:20 → ERHOLD 23:03 → 2ND 02-12 17:10
PROVIDERS: ADMIT Family Medicine; ATTEND Hospitalist
PROC: 5A1D70Z Performance of Urinary Filtration, Intermittent, Less than 6 Hours Per Day (ICD-10-PCS; 2021-02-12)
PROC: 30233N1 Transfusion of Nonautologous Red Blood Cells into Peripheral Vein, Percutaneous Approach (ICD-10-PCS; 2021-02-12)
PROC: 0Y6J0Z3 Detachment at Left Lower Leg, Low, Open Approach (ICD-10-PCS; principal; 2021-02-22 11:00)
DX: E87.5 Hyperkalemia (principal); N18.6 End stage renal disease; E43 Unspecified severe protein-calorie malnutrition; E11.52 Type 2 diabetes mellitus with diabetic peripheral angiopathy with gangrene; N25.81 Secondary hyperparathyroidism of renal origin; I13.2 Hypertensive heart and chronic kidney disease with heart failure and with stage 5 chronic kidney disease, or end stage renal disease; M31.9 Necrotizing vasculopathy, unspecified; J44.1 Chronic obstructive pulmonary disease with (acute) exacerbation; R64 Cachexia; E87.1 Hypo-osmolality and hyponatremia; R00.1 Bradycardia, unspecified; E11.22 Type 2 diabetes mellitus with diabetic chronic kidney disease; E11.649 Type 2 diabetes mellitus with hypoglycemia without coma; E11.42 Type 2 diabetes mellitus with diabetic polyneuropathy; E11.621 Type 2 diabetes mellitus with foot ulcer; L97.529 Non-pressure chronic ulcer of other part of left foot with unspecified severity; D63.1 Anemia in chronic kidney disease; I50.9 Heart failure, unspecified; E87.70 Fluid overload, unspecified; G89.29 Other chronic pain; M54.9 Dorsalgia, unspecified; K70.30 Alcoholic cirrhosis of liver without ascites; F17.210 Nicotine dependence, cigarettes, uncomplicated; G25.81 Restless legs syndrome; E78.5 Hyperlipidemia, unspecified; E11.59 Type 2 diabetes mellitus with other circulatory complications; D69.6 Thrombocytopenia, unspecified; K21.9 Gastro-esophageal reflux disease without esophagitis; Z91.15 Patient's noncompliance with renal dialysis; Z99.2 Dependence on renal dialysis; Z79.899 Other long term (current) drug therapy; Z96.652 Presence of left artificial knee joint; Z68.20 Body mass index [BMI] 20.0-20.9, adult; D72.829 Elevated white blood cell count, unspecified; R19.7 Diarrhea, unspecified; Z66 Do not resuscitate
CPT/HCPCS: 36415; 71045; 72100; 72191; 73706; 74175; 80048; 80053; 80069; 80076; 80202; 82947; 83036; 83605; 83735; 83880; 84100; 84145; 84439; 84443; 84484; 85014; 85018; 85025; 85610; 86140; 86850; 86900; 86901; 87040; 87205; 88307; 88311; 90935; 93005; 93923; 93930; 96365; 96366; 96375; 97110; 97161; 97164; 97530; 99285; J0360; J0610; J1170; J1644; J1650; J1940; J2270; J2405; J2543; J2704; J3010; J3370; J3590; J7040; J7042; J7050; J7606; P9016; P9047; Q5105; Q5106; Q9967; U0003